=== PATIENT | female | born 1950 | race Two or more races ===

== ENCOUNTER 2019-10-10 10:06 | Inpatient (IN) | payer MEDICARE, OTHER ==
[~2019-10-10] VITALS: Ht 162.6 cm; Wt 80.7 kg
[2019-10-10] VITALS (13 sets, daily range): BP systolic 136–171; BP diastolic 61–105
[2019-10-10] MEDS ORDERED: METFORMIN HCL500 M1 ORAL (10:12)
[2019-10-10] MEDS ORDERED: LISINOPRIL5 MG ORAL (10:12)
[2019-10-10] MEDS ORDERED: ATORVASTATIN CA20 MG ORAL (10:12)
[2019-10-10] MEDS ORDERED: HYDROCHLOROTH12.5 M2 ORAL (10:12)
[2019-10-10] MEDS ORDERED: Solu-MEDROL 125mg Inj IVP ONE (10:15)
[2019-10-10 10:33] LABS: BASOPHILS % (AUTO) 0.8 % (0.0-2.0); EOSINOPHILS % (AUTO) 0.8 % (0.0-3.0); HEMATOCRIT 32.2 % (37.0-47.0); LYMPHOCYTES % (AUTO) 19.4 % (20.0-45.0); MEAN CORPUSCULAR VOLUME 87 FL (80-99); MONOCYTES % (AUTO) 4.5 % (1.0-10.0); NEUTROPHILS % (AUTO) 74.5 % (45.0-75.0); PLATELET COUNT 322 K/UL (150-450); RED BLOOD COUNT 3.69 M/UL (4.20-5.40); RED CELL DISTRIBUTION WIDTH 13.8 % (11.6-14.8); WHITE BLOOD COUNT 13.5 K/UL (4.8-10.8)
[2019-10-10 10:44] LABS: INR 1.1 (0.9-1.1)
[2019-10-10 10:45] LABS: ANION GAP 16 mmol/L (5-15); BLOOD UREA NITROGEN 35 mg/dL (7-18); CALCIUM 8.9 MG/DL (8.5-10.1); CARBON DIOXIDE 19 MMOL/L (21-32); CHLORIDE 102 MMOL/L (98-107); CREATININE 1.9 MG/DL (0.55-1.30); SODIUM 137 MMOL/L (136-145)
[2019-10-10] MEDS: Ipratropium 0.02% Inh Soln 2.5ml UD HHN SCH ×2 (10:53→10:54)
[2019-10-10] MEDS: Albuterol ud Inhalation HHN SCH ×2 (10:53→10:54)
[2019-10-10 10:56] LABS: ALANINE AMINOTRANSFERASE 90 U/L (12-78); ALBUMIN 3.3 G/DL (3.4-5.0); ALBUMIN/GLOBULIN RATIO 0.7 (1.0-2.7); ALKALINE PHOSPHATASE 248 U/L (46-116); ASPARTATE AMINO TRANSFERASE 41 U/L (15-37); BILIRUBIN,TOTAL 0.7 MG/DL (0.2-1.0)
[2019-10-10] MEDS ORDERED: Piperacillin/Tazobactam 3.375 GM in NS 110 ML IVPB ONE (12:00)
[2019-10-10] MEDS ORDERED: Miralax 17gm pkt ORAL PRN (12:30)
[2019-10-10] MEDS ORDERED: Enalaprilat 2.5mg/2ml Inj IV PRN (12:30)
[2019-10-10] MEDS ORDERED: Albuterol/Ipratropium 3ml neb HHN PRN (12:30)
[2019-10-10] MEDS ORDERED: dilTIAZem HCl 25mg/5ml Inj IV PRN (12:30)
[2019-10-10] MEDS ORDERED: Nitroglycerin Subl 0.4mg tab SL PRN (12:30)
--- NOTE | 2019-10-10 12:55 | Emergency Room Report ---
History of Present Illness General Chief Complaint: Chest Pain Source: Patient, EMS Present Illness HPI Patient presents emergency department today complaining of 1 week of worsening shortness of breath that became worse over the last couple of days. Patient also complained of chest discomfort and some coughing. Because of this patient was brought here for further evaluation by paramedics. Patient symptoms are very severe. Patient states that she has not had this before. No other modifying factors. No other associated signs and symptoms. No other complaints were noted. Allergies: Coded Allergies: No Known Allergies (Unverified , 10/10/19) Patient History Past Medical History: DM, HTN Past Surgical History: none Pertinent Family History: none Social History: Denies: smoking, alcohol use, drug use Reviewed Nursing Documentation: PMH: Agreed; PSxH: Agreed Nursing Documentation-PMH Hx Hypertension: Yes Hx Diabetes: Yes Review of Systems All Other Systems: negative except mentioned in HPI Physical Exam Vital Signs Date Time Temp Pulse Resp B/P (MAP) Pulse Ox O2 Delivery O2 Flow Rate FiO2 10/10/19 10:00 99.0 89 18 162/99 (120) 94 10/10/19 10:27 Bi-pap 10/10/19 10:43 100 100 Sp02 EP Interpretation: reviewed, abnormal - low General Appearance: alert, severe distress Head: normocephalic, atraumatic Eyes: bilateral eye PERRL ENT: normal ENT inspection, normal voice Neck: normal inspection, supple, no bony tend Respiratory: respiratory distress, crackles - at bases, wheezing, expiration Cardiovascular #1: no edema, tachycardia Gastrointestinal: normal inspection, normal bowel sounds, non tender, soft, no guarding, no hernia Genitourinary: no CVA tenderness Musculoskeletal: normal inspection, back normal, normal range of motion Neurologic: alert, responsive, no focal defects Psychiatric: normal inspection, anxious Skin: no rash Procedures Critical Care Time Critical Care Time Patient had a critical medical condition which untreated could potentially result in life or limb threatening injury. Total critical care time excluding procedures was approximately 45 minutes. Medical Decision Making Diagnostic Impression: Primary Impression: Respiratory failure Additional Impression: CHF (congestive heart failure) ER Course Patient presents emergency department today complaining of shortness of breath. Differential diagnoses include acute pneumonia, CHF, acute coronary syndrome, pneumothorax, asthma, COPD flare, just to name a few. Given the severity of the patient's presentation I felt this is a highly complex patient. This patient required extensive workup. Patient presentation showed immediate respiratory distress required my immediate attention. Patient was started on albuterol Atrovent nebulizer treatment given her respiratory distress as well as placed on BiPAP. Patient appeared improved. Patient's chest x-ray does show evidence of pulmonary congestion with elevated BNP. Patient however appears comfortable on BiPAP. Patient's BUN/creatinine is already elevated. Therefore continue to monitor the patient. Case was discussed with admitting physician. Patient will be admitted to the ICU for further management. Patient is EKG shows evidence of left bundle branch block. Patient had elevated lactic acid level. However given the lack of fever it was unlikely that patient has sepsis although this is in the differential. Blood cultures were obtained and patient was started on IV antibiotics. Unfortunately because patient was already fluid overloaded with respiratory distress we cannot give patient fluid boluses despite an elevated lactic acid level. A focused sepsis exam was performed. This was performed at 1 PM. However I am uncertain the patient actually has sepsis. Patient will be admitted to the intensive care unit once a bed is available. Labs Test 10/10/19 10:13 10/10/19 10:15 Arterial Blood pH 7.329 (7.350-7.450) Arterial Blood Partial Pressure CO2 36.5 mmHg (35.0-45.0) Arterial Blood Partial Pressure O2 254.9 mmHg (75.0-100.0) Arterial Blood HCO3 18.8 mmol/L (22.0-26.0) Arterial Blood Oxygen Saturation 99.4 % (95-100) Arterial Blood Base Excess -6.5 (-2-2) Geoffrey Test Positive White Blood Count 13.5 K/UL (4.8-10.8) Red Blood Count 3.69 M/UL (4.20-5.40) Hemoglobin 10.0 G/DL (12.0-16.0) Hematocrit 32.2 % (37.0-47.0) Mean Corpuscular Volume 87 FL (80-99) Mean Corpuscular Hemoglobin 27.2 PG (27.0-31.0) Mean Corpuscular Hemoglobin Concent 31.1 G/DL (32.0-36.0) Red Cell Distribution Width 13.8 % (11.6-14.8) Platelet Count 322 K/UL (150-450) Mean Platelet Volume 7.2 FL (6.5-10.1) Neutrophils (%) (Auto) 74.5 % (45.0-75.0) Lymphocytes (%) (Auto) 19.4 % (20.0-45.0) Monocytes (%) (Auto) 4.5 % (1.0-10.0) Eosinophils (%) (Auto) 0.8 % (0.0-3.0) Basophils (%) (Auto) 0.8 % (0.0-2.0) Prothrombin Time 11.8 SEC (9.30-11.50) Prothromb Time International Ratio 1.1 (0.9-1.1) Activated Partial Thromboplast Time 26 SEC (23-33) Sodium Level 137 MMOL/L (136-145) Potassium Level 4.0 MMOL/L (3.5-5.1) Chloride Level 102 MMOL/L (98-107) Carbon Dioxide Level 19 MMOL/L (21-32) Anion Gap 16 mmol/L (5-15) Blood Urea Nitrogen 35 mg/dL (7-18) Creatinine 1.9 MG/DL (0.55-1.30) Estimat Glomerular Filtration Rate 26.3 mL/min (>60) Glucose Level 436 MG/DL (74-106) Lactic Acid Level 5.40 mmol/L (0.4-2.0) Calcium Level 8.9 MG/DL (8.5-10.1) Total Bilirubin 0.7 MG/DL (0.2-1.0) Aspartate Amino Transf (AST/SGOT) 41 U/L (15-37) Alanine Aminotransferase (ALT/SGPT) 90 U/L (12-78) Alkaline Phosphatase 248 U/L (46-116) Troponin I 0.008 ng/mL (0.000-0.056) Pro-B-Type Natriuretic Peptide 85401 pg/mL (0-125) Total Protein 8.1 G/DL (6.4-8.2) Albumin 3.3 G/DL (3.4-5.0) Globulin 4.8 g/dL Albumin/Globulin Ratio 0.7 (1.0-2.7) Lipase 236 U/L (73-393) EKG Diagnostic Results Rate: tachycardiac Rhythm: NSR ST Segments: other - lbbb Rhythm Strip Diag. Results EP Interpretation: yes Rate: 110s Rhythm: NSR, no PVC's, no ectopy Chest X-Ray Diagnostic Results Chest X-Ray Diagnostic Results : Chest X-Ray Ordered: Yes # of Views/Limited/Complete: 1 View Indication: Shortness of Breath EP Interpretation: Yes Interpretation: no consolidation, other - Pulmonary congestion, cardiomegaly , costophrenic angle blunting. Impression: Other - Acute CHF Electronically Signed by: Electronically signed by Yony Olivas MD Last Vital Signs Date Time Temp Pulse Resp B/P (MAP) Pulse Ox O2 Delivery O2 Flow Rate FiO2 10/10/19 12:20 97.8 85 17 137/81 100 Bi-pap 10/10/19 11:13 100 Status: improved Disposition: ADMITTED INPATIENT Condition: Critical Referrals: ROBERTA MCKENZIE,REFERRING (PCP) Yony Olivas MD Oct 10, 2019 12:55
[2019-10-10 14:07] LABS: APPEARANCE,URINE CLEAR; BILIRUBIN, URINE NEGATIVE (NEGATIVE); COLOR,URINE PALE YELLOW; GLUCOSE, URINE (UA) 4+ (NEGATIVE); KETONES,URINE NEGATIVE (NEGATIVE); LEUKOCYTE ESTERASE ,URINE NEGATIVE (NEGATIVE); NITRITE,URINE NEGATIVE (NEGATIVE); PH,URINE 5 (4.5-8.0); PROTEIN,URINE 4+ (NEGATIVE); UROBILINOGEN,URINE NORMAL MG/DL (0.0-1.0)
--- NOTE | 2019-10-10 16:25 | Consultation ---
Consult Note Consult Note asked to eval for high Cr Patient seen in ICU room E. On BIPAP discussed with RN Chief Complaint: Chest Pain Patient presents emergency department today complaining of 1 week of worsening shortness of breath that became worse over the last couple of days. Patient also complained of chest discomfort and some coughing. Because of this patient was brought here for further evaluation by paramedics. Patient symptoms are very severe. Patient states that she has not had this before. No other modifying factors. No other associated signs and symptoms. No other complaints were noted. No Known Allergies (Unverified , 10/10/19) Past Medical History: DM, HTN Past Surgical History: none Pertinent Family History: none Social History: Denies: smoking, alcohol use, drug use Reviewed Nursing Documentation: PMH: Agreed; PSxH: Agreed Hx Hypertension: Yes Hx Diabetes: Yes examined data reviewed . Assessment/Plan Renal failure- Likely acute on Chronic DM / Nephropathy / Proteinuria Anemia HTN LBBB Optimize cardiac and Pulm status 2 D echo monitor I&O Antibiotics Avoid nephrotoxics Jay Severino MD Oct 10, 2019 16:25
[2019-10-10] MEDS ORDERED: NovoLOG Insulin Flexpen SUBQ SCH (16:30)
[2019-10-10] MEDS: Docusate 100mg cap ORAL SCH (18:00)
[2019-10-10 19:12] LABS: CREATINE KINASE 114 U/L (26-308)
--- NOTE | 2019-10-10 20:54 | Cardiology Progress Note ---
Assessment/Plan Assessment/Plan [id number] renal isnur ? cm lbbb chest pain isordil hydralaien combo with diuretic echo an dekg Objective Last 24 Hour Vital Signs Date Time Temp Pulse Resp B/P (MAP) Pulse Ox O2 Delivery O2 Flow Rate FiO2 10/10/19 20:00 85 10/10/19 20:00 3.0 10/10/19 20:00 Nasal Cannula 3.0 10/10/19 20:00 98.9 84 20 155/90 (111) 97 10/10/19 19:00 77 25 154/76 (102) 99 10/10/19 18:15 100 Nasal Cannula 2.0 28 10/10/19 18:00 94 29 170/94 (119) 99 10/10/19 17:00 87 25 152/94 (113) 98 10/10/19 16:00 Nasal Cannula 3.0 10/10/19 16:00 98.6 87 25 171/73 (105) 98 10/10/19 16:00 84 10/10/19 16:00 3.0 10/10/19 15:55 Bi-pap 10/10/19 15:10 98.3 87 15 148/83 100 Bi-pap 35 10/10/19 14:51 82 18 100 Facial 35 10/10/19 14:31 97.8 79 17 152/82 98 Bi-pap 35 10/10/19 13:25 97.8 81 18 137/61 95 Bi-pap 10/10/19 13:15 79 16 100 Facial 35 10/10/19 12:20 97.8 85 17 137/81 100 Bi-pap 10/10/19 11:25 89 21 100 10/10/19 11:13 98.4 86 20 138/80 100 Bi-pap 100 10/10/19 10:43 115 24 100 Facial 100 115 24 100 Bi-Pap 100 10/10/19 10:27 98.9 105 34 150/105 99 Bi-pap 10/10/19 10:27 105 34 Bi-pap 10/10/19 10:00 99.0 89 18 162/99 (120) 94 Laboratory Tests Test 10/10/19 10:13 10/10/19 10:15 10/10/19 13:25 10/10/19 13:50 Arterial Blood pH 7.329 (7.350-7.450) Arterial Blood Partial Pressure CO2 36.5 mmHg (35.0-45.0) Arterial Blood Partial Pressure O2 254.9 mmHg (75.0-100.0) H Arterial Blood HCO3 18.8 mmol/L (22.0-26.0) L Arterial Blood Oxygen Saturation 99.4 % (95-100) Arterial Blood Base Excess -6.5 (-2-2) L Geoffrey Test Positive White Blood Count 13.5 K/UL (4.8-10.8) H Red Blood Count 3.69 M/UL (4.20-5.40) L Hemoglobin 10.0 G/DL (12.0-16.0) L Hematocrit 32.2 % (37.0-47.0) L Mean Corpuscular Volume 87 FL (80-99) Mean Corpuscular Hemoglobin 27.2 PG (27.0-31.0) Mean Corpuscular Hemoglobin Concent 31.1 G/DL (32.0-36.0) L Red Cell Distribution Width 13.8 % (11.6-14.8) Platelet Count 322 K/UL (150-450) Mean Platelet Volume 7.2 FL (6.5-10.1) Neutrophils (%) (Auto) 74.5 % (45.0-75.0) Lymphocytes (%) (Auto) 19.4 % (20.0-45.0) L Monocytes (%) (Auto) 4.5 % (1.0-10.0) Eosinophils (%) (Auto) 0.8 % (0.0-3.0) Basophils (%) (Auto) 0.8 % (0.0-2.0) Prothrombin Time 11.8 SEC (9.30-11.50) H Prothromb Time International Ratio 1.1 (0.9-1.1) Activated Partial Thromboplast Time 26 SEC (23-33) Sodium Level 137 MMOL/L (136-145) Potassium Level 4.0 MMOL/L (3.5-5.1) Chloride Level 102 MMOL/L (98-107) Carbon Dioxide Level 19 MMOL/L (21-32) L Anion Gap 16 mmol/L (5-15) H Blood Urea Nitrogen 35 mg/dL (7-18) H Creatinine 1.9 MG/DL (0.55-1.30) H Estimat Glomerular Filtration Rate 26.3 mL/min (>60) Glucose Level 436 MG/DL (74-106) H Lactic Acid Level 5.40 mmol/L (0.4-2.0) H 2.90 mmol/L (0.66-2.22) H Uric Acid 7.7 MG/DL (2.6-7.2) H Calcium Level 8.9 MG/DL (8.5-10.1) Total Bilirubin 0.7 MG/DL (0.2-1.0) Aspartate Amino Transf (AST/SGOT) 41 U/L (15-37) H Alanine Aminotransferase (ALT/SGPT) 90 U/L (12-78) H Alkaline Phosphatase 248 U/L (46-116) H Total Creatine Kinase 114 U/L (26-308) Troponin I 0.008 ng/mL (0.000-0.056) Pro-B-Type Natriuretic Peptide 24909 pg/mL (0-125) H Total Protein 8.1 G/DL (6.4-8.2) Albumin 3.3 G/DL (3.4-5.0) L Globulin 4.8 g/dL Albumin/Globulin Ratio 0.7 (1.0-2.7) L Lipase 236 U/L (73-393) Urine Color Pale yellow Urine Appearance Clear Urine pH 5 (4.5-8.0) Urine Specific [place] 1.020 (1.005-1.035) Urine Protein 4+ (NEGATIVE) H Urine Glucose (UA) 4+ (NEGATIVE) H Urine Ketones Negative (NEGATIVE) Urine Blood 2+ (NEGATIVE) H Urine Nitrite Negative (NEGATIVE) Urine Bilirubin Negative (NEGATIVE) Urine Urobilinogen Normal MG/DL (0.0-1.0) Urine Leukocyte Esterase Negative (NEGATIVE) Urine RBC 2-4 /HPF (0 - 2) H Urine WBC 0-2 /HPF (0 - 2) Urine Squamous Epithelial Cells Few /LPF (NONE/OCC) Urine Bacteria Few /HPF (NONE) Urine Eosinophils None seen (NONE SEEN) Urine Osmolality 476 mOsm/kg (429-449) H Urine Random Sodium 19 mmol/L (20-110) L Microbiology Date/Time Source Procedure Growth Status 10/10/19 10:15 Nasal Nares - Final Complete 10/10/19 10:15 Nasal Nares - Final Complete Sherwin Zelaya MD Oct 10, 2019 20:54
[2019-10-10] MEDS ORDERED: Levemir Flexpen SUBQ SCH (21:00)
--- NOTE | 2019-10-10 21:01 | History and Physical Report ---
DATE OF ADMISSION: 10/10/2019 CONSULTANTS: 1. Tiana Cool M.D. 2. Sherwin Zelaya M.D. CHIEF COMPLAINT: Respiratory failure and congestive heart failure exacerbation. BRIEF HISTORY: This is a 69-year-old female, who presents to [facility] with the above-mentioned diagnosis. Currently, BiPAP in place, lethargic, sleepy, and nonverbal. REVIEW OF SYSTEMS: Unavailable. PAST MEDICAL HISTORY: Congestive heart failure. PAST SURGICAL HISTORY: Unknown. MEDICATIONS: Include aspirin, pantoprazole, heparin, insulin, nitroglycerin, morphine, Zofran, temazepam, enalapril, dextrose, and Zosyn. ALLERGIES: Denies. SOCIAL HISTORY: Unable to obtain secondary to the patient's condition. PHYSICAL EXAMINATION: GENERAL: Calm, BiPAP in place, lethargic, sleepy, slight short of breath. VITAL SIGNS: Temperature is 97 degrees, pulse 89, respirations 17, and blood pressure 152/82. CARDIOVASCULAR: No murmurs. LUNGS: Poor air exchange. ABDOMEN: Bowel sounds distant. EXTREMITIES: Shows no cyanosis or edema. NEUROLOGIC: The patient is flaccid in bed, not really following directions. LABORATORY AND DIAGNOSTIC DATA: Labs at this time show white count 13, H and H is 10 and 32, and platelets is 322,000. BMP shows BUN and creatinine of 35 and 1.9. Otherwise, now glucose 436, is diabetic. BNP is 11,960. Albumin 3.3. Troponin 0.008. INR is 1.1. PTT 26. Urinalysis shows 2+ blood, otherwise normal, 4+ protein, ____ glucose. ASSESSMENT: 1. Respiratory failure. 2. Renal insufficiency. 3. Congestive heart failure. 4. Anemia. 5. Diabetes. 6. Malnutrition. PLAN: 1. BiPAP. 2. Pulmonary treatment. 3. Antibiotics as ordered. 4. Dietary followup. 5. Blood sugar and blood pressure control. 6. Endocrine and Nephrology evaluation. 7. We will continue to follow the patient. Dyllan King D.O. DR: LEV JOB#: [id number] CC:
[2019-10-10] MEDS: NovoLOG Insulin Flexpen SUBQ SCH ×2 (21:09→21:10)
[2019-10-10] MEDS: Heparin 5000 units/ml inj SUBQ SCH (21:11)
[2019-10-10] MEDS: HydrALAZINE 10mg Tab ORAL SCH (21:11)
--- NOTE | 2019-10-10 23:15 | Consultation ---
DATE OF CONSULTATION: 10/10/2019 CARDIOLOGY CONSULTATION CONSULTING PHYSICIAN: Sherwin Zelaya M.D. REFERRING PHYSICIAN: 1. Tiana Cool M.D. 2. Dyllan King D.O. REASON FOR REFERRAL: Shortness of breath. HISTORY OF PRESENT ILLNESS: This is a middle-aged female with history of diabetes and hypertension who apparently has a problem with shortness of breath, was seen in clinic, was transferred to [facility] where she was there for few days. Extensive testing apparently was done. She does not remember which one and the patient was discharged home. At home, she took some medications, but not the one that she was prescribed on at [facility]. She got short of breath. She presented to the hospital here. She does have some pain in the chest at times, not clear. It does not appear to be pain on exertion. She seems to indicate she had more shortness of breath. No more fatigue on exertion than any shortness of breath or chest pain. Otherwise, she is ambulatory she does not have any chest pains, when she is walking around gets shortness of breath. She uses 2 pillows because of orthopnea. She has PND episodes. She does not have any dizziness on standing. No heart pounding or palpitation. PAST MEDICAL HISTORY: Diabetes, high blood pressure. No history of heart attack. No cancer. No stroke. No hepatitis or tuberculosis. No asthma or emphysema. No ulcers. No kidney problems, liver problems, thyroid problems, anemia, or arthritis. ALLERGIES: No allergies to medications. SOCIAL HISTORY: She does not smoke or drink alcoholic beverages. PHYSICAL EXAMINATION: GENERAL: Shows to be an elderly female, in no respiratory distress. NECK: Supple. There is crackles noted in the right more so than the left. CARDIAC: Regular rhythm. A faint systolic holosystolic regurgitant murmur is noted. ABDOMEN: Soft, nontender. Positive bowel sounds. EXTREMITIES: There is trace edema. NEUROLOGICAL: She is awake, alert, responsive, in no apparent respiratory distress. LABORATORY AND DIAGNOSTIC DATA: White count 13.5, hemoglobin 10, and platelet count of 322. ABG is 7.32, pCO2 36, pO2 251, bicarbonate of 18. Sodium 137, potassium 4.0, chloride 102, bicarb 19, BUN 35, creatinine 1.9 glucose of 436. Lactic acid of 5.4 and subsequently [place] [address]. Alkaline phosphatase of 248, AST of 41, ALT of 90, and albumin of 4.8, CK of 114, INR 1.1 and PTT of 26. Chest x-ray, unfortunately not available for review. Reported per the emergency physician is congestive heart failure. ASSESSMENT AND PLAN: 1. Probable congestive heart failure symptoms. 2. Left bundle-branch conduction defect on EKG questionable chronicity. 3. Diabetes mellitus. 4. Hypertension. This patient was seen in cardiac consultation. The patient is concerning for congestive heart failure, left bundle-branch conduction defect, maybe suggestive of cardiomyopathy. She is on some medications at home including benazepril and some diuretics and insulin. Her blood pressures is extensively elevated and her creatinine is up. Possibly benazepril was discontinued because of her renal insufficiency. She was started on some Isordil and nitroglycerin paste and hydralazine combination with diuretics. Echocardiogram will be ordered. Serial enzymes, EKGs, and she may require further testing including a stress test if not performed. Sherwin Zelaya M.D. DR: Emery JOB#: [id number] CC:
[2019-10-11] VITALS (24 sets, daily range): BP systolic 108–171; BP diastolic 54–106
[2019-10-11] MEDS: Morphine Sulfate 2mg/ml Inj(IV/IM USE ONLY) IVP PRN ×2 (00:35→21:11)
[2019-10-11 04:08] LABS: HEMATOCRIT 26.3 % (37.0-47.0); HEMOGLOBIN 8.5 G/DL (12.0-16.0); MEAN CORPUSCULAR VOLUME 84 FL (80-99); PLATELET COUNT 244 K/UL (150-450); RED BLOOD COUNT 3.12 M/UL (4.20-5.40); RED CELL DISTRIBUTION WIDTH 13.4 % (11.6-14.8); WHITE BLOOD COUNT 16.2 K/UL (4.8-10.8)
[2019-10-11 04:22] LABS: INR 1.1 (0.9-1.1)
[2019-10-11 04:46] LABS: ALANINE AMINOTRANSFERASE 71 U/L (12-78); ALBUMIN 2.8 G/DL (3.4-5.0); ALBUMIN/GLOBULIN RATIO 0.7 (1.0-2.7); ALKALINE PHOSPHATASE 187 U/L (46-116); ANION GAP 10 mmol/L (5-15); ASPARTATE AMINO TRANSFERASE 37 U/L (15-37); BILIRUBIN,TOTAL 0.4 MG/DL (0.2-1.0); BLOOD UREA NITROGEN 40 mg/dL (7-18); CALCIUM 8.8 MG/DL (8.5-10.1); CARBON DIOXIDE 24 MMOL/L (21-32); CHLORIDE 108 MMOL/L (98-107); CHOLESTEROL 142 MG/DL (< 200); CREATININE 1.9 MG/DL (0.55-1.30); FERRITIN 239 NG/ML (8-388); HDL CHOLESTEROL 35 MG/DL (40-60); POTASSIUM 3.8 MMOL/L (3.5-5.1); SODIUM 142 MMOL/L (136-145); TRIGLYCERIDES 57 MG/DL (30-150)
[2019-10-11 04:47] LABS: GAMMA GLUTAMYL TRANSPEPTIDASE 154 U/L (5-85); PHOSPHORUS 3.7 MG/DL (2.5-4.9)
[2019-10-11] MEDS: HydrALAZINE 10mg Tab ORAL SCH ×3 (05:27→21:12)
[2019-10-11] MEDS: Heparin 5000 units/ml inj SUBQ SCH (05:28)
[2019-10-11] MEDS: NovoLOG Insulin Flexpen SUBQ SCH ×7 (05:28→21:13)
[2019-10-11 06:12] LABS: % IRON SATURATION 9 % (15-50); IRON 25 ug/dL (50-175); TOTAL IRON BINDING CAPACITY 268 ug/dL (250-450)
[2019-10-11] MEDS ORDERED: Heparin 25,000u/D5W 500ml 500 ML IV SCH ×3 (06:15→21:00)
[2019-10-11] MEDS ORDERED: Heparin 5000 units/ml inj IV SCH ×3 (06:15→21:00)
[2019-10-11] MEDS: Docusate 100mg cap ORAL SCH ×3 (09:12→17:50)
[2019-10-11] MEDS: Aspirin Baby 81mg ORAL SCH (09:12)
--- NOTE | 2019-10-11 10:43 | Consultation ---
History of Present Illness General Date patient seen: Oct 10, 2019 Chief Complaint: Chest Pain Present Illness HPI 69 year old female with hx of HTN and diabetes presented to emergency department today complaining of 1 week of worsening shortness of breath that became worse over the last couple of days and chest pain. Her CXR showed cardiomegaly and pulmonary edema. She was put on BIPAP and admitted to ICU for further management. Allergies: Coded Allergies: No Known Allergies (Unverified , 10/10/19) Medication History Scheduled Atorvastatin Calcium* (Atorvastatin Calcium*), Unknown Dose ORAL BEDTIME, ( Reported) Miscellaneous Medications Hydrochlorothiazide* (Hydrochlorothiazide*), Unknown Dose ORAL, (Reported) Lisinopril (Lisinopril*), Unknown Dose ORAL, (Reported) Metformin Hcl* (Metformin Hcl*), Unknown Dose ORAL, (Reported) Patient History Healthcare decision maker Resuscitation status Advanced Directive on File Past Medical/Surgical History Past Medical/Surgical History: (1) History of hypertension (2) Diabetes mellitus Review of Systems All Other Systems: negative except mentioned in HPI Physical Exam General Appearance: WD/WN, no apparent distress Lines, tubes and drains: peripheral HEENT: normocephalic, atraumatic Neck: non-tender, normal alignment Respiratory/Chest: chest wall non-tender, crackles/rales Breasts: no masses Cardiovascular/Chest: normal peripheral pulses Abdomen: normal bowel sounds, non tender Genitourinary/Rectal: normal genital exam Extremities: normal range of motion Last 24 Hour Vital Signs Date Time Temp Pulse Resp B/P (MAP) Pulse Ox O2 Delivery O2 Flow Rate FiO2 10/11/19 10:00 76 21 130/59 (82) 97 10/11/19 09:12 127/55 10/11/19 09:00 76 23 130/59 (82) 97 10/11/19 08:36 97 Nasal Cannula 2.0 28 10/11/19 08:00 3.0 10/11/19 08:00 Nasal Cannula 3.0 10/11/19 08:00 97.7 76 16 127/55 (79) 96 10/11/19 07:28 79 10/11/19 07:00 76 15 147/77 (100) 100 10/11/19 06:00 75 20 125/68 (87) 98 10/11/19 05:27 161/67 10/11/19 05:00 65 16 161/67 (98) 99 10/11/19 04:00 Nasal Cannula 3.0 10/11/19 04:00 98.6 76 23 153/84 (107) 98 10/11/19 04:00 3.0 10/11/19 04:00 77 10/11/19 03:00 81 24 165/89 (114) 98 10/11/19 02:00 58 15 108/54 (72) 96 10/11/19 01:00 62 17 143/63 (89) 95 10/11/19 00:45 77 20 98 Facial 30 10/11/19 00:00 30 10/11/19 00:00 98.1 80 26 154/106 (122) 94 10/11/19 00:00 Nasal Cannula 3.0 10/11/19 00:00 72 10/10/19 23:03 100 Nasal Cannula 2.0 28 10/10/19 23:00 84 23 155/82 (106) 96 10/10/19 22:00 81 20 136/82 (100) 94 10/10/19 21:48 140/84 10/10/19 21:11 140/84 10/10/19 21:00 80 22 140/89 (106) 96 10/10/19 20:00 85 10/10/19 20:00 3.0 10/10/19 20:00 Nasal Cannula 3.0 10/10/19 20:00 98.9 84 20 155/90 (111) 97 10/10/19 19:00 77 25 154/76 (102) 99 10/10/19 18:15 100 Nasal Cannula 2.0 28 10/10/19 18:00 94 29 170/94 (119) 99 10/10/19 17:00 87 25 152/94 (113) 98 10/10/19 16:00 Nasal Cannula 3.0 10/10/19 16:00 98.6 87 25 171/73 (105) 98 10/10/19 16:00 84 10/10/19 16:00 3.0 10/10/19 15:55 Bi-pap 10/10/19 15:10 98.3 87 15 148/83 100 Bi-pap 35 10/10/19 14:51 82 18 100 Facial 35 10/10/19 14:31 97.8 79 17 152/82 98 Bi-pap 35 10/10/19 13:25 97.8 81 18 137/61 95 Bi-pap 10/10/19 13:15 79 16 100 Facial 35 10/10/19 12:20 97.8 85 17 137/81 100 Bi-pap 10/10/19 11:25 89 21 100 10/10/19 11:13 98.4 86 20 138/80 100 Bi-pap 100 10/10/19 10:43 115 24 100 Facial 100 115 24 100 Bi-Pap 100 Intake and Output 10/10/19 10/11/19 18:59 06:59 Intake Total 120 ml 200 ml Output Total 900 ml Balance 120 ml -700 ml Intake Oral 200 ml Other 120 ml Output Urine Total 900 ml # Voids 2 3 Laboratory Tests Test 10/10/19 13:25 10/10/19 13:50 10/10/19 22:20 10/11/19 04:00 Lactic Acid Level 2.90 mmol/L (0.66-2.22) H 2.00 mmol/L (0.4-2.0) 1.20 mmol/L (0.4-2.0) Urine Color Pale yellow Urine Appearance Clear Urine pH 5 (4.5-8.0) Urine Specific [place] 1.020 (1.005-1.035) Urine Protein 4+ (NEGATIVE) H Urine Glucose (UA) 4+ (NEGATIVE) H Urine Ketones Negative (NEGATIVE) Urine Blood 2+ (NEGATIVE) H Urine Nitrite Negative (NEGATIVE) Urine Bilirubin Negative (NEGATIVE) Urine Urobilinogen Normal MG/DL (0.0-1.0) Urine Leukocyte Esterase Negative (NEGATIVE) Urine RBC 2-4 /HPF (0 - 2) H Urine WBC 0-2 /HPF (0 - 2) Urine Squamous Epithelial Cells Few /LPF (NONE/OCC) Urine Bacteria Few /HPF (NONE) Urine Eosinophils None seen (NONE SEEN) Urine Osmolality 476 mOsm/kg (429-449) H Urine Random Creatinine Pending Urine Random Microalbumin Pending Urine Random Sodium 19 mmol/L (20-110) L Urine Microalbumin/Creatinine Ratio Pending White Blood Count 16.2 K/UL (4.8-10.8) H Red Blood Count 3.12 M/UL (4.20-5.40) L Hemoglobin 8.5 G/DL (12.0-16.0) L Hematocrit 26.3 % (37.0-47.0) L Mean Corpuscular Volume 84 FL (80-99) Mean Corpuscular Hemoglobin 27.2 PG (27.0-31.0) Mean Corpuscular Hemoglobin Concent 32.3 G/DL (32.0-36.0) Red Cell Distribution Width 13.4 % (11.6-14.8) Platelet Count 244 K/UL (150-450) Mean Platelet Volume 6.9 FL (6.5-10.1) Neutrophils (%) (Auto) % (45.0-75.0) Lymphocytes (%) (Auto) % (20.0-45.0) Monocytes (%) (Auto) % (1.0-10.0) Eosinophils (%) (Auto) % (0.0-3.0) Basophils (%) (Auto) % (0.0-2.0) Differential Total Cells Counted 100 Neutrophils % (Manual) 88 % (45-75) H Lymphocytes % (Manual) 9 % (20-45) L Monocytes % (Manual) 3 % (1-10) Eosinophils % (Manual) 0 % (0-3) Basophils % (Manual) 0 % (0-2) Band Neutrophils 0 % (0-8) Platelet Estimate Adequate Platelet Morphology Normal Hypochromasia 1+ Prothrombin Time 12.0 SEC (9.30-11.50) H Prothromb Time International Ratio 1.1 (0.9-1.1) Activated Partial Thromboplast Time 26 SEC (23-33) Sodium Level 142 MMOL/L (136-145) Potassium Level 3.8 MMOL/L (3.5-5.1) Chloride Level 108 MMOL/L (98-107) H Carbon Dioxide Level 24 MMOL/L (21-32) Anion Gap 10 mmol/L (5-15) Blood Urea Nitrogen 40 mg/dL (7-18) H Creatinine 1.9 MG/DL (0.55-1.30) H Estimat Glomerular Filtration Rate 26.3 mL/min (>60) Glucose Level 173 MG/DL (74-106) #H Hemoglobin A1c 11.1 % (4.3-6.0) H Uric Acid 8.5 MG/DL (2.6-7.2) H Calcium Level 8.8 MG/DL (8.5-10.1) Phosphorus Level 3.7 MG/DL (2.5-4.9) Magnesium Level 2.8 MG/DL (1.8-2.4) H Iron Level 25 ug/dL (50-175) L Total Iron Binding Capacity 268 ug/dL (250-450) Percent Iron Saturation 9 % (15-50) L Unsaturated Iron Binding 243 ug/dL (112-346) Ferritin 239 NG/ML (8-388) Total Bilirubin 0.4 MG/DL (0.2-1.0) Gamma Glutamyl Transpeptidase 154 U/L (5-85) H Aspartate Amino Transf (AST/SGOT) 37 U/L (15-37) Alanine Aminotransferase (ALT/SGPT) 71 U/L (12-78) Alkaline Phosphatase 187 U/L (46-116) H Troponin I 6.090 ng/mL (0.000-0.056) C-Reactive Protein, Quantitative 3.8 mg/dL (0.00-0.90) H Pro-B-Type Natriuretic Peptide 86193 pg/mL (0-125) H Total Protein 7.1 G/DL (6.4-8.2) Albumin 2.8 G/DL (3.4-5.0) L Globulin 4.3 g/dL Albumin/Globulin Ratio 0.7 (1.0-2.7) L Triglycerides Level 57 MG/DL (30-150) Cholesterol Level 142 MG/DL (< 200) LDL Cholesterol 87 mg/dL (<100) HDL Cholesterol 35 MG/DL (40-60) L Cholesterol/HDL Ratio 4.1 (3.3-4.4) Vitamin B12 Level 920 PG/ML (193-986) Folate 10.6 NG/ML (8.6-58.9) Thyroid Stimulating Hormone (TSH) 3.523 uiU/mL (0.358-3.740) Height (Feet): 5 Height (Inches): 4.00 Weight (Pounds): 178 Medications Current Medications Medications (Trade) Dose Ordered Sig/[place] Route PRN Reason Start Time Stop Time Status Last Admin Dose Admin Acetaminophen (Tylenol) 650 mg Q4H PRN ORAL FEVER 10/10/19 12:30 11/09/19 12:29 Albuterol/ Ipratropium (Albuterol/ Ipratropium) 3 ml Q4H PRN HHN Shortness of Breath 10/10/19 12:30 10/15/19 12:29 Allopurinol (Allopurinol) 300 mg DAILY ORAL 10/11/19 09:00 11/10/19 08:59 10/11/19 09:11 Aspirin (ASA) 162 mg DAILY ORAL 10/11/19 09:00 11/10/19 08:59 10/11/19 09:12 Atorvastatin Calcium (Lipitor) 80 mg BEDTIME ORAL 10/11/19 21:00 11/10/19 20:59 Dextrose (Dextrose 50%) 25 ml Q30M PRN IV Hypoglycemia 10/10/19 19:00 11/09/19 18:59 Dextrose (Dextrose 50%) 50 ml Q30M PRN IV Hypoglycemia 10/10/19 19:00 11/09/19 18:59 Diltiazem HCl (Cardizem) 10 mg Q1H PRN IV heart rate more than 120, 10/10/19 12:30 11/09/19 12:29 Docusate Sodium (Colace) 100 mg THREE TIMES A DAY ORAL 10/10/19 18:00 11/09/19 17:59 10/11/19 09:12 Enalaprilat (Vasotec) 2.5 mg Q6H PRN IV sbp more than 160 10/10/19 12:30 11/09/19 12:29 Furosemide (Lasix) 20 mg EVERY 12 HOURS IV 10/10/19 21:00 11/09/19 20:59 10/11/19 09:11 Heparin Sodium/ Dextrose 500 ml @ 19.391 mls/ hr ADJUST PER PROTOCOL IV 10/11/19 06:15 11/10/19 06:14 10/11/19 06:48 Hydralazine HCl (Apresoline) 10 mg Q8HR ORAL 10/10/19 22:00 11/09/19 21:59 10/11/19 05:27 Insulin Aspart (NovoLOG) BEFORE MEALS AND HS SUBQ 10/10/19 21:00 11/09/19 20:59 10/11/19 05:28 Insulin Aspart (NovoLOG) 10 units BEFORE MEALS SUBQ 10/10/19 20:00 11/09/19 19:59 10/11/19 05:29 Insulin Detemir (Levemir) 30 units BEDTIME SUBQ 10/10/19 21:00 11/09/19 20:59 10/10/19 21:09 Isosorbide Dinitrate (Isordil) 30 mg TID ORAL 10/10/19 20:59 11/09/19 20:58 10/11/19 09:12 Morphine Sulfate (Morphine Sulfate) 2 mg Q4H PRN IVP severe Pain (Pain Scale 7-10) 10/10/19 12:30 10/17/19 12:29 10/11/19 00:35 Nateglinide (Starlix) 120 mg TIAC ORAL 10/10/19 16:30 11/09/19 16:29 10/11/19 05:27 Nitroglycerin (Ntg) 0.4 mg Q5M PRN SL Prn Chest Pain 10/10/19 12:30 11/09/19 12:29 Ondansetron HCl (Zofran) 4 mg Q6H PRN IVP Nausea & Vomiting 10/10/19 12:30 11/09/19 12:29 Pantoprazole (Protonix) 40 mg BID ORAL 10/10/19 18:00 11/10/19 08:59 10/11/19 09:11 Polyethylene Glycol (Miralax) 17 gm DAILYPRN PRN ORAL Constipation 10/10/19 12:30 11/09/19 12:29 Temazepam (Restoril) 15 mg HSPRN PRN ORAL Insomnia 10/10/19 12:30 10/17/19 12:29 10/10/19 21:11 Assessment/Plan Problem List: (1) Acute respiratory failure ICD Codes: J96.00 - Acute respiratory failure, unspecified whether with hypoxia or hypercapnia SNOMED: 83927141 (2) ACS (acute coronary syndrome) ICD Codes: I24.9 - Acute ischemic heart disease, unspecified SNOMED: 851029222 (3) CHF (congestive heart failure) ICD Codes: I50.9 - Heart failure, unspecified SNOMED: 40296646 (4) Diabetes mellitus ICD Codes: E11.9 - Type 2 diabetes mellitus without complications SNOMED: 04040956 (5) History of hypertension ICD Codes: Z86.79 - Personal history of other diseases of the circulatory system SNOMED: 253317047 Assessment/Plan: Echocardiogram titrate bipap and fio2 to sat of 92% cardiology evaluation optimize cardiac meds sliding scale diabetic diet dvt prophylaxis. Tiana Cool MD Oct 11, 2019 10:43
--- NOTE | 2019-10-11 10:47 | Pulmonolgy Critical Care Note ---
Critical Care - Asmt/Plan Problems: (1) Acute respiratory failure (2) CHF (congestive heart failure) (3) ACS (acute coronary syndrome) (4) Moderate pulmonary arterial systolic hypertension (5) Diabetic nephropathy (6) Diabetes mellitus (7) History of hypertension Respiratory: monitor respiratory rate, adjust FIO2, CXR Cardiac: continue pressors, continue to monitor HR/BP, other - echo reviewed: EF of 65 Gastrointestinal: continue feedings/current rate Endocrine: monitor blood sugar, continue sliding scale insulin Neurologic: PRN Ativan, PRN Morphine, keep patient comfortable Prophylaxis: Protonix Disposition: keep in ICU Notes Reviewed: food safety director, cardio, renal Discussed with: nurses, consultants, disease case managercost manager - Objective Last 24 Hour Vital Signs Date Time Temp Pulse Resp B/P (MAP) Pulse Ox O2 Delivery O2 Flow Rate FiO2 10/11/19 10:00 76 21 130/59 (82) 97 10/11/19 09:12 127/55 10/11/19 09:00 76 23 130/59 (82) 97 10/11/19 08:36 97 Nasal Cannula 2.0 28 10/11/19 08:00 3.0 10/11/19 08:00 Nasal Cannula 3.0 10/11/19 08:00 97.7 76 16 127/55 (79) 96 10/11/19 07:28 79 10/11/19 07:00 76 15 147/77 (100) 100 10/11/19 06:00 75 20 125/68 (87) 98 10/11/19 05:27 161/67 10/11/19 05:00 65 16 161/67 (98) 99 10/11/19 04:00 Nasal Cannula 3.0 10/11/19 04:00 98.6 76 23 153/84 (107) 98 10/11/19 04:00 3.0 10/11/19 04:00 77 10/11/19 03:00 81 24 165/89 (114) 98 10/11/19 02:00 58 15 108/54 (72) 96 10/11/19 01:00 62 17 143/63 (89) 95 10/11/19 00:45 77 20 98 Facial 30 10/11/19 00:00 30 10/11/19 00:00 98.1 80 26 154/106 (122) 94 10/11/19 00:00 Nasal Cannula 3.0 10/11/19 00:00 72 10/10/19 23:03 100 Nasal Cannula 2.0 28 10/10/19 23:00 84 23 155/82 (106) 96 10/10/19 22:00 81 20 136/82 (100) 94 10/10/19 21:48 140/84 10/10/19 21:11 140/84 10/10/19 21:00 80 22 140/89 (106) 96 10/10/19 20:00 85 10/10/19 20:00 3.0 10/10/19 20:00 Nasal Cannula 3.0 10/10/19 20:00 98.9 84 20 155/90 (111) 97 10/10/19 19:00 77 25 154/76 (102) 99 10/10/19 18:15 100 Nasal Cannula 2.0 28 10/10/19 18:00 94 29 170/94 (119) 99 10/10/19 17:00 87 25 152/94 (113) 98 10/10/19 16:00 Nasal Cannula 3.0 10/10/19 16:00 98.6 87 25 171/73 (105) 98 10/10/19 16:00 84 10/10/19 16:00 3.0 10/10/19 15:55 Bi-pap 10/10/19 15:10 98.3 87 15 148/83 100 Bi-pap 35 10/10/19 14:51 82 18 100 Facial 35 10/10/19 14:31 97.8 79 17 152/82 98 Bi-pap 35 10/10/19 13:25 97.8 81 18 137/61 95 Bi-pap 10/10/19 13:15 79 16 100 Facial 35 10/10/19 12:20 97.8 85 17 137/81 100 Bi-pap 10/10/19 11:25 89 21 100 10/10/19 11:13 98.4 86 20 138/80 100 Bi-pap 100 Status: awake Condition: critical HEENT: atraumatic, normocephalic Lungs: clear Heart: HR/BP stable, regular Abdomen: soft, feeding tube Extremities: edema Decubiti: location Micro: Microbiology Date/Time Source Procedure Growth Status 10/10/19 10:15 Nasal Nares - Final Complete 10/10/19 10:15 Nasal Nares - Final Complete Accucheck: 132 Critical Care - Subjective Interval Events: off bipap, on Nasal canula FI02: 28 Vent Support Mode: BiLevel Sputum Amount: None I&O: Intake and Output 10/10/19 10/11/19 18:59 06:59 Intake Total 120 ml 200 ml Output Total 900 ml Balance 120 ml -700 ml Intake Oral 200 ml Other 120 ml Output Urine Total 900 ml # Voids 2 3 CXR: pulmonary edema, cardiomegaly Labs: Laboratory Tests Test 10/10/19 13:25 10/10/19 13:50 10/10/19 22:20 10/11/19 04:00 Lactic Acid Level 2.90 mmol/L (0.66-2.22) H 2.00 mmol/L (0.4-2.0) 1.20 mmol/L (0.4-2.0) Urine Color Pale yellow Urine Appearance Clear Urine pH 5 (4.5-8.0) Urine Specific [place] 1.020 (1.005-1.035) Urine Protein 4+ (NEGATIVE) H Urine Glucose (UA) 4+ (NEGATIVE) H Urine Ketones Negative (NEGATIVE) Urine Blood 2+ (NEGATIVE) H Urine Nitrite Negative (NEGATIVE) Urine Bilirubin Negative (NEGATIVE) Urine Urobilinogen Normal MG/DL (0.0-1.0) Urine Leukocyte Esterase Negative (NEGATIVE) Urine RBC 2-4 /HPF (0 - 2) H Urine WBC 0-2 /HPF (0 - 2) Urine Squamous Epithelial Cells Few /LPF (NONE/OCC) Urine Bacteria Few /HPF (NONE) Urine Eosinophils None seen (NONE SEEN) Urine Osmolality 476 mOsm/kg (429-449) H Urine Random Creatinine Pending Urine Random Microalbumin Pending Urine Random Sodium 19 mmol/L (20-110) L Urine Microalbumin/Creatinine Ratio Pending White Blood Count 16.2 K/UL (4.8-10.8) H Red Blood Count 3.12 M/UL (4.20-5.40) L Hemoglobin 8.5 G/DL (12.0-16.0) L Hematocrit 26.3 % (37.0-47.0) L Mean Corpuscular Volume 84 FL (80-99) Mean Corpuscular Hemoglobin 27.2 PG (27.0-31.0) Mean Corpuscular Hemoglobin Concent 32.3 G/DL (32.0-36.0) Red Cell Distribution Width 13.4 % (11.6-14.8) Platelet Count 244 K/UL (150-450) Mean Platelet Volume 6.9 FL (6.5-10.1) Neutrophils (%) (Auto) % (45.0-75.0) Lymphocytes (%) (Auto) % (20.0-45.0) Monocytes (%) (Auto) % (1.0-10.0) Eosinophils (%) (Auto) % (0.0-3.0) Basophils (%) (Auto) % (0.0-2.0) Differential Total Cells Counted 100 Neutrophils % (Manual) 88 % (45-75) H Lymphocytes % (Manual) 9 % (20-45) L Monocytes % (Manual) 3 % (1-10) Eosinophils % (Manual) 0 % (0-3) Basophils % (Manual) 0 % (0-2) Band Neutrophils 0 % (0-8) Platelet Estimate Adequate Platelet Morphology Normal Hypochromasia 1+ Prothrombin Time 12.0 SEC (9.30-11.50) H Prothromb Time International Ratio 1.1 (0.9-1.1) Activated Partial Thromboplast Time 26 SEC (23-33) Sodium Level 142 MMOL/L (136-145) Potassium Level 3.8 MMOL/L (3.5-5.1) Chloride Level 108 MMOL/L (98-107) H Carbon Dioxide Level 24 MMOL/L (21-32) Anion Gap 10 mmol/L (5-15) Blood Urea Nitrogen 40 mg/dL (7-18) H Creatinine 1.9 MG/DL (0.55-1.30) H Estimat Glomerular Filtration Rate 26.3 mL/min (>60) Glucose Level 173 MG/DL (74-106) #H Hemoglobin A1c 11.1 % (4.3-6.0) H Uric Acid 8.5 MG/DL (2.6-7.2) H Calcium Level 8.8 MG/DL (8.5-10.1) Phosphorus Level 3.7 MG/DL (2.5-4.9) Magnesium Level 2.8 MG/DL (1.8-2.4) H Iron Level 25 ug/dL (50-175) L Total Iron Binding Capacity 268 ug/dL (250-450) Percent Iron Saturation 9 % (15-50) L Unsaturated Iron Binding 243 ug/dL (112-346) Ferritin 239 NG/ML (8-388) Total Bilirubin 0.4 MG/DL (0.2-1.0) Gamma Glutamyl Transpeptidase 154 U/L (5-85) H Aspartate Amino Transf (AST/SGOT) 37 U/L (15-37) Alanine Aminotransferase (ALT/SGPT) 71 U/L (12-78) Alkaline Phosphatase 187 U/L (46-116) H Troponin I 6.090 ng/mL (0.000-0.056) C-Reactive Protein, Quantitative 3.8 mg/dL (0.00-0.90) H Pro-B-Type Natriuretic Peptide 99098 pg/mL (0-125) H Total Protein 7.1 G/DL (6.4-8.2) Albumin 2.8 G/DL (3.4-5.0) L Globulin 4.3 g/dL Albumin/Globulin Ratio 0.7 (1.0-2.7) L Triglycerides Level 57 MG/DL (30-150) Cholesterol Level 142 MG/DL (< 200) LDL Cholesterol 87 mg/dL (<100) HDL Cholesterol 35 MG/DL (40-60) L Cholesterol/HDL Ratio 4.1 (3.3-4.4) Vitamin B12 Level 920 PG/ML (193-986) Folate 10.6 NG/ML (8.6-58.9) Thyroid Stimulating Hormone (TSH) 3.523 uiU/mL (0.358-3.740) Tiana Cool MD Oct 11, 2019 10:47
--- NOTE | 2019-10-11 12:51 | Nephrology Progress Note ---
Assessment/Plan Problem List: (1) Renal failure (ARF), acute on chronic (2) Diabetic nephropathy Assessment: A1c 11 ! (3) History of hypertension (4) ACS (acute coronary syndrome) Assessment: troponin elevated (5) CHF (congestive heart failure) (6) Left bundle branch block (LBBB) Assessment Renal failure- Likely acute on Chronic DM / Nephropathy / Proteinuria Anemia HTN LBBB Plan Optimize cardiac and Pulm status 2 D echo monitor I&O Antibiotics Avoid nephrotoxics Due transfer to higher level care for cath Subjective ROS Limited/Unobtainable: No Constitutional: Reports: malaise, weakness Objective Objective Last 24 Hour Vital Signs Date Time Temp Pulse Resp B/P (MAP) Pulse Ox O2 Delivery O2 Flow Rate FiO2 10/11/19 12:00 3.0 10/11/19 12:00 98.1 76 25 154/91 (112) 99 10/11/19 12:00 Nasal Cannula 3.0 10/11/19 11:22 79 10/11/19 11:00 77 21 144/78 (100) 97 10/11/19 10:00 76 21 130/59 (82) 97 10/11/19 09:12 127/55 10/11/19 09:00 76 23 130/59 (82) 97 10/11/19 08:36 97 Nasal Cannula 2.0 28 10/11/19 08:00 3.0 10/11/19 08:00 Nasal Cannula 3.0 10/11/19 08:00 97.7 76 16 127/55 (79) 96 10/11/19 07:28 79 10/11/19 07:00 76 15 147/77 (100) 100 10/11/19 06:00 75 20 125/68 (87) 98 10/11/19 05:27 161/67 10/11/19 05:00 65 16 161/67 (98) 99 10/11/19 04:00 Nasal Cannula 3.0 10/11/19 04:00 98.6 76 23 153/84 (107) 98 10/11/19 04:00 3.0 10/11/19 04:00 77 10/11/19 03:00 81 24 165/89 (114) 98 10/11/19 02:00 58 15 108/54 (72) 96 10/11/19 01:00 62 17 143/63 (89) 95 10/11/19 00:45 77 20 98 Facial 30 10/11/19 00:00 30 10/11/19 00:00 98.1 80 26 154/106 (122) 94 10/11/19 00:00 Nasal Cannula 3.0 10/11/19 00:00 72 10/10/19 23:03 100 Nasal Cannula 2.0 28 10/10/19 23:00 84 23 155/82 (106) 96 10/10/19 22:00 81 20 136/82 (100) 94 10/10/19 21:48 140/84 10/10/19 21:11 140/84 10/10/19 21:00 80 22 140/89 (106) 96 10/10/19 20:00 85 10/10/19 20:00 3.0 10/10/19 20:00 Nasal Cannula 3.0 10/10/19 20:00 98.9 84 20 155/90 (111) 97 10/10/19 19:00 77 25 154/76 (102) 99 10/10/19 18:15 100 Nasal Cannula 2.0 28 10/10/19 18:00 94 29 170/94 (119) 99 10/10/19 17:00 87 25 152/94 (113) 98 10/10/19 16:00 Nasal Cannula 3.0 10/10/19 16:00 98.6 87 25 171/73 (105) 98 10/10/19 16:00 84 10/10/19 16:00 3.0 10/10/19 15:55 Bi-pap 10/10/19 15:10 98.3 87 15 148/83 100 Bi-pap 35 10/10/19 14:51 82 18 100 Facial 35 10/10/19 14:31 97.8 79 17 152/82 98 Bi-pap 35 10/10/19 13:25 97.8 81 18 137/61 95 Bi-pap 10/10/19 13:15 79 16 100 Facial 35 Intake and Output 10/10/19 10/11/19 19:00 07:00 Intake Total 120 ml 203.8782 ml Output Total 900 ml Balance 120 ml -696.1218 ml Intake Oral 200 ml IV Total 3.8782 ml Other 120 ml Output Urine Total 900 ml # Voids 2 3 Current Medications Medications (Trade) Dose Ordered Sig/[place] Route PRN Reason Start Time Stop Time Status Last Admin Dose Admin Acetaminophen (Tylenol) 650 mg Q4H PRN ORAL FEVER 10/10/19 12:30 11/09/19 12:29 Albuterol/ Ipratropium (Albuterol/ Ipratropium) 3 ml Q4H PRN HHN Shortness of Breath 10/10/19 12:30 10/15/19 12:29 Allopurinol (Allopurinol) 300 mg DAILY ORAL 10/11/19 09:00 11/10/19 08:59 10/11/19 09:11 Aspirin (ASA) 162 mg DAILY ORAL 10/11/19 09:00 11/10/19 08:59 10/11/19 09:12 Atorvastatin Calcium (Lipitor) 80 mg BEDTIME ORAL 10/11/19 21:00 11/10/19 20:59 Dextrose (Dextrose 50%) 25 ml Q30M PRN IV Hypoglycemia 10/10/19 19:00 11/09/19 18:59 Dextrose (Dextrose 50%) 50 ml Q30M PRN IV Hypoglycemia 10/10/19 19:00 11/09/19 18:59 Diltiazem HCl (Cardizem) 10 mg Q1H PRN IV heart rate more than 120, 10/10/19 12:30 11/09/19 12:29 Docusate Sodium (Colace) 100 mg THREE TIMES A DAY ORAL 10/10/19 18:00 11/09/19 17:59 10/11/19 09:12 Enalaprilat (Vasotec) 2.5 mg Q6H PRN IV sbp more than 160 10/10/19 12:30 11/09/19 12:29 Furosemide (Lasix) 20 mg EVERY 12 HOURS IV 10/10/19 21:00 11/09/19 20:59 10/11/19 09:11 Heparin Sodium/ Dextrose 500 ml @ 19.391 mls/ hr ADJUST PER PROTOCOL IV 10/11/19 06:15 11/10/19 06:14 10/11/19 06:48 Hydralazine HCl (Apresoline) 10 mg Q8HR ORAL 10/10/19 22:00 11/09/19 21:59 10/11/19 05:27 Insulin Aspart (NovoLOG) BEFORE MEALS AND HS SUBQ 10/10/19 21:00 1/17/20 20:59 10/11/19 11:46 Insulin Aspart (NovoLOG) 10 units BEFORE MEALS SUBQ 10/10/19 20:00 11/09/19 19:59 10/11/19 11:46 Insulin Detemir (Levemir) 30 units BEDTIME SUBQ 10/10/19 21:00 11/09/19 20:59 10/10/19 21:09 Isosorbide Dinitrate (Isordil) 30 mg TID ORAL 10/10/19 20:59 11/09/19 20:58 10/11/19 09:12 Morphine Sulfate (Morphine Sulfate) 2 mg Q4H PRN IVP severe Pain (Pain Scale 7-10) 10/10/19 12:30 10/17/19 12:29 10/11/19 00:35 Nateglinide (Starlix) 120 mg TIAC ORAL 10/10/19 16:30 11/09/19 16:29 10/11/19 11:45 Nitroglycerin (Ntg) 0.4 mg Q5M PRN SL Prn Chest Pain 10/10/19 12:30 11/09/19 12:29 Ondansetron HCl (Zofran) 4 mg Q6H PRN IVP Nausea & Vomiting 10/10/19 12:30 11/09/19 12:29 Pantoprazole (Protonix) 40 mg BID ORAL 10/10/19 18:00 11/10/19 08:59 10/11/19 09:11 Polyethylene Glycol (Miralax) 17 gm DAILYPRN PRN ORAL Constipation 10/10/19 12:30 11/09/19 12:29 Temazepam (Restoril) 15 mg HSPRN PRN ORAL Insomnia 10/10/19 12:30 10/17/19 12:29 10/10/19 21:11 Laboratory Tests 10/10/19 13:25: Lactic Acid Level 2.90H 10/10/19 13:50: Urine Color Pale yellow, Urine Appearance Clear, Urine pH 5, Urine Specific [place] 1.020, Urine Protein 4+H, Urine Glucose (UA) 4+H, Urine Ketones Negative , Urine Blood 2+H, Urine Nitrite Negative, Urine Bilirubin Negative, Urine Urobilinogen Normal, Urine Leukocyte Esterase Negative, Urine RBC 2-4H, Urine WBC 0-2, Urine Squamous Epithelial Cells Few, Urine Bacteria Few, Urine Eosinophils None seen, Urine Osmolality 476H, Urine Random Creatinine [Pending] , Urine Random Microalbumin [Pending], Urine Random Sodium 19L, Urine Microalbumin/Creatinine Ratio [Pending] 10/10/19 22:20: Lactic Acid Level 2.00 10/11/19 04:00: Lactic Acid Level 1.20, White Blood Count 16.2H, Red Blood Count 3.12L, Hemoglobin 8.5L, Hematocrit 26.3L, Mean Corpuscular Volume 84, Mean Corpuscular Hemoglobin 27.2, Mean Corpuscular Hemoglobin Concent 32.3, Red Cell Distribution Width 13.4, Platelet Count 244, Mean Platelet Volume 6.9, Neutrophils (%) (Auto) , Lymphocytes (%) (Auto) , Monocytes (%) (Auto) , Eosinophils (%) (Auto) , Basophils (%) (Auto) , Differential Total Cells Counted 100, Neutrophils % (Manual) 88H, Lymphocytes % (Manual) 9L, Monocytes % (Manual) 3, Eosinophils % (Manual) 0, Basophils % (Manual) 0, Band Neutrophils 0 , Platelet Estimate Adequate, Platelet Morphology Normal, Hypochromasia 1+, Prothrombin Time 12.0H, Prothromb Time International Ratio 1.1, Activated Partial Thromboplast Time 26, Sodium Level 142, Potassium Level 3.8, Chloride Level 108H, Carbon Dioxide Level 24, Anion Gap 10, Blood Urea Nitrogen 40H, Creatinine 1.9H, Estimat Glomerular Filtration Rate 26.3, Glucose Level 173#H, Hemoglobin A1c 11.1H, Uric Acid 8.5H, Calcium Level 8.8, Phosphorus Level 3.7, Magnesium Level 2.8H, Iron Level 25L, Total Iron Binding Capacity 268, Percent Iron Saturation 9L, Unsaturated Iron Binding 243, Ferritin 239, Total Bilirubin 0.4, Gamma Glutamyl Transpeptidase 154H, Aspartate Amino Transf (AST/SGOT) 37, Alanine Aminotransferase (ALT/SGPT) 71, Alkaline Phosphatase 187H, Troponin I 6.090H, C-Reactive Protein, Quantitative 3.8H, Pro-B-Type Natriuretic Peptide 23339E, Total Protein 7.1, Albumin 2.8L, Globulin 4.3, Albumin/Globulin Ratio 0.7L, Triglycerides Level 57, Cholesterol Level 142, LDL Cholesterol 87, HDL Cholesterol 35L, Cholesterol/HDL Ratio 4.1, Vitamin B12 Level 920, Folate 10.6, Thyroid Stimulating Hormone (TSH) 3.523 Height (Feet): 5 Height (Inches): 4.00 Weight (Pounds): 178 General Appearance: no apparent distress Cardiovascular: normal rate Respiratory/Chest: decreased breath sounds Abdomen: distended Jay Severino MD Oct 11, 2019 12:51
--- NOTE | 2019-10-11 15:08 | General Progress Note ---
Assessment/Plan Problem List: (1) CHF (congestive heart failure) ICD Codes: I50.9 - Heart failure, unspecified SNOMED: 38028946 (2) Respiratory failure ICD Codes: J96.90 - Respiratory failure, unspecified, unspecified whether with hypoxia or hypercapnia SNOMED: 167183906 (3) Acute respiratory failure ICD Codes: J96.00 - Acute respiratory failure, unspecified whether with hypoxia or hypercapnia SNOMED: 83090850 (4) Diabetes mellitus ICD Codes: E11.9 - Type 2 diabetes mellitus without complications SNOMED: 24241304 (5) ACS (acute coronary syndrome) ICD Codes: I24.9 - Acute ischemic heart disease, unspecified SNOMED: 126965892 (6) History of hypertension ICD Codes: Z86.79 - Personal history of other diseases of the circulatory system SNOMED: 901551621 (7) Diabetic nephropathy ICD Codes: E11.21 - Type 2 diabetes mellitus with diabetic nephropathy SNOMED: 945699902 (8) Moderate pulmonary arterial systolic hypertension ICD Codes: I27.21 - Secondary pulmonary arterial hypertension SNOMED: 86486884 (9) Renal failure (ARF), acute on chronic ICD Codes: N17.9 - Acute kidney failure, unspecified; N18.9 - Chronic kidney disease, unspecified SNOMED: 608120793 (10) Left bundle branch block (LBBB) ICD Codes: I44.7 - Left bundle-branch block, unspecified SNOMED: 96257034 Status: unchanged Assessment/Plan: o2 pum tx bp bs control pt diet cbc bmp am Subjective Constitutional: Reports: weakness Allergies: Coded Allergies: No Known Allergies (Unverified , 10/10/19) All Systems: reviewed and negative except above Subjective o2nc calm in bed Objective Last 24 Hour Vital Signs Date Time Temp Pulse Resp B/P (MAP) Pulse Ox O2 Delivery O2 Flow Rate FiO2 10/11/19 14:00 83 20 116/84 (95) 98 10/11/19 13:18 154/88 10/11/19 13:18 154/88 10/11/19 13:00 85 21 154/88 (110) 99 10/11/19 12:00 3.0 10/11/19 12:00 98.1 76 25 154/91 (112) 99 10/11/19 12:00 Nasal Cannula 3.0 10/11/19 11:22 79 10/11/19 11:00 77 21 144/78 (100) 97 10/11/19 10:00 76 21 130/59 (82) 97 10/11/19 09:12 127/55 10/11/19 09:00 76 23 130/59 (82) 97 10/11/19 08:36 97 Nasal Cannula 2.0 28 10/11/19 08:00 3.0 10/11/19 08:00 Nasal Cannula 3.0 10/11/19 08:00 97.7 76 16 127/55 (79) 96 10/11/19 07:28 79 10/11/19 07:00 76 15 147/77 (100) 100 10/11/19 06:00 75 20 125/68 (87) 98 10/11/19 05:27 161/67 10/11/19 05:00 65 16 161/67 (98) 99 10/11/19 04:00 Nasal Cannula 3.0 10/11/19 04:00 98.6 76 23 153/84 (107) 98 10/11/19 04:00 3.0 10/11/19 04:00 77 10/11/19 03:00 81 24 165/89 (114) 98 10/11/19 02:00 58 15 108/54 (72) 96 10/11/19 01:00 62 17 143/63 (89) 95 10/11/19 00:45 77 20 98 Facial 30 10/11/19 00:00 30 10/11/19 00:00 98.1 80 26 154/106 (122) 94 10/11/19 00:00 Nasal Cannula 3.0 10/11/19 00:00 72 10/10/19 23:03 100 Nasal Cannula 2.0 28 10/10/19 23:00 84 23 155/82 (106) 96 10/10/19 22:00 81 20 136/82 (100) 94 10/10/19 21:48 140/84 10/10/19 21:11 140/84 10/10/19 21:00 80 22 140/89 (106) 96 10/10/19 20:00 85 10/10/19 20:00 3.0 10/10/19 20:00 Nasal Cannula 3.0 10/10/19 20:00 98.9 84 20 155/90 (111) 97 10/10/19 19:00 77 25 154/76 (102) 99 10/10/19 18:15 100 Nasal Cannula 2.0 28 10/10/19 18:00 94 29 170/94 (119) 99 10/10/19 17:00 87 25 152/94 (113) 98 10/10/19 16:00 Nasal Cannula 3.0 10/10/19 16:00 98.6 87 25 171/73 (105) 98 10/10/19 16:00 84 10/10/19 16:00 3.0 10/10/19 15:55 Bi-pap 10/10/19 15:10 98.3 87 15 148/83 100 Bi-pap 35 Intake and Output 10/10/19 10/11/19 19:00 07:00 Intake Total 120 ml 203.8782 ml Output Total 900 ml Balance 120 ml -696.1218 ml Intake Oral 200 ml IV Total 3.8782 ml Other 120 ml Output Urine Total 900 ml # Voids 2 3 Laboratory Tests 10/10/19 22:20: Lactic Acid Level 2.00 10/11/19 04:00: Lactic Acid Level 1.20, White Blood Count 16.2H, Red Blood Count 3.12L, Hemoglobin 8.5L, Hematocrit 26.3L, Mean Corpuscular Volume 84, Mean Corpuscular Hemoglobin 27.2, Mean Corpuscular Hemoglobin Concent 32.3, Red Cell Distribution Width 13.4, Platelet Count 244, Mean Platelet Volume 6.9, Neutrophils (%) (Auto) , Lymphocytes (%) (Auto) , Monocytes (%) (Auto) , Eosinophils (%) (Auto) , Basophils (%) (Auto) , Differential Total Cells Counted 100, Neutrophils % (Manual) 88H, Lymphocytes % (Manual) 9L, Monocytes % (Manual) 3, Eosinophils % (Manual) 0, Basophils % (Manual) 0, Band Neutrophils 0 , Platelet Estimate Adequate, Platelet Morphology Normal, Hypochromasia 1+, Prothrombin Time 12.0H, Prothromb Time International Ratio 1.1, Activated Partial Thromboplast Time 26, Sodium Level 142, Potassium Level 3.8, Chloride Level 108H, Carbon Dioxide Level 24, Anion Gap 10, Blood Urea Nitrogen 40H, Creatinine 1.9H, Estimat Glomerular Filtration Rate 26.3, Glucose Level 173#H, Hemoglobin A1c 11.1H, Uric Acid 8.5H, Calcium Level 8.8, Phosphorus Level 3.7, Magnesium Level 2.8H, Iron Level 25L, Total Iron Binding Capacity 268, Percent Iron Saturation 9L, Unsaturated Iron Binding 243, Ferritin 239, Total Bilirubin 0.4, Gamma Glutamyl Transpeptidase 154H, Aspartate Amino Transf (AST/SGOT) 37, Alanine Aminotransferase (ALT/SGPT) 71, Alkaline Phosphatase 187H, Troponin I 6.090H, C-Reactive Protein, Quantitative 3.8H, Pro-B-Type Natriuretic Peptide 74872B, Total Protein 7.1, Albumin 2.8L, Globulin 4.3, Albumin/Globulin Ratio 0.7L, Triglycerides Level 57, Cholesterol Level 142, LDL Cholesterol 87, HDL Cholesterol 35L, Cholesterol/HDL Ratio 4.1, Vitamin B12 Level 920, Folate 10.6, Thyroid Stimulating Hormone (TSH) 3.523 10/11/19 12:50: Activated Partial Thromboplast Time 63H, Troponin I 5.266H Height (Feet): 5 Height (Inches): 4.00 Weight (Pounds): 178 General Appearance: lethargic EENT: normal ENT inspection Neck: normal alignment Cardiovascular: normal peripheral pulses, normal rate, regular rhythm Respiratory/Chest: chest wall non-tender, lungs clear, normal breath sounds Abdomen: normal bowel sounds, non tender, soft Extremities: normal inspection Edema: no edema noted Arm (L), no edema noted Arm (R), no edema noted Leg (L), no edema noted Leg (R), no edema noted Pedal (L), no edema noted Pedal (R), no edema noted Generalized Neurologic: motor weakness Skin: normal pigmentation, warm/dry Dyllan King DO Oct 11, 2019 15:08
--- NOTE | 2019-10-11 18:51 | Diagnostic Imaging Report ---
Indication: Acute renal failure, abnormal renal function tests Technique: Grayscale and duplex images of the kidneys, retroperitoneum, and bladder were obtained. Comparison: none Findings: Right kidney measures 10 cm in length. Left kidney measures 10 cm in length. Both kidneys demonstrate normal echogenicity. No hydronephrosis. There is a cyst in the upper pole of the right kidney. Normal inferior vena cava. Bladder is normal somewhat distended, acuity volume 3 27 mL. Bilateral ureteral jets are demonstrated. There are bilateral pleural effusions noted. Impression: Negative for hydronephrosis Mildly distended bladder Bilateral pleural effusions Incidental finding right upper pole renal cyst.
[2019-10-11] MEDS ORDERED: Atorvastatin 80mg tab ORAL SCH (21:00)
[2019-10-11] MEDS ORDERED: Levemir Flexpen SUBQ SCH (21:00)
[2019-10-11] MEDS: Heparin 25,000u/D5W 500ml 500 ML IV SCH (21:10)
[2019-10-12] VITALS (16 sets, daily range): BP systolic 115–179; BP diastolic 60–95
--- NOTE | 2019-10-12 00:45 | Consultation ---
DATE OF CONSULTATION: 10/11/2019 ENDOCRINOLOGY CONSULTATION CONSULTING PHYSICIAN: Jake Alexander M.D. REFERRING PHYSICIAN: Dyllan King D.O. REASON FOR CONSULTATION: Diabetes management. HISTORY OF PRESENT ILLNESS: The patient is a 69-year-old female with history of diabetes, who presented to the hospital with 1 week history of worsening of the shortness of breath, chest discomfort, and coughing. The patient was admitted to the ICU for observation and treatment and was diagnosed with a diagnosis of severe CHF. I was called to manage diabetes. PAST MEDICAL HISTORY: 1. Diabetes. 2. Hypertension. REVIEW OF SYSTEMS: As per HPI. FAMILY HISTORY: Noncontributory. SOCIAL HISTORY: No smoking, alcohol, or drug use. MEDICATIONS: Reviewed and reconciled. PHYSICAL EXAMINATION: GENERAL: She is awake and alert. VITAL SIGNS: Blood pressure is 171/85, pulse 69, temperature 98, respiratory rate of 21. HEENT: Pupils are reactive to light. Sclerae anicteric. NECK: No JVD. HEART: Regular. LUNGS: Wheezing. ABDOMEN: Positive bowel sounds. EXTREMITIES: Positive for edema. LABORATORY DATA: WBC 16, hemoglobin 8.5, hematocrit 26.3, platelets of 344. Hemoglobin A1c 11.1. Troponin . BNP 29,000. Sodium 140, potassium 3.8, chloride 108, bicarbonate 24, BUN 35, creatine 1.9, glucose 173. Lactic acid 5.4 and 3.9. Uric acid 4.7. DIAGNOSES: 1. Diabetes, out of control. 2. Lactic acidosis. 3. VENANCIO. 4. Elevated troponin. PLAN: The patient is to be treated with insulin. I started her on Levemir and NovoLog regimen. The dosage of which would be adjusted to control. I will follow closely during hospital stay. She should not be on metformin due to lactic acidosis. Starlix 120 mg before each meal is appropriate. Thank you, Dr. King, for the courtesy of this consultation. Jake Alexander M.D. DR: BHAVIN/VANE JOB#: [id number] CC: LEILA
[2019-10-12] MEDS: Morphine Sulfate 2mg/ml Inj(IV/IM USE ONLY) IVP PRN (04:13)
[2019-10-12 04:35] LABS: HEMATOCRIT 29.6 % (37.0-47.0); HEMOGLOBIN 9.6 G/DL (12.0-16.0); MEAN CORPUSCULAR VOLUME 84 FL (80-99); PLATELET COUNT 351 K/UL (150-450); RED BLOOD COUNT 3.52 M/UL (4.20-5.40)
[2019-10-12] MEDS: Heparin 25,000u/D5W 500ml 500 ML IV SCH (04:40)
[2019-10-12 04:54] LABS: ALANINE AMINOTRANSFERASE 63 U/L (12-78); ALBUMIN/GLOBULIN RATIO 0.7 (1.0-2.7); ALKALINE PHOSPHATASE 188 U/L (46-116); ANION GAP 10 mmol/L (5-15); ASPARTATE AMINO TRANSFERASE 36 U/L (15-37); BILIRUBIN,TOTAL 0.3 MG/DL (0.2-1.0); BLOOD UREA NITROGEN 42 mg/dL (7-18); CALCIUM 8.7 MG/DL (8.5-10.1); CARBON DIOXIDE 26 MMOL/L (21-32); CHLORIDE 105 MMOL/L (98-107); CREATININE 2.1 MG/DL (0.55-1.30); POTASSIUM 3.6 MMOL/L (3.5-5.1); SODIUM 141 MMOL/L (136-145)
[2019-10-12 05:06] LABS: WHITE BLOOD COUNT 25.5 K/UL (4.8-10.8)
[2019-10-12] MEDS ORDERED: Heparin 25,000u/D5W 500ml 500 ML IV SCH ×3 (05:30→13:07)
[2019-10-12] MEDS: HydrALAZINE 10mg Tab ORAL SCH (05:51)
[2019-10-12] MEDS: NovoLOG Insulin Flexpen SUBQ SCH ×3 (06:26→11:15)
--- NOTE | 2019-10-12 06:58 | Cardiology Progress Note ---
Assessment/Plan Assessment/Plan 1. Probable congestive heart failure symptoms. 2. Intermittent LBBB 3. Diabetes mellitus. 4. Hypertension 5. NSTEMI 6. Renal insuf trop down trending echo prelime normal systolic fucntion ekg now normla conudction on ecotrin and heparin add norvasc since lv function is not normal awaits trasfer for cardica cath chagne lasix to qd ok to flor bb statin Subjective Cardiovascular: Denies: chest pain, lightheadedness, palpitations Respiratory: Denies: shortness of breath Gastrointestinal/Abdominal: Denies: abdominal pain, nausea Genitourinary: Denies: burning Objective Last 24 Hour Vital Signs Date Time Temp Pulse Resp B/P (MAP) Pulse Ox O2 Delivery O2 Flow Rate FiO2 10/12/19 06:00 79 17 163/77 (105) 98 10/12/19 05:51 154/60 10/12/19 05:00 70 17 154/60 (91) 98 10/12/19 04:43 98.2 10/12/19 04:00 70 10/12/19 04:00 98.1 70 21 170/71 (104) 97 10/12/19 04:00 3.0 10/12/19 03:00 75 21 169/93 (118) 99 10/12/19 02:00 70 21 168/95 (119) 99 10/12/19 01:00 76 21 143/77 (99) 99 10/12/19 00:35 192/104 10/12/19 00:00 98.2 81 21 179/84 (115) 99 10/12/19 00:00 81 10/12/19 00:00 Nasal Cannula 3.0 10/11/19 23:00 84 20 169/83 (111) 97 10/11/19 22:00 77 20 156/73 (100) 97 10/11/19 21:12 171/85 10/11/19 21:00 82 23 165/84 (111) 99 10/11/19 20:00 Nasal Cannula 3.0 10/11/19 20:00 98 Nasal Cannula 2.0 28 10/11/19 20:00 98.5 80 23 161/79 (106) 99 10/11/19 20:00 85 10/11/19 20:00 3.0 10/11/19 19:00 88 22 171/85 (113) 98 10/11/19 18:00 85 24 127/79 (95) 99 10/11/19 17:50 143/77 10/11/19 17:00 79 10/11/19 17:00 73 23 143/77 (99) 96 10/11/19 16:00 Nasal Cannula 3.0 10/11/19 16:00 98.0 78 21 118/72 (87) 98 10/11/19 16:00 3.0 10/11/19 16:00 69 10/11/19 15:00 80 21 120/63 (82) 98 10/11/19 14:00 83 20 116/84 (95) 98 10/11/19 13:18 154/88 10/11/19 13:18 154/88 10/11/19 13:00 85 21 154/88 (110) 99 10/11/19 12:00 3.0 10/11/19 12:00 98.1 76 25 154/91 (112) 99 10/11/19 12:00 Nasal Cannula 3.0 10/11/19 11:22 79 10/11/19 11:00 77 21 144/78 (100) 97 10/11/19 10:00 76 21 130/59 (82) 97 10/11/19 09:12 127/55 10/11/19 09:00 76 23 130/59 (82) 97 10/11/19 08:36 97 Nasal Cannula 2.0 28 10/11/19 08:00 3.0 10/11/19 08:00 Nasal Cannula 3.0 10/11/19 08:00 97.7 76 16 127/55 (79) 96 10/11/19 07:28 79 10/11/19 07:00 76 15 147/77 (100) 100 General Appearance: alert Neck: no JVD Cardiovascular: normal rate Respiratory/Chest: lungs clear Abdomen: normal bowel sounds, non tender, soft Extremities: no swelling Intake and Output 10/11/19 10/12/19 19:00 07:00 Intake Total 529.65879 ml 1002.181 ml Output Total 750 ml 1550 ml Balance -220.05460 ml -547.819 ml Intake Oral 280 ml 700 ml IV Total 249.99954 ml 302.181 ml Output Urine Total 750 ml 1550 ml Laboratory Tests Test 10/11/19 12:50 10/11/19 20:06 10/12/19 03:20 Activated Partial Thromboplast Time 63 SEC (23-33) H 47 SEC (23-33) H 129 SEC (23-33) H Troponin I 5.266 ng/mL (0.000-0.056) 3.388 ng/mL (0.000-0.056) 3.931 ng/mL (0.000-0.056) White Blood Count 25.5 K/UL (4.8-10.8) #*H Red Blood Count 3.52 M/UL (4.20-5.40) L Hemoglobin 9.6 G/DL (12.0-16.0) L Hematocrit 29.6 % (37.0-47.0) L Mean Corpuscular Volume 84 FL (80-99) Mean Corpuscular Hemoglobin 27.4 PG (27.0-31.0) Mean Corpuscular Hemoglobin Concent 32.5 G/DL (32.0-36.0) Red Cell Distribution Width 14.0 % (11.6-14.8) Platelet Count 351 K/UL (150-450) Mean Platelet Volume 6.4 FL (6.5-10.1) L Neutrophils (%) (Auto) % (45.0-75.0) Lymphocytes (%) (Auto) % (20.0-45.0) Monocytes (%) (Auto) % (1.0-10.0) Eosinophils (%) (Auto) % (0.0-3.0) Basophils (%) (Auto) % (0.0-2.0) Neutrophils % (Manual) Pending Lymphocytes % (Manual) Pending Platelet Estimate Pending Platelet Morphology Pending Sodium Level 141 MMOL/L (136-145) Potassium Level 3.6 MMOL/L (3.5-5.1) Chloride Level 105 MMOL/L (98-107) Carbon Dioxide Level 26 MMOL/L (21-32) Anion Gap 10 mmol/L (5-15) Blood Urea Nitrogen 42 mg/dL (7-18) H Creatinine 2.1 MG/DL (0.55-1.30) H Estimat Glomerular Filtration Rate 23.4 mL/min (>60) Glucose Level 104 MG/DL (74-106) Calcium Level 8.7 MG/DL (8.5-10.1) Total Bilirubin 0.3 MG/DL (0.2-1.0) Aspartate Amino Transf (AST/SGOT) 36 U/L (15-37) Alanine Aminotransferase (ALT/SGPT) 63 U/L (12-78) Alkaline Phosphatase 188 U/L (46-116) H Pro-B-Type Natriuretic Peptide 42282 pg/mL (0-125) H Total Protein 7.4 G/DL (6.4-8.2) Albumin 3.0 G/DL (3.4-5.0) L Globulin 4.4 g/dL Albumin/Globulin Ratio 0.7 (1.0-2.7) L Microbiology Date/Time Source Procedure Growth Status 10/10/19 10:30 Blood Blood Culture - Preliminary NO GROWTH AFTER 24 HOURS Resulted 10/10/19 10:00 Blood Blood Culture - Preliminary NO GROWTH AFTER 24 HOURS Resulted 10/10/19 10:15 Nasal Nares - Final Complete 10/10/19 10:15 Nasal Nares - Final Complete 10/10/19 11:49 Rectum - Final NO CARBAPENEM-RESISTANT ENTEROBACTERI... Complete 10/10/19 11:49 Rectum VRE Culture - Final NO VANCOMYCIN RESISTANT ENTEROCOCCUS ... Complete Sherwin Zelaya MD Oct 12, 2019 06:58
--- NOTE | 2019-10-12 07:10 | General Progress Note ---
Assessment/Plan Problem List: (1) Diabetic nephropathy ICD Codes: E11.21 - Type 2 diabetes mellitus with diabetic nephropathy SNOMED: 271929750 (2) CHF (congestive heart failure) ICD Codes: I50.9 - Heart failure, unspecified SNOMED: 91899834 (3) Respiratory failure ICD Codes: J96.90 - Respiratory failure, unspecified, unspecified whether with hypoxia or hypercapnia SNOMED: 314476039 (4) Diabetes mellitus ICD Codes: E11.9 - Type 2 diabetes mellitus without complications SNOMED: 13198175 Status: unchanged Assessment/Plan: DC mealtime Novolog reduced Levemir to 20 units qhs continue Starlix 120 mg ac tid continue NISS ac / hs Subjective Allergies: Coded Allergies: No Known Allergies (Unverified , 10/10/19) All Systems: reviewed and negative except above Subjective events noted glucose values improved Item Value Date Time Bedside Blood Glucose 126 mg/dl H 10/11/19 2114 Bedside Blood Glucose 96 mg/dl 10/11/19 1737 Bedside Blood Glucose 123 mg/dl H 10/11/19 1146 Bedside Blood Glucose 132 mg/dl H 10/11/19 0626 Bedside Blood Glucose 91 mg/dl 10/12/19 0630 Objective Last 24 Hour Vital Signs Date Time Temp Pulse Resp B/P (MAP) Pulse Ox O2 Delivery O2 Flow Rate FiO2 10/12/19 06:00 79 17 163/77 (105) 98 10/12/19 05:51 154/60 10/12/19 05:00 70 17 154/60 (91) 98 10/12/19 04:43 98.2 10/12/19 04:00 70 10/12/19 04:00 98.1 70 21 170/71 (104) 97 10/12/19 04:00 3.0 10/12/19 03:00 75 21 169/93 (118) 99 10/12/19 02:00 70 21 168/95 (119) 99 10/12/19 01:00 76 21 143/77 (99) 99 10/12/19 00:35 192/104 10/12/19 00:00 98.2 81 21 179/84 (115) 99 10/12/19 00:00 81 10/12/19 00:00 Nasal Cannula 3.0 10/11/19 23:00 84 20 169/83 (111) 97 10/11/19 22:00 77 20 156/73 (100) 97 10/11/19 21:12 171/85 10/11/19 21:00 82 23 165/84 (111) 99 10/11/19 20:00 Nasal Cannula 3.0 10/11/19 20:00 98 Nasal Cannula 2.0 28 10/11/19 20:00 98.5 80 23 161/79 (106) 99 10/11/19 20:00 85 10/11/19 20:00 3.0 10/11/19 19:00 88 22 171/85 (113) 98 10/11/19 18:00 85 24 127/79 (95) 99 10/11/19 17:50 143/77 10/11/19 17:00 79 10/11/19 17:00 73 23 143/77 (99) 96 10/11/19 16:00 Nasal Cannula 3.0 10/11/19 16:00 98.0 78 21 118/72 (87) 98 10/11/19 16:00 3.0 10/11/19 16:00 69 10/11/19 15:00 80 21 120/63 (82) 98 10/11/19 14:00 83 20 116/84 (95) 98 10/11/19 13:18 154/88 10/11/19 13:18 154/88 10/11/19 13:00 85 21 154/88 (110) 99 10/11/19 12:00 3.0 10/11/19 12:00 98.1 76 25 154/91 (112) 99 10/11/19 12:00 Nasal Cannula 3.0 10/11/19 11:22 79 10/11/19 11:00 77 21 144/78 (100) 97 10/11/19 10:00 76 21 130/59 (82) 97 10/11/19 09:12 127/55 10/11/19 09:00 76 23 130/59 (82) 97 10/11/19 08:36 97 Nasal Cannula 2.0 28 10/11/19 08:00 3.0 10/11/19 08:00 Nasal Cannula 3.0 10/11/19 08:00 97.7 76 16 127/55 (79) 96 10/11/19 07:28 79 Intake and Output 10/11/19 10/12/19 19:00 07:00 Intake Total 529.12797 ml 1002.181 ml Output Total 750 ml 1550 ml Balance -220.40077 ml -547.819 ml Intake Oral 280 ml 700 ml IV Total 249.49051 ml 302.181 ml Output Urine Total 750 ml 1550 ml Laboratory Tests 10/11/19 12:50: Activated Partial Thromboplast Time 63H, Troponin I 5.266H 10/11/19 20:06: Activated Partial Thromboplast Time 47H, Troponin I 3.388H 10/12/19 03:20: Activated Partial Thromboplast Time 129H, Troponin I 3.931H, White Blood Count 25.5#*H, Red Blood Count 3.52L, Hemoglobin 9.6L, Hematocrit 29.6L, Mean Corpuscular Volume 84, Mean Corpuscular Hemoglobin 27.4, Mean Corpuscular Hemoglobin Concent 32.5, Red Cell Distribution Width 14.0, Platelet Count 351, Mean Platelet Volume 6.4L, Neutrophils (%) (Auto) , Lymphocytes (%) (Auto) , Monocytes (%) (Auto) , Eosinophils (%) (Auto) , Basophils (%) (Auto) , Neutrophils % (Manual) [Pending], Lymphocytes % (Manual) [Pending], Platelet Estimate [Pending], Platelet Morphology [Pending], Sodium Level 141, Potassium Level 3.6, Chloride Level 105, Carbon Dioxide Level 26, Anion Gap 10, Blood Urea Nitrogen 42H, Creatinine 2.1H, Estimat Glomerular Filtration Rate 23.4, Glucose Level 104, Calcium Level 8.7, Total Bilirubin 0.3, Aspartate Amino Transf (AST/SGOT) 36, Alanine Aminotransferase (ALT/SGPT) 63, Alkaline Phosphatase 188H, Pro-B-Type Natriuretic Peptide 61272C, Total Protein 7.4, Albumin 3.0L, Globulin 4.4, Albumin/Globulin Ratio 0.7L Height (Feet): 5 Height (Inches): 4.00 Weight (Pounds): 178 General Appearance: no apparent distress Neck: normal alignment Cardiovascular: normal rate Respiratory/Chest: normal breath sounds Abdomen: normal bowel sounds Pelvis: normal external exam Objective Current Medications Medications (Trade) Dose Ordered Sig/Braeden Route PRN Reason Start Time Stop Time Status Last Admin Dose Admin Acetaminophen (Tylenol) 650 mg Q4H PRN ORAL Mild Pain/Temp > 100.5 10/11/19 16:30 11/09/19 12:29 10/11/19 23:49 Albuterol/ Ipratropium (Albuterol/ Ipratropium) 3 ml Q4H PRN HHN Shortness of Breath 10/10/19 12:30 10/15/19 12:29 Allopurinol (Allopurinol) 300 mg DAILY ORAL 10/11/19 09:00 11/10/19 08:59 10/11/19 09:11 Amlodipine Besylate (Norvasc) 5 mg DAILY ORAL 10/12/19 09:00 11/11/19 08:59 Aspirin (ASA) 162 mg DAILY ORAL 10/11/19 09:00 11/10/19 08:59 10/11/19 09:12 Atorvastatin Calcium (Lipitor) 80 mg BEDTIME ORAL 10/11/19 21:00 11/10/19 20:59 10/11/19 21:08 Dextrose (Dextrose 50%) 25 ml Q30M PRN IV Hypoglycemia 10/10/19 19:00 11/09/19 18:59 Dextrose (Dextrose 50%) 50 ml Q30M PRN IV Hypoglycemia 10/10/19 19:00 11/09/19 18:59 Diltiazem HCl (Cardizem) 10 mg Q1H PRN IV heart rate more than 120, 10/10/19 12:30 11/09/19 12:29 Docusate Sodium (Colace) 100 mg THREE TIMES A DAY ORAL 10/10/19 18:00 11/09/19 17:59 10/11/19 17:50 Enalaprilat (Vasotec) 2.5 mg Q6H PRN IV sbp more than 160 10/10/19 12:30 11/09/19 12:29 10/12/19 00:35 Furosemide (Lasix) 20 mg EVERY 12 HOURS IV 10/10/19 21:00 11/09/19 20:59 10/11/19 21:15 Heparin Sodium/ Dextrose 500 ml @ 24.239 mls/ hr ADJUST PER PROTOCOL IV 10/12/19 06:00 11/11/19 05:59 10/12/19 05:52 Hydralazine HCl (Apresoline) 10 mg Q8HR ORAL 10/10/19 22:00 11/09/19 21:59 10/12/19 05:51 Insulin Aspart (NovoLOG) BEFORE MEALS AND HS SUBQ 10/10/19 21:00 11/09/19 20:59 10/11/19 21:13 Insulin Aspart (NovoLOG) 6 units BEFORE MEALS SUBQ 10/11/19 16:30 11/09/19 19:59 Insulin Detemir (Levemir) 24 units BEDTIME SUBQ 10/11/19 21:00 11/09/19 20:59 10/11/19 21:14 Isosorbide Dinitrate (Isordil) 30 mg TID ORAL 10/10/19 20:59 11/09/19 20:58 10/11/19 17:50 Metoprolol Tartrate (Lopressor) 25 mg Q12HR ORAL 10/12/19 09:00 11/11/19 08:59 Morphine Sulfate (Morphine Sulfate) 2 mg Q4H PRN IVP severe Pain (Pain Scale 7-10) 10/10/19 12:30 10/17/19 12:29 10/12/19 04:13 Nateglinide (Starlix) 120 mg TIAC ORAL 10/10/19 16:30 11/09/19 16:29 10/12/19 05:50 Nitroglycerin (Ntg) 0.4 mg Q5M PRN SL Prn Chest Pain 10/10/19 12:30 11/09/19 12:29 Ondansetron HCl (Zofran) 4 mg Q6H PRN IVP Nausea & Vomiting 10/10/19 12:30 11/09/19 12:29 Pantoprazole (Protonix) 40 mg BID ORAL 10/10/19 18:00 11/10/19 08:59 10/11/19 17:50 Polyethylene Glycol (Miralax) 17 gm DAILYPRN PRN ORAL Constipation 10/10/19 12:30 11/09/19 12:29 Temazepam (Restoril) 15 mg HSPRN PRN ORAL Insomnia 10/10/19 12:30 10/17/19 12:29 10/11/19 21:11 Jake Alexander MD Oct 12, 2019 07:10
--- NOTE | 2019-10-12 08:12 | Pulmonology Progress Note ---
Assessment/Plan Assessment/Plan ASSESSMENT ACS/NSTEMI Acute hypoxemic respiratory failure requiring BiPAP Possible sepsis (leukocytosis, lactic acidosis) versus SIRS Diabetes mellitus [id number] Acute on chronic renal failure CHF diastolic dysfunction Moderate pulmonary hypertension Moderate mitral regurgitation Diabetic nephropathy Anemia Hypertension PLAN OF CARE ICU On BiPAP Titrate O2 to keep sat above 92 HHN PRN Heparin gtt Aspirin, statin cardio follows Echo with EF 55%, moderate MR, RVSP of 49 c/w moderate pulmonary HTN Diuresis, monitor volumes and cardiorenal parameters Hydralazine/Isordil combo Need transfer for cardiac cath BP management with hydralazine Renal US no hydro monitor renal parameters , electrolytes , correct as needed Hgb A1c 11.1 BS management with long-acting Levemir, short acting pre-meal Novolog and sliding scale of insulin optimize further as needed based on BS levels GI prophylaxis Bowel regimen case discussed and evaluated by supervising physician Subjective Allergies: Coded Allergies: No Known Allergies (Unverified , 10/10/19) Objective Last 24 Hour Vital Signs Date Time Temp Pulse Resp B/P (MAP) Pulse Ox O2 Delivery O2 Flow Rate FiO2 10/12/19 06:00 79 17 163/77 (105) 98 10/12/19 05:51 154/60 10/12/19 05:00 70 17 154/60 (91) 98 10/12/19 04:43 98.2 10/12/19 04:00 Nasal Cannula 3.0 10/12/19 04:00 70 10/12/19 04:00 98.1 70 21 170/71 (104) 97 10/12/19 04:00 3.0 10/12/19 03:00 75 21 169/93 (118) 99 10/12/19 02:00 70 21 168/95 (119) 99 10/12/19 01:00 76 21 143/77 (99) 99 10/12/19 00:35 192/104 10/12/19 00:00 98.2 81 21 179/84 (115) 99 10/12/19 00:00 81 10/12/19 00:00 Nasal Cannula 3.0 10/11/19 23:00 84 20 169/83 (111) 97 10/11/19 22:00 77 20 156/73 (100) 97 10/11/19 21:12 171/85 10/11/19 21:00 82 23 165/84 (111) 99 10/11/19 20:00 Nasal Cannula 3.0 10/11/19 20:00 98 Nasal Cannula 2.0 28 10/11/19 20:00 98.5 80 23 161/79 (106) 99 10/11/19 20:00 85 10/11/19 20:00 3.0 10/11/19 19:00 88 22 171/85 (113) 98 10/11/19 18:00 85 24 127/79 (95) 99 10/11/19 17:50 143/77 10/11/19 17:00 79 10/11/19 17:00 73 23 143/77 (99) 96 10/11/19 16:00 Nasal Cannula 3.0 10/11/19 16:00 98.0 78 21 118/72 (87) 98 10/11/19 16:00 3.0 10/11/19 16:00 69 10/11/19 15:00 80 21 120/63 (82) 98 10/11/19 14:00 83 20 116/84 (95) 98 10/11/19 13:18 154/88 10/11/19 13:18 154/88 10/11/19 13:00 85 21 154/88 (110) 99 10/11/19 12:00 3.0 10/11/19 12:00 98.1 76 25 154/91 (112) 99 10/11/19 12:00 Nasal Cannula 3.0 10/11/19 11:22 79 10/11/19 11:00 77 21 144/78 (100) 97 10/11/19 10:00 76 21 130/59 (82) 97 10/11/19 09:12 127/55 10/11/19 09:00 76 23 130/59 (82) 97 10/11/19 08:36 97 Nasal Cannula 2.0 28 Intake and Output 10/11/19 10/12/19 19:00 07:00 Intake Total 529.29437 ml 1202.181 ml Output Total 750 ml 2100 ml Balance -220.20351 ml -897.819 ml Intake Oral 280 ml 900 ml IV Total 249.63384 ml 302.181 ml Output Urine Total 750 ml 2100 ml Microbiology Date/Time Source Procedure Growth Status 10/10/19 10:30 Blood Blood Culture - Preliminary NO GROWTH AFTER 24 HOURS Resulted 10/10/19 10:00 Blood Blood Culture - Preliminary NO GROWTH AFTER 24 HOURS Resulted 10/10/19 10:15 Nasal Nares - Final Complete 10/10/19 10:15 Nasal Nares - Final Complete 10/10/19 11:49 Rectum - Final NO CARBAPENEM-RESISTANT ENTEROBACTERI... Complete 10/10/19 11:49 Rectum VRE Culture - Final NO VANCOMYCIN RESISTANT ENTEROCOCCUS ... Complete Laboratory Tests 10/11/19 12:50: Activated Partial Thromboplast Time 63H, Troponin I 5.266H 10/11/19 20:06: Activated Partial Thromboplast Time 47H, Troponin I 3.388H 10/12/19 03:20: Activated Partial Thromboplast Time 129H, Troponin I 3.931H, White Blood Count 25.5#*H, Red Blood Count 3.52L, Hemoglobin 9.6L, Hematocrit 29.6L, Mean Corpuscular Volume 84, Mean Corpuscular Hemoglobin 27.4, Mean Corpuscular Hemoglobin Concent 32.5, Red Cell Distribution Width 14.0, Platelet Count 351, Mean Platelet Volume 6.4L, Neutrophils (%) (Auto) , Lymphocytes (%) (Auto) , Monocytes (%) (Auto) , Eosinophils (%) (Auto) , Basophils (%) (Auto) , Neutrophils % (Manual) [Pending], Lymphocytes % (Manual) [Pending], Platelet Estimate [Pending], Platelet Morphology [Pending], Sodium Level 141, Potassium Level 3.6, Chloride Level 105, Carbon Dioxide Level 26, Anion Gap 10, Blood Urea Nitrogen 42H, Creatinine 2.1H, Estimat Glomerular Filtration Rate 23.4, Glucose Level 104, Calcium Level 8.7, Total Bilirubin 0.3, Aspartate Amino Transf (AST/SGOT) 36, Alanine Aminotransferase (ALT/SGPT) 63, Alkaline Phosphatase 188H, Pro-B-Type Natriuretic Peptide 56518F, Total Protein 7.4, Albumin 3.0L, Globulin 4.4, Albumin/Globulin Ratio 0.7L Current Medications Medications (Trade) Dose Ordered Sig/Braeden Route PRN Reason Start Time Stop Time Status Last Admin Dose Admin Acetaminophen (Tylenol) 650 mg Q4H PRN ORAL Mild Pain/Temp > 100.5 10/11/19 16:30 11/09/19 12:29 10/11/19 23:49 Albuterol/ Ipratropium (Albuterol/ Ipratropium) 3 ml Q4H PRN HHN Shortness of Breath 10/10/19 12:30 10/15/19 12:29 Allopurinol (Allopurinol) 300 mg DAILY ORAL 10/11/19 09:00 11/10/19 08:59 10/11/19 09:11 Amlodipine Besylate (Norvasc) 5 mg DAILY ORAL 10/12/19 09:00 11/11/19 08:59 Aspirin (ASA) 162 mg DAILY ORAL 10/11/19 09:00 11/10/19 08:59 10/11/19 09:12 Atorvastatin Calcium (Lipitor) 80 mg BEDTIME ORAL 10/11/19 21:00 11/10/19 20:59 10/11/19 21:08 Dextrose (Dextrose 50%) 25 ml Q30M PRN IV Hypoglycemia 10/10/19 19:00 11/09/19 18:59 Dextrose (Dextrose 50%) 50 ml Q30M PRN IV Hypoglycemia 10/10/19 19:00 11/09/19 18:59 Diltiazem HCl (Cardizem) 10 mg Q1H PRN IV heart rate more than 120, 10/10/19 12:30 11/09/19 12:29 Docusate Sodium (Colace) 100 mg THREE TIMES A DAY ORAL 10/10/19 18:00 11/09/19 17:59 10/11/19 17:50 Enalaprilat (Vasotec) 2.5 mg Q6H PRN IV sbp more than 160 10/10/19 12:30 11/09/19 12:29 10/12/19 00:35 Furosemide (Lasix) 20 mg EVERY 12 HOURS IV 10/10/19 21:00 11/09/19 20:59 10/11/19 21:15 Heparin Sodium/ Dextrose 500 ml @ 24.239 mls/ hr ADJUST PER PROTOCOL IV 10/12/19 06:00 11/11/19 05:59 10/12/19 05:52 Hydralazine HCl (Apresoline) 10 mg Q8HR ORAL 10/10/19 22:00 11/09/19 21:59 10/12/19 05:51 Insulin Aspart (NovoLOG) BEFORE MEALS AND HS SUBQ 10/10/19 21:00 11/09/19 20:59 10/11/19 21:13 Insulin Detemir (Levemir) 20 units BEDTIME SUBQ 10/12/19 21:00 11/09/19 20:59 Isosorbide Dinitrate (Isordil) 30 mg TID ORAL 10/10/19 20:59 11/09/19 20:58 10/11/19 17:50 Metoprolol Tartrate (Lopressor) 25 mg Q12HR ORAL 10/12/19 09:00 11/11/19 08:59 Morphine Sulfate (Morphine Sulfate) 2 mg Q4H PRN IVP severe Pain (Pain Scale 7-10) 10/10/19 12:30 10/17/19 12:29 10/12/19 04:13 Nateglinide (Starlix) 120 mg TIAC ORAL 10/10/19 16:30 11/09/19 16:29 10/12/19 05:50 Nitroglycerin (Ntg) 0.4 mg Q5M PRN SL Prn Chest Pain 10/10/19 12:30 11/09/19 12:29 Ondansetron HCl (Zofran) 4 mg Q6H PRN IVP Nausea & Vomiting 10/10/19 12:30 11/09/19 12:29 Pantoprazole (Protonix) 40 mg BID ORAL 10/10/19 18:00 11/10/19 08:59 10/11/19 17:50 Polyethylene Glycol (Miralax) 17 gm DAILYPRN PRN ORAL Constipation 10/10/19 12:30 11/09/19 12:29 Temazepam (Restoril) 15 mg HSPRN PRN ORAL Insomnia 10/10/19 12:30 10/17/19 12:29 10/11/19 21:11 Jenna García NP Oct 12, 2019 08:12
--- NOTE | 2019-10-12 08:14 | Pulmonolgy Critical Care Note ---
Critical Care - Asmt/Plan Assessment/Plan: ASSESSMENT ACS/NSTEMI Acute hypoxemic respiratory failure requiring BiPAP Possible sepsis (leukocytosis, lactic acidosis) versus SIRS Diabetes mellitus [id number] Acute on chronic renal failure CHF Moderate pulmonary hypertension Moderate mitral regurgitation Diabetic nephropathy Anemia Hypertension PLAN OF CARE ICU on BiPAP titrate O2 to keep sat above 92 HHN PRN heparin gtt aspirin, statin troponin downtrending cardio follows Echo with EF 55%, moderate MR, RVSP of 49 c/w moderate pulmonary HTN diuresis, monitor volumes and cardiorenal parameters Hydralazine/Isordil combo need transfer for cardiac cath BP management with hydralazine and Norvasc leuk trending up, no fevers UA negative, CXR stable ? source CT A/P no diarrhea start empiric Vanco and Zosyn, ID consult renal US no hydro monitor renal parameters , electrolytes , correct as needed Hgb A1c 11.1 BS management with long-acting Levemir, short acting pre-meal Novolog and sliding scale of insulin optimize further as needed based on BS levels GI prophylaxis bowel regimen transfer to [facility] if bed available case discussed and evaluated by supervising physician Critical Care - Objective Last 24 Hour Vital Signs Date Time Temp Pulse Resp B/P (MAP) Pulse Ox O2 Delivery O2 Flow Rate FiO2 10/12/19 06:00 79 17 163/77 (105) 98 10/12/19 05:51 154/60 10/12/19 05:00 70 17 154/60 (91) 98 10/12/19 04:43 98.2 10/12/19 04:00 Nasal Cannula 3.0 10/12/19 04:00 70 10/12/19 04:00 98.1 70 21 170/71 (104) 97 10/12/19 04:00 3.0 10/12/19 03:00 75 21 169/93 (118) 99 10/12/19 02:00 70 21 168/95 (119) 99 10/12/19 01:00 76 21 143/77 (99) 99 10/12/19 00:35 192/104 10/12/19 00:00 98.2 81 21 179/84 (115) 99 10/12/19 00:00 81 10/12/19 00:00 Nasal Cannula 3.0 10/11/19 23:00 84 20 169/83 (111) 97 10/11/19 22:00 77 20 156/73 (100) 97 10/11/19 21:12 171/85 10/11/19 21:00 82 23 165/84 (111) 99 10/11/19 20:00 Nasal Cannula 3.0 10/11/19 20:00 98 Nasal Cannula 2.0 28 10/11/19 20:00 98.5 80 23 161/79 (106) 99 10/11/19 20:00 85 10/11/19 20:00 3.0 10/11/19 19:00 88 22 171/85 (113) 98 10/11/19 18:00 85 24 127/79 (95) 99 10/11/19 17:50 143/77 10/11/19 17:00 79 10/11/19 17:00 73 23 143/77 (99) 96 10/11/19 16:00 Nasal Cannula 3.0 10/11/19 16:00 98.0 78 21 118/72 (87) 98 10/11/19 16:00 3.0 10/11/19 16:00 69 10/11/19 15:00 80 21 120/63 (82) 98 10/11/19 14:00 83 20 116/84 (95) 98 10/11/19 13:18 154/88 10/11/19 13:18 154/88 10/11/19 13:00 85 21 154/88 (110) 99 10/11/19 12:00 3.0 10/11/19 12:00 98.1 76 25 154/91 (112) 99 10/11/19 12:00 Nasal Cannula 3.0 10/11/19 11:22 79 10/11/19 11:00 77 21 144/78 (100) 97 10/11/19 10:00 76 21 130/59 (82) 97 10/11/19 09:12 127/55 10/11/19 09:00 76 23 130/59 (82) 97 10/11/19 08:36 97 Nasal Cannula 2.0 28 Status: awake HEENT: atraumatic, normocephalic Neck: full ROM Lungs: clear Heart: HR/BP stable Abdomen: soft, non-tender, active bowel sounds Extremities: no C/C/E Micro: Microbiology Date/Time Source Procedure Growth Status 10/10/19 10:30 Blood Blood Culture - Preliminary NO GROWTH AFTER 24 HOURS Resulted 10/10/19 10:00 Blood Blood Culture - Preliminary NO GROWTH AFTER 24 HOURS Resulted 10/10/19 10:15 Nasal Nares - Final Complete 10/10/19 10:15 Nasal Nares - Final Complete 10/10/19 11:49 Rectum - Final NO CARBAPENEM-RESISTANT ENTEROBACTERI... Complete 10/10/19 11:49 Rectum VRE Culture - Final NO VANCOMYCIN RESISTANT ENTEROCOCCUS ... Complete Accucheck: 91 Critical Care - Subjective Interval Events: leukocytosis trending up, afebrile, creat worse off BiPAP trop trending down denies CP, SOB Condition: critical EKG Rhythm: Sinus Rhythm FI02: 28 Vent Support Mode: BiLevel Sputum Amount: None I&O: Intake and Output 10/11/19 10/12/19 19:00 07:00 Intake Total 529.54411 ml 1202.181 ml Output Total 750 ml 2100 ml Balance -220.18704 ml -897.819 ml Intake Oral 280 ml 900 ml IV Total 249.30281 ml 302.181 ml Output Urine Total 750 ml 2100 ml CXR: Cardiomegaly Bilateral interstitial and airspace edema Suspect bilateral pleural effusions and bilateral basilar consolidation Jenna García NP Oct 12, 2019 08:14
--- NOTE | 2019-10-12 08:25 | Diagnostic Imaging Report ---
Indication: Cough Technique: One view of the chest Comparison: none Findings: Patient is rotated to the right. There is bilateral interstitial and airspace edema. The heart is enlarged. There is probably bilateral pleural effusions, right greater than left. There may be some consolidation at the right lung base and retrocardiac region. Impression: Cardiomegaly Bilateral interstitial and airspace edema Suspect bilateral pleural effusions and bilateral basilar consolidation
[2019-10-12] MEDS: Docusate 100mg cap ORAL SCH ×2 (09:07→12:42)
[2019-10-12] MEDS: Aspirin Baby 81mg ORAL SCH (09:08)
--- NOTE | 2019-10-12 10:35 | Diagnostic Imaging Report ---
Indication: Dyspnea Technique: One view of the chest Comparison: 10/10/2019 Findings: Cardiomegaly, bilateral pleural effusions, bilateral interstitial and airspace edema persist, largely unchanged Impression: Unchanged, over 2 days, findings as above.
--- NOTE | 2019-10-12 10:37 | Nephrology Progress Note ---
Assessment/Plan Problem List: (1) Renal failure (ARF), acute on chronic Assessment: rising Cr (2) Diabetic nephropathy Assessment: A1c 11 ! (3) History of hypertension (4) ACS (acute coronary syndrome) Assessment: troponin elevated (5) CHF (congestive heart failure) (6) Left bundle branch block (LBBB) Assessment Renal failure- Likely acute on Chronic DM / Nephropathy / Proteinuria Anemia HTN LBBB Plan Optimize cardiac and Pulm status 2 D echo 55% Ej Fx monitor I&O Antibiotics Avoid nephrotoxics Due transfer to higher level care for cath Subjective ROS Limited/Unobtainable: No Constitutional: Reports: malaise Objective Objective Last 24 Hour Vital Signs Date Time Temp Pulse Resp B/P (MAP) Pulse Ox O2 Delivery O2 Flow Rate FiO2 10/12/19 09:07 77 150/75 10/12/19 09:07 77 150/75 10/12/19 09:07 150/75 10/12/19 09:00 74 20 150/75 (100) 99 10/12/19 08:28 98 Nasal Cannula 2.0 28 10/12/19 08:00 3.0 10/12/19 08:00 Nasal Cannula 3.0 10/12/19 08:00 98.0 73 20 144/74 (97) 98 10/12/19 07:00 74 17 143/76 (98) 98 10/12/19 06:00 79 17 163/77 (105) 98 10/12/19 05:51 154/60 10/12/19 05:00 70 17 154/60 (91) 98 10/12/19 04:43 98.2 10/12/19 04:00 Nasal Cannula 3.0 10/12/19 04:00 70 10/12/19 04:00 98.1 70 21 170/71 (104) 97 10/12/19 04:00 3.0 10/12/19 03:00 75 21 169/93 (118) 99 10/12/19 02:00 70 21 168/95 (119) 99 10/12/19 01:00 76 21 143/77 (99) 99 10/12/19 00:35 192/104 10/12/19 00:00 98.2 81 21 179/84 (115) 99 10/12/19 00:00 81 10/12/19 00:00 Nasal Cannula 3.0 10/11/19 23:00 84 20 169/83 (111) 97 10/11/19 22:00 77 20 156/73 (100) 97 10/11/19 21:12 171/85 10/11/19 21:00 82 23 165/84 (111) 99 10/11/19 20:00 Nasal Cannula 3.0 10/11/19 20:00 98 Nasal Cannula 2.0 28 10/11/19 20:00 98.5 80 23 161/79 (106) 99 10/11/19 20:00 85 10/11/19 20:00 3.0 10/11/19 19:00 88 22 171/85 (113) 98 10/11/19 18:00 85 24 127/79 (95) 99 10/11/19 17:50 143/77 10/11/19 17:00 79 10/11/19 17:00 73 23 143/77 (99) 96 10/11/19 16:00 Nasal Cannula 3.0 10/11/19 16:00 98.0 78 21 118/72 (87) 98 10/11/19 16:00 3.0 10/11/19 16:00 69 10/11/19 15:00 80 21 120/63 (82) 98 10/11/19 14:00 83 20 116/84 (95) 98 10/11/19 13:18 154/88 10/11/19 13:18 154/88 10/11/19 13:00 85 21 154/88 (110) 99 10/11/19 12:00 3.0 10/11/19 12:00 98.1 76 25 154/91 (112) 99 10/11/19 12:00 Nasal Cannula 3.0 10/11/19 11:22 79 10/11/19 11:00 77 21 144/78 (100) 97 Intake and Output 10/11/19 10/12/19 19:00 07:00 Intake Total 529.27278 ml 1202.181 ml Output Total 750 ml 2100 ml Balance -220.25181 ml -897.819 ml Intake Oral 280 ml 900 ml IV Total 249.63656 ml 302.181 ml Output Urine Total 750 ml 2100 ml Laboratory Tests 10/11/19 12:50: Activated Partial Thromboplast Time 63H, Troponin I 5.266H 10/11/19 20:06: Activated Partial Thromboplast Time 47H, Troponin I 3.388H 10/12/19 03:20: Activated Partial Thromboplast Time 129H, Troponin I 3.931H, White Blood Count 25.5#*H, Red Blood Count 3.52L, Hemoglobin 9.6L, Hematocrit 29.6L, Mean Corpuscular Volume 84, Mean Corpuscular Hemoglobin 27.4, Mean Corpuscular Hemoglobin Concent 32.5, Red Cell Distribution Width 14.0, Platelet Count 351, Mean Platelet Volume 6.4L, Neutrophils (%) (Auto) , Lymphocytes (%) (Auto) , Monocytes (%) (Auto) , Eosinophils (%) (Auto) , Basophils (%) (Auto) , Neutrophils % (Manual) [Pending], Lymphocytes % (Manual) [Pending], Platelet Estimate [Pending], Platelet Morphology [Pending], Sodium Level 141, Potassium Level 3.6, Chloride Level 105, Carbon Dioxide Level 26, Anion Gap 10, Blood Urea Nitrogen 42H, Creatinine 2.1H, Estimat Glomerular Filtration Rate 23.4, Glucose Level 104, Calcium Level 8.7, Total Bilirubin 0.3, Aspartate Amino Transf (AST/SGOT) 36, Alanine Aminotransferase (ALT/SGPT) 63, Alkaline Phosphatase 188H, Pro-B-Type Natriuretic Peptide 72283D, Total Protein 7.4, Albumin 3.0L, Globulin 4.4, Albumin/Globulin Ratio 0.7L Height (Feet): 5 Height (Inches): 4.00 Weight (Pounds): 178 General Appearance: no apparent distress Cardiovascular: normal rate Respiratory/Chest: decreased breath sounds Abdomen: soft Jay Severino MD Oct 12, 2019 10:37
[2019-10-12] MEDS ORDERED: Vancomycin 1.25gm/NS Premix q24h IVPB SCH (13:00)
--- NOTE | 2019-10-12 13:19 | Consultation ---
History of Present Illness General Chief Complaint: Chest Pain Reason for Consultation: Leukocytosis Present Illness HPI Ms. Aguayo is a 69 yo female with PMHx of DM, HTN, CHF who presented to the ED on 10/10/19 with SOB. The patient reports that she was recently admitted to [facility]. She reports being there for a few days but does not know what was found. After being D/C'd she developed SOB over a few days and so came to the ED. In the ED she was lethargic and had to be placed on BiPAP. In the ED she was found to have NSTEMI. Over the three days of her hospitalization her WBC have continued to increase. UA, and Blood Cx negative. She is now on 2L NC and reports no pain or discomfort ID was consulted for Leukocytosis PMHx/PSHx CHF HTN DM SocHx No E/T/D FamHx Not Contributory Allergies: Coded Allergies: No Known Allergies (Unverified , 10/10/19) Medication History Scheduled Atorvastatin Calcium* (Atorvastatin Calcium*), Unknown Dose ORAL BEDTIME, ( Reported) Miscellaneous Medications Hydrochlorothiazide* (Hydrochlorothiazide*), Unknown Dose ORAL, (Reported) Lisinopril (Lisinopril*), Unknown Dose ORAL, (Reported) Metformin Hcl* (Metformin Hcl*), Unknown Dose ORAL, (Reported) Patient History Healthcare decision maker Resuscitation status Advanced Directive on File Review of Systems ROS Narrative 12 point ROS negative except as noted in the HPI Physical Exam Last 24 Hour Vital Signs Date Time Temp Pulse Resp B/P (MAP) Pulse Ox O2 Delivery O2 Flow Rate FiO2 10/12/19 12:42 138/65 10/12/19 12:00 73 10/12/19 09:07 77 150/75 10/12/19 09:07 77 150/75 10/12/19 09:07 150/75 10/12/19 09:00 74 20 150/75 (100) 99 10/12/19 08:28 98 Nasal Cannula 2.0 28 10/12/19 08:00 74 10/12/19 08:00 3.0 10/12/19 08:00 Nasal Cannula 3.0 10/12/19 08:00 98.0 73 20 144/74 (97) 98 10/12/19 07:00 74 17 143/76 (98) 98 10/12/19 06:00 79 17 163/77 (105) 98 10/12/19 05:51 154/60 10/12/19 05:00 70 17 154/60 (91) 98 10/12/19 04:43 98.2 10/12/19 04:00 Nasal Cannula 3.0 10/12/19 04:00 70 10/12/19 04:00 98.1 70 21 170/71 (104) 97 10/12/19 04:00 3.0 10/12/19 03:00 75 21 169/93 (118) 99 10/12/19 02:00 70 21 168/95 (119) 99 10/12/19 01:00 76 21 143/77 (99) 99 10/12/19 00:35 192/104 10/12/19 00:00 98.2 81 21 179/84 (115) 99 10/12/19 00:00 81 10/12/19 00:00 Nasal Cannula 3.0 10/11/19 23:00 84 20 169/83 (111) 97 10/11/19 22:00 77 20 156/73 (100) 97 10/11/19 21:12 171/85 10/11/19 21:00 82 23 165/84 (111) 99 10/11/19 20:00 Nasal Cannula 3.0 10/11/19 20:00 98 Nasal Cannula 2.0 28 10/11/19 20:00 98.5 80 23 161/79 (106) 99 10/11/19 20:00 85 10/11/19 20:00 3.0 10/11/19 19:00 88 22 171/85 (113) 98 10/11/19 18:00 85 24 127/79 (95) 99 10/11/19 17:50 143/77 10/11/19 17:00 79 10/11/19 17:00 73 23 143/77 (99) 96 10/11/19 16:00 Nasal Cannula 3.0 10/11/19 16:00 98.0 78 21 118/72 (87) 98 10/11/19 16:00 3.0 10/11/19 16:00 69 10/11/19 15:00 80 21 120/63 (82) 98 10/11/19 14:00 83 20 116/84 (95) 98 10/11/19 13:18 154/88 10/11/19 13:18 154/88 Intake and Output 10/11/19 10/12/19 19:00 07:00 Intake Total 529.87594 ml 1226.420 ml Output Total 750 ml 2100 ml Balance -220.82770 ml -873.580 ml Intake Oral 280 ml 900 ml IV Total 249.20141 ml 326.420 ml Output Urine Total 750 ml 2100 ml Laboratory Tests Test 10/11/19 20:06 10/12/19 03:20 10/12/19 11:50 Activated Partial Thromboplast Time 47 SEC (23-33) H 129 SEC (23-33) H 102 SEC (23-33) H Troponin I 3.388 ng/mL (0.000-0.056) 3.931 ng/mL (0.000-0.056) White Blood Count 25.5 K/UL (4.8-10.8) #*H Red Blood Count 3.52 M/UL (4.20-5.40) L Hemoglobin 9.6 G/DL (12.0-16.0) L Hematocrit 29.6 % (37.0-47.0) L Mean Corpuscular Volume 84 FL (80-99) Mean Corpuscular Hemoglobin 27.4 PG (27.0-31.0) Mean Corpuscular Hemoglobin Concent 32.5 G/DL (32.0-36.0) Red Cell Distribution Width 14.0 % (11.6-14.8) Platelet Count 351 K/UL (150-450) Mean Platelet Volume 6.4 FL (6.5-10.1) L Neutrophils (%) (Auto) % (45.0-75.0) Lymphocytes (%) (Auto) % (20.0-45.0) Monocytes (%) (Auto) % (1.0-10.0) Eosinophils (%) (Auto) % (0.0-3.0) Basophils (%) (Auto) % (0.0-2.0) Differential Total Cells Counted 100 Neutrophils % (Manual) 71 % (45-75) Lymphocytes % (Manual) 24 % (20-45) Monocytes % (Manual) 5 % (1-10) Eosinophils % (Manual) 0 % (0-3) Basophils % (Manual) 0 % (0-2) Band Neutrophils 0 % (0-8) Platelet Estimate Adequate Platelet Morphology Normal Anisocytosis 1+ Sodium Level 141 MMOL/L (136-145) Potassium Level 3.6 MMOL/L (3.5-5.1) Chloride Level 105 MMOL/L (98-107) Carbon Dioxide Level 26 MMOL/L (21-32) Anion Gap 10 mmol/L (5-15) Blood Urea Nitrogen 42 mg/dL (7-18) H Creatinine 2.1 MG/DL (0.55-1.30) H Estimat Glomerular Filtration Rate 23.4 mL/min (>60) Glucose Level 104 MG/DL (74-106) Calcium Level 8.7 MG/DL (8.5-10.1) Total Bilirubin 0.3 MG/DL (0.2-1.0) Aspartate Amino Transf (AST/SGOT) 36 U/L (15-37) Alanine Aminotransferase (ALT/SGPT) 63 U/L (12-78) Alkaline Phosphatase 188 U/L (46-116) H Pro-B-Type Natriuretic Peptide 21211 pg/mL (0-125) H Total Protein 7.4 G/DL (6.4-8.2) Albumin 3.0 G/DL (3.4-5.0) L Globulin 4.4 g/dL Albumin/Globulin Ratio 0.7 (1.0-2.7) L Height (Feet): 5 Height (Inches): 4.00 Weight (Pounds): 178 Medications Current Medications Medications (Trade) Dose Ordered Sig/[place] Route PRN Reason Start Time Stop Time Status Last Admin Dose Admin Acetaminophen (Tylenol) 650 mg Q4H PRN ORAL Mild Pain/Temp > 100.5 10/11/19 16:30 11/09/19 12:29 10/11/19 23:49 Albuterol/ Ipratropium (Albuterol/ Ipratropium) 3 ml Q4H PRN HHN Shortness of Breath 10/10/19 12:30 10/15/19 12:29 Allopurinol (Allopurinol) 300 mg DAILY ORAL 10/11/19 09:00 11/10/19 08:59 10/12/19 09:06 Amlodipine Besylate (Norvasc) 5 mg BID ORAL 10/12/19 18:00 11/11/19 08:59 Amlodipine Besylate (Norvasc) 5 mg DAILY ORAL 10/12/19 09:00 10/12/19 18:00 10/12/19 09:07 Aspirin (ASA) 162 mg DAILY ORAL 10/11/19 09:00 11/10/19 08:59 10/12/19 09:08 Atorvastatin Calcium (Lipitor) 80 mg BEDTIME ORAL 10/11/19 21:00 11/10/19 20:59 10/11/19 21:08 Barium Sulfate (Readi-Cat 2) 450 ml NOW PRN ORAL Radiology Procedure 10/12/19 12:00 10/14/19 11:49 Clonidine HCl (Catapres Tab) 0.1 mg Q4H PRN ORAL bp over 160 syst 10/12/19 10:45 11/11/19 10:44 Dextrose (Dextrose 50%) 25 ml Q30M PRN IV Hypoglycemia 10/10/19 19:00 11/09/19 18:59 Dextrose (Dextrose 50%) 50 ml Q30M PRN IV Hypoglycemia 10/10/19 19:00 11/09/19 18:59 Diltiazem HCl (Cardizem) 10 mg Q1H PRN IV heart rate more than 120, 10/10/19 12:30 11/09/19 12:29 Docusate Sodium (Colace) 100 mg THREE TIMES A DAY ORAL 10/10/19 18:00 11/09/19 17:59 10/12/19 12:42 Furosemide (Lasix) 20 mg EVERY 12 HOURS IV 10/10/19 21:00 11/09/19 20:59 10/12/19 09:06 Heparin Sodium/ Dextrose 500 ml @ 24.239 mls/ hr ADJUST PER PROTOCOL IV 10/12/19 06:00 11/11/19 05:59 10/12/19 05:52 Hydralazine HCl (Apresoline) 25 mg Q8HR ORAL 10/12/19 14:00 11/09/19 21:59 Insulin Aspart (NovoLOG) BEFORE MEALS AND HS SUBQ 10/10/19 21:00 11/09/19 20:59 10/12/19 11:15 Insulin Detemir (Levemir) 20 units BEDTIME SUBQ 10/12/19 21:00 11/09/19 20:59 Isosorbide Dinitrate (Isordil) 30 mg TID ORAL 10/10/19 20:59 11/09/19 20:58 10/12/19 12:42 Metoprolol Tartrate (Lopressor) 25 mg Q12HR ORAL 10/12/19 09:00 11/11/19 08:59 10/12/19 09:07 Morphine Sulfate (Morphine Sulfate) 2 mg Q4H PRN IVP severe Pain (Pain Scale 7-10) 10/10/19 12:30 10/17/19 12:29 10/12/19 04:13 Nateglinide (Starlix) 120 mg TIAC ORAL 10/10/19 16:30 11/09/19 16:29 10/12/19 11:14 Nitroglycerin (Ntg) 0.4 mg Q5M PRN SL Prn Chest Pain 10/10/19 12:30 11/09/19 12:29 Ondansetron HCl (Zofran) 4 mg Q6H PRN IVP Nausea & Vomiting 10/10/19 12:30 11/09/19 12:29 Pantoprazole (Protonix) 40 mg BID ORAL 10/10/19 18:00 11/10/19 08:59 10/12/19 09:07 Piperacillin Sod/ Tazobactam Sod 3.375 gm/Sodium Chloride 110 ml @ 27.5 mls/hr Q8H IVPB 10/12/19 20:00 10/19/19 19:59 Polyethylene Glycol (Miralax) 17 gm DAILYPRN PRN ORAL Constipation 10/10/19 12:30 11/09/19 12:29 Temazepam (Restoril) 15 mg HSPRN PRN ORAL Insomnia 10/10/19 12:30 10/17/19 12:29 10/11/19 21:11 Vancomycin HCl (Vanco rx to dose) 1 ea DAILY PRN MISC Per rx protocol 10/12/19 11:45 11/11/19 11:44 Vancomycin/Sodium Chloride 275 ml @ 183.333 mls/hr ONCE IVPB 10/12/19 13:00 10/12/19 15:00 Objective Narrative Gen: NAD on 2L NC HEENT: NCAT, MMM, EOMI, PERRL, No Oral lesion, no scleral icterus NECK: full range of motion, supple, no meningismus, No LAD, No JVD LUNGS: CTAB, No W/C, No Accessory muscle use CARDS: RRR, S1, S2, No M/R/G, ABD: Soft, NT, ND, No R/G, + BS, No HSM, No Masses : Deferred Ext: C/C/E, Pulses 2+ B/L (DP, Rad): NEURO: A/O x 4, Strength and Sensation Grossly intact PSYCH: Normal mood and affect SKIN: Warm/dry, No rashes Assessment/Plan Assessment/Plan: 69 yo female with PMHx of DM, HTN, CHF who presented to the ED on 10/10/19 with SOB. Leukocytosis [place] vs infection Blood Cx 10/10/19 - NGTD UA neg 10/10/19 CXR 10/12/19 - Cardiomegaly, bilateral pleural effusions, bilateral interstitial and airspace edema persist, largely unchanged VENANCIO CHF HTN DM PLAN: - Continue Vancocmyin #1 and Zosyn #1 - Repeat UA - Monitor CBC and Temps Thank you for this consult. [facility] will continue to follow the patient with you during this hospitalization. Dean Hand MD Oct 12, 2019 13:19
[2019-10-12] MEDS ORDERED: HydrALAZINE 25mg tab ORAL SCH (14:00)
--- NOTE | 2019-10-12 14:32 | General Progress Note ---
Assessment/Plan Problem List: (1) CHF (congestive heart failure) ICD Codes: I50.9 - Heart failure, unspecified SNOMED: 47664434 (2) Respiratory failure ICD Codes: J96.90 - Respiratory failure, unspecified, unspecified whether with hypoxia or hypercapnia SNOMED: 146635932 (3) Acute respiratory failure ICD Codes: J96.00 - Acute respiratory failure, unspecified whether with hypoxia or hypercapnia SNOMED: 62377521 (4) Diabetes mellitus ICD Codes: E11.9 - Type 2 diabetes mellitus without complications SNOMED: 10591275 (5) ACS (acute coronary syndrome) ICD Codes: I24.9 - Acute ischemic heart disease, unspecified SNOMED: 200507555 (6) History of hypertension ICD Codes: Z86.79 - Personal history of other diseases of the circulatory system SNOMED: 075150150 (7) Diabetic nephropathy ICD Codes: E11.21 - Type 2 diabetes mellitus with diabetic nephropathy SNOMED: 004151588 (8) Moderate pulmonary arterial systolic hypertension ICD Codes: I27.21 - Secondary pulmonary arterial hypertension SNOMED: 39806899 (9) Renal failure (ARF), acute on chronic ICD Codes: N17.9 - Acute kidney failure, unspecified; N18.9 - Chronic kidney disease, unspecified SNOMED: 561901074 (10) Left bundle branch block (LBBB) ICD Codes: I44.7 - Left bundle-branch block, unspecified SNOMED: 54589407 Status: unchanged Assessment/Plan: o2 pum tx bp bs control pt diet cbc bmp am transfer for cath Subjective Constitutional: Reports: weakness Allergies: Coded Allergies: No Known Allergies (Unverified , 10/10/19) All Systems: reviewed and negative except above Subjective o2nc calm in bed in icu Objective Last 24 Hour Vital Signs Date Time Temp Pulse Resp B/P (MAP) Pulse Ox O2 Delivery O2 Flow Rate FiO2 10/12/19 14:15 131/69 10/12/19 13:00 68 19 131/69 (89) 98 10/12/19 12:42 138/65 10/12/19 12:00 Nasal Cannula 3.0 10/12/19 12:00 73 10/12/19 12:00 98.1 68 20 143/70 (94) 98 10/12/19 12:00 3.0 10/12/19 11:00 69 18 129/66 (87) 98 10/12/19 10:00 75 17 115/91 (99) 98 10/12/19 09:07 77 150/75 10/12/19 09:07 77 150/75 10/12/19 09:07 150/75 10/12/19 09:00 74 20 150/75 (100) 99 10/12/19 08:28 98 Nasal Cannula 2.0 28 10/12/19 08:00 74 10/12/19 08:00 3.0 10/12/19 08:00 Nasal Cannula 3.0 10/12/19 08:00 98.0 73 20 144/74 (97) 98 10/12/19 07:00 74 17 143/76 (98) 98 10/12/19 06:00 79 17 163/77 (105) 98 10/12/19 05:51 154/60 10/12/19 05:00 70 17 154/60 (91) 98 10/12/19 04:43 98.2 10/12/19 04:00 Nasal Cannula 3.0 10/12/19 04:00 70 10/12/19 04:00 98.1 70 21 170/71 (104) 97 10/12/19 04:00 3.0 10/12/19 03:00 75 21 169/93 (118) 99 10/12/19 02:00 70 21 168/95 (119) 99 10/12/19 01:00 76 21 143/77 (99) 99 10/12/19 00:35 192/104 10/12/19 00:00 98.2 81 21 179/84 (115) 99 10/12/19 00:00 81 10/12/19 00:00 Nasal Cannula 3.0 10/11/19 23:00 84 20 169/83 (111) 97 10/11/19 22:00 77 20 156/73 (100) 97 10/11/19 21:12 171/85 10/11/19 21:00 82 23 165/84 (111) 99 10/11/19 20:00 Nasal Cannula 3.0 10/11/19 20:00 98 Nasal Cannula 2.0 28 10/11/19 20:00 98.5 80 23 161/79 (106) 99 10/11/19 20:00 85 10/11/19 20:00 3.0 10/11/19 19:00 88 22 171/85 (113) 98 10/11/19 18:00 85 24 127/79 (95) 99 10/11/19 17:50 143/77 10/11/19 17:00 79 10/11/19 17:00 73 23 143/77 (99) 96 10/11/19 16:00 Nasal Cannula 3.0 10/11/19 16:00 98.0 78 21 118/72 (87) 98 10/11/19 16:00 3.0 10/11/19 16:00 69 10/11/19 15:00 80 21 120/63 (82) 98 Intake and Output 10/11/19 10/12/19 19:00 07:00 Intake Total 529.61443 ml 1226.420 ml Output Total 750 ml 2100 ml Balance -220.51375 ml -873.580 ml Intake Oral 280 ml 900 ml IV Total 249.45866 ml 326.420 ml Output Urine Total 750 ml 2100 ml Laboratory Tests 10/11/19 20:06: Activated Partial Thromboplast Time 47H, Troponin I 3.388H 10/12/19 03:20: Activated Partial Thromboplast Time 129H, Troponin I 3.931H, White Blood Count 25.5#*H, Red Blood Count 3.52L, Hemoglobin 9.6L, Hematocrit 29.6L, Mean Corpuscular Volume 84, Mean Corpuscular Hemoglobin 27.4, Mean Corpuscular Hemoglobin Concent 32.5, Red Cell Distribution Width 14.0, Platelet Count 351, Mean Platelet Volume 6.4L, Neutrophils (%) (Auto) , Lymphocytes (%) (Auto) , Monocytes (%) (Auto) , Eosinophils (%) (Auto) , Basophils (%) (Auto) , Differential Total Cells Counted 100, Neutrophils % (Manual) 71, Lymphocytes % ( Manual) 24, Monocytes % (Manual) 5, Eosinophils % (Manual) 0, Basophils % ( Manual) 0, Band Neutrophils 0, Platelet Estimate Adequate, Platelet Morphology Normal, Anisocytosis 1+, Sodium Level 141, Potassium Level 3.6, Chloride Level 105, Carbon Dioxide Level 26, Anion Gap 10, Blood Urea Nitrogen 42H, Creatinine 2.1H, Estimat Glomerular Filtration Rate 23.4, Glucose Level 104, Calcium Level 8.7, Total Bilirubin 0.3, Aspartate Amino Transf (AST/SGOT) 36, Alanine Aminotransferase (ALT/SGPT) 63, Alkaline Phosphatase 188H, Pro-B-Type Natriuretic Peptide 18216Q, Total Protein 7.4, Albumin 3.0L, Globulin 4.4, Albumin/Globulin Ratio 0.7L 10/12/19 11:50: Activated Partial Thromboplast Time 102H Height (Feet): 5 Height (Inches): 4.00 Weight (Pounds): 178 General Appearance: lethargic EENT: normal ENT inspection Neck: normal alignment Cardiovascular: normal peripheral pulses, normal rate, regular rhythm Respiratory/Chest: chest wall non-tender, lungs clear, normal breath sounds Abdomen: normal bowel sounds, non tender, soft Extremities: normal inspection Edema: no edema noted Arm (L), no edema noted Arm (R), no edema noted Leg (L), no edema noted Leg (R), no edema noted Pedal (L), no edema noted Pedal (R), no edema noted Generalized Neurologic: motor weakness Skin: normal pigmentation, warm/dry Dyllan King DO Oct 12, 2019 14:32
[2019-10-12] MEDS ORDERED: Tubing IV Secondary IV ONE (15:24)
[2019-10-12] MEDS ORDERED: NS 275ml ONE (15:24)
--- NOTE | 2019-10-12 16:01 | Diagnostic Imaging Report ---
Indication: Abdominal pain Technique: Supine view of the abdomen Comparison: none Findings: A moderate amount of gas is seen within the stomach. Moderate stool is seen within the colon. No gaseous distention of large or small bowel demonstrated. No masses or unusual calcifications. The included lower chest demonstrates a right-sided pleural effusion and cardiomegaly Impression: No definite acute abdominal process Right pleural effusion incidentally noted
[2019-10-12] MEDS ORDERED: Piperacillin/Tazobactam 3.375 GM in NS 110 ML IVPB SCH (20:00)
[2019-10-12] MEDS ORDERED: Levemir Flexpen SUBQ SCH (21:00)
--- NOTE | 2019-10-13 11:18 | Discharge Summary ---
Discharge Summary Discharge Summary _ DATE OF ADMISSION: 10/10/2019 DATE OF DISCHARGE: 10/12/2019 DISCHARGED BY: Dr. Dyllan King CONSULTANTS: Dr. Jay aHnd [facility] COURSE: Patient is an 69-year-old female, who presented to emergency department complaining of one-week worsening shortness of breath. Patient complained of chest discomfort and cough. Patient was brought in by paramedics. She has history of diabetes and hypertension. Upon evaluation at ED, the patient showed respiratory distress. She was given albuterol and Atrovent nebulizer treatment. She was placed on BiPAP. Chest x- ray showed evidence of pulmonary congestion. Blood work showed elevated WBC to 13.5. Hemoglobin 10, hematocrit 32. Electrolytes were normal. Creatinine elevated to 1.9, BUN 35. Glucose was 436. Lactic acid 5.4. Troponin was negative. proBNP 80780. Influenza screening was negative. He was started empirically on IV antibiotics. She was admitted for evaluation of respiratory failure and CHF. She was admitted to ICU. Cardiac enzymes were monitored. Patient complained of chest pain, did not appear to be on exertion. Symptoms are more shortness of breath. No fatigue on exertion she gets short of breath when walking. She uses 2 pillows because of orthopnea. She had PND episodes. She does not have any dizziness on standing. No heart pounding or palpitations. The patient has congestive heart failure, left bundle branch conduction defect, possible suggestive of cardiomyopathy. She is taking home medications including benazepril, diuretic and insulin. She was started on Isordil and nitroglycerin paste and hydralazine in combination with diuretics. Blood glucose was monitored. Patient was treated with Levemir and NovoLog insulin. She was given Starlix 120 mg before each meal. Kidney function was monitored. Renal ultrasound showed normal echogenicity on both kidneys. No hydronephrosis. Troponin spiked to 6.09. She was started on heparin drip. She was continued on aspirin and statin. Echocardiogram showed EF of 55%, moderate MR, RVSP of 49 consistent with moderate pulmonary hypertension. Norvasc and beta-humza was added to her regimen. Leukocytosis was trending. Urinalysis was negative. Chest x-ray was stable. Patient with no diarrhea. She was started empirically on IV vancomycin and Zosyn. Blood culture did not isolate any growth. She was eventually taken off BiPAP support and was saturating well on nasal cannula. Patient was transferred to [facility] for cardiac catheterization. FINAL DIAGNOSES: Acute coronary syndrome/non-ST elevated TX Acute hypoxemic respiratory failure requiring BiPAP, resolved Possible sepsis versus SIRS Diabetes mellitus [id number] Acute on chronic renal failure CHF Moderate pulmonary hypertension Moderate mitral regurgitation Diabetic nephropathy Anemia Hypertension DISPOSITION: Patient was transferred to [facility]. I have been assigned to complete a discharge summary on this account, I was not involved with the patient's management.--OLIVER Escobar Jacqueline Robles NP Oct 13, 2019 11:18
== END 2019-10-12 15:25 | disposition short-term general hospital (02) | DRG 280 ==
LOC: EDBD 10:06 → EMR 10:50 → ICU 11:14 → EDBEDREQ 12:42 → ICU 16:07
DX: I13.0 Hypertensive heart and chronic kidney disease with heart failure and stage 1 through stage 4 chronic kidney disease, or unspecified chronic kidney disease (principal); I21.4 Non-ST elevation (NSTEMI) myocardial infarction; A41.9 Sepsis, unspecified organism; J96.01 Acute respiratory failure with hypoxia; E46 Unspecified protein-calorie malnutrition; N17.9 Acute kidney failure, unspecified; I50.9 Heart failure, unspecified; Z79.4 Long term (current) use of insulin; Z79.899 Other long term (current) drug therapy; Z79.82 Long term (current) use of aspirin; I27.20 Pulmonary hypertension, unspecified; E11.22 Type 2 diabetes mellitus with diabetic chronic kidney disease; N18.9 Chronic kidney disease, unspecified; I44.7 Left bundle-branch block, unspecified; D64.9 Anemia, unspecified; E11.65 Type 2 diabetes mellitus with hyperglycemia; I34.0 Nonrheumatic mitral (valve) insufficiency
CPT/HCPCS: 36415; 36600; 71045; 74018; 76770; 80053; 80061; 81001; 82043; 82550; 82607; 82728; 82746; 82803; 82962; 82977; 83036; 83540; 83550; 83605; 83690; 83735; 83880; 83935; 84100; 84300; 84443; 84484; 84550; 85007; 85025; 85610; 85730; 86140; 86710; 87040; 87081; 89050; 93005; 93306; 94660; 96365; 96375; 99291; J1815; S5561

== ENCOUNTER 2019-11-10 23:39 | Inpatient (IN) | payer MEDICARE, OTHER ==
[~2019-11-10] VITALS: Ht 162.6 cm; Wt 87.8 kg
[~2019-11-10 23:39] MED LIST: ATORVASTATIN CA20 MG ORAL; HYDROCHLOROTH12.5 M2 ORAL; LISINOPRIL5 MG ORAL; METFORMIN HCL500 M1 ORAL
[2019-11-11] VITALS (7 sets, daily range): BP systolic 105–143; BP diastolic 50–83
[2019-11-11] MEDS ORDERED: Ketorolac 30mg Inj IV ONE (01:00)
[2019-11-11] MEDS ORDERED: Insulin Human Regular 100units/ml 3ml IV ONE (01:00)
[2019-11-11 01:09] LABS: ALANINE AMINOTRANSFERASE 119 U/L (12-78); ALBUMIN 2.9 G/DL (3.4-5.0); ALBUMIN/GLOBULIN RATIO 0.7 (1.0-2.7); ALKALINE PHOSPHATASE 239 U/L (46-116); ANION GAP 16 mmol/L (5-15); ASPARTATE AMINO TRANSFERASE 96 U/L (15-37); BILIRUBIN,TOTAL 0.2 MG/DL (0.2-1.0); BLOOD UREA NITROGEN 66 mg/dL (7-18); CALCIUM 8.1 MG/DL (8.5-10.1); CARBON DIOXIDE 20 MMOL/L (21-32); CHLORIDE 95 MMOL/L (98-107); CREATININE 3.3 MG/DL (0.55-1.30); POTASSIUM 4.6 MMOL/L (3.5-5.1); SODIUM 131 MMOL/L (136-145)
--- NOTE | 2019-11-11 01:09 | NUR ---
To CT abdomen.
--- NOTE | 2019-11-11 01:12 | Emergency Room Report ---
History of Present Illness General Chief Complaint: General Complaint Source: Patient, Medical Record, EMS Present Illness HPI This is a 69-year-old female with history of diabetes high blood pressure. She also has a history of surgery. She presents with chief complaint of high sugar. Similar symptom in the past. No nausea no vomiting. She also has abdominal pain that has been ongoing since September. Denies any other complaint. Nothing made it better. Nothing made it worse. Does complain of right flank pain. Denies any urinary complaint. Allergies: Coded Allergies: No Known Allergies (Unverified , 10/10/19) Patient History Past Medical History: see triage record, old chart reviewed, DM, HTN Past Surgical History: other Pertinent Family History: none Social History: Denies: smoking Immunizations: other Reviewed Nursing Documentation: PMH: Agreed; PSxH: Agreed Nursing Documentation-PMH Past Medical History: No History, Except For Hx Hypertension: Yes Hx Diabetes: Yes Review of Systems Eye: Denies: eye pain, blurred vision ENT: Denies: ear pain, nose congestion, throat swelling Respiratory: Denies: cough, shortness of breath Cardiovascular: Denies: chest pain, palpitations Gastrointestinal: Reports: abdominal pain; Denies: diarrhea, nausea, vomiting Musculoskeletal: Denies: back pain, joint pain Skin: Denies: rash Neurological: Denies: headache, numbness Endocrine: Denies: increased thirst, increased urine Hematologic/Lymphatic: Denies: easy bruising All Other Systems: negative except mentioned in HPI Physical Exam Vital Signs Date Time Temp Pulse Resp B/P (MAP) Pulse Ox O2 Delivery O2 Flow Rate FiO2 11/10/19 23:40 98.4 48 14 127/71 (89) 98 Room Air Normal Sp02 EP Interpretation: reviewed, normal General Appearance: well appearing, no apparent distress, alert Head: normocephalic, atraumatic Eyes: bilateral eye PERRL, bilateral eye EOMI ENT: hearing grossly normal, normal pharynx Neck: full range of motion, supple, no meningismus Respiratory: chest non-tender, lungs clear, normal breath sounds Cardiovascular #1: regular rate, rhythm, no murmur Gastrointestinal: normal bowel sounds, no mass, no organomegaly, no bruit, non- distended, tenderness - Diffuse Musculoskeletal: back normal, normal range of motion, gait/station normal Psychiatric: mood/affect normal Medical Decision Making Diagnostic Impression: Primary Impression: Hyperglycemia due to type 2 diabetes mellitus Qualified Codes: E11.65 - Type 2 diabetes mellitus with hyperglycemia; Z79.4 - terminal clerk (current) use of insulin Additional Impressions: UTI (urinary tract infection) Qualified Codes: N30.00 - Acute cystitis without hematuria Community acquired pneumonia Qualified Codes: J18.9 - Pneumonia, unspecified organism VENANCIO (acute kidney injury) Anemia Qualified Codes: D64.9 - Anemia, unspecified Proteinuria Qualified Codes: R80.9 - Proteinuria, unspecified Abdominal pain Qualified Codes: R10.84 - Generalized abdominal pain Cirrhosis of liver Qualified Codes: K74.60 - Unspecified cirrhosis of liver; R18.8 - Other ascites ER Course Patient presents with hyperglycemia. Probably worsened because of infection. She does have a UTI. She has no cough or congestion or hypoxia. Her CT scan of the abdomen did show a left lower lobe infiltrate. I covered with antibiotics. Her abdominal pain seemed to be chronic. No evidence of an acute abdomen or obstruction. Have cirrhotic liver and mild ascites. No evidence of DKA. No evidence of any sepsis. Patient is otherwise stable for admission versus transfer. Patient approved for admission here. She is been persistently bradycardic in the 40s. This is probably secondary to her beta-blockade. Will admit to telemetry. I contacted Dr. King for admission he admitted her 30 days ago. EKG Diagnostic Results Rate: normal, bradycardiac Rhythm: NSR ST Segments: no acute changes Rhythm Strip Diag. Results EP Interpretation: yes Rate: 46 Rhythm: NSR, no PVC's, no ectopy CT/MRI/US Diagnostic Results CT/MRI/US Diagnostic Results : Imaging Test Ordered: CT abdomen pelvis Impression Read by radiologist. Left lower lobe infiltrate. Cirrhotic liver. Diverticulosis. Last Vital Signs Date Time Temp Pulse Resp B/P (MAP) Pulse Ox O2 Delivery O2 Flow Rate FiO2 11/11/19 00:35 50 16 11/10/19 23:40 98.4 127/71 (89) 98 Room Air Status: improved Condition: Serious Vinicio Jade MD Nov 11, 2019 01:12
[2019-11-11 01:19] LABS: HEMATOCRIT 25.9 % (37.0-47.0); HEMOGLOBIN 8.7 G/DL (12.0-16.0); LYMPHOCYTES % (AUTO) 15.4 % (20.0-45.0); MEAN CORPUSCULAR VOLUME 84 FL (80-99); MONOCYTES % (AUTO) 4.5 % (1.0-10.0); NEUTROPHILS % (AUTO) 77.1 % (45.0-75.0); PLATELET COUNT 233 K/UL (150-450); RED CELL DISTRIBUTION WIDTH 14.7 % (11.6-14.8)
--- NOTE | 2019-11-11 01:25 | NUR ---
ED Nurse Note: Recieved pt returning from imaging, pt is awake, alert and oriented x 4, mostly pashto speaking, pt here for elevated blood sugar level, taken and MD informed immediately of high result, pt c/o having abd pain, lower at 8/10, will resume care as ordered, place on monitoring and resume as ordered.
--- NOTE | 2019-11-11 01:41 | Diagnostic Imaging Report ---
EXAM: CT Abdomen and Pelvis Without Intravenous Contrast CLINICAL HISTORY: ABD PAIN TECHNIQUE: Axial computed tomography images of the abdomen and pelvis without intravenous contrast. CTDI is 26.2 mGy and DLP is 1458.5 mGy-cm. One or more of the following dose reduction techniques were used: automated exposure control, adjustment of the mA and/or kV according to patient size, use of iterative reconstruction technique. COMPARISON: No relevant prior studies available. FINDINGS: Lung bases: Ground glass opacities within the left lower lobe which may be inflammatory or infectious process. Pleural space: Small right and trace left-sided pleural effusion. Heart: Calcifications of the coronary arteries and mitral valve annulus. ABDOMEN: Liver: Cirrhotic liver. Gallbladder and bile ducts: Unremarkable. Pancreas: Unremarkable. Spleen: Unremarkable. Adrenals: Thickening of the left adrenal gland. Kidneys and ureters: Cysts within the right kidney. Nonobstructing calculi within the right kidney. Stomach and bowel: Noninflamed colonic diverticulosis. PELVIS: Appendix: No findings to suggest acute appendicitis. Bladder: Unremarkable. Reproductive: Unremarkable as visualized. ABDOMEN and PELVIS: Intraperitoneal space: Small amount of free fluid within the abdomen and pelvis. Bones/joints: No acute fracture. No dislocation. Soft tissues: Unremarkable. Vasculature: Vascular calcifications. No abdominal aortic aneurysm. Lymph nodes: Unremarkable. IMPRESSION: 1. Small right and trace left-sided pleural effusion. 2. Ground glass opacities within the left lower lobe which may be inflammatory or infectious process. 3. Cirrhotic liver. Mild ascites. 4. Noninflamed colonic diverticulosis. 5. Non-obstructing calculus within the right kidney.
[2019-11-11] MEDS ORDERED: cefTRIAXone 1 GM in NS 55 ML IVPB ONE (01:45)
[2019-11-11] MEDS ORDERED: NITRO0.4 SL (02:21)
[2019-11-11] MEDS ORDERED: LINZESS145 MCG PO (02:21)
[2019-11-11] MEDS ORDERED: ALLOPURINOL300 M1 ORAL (02:21)
[2019-11-11] MEDS ORDERED: DITROPAN XL10 MG ORAL (02:21)
[2019-11-11] MEDS ORDERED: METOPROLOL SUC100 MG ORAL (02:21)
[2019-11-11] MEDS ORDERED: HYDROCHLOROTH12.5 MG ORAL (02:21)
[2019-11-11] MEDS ORDERED: BENAZEPRIL HCL40 MG ORAL (02:21)
[2019-11-11] MEDS ORDERED: ISOSORBIDE DINI30 MG ORAL (02:21)
[2019-11-11 02:31] LABS: APPEARANCE,URINE SLIGHTLY CLOUDY; BILIRUBIN, URINE NEGATIVE (NEGATIVE); COLOR,URINE AMBER; GLUCOSE, URINE (UA) 3+ (NEGATIVE); KETONES,URINE NEGATIVE (NEGATIVE); LEUKOCYTE ESTERASE ,URINE 3+ (NEGATIVE); NITRITE,URINE NEGATIVE (NEGATIVE); PH,URINE 5 (4.5-8.0); PROTEIN,URINE 4+ (NEGATIVE); UROBILINOGEN,URINE NORMAL MG/DL (0.0-1.0)
[2019-11-11] MEDS ORDERED: NOVOLOG100 UNIT/5 (02:33)
[2019-11-11] MEDS ORDERED: FUROSEMIDE20 M1 ORAL (02:33)
[2019-11-11] MEDS ORDERED: MAPAP500 M2 PO (02:33)
[2019-11-11] MEDS ORDERED: GABAPENTIN300 MG ORAL (02:33)
[2019-11-11] MEDS ORDERED: BETAMETHASONE D15 GM TP (02:33)
[2019-11-11] MEDS ORDERED: PANTOPRAZOLE SO40 MG ORAL (02:33)
[2019-11-11] MEDS ORDERED: ZITHROMAX250 MG ORAL (02:33)
[2019-11-11] MEDS ORDERED: FUROSEMIDE40 MG ORAL (02:33)
[2019-11-11] MEDS ORDERED: HYDRALAZINE HCL10 MG ORAL (02:33)
[2019-11-11] MEDS ORDERED: AMLODIPINE BESYL5 MG ORAL (02:33)
[2019-11-11] MEDS ORDERED: LIPITOR80 MG ORAL (02:33)
[2019-11-11] MEDS ORDERED: VENTOLIN HFA18 GM INH (02:33)
--- NOTE | 2019-11-11 03:30 | NUR ---
ED Nurse Note: Pt continues to rest quietly in bed, IV antibiotics completted, no s/s of adverse reation noted, pt suddennly awakened and c/o being really hot and sweating, pt remains onc ardiac monitoring, heart rate low at 48, MD is aware, pt denies chest pain, no sob or labored brreathing, accu-check repeated, MD immediately informed of results, pt to be admitted to hospital, will continue to monitor and prepared for admit.
[2019-11-11] MEDS ORDERED: Bacitracin Oint UD TOPIC ONE (04:00)
[2019-11-11] MEDS ORDERED: Atropine Inj 1mg/10ml Syr IVP ONE (05:30)
--- NOTE | 2019-11-11 05:35 | NUR ---
ED Nurse Note: Pt heart rate continuesto drop, now at about 41, MD aware, pt is also having anxiety and restlessness that she did not have before, on cardiac monitoirng, er-tech cesar assisted with translation and states pt is not confused and nothing wrong, pt appears to be different, MD aware and new orders given, will carry out and continue to closely monitor for any changes or distress.
[2019-11-11] MEDS ORDERED: Aspirin Baby 81mg ORAL ONE (05:45)
[2019-11-11] MEDS ORDERED: Enoxaparin 80mg Inj SUBQ ONE (05:45)
--- NOTE | 2019-11-11 06:02 | Diagnostic Imaging Report ---
EXAM: XR Chest, 1 View CLINICAL HISTORY: SOB TECHNIQUE: Frontal view of the chest. COMPARISON: No relevant prior studies available. FINDINGS: Enlarged cardiac silhouette with central vascular congestion, similar to prior. Low lung volumes. Bilateral pleural effusions and bibasilar atelectasis/infiltrates. IMPRESSION: Enlarged cardiac silhouette with central vascular congestion. Bilateral pleural effusions and bibasilar atelectasis/infiltrates.
--- NOTE | 2019-11-11 06:32 | Diagnostic Imaging Report ---
EXAM: CT Head Without Intravenous Contrast CLINICAL HISTORY: AMS TECHNIQUE: Axial computed tomography images of the head/brain without intravenous contrast. CTDI is 63 mGy and DLP is 1457 mGy-cm. One or more of the following dose reduction techniques were used: automated exposure control, adjustment of the mA and/or kV according to patient size, use of iterative reconstruction technique. COMPARISON: No relevant prior studies available. FINDINGS: Brain: No acute intracranial hemorrhage. No CT evidence of acute infarct. No mass effect or midline shift. Generalized involutional changes and chronic microangiopathic white matter disease. Ventricles: Unremarkable. No ventriculomegaly. Bones/joints: Unremarkable. No acute fracture. Soft tissues: Unremarkable. Sinuses: Unremarkable as visualized. Mastoid air cells: Unremarkable as visualized. No mastoid effusion. IMPRESSION: No acute findings.
--- NOTE | 2019-11-11 06:45 | NUR ---
ED Nurse Note: Pt medicated as ordered, heart rate increased, remains low, pt is less agitated and calm, blood sugasr level taken, repeat chemistries drawn and sent to lab, IV site intact and patent, pt denies pain, chest pain or abdominal pain she had earlier, will continue to closely monitor while waiting for admisison bed.
--- NOTE | 2019-11-11 07:47 | NUR ---
ED Nurse Note:called SDU with report, pt. taken to the floor, condition stable
--- NOTE | 2019-11-11 08:00 | NUR ---
NURSE NOTES: Received telephone report from Lanette DELCID at ED.
--- NOTE | 2019-11-11 08:20 | NUR ---
NURSE NOTES: Pt. in bed, awake, alert, confused and forgetful. No sign of distress. Denies pain at present. IV at left AC #18g. in placed patent/intact SL. Bed in low position, locked, bed alarm on. Call light within reach. Will cont. to monitor.
--- NOTE | 2019-11-11 14:57 | General Progress Note ---
Progress Note Progress Note [id number] full note dictated Savana Quarles MD Nov 11, 2019 14:57
--- NOTE | 2019-11-11 15:56 | Cardiology Progress Note ---
Assessment/Plan Assessment/Plan The patient is seen and examined, full consult note is dictated. Objective Last 24 Hour Vital Signs Date Time Temp Pulse Resp B/P (MAP) Pulse Ox O2 Delivery O2 Flow Rate FiO2 11/11/19 11:43 45 11/11/19 09:22 Room Air 11/11/19 08:00 96.3 46 20 143/66 (91) 100 11/11/19 07:45 98.5 43 24 108/83 98 Room Air 11/11/19 07:24 43 24 108/83 98 Room Air 11/11/19 05:00 98.5 41 18 125/68 98 Room Air 11/11/19 03:30 98.5 48 18 113/67 98 Room Air 11/11/19 01:35 98.5 53 18 105/50 99 Room Air 11/11/19 01:30 98.5 11/11/19 00:35 50 16 11/10/19 23:40 98.4 48 14 127/71 (89) 98 Room Air Laboratory Tests Test 11/11/19 00:05 11/11/19 01:50 11/11/19 05:23 11/11/19 06:00 White Blood Count 15.0 K/UL (4.8-10.8) H Red Blood Count 3.10 M/UL (4.20-5.40) L Hemoglobin 8.7 G/DL (12.0-16.0) L Hematocrit 25.9 % (37.0-47.0) L Mean Corpuscular Volume 84 FL (80-99) Mean Corpuscular Hemoglobin 27.9 PG (27.0-31.0) Mean Corpuscular Hemoglobin Concent 33.4 G/DL (32.0-36.0) Red Cell Distribution Width 14.7 % (11.6-14.8) Platelet Count 233 K/UL (150-450) Mean Platelet Volume 7.7 FL (6.5-10.1) Neutrophils (%) (Auto) 77.1 % (45.0-75.0) H Lymphocytes (%) (Auto) 15.4 % (20.0-45.0) L Monocytes (%) (Auto) 4.5 % (1.0-10.0) Eosinophils (%) (Auto) 2.0 % (0.0-3.0) Basophils (%) (Auto) 1.0 % (0.0-2.0) Sodium Level 131 MMOL/L (136-145) L Pending Potassium Level 4.6 MMOL/L (3.5-5.1) Pending Chloride Level 95 MMOL/L (98-107) L Pending Carbon Dioxide Level 20 MMOL/L (21-32) L Pending Anion Gap 16 mmol/L (5-15) H Blood Urea Nitrogen 66 mg/dL (7-18) H Pending Creatinine 3.3 MG/DL (0.55-1.30) H Pending Estimat Glomerular Filtration Rate 13.9 mL/min (>60) Pending Glucose Level 510 MG/DL (74-106) *H Pending Calcium Level 8.1 MG/DL (8.5-10.1) L Pending Total Bilirubin 0.2 MG/DL (0.2-1.0) Aspartate Amino Transf (AST/SGOT) 96 U/L (15-37) H Alanine Aminotransferase (ALT/SGPT) 119 U/L (12-78) H Alkaline Phosphatase 239 U/L (46-116) H Troponin I 0.463 ng/mL (0.000-0.056) 0.428 ng/mL (0.000-0.056) Total Protein 7.2 G/DL (6.4-8.2) Albumin 2.9 G/DL (3.4-5.0) L Pending Globulin 4.3 g/dL Albumin/Globulin Ratio 0.7 (1.0-2.7) L Lipase 351 U/L (73-393) Urine Color Hannah Urine Appearance Slightly cloudy Urine pH 5 (4.5-8.0) Urine Specific [place] 1.025 (1.005-1.035) Urine Protein 4+ (NEGATIVE) H Urine Glucose (UA) 3+ (NEGATIVE) H Urine Ketones Negative (NEGATIVE) Urine Blood 2+ (NEGATIVE) H Urine Nitrite Negative (NEGATIVE) Urine Bilirubin Negative (NEGATIVE) Urine Ictotest Negative (NEGATIVE) Urine Urobilinogen Normal MG/DL (0.0-1.0) Urine Leukocyte Esterase 3+ (NEGATIVE) H Urine RBC 5-10 /HPF (0 - 2) H Urine WBC 20-30 /HPF (0 - 2) H Urine Squamous Epithelial Cells Moderate /LPF (NONE/OCC) H Urine Bacteria Moderate /HPF (NONE) H Urine Mucus Few /LPF (NONE/OCC) H Phosphorus Level Pending Sina Alfonso MD Nov 11, 2019 15:56
--- NOTE | 2019-11-11 16:05 | NUR ---
NURSE NOTES: Pt. hand over care to Min RN. Pt. remain stable.
--- NOTE | 2019-11-11 16:12 | NUR ---
NURSE NOTES: Received report from Shweta DELCID. Pt in bed awake and orientedx2 but forgetful. Denied SOB. Icelandic speaking only. No c/o pain. No acute distress noted. IV site in LAC 18G SL patent and asymptomatic. Skin evaluation done and noted dry scab and scratch on left knee and multiple bruises from previous fall. Will continue to plan of care.
--- NOTE | 2019-11-11 16:15 | Consultation ---
DATE OF CONSULTATION: 11/11/2019 NEPHROLOGY CONSULTATION REFERRING PHYSICIAN: Dyllan King D.O. REASON FOR CONSULTATION: Acute on chronic renal failure. HISTORY OF PRESENT ILLNESS: The patient is a 69-year-old female with past medical history significant for diabetes, hypertension, dyslipidemia, history of chronic kidney disease, baseline creatinine is unknown, and history of knee surgery, who was basically presented to emergency room complaining of high blood sugars she had. She was recently admitted in the hospital with pleural effusion and status post thoracentesis. She also had a history of fall on her knee last night prior to hospital visit. ALLERGIES: No known drug allergies. PAST MEDICAL HISTORY: Including diabetes, hypertension, diabetic neuropathy, diabetic retinopathy, history of dyslipidemia, and history of chronic kidney disease. MEDICATIONS: List was reviewed. SOCIAL HISTORY: She lives at home with a grandson. There is no history of tobacco, alcohol, or drug use. REVIEW OF SYSTEMS: GENERAL: She complained of generalized weakness. No fever. No chills. No night sweats. HEAD AND NECK: Denies any dysphagia, odynophagia, blurry vision, headache, or neck stiffness. PULMONARY: Shortness of breath. No cough. No sputum. CARDIOVASCULAR: She complained of orthopnea, PND, and leg swelling. GASTROINTESTINAL: Denies any nausea, vomiting, diarrhea, hematemesis, or hematochezia. GENITOURINARY: Denies any dysuria, frequency, or hematuria. MUSCULOSKELETAL: Denies any weakness or numbness. PHYSICAL EXAMINATION: VITAL SIGNS: The patient had temperature of 98 degrees, blood pressure 143/66, and pulse rate of 45. HEAD AND NECK: No JVP. No LAD. No thyromegaly. Extraocular movement intact. Pupils are reactive to light and accommodation. LUNGS: Decreased breathing sounds on both sides. CARDIAC: Regular rate and rhythm. S1 and S2. No murmur. No rub. ABDOMEN: Soft, nontender, and nondistended. EXTREMITIES: 2+ edema. No clubbing. No cyanosis. LABORATORY AND DIAGNOSTIC DATA: The patient had WBC count of 15, hemoglobin of 8.7, hematocrit of 25, and platelet count of 233,000. Chemistry revealed sodium 131, potassium 4.6, 95 chloride, 20 bicarb, BUN 66, creatinine of 3.3, glucose of 510, and calcium of 8.1. AST of 96 and ALT of 119. Troponin is mildly elevated. Albumin of 2.9. UA revealed specific gravity of 1.020, pH of 5, protein 4+, glucose 3+, blood 2+, rbc 5 to 10, wbc of 20 to 30. ASSESSMENT: For this patient: 1. Acute renal failure. The etiology of acute renal failure is ATN due to unstable hemodynamics. 2. Chronic kidney disease with 4+ proteinuria, diabetic nephropathy versus hypertensive nephrosclerosis versus other cause of nephrotic syndrome. 3. Anion gap acidosis most likely due to renal failure. 4. Hypocalcemia. 5. Elevated liver enzymes. 6. Elevated troponin, questionable non-ST elevation myocardial infarction. 7. Hematuria and proteinuria. PLAN: 1. Plan for the patient to obtain UA. Check the random urine protein creatinine ratio to calculate the proteinuria. Check the urine sodium and creatinine to calculate fractional excretion of sodium. 2. Ultrasound of the kidney to evaluate the kidney size. Monitor renal function and electrolytes closely. I would avoid any NSAID or nephrotoxic. Blood pressure control. The patient is noted to be bradycardic. I would avoid any NSAID or nephrotoxic. I would replace electrolytes as needed. Check the calcium, phosphorous, and PTH for evaluation of renal osteodystrophy. Again, I would like to thank, Dr. Dyllan King for allowing me to participate in the care of this patient. Savana Quarles M.D. DR: Shaye JOB#: [id number] CC:
[2019-11-11] MEDS: NovoLOG Insulin Flexpen SUBQ SCH ×3 (17:07→20:26)
[2019-11-11 17:43] LABS: ALBUMIN 3.1 G/DL (3.4-5.0); ANION GAP 19 mmol/L (5-15); BLOOD UREA NITROGEN 78 mg/dL (7-18); CARBON DIOXIDE 17 MMOL/L (21-32); CHLORIDE 103 MMOL/L (98-107); CREATININE 4.2 MG/DL (0.55-1.30); PHOSPHORUS 6.4 MG/DL (2.5-4.9); POTASSIUM 5.3 MMOL/L (3.5-5.1); SODIUM 139 MMOL/L (136-145)
--- NOTE | 2019-11-11 18:22 | NUR ---
NURSE NOTES: Dr. Quarles paged for abnormal labs with BUN/Cr/NA/K. Awaiting for reply.
--- NOTE | 2019-11-11 18:45 | Consultation ---
DATE OF CONSULTATION: 11/11/2019 CARDIOLOGY CONSULTATION CONSULTING PHYSICIAN: Sina Alfonso M.D. REFERRING PHYSICIAN: Tj Suazo M.D. covering for Dyllan King D.O. REASON FOR CONSULTATION: Management of bradycardia. HISTORY OF PRESENT ILLNESS: The patient is a very unfortunate 69-year-old lady who presents to the hospital with increased thirst, polyuria, and extremely elevated blood sugar. She was admitted to this hospital in September 2019 had some cardiovascular workup including 2D echocardiography which showed normal LV systolic and diastolic function with LVEF approximately 55%, [id number] mitral and aortic regurgitation, moderate pulmonary hypertension with right ventricular systolic pressure measured at 49 mmHg. On that admission, the patient had severely elevated brain natriuretic peptide as well as renal failure. Her baseline creatinine level is 1.9. In this admission, the patient also had abdominal pain. She claims that it has been going on since September. She did not have any chest pain or shortness of breath. Initial blood pressure at time of arrival to this facility was 127/71 mmHg and heart rate of 48. Her troponin I level was slightly elevated at 0.46 and repeat of which was 0.02. Cardiology consultation was made at request of Dr. Suazo for evaluation and management of bradycardia as well as elevation of troponin I level. In the previous admission, there was review of records from the Cardiology consultation and at that time reveals the need for left heart catheterization as the patient's troponin was elevated. Apparently this procedure was not done. PAST MEDICAL HISTORY: 1. Hypertension. 2. Diabetes mellitus. 3. History of non-ST elevation myocardial infarction on previous admission. 4. History of chronic kidney disease with baseline creatinine 1.9. 5. Obesity. PAST SURGICAL HISTORY: None. SOCIAL HISTORY: Denies any tobacco, alcohol, or illicit drug use. FAMILY HISTORY: No premature coronary artery disease in the first-degree relatives. REVIEW OF SYSTEMS: A 12-system review done essentially negative except what was mentioned in the history. MEDICATIONS: List of medications reviewed and reconciled. Apparently the patient 's blood pressure medication includes metoprolol, lisinopril, amlodipine, hydralazine, furosemide, hydrochlorothiazide. PHYSICAL EXAMINATION: VITAL SIGNS: Blood pressure was 127/71 mmHg, heart rate of 48 which increased to 53 when the patient stood up, respiration 14, O2 saturation 98% on room air, and temperature 98.4 degrees Fahrenheit. GENERAL: The patient is a very unfortunate 69-year-old female, morbidly obese, in no apparent respiratory distress. Alert and oriented x4. HEENT: Atraumatic and normocephalic. Anicteric. Pupils are equal, round, reactive to light and accommodation. Extraocular muscles intact NECK: JVP less than 5 cm. No carotid bruit. Carotid upstroke is 2+ bilaterally. There is severely dry mucosal membranes. CVS: Normal S1 and S2. Regular rate and rhythm. Bradycardic. A 2/6 mid systolic murmur at left sternal border. PMI is at fourth intercostal space in the midclavicular line. LUNGS: Clear to auscultation bilaterally. ABDOMEN: Soft, nontender, nondistended. Obese. No hepatosplenomegaly. Positive bowel sounds. EXTREMITIES: No evidence of edema, clubbing, or cyanosis. LABORATORY AND DIAGNOSTIC DATA: Sodium 133, potassium 4.6, chloride 95, bicarbonate 20, BUN 66, creatinine 3.3, blood sugar 510. Calcium is 8.1. Troponin I x2 is 0.04. WBC count 15.0, hemoglobin 8.7, hematocrit 25, Electrocardiogram, sinus bradycardia, rate of 48, no acute ischemic changes. ASSESSMENT AND PLAN: The patient is a very unfortunate 69-year-old female, seen in Cardiology consultation. 1. Sinus bradycardia. This could be due to metoprolol use, the patient was apparently taking 100 mg p.o. daily. One dose of atropine did not improve the heart rate significantly. Currently resting heart rate to 53 when the patient is standing up. Of note, the patient is also severely hypovolemic. 2. History of non-ST elevation myocardial infarction in the previous admission, in this admission also troponin I level was elevated so the demand ischemia in the setting of CAD or could be secondary to troponin leak in view of renal failure. We will make an attempt to transfer the patient to facility that has cardiac catheterization such as [facility]. 3. History of hypertension. I have placed a hold on metoprolol, furosemide, hydrochlorothiazide in view of severe hypovolemia and dehydration. I would like to continue with the amlodipine at this time. 4. Acute renal failure. Baseline creatinine 1.9. Current creatinine is up to 3.3. I would like to start the patient on normal saline at 75 mL per hour which will have the patient hyponatremia as well. 5. Diabetes mellitus. The patient was started on aspirin and atorvastatin 40 mg daily. She requires to have tight sugar control. 6. Morbid obesity. I would like to thank, Dr. Suazo, for the courtesy of this consultation. Sina Alfonso M.D. DR: Laurie JOB#: [id number] CC:
--- NOTE | 2019-11-11 18:55 | NUR ---
NURSE NOTES: Dr. Cool paged for abnormal labs with BUN/Cr/K. Awaiting for reply
--- NOTE | 2019-11-11 19:17 | NUR ---
HAND-OFF: Report given to Conchita DELCID. Pt remains stable.
--- NOTE | 2019-11-11 19:34 | NUR ---
NURSE NOTES: Paged Dr. Quarles again for abnormal blood test results with BUN/Cr/K. Awaiting for reply. Per Dr. Cool he is not on the case.
--- NOTE | 2019-11-11 19:59 | NUR ---
NURSE NOTES: RECEIVED PATIENT RESTING IN BED, NO COMPLAINTS OF PAIN AT THIS TIME. FALL PRECAUTIONS IN PLACE: CALL LIGHT AND BEDSIDE TABLE WITHIN REACH, BED IN LOW POSITION AND BED ALARM ON. WILL CONTINUE WITH PLAN OF CARE.
[2019-11-11] MEDS: Levemir Flexpen SUBQ SCH (20:26)
--- NOTE | 2019-11-11 21:00 | NUR ---
NURSE NOTES: DR. ANDERSON CALLED BACK, NO NEW ORDERS.
--- NOTE | 2019-11-11 21:45 | Consultation ---
DATE OF CONSULTATION: 11/11/2019 ENDOCRINOLOGY CONSULTATION REFERRING PHYSICIAN: Tj Suazo M.D. REASON FOR CONSULTATION: Diabetes management. HISTORY OF PRESENT ILLNESS: The patient is a 69-year-old female with history of diabetes and high blood pressure, who has chronic kidney disease, presented with elevated glucose. No nausea or vomiting. Abdominal pain since September with constipation. Glucose was 500 on presentation and there was no evidence of DKA on presentation. The patient is taking metformin and insulin as an outpatient. PAST MEDICAL HISTORY: 1. Diabetes. 2. Hypertension. PAST SURGICAL HISTORY: None listed. FAMILY HISTORY: Noncontributory. SOCIAL HISTORY: No smoking, alcohol, or drug use. REVIEW OF SYSTEMS: As per history of present illness. MEDICATIONS: Reviewed and reconciled. PHYSICAL EXAMINATION: GENERAL: The patient is awake. VITAL SIGNS: Blood pressure is 143/66, temperature of 96.3 degrees, respiratory rate of 12, and heart rate of 46. HEENT: Pupils are equal and reactive to light. Sclerae are anicteric. NECK: No JVD. HEART: Regular. LUNGS: Clear. ABDOMEN: Positive bowel sounds. Soft. EXTREMITIES: Positive for edema. LABORATORY VALUES: Sodium 131, potassium 4.6, chloride 95, bicarb 20, BUN 66, creatinine 3.3, glucose of 510. DIAGNOSES: 1. Renal failure. 2. Diabetes, out of control. PLAN: 1. DC metformin. 2. Insulin regimen, Levemir and NovoLog ordered. Further adjustment according to blood glucose values. Thank you, Dr. Suazo, for the courtesy of this consultation. Jake Alexander M.D. DR: Neo JOB#: [id number] CC: LEILA
[2019-11-12] VITALS: BP 118/71
[2019-11-12] MEDS ORDERED: cefTRIAXone 1 GM in D5W 55 ML IVPB SCH (02:00)
[2019-11-12 04:00] VITALS: BP 139/85
[2019-11-12] MEDS: NovoLOG Insulin Flexpen SUBQ SCH ×7 (06:11→20:40)
--- NOTE | 2019-11-12 07:11 | General Progress Note ---
Assessment/Plan Problem List: (1) VENANCIO (acute kidney injury) ICD Codes: N17.9 - Acute kidney failure, unspecified SNOMED: 52068777, 2106238 (2) Cirrhosis of liver ICD Codes: K74.60 - Unspecified cirrhosis of liver SNOMED: 73440829 Qualifiers: Qualified Codes: K74.60 - Unspecified cirrhosis of liver; R18.8 - Other ascites (3) Diabetes mellitus ICD Codes: E11.9 - Type 2 diabetes mellitus without complications SNOMED: 94224445 (4) Hyperglycemia due to type 2 diabetes mellitus ICD Codes: E11.65 - Type 2 diabetes mellitus with hyperglycemia SNOMED: 118183968694431, 80026841 Qualifiers: Qualified Codes: E11.65 - Type 2 diabetes mellitus with hyperglycemia; Z79.4 - jail (current) use of insulin Assessment/Plan: continue Levemir 20 units daily continue Novolog 6 units ac tid Subjective ROS Limited/Unobtainable: Yes Allergies: Coded Allergies: No Known Allergies (Unverified , 10/10/19) Subjective glucose values improving Item Value Date Time Bedside Blood Glucose 183 mg/dl H 11/12/19 0611 Bedside Blood Glucose 274 mg/dl H 11/11/19 2100 Bedside Blood Glucose 343 mg/dl H 11/11/19 1707 Bedside Blood Glucose 340 mg/dl H 11/11/19 0723 Bedside Blood Glucose Critically High Result 11/11/19 0330 Bedside Blood Glucose 321 mg/dl H 11/11/19 0200 Objective Last 24 Hour Vital Signs Date Time Temp Pulse Resp B/P (MAP) Pulse Ox O2 Delivery O2 Flow Rate FiO2 11/12/19 04:00 46 11/12/19 04:00 97.2 52 20 139/85 (103) 99 11/12/19 00:00 97.5 51 18 118/71 (87) 98 11/12/19 00:00 53 11/11/19 21:00 Room Air 11/11/19 20:00 48 11/11/19 20:00 96.3 50 20 139/75 (96) 98 11/11/19 16:00 47 11/11/19 16:00 97.2 49 18 134/72 (92) 97 11/11/19 11:43 45 11/11/19 09:22 Room Air 11/11/19 08:00 96.3 46 20 143/66 (91) 100 11/11/19 07:45 98.5 43 24 108/83 98 Room Air 11/11/19 07:24 43 24 108/83 98 Room Air Intake and Output 11/11/19 11/12/19 19:00 07:00 Intake Total 150 ml 815 ml Balance 150 ml 815 ml Intake IV Total 150 ml 815 ml # Voids 2 Laboratory Tests 11/11/19 16:20: Sodium Level 139, Potassium Level 5.3H, Chloride Level 103, Carbon Dioxide Level 17L, Anion Gap 19H, Blood Urea Nitrogen 78H, Creatinine 4.2H, Estimat Glomerular Filtration Rate 10.5, Glucose Level 346#H, Calcium Level 8.0L, Phosphorus Level 6.4H, Albumin 3.1L Height (Feet): 5 Height (Inches): 4.00 Weight (Pounds): 188 General Appearance: no apparent distress Neck: normal alignment Cardiovascular: normal rate Respiratory/Chest: lungs clear Abdomen: normal bowel sounds Pelvis: normal external exam Objective Current Medications Medications (Trade) Dose Ordered Sig/[place] Route PRN Reason Start Time Stop Time Status Last Admin Dose Admin Acetaminophen (Tylenol) 650 mg Q4H PRN ORAL Mild Pain/Temp > 100.5 11/11/19 10:15 12/11/19 10:14 Ceftriaxone Sodium 1 gm/ Dextrose 55 ml @ 110 mls/hr Q24H IVPB 11/12/19 02:00 11/19/19 01:59 11/12/19 01:21 Dextrose (Dextrose 50%) 25 ml Q30M PRN IV Hypoglycemia 11/11/19 15:00 12/11/19 14:59 Dextrose (Dextrose 50%) 50 ml Q30M PRN IV Hypoglycemia 11/11/19 15:00 12/11/19 14:59 Insulin Aspart (NovoLOG) BEFORE MEALS AND HS SUBQ 11/11/19 16:30 12/11/19 16:29 11/12/19 06:11 Insulin Aspart (NovoLOG) 6 units NOVOTIAC SUBQ 11/11/19 16:50 12/11/19 16:49 11/11/19 17:07 Insulin Detemir (Levemir) 20 units BEDTIME SUBQ 11/11/19 21:00 12/11/19 20:59 11/11/19 20:26 Sodium Chloride 1,000 ml @ 75 mls/hr [id number] IV 11/11/19 16:45 12/11/19 16:44 11/12/19 04:58 Jake Alexander MD Nov 12, 2019 07:11
--- NOTE | 2019-11-12 07:16 | NUR ---
HAND-OFF: Report given to Landry FRYE. PATIENT RESTING IN BED, NO SIGNS OF DISTRESS NOTED.
[2019-11-12 08:00] VITALS: BP 151/78
--- NOTE | 2019-11-12 08:02 | Nephrology Progress Note ---
Assessment/Plan Assessment/Plan: A/P 1) VENANCIO on CKD 3B- BL Cr 1.9 - ATN multifactorial - component prerenal while being on VIRY-I - Increase IVFs, avoid nephrotoxins - CT ABD no obstruction renals 2) Mild Hyperkalemia- one dose lasix for kaleuresis 3) Hyperglycemia- per endocrinology Subjective Date patient seen: Nov 12, 2019 Time patient seen: 07:59 ROS Limited/Unobtainable: No Allergies: Coded Allergies: No Known Allergies (Unverified , 10/10/19) Subjective Patient up in bed eating bkfst Objective Last 24 Hour Vital Signs Date Time Temp Pulse Resp B/P (MAP) Pulse Ox O2 Delivery O2 Flow Rate FiO2 11/12/19 04:00 46 11/12/19 04:00 97.2 52 20 139/85 (103) 99 11/12/19 00:00 97.5 51 18 118/71 (87) 98 11/12/19 00:00 53 11/11/19 21:00 Room Air 11/11/19 20:00 48 11/11/19 20:00 96.3 50 20 139/75 (96) 98 11/11/19 16:00 47 11/11/19 16:00 97.2 49 18 134/72 (92) 97 11/11/19 11:43 45 11/11/19 09:22 Room Air 11/11/19 08:00 96.3 46 20 143/66 (91) 100 Intake and Output 11/11/19 11/12/19 19:00 07:00 Intake Total 150 ml 890 ml Balance 150 ml 890 ml Intake IV Total 150 ml 890 ml # Voids 2 Laboratory Tests 11/11/19 16:20: Sodium Level 139, Potassium Level 5.3H, Chloride Level 103, Carbon Dioxide Level 17L, Anion Gap 19H, Blood Urea Nitrogen 78H, Creatinine 4.2H, Estimat Glomerular Filtration Rate 10.5, Glucose Level 346#H, Calcium Level 8.0L, Phosphorus Level 6.4H, Albumin 3.1L Height (Feet): 5 Height (Inches): 4.00 Weight (Pounds): 188 General Appearance: no apparent distress, alert EENT: normal ENT inspection Neck: normal alignment, supple Cardiovascular: normal rate, regular rhythm Respiratory/Chest: lungs clear, normal breath sounds Abdomen: non tender, soft Edema: no edema noted Arm (L), no edema noted Arm (R), no edema noted Leg (L), no edema noted Leg (R), no edema noted Pedal (L), no edema noted Pedal (R), no edema noted Generalized Black Alcantara MD Nov 12, 2019 08:02
--- NOTE | 2019-11-12 09:19 | General Progress Note ---
Assessment/Plan Problem List: (1) Renal failure (ARF), acute on chronic ICD Codes: N17.9 - Acute kidney failure, unspecified; N18.9 - Chronic kidney disease, unspecified SNOMED: 775479556 (2) Diabetic nephropathy ICD Codes: E11.21 - Type 2 diabetes mellitus with diabetic nephropathy SNOMED: 132126799 (3) Anemia ICD Codes: D64.9 - Anemia, unspecified SNOMED: 632795145 Qualifiers: Qualified Codes: D64.9 - Anemia, unspecified (4) Community acquired pneumonia ICD Codes: J18.9 - Pneumonia, unspecified organism SNOMED: 397449088 Qualifiers: Qualified Codes: J18.9 - Pneumonia, unspecified organism (5) UTI (urinary tract infection) ICD Codes: N39.0 - Urinary tract infection, site not specified SNOMED: 25142214, 44744576 Qualifiers: Qualified Codes: N30.00 - Acute cystitis without hematuria (6) Diabetes mellitus ICD Codes: E11.9 - Type 2 diabetes mellitus without complications SNOMED: 68484894 (7) VENANCIO (acute kidney injury) ICD Codes: N17.9 - Acute kidney failure, unspecified SNOMED: 72649407, 2004061 (8) Hyperglycemia due to type 2 diabetes mellitus ICD Codes: E11.65 - Type 2 diabetes mellitus with hyperglycemia SNOMED: 605708228951604, 98523727 Qualifiers: Qualified Codes: E11.65 - Type 2 diabetes mellitus with hyperglycemia; Z79.4 - termination clerk (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) use of insulin Status: stable, progressing Assessment/Plan: pt diet abx cbc bmp am Subjective Constitutional: Reports: weakness Allergies: Coded Allergies: No Known Allergies (Unverified , 10/10/19) All Systems: reviewed and negative except above Subjective sleepy calm in bed Objective Last 24 Hour Vital Signs Date Time Temp Pulse Resp B/P (MAP) Pulse Ox O2 Delivery O2 Flow Rate FiO2 11/12/19 08:00 97.3 57 18 151/78 (102) 96 11/12/19 04:00 46 11/12/19 04:00 97.2 52 20 139/85 (103) 99 11/12/19 00:00 97.5 51 18 118/71 (87) 98 11/12/19 00:00 53 11/11/19 21:00 Room Air 11/11/19 20:00 48 11/11/19 20:00 96.3 50 20 139/75 (96) 98 11/11/19 16:00 47 11/11/19 16:00 97.2 49 18 134/72 (92) 97 11/11/19 11:43 45 11/11/19 09:22 Room Air Intake and Output 11/11/19 11/12/19 19:00 07:00 Intake Total 150 ml 1030 ml Balance 150 ml 1030 ml Intake Oral 140 ml IV Total 150 ml 890 ml # Voids 2 Laboratory Tests 11/11/19 16:20: Sodium Level 139, Potassium Level 5.3H, Chloride Level 103, Carbon Dioxide Level 17L, Anion Gap 19H, Blood Urea Nitrogen 78H, Creatinine 4.2H, Estimat Glomerular Filtration Rate 10.5, Glucose Level 346#H, Calcium Level 8.0L, Phosphorus Level 6.4H, Albumin 3.1L 11/12/19 06:10: Urine Eosinophils [Pending], Urine Random Creatinine [Pending], Urine Random Microalbumin [Pending], Urine Random Total Protein 317H, Urine Random Sodium 15L , Urine Creatinine 209.1H, Urine Microalbumin/Creatinine Ratio [Pending] Height (Feet): 5 Height (Inches): 4.00 Weight (Pounds): 188 General Appearance: lethargic EENT: normal ENT inspection Neck: normal alignment Cardiovascular: normal peripheral pulses, normal rate, regular rhythm Respiratory/Chest: chest wall non-tender, lungs clear, normal breath sounds Abdomen: normal bowel sounds, non tender, soft Extremities: normal inspection Edema: no edema noted Arm (L), no edema noted Arm (R), no edema noted Leg (L), no edema noted Leg (R), no edema noted Pedal (L), no edema noted Pedal (R), no edema noted Generalized Neurologic: motor weakness Skin: normal pigmentation, warm/dry Dyllan King DO Nov 12, 2019 09:19
--- NOTE | 2019-11-12 09:52 | NUR ---
*-* INSURANCE *-* ALL AVAILABLE CLINICALS HAVE BEEN FAXED TO: ROBERTA LESTER # [phone] FAX#[phone] ELIZA/CLINICALS
--- NOTE | 2019-11-12 11:17 | Consultation ---
History of Present Illness General Date patient seen: Nov 12, 2019 Chief Complaint: General Complaint Present Illness HPI 69 y/o F with hx of Dm2, HTN, HLD, CKD (bl cr 1.9), NSTEMI, obesity, knee surgery, pleural effusion s/p thoracentesis presented to ED on 11/10 with abdominal pain, constipation, and recent fall. Upon admission glucose was 500 Denied nausea, vomiting Allergies: Coded Allergies: No Known Allergies (Unverified , 10/10/19) Medication History Scheduled Albuterol Sulfate (Ventolin Hfa), 2 PUFFS INH EVERY 6 HOURS, (Reported) Allopurinol* (Allopurinol*), 300 MG ORAL DAILY, (Reported) Amlodipine Besylate* (Amlodipine Besylate*), 5 MG ORAL DAILY, (Reported) Atorvastatin (Lipitor), 80 MG ORAL DAILY, (Reported) Atorvastatin Calcium* (Atorvastatin Calcium*), Unknown Dose ORAL BEDTIME, ( Reported) Azithromycin* (Zithromax*), 250 MG ORAL DAILY, (Reported) Benazepril Hcl* (Benazepril Hcl*), 40 MG ORAL DAILY, (Reported) Furosemide* (Lasix*), 20 MG ORAL DAILY, (Reported) Furosemide* (Lasix*), 40 MG ORAL DAILY, (Reported) Gabapentin* (Gabapentin*), 300 MG ORAL DAILY, (Reported) Hydralazine Hcl* (Hydralazine Hcl*), 10 MG ORAL EVERY 8 HOURS, (Reported) Hydrochlorothiazide* (Hydrochlorothiazide*), 12.5 MG ORAL DAILY, (Reported) Isosorbide Dinitrate* (Isordil*), 30 MG ORAL TWICE A DAY, (Reported) Metoprolol Succinate* (Metoprolol Succinate*), 100 MG ORAL DAILY, (Reported) Oxybutynin Chloride (Ditropan Xl), 10 MG ORAL DAILY, (Reported) Pantoprazole* (Pantoprazole*), 40 MG ORAL EVERY 12 HOURS, (Reported) Scheduled PRN Nitroglycerin 0.4MG table* (Nitroglycerin*), 0.4 MG SL .Q5MIN X 3 DOSES PRN for CHEST PAIN, (Reported) Miscellaneous Medications Acetaminophen (Mapap), 500 MG PO, (Reported) Betamet Diprop/Prop Gly (Betamethasone Dp Aug 0.05% Crm), 15 GM TP, (Reported) Hydrochlorothiazide* (Hydrochlorothiazide*), Unknown Dose ORAL, (Reported) Insulin Aspart (Novolog), 60, (Reported) Linaclotide (Linzess), 145 MCG PO, (Reported) Lisinopril (Lisinopril*), Unknown Dose ORAL, (Reported) Metformin Hcl* (Metformin Hcl*), Unknown Dose ORAL, (Reported) Patient History Healthcare decision maker Resuscitation status Advanced Directive on File Patient History Narrative Pmhx: as above Shx: No smoking, alcohol, or drug use. She lives at home with a grandson. Fhx: non contributory Review of Systems All Other Systems: negative except mentioned in HPI Physical Exam Physical Exam Narrative HEAD AND NECK: No JVP. No LAD. No thyromegaly. Extraocular movement intact. Pupils are reactive to light and accommodation. LUNGS: Decreased breathing sounds on both sides. CARDIAC: Regular rate and rhythm. S1 and S2. No murmur. No rub. ABDOMEN: Soft, nontender, and nondistended. EXTREMITIES: 2+ edema. No clubbing. No cyanosis. Last 24 Hour Vital Signs Date Time Temp Pulse Resp B/P (MAP) Pulse Ox O2 Delivery O2 Flow Rate FiO2 11/12/19 09:00 Room Air 11/12/19 08:00 97.3 57 18 151/78 (102) 96 11/12/19 08:00 61 11/12/19 04:00 46 11/12/19 04:00 97.2 52 20 139/85 (103) 99 11/12/19 00:00 97.5 51 18 118/71 (87) 98 11/12/19 00:00 53 11/11/19 21:00 Room Air 11/11/19 20:00 48 11/11/19 20:00 96.3 50 20 139/75 (96) 98 11/11/19 16:00 47 11/11/19 16:00 97.2 49 18 134/72 (92) 97 11/11/19 11:43 45 Intake and Output 11/11/19 11/12/19 19:00 07:00 Intake Total 150 ml 1030 ml Balance 150 ml 1030 ml Intake Oral 140 ml IV Total 150 ml 890 ml # Voids 2 Laboratory Tests Test 11/11/19 16:20 11/12/19 06:10 Sodium Level 139 MMOL/L (136-145) Potassium Level 5.3 MMOL/L (3.5-5.1) H Chloride Level 103 MMOL/L (98-107) Carbon Dioxide Level 17 MMOL/L (21-32) L Anion Gap 19 mmol/L (5-15) H Blood Urea Nitrogen 78 mg/dL (7-18) H Creatinine 4.2 MG/DL (0.55-1.30) H Estimat Glomerular Filtration Rate 10.5 mL/min (>60) Glucose Level 346 MG/DL (74-106) #H Calcium Level 8.0 MG/DL (8.5-10.1) L Phosphorus Level 6.4 MG/DL (2.5-4.9) H Albumin 3.1 G/DL (3.4-5.0) L Urine Eosinophils None seen (NONE SEEN) Urine Random Creatinine Pending Urine Random Microalbumin Pending Urine Random Total Protein 317 MG/DL (< 11.9) H Urine Random Sodium 15 mmol/L (20-110) L Urine Creatinine 209.1 MG/DL (30.0-125.0) H Urine Microalbumin/Creatinine Ratio Pending Height (Feet): 5 Height (Inches): 4.00 Weight (Pounds): 188 Medications Current Medications Medications (Trade) Dose Ordered Sig/Bra[place] Route PRN Reason Start Time Stop Time Status Last Admin Dose Admin Acetaminophen (Tylenol) 650 mg Q4H PRN ORAL Mild Pain/Temp > 100.5 11/11/19 10:15 12/11/19 10:14 11/12/19 09:37 Ceftriaxone Sodium 1 gm/ Dextrose 55 ml @ 110 mls/hr Q24H IVPB 11/12/19 02:00 11/19/19 01:59 11/12/19 01:21 Dextrose (Dextrose 50%) 25 ml Q30M PRN IV Hypoglycemia 11/11/19 15:00 12/11/19 14:59 Dextrose (Dextrose 50%) 50 ml Q30M PRN IV Hypoglycemia 11/11/19 15:00 12/11/19 14:59 Insulin Aspart (NovoLOG) BEFORE MEALS AND HS SUBQ 11/11/19 16:30 12/11/19 16:29 11/12/19 06:11 Insulin Aspart (NovoLOG) 6 units NOVOTIAC SUBQ 11/11/19 16:50 12/11/19 16:49 11/11/19 17:07 Insulin Detemir (Levemir) 20 units BEDTIME SUBQ 11/11/19 21:00 12/11/19 20:59 11/11/19 20:26 Sodium Chloride 1,000 ml @ 100 mls/hr Q10H IV 11/12/19 08:15 12/11/19 08:14 11/12/19 09:29 Assessment/Plan Assessment/Plan: Abx: Ceftriaxone 11/11- Assessment: Probable sepsis vs SIRS Probable PNA -11/11 CXR: Enlarged cardiac silhouette with central vascular congestion.Bilateral pleural effusions and bibasilar atelectasis/infiltrates. PYuria/bacteriuria -u/a wbc 20-30, nit neg, leuk +3; ucx 20-30k Mixed urogenital contaminants Mild hypothermia Leukocytosis Bradycardia Abdominal pain -CT abd/p: Small right and trace left-sided pleural effusion.Ground glass opacities within the left lower lobe which may be inflammatory or infectious process.Cirrhotic liver. Mild ascites. Noninflamed colonic diverticulosis. Non -obstructing calculus within the right kidney. Acute encephalopathy -CT head: no acute findings Hyperglycemia VENANCIO on CKD (bl cr 1.9) Dm2 HTN HLD NSTEMI obesity s/p knee surgery hx of pleural effusion s/p thoracentesis Plan: -Continue empiric Ceftriaxone #2 for now -f/u cx -Monitor CBC/CMP, temperatures -Influenza sc, sp cx -aspiration precautions -Nephro, endo f/u Thank you for this consultation. Will continue to follow along with you. Discussed with Marielena Eason M.D. Nov 12, 2019 11:17
--- NOTE | 2019-11-12 11:49 | NUR ---
NURSE NOTES: Patient stable aox4. No complaints and no s/sx of distress. RR even and unlabored on RA. Abdominal dressing dry and intact. Bowel sounds present and passing gas. Abdomen soft. Side rails upx2, call light within reach, bed low and locked. Will continue to monitor. Addendum: 11/12/19 at 1153 by ALFIE SANDY RN Patient does not have abdominal dressing.
[2019-11-12 12:00] VITALS: BP 155/80
--- NOTE | 2019-11-12 13:50 | NUR ---
PT EVALUATION NOTE Patient seen for initial evaluation. Patient presents with generalized weakness and impaired balance which affects patient's ability to perform mobility tasks safely. Patient requires min assist for bed mobility and CGA for transfers with FWW. Patient able to ambulate 75 ft with CGA and FWW, slightly unsteady however no loss of balance. Patient denied dizziness during ambulation. Patient will benefit from skilled inpatient PT intervention to address strength, balance and safety for improved level of functional mobility. Recommend discharge home with home PT once medically cleared by MD. Patient has FWW at home for ambulation. Addendum: 11/12/19 at 1445 by SKYLAR MCKEON PT Amended: Links added.
--- NOTE | 2019-11-12 14:15 | History and Physical Report ---
DATE OF ADMISSION: 11/11/[address] Dyllan King. This is Dr. Dyllan King's patient. HISTORY OF PRESENT ILLNESS: The patient comes in, admitted for pneumonia, hyperglycemia, acute renal failure. The patient is complaining of shortness of breath and cough on top of chronic renal failure hyperglycemia, and acute renal failure. The patient denies nausea, vomiting, or diarrhea. Does have shortness of breath and cough. PAST MEDICAL HISTORY: Chronic renal insufficiency, history of anemia, history of NIDDM, history of hypertension, history of gout, history of hyperlipidemia, history of IBS, history of urinary incontinence, and GERD. PAST SURGICAL HISTORY: Denies. ALLERGIES: No known allergies. FAMILY HISTORY: Noncontributory. SOCIAL HISTORY: Denies history of drug abuse. Denies history of alcohol abuse. Denies history of smoking. REVIEW OF SYSTEMS: HEENT: headaches. RESPIRATORY: ____ shortness of breath cough. CARDIOVASCULAR: Denies chest pain. GASTROINTESTINAL: Denies nausea, vomiting, or diarrhea. Does have some abdominal pain. EXTREMITIES: Denies pain in the lower extremities. CENTRAL NERVOUS SYSTEM: Denies change in speech pattern. Feels very weak. PHYSICAL EXAMINATION: VITAL SIGNS: Temperature 98.5, pulse is 43, blood pressure is 108/83. HEENT: PERRLA. NECK: Supple. No lymphadenopathy. CHEST: Clear to auscultation. CARDIOVASCULAR: Bradycardic. No murmur. GASTROINTESTINAL: Soft, nontender, nondistended. No organomegaly. EXTREMITIES: 1+ edema. NEUROLOGIC: Reflexes are equal on both sides. Moves all four extremities. She has generalized weakness. LABORATORY DATA: , hemoglobin 8.7, platelets of 233. Sodium 131, potassium 4.6, BUN of 66, creatinine 3.3, and glucose of 510. Troponin 0.463. ASSESSMENT AND PLAN: Elevated troponin, hyperglycemia, nonketotic. The patient is also being admitted for basically acute renal failure on top of chronic renal failure as well as for UTI and elevated troponin. I have asked Dr. Quarles, Dr. Alfonso, and to see the patient for the above-mentioned diagnoses and treatment. Antibiotics per . Tj Suazo M.D. DR: YUKI JOB#: [id number] CC:
--- NOTE | 2019-11-12 14:34 | Diagnostic Imaging Report ---
Indication:Elevated Bun and Creatinine. Technique: Grayscale and duplex Doppler imaging of the kidneys performed. Comparison: None Findings: The size, contour, and echogenicity of both kidneys are within normal limits. There is no hydronephrosis.. The right kidney measures 9.9 cm. in length. The left kidney measures 10.1 cm. in length. There are multiple cysts present within the right kidney largest of which is about 2.4 cm. The IVC is patent. Urinary bladder is unremarkable. IMPRESSION: Negative ultrasound the kidneys. Multiple right renal cysts.
--- NOTE | 2019-11-12 15:30 | Consultation ---
DATE OF CONSULTATION: 11/12/2019 PULMONARY CONSULTATION CONSULTING PHYSICIAN: Mario Alberto Heller M.D. HISTORY OF PRESENT ILLNESS: This is a 69-year-old female with a history of hypertension, hyperlipidemia, and diabetes mellitus. She presented with hyperglycemia. She also reported epigastric pain. Overnight, the patient was seen, admitted to the hospital, and was seen by Cardiology and Nephrology. She has a baseline creatinine unknown and a creatinine noted yesterday was 3.3. Nephrology was consulted. She was seen by Endocrinology for hyperglycemia. Cardiology evaluated her and noted that she has a history of [id number] aortic and mitral stenosis and moderate pulmonary hypertension with right ventricular systolic pressure being 49. She had a previous MO and CKD. She also has noted obesity. The patient underwent imaging studies, which showed a large cardiac silhouette suggestive of pulmonary edema. She also had bilateral pleural effusions. PAST MEDICAL HISTORY: Notable as discussed above for hypertension, diabetes mellitus, previous MO, CKD, obesity. SURGERIES: None reported. REVIEW OF SYSTEMS: Denies any headaches, hematemesis, melena, hematochezia, night sweats, or weight loss. CURRENT MEDICATIONS: Include antibiotic Rocephin, insulin sliding scale Levemir. PHYSICAL EXAMINATION: GENERAL: Reveals an obese female. HEENT: Unremarkable. LUNGS: Clear breath sounds bilaterally. CARDIAC: Normal heart sounds. ABDOMEN: Soft. EXTREMITIES: There is no edema. VITAL SIGNS: Blood pressure is 150/70, heart rate 58, respirations 18, she is afebrile. LABORATORY TESTING: Discussed above white count 15,000 hemoglobin 8.7. Chemistry showed creatinine of now 4.2, potassium 5.3. Troponin 0.46 0.42. Urinalysis shows moderate wbc's. IMPRESSION: 1. Pyuria, possible UTI. 2. Pulmonary edema. 3. Bilateral pleural effusions. 4. Hypertension. 5. Previous MO. 6. Troponin leak. 7. Acute on chronic CKD. 8. Diabetes mellitus. DISCUSSION: Admit to the hospital. Agree with empiric antibiotics. I doubt if the source is pulmonary. It maybe her urine. Continue current medications and care. We will follow as on air talent and corporate trust officer. Multiple specialty consultations appreciated. Diabetes control. Mario Alberto Heller M.D. DR: JENN JOB#: [id number] CC:
[2019-11-12 16:00] VITALS: BP 139/50
--- NOTE | 2019-11-12 16:15 | History and Physical Report ---
DATE OF ADMISSION: 11/11/2019 I am covering for Dr. Dyllan King. This is Dr. Dyllan King's patient. HISTORY OF PRESENT ILLNESS: The patient was admitted for pneumonia, hyperglycemia, acute renal injury. Basically, the patient presented with elevated blood pressure as well as elevated sugar. The patient denies nausea, vomiting, or diarrhea. Denies chills, shortness of breath. Denies cough. Denies orthopnea. Admitted for those reasons. She does have some cough as well. PAST MEDICAL HISTORY: Hypertension, NIDDM, history of hyperlipidemia, leg edema, urinary incontinence, GERD, left bundle-branch block. PAST SURGICAL HISTORY: None. ALLERGIES: No known allergies. MEDICATIONS: Lipitor, benazepril, furosemide, Lasix, insulin, metoprolol, metformin, and lisinopril. FAMILY HISTORY: Does have history of hypertension, diabetes. SOCIAL HISTORY: Denies history of smoking, alcohol, or illicit drugs. REVIEW OF SYSTEMS: HEENT: Denies headaches. RESPIRATORY: Denies shortness of breath. Does have cough. Denies wheezing. CARDIOVASCULAR: Denies chest pain. Denies nausea, vomiting, diarrhea. EXTREMITIES: Does have some mild pain. CENTRAL NERVOUS SYSTEM: Denies change in speech pattern. She has generalized weakness. PHYSICAL EXAMINATION: VITAL SIGNS: Temperature 97.5, pulse 51, blood pressure 118/72. HEENT: PERRLA. NECK: Supple. No lymphadenopathy. CHEST: Clear to auscultation. CARDIOVASCULAR: Bradycardic. GASTROINTESTINAL: Soft, nontender, no organomegaly. EXTREMITIES: She is able to extremities. She has generalized weakness. There is 1+ edema. Reflexes on both sides. LABORATORY DATA: WBC of 15, hemoglobin 8.7, and platelets of 233. Sodium 131, potassium 4.6, BUN of 66, creatinine 3.3, and glucose of 510. Troponin 0.463. ASSESSMENT/PLAN: Rule out myocardial infarction, elevated troponin, hyperglycemia, as well as hyponatremia, acute renal failure as well as leukocytosis, possible pneumonia on x-ray. I have consulted Dr. Alexander, Dr. Quarles, Dr. Alfonso, and Dr. Doug Larios to see for the treatment of the pneumonia and hyperglycemia as well as acute renal failure as well as elevated troponin. We will sign out to Dr. Dyllan King. Tj Suazo M.D. DR: Nuno JOB#: [id number] CC:
--- NOTE | 2019-11-12 16:40 | NUR ---
CASE MANAGEMENT:REVIEW 69 YR OLD FEMALE BIBA FROM HOME CC: BS 400 SI: PNA. HYPERGLYCEMIA. VENANCIO 98.5 48 14 127/71 98% ON RA WBC+15.0 H/H-8.7/25.9 BUN+66 CR+3.3 GLUCOSE+510 IS: IV ZOFRAN IV TORADOL 1L NS BOLUS IV INSULIN IV ROCEPHIN CT ABD/PELVIS : TO TELEMETRY 11/12/19 SI: AC/CHR RENAL FAILURE PNA. UTI. HYPERGLYCEMIA 97.3 57 18 151/78 96% ON RA IS: IV ROCEPHIN Q24 IVF@100/HR LEVEMIR SQ QHS NOVOLOG SQ TID AC : TELEMETRY STATUS
--- NOTE | 2019-11-12 19:20 | NUR ---
NURSE NOTES: Received report from BHAVIN Calles. Patient is awake, lying in semi santana's; resting comfortably. A/Ox4. Primarily Luxembourgish speaking. Denies pain at this time. No signs of acute distress noted. Checked IV site and flushed. No erythema, bleeding or infiltration noted. Bed at lowest position, brakes on, siderailsx3. Call light within reach. Will continue to monitor.
--- NOTE | 2019-11-12 19:44 | NUR ---
HAND-OFF: Report given to Kristine DELCID. Patient stable. Endorsed plan of care.
[2019-11-12 20:00] VITALS: BP 151/85
[2019-11-12] MEDS: cefTRIAXone 1 GM in NS 55 ML IVPB SCH (20:38)
[2019-11-12] MEDS: Levemir Flexpen SUBQ SCH (20:39)
--- NOTE | 2019-11-12 23:46 | Cardiology Progress Note ---
Assessment/Plan Assessment/Plan 1. Sinus bradycardia, resolved, HR is now >60. 2. NSTEMI, transfer to [facility] for cardiac cath 3. History of hypertension, continue amlodipine. 4. Acute kidney injury. 5. Diabetes mellitus, ASA 81mg daily in addition to atorvastatin 40 mg daily. She requires to have tight sugar control. 6. Morbid obesity. Subjective Subjective Sinus rhythm at rate of 62. Objective Last 24 Hour Vital Signs Date Time Temp Pulse Resp B/P (MAP) Pulse Ox O2 Delivery O2 Flow Rate FiO2 11/12/19 21:00 Room Air 11/12/19 20:00 98.1 62 20 151/85 (107) 95 11/12/19 20:00 51 11/12/19 17:39 58 11/12/19 16:00 98.6 61 19 139/50 (79) 100 11/12/19 12:00 97.9 57 19 155/80 (105) 90 11/12/19 12:00 48 11/12/19 09:00 Room Air 11/12/19 08:00 97.3 57 18 151/78 (102) 96 11/12/19 08:00 61 11/12/19 04:00 46 11/12/19 04:00 97.2 52 20 139/85 (103) 99 11/12/19 00:00 97.5 51 18 118/71 (87) 98 11/12/19 00:00 53 Intake and Output 11/11/19 11/12/19 19:00 07:00 Intake Total 150 ml 1105 ml Balance 150 ml 1105 ml Intake Oral 140 ml IV Total 150 ml 965 ml # Voids 2 Laboratory Tests Test 11/12/19 06:10 Urine Eosinophils None seen (NONE SEEN) Urine Random Creatinine Pending Urine Random Microalbumin Pending Urine Random Total Protein 317 MG/DL (< 11.9) H Urine Random Sodium 15 mmol/L (20-110) L Urine Creatinine 209.1 MG/DL (30.0-125.0) H Urine Microalbumin/Creatinine Ratio Pending Microbiology Date/Time Source Procedure Growth Status 11/12/19 13:05 Nasopharynx - Final Complete 11/12/19 13:05 Nasopharynx - Final Complete 11/11/19 01:50 Urine,Clean Catch Urine Culture - Preliminary Mixed Gram Positive Organism Resulted Objective HEENT: Atraumatic and normocephalic. Anicteric. Pupils are equal, round, reactive to light and accommodation. Extraocular muscles intact NECK: JVP less than 5 cm. No carotid bruit. Carotid upstroke is 2+ bilaterally. There is severely dry mucosal membranes. CVS: Normal S1 and S2. Regular rate and rhythm. Bradycardic. A 2/6 mid systolic murmur at left sternal border. PMI is at fourth intercostal space in the midclavicular line. LUNGS: Clear to auscultation bilaterally. ABDOMEN: Soft, nontender, nondistended. Obese. No hepatosplenomegaly. Positive bowel sounds. EXTREMITIES: No evidence of edema, clubbing, or cyanosis. Sina Alfonso MD Nov 12, 2019 23:46
[2019-11-13] VITALS: BP 118/82
--- NOTE | 2019-11-13 00:36 | NUR ---
NURSE NOTES: Resting throughout the night. No significant change of condition noted. Will continue to monitor.
[2019-11-13 04:00] VITALS: BP 139/75
[2019-11-13] MEDS: NovoLOG Insulin Flexpen SUBQ SCH ×7 (05:35→20:57)
[2019-11-13 06:53] LABS: BASOPHILS % (AUTO) 0.6 % (0.0-2.0); EOSINOPHILS % (AUTO) 2.5 % (0.0-3.0); HEMOGLOBIN 8.3 G/DL (12.0-16.0); LYMPHOCYTES % (AUTO) 14.4 % (20.0-45.0); MEAN CORPUSCULAR VOLUME 84 FL (80-99); MONOCYTES % (AUTO) 4.7 % (1.0-10.0); NEUTROPHILS % (AUTO) 77.8 % (45.0-75.0); PLATELET COUNT 198 K/UL (150-450); RED BLOOD COUNT 2.99 M/UL (4.20-5.40); RED CELL DISTRIBUTION WIDTH 14.6 % (11.6-14.8); WHITE BLOOD COUNT 15.7 K/UL (4.8-10.8)
--- NOTE | 2019-11-13 07:00 | NUR ---
HAND-OFF: Report given to BHAVIN Calles. Plan of care endorsed.
--- NOTE | 2019-11-13 07:05 | General Progress Note ---
Assessment/Plan Problem List: (1) VENANCIO (acute kidney injury) ICD Codes: N17.9 - Acute kidney failure, unspecified SNOMED: 19336728, 1188907 (2) Cirrhosis of liver ICD Codes: K74.60 - Unspecified cirrhosis of liver SNOMED: 86004723 Qualifiers: Qualified Codes: K74.60 - Unspecified cirrhosis of liver; R18.8 - Other ascites (3) Diabetes mellitus ICD Codes: E11.9 - Type 2 diabetes mellitus without complications SNOMED: 58409898 (4) Hyperglycemia due to type 2 diabetes mellitus ICD Codes: E11.65 - Type 2 diabetes mellitus with hyperglycemia SNOMED: 940219798473177, 93399321 Qualifiers: Qualified Codes: E11.65 - Type 2 diabetes mellitus with hyperglycemia; Z79.4 - MCC (current) use of insulin Status: stable, progressing Assessment/Plan: continue Levemir 20 units daily continue Novolog 6 units ac tid continue NISS ac / hs Subjective ROS Limited/Unobtainable: Yes Allergies: Coded Allergies: No Known Allergies (Unverified , 10/10/19) Subjective events noted glucose values are stable Item Value Date Time Bedside Blood Glucose 173 mg/dl H 11/13/19 0630 Bedside Blood Glucose 197 mg/dl H 11/12/19 2100 Bedside Blood Glucose 182 mg/dl H 11/12/19 1759 Bedside Blood Glucose 199 mg/dl H 11/12/19 1210 Bedside Blood Glucose 183 mg/dl H 11/12/19 0611 Objective Last 24 Hour Vital Signs Date Time Temp Pulse Resp B/P (MAP) Pulse Ox O2 Delivery O2 Flow Rate FiO2 11/13/19 04:00 97.8 78 18 139/75 (96) 98 11/13/19 04:00 65 11/13/19 00:00 96.9 63 18 118/82 (94) 95 11/13/19 00:00 63 11/12/19 21:00 Room Air 11/12/19 20:00 98.1 62 20 151/85 (107) 95 11/12/19 20:00 51 11/12/19 17:39 58 11/12/19 16:00 98.6 61 19 139/50 (79) 100 11/12/19 12:00 97.9 57 19 155/80 (105) 90 11/12/19 12:00 48 11/12/19 09:00 Room Air 11/12/19 08:00 97.3 57 18 151/78 (102) 96 11/12/19 08:00 61 Intake and Output 11/12/19 11/13/19 19:00 07:00 Intake Total 780 ml 1178.67 ml Output Total 800 ml 600 ml Balance -20 ml 578.67 ml Intake Oral 280 ml 120 ml IV Total 500 ml 1058.67 ml Output Urine Total 800 ml 600 ml # Voids 3 4 Laboratory Tests 11/13/19 05:48: White Blood Count [Pending], Red Blood Count [Pending], Hemoglobin [Pending], Hematocrit [Pending], Mean Corpuscular Volume [Pending], Mean Corpuscular Hemoglobin [Pending], Mean Corpuscular Hemoglobin Concent [Pending], Red Cell Distribution Width [Pending], Platelet Count [Pending], Mean Platelet Volume [ Pending], Neutrophils (%) (Auto) [Pending], Lymphocytes (%) (Auto) [Pending], Monocytes (%) (Auto) [Pending], Eosinophils (%) (Auto) [Pending], Basophils (%) (Auto) [Pending], Sodium Level [Pending], Potassium Level [Pending], Chloride Level [Pending], Carbon Dioxide Level [Pending], Blood Urea Nitrogen [Pending], Creatinine [Pending], Estimat Glomerular Filtration Rate [Pending], Glucose Level [Pending], Calcium Level [Pending] Height (Feet): 5 Height (Inches): 4.00 Weight (Pounds): 188 General Appearance: no apparent distress Neck: normal alignment Cardiovascular: normal rate Abdomen: normal bowel sounds Objective Current Medications Medications (Trade) Dose Ordered Sig/Braeden Route PRN Reason Start Time Stop Time Status Last Admin Dose Admin Acetaminophen (Tylenol) 650 mg Q4H PRN ORAL Mild Pain/Temp > 100.5 11/11/19 10:15 12/11/19 10:14 11/12/19 09:37 Amlodipine Besylate (Norvasc) 5 mg DAILY ORAL 11/13/19 09:00 12/13/19 08:59 Aspirin (Ecotrin) 81 mg DAILY ORAL 11/13/19 09:00 12/13/19 08:59 Atorvastatin Calcium (Lipitor) 40 mg BEDTIME ORAL 11/13/19 21:00 12/13/19 20:59 Ceftriaxone Sodium 1 gm/ Sodium Chloride 55 ml @ 110 mls/hr QHS IVPB 11/12/19 21:00 11/19/19 20:59 11/12/19 20:38 Dextrose (Dextrose 50%) 25 ml Q30M PRN IV Hypoglycemia 11/11/19 15:00 12/11/19 14:59 Dextrose (Dextrose 50%) 50 ml Q30M PRN IV Hypoglycemia 11/11/19 15:00 12/11/19 14:59 Insulin Aspart (NovoLOG) BEFORE MEALS AND HS SUBQ 11/11/19 16:30 12/11/19 16:29 11/13/19 05:35 Insulin Aspart (NovoLOG) 6 units NOVOTIAC SUBQ 11/11/19 16:50 12/11/19 16:49 11/13/19 05:35 Insulin Detemir (Levemir) 20 units BEDTIME SUBQ 11/11/19 21:00 12/11/19 20:59 11/12/19 20:39 Sodium Chloride 1,000 ml @ 100 mls/hr Q10H IV 11/12/19 08:15 12/11/19 08:14 11/13/19 04:11 Jake Alexander MD Nov 13, 2019 07:05
[2019-11-13 07:07] LABS: ANION GAP 17 mmol/L (5-15); BLOOD UREA NITROGEN 67 mg/dL (7-18); CALCIUM 8.5 MG/DL (8.5-10.1); CARBON DIOXIDE 19 MMOL/L (21-32); CHLORIDE 108 MMOL/L (98-107); CREATININE 3.2 MG/DL (0.55-1.30); POTASSIUM 3.6 MMOL/L (3.5-5.1); SODIUM 143 MMOL/L (136-145)
--- NOTE | 2019-11-13 07:54 | Nephrology Progress Note ---
Assessment/Plan Status: stable, progressing Assessment/Plan: A/P 1) VENANCIO on CKD 3B- BL Cr 1.9 - ATN multifactorial. Cr improving now down to 3.2 - component prerenal while being on VIRY-I - continue IVFs, avoid nephrotoxins 2) Mild Hyperkalemia- resolved 3) Hyperglycemia- per endocrinology Subjective Date patient seen: Nov 13, 2019 Time patient seen: 07:51 ROS Limited/Unobtainable: No Allergies: Coded Allergies: No Known Allergies (Unverified , 10/10/19) Subjective Patient c/o cough Objective Last 24 Hour Vital Signs Date Time Temp Pulse Resp B/P (MAP) Pulse Ox O2 Delivery O2 Flow Rate FiO2 11/13/19 04:00 97.8 78 18 139/75 (96) 98 11/13/19 04:00 65 11/13/19 00:00 96.9 63 18 118/82 (94) 95 11/13/19 00:00 63 11/12/19 21:00 Room Air 11/12/19 20:00 98.1 62 20 151/85 (107) 95 11/12/19 20:00 51 11/12/19 17:39 58 11/12/19 16:00 98.6 61 19 139/50 (79) 100 11/12/19 12:00 97.9 57 19 155/80 (105) 90 11/12/19 12:00 48 11/12/19 09:00 Room Air 11/12/19 08:00 97.3 57 18 151/78 (102) 96 11/12/19 08:00 61 Intake and Output 11/12/19 11/13/19 19:00 07:00 Intake Total 780 ml 1178.67 ml Output Total 800 ml 600 ml Balance -20 ml 578.67 ml Intake Oral 280 ml 120 ml IV Total 500 ml 1058.67 ml Output Urine Total 800 ml 600 ml # Voids 3 4 Laboratory Tests 11/13/19 05:48: White Blood Count 15.7H, Red Blood Count 2.99L, Hemoglobin 8.3L, Hematocrit 25.0L, Mean Corpuscular Volume 84, Mean Corpuscular Hemoglobin 27.9, Mean Corpuscular Hemoglobin Concent 33.4, Red Cell Distribution Width 14.6, Platelet Count 198, Mean Platelet Volume 7.8, Neutrophils (%) (Auto) 77.8H, Lymphocytes ( %) (Auto) 14.4L, Monocytes (%) (Auto) 4.7, Eosinophils (%) (Auto) 2.5, Basophils (%) (Auto) 0.6, Sodium Level 143, Potassium Level 3.6, Chloride Level 108H, Carbon Dioxide Level 19L, Anion Gap 17H, Blood Urea Nitrogen 67H, Creatinine 3.2H, Estimat Glomerular Filtration Rate 14.4, Glucose Level 192H, Calcium Level 8.5 Height (Feet): 5 Height (Inches): 4.00 Weight (Pounds): 188 General Appearance: no apparent distress, alert EENT: normal ENT inspection Neck: normal alignment, supple Cardiovascular: normal rate, regular rhythm Respiratory/Chest: rhonchi - bilaterally Abdomen: non tender, soft Edema: no edema noted Arm (L), no edema noted Arm (R), no edema noted Leg (L), no edema noted Leg (R), no edema noted Pedal (L), no edema noted Pedal (R), no edema noted Generalized Black Alcantara MD Nov 13, 2019 07:54
[2019-11-13 08:00] VITALS: BP 151/86
--- NOTE | 2019-11-13 08:01 | NUR ---
NURSE NOTES: Patient received from Kristine DELCID. Patient stable AOx4 with no complaints and no s/sx of distress. RR even and unlabored on RA. Lung sounds clear, bowel sounds present. Abdomen soft and non-tender. BL hand strength and BL leg strength 4/5. IV fluids infusing. Eating her breakfast now. Side rails up x2, Call light within reach, bed low and locked. Will continue to monitor.
[2019-11-13] MEDS: Aspirin EC 81mg tab ORAL SCH (09:18)
--- NOTE | 2019-11-13 10:08 | Infectious Diseases Prog Note ---
Assessment/Plan Assessment/Plan Abx: Ceftriaxone 11/11- Assessment: Probable sepsis vs SIRS Probable PNA -11/11 CXR: Enlarged cardiac silhouette with central vascular congestion.Bilateral pleural effusions and bibasilar atelectasis/infiltrates. -influenza sc neg PYuria/bacteriuria -u/a wbc 20-30, nit neg, leuk +3; ucx 20-30k Mixed urogenital contaminants Mild hypothermia Leukocytosis; persistent Bradycardia; SP Abdominal pain -CT abd/p: Small right and trace left-sided pleural effusion.Ground glass opacities within the left lower lobe which may be inflammatory or infectious process.Cirrhotic liver. Mild ascites. Noninflamed colonic diverticulosis. Non -obstructing calculus within the right kidney. Acute encephalopathy -CT head: no acute findings Hyperglycemia VENANCIO on CKD (bl cr 1.9); improving -Renal US: Negative ultrasound the kidneys. Multiple right renal cysts. Dm2 HTN HLD NSTEMI obesity s/p knee surgery hx of pleural effusion s/p thoracentesis Plan: -Continue empiric Ceftriaxone #3 for now -f/u cx -Monitor CBC/CMP, temperatures -f/u sp cx -aspiration precautions -Nephro, endo, cards f/u -Bcx x2 Thank you for this consultation. Will continue to follow along with you. Discussed with RN Subjective Allergies: Coded Allergies: No Known Allergies (Unverified , 10/10/19) Subjective afebrile wbc persistent Objective Vital Signs Last 24 Hour Vital Signs Date Time Temp Pulse Resp B/P (MAP) Pulse Ox O2 Delivery O2 Flow Rate FiO2 11/13/19 09:20 70 151/86 11/13/19 09:00 Room Air 11/13/19 08:00 97.7 70 20 151/86 (107) 93 11/13/19 08:00 68 11/13/19 04:00 97.8 78 18 139/75 (96) 98 11/13/19 04:00 65 11/13/19 00:00 96.9 63 18 118/82 (94) 95 11/13/19 00:00 63 11/12/19 21:00 Room Air 11/12/19 20:00 98.1 62 20 151/85 (107) 95 11/12/19 20:00 51 11/12/19 17:39 58 11/12/19 16:00 98.6 61 19 139/50 (79) 100 11/12/19 12:00 97.9 57 19 155/80 (105) 90 11/12/19 12:00 48 Height (Feet): 5 Height (Inches): 4.00 Weight (Pounds): 188 Objective HEAD AND NECK: No JVP. No LAD. No thyromegaly. Extraocular movement intact. Pupils are reactive to light and accommodation. LUNGS: Decreased breathing sounds on both sides. CARDIAC: Regular rate and rhythm. S1 and S2. No murmur. No rub. ABDOMEN: Soft, nontender, and nondistended. EXTREMITIES: 2+ edema. No clubbing. No cyanosis. Microbiology Date/Time Source Procedure Growth Status 11/12/19 13:05 Nasopharynx - Final Complete 11/12/19 13:05 Nasopharynx - Final Complete 11/11/19 01:50 Urine,Clean Catch Urine Culture - Final Mixed Gram Positive Organism Complete Laboratory Tests Test 11/13/19 05:48 White Blood Count 15.7 K/UL (4.8-10.8) H Red Blood Count 2.99 M/UL (4.20-5.40) L Hemoglobin 8.3 G/DL (12.0-16.0) L Hematocrit 25.0 % (37.0-47.0) L Mean Corpuscular Volume 84 FL (80-99) Mean Corpuscular Hemoglobin 27.9 PG (27.0-31.0) Mean Corpuscular Hemoglobin Concent 33.4 G/DL (32.0-36.0) Red Cell Distribution Width 14.6 % (11.6-14.8) Platelet Count 198 K/UL (150-450) Mean Platelet Volume 7.8 FL (6.5-10.1) Neutrophils (%) (Auto) 77.8 % (45.0-75.0) H Lymphocytes (%) (Auto) 14.4 % (20.0-45.0) L Monocytes (%) (Auto) 4.7 % (1.0-10.0) Eosinophils (%) (Auto) 2.5 % (0.0-3.0) Basophils (%) (Auto) 0.6 % (0.0-2.0) Sodium Level 143 MMOL/L (136-145) Potassium Level 3.6 MMOL/L (3.5-5.1) Chloride Level 108 MMOL/L (98-107) H Carbon Dioxide Level 19 MMOL/L (21-32) L Anion Gap 17 mmol/L (5-15) H Blood Urea Nitrogen 67 mg/dL (7-18) H Creatinine 3.2 MG/DL (0.55-1.30) H Estimat Glomerular Filtration Rate 14.4 mL/min (>60) Glucose Level 192 MG/DL (74-106) H Calcium Level 8.5 MG/DL (8.5-10.1) Current Medications Medications (Trade) Dose Ordered Sig/Braeden Route PRN Reason Start Time Stop Time Status Last Admin Dose Admin Acetaminophen (Tylenol) 650 mg Q4H PRN ORAL Mild Pain/Temp > 100.5 11/11/19 10:15 12/11/19 10:14 11/12/19 09:37 Amlodipine Besylate (Norvasc) 5 mg DAILY ORAL 11/13/19 09:00 12/13/19 08:59 11/13/19 09:20 Aspirin (Ecotrin) 81 mg DAILY ORAL 11/13/19 09:00 12/13/19 08:59 11/13/19 09:18 Atorvastatin Calcium (Lipitor) 40 mg BEDTIME ORAL 11/13/19 21:00 12/13/19 20:59 Ceftriaxone Sodium 1 gm/ Sodium Chloride 55 ml @ 110 mls/hr QHS IVPB 11/12/19 21:00 11/19/19 20:59 11/12/19 20:38 Dextrose (Dextrose 50%) 25 ml Q30M PRN IV Hypoglycemia 11/11/19 15:00 12/11/19 14:59 Dextrose (Dextrose 50%) 50 ml Q30M PRN IV Hypoglycemia 11/11/19 15:00 12/11/19 14:59 Insulin Aspart (NovoLOG) BEFORE MEALS AND HS SUBQ 11/11/19 16:30 12/11/19 16:29 11/13/19 05:35 Insulin Aspart (NovoLOG) 6 units NOVOTIAC SUBQ 11/11/19 16:50 12/11/19 16:49 11/13/19 05:35 Insulin Detemir (Levemir) 20 units BEDTIME SUBQ 11/11/19 21:00 12/11/19 20:59 11/12/19 20:39 Sodium Chloride 1,000 ml @ 100 mls/hr Q10H IV 11/12/19 08:15 12/11/19 08:14 11/13/19 04:11 Marielena Etienne M.D. Nov 13, 2019 10:08
--- NOTE | 2019-11-13 10:21 | NUR ---
RD ASSESSMENT & RECOMMENDATIONS SEE CARE ACTIVITY FOR COMPLETE ASSESSMENT DAILY ESTIMATED NEEDS: Needs based on DM, 62kg abw 25-30 kcals/kg 9742-3899 total kcals 1-1.5 g protein/kg 62-93 g total protein 25-30 mL/kg 3426-5481 total fluid mLs NUTRITION DIAGNOSIS: 1) Decreased sodium needs r/t renal dysfunction as evidenced by pt w/ VENANCIO, elev BUN (67), elev Creat (3.2), w/ elev phos and K on adm. 2) Altered nutrition related lab values r/t diabetes as evidenced by Uglu on adm 3+, BG 510 now trending down. 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
[2019-11-13 11:26] VITALS: BP 108/76
--- NOTE | 2019-11-13 12:10 | Pulmonology Progress Note ---
Assessment/Plan Assessment/Plan IMPRESSION: 1. Pyuria, possible UTI. 2. Pulmonary edema. 3. Bilateral pleural effusions. 4. Hypertension. 5. Previous [place]. 6. Troponin leak. 7. Acute on chronic CKD. 8. Diabetes mellitus. DISCUSSION: Continue antibiotics. I doubt if the source is pulmonary. Continue current medications and care. I will follow as branch service representative. Mario Alberto Heller M.D. Subjective Interval Events: None new Constitutional: Reports: no symptoms HEENT: Repors: no symptoms Respiratory: Reports: no symptoms Cardiovascular: Reports: no symptoms Gastrointestinal/Abdominal: Reports: no symptoms Allergies: Coded Allergies: No Known Allergies (Unverified , 10/10/19) Objective Last 24 Hour Vital Signs Date Time Temp Pulse Resp B/P (MAP) Pulse Ox O2 Delivery O2 Flow Rate FiO2 11/13/19 11:26 97.7 63 20 108/76 (87) 95 11/13/19 09:20 70 151/86 11/13/19 09:00 Room Air 11/13/19 08:00 97.7 70 20 151/86 (107) 93 11/13/19 08:00 68 11/13/19 04:00 97.8 78 18 139/75 (96) 98 11/13/19 04:00 65 11/13/19 00:00 96.9 63 18 118/82 (94) 95 11/13/19 00:00 63 11/12/19 21:00 Room Air 11/12/19 20:00 98.1 62 20 151/85 (107) 95 11/12/19 20:00 51 11/12/19 17:39 58 11/12/19 16:00 98.6 61 19 139/50 (79) 100 Intake and Output 11/12/19 11/13/19 18:59 06:59 Intake Total 970 ml 1178.67 ml Output Total 800 ml 600 ml Balance 170 ml 578.67 ml Intake Oral 420 ml 120 ml IV Total 550 ml 1058.67 ml Output Urine Total 800 ml 600 ml # Voids 3 4 General Appearance: no acute distress HEENT: normocephalic Respiratory/Chest: chest wall non-tender, lungs clear Cardiovascular: normal peripheral pulses Abdomen: normal bowel sounds Microbiology Date/Time Source Procedure Growth Status 11/12/19 13:05 Nasopharynx - Final Complete 11/12/19 13:05 Nasopharynx - Final Complete 11/11/19 01:50 Urine,Clean Catch Urine Culture - Final Mixed Gram Positive Organism Complete Laboratory Tests 11/13/19 05:48: White Blood Count 15.7H, Red Blood Count 2.99L, Hemoglobin 8.3L, Hematocrit 25.0L, Mean Corpuscular Volume 84, Mean Corpuscular Hemoglobin 27.9, Mean Corpuscular Hemoglobin Concent 33.4, Red Cell Distribution Width 14.6, Platelet Count 198, Mean Platelet Volume 7.8, Neutrophils (%) (Auto) 77.8H, Lymphocytes ( %) (Auto) 14.4L, Monocytes (%) (Auto) 4.7, Eosinophils (%) (Auto) 2.5, Basophils (%) (Auto) 0.6, Sodium Level 143, Potassium Level 3.6, Chloride Level 108H, Carbon Dioxide Level 19L, Anion Gap 17H, Blood Urea Nitrogen 67H, Creatinine 3.2H, Estimat Glomerular Filtration Rate 14.4, Glucose Level 192H, Calcium Level 8.5 Current Medications Medications (Trade) Dose Ordered Sig/Braeden Route PRN Reason Start Time Stop Time Status Last Admin Dose Admin Acetaminophen (Tylenol) 650 mg Q4H PRN ORAL Mild Pain/Temp > 100.5 11/11/19 10:15 12/11/19 10:14 11/12/19 09:37 Amlodipine Besylate (Norvasc) 5 mg DAILY ORAL 11/13/19 09:00 12/13/19 08:59 11/13/19 09:20 Aspirin (Ecotrin) 81 mg DAILY ORAL 11/13/19 09:00 12/13/19 08:59 11/13/19 09:18 Atorvastatin Calcium (Lipitor) 40 mg BEDTIME ORAL 11/13/19 21:00 12/13/19 20:59 Ceftriaxone Sodium 1 gm/ Sodium Chloride 55 ml @ 110 mls/hr QHS IVPB 11/12/19 21:00 11/19/19 20:59 11/12/19 20:38 Dextrose (Dextrose 50%) 25 ml Q30M PRN IV Hypoglycemia 11/11/19 15:00 12/11/19 14:59 Dextrose (Dextrose 50%) 50 ml Q30M PRN IV Hypoglycemia 11/11/19 15:00 12/11/19 14:59 Insulin Aspart (NovoLOG) BEFORE MEALS AND HS SUBQ 11/11/19 16:30 12/11/19 16:29 11/13/19 05:35 Insulin Aspart (NovoLOG) 6 units NOVOTIAC SUBQ 11/11/19 16:50 12/11/19 16:49 11/13/19 05:35 Insulin Detemir (Levemir) 20 units BEDTIME SUBQ 11/11/19 21:00 12/11/19 20:59 11/12/19 20:39 Sodium Chloride 1,000 ml @ 100 mls/hr Q10H IV 11/12/19 08:15 12/11/19 08:14 11/13/19 04:11 Mario Alberto Heller MD Nov 13, 2019 12:10
[2019-11-13] MEDS ORDERED: Fleet's Enema 133ml RECTAL PRN (13:00)
--- NOTE | 2019-11-13 13:23 | General Progress Note ---
Assessment/Plan Problem List: (1) Renal failure (ARF), acute on chronic ICD Codes: N17.9 - Acute kidney failure, unspecified; N18.9 - Chronic kidney disease, unspecified SNOMED: 312402244 (2) Diabetic nephropathy ICD Codes: E11.21 - Type 2 diabetes mellitus with diabetic nephropathy SNOMED: 371991813 (3) Anemia ICD Codes: D64.9 - Anemia, unspecified SNOMED: 053486875 Qualifiers: Qualified Codes: D64.9 - Anemia, unspecified (4) Community acquired pneumonia ICD Codes: J18.9 - Pneumonia, unspecified organism SNOMED: 648808819 Qualifiers: Qualified Codes: J18.9 - Pneumonia, unspecified organism (5) UTI (urinary tract infection) ICD Codes: N39.0 - Urinary tract infection, site not specified SNOMED: 81359138, 46048226 Qualifiers: Qualified Codes: N30.00 - Acute cystitis without hematuria (6) Diabetes mellitus ICD Codes: E11.9 - Type 2 diabetes mellitus without complications SNOMED: 89087189 (7) VENANCIO (acute kidney injury) ICD Codes: N17.9 - Acute kidney failure, unspecified SNOMED: 08674965, 0065479 (8) Hyperglycemia due to type 2 diabetes mellitus ICD Codes: E11.65 - Type 2 diabetes mellitus with hyperglycemia SNOMED: 369031438410173, 41429186 Qualifiers: Qualified Codes: E11.65 - Type 2 diabetes mellitus with hyperglycemia; 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9 63 18 118/82 (94) 95 11/13/19 00:00 63 11/12/19 21:00 Room Air 11/12/19 20:00 98.1 62 20 151/85 (107) 95 11/12/19 20:00 51 11/12/19 17:39 58 11/12/19 16:00 98.6 61 19 139/50 (79) 100 Intake and Output 11/12/19 11/13/19 19:00 07:00 Intake Total 780 ml 1178.67 ml Output Total 800 ml 600 ml Balance -20 ml 578.67 ml Intake Oral 280 ml 120 ml IV Total 500 ml 1058.67 ml Output Urine Total 800 ml 600 ml # Voids 3 4 Laboratory Tests 11/13/19 05:48: White Blood Count 15.7H, Red Blood Count 2.99L, Hemoglobin 8.3L, Hematocrit 25.0L, Mean Corpuscular Volume 84, Mean Corpuscular Hemoglobin 27.9, Mean Corpuscular Hemoglobin Concent 33.4, Red Cell Distribution Width 14.6, Platelet Count 198, Mean Platelet Volume 7.8, Neutrophils (%) (Auto) 77.8H, Lymphocytes ( %) (Auto) 14.4L, Monocytes (%) (Auto) 4.7, Eosinophils (%) (Auto) 2.5, Basophils (%) (Auto) 0.6, Sodium Level 143, Potassium Level 3.6, Chloride Level 108H, Carbon Dioxide Level 19L, Anion Gap 17H, Blood Urea Nitrogen 67H, Creatinine 3.2H, Estimat Glomerular Filtration Rate 14.4, Glucose Level 192H, Calcium Level 8.5 Height (Feet): 5 Height (Inches): 4.00 Weight (Pounds): 188 General Appearance: lethargic EENT: normal ENT inspection Neck: normal alignment Cardiovascular: normal peripheral pulses, normal rate, regular rhythm Respiratory/Chest: chest wall non-tender, lungs clear, normal breath sounds Abdomen: normal bowel sounds, non tender, soft Extremities: normal inspection Edema: no edema noted Arm (L), no edema noted Arm (R), no edema noted Leg (L), no edema noted Leg (R), no edema noted Pedal (L), no edema noted Pedal (R), no edema noted Generalized Neurologic: responsive, sensory deficit Skin: normal pigmentation, warm/dry Dyllan King DO Nov 13, 2019 13:23
[2019-11-13 16:00] VITALS: BP 144/67
--- NOTE | 2019-11-13 16:05 | NUR ---
*-* INSURANCE *-* ALL AVAILABLE CLINICALS HAVE BEEN FAXED TO: ROBERTA LESTER # [phone] FAX#[phone] ELIZA/CLINICALS
--- NOTE | 2019-11-13 17:00 | NUR ---
CASE MANAGEMENT:REVIEW 11/13/19 SI: PULMONARY EDEMA BILATERAL PLEURAL EFF. AC/CHR RENAL FAILURE 98.1 66 20 144/67 93% ON RA WBC+15.7 H/H-8.3/25.0 BUN+67 CR+3.2 IS: IV ROCEPHIN Q24 IVF@100/HR NORVASC PO QD ASA PO QD : TELEMETRY STATUS DCP: FROM HOME
[2019-11-13] MEDS: Docusate 100mg cap ORAL SCH (17:31)
--- NOTE | 2019-11-13 19:25 | NUR ---
NURSE NOTES: Received report from BHAVIN Calles. Patient is awake, lying in semi santana's; resting comfortably. A/Ox4. Primarily Vietnamese speaking. Denies pain at this time. No signs of acute distress noted. Checked IV site and flushed with ongoing IV fluid as precribed. No erythema, bleeding or infiltration noted. Bed at lowest position, brakes on, siderails x3. Call light within reach. Will continue to monitor.
--- NOTE | 2019-11-13 19:56 | NUR ---
HAND-OFF: Report given to Kristine DELCID. Patient stable. Endorsed plan of care.
[2019-11-13 20:00] VITALS: BP 134/76
[2019-11-13] MEDS: cefTRIAXone 1 GM in NS 55 ML IVPB SCH (20:55)
[2019-11-13] MEDS: Levemir Flexpen SUBQ SCH (20:57)
[2019-11-13] MEDS ORDERED: Atorvastatin 20mg tab ORAL SCH (21:00)
--- NOTE | 2019-11-13 23:22 | Cardiology Progress Note ---
Assessment/Plan Assessment/Plan 1. Sinus bradycardia, resolved, HR is now >60, avoid bblockers. 2. NSTEMI, to will make an attempt transfer to [facility] for cardiac cath 3. History of hypertension, continue amlodipine. 4. Acute kidney injury. 5. Diabetes mellitus, ASA 81mg daily in addition to atorvastatin 40 mg daily. She requires to have tight sugar control. 6. Morbid obesity. Subjective Subjective Sinus rhythm at rate of 69. Objective Last 24 Hour Vital Signs Date Time Temp Pulse Resp B/P (MAP) Pulse Ox O2 Delivery O2 Flow Rate FiO2 11/13/19 21:00 Room Air 11/13/19 20:00 97.7 69 19 134/76 (95) 97 11/13/19 20:00 69 11/13/19 16:00 98.1 66 20 144/67 (92) 93 11/13/19 16:00 69 11/13/19 12:00 65 11/13/19 11:26 97.7 63 20 108/76 (87) 95 11/13/19 09:20 70 151/86 11/13/19 09:00 Room Air 11/13/19 08:00 97.7 70 20 151/86 (107) 93 11/13/19 08:00 68 11/13/19 04:00 97.8 78 18 139/75 (96) 98 11/13/19 04:00 65 11/13/19 00:00 96.9 63 18 118/82 (94) 95 11/13/19 00:00 63 Intake and Output 11/12/19 11/13/19 19:00 07:00 Intake Total 780 ml 1178.67 ml Output Total 800 ml 600 ml Balance -20 ml 578.67 ml Intake Oral 280 ml 120 ml IV Total 500 ml 1058.67 ml Output Urine Total 800 ml 600 ml # Voids 3 4 Laboratory Tests Test 11/13/19 05:48 White Blood Count 15.7 K/UL (4.8-10.8) H Red Blood Count 2.99 M/UL (4.20-5.40) L Hemoglobin 8.3 G/DL (12.0-16.0) L Hematocrit 25.0 % (37.0-47.0) L Mean Corpuscular Volume 84 FL (80-99) Mean Corpuscular Hemoglobin 27.9 PG (27.0-31.0) Mean Corpuscular Hemoglobin Concent 33.4 G/DL (32.0-36.0) Red Cell Distribution Width 14.6 % (11.6-14.8) Platelet Count 198 K/UL (150-450) Mean Platelet Volume 7.8 FL (6.5-10.1) Neutrophils (%) (Auto) 77.8 % (45.0-75.0) H Lymphocytes (%) (Auto) 14.4 % (20.0-45.0) L Monocytes (%) (Auto) 4.7 % (1.0-10.0) Eosinophils (%) (Auto) 2.5 % (0.0-3.0) Basophils (%) (Auto) 0.6 % (0.0-2.0) Sodium Level 143 MMOL/L (136-145) Potassium Level 3.6 MMOL/L (3.5-5.1) Chloride Level 108 MMOL/L (98-107) H Carbon Dioxide Level 19 MMOL/L (21-32) L Anion Gap 17 mmol/L (5-15) H Blood Urea Nitrogen 67 mg/dL (7-18) H Creatinine 3.2 MG/DL (0.55-1.30) H Estimat Glomerular Filtration Rate 14.4 mL/min (>60) Glucose Level 192 MG/DL (74-106) H Calcium Level 8.5 MG/DL (8.5-10.1) Microbiology Date/Time Source Procedure Growth Status 11/12/19 13:05 Nasopharynx - Final Complete 11/12/19 13:05 Nasopharynx - Final Complete 11/11/19 01:50 Urine,Clean Catch Urine Culture - Final Mixed Gram Positive Organism Complete Objective HEENT: Atraumatic and normocephalic. Anicteric. Pupils are equal, round, reactive to light and accommodation. Extraocular muscles intact NECK: JVP less than 5 cm. No carotid bruit. Carotid upstroke is 2+ bilaterally. There is severely dry mucosal membranes. CVS: Normal S1 and S2. Regular rate and rhythm. A 2/6 mid systolic murmur at left sternal border. PMI is at fourth intercostal space in the midclavicular line. LUNGS: Clear to auscultation bilaterally. ABDOMEN: Soft, nontender, nondistended. Obese. No hepatosplenomegaly. Positive bowel sounds. EXTREMITIES: No evidence of edema, clubbing, or cyanosis. Sina Alfonso MD Nov 13, 2019 23:22
[2019-11-14] VITALS: BP 117/75
--- NOTE | 2019-11-14 00:30 | NUR ---
NURSE NOTES: Resting throughout the night. No significant change of condition noted. Will continue to monitor.
[2019-11-14 04:00] VITALS: BP 154/55
[2019-11-14] MEDS ORDERED: Zolpidem 5mg tab ORAL PRN (05:15)
[2019-11-14] MEDS: NovoLOG Insulin Flexpen SUBQ SCH ×4 (06:12→12:28)
--- NOTE | 2019-11-14 07:20 | NUR ---
HAND-OFF: Report given to BHAVIN Calles. Plan of care endorsed.
[2019-11-14 07:41] LABS: ANION GAP 17 mmol/L (5-15); BLOOD UREA NITROGEN 45 mg/dL (7-18); CALCIUM 8.1 MG/DL (8.5-10.1); CARBON DIOXIDE 17 MMOL/L (21-32); CHLORIDE 110 MMOL/L (98-107); CREATININE 2.1 MG/DL (0.55-1.30); POTASSIUM 3.6 MMOL/L (3.5-5.1); SODIUM 144 MMOL/L (136-145)
--- NOTE | 2019-11-14 07:53 | Nephrology Progress Note ---
Assessment/Plan Status: stable, progressing Assessment/Plan: A/P 1) VENANCIO on CKD 3B- BL Cr 1.9 - ATN multifactorial. Resolving, cr down to 2.1. IVFs stopped - OK for DC from renal point 2) Mild Hyperkalemia- resolved 3) Hyperglycemia- per endocrinology Subjective Date patient seen: Nov 14, 2019 Time patient seen: 07:52 ROS Limited/Unobtainable: No Allergies: Coded Allergies: No Known Allergies (Unverified , 10/10/19) Subjective Patient in no distress Objective Last 24 Hour Vital Signs Date Time Temp Pulse Resp B/P (MAP) Pulse Ox O2 Delivery O2 Flow Rate FiO2 11/14/19 04:00 73 11/14/19 04:00 97.5 70 19 154/55 (88) 95 11/14/19 00:00 75 11/14/19 00:00 98.2 70 19 117/75 (89) 96 11/13/19 21:00 Room Air 11/13/19 20:00 97.7 69 19 134/76 (95) 97 11/13/19 20:00 69 11/13/19 16:00 98.1 66 20 144/67 (92) 93 11/13/19 16:00 69 11/13/19 12:00 65 11/13/19 11:26 97.7 63 20 108/76 (87) 95 11/13/19 09:20 70 151/86 11/13/19 09:00 Room Air 11/13/19 08:00 97.7 70 20 151/86 (107) 93 11/13/19 08:00 68 Intake and Output 11/13/19 11/14/19 19:00 07:00 Intake Total 1960 ml 50 ml Balance 1960 ml 50 ml Intake Oral 960 ml IV Total 1000 ml Other 50 ml # Voids 4 # Bowel Movements 6 Laboratory Tests 11/14/19 06:09: White Blood Count [Pending], Red Blood Count [Pending], Hemoglobin [Pending], Hematocrit [Pending], Mean Corpuscular Volume [Pending], Mean Corpuscular Hemoglobin [Pending], Mean Corpuscular Hemoglobin Concent [Pending], Red Cell Distribution Width [Pending], Platelet Count [Pending], Mean Platelet Volume [ Pending], Neutrophils (%) (Auto) [Pending], Lymphocytes (%) (Auto) [Pending], Monocytes (%) (Auto) [Pending], Eosinophils (%) (Auto) [Pending], Basophils (%) (Auto) [Pending], Sodium Level 144, Potassium Level 3.6, Chloride Level 110H, Carbon Dioxide Level 17L, Anion Gap 17H, Blood Urea Nitrogen 45H, Creatinine 2.1H, Estimat Glomerular Filtration Rate 23.4, Glucose Level 148H, Calcium Level 8.1L Height (Feet): 5 Height (Inches): 4.00 Weight (Pounds): 193 General Appearance: no apparent distress EENT: normal ENT inspection Neck: normal alignment, supple Cardiovascular: normal rate, regular rhythm Respiratory/Chest: lungs clear Abdomen: non tender, soft Edema: no edema noted Arm (L), no edema noted Arm (R), no edema noted Leg (L), no edema noted Leg (R), no edema noted Pedal (L), no edema noted Pedal (R), no edema noted Generalized Black Alcantara MD Nov 14, 2019 07:53
[2019-11-14 08:00] VITALS: BP 130/74
--- NOTE | 2019-11-14 08:14 | NUR ---
NURSE NOTES: Patient received from Kristine DELCID. Patient stable AOx4 with no complaints and no s/sx of distress. RR even and unlabored on RA. Lung sounds clear, bowel sounds present. Abdomen soft and non-tender. BL hand strength and BL leg strength 4/5. IV fluids completed. Eating her breakfast now. Advanced to [facility] with no modifications. Patient voided at this time as well. Side rails up x2, Call light within reach, bed low and locked. Will continue to monitor.
[2019-11-14] MEDS: Docusate 100mg cap ORAL SCH (08:25)
[2019-11-14] MEDS: Aspirin EC 81mg tab ORAL SCH (08:25)
--- NOTE | 2019-11-14 08:49 | NUR ---
DISCHARGE/TRANSFER SALES REPRESENTATIVE [facility] [employer] NOTED IN DR LOPEZ'S NOTES , NEED TO TRANSFER FOR CARDIAC CATH. NO TRANSFER ORDER NOTED BY DR LOPEZ OR DR BIRD THIS SALES REPRESENTATIVE [facility] CALLED [facility] AND LEFT [facility] FOR [facility]IKA REGARDING POSSIBILITY FOR TRANSFER FOR HIGHER LEVEL OF CARE Addendum: 11/14/19 at 1029 by JOSELUIS RAMOS LVN LVN CALLED DR LOPEZ'S OFFICE FOR TRANSFER ORDER. PER HIS CREATIVE PERFUMER HE IS NOT IN THIS OFFICE TODAY. REQUESTED PHONE NUMBER TO HIS OTHER OFFICE BUT CREATIVE PERFUMER WOULD NOT PROVIDE. INSTEAD SHE SAID SHE WILL GIVE HIM A MESSAGE TO CALL THIS SALES REPRESENTATIVE [facility] BACK
--- NOTE | 2019-11-14 09:25 | General Progress Note ---
Assessment/Plan Problem List: (1) Renal failure (ARF), acute on chronic ICD Codes: N17.9 - Acute kidney failure, unspecified; N18.9 - Chronic kidney disease, unspecified SNOMED: 913672571 (2) Diabetic nephropathy ICD Codes: E11.21 - Type 2 diabetes mellitus with diabetic nephropathy SNOMED: 685802203 (3) Anemia ICD Codes: D64.9 - Anemia, unspecified SNOMED: 308785063 Qualifiers: Qualified Codes: D64.9 - Anemia, unspecified (4) Community acquired pneumonia ICD Codes: J18.9 - Pneumonia, unspecified organism SNOMED: 744928545 Qualifiers: Qualified Codes: J18.9 - Pneumonia, unspecified organism (5) UTI (urinary tract infection) ICD Codes: N39.0 - Urinary tract infection, site not specified SNOMED: 06999445, 88813179 Qualifiers: Qualified Codes: N30.00 - Acute cystitis without hematuria (6) Diabetes mellitus ICD Codes: E11.9 - Type 2 diabetes mellitus without complications SNOMED: 95368549 (7) VENANCIO (acute kidney injury) ICD Codes: N17.9 - Acute kidney failure, unspecified SNOMED: 30142500, 0380873 (8) Hyperglycemia due to type 2 diabetes mellitus ICD Codes: E11.65 - Type 2 diabetes mellitus with hyperglycemia SNOMED: 454559743373817, 40665059 Qualifiers: Qualified Codes: E11.65 - Type 2 diabetes mellitus with hyperglycemia; 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 Status: stable, progressing Assessment/Plan: pt diet abx cbc bmp am Subjective Constitutional: Reports: weakness Allergies: Coded Allergies: No Known Allergies (Unverified , 10/10/19) All Systems: reviewed and negative except above Subjective sleepy calm in bed Objective Last 24 Hour Vital Signs Date Time Temp Pulse Resp B/P (MAP) Pulse Ox O2 Delivery O2 Flow Rate FiO2 11/14/19 08:34 75 130/74 11/14/19 08:00 98.1 75 18 130/74 (92) 93 11/14/19 04:00 73 11/14/19 04:00 97.5 70 19 154/55 (88) 95 11/14/19 00:00 75 11/14/19 00:00 98.2 70 19 117/75 (89) 96 11/13/19 21:00 Room Air 11/13/19 20:00 97.7 69 19 134/76 (95) 97 11/13/19 20:00 69 11/13/19 16:00 98.1 66 20 144/67 (92) 93 11/13/19 16:00 69 11/13/19 12:00 65 11/13/19 11:26 97.7 63 20 108/76 (87) 95 Intake and Output 11/13/19 11/14/19 19:00 07:00 Intake Total 1960 ml 50 ml Balance 1960 ml 50 ml Intake Oral 960 ml IV Total 1000 ml Other 50 ml # Voids 4 # Bowel Movements 6 Laboratory Tests 11/14/19 06:09: White Blood Count [Pending], Red Blood Count [Pending], Hemoglobin [Pending], Hematocrit [Pending], Mean Corpuscular Volume [Pending], Mean Corpuscular Hemoglobin [Pending], Mean Corpuscular Hemoglobin Concent [Pending], Red Cell Distribution Width [Pending], Platelet Count [Pending], Mean Platelet Volume [ Pending], Neutrophils (%) (Auto) [Pending], Lymphocytes (%) (Auto) [Pending], Monocytes (%) (Auto) [Pending], Eosinophils (%) (Auto) [Pending], Basophils (%) (Auto) [Pending], Sodium Level 144, Potassium Level 3.6, Chloride Level 110H, Carbon Dioxide Level 17L, Anion Gap 17H, Blood Urea Nitrogen 45H, Creatinine 2.1H, Estimat Glomerular Filtration Rate 23.4, Glucose Level 148H, Calcium Level 8.1L Height (Feet): 5 Height (Inches): 4.00 Weight (Pounds): 193 General Appearance: lethargic EENT: normal ENT inspection Neck: normal alignment Cardiovascular: normal peripheral pulses, normal rate, regular rhythm Respiratory/Chest: chest wall non-tender, lungs clear, normal breath sounds Abdomen: normal bowel sounds, non tender, soft Extremities: normal inspection Edema: no edema noted Arm (L), no edema noted Arm (R), no edema noted Leg (L), no edema noted Leg (R), no edema noted Pedal (L), no edema noted Pedal (R), no edema noted Generalized Neurologic: motor weakness Skin: normal pigmentation, warm/dry Dyllan King DO Nov 14, 2019 09:25
--- NOTE | 2019-11-14 10:44 | Infectious Diseases Prog Note ---
Assessment/Plan Assessment/Plan Abx: Ceftriaxone 11/11- Assessment: Probable sepsis vs SIRS Probable PNA -11/11 CXR: Enlarged cardiac silhouette with central vascular congestion.Bilateral pleural effusions and bibasilar atelectasis/infiltrates. -influenza sc neg PYuria/bacteriuria -u/a wbc 20-30, nit neg, leuk +3; ucx 20-30k Mixed urogenital contaminants Mild hypothermia, SP Leukocytosis; persistent Bradycardia; SP Abdominal pain -CT abd/p: Small right and trace left-sided pleural effusion.Ground glass opacities within the left lower lobe which may be inflammatory or infectious process.Cirrhotic liver. Mild ascites. Noninflamed colonic diverticulosis. Non -obstructing calculus within the right kidney. Acute encephalopathy -CT head: no acute findings Hyperglycemia; improving VENANCIO on CKD (bl cr 1.9); improving -Renal US: Negative ultrasound the kidneys. Multiple right renal cysts. Dm2 HTN HLD NSTEMI obesity s/p knee surgery hx of pleural effusion s/p thoracentesis Plan: -Continue empiric Ceftriaxone #4 for now -f/u cx -Monitor CBC/CMP, temperatures -f/u sp cx -aspiration precautions -Nephro, endo, cards f/u -f/u Bcx x2 Thank you for this consultation. Will continue to follow along with you. Discussed with RN Subjective Allergies: Coded Allergies: No Known Allergies (Unverified , 10/10/19) Subjective afebrile wbc persistent;cbc pending today Objective Vital Signs Last 24 Hour Vital Signs Date Time Temp Pulse Resp B/P (MAP) Pulse Ox O2 Delivery O2 Flow Rate FiO2 11/14/19 09:00 Room Air 11/14/19 08:34 75 130/74 11/14/19 08:00 84 11/14/19 08:00 98.1 75 18 130/74 (92) 93 11/14/19 04:00 73 11/14/19 04:00 97.5 70 19 154/55 (88) 95 11/14/19 00:00 75 11/14/19 00:00 98.2 70 19 117/75 (89) 96 11/13/19 21:00 Room Air 11/13/19 20:00 97.7 69 19 134/76 (95) 97 11/13/19 20:00 69 11/13/19 16:00 98.1 66 20 144/67 (92) 93 11/13/19 16:00 69 11/13/19 12:00 65 11/13/19 11:26 97.7 63 20 108/76 (87) 95 Height (Feet): 5 Height (Inches): 4.00 Weight (Pounds): 193 Objective HEAD AND NECK: No JVP. No LAD. No thyromegaly. Extraocular movement intact. Pupils are reactive to light and accommodation. LUNGS: Decreased breathing sounds on both sides. CARDIAC: Regular rate and rhythm. S1 and S2. No murmur. No rub. ABDOMEN: Soft, nontender, and nondistended. EXTREMITIES: 2+ edema. No clubbing. No cyanosis. Microbiology Date/Time Source Procedure Growth Status 11/12/19 13:05 Nasopharynx - Final Complete 11/12/19 13:05 Nasopharynx - Final Complete Laboratory Tests Test 11/14/19 06:09 White Blood Count Pending Red Blood Count Pending Hemoglobin Pending Hematocrit Pending Mean Corpuscular Volume Pending Mean Corpuscular Hemoglobin Pending Mean Corpuscular Hemoglobin Concent Pending Red Cell Distribution Width Pending Platelet Count Pending Mean Platelet Volume Pending Neutrophils (%) (Auto) Pending Lymphocytes (%) (Auto) Pending Monocytes (%) (Auto) Pending Eosinophils (%) (Auto) Pending Basophils (%) (Auto) Pending Sodium Level 144 MMOL/L (136-145) Potassium Level 3.6 MMOL/L (3.5-5.1) Chloride Level 110 MMOL/L (98-107) H Carbon Dioxide Level 17 MMOL/L (21-32) L Anion Gap 17 mmol/L (5-15) H Blood Urea Nitrogen 45 mg/dL (7-18) H Creatinine 2.1 MG/DL (0.55-1.30) H Estimat Glomerular Filtration Rate 23.4 mL/min (>60) Glucose Level 148 MG/DL (74-106) H Calcium Level 8.1 MG/DL (8.5-10.1) L Current Medications Medications (Trade) Dose Ordered Sig/Braeden Route PRN Reason Start Time Stop Time Status Last Admin Dose Admin Acetaminophen (Tylenol) 650 mg Q4H PRN ORAL Mild Pain/Temp > 100.5 11/11/19 10:15 12/11/19 10:14 11/12/19 09:37 Amlodipine Besylate (Norvasc) 5 mg DAILY ORAL 11/13/19 09:00 12/13/19 08:59 11/14/19 08:34 Aspirin (Ecotrin) 81 mg DAILY ORAL 11/13/19 09:00 12/13/19 08:59 11/14/19 08:25 Atorvastatin Calcium (Lipitor) 40 mg BEDTIME ORAL 11/13/19 21:00 12/13/19 20:59 11/13/19 20:56 Bisacodyl (Dulcolax) 10 mg Q12HR RECTAL 11/13/19 21:00 12/13/19 20:59 11/13/19 20:56 Ceftriaxone Sodium 1 gm/ Sodium Chloride 55 ml @ 110 mls/hr QHS IVPB 11/12/19 21:00 11/19/19 20:59 11/13/19 20:55 Dextrose (Dextrose 50%) 25 ml Q30M PRN IV Hypoglycemia 11/11/19 15:00 12/11/19 14:59 Dextrose (Dextrose 50%) 50 ml Q30M PRN IV Hypoglycemia 11/11/19 15:00 12/11/19 14:59 Docusate Sodium (Colace) 100 mg TWICE A DAY ORAL 11/13/19 18:00 12/13/19 17:59 11/14/19 08:25 Insulin Aspart (NovoLOG) BEFORE MEALS AND HS SUBQ 11/11/19 16:30 12/11/19 16:29 11/13/19 20:57 Insulin Aspart (NovoLOG) 6 units NOVOTIAC SUBQ 11/11/19 16:50 12/11/19 16:49 11/14/19 06:14 Insulin Detemir (Levemir) 20 units BEDTIME SUBQ 11/11/19 21:00 12/11/19 20:59 11/13/19 20:57 Sodium Phosphate (Fleet's Sodium Phosl Enema) 133 ml BIDPRN PRN RECTAL constipation 11/13/19 13:00 12/13/19 12:59 11/13/19 15:35 Zolpidem Tartrate (Ambien) 5 mg HSPRN PRN ORAL Insomnia 11/14/19 05:15 1/29/20 05:14 Marielena Etienne M.D. Nov 14, 2019 10:44
--- NOTE | 2019-11-14 11:42 | NUR ---
DISCHARGE/TRANSFER RECEIVED TRANSFER ORDER FROM DR BIRD AND ENTERED FAXED CLINICALS TO [facility] CC EPITAXIAL REACTOR OPERATOR T: [phone] F: [phone] SPOKE WITH IPA POWER DIGGER OPERATOR, CHIKA AND RECEIVED AUTHORIZATION FOR BOTH [facility] TRANSFER AND TRANSPORTATION...AUTH #[id number] WAITING FOR RESPONSE FROM [facility] CC
[2019-11-14 12:00] VITALS: BP 148/83
--- NOTE | 2019-11-14 13:00 | NUR ---
NURSE NOTES: Spoke with Dean from [facility] regarding transferring pt to [facility]. Call forwarded to Ludy case checker.
--- NOTE | 2019-11-14 14:24 | NUR ---
CASE MANAGEMENT:REVIEW 11/14/19 SI: NSTEMI. PULMONARY EDEMA BILATERAL PLEURAL EFF. AC/CHR RENAL FAILURE 97.7 81 18 148/83 93% ON RA BUN+45 CR+2.1 PLT-148 IS: IV ROCEPHIN Q24 IVF@100/HR NORVASC PO QD ASA PO QD : TELEMETRY STATUS DCP: FROM HOME
--- NOTE | 2019-11-14 14:29 | NUR ---
TRANSFER UPDATE RECEIVED AUTH NUMBER AND HARD COPY AUTHORIZATION TO TRANSFER TO [facility] FOR HEART CATH RECEIVED CALL FROM GREGORY WITH [facility] ~ WAITING FOR MD TO MD CONVERSATION AND ASSIGNED ROOM NUMBER [facility] LINSEED OIL TEMPERER T: [phone] CHIKA ADULT DAY CARE WORKER WITH [employer] T: [phone] GREGORY WITH [facility] T; [phone] SPOKE WITH [facility] MASTER SCHEDULER, CHIKA AND RECEIVED AUTHORIZATION FOR BOTH [facility] TRANSFER AND TRANSPORTATION...AUTH #[id number] WAITING FOR RESPONSE FROM [facility]
--- NOTE | 2019-11-14 14:33 | NUR ---
NURSE NOTES: Spoke with Dean regarding latest troponin level and transfer for today. Awaiting bed.
--- NOTE | 2019-11-14 14:52 | NUR ---
DISCHARGE ANDREWS OLMOS TRANSFERRING TO [facility] CC (FOR CARDIAC CATH) ROOM 214-1 T: [phone] FOR NURSE TO NURSE REPORT [facility] HAS BEEN ARRANGED FOR [facility] TRANSPORT AT 1600 AMBULANCE AUTH [id number]
--- NOTE | 2019-11-14 15:16 | NUR ---
*-* INSURANCE *-* ALL AVAILABLE CLINICALS HAVE BEEN FAXED TO: ROBERTA LESTER # [phone] FAX#[phone] ELIZA/CLINICALS
[2019-11-14 16:00] VITALS: BP 152/75
--- NOTE | 2019-11-14 16:20 | NUR ---
NURSE NOTES: Patient stable picked up by ambulance. Report given to Stacey at [facility]. All belongings with patient.
[2019-11-14] MEDS ORDERED: Tubing IV Secondary IV ONE (16:22)
--- NOTE | 2019-11-14 17:08 | NUR ---
NURSE NOTES: Spoke with Dean regarding latest troponin level and transfer for today. Awaiting bed. Addendum: 11/14/19 at 1709 by ALFIE SANDY RN INCORRECT DOCUMENTATION.
[2019-11-15 08:25] LABS: HEMATOCRIT 28.1 % (37.0-47.0); HEMOGLOBIN 8.4 G/DL (12.0-16.0); WHITE BLOOD COUNT 12.6 K/UL (4.8-10.8)
[2019-11-15 08:26] LABS: LYMPHOCYTES % (AUTO) 17.6 % (20.0-45.0); MEAN CORPUSCULAR VOLUME 91 FL (80-99); MONOCYTES % (AUTO) 7.2 % (1.0-10.0); NEUTROPHILS % (AUTO) 71.1 % (45.0-75.0); PLATELET COUNT 247 K/UL (150-450); RED CELL DISTRIBUTION WIDTH 16.5 % (11.6-14.8)
[2019-11-15 08:27] LABS: EOSINOPHILS % (AUTO) 2.9 % (0.0-3.0)
--- NOTE | 2019-11-15 09:04 | Discharge Summary ---
Discharge Summary Discharge Summary _ DATE OF ADMISSION: 11/11/2019 DATE OF DISCHARGE: 11/14/2019 DISCHARGED BY: Dr. King REASON FOR ADMISSION: 69 years old female with past medical history of diabetes mellitus, hypertension , presented with complaint of high blood sugar. She denied nausea and vomiting. She also reported ongoing abdominal pain. No urinary complaints, but she had complained of the right flank pain. Upon evaluation vital signs revealed bradycardia with heart rate 48 , otherwise vital signs were stable. EKG revealed sinus bradycardia , no acute ischemic changes , no block . BUN 56, creatinine 3.3. Glucose 510. Anion gap 16, potassium 4.6. Sodium 131. Troponin 0.463. Albumin 2.9 . AST 96 , ALT 119. WBC 15, hemoglobin 8.7 , hematocrit 25.9. Urinalysis revealed evidence of urinary tract infection , +4 protein, +3 glucose. Chest x-ray revealed enlarged cardiac silhouette with central vascular congestion, bilateral pleural effusion and bibasilar atelectasis/infiltrate. CT of the abdomen and pelvis revealed ground glass opacity within the left lower lobe , may be inflammatory or infectious. Cirrhotic liver. Mild ascites. Noninflamed colonic diverticulosis. Nonobstructive calculus within the right kidney. Small right and trace left-sided pleural effusion. While in emergency room patient became disoriented without any focal deficit for about 30 minutes. hear rate was in 40s . ECG showed no evidence of ST elevation . Patient subsequently undergone CT of the head , which revealed no acute intracranial pathology. Patient admitted to telemetry floor for further management. CONSULTANTS: beveler Dr. Alfonso pulmonary Dr. Heller ID specialist Dr. Etienne expanding machine operator Dr. Alexander rehabilitation program coordinator Dr.De Escobar [facility] COURSE: Patient admitted to telemetry floor. Jig And Fixture Repairer followed. Second troponin elevated -0.428. EKG reveals sinus bradycardia no acute ischemic changes. Beta-blockers were avoided. Sinus bradycardia resolved. Per beveler , patient had NSTEMI. Patient was placed on a waiting list for transfer to higher level of care for cardiac catheterization. Blood pressure was managed with calcium channel humza and remained stable. Antiplatelet therapy with aspirin and statin continued. Renal ultrasound was negative. Renal parameters and electrolytes were closely monitored. Electrolytes corrected as needed , and nephrotoxins were avoided. Prior to transfer , BUN from 66 down to 45 and creatinine from 3.3 down to 2.1. Hyponatremia work-up and urine studies were done. Sodium 144 upon transfer. Per rehabilitation program coordinator, acute tubular necrosis was multifactorial , and was resolving . Creatinine trended down to 2.1 . IV fluids stopped. Aspiration precaution maintained. Supplemental oxygen provided and titrated to keep oximetry above 92%. Pulmonary toilet with bronchodilator provided as needed. Volumes were closely monitored. Venous duplex bilateral lower extremity revealed no evidence of acute DVT. Patient had pyuria and bacteriuria. Urine culture revealed 20-30 K of mixed urogenital contaminants. Patient probably had sepsis versus SIRS. Leukocytosis was persistent , but trending down. Blood sugar was managed as per expanding machine operator recommendations with long- acting Levemir, short acting pre-meal insulin and sliding scale of insulin as needed. Diabetic diet provided. Patient was counseled on compliance with medication and diet. Diabetic teaching provided. Transfer was arranged . Patient was transferred via [facility] ambulance to [facility] for cardiac catheterization FINAL DIAGNOSES: NSTEMI Probably sepsis versus SIRS Probable pneumonia Pyuria, possible UTI Leukocytosis -persistent Acute encephalopathy Hypertension Acute kidney injury on chronic kidney disease 3B Sinus bradycardia -resolved Hyperglycemia due to type II diabetes mellitus Liver cirrhosis Morbid obesity DISCHARGE MEDICATIONS: See Medication Reconciliation list. DISCHARGE INSTRUCTIONS: Patient was discharged to [facility] for cardiac catheterization. . I have been assigned to dictate discharge summary for this account. I was not involved in the patient's management. Jenna García NP Nov 15, 2019 09:04
--- NOTE | 2019-11-16 15:52 | NUR ---
*-* INSURANCE *-* ALL AVAILABLE CLINICALS HAVE BEEN FAXED TO: ROBERTA LESTER # [phone] FAX#[phone] ELIZA/CLINICALS
--- NOTE | 2019-11-19 12:05 | Coder Physician Query ---
Clarification is required for compliance, coding accuracy, and to reflect severity of illness for this patient. Dear Dr. BIRD Date: 11/19/2019 FINAL DIAGNOSES: NSTEMI Probably sepsis versus SIRS PrUrine culture revealed 20-30 K of mixed urogenital contaminants. Patient probably had sepsis versus SIRS. Leukocytosis was persistent , but trending down. A posssible diagnois of_Sepsis__was made in the medical record in Discharge summary. Upon review, it is difficult to determine whether this diagnosis has been ruled in, ruled out,or is still being worked up. Please indicate below the status of the Sepsis diagnosis. [] Treated and resolve [] Presumed and treated [] Currently under treatment [] Still being worked-up [] Ruled out Present on Admission: [] Yes [] No [] Clinically Undetermined Dyllan Bird D.O. Date Please also document in your Progress Notes and/or Discharge Summary and indicate if the condition was present on admission. [place]
== END 2019-11-14 16:23 | disposition short-term general hospital (02) | DRG 871 ==
LOC: EDBD 23:39 → EMR 23:57 → 2W 11-11 03:15 → EDBEDREQSVC 11-11 05:05 → EDBEDREQTM 11-11 05:05 → EDBEDREQ 11-11 05:05 → 2W 11-11 08:00 → 2E 11-11 15:57
DX: A41.9 Sepsis, unspecified organism (principal); I21.4 Non-ST elevation (NSTEMI) myocardial infarction; N17.0 Acute kidney failure with tubular necrosis; J18.9 Pneumonia, unspecified organism; N39.0 Urinary tract infection, site not specified; G93.40 Encephalopathy, unspecified; E11.65 Type 2 diabetes mellitus with hyperglycemia; E83.51 Hypocalcemia; I12.9 Hypertensive chronic kidney disease with stage 1 through stage 4 chronic kidney disease, or unspecified chronic kidney disease; N18.9 Chronic kidney disease, unspecified; R00.1 Bradycardia, unspecified; K74.60 Unspecified cirrhosis of liver; E87.5 Hyperkalemia; I44.7 Left bundle-branch block, unspecified; K21.9 Gastro-esophageal reflux disease without esophagitis; E78.5 Hyperlipidemia, unspecified; Z79.4 Long term (current) use of insulin; K57.90 Diverticulosis of intestine, part unspecified, without perforation or abscess without bleeding; E66.01 Morbid (severe) obesity due to excess calories; Z91.81 History of falling; E11.40 Type 2 diabetes mellitus with diabetic neuropathy, unspecified; E11.319 Type 2 diabetes mellitus with unspecified diabetic retinopathy without macular edema; I34.0 Nonrheumatic mitral (valve) insufficiency; I35.1 Nonrheumatic aortic (valve) insufficiency; I27.20 Pulmonary hypertension, unspecified
CPT/HCPCS: 36415; 70450; 71045; 74176; 76770; 80048; 80053; 80069; 81003; 82043; 82044; 82570; 82962; 83690; 84300; 84484; 85025; 86710; 87040; 87086; 89050; 93005; 93970; 96361; 96374; 97803; 99285; J1815; J2405; J7030; S5561

== ENCOUNTER 2020-01-11 11:27 | Inpatient (IN) | payer MEDICARE, OTHER ==
[~2020-01-11] VITALS: Ht 154.9 cm; Wt 88.5 kg
--- NOTE | 2020-01-11 11:22 | NUR ---
ED Nurse Note: PT brought in by RA 26 from home for hypoglycemia. blood sugar was 26 at home. D10 250cc given en route. Blood sugar upon arrival is 73. pt is currently alert, verbally responsive. Strong juice given. tolerated well.
[2020-01-11 11:27] VITALS: BP 151/58
[~2020-01-11 11:27] MED LIST changes: +ALLOPURINOL300 M1 ORAL; +AMLODIPINE BESYL5 MG ORAL; +BENAZEPRIL HCL40 MG ORAL; +BETAMETHASONE D15 GM TP; +DITROPAN XL10 MG ORAL; +FUROSEMIDE20 M1 ORAL; +FUROSEMIDE40 MG ORAL; +GABAPENTIN300 MG ORAL; +HYDRALAZINE HCL10 MG ORAL; +HYDROCHLOROTH12.5 MG ORAL; +ISOSORBIDE DINI30 MG ORAL; +LINZESS145 MCG PO; +LIPITOR80 MG ORAL; +MAPAP500 M2 PO; +METOPROLOL SUC100 MG ORAL; +NITRO0.4 SL; +NOVOLOG100 UNIT/5; +PANTOPRAZOLE SO40 MG ORAL; +VENTOLIN HFA18 GM INH; +ZITHROMAX250 MG ORAL
--- NOTE | 2020-01-11 11:40 | NUR ---
ED Nurse Note: Blood sample collected and sent to lab
--- NOTE | 2020-01-11 11:48 | NUR ---
ED Nurse Note: Report given to carrol carlson RN. endorsed plan of care.
[2020-01-11 11:53] LABS: HEMATOCRIT 24.9 % (37.0-47.0); HEMOGLOBIN 7.7 G/DL (12.0-16.0); MEAN CORPUSCULAR VOLUME 89 FL (80-99); PLATELET COUNT 221 K/UL (150-450); RED BLOOD COUNT 2.81 M/UL (4.20-5.40); RED CELL DISTRIBUTION WIDTH 18.2 % (11.6-14.8); WHITE BLOOD COUNT 6.6 K/UL (4.8-10.8)
--- NOTE | 2020-01-11 11:57 | NUR ---
ED Nurse Note: urine sent to lab
[2020-01-11 12:22] LABS: ANION GAP 10 mmol/L (5-15); BLOOD UREA NITROGEN 85 mg/dL (7-18); CALCIUM 8.9 MG/DL (8.5-10.1); CARBON DIOXIDE 20 MMOL/L (21-32); CHLORIDE 105 MMOL/L (98-107); CREATININE 2.7 MG/DL (0.55-1.30); POTASSIUM 5.7 MMOL/L (3.5-5.1); SODIUM 135 MMOL/L (136-145)
[2020-01-11 12:26] LABS: ALANINE AMINOTRANSFERASE 58 U/L (12-78); ALBUMIN 3.1 G/DL (3.4-5.0); ALBUMIN/GLOBULIN RATIO 0.7 (1.0-2.7); ALKALINE PHOSPHATASE 381 U/L (46-116); ASPARTATE AMINO TRANSFERASE 43 U/L (15-37); BILIRUBIN,TOTAL 0.4 MG/DL (0.2-1.0)
--- NOTE | 2020-01-11 12:50 | Emergency Room Report ---
History of Present Illness General Chief Complaint: Abnormal Labs Source: Patient, Medical Record Present Illness HPI 69-year-old female presents the ED for hypoglycemia. Brought in from home by EMS. Accu-Chek in the 20s. Given D10. Blood sugar did improve. Patient is more awake alert oriented. History of diabetes. Denies any pain. Denies any fevers or chills. Denies cough. No other aggravating relieving factors. Denies any other associated symptoms COVID-19 risk:Contact w/high r: No COVID-19 risk:Travel to affect: No Has patient experienced fountain: No Allergies: Coded Allergies: No Known Allergies (Unverified , 10/10/19) Patient History Past Medical History: DM, HTN, CHF Pertinent Family History: none Social History: Denies: smoking, alcohol use, drug use Now: No Immunizations: UTD Reviewed Nursing Documentation: PMH: Agreed; PSxH: Agreed Nursing Documentation-PMH Hx Cardiac Problems: Yes - ESHF Hx Hypertension: Yes Hx Diabetes: Yes Review of Systems All Other Systems: negative except mentioned in HPI Physical Exam Vital Signs Date Time Temp Pulse Resp B/P (MAP) Pulse Ox O2 Delivery O2 Flow Rate FiO2 01/11/20 11:13 98.2 79 20 131/63 (85) 94 Room Air Sp02 EP Interpretation: reviewed, normal General Appearance: no apparent distress, alert, GCS 15, non-toxic Head: normocephalic, atraumatic Eyes: bilateral eye normal inspection, bilateral eye PERRL ENT: hearing grossly normal, normal pharynx, no angioedema, normal voice Neck: full range of motion, supple/symm/no masses Respiratory: chest non-tender, lungs clear, normal breath sounds, speaking full sentences Cardiovascular #1: regular rate, rhythm, no edema Cardiovascular #2: 2+ carotid (R), 2+ carotid (L), 2+ radial (R), 2+ radial (L) , 2+ dorsalis pedis (R), 2+ dorsalis pedis (L) Gastrointestinal: normal bowel sounds, non tender, soft, non-distended, no guarding, no rebound Rectal: deferred Genitourinary: normal inspection, no CVA tenderness Musculoskeletal: back normal, normal range of motion, gait/station normal, non- tender Neurologic: alert, motor strength/tone normal, oriented x3, sensory intact, responsive, speech normal Psychiatric: judgement/insight normal, memory normal, mood/affect normal, no suicidal/homicidal ideation Reflexes: 3+ bicep (R), 3+ bicep (L), 3+ tricep (R), 3+ tricep (L), 3+ knee (R) , 3+ knee (L) Skin: other - see nursing skin notes Lymphatic: no adenopathy Medical Decision Making Diagnostic Impression: Primary Impression: Renal failure (ARF), acute on chronic Qualified Codes: N17.9 - Acute kidney failure, unspecified; N18.9 - Chronic kidney disease, unspecified Additional Impressions: Hypoglycemia Anemia Qualified Codes: D64.9 - Anemia, unspecified Pleural effusion ER Course Hospital Course 69-year-old female presenting to ED with generalized weakness, low FS in field Differential diagnoses include: dehyration, sepsis, hypoglycemia Clinical course Patient placed on stretcher. On mover helper. After initial history and physical I ordered labs, D50 Labs-glucose 78, BUN/Cr elevated, no leukocytosis, hb 7.7, UA negative EKG - bradycardia not defined rhythm CXR - large pleural effusion She required additional D50 in ED. Given antibiotics. Patient is on hospice care but according to family is full code. Case discussed with Dr. King and he agreed to accept the patient to his service for further care and support i. I feel this is a highly complex case requiring extensive working including EKG/Rhythm strip, Xray/CT/US, Blood/urine lab work, repeat exams while in ED, and administration of strong opiates/narcotics for pain control, admission to hospital or close patient follow up. diagnosis - acute on chronic renal failure, hypoglycemai, anemia, pleural effusion admitted to telemetry in serious condition Labs Test 01/11/20 11:35 01/11/20 11:54 White Blood Count 6.6 K/UL (4.8-10.8) Red Blood Count 2.81 M/UL (4.20-5.40) Hemoglobin 7.7 G/DL (12.0-16.0) Hematocrit 24.9 % (37.0-47.0) Mean Corpuscular Volume 89 FL (80-99) Mean Corpuscular Hemoglobin 27.3 PG (27.0-31.0) Mean Corpuscular Hemoglobin Concent 30.8 G/DL (32.0-36.0) Red Cell Distribution Width 18.2 % (11.6-14.8) Platelet Count 221 K/UL (150-450) Mean Platelet Volume 6.3 FL (6.5-10.1) Neutrophils (%) (Auto) % (45.0-75.0) Lymphocytes (%) (Auto) % (20.0-45.0) Monocytes (%) (Auto) % (1.0-10.0) Eosinophils (%) (Auto) % (0.0-3.0) Basophils (%) (Auto) % (0.0-2.0) Differential Total Cells Counted 100 Neutrophils % (Manual) 90 % (45-75) Lymphocytes % (Manual) 5 % (20-45) Monocytes % (Manual) 4 % (1-10) Eosinophils % (Manual) 1 % (0-3) Basophils % (Manual) 0 % (0-2) Band Neutrophils 0 % (0-8) Platelet Estimate Adequate Platelet Morphology Normal Hypochromasia 1+ Anisocytosis 1+ Sodium Level 135 MMOL/L (136-145) Potassium Level 5.7 MMOL/L (3.5-5.1) Chloride Level 105 MMOL/L (98-107) Carbon Dioxide Level 20 MMOL/L (21-32) Anion Gap 10 mmol/L (5-15) Blood Urea Nitrogen 85 mg/dL (7-18) Creatinine 2.7 MG/DL (0.55-1.30) Estimat Glomerular Filtration Rate 17.5 mL/min (>60) Glucose Level 78 MG/DL (74-106) Calcium Level 8.9 MG/DL (8.5-10.1) Total Bilirubin 0.4 MG/DL (0.2-1.0) Aspartate Amino Transf (AST/SGOT) 43 U/L (15-37) Alanine Aminotransferase (ALT/SGPT) 58 U/L (12-78) Alkaline Phosphatase 381 U/L (46-116) Total Protein 7.5 G/DL (6.4-8.2) Albumin 3.1 G/DL (3.4-5.0) Globulin 4.4 g/dL Albumin/Globulin Ratio 0.7 (1.0-2.7) Lipase 200 U/L (73-393) Urine Color Yellow Urine Appearance Clear Urine pH 5 (4.5-8.0) Urine Specific [place] 1.015 (1.005-1.035) Urine Protein 3+ (NEGATIVE) Urine Glucose (UA) Negative (NEGATIVE) Urine Ketones Negative (NEGATIVE) Urine Blood Negative (NEGATIVE) Urine Nitrite Negative (NEGATIVE) Urine Bilirubin Negative (NEGATIVE) Urine Urobilinogen Normal MG/DL (0.0-1.0) Urine Leukocyte Esterase Negative (NEGATIVE) Urine RBC 0 /HPF (0 - 2) Urine WBC 0 /HPF (0 - 2) Urine Squamous Epithelial Cells Occasional /LPF Urine Bacteria Few /HPF (NONE) EKG Diagnostic Results Rate: bradycardiac Rhythm: other - nonspecific block ST Segments: no acute changes ASA given to the pt in ED: No Rhythm Strip Diag. Results EP Interpretation: yes Rhythm: no PVC's, no ectopy Chest X-Ray Diagnostic Results Chest X-Ray Diagnostic Results : Chest X-Ray Ordered: Yes # of Views/Limited/Complete: 1 View Indication: Shortness of Breath EP Interpretation: Yes Interpretation: no pneumothorax, other - pleural effusion Impression: Other - pleural effusion Electronically Signed by: Electronically signed by Colby Bennett MD Last Vital Signs Date Time Temp Pulse Resp B/P (MAP) Pulse Ox O2 Delivery O2 Flow Rate FiO2 01/11/20 11:27 98.2 51 20 151/58 97 Room Air Status: improved Disposition: ADMITTED INPATIENT Condition: Serious Referrals: [facility],REFERRING (PCP) Colby Bennett MD Jan 11, 2020 12:50
[2020-01-11 13:02] LABS: APPEARANCE,URINE CLEAR; BILIRUBIN, URINE NEGATIVE (NEGATIVE); COLOR,URINE YELLOW; GLUCOSE, URINE (UA) NEGATIVE (NEGATIVE); KETONES,URINE NEGATIVE (NEGATIVE); LEUKOCYTE ESTERASE ,URINE NEGATIVE (NEGATIVE); NITRITE,URINE NEGATIVE (NEGATIVE); PH,URINE 5 (4.5-8.0); PROTEIN,URINE 3+ (NEGATIVE); UROBILINOGEN,URINE NORMAL MG/DL (0.0-1.0)
[2020-01-11] MEDS ORDERED: ULTRAM50 MG ORAL (13:34)
[2020-01-11] MEDS ORDERED: DOCUSATE SODIU100 M2 ORAL (13:34)
[2020-01-11] MEDS ORDERED: SYNTHROID75 MCG ORAL (13:34)
[2020-01-11 13:35] VITALS: BP 149/57
--- NOTE | 2020-01-11 14:44 | Diagnostic Imaging Report ---
Indication: Shortness of breath Technique: One view of the chest Comparison: 11/11/2019 Findings: Interim development of opacity at the right lung base, likely pleural fluid. There may also be some infiltrate. There is mild interstitial congestion, slightly greater than on the prior study. The heart is enlarged. Impression: Right basilar pleural fluid and possible consolidation Mild interstitial congestion Cardiomegaly
[2020-01-11 16:31] VITALS: BP 144/76
--- NOTE | 2020-01-11 16:45 | NUR ---
ED Nurse Note: BS checked - 56. Pt is asymptomatic. 2 apple juices and half sandwich given. Will recheck BS in 15 minutes. Addendum: 01/11/20 at 1650 by STEFANIE PARIS sebastian
--- NOTE | 2020-01-11 16:55 | NUR ---
ED Nurse Note: BS rechecked is 52. ED MD aware and ordering IV medication.
--- NOTE | 2020-01-11 16:56 | NUR ---
ED Nurse Note: Report given to BHAVIN Lauren on 2E.
[2020-01-11] MEDS ORDERED: D5 1/2NS 1,000 ML IV SCH (17:00)
--- NOTE | 2020-01-11 17:25 | NUR ---
ED Nurse Note: Pt transferred safely to 2E
--- NOTE | 2020-01-11 17:25 | Consultation ---
Consult Note Consult Note Asked to evaluate at the request of Dr. Dyllan King for renal failure and hyperkalemia Patient seen in emergency room Data reviewed 69-year-old female presents the ED for hypoglycemia. Brought in from home by EMS. Accu-Chek in the 20s. Given D10. Blood sugar did improve. Patient is more awake alert oriented. History of diabetes. Denies any pain. Denies any fevers or chills. Denies cough. No other aggravating relieving factors. Denies any other associated symptoms COVID-19 risk:Contact w/high r: No COVID-19 risk:Travel to affect: No Has patient experienced fountain: No No Known Allergies (Unverified , 10/10/19) Past Medical History: DM, HTN, CHF Social History: Denies: smoking, alcohol use, drug use Now: No Immunizations: UTD Reviewed Nursing Documentation: PMH: Agreed; PSxH: Agreed Hx Cardiac Problems: Yes - ESHF Hx Hypertension: Yes Hx Diabetes: Yes Assessment/Plan Renal failure (ARF), acute on chronic 3+ proteinuria and hypoalbuminemia will rule out nephrotic syndrome Hypoglycemia Anemia Pleural effusion Morbid obesity 2D echocardiogram Kidney ultrasound Anemia work-up 1 dose Kayexalate Urine studies Keep blood pressure and blood sugar in check Monitor renal parameters Jay Severino MD Jan 11, 2020 17:25
[2020-01-11] MEDS ORDERED: Sodium Polystyrene Sulfonate 15gm Powder ORAL SCH (17:30)
[2020-01-11 17:58] LABS: INR 1.2 (0.9-1.1)
[2020-01-11] MEDS ORDERED: Albuterol/Ipratropium 3ml neb HHN PRN (18:00)
[2020-01-11] MEDS: Docusate 100mg cap ORAL SCH (18:11)
[2020-01-11] MEDS: D5NS 1,000 ML IV SCH (18:14)
[2020-01-11 18:22] VITALS: BP 140/94
--- NOTE | 2020-01-11 19:38 | NUR ---
NURSE NOTES: Pt received from BHAVIN Lauren. Pt is alert x2, oriented to self and hospital, able to make needs known has confusion at times, admitted due to low blood sugar and R pleural effusion, most recent BG was in the 70's. She is incontinent x2 and it was reported that she is a hospice pt. Pt states she cannot find her phone and glasses and believes she had them however they are not recorded and were not present at admission. Will call family to check regarding her belongings and got a hospital telephone for her to call her family from her room. Will continue to monitor pt.
[2020-01-11 20:00] VITALS: BP 108/50
[2020-01-11] MEDS ORDERED: Miralax 17gm pkt ORAL PRN (21:00)
[2020-01-11] MEDS: NovoLOG Insulin Flexpen SUBQ SCH (21:00)
[2020-01-11] MEDS ORDERED: Zolpidem 5mg tab ORAL PRN (21:00)
--- NOTE | 2020-01-11 22:00 | NUR ---
NURSE NOTES: Pt alert and oriented to name, place, time and purpose however is very forgetful and perseverates
[2020-01-11] MEDS: Atorvastatin 80mg tab ORAL SCH (22:08)
[2020-01-11] MEDS: Heparin 5000 units/ml inj SUBQ SCH (22:09)
[2020-01-12 00:13] VITALS: BP 110/51
[2020-01-12 04:00] VITALS: BP 145/56
[2020-01-12] MEDS: NovoLOG Insulin Flexpen SUBQ SCH ×4 (05:59→21:00)
[2020-01-12] MEDS: D5NS 1,000 ML IV SCH ×2 (06:48→20:10)
--- NOTE | 2020-01-12 07:39 | NUR ---
NURSE NOTES: pt in bed resting, AOx4, on monitor tech no complaints of chest pain or respiratory issues. Pt report having no pain. Bed is locked and in lowest position, rails up X2 for safety, bed alarm on. Will continue to monitor pt.
--- NOTE | 2020-01-12 07:40 | NUR ---
HAND-OFF: Report given to BHAVIN Perez.
[2020-01-12 08:10] LABS: CREATINE KINASE 103 U/L (26-308)
[2020-01-12 08:13] VITALS: BP 132/64
[2020-01-12 08:28] LABS: HEMATOCRIT 23.4 % (37.0-47.0); HEMOGLOBIN 7.3 G/DL (12.0-16.0); MEAN CORPUSCULAR VOLUME 87 FL (80-99); PLATELET COUNT 214 K/UL (150-450); RED BLOOD COUNT 2.67 M/UL (4.20-5.40); RED CELL DISTRIBUTION WIDTH 17.5 % (11.6-14.8); WHITE BLOOD COUNT 4.9 K/UL (4.8-10.8)
[2020-01-12 08:40] LABS: ALANINE AMINOTRANSFERASE 46 U/L (12-78); ALBUMIN 2.7 G/DL (3.4-5.0); ALBUMIN/GLOBULIN RATIO 0.7 (1.0-2.7); ALKALINE PHOSPHATASE 327 U/L (46-116); ANION GAP 14 mmol/L (5-15); ASPARTATE AMINO TRANSFERASE 31 U/L (15-37); BILIRUBIN,TOTAL 0.4 MG/DL (0.2-1.0); BLOOD UREA NITROGEN 90 mg/dL (7-18); CALCIUM 8.5 MG/DL (8.5-10.1); CARBON DIOXIDE 19 MMOL/L (21-32); CHLORIDE 110 MMOL/L (98-107); CHOLESTEROL 103 MG/DL (< 200); CREATININE 2.7 MG/DL (0.55-1.30); FERRITIN 296 NG/ML (8-388); GAMMA GLUTAMYL TRANSPEPTIDASE 158 U/L (5-85); HDL CHOLESTEROL 33 MG/DL (40-60); PHOSPHORUS 5.2 MG/DL (2.5-4.9); POTASSIUM 5.9 MMOL/L (3.5-5.1); SODIUM 143 MMOL/L (136-145); TRIGLYCERIDES 70 MG/DL (30-150)
[2020-01-12] MEDS: Docusate 100mg cap ORAL SCH ×3 (09:00→17:58)
[2020-01-12 09:01] LABS: % IRON SATURATION 9 % (15-50); IRON 22 ug/dL (50-175); TOTAL IRON BINDING CAPACITY 240 ug/dL (250-450)
--- NOTE | 2020-01-12 09:36 | Diagnostic Imaging Report ---
EXAM: US Retroperitoneal Complete, Renal CLINICAL HISTORY: RENAL-A TECHNIQUE: Real-time complete ultrasound of the retroperitoneum with image documentation. COMPARISON: Renal ultrasound 11/12/19, CT abdomen and pelvis 11/11/19 FINDINGS: Inferior vena cava: IVC patent. Right kidney: Multiple right renal anechoic cysts, largest 2 cm. Right kidney measures 9.26 x 4.06 x 6.01 cm. No stones. Left kidney: Left kidney measures 10.17 x 5.92 x 5.12 cm. No stones. No hydronephrosis. Bladder: Urinary bladder unremarkable. IMPRESSION: Multiple right renal anechoic cysts, largest 2 cm. No hydronephrosis.
[2020-01-12] MEDS: Heparin 5000 units/ml inj SUBQ SCH ×2 (09:54→21:00)
[2020-01-12] MEDS ORDERED: Sodium Polystyrene Sulfonate 15gm Powder ORAL SCH (10:15)
--- NOTE | 2020-01-12 10:19 | Nephrology Progress Note ---
Assessment/Plan Problem List: (1) Renal failure (ARF), acute on chronic (2) Diabetes mellitus (3) Hypoglycemia (4) Hyperkalemia (5) Diabetic nephropathy Assessment Renal failure (ARF), acute on chronic Hyperkalemia Hypoglycemia Anemia Pleural effusion Morbid obesity Plan Chan catheter Monitor 4-hour urine collection for total protein 2D echocardiogram ejection fraction is reported to 50% Kidney ultrasound pending Anemia work-up leading to low iron intravenous iron ordered As needed Kayexalate for high potassium Urine studies Keep blood pressure and blood sugar in check Monitor renal parameters Subjective ROS Limited/Unobtainable: No Constitutional: Reports: malaise, weakness Objective Objective Last 24 Hour Vital Signs Date Time Temp Pulse Resp B/P (MAP) Pulse Ox O2 Delivery O2 Flow Rate FiO2 01/12/20 09:51 70 132/64 01/12/20 08:13 96.6 70 19 132/64 (86) 96 01/12/20 04:00 Room Air 01/12/20 04:00 97.5 70 20 145/56 (85) 96 01/12/20 04:00 70 01/12/20 00:13 97.3 96 20 110/51 (70) 94 01/12/20 00:00 66 01/11/20 23:29 Room Air 01/11/20 20:00 50 01/11/20 20:00 97.0 52 16 108/50 (69) 97 01/11/20 19:30 Room Air 01/11/20 18:22 96.2 49 18 140/94 (109) 97 01/11/20 17:25 98.2 46 20 139/78 97 Room Air 01/11/20 16:31 97.9 44 20 144/76 99 Room Air 01/11/20 13:35 98.0 45 20 149/57 97 Room Air 01/11/20 11:27 98.2 51 20 151/58 97 Room Air 01/11/20 11:13 98.2 79 20 131/63 (85) 94 Room Air Intake and Output 01/11/20 01/12/20 19:00 07:00 Intake Total 150 ml Output Total 300 ml Balance -150 ml Intake IV Total 150 ml Output Urine Total 300 ml # Voids 4 # Bowel Movements 10 Laboratory Tests 01/11/20 11:35: White Blood Count 6.6, Red Blood Count 2.81L, Hemoglobin 7.7L, Hematocrit 24.9L , Mean Corpuscular Volume 89, Mean Corpuscular Hemoglobin 27.3, Mean Corpuscular Hemoglobin Concent 30.8L, Red Cell Distribution Width 18.2H, Platelet Count 221, Mean Platelet Volume 6.3L, Neutrophils (%) (Auto) , Lymphocytes (%) (Auto) , Monocytes (%) (Auto) , Eosinophils (%) (Auto) , Basophils (%) (Auto) , Differential Total Cells Counted 100, Neutrophils % ( Manual) 90H, Lymphocytes % (Manual) 5L, Monocytes % (Manual) 4, Eosinophils % ( Manual) 1, Basophils % (Manual) 0, Band Neutrophils 0, Platelet Estimate Adequate, Platelet Morphology Normal, Hypochromasia 1+, Anisocytosis 1+, Sodium Level 135L, Potassium Level 5.7H, Chloride Level 105, Carbon Dioxide Level 20L, Anion Gap 10, Blood Urea Nitrogen 85H, Creatinine 2.7H, Estimat Glomerular Filtration Rate 17.5, Glucose Level 78, Calcium Level 8.9, Total Bilirubin 0.4, Aspartate Amino Transf (AST/SGOT) 43H, Alanine Aminotransferase (ALT/SGPT) 58, Alkaline Phosphatase 381H, Total Protein 7.5, Albumin 3.1L, Globulin 4.4, Albumin/Globulin Ratio 0.7L, Lipase 200 01/11/20 11:54: Urine Color Yellow, Urine Appearance Clear, Urine pH 5, Urine Specific [place] 1.015, Urine Protein 3+H, Urine Glucose (UA) Negative, Urine Ketones Negative, Urine Blood Negative, Urine Nitrite Negative, Urine Bilirubin Negative, Urine Urobilinogen Normal, Urine Leukocyte Esterase Negative, Urine RBC 0, Urine WBC 0 , Urine Squamous Epithelial Cells Occasional, Urine Bacteria Few, Urine Random Sodium < 20L 01/11/20 15:15: Prothrombin Time 12.4H, Prothromb Time International Ratio 1.2H, Activated Partial Thromboplast Time 35H, Lactic Acid Level 2.10H 01/11/20 16:00: Lactic Acid Level 1.90 01/12/20 06:47: White Blood Count 4.9, Red Blood Count 2.67L, Hemoglobin 7.3L, Hematocrit 23.4L , Mean Corpuscular Volume 87, Mean Corpuscular Hemoglobin 27.4, Mean Corpuscular Hemoglobin Concent 31.4L, Red Cell Distribution Width 17.5H, Platelet Count 214, Mean Platelet Volume 6.4L, Neutrophils (%) (Auto) , Lymphocytes (%) (Auto) , Monocytes (%) (Auto) , Eosinophils (%) (Auto) , Basophils (%) (Auto) , Neutrophils % (Manual) [Pending], Lymphocytes % (Manual) [Pending], Platelet Estimate [Pending], Platelet Morphology [Pending], Sodium Level 143, Potassium Level 5.9H, Chloride Level 110H, Carbon Dioxide Level 19L, Anion Gap 14, Blood Urea Nitrogen 90H, Creatinine 2.7H, Estimat Glomerular Filtration Rate 17.5, Glucose Level 96, Hemoglobin A1c 7.6H, Lactic Acid Level 1.90, Uric Acid 9.8H, Calcium Level 8.5, Phosphorus Level 5.2H, Magnesium Level 2.8H, Iron Level 22L, Total Iron Binding Capacity 240L, Percent Iron Saturation 9L, Unsaturated Iron Binding 218, Ferritin 296, Total Bilirubin 0.4, Gamma Glutamyl Transpeptidase 158H, Aspartate Amino Transf (AST/SGOT) 31, Alanine Aminotransferase (ALT/SGPT) 46, Alkaline Phosphatase 327H, Total Creatine Kinase 103, Troponin I 0.047, C-Reactive Protein, Quantitative 5.4H, Pro-B-Type Natriuretic Peptide 5756H, Total Protein 6.7, Albumin 2.7L, Globulin 4.0, Albumin/Globulin Ratio 0.7L, Triglycerides Level 70, Cholesterol Level 103, LDL Cholesterol 55, HDL Cholesterol 33L, Cholesterol/HDL Ratio 3.1L, Vitamin B12 Level 1500H, Folate 12.1, Thyroid Stimulating Hormone (TSH) 7.261H Height (Feet): 5 Height (Inches): 2.00 Weight (Pounds): 204 General Appearance: no apparent distress, mild distress Cardiovascular: normal rate Respiratory/Chest: decreased breath sounds Abdomen: other - This Jay Severino MD Jan 12, 2020 10:19
--- NOTE | 2020-01-12 10:30 | History and Physical Report ---
DATE OF ADMISSION: 01/11/2020 DATE AND TIME SEEN: 01/12/2020, 8 a.m. CONSULTANTS: 1. Jay Severino M.D. 2. Tiana Cool M.D. 3. Aki Morris M.D. 4. Sina Paulson M.D. CHIEF COMPLAINT: Hypoglycemia, pleural effusion, chest pain. BRIEF HISTORY: This is a 69-year-old female, who lives at home, apparently was hypoglycemic. Family got worse. The patient was previously on hospice. The patient was brought into [facility], admitted to medical floor for further treatment. Currently, confused in bed, slightly weak. No complaint. REVIEW OF SYSTEMS: Slight chest pain. No shortness of breath. No nausea, vomiting, or diarrhea. PAST MEDICAL HISTORY: Includes renal failure, diabetes, hypertension. PAST SURGICAL HISTORY: Heart surgery. ALLERGIES: Denies. MEDICATION: Include amlodipine, levothyroxine, pantoprazole, polyethylene glycol, zolpidem, insulin, docusate sodium, Tylenol, Zofran. SOCIAL HISTORY: No smoking. No alcohol. No intravenous drug abuse. FAMILY HISTORY: Noncontributory. PHYSICAL EXAMINATION: GENERAL: Slightly confused in bed, oriented x1, slightly anxious. VITAL SIGNS: Temperature is 97 degrees, pulse 70, respirations 19, and blood pressure 132/64. CARDIOVASCULAR: No murmur. LUNGS: Distant and clear. ABDOMEN: Bowel sounds positive. Nontender. Nondistended. EXTREMITIES: No cyanosis, clubbing, or edema. NEUROLOGIC: The patient moves all extremities, slightly weak. LABORATORY AND DIAGNOSTIC DATA: Labs at this time show hemoglobin and hematocrit 7.7/24, otherwise CBC is normal. BMP show potassium 5.9, chloride 110, CO2 19, BUN and creatinine 90/2.7. BNP is 5756. Albumin is 2.7. TSH 7.2. INR is 1.2. Urinalysis is negative. ASSESSMENT: 1. Hypoglycemia. 2. Pleural effusion. 3. Chest pain. 4. Renal failure. 5. Anemia. 6. Diabetes. 7. Hypertension. 8. Malnutrition. PLAN: 1. PT/OT. 2. Dietary follow up. 3. Blood pressure, blood sugar control. 4. IV fluids. 5. We will add Cardiology, Psychiatry, Hematology, GI, Endocrinology to follow. 6. We will continue to follow this patient. Dyllan King D.O. DR: MAKSIM JOB#: [id number] CC:
--- NOTE | 2020-01-12 11:55 | Consultation ---
History of Present Illness General Date patient seen: Jan 12, 2020 Time patient seen: 08:30 Chief Complaint: hypoglycemia Referring physician: Dr King Reason for Consultation: in hospital management Present Illness HPI 69-year-old female with PMH of DM, HTN, CHF, morbidly obese, presented to ED from home by paramedics for evaluation due to hypoglycemia. Accu-Chek was 26. Patient received 250 cc of D10, and blood sugar improved. Upon arrival to ED BS 73. Patient was more awake . oriented and verbally responsive. She denied fevers or chills. She denied cough. Laboratory workup revealed potassium 5.7. BUN 85, creatinine 2.7. Lactic acid 2.1, repeated 1.9. Albumin 3.1. No leukocytosis ,hemoglobin 7.7 ,hematocrit 24.9 Urinalysis revealed +3 protein , no evidence of urinary tract infection . Random sodium less than 20. Chest x-ray demonstrated right basilar pleural fluid , possible consolidation. Mild interstitial congestion. Cardiomegaly. Patient subsequently admitted for further management to telemetry floor. This am patient afebrile, no leukocytosis, pulse ox stable on RA. BS stable. Allergies: Coded Allergies: No Known Allergies (Unverified , 10/10/19) Medication History Scheduled Albuterol Sulfate (Ventolin Hfa), 2 PUFFS INH EVERY 6 HOURS, (Reported) Amlodipine Besylate* (Amlodipine Besylate*), 5 MG ORAL DAILY, (Reported) Atorvastatin (Lipitor), 80 MG ORAL DAILY, (Reported) Atorvastatin Calcium* (Atorvastatin Calcium*), Unknown Dose ORAL BEDTIME, ( Reported) Benazepril Hcl* (Benazepril Hcl*), 40 MG ORAL DAILY, (Reported) Docusate Sodium (Docusate Sodium), 100 MG ORAL DAILY, (Reported) Gabapentin* (Gabapentin*), 300 MG ORAL DAILY, (Reported) Levothyroxine Sodium* (Synthroid*), 75 MCG ORAL DAILY, (Reported) Pantoprazole* (Pantoprazole*), 40 MG ORAL EVERY 12 HOURS, (Reported) Tramadol Hcl (Ultram*), 50 MG ORAL Q4H, (Reported) Miscellaneous Medications Acetaminophen (Mapap), 500 MG PO, (Reported) Betamet Diprop/Prop Gly (Betamethasone Dp Aug 0.05% Crm), 15 GM TP, (Reported) Insulin Aspart (Novolog), 60, (Reported) Metformin Hcl* (Metformin Hcl*), Unknown Dose ORAL, (Reported) Discontinued Medications Allopurinol* (Allopurinol*), 300 MG ORAL DAILY, (Reported) Discontinued Reason: MD discontinued med Azithromycin* (Zithromax*), 250 MG ORAL DAILY, (Reported) Discontinued Reason: MD discontinued med Furosemide* (Lasix*), 20 MG ORAL DAILY, (Reported) Discontinued Reason: Medication dose changed Furosemide* (Lasix*), 40 MG ORAL DAILY, (Reported) Discontinued Reason: MD discontinued med Hydralazine Hcl* (Hydralazine Hcl*), 10 MG ORAL EVERY 8 HOURS, (Reported) Discontinued Reason: MD discontinued med Hydrochlorothiazide* (Hydrochlorothiazide*), Unknown Dose ORAL, (Reported) Discontinued Reason: MD discontinued med Hydrochlorothiazide* (Hydrochlorothiazide*), 12.5 MG ORAL DAILY, (Reported) Discontinued Reason: MD discontinued med Isosorbide Dinitrate* (Isordil*), 30 MG ORAL TWICE A DAY, (Reported) Discontinued Reason: MD discontinued med Linaclotide (Linzess), 145 MCG PO, (Reported) Discontinued Reason: MD discontinued med Lisinopril (Lisinopril*), Unknown Dose ORAL, (Reported) Discontinued Reason: MD discontinued med Metoprolol Succinate* (Metoprolol Succinate*), 100 MG ORAL DAILY, (Reported) Discontinued Reason: MD discontinued med Nitroglycerin 0.4MG table* (Nitroglycerin*), 0.4 MG SL .Q5MIN X 3 DOSES PRN for CHEST PAIN, (Reported) Discontinued Reason: MD discontinued med Oxybutynin Chloride (Ditropan Xl), 10 MG ORAL DAILY, (Reported) Discontinued Reason: MD discontinued med Patient History Healthcare decision maker Resuscitation status Full Code Advanced Directive on File Past Medical/Surgical History Past Medical/Surgical History: (1) Diabetes mellitus (2) Diabetic nephropathy (3) Moderate pulmonary arterial systolic hypertension (4) Left bundle branch block (LBBB) (5) History of hypertension (6) Renal failure (ARF), acute on chronic Review of Systems Constitutional: Reports: no symptoms Eye: Reports: no symptoms ENT: Reports: no symptoms Respiratory: Reports: no symptoms Cardiovascular: Reports: no symptoms, other - hx of HTN and CHF Gastrointestinal: Reports: constipation Genitourinary: Reports: no symptoms Musculoskeletal: Reports: muscle pain Skin: Reports: no symptoms Psychiatric: Reports: no symptoms Neurological: Reports: no symptoms Endocrine: Reports: see HPI Hematologic/Lymphatic: Reports: anemia, other - DM Physical Exam General Appearance: no apparent distress, morbidly obese - Czech speaking female Lines, tubes and drains: peripheral HEENT: normocephalic, atraumatic, anicteric, mucous membranes moist, PERRL Neck: non-tender, supple Respiratory/Chest: no respiratory distress, no accessory muscle use, decreased breath sounds Cardiovascular/Chest: normal rate, regular rhythm Abdomen: normal bowel sounds, non tender, soft - obese Neurologic: alert, oriented x 3, responsive Musculoskeletal: normal muscle bulk Last 24 Hour Vital Signs Date Time Temp Pulse Resp B/P (MAP) Pulse Ox O2 Delivery O2 Flow Rate FiO2 01/12/20 10:47 Room Air 01/12/20 09:51 70 132/64 01/12/20 09:00 Room Air 01/12/20 08:13 96.6 70 19 132/64 (86) 96 01/12/20 08:00 76 01/12/20 04:00 Room Air 01/12/20 04:00 97.5 70 20 145/56 (85) 96 01/12/20 04:00 70 01/12/20 00:13 97.3 96 20 110/51 (70) 94 01/12/20 00:00 66 01/11/20 23:29 Room Air 01/11/20 20:00 50 01/11/20 20:00 97.0 52 16 108/50 (69) 97 01/11/20 19:30 Room Air 01/11/20 18:22 96.2 49 18 140/94 (109) 97 01/11/20 17:25 98.2 46 20 139/78 97 Room Air 01/11/20 16:31 97.9 44 20 144/76 99 Room Air 01/11/20 13:35 98.0 45 20 149/57 97 Room Air Intake and Output 01/11/20 01/12/20 19:00 07:00 Intake Total 150 ml Output Total 300 ml Balance -150 ml Intake IV Total 150 ml Output Urine Total 300 ml # Voids 4 # Bowel Movements 10 Laboratory Tests Test 01/11/20 11:54 01/11/20 15:15 01/11/20 16:00 01/12/20 06:47 Urine Color Yellow Urine Appearance Clear Urine pH 5 (4.5-8.0) Urine Specific [place] 1.015 (1.005-1.035) Urine Protein 3+ (NEGATIVE) H Urine Glucose (UA) Negative (NEGATIVE) Urine Ketones Negative (NEGATIVE) Urine Blood Negative (NEGATIVE) Urine Nitrite Negative (NEGATIVE) Urine Bilirubin Negative (NEGATIVE) Urine Urobilinogen Normal MG/DL (0.0-1.0) Urine Leukocyte Esterase Negative (NEGATIVE) Urine RBC 0 /HPF (0 - 2) Urine WBC 0 /HPF (0 - 2) Urine Squamous Epithelial Cells Occasional /LPF Urine Bacteria Few /HPF (NONE) Urine Random Sodium < 20 mmol/L (20-110) L Prothrombin Time 12.4 SEC (9.30-11.50) H Prothromb Time International Ratio 1.2 (0.9-1.1) H Activated Partial Thromboplast Time 35 SEC (23-33) H Lactic Acid Level 2.10 mmol/L (0.4-2.0) H 1.90 mmol/L (0.66-2.22) 1.90 mmol/L (0.4-2.0) White Blood Count 4.9 K/UL (4.8-10.8) Red Blood Count 2.67 M/UL (4.20-5.40) L Hemoglobin 7.3 G/DL (12.0-16.0) L Hematocrit 23.4 % (37.0-47.0) L Mean Corpuscular Volume 87 FL (80-99) Mean Corpuscular Hemoglobin 27.4 PG (27.0-31.0) Mean Corpuscular Hemoglobin Concent 31.4 G/DL (32.0-36.0) L Red Cell Distribution Width 17.5 % (11.6-14.8) H Platelet Count 214 K/UL (150-450) Mean Platelet Volume 6.4 FL (6.5-10.1) L Neutrophils (%) (Auto) % (45.0-75.0) Lymphocytes (%) (Auto) % (20.0-45.0) Monocytes (%) (Auto) % (1.0-10.0) Eosinophils (%) (Auto) % (0.0-3.0) Basophils (%) (Auto) % (0.0-2.0) Neutrophils % (Manual) Pending Lymphocytes % (Manual) Pending Platelet Estimate Pending Platelet Morphology Pending Sodium Level 143 MMOL/L (136-145) Potassium Level 5.9 MMOL/L (3.5-5.1) H Chloride Level 110 MMOL/L (98-107) H Carbon Dioxide Level 19 MMOL/L (21-32) L Anion Gap 14 mmol/L (5-15) Blood Urea Nitrogen 90 mg/dL (7-18) H Creatinine 2.7 MG/DL (0.55-1.30) H Estimat Glomerular Filtration Rate 17.5 mL/min (>60) Glucose Level 96 MG/DL (74-106) Hemoglobin A1c 7.6 % (4.3-6.0) H Uric Acid 9.8 MG/DL (2.6-7.2) H Calcium Level 8.5 MG/DL (8.5-10.1) Phosphorus Level 5.2 MG/DL (2.5-4.9) H Magnesium Level 2.8 MG/DL (1.8-2.4) H Iron Level 22 ug/dL (50-175) L Total Iron Binding Capacity 240 ug/dL (250-450) L Percent Iron Saturation 9 % (15-50) L Unsaturated Iron Binding 218 ug/dL (112-346) Ferritin 296 NG/ML (8-388) Total Bilirubin 0.4 MG/DL (0.2-1.0) Gamma Glutamyl Transpeptidase 158 U/L (5-85) H Aspartate Amino Transf (AST/SGOT) 31 U/L (15-37) Alanine Aminotransferase (ALT/SGPT) 46 U/L (12-78) Alkaline Phosphatase 327 U/L (46-116) H Total Creatine Kinase 103 U/L (26-308) Troponin I 0.047 ng/mL (0.000-0.056) C-Reactive Protein, Quantitative 5.4 mg/dL (0.00-0.90) H Pro-B-Type Natriuretic Peptide 5756 pg/mL (0-125) H Total Protein 6.7 G/DL (6.4-8.2) Albumin 2.7 G/DL (3.4-5.0) L Globulin 4.0 g/dL Albumin/Globulin Ratio 0.7 (1.0-2.7) L Triglycerides Level 70 MG/DL (30-150) Cholesterol Level 103 MG/DL (< 200) LDL Cholesterol 55 mg/dL (<100) HDL Cholesterol 33 MG/DL (40-60) L Cholesterol/HDL Ratio 3.1 (3.3-4.4) L Vitamin B12 Level 1500 PG/ML (193-986) H Folate 12.1 NG/ML (8.6-58.9) Thyroid Stimulating Hormone (TSH) 7.261 uiU/mL (0.358-3.740) Height (Feet): 5 Height (Inches): 2.00 Weight (Pounds): 204 Medications Current Medications Medications (Trade) Dose Ordered Sig/[place] Route PRN Reason Start Time Stop Time Status Last Admin Dose Admin Acetaminophen (Tylenol) 650 mg Q4H PRN ORAL fever 01/11/20 18:00 02/10/20 17:59 Albuterol/ Ipratropium (Albuterol/ Ipratropium) 3 ml Q6H PRN HHN dyspnea 01/11/20 18:00 01/16/20 17:59 Allopurinol (allopurinoL) 300 mg DAILY ORAL 01/12/20 10:15 02/11/20 10:14 01/12/20 11:45 Amlodipine Besylate (Norvasc) 5 mg DAILY ORAL 01/12/20 09:00 02/11/20 08:59 01/12/20 09:51 Atorvastatin Calcium (Lipitor) 80 mg QHS ORAL 01/11/20 21:00 04/10/20 20:59 01/11/20 22:08 Clonidine HCl (Catapres Tab) 0.1 mg Q4H PRN ORAL For High Blood Pressure 01/11/20 18:00 04/10/20 17:59 Dextrose (Dextrose 50%) 25 ml Q30M PRN IV Hypoglycemia 01/11/20 18:00 04/10/20 17:59 Dextrose (Dextrose 50%) 50 ml Q30M PRN IV Hypoglycemia 01/11/20 18:00 04/10/20 17:59 Dextrose/Sodium Chloride 1,000 ml @ 75 mls/hr [id number] IV 01/11/20 17:30 02/10/20 17:29 01/12/20 06:48 Docusate Sodium (Colace) 100 mg TID ORAL 01/11/20 18:00 02/10/20 17:59 01/11/20 18:11 Epoetin Shlomo (Epoetin Shlomo-EPBX(NON ESRD)) 10,000 unit TUE-TUE-TUE SUBQ 01/14/20 21:00 04/13/20 20:59 Heparin Sodium (Porcine) (Heparin 5000 units/ml) 5,000 units EVERY 12 HOURS SUBQ 01/11/20 21:00 02/25/20 20:59 01/12/20 09:54 Insulin Aspart (NovoLOG) BEFORE MEALS AND HS SUBQ 01/11/20 21:00 04/10/20 20:59 Iron Sucrose 100 mg/Sodium Chloride 60 ml @ 240 mls/hr BEDTIME IV 01/13/20 21:00 01/17/20 21:14 Iron Sucrose 200 mg/Sodium Chloride 120 ml @ 240 mls/hr ONCE IV 01/12/20 12:00 01/12/20 14:00 Levothyroxine Sodium (Synthroid) 75 mcg ACBREAKFAST ORAL 01/12/20 06:30 02/11/20 06:29 01/12/20 06:47 Ondansetron HCl (Zofran) 4 mg Q6H PRN IVP Nausea & Vomiting 01/11/20 18:00 02/10/20 17:59 Pantoprazole (Protonix) 40 mg EVERY 12 HOURS ORAL 01/11/20 21:00 02/10/20 20:59 01/12/20 09:51 Polyethylene Glycol (Miralax) 17 gm HSPRN PRN ORAL Constipation 01/11/20 21:00 02/10/20 20:59 Sodium Polystyrene Sulfonate (Kayexalate) 45 gm ONCE ORAL 01/12/20 10:15 01/12/20 12:30 01/12/20 11:45 Zolpidem Tartrate (Ambien) 5 mg HSPRN PRN ORAL Insomnia 01/11/20 21:00 01/18/20 20:59 Assessment/Plan Assessment/Plan: ASSESSMENT Hypoglycemia Acute on chronic renal failure Anemia Pleural effusion Hyperkalemia Morbid obesity CHF Hypertension Diabetes mellitus PLAN OF CARE tele O2 HHN PRN fup with CXR in am ECHO Venous Duplex BLE if negative, will dc Heparin given anemia and start SCD DVT prophylaxis IVF with dextrose monitor BS, Hgb A1c -7.[address] anemia work-up c/w anemia of chronic disease, IV iron as ordered by nephro monitor H&H with goal to keep hemoglobin above 7 monitor renal parameters, lytes, correct electrolytes as needed, avoid nephrotoxic's renal US with multiple right renal anechoic cysts, largest 2 cm. No hydronephrosis. urine studies as per nephro Kayexalate for hyperkalemia GI prophylaxis supportive care case discussed and evaluated by supervising physician Jenna García NP Jan 12, 2020 11:55
[2020-01-12 12:00] VITALS: BP 127/60
[2020-01-12] MEDS ORDERED: Iron Sucrose 200 MG in NS 110 ML IV SCH (12:00)
[2020-01-12 16:00] VITALS: BP 129/84
--- NOTE | 2020-01-12 16:40 | Diagnostic Imaging Report ---
EXAM: US Duplex Bilateral Lower Extremities Veins CLINICAL HISTORY: SOB TECHNIQUE: Real-time duplex ultrasound scan of the bilateral lower extremity veins integrating B-mode two-dimensional vascular structure, Doppler spectral analysis, color flow Doppler imaging and compression. COMPARISON: Venous ultrasound 11/12/19 FINDINGS: Right deep veins: Unremarkable. No DVT in the right common femoral, femoral, proximal deep femoral or popliteal veins. The veins demonstrate normal color flow, are normally compressible, with normal phasic flow and/or augmentation response. Right superficial veins: Unremarkable. No thrombus in the visualized right great saphenous vein. Left deep veins: Unremarkable. No DVT in the left common femoral, femoral, proximal deep femoral or popliteal veins. The veins demonstrate normal color flow, are normally compressible, with normal phasic flow and/or augmentation response. Left superficial veins: Unremarkable. No thrombus in the visualized left great saphenous vein. Soft tissues: No acute findings. No popliteal cyst. IMPRESSION: Normal bilateral lower extremity duplex venous ultrasound.
--- NOTE | 2020-01-12 17:00 | Diagnostic Imaging Report ---
EXAM: US Abdomen Complete CLINICAL HISTORY: ABD PAIN TECHNIQUE: Real-time ultrasound of the abdomen with image documentation. COMPARISON: CT abdomen and pelvis 11/11/19 FINDINGS: Liver: Liver measures 14.9 cm. Slightly dense liver may be fatty. No intrahepatic bile duct dilation. Gallbladder: Gallbladder wall normal, 1.6 mm. No gallstones. Common bile duct: CBD normal, 4.2 mm. No stones. No dilation. Pancreas: Unremarkable as visualized. Kidneys: 2.3 cm right renal cyst. Another smaller right renal cyst. Right kidney measures 8.4 x 4.5 x 5.9 cm. Left kidney measures 9.0 x 5.6 x 5.7 cm. No stones. No hydronephrosis. Spleen: Spleen measures 9.9 cm. Aorta: Unremarkable. No aneurysm. Inferior vena cava: Unremarkable. Free fluid: Ascites. Pleural space: Right pleural effusion. IMPRESSION: 1. Slightly dense liver may be fatty. 2. Right pleural effusion. 3. Ascites. 4. No cholelithiasis or acute cholecystitis. 5. Small right renal cysts, largest 2 cm.
--- NOTE | 2020-01-12 17:30 | Consultation ---
DATE OF CONSULTATION: 01/12/2020 GASTROENTEROLOGY CONSULTATION CONSULTING PHYSICIAN: Francois Gunn M.D. CHIEF COMPLAINT: Anemia. HISTORY OF PRESENT ILLNESS: Most of the history per chart. Last admission in October was reviewed. I left a message for the family, pending call back for getting more history. This is a 69-year-old female admitted to the hospital mainly for hypoglycemia and was found to be profoundly anemic, so GI consult was requested for further evaluation. PAST MEDICAL HISTORY: Significant for: 1. Hypertension. 2. Diabetes. 3. History of chs-UM-yqcgoadkt myocardial infarction. 4. Chronic kidney disease. 5. Obesity. 6. Anemia of iron deficiency from last admission. 7. Cirrhosis based on CT from last admission. 8. Ascites based on the CT from last admission. 9. Kidney stones. 10. Hypothyroidism. ALLERGIES: No known drug allergies. MEDICATIONS: Please see medication reconciliation list. PAST SURGICAL HISTORY: None. SOCIAL HISTORY: The patient denies any tobacco, alcohol, or IV drug abuse. FAMILY HISTORY: Noncontributory. REVIEW OF SYSTEMS: Limited given the patient's current mental status. PHYSICAL EXAMINATION: VITAL SIGNS: Temperature is 96.6, pulse is 70, respirations 19, and blood pressure 132/64. HEENT: Normocephalic and atraumatic. Sclerae anicteric. NECK: Supple. No evidence of obvious lymphadenopathy. CARDIOVASCULAR: Regular rate and rhythm. Plus S1, S2. LUNGS: Decreased breath sounds bilaterally based on supine exam. ABDOMEN: Soft, nontender. No rebound. No guarding. No peritoneal sign. EXTREMITIES: No cyanosis. No clubbing. No edema. LABORATORY DATA: White count is 4.9, hemoglobin 7.3, hematocrit 23, platelet count is 214,000. Chem-7, sodium is 143, potassium 5.9, BUN is 90, creatinine is 2.7. Albumin is low at 2.7. ASSESSMENT AND PLAN: 1. Iron-deficiency anemia. 2. Possible cirrhosis. 3. Hypoalbuminemia. 4. Obesity. 5. Chronic renal disease/acute renal failure. 6. Hypertension. 7. Diabetes. 8. Hypothyroidism. PLAN: I left a message for the family to see if the patient ever had endoscopy and colonoscopy. Reviewing the chart showed on last admission in October, the patient's hemoglobin at the time of discharge was 8.3 and now is down to 7.3. Plan to send stool for OB. Transfuse to keep hemoglobin above 7. Follow on iron panel. Start the patient on IV iron given the patient was iron deficient on last admission. We will plan to do endoscopy and colonoscopy when the patient is more stable renal-platt and also when is cleared by Cardiology. In terms of cirrhosis, this is based on the CT scan results from the last admission. The patient has also evidence of ascites and hypoalbuminemia, which is close with cirrhosis. Our plan will be to order an abdominal ultrasound, hepatitis panel, and consider paracentesis if needed. We will follow on daily basis and make further recommendation as we go along. I want to thank, Dr. Dyllan King, for this kind referral. Francois Gunn M.D. DR: BRUNO JOB#: [id number] CC: Dyllan King D.O.
--- NOTE | 2020-01-12 18:30 | Consultation ---
Consult Note Consult Note Cardiology for Dr. Zelaya Full consult dictated. [id number] Lesvia Dumont MD Jan 12, 2020 18:30
[2020-01-12 20:00] VITALS: BP 132/72
--- NOTE | 2020-01-12 20:15 | NUR ---
NURSE NOTES: Pt received from BHAVIN Perez. Pt is alert x3-4, oriented to self and hospital, able to make needs known but has confusion at times and perseverates about wanting family to come. MD notified that hemoglobin went from 7.7 to 7.3 today. Received an order by Dr Cool to transfuse 1 unit PRBCs. Will administer and monitor closely. Will continue to monitor pt.
--- NOTE | 2020-01-12 20:15 | Consultation ---
DATE OF CONSULTATION: 01/12/2020 CARDIOLOGY CONSULTATION CONSULTING PHYSICIAN: Lesvia Dumont M.D. REASON FOR CONSULTATION: Bradycardia and history of coronary artery disease. HISTORY OF PRESENT ILLNESS: History is obtained through a computer security coordinator as the patient speaks Lithuanian. The patient is a 69-year-old woman with diabetes, hypertension, coronary artery disease, recent coronary artery bypass graft surgery, and congestive heart failure. She was brought to the emergency room by EMS after having suffered a syncopal episode at home. Her Accu-Chek glucose was in the 20s. She was given intravenous fluids and D5 with improvement in her mental status and blood sugar. She was admitted for further treatment. Her heart rates have been noted to be in the 50s and Cardiology evaluation was requested. She has an IVCD and left bundle-branch block pattern, which is uncertain if new or old. Her records from her recent coronary artery bypass graft surgery done earlier this month at [facility], are not yet available. MEDICATIONS: On admission per chart, insulin, albuterol, amlodipine, atorvastatin, benazepril, betamethasone eyedrops, Colace, gabapentin, levothyroxine, metformin, Protonix, and tramadol. ALLERGIES: No known drug allergies. PAST MEDICAL HISTORY: As noted above. SOCIAL HISTORY: The patient is a nonsmoker. She has no history of alcohol abuse. PHYSICAL EXAMINATION: VITAL SIGNS: Blood pressure is 132/64, pulse 70 and regular, respiration 19, afebrile, and oxygen saturation 96% on room air. GENERAL: Alert, obese female, in no acute distress. HEENT: Normocephalic and atraumatic. Pupils are equal, round, and reactive to light. Sclerae anicteric. Oral mucosa are moist. NECK: Supple. There is no jugular venous distention. No thyromegaly or carotid bruits. LUNGS: Occasional rhonchi. Decreased breath sounds at bases, right greater than left. HEART: Regular S1 and S2 with a 2/6 systolic ejection murmur along the left sternal border. CHEST: Healing sternotomy site. ABDOMEN: Obese, soft, nontender. No palpable mass. EXTREMITIES: 2+ pitting edema of the feet to ankles bilaterally. LABORATORY AND DIAGNOSTIC DATA: Hemoglobin 7.3, hematocrit 23, and white blood count 4900. Potassium 5.9, sodium 143, chloride 110, bicarbonate 19, BUN 90, creatinine 2.7, glucose 96. Troponin 0.047. ProBNP 5756. Chest x-ray shows cardiomegaly, elevated right hemidiaphragm, likely right pleural effusion and interstitial edema. Venous duplex of the legs showed no DVT. EKG on admission showed wide-complex rhythm regular at 51 beats per minute without clear visible P-waves, possible accelerated idioventricular rhythm. Current telemetry shows normal sinus rhythm. Echo done today, preliminary report shows normal left ventricular systolic function and wall motion, EF 50%, mild mitral and moderate tricuspid regurgitation, and mild pulmonary hypertension with PA pressure in the 40s. ASSESSMENT AND RECOMMENDATIONS: The patient is a 69-year-old woman with diabetes, hypertension, coronary artery disease, and recent coronary artery bypass graft surgery, who was admitted following a syncopal episode, which occurred in the setting of very low glucose. Per the history, the patient's family had been giving her insulin and not checking glucoses. She was noted to be bradycardic on admission, but this has now resolved. She appears to be in ahdv-ry-edfhidgo congestive heart failure. She also has significant elevation of BUN and creatinine, uncertain if this is acute versus chronic kidney disease. She is anemic, which may be due to renal failure and is also hyperkalemic. I would favor giving Kayexalate for hyperkalemia and would favor diuresis as she appears with significant volume overload, pulmonary congestion, and peripheral edema. We will attempt to obtain records of her recent hospitalization for cardiac surgery at [facility]. Further recommendations to follow based on results of above testing and clinical course. Lesvia Dumont M.D. DR: Eddie JOB#: [id number] CC:
--- NOTE | 2020-01-12 20:45 | NUR ---
NURSE NOTES: Pt received from BHAVIN Perez. Pt is alert x2-3, oriented to self and hospital, able to make needs known but has confusion at times and perseverates about wanting family to come. MD notified that hemoglobin went from 7.7 to 7.3 today. Received an order by Dr Cool to transfuse 1 unit PRBCs. Will administer and monitor closely. Will continue to monitor pt.
[2020-01-12] MEDS ORDERED: D5NS 1000ml IV ONE (20:51)
[2020-01-12] MEDS ORDERED: Iron Sucrose 100 MG in NS 55 ML IV SCH (21:00)
--- NOTE | 2020-01-12 21:07 | NUR ---
HAND-OFF: Report given to Shannan/BHAVIN, pt in stable condition.
[2020-01-12] MEDS: Atorvastatin 80mg tab ORAL SCH (22:58)
[2020-01-13] VITALS: BP 144/62
[2020-01-13 04:00] VITALS: BP 143/75
[2020-01-13] MEDS: NovoLOG Insulin Flexpen SUBQ SCH ×4 (06:30→21:04)
--- NOTE | 2020-01-13 06:45 | NUR ---
NURSE NOTES: Blood (1 unit PRBCs- 250 ml) transfused, no adverse reaction, vital signs stable post transfusion.
--- NOTE | 2020-01-13 07:13 | NUR ---
HAND-OFF: Report given to BHAVIN Perez.
--- NOTE | 2020-01-13 07:14 | NUR ---
HAND-OFF: Report given to BHAVIN Perez. endorsed that results of bottles of blood cultures- both gram positive cocci in clusters
[2020-01-13 07:16] LABS: BASOPHILS % (AUTO) 1.4 % (0.0-2.0); EOSINOPHILS % (AUTO) 0.2 % (0.0-3.0); HEMATOCRIT 25.3 % (37.0-47.0); LYMPHOCYTES % (AUTO) 22.2 % (20.0-45.0); MEAN CORPUSCULAR VOLUME 85 FL (80-99); MONOCYTES % (AUTO) 9.9 % (1.0-10.0); NEUTROPHILS % (AUTO) 66.3 % (45.0-75.0); PLATELET COUNT 240 K/UL (150-450); RED CELL DISTRIBUTION WIDTH 18.4 % (11.6-14.8); WHITE BLOOD COUNT 5.9 K/UL (4.8-10.8)
[2020-01-13 07:59] LABS: AMMONIA 51 umol/L (11-32)
[2020-01-13 08:00] VITALS: BP 145/90
--- NOTE | 2020-01-13 08:01 | General Progress Note ---
Assessment/Plan Assessment/Plan: 1. Iron-deficiency anemia. 2. Possible cirrhosis. 3. Hypoalbuminemia. 4. Obesity. 5. Chronic renal disease/acute renal failure. 6. Hypertension. 7. Diabetes. 8. Hypothyroidism. s/p one unit PRBC fu stool ob GI procedures pending if stool ob positive and if cleared by cardiology ABS us reviewed most likely has NAFLD fu hepatitis panel Subjective ROS Limited/Unobtainable: Yes Allergies: Coded Allergies: No Known Allergies (Unverified , 10/10/19) Objective Last 24 Hour Vital Signs Date Time Temp Pulse Resp B/P (MAP) Pulse Ox O2 Delivery O2 Flow Rate FiO2 01/13/20 06:58 Room Air 01/13/20 04:22 Room Air 01/13/20 04:00 74 01/13/20 04:00 97.5 74 28 143/75 (97) 100 01/13/20 03:52 74 20 100 Room Air 21 01/13/20 03:42 71 22 100 Nasal Cannula 3.0 32 01/13/20 00:00 75 01/13/20 00:00 97.0 76 28 144/62 (89) 97 01/13/20 00:00 Room Air 01/12/20 21:00 Room Air 01/12/20 20:06 71 18 96 Room Air 21 01/12/20 20:00 71 01/12/20 20:00 98.1 72 24 132/72 (92) 94 01/12/20 16:00 69 01/12/20 16:00 98.1 80 18 129/84 (99) 96 01/12/20 12:00 71 01/12/20 12:00 Room Air 01/12/20 12:00 97.3 68 19 127/60 (82) 95 01/12/20 10:47 Room Air 01/12/20 09:51 70 132/64 01/12/20 09:00 Room Air 01/12/20 08:13 96.6 70 19 132/64 (86) 96 01/12/20 08:00 76 Intake and Output 01/12/20 01/13/20 19:00 07:00 Intake Total 140 ml Output Total 1700 ml Balance -1560 ml Intake Oral 140 ml Output Urine Total 1700 ml # Voids 3 # Bowel Movements 12 3 Laboratory Tests 01/13/20 01:00: Stool Occult Blood [Pending] 01/13/20 04:10: Stool Occult Blood [Pending] 01/13/20 06:25: White Blood Count 5.9, Red Blood Count 3.00L, Hemoglobin 8.0L, Hematocrit 25.3L , Mean Corpuscular Volume 85, Mean Corpuscular Hemoglobin 26.8L, Mean Corpuscular Hemoglobin Concent 31.6L, Red Cell Distribution Width 18.4H, Platelet Count 240, Mean Platelet Volume 6.4L, Neutrophils (%) (Auto) 66.3, Lymphocytes (%) (Auto) 22.2, Monocytes (%) (Auto) 9.9, Eosinophils (%) (Auto) 0.2, Basophils (%) (Auto) 1.4, Sodium Level [Pending], Potassium Level [Pending] , Chloride Level [Pending], Carbon Dioxide Level [Pending], Blood Urea Nitrogen [Pending], Creatinine [Pending], Estimat Glomerular Filtration Rate [Pending], Glucose Level [Pending], Calcium Level [Pending], Phosphorus Level [Pending], Magnesium Level [Pending], Total Bilirubin [Pending], Aspartate Amino Transf ( AST/SGOT) [Pending], Alanine Aminotransferase (ALT/SGPT) [Pending], Alkaline Phosphatase [Pending], Ammonia [Pending], C-Reactive Protein, Quantitative [ Pending], Pro-B-Type Natriuretic Peptide [Pending], Total Protein [Pending], Albumin [Pending], Globulin [Pending], Hepatitis A IgM Antibody [Pending], Hepatitis B Surface Antigen [Pending], Hepatitis B Core IgM Antibody [Pending], Hepatitis C Antibody [Pending] Height (Feet): 5 Height (Inches): 2.00 Weight (Pounds): 204 General Appearance: alert EENT: normal ENT inspection Neck: supple Cardiovascular: normal rate Respiratory/Chest: decreased breath sounds Abdomen: normal bowel sounds, non tender, soft Extremities: non-tender Francois Gunn MD Jan 13, 2020 08:01
[2020-01-13 08:03] LABS: ALANINE AMINOTRANSFERASE 37 U/L (12-78); ALBUMIN 2.9 G/DL (3.4-5.0); ALBUMIN/GLOBULIN RATIO 0.8 (1.0-2.7); ALKALINE PHOSPHATASE 282 U/L (46-116); ANION GAP 17 mmol/L (5-15); ASPARTATE AMINO TRANSFERASE 32 U/L (15-37); BILIRUBIN,TOTAL 0.6 MG/DL (0.2-1.0); BLOOD UREA NITROGEN 85 mg/dL (7-18); CALCIUM 8.7 MG/DL (8.5-10.1); CARBON DIOXIDE 19 MMOL/L (21-32); CHLORIDE 109 MMOL/L (98-107); CREATININE 2.5 MG/DL (0.55-1.30); POTASSIUM 3.9 MMOL/L (3.5-5.1); SODIUM 144 MMOL/L (136-145)
--- NOTE | 2020-01-13 08:12 | NUR ---
NURSE NOTES: pt in room resting, food is at bedside. AOx2 but confused. Continue monitoring tech pt not complaining of chest pain, she does have SOB. Bed in lowest position, and locked, call light within reach, rails up x2 for safety. Will continue to monitor pt.
[2020-01-13 08:28] LABS: PHOSPHORUS 5.2 MG/DL (2.5-4.9)
--- NOTE | 2020-01-13 08:43 | Diagnostic Imaging Report ---
EXAM: XR Chest, 1 View CLINICAL HISTORY: SOB TECHNIQUE: Frontal view of the chest. COMPARISON: 01/11/20 FINDINGS: Lungs: Asymmetric right basilar infiltrate indeterminate between atelectasis and pneumonia. Unchanged perihilar and lower lobe pulmonary edema. Pleural space: Worsening moderate right pleural effusion. No pneumothorax. Heart: Mild cardiomegaly Mediastinum: Unremarkable. Bones/joints: Unremarkable. IMPRESSION: There is unchanged mild pulmonary edema with worsening moderate right pleural effusion. There is an asymmetric right basilar infiltrate indeterminate between atelectasis and pneumonia.
[2020-01-13] MEDS: Heparin 5000 units/ml inj SUBQ SCH (09:00)
--- NOTE | 2020-01-13 09:16 | General Progress Note ---
Assessment/Plan Problem List: (1) Renal failure (ARF), acute on chronic ICD Codes: N17.9 - Acute kidney failure, unspecified; N18.9 - Chronic kidney disease, unspecified SNOMED: 694962066 Qualifiers: Qualified Codes: N17.9 - Acute kidney failure, unspecified; N18.9 - Chronic kidney disease, unspecified (2) History of hypertension ICD Codes: Z86.79 - Personal history of other diseases of the circulatory system SNOMED: 843442646 (3) Diabetes mellitus ICD Codes: E11.9 - Type 2 diabetes mellitus without complications SNOMED: 11780972 (4) Pleural effusion ICD Codes: J90 - Pleural effusion, not elsewhere classified SNOMED: 95603178 (5) Anemia ICD Codes: D64.9 - Anemia, unspecified SNOMED: 252338986 Qualifiers: Qualified Codes: D64.9 - Anemia, unspecified (6) Hypoglycemia ICD Codes: E16.2 - Hypoglycemia, unspecified SNOMED: 876646308 Status: unchanged Assessment/Plan: pt deit eval bp bs control cbc bmp am Subjective Constitutional: Reports: weakness Allergies: Coded Allergies: No Known Allergies (Unverified , 10/10/19) All Systems: reviewed and negative except above Subjective o2nc calm in bed Objective Last 24 Hour Vital Signs Date Time Temp Pulse Resp B/P (MAP) Pulse Ox O2 Delivery O2 Flow Rate FiO2 01/13/20 08:00 98.1 73 18 145/90 (108) 97 01/13/20 07:20 72 20 95 Room Air 21 01/13/20 06:58 Room Air 01/13/20 04:22 Room Air 01/13/20 04:00 74 01/13/20 04:00 97.5 74 28 143/75 (97) 100 01/13/20 03:52 74 20 100 Room Air 21 01/13/20 03:42 71 22 100 Nasal Cannula 3.0 32 01/13/20 00:00 75 01/13/20 00:00 97.0 76 28 144/62 (89) 97 01/13/20 00:00 Room Air 01/12/20 21:00 Room Air 01/12/20 20:06 71 18 96 Room Air 21 01/12/20 20:00 71 01/12/20 20:00 98.1 72 24 132/72 (92) 94 01/12/20 16:00 69 01/12/20 16:00 98.1 80 18 129/84 (99) 96 01/12/20 12:00 71 01/12/20 12:00 Room Air 01/12/20 12:00 97.3 68 19 127/60 (82) 95 01/12/20 10:47 Room Air 01/12/20 09:51 70 132/64 Intake and Output 01/12/20 01/13/20 19:00 07:00 Intake Total 140 ml Output Total 1700 ml Balance -1560 ml Intake Oral 140 ml Output Urine Total 1700 ml # Voids 3 # Bowel Movements 12 3 Laboratory Tests 01/13/20 01:00: Stool Occult Blood [Pending] 01/13/20 04:10: Stool Occult Blood [Pending] 01/13/20 06:25: White Blood Count 5.9, Red Blood Count 3.00L, Hemoglobin 8.0L, Hematocrit 25.3L , Mean Corpuscular Volume 85, Mean Corpuscular Hemoglobin 26.8L, Mean Corpuscular Hemoglobin Concent 31.6L, Red Cell Distribution Width 18.4H, Platelet Count 240, Mean Platelet Volume 6.4L, Neutrophils (%) (Auto) 66.3, Lymphocytes (%) (Auto) 22.2, Monocytes (%) (Auto) 9.9, Eosinophils (%) (Auto) 0.2, Basophils (%) (Auto) 1.4, Sodium Level 144, Potassium Level 3.9, Chloride Level 109H, Carbon Dioxide Level 19L, Anion Gap 17H, Blood Urea Nitrogen 85H, Creatinine 2.5H, Estimat Glomerular Filtration Rate 19.1, Glucose Level 153H, Calcium Level 8.7, Phosphorus Level 5.2H, Magnesium Level 2.6H, Total Bilirubin 0.6, Aspartate Amino Transf (AST/SGOT) 32, Alanine Aminotransferase (ALT/SGPT) 37, Alkaline Phosphatase 282H, Ammonia 51H, C-Reactive Protein, Quantitative 6.3H, Pro-B-Type Natriuretic Peptide 8614H, Total Protein 6.5, Albumin 2.9L, Globulin 3.6, Albumin/Globulin Ratio 0.8L, Hepatitis A IgM Antibody [Pending], Hepatitis B Surface Antigen [Pending], Hepatitis B Core IgM Antibody [Pending], Hepatitis C Antibody [Pending] Height (Feet): 5 Height (Inches): 2.00 Weight (Pounds): 204 General Appearance: lethargic EENT: normal ENT inspection Neck: normal alignment Cardiovascular: normal peripheral pulses, normal rate, regular rhythm Respiratory/Chest: chest wall non-tender, lungs clear, normal breath sounds Abdomen: normal bowel sounds, non tender, soft Extremities: normal inspection Edema: no edema noted Arm (L), no edema noted Arm (R), no edema noted Leg (L), no edema noted Leg (R), no edema noted Pedal (L), no edema noted Pedal (R), no edema noted Generalized Neurologic: motor weakness Skin: normal pigmentation, warm/dry Dyllan King DO Jan 13, 2020 09:16
[2020-01-13] MEDS: D5NS 1,000 ML IV SCH (09:30)
[2020-01-13] MEDS: Docusate 100mg cap ORAL SCH ×3 (09:34→18:07)
[2020-01-13] MEDS ORDERED: Vancomycin 1.5gm/NS Premix q24h IVPB SCH (11:00)
--- NOTE | 2020-01-13 11:05 | Pulmonology Progress Note ---
Assessment/Plan Assessment/Plan ASSESSMENT Hypoglycemia Syncopal episode due to hypoglycemia Bacteremia with GPC Possible PNA CHF Fluid overload R Pleural effusion Acute on chronic renal failure Anemia, s/p 1 u PRBC Hyperkalemia -resolved Morbid obesity Hypertension Diabetes mellitus Ascites PLAN OF CARE tele O2 HHN PRN fup CXR this am with asymmetrical R basilar infiltrate, atelectasis vs PNA, moderate R pleural effusion start on cefepime and vanco per Rx fup with SCX BCX + GPC ECHO with EF 50% and RVSP of 43- mild pulm HTN Venous Duplex BLE negative, dc Heparin( given anemia) and start SCD dc IVF given fluid overload cardio follows s/p 1 dose of Lasix 01/11 pro BNP trending up, clinically with sx if fluid overload, will give additional dose of Lasix; fup with CXR and pro BNP in am further recs as per cardio BS better monitor BS, Hgb A1c -7.[address] anemia work-up c/w anemia of chronic disease, IV iron as ordered by nephro monitor H&H with goal to keep hemoglobin above 7 s/p 1 u PRBC 01/11 Hgb up to 8 monitor renal parameters, lytes, correct electrolytes as needed, avoid nephrotoxic's renal US with multiple right renal anechoic cysts, largest 2 cm. No hydronephrosis. urine studies as per nephro Kayexalate for hyperkalemia GI prophylaxis supportive care case discussed and evaluated by supervising physician Subjective Allergies: Coded Allergies: No Known Allergies (Unverified , 10/10/19) Subjective afebrile, no leukocytosis, appeared in mild resp distress low grade fever at night 100.8 as per nurse, currently afebrile, no leukocytosis BCX + GPC, CXR with possible PNA Objective Last 24 Hour Vital Signs Date Time Temp Pulse Resp B/P (MAP) Pulse Ox O2 Delivery O2 Flow Rate FiO2 01/13/20 09:34 73 145/90 01/13/20 08:00 98.1 73 18 145/90 (108) 97 01/13/20 07:20 72 20 95 Room Air 21 01/13/20 06:58 Room Air 01/13/20 04:22 Room Air 01/13/20 04:00 74 01/13/20 04:00 97.5 74 28 143/75 (97) 100 01/13/20 03:52 74 20 100 Room Air 21 01/13/20 03:42 71 22 100 Nasal Cannula 3.0 32 01/13/20 00:00 75 01/13/20 00:00 97.0 76 28 144/62 (89) 97 01/13/20 00:00 Room Air 01/12/20 21:00 Room Air 01/12/20 20:06 71 18 96 Room Air 21 01/12/20 20:00 71 01/12/20 20:00 98.1 72 24 132/72 (92) 94 01/12/20 16:00 69 01/12/20 16:00 98.1 80 18 129/84 (99) 96 01/12/20 12:00 71 01/12/20 12:00 Room Air 01/12/20 12:00 97.3 68 19 127/60 (82) 95 Intake and Output 01/12/20 01/13/20 19:00 07:00 Intake Total 140 ml Output Total 1700 ml Balance -1560 ml Intake Oral 140 ml Output Urine Total 1700 ml # Voids 3 # Bowel Movements 12 3 Objective General Appearance: in mild distress, morbidly obese , Indonesian speaking female Lines, tubes and drains: peripheral HEENT: normocephalic, atraumatic, anicteric, mucous membranes moist, PERRL Neck: non-tender, supple Respiratory/Chest: no respiratory distress, no accessory muscle use, coarse breath sounds Cardiovascular/Chest: normal rate, regular rhythm Abdomen: normal bowel sounds, non tender, soft , obese Neurologic: alert, oriented x 3, responsive Musculoskeletal: normal muscle bulk Microbiology Date/Time Source Procedure Growth Status 01/11/20 15:15 Blood Blood Culture - Preliminary Resulted 01/11/20 15:00 Blood Blood Culture - Preliminary Gram Positive Cocci Resulted Laboratory Tests 01/13/20 01:00: Stool Occult Blood [Pending] 01/13/20 04:10: Stool Occult Blood [Pending] 01/13/20 06:25: White Blood Count 5.9, Red Blood Count 3.00L, Hemoglobin 8.0L, Hematocrit 25.3L , Mean Corpuscular Volume 85, Mean Corpuscular Hemoglobin 26.8L, Mean Corpuscular Hemoglobin Concent 31.6L, Red Cell Distribution Width 18.4H, Platelet Count 240, Mean Platelet Volume 6.4L, Neutrophils (%) (Auto) 66.3, Lymphocytes (%) (Auto) 22.2, Monocytes (%) (Auto) 9.9, Eosinophils (%) (Auto) 0.2, Basophils (%) (Auto) 1.4, Sodium Level 144, Potassium Level 3.9, Chloride Level 109H, Carbon Dioxide Level 19L, Anion Gap 17H, Blood Urea Nitrogen 85H, Creatinine 2.5H, Estimat Glomerular Filtration Rate 19.1, Glucose Level 153H, Calcium Level 8.7, Phosphorus Level 5.2H, Magnesium Level 2.6H, Total Bilirubin 0.6, Aspartate Amino Transf (AST/SGOT) 32, Alanine Aminotransferase (ALT/SGPT) 37, Alkaline Phosphatase 282H, Ammonia 51H, C-Reactive Protein, Quantitative 6.3H, Pro-B-Type Natriuretic Peptide 8614H, Total Protein 6.5, Albumin 2.9L, Globulin 3.6, Albumin/Globulin Ratio 0.8L, Hepatitis A IgM Antibody [Pending], Hepatitis B Surface Antigen [Pending], Hepatitis B Core IgM Antibody [Pending], Hepatitis C Antibody [Pending] Current Medications Medications (Trade) Dose Ordered Sig/[place] Route PRN Reason Start Time Stop Time Status Last Admin Dose Admin Acetaminophen (Tylenol) 650 mg Q4H PRN ORAL fever 01/11/20 18:00 02/10/20 17:59 Albuterol/ Ipratropium (Albuterol/ Ipratropium) 3 ml Q6H PRN HHN dyspnea 01/11/20 18:00 01/16/20 17:59 01/13/20 03:42 Allopurinol (allopurinoL) 300 mg DAILY ORAL 01/12/20 10:15 02/11/20 10:14 01/13/20 09:34 Amlodipine Besylate (Norvasc) 5 mg DAILY ORAL 01/12/20 09:00 02/11/20 08:59 01/13/20 09:34 Atorvastatin Calcium (Lipitor) 80 mg QHS ORAL 01/11/20 21:00 04/10/20 20:59 01/12/20 22:58 Clonidine HCl (Catapres Tab) 0.1 mg Q4H PRN ORAL For High Blood Pressure 01/11/20 18:00 04/10/20 17:59 Dextrose (Dextrose 50%) 25 ml Q30M PRN IV Hypoglycemia 01/11/20 18:00 04/10/20 17:59 Dextrose (Dextrose 50%) 50 ml Q30M PRN IV Hypoglycemia 01/11/20 18:00 04/10/20 17:59 Dextrose/Sodium Chloride 1,000 ml @ 75 mls/hr [id number] IV 01/11/20 17:30 02/10/20 17:29 01/12/20 20:10 Docusate Sodium (Colace) 100 mg TID ORAL 01/11/20 18:00 02/10/20 17:59 01/13/20 09:34 Epoetin Shlomo (Epoetin Shlomo-EPBX(NON ESRD)) 10,000 unit TUE-TUE-TUE SUBQ 01/14/20 21:00 04/13/20 20:59 Heparin Sodium (Porcine) (Heparin 5000 units/ml) 5,000 units EVERY 12 HOURS SUBQ 01/11/20 21:00 02/25/20 20:59 01/12/20 09:54 Insulin Aspart (NovoLOG) BEFORE MEALS AND HS SUBQ 01/11/20 21:00 04/10/20 20:59 Iron Sucrose 100 mg/Sodium Chloride 60 ml @ 240 mls/hr BEDTIME IV 01/13/20 21:00 01/17/20 21:14 Levothyroxine Sodium (Synthroid) 75 mcg ACBREAKFAST ORAL 01/12/20 06:30 02/11/20 06:29 01/13/20 06:30 Ondansetron HCl (Zofran) 4 mg Q6H PRN IVP Nausea & Vomiting 01/11/20 18:00 02/10/20 17:59 Pantoprazole (Protonix) 40 mg EVERY 12 HOURS ORAL 01/11/20 21:00 02/10/20 20:59 01/13/20 09:34 Polyethylene Glycol (Miralax) 17 gm HSPRN PRN ORAL Constipation 01/11/20 21:00 02/10/20 20:59 Vancomycin HCl (Vanco rx to dose) 1 ea DAILY PRN MISC Per rx protocol 01/13/20 09:15 02/12/20 09:14 Vancomycin/Sodium Chloride 275 ml @ 137.5 mls/ hr ONCE IVPB 01/13/20 11:00 01/13/20 13:00 Zolpidem Tartrate (Ambien) 5 mg HSPRN PRN ORAL Insomnia 01/11/20 21:00 01/18/20 20:59 Jenna García NP Jan 13, 2020 11:05
--- NOTE | 2020-01-13 11:09 | Nephrology Progress Note ---
Assessment/Plan Problem List: (1) Renal failure (ARF), acute on chronic (2) Diabetes mellitus (3) Hypoglycemia (4) Hyperkalemia (5) Diabetic nephropathy Assessment Renal failure (ARF), acute on chronic Hyperkalemia Hypoglycemia Anemia Pleural effusion Morbid obesity Plan Chan catheter Stop IV fluid and start diuretics Add hydralazine for afterload reduction Monitor 24-hour urine collection for total protein 2D echocardiogram ejection fraction is reported to 50% Kidney ultrasound noted Anemia work-up leading to low iron intravenous iron ordered As needed Kayexalate for high potassium Urine studies Keep blood pressure and blood sugar in check Monitor renal parameters Objective Objective Last 24 Hour Vital Signs Date Time Temp Pulse Resp B/P (MAP) Pulse Ox O2 Delivery O2 Flow Rate FiO2 01/13/20 09:34 73 145/90 01/13/20 08:00 98.1 73 18 145/90 (108) 97 01/13/20 07:20 72 20 95 Room Air 21 01/13/20 06:58 Room Air 01/13/20 04:22 Room Air 01/13/20 04:00 74 01/13/20 04:00 97.5 74 28 143/75 (97) 100 01/13/20 03:52 74 20 100 Room Air 21 01/13/20 03:42 71 22 100 Nasal Cannula 3.0 32 01/13/20 00:00 75 01/13/20 00:00 97.0 76 28 144/62 (89) 97 01/13/20 00:00 Room Air 01/12/20 21:00 Room Air 01/12/20 20:06 71 18 96 Room Air 21 01/12/20 20:00 71 01/12/20 20:00 98.1 72 24 132/72 (92) 94 01/12/20 16:00 69 01/12/20 16:00 98.1 80 18 129/84 (99) 96 01/12/20 12:00 71 01/12/20 12:00 Room Air 01/12/20 12:00 97.3 68 19 127/60 (82) 95 Intake and Output 01/12/20 01/13/20 19:00 07:00 Intake Total 140 ml Output Total 1700 ml Balance -1560 ml Intake Oral 140 ml Output Urine Total 1700 ml # Voids 3 # Bowel Movements 12 3 Laboratory Tests 01/13/20 01:00: Stool Occult Blood [Pending] 01/13/20 04:10: Stool Occult Blood [Pending] 01/13/20 06:25: White Blood Count 5.9, Red Blood Count 3.00L, Hemoglobin 8.0L, Hematocrit 25.3L , Mean Corpuscular Volume 85, Mean Corpuscular Hemoglobin 26.8L, Mean Corpuscular Hemoglobin Concent 31.6L, Red Cell Distribution Width 18.4H, Platelet Count 240, Mean Platelet Volume 6.4L, Neutrophils (%) (Auto) 66.3, Lymphocytes (%) (Auto) 22.2, Monocytes (%) (Auto) 9.9, Eosinophils (%) (Auto) 0.2, Basophils (%) (Auto) 1.4, Sodium Level 144, Potassium Level 3.9, Chloride Level 109H, Carbon Dioxide Level 19L, Anion Gap 17H, Blood Urea Nitrogen 85H, Creatinine 2.5H, Estimat Glomerular Filtration Rate 19.1, Glucose Level 153H, Calcium Level 8.7, Phosphorus Level 5.2H, Magnesium Level 2.6H, Total Bilirubin 0.6, Aspartate Amino Transf (AST/SGOT) 32, Alanine Aminotransferase (ALT/SGPT) 37, Alkaline Phosphatase 282H, Ammonia 51H, C-Reactive Protein, Quantitative 6.3H, Pro-B-Type Natriuretic Peptide 8614H, Total Protein 6.5, Albumin 2.9L, Globulin 3.6, Albumin/Globulin Ratio 0.8L, Hepatitis A IgM Antibody [Pending], Hepatitis B Surface Antigen [Pending], Hepatitis B Core IgM Antibody [Pending], Hepatitis C Antibody [Pending] Height (Feet): 5 Height (Inches): 2.00 Weight (Pounds): 204 Jay Severino MD Jan 13, 2020 11:09
--- NOTE | 2020-01-13 11:29 | CDS Physician Query ---
Clarification is required for compliance, coding accuracy, and to reflect severity of illness for this patient Dear Dr. King Date: 01/13/20 CDS Name: Kylah Gonzalez "CHF" documented in the medical records On admission: BNP levels: 8614, 5756 Echo: EF: 50% Rx: IV Furosemide CXR on admission: Pleural effusion, Heart is enlarged Please Clarify the acuity and type of CHF: Acuity [ ] Acute [ ] Chronic [ ] Acute on Chronic Type [ ] Systolic [ ] Diastolic [ ] Systolic & Diastolic (Combined) Present on Admission: [ ] Yes [ ] No [ ] Clinically Undetermined Physician signature Date Please also document in your Progress Notes and/or Discharge Summary and indicate if the condition was present on admission. LEILA
[2020-01-13] MEDS: HydrALAZINE 25mg tab ORAL SCH ×3 (11:38→23:26)
--- NOTE | 2020-01-13 11:39 | CDS Physician Query ---
Clarification is required for compliance, coding accuracy, and to reflect severity of illness for this patient Dear Dr. King Date: 01/13/20 A possible diagnosis of Pneumonia was made in the medical record on 01/13/20 in pulmonary progress note. Upon review, it is difficult to determine whether this diagnosis has been ruled in, ruled out,or is still being worked up. Please indicate below the status of the aforementioned diagnosis. CXR on admission: Right basilar pleural fluid and possible consolidation Repeat chest Xray (01/12): Right basilar infiltrate indeterminate between atelectasis and pneumonia. Rx: Vancomycin, Cefepime [ ] Treated and resolve [ ] Presumed and treated [ ] Currently under treatment [ ] Still being worked-up [ ] Ruled out Present on Admission: [ ] Yes [ ] No [ ] Clinically Undetermined Physician signature Date Please also document in your Progress Notes and/or Discharge Summary and indicate if the condition was present on admission MTDD
[2020-01-13 11:40] VITALS: BP 134/76
[2020-01-13] MEDS: Cefepime HCl 1 GM in D5W 55 ML IVPB SCH (13:08)
--- NOTE | 2020-01-13 14:06 | NUR ---
P.T Note: P.T evaluation completed and tx initiated. Pt received in semi-santana position, appeared restless. Pt is Hong [place]er speaking , [place]er speaking RN Ana present during P.T evaluation for translation. Pt is periodically confused however Oriented to self , time , place and situation. Pt had no c/o chest pain, nor dizziness but c/o feeling generally weak and fatigued. Pt currently requires verbal cues and extended time to complete supine to/from sitting and sitting to/from standing using the FWW. Pt was able to ambulate and tolerate distance of 25 ft with FWW and MIN A X 1. Overall poor activity tolerance. Skilled P.T service is warranted to improve her strength and endurance to increase her ADL/mobility independence and safety. Recommend Home P.T to follow up at [place]. Pt is cleared for OOB activities with nursing with FWW.
[2020-01-13 16:30] VITALS: BP 133/59
--- NOTE | 2020-01-13 17:06 | Cardiology Progress Note ---
Assessment/Plan Problem List: (1) Bacteremia (2) CAD (coronary artery disease) (3) Renal failure (ARF), acute on chronic (4) Hyperkalemia (5) History of hypertension (6) Left bundle branch block (LBBB) Status: stable, not improved Status Narrative Mrs Elias is lethargic today. She has had reasonable response to diuretics, with i/os - 1560 yesterday. ECHO shows normal LV function ( preliminary). ? diastolic dysfunction. She has 1 + blood culture for gm + cocci - ? contaminant vs bacteremia. Repeat cultures are pending. Assessment/Plan Will check ABG - r/o co2 retention or hypoxia. Continue diuresis for diastolic HF. Workup , rx for possible gm + bacteremia per ID. Renal function sl improved w/ diuresis. Management per Nephrology. Subjective ROS Limited/Unobtainable: Yes Subjective Cardiology for Dr. Zelaya Pt lethargic. Remains orthopneic. Events noted Objective Last 24 Hour Vital Signs Date Time Temp Pulse Resp B/P (MAP) Pulse Ox O2 Delivery O2 Flow Rate FiO2 01/13/20 12:00 74 01/13/20 11:40 98.3 74 18 134/76 (95) 96 01/13/20 11:38 145/90 01/13/20 09:34 73 145/90 01/13/20 09:00 Room Air 01/13/20 08:00 98.1 73 18 145/90 (108) 97 01/13/20 08:00 72 01/13/20 07:20 72 20 95 Room Air 21 01/13/20 06:58 Room Air 01/13/20 04:22 Room Air 01/13/20 04:00 74 01/13/20 04:00 97.5 74 28 143/75 (97) 100 01/13/20 03:52 74 20 100 Room Air 21 01/13/20 03:42 71 22 100 Nasal Cannula 3.0 32 01/13/20 00:00 75 01/13/20 00:00 97.0 76 28 144/62 (89) 97 01/13/20 00:00 Room Air 01/12/20 21:00 Room Air 01/12/20 20:06 71 18 96 Room Air 21 01/12/20 20:00 71 01/12/20 20:00 98.1 72 24 132/72 (92) 94 General Appearance: WD/WN, lethargic, obese EENT: PERRL/EOMI Neck: supple, no JVD Cardiovascular: normal rate, regular rhythm, no gallop/murmur Respiratory/Chest: other - poor cooperation w/ deep inspiratory effort. dec BS at bases Abdomen: normal bowel sounds, non tender, soft Extremities: moderate edema - 2+ pitting edema of distal LEs bilat Intake and Output 01/12/20 01/13/20 19:00 07:00 Intake Total 140 ml Output Total 1700 ml Balance -1560 ml Intake Oral 140 ml Output Urine Total 1700 ml # Voids 3 # Bowel Movements 12 3 Laboratory Tests Test 01/13/20 01:00 01/13/20 04:10 01/13/20 06:25 Stool Occult Blood Positive (NEGATIVE) Positive (NEGATIVE) White Blood Count 5.9 K/UL (4.8-10.8) Red Blood Count 3.00 M/UL (4.20-5.40) L Hemoglobin 8.0 G/DL (12.0-16.0) L Hematocrit 25.3 % (37.0-47.0) L Mean Corpuscular Volume 85 FL (80-99) Mean Corpuscular Hemoglobin 26.8 PG (27.0-31.0) L Mean Corpuscular Hemoglobin Concent 31.6 G/DL (32.0-36.0) L Red Cell Distribution Width 18.4 % (11.6-14.8) H Platelet Count 240 K/UL (150-450) Mean Platelet Volume 6.4 FL (6.5-10.1) L Neutrophils (%) (Auto) 66.3 % (45.0-75.0) Lymphocytes (%) (Auto) 22.2 % (20.0-45.0) Monocytes (%) (Auto) 9.9 % (1.0-10.0) Eosinophils (%) (Auto) 0.2 % (0.0-3.0) Basophils (%) (Auto) 1.4 % (0.0-2.0) Sodium Level 144 MMOL/L (136-145) Potassium Level 3.9 MMOL/L (3.5-5.1) Chloride Level 109 MMOL/L (98-107) H Carbon Dioxide Level 19 MMOL/L (21-32) L Anion Gap 17 mmol/L (5-15) H Blood Urea Nitrogen 85 mg/dL (7-18) H Creatinine 2.5 MG/DL (0.55-1.30) H Estimat Glomerular Filtration Rate 19.1 mL/min (>60) Glucose Level 153 MG/DL (74-106) H Calcium Level 8.7 MG/DL (8.5-10.1) Phosphorus Level 5.2 MG/DL (2.5-4.9) H Magnesium Level 2.6 MG/DL (1.8-2.4) H Total Bilirubin 0.6 MG/DL (0.2-1.0) Aspartate Amino Transf (AST/SGOT) 32 U/L (15-37) Alanine Aminotransferase (ALT/SGPT) 37 U/L (12-78) Alkaline Phosphatase 282 U/L (46-116) H Ammonia 51 umol/L (11-32) H C-Reactive Protein, Quantitative 6.3 mg/dL (0.00-0.90) H Pro-B-Type Natriuretic Peptide 8614 pg/mL (0-125) H Total Protein 6.5 G/DL (6.4-8.2) Albumin 2.9 G/DL (3.4-5.0) L Globulin 3.6 g/dL Albumin/Globulin Ratio 0.8 (1.0-2.7) L Hepatitis A IgM Antibody Pending Hepatitis B Surface Antigen Pending Hepatitis B Core IgM Antibody Pending Hepatitis C Antibody Pending Microbiology Date/Time Source Procedure Growth Status 01/11/20 15:15 Blood Blood Culture - Preliminary Resulted 01/11/20 15:00 Blood Blood Culture - Preliminary Gram Positive Cocci Resulted Lesvia Dumont MD Jan 13, 2020 17:06
--- NOTE | 2020-01-13 18:30 | NUR ---
NURSE NOTES: notified doctor alexandria 24hr urine test is finished and pt would like to get obinna DEL CID because it hurts. 1850 notified Monika García and doctor Carlos about pt latest labs and positive OB stool results.
--- NOTE | 2020-01-13 19:15 | NUR ---
NURSE NOTES: Received report from BHAVIN Perez. Patient is asleep, arousable to name, lying in semi santana's; resting comfortably. A/Ox2. Denies pain at this time. No signs of acute distress noted. Checked IV site and flushed. No erythema, bleeding or infiltration noted. On yeboah catheter draining well to gravity. Bed at lowest position, brakes on, bed alarm on, siderails x2. Call light within reach. Will continue to monitor.
[2020-01-13 20:00] VITALS: BP 97/56
--- NOTE | 2020-01-13 20:00 | NUR ---
HAND-OFF: Report given to Kristine/Farzaan, pt in stable condition.
[2020-01-13] MEDS: Iron Sucrose 100 MG in NS 55 ML IV SCH (20:37)
[2020-01-13] MEDS: Atorvastatin 80mg tab ORAL SCH (20:37)
--- NOTE | 2020-01-13 20:51 | Consultation ---
History of Present Illness General Chief Complaint: Abnormal Labs Referring physician: Dr King Reason for Consultation: in hospital management Present Illness Allergies: Coded Allergies: No Known Allergies (Unverified , 10/10/19) Medication History Scheduled Albuterol Sulfate (Ventolin Hfa), 2 PUFFS INH EVERY 6 HOURS, (Reported) Amlodipine Besylate* (Amlodipine Besylate*), 5 MG ORAL DAILY, (Reported) Atorvastatin (Lipitor), 80 MG ORAL DAILY, (Reported) Atorvastatin Calcium* (Atorvastatin Calcium*), Unknown Dose ORAL BEDTIME, ( Reported) Benazepril Hcl* (Benazepril Hcl*), 40 MG ORAL DAILY, (Reported) Docusate Sodium (Docusate Sodium), 100 MG ORAL DAILY, (Reported) Gabapentin* (Gabapentin*), 300 MG ORAL DAILY, (Reported) Levothyroxine Sodium* (Synthroid*), 75 MCG ORAL DAILY, (Reported) Pantoprazole* (Pantoprazole*), 40 MG ORAL EVERY 12 HOURS, (Reported) Tramadol Hcl (Ultram*), 50 MG ORAL Q4H, (Reported) Miscellaneous Medications Acetaminophen (Mapap), 500 MG PO, (Reported) Betamet Diprop/Prop Gly (Betamethasone Dp Aug 0.05% Crm), 15 GM TP, (Reported) Insulin Aspart (Novolog), 60, (Reported) Metformin Hcl* (Metformin Hcl*), Unknown Dose ORAL, (Reported) Discontinued Medications Allopurinol* (Allopurinol*), 300 MG ORAL DAILY, (Reported) Discontinued Reason: MD discontinued med Azithromycin* (Zithromax*), 250 MG ORAL DAILY, (Reported) Discontinued Reason: MD discontinued med Furosemide* (Lasix*), 20 MG ORAL DAILY, (Reported) Discontinued Reason: Medication dose changed Furosemide* (Lasix*), 40 MG ORAL DAILY, (Reported) Discontinued Reason: MD discontinued med Hydralazine Hcl* (Hydralazine Hcl*), 10 MG ORAL EVERY 8 HOURS, (Reported) Discontinued Reason: MD discontinued med Hydrochlorothiazide* (Hydrochlorothiazide*), Unknown Dose ORAL, (Reported) Discontinued Reason: MD discontinued med Hydrochlorothiazide* (Hydrochlorothiazide*), 12.5 MG ORAL DAILY, (Reported) Discontinued Reason: MD discontinued med Isosorbide Dinitrate* (Isordil*), 30 MG ORAL TWICE A DAY, (Reported) Discontinued Reason: MD discontinued med Linaclotide (Linzess), 145 MCG PO, (Reported) Discontinued Reason: MD discontinued med Lisinopril (Lisinopril*), Unknown Dose ORAL, (Reported) Discontinued Reason: MD discontinued med Metoprolol Succinate* (Metoprolol Succinate*), 100 MG ORAL DAILY, (Reported) Discontinued Reason: MD discontinued med Nitroglycerin 0.4MG table* (Nitroglycerin*), 0.4 MG SL .Q5MIN X 3 DOSES PRN for CHEST PAIN, (Reported) Discontinued Reason: MD discontinued med Oxybutynin Chloride (Ditropan Xl), 10 MG ORAL DAILY, (Reported) Discontinued Reason: MD discontinued med Patient History Healthcare decision maker Resuscitation status Full Code Advanced Directive on File Physical Exam Last 24 Hour Vital Signs Date Time Temp Pulse Resp B/P (MAP) Pulse Ox O2 Delivery O2 Flow Rate FiO2 01/13/20 20:06 74 20 96 Room Air 21 01/13/20 18:07 133/59 01/13/20 16:30 98.2 72 18 133/59 (83) 96 01/13/20 12:00 74 01/13/20 11:40 98.3 74 18 134/76 (95) 96 01/13/20 11:38 145/90 01/13/20 09:34 73 145/90 01/13/20 09:00 Room Air 01/13/20 08:00 98.1 73 18 145/90 (108) 97 01/13/20 08:00 72 01/13/20 07:20 72 20 95 Room Air 21 01/13/20 06:58 Room Air 01/13/20 04:22 Room Air 01/13/20 04:00 74 01/13/20 04:00 97.5 74 28 143/75 (97) 100 01/13/20 03:52 74 20 100 Room Air 21 01/13/20 03:42 71 22 100 Nasal Cannula 3.0 32 01/13/20 00:00 75 01/13/20 00:00 97.0 76 28 144/62 (89) 97 01/13/20 00:00 Room Air 01/12/20 21:00 Room Air Intake and Output 01/12/20 01/13/20 19:00 07:00 Intake Total 140 ml Output Total 1700 ml Balance -1560 ml Intake Oral 140 ml Output Urine Total 1700 ml # Voids 3 # Bowel Movements 12 3 Laboratory Tests Test 01/13/20 01:00 01/13/20 04:10 01/13/20 06:25 01/13/20 17:23 Stool Occult Blood Positive (NEGATIVE) Positive (NEGATIVE) White Blood Count 5.9 K/UL (4.8-10.8) Red Blood Count 3.00 M/UL (4.20-5.40) L Hemoglobin 8.0 G/DL (12.0-16.0) L Hematocrit 25.3 % (37.0-47.0) L Mean Corpuscular Volume 85 FL (80-99) Mean Corpuscular Hemoglobin 26.8 PG (27.0-31.0) L Mean Corpuscular Hemoglobin Concent 31.6 G/DL (32.0-36.0) L Red Cell Distribution Width 18.4 % (11.6-14.8) H Platelet Count 240 K/UL (150-450) Mean Platelet Volume 6.4 FL (6.5-10.1) L Neutrophils (%) (Auto) 66.3 % (45.0-75.0) Lymphocytes (%) (Auto) 22.2 % (20.0-45.0) Monocytes (%) (Auto) 9.9 % (1.0-10.0) Eosinophils (%) (Auto) 0.2 % (0.0-3.0) Basophils (%) (Auto) 1.4 % (0.0-2.0) Sodium Level 144 MMOL/L (136-145) Potassium Level 3.9 MMOL/L (3.5-5.1) Chloride Level 109 MMOL/L (98-107) H Carbon Dioxide Level 19 MMOL/L (21-32) L Anion Gap 17 mmol/L (5-15) H Blood Urea Nitrogen 85 mg/dL (7-18) H Creatinine 2.5 MG/DL (0.55-1.30) H Estimat Glomerular Filtration Rate 19.1 mL/min (>60) Glucose Level 153 MG/DL (74-106) H Calcium Level 8.7 MG/DL (8.5-10.1) Phosphorus Level 5.2 MG/DL (2.5-4.9) H Magnesium Level 2.6 MG/DL (1.8-2.4) H Total Bilirubin 0.6 MG/DL (0.2-1.0) Aspartate Amino Transf (AST/SGOT) 32 U/L (15-37) Alanine Aminotransferase (ALT/SGPT) 37 U/L (12-78) Alkaline Phosphatase 282 U/L (46-116) H Ammonia 51 umol/L (11-32) H C-Reactive Protein, Quantitative 6.3 mg/dL (0.00-0.90) H Pro-B-Type Natriuretic Peptide 8614 pg/mL (0-125) H Total Protein 6.5 G/DL (6.4-8.2) Albumin 2.9 G/DL (3.4-5.0) L Globulin 3.6 g/dL Albumin/Globulin Ratio 0.8 (1.0-2.7) L Hepatitis A IgM Antibody Pending Hepatitis B Surface Antigen Pending Hepatitis B Core IgM Antibody Pending Hepatitis C Antibody Pending Arterial Blood pH 7.439 (7.350-7.450) Arterial Blood Partial Pressure CO2 28.6 mmHg (35.0-45.0) L Arterial Blood Partial Pressure O2 94.9 mmHg (75.0-100.0) Arterial Blood HCO3 18.9 mmol/L (22.0-26.0) L Arterial Blood Oxygen Saturation 96.6 % (95-100) Arterial Blood Base Excess -4.5 (-2-2) L Geoffrey Test Positive Height (Feet): 5 Height (Inches): 2.00 Weight (Pounds): 204 Medications Current Medications Medications (Trade) Dose Ordered Sig/Braeden Route PRN Reason Start Time Stop Time Status Last Admin Dose Admin Acetaminophen (Tylenol) 650 mg Q4H PRN ORAL fever 01/11/20 18:00 02/10/20 17:59 Albuterol/ Ipratropium (Albuterol/ Ipratropium) 3 ml Q6H PRN HHN dyspnea 01/11/20 18:00 01/16/20 17:59 01/13/20 03:42 Allopurinol (allopurinoL) 300 mg DAILY ORAL 01/12/20 10:15 02/11/20 10:14 01/13/20 09:34 Amlodipine Besylate (Norvasc) 5 mg DAILY ORAL 01/12/20 09:00 02/11/20 08:59 01/13/20 09:34 Atorvastatin Calcium (Lipitor) 80 mg QHS ORAL 01/11/20 21:00 04/10/20 20:59 01/13/20 20:37 Cefepime HCl 1 gm/ Dextrose 55 ml @ 110 mls/hr Q24H IVPB 01/13/20 13:00 01/20/20 12:59 01/13/20 13:08 Clonidine HCl (Catapres Tab) 0.1 mg Q4H PRN ORAL For High Blood Pressure 01/11/20 18:00 04/10/20 17:59 Dextrose (Dextrose 50%) 25 ml Q30M PRN IV Hypoglycemia 01/11/20 18:00 04/10/20 17:59 Dextrose (Dextrose 50%) 50 ml Q30M PRN IV Hypoglycemia 01/11/20 18:00 04/10/20 17:59 Docusate Sodium (Colace) 100 mg TID ORAL 01/11/20 18:00 02/10/20 17:59 01/13/20 18:07 Epoetin Shlomo (Epoetin Shlomo-EPBX(NON ESRD)) 10,000 unit TUE-TUE-TUE SUBQ 01/14/20 21:00 04/13/20 20:59 Furosemide (Lasix) 40 mg ONCE IV 01/14/20 08:00 01/14/20 10:00 Hydralazine HCl (Apresoline) 25 mg Q6HR ORAL 01/13/20 12:00 04/12/20 11:59 01/13/20 18:07 Insulin Aspart (NovoLOG) BEFORE MEALS AND HS SUBQ 01/11/20 21:00 04/10/20 20:59 01/13/20 18:09 Iron Sucrose 100 mg/Sodium Chloride 60 ml @ 240 mls/hr BEDTIME IV 01/13/20 21:00 01/17/20 21:14 01/13/20 20:37 Levothyroxine Sodium (Synthroid) 75 mcg ACBREAKFAST ORAL 01/12/20 06:30 02/11/20 06:29 01/13/20 06:30 Ondansetron HCl (Zofran) 4 mg Q6H PRN IVP Nausea & Vomiting 3/20/20 18:00 02/10/20 17:59 Pantoprazole (Protonix) 40 mg EVERY 12 HOURS ORAL 01/11/20 21:00 02/10/20 20:59 01/13/20 20:37 Polyethylene Glycol (Miralax) 17 gm HSPRN PRN ORAL Constipation 01/11/20 21:00 02/10/20 20:59 Vancomycin HCl (Vanco rx to dose) 1 ea DAILY PRN MISC Per rx protocol 01/13/20 09:15 02/12/20 09:14 Zolpidem Tartrate (Ambien) 5 mg HSPRN PRN ORAL Insomnia 01/11/20 21:00 01/18/20 20:59 Assessment/Plan Assessment/Plan: Hematology Consultation YOMI MD: Shasta King RFC: Coagulopathy and anemia DOS: 01/13/2020 HPI 69-year-old female presents the ED for hypoglycemia. Brought in from home by EMS. Accu-Chek in the 20s. Given D10. Blood sugar did improve. Patient is more awake alert oriented. History of diabetes. Denies any pain. Denies any fevers or chills. Denies cough. No other aggravating relieving factors. Denies any other associated symptoms, now on med tele, with elev michela grider, seen by other services, I've reviewed their recs, heme consulted for ongoing anemia, has been started on epo an iv iron as well. COVID-19 risk:Contact w/high r: No COVID-19 risk:Travel to affect: No Has patient experienced fountain: No Allergies: Coded Allergies: No Known Allergies (Unverified , 10/10/19) Patient History Past Medical History: DM, HTN, CHF Pertinent Family History: none Social History: Denies: smoking, alcohol use, drug use Now: No Immunizations: UTD Reviewed Nursing Documentation: PMH: Agreed; PSxH: Agreed Nursing Documentation-PMH Hx Cardiac Problems: Yes - ESHF Hx Hypertension: Yes Hx Diabetes: Yes ROS (review of systems): Constitutional: ++ weakness is noted, ++fatigue Skin: No rashes, lumps, itchiness, dryness HEENT: No LOAIZA, ear ache, visual changes, double vision, nosebleeds Breasts: No lumps, pain, discharge Pulmonary: No cough, sputum, shortness of breath, coughing up blood Cardiovascular: No chest pain, tightness, palpitations, syncope, PND GI: No nausea, vomiting, diarrhea, melena, hematochezia, change in appetite, : No dysuria, frequency, urgency, urinary incontinence, foamy urine Musculoskeletal: No joint swelling or muscle pain, trauma, back pain Neurologic: No dizziness, fainting, seizures, changes in smell or taste Psychiatric: No nervousness, stress, or depression, anxiety, hallucinations Endocrine: No weight change, heat or cold intolerance, tremor, insomnia Physical Exam: Vitals: reviewed General: NAD HEENT: nc, at Neck: supple Chest: clear breath sounds bilaterally Cardiovascular: RRR, no s3, s4 Abdomen: soft, nontender, nd Extremities: no cce, normal range of motion Neuro: alert and oriented Gu: ++yeboah Labs: reviewed as per above Imaging: noted Assessment and Recs: # Anemia of chronic disease due to underlying chronic medical issues, multifactorial v Gi bleed --> Anemia workup has been ordered, rule out gi bleed --> No evidence of hemolysis is noted, peripheral smear has been reviewed. --> Hgb goal >7. Transfuse prn. --> EPOGEN AND IV IRON STARTED --> Medications have been reviewed --> low threshold for gi evaluation in case has occult + --> bone marrow biopsy is not indicated given the other more likely causes # Coagulation defect, multifactorial usually related to poor PO intake versus medications, versus hepatitis v cirrhosis --> administer Vitamin K if patient is bleeding or FFP if the INR is >10 --> hold off on ffp unless active procedure/bleeding, first begin with vit K 10 --> mixing study as needed # Renal failure (ARF), acute on chronic --> ivf as per renal --> kyxelate as needed --> renal us --> as per Dr. Severino # Hypoglycemia -> endo eval prn # Pleural effusion --> diuresis as needed --> monitor ivf # Hyperkalemia # Morbid obesity The timing of this note does not necessarily reflect the time of the patient was seen. Greatly appreciate consultation. Derick Landers MD Jan 13, 2020 20:50
[2020-01-13] MEDS: OLANZapine 2.5mg tab ORAL SCH (23:56)
[2020-01-14] VITALS: BP 108/36
--- NOTE | 2020-01-14 00:30 | Consultation ---
DATE OF CONSULTATION: 01/13/2020 HISTORY OF PRESENT ILLNESS: This is a 69-year-old female with a history of multiple medical conditions Colombian-speaking, admitted to the hospital for medical stabilization. The patient is confused, disoriented to date, poor insight into the situation. She has waxing and waning consciousness and episodes of agitation and poor memory. PAST PSYCHIATRIC HISTORY: Dementia. PAST MEDICAL HISTORY: 1. Anemia. 2. Cirrhosis. 3. Obesity. 4. Hypertension. 5. Diabetes. 6. Hypothyroidism. ALLERGIES: No known drug allergies. SUBSTANCE ABUSE HISTORY: No known history of illicit drug use or alcohol. MENTAL STATUS EXAMINATION: The patient is alert, oriented times self and place. Mood is anxious. Affect is flat. Thought process, there is a paucity of thought content. Thought content, no suicidal or homicidal ideation. Cognition is impaired. Insight and judgment are impaired. ASSESSMENT: Gillette I Acute metabolic encephalopathy, rule out dementia. Gillette II Deferred. Gillette III As above. Gillette IV Low. Gillette V 20 PLAN: 1. Continue to treat the underlying cause of encephalopathy. 2. Zyprexa p.r.n. 3. Continue to follow and readjust the medications. Aki Morris M.D. DR: Alisia JOB#: [id number] CC: LEILA
--- NOTE | 2020-01-14 01:52 | NUR ---
NURSE NOTES: Resting throughout the night. No significant change of condition noted. Will continue to monitor.
[2020-01-14 04:00] VITALS: BP 153/78
[2020-01-14] MEDS: NovoLOG Insulin Flexpen SUBQ SCH ×4 (05:49→22:02)
[2020-01-14] MEDS: HydrALAZINE 25mg tab ORAL SCH ×2 (05:58→11:43)
--- NOTE | 2020-01-14 06:48 | Hematology/Onc Progress Note ---
Assessment/Plan Assessment/Plan Assessment and Recs: # Anemia of chronic disease due to underlying chronic medical issues, multifactorial v Gi bleed --> Anemia workup has been ordered, rule out gi bleed --> No evidence of hemolysis is noted, peripheral smear has been reviewed. --> Hgb goal >7. Transfuse prn. --> EPOGEN AND IV IRON STARTED --> Medications have been reviewed --> low threshold for gi evaluation in case has occult + --> bone marrow biopsy is not indicated given the other more likely causes --> hgb 7.7-->8 # Coagulation defect, multifactorial usually related to poor PO intake versus medications, versus hepatitis v cirrhosis --> administer Vitamin K if patient is bleeding or FFP if the INR is >10 --> hold off on ffp unless active procedure/bleeding, first begin with vit K 10 --> mixing study as needed # Renal failure (ARF), acute on chronic --> ivf as per renal --> kyxelate as needed --> renal us --> as per Dr. Severino # Hypoglycemia -> endo eval prn # Pleural effusion --> diuresis as needed --> monitor ivf # Hyperkalemia # Morbid obesity The timing of this note does not necessarily reflect the time of the patient was seen. Greatly appreciate consultation. Subjective Constitutional: Denies: no symptoms, chills, fever, malaise, weakness, other HEENT: Denies: no symptoms, eye pain, blurred vision, tearing, double vision, ear pain, ear discharge, nose pain, nose congestion, throat pain, throat swelling, mouth pain, mouth swelling, other Cardiovascular: Denies: no symptoms, chest pain, edema, irregular heart rate, lightheadedness, palpitations, syncope, other Respiratory: Denies: no symptoms, cough, shortness of breath, SOB with excertion, SOB at rest, sputum, wheezing, other Gastrointestinal/Abdominal: Denies: no symptoms, abdomen distended, abdominal pain, black stools, tarry stools, blood in stool, constipated, diarrhea, difficulty swallowing, nausea, poor appetite, poor fluid intake, rectal bleeding , vomiting, other Genitourinary: Denies: no symptoms, burning, discharge, frequency, flank pain, hematuria, incontinence, pain, urgency, other Endocrine: Denies: no symptoms, excessive sweating, flushing, intolerance to cold, intolerance to heat, increased hunger, increased thirst, increased urine, unexplained weight gain, unexplained weight loss, other Hematologic/Lymphatic: Denies: no symptoms, anemia, easy bleeding, easy bruising, adenopathy, other Allergies: Coded Allergies: No Known Allergies (Unverified , 10/10/19) Subjective 01/13 no events, no f/c, no bleeding, no labs, no hemolysis Objective Objective Current Medications Medications (Trade) Dose Ordered Sig/Braeden Route PRN Reason Start Time Stop Time Status Last Admin Dose Admin Acetaminophen (Tylenol) 650 mg Q4H PRN ORAL fever 01/11/20 18:00 02/10/20 17:59 Albuterol/ Ipratropium (Albuterol/ Ipratropium) 3 ml Q6H PRN HHN dyspnea 01/11/20 18:00 01/16/20 17:59 01/13/20 03:42 Allopurinol (allopurinoL) 300 mg DAILY ORAL 01/12/20 10:15 02/11/20 10:14 01/13/20 09:34 Amlodipine Besylate (Norvasc) 5 mg DAILY ORAL 01/12/20 09:00 02/11/20 08:59 01/13/20 09:34 Atorvastatin Calcium (Lipitor) 80 mg QHS ORAL 01/11/20 21:00 04/10/20 20:59 01/13/20 20:37 Cefepime HCl 1 gm/ Dextrose 55 ml @ 110 mls/hr Q24H IVPB 01/13/20 13:00 01/20/20 12:59 01/13/20 13:08 Clonidine HCl (Catapres Tab) 0.1 mg Q4H PRN ORAL For High Blood Pressure 01/11/20 18:00 04/10/20 17:59 Dextrose (Dextrose 50%) 25 ml Q30M PRN IV Hypoglycemia 01/11/20 18:00 04/10/20 17:59 Dextrose (Dextrose 50%) 50 ml Q30M PRN IV Hypoglycemia 01/11/20 18:00 04/10/20 17:59 Docusate Sodium (Colace) 100 mg TID ORAL 01/11/20 18:00 02/10/20 17:59 01/13/20 18:07 Epoetin Shlomo (Epoetin Shlomo-EPBX(NON ESRD)) 10,000 unit MON-WED-TUE SUBQ 01/14/20 21:00 04/13/20 20:59 Furosemide (Lasix) 40 mg ONCE IV 01/14/20 08:00 01/14/20 10:00 Hydralazine HCl (Apresoline) 25 mg Q6HR ORAL 01/13/20 12:00 04/12/20 11:59 01/14/20 05:58 Insulin Aspart (NovoLOG) BEFORE MEALS AND HS SUBQ 01/11/20 21:00 04/10/20 20:59 01/13/20 21:04 Iron Sucrose 100 mg/Sodium Chloride 60 ml @ 240 mls/hr BEDTIME IV 01/13/20 21:00 01/17/20 21:14 01/13/20 20:37 Levothyroxine Sodium (Synthroid) 75 mcg ACBREAKFAST ORAL 01/12/20 06:30 02/11/20 06:29 01/14/20 05:58 Olanzapine (ZyPREXA) 2.5 mg BEDTIME ORAL 01/13/20 23:15 02/27/20 23:14 01/13/20 23:56 Ondansetron HCl (Zofran) 4 mg Q6H PRN IVP Nausea & Vomiting 01/11/20 18:00 02/10/20 17:59 Pantoprazole (Protonix) 40 mg EVERY 12 HOURS ORAL 01/11/20 21:00 02/10/20 20:59 01/13/20 20:37 Polyethylene Glycol (Miralax) 17 gm HSPRN PRN ORAL Constipation 01/11/20 21:00 02/10/20 20:59 01/13/20 21:02 Vancomycin HCl (Vanco rx to dose) 1 ea DAILY PRN MISC Per rx protocol 01/13/20 09:15 02/12/20 09:14 Zolpidem Tartrate (Ambien) 5 mg HSPRN PRN ORAL Insomnia 01/11/20 21:00 01/18/20 20:59 Last 24 Hour Vital Signs Date Time Temp Pulse Resp B/P (MAP) Pulse Ox O2 Delivery O2 Flow Rate FiO2 01/14/20 05:58 153/78 01/14/20 04:00 96.9 76 22 153/78 (103) 98 01/14/20 04:00 84 01/14/20 00:00 97.7 72 24 108/36 (60) 98 01/14/20 00:00 69 01/13/20 23:26 108/36 01/13/20 22:49 Nasal Cannula 2.0 01/13/20 21:00 Nasal Cannula 2.0 01/13/20 21:00 Room Air 01/13/20 20:06 74 20 96 Room Air 21 01/13/20 20:00 99.5 73 22 97/56 (70) 99 01/13/20 18:07 133/59 01/13/20 16:30 98.2 72 18 133/59 (83) 96 01/13/20 12:00 74 01/13/20 11:40 98.3 74 18 134/76 (95) 96 01/13/20 11:38 145/90 01/13/20 09:34 73 145/90 01/13/20 09:00 Room Air 01/13/20 08:00 98.1 73 18 145/90 (108) 97 01/13/20 08:00 72 01/13/20 07:20 72 20 95 Room Air 21 01/13/20 06:58 Room Air 01/13/20 04:22 Room Air 01/13/20 04:00 74 01/13/20 04:00 97.5 74 28 143/75 (97) 100 01/13/20 03:52 74 20 100 Room Air 21 01/13/20 03:42 71 22 100 Nasal Cannula 3.0 32 01/13/20 00:00 75 01/13/20 00:00 97.0 76 28 144/62 (89) 97 01/13/20 00:00 Room Air 01/12/20 21:00 Room Air 01/12/20 20:06 71 18 96 Room Air 21 01/12/20 20:00 71 01/12/20 20:00 98.1 72 24 132/72 (92) 94 01/12/20 16:00 69 01/12/20 16:00 98.1 80 18 129/84 (99) 96 01/12/20 12:00 71 01/12/20 12:00 Room Air 01/12/20 12:00 97.3 68 19 127/60 (82) 95 01/12/20 10:47 Room Air 01/12/20 09:51 70 132/64 01/12/20 09:00 Room Air 01/12/20 08:13 96.6 70 19 132/64 (86) 96 01/12/20 08:00 76 Intake and Output 01/13/20 01/14/20 19:00 07:00 Intake Total 240 ml 120 ml Output Total 1500 ml Balance 240 ml -1380 ml Intake Oral 240 ml 120 ml Output Urine Total 1500 ml # Bowel Movements 3 5 Labs Test 01/11/20 11:35 01/11/20 11:54 01/11/20 15:15 01/11/20 16:00 White Blood Count 6.6 K/UL (4.8-10.8) Red Blood Count 2.81 M/UL (4.20-5.40) Hemoglobin 7.7 G/DL (12.0-16.0) Hematocrit 24.9 % (37.0-47.0) Mean Corpuscular Volume 89 FL (80-99) Mean Corpuscular Hemoglobin 27.3 PG (27.0-31.0) Mean Corpuscular Hemoglobin Concent 30.8 G/DL (32.0-36.0) Red Cell Distribution Width 18.2 % (11.6-14.8) Platelet Count 221 K/UL (150-450) Mean Platelet Volume 6.3 FL (6.5-10.1) Neutrophils (%) (Auto) % (45.0-75.0) Lymphocytes (%) (Auto) % (20.0-45.0) Monocytes (%) (Auto) % (1.0-10.0) Eosinophils (%) (Auto) % (0.0-3.0) Basophils (%) (Auto) % (0.0-2.0) Differential Total Cells Counted 100 Neutrophils % (Manual) 90 % (45-75) Lymphocytes % (Manual) 5 % (20-45) Monocytes % (Manual) 4 % (1-10) Eosinophils % (Manual) 1 % (0-3) Basophils % (Manual) 0 % (0-2) Band Neutrophils 0 % (0-8) Platelet Estimate Adequate Platelet Morphology Normal Hypochromasia 1+ Anisocytosis 1+ Sodium Level 135 MMOL/L (136-145) Potassium Level 5.7 MMOL/L (3.5-5.1) Chloride Level 105 MMOL/L (98-107) Carbon Dioxide Level 20 MMOL/L (21-32) Anion Gap 10 mmol/L (5-15) Blood Urea Nitrogen 85 mg/dL (7-18) Creatinine 2.7 MG/DL (0.55-1.30) Estimat Glomerular Filtration Rate 17.5 mL/min (>60) Glucose Level 78 MG/DL (74-106) Calcium Level 8.9 MG/DL (8.5-10.1) Total Bilirubin 0.4 MG/DL (0.2-1.0) Aspartate Amino Transf (AST/SGOT) 43 U/L (15-37) Alanine Aminotransferase (ALT/SGPT) 58 U/L (12-78) Alkaline Phosphatase 381 U/L (46-116) Total Protein 7.5 G/DL (6.4-8.2) Albumin 3.1 G/DL (3.4-5.0) Globulin 4.4 g/dL Albumin/Globulin Ratio 0.7 (1.0-2.7) Lipase 200 U/L (73-393) Urine Color Yellow Urine Appearance Clear Urine pH 5 (4.5-8.0) Urine Specific [place] 1.015 (1.005-1.035) Urine Protein 3+ (NEGATIVE) Urine Glucose (UA) Negative (NEGATIVE) Urine Ketones Negative (NEGATIVE) Urine Blood Negative (NEGATIVE) Urine Nitrite Negative (NEGATIVE) Urine Bilirubin Negative (NEGATIVE) Urine Urobilinogen Normal MG/DL (0.0-1.0) Urine Leukocyte Esterase Negative (NEGATIVE) Urine RBC 0 /HPF (0 - 2) Urine WBC 0 /HPF (0 - 2) Urine Squamous Epithelial Cells Occasional /LPF Urine Bacteria Few /HPF (NONE) Urine Random Sodium < 20 mmol/L (20-110) Prothrombin Time 12.4 SEC (9.30-11.50) Prothromb Time International Ratio 1.2 (0.9-1.1) Activated Partial Thromboplast Time 35 SEC (23-33) Lactic Acid Level 2.10 mmol/L (0.4-2.0) 1.90 mmol/L (0.66-2.22) Test 01/12/20 06:47 01/12/20 13:45 01/13/20 01:00 01/13/20 04:10 White Blood Count 4.9 K/UL (4.8-10.8) Red Blood Count 2.67 M/UL (4.20-5.40) Hemoglobin 7.3 G/DL (12.0-16.0) Hematocrit 23.4 % (37.0-47.0) Mean Corpuscular Volume 87 FL (80-99) Mean Corpuscular Hemoglobin 27.4 PG (27.0-31.0) Mean Corpuscular Hemoglobin Concent 31.4 G/DL (32.0-36.0) Red Cell Distribution Width 17.5 % (11.6-14.8) Platelet Count 214 K/UL (150-450) Mean Platelet Volume 6.4 FL (6.5-10.1) Neutrophils (%) (Auto) % (45.0-75.0) Lymphocytes (%) (Auto) % (20.0-45.0) Monocytes (%) (Auto) % (1.0-10.0) Eosinophils (%) (Auto) % (0.0-3.0) Basophils (%) (Auto) % (0.0-2.0) Differential Total Cells Counted 100 Neutrophils % (Manual) 71 % (45-75) Lymphocytes % (Manual) 17 % (20-45) Monocytes % (Manual) 9 % (1-10) Eosinophils % (Manual) 3 % (0-3) Basophils % (Manual) 0 % (0-2) Band Neutrophils 0 % (0-8) Platelet Estimate Adequate Platelet Morphology Normal Hypochromasia 1+ Anisocytosis 1+ Sodium Level 143 MMOL/L (136-145) Potassium Level 5.9 MMOL/L (3.5-5.1) Chloride Level 110 MMOL/L (98-107) Carbon Dioxide Level 19 MMOL/L (21-32) Anion Gap 14 mmol/L (5-15) Blood Urea Nitrogen 90 mg/dL (7-18) Creatinine 2.7 MG/DL (0.55-1.30) Estimat Glomerular Filtration Rate 17.5 mL/min (>60) Glucose Level 96 MG/DL (74-106) Hemoglobin A1c 7.6 % (4.3-6.0) Lactic Acid Level 1.90 mmol/L (0.4-2.0) Uric Acid 9.8 MG/DL (2.6-7.2) Calcium Level 8.5 MG/DL (8.5-10.1) Phosphorus Level 5.2 MG/DL (2.5-4.9) Magnesium Level 2.8 MG/DL (1.8-2.4) Iron Level 22 ug/dL (50-175) Total Iron Binding Capacity 240 ug/dL (250-450) Percent Iron Saturation 9 % (15-50) Unsaturated Iron Binding 218 ug/dL (112-346) Ferritin 296 NG/ML (8-388) Total Bilirubin 0.4 MG/DL (0.2-1.0) Gamma Glutamyl Transpeptidase 158 U/L (5-85) Aspartate Amino Transf (AST/SGOT) 31 U/L (15-37) Alanine Aminotransferase (ALT/SGPT) 46 U/L (12-78) Alkaline Phosphatase 327 U/L (46-116) Total Creatine Kinase 103 U/L (26-308) Troponin I 0.047 ng/mL (0.000-0.056) C-Reactive Protein, Quantitative 5.4 mg/dL (0.00-0.90) Pro-B-Type Natriuretic Peptide 5756 pg/mL (0-125) Total Protein 6.7 G/DL (6.4-8.2) Albumin 2.7 G/DL (3.4-5.0) Globulin 4.0 g/dL Albumin/Globulin Ratio 0.7 (1.0-2.7) Triglycerides Level 70 MG/DL (30-150) Cholesterol Level 103 MG/DL (< 200) LDL Cholesterol 55 mg/dL (<100) HDL Cholesterol 33 MG/DL (40-60) Cholesterol/HDL Ratio 3.1 (3.3-4.4) Vitamin B12 Level 1500 PG/ML (193-986) Folate 12.1 NG/ML (8.6-58.9) Thyroid Stimulating Hormone (TSH) 7.261 uiU/mL (0.358-3.740) Urine Collection Time 24 HRS Urine Total Volume 3000 ML Urine Total Protein mg/dL 35 mg/dL Urine Total Protein 24 Hour 1050.0 mg/24hr (< 150) Stool Occult Blood Positive (NEGATIVE) Positive (NEGATIVE) Test 01/13/20 06:25 01/13/20 17:23 White Blood Count 5.9 K/UL (4.8-10.8) Red Blood Count 3.00 M/UL (4.20-5.40) Hemoglobin 8.0 G/DL (12.0-16.0) Hematocrit 25.3 % (37.0-47.0) Mean Corpuscular Volume 85 FL (80-99) Mean Corpuscular Hemoglobin 26.8 PG (27.0-31.0) Mean Corpuscular Hemoglobin Concent 31.6 G/DL (32.0-36.0) Red Cell Distribution Width 18.4 % (11.6-14.8) Platelet Count 240 K/UL (150-450) Mean Platelet Volume 6.4 FL (6.5-10.1) Neutrophils (%) (Auto) 66.3 % (45.0-75.0) Lymphocytes (%) (Auto) 22.2 % (20.0-45.0) Monocytes (%) (Auto) 9.9 % (1.0-10.0) Eosinophils (%) (Auto) 0.2 % (0.0-3.0) Basophils (%) (Auto) 1.4 % (0.0-2.0) Sodium Level 144 MMOL/L (136-145) Potassium Level 3.9 MMOL/L (3.5-5.1) Chloride Level 109 MMOL/L (98-107) Carbon Dioxide Level 19 MMOL/L (21-32) Anion Gap 17 mmol/L (5-15) Blood Urea Nitrogen 85 mg/dL (7-18) Creatinine 2.5 MG/DL (0.55-1.30) Estimat Glomerular Filtration Rate 19.1 mL/min (>60) Glucose Level 153 MG/DL (74-106) Calcium Level 8.7 MG/DL (8.5-10.1) Phosphorus Level 5.2 MG/DL (2.5-4.9) Magnesium Level 2.6 MG/DL (1.8-2.4) Total Bilirubin 0.6 MG/DL (0.2-1.0) Aspartate Amino Transf (AST/SGOT) 32 U/L (15-37) Alanine Aminotransferase (ALT/SGPT) 37 U/L (12-78) Alkaline Phosphatase 282 U/L (46-116) Ammonia 51 umol/L (11-32) C-Reactive Protein, Quantitative 6.3 mg/dL (0.00-0.90) Pro-B-Type Natriuretic Peptide 8614 pg/mL (0-125) Total Protein 6.5 G/DL (6.4-8.2) Albumin 2.9 G/DL (3.4-5.0) Globulin 3.6 g/dL Albumin/Globulin Ratio 0.8 (1.0-2.7) Arterial Blood pH 7.439 (7.350-7.450) Arterial Blood Partial Pressure CO2 28.6 mmHg (35.0-45.0) Arterial Blood Partial Pressure O2 94.9 mmHg (75.0-100.0) Arterial Blood HCO3 18.9 mmol/L (22.0-26.0) Arterial Blood Oxygen Saturation 96.6 % (95-100) Arterial Blood Base Excess -4.5 (-2-2) Geoffrey Test Positive Height (Feet): 5 Height (Inches): 2.00 Weight (Pounds): 204 Objective Physical Exam: Vitals: reviewed General: NAD HEENT: nc, at Neck: supple Chest: clear breath sounds bilaterally Cardiovascular: RRR, no s3, s4 Abdomen: soft, nontender, nd Extremities: no cce, normal range of motion Neuro: alert and oriented Gu: ++Derick Hwang MD Jan 14, 2020 06:48
--- NOTE | 2020-01-14 06:51 | General Progress Note ---
Assessment/Plan Problem List: (1) Hypothyroidism ICD Codes: E03.9 - Hypothyroidism, unspecified SNOMED: 37236505 (2) Diabetes mellitus ICD Codes: E11.9 - Type 2 diabetes mellitus without complications SNOMED: 75842201 (3) Diabetic nephropathy ICD Codes: E11.21 - Type 2 diabetes mellitus with diabetic nephropathy SNOMED: 737838374 (4) Hypoglycemia ICD Codes: E16.2 - Hypoglycemia, unspecified SNOMED: 431767265 Status: stable, not improved Assessment/Plan: no recurrence of hypoglycemia after dextrose was stopped - continue glucose monitoring without insulin coverage - continue to hold Metformin - hypoglycemia protocol in order TSH is elevated on Levothyroxine 75 mcg daily - increase dosage to 88 mcg daily - repeat TSH, free T4 in 4 weeks Subjective ROS Limited/Unobtainable: Yes Allergies: Coded Allergies: No Known Allergies (Unverified , 10/10/19) Subjective events noted presented with hypoglycemia and AMS glucose was as low as 20 only Metformin listed as home diabetic medication evaluated by Dr Bueno yesterday Item Value Date Time Bedside Blood Glucose 94 mg/dl 01/14/20 0549 Bedside Blood Glucose 152 mg/dl H 01/13/20 2104 Bedside Blood Glucose 167 mg/dl H 01/13/20 1809 Bedside Blood Glucose 184 mg/dl H 01/13/20 1228 Bedside Blood Glucose 138 mg/dl H 01/13/20 0653 Objective Last 24 Hour Vital Signs Date Time Temp Pulse Resp B/P (MAP) Pulse Ox O2 Delivery O2 Flow Rate FiO2 01/14/20 05:58 153/78 01/14/20 04:00 96.9 76 22 153/78 (103) 98 01/14/20 04:00 84 01/14/20 00:00 97.7 72 24 108/36 (60) 98 01/14/20 00:00 69 01/13/20 23:26 108/36 01/13/20 22:49 Nasal Cannula 2.0 01/13/20 21:00 Nasal Cannula 2.0 01/13/20 21:00 Room Air 01/13/20 20:06 74 20 96 Room Air 21 01/13/20 20:00 99.5 73 22 97/56 (70) 99 01/13/20 18:07 133/59 01/13/20 16:30 98.2 72 18 133/59 (83) 96 01/13/20 12:00 74 01/13/20 11:40 98.3 74 18 134/76 (95) 96 01/13/20 11:38 145/90 01/13/20 09:34 73 145/90 01/13/20 09:00 Room Air 01/13/20 08:00 98.1 73 18 145/90 (108) 97 01/13/20 08:00 72 01/13/20 07:20 72 20 95 Room Air 21 01/13/20 06:58 Room Air Intake and Output 01/13/20 01/14/20 19:00 07:00 Intake Total 240 ml 120 ml Output Total 1500 ml Balance 240 ml -1380 ml Intake Oral 240 ml 120 ml Output Urine Total 1500 ml # Bowel Movements 3 5 Laboratory Tests 01/13/20 17:23: Arterial Blood pH 7.439, Arterial Blood Partial Pressure CO2 28.6L, Arterial Blood Partial Pressure O2 94.9, Arterial Blood HCO3 18.9L, Arterial Blood Oxygen Saturation 96.6, Arterial Blood Base Excess -4.5L, Geoffrey Test Positive Height (Feet): 5 Height (Inches): 2.00 Weight (Pounds): 204 General Appearance: no apparent distress Neck: normal alignment Cardiovascular: regular rhythm Respiratory/Chest: lungs clear Abdomen: normal bowel sounds Pelvis: normal external exam Objective Current Medications Medications (Trade) Dose Ordered Sig/[place] Route PRN Reason Start Time Stop Time Status Last Admin Dose Admin Acetaminophen (Tylenol) 650 mg Q4H PRN ORAL fever 01/11/20 18:00 02/10/20 17:59 Albuterol/ Ipratropium (Albuterol/ Ipratropium) 3 ml Q6H PRN HHN dyspnea 01/11/20 18:00 01/16/20 17:59 01/13/20 03:42 Allopurinol (allopurinoL) 300 mg DAILY ORAL 01/12/20 10:15 02/11/20 10:14 01/13/20 09:34 Amlodipine Besylate (Norvasc) 5 mg DAILY ORAL 01/12/20 09:00 02/11/20 08:59 01/13/20 09:34 Atorvastatin Calcium (Lipitor) 80 mg QHS ORAL 01/11/20 21:00 04/10/20 20:59 01/13/20 20:37 Cefepime HCl 1 gm/ Dextrose 55 ml @ 110 mls/hr Q24H IVPB 01/13/20 13:00 01/20/20 12:59 01/13/20 13:08 Clonidine HCl (Catapres Tab) 0.1 mg Q4H PRN ORAL For High Blood Pressure 01/11/20 18:00 04/10/20 17:59 Dextrose (Dextrose 50%) 25 ml Q30M PRN IV Hypoglycemia 01/11/20 18:00 04/10/20 17:59 Dextrose (Dextrose 50%) 50 ml Q30M PRN IV Hypoglycemia 01/11/20 18:00 04/10/20 17:59 Docusate Sodium (Colace) 100 mg TID ORAL 01/11/20 18:00 02/10/20 17:59 01/13/20 18:07 Epoetin Shlomo (Epoetin Shlomo-EPBX(NON ESRD)) 10,000 unit TUE- SUBQ 01/14/20 21:00 04/13/20 20:59 Furosemide (Lasix) 40 mg ONCE IV 01/14/20 08:00 01/14/20 10:00 Hydralazine HCl (Apresoline) 25 mg Q6HR ORAL 01/13/20 12:00 04/12/20 11:59 01/14/20 05:58 Insulin Aspart (NovoLOG) BEFORE MEALS AND HS SUBQ 01/11/20 21:00 04/10/20 20:59 01/13/20 21:04 Iron Sucrose 100 mg/Sodium Chloride 60 ml @ 240 mls/hr BEDTIME IV 01/13/20 21:00 01/17/20 21:14 01/13/20 20:37 Levothyroxine Sodium (Synthroid) 75 mcg ACBREAKFAST ORAL 01/12/20 06:30 02/11/20 06:29 01/14/20 05:58 Olanzapine (ZyPREXA) 2.5 mg BEDTIME ORAL 01/13/20 23:15 02/27/20 23:14 01/13/20 23:56 Ondansetron HCl (Zofran) 4 mg Q6H PRN IVP Nausea & Vomiting 01/11/20 18:00 02/10/20 17:59 Pantoprazole (Protonix) 40 mg EVERY 12 HOURS ORAL 01/11/20 21:00 02/10/20 20:59 01/13/20 20:37 Polyethylene Glycol (Miralax) 17 gm HSPRN PRN ORAL Constipation 01/11/20 21:00 02/10/20 20:59 01/13/20 21:02 Vancomycin HCl (Vanco rx to dose) 1 ea DAILY PRN MISC Per rx protocol 01/13/20 09:15 02/12/20 09:14 Zolpidem Tartrate (Ambien) 5 mg HSPRN PRN ORAL Insomnia 01/11/20 21:00 01/18/20 20:59 Jake Aleaxnder MD Jan 14, 2020 06:51
--- NOTE | 2020-01-14 07:14 | NUR ---
HAND-OFF: Report given to BHAVIN Perez. Plan of care endorsed.
--- NOTE | 2020-01-14 07:31 | NUR ---
NURSE NOTES: pt. in bed just had a BM now. awake and alert X2. pvc monitor on, pt reports no chest pain, but she has labor breathing on 2L O2. Bed is locked and in lowest position, call light within reach, side rail up x 2, alarm on of safety. Will continue to monitor pt.
[2020-01-14 07:42] LABS: BASOPHILS % (AUTO) 0.8 % (0.0-2.0); EOSINOPHILS % (AUTO) 1.6 % (0.0-3.0); HEMATOCRIT 28.1 % (37.0-47.0); HEMOGLOBIN 8.8 G/DL (12.0-16.0); LYMPHOCYTES % (AUTO) 18.7 % (20.0-45.0); MEAN CORPUSCULAR VOLUME 85 FL (80-99); MONOCYTES % (AUTO) 8.8 % (1.0-10.0); NEUTROPHILS % (AUTO) 70.1 % (45.0-75.0); PLATELET COUNT 280 K/UL (150-450); RED BLOOD COUNT 3.31 M/UL (4.20-5.40); RED CELL DISTRIBUTION WIDTH 19.2 % (11.6-14.8); WHITE BLOOD COUNT 6.7 K/UL (4.8-10.8)
[2020-01-14 08:00] VITALS: BP 160/74
[2020-01-14 08:23] LABS: ALANINE AMINOTRANSFERASE 41 U/L (12-78); ALBUMIN/GLOBULIN RATIO 0.7 (1.0-2.7); ALKALINE PHOSPHATASE 284 U/L (46-116); ANION GAP 18 mmol/L (5-15); ASPARTATE AMINO TRANSFERASE 30 U/L (15-37); BILIRUBIN,TOTAL 0.7 MG/DL (0.2-1.0); BLOOD UREA NITROGEN 66 mg/dL (7-18); CALCIUM 8.9 MG/DL (8.5-10.1); CARBON DIOXIDE 19 MMOL/L (21-32); CHLORIDE 111 MMOL/L (98-107); CREATININE 2.3 MG/DL (0.55-1.30); POTASSIUM 3.1 MMOL/L (3.5-5.1); SODIUM 148 MMOL/L (136-145)
[2020-01-14 08:27] LABS: PHOSPHORUS 4.9 MG/DL (2.5-4.9)
--- NOTE | 2020-01-14 09:14 | NUR ---
NURSE NOTES: Les Perez RN, troponin level.
[2020-01-14] MEDS: Docusate 100mg cap ORAL SCH ×3 (09:20→18:39)
--- NOTE | 2020-01-14 09:23 | General Progress Note ---
Assessment/Plan Problem List: (1) Renal failure (ARF), acute on chronic ICD Codes: N17.9 - Acute kidney failure, unspecified; N18.9 - Chronic kidney disease, unspecified SNOMED: 927358096 Qualifiers: Qualified Codes: N17.9 - Acute kidney failure, unspecified; N18.9 - Chronic kidney disease, unspecified (2) History of hypertension ICD Codes: Z86.79 - Personal history of other diseases of the circulatory system SNOMED: 031144106 (3) Diabetes mellitus ICD Codes: E11.9 - Type 2 diabetes mellitus without complications SNOMED: 73984704 (4) Pleural effusion ICD Codes: J90 - Pleural effusion, not elsewhere classified SNOMED: 85673132 (5) Anemia ICD Codes: D64.9 - Anemia, unspecified SNOMED: 505757382 Qualifiers: Qualified Codes: D64.9 - Anemia, unspecified (6) Hypoglycemia ICD Codes: E16.2 - Hypoglycemia, unspecified SNOMED: 775547152 Status: stable, progressing Assessment/Plan: pt deit eval bp bs control cbc bmp am Subjective Constitutional: Reports: weakness Allergies: Coded Allergies: No Known Allergies (Unverified , 10/10/19) All Systems: reviewed and negative except above Subjective calm in bed Objective Last 24 Hour Vital Signs Date Time Temp Pulse Resp B/P (MAP) Pulse Ox O2 Delivery O2 Flow Rate FiO2 01/14/20 08:00 98.1 60 19 160/74 (102) 100 01/14/20 07:00 60 18 100 Room Air 21 01/14/20 05:58 153/78 01/14/20 04:00 96.9 76 22 153/78 (103) 98 01/14/20 04:00 84 01/14/20 00:00 97.7 72 24 108/36 (60) 98 01/14/20 00:00 69 01/13/20 23:26 108/36 01/13/20 22:49 Nasal Cannula 2.0 01/13/20 21:00 Nasal Cannula 2.0 01/13/20 21:00 Room Air 01/13/20 20:06 74 20 96 Room Air 21 01/13/20 20:00 99.5 73 22 97/56 (70) 99 01/13/20 18:07 133/59 01/13/20 16:30 98.2 72 18 133/59 (83) 96 01/13/20 12:00 74 01/13/20 11:40 98.3 74 18 134/76 (95) 96 01/13/20 11:38 145/90 01/13/20 09:34 73 145/90 Intake and Output 01/13/20 01/14/20 19:00 07:00 Intake Total 240 ml 120 ml Output Total 1500 ml Balance 240 ml -1380 ml Intake Oral 240 ml 120 ml Output Urine Total 1500 ml # Bowel Movements 3 5 Laboratory Tests 01/13/20 17:23: Arterial Blood pH 7.439, Arterial Blood Partial Pressure CO2 28.6L, Arterial Blood Partial Pressure O2 94.9, Arterial Blood HCO3 18.9L, Arterial Blood Oxygen Saturation 96.6, Arterial Blood Base Excess -4.5L, Geoffrey Test Positive 01/14/20 05:55: White Blood Count 6.7, Red Blood Count 3.31L, Hemoglobin 8.8L, Hematocrit 28.1L , Mean Corpuscular Volume 85, Mean Corpuscular Hemoglobin 26.7L, Mean Corpuscular Hemoglobin Concent 31.5L, Red Cell Distribution Width 19.2H, Platelet Count 280, Mean Platelet Volume 6.4L, Neutrophils (%) (Auto) 70.1, Lymphocytes (%) (Auto) 18.7L, Monocytes (%) (Auto) 8.8, Eosinophils (%) (Auto) 1.6, Basophils (%) (Auto) 0.8, PTT Mixing Study [Pending], APTT Patient/Control Mix [Pending], Mix PTT Incubation Time [Pending], Mix PTT Normal/Saline 1:1 Immediate [Pending], Thrombin Time Normal Plasma [Pending], Sodium Level 148H, Potassium Level 3.1L, Chloride Level 111H, Carbon Dioxide Level 19L, Anion Gap 18H, Blood Urea Nitrogen 66H, Creatinine 2.3H, Estimat Glomerular Filtration Rate 21.1, Glucose Level 93, Uric Acid 9.8H, Calcium Level 8.9, Phosphorus Level 4.9, Magnesium Level 2.5H, Total Bilirubin 0.7, Aspartate Amino Transf ( AST/SGOT) 30, Alanine Aminotransferase (ALT/SGPT) 41, Alkaline Phosphatase 284H , Troponin I 0.080H, C-Reactive Protein, Quantitative 5.9H, Pro-B-Type Natriuretic Peptide [Pending], Total Protein 7.1, Albumin 3.0L, Globulin 4.1, Albumin/Globulin Ratio 0.7L, Random Vancomycin Level 15.1 Height (Feet): 5 Height (Inches): 2.00 Weight (Pounds): 204 General Appearance: lethargic EENT: normal ENT inspection Neck: normal alignment Cardiovascular: normal peripheral pulses, normal rate, regular rhythm Respiratory/Chest: chest wall non-tender, lungs clear, normal breath sounds Abdomen: normal bowel sounds, non tender, soft Extremities: normal inspection Edema: no edema noted Arm (L), no edema noted Arm (R), no edema noted Leg (L), no edema noted Leg (R), no edema noted Pedal (L), no edema noted Pedal (R), no edema noted Generalized Neurologic: motor weakness Skin: normal pigmentation, warm/dry Dyllan King DO Jan 14, 2020 09:23
--- NOTE | 2020-01-14 09:52 | NUR ---
RADIOLOGY DEPT., CHEST X-RAY DONE.-P.DYE
--- NOTE | 2020-01-14 09:56 | NUR ---
*-* NO INSURANCE INFORMATION ON THE BAR UNABLE TO SEND CLINICALS OR REVIEWS *-*
[2020-01-14] MEDS ORDERED: Vancomycin 1 GM in NS 275 ML IVPB SCH (10:00)
--- NOTE | 2020-01-14 10:48 | NUR ---
RD ASSESSMENT & RECOMMENDATIONS SEE CARE ACTIVITY FOR COMPLETE ASSESSMENT DAILY ESTIMATED NEEDS: Needs based on DM, 62kg abw 25-30 kcals/kg 9530-0088 total kcals 1-1.5 g protein/kg 62-93 g total protein 25-30 mL/kg 0780-1689 total fluid mLs NUTRITION DIAGNOSIS: 1) Decreased sodium needs r/t renal dysfunction as evidenced by pt w/ VENANCIO, elev BUN (66), elev Creat (2.3), w/ elev phos and K on adm. CURRENT DIET:CCHO MED, cardiac, renal PO DIET RECOMMENDATIONS: CCHO LOW/ LOW NA diet ADDITIONAL RECOMMENDATIONS: 1) Continue to monitor RENAL LABS and need for dietary restriction K and phos elev on adm, now wnl 2) add snacks in b/w meals 3) Encourage HS snack and monitor for hypoglycemia 4) Rec stool softeners w/ constipation 5) Glucerna qdaily w/ current variable po intake 6) Obtain an accurate wt
[2020-01-14 12:00] VITALS: BP 139/68
--- NOTE | 2020-01-14 12:04 | General Progress Note ---
Assessment/Plan Status: stable, progressing Assessment/Plan: 1. Iron-deficiency anemia. 2. Possible cirrhosis. 3. Hypoalbuminemia. 4. Obesity. 5. Chronic renal disease/acute renal failure. 6. Hypertension. 7. Diabetes. 8. Hypothyroidism. s/p one unit PRBC fu stool ob positive x2 d/w the family, plan EGD and colonoscopy for tomorrow ABS us reviewed most likely has NAFLD fu hepatitis panel Subjective ROS Limited/Unobtainable: Yes Allergies: Coded Allergies: No Known Allergies (Unverified , 10/10/19) Objective Last 24 Hour Vital Signs Date Time Temp Pulse Resp B/P (MAP) Pulse Ox O2 Delivery O2 Flow Rate FiO2 01/14/20 11:43 139/68 01/14/20 09:21 60 160/74 01/14/20 08:00 98.1 60 19 160/74 (102) 100 01/14/20 07:00 60 18 100 Room Air 21 01/14/20 05:58 153/78 01/14/20 04:00 96.9 76 22 153/78 (103) 98 01/14/20 04:00 84 01/14/20 00:00 97.7 72 24 108/36 (60) 98 01/14/20 00:00 69 01/13/20 23:26 108/36 01/13/20 22:49 Nasal Cannula 2.0 01/13/20 21:00 Nasal Cannula 2.0 01/13/20 21:00 Room Air 01/13/20 20:06 74 20 96 Room Air 21 01/13/20 20:00 99.5 73 22 97/56 (70) 99 01/13/20 18:07 133/59 01/13/20 16:30 98.2 72 18 133/59 (83) 96 Intake and Output 01/13/20 01/14/20 19:00 07:00 Intake Total 240 ml 120 ml Output Total 1500 ml Balance 240 ml -1380 ml Intake Oral 240 ml 120 ml Output Urine Total 1500 ml # Bowel Movements 3 5 Laboratory Tests 01/13/20 17:23: Arterial Blood pH 7.439, Arterial Blood Partial Pressure CO2 28.6L, Arterial Blood Partial Pressure O2 94.9, Arterial Blood HCO3 18.9L, Arterial Blood Oxygen Saturation 96.6, Arterial Blood Base Excess -4.5L, Geoffrey Test Positive 01/14/20 05:55: White Blood Count 6.7, Red Blood Count 3.31L, Hemoglobin 8.8L, Hematocrit 28.1L , Mean Corpuscular Volume 85, Mean Corpuscular Hemoglobin 26.7L, Mean Corpuscular Hemoglobin Concent 31.5L, Red Cell Distribution Width 19.2H, Platelet Count 280, Mean Platelet Volume 6.4L, Neutrophils (%) (Auto) 70.1, Lymphocytes (%) (Auto) 18.7L, Monocytes (%) (Auto) 8.8, Eosinophils (%) (Auto) 1.6, Basophils (%) (Auto) 0.8, PTT Mixing Study [Pending], APTT Patient/Control Mix [Pending], Mix PTT Incubation Time [Pending], Mix PTT Normal/Saline 1:1 Immediate [Pending], Thrombin Time Normal Plasma [Pending], Sodium Level 148H, Potassium Level 3.1L, Chloride Level 111H, Carbon Dioxide Level 19L, Anion Gap 18H, Blood Urea Nitrogen 66H, Creatinine 2.3H, Estimat Glomerular Filtration Rate 21.1, Glucose Level 93, Uric Acid 9.8H, Calcium Level 8.9, Phosphorus Level 4.9, Magnesium Level 2.5H, Total Bilirubin 0.7, Aspartate Amino Transf ( AST/SGOT) 30, Alanine Aminotransferase (ALT/SGPT) 41, Alkaline Phosphatase 284H , Troponin I 0.080H, C-Reactive Protein, Quantitative 5.9H, Pro-B-Type Natriuretic Peptide 36247A, Total Protein 7.1, Albumin 3.0L, Globulin 4.1, Albumin/Globulin Ratio 0.7L, Random Vancomycin Level 15.1 Height (Feet): 5 Height (Inches): 2.00 Weight (Pounds): 204 General Appearance: alert EENT: normal ENT inspection Neck: supple Cardiovascular: normal rate Respiratory/Chest: decreased breath sounds Abdomen: normal bowel sounds, non tender, soft Extremities: non-tender Francois Gunn MD Jan 14, 2020 12:04
--- NOTE | 2020-01-14 12:07 | Pulmonology Progress Note ---
Assessment/Plan Problems: (1) Pleural effusion (2) Renal failure (ARF), acute on chronic (3) Hypoglycemia (4) Anemia (5) Moderate pulmonary arterial systolic hypertension (6) Cardiac left ventricular ejection fraction greater than 40 percent (7) Grade I diastolic dysfunction (8) History of hypertension (9) Diabetic nephropathy Assessment/Plan cxr reviewed, pt needs thoracentesis watch bun/creatinine all reviewed check cultures OB positive, will need GI w/u Subjective ROS Limited/Unobtainable: No Interval Events: doing better Allergies: Coded Allergies: No Known Allergies (Unverified , 10/10/19) Objective Last 24 Hour Vital Signs Date Time Temp Pulse Resp B/P (MAP) Pulse Ox O2 Delivery O2 Flow Rate FiO2 01/14/20 11:43 139/68 01/14/20 09:21 60 160/74 01/14/20 08:00 98.1 60 19 160/74 (102) 100 01/14/20 07:00 60 18 100 Room Air 21 01/14/20 05:58 153/78 01/14/20 04:00 96.9 76 22 153/78 (103) 98 01/14/20 04:00 84 01/14/20 00:00 97.7 72 24 108/36 (60) 98 01/14/20 00:00 69 01/13/20 23:26 108/36 01/13/20 22:49 Nasal Cannula 2.0 01/13/20 21:00 Nasal Cannula 2.0 01/13/20 21:00 Room Air 01/13/20 20:06 74 20 96 Room Air 21 01/13/20 20:00 99.5 73 22 97/56 (70) 99 01/13/20 18:07 133/59 01/13/20 16:30 98.2 72 18 133/59 (83) 96 Intake and Output 01/13/20 01/14/20 19:00 07:00 Intake Total 240 ml 120 ml Output Total 1500 ml Balance 240 ml -1380 ml Intake Oral 240 ml 120 ml Output Urine Total 1500 ml # Bowel Movements 3 5 General Appearance: WD/WN HEENT: normocephalic, atraumatic Respiratory/Chest: chest wall non-tender, lungs clear Breasts: no masses Cardiovascular: normal peripheral pulses Abdomen: normal bowel sounds, soft, non tender Genitourinary: normal external genitalia Extremities: no cyanosis Skin: no rash 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 Microbiology Date/Time Source Procedure Growth Status 01/11/20 15:15 Blood Blood Culture - Final Staphylococcus Haemolyticus Complete 01/11/20 15:00 Blood Blood Culture - Final Staphylococcus Haemolyticus Complete Laboratory Tests 01/13/20 17:23: Arterial Blood pH 7.439, Arterial Blood Partial Pressure CO2 28.6L, Arterial Blood Partial Pressure O2 94.9, Arterial Blood HCO3 18.9L, Arterial Blood Oxygen Saturation 96.6, Arterial Blood Base Excess -4.5L, Geoffrey Test Positive 01/14/20 05:55: White Blood Count 6.7, Red Blood Count 3.31L, Hemoglobin 8.8L, Hematocrit 28.1L , Mean Corpuscular Volume 85, Mean Corpuscular Hemoglobin 26.7L, Mean Corpuscular Hemoglobin Concent 31.5L, Red Cell Distribution Width 19.2H, Platelet Count 280, Mean Platelet Volume 6.4L, Neutrophils (%) (Auto) 70.1, Lymphocytes (%) (Auto) 18.7L, Monocytes (%) (Auto) 8.8, Eosinophils (%) (Auto) 1.6, Basophils (%) (Auto) 0.8, PTT Mixing Study [Pending], APTT Patient/Control Mix [Pending], Mix PTT Incubation Time [Pending], Mix PTT Normal/Saline 1:1 Immediate [Pending], Thrombin Time Normal Plasma [Pending], Sodium Level 148H, Potassium Level 3.1L, Chloride Level 111H, Carbon Dioxide Level 19L, Anion Gap 18H, Blood Urea Nitrogen 66H, Creatinine 2.3H, Estimat Glomerular Filtration Rate 21.1, Glucose Level 93, Uric Acid 9.8H, Calcium Level 8.9, Phosphorus Level 4.9, Magnesium Level 2.5H, Total Bilirubin 0.7, Aspartate Amino Transf ( AST/SGOT) 30, Alanine Aminotransferase (ALT/SGPT) 41, Alkaline Phosphatase 284H , Troponin I 0.080H, C-Reactive Protein, Quantitative 5.9H, Pro-B-Type Natriuretic Peptide [id number], Total Protein 7.1, Albumin 3.0L, Globulin 4.1, Albumin/Globulin Ratio 0.7L, Random Vancomycin Level 15.1 Current Medications Medications (Trade) Dose Ordered Sig/Braeden Route PRN Reason Start Time Stop Time Status Last Admin Dose Admin Acetaminophen (Tylenol) 650 mg Q4H PRN ORAL fever 01/11/20 18:00 02/10/20 17:59 Albuterol/ Ipratropium (Albuterol/ Ipratropium) 3 ml Q6H PRN HHN dyspnea 01/11/20 18:00 01/16/20 17:59 01/13/20 03:42 Allopurinol (allopurinoL) 300 mg DAILY ORAL 01/12/20 10:15 02/11/20 10:14 01/14/20 09:20 Amlodipine Besylate (Norvasc) 5 mg DAILY ORAL 01/12/20 09:00 02/11/20 08:59 01/14/20 09:21 Atorvastatin Calcium (Lipitor) 80 mg QHS ORAL 01/11/20 21:00 04/10/20 20:59 01/13/20 20:37 Cefepime HCl 1 gm/ Dextrose 55 ml @ 110 mls/hr Q24H IVPB 01/13/20 13:00 01/20/20 12:59 01/13/20 13:08 Clonidine HCl (Catapres Tab) 0.1 mg Q4H PRN ORAL For High Blood Pressure 01/11/20 18:00 04/10/20 17:59 Dextrose (Dextrose 50%) 25 ml Q30M PRN IV Hypoglycemia 01/11/20 18:00 04/10/20 17:59 Dextrose (Dextrose 50%) 50 ml Q30M PRN IV Hypoglycemia 01/11/20 18:00 04/10/20 17:59 Docusate Sodium (Colace) 100 mg TID ORAL 01/11/20 18:00 02/10/20 17:59 01/14/20 09:20 Epoetin Shlomo (Epoetin Shlomo-EPBX(NON ESRD)) 10,000 unit TUE-TUE-TUE SUBQ 01/14/20 21:00 04/13/20 20:59 Hydralazine HCl (Apresoline) 25 mg Q6HR ORAL 01/13/20 12:00 04/12/20 11:59 01/14/20 11:43 Insulin Aspart (NovoLOG) BEFORE MEALS AND HS SUBQ 01/11/20 21:00 04/10/20 20:59 01/13/20 21:04 Iron Sucrose 100 mg/Sodium Chloride 60 ml @ 240 mls/hr BEDTIME IV 01/13/20 21:00 01/17/20 21:14 01/13/20 20:37 Levothyroxine Sodium (Synthroid) 88 mcg ACBREAKFAST ORAL 01/15/20 06:30 02/11/20 06:29 Olanzapine (ZyPREXA) 2.5 mg BEDTIME ORAL 01/13/20 23:15 02/27/20 23:14 01/13/20 23:56 Ondansetron HCl (Zofran) 4 mg Q6H PRN IVP Nausea & Vomiting 01/11/20 18:00 02/10/20 17:59 Pantoprazole (Protonix) 40 mg EVERY 12 HOURS ORAL 01/11/20 21:00 02/10/20 20:59 01/14/20 09:20 Polyethylene Glycol (Miralax) 17 gm HSPRN PRN ORAL Constipation 01/11/20 21:00 02/10/20 20:59 01/13/20 21:02 Potassium Chloride (K-Dur) 40 meq TWICE A DAY ORAL 01/14/20 11:00 04/13/20 10:59 01/14/20 11:42 Vancomycin HCl (Vanco rx to dose) 1 ea DAILY PRN MISC Per rx protocol 01/13/20 09:15 02/12/20 09:14 Vancomycin HCl 1 gm/Sodium Chloride 275 ml @ 183.708 mls/hr ONCE IVPB 01/14/20 10:00 01/14/20 12:00 01/14/20 10:52 Zolpidem Tartrate (Ambien) 5 mg HSPRN PRN ORAL Insomnia 01/11/20 21:00 01/18/20 20:59 Tiana Cool MD Jan 14, 2020 12:07
--- NOTE | 2020-01-14 12:19 | NUR ---
CASE MANAGEMENT:REVIEW 69YR OLD FEMALE BIBA FROM HOME CC: HYPOGLYCEMIA SI:AC/CHR RENAL FAILURE. HYPOGLYCEMIA. PLEURAL EFFUSION. ANEMIA 98.2 45 20 131/63 94% ON RA H/H-7.7/24.9 K+5.7 BUN+85 CR+2.7 IS: IV LEVAQUIN X1 IVF@100/HR KAYEXALATE PO IV ALBUMIN : TO TELEMETRY 01/13/20 SI: 99.5 73 22 97/56 96% ON 2L/NC H/H-7.3/23.4 BUN+85 CR+2.5 IS: TRANSFUSE 1 UNIT PRBC'S IVF@75/HR IV VENOFER QHS IV CEFEPIME Q24 HYDRALAZINE PO Q6HRS NORVASC PO QD SS INSULIN AC+HS : TELEMETRY STATUS DCP: PATIENT IS FROM HOME PLAN: HEP PANEL DRAWN
--- NOTE | 2020-01-14 12:25 | Nephrology Progress Note ---
Assessment/Plan Problem List: (1) Renal failure (ARF), acute on chronic (2) Diabetes mellitus (3) Hypoglycemia (4) Hyperkalemia (5) Diabetic nephropathy Assessment Renal failure (ARF), acute on chronic Hyperkalemia Hypoglycemia Anemia Pleural effusion Morbid obesity Plan Chan catheter Stop IV fluid and start diuretics Add hydralazine for afterload reduction Monitor 24-hour urine collection for total protein 2D echocardiogram ejection fraction is reported to 50% Kidney ultrasound noted Anemia work-up leading to low iron intravenous iron ordered As needed Kayexalate for high potassium Urine studies Keep blood pressure and blood sugar in check Monitor renal parameters Subjective ROS Limited/Unobtainable: No Constitutional: Reports: malaise, weakness Objective Objective Last 24 Hour Vital Signs Date Time Temp Pulse Resp B/P (MAP) Pulse Ox O2 Delivery O2 Flow Rate FiO2 01/14/20 11:43 139/68 01/14/20 09:21 60 160/74 01/14/20 08:00 98.1 60 19 160/74 (102) 100 01/14/20 07:00 60 18 100 Room Air 21 01/14/20 05:58 153/78 01/14/20 04:00 96.9 76 22 153/78 (103) 98 01/14/20 04:00 84 01/14/20 00:00 97.7 72 24 108/36 (60) 98 01/14/20 00:00 69 01/13/20 23:26 108/36 01/13/20 22:49 Nasal Cannula 2.0 01/13/20 21:00 Nasal Cannula 2.0 01/13/20 21:00 Room Air 01/13/20 20:06 74 20 96 Room Air 21 01/13/20 20:00 99.5 73 22 97/56 (70) 99 01/13/20 18:07 133/59 01/13/20 16:30 98.2 72 18 133/59 (83) 96 Intake and Output 01/13/20 01/14/20 19:00 07:00 Intake Total 240 ml 120 ml Output Total 1500 ml Balance 240 ml -1380 ml Intake Oral 240 ml 120 ml Output Urine Total 1500 ml # Bowel Movements 3 5 Laboratory Tests 01/13/20 17:23: Arterial Blood pH 7.439, Arterial Blood Partial Pressure CO2 28.6L, Arterial Blood Partial Pressure O2 94.9, Arterial Blood HCO3 18.9L, Arterial Blood Oxygen Saturation 96.6, Arterial Blood Base Excess -4.5L, Geoffrey Test Positive 01/14/20 05:55: White Blood Count 6.7, Red Blood Count 3.31L, Hemoglobin 8.8L, Hematocrit 28.1L , Mean Corpuscular Volume 85, Mean Corpuscular Hemoglobin 26.7L, Mean Corpuscular Hemoglobin Concent 31.5L, Red Cell Distribution Width 19.2H, Platelet Count 280, Mean Platelet Volume 6.4L, Neutrophils (%) (Auto) 70.1, Lymphocytes (%) (Auto) 18.7L, Monocytes (%) (Auto) 8.8, Eosinophils (%) (Auto) 1.6, Basophils (%) (Auto) 0.8, PTT Mixing Study [Pending], APTT Patient/Control Mix [Pending], Mix PTT Incubation Time [Pending], Mix PTT Normal/Saline 1:1 Immediate [Pending], Thrombin Time Normal Plasma [Pending], Sodium Level 148H, Potassium Level 3.1L, Chloride Level 111H, Carbon Dioxide Level 19L, Anion Gap 18H, Blood Urea Nitrogen 66H, Creatinine 2.3H, Estimat Glomerular Filtration Rate 21.1, Glucose Level 93, Uric Acid 9.8H, Calcium Level 8.9, Phosphorus Level 4.9, Magnesium Level 2.5H, Total Bilirubin 0.7, Aspartate Amino Transf ( AST/SGOT) 30, Alanine Aminotransferase (ALT/SGPT) 41, Alkaline Phosphatase 284H , Troponin I 0.080H, C-Reactive Protein, Quantitative 5.9H, Pro-B-Type Natriuretic Peptide [id number], Total Protein 7.1, Albumin 3.0L, Globulin 4.1, Albumin/Globulin Ratio 0.7L, Random Vancomycin Level 15.1 Height (Feet): 5 Height (Inches): 2.00 Weight (Pounds): 204 General Appearance: no apparent distress Cardiovascular: normal rate Respiratory/Chest: decreased breath sounds Abdomen: distended Genitourinary/Rectal: other - Has a Chan catheter Jay Severino MD Jan 14, 2020 12:25
--- NOTE | 2020-01-14 12:45 | Consultation ---
History of Present Illness General Date patient seen: Jan 14, 2020 Time patient seen: 12:36 Chief Complaint: Abnormal Labs Referring physician: Dr King Reason for Consultation: in hospital management Present Illness HPI This is a 69-year-old female,who was admitted for hypoglycemic, was found to have positive blood cx, for CoNS and ID Cons was requested for eval of the patient REVIEW OF SYSTEMS: No shortness of breath. No nausea,no vomiting, or diarrhea., no cough PAST MEDICAL HISTORY: CKD , diabetes, hypertension. PAST SURGICAL HISTORY: Heart surgery. ALLERGIES: Denies. MEDICATION: IV Vanco SOCIAL HISTORY: No smoking. No alcohol. No intravenous drug abuse. FAMILY HISTORY: Noncontributory Allergies: Coded Allergies: No Known Allergies (Unverified , 10/10/19) Medication History Scheduled Albuterol Sulfate (Ventolin Hfa), 2 PUFFS INH EVERY 6 HOURS, (Reported) Amlodipine Besylate* (Amlodipine Besylate*), 5 MG ORAL DAILY, (Reported) Atorvastatin (Lipitor), 80 MG ORAL DAILY, (Reported) Atorvastatin Calcium* (Atorvastatin Calcium*), Unknown Dose ORAL BEDTIME, ( Reported) Benazepril Hcl* (Benazepril Hcl*), 40 MG ORAL DAILY, (Reported) Docusate Sodium (Docusate Sodium), 100 MG ORAL DAILY, (Reported) Gabapentin* (Gabapentin*), 300 MG ORAL DAILY, (Reported) Levothyroxine Sodium* (Synthroid*), 75 MCG ORAL DAILY, (Reported) Pantoprazole* (Pantoprazole*), 40 MG ORAL EVERY 12 HOURS, (Reported) Tramadol Hcl (Ultram*), 50 MG ORAL Q4H, (Reported) Miscellaneous Medications Acetaminophen (Mapap), 500 MG PO, (Reported) Betamet Diprop/Prop Gly (Betamethasone Dp Aug 0.05% Crm), 15 GM TP, (Reported) Insulin Aspart (Novolog), 60, (Reported) Metformin Hcl* (Metformin Hcl*), Unknown Dose ORAL, (Reported) Discontinued Medications Allopurinol* (Allopurinol*), 300 MG ORAL DAILY, (Reported) Discontinued Reason: MD discontinued med Azithromycin* (Zithromax*), 250 MG ORAL DAILY, (Reported) Discontinued Reason: MD discontinued med Furosemide* (Lasix*), 20 MG ORAL DAILY, (Reported) Discontinued Reason: Medication dose changed Furosemide* (Lasix*), 40 MG ORAL DAILY, (Reported) Discontinued Reason: MD discontinued med Hydralazine Hcl* (Hydralazine Hcl*), 10 MG ORAL EVERY 8 HOURS, (Reported) Discontinued Reason: MD discontinued med Hydrochlorothiazide* (Hydrochlorothiazide*), Unknown Dose ORAL, (Reported) Discontinued Reason: MD discontinued med Hydrochlorothiazide* (Hydrochlorothiazide*), 12.5 MG ORAL DAILY, (Reported) Discontinued Reason: MD discontinued med Isosorbide Dinitrate* (Isordil*), 30 MG ORAL TWICE A DAY, (Reported) Discontinued Reason: MD discontinued med Linaclotide (Linzess), 145 MCG PO, (Reported) Discontinued Reason: MD discontinued med Lisinopril (Lisinopril*), Unknown Dose ORAL, (Reported) Discontinued Reason: MD discontinued med Metoprolol Succinate* (Metoprolol Succinate*), 100 MG ORAL DAILY, (Reported) Discontinued Reason: MD discontinued med Nitroglycerin 0.4MG table* (Nitroglycerin*), 0.4 MG SL .Q5MIN X 3 DOSES PRN for CHEST PAIN, (Reported) Discontinued Reason: MD discontinued med Oxybutynin Chloride (Ditropan Xl), 10 MG ORAL DAILY, (Reported) Discontinued Reason: MD discontinued med Patient History Healthcare decision maker Resuscitation status Full Code Advanced Directive on File Physical Exam Lines, tubes and drains: central line HEENT: atraumatic Neck: supple Respiratory/Chest: no respiratory distress Cardiovascular/Chest: normal rate Extremities: normal range of motion Skin Exam: normal pigmentation Neurologic: alert, oriented x 3 Last 24 Hour Vital Signs Date Time Temp Pulse Resp B/P (MAP) Pulse Ox O2 Delivery O2 Flow Rate FiO2 01/14/20 11:43 139/68 01/14/20 09:21 60 160/74 01/14/20 08:00 98.1 60 19 160/74 (102) 100 01/14/20 07:00 60 18 100 Room Air 21 01/14/20 05:58 153/78 01/14/20 04:00 96.9 76 22 153/78 (103) 98 01/14/20 04:00 84 01/14/20 00:00 97.7 72 24 108/36 (60) 98 01/14/20 00:00 69 01/13/20 23:26 108/36 01/13/20 22:49 Nasal Cannula 2.0 01/13/20 21:00 Nasal Cannula 2.0 01/13/20 21:00 Room Air 01/13/20 20:06 74 20 96 Room Air 21 01/13/20 20:00 99.5 73 22 97/56 (70) 99 01/13/20 18:07 133/59 01/13/20 16:30 98.2 72 18 133/59 (83) 96 Intake and Output 01/13/20 01/14/20 19:00 07:00 Intake Total 240 ml 120 ml Output Total 1500 ml Balance 240 ml -1380 ml Intake Oral 240 ml 120 ml Output Urine Total 1500 ml # Bowel Movements 3 5 Laboratory Tests Test 01/13/20 17:23 01/14/20 05:55 Arterial Blood pH 7.439 (7.350-7.450) Arterial Blood Partial Pressure CO2 28.6 mmHg (35.0-45.0) L Arterial Blood Partial Pressure O2 94.9 mmHg (75.0-100.0) Arterial Blood HCO3 18.9 mmol/L (22.0-26.0) L Arterial Blood Oxygen Saturation 96.6 % (95-100) Arterial Blood Base Excess -4.5 (-2-2) L Geoffrey Test Positive White Blood Count 6.7 K/UL (4.8-10.8) Red Blood Count 3.31 M/UL (4.20-5.40) L Hemoglobin 8.8 G/DL (12.0-16.0) L Hematocrit 28.1 % (37.0-47.0) L Mean Corpuscular Volume 85 FL (80-99) Mean Corpuscular Hemoglobin 26.7 PG (27.0-31.0) L Mean Corpuscular Hemoglobin Concent 31.5 G/DL (32.0-36.0) L Red Cell Distribution Width 19.2 % (11.6-14.8) H Platelet Count 280 K/UL (150-450) Mean Platelet Volume 6.4 FL (6.5-10.1) L Neutrophils (%) (Auto) 70.1 % (45.0-75.0) Lymphocytes (%) (Auto) 18.7 % (20.0-45.0) L Monocytes (%) (Auto) 8.8 % (1.0-10.0) Eosinophils (%) (Auto) 1.6 % (0.0-3.0) Basophils (%) (Auto) 0.8 % (0.0-2.0) PTT Mixing Study Pending APTT Patient/Control Mix Pending Mix PTT Incubation Time Pending Mix PTT Normal/Saline 1:1 Immediate Pending Thrombin Time Normal Plasma Pending Sodium Level 148 MMOL/L (136-145) H Potassium Level 3.1 MMOL/L (3.5-5.1) L Chloride Level 111 MMOL/L (98-107) H Carbon Dioxide Level 19 MMOL/L (21-32) L Anion Gap 18 mmol/L (5-15) H Blood Urea Nitrogen 66 mg/dL (7-18) H Creatinine 2.3 MG/DL (0.55-1.30) H Estimat Glomerular Filtration Rate 21.1 mL/min (>60) Glucose Level 93 MG/DL (74-106) Uric Acid 9.8 MG/DL (2.6-7.2) H Calcium Level 8.9 MG/DL (8.5-10.1) Phosphorus Level 4.9 MG/DL (2.5-4.9) Magnesium Level 2.5 MG/DL (1.8-2.4) H Total Bilirubin 0.7 MG/DL (0.2-1.0) Aspartate Amino Transf (AST/SGOT) 30 U/L (15-37) Alanine Aminotransferase (ALT/SGPT) 41 U/L (12-78) Alkaline Phosphatase 284 U/L (46-116) H Troponin I 0.080 ng/mL (0.000-0.056) C-Reactive Protein, Quantitative 5.9 mg/dL (0.00-0.90) H Pro-B-Type Natriuretic Peptide 01236 pg/mL (0-125) H Total Protein 7.1 G/DL (6.4-8.2) Albumin 3.0 G/DL (3.4-5.0) L Globulin 4.1 g/dL Albumin/Globulin Ratio 0.7 (1.0-2.7) L Random Vancomycin Level 15.1 ug/mL Height (Feet): 5 Height (Inches): 2.00 Weight (Pounds): 204 Medications Current Medications Medications (Trade) Dose Ordered Sig/Braeden Route PRN Reason Start Time Stop Time Status Last Admin Dose Admin Acetaminophen (Tylenol) 650 mg Q4H PRN ORAL fever 01/11/20 18:00 02/10/20 17:59 Albuterol/ Ipratropium (Albuterol/ Ipratropium) 3 ml Q6H PRN HHN dyspnea 01/11/20 18:00 01/16/20 17:59 01/13/20 03:42 Allopurinol (allopurinoL) 300 mg DAILY ORAL 01/12/20 10:15 02/11/20 10:14 01/14/20 09:20 Amlodipine Besylate (Norvasc) 5 mg BID ORAL 01/14/20 18:00 02/11/20 08:59 Aspirin (ASA) 81 mg DAILY ORAL 01/14/20 12:30 02/28/20 12:29 Atorvastatin Calcium (Lipitor) 80 mg QHS ORAL 01/11/20 21:00 04/10/20 20:59 01/13/20 20:37 Cefepime HCl 1 gm/ Dextrose 55 ml @ 110 mls/hr Q24H IVPB 01/13/20 13:00 01/20/20 12:59 01/13/20 13:08 Clonidine HCl (Catapres Tab) 0.1 mg Q4H PRN ORAL For High Blood Pressure 01/11/20 18:00 04/10/20 17:59 Dextrose (Dextrose 50%) 25 ml Q30M PRN IV Hypoglycemia 01/11/20 18:00 04/10/20 17:59 Dextrose (Dextrose 50%) 50 ml Q30M PRN IV Hypoglycemia 01/11/20 18:00 04/10/20 17:59 Docusate Sodium (Colace) 100 mg TID ORAL 01/11/20 18:00 02/10/20 17:59 01/14/20 09:20 Epoetin Shlomo (Epoetin Shlomo-EPBX(NON ESRD)) 10,000 unit TUE-WED-TUE SUBQ 01/14/20 21:00 04/13/20 20:59 Hydralazine HCl (Apresoline) 50 mg Q8HR ORAL 01/14/20 14:00 04/12/20 11:59 Insulin Aspart (NovoLOG) BEFORE MEALS AND HS SUBQ 01/11/20 21:00 04/10/20 20:59 01/13/20 21:04 Iron Sucrose 100 mg/Sodium Chloride 60 ml @ 240 mls/hr BEDTIME IV 01/13/20 21:00 01/17/20 21:14 01/13/20 20:37 Isosorbide Dinitrate (Isordil) 10 mg Q8HR ORAL 01/14/20 14:00 02/13/20 13:59 Levothyroxine Sodium (Synthroid) 88 mcg ACBREAKFAST ORAL 01/15/20 06:30 02/11/20 06:29 Linaclotide (Linzess) 290 mcg BEFORE BREAKFAST ORAL 01/15/20 06:30 04/14/20 06:29 Metolazone (Zaroxolyn) 10 mg DAILY ORAL 01/14/20 12:26 02/13/20 12:25 Olanzapine (ZyPREXA) 2.5 mg BEDTIME ORAL 01/13/20 23:15 02/27/20 23:14 01/13/20 23:56 Ondansetron HCl (Zofran) 4 mg Q6H PRN IVP Nausea & Vomiting 01/11/20 18:00 02/10/20 17:59 Pantoprazole (Protonix) 40 mg EVERY 12 HOURS ORAL 01/11/20 21:00 02/10/20 20:59 01/14/20 09:20 Polyethylene Glycol (Miralax) 17 gm HSPRN PRN ORAL Constipation 01/11/20 21:00 02/10/20 20:59 01/13/20 21:02 Polyethylene Glycol/ Electrolytes (Nulytely) 4,000 ml ONCE ORAL 01/14/20 14:00 01/14/20 23:59 Potassium Chloride (K-Dur) 40 meq TWICE A DAY ORAL 01/14/20 11:00 04/13/20 10:59 01/14/20 11:42 Vancomycin HCl (Vanco rx to dose) 1 ea DAILY PRN MISC Per rx protocol 01/13/20 09:15 02/12/20 09:14 Zolpidem Tartrate (Ambien) 5 mg HSPRN PRN ORAL Insomnia 01/11/20 21:00 01/18/20 20:59 Assessment/Plan Assessment/Plan: ASSESSMENT: +ve blood cx: CoNS Afebrile nl WBC Pleural effusion Chest pain. Renal failure. Anemia. Diabetes. Hypertension. Malnutrition. PLAN: Cont pt on Zyvox and DC IV Vanco # 2 Monitor CBC, CMP Rpt blood cx x 2 Monitor CXR 2DAyush Barboza MD Jan 14, 2020 12:45
--- NOTE | 2020-01-14 12:49 | NUR ---
INSURANCE CLINICALS AND REVIEWS FAXED TO ARIN ALVAREZ T: [phone] F: [phone] [facility] [id number]
--- NOTE | 2020-01-14 13:15 | Geriatric Medicine Prog Note ---
DATE: 01/13/2020 NOTE: POOR AUDIO SUBJECTIVE: The patient feels comfortable today. OBJECTIVE: VITAL SIGNS: Blood pressure 132/59, pulse 72, respiratory rate 18, . . Ventura Bueno M.D. DR: GIA JOB#: [id number] CC:
--- NOTE | 2020-01-14 13:15 | Consultation ---
DATE OF CONSULTATION: 01/12/2020 ENDOCRINOLOGY CONSULTATION CONSULTING PHYSICIAN: Ventura Bueno M.D. REFERRING PHYSICIAN: Dyllan King D.O. REASON FOR CONSULTATION: I was asked to see this 69-year-old female by Dr. Dyllan King in endocrinology consultation for management . for several months 12 units q.h.s and 4 units t.i.d. The patient currently . The patient . She received . PHYSICAL EXAMINATION: GENERAL: The patient is in no acute distress. VITAL SIGNS: Blood pressure 132/72, pulse 72, respirations 14, and temperature . HEAD AND NECK: Unremarkable. LUNGS: Clear. HEART: Regular. ABDOMEN: Obese. Bowel sounds present. EXTREMITIES: No edema. NEUROLOGICAL: Cranial nerves II through XII are grossly intact. Toes are downgoing to plantar stimulation. LABORATORY DATA: Glucose 162, BUN , creatinine . ASSESSMENT: 1. in fair control. 2. Hypertension. 3. . 4. Diabetes mellitus. PLAN: Repeat BMP . Ventura Bueno M.D. DR: JACQUIE JOB#: [id number] CC:
--- NOTE | 2020-01-14 13:25 | NUR ---
CASE MANAGEMENT:REVIEW 01/14/20 SI: AC/CHR RENAL FAILURE PLEURAL EFFUSION. ANEMIA 97.7 72 24 108/36 98% ON 2L/NC IS: IV VANCOMYCIN X1 IV VENOFER QHS EPOETIN SQ MWF K-DUR PO BID ZYPREXA PO QHS NORVASC PO QD PROTONIX PO Q12 : TELEMETRY STATUS DCP: FROM HOME
[2020-01-14 13:31] LABS: INR 1.2 (0.9-1.1)
--- NOTE | 2020-01-14 13:35 | Diagnostic Imaging Report ---
Indication: Dyspnea Comparison: 01/13/2020 A single view chest radiograph was obtained. Findings: There is evidence of pulmonary edema with pulmonary vascular congestion and interstitial edema. There is a right pleural effusion again noted. The heart is enlarged. IMPRESSION: Worsening pulmonary edema currently moderate to severe
[2020-01-14] MEDS ORDERED: Nulytely 4L ORAL SCH (14:00)
[2020-01-14] MEDS: Aspirin Baby 81mg ORAL SCH (14:58)
[2020-01-14] MEDS: HydrALAZINE 50mg tab ORAL SCH ×2 (14:59→22:06)
[2020-01-14] MEDS: Cefepime HCl 1 GM in D5W 55 ML IVPB SCH (15:00)
[2020-01-14 16:00] VITALS: BP 139/68
--- NOTE | 2020-01-14 19:35 | NUR ---
NURSE NOTES: Received pt and report from BHAVIN Perez. Observed pt resting in bed and watching television. Pt is A/Ox4. manager of investigations is in placed; pt is SR w/BBB. IV site intact, asymptomatic, and patent. Pt is currently prepping for a colonoscopy with 4L of Nulytely. Bed is in the lowest position and locked. Call light and beside table is within reach. No signs/symptoms of acute distress noted at this time. Will continue plan of care.
--- NOTE | 2020-01-14 19:45 | NUR ---
HAND-OFF: Report given to report given to Velma/rn pt in stable condition.
[2020-01-14 20:00] VITALS: BP 133/70
[2020-01-14] MEDS: OLANZapine 2.5mg tab ORAL SCH (20:49)
[2020-01-14] MEDS: Epoetin Alfa-EPBX (NON ESRD)10,000 unit/ml vial SUBQ SCH (20:49)
[2020-01-14] MEDS: Atorvastatin 80mg tab ORAL SCH (20:49)
[2020-01-14] MEDS: Iron Sucrose 100 MG in NS 55 ML IV SCH (20:51)
--- NOTE | 2020-01-14 23:32 | Psych Consult Progress Note ---
Psychiatry Progress Note Psychiatry Progress Note Subjective agitation confused Medications Current Medications Medications (Trade) Dose Ordered Sig/Braeden Route PRN Reason Start Time Stop Time Status Last Admin Dose Admin Acetaminophen (Tylenol) 650 mg Q4H PRN ORAL fever 01/11/20 18:00 02/10/20 17:59 Albuterol/ Ipratropium (Albuterol/ Ipratropium) 3 ml Q6H PRN HHN dyspnea 01/11/20 18:00 01/16/20 17:59 01/13/20 03:42 Allopurinol (allopurinoL) 300 mg DAILY ORAL 01/12/20 10:15 02/11/20 10:14 01/14/20 09:20 Amlodipine Besylate (Norvasc) 5 mg BID ORAL 01/14/20 18:00 02/11/20 08:59 Aspirin (ASA) 81 mg DAILY ORAL 01/14/20 12:30 02/28/20 12:29 01/14/20 14:58 Atorvastatin Calcium (Lipitor) 80 mg QHS ORAL 01/11/20 21:00 04/10/20 20:59 01/14/20 20:49 Cefepime HCl 1 gm/ Dextrose 55 ml @ 110 mls/hr Q24H IVPB 01/13/20 13:00 01/20/20 12:59 01/14/20 15:00 Clonidine HCl (Catapres Tab) 0.1 mg Q4H PRN ORAL For High Blood Pressure 01/11/20 18:00 04/10/20 17:59 Dextrose (Dextrose 50%) 25 ml Q30M PRN IV Hypoglycemia 01/11/20 18:00 04/10/20 17:59 Dextrose (Dextrose 50%) 50 ml Q30M PRN IV Hypoglycemia 01/11/20 18:00 04/10/20 17:59 Docusate Sodium (Colace) 100 mg TID ORAL 01/11/20 18:00 02/10/20 17:59 01/14/20 18:39 Epoetin Shlomo (Epoetin Shlomo-EPBX(NON ESRD)) 10,000 unit TUE-WED-TUE SUBQ 01/14/20 21:00 04/13/20 20:59 01/14/20 20:49 Hydralazine HCl (Apresoline) 50 mg Q8HR ORAL 01/14/20 14:00 04/12/20 11:59 01/14/20 22:06 Insulin Aspart (NovoLOG) BEFORE MEALS AND HS SUBQ 01/11/20 21:00 04/10/20 20:59 01/14/20 22:02 Iron Sucrose 100 mg/Sodium Chloride 60 ml @ 240 mls/hr BEDTIME IV 01/13/20 21:00 01/17/20 21:14 01/14/20 20:51 Isosorbide Dinitrate (Isordil) 10 mg Q8HR ORAL 01/14/20 14:00 02/13/20 13:59 01/14/20 22:06 Levothyroxine Sodium (Synthroid) 88 mcg ACBREAKFAST ORAL 01/15/20 06:30 02/11/20 06:29 Linaclotide (Linzess) 290 mcg BEFORE BREAKFAST ORAL 01/15/20 06:30 04/14/20 06:29 Linezolid 300 ml @ 300 mls/hr Q12H IVPB 01/14/20 15:00 01/21/20 14:59 01/14/20 16:12 Metolazone (Zaroxolyn) 10 mg DAILY ORAL 01/14/20 12:26 02/13/20 12:25 01/14/20 14:58 Olanzapine (ZyPREXA) 2.5 mg BEDTIME ORAL 01/13/20 23:15 02/27/20 23:14 01/14/20 20:49 Ondansetron HCl (Zofran) 4 mg Q6H PRN IVP Nausea & Vomiting 01/11/20 18:00 02/10/20 17:59 Pantoprazole (Protonix) 40 mg EVERY 12 HOURS ORAL 01/11/20 21:00 02/10/20 20:59 01/14/20 20:49 Polyethylene Glycol (Miralax) 17 gm HSPRN PRN ORAL Constipation 01/11/20 21:00 02/10/20 20:59 01/13/20 21:02 Polyethylene Glycol/ Electrolytes (Nulytely) 4,000 ml ONCE ORAL 01/14/20 14:00 01/14/20 23:59 01/14/20 16:12 Potassium Chloride (K-Dur) 40 meq TWICE A DAY ORAL 01/14/20 11:00 04/13/20 10:59 01/14/20 18:40 Zolpidem Tartrate (Ambien) 5 mg HSPRN PRN ORAL Insomnia 01/11/20 21:00 01/18/20 20:59 Neurological/Psychiatric: Reports: weakness Allergies: Coded Allergies: No Known Allergies (Unverified , 10/10/19) Objective Data Height (Feet): 5 Height (Inches): 2.00 Weight (Pounds): 204 Mental Status Exam - Mood: agitated Speech: clear Mental Status Exam - Thought P: confusion, disorganized Mental Status Exam - Suicidal: not present Additional Comments: alert, oriented times self and place. Mood is anxious. Affect is flat. Thought process, there is a paucity of thought content. Thought content, no suicidal or homicidal ideation. Cognition is impaired. Insight and judgment are impaired. Assessment/Plan [place] I: ASSESSMENT: [place] I Acute metabolic encephalopathy, rule out dementia. Status: stable, progressing Assessment/Plan: PLAN: 1. Continue to treat the underlying cause of encephalopathy. 2. Zyprexa p.r.n. 3. Continue to follow and readjust the medications. Aki Morris MD Jan 14, 2020 23:32
[2020-01-15] VITALS (11 sets, daily range): BP systolic 113–149; BP diastolic 56–89
[2020-01-15] MEDS: HydrALAZINE 50mg tab ORAL SCH ×3 (06:12→21:09)
[2020-01-15] MEDS: NovoLOG Insulin Flexpen SUBQ SCH ×4 (06:12→21:14)
--- NOTE | 2020-01-15 06:27 | General Progress Note ---
Assessment/Plan Problem List: (1) Hypothyroidism ICD Codes: E03.9 - Hypothyroidism, unspecified SNOMED: 52660766 (2) Diabetes mellitus ICD Codes: E11.9 - Type 2 diabetes mellitus without complications SNOMED: 98098366 (3) Diabetic nephropathy ICD Codes: E11.21 - Type 2 diabetes mellitus with diabetic nephropathy SNOMED: 627821639 (4) Hypoglycemia ICD Codes: E16.2 - Hypoglycemia, unspecified SNOMED: 895407599 Status: stable, progressing Assessment/Plan: no recurrence of hypoglycemia after dextrose was stopped - continue glucose monitoring without insulin coverage - continue to hold Metformin - hypoglycemia protocol in order TSH elevated on Levothyroxine 75 mcg daily - dosage increased to 88 mcg daily - repeat TSH, free T4 in 4 weeks Subjective Allergies: Coded Allergies: No Known Allergies (Unverified , 10/10/19) All Systems: reviewed and negative except above Subjective events noted glucose values are stable without hypoglycemia Item Value Date Time Bedside Blood Glucose 132 mg/dl H 01/15/20 0612 Bedside Blood Glucose 206 mg/dl H 01/14/20 2202 Bedside Blood Glucose 218 mg/dl H 01/14/20 1848 Bedside Blood Glucose 126 mg/dl H 01/14/20 1159 Bedside Blood Glucose 94 mg/dl 01/14/20 0549 Objective Last 24 Hour Vital Signs Date Time Temp Pulse Resp B/P (MAP) Pulse Ox O2 Delivery O2 Flow Rate FiO2 01/15/20 06:12 145/62 01/15/20 06:11 143/62 01/15/20 04:00 97.0 77 20 137/69 (91) 99 01/15/20 04:00 81 01/15/20 03:30 89 16 99 Room Air 21 01/15/20 00:00 77 01/15/20 00:00 97.3 80 20 117/81 (93) 99 01/14/20 22:06 141/68 01/14/20 22:06 141/68 01/14/20 21:00 Room Air 01/14/20 20:00 73 01/14/20 20:00 98.1 75 20 133/70 (91) 96 01/14/20 18:00 83 101/75 01/14/20 16:00 97.5 79 18 139/68 (91) 96 01/14/20 16:00 75 01/14/20 14:59 139/68 3/23/20 14:59 139/68 01/14/20 12:00 80 01/14/20 12:00 97.5 79 18 139/68 (91) 96 01/14/20 11:43 139/68 01/14/20 09:21 60 160/74 01/14/20 09:00 Room Air 01/14/20 08:00 86 01/14/20 08:00 98.1 60 19 160/74 (102) 100 01/14/20 07:00 60 18 100 Room Air 21 Intake and Output 01/14/20 01/15/20 19:00 07:00 Intake Total 140 ml Output Total 1800 ml 0 ml Balance -1660 ml 0 ml Intake Oral 140 ml Output Urine Total 1800 ml 0 ml # Voids 3 # Bowel Movements 2 1 Laboratory Tests 01/14/20 11:30: Prothrombin Time 12.9H, Prothromb Time International Ratio 1.2H, Activated Partial Thromboplast Time 25 01/15/20 05:35: White Blood Count [Pending], Red Blood Count [Pending], Hemoglobin [Pending], Hematocrit [Pending], Mean Corpuscular Volume [Pending], Mean Corpuscular Hemoglobin [Pending], Mean Corpuscular Hemoglobin Concent [Pending], Red Cell Distribution Width [Pending], Platelet Count [Pending], Mean Platelet Volume [ Pending], Neutrophils (%) (Auto) [Pending], Lymphocytes (%) (Auto) [Pending], Monocytes (%) (Auto) [Pending], Eosinophils (%) (Auto) [Pending], Basophils (%) (Auto) [Pending], Sodium Level [Pending], Potassium Level [Pending], Chloride Level [Pending], Carbon Dioxide Level [Pending], Blood Urea Nitrogen [Pending], Creatinine [Pending], Estimat Glomerular Filtration Rate [Pending], Glucose Level [Pending], Uric Acid [Pending], Calcium Level [Pending], Phosphorus Level [Pending], Magnesium Level [Pending], Total Bilirubin [Pending], Aspartate Amino Transf (AST/SGOT) [Pending], Alanine Aminotransferase (ALT/SGPT) [Pending] , Alkaline Phosphatase [Pending], C-Reactive Protein, Quantitative [Pending], Pro-B-Type Natriuretic Peptide [Pending], Total Protein [Pending], Albumin [ Pending], Globulin [Pending] Height (Feet): 5 Height (Inches): 2.00 Weight (Pounds): 204 General Appearance: no apparent distress Neck: normal alignment Cardiovascular: regular rhythm Respiratory/Chest: lungs clear Abdomen: normal bowel sounds Pelvis: normal external exam Objective Current Medications Medications (Trade) Dose Ordered Sig/Braeden Route PRN Reason Start Time Stop Time Status Last Admin Dose Admin Acetaminophen (Tylenol) 650 mg Q4H PRN ORAL fever 01/11/20 18:00 02/10/20 17:59 Albuterol/ Ipratropium (Albuterol/ Ipratropium) 3 ml Q6H PRN HHN dyspnea 01/11/20 18:00 01/16/20 17:59 01/13/20 03:42 Allopurinol (allopurinoL) 300 mg DAILY ORAL 01/12/20 10:15 02/11/20 10:14 01/14/20 09:20 Amlodipine Besylate (Norvasc) 5 mg BID ORAL 01/14/20 18:00 02/11/20 08:59 Aspirin (ASA) 81 mg DAILY ORAL 01/14/20 12:30 02/28/20 12:29 01/14/20 14:58 Atorvastatin Calcium (Lipitor) 80 mg QHS ORAL 01/11/20 21:00 04/10/20 20:59 01/14/20 20:49 Cefepime HCl 1 gm/ Dextrose 55 ml @ 110 mls/hr Q24H IVPB 01/13/20 13:00 01/20/20 12:59 01/14/20 15:00 Clonidine HCl (Catapres Tab) 0.1 mg Q4H PRN ORAL For High Blood Pressure 01/11/20 18:00 04/10/20 17:59 Dextrose (Dextrose 50%) 25 ml Q30M PRN IV Hypoglycemia 01/11/20 18:00 04/10/20 17:59 Dextrose (Dextrose 50%) 50 ml Q30M PRN IV Hypoglycemia 01/11/20 18:00 04/10/20 17:59 Docusate Sodium (Colace) 100 mg TID ORAL 01/11/20 18:00 02/10/20 17:59 01/14/20 18:39 Epoetin Shlomo (Epoetin Shlomo-EPBX(NON ESRD)) 10,000 unit TUE-TUE-TUE SUBQ 01/14/20 21:00 04/13/20 20:59 01/14/20 20:49 Hydralazine HCl (Apresoline) 50 mg Q8HR ORAL 01/14/20 14:00 04/12/20 11:59 01/15/20 06:12 Insulin Aspart (NovoLOG) BEFORE MEALS AND HS SUBQ 01/11/20 21:00 04/10/20 20:59 01/14/20 22:02 Iron Sucrose 100 mg/Sodium Chloride 60 ml @ 240 mls/hr BEDTIME IV 01/13/20 21:00 01/17/20 21:14 01/14/20 20:51 Isosorbide Dinitrate (Isordil) 10 mg Q8HR ORAL 01/14/20 14:00 02/13/20 13:59 01/15/20 06:11 Levothyroxine Sodium (Synthroid) 88 mcg ACBREAKFAST ORAL 01/15/20 06:30 02/11/20 06:29 01/15/20 06:12 Linaclotide (Linzess) 290 mcg BEFORE BREAKFAST ORAL 01/15/20 06:30 04/14/20 06:29 Linezolid 300 ml @ 300 mls/hr Q12H IVPB 01/14/20 15:00 01/21/20 14:59 01/15/20 02:56 Metolazone (Zaroxolyn) 10 mg DAILY ORAL 01/14/20 12:26 02/13/20 12:25 01/14/20 14:58 Olanzapine (ZyPREXA) 2.5 mg BEDTIME ORAL 01/13/20 23:15 02/27/20 23:14 01/14/20 20:49 Ondansetron HCl (Zofran) 4 mg Q6H PRN IVP Nausea & Vomiting 01/11/20 18:00 02/10/20 17:59 Pantoprazole (Protonix) 40 mg EVERY 12 HOURS ORAL 01/11/20 21:00 02/10/20 20:59 01/14/20 20:49 Polyethylene Glycol (Miralax) 17 gm HSPRN PRN ORAL Constipation 01/11/20 21:00 02/10/20 20:59 01/13/20 21:02 Potassium Chloride (K-Dur) 40 meq TWICE A DAY ORAL 01/14/20 11:00 04/13/20 10:59 01/14/20 18:40 Zolpidem Tartrate (Ambien) 5 mg HSPRN PRN ORAL Insomnia 01/11/20 21:00 01/18/20 20:59 Jake Alexander MD Jan 15, 2020 06:27
[2020-01-15 06:28] LABS: BASOPHILS % (AUTO) 0.7 % (0.0-2.0); EOSINOPHILS % (AUTO) 2.5 % (0.0-3.0); HEMOGLOBIN 8.4 G/DL (12.0-16.0); LYMPHOCYTES % (AUTO) 16.3 % (20.0-45.0); MEAN CORPUSCULAR VOLUME 84 FL (80-99); MONOCYTES % (AUTO) 11.5 % (1.0-10.0); PLATELET COUNT 257 K/UL (150-450); RED BLOOD COUNT 3.08 M/UL (4.20-5.40); RED CELL DISTRIBUTION WIDTH 19.1 % (11.6-14.8); WHITE BLOOD COUNT 7.4 K/UL (4.8-10.8)
[2020-01-15 06:51] LABS: ALANINE AMINOTRANSFERASE 37 U/L (12-78); ALBUMIN 2.7 G/DL (3.4-5.0); ALBUMIN/GLOBULIN RATIO 0.7 (1.0-2.7); ALKALINE PHOSPHATASE 244 U/L (46-116); ANION GAP 14 mmol/L (5-15); ASPARTATE AMINO TRANSFERASE 31 U/L (15-37); BILIRUBIN,TOTAL 0.7 MG/DL (0.2-1.0); BLOOD UREA NITROGEN 54 mg/dL (7-18); CALCIUM 8.8 MG/DL (8.5-10.1); CARBON DIOXIDE 20 MMOL/L (21-32); CHLORIDE 114 MMOL/L (98-107); POTASSIUM 3.4 MMOL/L (3.5-5.1); SODIUM 148 MMOL/L (136-145)
[2020-01-15 07:08] LABS: PHOSPHORUS 3.8 MG/DL (2.5-4.9)
--- NOTE | 2020-01-15 07:10 | NUR ---
NURSE NOTES: Received report from BHAVIN Ramirez. Pt awake, A/O x4, Afghan speaking only. Denies any pain, no s/sx of acute distress. IV sites on R AC and L hand are patent and asymptomatic. Pt scheduled to have GI procedures today. Bed on lowest position, call light within reach. Will continue plan of care.
--- NOTE | 2020-01-15 07:15 | NUR ---
NURSE NOTES: Dr. Gunn made aware that pt's stool is not yet clear. Dr. Gunn ordered tap water enema STAT and Magnesium Citrate PO once. Will note and endorsed to BHAVIN Faye.
--- NOTE | 2020-01-15 07:57 | NUR ---
HAND-OFF: Report given to BHAVIN Faye. Plan of care endorsed.
[2020-01-15] MEDS: Docusate 100mg cap ORAL SCH ×3 (08:44→18:00)
[2020-01-15] MEDS: Aspirin Baby 81mg ORAL SCH (08:46)
[2020-01-15] MEDS ORDERED: Magnesium Citrate Liq Btl ORAL SCH (09:00)
--- NOTE | 2020-01-15 09:56 | NUR ---
CASE MANAGEMENT:REVIEW 01/15/20 SI: AC/CHR RENAL FAILURE PLEURAL EFFUSION. ANEMIA......S/P 1 UNIT PRBC'S 97.9 76 22 115/60 95% ON RA H/H-8.4/26.0 NA+148 BUN+54 CR+2.0 IS: IV LINEZOLID Q12 IV CEFEPIME Q24 IV VENOFER QHS EPOETIN SQ MWF NORVASC PO BID HYDRALAZINE PO Q8HRS ISORDIL PO Q8HRS ASA PO QD ZAROXOLYN PO QD ZYPREXA PO QHS : TELEMETRY STATUS DCP: FROM HOME PLAN: PLAN FOR EGD AND COLONOSCOPY TO DETERMINE BLOOD LOSS LOCATION
--- NOTE | 2020-01-15 10:52 | General Progress Note ---
Assessment/Plan Problem List: (1) Renal failure (ARF), acute on chronic ICD Codes: N17.9 - Acute kidney failure, unspecified; N18.9 - Chronic kidney disease, unspecified SNOMED: 425173769 Qualifiers: Qualified Codes: N17.9 - Acute kidney failure, unspecified; N18.9 - Chronic kidney disease, unspecified (2) History of hypertension ICD Codes: Z86.79 - Personal history of other diseases of the circulatory system SNOMED: 107551590 (3) Diabetes mellitus ICD Codes: E11.9 - Type 2 diabetes mellitus without complications SNOMED: 60778955 (4) Pleural effusion ICD Codes: J90 - Pleural effusion, not elsewhere classified SNOMED: 20368589 (5) Anemia ICD Codes: D64.9 - Anemia, unspecified SNOMED: 454842850 Qualifiers: Qualified Codes: D64.9 - Anemia, unspecified (6) Hypoglycemia ICD Codes: E16.2 - Hypoglycemia, unspecified SNOMED: 856875694 Status: stable, progressing Assessment/Plan: pt deit eval bp bs control cbc bmp am dc plan w hh Subjective Constitutional: Reports: weakness Allergies: Coded Allergies: No Known Allergies (Unverified , 10/10/19) All Systems: reviewed and negative except above Subjective o2nc calm in bed Objective Last 24 Hour Vital Signs Date Time Temp Pulse Resp B/P (MAP) Pulse Ox O2 Delivery O2 Flow Rate FiO2 01/15/20 08:45 76 115/60 01/15/20 08:00 97.9 76 22 115/60 (78) 95 01/15/20 06:44 84 16 96 Room Air 21 01/15/20 06:12 145/62 01/15/20 06:11 143/62 01/15/20 04:00 97.0 77 20 137/69 (91) 99 01/15/20 04:00 81 01/15/20 03:30 89 16 99 Room Air 21 01/15/20 00:00 77 01/15/20 00:00 97.3 80 20 117/81 (93) 99 01/14/20 22:06 141/68 01/14/20 22:06 141/68 01/14/20 21:00 Room Air 01/14/20 20:00 73 01/14/20 20:00 98.1 75 20 133/70 (91) 96 01/14/20 18:00 83 101/75 01/14/20 16:00 97.5 79 18 139/68 (91) 96 01/14/20 16:00 75 01/14/20 14:59 139/68 01/14/20 14:59 139/68 01/14/20 12:00 80 01/14/20 12:00 97.5 79 18 139/68 (91) 96 01/14/20 11:43 13968 Intake and Output 01/14/20 01/15/20 19:00 07:00 Intake Total 140 ml Output Total 1800 ml 0 ml Balance -1660 ml 0 ml Intake Oral 140 ml Output Urine Total 1800 ml 0 ml # Voids 3 # Bowel Movements 2 1 Laboratory Tests 01/14/20 11:30: Prothrombin Time 12.9H, Prothromb Time International Ratio 1.2H, Activated Partial Thromboplast Time 25 01/15/20 05:35: White Blood Count 7.4, Red Blood Count 3.08L, Hemoglobin 8.4L, Hematocrit 26.0L , Mean Corpuscular Volume 84, Mean Corpuscular Hemoglobin 27.3, Mean Corpuscular Hemoglobin Concent 32.3, Red Cell Distribution Width 19.1H, Platelet Count 257, Mean Platelet Volume 5.6L, Neutrophils (%) (Auto) 69.0, Lymphocytes (%) (Auto) 16.3L, Monocytes (%) (Auto) 11.5H, Eosinophils (%) (Auto ) 2.5, Basophils (%) (Auto) 0.7, Sodium Level 148H, Potassium Level 3.4L, Chloride Level 114H, Carbon Dioxide Level 20L, Anion Gap 14, Blood Urea Nitrogen 54H, Creatinine 2.0H, Estimat Glomerular Filtration Rate 24.8, Glucose Level 138H, Uric Acid 9.2H, Calcium Level 8.8, Phosphorus Level 3.8, Magnesium Level 2.3, Total Bilirubin 0.7, Aspartate Amino Transf (AST/SGOT) 31, Alanine Aminotransferase (ALT/SGPT) 37, Alkaline Phosphatase 244H, C-Reactive Protein, Quantitative 5.7H, Pro-B-Type Natriuretic Peptide 00558I, Total Protein 6.5, Albumin 2.7L, Globulin 3.8, Albumin/Globulin Ratio 0.7L Height (Feet): 5 Height (Inches): 2.00 Weight (Pounds): 204 General Appearance: lethargic EENT: normal ENT inspection Neck: normal alignment Cardiovascular: normal peripheral pulses, normal rate, regular rhythm Respiratory/Chest: chest wall non-tender, lungs clear, normal breath sounds Abdomen: normal bowel sounds, non tender, soft Extremities: normal inspection Edema: no edema noted Arm (L), no edema noted Arm (R), no edema noted Leg (L), no edema noted Leg (R), no edema noted Pedal (L), no edema noted Pedal (R), no edema noted Generalized Neurologic: motor weakness Skin: normal pigmentation, warm/dry Dyllan King DO Jan 15, 2020 10:52
--- NOTE | 2020-01-15 11:06 | Cardiology Progress Note ---
Assessment/Plan Assessment/Plan bacteremia heat failure ? diastolic CAD (coronary artery disease) recent cabg Renal failure (ARF), acute on chronic Hyperkalemia History of hypertension Left bundle branch block (LBBB) (chronicity unknown) getting bowel prep for colonoscopy diuretic to keep neg fluid status will reviwe echo await record cr improved repeat trop in am repeat ekg Subjective Cardiovascular: Denies: chest pain, lightheadedness, palpitations Respiratory: Denies: shortness of breath Gastrointestinal/Abdominal: Denies: abdominal pain Genitourinary: Denies: burning Objective Last 24 Hour Vital Signs Date Time Temp Pulse Resp B/P (MAP) Pulse Ox O2 Delivery O2 Flow Rate FiO2 01/15/20 08:45 76 115/60 01/15/20 08:00 97.9 76 22 115/60 (78) 95 01/15/20 06:44 84 16 96 Room Air 21 01/15/20 06:12 145/62 01/15/20 06:11 143/62 01/15/20 04:00 97.0 77 20 137/69 (91) 99 01/15/20 04:00 81 01/15/20 03:30 89 16 99 Room Air 21 01/15/20 00:00 77 01/15/20 00:00 97.3 80 20 117/81 (93) 99 01/14/20 22:06 141/68 01/14/20 22:06 141/68 01/14/20 21:00 Room Air 01/14/20 20:00 73 01/14/20 20:00 98.1 75 20 133/70 (91) 96 01/14/20 18:00 83 101/75 01/14/20 16:00 97.5 79 18 139/68 (91) 96 01/14/20 16:00 75 01/14/20 14:59 139/68 01/14/20 14:59 139/68 01/14/20 12:00 80 01/14/20 12:00 97.5 79 18 139/68 (91) 96 01/14/20 11:43 139/68 General Appearance: no apparent distress, alert, obese Neck: supple Cardiovascular: normal rate Respiratory/Chest: decreased breath sounds - right Abdomen: normal bowel sounds, non tender, soft Extremities: moderate edema Intake and Output 01/14/20 01/15/20 19:00 07:00 Intake Total 140 ml Output Total 1800 ml 0 ml Balance -1660 ml 0 ml Intake Oral 140 ml Output Urine Total 1800 ml 0 ml # Voids 3 # Bowel Movements 2 1 Laboratory Tests Test 01/14/20 11:30 01/15/20 05:35 Prothrombin Time 12.9 SEC (9.30-11.50) H Prothromb Time International Ratio 1.2 (0.9-1.1) H Activated Partial Thromboplast Time 25 SEC (23-33) White Blood Count 7.4 K/UL (4.8-10.8) Red Blood Count 3.08 M/UL (4.20-5.40) L Hemoglobin 8.4 G/DL (12.0-16.0) L Hematocrit 26.0 % (37.0-47.0) L Mean Corpuscular Volume 84 FL (80-99) Mean Corpuscular Hemoglobin 27.3 PG (27.0-31.0) Mean Corpuscular Hemoglobin Concent 32.3 G/DL (32.0-36.0) Red Cell Distribution Width 19.1 % (11.6-14.8) H Platelet Count 257 K/UL (150-450) Mean Platelet Volume 5.6 FL (6.5-10.1) L Neutrophils (%) (Auto) 69.0 % (45.0-75.0) Lymphocytes (%) (Auto) 16.3 % (20.0-45.0) L Monocytes (%) (Auto) 11.5 % (1.0-10.0) H Eosinophils (%) (Auto) 2.5 % (0.0-3.0) Basophils (%) (Auto) 0.7 % (0.0-2.0) Sodium Level 148 MMOL/L (136-145) H Potassium Level 3.4 MMOL/L (3.5-5.1) L Chloride Level 114 MMOL/L (98-107) H Carbon Dioxide Level 20 MMOL/L (21-32) L Anion Gap 14 mmol/L (5-15) Blood Urea Nitrogen 54 mg/dL (7-18) H Creatinine 2.0 MG/DL (0.55-1.30) H Estimat Glomerular Filtration Rate 24.8 mL/min (>60) Glucose Level 138 MG/DL (74-106) H Uric Acid 9.2 MG/DL (2.6-7.2) H Calcium Level 8.8 MG/DL (8.5-10.1) Phosphorus Level 3.8 MG/DL (2.5-4.9) Magnesium Level 2.3 MG/DL (1.8-2.4) Total Bilirubin 0.7 MG/DL (0.2-1.0) Aspartate Amino Transf (AST/SGOT) 31 U/L (15-37) Alanine Aminotransferase (ALT/SGPT) 37 U/L (12-78) Alkaline Phosphatase 244 U/L (46-116) H C-Reactive Protein, Quantitative 5.7 mg/dL (0.00-0.90) H Pro-B-Type Natriuretic Peptide 77235 pg/mL (0-125) H Total Protein 6.5 G/DL (6.4-8.2) Albumin 2.7 G/DL (3.4-5.0) L Globulin 3.8 g/dL Albumin/Globulin Ratio 0.7 (1.0-2.7) L Microbiology Date/Time Source Procedure Growth Status 01/13/20 09:50 Blood Blood Culture - Preliminary NO GROWTH AFTER 24 HOURS Resulted 01/13/20 09:40 Blood Blood Culture - Preliminary NO GROWTH AFTER 24 HOURS Resulted Sherwin Zelaya MD Jan 15, 2020 11:06
--- NOTE | 2020-01-15 11:26 | Infectious Diseases Prog Note ---
Assessment/Plan Assessment/Plan ASSESSMENT: +ve blood cx: CoNS 2DEcho: no Veg Afebrile nl WBC Pleural effusion Chest pain. Renal failure. Anemia. Diabetes. Hypertension. Malnutrition. PLAN: Cont pt on Zyvox # 2 - 01/13 Sp IV Vanco # 2 Monitor CBC, CMP Rpt blood cx x 2 Monitor CXR Subjective Allergies: Coded Allergies: No Known Allergies (Unverified , 10/10/19) Subjective afebrile comfortable Objective Vital Signs Last 24 Hour Vital Signs Date Time Temp Pulse Resp B/P (MAP) Pulse Ox O2 Delivery O2 Flow Rate FiO2 01/15/20 08:45 76 115/60 01/15/20 08:00 97.9 76 22 115/60 (78) 95 01/15/20 06:44 84 16 96 Room Air 21 01/15/20 06:12 145/62 01/15/20 06:11 143/62 01/15/20 04:00 97.0 77 20 137/69 (91) 99 01/15/20 04:00 81 01/15/20 03:30 89 16 99 Room Air 21 01/15/20 00:00 77 01/15/20 00:00 97.3 80 20 117/81 (93) 99 01/14/20 22:06 141/68 01/14/20 22:06 141/68 01/14/20 21:00 Room Air 01/14/20 20:00 73 01/14/20 20:00 98.1 75 20 133/70 (91) 96 01/14/20 18:00 83 101/75 01/14/20 16:00 97.5 79 18 139/68 (91) 96 01/14/20 16:00 75 01/14/20 14:59 139/68 01/14/20 14:59 139/68 01/14/20 12:00 80 01/14/20 12:00 97.5 79 18 139/68 (91) 96 01/14/20 11:43 139/68 Height (Feet): 5 Height (Inches): 2.00 Weight (Pounds): 204 Respiratory/Chest: normal breath sounds Cardiovascular: regular rhythm Abdomen: no organomegaly Microbiology Date/Time Source Procedure Growth Status 01/13/20 09:50 Blood Blood Culture - Preliminary NO GROWTH AFTER 24 HOURS Resulted 01/13/20 09:40 Blood Blood Culture - Preliminary NO GROWTH AFTER 24 HOURS Resulted Laboratory Tests Test 01/14/20 11:30 01/15/20 05:35 Prothrombin Time 12.9 SEC (9.30-11.50) H Prothromb Time International Ratio 1.2 (0.9-1.1) H Activated Partial Thromboplast Time 25 SEC (23-33) White Blood Count 7.4 K/UL (4.8-10.8) Red Blood Count 3.08 M/UL (4.20-5.40) L Hemoglobin 8.4 G/DL (12.0-16.0) L Hematocrit 26.0 % (37.0-47.0) L Mean Corpuscular Volume 84 FL (80-99) Mean Corpuscular Hemoglobin 27.3 PG (27.0-31.0) Mean Corpuscular Hemoglobin Concent 32.3 G/DL (32.0-36.0) Red Cell Distribution Width 19.1 % (11.6-14.8) H Platelet Count 257 K/UL (150-450) Mean Platelet Volume 5.6 FL (6.5-10.1) L Neutrophils (%) (Auto) 69.0 % (45.0-75.0) Lymphocytes (%) (Auto) 16.3 % (20.0-45.0) L Monocytes (%) (Auto) 11.5 % (1.0-10.0) H Eosinophils (%) (Auto) 2.5 % (0.0-3.0) Basophils (%) (Auto) 0.7 % (0.0-2.0) Sodium Level 148 MMOL/L (136-145) H Potassium Level 3.4 MMOL/L (3.5-5.1) L Chloride Level 114 MMOL/L (98-107) H Carbon Dioxide Level 20 MMOL/L (21-32) L Anion Gap 14 mmol/L (5-15) Blood Urea Nitrogen 54 mg/dL (7-18) H Creatinine 2.0 MG/DL (0.55-1.30) H Estimat Glomerular Filtration Rate 24.8 mL/min (>60) Glucose Level 138 MG/DL (74-106) H Uric Acid 9.2 MG/DL (2.6-7.2) H Calcium Level 8.8 MG/DL (8.5-10.1) Phosphorus Level 3.8 MG/DL (2.5-4.9) Magnesium Level 2.3 MG/DL (1.8-2.4) Total Bilirubin 0.7 MG/DL (0.2-1.0) Aspartate Amino Transf (AST/SGOT) 31 U/L (15-37) Alanine Aminotransferase (ALT/SGPT) 37 U/L (12-78) Alkaline Phosphatase 244 U/L (46-116) H C-Reactive Protein, Quantitative 5.7 mg/dL (0.00-0.90) H Pro-B-Type Natriuretic Peptide 93417 pg/mL (0-125) H Total Protein 6.5 G/DL (6.4-8.2) Albumin 2.7 G/DL (3.4-5.0) L Globulin 3.8 g/dL Albumin/Globulin Ratio 0.7 (1.0-2.7) L Current Medications Medications (Trade) Dose Ordered Sig/[place] Route PRN Reason Start Time Stop Time Status Last Admin Dose Admin Acetaminophen (Tylenol) 650 mg Q4H PRN ORAL fever 01/11/20 18:00 02/10/20 17:59 Albuterol/ Ipratropium (Albuterol/ Ipratropium) 3 ml Q6H PRN HHN dyspnea 01/11/20 18:00 01/16/20 17:59 01/13/20 03:42 Allopurinol (allopurinoL) 300 mg DAILY ORAL 01/12/20 10:15 02/11/20 10:14 01/15/20 08:44 Amlodipine Besylate (Norvasc) 5 mg BID ORAL 01/14/20 18:00 02/11/20 08:59 01/15/20 08:45 Aspirin (ASA) 81 mg DAILY ORAL 01/14/20 12:30 02/28/20 12:29 01/14/20 14:58 Atorvastatin Calcium (Lipitor) 80 mg QHS ORAL 01/11/20 21:00 04/10/20 20:59 01/14/20 20:49 Cefepime HCl 1 gm/ Dextrose 55 ml @ 110 mls/hr Q24H IVPB 01/13/20 13:00 01/20/20 12:59 01/14/20 15:00 Clonidine HCl (Catapres Tab) 0.1 mg Q4H PRN ORAL For High Blood Pressure 01/11/20 18:00 04/10/20 17:59 Dextrose (Dextrose 50%) 25 ml Q30M PRN IV Hypoglycemia 01/11/20 18:00 04/10/20 17:59 Dextrose (Dextrose 50%) 50 ml Q30M PRN IV Hypoglycemia 01/11/20 18:00 04/10/20 17:59 Docusate Sodium (Colace) 100 mg TID ORAL 01/11/20 18:00 02/10/20 17:59 01/15/20 08:44 Epoetin Shlomo (Epoetin Shlomo-EPBX(NON ESRD)) 10,000 unit TUE- SUBQ 01/14/20 21:00 04/13/20 20:59 01/14/20 20:49 Hydralazine HCl (Apresoline) 50 mg Q8HR ORAL 01/14/20 14:00 04/12/20 11:59 01/15/20 06:12 Insulin Aspart (NovoLOG) BEFORE MEALS AND HS SUBQ 01/11/20 21:00 04/10/20 20:59 01/14/20 22:02 Iron Sucrose 100 mg/Sodium Chloride 60 ml @ 240 mls/hr BEDTIME IV 01/13/20 21:00 01/17/20 21:14 01/14/20 20:51 Isosorbide Dinitrate (Isordil) 10 mg Q8HR ORAL 01/14/20 14:00 02/13/20 13:59 01/15/20 06:11 Levothyroxine Sodium (Synthroid) 88 mcg ACBREAKFAST ORAL 01/15/20 06:30 02/11/20 06:29 01/15/20 06:12 Linaclotide (Linzess) 290 mcg BEFORE BREAKFAST ORAL 01/15/20 06:30 04/14/20 06:29 01/15/20 06:46 Linezolid 300 ml @ 300 mls/hr Q12H IVPB 01/14/20 15:00 01/21/20 14:59 01/15/20 02:56 Metolazone (Zaroxolyn) 10 mg DAILY ORAL 01/14/20 12:26 02/13/20 12:25 01/15/20 08:44 Olanzapine (ZyPREXA) 2.5 mg BEDTIME ORAL 01/13/20 23:15 02/27/20 23:14 01/14/20 20:49 Ondansetron HCl (Zofran) 4 mg Q6H PRN IVP Nausea & Vomiting 01/11/20 18:00 02/10/20 17:59 Pantoprazole (Protonix) 40 mg EVERY 12 HOURS ORAL 01/11/20 21:00 02/10/20 20:59 01/15/20 08:44 Polyethylene Glycol (Miralax) 17 gm HSPRN PRN ORAL Constipation 01/11/20 21:00 02/10/20 20:59 01/13/20 21:02 Potassium Chloride (K-Dur) 40 meq TWICE A DAY ORAL 01/14/20 11:00 04/13/20 10:59 01/15/20 08:44 Zolpidem Tartrate (Ambien) 5 mg HSPRN PRN ORAL Insomnia 01/11/20 21:00 01/18/20 20:59 Ayush Rodriguez MD Jan 15, 2020 11:26
--- NOTE | 2020-01-15 11:45 | NUR ---
NURSE NOTES: Pt left the unit for EGD and colonoscopy.
[2020-01-15] MEDS ORDERED: Propofol 200mg/20ml IV ONE (12:00)
[2020-01-15] MEDS ORDERED: LR 1000ml ONE (12:00)
[2020-01-15] MEDS ORDERED: Lidocaine 1% MPF 10mg/ml 5ml ONE (12:00)
[2020-01-15] MEDS ORDERED: NS 500ML IVPB ONE (12:00)
--- NOTE | 2020-01-15 12:02 | Pre-Procedure Note/Attestation ---
Pre-Procedure Note/Attestation Complete Prior to Procedure Planned Procedure: not applicable Procedure Narrative: esophagogastroduodenoscopy and colonoscopy Indications for Procedure Pre-Operative Diagnosis: gib Attestation I attest that I discussed the nature of the procedure; its benefits; risks and complications; and alternatives (and the risks and benefits of such alternatives ), prior to the procedure, with the patient (or the patient's legal assisted sales representative). I attest that, if there was a reasonable possibility of needing a blood transfusion, the patient (or the patient's legal assisted sales representative) was given the [facility] standardized written summary, pursuant to the Hi Say Blood Safety Act ([place] Health and Safety Code # 1645, as amended). I attest that I re-evaluated the patient just prior to the surgery and that there has been no change in the patient's H&P, except as documented below: Francois Gunn MD Jan 15, 2020 12:02
--- NOTE | 2020-01-15 12:11 | Endoscopy Procedure Note ---
Endoscopy Procedure Note General Indication for Procedure: gib Procedures Performed: EGD, colonoscopy Operative Findings/Diagnosis: gastritis, hemorrhoids Specimen: yes Pt Tolerated Procedure Well: Yes Estimated Blood Loss: none Anesthesia Anesthesiologist: guanakito Anesthesia: MAC Inserted Devices Implant(s) used?: No GI Core Measures 50 yrs or older w/o bx or poly: Not Applicable 10yrs. F/U recommended: Not Applicable Francois Gunn MD Jan 15, 2020 12:11
[2020-01-15] MEDS ORDERED: LR 1000ml 1,000 ML IVLG SCH (12:21)
--- NOTE | 2020-01-15 12:29 | Anethesia Preoperative Eval ---
Anesthesia Pre-op PMH/ROS General Date of Evaluation: Jan 15, 2020 Time of Evaluation: 12:04 Anesthesiologist: Carrillo ASA Score: ASA 4 Mallampati Score Class I : Soft palate, uvula, fauces, pillars visible Class II: Soft palate, uvula, fauces visible Class III: Soft palate, base of uvula visible Class IV: Only hard plate visible Mallampati Classification: Class III Surgeon: Luis A Diagnosis: Hematemisis Surgical Procedure: EGD/Colonoscopy Anesthesia History: none Family History: no anesthesia problems Allergies: Coded Allergies: No Known Allergies (Unverified , 10/10/19) Medications: see eMAR Patient NPO?: Yes NPO Date: Jan 15, 2020 NPO Time: 0000 Past Medical History Cardiovascular: Reports: HTN, CAD, other - CHF End Stage Pulmonary: Reports: asthma, other - Plueral Effusion Gastrointestinal/Genitourinary: Reports: ESRD, other - Cirrhosis Endocrine: Reports: DM, hypothyroidism Hematology/Immune: Reports: anemia Musculoskeletal/Integumentary: Reports: edema PSxH Narrative: Cardiac SX Anesthesia Pre-op Phys. Exam Physician Exam Last Vital Signs Date Time Temp Pulse Resp B/P (MAP) Pulse Ox O2 Delivery O2 Flow Rate FiO2 01/15/20 09:00 Room Air 01/15/20 08:45 76 115/60 01/15/20 08:00 97.9 22 95 01/15/20 06:44 21 01/13/20 22:49 2.0 Constitutional: NAD Neurologic: CN 2-12 intact Cardiovascular: RRR Respiratory: CTA Gastrointestinal: S/NT/ND Airway Exam Mallampati Score: Class III MO: limited ROM: limited Teeth: missing, intact Anesthesia Pre-op A/P Labs Hematology Test 01/15/20 05:35 White Blood Count 7.4 K/UL (4.8-10.8) Red Blood Count 3.08 M/UL (4.20-5.40) L Hemoglobin 8.4 G/DL (12.0-16.0) L Hematocrit 26.0 % (37.0-47.0) L Mean Corpuscular Volume 84 FL (80-99) Mean Corpuscular Hemoglobin 27.3 PG (27.0-31.0) Mean Corpuscular Hemoglobin Concent 32.3 G/DL (32.0-36.0) Red Cell Distribution Width 19.1 % (11.6-14.8) H Platelet Count 257 K/UL (150-450) Mean Platelet Volume 5.6 FL (6.5-10.1) L Neutrophils (%) (Auto) 69.0 % (45.0-75.0) Lymphocytes (%) (Auto) 16.3 % (20.0-45.0) L Monocytes (%) (Auto) 11.5 % (1.0-10.0) H Eosinophils (%) (Auto) 2.5 % (0.0-3.0) Basophils (%) (Auto) 0.7 % (0.0-2.0) Chemistry Test 01/15/20 05:35 Sodium Level 148 MMOL/L (136-145) H Potassium Level 3.4 MMOL/L (3.5-5.1) L Chloride Level 114 MMOL/L (98-107) H Carbon Dioxide Level 20 MMOL/L (21-32) L Anion Gap 14 mmol/L (5-15) Blood Urea Nitrogen 54 mg/dL (7-18) H Creatinine 2.0 MG/DL (0.55-1.30) H Estimat Glomerular Filtration Rate 24.8 mL/min (>60) Glucose Level 138 MG/DL (74-106) H Uric Acid 9.2 MG/DL (2.6-7.2) H Calcium Level 8.8 MG/DL (8.5-10.1) Phosphorus Level 3.8 MG/DL (2.5-4.9) Magnesium Level 2.3 MG/DL (1.8-2.4) Total Bilirubin 0.7 MG/DL (0.2-1.0) Aspartate Amino Transf (AST/SGOT) 31 U/L (15-37) Alanine Aminotransferase (ALT/SGPT) 37 U/L (12-78) Alkaline Phosphatase 244 U/L (46-116) H C-Reactive Protein, Quantitative 5.7 mg/dL (0.00-0.90) H Pro-B-Type Natriuretic Peptide 34842 pg/mL (0-125) H Total Protein 6.5 G/DL (6.4-8.2) Albumin 2.7 G/DL (3.4-5.0) L Globulin 3.8 g/dL Albumin/Globulin Ratio 0.7 (1.0-2.7) L Risk Assessment & Plan Assessment: ASA 4 Plan: TIVA Status Change Before Surgery: Joshua Cardenas MD Jan 15, 2020 12:29
[2020-01-15] MEDS ORDERED: oxyCODONE HCL/Acetaminophen 5/325mg ORAL PRN (12:30)
[2020-01-15] MEDS ORDERED: DiphenhydrAMINE 50mg/ml Inj IVP PRN (12:30)
[2020-01-15] MEDS ORDERED: LORazepam Inj 2mg/ml 1ml IV PRN (12:30)
[2020-01-15] MEDS ORDERED: Atropine Sulfate 0.4mg/ml inj IVP PRN (12:30)
[2020-01-15] MEDS ORDERED: HYDROcodone/Acetamin 7.5/325 tab ORAL PRN (12:30)
[2020-01-15] MEDS ORDERED: Midazolam 2mg/2ml Inj IVP PRN (12:30)
[2020-01-15] MEDS ORDERED: HYDROcodone/Acetamin 5/325 tab ORAL PRN (12:30)
[2020-01-15] MEDS ORDERED: Hydromorphone 0.5mg/0.5ml inj IVP PRN (12:30)
--- NOTE | 2020-01-15 12:36 | Immediate Post-Op Evaluation ---
Immediate Post-Op Evalulation Immediate Post-Op Evalulation Procedure: EGD/Colonoscopy Date of Evaluation: Jan 15, 2020 Time of Evaluation: 13:12 IV Fluids: 200 LR Blood Products: 0 Estimated Blood Loss: 3 Urinary Output: 0 Blood Pressure Systolic: 128 Blood Pressure Diastolic: 78 Pulse Rate: 82 Respiratory Rate: 16 O2 Sat by Pulse Oximetry: 100 Temperature (Fahrenheit): 97.2 Pain Score (1-10): 2 Nausea: No Vomiting: No Complications 0 Patient Status: awake, reacts, patent, none Hydration Status: adequate Joshua Vizcaino MD Jan 15, 2020 12:36
--- NOTE | 2020-01-15 12:38 | 48 Hour Post Anesthesia Eval ---
Post Anesthesia Evaluation Procedure: EGD/Colonoscopy Date of Evaluation: Jan 15, 2020 Time of Evaluation: 15:23 Blood Pressure Systolic: 132 0: 78 Pulse Rate: 82 Respiratory Rate: 18 Temperature (Fahrenheit): 98 O2 Sat by Pulse Oximetry: 99 Airway: patent Nausea: No Vomiting: No Pain Intensity: 1 Cardiopulmonary Status: Stable Mental Status/LOC: patient returned to baseline Follow-up Care/Observations: 0 Post-Anesthesia Complications: 0 Follow-up care needed: N/A Joshua Vizcaino MD Jan 15, 2020 12:38
--- NOTE | 2020-01-15 12:39 | Pulmonology Progress Note ---
Assessment/Plan Problems: (1) Pleural effusion (2) Renal failure (ARF), acute on chronic (3) Hypoglycemia (4) Anemia (5) Moderate pulmonary arterial systolic hypertension (6) Cardiac left ventricular ejection fraction greater than 40 percent (7) Grade I diastolic dysfunction (8) History of hypertension (9) Diabetic nephropathy Assessment/Plan for EGD today cxr reviewed, pt needs thoracentesis watch bun/creatinine all reviewed check cultures prbc prn Subjective ROS Limited/Unobtainable: No Constitutional: Reports: no symptoms HEENT: Repors: no symptoms Respiratory: Reports: no symptoms Allergies: Coded Allergies: No Known Allergies (Unverified , 10/10/19) Objective Last 24 Hour Vital Signs Date Time Temp Pulse Resp B/P (MAP) Pulse Ox O2 Delivery O2 Flow Rate FiO2 01/15/20 12:00 98.0 79 20 113/56 (75) 98 01/15/20 09:00 Room Air 01/15/20 08:45 76 115/60 01/15/20 08:00 97.9 76 22 115/60 (78) 95 01/15/20 07:45 77 01/15/20 06:44 84 16 96 Room Air 21 01/15/20 06:12 145/62 01/15/20 06:11 143/62 01/15/20 04:00 97.0 77 20 137/69 (91) 99 01/15/20 04:00 81 01/15/20 03:30 89 16 99 Room Air 21 01/15/20 00:00 77 01/15/20 00:00 97.3 80 20 117/81 (93) 99 01/14/20 22:06 141/68 01/14/20 22:06 141/68 01/14/20 21:00 Room Air 01/14/20 20:00 73 01/14/20 20:00 98.1 75 20 133/70 (91) 96 01/14/20 18:00 83 101/75 01/14/20 16:00 97.5 79 18 139/68 (91) 96 01/14/20 16:00 75 01/14/20 14:59 139/68 01/14/20 14:59 139/68 Intake and Output 01/14/20 01/15/20 19:00 07:00 Intake Total 140 ml Output Total 1800 ml 0 ml Balance -1660 ml 0 ml Intake Oral 140 ml Output Urine Total 1800 ml 0 ml # Voids 3 # Bowel Movements 2 1 General Appearance: WD/WN HEENT: normocephalic, atraumatic Respiratory/Chest: chest wall non-tender, lungs clear Cardiovascular: normal peripheral pulses, normal rate Abdomen: normal bowel sounds, soft, non tender Extremities: no cyanosis 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 Microbiology Date/Time Source Procedure Growth Status 01/13/20 09:50 Blood Blood Culture - Preliminary NO GROWTH AFTER 24 HOURS Resulted 01/13/20 09:40 Blood Blood Culture - Preliminary NO GROWTH AFTER 24 HOURS Resulted Laboratory Tests 01/15/20 05:35: White Blood Count 7.4, Red Blood Count 3.08L, Hemoglobin 8.4L, Hematocrit 26.0L , Mean Corpuscular Volume 84, Mean Corpuscular Hemoglobin 27.3, Mean Corpuscular Hemoglobin Concent 32.3, Red Cell Distribution Width 19.1H, Platelet Count 257, Mean Platelet Volume 5.6L, Neutrophils (%) (Auto) 69.0, Lymphocytes (%) (Auto) 16.3L, Monocytes (%) (Auto) 11.5H, Eosinophils (%) (Auto ) 2.5, Basophils (%) (Auto) 0.7, Sodium Level 148H, Potassium Level 3.4L, Chloride Level 114H, Carbon Dioxide Level 20L, Anion Gap 14, Blood Urea Nitrogen 54H, Creatinine 2.0H, Estimat Glomerular Filtration Rate 24.8, Glucose Level 138H, Uric Acid 9.2H, Calcium Level 8.8, Phosphorus Level 3.8, Magnesium Level 2.3, Total Bilirubin 0.7, Aspartate Amino Transf (AST/SGOT) 31, Alanine Aminotransferase (ALT/SGPT) 37, Alkaline Phosphatase 244H, C-Reactive Protein, Quantitative 5.7H, Pro-B-Type Natriuretic Peptide 50006J, Total Protein 6.5, Albumin 2.7L, Globulin 3.8, Albumin/Globulin Ratio 0.7L Current Medications Medications (Trade) Dose Ordered Sig/[place] Route PRN Reason Start Time Stop Time Status Last Admin Dose Admin Acetaminophen (Tylenol) 650 mg Q4H PRN ORAL fever 01/11/20 18:00 02/10/20 17:59 Acetaminophen/ Hydrocodone Bitart ([place] 5/325) 1 tab Q1H PRN ORAL Mild Pain (Pain Scale 1-3) 01/15/20 12:30 UNV Acetaminophen/ Hydrocodone Bitart ([place] 7.5/325) 1 tab Q1H PRN ORAL Moderate Pain (Pain Scale 4-6) 01/15/20 12:30 UNV Al Hydroxide/Mg Hydroxide (Mylanta) 15 ml Q1H PRN ORAL gi upset 01/15/20 12:30 UNV Albuterol/ Ipratropium (Albuterol/ Ipratropium) 3 ml Q6H PRN HHN dyspnea 01/11/20 18:00 01/16/20 17:59 01/13/20 03:42 Allopurinol (allopurinoL) 300 mg DAILY ORAL 01/12/20 10:15 02/11/20 10:14 01/15/20 08:44 Amlodipine Besylate (Norvasc) 5 mg BID ORAL 01/14/20 18:00 02/11/20 08:59 01/15/20 08:45 Aspirin (ASA) 81 mg DAILY ORAL 01/14/20 12:30 02/28/20 12:29 01/14/20 14:58 Atorvastatin Calcium (Lipitor) 80 mg QHS ORAL 01/11/20 21:00 04/10/20 20:59 01/14/20 20:49 Atropine Sulfate (Atropine 0.4mg/ ml) 0.5 mg Q5M PRN IVP HR<40 01/15/20 12:30 01/15/20 20:30 Cefepime HCl 1 gm/ Dextrose 55 ml @ 110 mls/hr Q24H IVPB 01/13/20 13:00 01/20/20 12:59 01/14/20 15:00 Clonidine HCl (Catapres Tab) 0.1 mg Q4H PRN ORAL For High Blood Pressure 01/11/20 18:00 04/10/20 17:59 Dextrose (Dextrose 50%) 25 ml Q30M PRN IV Hypoglycemia 01/11/20 18:00 04/10/20 17:59 Dextrose (Dextrose 50%) 50 ml Q30M PRN IV Hypoglycemia 01/11/20 18:00 04/10/20 17:59 Diphenhydramine HCl (Benadryl) 25 mg Q15M PRN IVP Itching 01/15/20 12:30 01/15/20 20:30 Docusate Sodium (Colace) 100 mg TID ORAL 01/11/20 18:00 02/10/20 17:59 01/15/20 08:44 Epoetin Shlomo (Epoetin Shlomo-EPBX(NON ESRD)) 10,000 unit TUE-TUE-TUE SUBQ 01/14/20 21:00 04/13/20 20:59 01/14/20 20:49 Hydralazine HCl (Apresoline) 5 mg Q30M PRN IV SBP>160 / DBP>90 01/15/20 12:30 UNV Hydralazine HCl (Apresoline) 50 mg Q8HR ORAL 01/14/20 14:00 04/12/20 11:59 01/15/20 06:12 Hydromorphone HCl (Dilaudid) 0.5 mg Q15M PRN IVP Severe Pain (Pain Scale 7-10) 01/15/20 12:30 UNV Insulin Aspart (NovoLOG) BEFORE MEALS AND HS SUBQ 01/11/20 21:00 04/10/20 20:59 01/14/20 22:02 Iron Sucrose 100 mg/Sodium Chloride 60 ml @ 240 mls/hr BEDTIME IV 01/13/20 21:00 01/17/20 21:14 01/14/20 20:51 Isosorbide Dinitrate (Isordil) 10 mg Q8HR ORAL 01/14/20 14:00 02/13/20 13:59 01/15/20 06:11 Lactated Ringer's 1,000 ml @ 10 mls/hr Q24H IVLG 01/15/20 12:21 01/15/20 14:20 UNV Levothyroxine Sodium (Synthroid) 88 mcg ACBREAKFAST ORAL 01/15/20 06:30 02/11/20 06:29 01/15/20 06:12 Linaclotide (Linzess) 290 mcg BEFORE BREAKFAST ORAL 01/15/20 06:30 04/14/20 06:29 01/15/20 06:46 Linezolid 300 ml @ 300 mls/hr Q12H IVPB 01/14/20 15:00 01/21/20 14:59 01/15/20 02:56 Lorazepam (Ativan 2mg/ml 1ml) 1 mg Q15M PRN IV For Anxiety 01/15/20 12:30 UNV Metolazone (Zaroxolyn) 10 mg DAILY ORAL 01/14/20 12:26 02/13/20 12:25 01/15/20 08:44 Midazolam HCl (Versed 2mg/2ml vial) 1 mg Q15M PRN IVP For Anxiety 01/15/20 12:30 UNV Olanzapine (ZyPREXA) 2.5 mg BEDTIME ORAL 01/13/20 23:15 02/27/20 23:14 01/14/20 20:49 Ondansetron HCl (Zofran) 4 mg Q1H PRN IVP Nausea & Vomiting 01/15/20 12:30 UNV Ondansetron HCl (Zofran) 4 mg Q6H PRN IVP Nausea & Vomiting 01/11/20 18:00 02/10/20 17:59 Oxycodone/ Acetaminophen (Percocet 5-325) 1 tab Q1H PRN ORAL Severe Pain (Pain Scale 7-10) 01/15/20 12:30 UNV Pantoprazole (Protonix) 40 mg EVERY 12 HOURS ORAL 01/11/20 21:00 02/10/20 20:59 01/15/20 08:44 Polyethylene Glycol (Miralax) 17 gm HSPRN PRN ORAL Constipation 01/11/20 21:00 02/10/20 20:59 01/13/20 21:02 Potassium Chloride (K-Dur) 40 meq TWICE A DAY ORAL 01/14/20 11:00 04/13/20 10:59 01/15/20 08:44 Zolpidem Tartrate (Ambien) 5 mg HSPRN PRN ORAL Insomnia 01/11/20 21:00 01/18/20 20:59 Tiana Cool MD Jan 15, 2020 12:39
--- NOTE | 2020-01-15 13:30 | NUR ---
NURSE NOTES: Pt back to the unit, in stable condition. Pt able to eat lunch. Results of EGD and colonoscopy filed in the chart.
[2020-01-15] MEDS: Cefepime HCl 1 GM in D5W 55 ML IVPB SCH (13:50)
--- NOTE | 2020-01-15 13:50 | Nephrology Progress Note ---
Assessment/Plan Problem List: (1) Renal failure (ARF), acute on chronic (2) Diabetes mellitus (3) Hypoglycemia (4) Hyperkalemia (5) Diabetic nephropathy Assessment Renal failure (ARF), acute on chronic Hyperkalemia Hypoglycemia Anemia Pleural effusion Morbid obesity Plan Chan catheter Stop IV fluid and start diuretics Add hydralazine for afterload reduction Monitor 24-hour urine collection for total protein 2D echocardiogram ejection fraction is reported to 50% Kidney ultrasound noted Anemia work-up leading to low iron intravenous iron ordered As needed Kayexalate for high potassium Urine studies Keep blood pressure and blood sugar in check Monitor renal parameters Subjective ROS Limited/Unobtainable: No Constitutional: Reports: malaise Objective Objective Last 24 Hour Vital Signs Date Time Temp Pulse Resp B/P (MAP) Pulse Ox O2 Delivery O2 Flow Rate FiO2 01/15/20 13:30 97.5 81 23 140/82 97 Room Air 01/15/20 13:15 81 21 149/85 99 Room Air 01/15/20 13:05 81 18 124/89 100 Simple Mask 6 01/15/20 13:00 82 21 142/79 100 Simple Mask 6 01/15/20 12:59 82 18 99 01/15/20 12:58 82 16 100 01/15/20 12:55 97.2 82 24 120/78 100 Simple Mask 6 01/15/20 12:00 98.0 79 20 113/56 (75) 98 01/15/20 11:53 84 01/15/20 09:00 Room Air 01/15/20 08:45 76 115/60 01/15/20 08:00 97.9 76 22 115/60 (78) 95 01/15/20 07:45 77 01/15/20 06:44 84 16 96 Room Air 21 01/15/20 06:12 145/62 01/15/20 06:11 143/62 01/15/20 04:00 97.0 77 20 137/69 (91) 99 01/15/20 04:00 81 01/15/20 03:30 89 16 99 Room Air 21 01/15/20 00:00 77 01/15/20 00:00 97.3 80 20 117/81 (93) 99 01/14/20 22:06 141/68 01/14/20 22:06 141/68 01/14/20 21:00 Room Air 01/14/20 20:00 73 01/14/20 20:00 98.1 75 20 133/70 (91) 96 01/14/20 18:00 83 101/75 01/14/20 16:00 97.5 79 18 139/68 (91) 96 01/14/20 16:00 75 01/14/20 14:59 139/68 01/14/20 14:59 139/68 Intake and Output 01/14/20 01/15/20 19:00 07:00 Intake Total 140 ml Output Total 1800 ml 0 ml Balance -1660 ml 0 ml Intake Oral 140 ml Output Urine Total 1800 ml 0 ml # Voids 3 # Bowel Movements 2 1 Laboratory Tests 01/15/20 05:35: White Blood Count 7.4, Red Blood Count 3.08L, Hemoglobin 8.4L, Hematocrit 26.0L , Mean Corpuscular Volume 84, Mean Corpuscular Hemoglobin 27.3, Mean Corpuscular Hemoglobin Concent 32.3, Red Cell Distribution Width 19.1H, Platelet Count 257, Mean Platelet Volume 5.6L, Neutrophils (%) (Auto) 69.0, Lymphocytes (%) (Auto) 16.3L, Monocytes (%) (Auto) 11.5H, Eosinophils (%) (Auto ) 2.5, Basophils (%) (Auto) 0.7, Sodium Level 148H, Potassium Level 3.4L, Chloride Level 114H, Carbon Dioxide Level 20L, Anion Gap 14, Blood Urea Nitrogen 54H, Creatinine 2.0H, Estimat Glomerular Filtration Rate 24.8, Glucose Level 138H, Uric Acid 9.2H, Calcium Level 8.8, Phosphorus Level 3.8, Magnesium Level 2.3, Total Bilirubin 0.7, Aspartate Amino Transf (AST/SGOT) 31, Alanine Aminotransferase (ALT/SGPT) 37, Alkaline Phosphatase 244H, C-Reactive Protein, Quantitative 5.7H, Pro-B-Type Natriuretic Peptide 69861B, Total Protein 6.5, Albumin 2.7L, Globulin 3.8, Albumin/Globulin Ratio 0.7L Height (Feet): 5 Height (Inches): 1.00 Weight (Pounds): 202 General Appearance: no apparent distress Cardiovascular: normal rate - Rate 80 Respiratory/Chest: decreased breath sounds Abdomen: soft Objective No change Fouladian,Jay MD Jan 15, 2020 13:50
--- NOTE | 2020-01-15 18:00 | Procedure Note ---
SURGEON: Francois Gunn M.D. PROCEDURE: Upper endoscopy with biopsy and colonoscopy with polypectomy and biopsy. ANESTHESIA: Per Dr. Vizcaino. INSTRUMENT: Olympus adult flexible upper endoscope and colonoscope. INDICATIONS: Stool OB positive, GI bleeding, anemia. REASON FOR PROCEDURE: The procedure, risks, benefits, and possible consequences, including hemorrhage, aspiration, perforation and infection, and alternative treatments, were explained to the patient/legal guardian by Dr. Francois Gunn and the patient/legal guardian understood and accepted these risks. PROCEDURE IN DETAIL: After informed consent was obtained and the patient was adequately sedated, Olympus upper endoscope was advanced from mouth into the second portion of the duodenum and retroflexion was performed in the stomach. The patient had evidence of diffuse gastritis. Random biopsy from antrum was obtained to rule out H. pylori infection. The rest of upper endoscopic examination grossly within limits. At this time, the upper endoscope was retrieved and the patient was turned over for colonoscopy. First, rectal exam was performed, which was positive for internal hemorrhoids. Then, the scope was advanced from the rectum into the cecum documented by appendix orifice, ileocecal valve, and right upper quadrant palpation. Quality of prep overall was very good. The patient had diverticulosis, both in the right and left colon. The patient had total of 11 polyps removed from this colonoscopy examination, four from ascending, six from transverse, and one from sigmoid, but half of these polyps were removed with hot snare polypectomy technique. The largest one measured roughly about 7 mm. The patient also had evidence of solitary rectal ulcer above the dentate line in the rectum, status post biopsy. SUMMARY OF FINDINGS: 1. Gastritis, status post biopsy. 2. Total of 11 polyps removed, see above for details. 3. Internal hemorrhoids. 4. Diverticulosis. 5. Total of 11 polyps removed. RECOMMENDATIONS: Follow up pathology and treat accordingly. The patient will need a repeat colonoscopy in one year given these number of polyps. The patient needs to bowel regimen to prevent constipation, possibly that was the cause for rectal ulceration. I want to thank, Dr. Dyllan King, for this kind referral. Francois Gunn M.D. DR: SHANELLE JOB#: [id number] CC: Dyllan King D.O.
--- NOTE | 2020-01-15 19:05 | Hematology/Onc Progress Note ---
Assessment/Plan Assessment/Plan Assessment and Recs: # Anemia of chronic disease due to underlying chronic medical issues, multifactorial v Gi bleed --> Anemia workup has been ordered, rule out gi bleed --> No evidence of hemolysis is noted, peripheral smear has been reviewed. --> Hgb goal >7. Transfuse prn. --> EPOGEN AND IV IRON STARTED --> Medications have been reviewed --> low threshold for gi evaluation in case has occult + --> bone marrow biopsy is not indicated given the other more likely causes --> hgb 7.7-->8-->8.4 --> egd w/ colo 01/14 # Coagulation defect, multifactorial usually related to poor PO intake versus medications, versus hepatitis v cirrhosis --> administer Vitamin K if patient is bleeding or FFP if the INR is >10 --> hold off on ffp unless active procedure/bleeding, first begin with vit K 10 --> mixing study as needed # Renal failure (ARF), acute on chronic --> ivf as per renal --> kyxelate as needed --> renal us --> as per Dr. Severino # Hypoglycemia -> endo eval prn # Pleural effusion --> diuresis as needed --> monitor ivf # Hyperkalemia # Morbid obesity The timing of this note does not necessarily reflect the time of the patient was seen. Greatly appreciate consultation. Subjective Allergies: Coded Allergies: No Known Allergies (Unverified , 10/10/19) Subjective 01/13 no events, no f/c, no bleeding, no labs, no hemolysis 01/14 awake and alert, egd w/ colo for today, h/h stable, on iv iron Objective Objective Current Medications Medications (Trade) Dose Ordered Sig/[place] Route PRN Reason Start Time Stop Time Status Last Admin Dose Admin Acetaminophen (Tylenol) 650 mg Q4H PRN ORAL fever 01/11/20 18:00 02/10/20 17:59 Acetaminophen/ Hydrocodone Bitart ([place] 5/325) 1 tab Q1H PRN ORAL Mild Pain (Pain Scale 1-3) 01/15/20 12:30 01/15/20 20:30 Acetaminophen/ Hydrocodone Bitart ([place] 7.5/325) 1 tab Q1H PRN ORAL Moderate Pain (Pain Scale 4-6) 01/15/20 12:30 01/15/20 20:30 Al Hydroxide/Mg Hydroxide (Mylanta) 15 ml Q1H PRN ORAL gi upset 01/15/20 12:30 01/15/20 21:00 Albuterol/ Ipratropium (Albuterol/ Ipratropium) 3 ml Q6H PRN HHN dyspnea 01/11/20 18:00 01/16/20 17:59 01/13/20 03:42 Allopurinol (allopurinoL) 300 mg DAILY ORAL 01/12/20 10:15 02/11/20 10:14 01/15/20 08:44 Amlodipine Besylate (Norvasc) 5 mg BID ORAL 01/14/20 18:00 02/11/20 08:59 01/15/20 18:06 Aspirin (ASA) 81 mg DAILY ORAL 01/14/20 12:30 02/28/20 12:29 01/14/20 14:58 Atorvastatin Calcium (Lipitor) 80 mg QHS ORAL 01/11/20 21:00 04/10/20 20:59 01/14/20 20:49 Atropine Sulfate (Atropine 0.4mg/ ml) 0.5 mg Q5M PRN IVP HR<40 01/15/20 12:30 01/15/20 20:30 Cefepime HCl 1 gm/ Dextrose 55 ml @ 110 mls/hr Q24H IVPB 01/13/20 13:00 01/20/20 12:59 01/15/20 13:50 Clonidine HCl (Catapres Tab) 0.1 mg Q4H PRN ORAL For High Blood Pressure 01/11/20 18:00 04/10/20 17:59 Dextrose (Dextrose 50%) 25 ml Q30M PRN IV Hypoglycemia 01/11/20 18:00 04/10/20 17:59 Dextrose (Dextrose 50%) 50 ml Q30M PRN IV Hypoglycemia 01/11/20 18:00 04/10/20 17:59 Diphenhydramine HCl (Benadryl) 25 mg Q15M PRN IVP Itching 01/15/20 12:30 01/15/20 20:30 Docusate Sodium (Colace) 100 mg TID ORAL 01/11/20 18:00 02/10/20 17:59 01/15/20 08:44 Epoetin Shlomo (Epoetin Shlomo-EPBX(NON ESRD)) 10,000 unit TUE-TUE-TUE SUBQ 01/14/20 21:00 04/13/20 20:59 01/14/20 20:49 Hydralazine HCl (Apresoline) 5 mg Q30M PRN IV SBP>160 / DBP>90 01/15/20 12:30 01/15/20 20:30 Hydralazine HCl (Apresoline) 50 mg Q8HR ORAL 01/14/20 14:00 04/12/20 11:59 01/15/20 13:50 Hydromorphone HCl (Dilaudid) 0.5 mg Q15M PRN IVP Severe Pain (Pain Scale 7-10) 01/15/20 12:30 01/15/20 20:30 Insulin Aspart (NovoLOG) BEFORE MEALS AND HS SUBQ 01/11/20 21:00 04/10/20 20:59 01/15/20 16:33 Iron Sucrose 100 mg/Sodium Chloride 60 ml @ 240 mls/hr BEDTIME IV 01/13/20 21:00 01/17/20 21:14 01/14/20 20:51 Isosorbide Dinitrate (Isordil) 10 mg Q8HR ORAL 01/14/20 14:00 02/13/20 13:59 01/15/20 13:49 Levothyroxine Sodium (Synthroid) 88 mcg ACBREAKFAST ORAL 01/15/20 06:30 02/11/20 06:29 01/15/20 06:12 Linaclotide (Linzess) 290 mcg BEFORE BREAKFAST ORAL 01/15/20 06:30 04/14/20 06:29 01/15/20 06:46 Linezolid 300 ml @ 300 mls/hr Q12H IVPB 01/14/20 15:00 01/21/20 14:59 01/15/20 15:13 Lorazepam (Ativan 2mg/ml 1ml) 1 mg Q15M PRN IV For Anxiety 01/15/20 12:30 01/15/20 20:30 Metolazone (Zaroxolyn) 5 mg DAILY ORAL 01/16/20 09:00 02/13/20 12:25 Midazolam HCl (Versed 2mg/2ml vial) 1 mg Q15M PRN IVP For Anxiety 01/15/20 12:30 01/15/20 21:00 Olanzapine (ZyPREXA) 2.5 mg BEDTIME ORAL 01/13/20 23:15 02/27/20 23:14 01/14/20 20:49 Ondansetron HCl (Zofran) 4 mg Q1H PRN IVP Nausea & Vomiting 01/15/20 12:30 01/15/20 21:00 Ondansetron HCl (Zofran) 4 mg Q6H PRN IVP Nausea & Vomiting 01/11/20 18:00 02/10/20 17:59 Oxycodone/ Acetaminophen (Percocet 5-325) 1 tab Q1H PRN ORAL Severe Pain (Pain Scale 7-10) 01/15/20 12:30 01/15/20 21:00 Pantoprazole (Protonix) 40 mg EVERY 12 HOURS ORAL 01/11/20 21:00 02/10/20 20:59 01/15/20 08:44 Polyethylene Glycol (Miralax) 17 gm HSPRN PRN ORAL Constipation 01/11/20 21:00 02/10/20 20:59 01/13/20 21:02 Potassium Chloride (K-Dur) 40 meq TWICE A DAY ORAL 01/14/20 11:00 04/13/20 10:59 01/15/20 18:07 Zolpidem Tartrate (Ambien) 5 mg HSPRN PRN ORAL Insomnia 01/11/20 21:00 01/18/20 20:59 Last 24 Hour Vital Signs Date Time Temp Pulse Resp B/P (MAP) Pulse Ox O2 Delivery O2 Flow Rate FiO2 01/15/20 18:06 84 132/80 01/15/20 16:01 78 01/15/20 16:00 98.0 84 20 132/80 (97) 98 01/15/20 13:50 140/82 01/15/20 13:49 140/82 01/15/20 13:30 97.5 81 23 140/82 97 Room Air 01/15/20 13:15 81 21 149/85 99 Room Air 01/15/20 13:05 81 18 124/89 100 Simple Mask 6 01/15/20 13:00 82 21 142/79 100 Simple Mask 6 01/15/20 12:59 82 18 99 01/15/20 12:58 82 16 100 01/15/20 12:55 97.2 82 24 120/78 100 Simple Mask 6 01/15/20 12:00 98.0 79 20 113/56 (75) 98 01/15/20 11:53 84 01/15/20 09:00 Room Air 01/15/20 08:45 76 115/60 01/15/20 08:00 97.9 76 22 115/60 (78) 95 01/15/20 07:45 77 01/15/20 06:44 84 16 96 Room Air 21 01/15/20 06:12 145/62 01/15/20 06:11 143/62 01/15/20 04:00 97.0 77 20 137/69 (91) 99 01/15/20 04:00 81 01/15/20 03:30 89 16 99 Room Air 21 01/15/20 00:00 77 01/15/20 00:00 97.3 80 20 117/81 (93) 99 01/14/20 22:06 141/68 01/14/20 22:06 141/68 01/14/20 21:00 Room Air 01/14/20 20:00 73 01/14/20 20:00 98.1 75 20 133/70 (91) 96 01/14/20 18:00 83 101/75 01/14/20 16:00 97.5 79 18 139/68 (91) 96 01/14/20 16:00 75 01/14/20 14:59 139/68 01/14/20 14:59 139/68 01/14/20 12:00 80 01/14/20 12:00 97.5 79 18 139/68 (91) 96 01/14/20 11:43 139/68 01/14/20 09:21 60 160/74 01/14/20 09:00 Room Air 01/14/20 08:00 86 01/14/20 08:00 98.1 60 19 160/74 (102) 100 01/14/20 07:00 60 18 100 Room Air 21 01/14/20 05:58 153/78 01/14/20 04:00 96.9 76 22 153/78 (103) 98 01/14/20 04:00 84 01/14/20 00:00 97.7 72 24 108/36 (60) 98 01/14/20 00:00 69 01/13/20 23:26 108/36 01/13/20 22:49 Nasal Cannula 2.0 01/13/20 21:00 Nasal Cannula 2.0 01/13/20 21:00 Room Air 01/13/20 20:06 74 20 96 Room Air 21 01/13/20 20:00 99.5 73 22 97/56 (70) 99 Intake and Output 01/14/20 01/15/20 19:00 07:00 Intake Total 140 ml Output Total 1800 ml 0 ml Balance -1660 ml 0 ml Intake Oral 140 ml Output Urine Total 1800 ml 0 ml # Voids 3 # Bowel Movements 2 1 Labs Test 01/13/20 01:00 01/13/20 04:10 01/13/20 06:25 01/13/20 17:23 Stool Occult Blood Positive (NEGATIVE) Positive (NEGATIVE) White Blood Count 5.9 K/UL (4.8-10.8) Red Blood Count 3.00 M/UL (4.20-5.40) Hemoglobin 8.0 G/DL (12.0-16.0) Hematocrit 25.3 % (37.0-47.0) Mean Corpuscular Volume 85 FL (80-99) Mean Corpuscular Hemoglobin 26.8 PG (27.0-31.0) Mean Corpuscular Hemoglobin Concent 31.6 G/DL (32.0-36.0) Red Cell Distribution Width 18.4 % (11.6-14.8) Platelet Count 240 K/UL (150-450) Mean Platelet Volume 6.4 FL (6.5-10.1) Neutrophils (%) (Auto) 66.3 % (45.0-75.0) Lymphocytes (%) (Auto) 22.2 % (20.0-45.0) Monocytes (%) (Auto) 9.9 % (1.0-10.0) Eosinophils (%) (Auto) 0.2 % (0.0-3.0) Basophils (%) (Auto) 1.4 % (0.0-2.0) Sodium Level 144 MMOL/L (136-145) Potassium Level 3.9 MMOL/L (3.5-5.1) Chloride Level 109 MMOL/L (98-107) Carbon Dioxide Level 19 MMOL/L (21-32) Anion Gap 17 mmol/L (5-15) Blood Urea Nitrogen 85 mg/dL (7-18) Creatinine 2.5 MG/DL (0.55-1.30) Estimat Glomerular Filtration Rate 19.1 mL/min (>60) Glucose Level 153 MG/DL (74-106) Calcium Level 8.7 MG/DL (8.5-10.1) Phosphorus Level 5.2 MG/DL (2.5-4.9) Magnesium Level 2.6 MG/DL (1.8-2.4) Total Bilirubin 0.6 MG/DL (0.2-1.0) Aspartate Amino Transf (AST/SGOT) 32 U/L (15-37) Alanine Aminotransferase (ALT/SGPT) 37 U/L (12-78) Alkaline Phosphatase 282 U/L (46-116) Ammonia 51 umol/L (11-32) C-Reactive Protein, Quantitative 6.3 mg/dL (0.00-0.90) Pro-B-Type Natriuretic Peptide 8614 pg/mL (0-125) Total Protein 6.5 G/DL (6.4-8.2) Albumin 2.9 G/DL (3.4-5.0) Globulin 3.6 g/dL Albumin/Globulin Ratio 0.8 (1.0-2.7) Hepatitis A IgM Antibody Negative (Negative) Hepatitis B Surface Antigen Negative (Negative) Hepatitis B Core IgM Antibody Negative (Negative) Hepatitis C Antibody 0.2 s/co ratio (0.0-0.9) Arterial Blood pH 7.439 (7.350-7.450) Arterial Blood Partial Pressure CO2 28.6 mmHg (35.0-45.0) Arterial Blood Partial Pressure O2 94.9 mmHg (75.0-100.0) Arterial Blood HCO3 18.9 mmol/L (22.0-26.0) Arterial Blood Oxygen Saturation 96.6 % (95-100) Arterial Blood Base Excess -4.5 (-2-2) Geoffrey Test Positive Test 01/14/20 05:55 01/14/20 11:30 01/15/20 05:35 White Blood Count 6.7 K/UL (4.8-10.8) 7.4 K/UL (4.8-10.8) Red Blood Count 3.31 M/UL (4.20-5.40) 3.08 M/UL (4.20-5.40) Hemoglobin 8.8 G/DL (12.0-16.0) 8.4 G/DL (12.0-16.0) Hematocrit 28.1 % (37.0-47.0) 26.0 % (37.0-47.0) Mean Corpuscular Volume 85 FL (80-99) 84 FL (80-99) Mean Corpuscular Hemoglobin 26.7 PG (27.0-31.0) 27.3 PG (27.0-31.0) Mean Corpuscular Hemoglobin Concent 31.5 G/DL (32.0-36.0) 32.3 G/DL (32.0-36.0) Red Cell Distribution Width 19.2 % (11.6-14.8) 19.1 % (11.6-14.8) Platelet Count 280 K/UL (150-450) 257 K/UL (150-450) Mean Platelet Volume 6.4 FL (6.5-10.1) 5.6 FL (6.5-10.1) Neutrophils (%) (Auto) 70.1 % (45.0-75.0) 69.0 % (45.0-75.0) Lymphocytes (%) (Auto) 18.7 % (20.0-45.0) 16.3 % (20.0-45.0) Monocytes (%) (Auto) 8.8 % (1.0-10.0) 11.5 % (1.0-10.0) Eosinophils (%) (Auto) 1.6 % (0.0-3.0) 2.5 % (0.0-3.0) Basophils (%) (Auto) 0.8 % (0.0-2.0) 0.7 % (0.0-2.0) Sodium Level 148 MMOL/L (136-145) 148 MMOL/L (136-145) Potassium Level 3.1 MMOL/L (3.5-5.1) 3.4 MMOL/L (3.5-5.1) Chloride Level 111 MMOL/L (98-107) 114 MMOL/L (98-107) Carbon Dioxide Level 19 MMOL/L (21-32) 20 MMOL/L (21-32) Anion Gap 18 mmol/L (5-15) 14 mmol/L (5-15) Blood Urea Nitrogen 66 mg/dL (7-18) 54 mg/dL (7-18) Creatinine 2.3 MG/DL (0.55-1.30) 2.0 MG/DL (0.55-1.30) Estimat Glomerular Filtration Rate 21.1 mL/min (>60) 24.8 mL/min (>60) Glucose Level 93 MG/DL (74-106) 138 MG/DL (74-106) Uric Acid 9.8 MG/DL (2.6-7.2) 9.2 MG/DL (2.6-7.2) Calcium Level 8.9 MG/DL (8.5-10.1) 8.8 MG/DL (8.5-10.1) Phosphorus Level 4.9 MG/DL (2.5-4.9) 3.8 MG/DL (2.5-4.9) Magnesium Level 2.5 MG/DL (1.8-2.4) 2.3 MG/DL (1.8-2.4) Total Bilirubin 0.7 MG/DL (0.2-1.0) 0.7 MG/DL (0.2-1.0) Aspartate Amino Transf (AST/SGOT) 30 U/L (15-37) 31 U/L (15-37) Alanine Aminotransferase (ALT/SGPT) 41 U/L (12-78) 37 U/L (12-78) Alkaline Phosphatase 284 U/L (46-116) 244 U/L (46-116) Troponin I 0.080 ng/mL (0.000-0.056) C-Reactive Protein, Quantitative 5.9 mg/dL (0.00-0.90) 5.7 mg/dL (0.00-0.90) Pro-B-Type Natriuretic Peptide 94139 pg/mL (0-125) 33246 pg/mL (0-125) Total Protein 7.1 G/DL (6.4-8.2) 6.5 G/DL (6.4-8.2) Albumin 3.0 G/DL (3.4-5.0) 2.7 G/DL (3.4-5.0) Globulin 4.1 g/dL 3.8 g/dL Albumin/Globulin Ratio 0.7 (1.0-2.7) 0.7 (1.0-2.7) Random Vancomycin Level 15.1 ug/mL Prothrombin Time 12.9 SEC (9.30-11.50) Prothromb Time International Ratio 1.2 (0.9-1.1) Activated Partial Thromboplast Time 25 SEC (23-33) Height (Feet): 5 Height (Inches): 1.00 Weight (Pounds): 202 Objective Physical Exam: Vitals: reviewed General: NAD HEENT: nc, at Neck: supple Chest: clear breath sounds bilaterally Cardiovascular: RRR, no s3, s4 Abdomen: soft, nontender, nd Extremities: no cce, normal range of motion Neuro: alert and oriented Gu: ++Derick Hwang MD Jan 15, 2020 19:04
--- NOTE | 2020-01-15 19:44 | NUR ---
HAND-OFF: Report given to BHAVIN Ramirez. Pt in stable condition, endorsed plan of care.
--- NOTE | 2020-01-15 19:56 | NUR ---
NURSE NOTES: Received pt and report from BHAVIN Faye. Observed pt resting in bed and watching television. Pt is A/Ox4. library monitor is in placed; pt is SR w/BBB. IV site intact, asymptomatic, and patent. Bed is in the lowest position and locked. Call light and beside table is within reach. No signs/symptoms of acute distress noted at this time. Will continue plan of care.
[2020-01-15] MEDS: Iron Sucrose 100 MG in NS 55 ML IV SCH (21:05)
[2020-01-15] MEDS: OLANZapine 2.5mg tab ORAL SCH (21:09)
[2020-01-15] MEDS: Atorvastatin 80mg tab ORAL SCH (21:09)
--- NOTE | 2020-01-15 23:00 | Progress Note ---
DATE: 01/15/2020 SUBJECTIVE: The patient is in bed, resting. No behavior issues noted. More alert, able to answer the question. Episodes of anxiety, more redirectable. MENTAL STATUS EXAMINATION: Alert, oriented times self, place, situation. Mood is dysphoric. Affect is constricted, congruent with mood. Thought process is concrete. Thought content, no suicidal or homicidal ideation. Cognition is impaired. Insight and judgment is impaired. ASSESSMENT: 1. Acute encephalopathy, improved. 2. Cognitive impairment. PLAN: 1. Zyprexa p.r.n. 2. Follow and readjust the medications. Aki Morris M.D. DR: VASYL JOB#: [id number] CC:
[2020-01-16] VITALS: BP 128/66
[2020-01-16 04:00] VITALS: BP 142/66
[2020-01-16] MEDS: HydrALAZINE 50mg tab ORAL SCH ×3 (05:56→20:52)
[2020-01-16] MEDS: NovoLOG Insulin Flexpen SUBQ SCH ×4 (05:56→20:48)
[2020-01-16 07:10] LABS: BASOPHILS % (AUTO) 0.9 % (0.0-2.0); EOSINOPHILS % (AUTO) 3.3 % (0.0-3.0); HEMATOCRIT 26.5 % (37.0-47.0); HEMOGLOBIN 8.4 G/DL (12.0-16.0); LYMPHOCYTES % (AUTO) 20.7 % (20.0-45.0); MEAN CORPUSCULAR VOLUME 86 FL (80-99); MONOCYTES % (AUTO) 11.6 % (1.0-10.0); NEUTROPHILS % (AUTO) 63.5 % (45.0-75.0); PLATELET COUNT 237 K/UL (150-450); RED CELL DISTRIBUTION WIDTH 19.4 % (11.6-14.8); WHITE BLOOD COUNT 6.2 K/UL (4.8-10.8)
[2020-01-16 07:21] LABS: ANION GAP 15 mmol/L (5-15); BLOOD UREA NITROGEN 46 mg/dL (7-18); CALCIUM 8.7 MG/DL (8.5-10.1); CARBON DIOXIDE 18 MMOL/L (21-32); CHLORIDE 113 MMOL/L (98-107); CREATININE 1.8 MG/DL (0.55-1.30); POTASSIUM 3.8 MMOL/L (3.5-5.1); SODIUM 146 MMOL/L (136-145)
[2020-01-16 07:24] LABS: ALANINE AMINOTRANSFERASE 46 U/L (12-78); ALBUMIN 2.7 G/DL (3.4-5.0); ALKALINE PHOSPHATASE 267 U/L (46-116); ASPARTATE AMINO TRANSFERASE 40 U/L (15-37); BILIRUBIN,DIRECT 0.3 MG/DL (0.0-0.3); BILIRUBIN,TOTAL 0.6 MG/DL (0.2-1.0); PHOSPHORUS 3.3 MG/DL (2.5-4.9)
--- NOTE | 2020-01-16 07:26 | NUR ---
HAND-OFF: Report given to BHAVIN Garcia and BHAVIN Sigala. Plan of care endorsed.
--- NOTE | 2020-01-16 07:51 | NUR ---
NURSE NOTES: Received report from BHAVIN Ramirez. Patient is on bed, awake, alert and oriented x 3-4. Patient is on room air, no respiratory distress noted at this time. No chest pain nor other discomfort reported. Patient has IV site on right hand G-22 saline lock that is clean, patent and dry. Safety measures are in placed, bed is in lowest and locked position, call light and bed side table within reach. Side rails up x 2. Bed alarm is on. Will continue plan of care.
--- NOTE | 2020-01-16 07:58 | Hematology/Onc Progress Note ---
Assessment/Plan Assessment/Plan Assessment and Recs: # Anemia of chronic disease due to underlying chronic medical issues, multifactorial v Gi bleed --> Anemia workup has been ordered, rule out gi bleed --> No evidence of hemolysis is noted, peripheral smear has been reviewed. --> Hgb goal >7. Transfuse prn. --> EPOGEN AND IV IRON STARTED --> Medications have been reviewed --> occult on adm was ++ --> bone marrow biopsy is not indicated given the other more likely causes --> hgb 7.7-->8-->8.4 --> egd w/ colo 01/15/20 Gastritis, status post biopsy. Total of 11 polyps removed, see above for details. Internal hemorrhoids. # Coagulation defect, multifactorial usually related to poor PO intake versus medications, versus hepatitis v cirrhosis --> administer Vitamin K if patient is bleeding or FFP if the INR is >10 --> hold off on ffp unless active procedure/bleeding, first begin with vit K 10 --> mixing study as needed # Renal failure (ARF), acute on chronic --> ivf as per renal --> kyxelate as needed --> renal us --> as per Dr. Severino # Hypoglycemia -> endo eval prn # Pleural effusion --> diuresis as needed --> monitor ivf # Hyperkalemia # Morbid obesity The timing of this note does not necessarily reflect the time of the patient was seen. Greatly appreciate consultation. Subjective HEENT: Denies: no symptoms, eye pain, blurred vision, tearing, double vision, ear pain, ear discharge, nose pain, nose congestion, throat pain, throat swelling, mouth pain, mouth swelling, other Cardiovascular: Denies: no symptoms, chest pain, edema, irregular heart rate, lightheadedness, palpitations, syncope, other Respiratory: Denies: no symptoms, cough, shortness of breath, SOB with excertion, SOB at rest, sputum, wheezing, other Gastrointestinal/Abdominal: Denies: no symptoms, abdomen distended, abdominal pain, black stools, tarry stools, blood in stool, constipated, diarrhea, difficulty swallowing, nausea, poor appetite, poor fluid intake, rectal bleeding , vomiting, other Genitourinary: Denies: no symptoms, burning, discharge, frequency, flank pain, hematuria, incontinence, pain, urgency, other Neurologic/Psychiatric: Denies: no symptoms, anxiety, depressed, emotional problems, headache, numbness, paresthesia, pre-existing deficit, seizure, tingling, tremors, weakness, other Endocrine: Denies: no symptoms, excessive sweating, flushing, intolerance to cold, intolerance to heat, increased hunger, increased thirst, increased urine, unexplained weight gain, unexplained weight loss, other Hematologic/Lymphatic: Denies: no symptoms, anemia, easy bleeding, easy bruising, adenopathy, other Allergies: Coded Allergies: No Known Allergies (Unverified , 10/10/19) Subjective 01/13 no events, no f/c, no bleeding, no labs, no hemolysis 01/14 awake and alert, egd w/ colo for today, h/h stable, on iv iron 01/15 awake and alert, no bleeding, op report noted Objective Objective Current Medications Medications (Trade) Dose Ordered Sig/Braeden Route PRN Reason Start Time Stop Time Status Last Admin Dose Admin Acetaminophen (Tylenol) 650 mg Q4H PRN ORAL fever 01/11/20 18:00 02/10/20 17:59 Albuterol/ Ipratropium (Albuterol/ Ipratropium) 3 ml Q6H PRN HHN dyspnea 01/11/20 18:00 01/16/20 17:59 01/13/20 03:42 Allopurinol (allopurinoL) 300 mg DAILY ORAL 01/12/20 10:15 02/11/20 10:14 01/15/20 08:44 Amlodipine Besylate (Norvasc) 5 mg BID ORAL 01/14/20 18:00 02/11/20 08:59 01/15/20 18:06 Aspirin (ASA) 81 mg DAILY ORAL 01/14/20 12:30 02/28/20 12:29 01/14/20 14:58 Atorvastatin Calcium (Lipitor) 80 mg QHS ORAL 01/11/20 21:00 04/10/20 20:59 01/15/20 21:09 Cefepime HCl 1 gm/ Dextrose 55 ml @ 110 mls/hr Q24H IVPB 01/13/20 13:00 01/20/20 12:59 01/15/20 13:50 Clonidine HCl (Catapres Tab) 0.1 mg Q4H PRN ORAL For High Blood Pressure 01/11/20 18:00 04/10/20 17:59 Dextrose (Dextrose 50%) 25 ml Q30M PRN IV Hypoglycemia 01/11/20 18:00 04/10/20 17:59 Dextrose (Dextrose 50%) 50 ml Q30M PRN IV Hypoglycemia 01/11/20 18:00 04/10/20 17:59 Docusate Sodium (Colace) 100 mg TID ORAL 01/11/20 18:00 02/10/20 17:59 01/15/20 08:44 Epoetin Shlomo (Epoetin Shlomo-EPBX(NON ESRD)) 10,000 unit TUE-TUE-TUE SUBQ 01/14/20 21:00 04/13/20 20:59 01/14/20 20:49 Hydralazine HCl (Apresoline) 50 mg Q8HR ORAL 01/14/20 14:00 04/12/20 11:59 01/16/20 05:56 Insulin Aspart (NovoLOG) BEFORE MEALS AND HS SUBQ 01/11/20 21:00 04/10/20 20:59 01/15/20 21:14 Iron Sucrose 100 mg/Sodium Chloride 60 ml @ 240 mls/hr BEDTIME IV 01/13/20 21:00 01/17/20 21:14 01/15/20 21:05 Isosorbide Dinitrate (Isordil) 10 mg Q8HR ORAL 01/14/20 14:00 02/13/20 13:59 01/16/20 05:56 Levothyroxine Sodium (Synthroid) 88 mcg ACBREAKFAST ORAL 01/15/20 06:30 02/11/20 06:29 01/16/20 05:56 Linaclotide (Linzess) 290 mcg BEFORE BREAKFAST ORAL 01/15/20 06:30 04/14/20 06:29 01/16/20 05:56 Linezolid 300 ml @ 300 mls/hr Q12H IVPB 01/14/20 15:00 01/21/20 14:59 01/16/20 02:30 Metolazone (Zaroxolyn) 5 mg DAILY ORAL 01/16/20 09:00 02/13/20 12:25 Olanzapine (ZyPREXA) 2.5 mg BEDTIME ORAL 01/13/20 23:15 02/27/20 23:14 01/15/20 21:09 Ondansetron HCl (Zofran) 4 mg Q6H PRN IVP Nausea & Vomiting 01/11/20 18:00 02/10/20 17:59 Pantoprazole (Protonix) 40 mg EVERY 12 HOURS ORAL 01/11/20 21:00 02/10/20 20:59 01/15/20 21:09 Polyethylene Glycol (Miralax) 17 gm HSPRN PRN ORAL Constipation 01/11/20 21:00 02/10/20 20:59 01/13/20 21:02 Potassium Chloride (K-Dur) 40 meq TWICE A DAY ORAL 01/14/20 11:00 04/13/20 10:59 01/15/20 18:07 Zolpidem Tartrate (Ambien) 5 mg HSPRN PRN ORAL Insomnia 01/11/20 21:00 01/18/20 20:59 Last 24 Hour Vital Signs Date Time Temp Pulse Resp B/P (MAP) Pulse Ox O2 Delivery O2 Flow Rate FiO2 01/16/20 07:22 78 18 98 Room Air 21 01/16/20 05:56 142/66 01/16/20 05:56 142/66 01/16/20 04:00 97.3 78 18 142/66 (91) 98 01/16/20 04:00 77 01/16/20 00:00 97.1 80 20 128/66 (86) 98 01/16/20 00:00 73 01/15/20 21:09 128/62 01/15/20 21:09 128/62 01/15/20 21:00 Room Air 01/15/20 20:00 96.8 76 18 128/62 (84) 97 01/15/20 20:00 74 01/15/20 19:53 72 18 97 Room Air 21 01/15/20 18:06 84 132/80 01/15/20 16:01 78 01/15/20 16:00 98.0 84 20 132/80 (97) 98 01/15/20 13:50 140/82 01/15/20 13:49 140/82 01/15/20 13:30 97.5 81 23 140/82 97 Room Air 01/15/20 13:15 81 21 149/85 99 Room Air 01/15/20 13:05 81 18 124/89 100 Simple Mask 6 01/15/20 13:00 82 21 142/79 100 Simple Mask 6 01/15/20 12:59 82 18 99 01/15/20 12:58 82 16 100 01/15/20 12:55 97.2 82 24 120/78 100 Simple Mask 6 01/15/20 12:00 98.0 79 20 113/56 (75) 98 01/15/20 11:53 84 01/15/20 09:00 Room Air 01/15/20 08:45 76 115/60 01/15/20 08:00 97.9 76 22 115/60 (78) 95 01/15/20 07:45 77 01/15/20 06:44 84 16 96 Room Air 21 01/15/20 06:12 145/62 01/15/20 06:11 143/62 01/15/20 04:00 97.0 77 20 137/69 (91) 99 01/15/20 04:00 81 01/15/20 03:30 89 16 99 Room Air 21 01/15/20 00:00 77 01/15/20 00:00 97.3 80 20 117/81 (93) 99 01/14/20 22:06 141/68 01/14/20 22:06 141/68 01/14/20 21:00 Room Air 01/14/20 20:00 73 01/14/20 20:00 98.1 75 20 133/70 (91) 96 01/14/20 18:00 83 101/75 01/14/20 16:00 97.5 79 18 139/68 (91) 96 01/14/20 16:00 75 01/14/20 14:59 139/68 01/14/20 14:59 139/68 01/14/20 12:00 80 01/14/20 12:00 97.5 79 18 139/68 (91) 96 01/14/20 11:43 139/68 01/14/20 09:21 60 160/74 01/14/20 09:00 Room Air 01/14/20 08:00 86 01/14/20 08:00 98.1 60 19 160/74 (102) 100 Intake and Output 01/15/20 01/16/20 19:00 07:00 Intake Total 600 ml 230 ml Output Total 400 ml 400 ml Balance 200 ml -170 ml Intake Oral 480 ml 230 ml IV Total 120 ml Output Urine Total 400 ml 400 ml # Bowel Movements 2 2 Labs Test 01/13/20 17:23 01/14/20 05:55 01/14/20 11:30 01/15/20 05:35 Arterial Blood pH 7.439 (7.350-7.450) Arterial Blood Partial Pressure CO2 28.6 mmHg (35.0-45.0) Arterial Blood Partial Pressure O2 94.9 mmHg (75.0-100.0) Arterial Blood HCO3 18.9 mmol/L (22.0-26.0) Arterial Blood Oxygen Saturation 96.6 % (95-100) Arterial Blood Base Excess -4.5 (-2-2) Geoffrey Test Positive White Blood Count 6.7 K/UL (4.8-10.8) 7.4 K/UL (4.8-10.8) Red Blood Count 3.31 M/UL (4.20-5.40) 3.08 M/UL (4.20-5.40) Hemoglobin 8.8 G/DL (12.0-16.0) 8.4 G/DL (12.0-16.0) Hematocrit 28.1 % (37.0-47.0) 26.0 % (37.0-47.0) Mean Corpuscular Volume 85 FL (80-99) 84 FL (80-99) Mean Corpuscular Hemoglobin 26.7 PG (27.0-31.0) 27.3 PG (27.0-31.0) Mean Corpuscular Hemoglobin Concent 31.5 G/DL (32.0-36.0) 32.3 G/DL (32.0-36.0) Red Cell Distribution Width 19.2 % (11.6-14.8) 19.1 % (11.6-14.8) Platelet Count 280 K/UL (150-450) 257 K/UL (150-450) Mean Platelet Volume 6.4 FL (6.5-10.1) 5.6 FL (6.5-10.1) Neutrophils (%) (Auto) 70.1 % (45.0-75.0) 69.0 % (45.0-75.0) Lymphocytes (%) (Auto) 18.7 % (20.0-45.0) 16.3 % (20.0-45.0) Monocytes (%) (Auto) 8.8 % (1.0-10.0) 11.5 % (1.0-10.0) Eosinophils (%) (Auto) 1.6 % (0.0-3.0) 2.5 % (0.0-3.0) Basophils (%) (Auto) 0.8 % (0.0-2.0) 0.7 % (0.0-2.0) Sodium Level 148 MMOL/L (136-145) 148 MMOL/L (136-145) Potassium Level 3.1 MMOL/L (3.5-5.1) 3.4 MMOL/L (3.5-5.1) Chloride Level 111 MMOL/L (98-107) 114 MMOL/L (98-107) Carbon Dioxide Level 19 MMOL/L (21-32) 20 MMOL/L (21-32) Anion Gap 18 mmol/L (5-15) 14 mmol/L (5-15) Blood Urea Nitrogen 66 mg/dL (7-18) 54 mg/dL (7-18) Creatinine 2.3 MG/DL (0.55-1.30) 2.0 MG/DL (0.55-1.30) Estimat Glomerular Filtration Rate 21.1 mL/min (>60) 24.8 mL/min (>60) Glucose Level 93 MG/DL (74-106) 138 MG/DL (74-106) Uric Acid 9.8 MG/DL (2.6-7.2) 9.2 MG/DL (2.6-7.2) Calcium Level 8.9 MG/DL (8.5-10.1) 8.8 MG/DL (8.5-10.1) Phosphorus Level 4.9 MG/DL (2.5-4.9) 3.8 MG/DL (2.5-4.9) Magnesium Level 2.5 MG/DL (1.8-2.4) 2.3 MG/DL (1.8-2.4) Total Bilirubin 0.7 MG/DL (0.2-1.0) 0.7 MG/DL (0.2-1.0) Aspartate Amino Transf (AST/SGOT) 30 U/L (15-37) 31 U/L (15-37) Alanine Aminotransferase (ALT/SGPT) 41 U/L (12-78) 37 U/L (12-78) Alkaline Phosphatase 284 U/L (46-116) 244 U/L (46-116) Troponin I 0.080 ng/mL (0.000-0.056) C-Reactive Protein, Quantitative 5.9 mg/dL (0.00-0.90) 5.7 mg/dL (0.00-0.90) Pro-B-Type Natriuretic Peptide 01127 pg/mL (0-125) 58092 pg/mL (0-125) Total Protein 7.1 G/DL (6.4-8.2) 6.5 G/DL (6.4-8.2) Albumin 3.0 G/DL (3.4-5.0) 2.7 G/DL (3.4-5.0) Globulin 4.1 g/dL 3.8 g/dL Albumin/Globulin Ratio 0.7 (1.0-2.7) 0.7 (1.0-2.7) Random Vancomycin Level 15.1 ug/mL Prothrombin Time 12.9 SEC (9.30-11.50) Prothromb Time International Ratio 1.2 (0.9-1.1) Activated Partial Thromboplast Time 25 SEC (23-33) Test 01/16/20 05:37 White Blood Count 6.2 K/UL (4.8-10.8) Red Blood Count 3.10 M/UL (4.20-5.40) Hemoglobin 8.4 G/DL (12.0-16.0) Hematocrit 26.5 % (37.0-47.0) Mean Corpuscular Volume 86 FL (80-99) Mean Corpuscular Hemoglobin 27.0 PG (27.0-31.0) Mean Corpuscular Hemoglobin Concent 31.6 G/DL (32.0-36.0) Red Cell Distribution Width 19.4 % (11.6-14.8) Platelet Count 237 K/UL (150-450) Mean Platelet Volume 5.6 FL (6.5-10.1) Neutrophils (%) (Auto) 63.5 % (45.0-75.0) Lymphocytes (%) (Auto) 20.7 % (20.0-45.0) Monocytes (%) (Auto) 11.6 % (1.0-10.0) Eosinophils (%) (Auto) 3.3 % (0.0-3.0) Basophils (%) (Auto) 0.9 % (0.0-2.0) Sodium Level 146 MMOL/L (136-145) Potassium Level 3.8 MMOL/L (3.5-5.1) Chloride Level 113 MMOL/L (98-107) Carbon Dioxide Level 18 MMOL/L (21-32) Anion Gap 15 mmol/L (5-15) Blood Urea Nitrogen 46 mg/dL (7-18) Creatinine 1.8 MG/DL (0.55-1.30) Estimat Glomerular Filtration Rate 28.0 mL/min (>60) Glucose Level 154 MG/DL (74-106) Uric Acid 8.9 MG/DL (2.6-7.2) Calcium Level 8.7 MG/DL (8.5-10.1) Phosphorus Level 3.3 MG/DL (2.5-4.9) Magnesium Level 2.5 MG/DL (1.8-2.4) Total Bilirubin 0.6 MG/DL (0.2-1.0) Direct Bilirubin 0.3 MG/DL (0.0-0.3) Aspartate Amino Transf (AST/SGOT) 40 U/L (15-37) Alanine Aminotransferase (ALT/SGPT) 46 U/L (12-78) Alkaline Phosphatase 267 U/L (46-116) Total Protein 6.0 G/DL (6.4-8.2) Albumin 2.7 G/DL (3.4-5.0) Height (Feet): 5 Height (Inches): 1.00 Weight (Pounds): 195 Objective Physical Exam: Vitals: reviewed General: NAD HEENT: nc, at Neck: supple Chest: clear breath sounds bilaterally Cardiovascular: RRR, no s3, s4 Abdomen: soft, nontender, nd Extremities: no cce, normal range of motion Neuro: alert and oriented Gu: ++Derick Hwang MD Jan 16, 2020 07:58
[2020-01-16 08:00] VITALS: BP 143/71
--- NOTE | 2020-01-16 08:14 | NUR ---
RADIOLOGY: PCXR COMPLETED 08HRS. NF
--- NOTE | 2020-01-16 08:26 | General Progress Note ---
Assessment/Plan Problem List: (1) Hypothyroidism ICD Codes: E03.9 - Hypothyroidism, unspecified SNOMED: 34336775 (2) Diabetes mellitus ICD Codes: E11.9 - Type 2 diabetes mellitus without complications SNOMED: 90067628 (3) Diabetic nephropathy ICD Codes: E11.21 - Type 2 diabetes mellitus with diabetic nephropathy SNOMED: 506501069 (4) Hypoglycemia ICD Codes: E16.2 - Hypoglycemia, unspecified SNOMED: 613207107 Status: stable, progressing Assessment/Plan: no recurrence of hypoglycemia after dextrose was stopped - continue glucose monitoring without insulin coverage - continue to hold Metformin - hypoglycemia protocol in order TSH elevated on Levothyroxine 75 mcg daily - dosage increased to 88 mcg daily - repeat TSH, free T4 in 4 weeks Subjective Allergies: Coded Allergies: No Known Allergies (Unverified , 10/10/19) All Systems: reviewed and negative except above Subjective events noted glucose values are stable without hypoglycemia Item Value Date Time Bedside Blood Glucose 136 mg/dl H 01/16/20 0630 Bedside Blood Glucose 176 mg/dl H 01/15/20 2114 Bedside Blood Glucose 257 mg/dl H 01/15/20 1633 Bedside Blood Glucose 132 mg/dl H 01/15/20 0630 Objective Last 24 Hour Vital Signs Date Time Temp Pulse Resp B/P (MAP) Pulse Ox O2 Delivery O2 Flow Rate FiO2 01/16/20 07:22 78 18 98 Room Air 21 01/16/20 05:56 142/66 01/16/20 05:56 142/66 01/16/20 04:00 97.3 78 18 142/66 (91) 98 01/16/20 04:00 77 01/16/20 00:00 97.1 80 20 128/66 (86) 98 01/16/20 00:00 73 01/15/20 21:09 128/62 01/15/20 21:09 128/62 01/15/20 21:00 Room Air 01/15/20 20:00 96.8 76 18 128/62 (84) 97 01/15/20 20:00 74 01/15/20 19:53 72 18 97 Room Air 21 01/15/20 18:06 84 132/80 01/15/20 16:01 78 01/15/20 16:00 98.0 84 20 132/80 (97) 98 01/15/20 13:50 140/82 3/24/20 13:49 140/82 01/15/20 13:30 97.5 81 23 140/82 97 Room Air 01/15/20 13:15 81 21 149/85 99 Room Air 01/15/20 13:05 81 18 124/89 100 Simple Mask 6 01/15/20 13:00 82 21 142/79 100 Simple Mask 6 01/15/20 12:59 82 18 99 01/15/20 12:58 82 16 100 01/15/20 12:55 97.2 82 24 120/78 100 Simple Mask 6 01/15/20 12:00 98.0 79 20 113/56 (75) 98 01/15/20 11:53 84 01/15/20 09:00 Room Air 01/15/20 08:45 76 115/60 Intake and Output 01/15/20 01/16/20 19:00 07:00 Intake Total 600 ml 230 ml Output Total 400 ml 400 ml Balance 200 ml -170 ml Intake Oral 480 ml 230 ml IV Total 120 ml Output Urine Total 400 ml 400 ml # Bowel Movements 2 2 Laboratory Tests 01/16/20 05:37: White Blood Count 6.2, Red Blood Count 3.10L, Hemoglobin 8.4L, Hematocrit 26.5L , Mean Corpuscular Volume 86, Mean Corpuscular Hemoglobin 27.0, Mean Corpuscular Hemoglobin Concent 31.6L, Red Cell Distribution Width 19.4H, Platelet Count 237, Mean Platelet Volume 5.6L, Neutrophils (%) (Auto) 63.5, Lymphocytes (%) (Auto) 20.7, Monocytes (%) (Auto) 11.6H, Eosinophils (%) (Auto) 3.3H, Basophils (%) (Auto) 0.9, Sodium Level 146H, Potassium Level 3.8, Chloride Level 113H, Carbon Dioxide Level 18L, Anion Gap 15, Blood Urea Nitrogen 46H, Creatinine 1.8H, Estimat Glomerular Filtration Rate 28.0, Glucose Level 154H, Uric Acid 8.9H, Calcium Level 8.7, Phosphorus Level 3.3, Magnesium Level 2.5H, Total Bilirubin 0.6, Direct Bilirubin 0.3, Aspartate Amino Transf ( AST/SGOT) 40H, Alanine Aminotransferase (ALT/SGPT) 46, Alkaline Phosphatase 267H , Total Protein 6.0L, Albumin 2.7L Height (Feet): 5 Height (Inches): 1.00 Weight (Pounds): 195 General Appearance: no apparent distress Neck: normal alignment Cardiovascular: normal rate Respiratory/Chest: lungs clear Abdomen: normal bowel sounds Objective Current Medications Medications (Trade) Dose Ordered Sig/Braeden Route PRN Reason Start Time Stop Time Status Last Admin Dose Admin Acetaminophen (Tylenol) 650 mg Q4H PRN ORAL fever 01/11/20 18:00 02/10/20 17:59 Albuterol/ Ipratropium (Albuterol/ Ipratropium) 3 ml Q6H PRN HHN dyspnea 01/11/20 18:00 01/16/20 17:59 01/13/20 03:42 Allopurinol (allopurinoL) 300 mg DAILY ORAL 01/12/20 10:15 02/11/20 10:14 01/15/20 08:44 Amlodipine Besylate (Norvasc) 5 mg BID ORAL 01/14/20 18:00 02/11/20 08:59 01/15/20 18:06 Aspirin (ASA) 81 mg DAILY ORAL 01/14/20 12:30 02/28/20 12:29 01/14/20 14:58 Atorvastatin Calcium (Lipitor) 80 mg QHS ORAL 01/11/20 21:00 04/10/20 20:59 01/15/20 21:09 Cefepime HCl 1 gm/ Dextrose 55 ml @ 110 mls/hr Q24H IVPB 01/13/20 13:00 01/20/20 12:59 01/15/20 13:50 Clonidine HCl (Catapres Tab) 0.1 mg Q4H PRN ORAL For High Blood Pressure 01/11/20 18:00 04/10/20 17:59 Dextrose (Dextrose 50%) 25 ml Q30M PRN IV Hypoglycemia 01/11/20 18:00 04/10/20 17:59 Dextrose (Dextrose 50%) 50 ml Q30M PRN IV Hypoglycemia 01/11/20 18:00 04/10/20 17:59 Docusate Sodium (Colace) 100 mg TID ORAL 01/11/20 18:00 02/10/20 17:59 01/15/20 08:44 Epoetin Shlomo (Epoetin Shlomo-EPBX(NON ESRD)) 10,000 unit TUE-TUE-TUE SUBQ 01/14/20 21:00 04/13/20 20:59 01/14/20 20:49 Hydralazine HCl (Apresoline) 50 mg Q8HR ORAL 01/14/20 14:00 04/12/20 11:59 01/16/20 05:56 Insulin Aspart (NovoLOG) BEFORE MEALS AND HS SUBQ 01/11/20 21:00 04/10/20 20:59 01/15/20 21:14 Iron Sucrose 100 mg/Sodium Chloride 60 ml @ 240 mls/hr BEDTIME IV 01/13/20 21:00 01/17/20 21:14 01/15/20 21:05 Isosorbide Dinitrate (Isordil) 10 mg Q8HR ORAL 01/14/20 14:00 02/13/20 13:59 01/16/20 05:56 Levothyroxine Sodium (Synthroid) 88 mcg ACBREAKFAST ORAL 01/15/20 06:30 02/11/20 06:29 01/16/20 05:56 Linaclotide (Linzess) 290 mcg BEFORE BREAKFAST ORAL 01/15/20 06:30 04/14/20 06:29 01/16/20 05:56 Linezolid 300 ml @ 300 mls/hr Q12H IVPB 01/14/20 15:00 01/21/20 14:59 01/16/20 02:30 Metolazone (Zaroxolyn) 5 mg DAILY ORAL 01/16/20 09:00 02/13/20 12:25 Olanzapine (ZyPREXA) 2.5 mg BEDTIME ORAL 01/13/20 23:15 02/27/20 23:14 01/15/20 21:09 Ondansetron HCl (Zofran) 4 mg Q6H PRN IVP Nausea & Vomiting 01/11/20 18:00 02/10/20 17:59 Pantoprazole (Protonix) 40 mg EVERY 12 HOURS ORAL 01/11/20 21:00 02/10/20 20:59 01/15/20 21:09 Polyethylene Glycol (Miralax) 17 gm HSPRN PRN ORAL Constipation 01/11/20 21:00 02/10/20 20:59 01/13/20 21:02 Potassium Chloride (K-Dur) 40 meq TWICE A DAY ORAL 01/14/20 11:00 04/13/20 10:59 01/15/20 18:07 Zolpidem Tartrate (Ambien) 5 mg HSPRN PRN ORAL Insomnia 01/11/20 21:00 01/18/20 20:59 Jake Alexander MD Jan 16, 2020 08:26
[2020-01-16] MEDS: Aspirin Baby 81mg ORAL SCH ×2 (08:34→08:44)
[2020-01-16] MEDS: Docusate 100mg cap ORAL SCH ×3 (08:34→17:44)
--- NOTE | 2020-01-16 08:51 | General Progress Note ---
Assessment/Plan Status: stable, progressing Assessment/Plan: 1. Iron-deficiency anemia. 2. Possible cirrhosis. 3. Hypoalbuminemia. 4. Obesity. 5. Chronic renal disease/acute renal failure. 6. Hypertension. 7. Diabetes. 8. Hypothyroidism. s/p one unit PRBC in this admission fu stool ob positive x2 s/p EGD and colonoscopy: SUMMARY OF FINDINGS: 1. Gastritis, status post biopsy. 2. Total of 11 polyps removed, see above for details. 3. Internal hemorrhoids. 4. Diverticulosis. 5. Total of 11 polyps removed. ABS us reviewed most likely has NAFLD fu hepatitis panel>>> neg ok for dc GI stand point Subjective ROS Limited/Unobtainable: Yes Allergies: Coded Allergies: No Known Allergies (Unverified , 10/10/19) Objective Last 24 Hour Vital Signs Date Time Temp Pulse Resp B/P (MAP) Pulse Ox O2 Delivery O2 Flow Rate FiO2 01/16/20 08:34 87 143/71 01/16/20 08:00 96.8 87 20 143/71 (95) 96 01/16/20 07:22 78 18 98 Room Air 21 01/16/20 05:56 142/66 01/16/20 05:56 142/66 01/16/20 04:00 97.3 78 18 142/66 (91) 98 01/16/20 04:00 77 01/16/20 00:00 97.1 80 20 128/66 (86) 98 01/16/20 00:00 73 01/15/20 21:09 128/62 01/15/20 21:09 128/62 01/15/20 21:00 Room Air 01/15/20 20:00 96.8 76 18 128/62 (84) 97 01/15/20 20:00 74 01/15/20 19:53 72 18 97 Room Air 21 01/15/20 18:06 84 132/80 01/15/20 16:01 78 01/15/20 16:00 98.0 84 20 132/80 (97) 98 01/15/20 13:50 140/82 01/15/20 13:49 140/82 01/15/20 13:30 97.5 81 23 140/82 97 Room Air 01/15/20 13:15 81 21 149/85 99 Room Air 01/15/20 13:05 81 18 124/89 100 Simple Mask 6 01/15/20 13:00 82 21 142/79 100 Simple Mask 6 01/15/20 12:59 82 18 99 01/15/20 12:58 82 16 100 01/15/20 12:55 97.2 82 24 120/78 100 Simple Mask 6 01/15/20 12:00 98.0 79 20 113/56 (75) 98 01/15/20 11:53 84 01/15/20 09:00 Room Air Intake and Output 01/15/20 01/16/20 19:00 07:00 Intake Total 600 ml 230 ml Output Total 400 ml 400 ml Balance 200 ml -170 ml Intake Oral 480 ml 230 ml IV Total 120 ml Output Urine Total 400 ml 400 ml # Bowel Movements 2 2 Laboratory Tests 01/16/20 05:37: White Blood Count 6.2, Red Blood Count 3.10L, Hemoglobin 8.4L, Hematocrit 26.5L , Mean Corpuscular Volume 86, Mean Corpuscular Hemoglobin 27.0, Mean Corpuscular Hemoglobin Concent 31.6L, Red Cell Distribution Width 19.4H, Platelet Count 237, Mean Platelet Volume 5.6L, Neutrophils (%) (Auto) 63.5, Lymphocytes (%) (Auto) 20.7, Monocytes (%) (Auto) 11.6H, Eosinophils (%) (Auto) 3.3H, Basophils (%) (Auto) 0.9, Sodium Level 146H, Potassium Level 3.8, Chloride Level 113H, Carbon Dioxide Level 18L, Anion Gap 15, Blood Urea Nitrogen 46H, Creatinine 1.8H, Estimat Glomerular Filtration Rate 28.0, Glucose Level 154H, Uric Acid 8.9H, Calcium Level 8.7, Phosphorus Level 3.3, Magnesium Level 2.5H, Total Bilirubin 0.6, Direct Bilirubin 0.3, Aspartate Amino Transf ( AST/SGOT) 40H, Alanine Aminotransferase (ALT/SGPT) 46, Alkaline Phosphatase 267H , Total Protein 6.0L, Albumin 2.7L Height (Feet): 5 Height (Inches): 1.00 Weight (Pounds): 195 General Appearance: alert EENT: normal ENT inspection Neck: supple Cardiovascular: normal rate Respiratory/Chest: decreased breath sounds Abdomen: normal bowel sounds, non tender, soft Extremities: non-tender Vosoghi,Francois MD Jan 16, 2020 08:51
--- NOTE | 2020-01-16 09:23 | General Progress Note ---
Assessment/Plan Problem List: (1) Renal failure (ARF), acute on chronic ICD Codes: N17.9 - Acute kidney failure, unspecified; N18.9 - Chronic kidney disease, unspecified SNOMED: 025741218 Qualifiers: Qualified Codes: N17.9 - Acute kidney failure, unspecified; N18.9 - Chronic kidney disease, unspecified (2) History of hypertension ICD Codes: Z86.79 - Personal history of other diseases of the circulatory system SNOMED: 399942857 (3) Diabetes mellitus ICD Codes: E11.9 - Type 2 diabetes mellitus without complications SNOMED: 81945689 (4) Pleural effusion ICD Codes: J90 - Pleural effusion, not elsewhere classified SNOMED: 42045407 (5) Anemia ICD Codes: D64.9 - Anemia, unspecified SNOMED: 021809141 Qualifiers: Qualified Codes: D64.9 - Anemia, unspecified (6) Hypoglycemia ICD Codes: E16.2 - Hypoglycemia, unspecified SNOMED: 402368455 Status: stable, progressing Assessment/Plan: pt deit eval bp bs control cbc bmp am dc plan w hh Subjective Constitutional: Reports: weakness Allergies: Coded Allergies: No Known Allergies (Unverified , 10/10/19) All Systems: reviewed and negative except above Subjective o2nc calm in bed Objective Last 24 Hour Vital Signs Date Time Temp Pulse Resp B/P (MAP) Pulse Ox O2 Delivery O2 Flow Rate FiO2 01/16/20 08:34 87 143/71 01/16/20 08:00 96.8 87 20 143/71 (95) 96 01/16/20 07:22 78 18 98 Room Air 21 01/16/20 05:56 142/66 01/16/20 05:56 142/66 01/16/20 04:00 97.3 78 18 142/66 (91) 98 01/16/20 04:00 77 01/16/20 00:00 97.1 80 20 128/66 (86) 98 01/16/20 00:00 73 01/15/20 21:09 128/62 01/15/20 21:09 128/62 01/15/20 21:00 Room Air 01/15/20 20:00 96.8 76 18 128/62 (84) 97 01/15/20 20:00 74 01/15/20 19:53 72 18 97 Room Air 21 01/15/20 18:06 84 132/80 01/15/20 16:01 78 01/15/20 16:00 98.0 84 20 132/80 (97) 98 01/15/20 13:50 140/82 01/15/20 13:49 140/82 01/15/20 13:30 97.5 81 23 140/82 97 Room Air 01/15/20 13:15 81 21 149/85 99 Room Air 01/15/20 13:05 81 18 124/89 100 Simple Mask 6 01/15/20 13:00 82 21 142/79 100 Simple Mask 6 01/15/20 12:59 82 18 99 01/15/20 12:58 82 16 100 01/15/20 12:55 97.2 82 24 120/78 100 Simple Mask 6 01/15/20 12:00 98.0 79 20 113/56 (75) 98 01/15/20 11:53 84 Intake and Output 01/15/20 01/16/20 19:00 07:00 Intake Total 600 ml 230 ml Output Total 400 ml 400 ml Balance 200 ml -170 ml Intake Oral 480 ml 230 ml IV Total 120 ml Output Urine Total 400 ml 400 ml # Bowel Movements 2 2 Laboratory Tests 01/16/20 05:37: White Blood Count 6.2, Red Blood Count 3.10L, Hemoglobin 8.4L, Hematocrit 26.5L , Mean Corpuscular Volume 86, Mean Corpuscular Hemoglobin 27.0, Mean Corpuscular Hemoglobin Concent 31.6L, Red Cell Distribution Width 19.4H, Platelet Count 237, Mean Platelet Volume 5.6L, Neutrophils (%) (Auto) 63.5, Lymphocytes (%) (Auto) 20.7, Monocytes (%) (Auto) 11.6H, Eosinophils (%) (Auto) 3.3H, Basophils (%) (Auto) 0.9, Sodium Level 146H, Potassium Level 3.8, Chloride Level 113H, Carbon Dioxide Level 18L, Anion Gap 15, Blood Urea Nitrogen 46H, Creatinine 1.8H, Estimat Glomerular Filtration Rate 28.0, Glucose Level 154H, Uric Acid 8.9H, Calcium Level 8.7, Phosphorus Level 3.3, Magnesium Level 2.5H, Total Bilirubin 0.6, Direct Bilirubin 0.3, Aspartate Amino Transf ( AST/SGOT) 40H, Alanine Aminotransferase (ALT/SGPT) 46, Alkaline Phosphatase 267H , Total Protein 6.0L, Albumin 2.7L Height (Feet): 5 Height (Inches): 1.00 Weight (Pounds): 195 General Appearance: lethargic EENT: normal ENT inspection Neck: normal alignment Cardiovascular: normal peripheral pulses, normal rate, regular rhythm Respiratory/Chest: chest wall non-tender, lungs clear, normal breath sounds Extremities: normal inspection Edema: no edema noted Arm (L), no edema noted Arm (R), no edema noted Leg (L), no edema noted Leg (R), no edema noted Pedal (L), no edema noted Pedal (R), no edema noted Generalized Neurologic: motor weakness Skin: normal pigmentation, warm/dry Dyllan King DO Jan 16, 2020 09:23
--- NOTE | 2020-01-16 09:50 | NUR ---
CASE MANAGEMENT:REVIEW 01/16/20 SI: AC/CHR RENAL FAILURE. BACTEREMIA PLEURAL EFFUSION. ANEMIA......S/P 1 UNIT PRBC'S S/P EGD/COLONOSCOPY(11 POLYPS REMOVED,GASTRITIS,BIOPSY) IS: IV LINEZOLID Q12 IV CEFEPIME Q24 IV VENOFER QHS EPOETIN SQ MWF NORVASC PO BID HYDRALAZINE PO Q8HRS ISORDIL PO Q8HRS ASA PO QD ZAROXOLYN PO QD ZYPREXA PO QHS : TELEMETRY STATUS DCP: FROM HOME PLAN: AWAIT PULMONARY CLEARANCE FOR DISCHARGE
--- NOTE | 2020-01-16 10:01 | NUR ---
DISCHARGE PLANNING NURSING TO OBTAIN PULMONARY CLEARANCE FOR DISCHARGE [employer] UNIT ASSEMBLER WILL REFER PATIENT TO HOME HEALTH FOR NURSE VISIT
--- NOTE | 2020-01-16 10:30 | NUR ---
*-*DISCHARGE PLANNING*-* CLINICALS FAXED TO: [facility] P:[phone] F:[phone] DOE FOR ACCEPTANCE
--- NOTE | 2020-01-16 11:30 | Diagnostic Imaging Report ---
Indication: Dyspnea Comparison: 01/14/2020 A single view chest radiograph was obtained. Findings: Pulmonary edema is improved since the last occasion though there is still evidence of some prominent pulmonary vessels throughout both lung akins. Heart remains enlarged but also improved in size. There is a persistent right pleural effusion. IMPRESSION: Mild pulmonary vessel congestion, significantly improved over the last 2 days. Persistent moderate right pleural effusion
--- NOTE | 2020-01-16 11:46 | NUR ---
NURSE NOTES: Received an order from Dr. King, for discharge once cleared with Dr. Cool. Spoke to Dr. Cool and he said that will observed for 4 hours after her thoracentesis. Spoke to Ludy from case management assistant.
[2020-01-16 12:00] VITALS: BP 135/66
--- NOTE | 2020-01-16 12:03 | Pulmonology Progress Note ---
Assessment/Plan Problems: (1) Pleural effusion (2) Renal failure (ARF), acute on chronic (3) Hypoglycemia (4) Anemia (5) Moderate pulmonary arterial systolic hypertension (6) Cardiac left ventricular ejection fraction greater than 40 percent (7) Grade I diastolic dysfunction (8) History of hypertension (9) Diabetic nephropathy Assessment/Plan EGD yesterday cxr reviewed, pt needs thoracentesis, scheduled for today watch bun/creatinine all reviewed check cultures, last blood cultures are negative prbc prn Subjective ROS Limited/Unobtainable: No Constitutional: Reports: no symptoms HEENT: Repors: no symptoms Allergies: Coded Allergies: No Known Allergies (Unverified , 10/10/19) Objective Last 24 Hour Vital Signs Date Time Temp Pulse Resp B/P (MAP) Pulse Ox O2 Delivery O2 Flow Rate FiO2 01/16/20 09:00 Room Air 01/16/20 08:34 87 143/71 01/16/20 08:00 96.8 87 20 143/71 (95) 96 01/16/20 08:00 84 01/16/20 07:22 78 18 98 Room Air 21 01/16/20 05:56 142/66 01/16/20 05:56 142/66 01/16/20 04:00 97.3 78 18 142/66 (91) 98 01/16/20 04:00 77 01/16/20 00:00 97.1 80 20 128/66 (86) 98 01/16/20 00:00 73 01/15/20 21:09 128/62 01/15/20 21:09 128/62 01/15/20 21:00 Room Air 01/15/20 20:00 96.8 76 18 128/62 (84) 97 01/15/20 20:00 74 01/15/20 19:53 72 18 97 Room Air 21 01/15/20 18:06 84 132/80 01/15/20 16:01 78 01/15/20 16:00 98.0 84 20 132/80 (97) 98 01/15/20 13:50 140/82 01/15/20 13:49 140/82 01/15/20 13:30 97.5 81 23 140/82 97 Room Air 01/15/20 13:15 81 21 149/85 99 Room Air 01/15/20 13:05 81 18 124/89 100 Simple Mask 6 01/15/20 13:00 82 21 142/79 100 Simple Mask 6 01/15/20 12:59 82 18 99 01/15/20 12:58 82 16 100 01/15/20 12:55 97.2 82 24 120/78 100 Simple Mask 6 Intake and Output 01/15/20 01/16/20 19:00 07:00 Intake Total 600 ml 230 ml Output Total 400 ml 400 ml Balance 200 ml -170 ml Intake Oral 480 ml 230 ml IV Total 120 ml Output Urine Total 400 ml 400 ml # Bowel Movements 2 2 General Appearance: WD/WN HEENT: normocephalic, atraumatic Respiratory/Chest: chest wall non-tender, normal breath sounds Breasts: no masses Cardiovascular: normal rate Abdomen: normal bowel sounds, soft, non tender Genitourinary: normal external genitalia Extremities: no clubbing Neurologic/Psychiatric: certified cytotechnologist II-XII grossly normal Laboratory Tests 01/16/20 05:37: White Blood Count 6.2, Red Blood Count 3.10L, Hemoglobin 8.4L, Hematocrit 26.5L , Mean Corpuscular Volume 86, Mean Corpuscular Hemoglobin 27.0, Mean Corpuscular Hemoglobin Concent 31.6L, Red Cell Distribution Width 19.4H, Platelet Count 237, Mean Platelet Volume 5.6L, Neutrophils (%) (Auto) 63.5, Lymphocytes (%) (Auto) 20.7, Monocytes (%) (Auto) 11.6H, Eosinophils (%) (Auto) 3.3H, Basophils (%) (Auto) 0.9, Sodium Level 146H, Potassium Level 3.8, Chloride Level 113H, Carbon Dioxide Level 18L, Anion Gap 15, Blood Urea Nitrogen 46H, Creatinine 1.8H, Estimat Glomerular Filtration Rate 28.0, Glucose Level 154H, Uric Acid 8.9H, Calcium Level 8.7, Phosphorus Level 3.3, Magnesium Level 2.5H, Total Bilirubin 0.6, Direct Bilirubin 0.3, Aspartate Amino Transf ( AST/SGOT) 40H, Alanine Aminotransferase (ALT/SGPT) 46, Alkaline Phosphatase 267H , Total Protein 6.0L, Albumin 2.7L Current Medications Medications (Trade) Dose Ordered Sig/Braeden Route PRN Reason Start Time Stop Time Status Last Admin Dose Admin Acetaminophen (Tylenol) 650 mg Q4H PRN ORAL fever 01/11/20 18:00 02/10/20 17:59 Albuterol/ Ipratropium (Albuterol/ Ipratropium) 3 ml Q6H PRN HHN dyspnea 01/11/20 18:00 01/16/20 17:59 01/13/20 03:42 Allopurinol (allopurinoL) 300 mg DAILY ORAL 01/12/20 10:15 02/11/20 10:14 01/16/20 08:34 Amlodipine Besylate (Norvasc) 5 mg BID ORAL 01/14/20 18:00 02/11/20 08:59 01/16/20 08:34 Aspirin (ASA) 81 mg DAILY ORAL 01/14/20 12:30 02/28/20 12:29 01/14/20 14:58 Atorvastatin Calcium (Lipitor) 80 mg QHS ORAL 01/11/20 21:00 04/10/20 20:59 01/15/20 21:09 Cefepime HCl 1 gm/ Dextrose 55 ml @ 110 mls/hr Q24H IVPB 01/13/20 13:00 01/20/20 12:59 01/15/20 13:50 Clonidine HCl (Catapres Tab) 0.1 mg Q4H PRN ORAL For High Blood Pressure 01/11/20 18:00 04/10/20 17:59 Dextrose (Dextrose 50%) 25 ml Q30M PRN IV Hypoglycemia 01/11/20 18:00 04/10/20 17:59 Dextrose (Dextrose 50%) 50 ml Q30M PRN IV Hypoglycemia 01/11/20 18:00 04/10/20 17:59 Docusate Sodium (Colace) 100 mg TID ORAL 01/11/20 18:00 02/10/20 17:59 01/16/20 08:34 Epoetin Shlomo (Epoetin Shlomo-EPBX(NON ESRD)) 10,000 unit TUE-TUE-TUE SUBQ 01/14/20 21:00 04/13/20 20:59 01/14/20 20:49 Hydralazine HCl (Apresoline) 50 mg Q8HR ORAL 01/14/20 14:00 04/12/20 11:59 01/16/20 05:56 Insulin Aspart (NovoLOG) BEFORE MEALS AND HS SUBQ 01/11/20 21:00 04/10/20 20:59 01/15/20 21:14 Iron Sucrose 100 mg/Sodium Chloride 60 ml @ 240 mls/hr BEDTIME IV 01/13/20 21:00 01/17/20 21:14 01/15/20 21:05 Isosorbide Dinitrate (Isordil) 10 mg Q8HR ORAL 01/14/20 14:00 02/13/20 13:59 01/16/20 05:56 Levothyroxine Sodium (Synthroid) 88 mcg ACBREAKFAST ORAL 01/15/20 06:30 02/11/20 06:29 01/16/20 05:56 Linaclotide (Linzess) 290 mcg BEFORE BREAKFAST ORAL 01/15/20 06:30 04/14/20 06:29 01/16/20 05:56 Linezolid 300 ml @ 300 mls/hr Q12H IVPB 01/14/20 15:00 01/21/20 14:59 01/16/20 02:30 Metolazone (Zaroxolyn) 5 mg DAILY ORAL 01/16/20 09:00 02/13/20 12:25 01/16/20 08:34 Olanzapine (ZyPREXA) 2.5 mg BEDTIME ORAL 01/13/20 23:15 02/27/20 23:14 01/15/20 21:09 Ondansetron HCl (Zofran) 4 mg Q6H PRN IVP Nausea & Vomiting 01/11/20 18:00 02/10/20 17:59 Pantoprazole (Protonix) 40 mg EVERY 12 HOURS ORAL 01/11/20 21:00 02/10/20 20:59 01/16/20 08:34 Polyethylene Glycol (Miralax) 17 gm HSPRN PRN ORAL Constipation 01/11/20 21:00 02/10/20 20:59 01/13/20 21:02 Potassium Chloride (K-Dur) 40 meq TWICE A DAY ORAL 01/14/20 11:00 04/13/20 10:59 01/16/20 08:34 Zolpidem Tartrate (Ambien) 5 mg HSPRN PRN ORAL Insomnia 01/11/20 21:00 01/18/20 20:59 Tiana Cool MD Jan 16, 2020 12:03
[2020-01-16] MEDS: Cefepime HCl 1 GM in D5W 55 ML IVPB SCH (13:29)
--- NOTE | 2020-01-16 13:30 | NUR ---
NURSE NOTES: Status post thoracentesis via ultrasound guided. Yielded 1.2 Liters, specimen sent to laboratory. Chest x-ray was done, result is no pneumothorax.
--- NOTE | 2020-01-16 13:42 | Nephrology Progress Note ---
Assessment/Plan Problem List: (1) Renal failure (ARF), acute on chronic (2) Diabetes mellitus (3) Hypoglycemia (4) Hyperkalemia (5) Diabetic nephropathy Assessment Renal failure (ARF), acute on chronic Hyperkalemia Hypoglycemia Anemia Pleural effusion Morbid obesity Plan DC Chan catheter Stop IV fluid and start diuretics Add hydralazine for afterload reduction Monitor 24-hour urine collection for total protein 2D echocardiogram ejection fraction is reported to 50% Kidney ultrasound noted Anemia work-up leading to low iron intravenous iron ordered As needed Kayexalate for high potassium Urine studies Keep blood pressure and blood sugar in check Monitor renal parameters Subjective ROS Limited/Unobtainable: No Constitutional: Reports: malaise Objective Objective Last 24 Hour Vital Signs Date Time Temp Pulse Resp B/P (MAP) Pulse Ox O2 Delivery O2 Flow Rate FiO2 01/16/20 12:00 98.1 83 20 135/66 (89) 98 01/16/20 09:00 Room Air 01/16/20 08:34 87 143/71 01/16/20 08:00 96.8 87 20 143/71 (95) 96 01/16/20 08:00 84 01/16/20 07:22 78 18 98 Room Air 21 01/16/20 05:56 142/66 01/16/20 05:56 142/66 01/16/20 04:00 97.3 78 18 142/66 (91) 98 01/16/20 04:00 77 01/16/20 00:00 97.1 80 20 128/66 (86) 98 01/16/20 00:00 73 01/15/20 21:09 128/62 01/15/20 21:09 128/62 01/15/20 21:00 Room Air 01/15/20 20:00 96.8 76 18 128/62 (84) 97 01/15/20 20:00 74 01/15/20 19:53 72 18 97 Room Air 21 01/15/20 18:06 84 132/80 01/15/20 16:01 78 01/15/20 16:00 98.0 84 20 132/80 (97) 98 01/15/20 13:50 140/82 01/15/20 13:49 140/82 Intake and Output 01/15/20 01/16/20 19:00 07:00 Intake Total 600 ml 230 ml Output Total 400 ml 400 ml Balance 200 ml -170 ml Intake Oral 480 ml 230 ml IV Total 120 ml Output Urine Total 400 ml 400 ml # Bowel Movements 2 2 Current Medications Medications (Trade) Dose Ordered Sig/Braeden Route PRN Reason Start Time Stop Time Status Last Admin Dose Admin Acetaminophen (Tylenol) 650 mg Q4H PRN ORAL fever 01/11/20 18:00 02/10/20 17:59 Albuterol/ Ipratropium (Albuterol/ Ipratropium) 3 ml Q6H PRN HHN dyspnea 01/11/20 18:00 01/16/20 17:59 01/13/20 03:42 Allopurinol (allopurinoL) 300 mg DAILY ORAL 01/12/20 10:15 02/11/20 10:14 01/16/20 08:34 Amlodipine Besylate (Norvasc) 5 mg BID ORAL 01/14/20 18:00 02/11/20 08:59 01/16/20 08:34 Aspirin (ASA) 81 mg DAILY ORAL 01/14/20 12:30 02/28/20 12:29 01/14/20 14:58 Atorvastatin Calcium (Lipitor) 80 mg QHS ORAL 01/11/20 21:00 04/10/20 20:59 01/15/20 21:09 Cefepime HCl 1 gm/ Dextrose 55 ml @ 110 mls/hr Q24H IVPB 01/13/20 13:00 01/20/20 12:59 01/15/20 13:50 Clonidine HCl (Catapres Tab) 0.1 mg Q4H PRN ORAL For High Blood Pressure 01/11/20 18:00 04/10/20 17:59 Dextrose (Dextrose 50%) 25 ml Q30M PRN IV Hypoglycemia 01/11/20 18:00 04/10/20 17:59 Dextrose (Dextrose 50%) 50 ml Q30M PRN IV Hypoglycemia 01/11/20 18:00 04/10/20 17:59 Docusate Sodium (Colace) 100 mg TID ORAL 01/11/20 18:00 02/10/20 17:59 01/16/20 08:34 Epoetin Shlomo (Epoetin Shlomo-EPBX(NON ESRD)) 10,000 unit TUE-TUE-TUE SUBQ 01/14/20 21:00 04/13/20 20:59 01/14/20 20:49 Hydralazine HCl (Apresoline) 50 mg Q8HR ORAL 01/14/20 14:00 04/12/20 11:59 01/16/20 05:56 Insulin Aspart (NovoLOG) BEFORE MEALS AND HS SUBQ 01/11/20 21:00 04/10/20 20:59 01/15/20 21:14 Iron Sucrose 100 mg/Sodium Chloride 60 ml @ 240 mls/hr BEDTIME IV 01/13/20 21:00 01/17/20 21:14 01/15/20 21:05 Isosorbide Dinitrate (Isordil) 10 mg Q8HR ORAL 01/14/20 14:00 02/13/20 13:59 01/16/20 05:56 Levothyroxine Sodium (Synthroid) 88 mcg ACBREAKFAST ORAL 01/15/20 06:30 02/11/20 06:29 01/16/20 05:56 Linaclotide (Linzess) 290 mcg BEFORE BREAKFAST ORAL 01/15/20 06:30 04/14/20 06:29 01/16/20 05:56 Linezolid 300 ml @ 300 mls/hr Q12H IVPB 01/14/20 15:00 01/21/20 14:59 01/16/20 02:30 Metolazone (Zaroxolyn) 5 mg DAILY ORAL 01/16/20 09:00 02/13/20 12:25 01/16/20 08:34 Olanzapine (ZyPREXA) 2.5 mg BEDTIME ORAL 01/13/20 23:15 02/27/20 23:14 01/15/20 21:09 Ondansetron HCl (Zofran) 4 mg Q6H PRN IVP Nausea & Vomiting 01/11/20 18:00 02/10/20 17:59 Pantoprazole (Protonix) 40 mg EVERY 12 HOURS ORAL 01/11/20 21:00 02/10/20 20:59 01/16/20 08:34 Polyethylene Glycol (Miralax) 17 gm HSPRN PRN ORAL Constipation 01/11/20 21:00 02/10/20 20:59 01/13/20 21:02 Potassium Chloride (K-Dur) 40 meq TWICE A DAY ORAL 01/14/20 11:00 04/13/20 10:59 01/16/20 08:34 Zolpidem Tartrate (Ambien) 5 mg HSPRN PRN ORAL Insomnia 01/11/20 21:00 01/18/20 20:59 Laboratory Tests 01/16/20 05:37: White Blood Count 6.2, Red Blood Count 3.10L, Hemoglobin 8.4L, Hematocrit 26.5L , Mean Corpuscular Volume 86, Mean Corpuscular Hemoglobin 27.0, Mean Corpuscular Hemoglobin Concent 31.6L, Red Cell Distribution Width 19.4H, Platelet Count 237, Mean Platelet Volume 5.6L, Neutrophils (%) (Auto) 63.5, Lymphocytes (%) (Auto) 20.7, Monocytes (%) (Auto) 11.6H, Eosinophils (%) (Auto) 3.3H, Basophils (%) (Auto) 0.9, Sodium Level 146H, Potassium Level 3.8, Chloride Level 113H, Carbon Dioxide Level 18L, Anion Gap 15, Blood Urea Nitrogen 46H, Creatinine 1.8H, Estimat Glomerular Filtration Rate 28.0, Glucose Level 154H, Uric Acid 8.9H, Calcium Level 8.7, Phosphorus Level 3.3, Magnesium Level 2.5H, Total Bilirubin 0.6, Direct Bilirubin 0.3, Aspartate Amino Transf ( AST/SGOT) 40H, Alanine Aminotransferase (ALT/SGPT) 46, Alkaline Phosphatase 267H , Total Protein 6.0L, Albumin 2.7L Height (Feet): 5 Height (Inches): 1.00 Weight (Pounds): 195 General Appearance: no apparent distress Objective No change Jay Severino MD Jan 16, 2020 13:42
--- NOTE | 2020-01-16 13:56 | Diagnostic Imaging Report ---
Indication: Status post thoracentesis Comparison: None A single view chest radiograph was obtained. Findings: There is no pneumothorax. The right pleural effusion appears less. There is suggestion of right basal atelectasis with a ill-defined parenchymal density present. There is a probable small residual effusion. Cardiomegaly is noted. IMPRESSION: No pneumothorax
--- NOTE | 2020-01-16 14:03 | Diagnostic Imaging Report ---
Indications: Pleural effusion Technique: Ultrasound used to localize optimal puncture site. Sterile prepping and draping of the right lower chest performed. Local anesthesia with 1% lidocaine. Dermatotomy made. Puncture of the pleural space using thoracentesis needle. Stylet removed. Catheter placed to vacuum bottle suction. Fluid was aspirated. Patient tolerated procedure well, without immediate complication. Findings: Followup sonography demonstrates complete resolution of pleural fluid. Followup chest x-ray is pending. Impression: Successful ultrasound-guided right thoracentesis, yielding 1.2 liters of fluid
--- NOTE | 2020-01-16 15:07 | NUR ---
INSURANCE CLINICALS AND REVIEWS FAXED TO STEFANIE ALVAREZ T: [phone] F: [phone] [facility]# 2020 0320 [id number]
--- NOTE | 2020-01-16 15:16 | NUR ---
NURSE NOTES: Received order from Dr. Severino. Explained to patient, removed the catheter. Tolerated well, tubing is intact.
[2020-01-16 16:00] VITALS: BP 130/73
--- NOTE | 2020-01-16 16:30 | NUR ---
NURSE NOTES: Spoke to Dr. Cool, he ordered discharge after 2nd chest x-ray @ 1900. Discharge papers was made. Spoke to responsible libertarian "pattie" he's going to pick-up the patient tonight.
--- NOTE | 2020-01-16 18:17 | Cardiology Progress Note ---
Assessment/Plan Assessment/Plan bacteremia heat failure ? diastolic CAD (coronary artery disease) recent cabg Renal failure (ARF), acute on chronic Hyperkalemia History of hypertension Left bundle branch block (LBBB) (chronicity unknown) some record form outside hospital noted and reviewed getting bowel prep for colonoscopy diuretic to keep neg fluid status echo ef 45-50% midl diastolic dysfunction cr improved repeat trop in am repeat ekg s/p thoracentesis iv lasix on pos zaroxolyn Subjective Cardiovascular: Denies: chest pain, lightheadedness, palpitations Respiratory: Denies: shortness of breath Gastrointestinal/Abdominal: Denies: abdominal pain Objective Last 24 Hour Vital Signs Date Time Temp Pulse Resp B/P (MAP) Pulse Ox O2 Delivery O2 Flow Rate FiO2 01/16/20 17:43 79 130/73 01/16/20 16:00 79 01/16/20 16:00 96.7 81 19 130/73 (92) 97 01/16/20 13:28 135/66 01/16/20 13:28 135/66 01/16/20 12:00 98.1 83 20 135/66 (89) 98 01/16/20 12:00 79 01/16/20 09:00 Room Air 01/16/20 08:34 87 143/71 01/16/20 08:00 96.8 87 20 143/71 (95) 96 01/16/20 08:00 84 01/16/20 07:22 78 18 98 Room Air 21 01/16/20 05:56 142/66 01/16/20 05:56 142/66 01/16/20 04:00 97.3 78 18 142/66 (91) 98 01/16/20 04:00 77 01/16/20 00:00 97.1 80 20 128/66 (86) 98 01/16/20 00:00 73 01/15/20 21:09 128/62 01/15/20 21:09 128/62 01/15/20 21:00 Room Air 01/15/20 20:00 96.8 76 18 128/62 (84) 97 01/15/20 20:00 74 01/15/20 19:53 72 18 97 Room Air 21 General Appearance: no apparent distress, alert Neck: normal alignment Cardiovascular: normal rate Respiratory/Chest: lungs clear Abdomen: normal bowel sounds, non tender, soft Extremities: moderate edema Intake and Output 01/15/20 01/16/20 19:00 07:00 Intake Total 600 ml 230 ml Output Total 400 ml 400 ml Balance 200 ml -170 ml Intake Oral 480 ml 230 ml IV Total 120 ml Output Urine Total 400 ml 400 ml # Bowel Movements 2 2 Laboratory Tests Test 01/16/20 05:37 01/16/20 13:41 White Blood Count 6.2 K/UL (4.8-10.8) Red Blood Count 3.10 M/UL (4.20-5.40) L Hemoglobin 8.4 G/DL (12.0-16.0) L Hematocrit 26.5 % (37.0-47.0) L Mean Corpuscular Volume 86 FL (80-99) Mean Corpuscular Hemoglobin 27.0 PG (27.0-31.0) Mean Corpuscular Hemoglobin Concent 31.6 G/DL (32.0-36.0) L Red Cell Distribution Width 19.4 % (11.6-14.8) H Platelet Count 237 K/UL (150-450) Mean Platelet Volume 5.6 FL (6.5-10.1) L Neutrophils (%) (Auto) 63.5 % (45.0-75.0) Lymphocytes (%) (Auto) 20.7 % (20.0-45.0) Monocytes (%) (Auto) 11.6 % (1.0-10.0) H Eosinophils (%) (Auto) 3.3 % (0.0-3.0) H Basophils (%) (Auto) 0.9 % (0.0-2.0) Sodium Level 146 MMOL/L (136-145) H Potassium Level 3.8 MMOL/L (3.5-5.1) Chloride Level 113 MMOL/L (98-107) H Carbon Dioxide Level 18 MMOL/L (21-32) L Anion Gap 15 mmol/L (5-15) Blood Urea Nitrogen 46 mg/dL (7-18) H Creatinine 1.8 MG/DL (0.55-1.30) H Estimat Glomerular Filtration Rate 28.0 mL/min (>60) Glucose Level 154 MG/DL (74-106) H Uric Acid 8.9 MG/DL (2.6-7.2) H Calcium Level 8.7 MG/DL (8.5-10.1) Phosphorus Level 3.3 MG/DL (2.5-4.9) Magnesium Level 2.5 MG/DL (1.8-2.4) H Total Bilirubin 0.6 MG/DL (0.2-1.0) Direct Bilirubin 0.3 MG/DL (0.0-0.3) Aspartate Amino Transf (AST/SGOT) 40 U/L (15-37) H Alanine Aminotransferase (ALT/SGPT) 46 U/L (12-78) Alkaline Phosphatase 267 U/L (46-116) H Total Protein 6.0 G/DL (6.4-8.2) L Albumin 2.7 G/DL (3.4-5.0) L Body Fluid Source Thoracentesis Body Fluid Volume 24 mL Body Fluid Appearance Clear (Clear) Body Fluid RBC 8 /CUMM Body Fluid Total Nucleated Cells 33 /CUMM Body Fluid Polynuclear WBCs (%) 14 % Body Fluid Mononuclear WBCs (%) 84 % Body Fluid Mesothelial Cells (%) 4 % Body Fluid Albumin Pending Sherwin Zelaya MD Jan 16, 2020 18:17
--- NOTE | 2020-01-16 19:08 | NUR ---
NURSE NOTES: Received report from BHAVIN Barriga. Patient is awake, alert, and talkative. Patient in semi-santana's position. Bed in lowest position. Call light placed within reach. Will continue to monitor.
--- NOTE | 2020-01-16 19:39 | NUR ---
HAND-OFF: Report given to Kulwant RN. Patient is for discharge tonight, awaiting chest xray result, RN's made aware to notify once x-ray result is in. Discharge papers printed and handed off to Kulwant. Patient is still no urine output at this time, RN's aware to follow it up.
[2020-01-16 20:00] VITALS: BP 139/73
--- NOTE | 2020-01-16 20:27 | Diagnostic Imaging Report ---
Indication: Status post right thoracentesis Comparison: 01/16/2020 A single view chest radiograph was obtained. Findings: Abnormal parenchymal density demonstrated within the right lung base with air bronchograms indicating air space disease, previously obscured by the moderate pleural effusion. No pneumothorax seen following thoracentesis. Less pleural fluid noted on the right. Heart is enlarged. Sternotomy again noted. IMPRESSION: No pneumothorax. Moderate airspace disease now identified within the right lung base.
[2020-01-16] MEDS: Iron Sucrose 100 MG in NS 55 ML IV SCH (20:43)
[2020-01-16] MEDS: OLANZapine 2.5mg tab ORAL SCH (20:51)
[2020-01-16] MEDS: Atorvastatin 80mg tab ORAL SCH (20:52)
--- NOTE | 2020-01-16 21:00 | Progress Note ---
DATE: 01/16/2020 SUBJECTIVE: The patient is calm and cooperative. No behavior issues noted. Manageable. Is interacting. Has episodes of anxiety. MENTAL STATUS EXAMINATION: The patient is alert and oriented times self and place. Mood is neutral. Affect is flat. Thought process is concrete. Thought content, no suicidal or homicidal ideation. ASSESSMENT: Stable. PLAN: 1. Continue current medications. 2. Provide the patient with reality orientation and supportive therapy. Aki Morris M.D. DR: MERA JOB#: [id number] CC:
[2020-01-16] MEDS: Epoetin Alfa-EPBX (NON ESRD)10,000 unit/ml vial SUBQ SCH (21:01)
--- NOTE | 2020-01-16 22:49 | NUR ---
NURSE NOTES: Reported patient's most recent CXR result to Dr. Cool. Awaiting call back.
[2020-01-17] VITALS: BP 123/79
--- NOTE | 2020-01-17 01:55 | NUR ---
NURSE NOTES: Patient is asleep in bed. No signs of acute distress or shortness of breath. 2L of oxygen per nasal cannula. Bed rails raised. Call light placed within reach. Able to make needs known. Will continue to monitor. Addendum: 01/17/20 at 0157 by Tati Magaña RN NURSE NOTES: Patient not on 2L of oxygen per nasal cannula. Patient on room air.
[2020-01-17 04:00] VITALS: BP 129/63
[2020-01-17] MEDS: HydrALAZINE 50mg tab ORAL SCH (05:18)
[2020-01-17] MEDS: NovoLOG Insulin Flexpen SUBQ SCH ×2 (05:25→11:30)
[2020-01-17 06:46] LABS: BASOPHILS % (AUTO) 0.7 % (0.0-2.0); EOSINOPHILS % (AUTO) 2.4 % (0.0-3.0); HEMATOCRIT 27.8 % (37.0-47.0); HEMOGLOBIN 8.7 G/DL (12.0-16.0); LYMPHOCYTES % (AUTO) 17.5 % (20.0-45.0); MEAN CORPUSCULAR VOLUME 86 FL (80-99); MONOCYTES % (AUTO) 9.5 % (1.0-10.0); NEUTROPHILS % (AUTO) 69.9 % (45.0-75.0); PLATELET COUNT 228 K/UL (150-450); RED BLOOD COUNT 3.24 M/UL (4.20-5.40); RED CELL DISTRIBUTION WIDTH 19.6 % (11.6-14.8); WHITE BLOOD COUNT 8.4 K/UL (4.8-10.8)
--- NOTE | 2020-01-17 06:54 | General Progress Note ---
Assessment/Plan Problem List: (1) Hypothyroidism ICD Codes: E03.9 - Hypothyroidism, unspecified SNOMED: 14811349 (2) Diabetes mellitus ICD Codes: E11.9 - Type 2 diabetes mellitus without complications SNOMED: 89287406 (3) Diabetic nephropathy ICD Codes: E11.21 - Type 2 diabetes mellitus with diabetic nephropathy SNOMED: 403047404 (4) Hypoglycemia ICD Codes: E16.2 - Hypoglycemia, unspecified SNOMED: 063793921 Status: stable, progressing Assessment/Plan: no recurrence of hypoglycemia after dextrose was stopped - continue glucose monitoring without insulin coverage - continue to hold Metformin - hypoglycemia protocol in order TSH elevated on Levothyroxine 75 mcg daily - dosage increased to 88 mcg daily - repeat TSH, free T4 in 4 weeks Subjective Allergies: Coded Allergies: No Known Allergies (Unverified , 10/10/19) All Systems: reviewed and negative except above Subjective events noted glucose values are stable without hypoglycemia Item Value Date Time Bedside Blood Glucose 155 mg/dl H 01/17/20 0600 Bedside Blood Glucose 146 mg/dl H 01/16/20 2053 Bedside Blood Glucose 185 mg/dl H 01/16/20 1746 Bedside Blood Glucose 179 mg/dl H 01/16/20 1339 Bedside Blood Glucose 136 mg/dl H 01/16/20 0630 Objective Last 24 Hour Vital Signs Date Time Temp Pulse Resp B/P (MAP) Pulse Ox O2 Delivery O2 Flow Rate FiO2 01/17/20 05:18 129/63 01/17/20 05:18 129/63 01/17/20 04:00 98.0 72 18 129/63 (85) 98 01/17/20 03:59 72 01/17/20 00:00 96.8 60 18 123/79 (94) 97 01/17/20 00:00 72 01/16/20 21:00 Room Air 01/16/20 20:52 139/73 01/16/20 20:52 139/73 01/16/20 20:00 97.7 70 18 139/73 (95) 98 01/16/20 17:43 79 130/73 01/16/20 16:00 79 01/16/20 16:00 96.7 81 19 130/73 (92) 97 01/16/20 13:28 135/66 01/16/20 13:28 135/66 01/16/20 12:00 98.1 83 20 135/66 (89) 98 01/16/20 12:00 79 01/16/20 09:00 Room Air 01/16/20 08:34 87 143/71 01/16/20 08:00 96.8 87 20 143/71 (95) 96 01/16/20 08:00 84 01/16/20 07:22 78 18 98 Room Air 21 Intake and Output 01/16/20 01/17/20 19:00 07:00 Intake Total 140 ml Output Total 900 ml Balance -760 ml Intake Oral 140 ml Output Urine Total 900 ml # Voids 5 # Bowel Movements 1 2 Laboratory Tests 01/16/20 13:41: Body Fluid Source Thoracentesis, Body Fluid Volume 24, Body Fluid Appearance Clear, Body Fluid RBC 8, Body Fluid Total Nucleated Cells 33, Body Fluid Polynuclear WBCs (%) 14, Body Fluid Mononuclear WBCs (%) 84, Body Fluid Mesothelial Cells (%) 4, Body Fluid Albumin [Pending] 01/17/20 05:49: White Blood Count [Pending], Red Blood Count [Pending], Hemoglobin [Pending], Hematocrit [Pending], Mean Corpuscular Volume [Pending], Mean Corpuscular Hemoglobin [Pending], Mean Corpuscular Hemoglobin Concent [Pending], Red Cell Distribution Width [Pending], Platelet Count [Pending], Mean Platelet Volume [ Pending], Neutrophils (%) (Auto) [Pending], Lymphocytes (%) (Auto) [Pending], Monocytes (%) (Auto) [Pending], Eosinophils (%) (Auto) [Pending], Basophils (%) (Auto) [Pending], Sodium Level [Pending], Potassium Level [Pending], Chloride Level [Pending], Carbon Dioxide Level [Pending], Blood Urea Nitrogen [Pending], Creatinine [Pending], Estimat Glomerular Filtration Rate [Pending], Glucose Level [Pending], Calcium Level [Pending] Height (Feet): 5 Height (Inches): 1.00 Weight (Pounds): 195 General Appearance: no apparent distress Neck: normal alignment Cardiovascular: normal rate Respiratory/Chest: lungs clear Abdomen: normal bowel sounds Objective Current Medications Medications (Trade) Dose Ordered Sig/Braeden Route PRN Reason Start Time Stop Time Status Last Admin Dose Admin Acetaminophen (Tylenol) 650 mg Q4H PRN ORAL fever 01/11/20 18:00 02/10/20 17:59 01/17/20 03:38 Allopurinol (allopurinoL) 300 mg DAILY ORAL 01/12/20 10:15 02/11/20 10:14 01/16/20 08:34 Amlodipine Besylate (Norvasc) 5 mg BID ORAL 01/14/20 18:00 02/11/20 08:59 01/16/20 17:43 Aspirin (ASA) 81 mg DAILY ORAL 01/14/20 12:30 02/28/20 12:29 01/14/20 14:58 Atorvastatin Calcium (Lipitor) 80 mg QHS ORAL 01/11/20 21:00 04/10/20 20:59 01/15/20 21:09 Cefepime HCl 1 gm/ Dextrose 55 ml @ 110 mls/hr Q24H IVPB 01/13/20 13:00 01/20/20 12:59 01/16/20 13:29 Clonidine HCl (Catapres Tab) 0.1 mg Q4H PRN ORAL For High Blood Pressure 01/11/20 18:00 04/10/20 17:59 Dextrose (Dextrose 50%) 25 ml Q30M PRN IV Hypoglycemia 01/11/20 18:00 04/10/20 17:59 Dextrose (Dextrose 50%) 50 ml Q30M PRN IV Hypoglycemia 01/11/20 18:00 04/10/20 17:59 Docusate Sodium (Colace) 100 mg TID ORAL 01/11/20 18:00 02/10/20 17:59 01/16/20 13:29 Epoetin Shlomo (Epoetin Shlomo-EPBX(NON ESRD)) 10,000 unit TUE-TUE-TUE SUBQ 01/14/20 21:00 04/13/20 20:59 01/16/20 21:01 Furosemide (Lasix) 20 mg ONCE IV 01/17/20 06:45 01/17/20 07:30 01/17/20 06:03 Hydralazine HCl (Apresoline) 50 mg Q8HR ORAL 01/14/20 14:00 04/12/20 11:59 01/17/20 05:18 Insulin Aspart (NovoLOG) BEFORE MEALS AND HS SUBQ 01/11/20 21:00 04/10/20 20:59 01/17/20 05:25 Iron Sucrose 100 mg/Sodium Chloride 60 ml @ 240 mls/hr BEDTIME IV 01/13/20 21:00 01/17/20 21:14 01/16/20 20:43 Isosorbide Dinitrate (Isordil) 10 mg Q8HR ORAL 01/14/20 14:00 02/13/20 13:59 01/17/20 05:18 Levothyroxine Sodium (Synthroid) 88 mcg ACBREAKFAST ORAL 01/15/20 06:30 02/11/20 06:29 01/17/20 05:18 Linaclotide (Linzess) 290 mcg BEFORE BREAKFAST ORAL 01/15/20 06:30 04/14/20 06:29 01/17/20 05:19 Linezolid 300 ml @ 300 mls/hr Q12H IVPB 01/14/20 15:00 01/21/20 14:59 01/17/20 03:06 Metolazone (Zaroxolyn) 5 mg DAILY ORAL 01/16/20 09:00 02/13/20 12:25 01/16/20 08:34 Olanzapine (ZyPREXA) 2.5 mg BEDTIME ORAL 01/13/20 23:15 02/27/20 23:14 01/15/20 21:09 Ondansetron HCl (Zofran) 4 mg Q6H PRN IVP Nausea & Vomiting 01/11/20 18:00 02/10/20 17:59 Pantoprazole (Protonix) 40 mg EVERY 12 HOURS ORAL 01/11/20 21:00 02/10/20 20:59 01/16/20 08:34 Polyethylene Glycol (Miralax) 17 gm HSPRN PRN ORAL Constipation 01/11/20 21:00 02/10/20 20:59 01/13/20 21:02 Potassium Chloride (K-Dur) 40 meq TWICE A DAY ORAL 01/14/20 11:00 04/13/20 10:59 01/16/20 17:43 Zolpidem Tartrate (Ambien) 5 mg HSPRN PRN ORAL Insomnia 01/11/20 21:00 01/18/20 20:59 Jake Alexander MD Jan 17, 2020 06:54
[2020-01-17 07:00] LABS: ANION GAP 15 mmol/L (5-15); BLOOD UREA NITROGEN 38 mg/dL (7-18); CALCIUM 8.8 MG/DL (8.5-10.1); CARBON DIOXIDE 17 MMOL/L (21-32); CHLORIDE 113 MMOL/L (98-107); CREATININE 1.9 MG/DL (0.55-1.30); POTASSIUM 4.7 MMOL/L (3.5-5.1); SODIUM 145 MMOL/L (136-145)
--- NOTE | 2020-01-17 07:02 | NUR ---
NURSE NOTES: Received report from Kulwant Baltazar Patient is on bed, awake and oriented x 3-4. Patient is room air, no respiratory distress noted. Patient is on consistent carb-instructed. IV site on right hand G-22 saline lock, that is patent, dry and intact. Able to communicate her needs. Patient is for discharge today. Safety measures in placed. Call light and bedside table within reach. Side rails up x 2. Bed in lowest and locked position. Bed alarm is on. Will continue plan of care.
--- NOTE | 2020-01-17 07:04 | NUR ---
HAND-OFF: Report given to BHAVIN Barriga. Plan of care endorsed.
--- NOTE | 2020-01-17 08:04 | NUR ---
NURSE NOTES: Relayed x-ray result to Dr. Cool. Will proceed to discharge the patient today. Called next of kin and spoke to pattie, and he's coming to pick-up the patient around 12 noon. Will facilitate discharge today.
[2020-01-17] MEDS: Aspirin Baby 81mg ORAL SCH (08:38)
[2020-01-17] MEDS: Docusate 100mg cap ORAL SCH ×2 (08:38→12:22)
[2020-01-17 08:39] VITALS: BP 129/63
--- NOTE | 2020-01-17 08:55 | General Progress Note ---
Assessment/Plan Status: stable, progressing Assessment/Plan: 1. Iron-deficiency anemia. 2. Possible cirrhosis. 3. Hypoalbuminemia. 4. Obesity. 5. Chronic renal disease/acute renal failure. 6. Hypertension. 7. Diabetes. 8. Hypothyroidism. s/p one unit PRBC in this admission fu stool ob positive x2 s/p EGD and colonoscopy: SUMMARY OF FINDINGS: 1. Gastritis, status post biopsy. 2. Total of 11 polyps removed, see above for details. 3. Internal hemorrhoids. 4. Diverticulosis. 5. Total of 11 polyps removed. ABS us reviewed most likely has NAFLD fu hepatitis panel>>> neg s/p thoracentesis Subjective Allergies: Coded Allergies: No Known Allergies (Unverified , 10/10/19) Objective Last 24 Hour Vital Signs Date Time Temp Pulse Resp B/P (MAP) Pulse Ox O2 Delivery O2 Flow Rate FiO2 01/17/20 08:39 72 129/63 01/17/20 05:18 129/63 01/17/20 05:18 129/63 01/17/20 04:00 98.0 72 18 129/63 (85) 98 01/17/20 03:59 72 01/17/20 00:00 96.8 60 18 123/79 (94) 97 01/17/20 00:00 72 01/16/20 21:00 Room Air 01/16/20 20:52 139/73 01/16/20 20:52 139/73 01/16/20 20:00 97.7 70 18 139/73 (95) 98 01/16/20 17:43 79 130/73 01/16/20 16:00 79 01/16/20 16:00 96.7 81 19 130/73 (92) 97 01/16/20 13:28 135/66 01/16/20 13:28 135/66 01/16/20 12:00 98.1 83 20 135/66 (89) 98 01/16/20 12:00 79 01/16/20 09:00 Room Air Intake and Output 01/16/20 01/17/20 19:00 07:00 Intake Total 140 ml Output Total 900 ml Balance -760 ml Intake Oral 140 ml Output Urine Total 900 ml # Voids 5 # Bowel Movements 1 2 Laboratory Tests 01/16/20 13:41: Body Fluid Source Thoracentesis, Body Fluid Volume 24, Body Fluid Appearance Clear, Body Fluid RBC 8, Body Fluid Total Nucleated Cells 33, Body Fluid Polynuclear WBCs (%) 14, Body Fluid Mononuclear WBCs (%) 84, Body Fluid Mesothelial Cells (%) 4, Body Fluid Albumin 0.9 01/17/20 05:49: White Blood Count 8.4, Red Blood Count 3.24L, Hemoglobin 8.7L, Hematocrit 27.8L , Mean Corpuscular Volume 86, Mean Corpuscular Hemoglobin 27.0, Mean Corpuscular Hemoglobin Concent 31.5L, Red Cell Distribution Width 19.6H, Platelet Count 228, Mean Platelet Volume 5.7L, Neutrophils (%) (Auto) 69.9, Lymphocytes (%) (Auto) 17.5L, Monocytes (%) (Auto) 9.5, Eosinophils (%) (Auto) 2.4, Basophils (%) (Auto) 0.7, Sodium Level 145, Potassium Level 4.7, Chloride Level 113H, Carbon Dioxide Level 17L, Anion Gap 15, Blood Urea Nitrogen 38H, Creatinine 1.9H, Estimat Glomerular Filtration Rate 26.3, Glucose Level 147H, Calcium Level 8.8 Height (Feet): 5 Height (Inches): 1.00 Weight (Pounds): 195 General Appearance: alert EENT: normal ENT inspection Neck: supple Cardiovascular: normal rate Respiratory/Chest: decreased breath sounds Abdomen: normal bowel sounds, non tender, soft Extremities: non-tender Francois Gunn MD Jan 17, 2020 08:55
--- NOTE | 2020-01-17 09:50 | NUR ---
CASE MANAGEMENT:REVIEW 01/17/20 SI: AC/CHR RENAL FAILURE. BACTEREMIA PLEURAL EFFUSION....S/O THORACENTESIS~ 1.2L REMOVED ANEMIA......S/P 1 UNIT PRBC'S S/P EGD/COLONOSCOPY(11 POLYPS REMOVED,GASTRITIS,BIOPSY) IS: IV LASIX X1 IV CEFEPIME Q24 IV LINEZOLID Q12 IV VENOFER QHS EPOETIN SQ MWF NORVASC PO BID HYDRALAZINE PO Q8HRS ISORDIL PO Q8HRS ASA PO QD ZAROXOLYN PO QD ZYPREXA PO QHS : TELEMETRY STATUS DCP: FROM HOME PLAN: DISCHARGE WAS HELD YESTERDAY D/T THORACENTESIS S/P THORACENTESIS YESTERDAY @ 1357 POST THORACENTESIS CXR YESTERDAY @ 2026
--- NOTE | 2020-01-17 10:23 | NUR ---
*-*-INSURANCE-*-* CLINICALS FAXED TO [facility] PH: [phone] FAX: [phone] [facility] PH: [phone] FAX: [phone] Addendum: 01/17/20 at 1145 by JOSELUIS RAMOS LVN LVN RECEIVED CALL FROM AIRN ALVAREZ WHO STATED THIS STAY HAS BEEN AUTHORIZED THRU TODAY 01/17/20
--- NOTE | 2020-01-17 10:49 | Infectious Diseases Prog Note ---
Assessment/Plan Assessment/Plan ASSESSMENT: +ve blood cx: CoNS ( m/l contaminant ) Rpt blood cCx :NGT 2DEcho: no Veg Afebrile nl WBC Pleural effusion Chest pain. Renal failure. Anemia. Diabetes. Hypertension. Malnutrition. PLAN: DC Cefepime and Zyvox # 4 - 01/13 Sp IV Vanco # 2 Monitor CBC, CMP Rpt blood cx x 2 Monitor CXR Subjective Allergies: Coded Allergies: No Known Allergies (Unverified , 10/10/19) Subjective afebrile Rpt blood cx is negative Objective Vital Signs Last 24 Hour Vital Signs Date Time Temp Pulse Resp B/P (MAP) Pulse Ox O2 Delivery O2 Flow Rate FiO2 01/17/20 09:00 Room Air 01/17/20 08:39 72 129/63 01/17/20 08:00 83 01/17/20 05:18 129/63 01/17/20 05:18 129/63 01/17/20 04:00 98.0 72 18 129/63 (85) 98 01/17/20 03:59 72 01/17/20 00:00 96.8 60 18 123/79 (94) 97 01/17/20 00:00 72 01/16/20 21:00 Room Air 01/16/20 20:52 139/73 01/16/20 20:52 139/73 01/16/20 20:00 97.7 70 18 139/73 (95) 98 01/16/20 17:43 79 130/73 01/16/20 16:00 79 01/16/20 16:00 96.7 81 19 130/73 (92) 97 01/16/20 13:28 135/66 01/16/20 13:28 135/66 01/16/20 12:00 98.1 83 20 135/66 (89) 98 01/16/20 12:00 79 Height (Feet): 5 Height (Inches): 1.00 Weight (Pounds): 195 HEENT: anicteric Respiratory/Chest: no respiratory distress Cardiovascular: regular rhythm Abdomen: no organomegaly, non distended Microbiology Date/Time Source Procedure Growth Status 01/16/20 13:41 Pleural Fluid Gram Stain - Final Resulted 01/16/20 13:41 Pleural Fluid Body Fluid Culture - Preliminary NO GROWTH AFTER 24 HOURS Resulted Laboratory Tests Test 01/16/20 13:41 01/17/20 05:49 Body Fluid Source Thoracentesis Body Fluid Volume 24 mL Body Fluid Appearance Clear (Clear) Body Fluid RBC 8 /CUMM Body Fluid Total Nucleated Cells 33 /CUMM Body Fluid Polynuclear WBCs (%) 14 % Body Fluid Mononuclear WBCs (%) 84 % Body Fluid Mesothelial Cells (%) 4 % Body Fluid Albumin 0.9 g/dL (Not Estab.) White Blood Count 8.4 K/UL (4.8-10.8) Red Blood Count 3.24 M/UL (4.20-5.40) L Hemoglobin 8.7 G/DL (12.0-16.0) L Hematocrit 27.8 % (37.0-47.0) L Mean Corpuscular Volume 86 FL (80-99) Mean Corpuscular Hemoglobin 27.0 PG (27.0-31.0) Mean Corpuscular Hemoglobin Concent 31.5 G/DL (32.0-36.0) L Red Cell Distribution Width 19.6 % (11.6-14.8) H Platelet Count 228 K/UL (150-450) Mean Platelet Volume 5.7 FL (6.5-10.1) L Neutrophils (%) (Auto) 69.9 % (45.0-75.0) Lymphocytes (%) (Auto) 17.5 % (20.0-45.0) L Monocytes (%) (Auto) 9.5 % (1.0-10.0) Eosinophils (%) (Auto) 2.4 % (0.0-3.0) Basophils (%) (Auto) 0.7 % (0.0-2.0) Sodium Level 145 MMOL/L (136-145) Potassium Level 4.7 MMOL/L (3.5-5.1) Chloride Level 113 MMOL/L (98-107) H Carbon Dioxide Level 17 MMOL/L (21-32) L Anion Gap 15 mmol/L (5-15) Blood Urea Nitrogen 38 mg/dL (7-18) H Creatinine 1.9 MG/DL (0.55-1.30) H Estimat Glomerular Filtration Rate 26.3 mL/min (>60) Glucose Level 147 MG/DL (74-106) H Calcium Level 8.8 MG/DL (8.5-10.1) Current Medications Medications (Trade) Dose Ordered Sig/Braeden Route PRN Reason Start Time Stop Time Status Last Admin Dose Admin Acetaminophen (Tylenol) 650 mg Q4H PRN ORAL fever 01/11/20 18:00 02/10/20 17:59 01/17/20 03:38 Allopurinol (allopurinoL) 300 mg DAILY ORAL 01/12/20 10:15 02/11/20 10:14 01/17/20 08:38 Amlodipine Besylate (Norvasc) 5 mg BID ORAL 01/14/20 18:00 02/11/20 08:59 01/17/20 08:39 Aspirin (ASA) 81 mg DAILY ORAL 01/14/20 12:30 02/28/20 12:29 01/17/20 08:38 Atorvastatin Calcium (Lipitor) 80 mg QHS ORAL 01/11/20 21:00 04/10/20 20:59 01/15/20 21:09 Cefepime HCl 1 gm/ Dextrose 55 ml @ 110 mls/hr Q24H IVPB 01/13/20 13:00 01/20/20 12:59 01/16/20 13:29 Clonidine HCl (Catapres Tab) 0.1 mg Q4H PRN ORAL For High Blood Pressure 01/11/20 18:00 04/10/20 17:59 Dextrose (Dextrose 50%) 25 ml Q30M PRN IV Hypoglycemia 01/11/20 18:00 04/10/20 17:59 Dextrose (Dextrose 50%) 50 ml Q30M PRN IV Hypoglycemia 01/11/20 18:00 04/10/20 17:59 Docusate Sodium (Colace) 100 mg TID ORAL 01/11/20 18:00 02/10/20 17:59 01/17/20 08:38 Epoetin Shlomo (Epoetin Shlomo-EPBX(NON ESRD)) 10,000 unit TUE-WED-TUE SUBQ 01/14/20 21:00 04/13/20 20:59 01/16/20 21:01 Hydralazine HCl (Apresoline) 50 mg Q8HR ORAL 01/14/20 14:00 04/12/20 11:59 01/17/20 05:18 Insulin Aspart (NovoLOG) BEFORE MEALS AND HS SUBQ 01/11/20 21:00 04/10/20 20:59 01/17/20 05:25 Iron Sucrose 100 mg/Sodium Chloride 60 ml @ 240 mls/hr BEDTIME IV 01/13/20 21:00 01/17/20 21:14 01/16/20 20:43 Isosorbide Dinitrate (Isordil) 10 mg Q8HR ORAL 01/14/20 14:00 02/13/20 13:59 01/17/20 05:18 Levothyroxine Sodium (Synthroid) 88 mcg ACBREAKFAST ORAL 01/15/20 06:30 02/11/20 06:29 01/17/20 05:18 Linaclotide (Linzess) 290 mcg BEFORE BREAKFAST ORAL 01/15/20 06:30 04/14/20 06:29 01/17/20 05:19 Linezolid 300 ml @ 300 mls/hr Q12H IVPB 01/14/20 15:00 01/21/20 14:59 01/17/20 03:06 Metolazone (Zaroxolyn) 5 mg DAILY ORAL 01/16/20 09:00 02/13/20 12:25 01/17/20 08:38 Olanzapine (ZyPREXA) 2.5 mg BEDTIME ORAL 01/13/20 23:15 02/27/20 23:14 01/15/20 21:09 Ondansetron HCl (Zofran) 4 mg Q6H PRN IVP Nausea & Vomiting 01/11/20 18:00 02/10/20 17:59 Pantoprazole (Protonix) 40 mg EVERY 12 HOURS ORAL 01/11/20 21:00 02/10/20 20:59 01/17/20 08:38 Polyethylene Glycol (Miralax) 17 gm HSPRN PRN ORAL Constipation 01/11/20 21:00 02/10/20 20:59 01/13/20 21:02 Potassium Chloride (K-Dur) 40 meq TWICE A DAY ORAL 01/14/20 11:00 04/13/20 10:59 01/17/20 08:38 Zolpidem Tartrate (Ambien) 5 mg HSPRN PRN ORAL Insomnia 01/11/20 21:00 01/18/20 20:59 Ayush Rodriguez MD Jan 17, 2020 10:49
--- NOTE | 2020-01-17 11:00 | General Progress Note ---
Assessment/Plan Problem List: (1) Renal failure (ARF), acute on chronic ICD Codes: N17.9 - Acute kidney failure, unspecified; N18.9 - Chronic kidney disease, unspecified SNOMED: 556790213 Qualifiers: Qualified Codes: N17.9 - Acute kidney failure, unspecified; N18.9 - Chronic kidney disease, unspecified (2) History of hypertension ICD Codes: Z86.79 - Personal history of other diseases of the circulatory system SNOMED: 073428931 (3) Diabetes mellitus ICD Codes: E11.9 - Type 2 diabetes mellitus without complications SNOMED: 11376038 (4) Pleural effusion ICD Codes: J90 - Pleural effusion, not elsewhere classified SNOMED: 94181188 (5) Anemia ICD Codes: D64.9 - Anemia, unspecified SNOMED: 937304274 Qualifiers: Qualified Codes: D64.9 - Anemia, unspecified (6) Hypoglycemia ICD Codes: E16.2 - Hypoglycemia, unspecified SNOMED: 471263167 Status: stable, progressing Assessment/Plan: pt deit eval bp bs control cbc bmp am dc plan w hh Subjective Constitutional: Reports: weakness Allergies: Coded Allergies: No Known Allergies (Unverified , 10/10/19) All Systems: reviewed and negative except above Subjective o2nc sleepy in bed Objective Last 24 Hour Vital Signs Date Time Temp Pulse Resp B/P (MAP) Pulse Ox O2 Delivery O2 Flow Rate FiO2 01/17/20 09:00 Room Air 01/17/20 08:39 72 129/63 01/17/20 08:00 83 01/17/20 05:18 129/63 01/17/20 05:18 129/63 01/17/20 04:00 98.0 72 18 129/63 (85) 98 01/17/20 03:59 72 01/17/20 00:00 96.8 60 18 123/79 (94) 97 01/17/20 00:00 72 01/16/20 21:00 Room Air 01/16/20 20:52 139/73 01/16/20 20:52 139/73 01/16/20 20:00 97.7 70 18 139/73 (95) 98 01/16/20 17:43 79 130/73 01/16/20 16:00 79 01/16/20 16:00 96.7 81 19 130/73 (92) 97 01/16/20 13:28 135/66 01/16/20 13:28 135/66 01/16/20 12:00 98.1 83 20 135/66 (89) 98 01/16/20 12:00 79 Intake and Output 01/16/20 01/17/20 19:00 07:00 Intake Total 140 ml Output Total 900 ml Balance -760 ml Intake Oral 140 ml Output Urine Total 900 ml # Voids 5 # Bowel Movements 1 2 Laboratory Tests 01/16/20 13:41: Body Fluid Source Thoracentesis, Body Fluid Volume 24, Body Fluid Appearance Clear, Body Fluid RBC 8, Body Fluid Total Nucleated Cells 33, Body Fluid Polynuclear WBCs (%) 14, Body Fluid Mononuclear WBCs (%) 84, Body Fluid Mesothelial Cells (%) 4, Body Fluid Albumin 0.9 01/17/20 05:49: White Blood Count 8.4, Red Blood Count 3.24L, Hemoglobin 8.7L, Hematocrit 27.8L , Mean Corpuscular Volume 86, Mean Corpuscular Hemoglobin 27.0, Mean Corpuscular Hemoglobin Concent 31.5L, Red Cell Distribution Width 19.6H, Platelet Count 228, Mean Platelet Volume 5.7L, Neutrophils (%) (Auto) 69.9, Lymphocytes (%) (Auto) 17.5L, Monocytes (%) (Auto) 9.5, Eosinophils (%) (Auto) 2.4, Basophils (%) (Auto) 0.7, Sodium Level 145, Potassium Level 4.7, Chloride Level 113H, Carbon Dioxide Level 17L, Anion Gap 15, Blood Urea Nitrogen 38H, Creatinine 1.9H, Estimat Glomerular Filtration Rate 26.3, Glucose Level 147H, Calcium Level 8.8 Height (Feet): 5 Height (Inches): 1.00 Weight (Pounds): 195 General Appearance: lethargic EENT: normal ENT inspection Neck: normal alignment Cardiovascular: normal peripheral pulses, normal rate, regular rhythm Respiratory/Chest: chest wall non-tender, lungs clear, normal breath sounds Abdomen: normal bowel sounds, non tender, soft Extremities: normal inspection Edema: no edema noted Arm (L), no edema noted Arm (R), no edema noted Leg (L), no edema noted Leg (R), no edema noted Pedal (L), no edema noted Pedal (R), no edema noted Generalized Neurologic: motor weakness Skin: normal pigmentation, warm/dry Dyllan King DO Jan 17, 2020 11:00
--- NOTE | 2020-01-17 11:50 | Hematology/Onc Progress Note ---
Assessment/Plan Assessment/Plan Assessment and Recs: # Anemia of chronic disease due to underlying chronic medical issues, multifactorial v Gi bleed --> Anemia workup has been ordered, rule out gi bleed --> No evidence of hemolysis is noted, peripheral smear has been reviewed. --> Hgb goal >7. Transfuse prn. --> EPOGEN AND IV IRON STARTED, CONTINUE --> Medications have been reviewed --> occult on adm was ++ --> bone marrow biopsy is not indicated given the other more likely causes --> hgb 7.7-->8-->8.4 --> egd w/ colo 01/15/20 Gastritis, status post biopsy. Total of 11 polyps removed, see above for details. Internal hemorrhoids. # Coagulation defect, multifactorial usually related to poor PO intake versus medications, versus hepatitis v cirrhosis --> administer Vitamin K if patient is bleeding or FFP if the INR is >10 --> hold off on ffp unless active procedure/bleeding, first begin with vit K 10 --> mixing study as needed # Renal failure (ARF), acute on chronic --> ivf as per renal --> kyxelate as needed --> renal us --> as per Dr. Severino --> improved # Hypoglycemia -> endo eval prn # Pleural effusion --> diuresis as needed --> monitor ivf # Hyperkalemia # Morbid obesity The timing of this note does not necessarily reflect the time of the patient was seen. Greatly appreciate consultation. Subjective Constitutional: Denies: no symptoms, chills, fever, malaise, weakness, other HEENT: Denies: no symptoms, eye pain, blurred vision, tearing, double vision, ear pain, ear discharge, nose pain, nose congestion, throat pain, throat swelling, mouth pain, mouth swelling, other Cardiovascular: Denies: no symptoms, chest pain, edema, irregular heart rate, lightheadedness, palpitations, syncope, other Respiratory: Denies: no symptoms, cough, shortness of breath, SOB with excertion, SOB at rest, sputum, wheezing, other Genitourinary: Denies: no symptoms, burning, discharge, frequency, flank pain, hematuria, incontinence, pain, urgency, other Neurologic/Psychiatric: Denies: no symptoms, anxiety, depressed, emotional problems, headache, numbness, paresthesia, pre-existing deficit, seizure, tingling, tremors, weakness, other Endocrine: Denies: no symptoms, excessive sweating, flushing, intolerance to cold, intolerance to heat, increased hunger, increased thirst, increased urine, unexplained weight gain, unexplained weight loss, other Allergies: Coded Allergies: No Known Allergies (Unverified , 10/10/19) Subjective 01/13 no events, no f/c, no bleeding, no labs, no hemolysis 01/14 awake and alert, egd w/ colo for today, h/h stable, on iv iron 01/15 awake and alert, no bleeding, op report noted 01/16 no bleeding, labs reviewed, off abx, is on epogen and iv iron Objective Objective Current Medications Medications (Trade) Dose Ordered Sig/Braeden Route PRN Reason Start Time Stop Time Status Last Admin Dose Admin Acetaminophen (Tylenol) 650 mg Q4H PRN ORAL fever 01/11/20 18:00 02/10/20 17:59 01/17/20 03:38 Allopurinol (allopurinoL) 300 mg DAILY ORAL 01/12/20 10:15 02/11/20 10:14 01/17/20 08:38 Amlodipine Besylate (Norvasc) 5 mg BID ORAL 01/14/20 18:00 02/11/20 08:59 01/17/20 08:39 Aspirin (ASA) 81 mg DAILY ORAL 01/14/20 12:30 02/28/20 12:29 01/17/20 08:38 Atorvastatin Calcium (Lipitor) 80 mg QHS ORAL 01/11/20 21:00 04/10/20 20:59 01/15/20 21:09 Clonidine HCl (Catapres Tab) 0.1 mg Q4H PRN ORAL For High Blood Pressure 01/11/20 18:00 04/10/20 17:59 Dextrose (Dextrose 50%) 25 ml Q30M PRN IV Hypoglycemia 01/11/20 18:00 04/10/20 17:59 Dextrose (Dextrose 50%) 50 ml Q30M PRN IV Hypoglycemia 01/11/20 18:00 04/10/20 17:59 Docusate Sodium (Colace) 100 mg TID ORAL 01/11/20 18:00 02/10/20 17:59 01/17/20 08:38 Epoetin Shlomo (Epoetin Shlomo-EPBX(NON ESRD)) 10,000 unit TUE-TUE-TUE SUBQ 01/14/20 21:00 04/13/20 20:59 01/16/20 21:01 Hydralazine HCl (Apresoline) 50 mg Q8HR ORAL 01/14/20 14:00 04/12/20 11:59 01/17/20 05:18 Insulin Aspart (NovoLOG) BEFORE MEALS AND HS SUBQ 01/11/20 21:00 04/10/20 20:59 01/17/20 05:25 Iron Sucrose 100 mg/Sodium Chloride 60 ml @ 240 mls/hr BEDTIME IV 01/13/20 21:00 01/17/20 21:14 01/16/20 20:43 Isosorbide Dinitrate (Isordil) 10 mg Q8HR ORAL 01/14/20 14:00 02/13/20 13:59 01/17/20 05:18 Levothyroxine Sodium (Synthroid) 88 mcg ACBREAKFAST ORAL 01/15/20 06:30 02/11/20 06:29 01/17/20 05:18 Linaclotide (Linzess) 290 mcg BEFORE BREAKFAST ORAL 01/15/20 06:30 04/14/20 06:29 01/17/20 05:19 Metolazone (Zaroxolyn) 5 mg DAILY ORAL 01/16/20 09:00 02/13/20 12:25 01/17/20 08:38 Olanzapine (ZyPREXA) 2.5 mg BEDTIME ORAL 01/13/20 23:15 02/27/20 23:14 01/15/20 21:09 Ondansetron HCl (Zofran) 4 mg Q6H PRN IVP Nausea & Vomiting 01/11/20 18:00 02/10/20 17:59 Pantoprazole (Protonix) 40 mg EVERY 12 HOURS ORAL 01/11/20 21:00 02/10/20 20:59 01/17/20 08:38 Polyethylene Glycol (Miralax) 17 gm HSPRN PRN ORAL Constipation 01/11/20 21:00 02/10/20 20:59 01/13/20 21:02 Potassium Chloride (K-Dur) 40 meq TWICE A DAY ORAL 01/14/20 11:00 04/13/20 10:59 01/17/20 08:38 Zolpidem Tartrate (Ambien) 5 mg HSPRN PRN ORAL Insomnia 01/11/20 21:00 01/18/20 20:59 Last 24 Hour Vital Signs Date Time Temp Pulse Resp B/P (MAP) Pulse Ox O2 Delivery O2 Flow Rate FiO2 01/17/20 09:00 Room Air 01/17/20 08:39 72 129/63 01/17/20 08:00 83 01/17/20 05:18 129/63 01/17/20 05:18 129/63 01/17/20 04:00 98.0 72 18 129/63 (85) 98 01/17/20 03:59 72 01/17/20 00:00 96.8 60 18 123/79 (94) 97 01/17/20 00:00 72 01/16/20 21:00 Room Air 01/16/20 20:52 139/73 01/16/20 20:52 139/73 01/16/20 20:00 97.7 70 18 139/73 (95) 98 01/16/20 17:43 79 130/73 01/16/20 16:00 79 01/16/20 16:00 96.7 81 19 130/73 (92) 97 01/16/20 13:28 135/66 01/16/20 13:28 135/66 01/16/20 12:00 98.1 83 20 135/66 (89) 98 01/16/20 12:00 79 01/16/20 09:00 Room Air 01/16/20 08:34 87 143/71 01/16/20 08:00 96.8 87 20 143/71 (95) 96 01/16/20 08:00 84 01/16/20 07:22 78 18 98 Room Air 21 01/16/20 05:56 142/66 01/16/20 05:56 142/66 01/16/20 04:00 97.3 78 18 142/66 (91) 98 01/16/20 04:00 77 01/16/20 00:00 97.1 80 20 128/66 (86) 98 01/16/20 00:00 73 01/15/20 21:09 128/62 01/15/20 21:09 128/62 01/15/20 21:00 Room Air 01/15/20 20:00 96.8 76 18 128/62 (84) 97 01/15/20 20:00 74 01/15/20 19:53 72 18 97 Room Air 21 01/15/20 18:06 84 132/80 01/15/20 16:01 78 01/15/20 16:00 98.0 84 20 132/80 (97) 98 01/15/20 13:50 140/82 01/15/20 13:49 140/82 01/15/20 13:30 97.5 81 23 140/82 97 Room Air 01/15/20 13:15 81 21 149/85 99 Room Air 01/15/20 13:05 81 18 124/89 100 Simple Mask 6 01/15/20 13:00 82 21 142/79 100 Simple Mask 6 01/15/20 12:59 82 18 99 01/15/20 12:58 82 16 100 01/15/20 12:55 97.2 82 24 120/78 100 Simple Mask 6 01/15/20 12:00 98.0 79 20 113/56 (75) 98 01/15/20 11:53 84 Intake and Output 01/16/20 01/17/20 19:02 07:02 Intake Total 140 ml Output Total 900 ml Balance -760 ml Intake Oral 140 ml Output Urine Total 900 ml # Voids 3 2 # Bowel Movements 1 2 Labs Test 01/14/20 13:41 01/15/20 05:35 01/16/20 05:37 01/16/20 13:41 Body Fluid Glucose 184 mg/dL (.) Body Fluid Total Protein 1.9 g/dL (.) White Blood Count 7.4 K/UL (4.8-10.8) 6.2 K/UL (4.8-10.8) Red Blood Count 3.08 M/UL (4.20-5.40) 3.10 M/UL (4.20-5.40) Hemoglobin 8.4 G/DL (12.0-16.0) 8.4 G/DL (12.0-16.0) Hematocrit 26.0 % (37.0-47.0) 26.5 % (37.0-47.0) Mean Corpuscular Volume 84 FL (80-99) 86 FL (80-99) Mean Corpuscular Hemoglobin 27.3 PG (27.0-31.0) 27.0 PG (27.0-31.0) Mean Corpuscular Hemoglobin Concent 32.3 G/DL (32.0-36.0) 31.6 G/DL (32.0-36.0) Red Cell Distribution Width 19.1 % (11.6-14.8) 19.4 % (11.6-14.8) Platelet Count 257 K/UL (150-450) 237 K/UL (150-450) Mean Platelet Volume 5.6 FL (6.5-10.1) 5.6 FL (6.5-10.1) Neutrophils (%) (Auto) 69.0 % (45.0-75.0) 63.5 % (45.0-75.0) Lymphocytes (%) (Auto) 16.3 % (20.0-45.0) 20.7 % (20.0-45.0) Monocytes (%) (Auto) 11.5 % (1.0-10.0) 11.6 % (1.0-10.0) Eosinophils (%) (Auto) 2.5 % (0.0-3.0) 3.3 % (0.0-3.0) Basophils (%) (Auto) 0.7 % (0.0-2.0) 0.9 % (0.0-2.0) Sodium Level 148 MMOL/L (136-145) 146 MMOL/L (136-145) Potassium Level 3.4 MMOL/L (3.5-5.1) 3.8 MMOL/L (3.5-5.1) Chloride Level 114 MMOL/L (98-107) 113 MMOL/L (98-107) Carbon Dioxide Level 20 MMOL/L (21-32) 18 MMOL/L (21-32) Anion Gap 14 mmol/L (5-15) 15 mmol/L (5-15) Blood Urea Nitrogen 54 mg/dL (7-18) 46 mg/dL (7-18) Creatinine 2.0 MG/DL (0.55-1.30) 1.8 MG/DL (0.55-1.30) Estimat Glomerular Filtration Rate 24.8 mL/min (>60) 28.0 mL/min (>60) Glucose Level 138 MG/DL (74-106) 154 MG/DL (74-106) Uric Acid 9.2 MG/DL (2.6-7.2) 8.9 MG/DL (2.6-7.2) Calcium Level 8.8 MG/DL (8.5-10.1) 8.7 MG/DL (8.5-10.1) Phosphorus Level 3.8 MG/DL (2.5-4.9) 3.3 MG/DL (2.5-4.9) Magnesium Level 2.3 MG/DL (1.8-2.4) 2.5 MG/DL (1.8-2.4) Total Bilirubin 0.7 MG/DL (0.2-1.0) 0.6 MG/DL (0.2-1.0) Aspartate Amino Transf (AST/SGOT) 31 U/L (15-37) 40 U/L (15-37) Alanine Aminotransferase (ALT/SGPT) 37 U/L (12-78) 46 U/L (12-78) Alkaline Phosphatase 244 U/L (46-116) 267 U/L (46-116) C-Reactive Protein, Quantitative 5.7 mg/dL (0.00-0.90) Pro-B-Type Natriuretic Peptide 72804 pg/mL (0-125) Total Protein 6.5 G/DL (6.4-8.2) 6.0 G/DL (6.4-8.2) Albumin 2.7 G/DL (3.4-5.0) 2.7 G/DL (3.4-5.0) Globulin 3.8 g/dL Albumin/Globulin Ratio 0.7 (1.0-2.7) Direct Bilirubin 0.3 MG/DL (0.0-0.3) Body Fluid Source Thoracentesis Body Fluid Volume 24 mL Body Fluid Appearance Clear (Clear) Body Fluid RBC 8 /CUMM Body Fluid Total Nucleated Cells 33 /CUMM Body Fluid Polynuclear WBCs (%) 14 % Body Fluid Mononuclear WBCs (%) 84 % Body Fluid Mesothelial Cells (%) 4 % Body Fluid Albumin 0.9 g/dL (Not Estab.) Test 01/17/20 05:49 White Blood Count 8.4 K/UL (4.8-10.8) Red Blood Count 3.24 M/UL (4.20-5.40) Hemoglobin 8.7 G/DL (12.0-16.0) Hematocrit 27.8 % (37.0-47.0) Mean Corpuscular Volume 86 FL (80-99) Mean Corpuscular Hemoglobin 27.0 PG (27.0-31.0) Mean Corpuscular Hemoglobin Concent 31.5 G/DL (32.0-36.0) Red Cell Distribution Width 19.6 % (11.6-14.8) Platelet Count 228 K/UL (150-450) Mean Platelet Volume 5.7 FL (6.5-10.1) Neutrophils (%) (Auto) 69.9 % (45.0-75.0) Lymphocytes (%) (Auto) 17.5 % (20.0-45.0) Monocytes (%) (Auto) 9.5 % (1.0-10.0) Eosinophils (%) (Auto) 2.4 % (0.0-3.0) Basophils (%) (Auto) 0.7 % (0.0-2.0) Sodium Level 145 MMOL/L (136-145) Potassium Level 4.7 MMOL/L (3.5-5.1) Chloride Level 113 MMOL/L (98-107) Carbon Dioxide Level 17 MMOL/L (21-32) Anion Gap 15 mmol/L (5-15) Blood Urea Nitrogen 38 mg/dL (7-18) Creatinine 1.9 MG/DL (0.55-1.30) Estimat Glomerular Filtration Rate 26.3 mL/min (>60) Glucose Level 147 MG/DL (74-106) Calcium Level 8.8 MG/DL (8.5-10.1) Micro Microbiology Date/Time Source Procedure Growth Status 01/16/20 13:41 Pleural Fluid Gram Stain - Final Resulted 01/16/20 13:41 Pleural Fluid Body Fluid Culture - Preliminary NO GROWTH AFTER 24 HOURS Resulted Height (Feet): 5 Height (Inches): 1.00 Weight (Pounds): 195 Objective Physical Exam: Vitals: reviewed General: NAD HEENT: nc, at Neck: supple Chest: clear breath sounds bilaterally Cardiovascular: RRR, no s3, s4 Abdomen: soft, nontender, nd Extremities: no cce, normal range of motion Neuro: alert and oriented Gu: ++Derick Hwang MD Jan 17, 2020 11:50
[2020-01-17] MEDS ORDERED: APRESOLINE50 MG ORAL (12:23)
[2020-01-17] MEDS ORDERED: ALLOPURINOL100 M1 ORAL (12:23)
[2020-01-17] MEDS ORDERED: ZAROXOLYN2.5 MG ORAL (12:23)
--- NOTE | 2020-01-17 12:30 | NUR ---
Discharge: Patient is being discharged from medical care. Awake, alert and oriented x3. After care instructions, including referral to [place]. Patient and grandosn "jenaro" verbalized understanding of After care instructions; at this time patient does not request medications, equipment or placement. Patient's grandson brought her wheelchair. Patient out with all personal belongings via wheelchair.
--- NOTE | 2020-01-17 12:33 | Pulmonology Progress Note ---
Assessment/Plan Problems: (1) Pleural effusion (2) Renal failure (ARF), acute on chronic (3) Hypoglycemia (4) Anemia (5) Moderate pulmonary arterial systolic hypertension (6) Cardiac left ventricular ejection fraction greater than 40 percent (7) Grade I diastolic dysfunction (8) History of hypertension (9) Diabetic nephropathy Assessment/Plan EGD done thoracentesis done yesterday 1.2 liters removed all abx stopped on Zoroxyline watch bun/creatinine dc home with f/u cxr in two weeks to f/u on RLL air space disease,which is most likely caused by atelectasis secondary to chronic pleural effusion. Subjective ROS Limited/Unobtainable: No Interval Events: doing better Allergies: Coded Allergies: No Known Allergies (Unverified , 10/10/19) Objective Last 24 Hour Vital Signs Date Time Temp Pulse Resp B/P (MAP) Pulse Ox O2 Delivery O2 Flow Rate FiO2 01/17/20 09:00 Room Air 01/17/20 08:39 72 129/63 01/17/20 08:00 83 01/17/20 05:18 129/63 01/17/20 05:18 129/63 01/17/20 04:00 98.0 72 18 129/63 (85) 98 01/17/20 03:59 72 01/17/20 00:00 96.8 60 18 123/79 (94) 97 01/17/20 00:00 72 01/16/20 21:00 Room Air 01/16/20 20:52 139/73 01/16/20 20:52 139/73 01/16/20 20:00 97.7 70 18 139/73 (95) 98 01/16/20 17:43 79 130/73 01/16/20 16:00 79 01/16/20 16:00 96.7 81 19 130/73 (92) 97 01/16/20 13:28 135/66 01/16/20 13:28 135/66 Intake and Output 01/16/20 01/17/20 19:00 07:00 Intake Total 140 ml Output Total 900 ml Balance -760 ml Intake Oral 140 ml Output Urine Total 900 ml # Voids 5 # Bowel Movements 1 2 General Appearance: WD/WN HEENT: normocephalic, atraumatic Respiratory/Chest: chest wall non-tender, lungs clear Cardiovascular: normal peripheral pulses, normal rate Abdomen: normal bowel sounds, soft, non tender Extremities: no cyanosis Skin: no rash 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 Lymphatic: no neck adenopathy Microbiology Date/Time Source Procedure Growth Status 01/16/20 13:41 Pleural Fluid Gram Stain - Final Resulted 01/16/20 13:41 Pleural Fluid Body Fluid Culture - Preliminary NO GROWTH AFTER 24 HOURS Resulted Laboratory Tests 01/16/20 13:41: Body Fluid Source Thoracentesis, Body Fluid Volume 24, Body Fluid Appearance Clear, Body Fluid RBC 8, Body Fluid Total Nucleated Cells 33, Body Fluid Polynuclear WBCs (%) 14, Body Fluid Mononuclear WBCs (%) 84, Body Fluid Mesothelial Cells (%) 4, Body Fluid Albumin 0.9 01/17/20 05:49: White Blood Count 8.4, Red Blood Count 3.24L, Hemoglobin 8.7L, Hematocrit 27.8L , Mean Corpuscular Volume 86, Mean Corpuscular Hemoglobin 27.0, Mean Corpuscular Hemoglobin Concent 31.5L, Red Cell Distribution Width 19.6H, Platelet Count 228, Mean Platelet Volume 5.7L, Neutrophils (%) (Auto) 69.9, Lymphocytes (%) (Auto) 17.5L, Monocytes (%) (Auto) 9.5, Eosinophils (%) (Auto) 2.4, Basophils (%) (Auto) 0.7, Sodium Level 145, Potassium Level 4.7, Chloride Level 113H, Carbon Dioxide Level 17L, Anion Gap 15, Blood Urea Nitrogen 38H, Creatinine 1.9H, Estimat Glomerular Filtration Rate 26.3, Glucose Level 147H, Calcium Level 8.8 Current Medications Medications (Trade) Dose Ordered Sig/Braeden Route PRN Reason Start Time Stop Time Status Last Admin Dose Admin Acetaminophen (Tylenol) 650 mg Q4H PRN ORAL fever 01/11/20 18:00 02/10/20 17:59 01/17/20 03:38 Allopurinol (allopurinoL) 300 mg DAILY ORAL 01/12/20 10:15 02/11/20 10:14 01/17/20 08:38 Amlodipine Besylate (Norvasc) 5 mg BID ORAL 01/14/20 18:00 02/11/20 08:59 01/17/20 08:39 Aspirin (ASA) 81 mg DAILY ORAL 01/14/20 12:30 02/28/20 12:29 01/17/20 08:38 Atorvastatin Calcium (Lipitor) 80 mg QHS ORAL 01/11/20 21:00 04/10/20 20:59 01/15/20 21:09 Clonidine HCl (Catapres Tab) 0.1 mg Q4H PRN ORAL For High Blood Pressure 01/11/20 18:00 04/10/20 17:59 Dextrose (Dextrose 50%) 25 ml Q30M PRN IV Hypoglycemia 01/11/20 18:00 04/10/20 17:59 Dextrose (Dextrose 50%) 50 ml Q30M PRN IV Hypoglycemia 01/11/20 18:00 04/10/20 17:59 Docusate Sodium (Colace) 100 mg TID ORAL 01/11/20 18:00 02/10/20 17:59 01/17/20 08:38 Epoetin Shlomo (Epoetin Shlomo-EPBX(NON ESRD)) 10,000 unit TUE- SUBQ 01/14/20 21:00 04/13/20 20:59 01/16/20 21:01 Hydralazine HCl (Apresoline) 50 mg Q8HR ORAL 01/14/20 14:00 04/12/20 11:59 01/17/20 05:18 Insulin Aspart (NovoLOG) BEFORE MEALS AND HS SUBQ 01/11/20 21:00 04/10/20 20:59 01/17/20 05:25 Iron Sucrose 100 mg/Sodium Chloride 60 ml @ 240 mls/hr BEDTIME IV 01/13/20 21:00 01/17/20 21:14 01/16/20 20:43 Isosorbide Dinitrate (Isordil) 10 mg Q8HR ORAL 01/14/20 14:00 02/13/20 13:59 01/17/20 05:18 Levothyroxine Sodium (Synthroid) 88 mcg ACBREAKFAST ORAL 01/15/20 06:30 02/11/20 06:29 01/17/20 05:18 Linaclotide (Linzess) 290 mcg BEFORE BREAKFAST ORAL 01/15/20 06:30 04/14/20 06:29 01/17/20 05:19 Metolazone (Zaroxolyn) 5 mg DAILY ORAL 01/16/20 09:00 02/13/20 12:25 01/17/20 08:38 Olanzapine (ZyPREXA) 2.5 mg BEDTIME ORAL 01/13/20 23:15 02/27/20 23:14 01/15/20 21:09 Ondansetron HCl (Zofran) 4 mg Q6H PRN IVP Nausea & Vomiting 01/11/20 18:00 02/10/20 17:59 Pantoprazole (Protonix) 40 mg EVERY 12 HOURS ORAL 01/11/20 21:00 02/10/20 20:59 01/17/20 08:38 Polyethylene Glycol (Miralax) 17 gm HSPRN PRN ORAL Constipation 01/11/20 21:00 02/10/20 20:59 01/13/20 21:02 Potassium Chloride (K-Dur) 40 meq TWICE A DAY ORAL 01/14/20 11:00 04/13/20 10:59 01/17/20 08:38 Zolpidem Tartrate (Ambien) 5 mg HSPRN PRN ORAL Insomnia 01/11/20 21:00 01/18/20 20:59 Tiana Cool MD Jan 17, 2020 12:33
--- NOTE | 2020-01-17 13:38 | Nephrology Progress Note ---
Assessment/Plan Problem List: (1) Renal failure (ARF), acute on chronic (2) Diabetes mellitus (3) Hypoglycemia (4) Hyperkalemia (5) Diabetic nephropathy Assessment Renal failure (ARF), acute on chronic Hyperkalemia Hypoglycemia Anemia Pleural effusion Morbid obesity Plan late note entery Chan out No IV fluids Stable from renal standpoint of view for discharge Add hydralazine for afterload reduction Monitor 24-hour urine collection for total protein 2D echocardiogram ejection fraction is reported to 50% Kidney ultrasound noted Anemia work-up leading to low iron intravenous iron ordered As needed Kayexalate for high potassium Urine studies Keep blood pressure and blood sugar in check Monitor renal parameters Subjective ROS Limited/Unobtainable: No Interval Events/Complaints seen at 8,45 am- Objective Objective Last 24 Hour Vital Signs Date Time Temp Pulse Resp B/P (MAP) Pulse Ox O2 Delivery O2 Flow Rate FiO2 01/17/20 09:00 Room Air 01/17/20 08:39 72 129/63 01/17/20 08:00 83 01/17/20 05:18 129/63 01/17/20 05:18 129/63 01/17/20 04:00 98.0 72 18 129/63 (85) 98 01/17/20 03:59 72 01/17/20 00:00 96.8 60 18 123/79 (94) 97 01/17/20 00:00 72 01/16/20 21:00 Room Air 01/16/20 20:52 139/73 01/16/20 20:52 139/73 01/16/20 20:00 97.7 70 18 139/73 (95) 98 01/16/20 17:43 79 130/73 01/16/20 16:00 79 01/16/20 16:00 96.7 81 19 130/73 (92) 97 Intake and Output 01/16/20 01/17/20 19:00 07:00 Intake Total 140 ml Output Total 900 ml Balance -760 ml Intake Oral 140 ml Output Urine Total 900 ml # Voids 5 # Bowel Movements 1 2 Laboratory Tests 01/16/20 13:41: Body Fluid Source Thoracentesis, Body Fluid Volume 24, Body Fluid Appearance Clear, Body Fluid RBC 8, Body Fluid Total Nucleated Cells 33, Body Fluid Polynuclear WBCs (%) 14, Body Fluid Mononuclear WBCs (%) 84, Body Fluid Mesothelial Cells (%) 4, Body Fluid Albumin 0.9 01/17/20 05:49: White Blood Count 8.4, Red Blood Count 3.24L, Hemoglobin 8.7L, Hematocrit 27.8L , Mean Corpuscular Volume 86, Mean Corpuscular Hemoglobin 27.0, Mean Corpuscular Hemoglobin Concent 31.5L, Red Cell Distribution Width 19.6H, Platelet Count 228, Mean Platelet Volume 5.7L, Neutrophils (%) (Auto) 69.9, Lymphocytes (%) (Auto) 17.5L, Monocytes (%) (Auto) 9.5, Eosinophils (%) (Auto) 2.4, Basophils (%) (Auto) 0.7, Sodium Level 145, Potassium Level 4.7, Chloride Level 113H, Carbon Dioxide Level 17L, Anion Gap 15, Blood Urea Nitrogen 38H, Creatinine 1.9H, Estimat Glomerular Filtration Rate 26.3, Glucose Level 147H, Calcium Level 8.8 Height (Feet): 5 Height (Inches): 1.00 Weight (Pounds): 195 General Appearance: no apparent distress Objective No change Jay Severino MD Jan 17, 2020 13:38
--- NOTE | 2020-01-18 11:31 | Psych Consult Progress Note ---
Psychiatry Progress Note Psychiatry Progress Note Subjective the system was down last night therefore this is a late entry Neurological/Psychiatric: Reports: anxiety, depressed, emotional problems Allergies: Coded Allergies: No Known Allergies (Unverified , 10/10/19) Objective Data Height (Feet): 5 Height (Inches): 1.00 Weight (Pounds): 195 General Appearance: alert Appearance: no abnormalities noted Behavior Mannerisms: good eye contact Mental Status Exam - Affect: blunted Speech: clear Additional Comments: alert and oriented times self and place. Mood is neutral. Affect is flat. Thought process is concrete. Thought content, no suicidal or homicidal ideation. ASSESSMENT: Stable. PLAN: 1. Continue current medications. 2. Provide the patient with reality orientation and supportive therapy. Assessment/Plan Status: stable, progressing Assessment/Plan: PLAN: 1. Continue to treat the underlying cause of encephalopathy. 2. Zyprexa p.r.n. 3. Continue to follow and readjust the medications. Aki Morris MD Jan 18, 2020 11:31
--- NOTE | 2020-01-18 12:54 | Discharge Summary ---
Discharge Summary Discharge Summary _ DATE OF ADMISSION: 01/11/2020 DATE OF DISCHARGE: 01/17/2020 DISCHARGED BY: Dr. King REASON FOR ADMISSION: 69 years old female with past medical history of diabetes mellitus, HTN, CHF, obesity, presented to emergency department from home by paramedics for evaluation due to hypoglycemia. Accu-Chek in the field was 26. Patient received 250 cc of D10 and blood sugar improved. Upon arrival to emergency department blood sugar was 73. Patient was more awake, oriented , and verbally responsive. She denied fever and chills. She denied cough. Laboratory work-up revealed BUN 85, creatinine 2.7. Lactic acid 2.1 , repeated 1.9. Potassium 5.7. No leukocytosis, hemoglobin 7.7, hematocrit 24.9. Urinalysis revealed +3 protein , no evidence of urinary tract infection. Chest x-ray demonstrated right basilar pleural fluid, possible consolidation. Mild interstitial congestion. Cardiomegaly. Patient subsequently admitted for further management to telemetry floor. CONSULTANTS: maintenance specialist Dr. Zelaya pulmonary Dr. Cool ID specialist Dr. Rodriguez GI specialist Dr. Gunn communications planner Dr. Alexander parcel post clerk Dr. Severino string laster/oncologist Dr. Landers [facility] COURSE: Patient admitted to telemetry floor and started on IV fluids with dextrose. Follow-up chest x-ray revealed asymmetric right basilar infiltrate : atelectasis versus pneumonia, moderate right pleural effusion. Patient started on empiric antibiotics . Patient undergone ultrasound-guided thoracentesis right pleural effusion yielding 1.2 L of pleural fluid. Pleural fluid culture was negative. Cytology of pleural fluid revealed no evidence of malignant cells. Chest x-ray post-thoracentesis demonstrated no pneumothorax, improvement in right pleural effusion. Supplemental oxygen provided and titrated to keep pulse oximetry above 92%. Pulmonary toilet provided as needed. Venous duplex bilateral lower extremity revealed no evidence of acute DVT. Blood culture initially revealed Staph hemolyticus, and repeated blood cultures were negative. Echocardiogram revealed ejection fraction of 45 to 50% with evidence of mild diastolic dysfunction. Patient was on diuretic to keep balance negative. Volumes and cardiorenal parameters were closely monitored. Patient showed evidence of left bundle branch block with unknown chronicity. Antiplatelet therapy with aspirin and statin continued. Blood pressure was managed with calcium channel humza and hydralazine. Isosorbide continued. Clonidine was on board as needed for blood pressure spikes. Initial blood culture revealed Staph hemolyticus. Repeated blood cultures were negative. Echocardiogram revealed no evidence of vegetation. Patient remained afebrile , without leukocytosis. Per ID specialist initial blood culture were most likely contaminated. Antibiotics stopped. Renal parameters and electrolytes were closely monitored, electrolytes corrected as needed , and nephrotoxins were avoided. Urine studies were done. Creatinine from 2.7 down to 1.9 Renal ultrasound revealed multiply right renal cysts, but no hydronephrosis. Anemia work-up revealed low iron. Patient started on IV Venofer as well as Epogen. Hemoglobin and hematocrit were closely monitored with goal to keep hemoglobin above 7. Patient received 1 unit of packed red blood cells during this admission. Prior to discharge hemoglobin 8.7 , hematocrit 27.8. Stool for occult blood was positive x2. Patient undergone upper endoscopy with biopsy and colonoscopy with polypectomy and biopsy , which revealed gastritis , status post biopsy, removed a total of 11 polyps . Internal hemorrhoids and diverticulosis noted. Pathology report revealed moderate chronic gastritis with focal activity and tubular adenoma with no evidence of high-grade dysplasia or malignancy. Pathology of rectal ulcer revealed ulceration with associated inflammation , but was negative for malignancy. GI prophylaxis provided. Bowel regimen instituted. Abdominal ultrasound demonstrated slightly dense liver . Ascites. No cholelithiasis or acute cholecystitis. Hepatitis panel was negative. LFT remained stable, initially minimally elevated. Per GI specialist patient most likely had nonalcoholic fatty liver disease, and need to follow up with GI specialist as outpatient for management. Blood sugar was managed as per communications planner recommendation. Hypoglycemia protocol was in order. After IV fluid with dextrose was stopped , no further recurrence of hypoglycemia episodes. Blood sugar was closely monitored without insulin coverage. Metformin was on hold. TSH noted to be elevated on levothyroxine 75 mcg daily. Dosage of levothyroxine was increased to 88 mcg daily. Repeat TSH free T4 in 4 weeks. Patient clinically stabilized and was ready for discharge home with home health services. FINAL DIAGNOSES: Hypoglycemia Acute on chronic renal failure Anemia of chronic disease Positive stool for occult blood s/p EGD and colonoscopy with findings of gastritis, s/p removal of 11 polyps,s /p biopsy, diverticulosis and internal hemorrhoids Pleural effusion, s/p thoracentesis Hyperkalemia -resolved Obesity CHF with mild diastolic dysfunction Coronary artery disease with recent CABG Hypertension Diabetes mellitus with diabetic nephropathy Left bundle branch block Most likely nonalcoholic fatty liver disease / NAFLD Hypothyroidism with elevated TSH DISCHARGE MEDICATIONS: See Medication Reconciliation list. DISCHARGE INSTRUCTIONS: Patient was discharged home with home health services. Follow up with primary care provider in one week. Jenna García NP Jan 18, 2020 12:54
--- NOTE | 2020-01-21 13:59 | NUR ---
*-*-INSURANCE-*-* DISCHARGE SUMMARY HAS BEEN FAXED: PHYSICIAN [facility] PH: [phone] FAX: [phone] STEF[facility]IE PH: [phone] FAX: [phone]
--- NOTE | 2020-01-23 14:25 | NUR ---
*-*-INSURANCE-*-* DISCHARGE SUMMARY HAS BEEN FAXED: [facility] PHYSICIAN MAGAL[facility] PH: [phone] FAX: [phone]
== END 2020-01-17 13:20 | disposition home health service (06) | DRG 291 ==
LOC: EDBD 11:27 → EMR 12:20 → EDBEDREQ 12:32 → EDBEDREQSVC 13:56 → 2E 15:06 → EDBEDREQ 15:22 → 2E 17:53
PROC: 0W993ZZ Drainage of Right Pleural Cavity, Percutaneous Approach (ICD-10-PCS; principal; 2020-01-11)
PROC: 30233N1 Transfusion of Nonautologous Red Blood Cells into Peripheral Vein, Percutaneous Approach (ICD-10-PCS; principal; 2020-01-11)
DX: I13.0 Hypertensive heart and chronic kidney disease with heart failure and stage 1 through stage 4 chronic kidney disease, or unspecified chronic kidney disease (principal); I50.33 Acute on chronic diastolic (congestive) heart failure; J18.9 Pneumonia, unspecified organism; G93.41 Metabolic encephalopathy; N17.9 Acute kidney failure, unspecified; G93.40 Encephalopathy, unspecified; J90 Pleural effusion, not elsewhere classified; E11.649 Type 2 diabetes mellitus with hypoglycemia without coma; E11.21 Type 2 diabetes mellitus with diabetic nephropathy; E87.5 Hyperkalemia; I25.2 Old myocardial infarction; E03.9 Hypothyroidism, unspecified; K74.60 Unspecified cirrhosis of liver; D50.9 Iron deficiency anemia, unspecified; R00.1 Bradycardia, unspecified; I25.10 Atherosclerotic heart disease of native coronary artery without angina pectoris; E66.01 Morbid (severe) obesity due to excess calories; I44.7 Left bundle-branch block, unspecified; Z79.84 Long term (current) use of oral hypoglycemic drugs; I27.20 Pulmonary hypertension, unspecified; K57.90 Diverticulosis of intestine, part unspecified, without perforation or abscess without bleeding; K29.70 Gastritis, unspecified, without bleeding; K64.8 Other hemorrhoids; K76.0 Fatty (change of) liver, not elsewhere classified; D63.8 Anemia in other chronic diseases classified elsewhere
CPT/HCPCS: 36415; 36600; 71045; 76700; 76770; 76942; 80048; 80053; 80061; 80076; 80202; 81003; 81050; 82140; 82270; 82550; 82607; 82728; 82746; 82803; 82962; 82977; 83036; 83540; 83550; 83605; 83690; 83735; 83880; 84100; 84156; 84300; 84443; 84484; 84550; 85007; 85025; 85610; 85730; 86140; 86705; 86709; 86803; 86850; 86900; 86901; 86920; 87040; 87070; 87181; 87205; 87340; 89051; 93005; 93306; 93970; 94003; 94150; 94640; 94664; 96365; 96375; 97803; 99285; J1815; J7620; J8499

== ENCOUNTER 2020-08-30 17:49 | Inpatient (IN) | payer MEDICARE, OTHER ==
[~2020-08-30] VITALS: Ht 177.8 cm; Wt 98.9 kg
[~2020-08-30 17:49] MED LIST changes: +ALLOPURINOL100 M1 ORAL; +APRESOLINE50 MG ORAL; +DOCUSATE SODIU100 M2 ORAL; +SYNTHROID75 MCG ORAL; +ULTRAM50 MG ORAL; +ZAROXOLYN2.5 MG ORAL
[2020-08-30 17:52] VITALS: BP 140/102
[2020-08-30 18:22] LABS: HEMOGLOBIN 9.5 G/DL (12.0-16.0); MEAN CORPUSCULAR VOLUME 94 FL (80-99); PLATELET COUNT 139 K/UL (150-450); RED BLOOD COUNT 3.31 M/UL (4.20-5.40); RED CELL DISTRIBUTION WIDTH 17.9 % (11.6-14.8)
--- NOTE | 2020-08-30 18:22 | Emergency Room Report ---
History of Present Illness General Chief Complaint: Dyspnea/Respdistress Present Illness HPI Disclaimer: Please note that this report is being documented using [employer] technology. This can lead to erroneous entry secondary to incorrect interpretation by the dictating instrument. HPI: 70-year old female history of hypertension, diabetes, CHF, COVID-19 presents for shortness of breath. Patient states she has been feeling short of breath for the past couple of days. She denies any fever cough or chest pain. No nausea or vomiting. She states she had a positive coronavirus test approximately 9 days ago. She has a history of ascites as well as chronic lower extremity edema. She reports orthopnea and shortness of breath on exertion. On EMS arrival to her home she was approximately 87% on room air. Allergies: Coded Allergies: No Known Allergies (Unverified , 10/10/19) COVID-19 Screening Contact w/high risk pt: No Recent Travel to affected area: No Experienced COVID-19 symptoms?: Yes COVID-19 Testing performed MOISTURE METER READER: No COVID-19 Screening: Positive COVID-19 COVID-19 Testing Source: (08/25/20) Patient History Reviewed Nursing Documentation: PMH: Agreed; PSxH: Agreed Nursing Documentation-PMH Hx Cardiac Problems: Yes - ESHF Hx Hypertension: Yes - HTN and mod pulmonary arterial systolic HTN Hx Asthma: Yes Hx Diabetes: Yes Hx Cancer: No Hx Gastrointestinal Problems: Yes Hx Neurological Problems: No - ALOC when hypoglycemic Review of Systems All Other Systems: negative except mentioned in HPI Physical Exam Vital Signs Date Time Temp Pulse Resp B/P (MAP) Pulse Ox O2 Delivery O2 Flow Rate FiO2 08/30/20 17:42 106 20 140/102 (115) 100 Non-Rebreather 15.0 Sp02 EP Interpretation: reviewed, other - Normal O2 on oxygen General Appearance: obese, Chronically Ill Head: normocephalic, atraumatic Eyes: bilateral eye PERRL, bilateral eye EOMI ENT: hearing grossly normal, moist mucus membranes Neck: full range of motion, supple Respiratory: rales, other - Rales noted at bilateral lung bases. Patient was able to speak in full sentences. Cardiovascular #1: normal peripheral pulses, no murmur, tachycardia Gastrointestinal: non tender, soft, no guarding, other - Abdomen distended, edematous, nontender Musculoskeletal: other - Bilateral lower extremity edema with chronic wounds noted to the lower extremities. Hitting edema up to the mid thigh bilaterally Neurologic: alert, oriented x3, no focal defects Skin: normal color, warm/dry Medical Decision Making Diagnostic Impression: Primary Impression: CHF (congestive heart failure) Additional Impressions: Pleural effusion Pneumonia Anasarca ER Course MDM: Differential included but not limited to fluid overload, CHF, COVID-19, pneumonia, pleural effusion, electrolyte disturbance, renal failure to name a few Clinical course-IV cardiac monitoring pulse oximetry. Chest x-ray demonstrated evidence of right lower lobe infiltrate probable pleural effusion. Patient did appear overloaded on exam with edema of her abdominal wall and bilateral lower extremities. She also has a chronic wounds to the lower extremities. She was hypoxic on room air requiring 2 L nasal cannula. As she was hypoxic with evidence of possible pneumonia, leukocytosis on laboratory studies, will require admission the hospital. IV Lasix given for diuresis. Patient will be admitted to the telemetry floor. Patient accepted by Dr. King Labs - Laboratory Tests Test 08/30/20 18:10 White Blood Count 19.0 K/UL (4.8-10.8) H Red Blood Count 3.31 M/UL (4.20-5.40) L Hemoglobin 9.5 G/DL (12.0-16.0) L Hematocrit 31.0 % (37.0-47.0) L Mean Corpuscular Volume 94 FL (80-99) Mean Corpuscular Hemoglobin 28.7 PG (27.0-31.0) Mean Corpuscular Hemoglobin Concent 30.6 G/DL (32.0-36.0) L Red Cell Distribution Width 17.9 % (11.6-14.8) H Platelet Count 139 K/UL (150-450) L Mean Platelet Volume 6.9 FL (6.5-10.1) Neutrophils (%) (Auto) % (45.0-75.0) Lymphocytes (%) (Auto) % (20.0-45.0) Monocytes (%) (Auto) % (1.0-10.0) Eosinophils (%) (Auto) % (0.0-3.0) Basophils (%) (Auto) % (0.0-2.0) Sodium Level 141 MMOL/L (136-145) Potassium Level 5.4 MMOL/L (3.5-5.1) H Chloride Level 109 MMOL/L (98-107) H Carbon Dioxide Level 20 MMOL/L (21-32) L Anion Gap 12 mmol/L (5-15) Blood Urea Nitrogen 66 mg/dL (7-18) H Creatinine 3.2 MG/DL (0.55-1.30) H Estimated Glomerular Filtration Rate 14.4 mL/min (>60) Glucose Level 90 MG/DL (74-106) Calcium Level 7.9 MG/DL (8.5-10.1) L Total Bilirubin 1.2 MG/DL (0.2-1.0) H Direct Bilirubin 0.6 MG/DL (0.0-0.3) H Aspartate Amino Transferase (AST) 28 U/L (15-37) Alanine Aminotransferase (ALT) 14 U/L (12-78) Alkaline Phosphatase 181 U/L (46-116) H Troponin I 0.037 ng/mL (0.000-0.056) Pro-B-Type Natriuretic Peptide 29223 pg/mL (0-125) H Total Protein 7.4 G/DL (6.4-8.2) Albumin 2.7 G/DL (3.4-5.0) L Globulin 4.7 g/dL Albumin/Globulin Ratio 0.6 (1.0-2.7) L Microbiology Date/Time Source Procedure Growth Status 08/30/20 18:10 Nasopharynx SARS-CoV-2 RdRp Gene Assay - Final Complete EKG Diagnostic Results Rate: normal Rhythm: NSR, other - Left bundle branch block Other Impression Rate of 88, abnormal EKG Chest X-Ray Diagnostic Results Chest X-Ray Diagnostic Results : Chest X-Ray Ordered: Yes # of Views/Limited/Complete: 1 View Indication: Shortness of Breath EP Interpretation: Yes Impression: Other - PA Scribe Text Radiology read. There is again patchy ill-defined airspace opacities at the right greater than left base with some consolidated appearance again seen on the right. There is now patchy ill-defined opacity at the right upper lung. A small right pleural effusion is suggested. The patient is rotated to the right. Status post median sternotomy again noted. Last Vital Signs Date Time Temp Pulse Resp B/P (MAP) Pulse Ox O2 Delivery O2 Flow Rate FiO2 08/30/20 17:42 106 20 140/102 (115) 100 Non-Rebreather 15.0 Disposition: ADMITTED INPATIENT Condition: Serious Gage uJng M.D. Aug 30, 2020 18:22
[2020-08-30 18:32] LABS: CALCIUM 7.9 MG/DL (8.5-10.1); CREATININE 3.2 MG/DL (0.55-1.30); POTASSIUM 5.4 MMOL/L (3.5-5.1)
[2020-08-30 18:43] LABS: ALBUMIN 2.7 G/DL (3.4-5.0); ALBUMIN/GLOBULIN RATIO 0.6 (1.0-2.7); BILIRUBIN,TOTAL 1.2 MG/DL (0.2-1.0)
[2020-08-30 18:45] LABS: BILIRUBIN,DIRECT 0.6 MG/DL (0.0-0.3)
--- NOTE | 2020-08-30 18:46 | Diagnostic Imaging Report ---
History: SOB Exam: XR CXR 1 VIEW Comparison: 01/16/2020 FINDINGS/IMPRESSION: There is again patchy ill-defined airspace opacities at the right greater than left base with some consolidated appearance again seen on the right. There is now patchy ill-defined opacity at the right upper lung. A small right pleural effusion is suggested. The patient is rotated to the right. Status post median sternotomy again noted.
[2020-08-30 19:15] VITALS: BP 132/113
[2020-08-30] MEDS ORDERED: cefTRIAXone 1 GM in NS 55 ML IVPB ONE (19:30)
[2020-08-30] MEDS ORDERED: Azithromycin 500 MG in NS 275 ML IV ONE (19:30)
[2020-08-30 20:30] VITALS: BP 129/83
[2020-08-30 21:30] VITALS: BP 126/78
[2020-08-30 23:00] VITALS: BP 123/87
[2020-08-30] MEDS ORDERED: Albuterol/Ipratropium 3ml neb HHN PRN (23:45)
[2020-08-30] MEDS ORDERED: Promethazine/Codeine 5ml UD ORAL PRN (23:45)
[2020-08-30] MEDS ORDERED: Miralax 17gm pkt ORAL PRN (23:45)
[2020-08-31 00:03] LABS: CREATINE KINASE 128 U/L (26-308)
[2020-08-31 00:41] VITALS: BP 131/70
[2020-08-31] MEDS: HydrALAZINE 50mg tab ORAL SCH ×4 (01:31→22:00)
[2020-08-31 02:32] LABS: APPEARANCE,URINE SLIGHTLY CLOUDY; BILIRUBIN, URINE NEGATIVE (NEGATIVE); GLUCOSE, URINE (UA) NEGATIVE (NEGATIVE); KETONES,URINE NEGATIVE (NEGATIVE); LEUKOCYTE ESTERASE ,URINE 1+ (NEGATIVE); NITRITE,URINE NEGATIVE (NEGATIVE); PH,URINE 5 (4.5-8.0); PROTEIN,URINE 2+ (NEGATIVE); UROBILINOGEN,URINE NORMAL MG/DL (0.0-1.0)
[2020-08-31 02:33] LABS: COLOR,URINE PALE YELLOW
[2020-08-31 04:00] VITALS: BP 140/72
[2020-08-31] MEDS: NovoLOG Insulin Flexpen SUBQ SCH ×4 (06:30→20:38)
[2020-08-31 06:49] LABS: INR 1.3 (0.9-1.1)
[2020-08-31 06:50] LABS: HEMATOCRIT 32.6 % (37.0-47.0); HEMOGLOBIN 9.7 G/DL (12.0-16.0); MEAN CORPUSCULAR VOLUME 97 FL (80-99); PLATELET COUNT 134 K/UL (150-450); RED BLOOD COUNT 3.36 M/UL (4.20-5.40); WHITE BLOOD COUNT 19.5 K/UL (4.8-10.8)
[2020-08-31 07:13] LABS: ALBUMIN 2.7 G/DL (3.4-5.0); ANION GAP 10 mmol/L (5-15); BLOOD UREA NITROGEN 69 mg/dL (7-18); CALCIUM 8.5 MG/DL (8.5-10.1); CARBON DIOXIDE 23 MMOL/L (21-32); CHLORIDE 107 MMOL/L (98-107); CREATININE 3.3 MG/DL (0.55-1.30); PHOSPHORUS 4.9 MG/DL (2.5-4.9); POTASSIUM 5.8 MMOL/L (3.5-5.1); SODIUM 140 MMOL/L (136-145)
[2020-08-31 07:18] LABS: % IRON SATURATION 9 % (15-50); IRON 25 ug/dL (50-175); LACTATE DEHYDROGENASE 307 U/L (81-234); TOTAL IRON BINDING CAPACITY 286 ug/dL (250-450)
[2020-08-31 08:00] VITALS: BP 129/58
[2020-08-31] MEDS: Heparin 5000 units/ml inj SUBQ SCH ×2 (09:00→20:46)
--- NOTE | 2020-08-31 09:45 | History and Physical Report ---
DATE OF ADMISSION: 08/30/2020 TIME SEEN: 8 a.m. CONSULTANTS: 1. Tiana Cool MD. 2. Ayush Rodriguez MD 3. Sina Paulson MD. 4. Jay Severino MD. CHIEF COMPLAINT: Shortness of breath, CHF, pneumonia, hypertension, diabetes. BRIEF HISTORY: This is a 70-year-old female who lives at home presents with two days of increased shortness of breath, came to [facility], diagnosed with exacerbation of CHF and pneumonia, admitted to telemetry, currently O2 NC, calm, slight short of breath in bed, no complaint. REVIEW OF SYSTEMS: No chest pain. Slight short of breath. No nausea, vomiting, or diarrhea. PAST MEDICAL HISTORY: Hypertension, CHF, recent COVID, right pleural effusion, renal failure. PAST SURGICAL HISTORY: Thyroid. MEDICATIONS: Include azithromycin, ceftriaxone, heparin, dexamethasone, gabapentin, amlodipine, allopurinol, hydralazine, and Zofran. ALLERGIES: Denies. SOCIAL HISTORY: No smoking. No alcohol. No intravenous drug abuse. FAMILY HISTORY: Noncontributory. PHYSICAL EXAMINATION: GENERAL: Calm in bed, oriented x3, slight short of breath. VITAL SIGNS: Temperature 97, pulse 78, respiratory rate 16, blood pressure 140/72. CARDIOVASCULAR: No murmur. LUNGS: Poor exchange. ABDOMEN: Bowel sounds distant. EXTREMITIES: No cyanosis, clubbing, or edema. NEUROLOGIC: The patient moves all extremities, slightly weak. LABORATORY AND DIAGNOSTIC DATA: Labs at this time show white count 19, hemoglobin and hematocrit 9.7 and 32, platelets 134. Potassium 5.8, BUN and creatinine 69 and 3.3. Magnesium 2.6. Albumin 2.7. INR is 1.3. Urinalysis show 1+ leukocyte esterase. ASSESSMENT: 1. Shortness of breath. 2. CHF exacerbation. 3. UTI. 4. Pneumonia. 5. Anemia. 6. Malnutrition. 7. Hypertension. 8. Diabetes. 9. Recent COVID. 10. Right pleural effusion. 11. Renal failure. PLAN: 1. O2 and pulmonary treatment. 2. Antibiotics per Infectious diseases. 3. Blood pressure, blood sugar, and pain control. 4. Dietary followup. 5. Resume home medications. 6. Nephrology evaluation, Dr. Severino. Dyllan King D.O. DR: Tita JOB#: [id number] CC:
--- NOTE | 2020-08-31 11:14 | Consultation ---
Consult Note Consult Note I am asked to evaluate the patient at the request of Dr. King for renal failure Patient known to me from her previous admission Patient seen, examined, data reviewed, previous records reviewed Previous admission patient was left with serum creatinine of 1.9 HPI: 70-year old female history of hypertension, diabetes, CHF, COVID-19 presents for shortness of breath. Patient states she has been feeling short of breath for the past couple of days. She denies any fever cough or chest pain. No nausea or vomiting. She states she had a positive coronavirus test approximately 9 days ago. She has a history of ascites as well as chronic lower extremity edema. She reports orthopnea and shortness of breath on exertion. On EMS arrival to her home she was approximately 87% on room air. Allergies: No Known Allergies (Unverified , 10/10/19) COVID-19 Screening Contact w/high risk pt: No Recent Travel to affected area: No Experienced COVID-19 symptoms?: Yes COVID-19 Testing performed AMORTIZATION CLERK: No COVID-19 Screening: Positive COVID-19 COVID-19 Testing Source: (08/25/20) Hx Cardiac Problems: Yes - ESHF Hx Hypertension: Yes - HTN and mod pulmonary arterial systolic HTN Hx Asthma: Yes Hx Diabetes: Yes Hx Gastrointestinal Problems: Yes Hx Neurological Problems: No - ALOC when hypoglycemic Vital Signs in ER Date Time Temp Pulse Resp B/P (MAP) Pulse Ox O2 Delivery O2 Flow Rate FiO2 08/30/20 17:42 106 20 140/102 (115) 100 Non-Rebreather 15.0 PHYSICAL EXAMINATION: VITAL SIGNS: Show blood pressure of 130/63, pulse 75, respirations 18, and temperature 98. HEAD AND NECK: Showed no JVD. LUNGS: Coarse rhonchi, bibasilar rales. CARDIOVASCULAR: Shows regular S1 and S2 with no gallop. ABDOMEN: Soft. EXTREMITIES: Bilateral 2+ pitting edema. LABORATORY DATA: Labs show white count of 19.5, hemoglobin of 9.7, hematocrit 32.7, and platelet count 134. Sodium 140, potassium 5.8, BUN of 16, creatinine 3.3, and glucose of 81. Magnesium is 2.6. . Assessment/Plan (1) Renal failure (ARF), acute on chronic (2) Diabetes mellitus (3) Hypoglycemia (4) Hyperkalemia (5) Diabetic nephropathy (6) H/o Pleural effusion (7) Morbid obesity (8) Low Iron Anemia (9) HypoThyroidism Chan IV fluids Adjust BP meds Previous 2D echocardiogram ejection fraction is reported to 50% Previous Kidney ultrasound noted Anemia work-up As needed Kayexalate for high potassium Keep blood pressure and blood sugar in check Monitor renal parameters I spent an additional 36 minutes on review of medical records including prior hospital records,consult notes, progress notes, procedures ,imaging labs, hemodynamics, and other clinical documentation. Over 35 min Jay Severino MD Aug 31, 2020 11:14
[2020-08-31] MEDS ORDERED: D5 1/2NS 1,000 ML IV SCH (11:15)
[2020-08-31] MEDS ORDERED: Sodium Polystyrene Sulfonate 15gm Powder ORAL SCH (11:30)
[2020-08-31 12:00] VITALS: BP 131/63
--- NOTE | 2020-08-31 12:18 | Consultation ---
History of Present Illness General Date patient seen: Aug 31, 2020 Time patient seen: 10:00 Chief Complaint: Dyspnea/Respdistress Referring physician: dr King Present Illness HPI 70 years old female with past medical history of hypertension, congestive heart failure, diabetes mellitus, recent COVID-19 , diagnosed 9 days ago, presented to emergency room for evaluation due to shortness of breath. Patient reported being short of breath for the last few days. 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 Patient denied fever or chills. Patient denied chest pain. Upon evaluation pulse oximetry was 100% on NRM ; patient was mildly tachycardic with heart rate 106 , blood pressure was 140/102 , no fevers. Laboratory work-up revealed significant leukocytosis WBC 19, hemoglobin 9.5 , hematocrit 31, platelet count 139. Sodium 141, potassium 5.4 chloride 109. BUN 66, creatinine 3.2. Glucose 90. CRP 11.8 Troponin 0.037, pro BNP 05960. Stable LFT. Rapid COVID-19 was negative. EKG revealed sinus rhythm with bundle branch block Chest x-ray revealed patchy ill-defined opacity in the right upper lobe. In emergency department patient received Lasix, empiric antibiotic and admitted for further management. Allergies: Coded Allergies: No Known Allergies (Unverified , 10/10/19) Medication History Scheduled Albuterol Sulfate (Ventolin Hfa), 2 PUFFS INH EVERY 6 HOURS, (Reported) Allopurinol* (Allopurinol*), 300 MG ORAL DAILY Amlodipine Besylate* (Amlodipine Besylate*), 5 MG ORAL DAILY, (Reported) Atorvastatin (Lipitor), 80 MG ORAL DAILY, (Reported) Atorvastatin Calcium* (Atorvastatin Calcium*), Unknown Dose ORAL BEDTIME, (Reported) Docusate Sodium (Docusate Sodium), 100 MG ORAL DAILY, (Reported) Gabapentin* (Gabapentin*), 300 MG ORAL DAILY, (Reported) Hydralazine HCl (Hydralazine HCl), 50 MG ORAL Q8HR Levothyroxine Sodium* (Synthroid*), 75 MCG ORAL DAILY, (Reported) Metolazone (Metolazone), 5 MG ORAL DAILY Pantoprazole* (Pantoprazole*), 40 MG ORAL EVERY 12 HOURS, (Reported) Miscellaneous Medications Acetaminophen (Mapap), 500 MG PO, (Reported) Betamet Diprop/Prop Gly (Betamethasone Dp Aug 0.05% Crm), 15 GM TP, (Reported) Insulin Aspart (Novolog), 60, (Reported) Patient History History Provided By: Patient Healthcare decision maker Resuscitation status full code Advanced Directive on File Past Medical/Surgical History Past Medical/Surgical History: (1) Diabetes mellitus (2) Diabetic nephropathy (3) Renal failure (ARF), acute on chronic (4) CAD (coronary artery disease) (5) Hypothyroidism (6) History of hypertension (7) CHF (congestive heart failure) Review of Systems Constitutional: Reports: weakness Eye: Reports: no symptoms ENT: Reports: no symptoms Respiratory: Reports: see HPI Cardiovascular: Reports: see HPI Gastrointestinal: Reports: no symptoms Genitourinary: Reports: no symptoms Musculoskeletal: Reports: no symptoms Skin: Reports: no symptoms Psychiatric: Reports: no symptoms Neurological: Reports: no symptoms Endocrine: Reports: no symptoms Hematologic/Lymphatic: Reports: no symptoms Physical Exam General Appearance: no apparent distress, other - obese, awake and alert [facility] female Lines, tubes and drains: peripheral HEENT: normocephalic, atraumatic, anicteric, mucous membranes moist Neck: non-tender - short and thick, supple Respiratory/Chest: crackles/rales - bibasilar Cardiovascular/Chest: normal rate - tele with SR with RBBB Abdomen: normal bowel sounds, non tender - obese, soft Neurologic: no motor/sensory deficits, alert, oriented x 3, responsive, normal mood/affect Musculoskeletal: normal muscle bulk Last 24 Hour Vital Signs Date Time Temp Pulse Resp B/P (MAP) Pulse Ox O2 Delivery O2 Flow Rate FiO2 08/31/20 09:51 71 129/58 08/31/20 08:00 98.1 71 20 129/58 (81) 96 08/31/20 05:34 140/72 08/31/20 04:00 60 08/31/20 04:00 97.5 70 16 140/72 (94) 98 08/31/20 02:06 Nasal Cannula 2.0 08/31/20 01:31 131/70 08/31/20 00:41 97.9 74 16 131/70 (90) 100 08/31/20 00:41 77 08/31/20 00:25 98.8 85 17 123/87 98 Nasal Cannula 2.0 08/30/20 23:00 98.8 85 17 123/87 98 Nasal Cannula 2.0 08/30/20 21:30 98.8 102 20 126/78 100 Nasal Cannula 2.0 08/30/20 20:30 98.8 90 20 129/83 100 Nasal Cannula 2.0 08/30/20 19:30 97 Nasal Cannula 2.0 28 08/30/20 19:15 123 31 132/113 100 Non-Rebreather 15.0 08/30/20 17:52 113 22 Non-Rebreather 15.0 08/30/20 17:52 113 22 140/102 100 Non-Rebreather 15.0 08/30/20 17:42 106 20 140/102 (115) 100 Non-Rebreather 15.0 Intake and Output 08/30/20 08/31/20 19:00 07:00 Intake Total 0 ml Output Total 750 ml Balance 0 ml -750 ml Intake Oral 0 ml Output Urine Total 750 ml # Bowel Movements 2 Laboratory Tests Test 08/30/20 18:10 08/31/20 01:30 08/31/20 05:38 08/31/20 06:10 White Blood Count 19.0 K/UL (4.8-10.8) H 19.5 K/UL (4.8-10.8) H Red Blood Count 3.31 M/UL (4.20-5.40) L 3.36 M/UL (4.20-5.40) L Hemoglobin 9.5 G/DL (12.0-16.0) L 9.7 G/DL (12.0-16.0) L Hematocrit 31.0 % (37.0-47.0) L 32.6 % (37.0-47.0) L Mean Corpuscular Volume 94 FL (80-99) 97 FL (80-99) Mean Corpuscular Hemoglobin 28.7 PG (27.0-31.0) 28.8 PG (27.0-31.0) Mean Corpuscular Hemoglobin Concent 30.6 G/DL (32.0-36.0) L 29.6 G/DL (32.0-36.0) L Red Cell Distribution Width 17.9 % (11.6-14.8) H 17.0 % (11.6-14.8) H Platelet Count 139 K/UL (150-450) L 134 K/UL (150-450) L Mean Platelet Volume 6.9 FL (6.5-10.1) 9.2 FL (6.5-10.1) Neutrophils (%) (Auto) % (45.0-75.0) % (45.0-75.0) Lymphocytes (%) (Auto) % (20.0-45.0) % (20.0-45.0) Monocytes (%) (Auto) % (1.0-10.0) % (1.0-10.0) Eosinophils (%) (Auto) % (0.0-3.0) % (0.0-3.0) Basophils (%) (Auto) % (0.0-2.0) % (0.0-2.0) Sodium Level 141 MMOL/L (136-145) 140 MMOL/L (136-145) Potassium Level 5.4 MMOL/L (3.5-5.1) H 5.8 MMOL/L (3.5-5.1) H Chloride Level 109 MMOL/L (98-107) H 107 MMOL/L (98-107) Carbon Dioxide Level 20 MMOL/L (21-32) L 23 MMOL/L (21-32) Anion Gap 12 mmol/L (5-15) 10 mmol/L (5-15) Blood Urea Nitrogen 66 mg/dL (7-18) H 69 mg/dL (7-18) H Creatinine 3.2 MG/DL (0.55-1.30) H 3.3 MG/DL (0.55-1.30) H Estimat Glomerular Filtration Rate 14.4 mL/min (>60) 13.9 mL/min (>60) Glucose Level 90 MG/DL (74-106) 81 MG/DL (74-106) Uric Acid 9.7 MG/DL (2.6-7.2) H Calcium Level 7.9 MG/DL (8.5-10.1) L 8.5 MG/DL (8.5-10.1) Total Bilirubin 1.2 MG/DL (0.2-1.0) H Direct Bilirubin 0.6 MG/DL (0.0-0.3) H Aspartate Amino Transf (AST/SGOT) 28 U/L (15-37) Alanine Aminotransferase (ALT/SGPT) 14 U/L (12-78) Alkaline Phosphatase 181 U/L (46-116) H Total Creatine Kinase 128 U/L (26-308) Troponin I 0.037 ng/mL (0.000-0.056) Pro-B-Type Natriuretic Peptide 38247 pg/mL (0-125) H Total Protein 7.4 G/DL (6.4-8.2) Albumin 2.7 G/DL (3.4-5.0) L 2.7 G/DL (3.4-5.0) L Globulin 4.7 g/dL Albumin/Globulin Ratio 0.6 (1.0-2.7) L Urine Color Pale yellow Urine Appearance Slightly cloudy Urine pH 5 (4.5-8.0) Urine Specific Kemp 1.015 (1.005-1.035) Urine Protein 2+ (NEGATIVE) H Urine Glucose (UA) Negative (NEGATIVE) Urine Ketones Negative (NEGATIVE) Urine Blood 5+ (NEGATIVE) H Urine Nitrite Negative (NEGATIVE) Urine Bilirubin Negative (NEGATIVE) Urine Urobilinogen Normal MG/DL (0.0-1.0) Urine Leukocyte Esterase 1+ (NEGATIVE) H Urine RBC 30-40 /HPF (0 - 2) H Urine WBC 0-2 /HPF (0 - 2) Urine Squamous Epithelial Cells Occasional /LPF Urine Bacteria Occasional /HPF (NONE) Urine Eosinophils None seen (NONE SEEN) Urine Random Sodium 32 mmol/L (20-110) Urine Potassium Timed 68 mmol/L (12-62) H Stool Occult Blood Pending POC Whole Blood Glucose 70 MG/DL (74-106) L Differential Total Cells Counted 100 Neutrophils % (Manual) 85 % (45-75) H Lymphocytes % (Manual) 10 % (20-45) L Monocytes % (Manual) 5 % (1-10) Eosinophils % (Manual) 0 % (0-3) Basophils % (Manual) 0 % (0-2) Band Neutrophils 0 % (0-8) Platelet Estimate Decreased L Platelet Morphology Normal Hypochromasia 1+ Anisocytosis 1+ Erythrocyte Sedimentation Rate 60 MM/HR (0-30) H Reticulocyte Count 2.0 % (0.5-2.0) Prothrombin Time 14.4 SEC (9.30-11.50) H Prothromb Time International Ratio 1.3 (0.9-1.1) H Activated Partial Thromboplast Time 30 SEC (23-33) Phosphorus Level 4.9 MG/DL (2.5-4.9) Magnesium Level 2.6 MG/DL (1.8-2.4) H Iron Level 25 ug/dL (50-175) L Total Iron Binding Capacity 286 ug/dL (250-450) Percent Iron Saturation 9 % (15-50) L Unsaturated Iron Binding 261 ug/dL (112-346) Lactate Dehydrogenase 307 U/L (81-234) H C-Reactive Protein, Quantitative 11.8 mg/dL (0.00-0.90) H Carcinoembryonic Antigen Pending Vitamin B12 Level 907 PG/ML (193-986) Folate 6.1 NG/ML (8.6-58.9) L Test 08/31/20 11:47 POC Whole Blood Glucose 90 MG/DL (74-106) Microbiology Date/Time Source Procedure Growth Status 08/30/20 18:10 Nasopharynx SARS-CoV-2 RdRp Gene Assay - Final Complete Height (Feet): 5 Height (Inches): 10.00 Weight (Pounds): 218 Medications Current Medications Medications (Trade) Dose Ordered Sig/Braeden Route PRN Reason Start Time Stop Time Status Last Admin Dose Admin Acetaminophen (Tylenol) 650 mg Q4H PRN ORAL FEVER 08/30/20 23:45 09/29/20 23:44 Albuterol/ Ipratropium (Albuterol/ Ipratropium) 3 ml Q4H PRN HHN Shortness of Breath 08/30/20 23:45 09/04/20 23:44 Allopurinol (allopurinoL) 300 mg DAILY ORAL 08/31/20 09:00 09/30/20 08:59 08/31/20 09:51 Amlodipine Besylate (Norvasc) 5 mg DAILY ORAL 08/31/20 09:00 09/30/20 08:59 08/31/20 09:51 Azithromycin 250 mg/Dextrose 275 ml @ 275 mls/hr Q24HRS IV 08/31/20 20:00 09/05/20 19:59 Ceftriaxone Sodium 1 gm/ Dextrose 55 ml @ 110 mls/hr Q24H IVPB 08/31/20 19:00 09/07/20 18:59 Dexamethasone (Decadron) 4 mg DAILY ORAL 08/31/20 09:00 09/30/20 08:59 08/31/20 09:51 Dextrose (Dextrose 50%) 25 ml Q30M PRN IV Hypoglycemia 08/30/20 23:45 11/28/20 23:44 Dextrose (Dextrose 50%) 50 ml Q30M PRN IV Hypoglycemia 08/30/20 23:45 11/28/20 23:44 Dextrose/Sodium Chloride 1,000 ml @ 75 mls/hr [id number] IV 08/31/20 11:15 09/30/20 11:14 Gabapentin (Neurontin) 300 mg DAILY ORAL 08/31/20 09:00 09/30/20 08:59 08/31/20 09:51 Heparin Sodium (Porcine) (Heparin 5000 units/ml) 5,000 units EVERY 12 HOURS SUBQ 08/31/20 09:00 10/15/20 08:59 Hydralazine HCl (Apresoline) 50 mg Q8HR ORAL 08/31/20 00:00 11/29/20 00:00 08/31/20 05:34 Insulin Aspart (NovoLOG) BEFORE MEALS AND HS SUBQ 08/31/20 06:30 11/29/20 06:29 Levothyroxine Sodium (Synthroid) 75 mcg DAILY@0630 ORAL 08/31/20 06:30 09/30/20 06:29 08/31/20 05:34 Metoclopramide HCl (Reglan) 5 mg THREE TIMES A DAY ORAL 08/31/20 13:00 09/30/20 12:59 Ondansetron HCl (Zofran) 4 mg Q6H PRN IVP Nausea & Vomiting 08/30/20 23:45 09/29/20 23:44 Pantoprazole (Protonix) 40 mg EVERY 12 HOURS ORAL 08/31/20 21:00 09/30/20 20:59 Polyethylene Glycol (Miralax) 17 gm DAILYPRN PRN ORAL Constipation 08/30/20 23:45 09/29/20 23:44 Promethazine HCl/ Codeine (Phenergan with Codeine) 5 ml Q6H PRN ORAL cough 08/30/20 23:45 09/29/20 23:44 Sodium Polystyrene Sulfonate (Kayexalate) 45 gm ONCE ORAL 08/31/20 11:30 08/31/20 12:30 Assessment/Plan Assessment/Plan: ASSESSMENT Acute hypoxemic respiratory failure , requiring nonrebreather mask -improving Congestive heart failure with diastolic dysfunction Fluid overload leukocytosis Probably pneumonia Acute kidney injury Moderate MR Moderate pulm HTN Hypertension Diabetes mellitus Recent Covid infection Anemia Folate deficiency PLAN OF CARE tele O2 titrate to keep sat > 92%, currently down to O2 via NC pulm toilet fup with CXR empiric abx steroids repeat rapid COVID testing fup with inflam markers DVT prophylaxis venous Duplex BLE ECHO prel report with EF 50%, moderate MR and mod pulm HTN s/p Lasix x 1 in ED need diuresis but in VENANCIO renal US monitor volumes and spot diuresis as permitted GI prophylaxis BP and BS management monitor HH with goal to keep Hgb > 7, noted folic acid deficiency, started on folate supportive care case discussed and evaluated by supervising physician Jenna García NP Aug 31, 2020 12:18
--- NOTE | 2020-08-31 14:48 | Cardiology Report ---
APPROVED REPORT EXAM: Two-dimensional and M-mode echocardiogram with Doppler and color Doppler. INDICATION LV FUNCTION M-Mode DIMENSIONS IVSd1.5 (0.7-1.1cm)Left Atrium (MM)3.3 (1.6-4.0cm) LVDd4.2 (3.5-5.6cm)Aortic Root3.3 (2.0-3.7cm) PWd0.9 (0.7-1.1cm)Aortic Cusp Exc.1.6 (1.5-2.0cm) IVSs1.5 cm LVDs2.9 (2.5-4.0cm) PWs1.2 cm <Conclusion> Technically difficult study due to body habitus. Normal left ventricular chamber size, anteroseptal wall hypokinesia is evident, ischemic cardiomyopathy cannot be excluded. Left ventricular ejection fraction estimated to be grossly 50%. Mild left ventricular hypertrophy by 2-D. Mild bi- atrial enlargement. Mild right ventricular enlargement. Moderate aortic valve calcification with normal cusp excursion . Moderate thickened mitral valve leaflets with normal excursion. Moderate mitral annulus and aortic root calcification. Pulmonic valve not well visualized. Normal tricuspid valve structure. IVC dilated at 2.3 cm without physiologic collapse suggestive of increased RA pressure,RAP estimated 20 mmHg. A color flow and spectral Doppler study was performed and revealed: Mild to moderate aortic insufficiency. Peak aortic valve gradient of 12 mm Hg and a mean of 6 mmHg. Moderate mitral regurgitation. Peak mitral valve gradient of 11 mm Hg and a mean of 4 mmHg. Mitral inflow indicates normal left ventricular diastolic function Severe tricuspid regurgitation. Tricuspid systolic velocities suggests peak right ventricular systolic pressure of 49 mmHg,consistent with moderate pulmonary hypertension. Pulmonic regurgitation present.
[2020-08-31 16:00] VITALS: BP 153/89
--- NOTE | 2020-08-31 16:16 | Cardiac Electrophysiology PN ---
Subjective Subjective [id number] Objective Last 24 Hour Vital Signs Date Time Temp Pulse Resp B/P (MAP) Pulse Ox O2 Delivery O2 Flow Rate FiO2 08/31/20 13:29 131/63 08/31/20 12:00 75 08/31/20 12:00 98.0 75 20 131/63 (85) 100 08/31/20 09:51 71 129/58 08/31/20 08:00 98.1 71 20 129/58 (81) 96 08/31/20 08:00 74 08/31/20 05:34 140/72 08/31/20 04:00 60 08/31/20 04:00 97.5 70 16 140/72 (94) 98 08/31/20 02:06 Nasal Cannula 2.0 08/31/20 01:31 131/70 08/31/20 00:41 97.9 74 16 131/70 (90) 100 08/31/20 00:41 77 08/31/20 00:25 98.8 85 17 123/87 98 Nasal Cannula 2.0 08/30/20 23:00 98.8 85 17 123/87 98 Nasal Cannula 2.0 08/30/20 21:30 98.8 102 20 126/78 100 Nasal Cannula 2.0 08/30/20 20:30 98.8 90 20 129/83 100 Nasal Cannula 2.0 08/30/20 19:30 97 Nasal Cannula 2.0 28 08/30/20 19:15 123 31 132/113 100 Non-Rebreather 15.0 08/30/20 17:52 113 22 Non-Rebreather 15.0 08/30/20 17:52 113 22 140/102 100 Non-Rebreather 15.0 08/30/20 17:42 106 20 140/102 (115) 100 Non-Rebreather 15.0 Intake and Output 08/30/20 08/31/20 19:00 07:00 Intake Total 0 ml Output Total 750 ml Balance 0 ml -750 ml Intake Oral 0 ml Output Urine Total 750 ml # Bowel Movements 2 Laboratory Tests Test 08/30/20 18:10 08/31/20 01:30 08/31/20 05:38 08/31/20 06:10 White Blood Count 19.0 K/UL (4.8-10.8) H 19.5 K/UL (4.8-10.8) H Red Blood Count 3.31 M/UL (4.20-5.40) L 3.36 M/UL (4.20-5.40) L Hemoglobin 9.5 G/DL (12.0-16.0) L 9.7 G/DL (12.0-16.0) L Hematocrit 31.0 % (37.0-47.0) L 32.6 % (37.0-47.0) L Mean Corpuscular Volume 94 FL (80-99) 97 FL (80-99) Mean Corpuscular Hemoglobin 28.7 PG (27.0-31.0) 28.8 PG (27.0-31.0) Mean Corpuscular Hemoglobin Concent 30.6 G/DL (32.0-36.0) L 29.6 G/DL (32.0-36.0) L Red Cell Distribution Width 17.9 % (11.6-14.8) H 17.0 % (11.6-14.8) H Platelet Count 139 K/UL (150-450) L 134 K/UL (150-450) L Mean Platelet Volume 6.9 FL (6.5-10.1) 9.2 FL (6.5-10.1) Neutrophils (%) (Auto) % (45.0-75.0) % (45.0-75.0) Lymphocytes (%) (Auto) % (20.0-45.0) % (20.0-45.0) Monocytes (%) (Auto) % (1.0-10.0) % (1.0-10.0) Eosinophils (%) (Auto) % (0.0-3.0) % (0.0-3.0) Basophils (%) (Auto) % (0.0-2.0) % (0.0-2.0) Sodium Level 141 MMOL/L (136-145) 140 MMOL/L (136-145) Potassium Level 5.4 MMOL/L (3.5-5.1) H 5.8 MMOL/L (3.5-5.1) H Chloride Level 109 MMOL/L (98-107) H 107 MMOL/L (98-107) Carbon Dioxide Level 20 MMOL/L (21-32) L 23 MMOL/L (21-32) Anion Gap 12 mmol/L (5-15) 10 mmol/L (5-15) Blood Urea Nitrogen 66 mg/dL (7-18) H 69 mg/dL (7-18) H Creatinine 3.2 MG/DL (0.55-1.30) H 3.3 MG/DL (0.55-1.30) H Estimat Glomerular Filtration Rate 14.4 mL/min (>60) 13.9 mL/min (>60) Glucose Level 90 MG/DL (74-106) 81 MG/DL (74-106) Uric Acid 9.7 MG/DL (2.6-7.2) H Calcium Level 7.9 MG/DL (8.5-10.1) L 8.5 MG/DL (8.5-10.1) Total Bilirubin 1.2 MG/DL (0.2-1.0) H Direct Bilirubin 0.6 MG/DL (0.0-0.3) H Aspartate Amino Transf (AST/SGOT) 28 U/L (15-37) Alanine Aminotransferase (ALT/SGPT) 14 U/L (12-78) Alkaline Phosphatase 181 U/L (46-116) H Total Creatine Kinase 128 U/L (26-308) Troponin I 0.037 ng/mL (0.000-0.056) Pro-B-Type Natriuretic Peptide 60501 pg/mL (0-125) H Total Protein 7.4 G/DL (6.4-8.2) Albumin 2.7 G/DL (3.4-5.0) L 2.7 G/DL (3.4-5.0) L Globulin 4.7 g/dL Albumin/Globulin Ratio 0.6 (1.0-2.7) L Urine Color Pale yellow Urine Appearance Slightly cloudy Urine pH 5 (4.5-8.0) Urine Specific Gem 1.015 (1.005-1.035) Urine Protein 2+ (NEGATIVE) H Urine Glucose (UA) Negative (NEGATIVE) Urine Ketones Negative (NEGATIVE) Urine Blood 5+ (NEGATIVE) H Urine Nitrite Negative (NEGATIVE) Urine Bilirubin Negative (NEGATIVE) Urine Urobilinogen Normal MG/DL (0.0-1.0) Urine Leukocyte Esterase 1+ (NEGATIVE) H Urine RBC 30-40 /HPF (0 - 2) H Urine WBC 0-2 /HPF (0 - 2) Urine Squamous Epithelial Cells Occasional /LPF Urine Bacteria Occasional /HPF (NONE) Urine Eosinophils None seen (NONE SEEN) Urine Random Sodium 32 mmol/L (20-110) Urine Potassium Timed 68 mmol/L (12-62) H Stool Occult Blood Pending POC Whole Blood Glucose 70 MG/DL (74-106) L Differential Total Cells Counted 100 Neutrophils % (Manual) 85 % (45-75) H Lymphocytes % (Manual) 10 % (20-45) L Monocytes % (Manual) 5 % (1-10) Eosinophils % (Manual) 0 % (0-3) Basophils % (Manual) 0 % (0-2) Band Neutrophils 0 % (0-8) Platelet Estimate Decreased L Platelet Morphology Normal Hypochromasia 1+ Anisocytosis 1+ Erythrocyte Sedimentation Rate 60 MM/HR (0-30) H Reticulocyte Count 2.0 % (0.5-2.0) Prothrombin Time 14.4 SEC (9.30-11.50) H Prothromb Time International Ratio 1.3 (0.9-1.1) H Activated Partial Thromboplast Time 30 SEC (23-33) Phosphorus Level 4.9 MG/DL (2.5-4.9) Magnesium Level 2.6 MG/DL (1.8-2.4) H Iron Level 25 ug/dL (50-175) L Total Iron Binding Capacity 286 ug/dL (250-450) Percent Iron Saturation 9 % (15-50) L Unsaturated Iron Binding 261 ug/dL (112-346) Lactate Dehydrogenase 307 U/L (81-234) H C-Reactive Protein, Quantitative 11.8 mg/dL (0.00-0.90) H Carcinoembryonic Antigen Pending Vitamin B12 Level 907 PG/ML (193-986) Folate 6.1 NG/ML (8.6-58.9) L Test 08/31/20 11:47 POC Whole Blood Glucose 90 MG/DL (74-106) Microbiology Date/Time Source Procedure Growth Status 08/31/20 15:32 Nasopharynx SARS-CoV-2 RdRp Gene Assay - Final Complete 08/30/20 18:10 Nasopharynx SARS-CoV-2 RdRp Gene Assay - Final Complete Sina Paulson MD Aug 31, 2020 16:16
--- NOTE | 2020-08-31 16:40 | Diagnostic Imaging Report ---
EXAM: US Retroperitoneal Limited, Renal CLINICAL HISTORY: RENAL-A TECHNIQUE: Real-time limited ultrasound of the retroperitoneum with image documentation. COMPARISON: 01/12/2020. FINDINGS: Limitations: Limited evaluation due to bowel gas. Right kidney: The right kidney measures 7.9 x 4.3 x 4.1 cm. Mildly atrophic right kidney. 1.3 cm complex cyst mid pole region of the right kidney. No significant change from the previous study of 01/12/2020. No hydronephrosis. No stones. Left kidney: Left kidney measures 9.4 x 5.5 x 5.1 cm. Bladder: Chan catheter within the bladder. Free fluid: Incidental note is made of moderate quantity of abdominal ascites. Pleural space: Incidental note is made of small bilateral pleural effusions. IMPRESSION: 1. Ascites. 2. Bilateral pleural effusions. 3. Complex right renal cysts of uncertain etiology. This complex cyst is unchanged from the study of 01/12/2020. 4. Mildly atrophic right kidney. 5. Magnetic resonance imaging of the abdomen with gadolinium administration is advised for further evaluation of complex right renal cyst.
[2020-08-31] MEDS ORDERED: cefTRIAXone 1 GM in D5W 55 ML IVPB SCH (19:00)
[2020-08-31 20:00] VITALS: BP 102/75
[2020-08-31] MEDS ORDERED: Azithromycin 250 MG in D5W 275 ML IV SCH (20:00)
[2020-08-31] MEDS: Ceftaroline 200 MG in NS 55 ML IV SCH (20:40)
--- NOTE | 2020-08-31 21:00 | Consultation ---
DATE OF CONSULTATION: 08/31/2020 CARDIOLOGY CONSULTATION CONSULTING PHYSICIAN: Sina Paulson M.D. REFERRING PHYSICIAN: Dyllan King D.O. REASON FOR CONSULTATION: Evaluation of hypertension and congestive heart failure. HISTORY OF PRESENT ILLNESS: The patient is a 70-year-old lady with hypertension, diabetes, congestive heart failure, as well as recent COVID-19, was diagnosed 9 days ago, presented to the emergency room for increasing shortness of breath. The patient also had bilateral lower extremity edema as well as dressing for cellulitis and also has COPD. Her EKG showed underlying left bundle-branch block. An echo showed EF of 50%. Upon arrival of paramedics, she was saturating at 87% on room air and was placed on a non-rebreather. Her BNP was more than 19,000 and rapid COVID-19 was negative. REVIEW OF SYSTEMS: Negative other than what is mentioned in the history of present illness. PAST MEDICAL HISTORY: As mentioned above. FAMILY HISTORY: Noncontributory. SOCIAL HISTORY: She lives at home. Does not smoke or drink alcohol. PHYSICAL EXAMINATION: VITAL SIGNS: Show blood pressure of 130/63, pulse 75, respirations 18, and temperature 98. HEAD AND NECK: Showed no JVD. LUNGS: Coarse rhonchi, bibasilar rales. CARDIOVASCULAR: Shows regular S1 and S2 with no gallop. ABDOMEN: Soft. EXTREMITIES: Bilateral 2+ pitting edema. LABORATORY DATA: Labs show white count of 19.5, hemoglobin of 9.7, hematocrit 32.7, and platelet count 134. Sodium 140, potassium 5.8, BUN of 16, creatinine 3.3, and glucose of 81. Magnesium is 2.6. ASSESSMENT AND PLAN: 1. Volume overload, likely due to renal failure as creatinine is 3.3. The echocardiogram showed ejection fraction of 50%. I will discontinue amlodipine that will contribute to lower extremity edema. The patient may need IV Lasix in view of high BNP. We will discuss with Dr. Severino. 2. Left bundle-branch block. 3. Diastolic dysfunction. Ejection fraction of 50%. 4. Hyperkalemia. The patient got Kayexalate for the potassium. Further evaluation by Dr. Severino. 5. Diabetic nephropathy. 6. Renal failure. 7. Hypothyroidism. 8. Iron-deficiency anemia. Thank you very much for allowing me to participate in the care of this patient. Please do not hesitate to contact me for any questions regarding my evaluation.. Sina Paulson M.D. DR: GAUTAM JOB#: [id number] CC:
[2020-09-01] VITALS: BP 115/58
[2020-09-01] MEDS ORDERED: Morphine Sulfate 2mg/ml Inj(IV/IM USE ONLY) IVP PRN (03:00)
[2020-09-01] MEDS: Morphine Sulfate 2mg/ml Inj(IV/IM USE ONLY) IVP PRN (03:04)
[2020-09-01 04:00] VITALS: BP 118/55
[2020-09-01] MEDS: HydrALAZINE 50mg tab ORAL SCH ×3 (05:53→21:14)
[2020-09-01] MEDS: NovoLOG Insulin Flexpen SUBQ SCH ×4 (05:55→21:24)
[2020-09-01 07:28] LABS: HEMATOCRIT 28.5 % (37.0-47.0); HEMOGLOBIN 8.5 G/DL (12.0-16.0); MEAN CORPUSCULAR VOLUME 97 FL (80-99); PLATELET COUNT 125 K/UL (150-450); RED BLOOD COUNT 2.94 M/UL (4.20-5.40); WHITE BLOOD COUNT 17.6 K/UL (4.8-10.8)
[2020-09-01 08:00] VITALS: BP 109/62
[2020-09-01 08:14] LABS: ALANINE AMINOTRANSFERASE 14 U/L (12-78); ALBUMIN 2.3 G/DL (3.4-5.0); ALBUMIN/GLOBULIN RATIO 0.5 (1.0-2.7); ALKALINE PHOSPHATASE 161 U/L (46-116); ANION GAP 9 mmol/L (5-15); ASPARTATE AMINO TRANSFERASE 21 U/L (15-37); BILIRUBIN,TOTAL 0.7 MG/DL (0.2-1.0); BLOOD UREA NITROGEN 72 mg/dL (7-18); CALCIUM 7.7 MG/DL (8.5-10.1); CARBON DIOXIDE 22 MMOL/L (21-32); CHLORIDE 108 MMOL/L (98-107); CHOLESTEROL 110 MG/DL (< 200); CREATINE KINASE 65 U/L (26-308); CREATININE 3.5 MG/DL (0.55-1.30); FERRITIN 145 NG/ML (8-388); GAMMA GLUTAMYL TRANSPEPTIDASE 80 U/L (5-85); HDL CHOLESTEROL 34 MG/DL (40-60); LACTATE DEHYDROGENASE 226 U/L (81-234); PHOSPHORUS 5.2 MG/DL (2.5-4.9); POTASSIUM 5.4 MMOL/L (3.5-5.1); SODIUM 139 MMOL/L (136-145); TRIGLYCERIDES 60 MG/DL (30-150)
[2020-09-01 08:15] LABS: % IRON SATURATION 5 % (15-50); IRON 13 ug/dL (50-175); TOTAL IRON BINDING CAPACITY 276 ug/dL (250-450)
[2020-09-01] MEDS: Heparin 5000 units/ml inj SUBQ SCH ×2 (08:32→21:22)
[2020-09-01] MEDS ORDERED: Levothyroxine 25mcg tab ORAL SCH (09:15)
[2020-09-01] MEDS ORDERED: Sodium Polystyrene Sulfonate 15gm Powder ORAL SCH (09:15)
--- NOTE | 2020-09-01 09:47 | General Progress Note ---
Subjective Constitutional: Reports: weakness Respiratory: Reports: shortness of breath Allergies: Coded Allergies: No Known Allergies (Unverified , 10/10/19) All Systems: reviewed and negative except above Subjective o2nc calm Objective Last 24 Hour Vital Signs Date Time Temp Pulse Resp B/P (MAP) Pulse Ox O2 Delivery O2 Flow Rate FiO2 09/01/20 08:00 96.1 68 20 109/62 (78) 98 09/01/20 06:45 98 Nasal Cannula 2.0 28 09/01/20 05:53 125/51 09/01/20 04:00 96.8 73 20 118/55 (76) 99 09/01/20 04:00 72 09/01/20 00:00 97.9 68 20 115/58 (77) 98 09/01/20 00:00 68 08/31/20 22:00 102/75 08/31/20 21:00 Nasal Cannula 2.0 08/31/20 20:00 74 08/31/20 20:00 97.9 74 20 102/75 (84) 100 08/31/20 19:15 98 Nasal Cannula 2.0 28 08/31/20 16:00 98.1 76 20 153/89 (110) 100 08/31/20 16:00 72 08/31/20 13:29 131/63 08/31/20 12:00 75 08/31/20 12:00 98.0 75 20 131/63 (85) 100 08/31/20 09:51 71 129/58 Intake and Output 08/31/20 09/01/20 19:00 07:00 Intake Total 324 ml Output Total 300 ml 300 ml Balance 24 ml -300 ml Intake Oral 324 ml Output Urine Total 300 ml 300 ml # Voids 1 # Bowel Movements 1 1 Laboratory Tests 08/31/20 11:47: POC Whole Blood Glucose 90 08/31/20 16:33: POC Whole Blood Glucose 139H 08/31/20 20:35: POC Whole Blood Glucose [Pending] 09/01/20 05:50: POC Whole Blood Glucose 219H 09/01/20 06:10: White Blood Count 17.6H, Red Blood Count 2.94L, Hemoglobin 8.5L, Hematocrit 28.5L, Mean Corpuscular Volume 97, Mean Corpuscular Hemoglobin 28.7, Mean Corpuscular Hemoglobin Concent 29.6L, Red Cell Distribution Width 17.0H, Pl atelet Count 125L, Mean Platelet Volume 7.6, Neutrophils (%) (Auto) , Lymphocytes (%) (Auto) , Monocytes (%) (Auto) , Eosinophils (%) (Auto) , Basophils (%) (Auto) , Neutrophils % (Manual) [Pending], Lymphocytes % (Manual) [Pending], Platelet Estimate [Pending], Platelet Morphology [Pending], D-Dimer 3.13H, Sodium Level 139, Potassium Level 5.4H, Chloride Level 108H, Carbon Dioxide Level 22, Anion Gap 9, Blood Urea Nitrogen 72H, Creatinine 3.5H, Estimat Glomerular Filtration Rate 13.0, Glucose Level 219#H, Hemoglobin A1c 7.4H, Uric Acid 9.5H, Calcium Level 7.7L, Phosphorus Level 5.2H, Magnesium Level 2.4, Iron Level 13L, Total Iron Binding Capacity 276, Percent Iron Saturation 5L, Unsaturated Iron Binding 263, Ferritin 145, Total Bilirubin 0.7, Gamma Glutamyl Transpeptidase 80, Aspartate Amino Transf (AST/SGOT) 21, Alanine Aminotransferase (ALT/SGPT) 14, Alkaline Phosphatase 161H, Lactate Dehydrogenase 226, Total Creatine Kinase 65, C-Reactive Protein, Quantitative 17.6H, Pro-B-Type Natriuretic Peptide 72275C, Total Protein 6.9, Albumin 2.3L, Globulin 4.6, Albumin/Globulin Ratio 0.5L, Triglycerides Level 60, Cholesterol Level 110, LDL Cholesterol 58, HDL Cholesterol 34L, Cholesterol/HDL Ratio 3.2L, Vitamin B12 Level 751, Folate 5.9L, Thyroid Stimulating Hormone (TSH) 9.353H Height (Feet): 5 Height (Inches): 10.00 Weight (Pounds): 218 General Appearance: lethargic EENT: normal ENT inspection Neck: normal alignment Cardiovascular: normal peripheral pulses, normal rate, regular rhythm Respiratory/Chest: chest wall non-tender, lungs clear, normal breath sounds Abdomen: normal bowel sounds, non tender, soft Extremities: normal inspection Edema: no edema noted Arm (L), no edema noted Arm (R), no edema noted Leg (L), no edema noted Leg (R), no edema noted Pedal (L), no edema noted Pedal (R), no edema noted Generalized Neurologic: motor weakness Skin: normal pigmentation, warm/dry Assessment/Plan Problem List: (1) SOB (shortness of breath) ICD Codes: R06.02 - Shortness of breath SNOMED: 501684983 (2) UTI (urinary tract infection) ICD Codes: N39.0 - Urinary tract infection, site not specified SNOMED: 91496827 (3) Pneumonia ICD Codes: J18.9 - Pneumonia, unspecified organism SNOMED: 815007286 (4) Acute respiratory failure ICD Codes: J96.00 - Acute respiratory failure, unspecified whether with hypoxia or hypercapnia SNOMED: 06024620 (5) History of hypertension ICD Codes: Z86.79 - Personal history of other diseases of the circulatory system SNOMED: 127087060 (6) Diabetes mellitus ICD Codes: E11.9 - Type 2 diabetes mellitus without complications SNOMED: 86192363 (7) Renal failure (ARF), acute on chronic ICD Codes: N17.9 - Acute kidney failure, unspecified; N18.9 - Chronic kidney disease, unspecified SNOMED: 787885714 (8) CHF (congestive heart failure) ICD Codes: I50.9 - Heart failure, unspecified SNOMED: 83414621, 595596901 Status: unchanged Assessment/Plan: o2 pulm tx abx pt diet cbc bmp am Dyllan King DO Sep 01, 2020 09:47
[2020-09-01] MEDS: Ceftaroline 200 MG in NS 55 ML IV SCH ×2 (10:12→21:13)
[2020-09-01] MEDS ORDERED: Iron Sucrose 200 MG in NS 110 ML IVPB ONE (11:00)
--- NOTE | 2020-09-01 11:07 | Pulmonology Progress Note ---
Subjective Constitutional: Reports: no symptoms HEENT: Repors: no symptoms Respiratory: Reports: no symptoms Allergies: Coded Allergies: No Known Allergies (Unverified , 10/10/19) All Systems: reviewed and negative except above Objective Last 24 Hour Vital Signs Date Time Temp Pulse Resp B/P (MAP) Pulse Ox O2 Delivery O2 Flow Rate FiO2 09/01/20 08:00 96.1 68 20 109/62 (78) 98 09/01/20 06:45 98 Nasal Cannula 2.0 28 09/01/20 05:53 125/51 09/01/20 04:00 96.8 73 20 118/55 (76) 99 09/01/20 04:00 72 09/01/20 00:00 97.9 68 20 115/58 (77) 98 09/01/20 00:00 68 08/31/20 22:00 102/75 08/31/20 21:00 Nasal Cannula 2.0 08/31/20 20:00 74 08/31/20 20:00 97.9 74 20 102/75 (84) 100 08/31/20 19:15 98 Nasal Cannula 2.0 28 08/31/20 16:00 98.1 76 20 153/89 (110) 100 08/31/20 16:00 72 08/31/20 13:29 131/63 08/31/20 12:00 75 08/31/20 12:00 98.0 75 20 131/63 (85) 100 Intake and Output 08/31/20 09/01/20 19:00 07:00 Intake Total 324 ml Output Total 300 ml 300 ml Balance 24 ml -300 ml Intake Oral 324 ml Output Urine Total 300 ml 300 ml # Voids 1 # Bowel Movements 1 1 General Appearance: WD/WN HEENT: normocephalic, atraumatic Respiratory: chest wall non-tender, lungs clear Breasts: no masses Cardiovascular: normal peripheral pulses Abdomen: normal bowel sounds, soft, non tender Genitourinary: normal external genitalia Extremities: no clubbing Neurologic: avaya engineer II-XII grossly normal Microbiology Date/Time Source Procedure Growth Status 08/31/20 15:32 Nasopharynx SARS-CoV-2 RdRp Gene Assay - Final Complete 08/30/20 18:10 Nasopharynx SARS-CoV-2 RdRp Gene Assay - Final Complete Laboratory Tests 08/31/20 11:47: POC Whole Blood Glucose 90 08/31/20 16:33: POC Whole Blood Glucose 139H 08/31/20 20:35: POC Whole Blood Glucose [Pending] 09/01/20 05:50: POC Whole Blood Glucose 219H 09/01/20 06:10: White Blood Count 17.6H, Red Blood Count 2.94L, Hemoglobin 8.5L, Hematocrit 28.5L, Mean Corpuscular Volume 97, Mean Corpuscular Hemoglobin 28.7, Mean Corpuscular Hemoglobin Concent 29.6L, Red Cell Distribution Width 17.0H, Platelet Count 125L, Mean Platelet Volume 7.6, Neutrophils (%) (Auto) , Lymphocytes (%) (Auto) , Monocytes (%) (Auto) , Eosinophils (%) (Auto) , Basophils (%) (Auto) , Differential Total Cells Counted 100, Neutrophils % (Manual) 91H, Lymphocytes % (Manual) 1L, Monocytes % (Manual) 4, Eosinophils % (Manual) 1, Basophils % (Manual) 0, Band Neutrophils 3, Platelet Estimate Decr easedL, Platelet Morphology Normal, Hypochromasia 1+, Anisocytosis 1+, D-Dimer 3.13H, Sodium Level 139, Potassium Level 5.4H, Chloride Level 108H, Carbon Dioxide Level 22, Anion Gap 9, Blood Urea Nitrogen 72H, Creatinine 3.5H, Estimat Glomerular Filtration Rate 13.0, Glucose Level 219#H, Hemoglobin A1c 7.4H, Uric Acid 9.5H, Calcium Level 7.7L, Phosphorus Level 5.2H, Magnesium Level 2.4, Iron Level 13L, Total Iron Binding Capacity 276, Percent Iron Saturation 5L, Unsaturated Iron Binding 263, Ferritin 145, Total Bilirubin 0.7, Gamma Glutamyl Transpeptidase 80, Aspartate Amino Transf (AST/SGOT) 21, Alanine Aminotransferase (ALT/SGPT) 14, Alkaline Phosphatase 161H, Lactate Dehydrogenase 226, Total Creatine Kinase 65, C-Reactive Protein, Quantitative 17.6H, Pro-B-Type Natriuretic Peptide 05514E, Total Protein 6.9, Albumin 2.3L, Globulin 4.6, Albumin/Globulin Ratio 0.5L, Triglycerides Level 60, Cholesterol Level 110, LDL Cholesterol 58, HDL Cholesterol 34L, Cholesterol/HDL Ratio 3.2L, Fernanda min B12 Level 751, Folate 5.9L, Thyroid Stimulating Hormone (TSH) 9.353H Current Medications Medications (Trade) Dose Ordered Sig/Braeden Route PRN Reason Start Time Stop Time Status Last Admin Dose Admin Acetaminophen (Tylenol) 650 mg Q4H PRN ORAL FEVER 08/30/20 23:45 09/29/20 23:44 Albuterol/ Ipratropium (Albuterol/ Ipratropium) 3 ml Q4H PRN HHN Shortness of Breath 08/30/20 23:45 09/04/20 23:44 Allopurinol (allopurinoL) 300 mg DAILY ORAL 08/31/20 09:00 09/30/20 08:59 09/01/20 08:27 Ceftaroline Fosamil 200 mg/ Sodium Chloride 55 ml @ 55 mls/hr EVERY 12 HOURS IV 08/31/20 20:00 09/07/20 19:59 09/01/20 10:12 Dexamethasone (Decadron) 4 mg DAILY ORAL 08/31/20 09:00 09/09/20 08:59 09/01/20 08:27 Dextrose (Dextrose 50%) 25 ml Q30M PRN IV Hypoglycemia 08/30/20 23:45 11/28/20 23:44 Dextrose (Dextrose 50%) 50 ml Q30M PRN IV Hypoglycemia 08/30/20 23:45 11/28/20 23:44 Folic Acid (Folate) 3 mg DAILY ORAL 09/02/20 09:00 10/02/20 08:59 Furosemide (Lasix) 40 mg EVERY 12 HOURS IV 08/31/20 21:00 09/30/20 20:59 09/01/20 08:32 Gabapentin (Neurontin) 300 mg DAILY ORAL 08/31/20 09:00 09/30/20 08:59 09/01/20 08:27 Heparin Sodium (Porcine) (Heparin 5000 units/ml) 5,000 units EVERY 12 HOURS SUBQ 08/31/20 09:00 10/15/20 08:59 09/01/20 08:32 Hydralazine HCl (Apresoline) 50 mg Q8HR ORAL 08/31/20 00:00 11/29/20 00:00 09/01/20 05:53 Insulin Aspart (NovoLOG) BEFORE MEALS AND HS SUBQ 08/31/20 06:30 11/29/20 06:29 09/01/20 05:55 Iron Sucrose 200 mg/Sodium Chloride 120 ml @ 240 mls/hr ONCE ONCE IVPB 09/01/20 11:00 09/01/20 11:29 Levofloxacin 150 ml @ 100 mls/hr Q48H IVPB 08/31/20 18:00 09/07/20 17:59 08/31/20 18:11 Levothyroxine Sodium (Synthroid) 100 mcg DAILY@0630 ORAL 09/02/20 06:30 10/02/20 06:29 Metoclopramide HCl (Reglan) 5 mg THREE TIMES A DAY ORAL 08/31/20 13:00 09/30/20 12:59 09/01/20 08:27 Morphine Sulfate (Morphine Sulfate) 2 mg Q4H PRN IVP For Pain 09/01/20 02:50 09/08/20 02:59 09/01/20 03:04 Ondansetron HCl (Zofran) 4 mg Q6H PRN IVP Nausea & Vomiting 08/30/20 23:45 09/29/20 23:44 Pantoprazole (Protonix) 40 mg EVERY 12 HOURS ORAL 08/31/20 21:00 09/30/20 20:59 09/01/20 08:27 Polyethylene Glycol (Miralax) 17 gm DAILYPRN PRN ORAL Constipation 08/30/20 23:45 09/29/20 23:44 Promethazine HCl/ Codeine (Phenergan with Codeine) 5 ml Q6H PRN ORAL cough 08/30/20 23:45 09/29/20 23:44 Assessment/Plan Problems: (1) Acute on chronic diastolic (congestive) heart failure (2) Renal failure (ARF), acute on chronic (3) Diabetes mellitus (4) Left bundle branch block (LBBB) (5) Cardiac left ventricular ejection fraction greater than 40 percent (6) Grade I diastolic dysfunction (7) History of hypertension Assessment/Plan keep tele O2 titrate to keep sat > 92%, currently down to O2 via MS US of chest fup with CXR in a few days empiric abx fup with inflam markers DVT prophylaxis Tiana Cool MD Sep 01, 2020 11:07
[2020-09-01 12:00] VITALS: BP 126/76
--- NOTE | 2020-09-01 12:56 | Nephrology Progress Note ---
Assessment/Plan Problem List: (1) Renal failure (ARF), acute on chronic (2) Hyperkalemia (3) Hypothyroidism (4) Acute on chronic diastolic (congestive) heart failure (5) Diabetic nephropathy (6) Anemia Assessment 1) Renal failure (ARF), acute on chronic (2) Diabetes mellitus (3) Hypoglycemia (4) Hyperkalemia (5) Diabetic nephropathy (6) H/o Pleural effusion (7) Morbid obesity (8) Low Iron Anemia (9) HypoThyroidism Plan Chan Cath 24 H CrCl and total protein ordered Off IV fluids, on IV Lasix Adjust BP meds Previous 2D echocardiogram ejection fraction is reported to 50% Previous Kidney ultrasound noted. Current kidney ultrasound results below Anemia work-up As needed Kayexalate for high potassium Keep blood pressure and blood sugar in check Monitor renal parameters Requires HD treatment [facility] KIDNEY IMPRESSION: 1. Ascites. 2. Bilateral pleural effusions. 3. Complex right renal cysts of uncertain etiology. This complex cyst is unchanged from the study of 01/12/2020. 4. Mildly atrophic right kidney. 5. Magnetic resonance imaging of the abdomen with gadolinium administration is advised for further evaluation of complex right renal cyst. Subjective ROS Limited/Unobtainable: No Constitutional: Reports: malaise, weakness Objective Objective Last 24 Hour Vital Signs Date Time Temp Pulse Resp B/P (MAP) Pulse Ox O2 Delivery O2 Flow Rate FiO2 09/01/20 12:00 71 09/01/20 12:00 96.6 72 18 126/76 (93) 100 09/01/20 09:00 Nasal Cannula 2.0 09/01/20 08:00 96.1 68 20 109/62 (78) 98 09/01/20 08:00 67 09/01/20 06:45 98 Nasal Cannula 2.0 28 09/01/20 05:53 125/51 09/01/20 04:00 96.8 73 20 118/55 (76) 99 09/01/20 04:00 72 09/01/20 00:00 97.9 68 20 115/58 (77) 98 09/01/20 00:00 68 08/31/20 22:00 102/75 08/31/20 21:00 Nasal Cannula 2.0 08/31/20 20:00 74 08/31/20 20:00 97.9 74 20 102/75 (84) 100 08/31/20 19:15 98 Nasal Cannula 2.0 28 08/31/20 16:00 98.1 76 20 153/89 (110) 100 08/31/20 16:00 72 08/31/20 13:29 131/63 Intake and Output 08/31/20 09/01/20 19:00 07:00 Intake Total 324 ml Output Total 300 ml 300 ml Balance 24 ml -300 ml Intake Oral 324 ml Output Urine Total 300 ml 300 ml # Voids 1 # Bowel Movements 1 1 Current Medications Medications (Trade) Dose Ordered Sig/Braeden Route PRN Reason Start Time Stop Time Status Last Admin Dose Admin Acetaminophen (Tylenol) 650 mg Q4H PRN ORAL FEVER 08/30/20 23:45 09/29/20 23:44 Albuterol/ Ipratropium (Albuterol/ Ipratropium) 3 ml Q4H PRN HHN Shortness of Breath 08/30/20 23:45 09/04/20 23:44 Allopurinol (allopurinoL) 300 mg DAILY ORAL 08/31/20 09:00 09/30/20 08:59 09/01/20 08:27 Ceftaroline Fosamil 200 mg/ Sodium Chloride 55 ml @ 55 mls/hr EVERY 12 HOURS IV 08/31/20 20:00 09/07/20 19:59 09/01/20 10:12 Dexamethasone (Decadron) 4 mg DAILY ORAL 08/31/20 09:00 09/09/20 08:59 09/01/20 08:27 Dextrose (Dextrose 50%) 25 ml Q30M PRN IV Hypoglycemia 08/30/20 23:45 11/28/20 23:44 Dextrose (Dextrose 50%) 50 ml Q30M PRN IV Hypoglycemia 08/30/20 23:45 11/28/20 23:44 Folic Acid (Folate) 3 mg DAILY ORAL 09/02/20 09:00 10/02/20 08:59 Furosemide (Lasix) 40 mg EVERY 12 HOURS IV 08/31/20 21:00 09/30/20 20:59 09/01/20 08:32 Gabapentin (Neurontin) 300 mg DAILY ORAL 08/31/20 09:00 09/30/20 08:59 09/01/20 08:27 Heparin Sodium (Porcine) (Heparin 5000 units/ml) 5,000 units EVERY 12 HOURS SUBQ 08/31/20 09:00 10/15/20 08:59 09/01/20 08:32 Hydralazine HCl (Apresoline) 50 mg Q8HR ORAL 08/31/20 00:00 11/29/20 00:00 09/01/20 05:53 Insulin Aspart (NovoLOG) BEFORE MEALS AND HS SUBQ 08/31/20 06:30 11/29/20 06:29 09/01/20 11:53 Levofloxacin 150 ml @ 100 mls/hr Q48H IVPB 08/31/20 18:00 09/07/20 17:59 08/31/20 18:11 Levothyroxine Sodium (Synthroid) 100 mcg DAILY@0630 ORAL 09/02/20 06:30 10/02/20 06:29 Metoclopramide HCl (Reglan) 5 mg THREE TIMES A DAY ORAL 08/31/20 13:00 09/30/20 12:59 09/01/20 08:27 Morphine Sulfate (Morphine Sulfate) 2 mg Q4H PRN IVP For Pain 09/01/20 02:50 09/08/20 02:59 09/01/20 03:04 Ondansetron HCl (Zofran) 4 mg Q6H PRN IVP Nausea & Vomiting 08/30/20 23:45 09/29/20 23:44 Pantoprazole (Protonix) 40 mg EVERY 12 HOURS ORAL 08/31/20 21:00 09/30/20 20:59 09/01/20 08:27 Polyethylene Glycol (Miralax) 17 gm DAILYPRN PRN ORAL Constipation 08/30/20 23:45 09/29/20 23:44 Promethazine HCl/ Codeine (Phenergan with Codeine) 5 ml Q6H PRN ORAL cough 08/30/20 23:45 09/29/20 23:44 Laboratory Tests 08/31/20 16:33: POC Whole Blood Glucose 139H 08/31/20 20:35: POC Whole Blood Glucose [Pending] 09/01/20 05:50: POC Whole Blood Glucose 219H 09/01/20 06:10: White Blood Count 17.6H, Red Blood Count 2.94L, Hemoglobin 8.5L, Hematocrit 28.5L, Mean Corpuscular Volume 97, Mean Corpuscular Hemoglobin 28.7, Mean Corpuscular Hemoglobin Concent 29.6L, Red Cell Distribution Width 17.0H, Platelet Count 125L, Mean Platelet Volume 7.6, Neutrophils (%) (Auto) , Lymphocytes (%) (Auto) , Monocytes (%) (Auto) , Eosinophils (%) (Auto) , Basophils (%) (Auto) , Differential Total Cells Counted 100, Neutrophils % (Manual) 91H, Lymphocytes % (Manual) 1L, Monocytes % (Manual) 4, Eosinophils % (Manual) 1, Basophils % (Manual) 0, Band Neutrophils 3, Platelet Estimate DecreasedL, Platelet Morphology Normal, Hypochromasia 1+, Anisocytosis 1+, D- Dimer 3.13H, Sodium Level 139, Potassium Level 5.4H, Chloride Level 108H, Carbon Dioxide Level 22, Anion Gap 9, Blood Urea Nitrogen 72H, Creatinine 3.5H, Estimat Glomerular Filtration Rate 13.0, Glucose Level 219#H, Hemoglobin A1c 7.4H, Uric Acid 9.5H, Calcium Level 7.7L, Phosphorus Level 5.2H, Magnesium Level 2.4, Iron Level 13L, Total Iron Binding Capacity 276, Percent Iron Saturation 5L, Unsaturated Iron Binding 263, Ferritin 145, Total Bilirubin 0.7, Gamma Glutamyl Transpeptidase 80, Aspartate Amino Transf (AST/SGOT) 21, Alanine Aminotransferase (ALT/SGPT) 14, Alkaline Phosphatase 161H, Lactate Dehydrogenase 226, Total Creatine Kinase 65, C-Reactive Protein, Quantitative 17.6H, Pro-B-Type Natriuretic Peptide 72628C, Total Protein 6.9, Albumin 2.3L, Globulin 4.6, Albumin/Globulin Ratio 0.5L, Triglycerides Level 60, Cholesterol Level 110, LDL Cholesterol 58, HDL Cholesterol 34L, Cholesterol/HDL Ratio 3.2L, Vitamin B12 Level 751, Folate 5.9L, Thyroid Stimulating Hormone (TSH) 9.353H 09/01/20 11:50: POC Whole Blood Glucose 308H Height (Feet): 5 Height (Inches): 10.00 Weight (Pounds): 218 General Appearance: lethargic Cardiovascular: normal rate Respiratory/Chest: decreased breath sounds Abdomen: distended Jay Severino MD Sep 01, 2020 12:56
[2020-09-01 13:10] LABS: CREATININE 3.5 MG/DL (0.55-1.30)
--- NOTE | 2020-09-01 13:45 | Consultation ---
History of Present Illness General Date patient seen: Sep 01, 2020 Chief Complaint: Dyspnea/Respdistress Referring physician: dr King Present Illness HPI 70 y/o F with hx of HTN, dCHF, pHTN, ascites, chronic LE edema, DM2 c/w neuropathy, CKD, iron def anemia, recent COVID19 (dx'ed 08/25/20) presented to ED on 08/30/20 with worsening SOB, b/l LE edema. Upon arrival of EMS, was saturating 87% at RA Denied f/c, chest pain, n/v Allergies: Coded Allergies: No Known Allergies (Unverified , 10/10/19) Medication History Scheduled Albuterol Sulfate (Ventolin Hfa), 2 PUFFS INH EVERY 6 HOURS, (Reported) Allopurinol* (Allopurinol*), 300 MG ORAL DAILY Amlodipine Besylate* (Amlodipine Besylate*), 5 MG ORAL DAILY, (Reported) Atorvastatin (Lipitor), 80 MG ORAL DAILY, (Reported) Atorvastatin Calcium* (Atorvastatin Calcium*), Unknown Dose ORAL BEDTIME, (Reported) Docusate Sodium (Docusate Sodium), 100 MG ORAL DAILY, (Reported) Gabapentin* (Gabapentin*), 300 MG ORAL DAILY, (Reported) Hydralazine HCl (Hydralazine HCl), 50 MG ORAL Q8HR Levothyroxine Sodium* (Synthroid*), 75 MCG ORAL DAILY, (Reported) Metolazone (Metolazone), 5 MG ORAL DAILY Pantoprazole* (Pantoprazole*), 40 MG ORAL EVERY 12 HOURS, (Reported) Miscellaneous Medications Acetaminophen (Mapap), 500 MG PO, (Reported) Betamet Diprop/Prop Gly (Betamethasone Dp Aug 0.05% Crm), 15 GM TP, (Reported) Insulin Aspart (Novolog), 60, (Reported) Patient History Healthcare decision maker Resuscitation status Advanced Directive on File Patient History Narrative Pmhx: as above Shx: She lives at home. Does not smoke or drink alcohol. Fhx: non contributory Review of Systems All Other Systems: negative except mentioned in HPI Physical Exam Physical Exam Narrative GENERAL: Calm in bed, oriented x3, slight short of breath. CARDIOVASCULAR: No murmur. LUNGS: Poor exchange. ABDOMEN: Bowel sounds distant. EXTREMITIES: No cyanosis, clubbing, or edema. NEUROLOGIC: The patient moves all extremities, slightly weak. Last 24 Hour Vital Signs Date Time Temp Pulse Resp B/P (MAP) Pulse Ox O2 Delivery O2 Flow Rate FiO2 09/01/20 12:00 71 09/01/20 12:00 96.6 72 18 126/76 (93) 100 09/01/20 09:00 Nasal Cannula 2.0 09/01/20 08:00 96.1 68 20 109/62 (78) 98 09/01/20 08:00 67 09/01/20 06:45 98 Nasal Cannula 2.0 28 09/01/20 05:53 125/51 09/01/20 04:00 96.8 73 20 118/55 (76) 99 09/01/20 04:00 72 09/01/20 00:00 97.9 68 20 115/58 (77) 98 09/01/20 00:00 68 08/31/20 22:00 102/75 08/31/20 21:00 Nasal Cannula 2.0 08/31/20 20:00 74 08/31/20 20:00 97.9 74 20 102/75 (84) 100 08/31/20 19:15 98 Nasal Cannula 2.0 28 08/31/20 16:00 98.1 76 20 153/89 (110) 100 08/31/20 16:00 72 08/31/20 13:29 131/63 Intake and Output 08/31/20 09/01/20 19:00 07:00 Intake Total 324 ml Output Total 300 ml 300 ml Balance 24 ml -300 ml Intake Oral 324 ml Output Urine Total 300 ml 300 ml # Voids 1 # Bowel Movements 1 1 Laboratory Tests Test 08/31/20 16:33 08/31/20 20:35 09/01/20 05:50 09/01/20 06:10 POC Whole Blood Glucose 139 MG/DL (74-106) H Pending 219 MG/DL (74-106) H White Blood Count 17.6 K/UL (4.8-10.8) H Red Blood Count 2.94 M/UL (4.20-5.40) L Hemoglobin 8.5 G/DL (12.0-16.0) L Hematocrit 28.5 % (37.0-47.0) L Mean Corpuscular Volume 97 FL (80-99) Mean Corpuscular Hemoglobin 28.7 PG (27.0-31.0) Mean Corpuscular Hemoglobin Concent 29.6 G/DL (32.0-36.0) L Red Cell Distribution Width 17.0 % (11.6-14.8) H Platelet Count 125 K/UL (150-450) L Mean Platelet Volume 7.6 FL (6.5-10.1) Neutrophils (%) (Auto) % (45.0-75.0) Lymphocytes (%) (Auto) % (20.0-45.0) Monocytes (%) (Auto) % (1.0-10.0) Eosinophils (%) (Auto) % (0.0-3.0) Basophils (%) (Auto) % (0.0-2.0) Differential Total Cells Counted 100 Neutrophils % (Manual) 91 % (45-75) H Lymphocytes % (Manual) 1 % (20-45) L Monocytes % (Manual) 4 % (1-10) Eosinophils % (Manual) 1 % (0-3) Basophils % (Manual) 0 % (0-2) Band Neutrophils 3 % (0-8) Platelet Estimate Decreased L Platelet Morphology Normal Hypochromasia 1+ Anisocytosis 1+ D-Dimer 3.13 mg/L FEU (0.00-0.49) H Sodium Level 139 MMOL/L (136-145) Potassium Level 5.4 MMOL/L (3.5-5.1) H Chloride Level 108 MMOL/L (98-107) H Carbon Dioxide Level 22 MMOL/L (21-32) Anion Gap 9 mmol/L (5-15) Blood Urea Nitrogen 72 mg/dL (7-18) H Creatinine 3.5 MG/DL (0.55-1.30) H Estimat Glomerular Filtration Rate 13.0 mL/min (>60) Glucose Level 219 MG/DL (74-106) #H Hemoglobin A1c 7.4 % (4.3-6.0) H Uric Acid 9.5 MG/DL (2.6-7.2) H Calcium Level 7.7 MG/DL (8.5-10.1) L Phosphorus Level 5.2 MG/DL (2.5-4.9) H Magnesium Level 2.4 MG/DL (1.8-2.4) Iron Level 13 ug/dL (50-175) L Total Iron Binding Capacity 276 ug/dL (250-450) Percent Iron Saturation 5 % (15-50) L Unsaturated Iron Binding 263 ug/dL (112-346) Ferritin 145 NG/ML (8-388) Total Bilirubin 0.7 MG/DL (0.2-1.0) Gamma Glutamyl Transpeptidase 80 U/L (5-85) Aspartate Amino Transf (AST/SGOT) 21 U/L (15-37) Alanine Aminotransferase (ALT/SGPT) 14 U/L (12-78) Alkaline Phosphatase 161 U/L (46-116) H Lactate Dehydrogenase 226 U/L (81-234) Total Creatine Kinase 65 U/L (26-308) C-Reactive Protein, Quantitative 17.6 mg/dL (0.00-0.90) H Pro-B-Type Natriuretic Peptide 38904 pg/mL (0-125) H Total Protein 6.9 G/DL (6.4-8.2) Albumin 2.3 G/DL (3.4-5.0) L Globulin 4.6 g/dL Albumin/Globulin Ratio 0.5 (1.0-2.7) L Triglycerides Level 60 MG/DL (30-150) Cholesterol Level 110 MG/DL (< 200) LDL Cholesterol 58 mg/dL (<100) HDL Cholesterol 34 MG/DL (40-60) L Cholesterol/HDL Ratio 3.2 (3.3-4.4) L Vitamin B12 Level 751 PG/ML (193-986) Folate 5.9 NG/ML (8.6-58.9) L Thyroid Stimulating Hormone (TSH) 9.353 uiU/mL (0.358-3.740) Test 09/01/20 11:50 POC Whole Blood Glucose 308 MG/DL (74-106) H Microbiology Date/Time Source Procedure Growth Status 08/31/20 15:32 Nasopharynx SARS-CoV-2 RdRp Gene Assay - Final Complete Height (Feet): 5 Height (Inches): 10.00 Weight (Pounds): 218 Medications Current Medications Medications (Trade) Dose Ordered Sig/Bra[place] Route PRN Reason Start Time Stop Time Status Last Admin Dose Admin Acetaminophen (Tylenol) 650 mg Q4H PRN ORAL FEVER 08/30/20 23:45 09/29/20 23:44 Albuterol/ Ipratropium (Albuterol/ Ipratropium) 3 ml Q4H PRN HHN Shortness of Breath 08/30/20 23:45 09/04/20 23:44 Allopurinol (allopurinoL) 300 mg DAILY ORAL 08/31/20 09:00 09/30/20 08:59 09/01/20 08:27 Ceftaroline Fosamil 200 mg/ Sodium Chloride 55 ml @ 55 mls/hr EVERY 12 HOURS IV 08/31/20 20:00 09/07/20 19:59 09/01/20 10:12 Dexamethasone (Decadron) 4 mg DAILY ORAL 08/31/20 09:00 09/09/20 08:59 09/01/20 08:27 Dextrose (Dextrose 50%) 25 ml Q30M PRN IV Hypoglycemia 08/30/20 23:45 11/28/20 23:44 Dextrose (Dextrose 50%) 50 ml Q30M PRN IV Hypoglycemia 08/30/20 23:45 11/28/20 23:44 Folic Acid (Folate) 3 mg DAILY ORAL 09/02/20 09:00 10/02/20 08:59 Furosemide (Lasix) 40 mg EVERY 12 HOURS IV 08/31/20 21:00 09/30/20 20:59 09/01/20 08:32 Gabapentin (Neurontin) 300 mg DAILY ORAL 08/31/20 09:00 09/30/20 08:59 09/01/20 08:27 Heparin Sodium (Porcine) (Heparin 5000 units/ml) 5,000 units EVERY 12 HOURS SUBQ 08/31/20 09:00 10/15/20 08:59 09/01/20 08:32 Hydralazine HCl (Apresoline) 50 mg Q8HR ORAL 08/31/20 00:00 11/29/20 00:00 09/01/20 05:53 Insulin Aspart (NovoLOG) BEFORE MEALS AND HS SUBQ 08/31/20 06:30 11/29/20 06:29 09/01/20 11:53 Levofloxacin 150 ml @ 100 mls/hr Q48H IVPB 08/31/20 18:00 09/07/20 17:59 08/31/20 18:11 Levothyroxine Sodium (Synthroid) 100 mcg DAILY@0630 ORAL 09/02/20 06:30 10/02/20 06:29 Metoclopramide HCl (Reglan) 5 mg THREE TIMES A DAY ORAL 08/31/20 13:00 09/30/20 12:59 09/01/20 08:27 Morphine Sulfate (Morphine Sulfate) 2 mg Q4H PRN IVP For Pain 09/01/20 02:50 09/08/20 02:59 09/01/20 03:04 Ondansetron HCl (Zofran) 4 mg Q6H PRN IVP Nausea & Vomiting 08/30/20 23:45 09/29/20 23:44 Pantoprazole (Protonix) 40 mg EVERY 12 HOURS ORAL 08/31/20 21:00 09/30/20 20:59 09/01/20 08:27 Polyethylene Glycol (Miralax) 17 gm DAILYPRN PRN ORAL Constipation 08/30/20 23:45 09/29/20 23:44 Promethazine HCl/ Codeine (Phenergan with Codeine) 5 ml Q6H PRN ORAL cough 08/30/20 23:45 09/29/20 23:44 Assessment/Plan Assessment/Plan: Abx: Levaquin 08/31- Teflaro 08/31- Ceftriaxone Azithromycin Assessment: Severe Sepsis COVID19 Pneumonia- suspect bacterial superinfection- per report initial positive 08/25- here has 2 neg repeat test but given patient is still symptomatic and less than 10 days from diagnosis, needs to continue isolation Acute hypoxic resp failure- on 2l NC -08/30 CXR: There is again patchy ill-defined airspace opacities at the right greater than left base with some consolidated appearance again seen on the right. There is now patchy ill-defined opacity at the right upper lung. A small right pleural effusion is suggested. The patient is rotated to the right. Status post median sternotomy again noted. -08/30 & rapid covid PCR neg x2 Ro probable bacteremia -08/30 Bcx p Afebrile Leukocytosis, improving -08/31 u/a no pyuria R arm and R leg cellulitis VENANCIO on CKD -REnal US: Ascites. Bilateral pleural effusions. Complex right renal cysts of uncertain etiology. This complex cyst is unchanged from the study of 01/12/2020. Mildly atrophic right kidney.Magnetic resonance imaging of the abdomen with gadolinium administration is advised for further evaluation of complex right renal cyst. HTN dCHF pHTN ascites chronic LE edema DM2 c/w neuropathy iron def anemia Plan: -Continue empiric Teflaro and LEvaquin #2 (abx d #3) -f/u cx -Monitor CBC/CMP, temperatures -influenza screen -aspiration precautions -REnal f.u -resume COVID19 isolation -if urgent HD, then recommend placement of temporary catheter as still has significant leukocytosis and while awaiting Blood culture results Thank you for consulting [facility]. Will continue to follow along with you. Discussed with RN and Dr Treviño. Marielena Etienne M.D. Sep 01, 2020 13:44
--- NOTE | 2020-09-01 14:13 | Cardiac Electrophysiology PN ---
Assessment/Plan Assessment/Plan 1. Volume overload, likely due to renal failure as creatinine is 3.5. The echocardiogram showed ejection fraction of 50%. Off Amlodipine. On IV Lasix. Discussed with Dr. Severino. Likely needs HD 2. Left bundle-branch block. 3. Diastolic dysfunction. Ejection fraction of 50%. 4. Hyperkalemia. The patient got Kayexalate for the potassium. Further evaluation by Dr. Severino. 5. Diabetic nephropathy. 6. Renal failure.Likely needs HD. Consent for Ubaldo pending 7. Hypothyroidism. 8. Iron-deficiency anemia. Subjective Subjective Still in SOB despite iv Lasix. 24 hour urine pending. Awaiting consent for Ubaldo catheter placement Objective Last 24 Hour Vital Signs Date Time Temp Pulse Resp B/P (MAP) Pulse Ox O2 Delivery O2 Flow Rate FiO2 09/01/20 12:00 71 09/01/20 12:00 96.6 72 18 126/76 (93) 100 09/01/20 09:00 Nasal Cannula 2.0 09/01/20 08:00 96.1 68 20 109/62 (78) 98 09/01/20 08:00 67 09/01/20 06:45 98 Nasal Cannula 2.0 28 09/01/20 05:53 125/51 09/01/20 04:00 96.8 73 20 118/55 (76) 99 09/01/20 04:00 72 09/01/20 00:00 97.9 68 20 115/58 (77) 98 09/01/20 00:00 68 08/31/20 22:00 102/75 08/31/20 21:00 Nasal Cannula 2.0 08/31/20 20:00 74 08/31/20 20:00 97.9 74 20 102/75 (84) 100 08/31/20 19:15 98 Nasal Cannula 2.0 28 08/31/20 16:00 98.1 76 20 153/89 (110) 100 08/31/20 16:00 72 Intake and Output 08/31/20 09/01/20 19:00 07:00 Intake Total 324 ml Output Total 300 ml 300 ml Balance 24 ml -300 ml Intake Oral 324 ml Output Urine Total 300 ml 300 ml # Voids 1 # Bowel Movements 1 1 Laboratory Tests Test 08/31/20 16:33 08/31/20 20:35 09/01/20 05:50 09/01/20 06:10 POC Whole Blood Glucose 139 MG/DL (74-106) H Pending 219 MG/DL (74-106) H White Blood Count 17.6 K/UL (4.8-10.8) H Red Blood Count 2.94 M/UL (4.20-5.40) L Hemoglobin 8.5 G/DL (12.0-16.0) L Hematocrit 28.5 % (37.0-47.0) L Mean Corpuscular Volume 97 FL (80-99) Mean Corpuscular Hemoglobin 28.7 PG (27.0-31.0) Mean Corpuscular Hemoglobin Concent 29.6 G/DL (32.0-36.0) L Red Cell Distribution Width 17.0 % (11.6-14.8) H Platelet Count 125 K/UL (150-450) L Mean Platelet Volume 7.6 FL (6.5-10.1) Neutrophils (%) (Auto) % (45.0-75.0) Lymphocytes (%) (Auto) % (20.0-45.0) Monocytes (%) (Auto) % (1.0-10.0) Eosinophils (%) (Auto) % (0.0-3.0) Basophils (%) (Auto) % (0.0-2.0) Differential Total Cells Counted 100 Neutrophils % (Manual) 91 % (45-75) H Lymphocytes % (Manual) 1 % (20-45) L Monocytes % (Manual) 4 % (1-10) Eosinophils % (Manual) 1 % (0-3) Basophils % (Manual) 0 % (0-2) Band Neutrophils 3 % (0-8) Platelet Estimate Decreased L Platelet Morphology Normal Hypochromasia 1+ Anisocytosis 1+ D-Dimer 3.13 mg/L FEU (0.00-0.49) H Sodium Level 139 MMOL/L (136-145) Potassium Level 5.4 MMOL/L (3.5-5.1) H Chloride Level 108 MMOL/L (98-107) H Carbon Dioxide Level 22 MMOL/L (21-32) Anion Gap 9 mmol/L (5-15) Blood Urea Nitrogen 72 mg/dL (7-18) H Creatinine 3.5 MG/DL (0.55-1.30) H Estimat Glomerular Filtration Rate 13.0 mL/min (>60) Glucose Level 219 MG/DL (74-106) #H Hemoglobin A1c 7.4 % (4.3-6.0) H Uric Acid 9.5 MG/DL (2.6-7.2) H Calcium Level 7.7 MG/DL (8.5-10.1) L Phosphorus Level 5.2 MG/DL (2.5-4.9) H Magnesium Level 2.4 MG/DL (1.8-2.4) Iron Level 13 ug/dL (50-175) L Total Iron Binding Capacity 276 ug/dL (250-450) Percent Iron Saturation 5 % (15-50) L Unsaturated Iron Binding 263 ug/dL (112-346) Ferritin 145 NG/ML (8-388) Total Bilirubin 0.7 MG/DL (0.2-1.0) Gamma Glutamyl Transpeptidase 80 U/L (5-85) Aspartate Amino Transf (AST/SGOT) 21 U/L (15-37) Alanine Aminotransferase (ALT/SGPT) 14 U/L (12-78) Alkaline Phosphatase 161 U/L (46-116) H Lactate Dehydrogenase 226 U/L (81-234) Total Creatine Kinase 65 U/L (26-308) C-Reactive Protein, Quantitative 17.6 mg/dL (0.00-0.90) H Pro-B-Type Natriuretic Peptide 26707 pg/mL (0-125) H Total Protein 6.9 G/DL (6.4-8.2) Albumin 2.3 G/DL (3.4-5.0) L Globulin 4.6 g/dL Albumin/Globulin Ratio 0.5 (1.0-2.7) L Triglycerides Level 60 MG/DL (30-150) Cholesterol Level 110 MG/DL (< 200) LDL Cholesterol 58 mg/dL (<100) HDL Cholesterol 34 MG/DL (40-60) L Cholesterol/HDL Ratio 3.2 (3.3-4.4) L Vitamin B12 Level 751 PG/ML (193-986) Folate 5.9 NG/ML (8.6-58.9) L Thyroid Stimulating Hormone (TSH) 9.353 uiU/mL (0.358-3.740) Test 09/01/20 11:50 POC Whole Blood Glucose 308 MG/DL (74-106) H Microbiology Date/Time Source Procedure Growth Status 08/31/20 15:32 Nasopharynx SARS-CoV-2 RdRp Gene Assay - Final Complete 08/30/20 18:10 Nasopharynx SARS-CoV-2 RdRp Gene Assay - Final Complete Objective HEAD AND NECK: No JVD. LUNGS: Coarse rhonchi, bibasilar rales. CARDIOVASCULAR: Regular S1 and S2 with no gallop. ABDOMEN: Soft. EXTREMITIES: Bilateral 2+ pitting edema. Sina Paulson MD Sep 01, 2020 14:13
[2020-09-01 16:00] VITALS: BP_SYST 126; BP_SYST 170; BP_DIAS 76; BP_DIAS 89
--- NOTE | 2020-09-01 17:49 | Diagnostic Imaging Report ---
Indication: Pleural effusion, shortness of breath Technique: Grayscale images of the bilateral hemithoraces Comparison: none Findings: Pleural effusion is demonstrated on the right. No pleural fluid seen on the left. There is ascites noted in the left upper quadrant of the abdomen. Impression: Positive for right pleural effusion Incidental finding of ascites, also previously reported
[2020-09-01 20:00] VITALS: BP 133/56
[2020-09-02] VITALS: BP 123/76
[2020-09-02 04:00] VITALS: BP 131/88
[2020-09-02] MEDS: HydrALAZINE 50mg tab ORAL SCH (06:17)
[2020-09-02] MEDS: NovoLOG Insulin Flexpen SUBQ SCH ×4 (06:18→22:10)
[2020-09-02 07:41] LABS: HEMATOCRIT 29.6 % (37.0-47.0); HEMOGLOBIN 8.8 G/DL (12.0-16.0); MEAN CORPUSCULAR VOLUME 97 FL (80-99); PLATELET COUNT 146 K/UL (150-450); RED BLOOD COUNT 3.06 M/UL (4.20-5.40); WHITE BLOOD COUNT 16.7 K/UL (4.8-10.8)
[2020-09-02 07:50] LABS: PHOSPHORUS 5.7 MG/DL (2.5-4.9)
[2020-09-02 07:54] LABS: ALBUMIN 2.6 G/DL (3.4-5.0); ALBUMIN/GLOBULIN RATIO 0.5 (1.0-2.7); BILIRUBIN,TOTAL 0.7 MG/DL (0.2-1.0); CALCIUM 8.1 MG/DL (8.5-10.1); CREATININE 3.8 MG/DL (0.55-1.30); POTASSIUM 4.6 MMOL/L (3.5-5.1)
[2020-09-02 08:00] VITALS: BP 142/75
[2020-09-02] MEDS: Heparin 5000 units/ml inj SUBQ SCH ×2 (09:00→21:00)
[2020-09-02] MEDS: Ceftaroline 200 MG in NS 55 ML IV SCH ×2 (09:09→21:14)
--- NOTE | 2020-09-02 09:58 | Diagnostic Imaging Report ---
EXAM: US Duplex Bilateral Lower Extremities Veins CLINICAL HISTORY: SOB TECHNIQUE: Real-time duplex ultrasound scan of the bilateral lower extremity veins integrating B-mode two-dimensional vascular structure, Doppler spectral analysis, color flow Doppler imaging and compression. COMPARISON: Ultrasound 01/12/20 FINDINGS: Right deep veins: Unremarkable. No DVT in the right common femoral, femoral, proximal deep femoral or popliteal veins. The veins demonstrate normal color flow, are normally compressible, with normal phasic flow and/or augmentation response. Right superficial veins: Unremarkable. No thrombus in the visualized right great saphenous vein. Left deep veins: Unremarkable. No DVT in the left common femoral, femoral, proximal deep femoral or popliteal veins. The veins demonstrate normal color flow, are normally compressible, with normal phasic flow and/or augmentation response. Left superficial veins: Unremarkable. No thrombus in the visualized left great saphenous vein. Soft tissues: No acute findings. No popliteal cyst. IMPRESSION: Normal bilateral lower extremity duplex venous ultrasound.
--- NOTE | 2020-09-02 11:23 | Cardiac Electrophysiology PN ---
Assessment/Plan Assessment/Plan 1. Volume overload, likely due to renal failure as creatinine is 3.5. The echocardiogram showed ejection fraction of 50%. Off Amlodipine. On IV Lasix. Discussed with Dr. Severino. Ubaldo catheter pending for HD 2. Left bundle-branch block. 3. Diastolic dysfunction. Ejection fraction of 50%. 4. Hyperkalemia. Got Kayexalate by Dr. Severino. 5. Diabetic nephropathy. 6. Renal failure. BUN/Cr 81/3.8 Likely needs HD. Consent for Ubaldo pending 7. Hypothyroidism. 8. Iron-deficiency anemia. Subjective Subjective Still in SOB despite iv Lasix. 24 hour urine pending. Ubaldo catheter placement scheduled for tomorrow Objective Last 24 Hour Vital Signs Date Time Temp Pulse Resp B/P (MAP) Pulse Ox O2 Delivery O2 Flow Rate FiO2 09/02/20 09:00 Nasal Cannula 2.0 Nasal Cannula 2.0 09/02/20 08:00 96.9 75 20 142/75 (97) 98 09/02/20 08:00 75 09/02/20 06:17 141/67 09/02/20 04:00 97.3 71 19 131/88 (102) 98 09/02/20 04:00 72 09/02/20 00:00 96.2 72 20 123/76 (92) 98 09/02/20 00:00 72 09/01/20 21:14 133/56 09/01/20 21:00 Nasal Cannula 2.0 Nasal Cannula 2.0 09/01/20 20:08 75 18 99 Nasal Cannula 2.0 28 09/01/20 20:08 99 Nasal Cannula 2.0 28 09/01/20 20:00 96.4 77 20 133/56 (81) 100 09/01/20 20:00 77 09/01/20 16:00 97.0 72 20 170/89 (116) 100 09/01/20 16:00 73 09/01/20 14:40 126/76 09/01/20 12:00 71 09/01/20 12:00 96.6 72 18 126/76 (93) 100 Intake and Output 09/01/20 09/02/20 19:00 07:00 Intake Total 400 ml 300 ml Output Total 400 ml Balance 400 ml -100 ml Intake Oral 400 ml 300 ml Output Urine Total 400 ml # Bowel Movements 1 1 Laboratory Tests Test 09/01/20 11:50 09/01/20 16:06 09/01/20 20:13 09/02/20 05:48 POC Whole Blood Glucose 308 MG/DL (74-106) H 214 MG/DL (74-106) H 238 MG/DL (74-106) H 224 MG/DL (74-106) H Test 09/02/20 06:02 09/02/20 10:52 White Blood Count 16.7 K/UL (4.8-10.8) H Red Blood Count 3.06 M/UL (4.20-5.40) L Hemoglobin 8.8 G/DL (12.0-16.0) L Hematocrit 29.6 % (37.0-47.0) L Mean Corpuscular Volume 97 FL (80-99) Mean Corpuscular Hemoglobin 28.8 PG (27.0-31.0) Mean Corpuscular Hemoglobin Concent 29.7 G/DL (32.0-36.0) L Red Cell Distribution Width 17.0 % (11.6-14.8) H Platelet Count 146 K/UL (150-450) L Mean Platelet Volume 7.8 FL (6.5-10.1) Neutrophils (%) (Auto) % (45.0-75.0) Lymphocytes (%) (Auto) % (20.0-45.0) Monocytes (%) (Auto) % (1.0-10.0) Eosinophils (%) (Auto) % (0.0-3.0) Basophils (%) (Auto) % (0.0-2.0) Differential Total Cells Counted 100 Neutrophils % (Manual) 86 % (45-75) H Lymphocytes % (Manual) 4 % (20-45) L Monocytes % (Manual) 5 % (1-10) Eosinophils % (Manual) 0 % (0-3) Basophils % (Manual) 0 % (0-2) Band Neutrophils 5 % (0-8) Platelet Estimate Decreased L Platelet Morphology Normal Polychromasia 1+ Hypochromasia 2+ Anisocytosis 2+ Sodium Level 139 MMOL/L (136-145) Potassium Level 4.6 MMOL/L (3.5-5.1) Chloride Level 105 MMOL/L (98-107) Carbon Dioxide Level 21 MMOL/L (21-32) Anion Gap 13 mmol/L (5-15) Blood Urea Nitrogen 81 mg/dL (7-18) H Creatinine 3.8 MG/DL (0.55-1.30) H Estimat Glomerular Filtration Rate 11.8 mL/min (>60) Glucose Level 234 MG/DL (74-106) H Uric Acid 9.4 MG/DL (2.6-7.2) H Calcium Level 8.1 MG/DL (8.5-10.1) L Phosphorus Level 5.7 MG/DL (2.5-4.9) H Magnesium Level 2.7 MG/DL (1.8-2.4) H Total Bilirubin 0.7 MG/DL (0.2-1.0) Aspartate Amino Transf (AST/SGOT) 21 U/L (15-37) Alanine Aminotransferase (ALT/SGPT) 14 U/L (12-78) Alkaline Phosphatase 186 U/L (46-116) H C-Reactive Protein, Quantitative 14.4 mg/dL (0.00-0.90) H Pro-B-Type Natriuretic Peptide 23806 pg/mL (0-125) H Total Protein 7.6 G/DL (6.4-8.2) Albumin 2.6 G/DL (3.4-5.0) L Globulin 5.0 g/dL Albumin/Globulin Ratio 0.5 (1.0-2.7) L POC Whole Blood Glucose 242 MG/DL (74-106) H Microbiology Date/Time Source Procedure Growth Status 09/01/20 14:08 Nasopharynx - Final Complete 09/01/20 14:08 Nasopharynx - Final Complete 08/31/20 15:32 Nasopharynx SARS-CoV-2 RdRp Gene Assay - Final Complete 08/30/20 18:10 Nasopharynx SARS-CoV-2 RdRp Gene Assay - Final Complete Objective HEAD AND NECK: No JVD. LUNGS: Coarse rhonchi, bibasilar rales. CARDIOVASCULAR: Regular S1 and S2 with no gallop. ABDOMEN: Soft. EXTREMITIES: Bilateral 2+ pitting edema. Sina Paulson MD Sep 02, 2020 11:23
[2020-09-02 12:00] VITALS: BP 131/68
--- NOTE | 2020-09-02 12:18 | Infectious Diseases Prog Note ---
Assessment/Plan Assessment: Severe Sepsis Pneumonia Acute hypoxic resp failure- on 2l NC R pleural effusion -09/01 Chest US: Positive for right pleural effusion Incidental finding of ascites, also previously reporte -08/30 CXR: There is again patchy ill-defined airspace opacities at the right greater than left base with some consolidated appearance again seen on the right. There is now patchy ill-defined opacity at the right upper lung. A small right pleural effusion is suggested. The patient is rotated to the right. Status post median sternotomy again noted. -08/30 & rapid covid PCR neg x2 Ro probable bacteremia -08/30 Bcx p Afebrile Leukocytosis, improving -08/31 u/a no pyuria R arm and R leg cellulitis Recent hx of COVID19- pt clarified initial diagnosis was 2 months ago and not 08/25 as per documentation on EMR. VENANCIO on CKD -REnal US: Ascites. Bilateral pleural effusions. Complex right renal cysts of uncertain etiology. This complex cyst is unchanged from the study of 01/12/2020. Mildly atrophic right kidney.Magnetic resonance imaging of the abdomen with gadolinium administration is advised for further evaluation of complex right renal cyst. HTN dCHF pHTN ascites chronic LE edema DM2 c/w neuropathy iron def anemia Plan: -Continue empiric Teflaro and LEvaquin #3 (abx d #4) -08/31 SP Ceftriaxone #2, Azithromcyin #2 -f/u cx -Monitor CBC/CMP, temperatures -influenza screen -aspiration precautions -REnal f.u Thank you for consulting [facility]. Will continue to follow along with you. Discussed with RN and Dr Treviño. Subjective Allergies: Coded Allergies: No Known Allergies (Unverified , 10/10/19) afebrile wbc improving Cr increased Objective Last 24 Hour Vital Signs Date Time Temp Pulse Resp B/P (MAP) Pulse Ox O2 Delivery O2 Flow Rate FiO2 09/02/20 09:00 Nasal Cannula 2.0 Nasal Cannula 2.0 09/02/20 08:00 96.9 75 20 142/75 (97) 98 09/02/20 08:00 75 09/02/20 06:17 141/67 09/02/20 04:00 97.3 71 19 131/88 (102) 98 09/02/20 04:00 72 09/02/20 00:00 96.2 72 20 123/76 (92) 98 09/02/20 00:00 72 09/01/20 21:14 133/56 09/01/20 21:00 Nasal Cannula 2.0 Nasal Cannula 2.0 09/01/20 20:08 75 18 99 Nasal Cannula 2.0 28 09/01/20 20:08 99 Nasal Cannula 2.0 28 09/01/20 20:00 96.4 77 20 133/56 (81) 100 09/01/20 20:00 77 09/01/20 16:00 97.0 72 20 170/89 (116) 100 09/01/20 16:00 73 09/01/20 14:40 126/76 Height (Feet): 5 Height (Inches): 10.00 Weight (Pounds): 218 GENERAL: Calm in bed, oriented x3, slight short of breath. CARDIOVASCULAR: No murmur. LUNGS: Poor exchange. ABDOMEN: Bowel sounds distant. EXTREMITIES: No cyanosis, clubbing, or edema. NEUROLOGIC: The patient moves all extremities, slightly weak. Microbiology Date/Time Source Procedure Growth Status 09/01/20 14:08 Nasopharynx - Final Complete 09/01/20 14:08 Nasopharynx - Final Complete 08/31/20 15:32 Nasopharynx SARS-CoV-2 RdRp Gene Assay - Final Complete 08/30/20 18:10 Nasopharynx SARS-CoV-2 RdRp Gene Assay - Final Complete Laboratory Tests Test 09/01/20 16:06 09/01/20 20:13 09/02/20 05:48 09/02/20 06:02 POC Whole Blood Glucose 214 MG/DL (74-106) H 238 MG/DL (74-106) H 224 MG/DL (74-106) H White Blood Count 16.7 K/UL (4.8-10.8) H Red Blood Count 3.06 M/UL (4.20-5.40) L Hemoglobin 8.8 G/DL (12.0-16.0) L Hematocrit 29.6 % (37.0-47.0) L Mean Corpuscular Volume 97 FL (80-99) Mean Corpuscular Hemoglobin 28.8 PG (27.0-31.0) Mean Corpuscular Hemoglobin Concent 29.7 G/DL (32.0-36.0) L Red Cell Distribution Width 17.0 % (11.6-14.8) H Platelet Count 146 K/UL (150-450) L Mean Platelet Volume 7.8 FL (6.5-10.1) Neutrophils (%) (Auto) % (45.0-75.0) Lymphocytes (%) (Auto) % (20.0-45.0) Monocytes (%) (Auto) % (1.0-10.0) Eosinophils (%) (Auto) % (0.0-3.0) Basophils (%) (Auto) % (0.0-2.0) Differential Total Cells Counted 100 Neutrophils % (Manual) 86 % (45-75) H Lymphocytes % (Manual) 4 % (20-45) L Monocytes % (Manual) 5 % (1-10) Eosinophils % (Manual) 0 % (0-3) Basophils % (Manual) 0 % (0-2) Band Neutrophils 5 % (0-8) Platelet Estimate Decreased L Platelet Morphology Normal Polychromasia 1+ Hypochromasia 2+ Anisocytosis 2+ Sodium Level 139 MMOL/L (136-145) Potassium Level 4.6 MMOL/L (3.5-5.1) Chloride Level 105 MMOL/L (98-107) Carbon Dioxide Level 21 MMOL/L (21-32) Anion Gap 13 mmol/L (5-15) Blood Urea Nitrogen 81 mg/dL (7-18) H Creatinine 3.8 MG/DL (0.55-1.30) H Estimat Glomerular Filtration Rate 11.8 mL/min (>60) Glucose Level 234 MG/DL (74-106) H Uric Acid 9.4 MG/DL (2.6-7.2) H Calcium Level 8.1 MG/DL (8.5-10.1) L Phosphorus Level 5.7 MG/DL (2.5-4.9) H Magnesium Level 2.7 MG/DL (1.8-2.4) H Total Bilirubin 0.7 MG/DL (0.2-1.0) Aspartate Amino Transf (AST/SGOT) 21 U/L (15-37) Alanine Aminotransferase (ALT/SGPT) 14 U/L (12-78) Alkaline Phosphatase 186 U/L (46-116) H C-Reactive Protein, Quantitative 14.4 mg/dL (0.00-0.90) H Pro-B-Type Natriuretic Peptide 98267 pg/mL (0-125) H Total Protein 7.6 G/DL (6.4-8.2) Albumin 2.6 G/DL (3.4-5.0) L Globulin 5.0 g/dL Albumin/Globulin Ratio 0.5 (1.0-2.7) L Test 09/02/20 10:52 POC Whole Blood Glucose 242 MG/DL (74-106) H Current Medications Medications (Trade) Dose Ordered Sig/Braeden Route PRN Reason Start Time Stop Time Status Last Admin Dose Admin Acetaminophen (Tylenol) 650 mg Q4H PRN ORAL FEVER 08/30/20 23:45 09/29/20 23:44 Albuterol/ Ipratropium (Albuterol/ Ipratropium) 3 ml Q4H PRN HHN Shortness of Breath 08/30/20 23:45 09/04/20 23:44 Allopurinol (allopurinoL) 300 mg DAILY ORAL 08/31/20 09:00 09/30/20 08:59 09/02/20 09:08 Ceftaroline Fosamil 200 mg/ Sodium Chloride 55 ml @ 55 mls/hr EVERY 12 HOURS IV 08/31/20 20:00 09/07/20 19:59 09/02/20 09:09 Dexamethasone (Decadron) 4 mg DAILY ORAL 08/31/20 09:00 09/09/20 08:59 09/02/20 09:08 Dextrose (Dextrose 50%) 25 ml Q30M PRN IV Hypoglycemia 08/30/20 23:45 11/28/20 23:44 Dextrose (Dextrose 50%) 50 ml Q30M PRN IV Hypoglycemia 08/30/20 23:45 11/28/20 23:44 Folic Acid (Folate) 3 mg DAILY ORAL 09/02/20 09:00 10/02/20 08:59 09/02/20 09:08 Furosemide (Lasix) 80 mg EVERY 12 HOURS IV 09/01/20 21:00 09/30/20 20:59 09/02/20 09:09 Gabapentin (Neurontin) 300 mg DAILY ORAL 08/31/20 09:00 09/30/20 08:59 09/02/20 09:09 Heparin Sodium (Porcine) (Heparin 5000 units/ml) 5,000 units EVERY 12 HOURS SUBQ 08/31/20 09:00 10/15/20 08:59 09/01/20 21:22 Hydralazine HCl (Apresoline) 50 mg Q8HR ORAL 08/31/20 00:00 11/29/20 00:00 09/02/20 06:17 Insulin Aspart (NovoLOG) BEFORE MEALS AND HS SUBQ 08/31/20 06:30 11/29/20 06:29 09/02/20 11:55 Levofloxacin 150 ml @ 100 mls/hr Q48H IVPB 08/31/20 18:00 09/07/20 17:59 08/31/20 18:11 Levothyroxine Sodium (Synthroid) 100 mcg DAILY@0630 ORAL 09/02/20 06:30 10/02/20 06:29 09/02/20 06:17 Metoclopramide HCl (Reglan) 5 mg THREE TIMES A DAY ORAL 08/31/20 13:00 09/30/20 12:59 09/02/20 09:08 Morphine Sulfate (Morphine Sulfate) 2 mg Q4H PRN IVP For Pain 09/01/20 02:50 09/08/20 02:59 09/01/20 03:04 Ondansetron HCl (Zofran) 4 mg Q6H PRN IVP Nausea & Vomiting 08/30/20 23:45 09/29/20 23:44 Pantoprazole (Protonix) 40 mg EVERY 12 HOURS ORAL 08/31/20 21:00 09/30/20 20:59 09/02/20 09:08 Polyethylene Glycol (Miralax) 17 gm DAILYPRN PRN ORAL Constipation 08/30/20 23:45 09/29/20 23:44 Promethazine HCl/ Codeine (Phenergan with Codeine) 5 ml Q6H PRN ORAL cough 08/30/20 23:45 09/29/20 23:44 Marielena Etienne M.D. Sep 02, 2020 12:18
--- NOTE | 2020-09-02 12:29 | Pulmonology Progress Note ---
Subjective ROS Limited/Unobtainable: No Constitutional: Reports: no symptoms HEENT: Repors: no symptoms Respiratory: Reports: no symptoms Allergies: Coded Allergies: No Known Allergies (Unverified , 10/10/19) All Systems: reviewed and negative except above Objective Last 24 Hour Vital Signs Date Time Temp Pulse Resp B/P (MAP) Pulse Ox O2 Delivery O2 Flow Rate FiO2 09/02/20 09:00 Nasal Cannula 2.0 Nasal Cannula 2.0 09/02/20 08:00 96.9 75 20 142/75 (97) 98 09/02/20 08:00 75 09/02/20 06:17 141/67 09/02/20 04:00 97.3 71 19 131/88 (102) 98 09/02/20 04:00 72 09/02/20 00:00 96.2 72 20 123/76 (92) 98 09/02/20 00:00 72 09/01/20 21:14 133/56 09/01/20 21:00 Nasal Cannula 2.0 Nasal Cannula 2.0 09/01/20 20:08 75 18 99 Nasal Cannula 2.0 28 09/01/20 20:08 99 Nasal Cannula 2.0 28 09/01/20 20:00 96.4 77 20 133/56 (81) 100 09/01/20 20:00 77 09/01/20 16:00 97.0 72 20 170/89 (116) 100 09/01/20 16:00 73 09/01/20 14:40 126/76 Intake and Output 09/01/20 09/02/20 19:00 07:00 Intake Total 400 ml 300 ml Output Total 400 ml Balance 400 ml -100 ml Intake Oral 400 ml 300 ml Output Urine Total 400 ml # Bowel Movements 1 1 General Appearance: WD/WN HEENT: normocephalic, atraumatic Respiratory: chest wall non-tender, lungs clear Breasts: no masses Cardiovascular: normal peripheral pulses Abdomen: normal bowel sounds, soft, non tender Genitourinary: normal external genitalia Extremities: no clubbing 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 normal Microbiology Date/Time Source Procedure Growth Status 09/01/20 14:08 Nasopharynx - Final Complete 09/01/20 14:08 Nasopharynx - Final Complete 08/31/20 15:32 Nasopharynx SARS-CoV-2 RdRp Gene Assay - Final Complete 08/30/20 18:10 Nasopharynx SARS-CoV-2 RdRp Gene Assay - Final Complete Laboratory Tests 09/01/20 16:06: POC Whole Blood Glucose 214H 09/01/20 20:13: POC Whole Blood Glucose 238H 09/02/20 05:48: POC Whole Blood Glucose 224H 09/02/20 06:02: White Blood Count 16.7H, Red Blood Count 3.06L, Hemoglobin 8.8L, Hematocrit 29.6L, Mean Corpuscular Volume 97, Mean Corpuscular Hemoglobin 28.8, Mean Corpuscular Hemoglobin Concent 29.7L, Red Cell Distribution Width 17.0H, Platelet Count 146L, Mean Platelet Volume 7.8, Neutrophils (%) (Auto) , Lymphocytes (%) (Auto) , Monocytes (%) (Auto) , Eosinophils (%) (Auto) , Basophils (%) (Auto) , Differential Total Cells Counted 100, Neutrophils % (Manual) 86H, Lymphocytes % (Manual) 4L, Monocytes % (Manual) 5, Eosinophils % (Manual) 0, Basophils % (Manual) 0, Band Neutrophils 5, Platelet Estimate DecreasedL, Platelet Morphology Normal, Polychromasia 1+, Hypochromasia 2+, Anisocytosis 2+, Sodium Level 139, Potassium Level 4.6, Chloride Level 105, Carbon Dioxide Level 21, Anion Gap 13, Blood Urea Nitrogen 81H, Creatinine 3.8H, Estimat Glomerular Filtration Rate 11.8, Glucose Level 234H, Uric Acid 9.4H, Calcium Level 8.1L, Phosphorus Level 5.7H, Magnesium Level 2.7H, Total Bilirubin 0.7, Aspartate Amino Transf (AST/SGOT) 21, Alanine Aminotransferase (ALT/SGPT) 14, Alkaline Phosphatase 186H, C-Reactive Protein, Quantitative 14.4H, Pro-B-Type Natriuretic Peptide 19206D, Total Protein 7.6, Albumin 2.6L, Globulin 5.0, Albumin/Globulin Ratio 0.5L 09/02/20 10:52: POC Whole Blood Glucose 242H Current Medications Medications (Trade) Dose Ordered Sig/Braeden Route PRN Reason Start Time Stop Time Status Last Admin Dose Admin Acetaminophen (Tylenol) 650 mg Q4H PRN ORAL FEVER 08/30/20 23:45 09/29/20 23:44 Albuterol/ Ipratropium (Albuterol/ Ipratropium) 3 ml Q4H PRN HHN Shortness of Breath 08/30/20 23:45 09/04/20 23:44 Allopurinol (allopurinoL) 300 mg DAILY ORAL 08/31/20 09:00 09/30/20 08:59 09/02/20 09:08 Ceftaroline Fosamil 200 mg/ Sodium Chloride 55 ml @ 55 mls/hr EVERY 12 HOURS IV 08/31/20 20:00 09/07/20 19:59 09/02/20 09:09 Dexamethasone (Decadron) 4 mg DAILY ORAL 08/31/20 09:00 09/09/20 08:59 09/02/20 09:08 Dextrose (Dextrose 50%) 25 ml Q30M PRN IV Hypoglycemia 08/30/20 23:45 11/28/20 23:44 Dextrose (Dextrose 50%) 50 ml Q30M PRN IV Hypoglycemia 08/30/20 23:45 11/28/20 23:44 Folic Acid (Folate) 3 mg DAILY ORAL 09/02/20 09:00 10/02/20 08:59 09/02/20 09:08 Furosemide (Lasix) 80 mg EVERY 12 HOURS IV 09/01/20 21:00 09/30/20 20:59 09/02/20 09:09 Gabapentin (Neurontin) 300 mg DAILY ORAL 08/31/20 09:00 09/30/20 08:59 09/02/20 09:09 Heparin Sodium (Porcine) (Heparin 5000 units/ml) 5,000 units EVERY 12 HOURS SUBQ 08/31/20 09:00 10/15/20 08:59 09/01/20 21:22 Hydralazine HCl (Apresoline) 50 mg Q8HR ORAL 08/31/20 00:00 11/29/20 00:00 09/02/20 06:17 Insulin Aspart (NovoLOG) BEFORE MEALS AND HS SUBQ 08/31/20 06:30 11/29/20 06:29 09/02/20 11:55 Levofloxacin 150 ml @ 100 mls/hr Q48H IVPB 08/31/20 18:00 09/07/20 17:59 08/31/20 18:11 Levothyroxine Sodium (Synthroid) 100 mcg DAILY@0630 ORAL 09/02/20 06:30 10/02/20 06:29 09/02/20 06:17 Metoclopramide HCl (Reglan) 5 mg THREE TIMES A DAY ORAL 08/31/20 13:00 09/30/20 12:59 09/02/20 09:08 Morphine Sulfate (Morphine Sulfate) 2 mg Q4H PRN IVP For Pain 09/01/20 02:50 09/08/20 02:59 09/01/20 03:04 Ondansetron HCl (Zofran) 4 mg Q6H PRN IVP Nausea & Vomiting 08/30/20 23:45 09/29/20 23:44 Pantoprazole (Protonix) 40 mg EVERY 12 HOURS ORAL 08/31/20 21:00 09/30/20 20:59 09/02/20 09:08 Polyethylene Glycol (Miralax) 17 gm DAILYPRN PRN ORAL Constipation 08/30/20 23:45 09/29/20 23:44 Promethazine HCl/ Codeine (Phenergan with Codeine) 5 ml Q6H PRN ORAL cough 08/30/20 23:45 09/29/20 23:44 Assessment/Plan Problems: (1) Acute on chronic diastolic (congestive) heart failure (2) Renal failure (ARF), acute on chronic (3) Diabetes mellitus (4) Left bundle branch block (LBBB) (5) Cardiac left ventricular ejection fraction greater than 40 percent (6) Grade I diastolic dysfunction (7) History of hypertension Assessment/Plan keep tele O2 titrate to keep sat > 92%, currently down to O2 via NC US of chest showed effusion as expected, radiologist didn't make any comment about the size of the fluid. Thoracentesis, since pt has leukocytosis. empiric abx fup with inflam markers DVT prophylaxis Tiana Cool MD Sep 02, 2020 12:29
--- NOTE | 2020-09-02 13:15 | General Progress Note ---
Subjective Constitutional: Reports: weakness Respiratory: Reports: shortness of breath Allergies: Coded Allergies: No Known Allergies (Unverified , 10/10/19) All Systems: reviewed and negative except above Subjective o2nc calm Objective Last 24 Hour Vital Signs Date Time Temp Pulse Resp B/P (MAP) Pulse Ox O2 Delivery O2 Flow Rate FiO2 09/02/20 12:00 71 09/02/20 12:00 97.2 71 22 131/68 (89) 98 09/02/20 09:00 Nasal Cannula 2.0 Nasal Cannula 2.0 09/02/20 08:00 96.9 75 20 142/75 (97) 98 09/02/20 08:00 75 09/02/20 06:17 141/67 09/02/20 04:00 97.3 71 19 131/88 (102) 98 09/02/20 04:00 72 09/02/20 00:00 96.2 72 20 123/76 (92) 98 09/02/20 00:00 72 09/01/20 21:14 133/56 09/01/20 21:00 Nasal Cannula 2.0 Nasal Cannula 2.0 09/01/20 20:08 75 18 99 Nasal Cannula 2.0 28 09/01/20 20:08 99 Nasal Cannula 2.0 28 09/01/20 20:00 96.4 77 20 133/56 (81) 100 09/01/20 20:00 77 09/01/20 16:00 97.0 72 20 170/89 (116) 100 09/01/20 16:00 73 09/01/20 14:40 126/76 Intake and Output 09/01/20 09/02/20 19:00 07:00 Intake Total 400 ml 300 ml Output Total 400 ml Balance 400 ml -100 ml Intake Oral 400 ml 300 ml Output Urine Total 400 ml # Bowel Movements 1 1 Laboratory Tests 09/01/20 16:06: POC Whole Blood Glucose 214H 09/01/20 20:13: POC Whole Blood Glucose 238H 09/02/20 05:48: POC Whole Blood Glucose 224H 09/02/20 06:02: White Blood Count 16.7H, Red Blood Count 3.06L, Hemoglobin 8.8L, Hematocrit 29.6L, Mean Corpuscular Volume 97, Mean Corpuscular Hemoglobin 28.8, Mean Corpuscular Hemoglobin Concent 29.7L, Red Cell Distribution Width 17.0H, Platelet Count 146L, Mean Platelet Volume 7.8, Neutrophils (%) (Auto) , Lymphocytes (%) (Auto) , Monocytes (%) (Auto) , Eosinophils (%) (Auto) , Basophils (%) (Auto) , Differential Total Cells Counted 100, Neutrophils % (Manual) 86H, Lymphocytes % (Manual) 4L, Monocytes % (Manual) 5, Eosinophils % (Manual) 0, Basophils % (Manual) 0, Band Neutrophils 5, Platelet Estimate DecreasedL, Platelet Morphology Normal, Polychromasia 1+, Hypochromasia 2+, Anisocytosis 2+, Sodium Level 139, Potassium Level 4.6, Chloride Level 105, Carbon Dioxide Level 21, Anion Gap 13, Blood Urea Nitrogen 81H, Creatinine 3.8H, Estimat Glomerular Filtration Rate 11.8, Glucose Level 234H, Uric Acid 9.4H, Calcium Level 8.1L, Phosphorus Level 5.7H, Magnesium Level 2.7H, Total Bilirubin 0.7, Aspartate Amino Transf (AST/SGOT) 21, Alanine Aminotransferase (ALT/SGPT) 14, Alkaline Phosphatase 186H, C-Reactive Protein, Quantitative 14.4H, Pro-B-Type Natriuretic Peptide 09456D, Total Protein 7.6, Albumin 2.6L, Globulin 5.0, Albumin/Globulin Ratio 0.5L 09/02/20 10:52: POC Whole Blood Glucose 242H Height (Feet): 5 Height (Inches): 10.00 Weight (Pounds): 218 General Appearance: lethargic EENT: normal ENT inspection Neck: normal alignment Cardiovascular: normal peripheral pulses, normal rate, regular rhythm Respiratory/Chest: chest wall non-tender, lungs clear, normal breath sounds Abdomen: normal bowel sounds, non tender, soft Extremities: normal inspection Edema: 1+ Arm (L), 1+ Arm (R), 1+ Leg (L), 1+ Leg (R), 1+ Pedal (L), 1+ Pedal (R), 1+ Generalized Edema: trace edema Neurologic: motor weakness Skin: normal pigmentation, warm/dry Assessment/Plan Problem List: (1) UTI (urinary tract infection) ICD Codes: N39.0 - Urinary tract infection, site not specified SNOMED: 18958471 (2) Acute respiratory failure ICD Codes: J96.00 - Acute respiratory failure, unspecified whether with hypoxia or hypercapnia SNOMED: 80345010 (3) History of hypertension ICD Codes: Z86.79 - Personal history of other diseases of the circulatory system SNOMED: 604922924 (4) Diabetes mellitus ICD Codes: E11.9 - Type 2 diabetes mellitus without complications SNOMED: 13258274 (5) Renal failure (ARF), acute on chronic ICD Codes: N17.9 - Acute kidney failure, unspecified; N18.9 - Chronic kidney disease, unspecified SNOMED: 762686925 Status: unchanged Assessment/Plan: o2 pulm tx abx pt diet cbc bmp am aru Dyllan Gonzalez DO Sep 02, 2020 13:15
--- NOTE | 2020-09-02 13:33 | Nephrology Progress Note ---
Assessment/Plan Problem List: (1) Renal failure (ARF), acute on chronic (2) Hyperkalemia (3) Hypothyroidism (4) Acute on chronic diastolic (congestive) heart failure (5) Diabetic nephropathy (6) Anemia Assessment 1) Renal failure (ARF), acute on chronic (2) Diabetes mellitus (3) Hypoglycemia (4) Hyperkalemia (5) Diabetic nephropathy (6) H/o Pleural effusion (7) Morbid obesity (8) Low Iron Anemia (9) HypoThyroidism Plan September 02: Consent for dialysis catheter is taken. Catheter placement deferred due to leukocytosis. Surveillance blood culture ordered. Urine culture ordered. Blood pressure medication adjusted. 24-hour urine for creatinine clearance and total protein pending. Previously: Chan Cath 24 H CrCl and total protein ordered Off IV fluids, on IV Lasix Adjust BP meds Previous 2D echocardiogram ejection fraction is reported to 50% Previous Kidney ultrasound noted. Current kidney ultrasound results below Anemia work-up As needed Kayexalate for high potassium Keep blood pressure and blood sugar in check Monitor renal parameters Requires HD treatment [facility] KIDNEY IMPRESSION: 1. Ascites. 2. Bilateral pleural effusions. 3. Complex right renal cysts of uncertain etiology. This complex cyst is unchanged from the study of 01/12/2020. 4. Mildly atrophic right kidney. 5. Magnetic resonance imaging of the abdomen with gadolinium administration is advised for further evaluation of complex right renal cyst. Subjective ROS Limited/Unobtainable: No Constitutional: Reports: malaise, weakness Objective Objective Last 24 Hour Vital Signs Date Time Temp Pulse Resp B/P (MAP) Pulse Ox O2 Delivery O2 Flow Rate FiO2 09/02/20 12:00 71 09/02/20 12:00 97.2 71 22 131/68 (89) 98 09/02/20 09:00 Nasal Cannula 2.0 Nasal Cannula 2.0 09/02/20 08:00 96.9 75 20 142/75 (97) 98 09/02/20 08:00 75 09/02/20 06:17 141/67 09/02/20 04:00 97.3 71 19 131/88 (102) 98 09/02/20 04:00 72 09/02/20 00:00 96.2 72 20 123/76 (92) 98 09/02/20 00:00 72 09/01/20 21:14 133/56 09/01/20 21:00 Nasal Cannula 2.0 Nasal Cannula 2.0 09/01/20 20:08 75 18 99 Nasal Cannula 2.0 28 09/01/20 20:08 99 Nasal Cannula 2.0 28 09/01/20 20:00 96.4 77 20 133/56 (81) 100 09/01/20 20:00 77 09/01/20 16:00 97.0 72 20 170/89 (116) 100 09/01/20 16:00 73 09/01/20 14:40 126/76 Intake and Output 09/01/20 09/02/20 19:00 07:00 Intake Total 400 ml 300 ml Output Total 400 ml Balance 400 ml -100 ml Intake Oral 400 ml 300 ml Output Urine Total 400 ml # Bowel Movements 1 1 Current Medications Medications (Trade) Dose Ordered Sig/Braeden Route PRN Reason Start Time Stop Time Status Last Admin Dose Admin Acetaminophen (Tylenol) 650 mg Q4H PRN ORAL FEVER 08/30/20 23:45 09/29/20 23:44 Albuterol/ Ipratropium (Albuterol/ Ipratropium) 3 ml Q4H PRN HHN Shortness of Breath 08/30/20 23:45 09/04/20 23:44 Allopurinol (allopurinoL) 300 mg DAILY ORAL 08/31/20 09:00 09/30/20 08:59 09/02/20 09:08 Ceftaroline Fosamil 200 mg/ Sodium Chloride 55 ml @ 55 mls/hr EVERY 12 HOURS IV 08/31/20 20:00 09/07/20 19:59 09/02/20 09:09 Dexamethasone (Decadron) 4 mg DAILY ORAL 08/31/20 09:00 09/09/20 08:59 09/02/20 09:08 Dextrose (Dextrose 50%) 25 ml Q30M PRN IV Hypoglycemia 08/30/20 23:45 11/28/20 23:44 Dextrose (Dextrose 50%) 50 ml Q30M PRN IV Hypoglycemia 08/30/20 23:45 11/28/20 23:44 Folic Acid (Folate) 3 mg DAILY ORAL 09/02/20 09:00 10/02/20 08:59 09/02/20 09:08 Furosemide (Lasix) 80 mg EVERY 12 HOURS IV 09/01/20 21:00 09/30/20 20:59 09/02/20 09:09 Gabapentin (Neurontin) 300 mg DAILY ORAL 08/31/20 09:00 09/30/20 08:59 09/02/20 09:09 Heparin Sodium (Porcine) (Heparin 5000 units/ml) 5,000 units EVERY 12 HOURS SUBQ 08/31/20 09:00 10/15/20 08:59 09/01/20 21:22 Hydralazine HCl (Apresoline) 50 mg Q8HR ORAL 08/31/20 00:00 11/29/20 00:00 09/02/20 06:17 Insulin Aspart (NovoLOG) BEFORE MEALS AND HS SUBQ 08/31/20 06:30 11/29/20 06:29 09/02/20 11:55 Levofloxacin 150 ml @ 100 mls/hr Q48H IVPB 08/31/20 18:00 09/07/20 17:59 08/31/20 18:11 Levothyroxine Sodium (Synthroid) 100 mcg DAILY@0630 ORAL 09/02/20 06:30 10/02/20 06:29 09/02/20 06:17 Metoclopramide HCl (Reglan) 5 mg THREE TIMES A DAY ORAL 08/31/20 13:00 09/30/20 12:59 09/02/20 09:08 Morphine Sulfate (Morphine Sulfate) 2 mg Q4H PRN IVP For Pain 09/01/20 02:50 09/08/20 02:59 09/01/20 03:04 Ondansetron HCl (Zofran) 4 mg Q6H PRN IVP Nausea & Vomiting 08/30/20 23:45 09/29/20 23:44 Pantoprazole (Protonix) 40 mg EVERY 12 HOURS ORAL 08/31/20 21:00 09/30/20 20:59 09/02/20 09:08 Polyethylene Glycol (Miralax) 17 gm DAILYPRN PRN ORAL Constipation 08/30/20 23:45 09/29/20 23:44 Promethazine HCl/ Codeine (Phenergan with Codeine) 5 ml Q6H PRN ORAL cough 08/30/20 23:45 09/29/20 23:44 Laboratory Tests 09/01/20 16:06: POC Whole Blood Glucose 214H 09/01/20 20:13: POC Whole Blood Glucose 238H 09/02/20 05:48: POC Whole Blood Glucose 224H 09/02/20 06:02: White Blood Count 16.7H, Red Blood Count 3.06L, Hemoglobin 8.8L, Hematocrit 29.6L, Mean Corpuscular Volume 97, Mean Corpuscular Hemoglobin 28.8, Mean Corpuscular Hemoglobin Concent 29.7L, Red Cell Distribution Width 17.0H, Platelet Count 146L, Mean Platelet Volume 7.8, Neutrophils (%) (Auto) , Lymphocytes (%) (Auto) , Monocytes (%) (Auto) , Eosinophils (%) (Auto) , Basophils (%) (Auto) , Differential Total Cells Counted 100, Neutrophils % (Manual) 86H, Lymphocytes % (Manual) 4L, Monocytes % (Manual) 5, Eosinophils % (Manual) 0, Basophils % (Manual) 0, Band Neutrophils 5, Platelet Estimate DecreasedL, Platelet Morphology Normal, Polychromasia 1+, Hypochromasia 2+, Anisocytosis 2+, Sodium Level 139, Potassium Level 4.6, Chloride Level 105, Carbon Dioxide Level 21, Anion Gap 13, Blood Urea Nitrogen 81H, Creatinine 3.8H, Estimat Glomerular Filtration Rate 11.8, Glucose Level 234H, Uric Acid 9.4H, Calcium Level 8.1L, Phosphorus Level 5.7H, Magnesium Level 2.7H, Total Bilirubin 0.7, Aspartate Amino Transf (AST/SGOT) 21, Alanine Aminotransferase (ALT/SGPT) 14, Alkaline Phosphatase 186H, C-Reactive Protein, Quantitative 14.4H, Pro-B-Type Natriuretic Peptide 63016Q, Total Protein 7.6, Albumin 2.6L, Globulin 5.0, Albumin/Globulin Ratio 0.5L 09/02/20 10:52: POC Whole Blood Glucose 242H Height (Feet): 5 Height (Inches): 10.00 Weight (Pounds): 218 General Appearance: no apparent distress Cardiovascular: normal rate Respiratory/Chest: decreased breath sounds Abdomen: distended Jay Severino MD Sep 02, 2020 13:33
--- NOTE | 2020-09-02 13:41 | Diagnostic Imaging Report ---
Indication: Shortness of breath Technique: One view of the chest Comparison: 08/30/2020 Findings: Better inspiration currently. Large right pleural effusion persists, unchanged. Bilateral interstitial and airspace edema, cardiomegaly persists, probably unchanged allowing for differences in technique and inspiration Impression: Unchanged, over one day, findings as above.
[2020-09-02] MEDS: HydrALAZINE 25mg tab ORAL SCH ×2 (13:45→21:14)
--- NOTE | 2020-09-02 14:25 | Consultation ---
History of Present Illness General Date patient seen: Sep 02, 2020 Reason for Hospitalization: Dyspnea/Respdistress Present Illness HPI This is a 70-year old female with multiple medical comorbidities including history of hypertension, diabetes, CHF, COVID-19 who presented to [facility] for evaluation of respiratory issues/ shortness of breath. Patient states she has been feeling short of breath for the past couple of days prior to admission. She denies any fever cough or chest pain. No nausea or vomiting. She states she had a positive coronavirus test approximately 9 days ago. She has a history of ascites as well as chronic lower extremity edema. She reports orthopnea and shortness of breath on exertion. On EMS arrival to her home she was approximately 87% on room air.. on admission noted to have multiple wounds and open ulcers in bilateral lower extremities with potential infection and necrotic tissue. surgery called to evaluate and assist with care. patient seen, chart reviewed, patient examined. Allergies: Coded Allergies: No Known Allergies (Unverified , 10/10/19) COVID-19 Screening Contact w/high risk pt: No Recent Travel to affected area: No Experienced COVID-19 symptoms?: Yes Coronavirus symptoms experienc: Shortness of Breath Medication History Scheduled Albuterol Sulfate (Ventolin Hfa), 2 PUFFS INH EVERY 6 HOURS, (Reported) Allopurinol* (Allopurinol*), 300 MG ORAL DAILY Amlodipine Besylate* (Amlodipine Besylate*), 5 MG ORAL DAILY, (Reported) Atorvastatin (Lipitor), 80 MG ORAL DAILY, (Reported) Atorvastatin Calcium* (Atorvastatin Calcium*), Unknown Dose ORAL BEDTIME, (Reported) Docusate Sodium (Docusate Sodium), 100 MG ORAL DAILY, (Reported) Gabapentin* (Gabapentin*), 300 MG ORAL DAILY, (Reported) Hydralazine HCl (Hydralazine HCl), 50 MG ORAL Q8HR Levothyroxine Sodium* (Synthroid*), 75 MCG ORAL DAILY, (Reported) Metolazone (Metolazone), 5 MG ORAL DAILY Pantoprazole* (Pantoprazole*), 40 MG ORAL EVERY 12 HOURS, (Reported) Miscellaneous Medications Acetaminophen (Mapap), 500 MG PO, (Reported) Betamet Diprop/Prop Gly (Betamethasone Dp Aug 0.05% Crm), 15 GM TP, (Reported) Insulin Aspart (Novolog), 60, (Reported) Patient History History Provided By: Patient, Medical Record, PMD Healthcare decision maker Resuscitation status Advanced Directive on File Past Medical/Surgical History Past Medical/Surgical History: (1) Acute on chronic diastolic (congestive) heart failure (2) Anemia (3) Acute respiratory failure (4) ACS (acute coronary syndrome) (5) History of hypertension (6) Moderate pulmonary arterial systolic hypertension (7) Left bundle branch block (LBBB) (8) Diabetes mellitus (9) Diabetic nephropathy (10) Renal failure (ARF), acute on chronic (11) Hyperkalemia (12) Bacteremia (13) CAD (coronary artery disease) (14) Hypothyroidism (15) Cardiac left ventricular ejection fraction greater than 40 percent (16) Grade I diastolic dysfunction (17) UTI (urinary tract infection) Review of Systems Review of Symptoms General ROS: no weight loss or fever Psychological ROS: no depression or mood changes, no memory loss Ophthalmic ROS: no visual changes or eye irritation ENT ROS: no nasal congestion, hearing loss, dizziness Allergy and Immunology ROS: no allergic symptoms or urticaria Hematological and Lymphatic ROS: no swollen glands, unusual bleeding or bruising Endocrine ROS: no polyuria, polydipsia, weight changes, temperature intolerance Respiratory ROS: no cough, shortness of breath, or wheezing Cardiovascular ROS: no chest pain or dyspnea on exertion Gastrointestinal ROS: denies abdominal pain, bright red blood in stool. Musculoskeletal ROS: no myalgias or arthralgias Neurological ROS: no TIA or stroke symptoms Dermatological ROS: no new or changing skin lesions, rashes or pruritis Physical Exam Physical Exam General appearance: alert, cooperative, no distress, appears stated age Head: Normocephalic, without obvious abnormality, atraumatic Eyes: conjunctivae/corneas clear. PERRL, EOM's intact. Fundi benign Throat: Lips, mucosa, and tongue normal. Teeth and gums normal Neck: supple, symmetrical, trachea midline, no adenopathy, thyroid: not enlarged, symmetric, no tenderness/mass/nodules, no carotid bruit and no JVD Lungs: clear to auscultation bilaterally Heart: regular rate and rhythm, S1, S2 normal, no murmur, click, rub or gallop Abdomen: soft, non-tender. Bowel sounds normal. No masses, no organomegaly Extremities: extremities + cyanosis / edema Pulses: 2+ and symmetric Skin: Skin see below Neurologic: Grossly normal Last 24 Hour Vital Signs Date Time Temp Pulse Resp B/P (MAP) Pulse Ox O2 Delivery O2 Flow Rate FiO2 09/02/20 13:45 155/82 09/02/20 12:00 71 09/02/20 12:00 97.2 71 22 131/68 (89) 98 09/02/20 09:00 Nasal Cannula 2.0 Nasal Cannula 2.0 09/02/20 08:00 96.9 75 20 142/75 (97) 98 09/02/20 08:00 75 09/02/20 06:17 141/67 09/02/20 04:00 97.3 71 19 131/88 (102) 98 09/02/20 04:00 72 09/02/20 00:00 96.2 72 20 123/76 (92) 98 09/02/20 00:00 72 09/01/20 21:14 133/56 09/01/20 21:00 Nasal Cannula 2.0 Nasal Cannula 2.0 09/01/20 20:08 75 18 99 Nasal Cannula 2.0 28 09/01/20 20:08 99 Nasal Cannula 2.0 28 09/01/20 20:00 96.4 77 20 133/56 (81) 100 09/01/20 20:00 77 09/01/20 16:00 97.0 72 20 170/89 (116) 100 09/01/20 16:00 73 09/01/20 14:40 126/76 Intake and Output 09/01/20 09/02/20 19:00 07:00 Intake Total 400 ml 300 ml Output Total 400 ml Balance 400 ml -100 ml Intake Oral 400 ml 300 ml Output Urine Total 400 ml # Bowel Movements 1 1 Laboratory Tests Test 09/01/20 16:06 09/01/20 20:13 09/02/20 05:48 09/02/20 06:02 POC Whole Blood Glucose 214 MG/DL (74-106) H 238 MG/DL (74-106) H 224 MG/DL (74-106) H White Blood Count 16.7 K/UL (4.8-10.8) H Red Blood Count 3.06 M/UL (4.20-5.40) L Hemoglobin 8.8 G/DL (12.0-16.0) L Hematocrit 29.6 % (37.0-47.0) L Mean Corpuscular Volume 97 FL (80-99) Mean Corpuscular Hemoglobin 28.8 PG (27.0-31.0) Mean Corpuscular Hemoglobin Concent 29.7 G/DL (32.0-36.0) L Red Cell Distribution Width 17.0 % (11.6-14.8) H Platelet Count 146 K/UL (150-450) L Mean Platelet Volume 7.8 FL (6.5-10.1) Neutrophils (%) (Auto) % (45.0-75.0) Lymphocytes (%) (Auto) % (20.0-45.0) Monocytes (%) (Auto) % (1.0-10.0) Eosinophils (%) (Auto) % (0.0-3.0) Basophils (%) (Auto) % (0.0-2.0) Differential Total Cells Counted 100 Neutrophils % (Manual) 86 % (45-75) H Lymphocytes % (Manual) 4 % (20-45) L Monocytes % (Manual) 5 % (1-10) Eosinophils % (Manual) 0 % (0-3) Basophils % (Manual) 0 % (0-2) Band Neutrophils 5 % (0-8) Platelet Estimate Decreased L Platelet Morphology Normal Polychromasia 1+ Hypochromasia 2+ Anisocytosis 2+ Sodium Level 139 MMOL/L (136-145) Potassium Level 4.6 MMOL/L (3.5-5.1) Chloride Level 105 MMOL/L (98-107) Carbon Dioxide Level 21 MMOL/L (21-32) Anion Gap 13 mmol/L (5-15) Blood Urea Nitrogen 81 mg/dL (7-18) H Creatinine 3.8 MG/DL (0.55-1.30) H Estimat Glomerular Filtration Rate 11.8 mL/min (>60) Glucose Level 234 MG/DL (74-106) H Uric Acid 9.4 MG/DL (2.6-7.2) H Calcium Level 8.1 MG/DL (8.5-10.1) L Phosphorus Level 5.7 MG/DL (2.5-4.9) H Magnesium Level 2.7 MG/DL (1.8-2.4) H Total Bilirubin 0.7 MG/DL (0.2-1.0) Aspartate Amino Transf (AST/SGOT) 21 U/L (15-37) Alanine Aminotransferase (ALT/SGPT) 14 U/L (12-78) Alkaline Phosphatase 186 U/L (46-116) H C-Reactive Protein, Quantitative 14.4 mg/dL (0.00-0.90) H Pro-B-Type Natriuretic Peptide 66174 pg/mL (0-125) H Total Protein 7.6 G/DL (6.4-8.2) Albumin 2.6 G/DL (3.4-5.0) L Globulin 5.0 g/dL Albumin/Globulin Ratio 0.5 (1.0-2.7) L Test 09/02/20 10:52 POC Whole Blood Glucose 242 MG/DL (74-106) H Height (Feet): 5 Height (Inches): 10.00 Weight (Pounds): 218 Medications Current Medications Medications (Trade) Dose Ordered Sig/Braeden Route PRN Reason Start Time Stop Time Status Last Admin Dose Admin Acetaminophen (Tylenol) 650 mg Q4H PRN ORAL FEVER 08/30/20 23:45 09/29/20 23:44 Albuterol/ Ipratropium (Albuterol/ Ipratropium) 3 ml Q4H PRN HHN Shortness of Breath 08/30/20 23:45 09/04/20 23:44 Allopurinol (allopurinoL) 300 mg DAILY ORAL 08/31/20 09:00 09/30/20 08:59 09/02/20 09:08 Ceftaroline Fosamil 200 mg/ Sodium Chloride 55 ml @ 55 mls/hr EVERY 12 HOURS IV 08/31/20 20:00 09/07/20 19:59 09/02/20 09:09 Dexamethasone (Decadron) 4 mg DAILY ORAL 08/31/20 09:00 09/09/20 08:59 09/02/20 09:08 Dextrose (Dextrose 50%) 25 ml Q30M PRN IV Hypoglycemia 08/30/20 23:45 2 23:44 Dextrose (Dextrose 50%) 50 ml Q30M PRN IV Hypoglycemia 08/30/20 23:45 11/28/20 23:44 Folic Acid (Folate) 3 mg DAILY ORAL 09/02/20 09:00 10/02/20 08:59 09/02/20 09:08 Furosemide (Lasix) 80 mg EVERY 12 HOURS IV 09/02/20 21:00 09/30/20 20:59 Gabapentin (Neurontin) 300 mg DAILY ORAL 08/31/20 09:00 09/30/20 08:59 09/02/20 09:09 Heparin Sodium (Porcine) (Heparin 5000 units/ml) 5,000 units EVERY 12 HOURS SUBQ 08/31/20 09:00 10/15/20 08:59 09/01/20 21:22 Hydralazine HCl (Apresoline) 75 mg Q8HR ORAL 09/02/20 14:00 11/29/20 00:00 09/02/20 13:45 Insulin Aspart (NovoLOG) BEFORE MEALS AND HS SUBQ 08/31/20 06:30 11/29/20 06:29 09/02/20 11:55 Levofloxacin 150 ml @ 100 mls/hr Q48H IVPB 08/31/20 18:00 09/07/20 17:59 08/31/20 18:11 Levothyroxine Sodium (Synthroid) 100 mcg DAILY@0630 ORAL 09/02/20 06:30 10/02/20 06:29 09/02/20 06:17 Metoclopramide HCl (Reglan) 5 mg THREE TIMES A DAY ORAL 08/31/20 13:00 09/30/20 12:59 09/02/20 13:44 Morphine Sulfate (Morphine Sulfate) 2 mg Q4H PRN IVP For Pain 09/01/20 02:50 09/08/20 02:59 09/01/20 03:04 Ondansetron HCl (Zofran) 4 mg Q6H PRN IVP Nausea & Vomiting 08/30/20 23:45 09/29/20 23:44 Pantoprazole (Protonix) 40 mg EVERY 12 HOURS ORAL 08/31/20 21:00 09/30/20 20:59 09/02/20 09:08 Polyethylene Glycol (Miralax) 17 gm DAILYPRN PRN ORAL Constipation 08/30/20 23:45 09/29/20 23:44 Promethazine HCl/ Codeine (Phenergan with Codeine) 5 ml Q6H PRN ORAL cough 08/30/20 23:45 09/29/20 23:44 Assessment/Plan Problem List: (1) Acute on chronic diastolic (congestive) heart failure ICD Codes: I50.33 - Acute on chronic diastolic (congestive) heart failure SNOMED: 212164926, 070561402 (2) Anemia ICD Codes: D64.9 - Anemia, unspecified SNOMED: 739610719 (3) Acute respiratory failure Assessment & Plan: Large right pleural effusion persists, unchanged. Bilateral interstitial and airspace edema, cardiomegaly persists, probably unchanged allowing for differences in technique and inspiration ICD Codes: J96.00 - Acute respiratory failure, unspecified whether with hypoxia or hypercapnia SNOMED: 28792792 (4) ACS (acute coronary syndrome) ICD Codes: I24.9 - Acute ischemic heart disease, unspecified SNOMED: 542887172 (5) History of hypertension ICD Codes: Z86.79 - Personal history of other diseases of the circulatory system SNOMED: 626532235 (6) Moderate pulmonary arterial systolic hypertension ICD Codes: I27.21 - Secondary pulmonary arterial hypertension SNOMED: 44096355 (7) Left bundle branch block (LBBB) ICD Codes: I44.7 - Left bundle-branch block, unspecified SNOMED: 26910958 (8) Diabetes mellitus ICD Codes: E11.9 - Type 2 diabetes mellitus without complications SNOMED: 63007620 (9) Diabetic nephropathy ICD Codes: E11.21 - Type 2 diabetes mellitus with diabetic nephropathy SNOMED: 534695779 (10) Renal failure (ARF), acute on chronic ICD Codes: N17.9 - Acute kidney failure, unspecified; N18.9 - Chronic kidney disease, unspecified SNOMED: 376737173 (11) Hyperkalemia ICD Codes: E87.5 - Hyperkalemia SNOMED: 05199921 (12) Bacteremia ICD Codes: R78.81 - Bacteremia SNOMED: 7834835 (13) CAD (coronary artery disease) ICD Codes: I25.10 - Atherosclerotic heart disease of [place] coronary artery without angina pectoris SNOMED: 37408243 (14) Hypothyroidism ICD Codes: E03.9 - Hypothyroidism, unspecified SNOMED: 90333249 (15) Cardiac left ventricular ejection fraction greater than 40 percent ICD Codes: R94.30 - Abnormal result of cardiovascular function study, unspecified SNOMED: 267203976 (16) Grade I diastolic dysfunction ICD Codes: I51.9 - Heart disease, unspecified SNOMED: 6958892 (17) UTI (urinary tract infection) ICD Codes: N39.0 - Urinary tract infection, site not specified SNOMED: 27542258 (18) Ulcers of both lower legs ICD Codes: L97.919 - Non-pressure chronic ulcer of unspecified part of right lower leg with unspecified severity; L97.929 - Non-pressure chronic ulcer of unspecified part of left lower leg with unspecified severity SNOMED: 63164007, 009236489 (19) Open wounds involving multiple regions of lower extremity Assessment & Plan: Patient identified admission having bilateral lower extremity edema open wounds as well as necrotic ulcerations. Patient states she has had this for some time now and acutely worsening as well. Bilateral lower leg wounds do to blisters from edema. Right medial lower leg wound 2.1x4.2x0.2 dark brown scab . Right anterior lower leg wound 5.6x5.3x0.2 pink wound bed. Right distal anterior lower leg 4.0x6.0x0.2 pink wound bed . Large amount serous drainage right leg wounds , Xeroform ,gauze,abd pad and kerlix applied change every shift. Left lower leg wound 3.7x5.0x0.3 100% green slough large amount serous drainage noted with small blisters ifeoma wound, Thera Honey, gauze,abd pad and kerlix applied, change every shift. Local wound care plan initiate Nutritional optimization Turn every 2 hours Elevate extremities Thank you will follow recommendations Right deep veins: Unremarkable. No DVT in the right common femoral, femoral, proximal deep femoral or popliteal veins. The veins demonstrate normal color flow, are normally compressible, with normal phasic flow and/or augmentation response. Right superficial veins: Unremarkable. No thrombus in the visualized right great saphenous vein. Left deep veins: Unremarkable. No DVT in the left common femoral, femoral, proximal deep femoral or popliteal veins. The veins demonstrate normal color flow, are normally compressible, with normal phasic flow and/or augmentation response. Left superficial veins: Unremarkable. No thrombus in the visualized left great saphenous vein. Soft tissues: No acute findings. No popliteal cyst. IMPRESSION: Normal bilateral lower extremity duplex venous ultrasound. DAILY ESTIMATED NEEDS: Needs based on ARF, now HD 65.7kg abw 25-30 kcals/kg [id number] total kcals 1.25-1.8 g protein/kg 82-118 g total protein Fluid per MD, HD pending NUTRITION DIAGNOSIS: Increased pro needs r/t renal dysfunction as evidenced by pt w/ ARF, w/ now pending HD, K on adm (5.8), elev BUN (81), elev Creat (3.8), elev phos and mg. CURRENT DIET:Renal/ CCHO MED PO DIET RECOMMENDATIONS: Renal / CCHO LOW diet + high pro snacks in b/w meals ADDITIONAL RECOMMENDATIONS: 1) Maintain calibrated bed scale wts 2) High pro snacks in b/w meals 3) Rec WC eval-> add nephrovite 1 tab daily Vit C per nephro ICD Codes: S81.809A - Unspecified open wound, unspecified lower leg, initial encounter SNOMED: 610741368 Omar Tellez Sep 02, 2020 14:25
[2020-09-02 16:00] VITALS: BP 150/77
[2020-09-02 17:09] LABS: INR 1.2 (0.9-1.1)
[2020-09-02 18:22] LABS: CREATININE 3.8 MG/DL (0.55-1.30)
[2020-09-02 20:00] VITALS: BP 158/99
[2020-09-03] VITALS: BP 146/86
[2020-09-03 04:00] VITALS: BP 162/77
[2020-09-03] MEDS: HydrALAZINE 25mg tab ORAL SCH ×3 (05:57→21:27)
[2020-09-03] MEDS: NovoLOG Insulin Flexpen SUBQ SCH ×4 (06:05→22:07)
[2020-09-03 07:31] LABS: HEMATOCRIT 29.7 % (37.0-47.0); HEMOGLOBIN 8.9 G/DL (12.0-16.0); MEAN CORPUSCULAR VOLUME 97 FL (80-99); PLATELET COUNT 151 K/UL (150-450); RED BLOOD COUNT 3.08 M/UL (4.20-5.40); RED CELL DISTRIBUTION WIDTH 17.6 % (11.6-14.8)
[2020-09-03 07:45] LABS: CALCIUM 8.1 MG/DL (8.5-10.1); POTASSIUM 3.8 MMOL/L (3.5-5.1)
[2020-09-03 08:00] VITALS: BP 134/68
[2020-09-03 08:08] LABS: ALANINE AMINOTRANSFERASE 15 U/L (12-78); ALBUMIN 2.5 G/DL (3.4-5.0); ALKALINE PHOSPHATASE 163 U/L (46-116); ASPARTATE AMINO TRANSFERASE 18 U/L (15-37); BILIRUBIN,DIRECT 0.3 MG/DL (0.0-0.3); BILIRUBIN,TOTAL 0.6 MG/DL (0.2-1.0)
--- NOTE | 2020-09-03 08:46 | Nephrology Progress Note ---
Assessment/Plan Problem List: (1) Renal failure (ARF), acute on chronic (2) Hyperkalemia (3) Hypothyroidism (4) Acute on chronic diastolic (congestive) heart failure (5) Diabetic nephropathy (6) Pneumonia Assessment: Leukocytosis, abnormal chest x-ray (7) Anemia Assessment 1) Renal failure (ARF), acute on chronic (2) Diabetes mellitus (3) Hypoglycemia (4) Hyperkalemia (5) Diabetic nephropathy (6) H/o Pleural effusion (7) Morbid obesity (8) Low Iron Anemia (9) HypoThyroidism Plan September 03: The 24-hour urine results appears to be an error in view of total volume compared to intake and output records. Today's labs reviewed. Serum creatinine higher. Talk to the nursing charge of the floor and will order another 24-hour urine collection. Meanwhile continue per ID treatment for UTI and leukocytosis. Dexamethasone on the medication list was questioned. Patient may require dialysis if continues to have worsening renal parameters. September 02: Consent for dialysis catheter is taken. Catheter placement deferred due to leukocytosis. Surveillance blood culture ordered. Urine culture ordered. Blood pressure medication adjusted. 24-hour urine for creatinine clearance and total protein pending. Previously: Chan Cath 24 H CrCl and total protein ordered Off IV fluids, on IV Lasix Adjust BP meds Previous 2D echocardiogram ejection fraction is reported to 50% Previous Kidney ultrasound noted. Current kidney ultrasound results below Anemia work-up As needed Kayexalate for high potassium Keep blood pressure and blood sugar in check Monitor renal parameters Requires HD treatment [facility] KIDNEY IMPRESSION: 1. Ascites. 2. Bilateral pleural effusions. 3. Complex right renal cysts of uncertain etiology. This complex cyst is unchanged from the study of 01/12/2020. 4. Mildly atrophic right kidney. 5. Magnetic resonance imaging of the abdomen with gadolinium administration is advised for further evaluation of complex right renal cyst. Subjective ROS Limited/Unobtainable: No Constitutional: Reports: malaise, weakness Objective Objective Last 24 Hour Vital Signs Date Time Temp Pulse Resp B/P (MAP) Pulse Ox O2 Delivery O2 Flow Rate FiO2 09/03/20 05:57 162/67 09/03/20 04:00 96.9 72 22 162/77 (105) 100 09/03/20 04:00 73 09/03/20 00:00 73 09/03/20 00:00 97.1 73 20 146/86 (106) 99 09/02/20 21:14 158/99 09/02/20 21:00 Nasal Cannula 2.0 Nasal Cannula 2.0 09/02/20 20:00 73 09/02/20 20:00 96.8 72 22 158/99 (118) 100 09/02/20 19:04 98 Nasal Cannula 2.0 28 09/02/20 19:04 70 18 98 Nasal Cannula 2.0 28 09/02/20 16:00 67 09/02/20 16:00 96.8 67 20 150/77 (101) 98 09/02/20 13:45 155/82 09/02/20 12:00 71 09/02/20 12:00 97.2 71 22 131/68 (89) 98 09/02/20 09:00 Nasal Cannula 2.0 Nasal Cannula 2.0 Intake and Output 09/02/20 09/03/20 19:00 07:00 Intake Total 690 ml 100 ml Output Total 250 ml 500 ml Balance 440 ml -400 ml Intake Oral 690 ml 100 ml Output Urine Total 250 ml 500 ml # Bowel Movements 1 2 Current Medications Medications (Trade) Dose Ordered Sig/Braeden Route PRN Reason Start Time Stop Time Status Last Admin Dose Admin Acetaminophen (Tylenol) 650 mg Q4H PRN ORAL FEVER 08/30/20 23:45 09/29/20 23:44 Albuterol/ Ipratropium (Albuterol/ Ipratropium) 3 ml Q4H PRN HHN Shortness of Breath 08/30/20 23:45 09/04/20 23:44 Allopurinol (allopurinoL) 300 mg DAILY ORAL 08/31/20 09:00 09/30/20 08:59 09/02/20 09:08 Ceftaroline Fosamil 200 mg/ Sodium Chloride 55 ml @ 55 mls/hr EVERY 12 HOURS IV 08/31/20 20:00 09/07/20 19:59 09/02/20 21:14 Dexamethasone (Decadron) 4 mg DAILY ORAL 08/31/20 09:00 09/09/20 08:59 09/02/20 09:08 Dextrose (Dextrose 50%) 25 ml Q30M PRN IV Hypoglycemia 08/30/20 23:45 11/28/20 23:44 Dextrose (Dextrose 50%) 50 ml Q30M PRN IV Hypoglycemia 08/30/20 23:45 11/28/20 23:44 Folic Acid (Folate) 3 mg DAILY ORAL 09/02/20 09:00 10/02/20 08:59 09/02/20 09:08 Furosemide (Lasix) 80 mg EVERY 12 HOURS IV 09/02/20 21:00 09/30/20 20:59 09/02/20 21:13 Gabapentin (Neurontin) 300 mg DAILY ORAL 08/31/20 09:00 09/30/20 08:59 09/02/20 09:09 Heparin Sodium (Porcine) (Heparin 5000 units/ml) 5,000 units EVERY 12 HOURS SUBQ 08/31/20 09:00 10/15/20 08:59 09/01/20 21:22 Hydralazine HCl (Apresoline) 75 mg Q8HR ORAL 09/02/20 14:00 11/29/20 00:00 09/03/20 05:57 Insulin Aspart (NovoLOG) BEFORE MEALS AND HS SUBQ 08/31/20 06:30 11/29/20 06:29 09/03/20 06:05 Levofloxacin 150 ml @ 100 mls/hr Q48H IVPB 08/31/20 18:00 09/07/20 17:59 09/02/20 16:54 Levothyroxine Sodium (Synthroid) 100 mcg DAILY@0630 ORAL 09/02/20 06:30 10/02/20 06:29 09/03/20 05:57 Metoclopramide HCl (Reglan) 5 mg THREE TIMES A DAY ORAL 08/31/20 13:00 09/30/20 12:59 09/02/20 16:54 Morphine Sulfate (Morphine Sulfate) 2 mg Q4H PRN IVP For Pain 09/01/20 02:50 09/08/20 02:59 09/01/20 03:04 Ondansetron HCl (Zofran) 4 mg Q6H PRN IVP Nausea & Vomiting 08/30/20 23:45 09/29/20 23:44 Pantoprazole (Protonix) 40 mg EVERY 12 HOURS ORAL 08/31/20 21:00 09/30/20 20:59 09/02/20 21:13 Polyethylene Glycol (Miralax) 17 gm DAILYPRN PRN ORAL Constipation 08/30/20 23:45 09/29/20 23:44 Promethazine HCl/ Codeine (Phenergan with Codeine) 5 ml Q6H PRN ORAL cough 08/30/20 23:45 09/29/20 23:44 Laboratory Tests 09/02/20 10:52: POC Whole Blood Glucose 242H 09/02/20 15:59: POC Whole Blood Glucose 231H 09/02/20 16:30: Prothrombin Time 13.4H, Prothromb Time International Ratio 1.2H, Activated Partial Thromboplast Time 26 09/02/20 18:00: Creatinine 3.8H, Estimat Glomerular Filtration Rate 11.8 09/02/20 22:08: POC Whole Blood Glucose 258H 09/03/20 06:03: POC Whole Blood Glucose 163H 09/03/20 06:20: White Blood Count 14.0H, Red Blood Count 3.08L, Hemoglobin 8.9L, Hematocrit 29.7L, Mean Corpuscular Volume 97, Mean Corpuscular Hemoglobin 29.0, Mean Corpuscular Hemoglobin Concent 30.1L, Red Cell Distribution Width 17.6H, Platelet Count 151, Mean Platelet Volume 8.0, Neutrophils (%) (Auto) , Lymphocytes (%) (Auto) , Monocytes (%) (Auto) , Eosinophils (%) (Auto) , Basop hils (%) (Auto) , Neutrophils % (Manual) [Pending], Lymphocytes % (Manual) [Pending], Platelet Estimate [Pending], Platelet Morphology [Pending], Sodium Level 139, Potassium Level 3.8, Chloride Level 104, Carbon Dioxide Level 22, Anion Gap 13, Blood Urea Nitrogen 87H, Creatinine 4.0H, Estimat Glomerular Filtration Rate 11.1, Glucose Level 161H, Calcium Level 8.1L, Phosphorus Level 6.0H, Magnesium Level 2.5H, Total Bilirubin 0.6, Direct Bilirubin 0.3, Aspartate Amino Transf (AST/SGOT) 18, Alanine Aminotransferase (ALT/SGPT) 15, Alkaline Phosphatase 163H, Total Protein 6.9, Albumin 2.5L Height (Feet): 5 Height (Inches): 10.00 Weight (Pounds): 218 General Appearance: no apparent distress, lethargic Cardiovascular: normal rate Respiratory/Chest: decreased breath sounds Abdomen: distended Jay Severino MD Sep 03, 2020 08:46
[2020-09-03] MEDS: Heparin 5000 units/ml inj SUBQ SCH ×2 (09:00→21:30)
--- NOTE | 2020-09-03 09:15 | General Progress Note ---
Subjective Constitutional: Reports: weakness Respiratory: Reports: shortness of breath Allergies: Coded Allergies: No Known Allergies (Unverified , 10/10/19) All Systems: reviewed and negative except above Subjective o2nc calm Objective Last 24 Hour Vital Signs Date Time Temp Pulse Resp B/P (MAP) Pulse Ox O2 Delivery O2 Flow Rate FiO2 09/03/20 05:57 162/67 09/03/20 04:00 96.9 72 22 162/77 (105) 100 09/03/20 04:00 73 09/03/20 00:00 73 09/03/20 00:00 97.1 73 20 146/86 (106) 99 09/02/20 21:14 158/99 09/02/20 21:00 Nasal Cannula 2.0 Nasal Cannula 2.0 09/02/20 20:00 73 09/02/20 20:00 96.8 72 22 158/99 (118) 100 09/02/20 19:04 98 Nasal Cannula 2.0 28 09/02/20 19:04 70 18 98 Nasal Cannula 2.0 28 09/02/20 16:00 67 09/02/20 16:00 96.8 67 20 150/77 (101) 98 09/02/20 13:45 155/82 09/02/20 12:00 71 09/02/20 12:00 97.2 71 22 131/68 (89) 98 Intake and Output 09/02/20 09/03/20 19:00 07:00 Intake Total 690 ml 100 ml Output Total 250 ml 500 ml Balance 440 ml -400 ml Intake Oral 690 ml 100 ml Output Urine Total 250 ml 500 ml # Bowel Movements 1 2 Laboratory Tests 09/02/20 10:52: POC Whole Blood Glucose 242H 09/02/20 15:59: POC Whole Blood Glucose 231H 09/02/20 16:30: Prothrombin Time 13.4H, Prothromb Time International Ratio 1.2H, Activated Partial Thromboplast Time 26 09/02/20 18:00: Creatinine 3.8H, Estimat Glomerular Filtration Rate 11.8 09/02/20 22:08: POC Whole Blood Glucose 258H 09/03/20 06:03: POC Whole Blood Glucose 163H 09/03/20 06:20: White Blood Count 14.0H, Red Blood Count 3.08L, Hemoglobin 8.9L, Hematocrit 29.7L, Mean Corpuscular Volume 97, Mean Corpuscular Hemoglobin 29.0, Mean Corpuscular Hemoglobin Concent 30.1L, Red Cell Distribution Width 17.6H, Platelet Count 151, Mean Platelet Volume 8.0, Neutrophils (%) (Auto) , Lymphoc ytes (%) (Auto) , Monocytes (%) (Auto) , Eosinophils (%) (Auto) , Basophils (%) (Auto) , Neutrophils % (Manual) [Pending], Lymphocytes % (Manual) [Pending], Platelet Estimate [Pending], Platelet Morphology [Pending], Sodium Level 139, Potassium Level 3.8, Chloride Level 104, Carbon Dioxide Level 22, Anion Gap 13, Blood Urea Nitrogen 87H, Creatinine 4.0H, Estimat Glomerular Filtration Rate 11.1, Glucose Level 161H, Calcium Level 8.1L, Phosphorus Level 6.0H, Magnesium Level 2.5H, Total Bilirubin 0.6, Direct Bilirubin 0.3, Aspartate Amino Transf (AST/SGOT) 18, Alanine Aminotransferase (ALT/SGPT) 15, Alkaline Phosphatase 163H , Total Protein 6.9, Albumin 2.5L Height (Feet): 5 Height (Inches): 10.00 Weight (Pounds): 218 General Appearance: lethargic EENT: normal ENT inspection Neck: normal alignment Cardiovascular: normal peripheral pulses, normal rate, regular rhythm Respiratory/Chest: chest wall non-tender, lungs clear, normal breath sounds Abdomen: normal bowel sounds, non tender, soft Extremities: normal inspection Edema: 1+ Arm (L), 1+ Arm (R), 1+ Leg (L), 1+ Leg (R), 1+ Pedal (L), 1+ Pedal (R), 1+ Generalized Edema: trace edema Neurologic: motor weakness Skin: normal pigmentation, warm/dry Assessment/Plan Problem List: (1) UTI (urinary tract infection) ICD Codes: N39.0 - Urinary tract infection, site not specified SNOMED: 20274138 (2) Acute respiratory failure ICD Codes: J96.00 - Acute respiratory failure, unspecified whether with hypoxia or hypercapnia SNOMED: 00099369 (3) History of hypertension ICD Codes: Z86.79 - Personal history of other diseases of the circulatory system SNOMED: 689741160 (4) Diabetes mellitus ICD Codes: E11.9 - Type 2 diabetes mellitus without complications SNOMED: 67805670 (5) Renal failure (ARF), acute on chronic ICD Codes: N17.9 - Acute kidney failure, unspecified; N18.9 - Chronic kidney disease, unspecified SNOMED: 916331441 Status: unchanged Assessment/Plan: o2 pulm tx abx pt diet cbc bmp am aru Dyllan Gonzalez DO Sep 03, 2020 09:15
--- NOTE | 2020-09-03 09:21 | Infectious Diseases Prog Note ---
Assessment/Plan Assessment: Severe Sepsis Pneumonia Acute hypoxic resp failure- on 2l NC R pleural effusion -09/01 Chest US: Positive for right pleural effusion Incidental finding of ascites, also previously reporte -08/30 CXR: There is again patchy ill-defined airspace opacities at the right greater than left base with some consolidated appearance again seen on the right. There is now patchy ill-defined opacity at the right upper lung. A small right pleural effusion is suggested. The patient is rotated to the right. Status post median sternotomy again noted. -08/30 & rapid covid PCR neg x2 Ro probable bacteremia -08/30 Bcx NTD (-prelim per micro lab) Afebrile Leukocytosis, improving -08/31 u/a no pyuria R arm and R leg cellulitis Recent hx of COVID19- pt clarified initial diagnosis was 2 months ago and not 08/25 as per documentation on EMR. VENANCIO on CKD -REnal US: Ascites. Bilateral pleural effusions. Complex right renal cysts of uncertain etiology. This complex cyst is unchanged from the study of 01/12/2020. Mildly atrophic right kidney.Magnetic resonance imaging of the abdomen with gadolinium administration is advised for further evaluation of complex right renal cyst. HTN dCHF pHTN ascites chronic LE edema DM2 c/w neuropathy iron def anemia Plan: -Continue empiric Teflaro and LEvaquin #4 (abx d #5) -08/31 SP Ceftriaxone #2, Azithromcyin #2 -f/u cx -Monitor CBC/CMP, temperatures -aspiration precautions -REnal f.u Thank you for consulting [facility]. Will continue to follow along with you. Discussed with RN and Dr Treviño. Subjective Allergies: Coded Allergies: No Known Allergies (Unverified , 10/10/19) afebrile wbc improving Cr increased Objective Last 24 Hour Vital Signs Date Time Temp Pulse Resp B/P (MAP) Pulse Ox O2 Delivery O2 Flow Rate FiO2 09/03/20 05:57 162/67 09/03/20 04:00 96.9 72 22 162/77 (105) 100 09/03/20 04:00 73 09/03/20 00:00 73 09/03/20 00:00 97.1 73 20 146/86 (106) 99 09/02/20 21:14 158/99 09/02/20 21:00 Nasal Cannula 2.0 Nasal Cannula 2.0 09/02/20 20:00 73 09/02/20 20:00 96.8 72 22 158/99 (118) 100 09/02/20 19:04 98 Nasal Cannula 2.0 28 09/02/20 19:04 70 18 98 Nasal Cannula 2.0 28 09/02/20 16:00 67 09/02/20 16:00 96.8 67 20 150/77 (101) 98 09/02/20 13:45 155/82 09/02/20 12:00 71 09/02/20 12:00 97.2 71 22 131/68 (89) 98 Height (Feet): 5 Height (Inches): 10.00 Weight (Pounds): 218 GENERAL: Calm in bed, oriented x3, slight short of breath. CARDIOVASCULAR: No murmur. LUNGS: Poor exchange. ABDOMEN: Bowel sounds distant. EXTREMITIES: No cyanosis, clubbing, or edema. NEUROLOGIC: The patient moves all extremities, slightly weak. Microbiology Date/Time Source Procedure Growth Status 09/01/20 14:08 Nasopharynx - Final Complete 09/01/20 14:08 Nasopharynx - Final Complete 08/31/20 15:32 Nasopharynx SARS-CoV-2 RdRp Gene Assay - Final Complete Laboratory Tests Test 09/02/20 10:52 09/02/20 15:59 09/02/20 16:30 09/02/20 18:00 POC Whole Blood Glucose 242 MG/DL (74-106) H 231 MG/DL (74-106) H Prothrombin Time 13.4 SEC (9.30-11.50) H Prothromb Time International Ratio 1.2 (0.9-1.1) H Activated Partial Thromboplast Time 26 SEC (23-33) Creatinine 3.8 MG/DL (0.55-1.30) H Estimat Glomerular Filtration Rate 11.8 mL/min (>60) Test 09/02/20 22:08 09/03/20 06:03 09/03/20 06:20 POC Whole Blood Glucose 258 MG/DL (74-106) H 163 MG/DL (74-106) H White Blood Count 14.0 K/UL (4.8-10.8) H Red Blood Count 3.08 M/UL (4.20-5.40) L Hemoglobin 8.9 G/DL (12.0-16.0) L Hematocrit 29.7 % (37.0-47.0) L Mean Corpuscular Volume 97 FL (80-99) Mean Corpuscular Hemoglobin 29.0 PG (27.0-31.0) Mean Corpuscular Hemoglobin Concent 30.1 G/DL (32.0-36.0) L Red Cell Distribution Width 17.6 % (11.6-14.8) H Platelet Count 151 K/UL (150-450) Mean Platelet Volume 8.0 FL (6.5-10.1) Neutrophils (%) (Auto) % (45.0-75.0) Lymphocytes (%) (Auto) % (20.0-45.0) Monocytes (%) (Auto) % (1.0-10.0) Eosinophils (%) (Auto) % (0.0-3.0) Basophils (%) (Auto) % (0.0-2.0) Neutrophils % (Manual) Pending Lymphocytes % (Manual) Pending Platelet Estimate Pending Platelet Morphology Pending Sodium Level 139 MMOL/L (136-145) Potassium Level 3.8 MMOL/L (3.5-5.1) Chloride Level 104 MMOL/L (98-107) Carbon Dioxide Level 22 MMOL/L (21-32) Anion Gap 13 mmol/L (5-15) Blood Urea Nitrogen 87 mg/dL (7-18) H Creatinine 4.0 MG/DL (0.55-1.30) H Estimat Glomerular Filtration Rate 11.1 mL/min (>60) Glucose Level 161 MG/DL (74-106) H Calcium Level 8.1 MG/DL (8.5-10.1) L Phosphorus Level 6.0 MG/DL (2.5-4.9) H Magnesium Level 2.5 MG/DL (1.8-2.4) H Total Bilirubin 0.6 MG/DL (0.2-1.0) Direct Bilirubin 0.3 MG/DL (0.0-0.3) Aspartate Amino Transf (AST/SGOT) 18 U/L (15-37) Alanine Aminotransferase (ALT/SGPT) 15 U/L (12-78) Alkaline Phosphatase 163 U/L (46-116) H Total Protein 6.9 G/DL (6.4-8.2) Albumin 2.5 G/DL (3.4-5.0) L Current Medications Medications (Trade) Dose Ordered Sig/Braeden Route PRN Reason Start Time Stop Time Status Last Admin Dose Admin Acetaminophen (Tylenol) 650 mg Q4H PRN ORAL FEVER 08/30/20 23:45 09/29/20 23:44 Albuterol/ Ipratropium (Albuterol/ Ipratropium) 3 ml Q4H PRN HHN Shortness of Breath 08/30/20 23:45 09/04/20 23:44 Allopurinol (allopurinoL) 300 mg DAILY ORAL 08/31/20 09:00 09/30/20 08:59 09/02/20 09:08 Ceftaroline Fosamil 200 mg/ Sodium Chloride 55 ml @ 55 mls/hr EVERY 12 HOURS IV 08/31/20 20:00 09/07/20 19:59 09/02/20 21:14 Dextrose (Dextrose 50%) 25 ml Q30M PRN IV Hypoglycemia 08/30/20 23:45 11/28/20 23:44 Dextrose (Dextrose 50%) 50 ml Q30M PRN IV Hypoglycemia 08/30/20 23:45 11/28/20 23:44 Folic Acid (Folate) 3 mg DAILY ORAL 09/02/20 09:00 10/02/20 08:59 09/02/20 09:08 Furosemide (Lasix) 80 mg EVERY 12 HOURS IV 09/02/20 21:00 09/30/20 20:59 09/02/20 21:13 Gabapentin (Neurontin) 300 mg DAILY ORAL 08/31/20 09:00 09/30/20 08:59 09/02/20 09:09 Heparin Sodium (Porcine) (Heparin 5000 units/ml) 5,000 units EVERY 12 HOURS SUBQ 08/31/20 09:00 10/15/20 08:59 09/01/20 21:22 Hydralazine HCl (Apresoline) 75 mg Q8HR ORAL 09/02/20 14:00 11/29/20 00:00 09/03/20 05:57 Insulin Aspart (NovoLOG) BEFORE MEALS AND HS SUBQ 08/31/20 06:30 11/29/20 06:29 09/03/20 06:05 Levofloxacin 150 ml @ 100 mls/hr Q48H IVPB 08/31/20 18:00 09/07/20 17:59 09/02/20 16:54 Levothyroxine Sodium (Synthroid) 100 mcg DAILY@0630 ORAL 09/02/20 06:30 10/02/20 06:29 09/03/20 05:57 Metoclopramide HCl (Reglan) 5 mg THREE TIMES A DAY ORAL 08/31/20 13:00 09/30/20 12:59 09/02/20 16:54 Morphine Sulfate (Morphine Sulfate) 2 mg Q4H PRN IVP For Pain 09/01/20 02:50 09/08/20 02:59 09/01/20 03:04 Ondansetron HCl (Zofran) 4 mg Q6H PRN IVP Nausea & Vomiting 08/30/20 23:45 09/29/20 23:44 Pantoprazole (Protonix) 40 mg EVERY 12 HOURS ORAL 08/31/20 21:00 09/30/20 20:59 09/02/20 21:13 Polyethylene Glycol (Miralax) 17 gm DAILYPRN PRN ORAL Constipation 08/30/20 23:45 09/29/20 23:44 Promethazine HCl/ Codeine (Phenergan with Codeine) 5 ml Q6H PRN ORAL cough 08/30/20 23:45 09/29/20 23:44 Marielena Etienne M.D. Sep 03, 2020 09:21
[2020-09-03] MEDS: Ceftaroline 200 MG in NS 55 ML IV SCH (10:32)
--- NOTE | 2020-09-03 11:23 | Pulmonology Progress Note ---
Subjective ROS Limited/Unobtainable: No Constitutional: Reports: no symptoms HEENT: Repors: no symptoms Respiratory: Reports: no symptoms Allergies: Coded Allergies: No Known Allergies (Unverified , 10/10/19) All Systems: reviewed and negative except above Objective Last 24 Hour Vital Signs Date Time Temp Pulse Resp B/P (MAP) Pulse Ox O2 Delivery O2 Flow Rate FiO2 09/03/20 08:00 74 09/03/20 08:00 98.7 91 19 134/68 (90) 98 09/03/20 05:57 162/67 09/03/20 04:00 96.9 72 22 162/77 (105) 100 09/03/20 04:00 73 09/03/20 00:00 73 09/03/20 00:00 97.1 73 20 146/86 (106) 99 09/02/20 21:14 158/99 09/02/20 21:00 Nasal Cannula 2.0 Nasal Cannula 2.0 09/02/20 20:00 73 09/02/20 20:00 96.8 72 22 158/99 (118) 100 09/02/20 19:04 98 Nasal Cannula 2.0 28 09/02/20 19:04 70 18 98 Nasal Cannula 2.0 28 09/02/20 16:00 67 09/02/20 16:00 96.8 67 20 150/77 (101) 98 09/02/20 13:45 155/82 09/02/20 12:00 71 09/02/20 12:00 97.2 71 22 131/68 (89) 98 Intake and Output 09/02/20 09/03/20 19:00 07:00 Intake Total 690 ml 100 ml Output Total 250 ml 500 ml Balance 440 ml -400 ml Intake Oral 690 ml 100 ml Output Urine Total 250 ml 500 ml # Bowel Movements 1 2 General Appearance: WD/WN HEENT: normocephalic, atraumatic Respiratory: chest wall non-tender, lungs clear Breasts: no masses Cardiovascular: normal peripheral pulses Abdomen: normal bowel sounds, soft, non tender Genitourinary: normal external genitalia Extremities: no clubbing Neurologic: ultrasound spec II-XII grossly normal Microbiology Date/Time Source Procedure Growth Status 09/01/20 14:08 Nasopharynx - Final Complete 09/01/20 14:08 Nasopharynx - Final Complete 08/31/20 15:32 Nasopharynx SARS-CoV-2 RdRp Gene Assay - Final Complete Laboratory Tests 09/02/20 15:59: POC Whole Blood Glucose 231H 09/02/20 16:30: Prothrombin Time 13.4H, Prothromb Time International Ratio 1.2H, Activated Partial Thromboplast Time 26 09/02/20 18:00: Creatinine 3.8H, Estimat Glomerular Filtration Rate 11.8 09/02/20 22:08: POC Whole Blood Glucose 258H 09/03/20 06:03: POC Whole Blood Glucose 163H 09/03/20 06:20: White Blood Count 14.0H, Red Blood Count 3.08L, Hemoglobin 8.9L, Hematocrit 29.7L, Mean Corpuscular Volume 97, Mean Corpuscular Hemoglobin 29.0, Mean Corpuscular Hemoglobin Concent 30.1L, Red Cell Distribution Width 17.6H, Pl atelet Count 151, Mean Platelet Volume 8.0, Neutrophils (%) (Auto) , Lymphocytes (%) (Auto) , Monocytes (%) (Auto) , Eosinophils (%) (Auto) , Basophils (%) (Auto) , Neutrophils % (Manual) [Pending], Lymphocytes % (Manual) [Pending], Platelet Estimate [Pending], Platelet Morphology [Pending], Sodium Level 139, Potassium Level 3.8, Chloride Level 104, Carbon Dioxide Level 22, Anion Gap 13, Blood Urea Nitrogen 87H, Creatinine 4.0H, Estimat Glomerular Filtration Rate 11 .1, Glucose Level 161H, Calcium Level 8.1L, Phosphorus Level 6.0H, Magnesium Level 2.5H, Total Bilirubin 0.6, Direct Bilirubin 0.3, Aspartate Amino Transf (AST/SGOT) 18, Alanine Aminotransferase (ALT/SGPT) 15, Alkaline Phosphatase 163H , Total Protein 6.9, Albumin 2.5L Current Medications Medications (Trade) Dose Ordered Sig/Braeden Route PRN Reason Start Time Stop Time Status Last Admin Dose Admin Acetaminophen (Tylenol) 650 mg Q4H PRN ORAL FEVER 08/30/20 23:45 09/29/20 23:44 Albuterol/ Ipratropium (Albuterol/ Ipratropium) 3 ml Q4H PRN HHN Shortness of Breath 08/30/20 23:45 09/04/20 23:44 Allopurinol (allopurinoL) 300 mg DAILY ORAL 08/31/20 09:00 09/30/20 08:59 09/03/20 09:15 Ceftaroline Fosamil 200 mg/ Sodium Chloride 55 ml @ 55 mls/hr EVERY 12 HOURS IV 08/31/20 20:00 09/07/20 19:59 09/03/20 10:32 Dextrose (Dextrose 50%) 25 ml Q30M PRN IV Hypoglycemia 08/30/20 23:45 11/28/20 23:44 Dextrose (Dextrose 50%) 50 ml Q30M PRN IV Hypoglycemia 08/30/20 23:45 11/28/20 23:44 Folic Acid (Folate) 3 mg DAILY ORAL 09/02/20 09:00 10/02/20 08:59 09/03/20 09:19 Furosemide (Lasix) 80 mg EVERY 12 HOURS IV 09/02/20 21:00 09/30/20 20:59 09/03/20 09:20 Gabapentin (Neurontin) 300 mg DAILY ORAL 08/31/20 09:00 09/30/20 08:59 09/03/20 09:15 Heparin Sodium (Porcine) (Heparin 5000 units/ml) 5,000 units EVERY 12 HOURS SUBQ 08/31/20 09:00 10/15/20 08:59 09/01/20 21:22 Hydralazine HCl (Apresoline) 75 mg Q8HR ORAL 09/02/20 14:00 11/29/20 00:00 09/03/20 05:57 Insulin Aspart (NovoLOG) BEFORE MEALS AND HS SUBQ 08/31/20 06:30 11/29/20 06:29 09/03/20 06:05 Levofloxacin 150 ml @ 100 mls/hr Q48H IVPB 08/31/20 18:00 09/07/20 17:59 09/02/20 16:54 Levothyroxine Sodium (Synthroid) 100 mcg DAILY@0630 ORAL 09/02/20 06:30 10/02/20 06:29 09/03/20 05:57 Metoclopramide HCl (Reglan) 5 mg THREE TIMES A DAY ORAL 08/31/20 13:00 09/30/20 12:59 09/03/20 09:23 Morphine Sulfate (Morphine Sulfate) 2 mg Q4H PRN IVP For Pain 09/01/20 02:50 09/08/20 02:59 09/01/20 03:04 Ondansetron HCl (Zofran) 4 mg Q6H PRN IVP Nausea & Vomiting 08/30/20 23:45 09/29/20 23:44 Pantoprazole (Protonix) 40 mg EVERY 12 HOURS ORAL 08/31/20 21:00 09/30/20 20:59 09/03/20 09:19 Polyethylene Glycol (Miralax) 17 gm DAILYPRN PRN ORAL Constipation 08/30/20 23:45 09/29/20 23:44 Promethazine HCl/ Codeine (Phenergan with Codeine) 5 ml Q6H PRN ORAL cough 08/30/20 23:45 09/29/20 23:44 Assessment/Plan Problems: (1) Acute on chronic diastolic (congestive) heart failure (2) Renal failure (ARF), acute on chronic (3) Diabetes mellitus (4) Left bundle branch block (LBBB) (5) Cardiac left ventricular ejection fraction greater than 40 percent (6) Grade I diastolic dysfunction (7) History of hypertension Assessment/Plan all reviewed keep tele O2 titrate to keep sat > 92%, currently down to O2 via NC US of chest showed effusion as expected, thoracentesis today empiric abx fup with inflam markers DVT prophylaxis Tiana Cool MD Sep 03, 2020 11:23
[2020-09-03 12:00] VITALS: BP 130/86
--- NOTE | 2020-09-03 12:21 | Cardiac Electrophysiology PN ---
Assessment/Plan Assessment/Plan 1. Volume overload, likely due to renal failure as creatinine is 3.5. The echocardiogram showed ejection fraction of 50%. Off Amlodipine. On IV Lasix. Discussed with Dr. Severino. PermCath pending for HD 2. Left bundle-branch block. 3. Diastolic dysfunction. Ejection fraction of 50%. 4. Hyperkalemia. Got Kayexalate by Dr. Severino. 5. Diabetic nephropathy. 6. Renal failure. BUN/Cr 81/3.8 Needs HD. PermCath pending 7. Hypothyroidism. 8. Iron-deficiency anemia. Subjective Subjective Still in SOB and bilateral leg edema. 24 hour urine pending. PermCath and US guided thoracentesis scheduled for today Objective Last 24 Hour Vital Signs Date Time Temp Pulse Resp B/P (MAP) Pulse Ox O2 Delivery O2 Flow Rate FiO2 09/03/20 08:36 74 16 97 Nasal Cannula 2.0 28 09/03/20 08:25 97 Nasal Cannula 2.0 28 09/03/20 08:00 74 09/03/20 08:00 98.7 91 19 134/68 (90) 98 09/03/20 05:57 162/67 09/03/20 04:00 96.9 72 22 162/77 (105) 100 09/03/20 04:00 73 09/03/20 00:00 73 09/03/20 00:00 97.1 73 20 146/86 (106) 99 09/02/20 21:14 158/99 09/02/20 21:00 Nasal Cannula 2.0 Nasal Cannula 2.0 09/02/20 20:00 73 09/02/20 20:00 96.8 72 22 158/99 (118) 100 09/02/20 19:04 98 Nasal Cannula 2.0 28 09/02/20 19:04 70 18 98 Nasal Cannula 2.0 28 09/02/20 16:00 67 09/02/20 16:00 96.8 67 20 150/77 (101) 98 09/02/20 13:45 155/82 Intake and Output 09/02/20 09/03/20 19:00 07:00 Intake Total 690 ml 100 ml Output Total 250 ml 500 ml Balance 440 ml -400 ml Intake Oral 690 ml 100 ml Output Urine Total 250 ml 500 ml # Bowel Movements 1 2 Laboratory Tests Test 09/02/20 15:59 09/02/20 16:30 09/02/20 18:00 09/02/20 22:08 POC Whole Blood Glucose 231 MG/DL (74-106) H 258 MG/DL (74-106) H Prothrombin Time 13.4 SEC (9.30-11.50) H Prothromb Time International Ratio 1.2 (0.9-1.1) H Activated Partial Thromboplast Time 26 SEC (23-33) Creatinine 3.8 MG/DL (0.55-1.30) H Estimat Glomerular Filtration Rate 11.8 mL/min (>60) Test 09/03/20 06:03 09/03/20 06:20 09/03/20 11:25 POC Whole Blood Glucose 163 MG/DL (74-106) H 183 MG/DL (74-106) H White Blood Count 14.0 K/UL (4.8-10.8) H Red Blood Count 3.08 M/UL (4.20-5.40) L Hemoglobin 8.9 G/DL (12.0-16.0) L Hematocrit 29.7 % (37.0-47.0) L Mean Corpuscular Volume 97 FL (80-99) Mean Corpuscular Hemoglobin 29.0 PG (27.0-31.0) Mean Corpuscular Hemoglobin Concent 30.1 G/DL (32.0-36.0) L Red Cell Distribution Width 17.6 % (11.6-14.8) H Platelet Count 151 K/UL (150-450) Mean Platelet Volume 8.0 FL (6.5-10.1) Neutrophils (%) (Auto) % (45.0-75.0) Lymphocytes (%) (Auto) % (20.0-45.0) Monocytes (%) (Auto) % (1.0-10.0) Eosinophils (%) (Auto) % (0.0-3.0) Basophils (%) (Auto) % (0.0-2.0) Differential Total Cells Counted 100 Neutrophils % (Manual) 89 % (45-75) H Lymphocytes % (Manual) 6 % (20-45) L Monocytes % (Manual) 5 % (1-10) Eosinophils % (Manual) 0 % (0-3) Basophils % (Manual) 0 % (0-2) Band Neutrophils 0 % (0-8) Platelet Estimate Adequate Platelet Morphology Normal Hypochromasia 1+ Anisocytosis 1+ Macrocytosis 1+ Sodium Level 139 MMOL/L (136-145) Potassium Level 3.8 MMOL/L (3.5-5.1) Chloride Level 104 MMOL/L (98-107) Carbon Dioxide Level 22 MMOL/L (21-32) Anion Gap 13 mmol/L (5-15) Blood Urea Nitrogen 87 mg/dL (7-18) H Creatinine 4.0 MG/DL (0.55-1.30) H Estimat Glomerular Filtration Rate 11.1 mL/min (>60) Glucose Level 161 MG/DL (74-106) H Calcium Level 8.1 MG/DL (8.5-10.1) L Phosphorus Level 6.0 MG/DL (2.5-4.9) H Magnesium Level 2.5 MG/DL (1.8-2.4) H Total Bilirubin 0.6 MG/DL (0.2-1.0) Direct Bilirubin 0.3 MG/DL (0.0-0.3) Aspartate Amino Transf (AST/SGOT) 18 U/L (15-37) Alanine Aminotransferase (ALT/SGPT) 15 U/L (12-78) Alkaline Phosphatase 163 U/L (46-116) H Total Protein 6.9 G/DL (6.4-8.2) Albumin 2.5 G/DL (3.4-5.0) L Microbiology Date/Time Source Procedure Growth Status 09/01/20 14:08 Nasopharynx - Final Complete 09/01/20 14:08 Nasopharynx - Final Complete 08/31/20 15:32 Nasopharynx SARS-CoV-2 RdRp Gene Assay - Final Complete Objective HEAD AND NECK: No JVD. LUNGS: Coarse rhonchi, bibasilar rales. CARDIOVASCULAR: Regular S1 and S2 with no gallop. ABDOMEN: Soft. EXTREMITIES: Bilateral 2+ pitting edema and bandage on both legs Sina Paulson MD Sep 03, 2020 12:21
[2020-09-03] MEDS ORDERED: Albuterol/Ipratropium 3ml neb HHN PRN (13:00)
--- NOTE | 2020-09-03 15:01 | Diagnostic Imaging Report ---
Indication: Postthoracentesis Technique: One view of the chest Comparison: 09/02/2020 Findings: Interim marked decrease in right pleural fluid, status post thoracentesis. No pneumothorax demonstrated. Bilateral interstitial and airspace infiltrates versus edema persists, unchanged. The heart remains enlarged. Impression: Decreased right pleural effusion, status post thoracentesis. Persistent bilateral interstitial and airspace edema versus infiltrates
--- NOTE | 2020-09-03 15:08 | Surgery Progress Note ---
Surgery Progress Note Subjective Additional Comments afebrile, HD stable comfortable no n/v dressings going well labs stable Objective Last 24 Hour Vital Signs Date Time Temp Pulse Resp B/P (MAP) Pulse Ox O2 Delivery O2 Flow Rate FiO2 09/03/20 13:34 130/86 09/03/20 12:00 72 09/03/20 12:00 97.9 72 19 130/86 (101) 97 09/03/20 08:36 74 16 97 Nasal Cannula 2.0 28 09/03/20 08:25 97 Nasal Cannula 2.0 28 09/03/20 08:00 74 09/03/20 08:00 98.7 91 19 134/68 (90) 98 09/03/20 05:57 162/67 09/03/20 04:00 96.9 72 22 162/77 (105) 100 09/03/20 04:00 73 09/03/20 00:00 73 09/03/20 00:00 97.1 73 20 146/86 (106) 99 09/02/20 21:14 158/99 09/02/20 21:00 Nasal Cannula 2.0 Nasal Cannula 2.0 09/02/20 20:00 73 09/02/20 20:00 96.8 72 22 158/99 (118) 100 09/02/20 19:04 98 Nasal Cannula 2.0 28 09/02/20 19:04 70 18 98 Nasal Cannula 2.0 28 09/02/20 16:00 67 09/02/20 16:00 96.8 67 20 150/77 (101) 98 I&O l Intake and Output 09/02/20 09/03/20 19:00 07:00 Intake Total 690 ml 100 ml Output Total 250 ml 500 ml Balance 440 ml -400 ml Intake Oral 690 ml 100 ml Output Urine Total 250 ml 500 ml # Bowel Movements 1 2 Dressing: dry Wound: clean Cardiovascular: RSR Respiratory: decreased breath sounds Abdomen: soft, non-tender, present bowel sounds Extremities: no edema, no tenderness, no cyanosis Laboratory Tests Test 09/02/20 15:59 09/02/20 16:30 09/02/20 18:00 09/02/20 22:08 POC Whole Blood Glucose 231 MG/DL (74-106) H 258 MG/DL (74-106) H Prothrombin Time 13.4 SEC (9.30-11.50) H Prothromb Time International Ratio 1.2 (0.9-1.1) H Activated Partial Thromboplast Time 26 SEC (23-33) Creatinine 3.8 MG/DL (0.55-1.30) H Estimat Glomerular Filtration Rate 11.8 mL/min (>60) Test 09/03/20 06:03 09/03/20 06:20 09/03/20 11:25 POC Whole Blood Glucose 163 MG/DL (74-106) H 183 MG/DL (74-106) H White Blood Count 14.0 K/UL (4.8-10.8) H Red Blood Count 3.08 M/UL (4.20-5.40) L Hemoglobin 8.9 G/DL (12.0-16.0) L Hematocrit 29.7 % (37.0-47.0) L Mean Corpuscular Volume 97 FL (80-99) Mean Corpuscular Hemoglobin 29.0 PG (27.0-31.0) Mean Corpuscular Hemoglobin Concent 30.1 G/DL (32.0-36.0) L Red Cell Distribution Width 17.6 % (11.6-14.8) H Platelet Count 151 K/UL (150-450) Mean Platelet Volume 8.0 FL (6.5-10.1) Neutrophils (%) (Auto) % (45.0-75.0) Lymphocytes (%) (Auto) % (20.0-45.0) Monocytes (%) (Auto) % (1.0-10.0) Eosinophils (%) (Auto) % (0.0-3.0) Basophils (%) (Auto) % (0.0-2.0) Differential Total Cells Counted 100 Neutrophils % (Manual) 89 % (45-75) H Lymphocytes % (Manual) 6 % (20-45) L Monocytes % (Manual) 5 % (1-10) Eosinophils % (Manual) 0 % (0-3) Basophils % (Manual) 0 % (0-2) Band Neutrophils 0 % (0-8) Platelet Estimate Adequate Platelet Morphology Normal Hypochromasia 1+ Anisocytosis 1+ Macrocytosis 1+ Sodium Level 139 MMOL/L (136-145) Potassium Level 3.8 MMOL/L (3.5-5.1) Chloride Level 104 MMOL/L (98-107) Carbon Dioxide Level 22 MMOL/L (21-32) Anion Gap 13 mmol/L (5-15) Blood Urea Nitrogen 87 mg/dL (7-18) H Creatinine 4.0 MG/DL (0.55-1.30) H Estimat Glomerular Filtration Rate 11.1 mL/min (>60) Glucose Level 161 MG/DL (74-106) H Calcium Level 8.1 MG/DL (8.5-10.1) L Phosphorus Level 6.0 MG/DL (2.5-4.9) H Magnesium Level 2.5 MG/DL (1.8-2.4) H Total Bilirubin 0.6 MG/DL (0.2-1.0) Direct Bilirubin 0.3 MG/DL (0.0-0.3) Aspartate Amino Transf (AST/SGOT) 18 U/L (15-37) Alanine Aminotransferase (ALT/SGPT) 15 U/L (12-78) Alkaline Phosphatase 163 U/L (46-116) H Total Protein 6.9 G/DL (6.4-8.2) Albumin 2.5 G/DL (3.4-5.0) L Plan Problems: (1) Acute on chronic diastolic (congestive) heart failure (2) Anemia (3) Acute respiratory failure Assessment & Plan: Large right pleural effusion persists, unchanged. Bilateral interstitial and airspace edema, cardiomegaly persists, probably unchanged allowing for differences in technique and inspiration (4) ACS (acute coronary syndrome) (5) History of hypertension (6) Moderate pulmonary arterial systolic hypertension (7) Left bundle branch block (LBBB) (8) Diabetes mellitus (9) Diabetic nephropathy (10) Renal failure (ARF), acute on chronic (11) Hyperkalemia (12) Bacteremia (13) CAD (coronary artery disease) (14) Hypothyroidism (15) Cardiac left ventricular ejection fraction greater than 40 percent (16) Grade I diastolic dysfunction (17) UTI (urinary tract infection) (18) Ulcers of both lower legs (19) Open wounds involving multiple regions of lower extremity Assessment & Plan: Patient identified admission having bilateral lower extremity edema open wounds as well as necrotic ulcerations. Patient states she has had this for some time now and acutely worsening as well. Bilateral lower leg wounds do to blisters from edema. Right medial lower leg wound 2.1x4.2x0.2 dark brown scab . Right anterior lower leg wound 5.6x5.3x0.2 pink wound bed. Right distal anterior lower leg 4.0x6.0x0.2 pink wound bed . Large amount serous drainage right leg wounds , Xeroform ,gauze,abd pad and kerlix applied change every shift. Left lower leg wound 3.7x5.0x0.3 100% green slough large amount serous drainage noted with small blisters ifeoma wound, Thera Honey, gauze,abd pad and kerlix applied, change every shift. Local wound care plan initiate Nutritional optimization Turn every 2 hours Elevate extremities Thank you will follow recommendations Right deep veins: Unremarkable. No DVT in the right common femoral, femoral, proximal deep femoral or popliteal veins. The veins demonstrate normal color flow, are normally compressible, with normal phasic flow and/or augmentation response. Right superficial veins: Unremarkable. No thrombus in the visualized right great saphenous vein. Left deep veins: Unremarkable. No DVT in the left common femoral, femoral, proximal deep femoral or popliteal veins. The veins demonstrate normal color flow, are normally compressible, with normal phasic flow and/or augmentation response. Left superficial veins: Unremarkable. No thrombus in the visualized left great saphenous vein. Soft tissues: No acute findings. No popliteal cyst. IMPRESSION: Normal bilateral lower extremity duplex venous ultrasound. DAILY ESTIMATED NEEDS: Needs based on ARF, now HD 65.7kg abw 25-30 kcals/kg 8835-2606 total kcals 1.25-1.8 g protein/kg 82-118 g total protein Fluid per MD, HD pending NUTRITION DIAGNOSIS: Increased pro needs r/t renal dysfunction as evidenced by pt w/ ARF, w/ now pending HD, K on adm (5.8), elev BUN (81), elev Creat (3.8), elev phos and mg. CURRENT DIET:Renal/ CCHO MED PO DIET RECOMMENDATIONS: Renal / CCHO LOW diet + high pro snacks in b/w meals ADDITIONAL RECOMMENDATIONS: 1) Maintain calibrated bed scale wts 2) High pro snacks in b/w meals 3) Rec WC eval-> add nephrovite 1 tab daily Vit C per nephro Omar Tellez Sep 03, 2020 15:08
--- NOTE | 2020-09-03 15:13 | Brief Operative Note ---
Immediate Post Operative Note Operative Note Pre-op Diagnosis: SOB Procedure: Thoracentesis Surgeon: Katharina Ruelas Anesthesia: local Specimen: none Complications: none Fluids: NONE Implant(s) used?: No Bhasakr Ruelas MD Sep 03, 2020 15:13
--- NOTE | 2020-09-03 15:13 | Pre-Procedure Note/Attestation ---
Pre-Procedure Note/Attestation Complete Prior to Procedure Planned Procedure: right Procedure Narrative: Thoracentesis Indications for Procedure Pre-Operative Diagnosis: SOB Attestation I attest that I discussed the nature of the procedure; its benefits; risks and complications; and alternatives (and the risks and benefits of such alternatives), prior to the procedure, with the patient (or the patient's legal sales representative public utilities). I attest that, if there was a reasonable possibility of needing a blood transfusion, the patient (or the patient's legal sales representative public utilities) was given the [facility] standardized written summary, pursuant to the Hi [place] Blood Safety Act ([place] Health and Safety Code # 1645, as amended). I attest that I re-evaluated the patient just prior to the surgery and that there has been no change in the patient's H&P, except as documented below: Bhaskar Vizcaino MD Sep 03, 2020 15:13
[2020-09-03 16:00] VITALS: BP 132/81
[2020-09-03 20:00] VITALS: BP 115/70
--- NOTE | 2020-09-03 20:38 | Diagnostic Imaging Report ---
Indications: Pleural effusion Technique: Ultrasound used to localize optimal puncture site. Sterile prepping and draping right chest. Local anesthesia with 1% lidocaine. Under real-time ultrasound guidance, puncture pleural space using thoracentesis needle. Stylet removed. Catheter placed to vacuum bottle suction. Total 680 milliliters of fluid aspirated. Patient tolerated procedure well, without immediate complication. Findings: Followup sonography demonstrates complete resolution of pleural fluid. Impression: Successful ultrasound-guided thoracentesis, yielding 680 milliliters of clear yellow fluid
[2020-09-03] MEDS: NS IV SCH (21:29)
[2020-09-03] MEDS: CEFTAROLINE IV SCH (21:29)
[2020-09-03] MEDS ORDERED: Tubing IV Secondary IV ONE (21:50)
[2020-09-04] VITALS: BP 122/69
[2020-09-04 04:00] VITALS: BP 124/87
[2020-09-04] MEDS: HydrALAZINE 25mg tab ORAL SCH ×3 (06:02→22:00)
[2020-09-04] MEDS: NovoLOG Insulin Flexpen SUBQ SCH ×4 (06:11→21:17)
[2020-09-04 07:45] LABS: EOSINOPHILS % (AUTO) 1.1 % (0.0-3.0); HEMATOCRIT 28.8 % (37.0-47.0); LYMPHOCYTES % (AUTO) 7.4 % (20.0-45.0); MEAN CORPUSCULAR VOLUME 95 FL (80-99); MONOCYTES % (AUTO) 8.3 % (1.0-10.0); NEUTROPHILS % (AUTO) 82.2 % (45.0-75.0); PLATELET COUNT 169 K/UL (150-450); RED BLOOD COUNT 3.02 M/UL (4.20-5.40); RED CELL DISTRIBUTION WIDTH 17.1 % (11.6-14.8); WHITE BLOOD COUNT 10.5 K/UL (4.8-10.8)
[2020-09-04 08:00] VITALS: BP 151/64
[2020-09-04 08:04] LABS: ALBUMIN 2.5 G/DL (3.4-5.0); ALBUMIN/GLOBULIN RATIO 0.5 (1.0-2.7); BILIRUBIN,TOTAL 0.7 MG/DL (0.2-1.0); CALCIUM 7.7 MG/DL (8.5-10.1); CREATININE 4.1 MG/DL (0.55-1.30); PHOSPHORUS 5.6 MG/DL (2.5-4.9); POTASSIUM 3.6 MMOL/L (3.5-5.1)
[2020-09-04] MEDS: Heparin 5000 units/ml inj SUBQ SCH ×2 (09:00→21:16)
--- NOTE | 2020-09-04 09:01 | Nephrology Progress Note ---
Assessment/Plan Problem List: (1) Renal failure (ARF), acute on chronic (2) Hyperkalemia (3) Hypothyroidism (4) Acute on chronic diastolic (congestive) heart failure (5) Diabetic nephropathy (6) Pneumonia Assessment: Leukocytosis, abnormal chest x-ray (7) Anemia Assessment 1) Renal failure (ARF), acute on chronic (2) Diabetes mellitus (3) Hypoglycemia (4) Hyperkalemia (5) Diabetic nephropathy (6) H/o Pleural effusion (7) Morbid obesity (8) Low Iron Anemia (9) HypoThyroidism Plan September 04: New 24-hour urine test is in process. Discussed with RN. Patient was short of breath overnight. ABG ordered. 1 dose of Zaroxolyn ordered. Patient has fluid overload, and need ultrafiltration. Blood cultures negative. Leukocytosis resolved. Will order placement of permacath and dialysis and ultrafiltration. September 03: The 24-hour urine results appears to be an error in view of total volume compared to intake and output records. Today's labs reviewed. Serum creatinine higher. Talk to the nursing charge of the floor and will order another 24-hour urine collection. Meanwhile continue per ID treatment for UTI and leukocytosis. Dexamethasone on the medication list was questioned. Patient may require dialysis if continues to have worsening renal parameters. September 02: Consent for dialysis catheter is taken. Catheter placement deferred due to leukocytosis. Surveillance blood culture ordered. Urine culture ordered. Blood pressure medication adjusted. 24-hour urine for creatinine clearance and total protein pending. Previously: Chan Cath 24 H CrCl and total protein ordered Off IV fluids, on IV Lasix Adjust BP meds Previous 2D echocardiogram ejection fraction is reported to 50% Previous Kidney ultrasound noted. Current kidney ultrasound results below Anemia work-up As needed Kayexalate for high potassium Keep blood pressure and blood sugar in check Monitor renal parameters Requires HD treatment [facility] KIDNEY IMPRESSION: 1. Ascites. 2. Bilateral pleural effusions. 3. Complex right renal cysts of uncertain etiology. This complex cyst is unchanged from the study of 01/12/2020. 4. Mildly atrophic right kidney. 5. Magnetic resonance imaging of the abdomen with gadolinium administration is advised for further evaluation of complex right renal cyst. Subjective ROS Limited/Unobtainable: No Constitutional: Reports: malaise, weakness Objective Objective Last 24 Hour Vital Signs Date Time Temp Pulse Resp B/P (MAP) Pulse Ox O2 Delivery O2 Flow Rate FiO2 11/12/20 08:01 97 Nasal Cannula 2.0 28 09/04/20 08:01 81 16 97 Nasal Cannula 2.0 28 09/04/20 06:02 124/82 09/04/20 05:22 79 09/04/20 05:19 81 20 99 Nasal Cannula 2.0 28 77 20 96 09/04/20 04:00 96.9 76 24 124/87 (99) 98 09/04/20 00:00 74 09/04/20 00:00 96.8 78 20 122/69 (86) 97 09/03/20 21:27 115/70 09/03/20 21:00 Nasal Cannula 2.0 09/03/20 20:19 96 Nasal Cannula 2.0 28 09/03/20 20:19 77 16 96 Nasal Cannula 2.0 28 09/03/20 20:00 91 09/03/20 20:00 96.3 78 24 115/70 (85) 97 09/03/20 16:00 97.7 76 20 132/81 (98) 97 09/03/20 16:00 76 09/03/20 13:34 130/86 09/03/20 12:00 72 09/03/20 12:00 97.9 72 19 130/86 (101) 97 Intake and Output 09/03/20 09/04/20 19:00 07:00 Intake Total 300 ml 120 ml Output Total 200 ml Balance 100 ml 120 ml Intake Oral 300 ml 120 ml Output Urine Total 200 ml # Bowel Movements 2 1 Current Medications Medications (Trade) Dose Ordered Sig/[place] Route PRN Reason Start Time Stop Time Status Last Admin Dose Admin Acetaminophen (Tylenol) 650 mg Q4H PRN ORAL FEVER 08/30/20 23:45 09/29/20 23:44 Albuterol/ Ipratropium (Albuterol/ Ipratropium) 3 ml Q4H PRN HHN Shortness of Breath 09/03/20 13:00 09/08/20 12:59 09/04/20 05:15 Allopurinol (allopurinoL) 300 mg DAILY ORAL 08/31/20 09:00 09/30/20 08:59 09/04/20 08:48 Ceftaroline Fosamil 300 mg/ Sodium Chloride 55 ml @ 55 mls/hr Q12HR IV 09/03/20 21:00 09/10/20 20:59 09/03/20 21:29 Dextrose (Dextrose 50%) 25 ml Q30M PRN IV Hypoglycemia 08/30/20 23:45 11/28/20 23:44 Dextrose (Dextrose 50%) 50 ml Q30M PRN IV Hypoglycemia 08/30/20 23:45 11/28/20 23:44 Folic Acid (Folate) 3 mg DAILY ORAL 09/02/20 09:00 10/02/20 08:59 09/04/20 08:48 Furosemide (Lasix) 80 mg EVERY 12 HOURS IV 09/02/20 21:00 09/30/20 20:59 09/04/20 08:49 Gabapentin (Neurontin) 300 mg DAILY ORAL 08/31/20 09:00 09/30/20 08:59 09/04/20 08:48 Heparin Sodium (Porcine) (Heparin 5000 units/ml) 5,000 units EVERY 12 HOURS SUBQ 08/31/20 09:00 10/15/20 08:59 09/03/20 21:30 Hydralazine HCl (Apresoline) 75 mg Q8HR ORAL 09/02/20 14:00 11/29/20 00:00 09/04/20 06:02 Insulin Aspart (NovoLOG) BEFORE MEALS AND HS SUBQ 08/31/20 06:30 11/29/20 06:29 09/03/20 22:07 Levofloxacin 100 ml @ 100 mls/hr Q48H IVPB 09/04/20 18:00 09/11/20 17:59 Levothyroxine Sodium (Synthroid) 100 mcg DAILY@0630 ORAL 09/02/20 06:30 10/02/20 06:29 09/04/20 06:00 Metoclopramide HCl (Reglan) 5 mg THREE TIMES A DAY ORAL 08/31/20 13:00 09/30/20 12:59 09/04/20 08:49 Metolazone (Zaroxolyn) 10 mg ONCE ONCE ORAL 09/04/20 09:00 09/04/20 09:01 UNV Morphine Sulfate (Morphine Sulfate) 2 mg Q4H PRN IVP For Pain 09/01/20 02:50 09/08/20 02:59 09/01/20 03:04 Ondansetron HCl (Zofran) 4 mg Q6H PRN IVP Nausea & Vomiting 08/30/20 23:45 09/29/20 23:44 Pantoprazole (Protonix) 40 mg EVERY 12 HOURS ORAL 08/31/20 21:00 09/30/20 20:59 09/04/20 08:48 Polyethylene Glycol (Miralax) 17 gm DAILYPRN PRN ORAL Constipation 08/30/20 23:45 09/29/20 23:44 Promethazine HCl/ Codeine (Phenergan with Codeine) 5 ml Q6H PRN ORAL cough 08/30/20 23:45 09/29/20 23:44 Laboratory Tests 09/03/20 11:25: POC Whole Blood Glucose 183H 09/03/20 14:03: Body Fluid Source Thoracentesis, Body Fluid Volume 27, Body Fluid Appearance Yellow, clear, Body Fluid RBC 50, Body Fluid Total Nucleated Cells 25, Body Fluid Polynuclear WBCs (%) 21, Body Fluid Mononuclear WBCs (%) 73, Body Fluid Mesothelial Cells (%) 6, Body Fluid Glucose [Pending], Body Fluid Total Protein [Pending], Body Fluid Comment Na 09/03/20 17:14: POC Whole Blood Glucose 182H 09/03/20 22:05: POC Whole Blood Glucose [Pending] 09/04/20 06:09: POC Whole Blood Glucose 91 09/04/20 06:20: White Blood Count 10.5, Red Blood Count 3.02L, Hemoglobin 9.0L, Hematocrit 28.8L , Mean Corpuscular Volume 95, Mean Corpuscular Hemoglobin 29.8, Mean Corpuscular Hemoglobin Concent 31.2L, Red Cell Distribution Width 17.1H, Platelet Count 169, Mean Platelet Volume 8.2, Neutrophils (%) (Auto) 82.2H, Lymphocytes (%) (Auto) 7.4L, Monocytes (%) (Auto) 8.3, Eosinophils (%) (Auto) 1.1, Basophils (%) (Auto) 1.0, Sodium Level 139, Potassium Level 3.6, Chloride Level 104, Carbon Dioxide Level 24, Anion Gap 11, Blood Urea Nitrogen 93H, Creatinine 4.1H, Estimat Glomerular Filtration Rate 10.8, Glucose Level 95, Uric Acid 8.9H, Calcium Level 7.7L, Phosphorus Level 5.6H, Magnesium Level 2.3, Total Bilirubin 0.7, Aspartate Amino Transf (AST/SGOT) 21, Alanine Aminotransferase (ALT/SGPT) 13, Alkaline Phosphatase 162H, C-Reactive Protein, Quantitative 7.5H, Pro-B-Type Natriuretic Peptide [id number], Total Protein 7.2, Albumin 2.5L, Globulin 4.7, Albumin/Globulin Ratio 0.5L Height (Feet): 5 Height (Inches): 10.00 Weight (Pounds): 218 General Appearance: no apparent distress Respiratory/Chest: decreased breath sounds Abdomen: distended Jay Severino MD Sep 04, 2020 09:01
[2020-09-04 09:30] LABS: CREATININE 4.1 MG/DL (0.55-1.30)
[2020-09-04] MEDS: NS IV SCH ×2 (09:58→21:15)
[2020-09-04] MEDS: CEFTAROLINE IV SCH ×2 (09:58→21:15)
--- NOTE | 2020-09-04 10:22 | Cardiac Electrophysiology PN ---
Assessment/Plan Assessment/Plan 1. Volume overload, likely due to renal failure as creatinine is 3.5. The echocardiogram showed ejection fraction of 50%. Off Amlodipine. On IV Lasix. Discussed with Dr. Severino. HD pending for HD 2. Left bundle-branch block. 3. Diastolic dysfunction. Ejection fraction of 50%. 4. Hyperkalemia. Got Kayexalate by Dr. Severino. 5. Diabetic nephropathy. 6. Renal failure. BUN/Cr 81/3.8 Dr Severino ordered placement of permacath and dialysis and ultrafiltration. 7. Hypothyroidism. 8. Iron-deficiency anemia. 9. Right pleural effusion. S/P 800cc Right thoracentesis 09/03/20 DW transmitter engineer in charge Subjective Subjective SOB and bilateral leg edema. HD pending today Objective Last 24 Hour Vital Signs Date Time Temp Pulse Resp B/P (MAP) Pulse Ox O2 Delivery O2 Flow Rate FiO2 09/04/20 08:01 97 Nasal Cannula 2.0 28 09/04/20 08:01 81 16 97 Nasal Cannula 2.0 28 09/04/20 06:02 124/82 09/04/20 05:22 79 09/04/20 05:19 81 20 99 Nasal Cannula 2.0 28 77 20 96 09/04/20 04:00 96.9 76 24 124/87 (99) 98 09/04/20 00:00 74 09/04/20 00:00 96.8 78 20 122/69 (86) 97 09/03/20 21:27 115/70 09/03/20 21:00 Nasal Cannula 2.0 09/03/20 20:19 96 Nasal Cannula 2.0 28 09/03/20 20:19 77 16 96 Nasal Cannula 2.0 28 09/03/20 20:00 91 09/03/20 20:00 96.3 78 24 115/70 (85) 97 09/03/20 16:00 97.7 76 20 132/81 (98) 97 09/03/20 16:00 76 09/03/20 13:34 130/86 09/03/20 12:00 72 09/03/20 12:00 97.9 72 19 130/86 (101) 97 Intake and Output 09/03/20 09/04/20 19:00 07:00 Intake Total 300 ml 120 ml Output Total 200 ml Balance 100 ml 120 ml Intake Oral 300 ml 120 ml Output Urine Total 200 ml # Bowel Movements 2 1 Laboratory Tests Test 09/03/20 11:25 09/03/20 14:03 09/03/20 17:14 09/03/20 22:05 POC Whole Blood Glucose 183 MG/DL (74-106) H 182 MG/DL (74-106) H Pending Body Fluid Source Thoracentesis Body Fluid Volume 27 mL Body Fluid Appearance Yellow, clear (Clear) Body Fluid RBC 50 /CUMM Body Fluid Total Nucleated Cells 25 /CUMM Body Fluid Polynuclear WBCs (%) 21 % Body Fluid Mononuclear WBCs (%) 73 % Body Fluid Mesothelial Cells (%) 6 % Body Fluid Glucose Pending Body Fluid Total Protein Pending Body Fluid Comment Na Test 09/04/20 06:09 09/04/20 06:20 09/04/20 09:00 POC Whole Blood Glucose 91 MG/DL (74-106) White Blood Count 10.5 K/UL (4.8-10.8) Red Blood Count 3.02 M/UL (4.20-5.40) L Hemoglobin 9.0 G/DL (12.0-16.0) L Hematocrit 28.8 % (37.0-47.0) L Mean Corpuscular Volume 95 FL (80-99) Mean Corpuscular Hemoglobin 29.8 PG (27.0-31.0) Mean Corpuscular Hemoglobin Concent 31.2 G/DL (32.0-36.0) L Red Cell Distribution Width 17.1 % (11.6-14.8) H Platelet Count 169 K/UL (150-450) Mean Platelet Volume 8.2 FL (6.5-10.1) Neutrophils (%) (Auto) 82.2 % (45.0-75.0) H Lymphocytes (%) (Auto) 7.4 % (20.0-45.0) L Monocytes (%) (Auto) 8.3 % (1.0-10.0) Eosinophils (%) (Auto) 1.1 % (0.0-3.0) Basophils (%) (Auto) 1.0 % (0.0-2.0) Sodium Level 139 MMOL/L (136-145) Potassium Level 3.6 MMOL/L (3.5-5.1) Chloride Level 104 MMOL/L (98-107) Carbon Dioxide Level 24 MMOL/L (21-32) Anion Gap 11 mmol/L (5-15) Blood Urea Nitrogen 93 mg/dL (7-18) H Creatinine 4.1 MG/DL (0.55-1.30) H 4.1 MG/DL (0.55-1.30) H Estimat Glomerular Filtration Rate 10.8 mL/min (>60) 10.8 mL/min (>60) Glucose Level 95 MG/DL (74-106) Uric Acid 8.9 MG/DL (2.6-7.2) H Calcium Level 7.7 MG/DL (8.5-10.1) L Phosphorus Level 5.6 MG/DL (2.5-4.9) H Magnesium Level 2.3 MG/DL (1.8-2.4) Total Bilirubin 0.7 MG/DL (0.2-1.0) Aspartate Amino Transf (AST/SGOT) 21 U/L (15-37) Alanine Aminotransferase (ALT/SGPT) 13 U/L (12-78) Alkaline Phosphatase 162 U/L (46-116) H C-Reactive Protein, Quantitative 7.5 mg/dL (0.00-0.90) H Pro-B-Type Natriuretic Peptide 25205 pg/mL (0-125) H Total Protein 7.2 G/DL (6.4-8.2) Albumin 2.5 G/DL (3.4-5.0) L Globulin 4.7 g/dL Albumin/Globulin Ratio 0.5 (1.0-2.7) L Urine Collection Time 24 HRS Urine Total Volume 500 ML Urine Creatinine 51 MG/DL Urine Creatinine 24 Hour 255 mg/24hr (740-1570) L Patient Height Inches (Creat Clear) 70 INCHES Patient Weight Pounds (Creat Clear) 218 LBS Creatinine Clearance 3 mL/min (71-151) L Urine Total Protein mg/dL 60 mg/dL Urine Total Protein 24 Hour 300.0 mg/24hr (< 150) H Microbiology Date/Time Source Procedure Growth Status 09/03/20 14:03 Ascities Fluid Gram Stain - Final Resulted 09/03/20 14:03 Ascities Fluid Body Fluid Culture Pending Resulted 09/02/20 16:40 Blood Blood Culture - Preliminary NO GROWTH AFTER 24 HOURS Resulted 09/02/20 16:30 Blood Blood Culture - Preliminary NO GROWTH AFTER 24 HOURS Resulted 09/01/20 14:08 Nasopharynx - Final Complete 09/01/20 14:08 Nasopharynx - Final Complete Objective HEAD AND NECK: No JVD. LUNGS: Coarse rhonchi, bibasilar rales. CARDIOVASCULAR: Regular S1 and S2 with no gallop. ABDOMEN: Soft. EXTREMITIES: Bilateral 2+ pitting edema and bandage on both legs Sina Paulson MD Sep 04, 2020 10:22
--- NOTE | 2020-09-04 11:40 | Pulmonology Progress Note ---
Subjective ROS Limited/Unobtainable: No Constitutional: Reports: no symptoms HEENT: Repors: no symptoms Respiratory: Reports: no symptoms Allergies: Coded Allergies: No Known Allergies (Unverified , 10/10/19) All Systems: reviewed and negative except above Objective Last 24 Hour Vital Signs Date Time Temp Pulse Resp B/P (MAP) Pulse Ox O2 Delivery O2 Flow Rate FiO2 09/04/20 08:01 97 Nasal Cannula 2.0 28 09/04/20 08:01 81 16 97 Nasal Cannula 2.0 28 09/04/20 08:00 84 09/04/20 08:00 97.0 84 18 151/64 (93) 96 09/04/20 06:02 124/82 09/04/20 05:22 79 09/04/20 05:19 81 20 99 Nasal Cannula 2.0 28 77 20 96 09/04/20 04:00 96.9 76 24 124/87 (99) 98 09/04/20 00:00 74 09/04/20 00:00 96.8 78 20 122/69 (86) 97 09/03/20 21:27 115/70 09/03/20 21:00 Nasal Cannula 2.0 09/03/20 20:19 96 Nasal Cannula 2.0 28 09/03/20 20:19 77 16 96 Nasal Cannula 2.0 28 09/03/20 20:00 91 09/03/20 20:00 96.3 78 24 115/70 (85) 97 09/03/20 16:00 97.7 76 20 132/81 (98) 97 09/03/20 16:00 76 09/03/20 13:34 130/86 09/03/20 12:00 72 09/03/20 12:00 97.9 72 19 130/86 (101) 97 Intake and Output 09/03/20 09/04/20 18:59 06:59 Intake Total 300 ml 120 ml Output Total 200 ml Balance 100 ml 120 ml Intake Oral 300 ml 120 ml Output Urine Total 200 ml # Bowel Movements 2 1 General Appearance: WD/WN HEENT: normocephalic, atraumatic Respiratory: chest wall non-tender, lungs clear Breasts: no masses Cardiovascular: normal peripheral pulses Abdomen: normal bowel sounds, soft, non tender Genitourinary: normal external genitalia Extremities: no cyanosis, no clubbing, other - right knee swelling and warmth Neurologic: box loader II-XII grossly normal Microbiology Date/Time Source Procedure Growth Status 09/03/20 14:03 Ascities Fluid Gram Stain - Final Resulted 09/03/20 14:03 Ascities Fluid Body Fluid Culture Pending Resulted 09/02/20 16:40 Blood Blood Culture - Preliminary NO GROWTH AFTER 24 HOURS Resulted 09/02/20 16:30 Blood Blood Culture - Preliminary NO GROWTH AFTER 24 HOURS Resulted 09/01/20 14:08 Nasopharynx - Final Complete 09/01/20 14:08 Nasopharynx - Final Complete Laboratory Tests 09/03/20 14:03: Body Fluid Source Thoracentesis, Body Fluid Volume 27, Body Fluid Appearance Yellow, clear, Body Fluid RBC 50, Body Fluid Total Nucleated Cells 25, Body Fluid Polynuclear WBCs (%) 21, Body Fluid Mononuclear WBCs (%) 73, Body Fluid Mesothelial Cells (%) 6, Body Fluid Glucose [Pending], Body Fluid Total Protein [Pending], Body Fluid Comment Na 09/03/20 17:14: POC Whole Blood Glucose 182H 09/03/20 22:05: POC Whole Blood Glucose [Pending] 09/04/20 06:09: POC Whole Blood Glucose 91 09/04/20 06:20: White Blood Count 10.5, Red Blood Count 3.02L, Hemoglobin 9.0L, Hematocrit 28.8L , Mean Corpuscular Volume 95, Mean Corpuscular Hemoglobin 29.8, Mean Corpuscular Hemoglobin Concent 31.2L, Red Cell Distribution Width 17.1H, Platelet Count 169, Mean Platelet Volume 8.2, Neutrophils (%) (Auto) 82.2H, Lymphocytes (%) (Auto) 7.4L, Monocytes (%) (Auto) 8.3, Eosinophils (%) (Auto) 1.1, Basophils (%) (Auto) 1.0, Sodium Level 139, Potassium Level 3.6, Chloride Level 104, Carbon Dioxide Level 24, Anion Gap 11, Blood Urea Nitrogen 93H, Creatinine 4.1H, Estimat Glomerular Filtration Rate 10.8, Glucose Level 95, Uric Acid 8.9H, Calcium Level 7.7L, Phosphorus Level 5.6H, Magnesium Level 2.3, Total Bilirubin 0.7, Aspartate Amino Transf (AST/SGOT) 21, Alanine Aminotransferase (ALT/SGPT) 13, Alkaline Phosphatase 162H, C-Reactive Protein, Quantitative 7.5H, Pro-B-Type Natriuretic Peptide 69263P, Total Protein 7.2, Albumin 2.5L, Globulin 4.7, Albumin/Globulin Ratio 0.5L 09/04/20 09:00: Creatinine 4.1H, Estimat Glomerular Filtration Rate 10.8, Urine Collection Time 24, Urine Total Volume 500, Urine Creatinine 51, Urine Creatinine 24 Hour 255L, Patient Height Inches (Creat Clear) 70, Patient Weight Pounds (Creat Clear) 218, Creatinine Clearance 3L, Urine Total Protein mg/dL 60, Urine Total Protein 24 Hour 300.0H 09/04/20 10:30: Arterial Blood pH 7.359, Arterial Blood Partial Pressure CO2 39.0, Arterial Blood Partial Pressure O2 91.6, Arterial Blood HCO3 21.5L, Arterial Blood Oxygen Saturation 96.5, Arterial Blood Base Excess -3.6L, Geoffrey Test Positive Current Medications Medications (Trade) Dose Ordered Sig/Braeden Route PRN Reason Start Time Stop Time Status Last Admin Dose Admin Acetaminophen (Tylenol) 650 mg Q4H PRN ORAL FEVER 08/30/20 23:45 09/29/20 23:44 Albuterol/ Ipratropium (Albuterol/ Ipratropium) 3 ml Q4H PRN HHN Shortness of Breath 09/03/20 13:00 09/08/20 12:59 09/04/20 05:15 Allopurinol (allopurinoL) 300 mg DAILY ORAL 08/31/20 09:00 09/30/20 08:59 09/04/20 08:48 Ceftaroline Fosamil 300 mg/ Sodium Chloride 55 ml @ 55 mls/hr Q12HR IV 09/03/20 21:00 09/10/20 20:59 09/04/20 09:58 Dextrose (Dextrose 50%) 25 ml Q30M PRN IV Hypoglycemia 08/30/20 23:45 2 23:44 Dextrose (Dextrose 50%) 50 ml Q30M PRN IV Hypoglycemia 08/30/20 23:45 11/28/20 23:44 Folic Acid (Folate) 3 mg DAILY ORAL 09/02/20 09:00 10/02/20 08:59 09/04/20 08:48 Furosemide (Lasix) 80 mg EVERY 12 HOURS IV 09/02/20 21:00 09/30/20 20:59 09/04/20 08:49 Gabapentin (Neurontin) 300 mg DAILY ORAL 08/31/20 09:00 09/30/20 08:59 09/04/20 08:48 Heparin Sodium (Porcine) (Heparin 5000 units/ml) 5,000 units EVERY 12 HOURS SUBQ 08/31/20 09:00 10/15/20 08:59 09/03/20 21:30 Hydralazine HCl (Apresoline) 75 mg Q8HR ORAL 09/02/20 14:00 11/29/20 00:00 09/04/20 06:02 Insulin Aspart (NovoLOG) BEFORE MEALS AND HS SUBQ 08/31/20 06:30 11/29/20 06:29 09/03/20 22:07 Levofloxacin 100 ml @ 100 mls/hr Q48H IVPB 09/04/20 18:00 09/11/20 17:59 Levothyroxine Sodium (Synthroid) 100 mcg DAILY@0630 ORAL 09/02/20 06:30 10/02/20 06:29 09/04/20 06:00 Metoclopramide HCl (Reglan) 5 mg THREE TIMES A DAY ORAL 08/31/20 13:00 09/30/20 12:59 09/04/20 08:49 Metolazone (Zaroxolyn) 10 mg ONCE ORAL 09/04/20 10:30 09/04/20 11:30 09/04/20 10:44 Morphine Sulfate (Morphine Sulfate) 2 mg Q4H PRN IVP For Pain 09/01/20 02:50 09/08/20 02:59 09/01/20 03:04 Ondansetron HCl (Zofran) 4 mg Q6H PRN IVP Nausea & Vomiting 08/30/20 23:45 09/29/20 23:44 Pantoprazole (Protonix) 40 mg EVERY 12 HOURS ORAL 08/31/20 21:00 09/30/20 20:59 09/04/20 08:48 Polyethylene Glycol (Miralax) 17 gm DAILYPRN PRN ORAL Constipation 08/30/20 23:45 09/29/20 23:44 Promethazine HCl/ Codeine (Phenergan with Codeine) 5 ml Q6H PRN ORAL cough 08/30/20 23:45 09/29/20 23:44 Assessment/Plan Problems: (1) Acute on chronic diastolic (congestive) heart failure (2) Gout (3) Renal failure (ARF), acute on chronic (4) Diabetes mellitus (5) Left bundle branch block (LBBB) (6) Cardiac left ventricular ejection fraction greater than 40 percent (7) Grade I diastolic dysfunction (8) History of hypertension Assessment/Plan all reviewed pt c/o right knee pain, might need arthrocentesis. Dr. Royal called will start on Indometacin while waiting for rheuma consult O2 titrate to keep sat > 92%, currently down to O2 via NC thoracentesis done, 600 cc removed from right side. CXR today shows remarkable decrease in amount of right sided effusion empiric abx DVT prophylaxis Tiana Cool MD Sep 04, 2020 11:40
[2020-09-04] MEDS: Morphine Sulfate 2mg/ml Inj(IV/IM USE ONLY) IVP PRN (11:41)
--- NOTE | 2020-09-04 11:43 | Infectious Diseases Prog Note ---
Assessment/Plan Assessment: Severe Sepsis Pneumonia Acute hypoxic resp failure- on 2l NC R pleural effusion -09/03 SP Thoracentesis: Successful ultrasound-guided thoracentesis, yielding 680 milliliters of clear yellow fluid; cx NTD -09/01 Chest US: Positive for right pleural effusion Incidental finding of ascites, also previously reporte -08/30 CXR: There is again patchy ill-defined airspace opacities at the right greater than left base with some consolidated appearance again seen on the right. There is now patchy ill-defined opacity at the right upper lung. A small right pleural effusion is suggested. The patient is rotated to the right. Status post median sternotomy again noted. -08/30 & rapid covid PCR neg x2 -08/30 Bcx NTD Afebrile Leukocytosis, SP -09/02 Bcx NTD -08/31 u/a no pyuria R arm and R leg cellulitis; improving Recent hx of COVID19- pt clarified initial diagnosis was 2 months ago and not 08/25 as per documentation on EMR. VENANCIO on CKD -REnal US: Ascites. Bilateral pleural effusions. Complex right renal cysts of uncertain etiology. This complex cyst is unchanged from the study of 01/12/2020. Mildly atrophic right kidney.Magnetic resonance imaging of the abdomen with gadolinium administration is advised for further evaluation of complex right renal cyst. HTN dCHF pHTN ascites chronic LE edema DM2 c/w neuropathy iron def anemia Plan: -Continue empiric Teflaro and LEvaquin #5 (abx d #6) -08/31 SP Ceftriaxone #2, Azithromcyin #2 -f/u cx -Monitor CBC/CMP, temperatures -aspiration precautions -REnal f.u Thank you for consulting [facility]. Will continue to follow along with you. Discussed with RN and Dr Treviño. Subjective Allergies: Coded Allergies: No Known Allergies (Unverified , 10/10/19) afebrile leukocytosis resolved Bcx NTD sp thoracentesis yesterday Objective Last 24 Hour Vital Signs Date Time Temp Pulse Resp B/P (MAP) Pulse Ox O2 Delivery O2 Flow Rate FiO2 09/04/20 08:01 97 Nasal Cannula 2.0 28 09/04/20 08:01 81 16 97 Nasal Cannula 2.0 28 09/04/20 08:00 84 09/04/20 08:00 97.0 84 18 151/64 (93) 96 11/12/20 06:02 124/82 09/04/20 05:22 79 09/04/20 05:19 81 20 99 Nasal Cannula 2.0 28 77 20 96 09/04/20 04:00 96.9 76 24 124/87 (99) 98 09/04/20 00:00 74 09/04/20 00:00 96.8 78 20 122/69 (86) 97 09/03/20 21:27 115/70 09/03/20 21:00 Nasal Cannula 2.0 09/03/20 20:19 96 Nasal Cannula 2.0 28 09/03/20 20:19 77 16 96 Nasal Cannula 2.0 28 09/03/20 20:00 91 09/03/20 20:00 96.3 78 24 115/70 (85) 97 09/03/20 16:00 97.7 76 20 132/81 (98) 97 09/03/20 16:00 76 09/03/20 13:34 130/86 09/03/20 12:00 72 09/03/20 12:00 97.9 72 19 130/86 (101) 97 Height (Feet): 5 Height (Inches): 10.00 Weight (Pounds): 218 GENERAL: Calm in bed, oriented x3, slight short of breath. CARDIOVASCULAR: No murmur. LUNGS: Poor exchange. ABDOMEN: Bowel sounds distant. EXTREMITIES: No cyanosis, clubbing, or edema. NEUROLOGIC: The patient moves all extremities, slightly weak. Microbiology Date/Time Source Procedure Growth Status 09/03/20 14:03 Ascities Fluid Gram Stain - Final Resulted 09/03/20 14:03 Ascities Fluid Body Fluid Culture - Preliminary NO GROWTH Resulted 09/02/20 16:40 Blood Blood Culture - Preliminary NO GROWTH AFTER 24 HOURS Resulted 09/02/20 16:30 Blood Blood Culture - Preliminary NO GROWTH AFTER 24 HOURS Resulted 09/01/20 14:08 Nasopharynx - Final Complete 09/01/20 14:08 Nasopharynx - Final Complete Laboratory Tests Test 09/03/20 14:03 09/03/20 17:14 09/03/20 22:05 09/04/20 06:09 Body Fluid Source Thoracentesis Body Fluid Volume 27 mL Body Fluid Appearance Yellow, clear (Clear) Body Fluid RBC 50 /CUMM Body Fluid Total Nucleated Cells 25 /CUMM Body Fluid Polynuclear WBCs (%) 21 % Body Fluid Mononuclear WBCs (%) 73 % Body Fluid Mesothelial Cells (%) 6 % Body Fluid Glucose Pending Body Fluid Total Protein Pending Body Fluid Comment Na POC Whole Blood Glucose 182 MG/DL (74-106) H Pending 91 MG/DL (74-106) Test 09/04/20 06:20 09/04/20 09:00 09/04/20 10:30 White Blood Count 10.5 K/UL (4.8-10.8) Red Blood Count 3.02 M/UL (4.20-5.40) L Hemoglobin 9.0 G/DL (12.0-16.0) L Hematocrit 28.8 % (37.0-47.0) L Mean Corpuscular Volume 95 FL (80-99) Mean Corpuscular Hemoglobin 29.8 PG (27.0-31.0) Mean Corpuscular Hemoglobin Concent 31.2 G/DL (32.0-36.0) L Red Cell Distribution Width 17.1 % (11.6-14.8) H Platelet Count 169 K/UL (150-450) Mean Platelet Volume 8.2 FL (6.5-10.1) Neutrophils (%) (Auto) 82.2 % (45.0-75.0) H Lymphocytes (%) (Auto) 7.4 % (20.0-45.0) L Monocytes (%) (Auto) 8.3 % (1.0-10.0) Eosinophils (%) (Auto) 1.1 % (0.0-3.0) Basophils (%) (Auto) 1.0 % (0.0-2.0) Sodium Level 139 MMOL/L (136-145) Potassium Level 3.6 MMOL/L (3.5-5.1) Chloride Level 104 MMOL/L (98-107) Carbon Dioxide Level 24 MMOL/L (21-32) Anion Gap 11 mmol/L (5-15) Blood Urea Nitrogen 93 mg/dL (7-18) H Creatinine 4.1 MG/DL (0.55-1.30) H 4.1 MG/DL (0.55-1.30) H Estimat Glomerular Filtration Rate 10.8 mL/min (>60) 10.8 mL/min (>60) Glucose Level 95 MG/DL (74-106) Uric Acid 8.9 MG/DL (2.6-7.2) H Calcium Level 7.7 MG/DL (8.5-10.1) L Phosphorus Level 5.6 MG/DL (2.5-4.9) H Magnesium Level 2.3 MG/DL (1.8-2.4) Total Bilirubin 0.7 MG/DL (0.2-1.0) Aspartate Amino Transf (AST/SGOT) 21 U/L (15-37) Alanine Aminotransferase (ALT/SGPT) 13 U/L (12-78) Alkaline Phosphatase 162 U/L (46-116) H C-Reactive Protein, Quantitative 7.5 mg/dL (0.00-0.90) H Pro-B-Type Natriuretic Peptide 31816 pg/mL (0-125) H Total Protein 7.2 G/DL (6.4-8.2) Albumin 2.5 G/DL (3.4-5.0) L Globulin 4.7 g/dL Albumin/Globulin Ratio 0.5 (1.0-2.7) L Urine Collection Time 24 HRS Urine Total Volume 500 ML Urine Creatinine 51 MG/DL Urine Creatinine 24 Hour 255 mg/24hr (740-1570) L Patient Height Inches (Creat Clear) 70 INCHES Patient Weight Pounds (Creat Clear) 218 LBS Creatinine Clearance 3 mL/min (71-151) L Urine Total Protein mg/dL 60 mg/dL Urine Total Protein 24 Hour 300.0 mg/24hr (< 150) H Arterial Blood pH 7.359 (7.350-7.450) Arterial Blood Partial Pressure CO2 39.0 mmHg (35.0-45.0) Arterial Blood Partial Pressure O2 91.6 mmHg (75.0-100.0) Arterial Blood HCO3 21.5 mmol/L (22.0-26.0) L Arterial Blood Oxygen Saturation 96.5 % (95-100) Arterial Blood Base Excess -3.6 (-2-2) L Geoffrey Test Positive Current Medications Medications (Trade) Dose Ordered Sig/Braeden Route PRN Reason Start Time Stop Time Status Last Admin Dose Admin Acetaminophen (Tylenol) 650 mg Q4H PRN ORAL FEVER 08/30/20 23:45 09/29/20 23:44 Albuterol/ Ipratropium (Albuterol/ Ipratropium) 3 ml Q4H PRN HHN Shortness of Breath 09/03/20 13:00 09/08/20 12:59 09/04/20 05:15 Allopurinol (allopurinoL) 300 mg DAILY ORAL 08/31/20 09:00 09/30/20 08:59 09/04/20 08:48 Ceftaroline Fosamil 300 mg/ Sodium Chloride 55 ml @ 55 mls/hr Q12HR IV 09/03/20 21:00 09/10/20 20:59 09/04/20 09:58 Dextrose (Dextrose 50%) 25 ml Q30M PRN IV Hypoglycemia 08/30/20 23:45 11/28/20 23:44 Dextrose (Dextrose 50%) 50 ml Q30M PRN IV Hypoglycemia 08/30/20 23:45 11/28/20 23:44 Folic Acid (Folate) 3 mg DAILY ORAL 09/02/20 09:00 10/02/20 08:59 09/04/20 08:48 Furosemide (Lasix) 80 mg EVERY 12 HOURS IV 09/02/20 21:00 09/30/20 20:59 09/04/20 08:49 Gabapentin (Neurontin) 300 mg DAILY ORAL 08/31/20 09:00 09/30/20 08:59 09/04/20 08:48 Heparin Sodium (Porcine) (Heparin 5000 units/ml) 5,000 units EVERY 12 HOURS SUBQ 08/31/20 09:00 10/15/20 08:59 09/03/20 21:30 Hydralazine HCl (Apresoline) 75 mg Q8HR ORAL 09/02/20 14:00 11/29/20 00:00 09/04/20 06:02 Insulin Aspart (NovoLOG) BEFORE MEALS AND HS SUBQ 08/31/20 06:30 11/29/20 06:29 09/03/20 22:07 Levofloxacin 100 ml @ 100 mls/hr Q48H IVPB 09/04/20 18:00 09/11/20 17:59 Levothyroxine Sodium (Synthroid) 100 mcg DAILY@0630 ORAL 09/02/20 06:30 10/02/20 06:29 09/04/20 06:00 Metoclopramide HCl (Reglan) 5 mg THREE TIMES A DAY ORAL 08/31/20 13:00 09/30/20 12:59 09/04/20 08:49 Morphine Sulfate (Morphine Sulfate) 2 mg Q4H PRN IVP For Pain 09/01/20 02:50 09/08/20 02:59 09/01/20 03:04 Ondansetron HCl (Zofran) 4 mg Q6H PRN IVP Nausea & Vomiting 08/30/20 23:45 09/29/20 23:44 Pantoprazole (Protonix) 40 mg EVERY 12 HOURS ORAL 08/31/20 21:00 09/30/20 20:59 09/04/20 08:48 Polyethylene Glycol (Miralax) 17 gm DAILYPRN PRN ORAL Constipation 08/30/20 23:45 09/29/20 23:44 Promethazine HCl/ Codeine (Phenergan with Codeine) 5 ml Q6H PRN ORAL cough 08/30/20 23:45 09/29/20 23:44 Marielena Etienne M.D. Sep 04, 2020 11:42
[2020-09-04 12:00] VITALS: BP 149/71
--- NOTE | 2020-09-04 13:20 | General Progress Note ---
Subjective Constitutional: Reports: weakness Respiratory: Reports: shortness of breath Allergies: Coded Allergies: No Known Allergies (Unverified , 10/10/19) All Systems: reviewed and negative except above Subjective o2nc calm Objective Last 24 Hour Vital Signs Date Time Temp Pulse Resp B/P (MAP) Pulse Ox O2 Delivery O2 Flow Rate FiO2 09/04/20 08:01 97 Nasal Cannula 2.0 28 09/04/20 08:01 81 16 97 Nasal Cannula 2.0 28 09/04/20 08:00 84 09/04/20 08:00 97.0 84 18 151/64 (93) 96 09/04/20 06:02 124/82 09/04/20 05:22 79 09/04/20 05:19 81 20 99 Nasal Cannula 2.0 28 77 20 96 09/04/20 04:00 96.9 76 24 124/87 (99) 98 09/04/20 00:00 74 09/04/20 00:00 96.8 78 20 122/69 (86) 97 09/03/20 21:27 115/70 09/03/20 21:00 Nasal Cannula 2.0 09/03/20 20:19 96 Nasal Cannula 2.0 28 09/03/20 20:19 77 16 96 Nasal Cannula 2.0 28 09/03/20 20:00 91 09/03/20 20:00 96.3 78 24 115/70 (85) 97 09/03/20 16:00 97.7 76 20 132/81 (98) 97 09/03/20 16:00 76 09/03/20 13:34 130/86 Intake and Output 09/03/20 09/04/20 19:00 07:00 Intake Total 300 ml 120 ml Output Total 200 ml Balance 100 ml 120 ml Intake Oral 300 ml 120 ml Output Urine Total 200 ml # Bowel Movements 2 1 Laboratory Tests 09/03/20 14:03: Body Fluid Source Thoracentesis, Body Fluid Volume 27, Body Fluid Appearance Yellow, clear, Body Fluid RBC 50, Body Fluid Total Nucleated Cells 25, Body Fluid Polynuclear WBCs (%) 21, Body Fluid Mononuclear WBCs (%) 73, Body Fluid Mesothelial Cells (%) 6, Body Fluid Glucose [Pending], Body Fluid Total Protein [Pending], Body Fluid Comment Na 09/03/20 17:14: POC Whole Blood Glucose 182H 09/03/20 22:05: POC Whole Blood Glucose [Pending] 09/04/20 06:09: POC Whole Blood Glucose 91 09/04/20 06:20: White Blood Count 10.5, Red Blood Count 3.02L, Hemoglobin 9.0L, Hematocrit 28.8L , Mean Corpuscular Volume 95, Mean Corpuscular Hemoglobin 29.8, Mean Corpuscular Hemoglobin Concent 31.2L, Red Cell Distribution Width 17.1H, Platelet Count 169, Mean Platelet Volume 8.2, Neutrophils (%) (Auto) 82.2H, Lymphocytes (%) (Auto) 7.4L, Monocytes (%) (Auto) 8.3, Eosinophils (%) (Auto) 1.1, Basophils (%) (Auto) 1.0, Sodium Level 139, Potassium Level 3.6, Chloride Level 104, Carbon Dioxide Level 24, Anion Gap 11, Blood Urea Nitrogen 93H, Creatinine 4.1H, Estimat Glomerular Filtration Rate 10.8, Glucose Level 95, Uric Acid 8.9H, Calcium Level 7.7L, Phosphorus Level 5.6H, Magnesium Level 2.3, Total Bilirubin 0.7, Aspartate Amino Transf (AST/SGOT) 21, Alanine Aminotransferase (ALT/SGPT) 13, Alkaline Phosphatase 162H, C-Reactive Protein, Quantitative 7.5H, Pro-B-Type Natriuretic Peptide 94333R, Total Protein 7.2, Albumin 2.5L, Globulin 4.7, Albumin/Globulin Ratio 0.5L 09/04/20 09:00: Creatinine 4.1H, Estimat Glomerular Filtration Rate 10.8, Urine Collection Time 24, Urine Total Volume 500, Urine Creatinine 51, Urine Creatinine 24 Hour 255L, Patient Height Inches (Creat Clear) 70, Patient Weight Pounds (Creat Clear) 218, Creatinine Clearance 3L, Urine Total Protein mg/dL 60, Urine Total Protein 24 Hour 300.0H 09/04/20 10:30: Arterial Blood pH 7.359, Arterial Blood Partial Pressure CO2 39.0, Arterial Blood Partial Pressure O2 91.6, Arterial Blood HCO3 21.5L, Arterial Blood Oxygen Saturation 96.5, Arterial Blood Base Excess -3.6L, Geoffrey Test Positive Height (Feet): 5 Height (Inches): 10.00 Weight (Pounds): 218 General Appearance: lethargic EENT: normal ENT inspection Neck: normal alignment Cardiovascular: normal peripheral pulses, normal rate, regular rhythm Respiratory/Chest: chest wall non-tender, lungs clear, normal breath sounds Abdomen: normal bowel sounds, non tender, soft Extremities: normal inspection Edema: 1+ Arm (L), 1+ Arm (R), 1+ Leg (L), 1+ Leg (R), 1+ Pedal (L), 1+ Pedal (R), 1+ Generalized Edema: trace edema Neurologic: motor weakness Skin: normal pigmentation, warm/dry Assessment/Plan Problem List: (1) UTI (urinary tract infection) ICD Codes: N39.0 - Urinary tract infection, site not specified SNOMED: 78688583 (2) Acute respiratory failure ICD Codes: J96.00 - Acute respiratory failure, unspecified whether with hypoxia or hypercapnia SNOMED: 92952003 (3) History of hypertension ICD Codes: Z86.79 - Personal history of other diseases of the circulatory system SNOMED: 389269230 (4) Diabetes mellitus ICD Codes: E11.9 - Type 2 diabetes mellitus without complications SNOMED: 99580710 (5) Renal failure (ARF), acute on chronic ICD Codes: N17.9 - Acute kidney failure, unspecified; N18.9 - Chronic kidney disease, unspecified SNOMED: 754269604 Status: unchanged Assessment/Plan: o2 pulm tx abx pt diet cbc bmp am aru eval rheum eval Dyllan Wisdom DO Sep 04, 2020 13:20
[2020-09-04] MEDS: Indomethacin 25mg cap ORAL SCH ×2 (13:29→16:20)
--- NOTE | 2020-09-04 14:27 | Diagnostic Imaging Report ---
Indication: Dyspnea Technique: One view of the chest Comparison: 09/03/2020 Findings: Bilateral interstitial and airspace infiltrates versus edema, cardiomegaly persists. There may be a small right pleural effusion. Impression: Unchanged, over one day, findings as above.
[2020-09-04 16:00] VITALS: BP 144/81
--- NOTE | 2020-09-04 18:02 | Surgery Progress Note ---
Surgery Progress Note Subjective Symptoms: improved, tolerating diet, passing flatus Objective Last 24 Hour Vital Signs Date Time Temp Pulse Resp B/P (MAP) Pulse Ox O2 Delivery O2 Flow Rate FiO2 09/04/20 16:00 98.9 69 20 144/81 (102) 96 09/04/20 13:29 149/71 09/04/20 12:00 82 09/04/20 12:00 98.7 82 20 149/71 (97) 98 09/04/20 09:00 Nasal Cannula 2.0 Nasal Cannula 2.0 09/04/20 08:01 97 Nasal Cannula 2.0 28 09/04/20 08:01 81 16 97 Nasal Cannula 2.0 28 09/04/20 08:00 84 09/04/20 08:00 97.0 84 18 151/64 (93) 96 09/04/20 06:02 124/82 09/04/20 05:22 79 09/04/20 05:19 81 20 99 Nasal Cannula 2.0 28 77 20 96 09/04/20 04:00 96.9 76 24 124/87 (99) 98 09/04/20 00:00 74 09/04/20 00:00 96.8 78 20 122/69 (86) 97 09/03/20 21:27 115/70 09/03/20 21:00 Nasal Cannula 2.0 09/03/20 20:19 96 Nasal Cannula 2.0 28 09/03/20 20:19 77 16 96 Nasal Cannula 2.0 28 09/03/20 20:00 91 09/03/20 20:00 96.3 78 24 115/70 (85) 97 I&O Intake and Output 09/03/20 09/04/20 19:00 07:00 Intake Total 300 ml 120 ml Output Total 200 ml Balance 100 ml 120 ml Intake Oral 300 ml 120 ml Output Urine Total 200 ml # Bowel Movements 2 1 Dressing: saturated Cardiovascular: RSR Respiratory: decreased breath sounds Abdomen: non-tender, present bowel sounds Extremities: no edema, no tenderness, no cyanosis Laboratory Tests Test 09/03/20 22:05 09/04/20 06:09 09/04/20 06:20 09/04/20 09:00 POC Whole Blood Glucose Pending 91 MG/DL (74-106) White Blood Count 10.5 K/UL (4.8-10.8) Red Blood Count 3.02 M/UL (4.20-5.40) L Hemoglobin 9.0 G/DL (12.0-16.0) L Hematocrit 28.8 % (37.0-47.0) L Mean Corpuscular Volume 95 FL (80-99) Mean Corpuscular Hemoglobin 29.8 PG (27.0-31.0) Mean Corpuscular Hemoglobin Concent 31.2 G/DL (32.0-36.0) L Red Cell Distribution Width 17.1 % (11.6-14.8) H Platelet Count 169 K/UL (150-450) Mean Platelet Volume 8.2 FL (6.5-10.1) Neutrophils (%) (Auto) 82.2 % (45.0-75.0) H Lymphocytes (%) (Auto) 7.4 % (20.0-45.0) L Monocytes (%) (Auto) 8.3 % (1.0-10.0) Eosinophils (%) (Auto) 1.1 % (0.0-3.0) Basophils (%) (Auto) 1.0 % (0.0-2.0) Sodium Level 139 MMOL/L (136-145) Potassium Level 3.6 MMOL/L (3.5-5.1) Chloride Level 104 MMOL/L (98-107) Carbon Dioxide Level 24 MMOL/L (21-32) Anion Gap 11 mmol/L (5-15) Blood Urea Nitrogen 93 mg/dL (7-18) H Creatinine 4.1 MG/DL (0.55-1.30) H 4.1 MG/DL (0.55-1.30) H Estimat Glomerular Filtration Rate 10.8 mL/min (>60) 10.8 mL/min (>60) Glucose Level 95 MG/DL (74-106) Uric Acid 8.9 MG/DL (2.6-7.2) H Calcium Level 7.7 MG/DL (8.5-10.1) L Phosphorus Level 5.6 MG/DL (2.5-4.9) H Magnesium Level 2.3 MG/DL (1.8-2.4) Total Bilirubin 0.7 MG/DL (0.2-1.0) Aspartate Amino Transf (AST/SGOT) 21 U/L (15-37) Alanine Aminotransferase (ALT/SGPT) 13 U/L (12-78) Alkaline Phosphatase 162 U/L (46-116) H C-Reactive Protein, Quantitative 7.5 mg/dL (0.00-0.90) H Pro-B-Type Natriuretic Peptide 66089 pg/mL (0-125) H Total Protein 7.2 G/DL (6.4-8.2) Albumin 2.5 G/DL (3.4-5.0) L Globulin 4.7 g/dL Albumin/Globulin Ratio 0.5 (1.0-2.7) L Urine Collection Time 24 HRS Urine Total Volume 500 ML Urine Creatinine 51 MG/DL Urine Creatinine 24 Hour 255 mg/24hr (740-1570) L Patient Height Inches (Creat Clear) 70 INCHES Patient Weight Pounds (Creat Clear) 218 LBS Creatinine Clearance 3 mL/min (71-151) L Urine Total Protein mg/dL 60 mg/dL Urine Total Protein 24 Hour 300.0 mg/24hr (< 150) H Test 09/04/20 10:30 Arterial Blood pH 7.359 (7.350-7.450) Arterial Blood Partial Pressure CO2 39.0 mmHg (35.0-45.0) Arterial Blood Partial Pressure O2 91.6 mmHg (75.0-100.0) Arterial Blood HCO3 21.5 mmol/L (22.0-26.0) L Arterial Blood Oxygen Saturation 96.5 % (95-100) Arterial Blood Base Excess -3.6 (-2-2) L Geoffrey Test Positive Plan Problems: (1) Acute on chronic diastolic (congestive) heart failure (2) Anemia (3) Acute respiratory failure Assessment & Plan: Large right pleural effusion persists, unchanged. Bilateral interstitial and airspace edema, cardiomegaly persists, probably unchanged allowing for differences in technique and inspiration (4) ACS (acute coronary syndrome) (5) History of hypertension (6) Moderate pulmonary arterial systolic hypertension (7) Left bundle branch block (LBBB) (8) Diabetes mellitus (9) Diabetic nephropathy (10) Renal failure (ARF), acute on chronic (11) Hyperkalemia (12) Bacteremia (13) CAD (coronary artery disease) (14) Hypothyroidism (15) Cardiac left ventricular ejection fraction greater than 40 percent (16) Grade I diastolic dysfunction (17) UTI (urinary tract infection) (18) Ulcers of both lower legs (19) Open wounds involving multiple regions of lower extremity Assessment & Plan: Patient identified admission having bilateral lower extremity edema open wounds as well as necrotic ulcerations. Patient states she has had this for some time now and acutely worsening as well. Bilateral lower leg wounds do to blisters from edema. Right medial lower leg wound 2.1x4.2x0.2 dark brown scab . Right anterior lower leg wound 5.6x5.3x0.2 pink wound bed. Right distal anterior lower leg 4.0x6.0x0.2 pink wound bed . Large amount serous drainage right leg wounds , Xeroform ,gauze,abd pad and kerlix applied change every shift. Left lower leg wound 3.7x5.0x0.3 100% green slough large amount serous drainage noted with small blisters ifeoma wound, Thera Honey, gauze,abd pad and kerlix applied, change every shift. Local wound care plan initiate Nutritional optimization Turn every 2 hours Elevate extremities Thank you will follow recommendations Right deep veins: Unremarkable. No DVT in the right common femoral, femoral, proximal deep femoral or popliteal veins. The veins demonstrate normal color flow, are normally compressible, with normal phasic flow and/or augmentation response. Right superficial veins: Unremarkable. No thrombus in the visualized right great saphenous vein. Left deep veins: Unremarkable. No DVT in the left common femoral, femoral, proximal deep femoral or popliteal veins. The veins demonstrate normal color flow, are normally compressible, with normal phasic flow and/or augmentation response. Left superficial veins: Unremarkable. No thrombus in the visualized left great saphenous vein. Soft tissues: No acute findings. No popliteal cyst. IMPRESSION: Normal bilateral lower extremity duplex venous ultrasound. DAILY ESTIMATED NEEDS: Needs based on ARF, now HD 65.7kg abw 25-30 kcals/kg 1119-2413 total kcals 1.25-1.8 g protein/kg 82-118 g total protein Fluid per MD, HD pending NUTRITION DIAGNOSIS: Increased pro needs r/t renal dysfunction as evidenced by pt w/ ARF, w/ now pending HD, K on adm (5.8), elev BUN (81), elev Creat (3.8), elev phos and mg. CURRENT DIET:Renal/ CCHO MED PO DIET RECOMMENDATIONS: Renal / CCHO LOW diet + high pro snacks in b/w meals ADDITIONAL RECOMMENDATIONS: 1) Maintain calibrated bed scale wts 2) High pro snacks in b/w meals 3) Rec WC eval-> add nephrovite 1 tab daily Vit C per Omar Jolley Sep 04, 2020 18:02
[2020-09-04 20:00] VITALS: BP 117/82
[2020-09-05] VITALS (10 sets, daily range): BP systolic 106–155; BP diastolic 57–74
[2020-09-05] MEDS: Morphine Sulfate 2mg/ml Inj(IV/IM USE ONLY) IVP PRN (05:09)
[2020-09-05] MEDS: NovoLOG Insulin Flexpen SUBQ SCH ×4 (05:55→21:00)
[2020-09-05] MEDS: HydrALAZINE 25mg tab ORAL SCH ×3 (05:55→22:00)
[2020-09-05 06:47] LABS: BASOPHILS % (AUTO) 1.2 % (0.0-2.0); EOSINOPHILS % (AUTO) 1.8 % (0.0-3.0); HEMATOCRIT 28.1 % (37.0-47.0); HEMOGLOBIN 8.4 G/DL (12.0-16.0); LYMPHOCYTES % (AUTO) 7.1 % (20.0-45.0); MEAN CORPUSCULAR VOLUME 97 FL (80-99); MONOCYTES % (AUTO) 8.6 % (1.0-10.0); NEUTROPHILS % (AUTO) 81.3 % (45.0-75.0); PLATELET COUNT 133 K/UL (150-450); RED CELL DISTRIBUTION WIDTH 16.8 % (11.6-14.8); WHITE BLOOD COUNT 8.6 K/UL (4.8-10.8)
[2020-09-05 07:16] LABS: ALBUMIN 2.3 G/DL (3.4-5.0); ALBUMIN/GLOBULIN RATIO 0.5 (1.0-2.7); BILIRUBIN,TOTAL 0.7 MG/DL (0.2-1.0); CALCIUM 7.5 MG/DL (8.5-10.1); CREATININE 4.5 MG/DL (0.55-1.30); PHOSPHORUS 5.9 MG/DL (2.5-4.9); POTASSIUM 3.6 MMOL/L (3.5-5.1)
[2020-09-05] MEDS: Indomethacin 25mg cap ORAL SCH ×3 (08:33→17:15)
[2020-09-05] MEDS: Heparin 5000 units/ml inj SUBQ SCH (08:35)
--- NOTE | 2020-09-05 08:39 | General Progress Note ---
Subjective Constitutional: Reports: weakness Respiratory: Reports: shortness of breath Allergies: Coded Allergies: No Known Allergies (Unverified , 10/10/19) All Systems: reviewed and negative except above Subjective o2nc calm Objective Last 24 Hour Vital Signs Date Time Temp Pulse Resp B/P (MAP) Pulse Ox O2 Delivery O2 Flow Rate FiO2 09/05/20 05:55 110/63 09/05/20 05:39 96.3 09/05/20 04:00 75 09/05/20 04:00 96.5 73 22 110/63 (79) 96 09/05/20 00:00 96.3 77 20 124/69 (87) 97 09/05/20 00:00 77 09/04/20 22:00 117/82 09/04/20 21:00 Nasal Cannula 2.0 Nasal Cannula 2.0 09/04/20 20:00 96.1 76 22 117/82 (94) 99 09/04/20 20:00 74 09/04/20 19:40 77 16 97 Nasal Cannula 2.0 28 09/04/20 19:40 97 Nasal Cannula 2.0 28 09/04/20 16:00 80 09/04/20 16:00 98.9 69 20 144/81 (102) 96 09/04/20 13:29 149/71 09/04/20 12:00 82 09/04/20 12:00 98.7 82 20 149/71 (97) 98 09/04/20 09:00 Nasal Cannula 2.0 Nasal Cannula 2.0 Intake and Output 09/04/20 09/05/20 19:00 07:00 Intake Total 200 ml 200 ml Output Total 300 ml 500 ml Balance -100 ml -300 ml Intake Oral 200 ml 200 ml Output Urine Total 300 ml 500 ml # Bowel Movements 2 Laboratory Tests 09/04/20 09:00: Urine Collection Time 24, Urine Total Volume 500, Urine Creatinine 51, Urine Creatinine 24 Hour 255L, Patient Height Inches (Creat Clear) 70, Patient Weight Pounds (Creat Clear) 218, Creatinine Clearance 3L, Urine Total Protein mg/dL 60, Urine Total Protein 24 Hour 300.0H, Creatinine 4.1H, Estimat Glomerular Filtration Rate 10.8 09/04/20 10:30: Arterial Blood pH 7.359, Arterial Blood Partial Pressure CO2 39.0, Arterial Blood Partial Pressure O2 91.6, Arterial Blood HCO3 21.5L, Arterial Blood Oxygen Saturation 96.5, Arterial Blood Base Excess -3.6L, Geoffrey Test Positive 09/04/20 11:47: POC Whole Blood Glucose 139H 09/04/20 16:23: POC Whole Blood Glucose 130H 09/04/20 21:10: POC Whole Blood Glucose 165H 09/05/20 05:30: White Blood Count 8.6, Red Blood Count 2.90L, Hemoglobin 8.4L, Hematocrit 28.1L, Mean Corpuscular Volume 97, Mean Corpuscular Hemoglobin 29.0, Mean Corpuscular Hemoglobin Concent 29.9L, Red Cell Distribution Width 16.8H, Platelet Count 133L , Mean Platelet Volume 7.5, Neutrophils (%) (Auto) 81.3H, Lymphocytes (%) (Auto) 7.1L, Monocytes (%) (Auto) 8.6, Eosinophils (%) (Auto) 1.8, Basophils (%) (Auto) 1.2, Erythrocyte Sedimentation Rate 48H, Sodium Level 140, Potassium Level 3.6, Chloride Level 106, Carbon Dioxide Level 23, Anion Gap 12, Blood Urea Nitrogen 101H, Creatinine 4.5H, Estimat Glomerular Filtration Rate 9.7, Glucose Level 100, Calcium Level 7.5L, Phosphorus Level 5.9H, Magnesium Level 2.3, Total Bilirubin 0.7, Aspartate Amino Transf (AST/SGOT) 20, Alanine Aminotransferase (ALT/SGPT) 13, Alkaline Phosphatase 143H, C-Reactive Protein, Quantitative 9.1H, Total Protein 6.8, Albumin 2.3L, Globulin 4.5, Albumin/Globulin Ratio 0.5L 09/05/20 05:53: POC Whole Blood Glucose 109H Height (Feet): 5 Height (Inches): 10.00 Weight (Pounds): 218 General Appearance: lethargic EENT: normal ENT inspection Neck: normal alignment Cardiovascular: normal peripheral pulses, normal rate, regular rhythm Respiratory/Chest: chest wall non-tender, lungs clear, normal breath sounds Abdomen: normal bowel sounds, non tender, soft Extremities: normal inspection Edema: no edema noted Arm (L), no edema noted Arm (R), no edema noted Leg (L), no edema noted Leg (R), no edema noted Pedal (L), no edema noted Pedal (R), no edema noted Generalized Neurologic: motor weakness Skin: normal pigmentation, warm/dry Assessment/Plan Problem List: (1) UTI (urinary tract infection) ICD Codes: N39.0 - Urinary tract infection, site not specified SNOMED: 36579455 (2) Acute respiratory failure ICD Codes: J96.00 - Acute respiratory failure, unspecified whether with hypoxia or hypercapnia SNOMED: 03082698 (3) History of hypertension ICD Codes: Z86.79 - Personal history of other diseases of the circulatory system SNOMED: 493472684 (4) Diabetes mellitus ICD Codes: E11.9 - Type 2 diabetes mellitus without complications SNOMED: 00879769 (5) Renal failure (ARF), acute on chronic ICD Codes: N17.9 - Acute kidney failure, unspecified; N18.9 - Chronic kidney disease, unspecified SNOMED: 713647762 Status: unchanged Assessment/Plan: o2 pulm tx abx pt diet cbc bmp am aru eval rheum eval Dyllan Wisdom DO Sep 05, 2020 08:39
[2020-09-05] MEDS: NS IV SCH (08:50)
[2020-09-05] MEDS: CEFTAROLINE IV SCH (08:50)
--- NOTE | 2020-09-05 09:49 | Nephrology Progress Note ---
Assessment/Plan Problem List: (1) Renal failure (ARF), acute on chronic (2) Hyperkalemia (3) Hypothyroidism (4) Acute on chronic diastolic (congestive) heart failure (5) Diabetic nephropathy (6) Pneumonia Assessment: Leukocytosis, abnormal chest x-ray (7) Anemia Assessment 1) Renal failure (ARF), acute on chronic (2) Diabetes mellitus (3) Hypoglycemia (4) Hyperkalemia (5) Diabetic nephropathy (6) H/o Pleural effusion (7) Morbid obesity (8) Low Iron Anemia (9) HypoThyroidism Plan September 05: New 24-hour urine suggestive of creatinine clearance of 3. Patient due for insertion of dialysis catheter. Hemodialysis and ultrafiltration after insertion of catheter. September 04: New 24-hour urine test is in process. Discussed with RN. Patient was short of breath overnight. ABG ordered. 1 dose of Zaroxolyn ordered. Patient has fluid overload, and need ultrafiltration. Blood cultures negative. Leukocytosis resolved. Will order placement of permacath and dialysis and ultrafiltration. September 03: The 24-hour urine results appears to be an error in view of total volume compared to intake and output records. Today's labs reviewed. Serum creatinine higher. Talk to the nursing charge of the floor and will order another 24-hour urine collection. Meanwhile continue per ID treatment for UTI and leukocytosis. Dexamethasone on the medication list was questioned. Patient may require dialysis if continues to have worsening renal parameters. September 02: Consent for dialysis catheter is taken. Catheter placement deferred due to leukocytosis. Surveillance blood culture ordered. Urine culture ordered. Blood pressure medication adjusted. 24-hour urine for creatinine clearance and total protein pending. Previously: Chan Cath 24 H CrCl and total protein ordered Off IV fluids, on IV Lasix Adjust BP meds Previous 2D echocardiogram ejection fraction is reported to 50% Previous Kidney ultrasound noted. Current kidney ultrasound results below Anemia work-up As needed Kayexalate for high potassium Keep blood pressure and blood sugar in check Monitor renal parameters Requires HD treatment [facility] IMPRESSION: 1. Ascites. 2. Bilateral pleural effusions. 3. Complex right renal cysts of uncertain etiology. This complex cyst is unchanged from the study of 01/12/2020. 4. Mildly atrophic right kidney. 5. Magnetic resonance imaging of the abdomen with gadolinium administration is advised for further evaluation of complex right renal cyst. Subjective ROS Limited/Unobtainable: No Constitutional: Reports: malaise Objective Objective Last 24 Hour Vital Signs Date Time Temp Pulse Resp B/P (MAP) Pulse Ox O2 Delivery O2 Flow Rate FiO2 09/05/20 06:30 96 Nasal Cannula 2.0 28 09/05/20 06:30 78 18 97 Nasal Cannula 2.0 28 09/05/20 05:55 110/63 09/05/20 05:39 96.3 09/05/20 04:00 75 09/05/20 04:00 96.5 73 22 110/63 (79) 96 09/05/20 00:00 96.3 77 20 124/69 (87) 97 09/05/20 00:00 77 09/04/20 22:00 117/82 09/04/20 21:00 Nasal Cannula 2.0 Nasal Cannula 2.0 09/04/20 20:00 96.1 76 22 117/82 (94) 99 09/04/20 20:00 74 09/04/20 19:40 77 16 97 Nasal Cannula 2.0 28 09/04/20 19:40 97 Nasal Cannula 2.0 28 09/04/20 16:00 80 09/04/20 16:00 98.9 69 20 144/81 (102) 96 09/04/20 13:29 149/71 09/04/20 12:00 82 09/04/20 12:00 98.7 82 20 149/71 (97) 98 Intake and Output 09/04/20 09/05/20 19:00 07:00 Intake Total 200 ml 200 ml Output Total 300 ml 500 ml Balance -100 ml -300 ml Intake Oral 200 ml 200 ml Output Urine Total 300 ml 500 ml # Bowel Movements 2 Laboratory Tests 09/04/20 10:30: Arterial Blood pH 7.359, Arterial Blood Partial Pressure CO2 39.0, Arterial Blood Partial Pressure O2 91.6, Arterial Blood HCO3 21.5L, Arterial Blood Oxygen Saturation 96.5, Arterial Blood Base Excess -3.6L, Geoffrey Test Positive 09/04/20 11:47: POC Whole Blood Glucose 139H 09/04/20 16:23: POC Whole Blood Glucose 130H 09/04/20 21:10: POC Whole Blood Glucose 165H 09/05/20 05:30: White Blood Count 8.6, Red Blood Count 2.90L, Hemoglobin 8.4L, Hematocrit 28.1L, Mean Corpuscular Volume 97, Mean Corpuscular Hemoglobin 29.0, Mean Corpuscular Hemoglobin Concent 29.9L, Red Cell Distribution Width 16.8H, Platelet Count 133L , Mean Platelet Volume 7.5, Neutrophils (%) (Auto) 81.3H, Lymphocytes (%) (Auto) 7.1L, Monocytes (%) (Auto) 8.6, Eosinophils (%) (Auto) 1.8, Basophils (%) (Auto) 1.2, Erythrocyte Sedimentation Rate 48H, Sodium Level 140, Potassium Level 3.6, Chloride Level 106, Carbon Dioxide Level 23, Anion Gap 12, Blood Urea Nitrogen 101H, Creatinine 4.5H, Estimat Glomerular Filtration Rate 9.7, Glucose Level 100, Calcium Level 7.5L, Phosphorus Level 5.9H, Magnesium Level 2.3, Total Bilirubin 0.7, Aspartate Amino Transf (AST/SGOT) 20, Alanine Aminotransferase (ALT/SGPT) 13, Alkaline Phosphatase 143H, C-Reactive Protein, Quantitative 9.1H, Total Protein 6.8, Albumin 2.3L, Globulin 4.5, Albumin/Globulin Ratio 0.5L 09/05/20 05:53: POC Whole Blood Glucose 109H Height (Feet): 5 Height (Inches): 10.00 Weight (Pounds): 218 General Appearance: no apparent distress Cardiovascular: normal rate Respiratory/Chest: decreased breath sounds Abdomen: distended Jay Severino MD Sep 05, 2020 09:49
[2020-09-05] MEDS ORDERED: Heparin1,000 units/500ml Premix(Conc:2 units/ml) IV PRN (10:00)
--- NOTE | 2020-09-05 11:33 | Infectious Diseases Prog Note ---
Assessment/Plan Assessment: Severe Sepsis Pneumonia Acute hypoxic resp failure- on 2l NC R pleural effusion, transudate -09/03 SP Thoracentesis: Successful ultrasound-guided thoracentesis, yielding 680 milliliters of clear yellow fluid; cx NTD -fluid prot 1.4, glucose 198 -09/01 Chest US: Positive for right pleural effusion Incidental finding of ascites, also previously reporte -08/30 CXR: There is again patchy ill-defined airspace opacities at the right greater than left base with some consolidated appearance again seen on the right. There is now patchy ill-defined opacity at the right upper lung. A small right pleural effusion is suggested. The patient is rotated to the right. Status post median sternotomy again noted. -08/30 & rapid covid PCR neg x2 -08/30 Bcx NTD Afebrile Leukocytosis, SP -09/02 Bcx NTD -08/31 u/a no pyuria R arm and R leg cellulitis; improving Recent hx of COVID19- pt clarified initial diagnosis was 2 months ago and not 08/25 as per documentation on EMR. VENANCIO on CKD -REnal US: Ascites. Bilateral pleural effusions. Complex right renal cysts of uncertain etiology. This complex cyst is unchanged from the study of 01/12/2020. Mildly atrophic right kidney.Magnetic resonance imaging of the abdomen with gadolinium administration is advised for further evaluation of complex right renal cyst. HTN dCHF pHTN ascites chronic LE edema DM2 c/w neuropathy iron def anemia Plan: -Continue empiric Teflaro and LEvaquin #6 (abx d #05/02) -08/31 SP Ceftriaxone #2, Azithromcyin #2 -f/u cx -Monitor CBC/CMP, temperatures -aspiration precautions -REnal f.u Thank you for consulting [facility]. Will continue to follow along with you. Discussed with RN and Dr Treviño. Subjective Allergies: Coded Allergies: No Known Allergies (Unverified , 10/10/19) afebrile no leukocytosis at 2l NC Objective Last 24 Hour Vital Signs Date Time Temp Pulse Resp B/P (MAP) Pulse Ox O2 Delivery O2 Flow Rate FiO2 09/05/20 09:00 Nasal Cannula 2.0 Nasal Cannula 2.0 09/05/20 08:00 77 09/05/20 08:00 97.5 78 20 131/62 (85) 95 09/05/20 06:30 96 Nasal Cannula 2.0 28 09/05/20 06:30 78 18 97 Nasal Cannula 2.0 28 09/05/20 05:55 110/63 09/05/20 05:39 96.3 09/05/20 04:00 75 09/05/20 04:00 96.5 73 22 110/63 (79) 96 09/05/20 00:00 96.3 77 20 124/69 (87) 97 09/05/20 00:00 77 09/04/20 22:00 117/82 09/04/20 21:00 Nasal Cannula 2.0 Nasal Cannula 2.0 09/04/20 20:00 96.1 76 22 117/82 (94) 99 09/04/20 20:00 74 09/04/20 19:40 77 16 97 Nasal Cannula 2.0 28 09/04/20 19:40 97 Nasal Cannula 2.0 28 09/04/20 16:00 80 09/04/20 16:00 98.9 69 20 144/81 (102) 96 09/04/20 13:29 149/71 09/04/20 12:00 82 09/04/20 12:00 98.7 82 20 149/71 (97) 98 Height (Feet): 5 Height (Inches): 10.00 Weight (Pounds): 218 GENERAL: Calm in bed, oriented x3, slight short of breath. CARDIOVASCULAR: No murmur. LUNGS: Poor exchange. ABDOMEN: Bowel sounds distant. EXTREMITIES: No cyanosis, clubbing, or edema. NEUROLOGIC: The patient moves all extremities, slightly weak. Microbiology Date/Time Source Procedure Growth Status 09/03/20 14:03 Ascities Fluid Gram Stain - Final Resulted 09/03/20 14:03 Ascities Fluid Body Fluid Culture - Preliminary NO GROWTH Resulted 09/03/20 09:20 Blood Blood Culture - Preliminary NO GROWTH AFTER 24 HOURS Resulted 09/03/20 09:10 Blood Blood Culture - Preliminary NO GROWTH AFTER 24 HOURS Resulted 09/02/20 16:40 Blood Blood Culture - Preliminary NO GROWTH AFTER 48 HOURS Resulted 09/02/20 16:30 Blood Blood Culture - Preliminary NO GROWTH AFTER 48 HOURS Resulted Laboratory Tests Test 09/04/20 11:47 09/04/20 16:23 09/04/20 21:10 09/05/20 05:30 POC Whole Blood Glucose 139 MG/DL (74-106) H 130 MG/DL (74-106) H 165 MG/DL (74-106) H White Blood Count 8.6 K/UL (4.8-10.8) Red Blood Count 2.90 M/UL (4.20-5.40) L Hemoglobin 8.4 G/DL (12.0-16.0) L Hematocrit 28.1 % (37.0-47.0) L Mean Corpuscular Volume 97 FL (80-99) Mean Corpuscular Hemoglobin 29.0 PG (27.0-31.0) Mean Corpuscular Hemoglobin Concent 29.9 G/DL (32.0-36.0) L Red Cell Distribution Width 16.8 % (11.6-14.8) H Platelet Count 133 K/UL (150-450) L Mean Platelet Volume 7.5 FL (6.5-10.1) Neutrophils (%) (Auto) 81.3 % (45.0-75.0) H Lymphocytes (%) (Auto) 7.1 % (20.0-45.0) L Monocytes (%) (Auto) 8.6 % (1.0-10.0) Eosinophils (%) (Auto) 1.8 % (0.0-3.0) Basophils (%) (Auto) 1.2 % (0.0-2.0) Erythrocyte Sedimentation Rate 48 MM/HR (0-30) H Sodium Level 140 MMOL/L (136-145) Potassium Level 3.6 MMOL/L (3.5-5.1) Chloride Level 106 MMOL/L (98-107) Carbon Dioxide Level 23 MMOL/L (21-32) Anion Gap 12 mmol/L (5-15) Blood Urea Nitrogen 101 mg/dL (7-18) H Creatinine 4.5 MG/DL (0.55-1.30) H Estimat Glomerular Filtration Rate 9.7 mL/min (>60) Glucose Level 100 MG/DL (74-106) Calcium Level 7.5 MG/DL (8.5-10.1) L Phosphorus Level 5.9 MG/DL (2.5-4.9) H Magnesium Level 2.3 MG/DL (1.8-2.4) Total Bilirubin 0.7 MG/DL (0.2-1.0) Aspartate Amino Transf (AST/SGOT) 20 U/L (15-37) Alanine Aminotransferase (ALT/SGPT) 13 U/L (12-78) Alkaline Phosphatase 143 U/L (46-116) H C-Reactive Protein, Quantitative 9.1 mg/dL (0.00-0.90) H Total Protein 6.8 G/DL (6.4-8.2) Albumin 2.3 G/DL (3.4-5.0) L Globulin 4.5 g/dL Albumin/Globulin Ratio 0.5 (1.0-2.7) L Hepatitis B Surface Antigen Pending Hepatitis B Surface Antibody, Quant Pending Hepatitis C Antibody Pending Test 09/05/20 05:53 POC Whole Blood Glucose 109 MG/DL (74-106) H Current Medications Medications (Trade) Dose Ordered Sig/Braeden Route PRN Reason Start Time Stop Time Status Last Admin Dose Admin Acetaminophen (Tylenol) 650 mg Q4H PRN ORAL FEVER 08/30/20 23:45 09/29/20 23:44 Albuterol/ Ipratropium (Albuterol/ Ipratropium) 3 ml Q4H PRN HHN Shortness of Breath 09/03/20 13:00 09/08/20 12:59 09/04/20 05:15 Allopurinol (allopurinoL) 300 mg DAILY ORAL 08/31/20 09:00 09/30/20 08:59 09/05/20 08:33 Ceftaroline Fosamil 200 mg/ Sodium Chloride 55 ml @ 55 mls/hr Q12HR IV 09/05/20 21:00 09/10/20 20:59 Dextrose (Dextrose 50%) 25 ml Q30M PRN IV Hypoglycemia 08/30/20 23:45 11/28/20 23:44 Dextrose (Dextrose 50%) 50 ml Q30M PRN IV Hypoglycemia 08/30/20 23:45 11/28/20 23:44 Folic Acid (Folate) 3 mg DAILY ORAL 09/02/20 09:00 10/02/20 08:59 09/05/20 08:33 Furosemide (Lasix) 80 mg EVERY 12 HOURS IV 09/02/20 21:00 09/30/20 20:59 09/05/20 08:34 Gabapentin (Neurontin) 300 mg DAILY ORAL 08/31/20 09:00 09/30/20 08:59 09/05/20 08:33 Heparin Sodium (Porcine) (Heparin 5000 units/ml) 5,000 units EVERY 12 HOURS SUBQ 08/31/20 09:00 10/15/20 08:59 09/05/20 08:35 Heparin Sodium/ Sodium Chloride (Heparin 1000 units/500ml Premix) 1,000 unit ONCE PRN IV radiology procedure 09/05/20 10:00 09/07/20 09:59 Hydralazine HCl (Apresoline) 75 mg Q8HR ORAL 09/02/20 14:00 11/29/20 00:00 09/04/20 13:29 Indomethacin (Indocin) 25 mg THREE TIMES A DAY ORAL 09/04/20 13:00 10/04/20 12:59 09/05/20 08:33 Insulin Aspart (NovoLOG) BEFORE MEALS AND HS SUBQ 08/31/20 06:30 11/29/20 06:29 09/04/20 21:17 Levofloxacin 100 ml @ 100 mls/hr Q48H IVPB 09/04/20 18:00 09/11/20 17:59 09/04/20 16:20 Levothyroxine Sodium (Synthroid) 100 mcg DAILY@0630 ORAL 09/02/20 06:30 10/02/20 06:29 09/05/20 05:55 Lidocaine/ Epinephrine (Lidocaine 1%/ Epi 0.01mg 20ml) 20 ml ONCE PRN INJ radiology procedure 09/05/20 13:00 09/07/20 12:59 Metoclopramide HCl (Reglan) 5 mg THREE TIMES A DAY ORAL 08/31/20 13:00 09/30/20 12:59 09/05/20 08:32 Morphine Sulfate (Morphine Sulfate) 2 mg Q4H PRN IVP For Pain 09/01/20 02:50 09/08/20 02:59 09/05/20 05:09 Ondansetron HCl (Zofran) 4 mg Q6H PRN IVP Nausea & Vomiting 08/30/20 23:45 09/29/20 23:44 Pantoprazole (Protonix) 40 mg EVERY 12 HOURS ORAL 08/31/20 21:00 09/30/20 20:59 09/05/20 08:33 Polyethylene Glycol (Miralax) 17 gm DAILYPRN PRN ORAL Constipation 08/30/20 23:45 09/29/20 23:44 Promethazine HCl/ Codeine (Phenergan with Codeine) 5 ml Q6H PRN ORAL cough 08/30/20 23:45 09/29/20 23:44 Marielena Etienne M.D. Sep 05, 2020 11:33
--- NOTE | 2020-09-05 12:52 | Cardiac Electrophysiology PN ---
Assessment/Plan Assessment/Plan 1. Volume overload, likely due to renal failure as creatinine is 3.5. The echocardiogram showed ejection fraction of 50%. Off Amlodipine. On IV Lasix. Discussed with Dr. Severino. HD pending after PermCath placement today 2. Left bundle-branch block. 3. Diastolic dysfunction. Ejection fraction of 50%. 4. Hyperkalemia. Got Kayexalate by Dr. Severino. 5. Diabetic nephropathy. 6. Renal failure. BUN/Cr 81/3.8 Dr Severino ordered placement of permacath and dialysis and ultrafiltration. 7. Hypothyroidism. 8. Iron-deficiency anemia. 9. Right pleural effusion. 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 HD pending after PermCath placement today. In SR Objective Last 24 Hour Vital Signs Date Time Temp Pulse Resp B/P (MAP) Pulse Ox O2 Delivery O2 Flow Rate FiO2 09/05/20 09:00 Nasal Cannula 2.0 Nasal Cannula 2.0 09/05/20 08:00 77 09/05/20 08:00 97.5 78 20 131/62 (85) 95 09/05/20 06:30 96 Nasal Cannula 2.0 28 09/05/20 06:30 78 18 97 Nasal Cannula 2.0 28 09/05/20 05:55 110/63 09/05/20 05:39 96.3 09/05/20 04:00 75 09/05/20 04:00 96.5 73 22 110/63 (79) 96 09/05/20 00:00 96.3 77 20 124/69 (87) 97 09/05/20 00:00 77 09/04/20 22:00 117/82 09/04/20 21:00 Nasal Cannula 2.0 Nasal Cannula 2.0 09/04/20 20:00 96.1 76 22 117/82 (94) 99 09/04/20 20:00 74 09/04/20 19:40 77 16 97 Nasal Cannula 2.0 28 09/04/20 19:40 97 Nasal Cannula 2.0 28 09/04/20 16:00 80 09/04/20 16:00 98.9 69 20 144/81 (102) 96 09/04/20 13:29 149/71 Intake and Output 09/04/20 09/05/20 19:00 07:00 Intake Total 200 ml 200 ml Output Total 300 ml 500 ml Balance -100 ml -300 ml Intake Oral 200 ml 200 ml Output Urine Total 300 ml 500 ml # Bowel Movements 2 Laboratory Tests Test 09/04/20 16:23 09/04/20 21:10 09/05/20 05:30 09/05/20 05:53 POC Whole Blood Glucose 130 MG/DL (74-106) H 165 MG/DL (74-106) H 109 MG/DL (74-106) H White Blood Count 8.6 K/UL (4.8-10.8) Red Blood Count 2.90 M/UL (4.20-5.40) L Hemoglobin 8.4 G/DL (12.0-16.0) L Hematocrit 28.1 % (37.0-47.0) L Mean Corpuscular Volume 97 FL (80-99) Mean Corpuscular Hemoglobin 29.0 PG (27.0-31.0) Mean Corpuscular Hemoglobin Concent 29.9 G/DL (32.0-36.0) L Red Cell Distribution Width 16.8 % (11.6-14.8) H Platelet Count 133 K/UL (150-450) L Mean Platelet Volume 7.5 FL (6.5-10.1) Neutrophils (%) (Auto) 81.3 % (45.0-75.0) H Lymphocytes (%) (Auto) 7.1 % (20.0-45.0) L Monocytes (%) (Auto) 8.6 % (1.0-10.0) Eosinophils (%) (Auto) 1.8 % (0.0-3.0) Basophils (%) (Auto) 1.2 % (0.0-2.0) Erythrocyte Sedimentation Rate 48 MM/HR (0-30) H Sodium Level 140 MMOL/L (136-145) Potassium Level 3.6 MMOL/L (3.5-5.1) Chloride Level 106 MMOL/L (98-107) Carbon Dioxide Level 23 MMOL/L (21-32) Anion Gap 12 mmol/L (5-15) Blood Urea Nitrogen 101 mg/dL (7-18) H Creatinine 4.5 MG/DL (0.55-1.30) H Estimat Glomerular Filtration Rate 9.7 mL/min (>60) Glucose Level 100 MG/DL (74-106) Calcium Level 7.5 MG/DL (8.5-10.1) L Phosphorus Level 5.9 MG/DL (2.5-4.9) H Magnesium Level 2.3 MG/DL (1.8-2.4) Total Bilirubin 0.7 MG/DL (0.2-1.0) Aspartate Amino Transf (AST/SGOT) 20 U/L (15-37) Alanine Aminotransferase (ALT/SGPT) 13 U/L (12-78) Alkaline Phosphatase 143 U/L (46-116) H C-Reactive Protein, Quantitative 9.1 mg/dL (0.00-0.90) H Total Protein 6.8 G/DL (6.4-8.2) Albumin 2.3 G/DL (3.4-5.0) L Globulin 4.5 g/dL Albumin/Globulin Ratio 0.5 (1.0-2.7) L Hepatitis B Surface Antigen Pending Hepatitis B Surface Antibody, Quant Pending Hepatitis C Antibody Pending Test 09/05/20 11:36 POC Whole Blood Glucose 108 MG/DL (74-106) H Microbiology Date/Time Source Procedure Growth Status 09/03/20 14:03 Ascities Fluid Gram Stain - Final Resulted 09/03/20 14:03 Ascities Fluid Body Fluid Culture - Preliminary NO GROWTH Resulted 09/03/20 09:20 Blood Blood Culture - Preliminary NO GROWTH AFTER 24 HOURS Resulted 09/03/20 09:10 Blood Blood Culture - Preliminary NO GROWTH AFTER 24 HOURS Resulted 09/02/20 16:40 Blood Blood Culture - Preliminary NO GROWTH AFTER 48 HOURS Resulted 09/02/20 16:30 Blood Blood Culture - Preliminary NO GROWTH AFTER 48 HOURS Resulted Objective HEAD AND NECK: No JVD. LUNGS: Coarse rhonchi, bibasilar rales. CARDIOVASCULAR: Regular S1 and S2 with no gallop. ABDOMEN: Soft. EXTREMITIES: Bilateral 2+ pitting edema and bandage on both legs Sina Paulson MD Sep 05, 2020 12:52
[2020-09-05] MEDS ORDERED: Lidocaine 1%/ 10mg/ml/EPI 0.01mg/ml 20ml INJ PRN (13:00)
--- NOTE | 2020-09-05 13:44 | Pulmonology Progress Note ---
Subjective ROS Limited/Unobtainable: No Constitutional: Reports: no symptoms HEENT: Repors: no symptoms Respiratory: Reports: no symptoms Allergies: Coded Allergies: No Known Allergies (Unverified , 10/10/19) All Systems: reviewed and negative except above Objective Last 24 Hour Vital Signs Date Time Temp Pulse Resp B/P (MAP) Pulse Ox O2 Delivery O2 Flow Rate FiO2 09/05/20 12:00 97.5 78 20 106/57 (73) 94 09/05/20 12:00 78 09/05/20 09:00 Nasal Cannula 2.0 Nasal Cannula 2.0 09/05/20 08:00 77 09/05/20 08:00 97.5 78 20 131/62 (85) 95 09/05/20 06:30 96 Nasal Cannula 2.0 28 09/05/20 06:30 78 18 97 Nasal Cannula 2.0 28 09/05/20 05:55 110/63 09/05/20 05:39 96.3 09/05/20 04:00 75 09/05/20 04:00 96.5 73 22 110/63 (79) 96 09/05/20 00:00 96.3 77 20 124/69 (87) 97 09/05/20 00:00 77 09/04/20 22:00 117/82 09/04/20 21:00 Nasal Cannula 2.0 Nasal Cannula 2.0 09/04/20 20:00 96.1 76 22 117/82 (94) 99 09/04/20 20:00 74 09/04/20 19:40 77 16 97 Nasal Cannula 2.0 28 09/04/20 19:40 97 Nasal Cannula 2.0 28 09/04/20 16:00 80 09/04/20 16:00 98.9 69 20 144/81 (102) 96 Intake and Output 09/04/20 09/05/20 19:00 07:00 Intake Total 200 ml 200 ml Output Total 300 ml 500 ml Balance -100 ml -300 ml Intake Oral 200 ml 200 ml Output Urine Total 300 ml 500 ml # Bowel Movements 2 General Appearance: WD/WN HEENT: normocephalic, atraumatic Respiratory: chest wall non-tender, lungs clear Breasts: no masses Cardiovascular: normal peripheral pulses Abdomen: normal bowel sounds, soft, non tender Genitourinary: normal external genitalia Extremities: no cyanosis, no clubbing, other - right knee swelling and warmth 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 Microbiology Date/Time Source Procedure Growth Status 09/03/20 14:03 Ascities Fluid Gram Stain - Final Resulted 09/03/20 14:03 Ascities Fluid Body Fluid Culture - Preliminary NO GROWTH Resulted 09/03/20 09:20 Blood Blood Culture - Preliminary NO GROWTH AFTER 24 HOURS Resulted 09/03/20 09:10 Blood Blood Culture - Preliminary NO GROWTH AFTER 24 HOURS Resulted 09/02/20 16:40 Blood Blood Culture - Preliminary NO GROWTH AFTER 48 HOURS Resulted 09/02/20 16:30 Blood Blood Culture - Preliminary NO GROWTH AFTER 48 HOURS Resulted Laboratory Tests 09/04/20 16:23: POC Whole Blood Glucose 130H 09/04/20 21:10: POC Whole Blood Glucose 165H 09/05/20 05:30: White Blood Count 8.6, Red Blood Count 2.90L, Hemoglobin 8.4L, Hematocrit 28.1L, Mean Corpuscular Volume 97, Mean Corpuscular Hemoglobin 29.0, Mean Corpuscular Hemoglobin Concent 29.9L, Red Cell Distribution Width 16.8H, Platelet Count 133L , Mean Platelet Volume 7.5, Neutrophils (%) (Auto) 81.3H, Lymphocytes (%) (Auto) 7.1L, Monocytes (%) (Auto) 8.6, Eosinophils (%) (Auto) 1.8, Basophils (%) (Auto) 1.2, Erythrocyte Sedimentation Rate 48H, Sodium Level 140, Potassium Level 3.6, Chloride Level 106, Carbon Dioxide Level 23, Anion Gap 12, Blood Urea Nitrogen 101H, Creatinine 4.5H, Estimat Glomerular Filtration Rate 9.7, Glucose Level 100, Calcium Level 7.5L, Phosphorus Level 5.9H, Magnesium Level 2.3, Total Bilirubin 0.7, Aspartate Amino Transf (AST/SGOT) 20, Alanine Aminotransferase (ALT/SGPT) 13, Alkaline Phosphatase 143H, C-Reactive Protein, Quantitative 9.1H, Total Protein 6.8, Albumin 2.3L, Globulin 4.5, Albumin/Globulin Ratio 0.5L, Hepatitis B Surface Antigen [Pending], Hepatitis B Surface Antibody, Quant [ Pending], Hepatitis C Antibody [Pending] 09/05/20 05:53: POC Whole Blood Glucose 109H 09/05/20 11:36: POC Whole Blood Glucose 108H Current Medications Medications (Trade) Dose Ordered Sig/Braeden Route PRN Reason Start Time Stop Time Status Last Admin Dose Admin Acetaminophen (Tylenol) 650 mg Q4H PRN ORAL FEVER 08/30/20 23:45 09/29/20 23:44 Albuterol/ Ipratropium (Albuterol/ Ipratropium) 3 ml Q4H PRN HHN Shortness of Breath 09/03/20 13:00 09/08/20 12:59 09/04/20 05:15 Allopurinol (allopurinoL) 300 mg DAILY ORAL 08/31/20 09:00 09/30/20 08:59 09/05/20 08:33 Ceftaroline Fosamil 200 mg/ Sodium Chloride 55 ml @ 55 mls/hr Q12HR IV 09/05/20 21:00 09/10/20 20:59 Dextrose (Dextrose 50%) 25 ml Q30M PRN IV Hypoglycemia 08/30/20 23:45 2 23:44 Dextrose (Dextrose 50%) 50 ml Q30M PRN IV Hypoglycemia 08/30/20 23:45 11/28/20 23:44 Folic Acid (Folate) 3 mg DAILY ORAL 09/02/20 09:00 10/02/20 08:59 09/05/20 08:33 Furosemide (Lasix) 80 mg EVERY 12 HOURS IV 09/02/20 21:00 09/30/20 20:59 09/05/20 08:34 Gabapentin (Neurontin) 300 mg DAILY ORAL 08/31/20 09:00 09/30/20 08:59 09/05/20 08:33 Heparin Sodium (Porcine) (Heparin 5000 units/ml) 5,000 units EVERY 12 HOURS SUBQ 08/31/20 09:00 10/15/20 08:59 09/05/20 08:35 Heparin Sodium/ Sodium Chloride (Heparin 1000 units/500ml Premix) 1,000 unit ONCE PRN IV radiology procedure 09/05/20 10:00 09/07/20 09:59 Hydralazine HCl (Apresoline) 75 mg Q8HR ORAL 09/02/20 14:00 11/29/20 00:00 09/04/20 13:29 Indomethacin (Indocin) 25 mg THREE TIMES A DAY ORAL 09/04/20 13:00 10/04/20 12:59 09/05/20 08:33 Insulin Aspart (NovoLOG) BEFORE MEALS AND HS SUBQ 08/31/20 06:30 11/29/20 06:29 09/04/20 21:17 Levofloxacin 100 ml @ 100 mls/hr Q48H IVPB 09/04/20 18:00 09/11/20 17:59 09/04/20 16:20 Levothyroxine Sodium (Synthroid) 100 mcg DAILY@0630 ORAL 09/02/20 06:30 10/02/20 06:29 09/05/20 05:55 Lidocaine/ Epinephrine (Lidocaine 1%/ Epi 0.01mg 20ml) 20 ml ONCE PRN INJ radiology procedure 09/05/20 13:00 09/07/20 12:59 Metoclopramide HCl (Reglan) 5 mg THREE TIMES A DAY ORAL 08/31/20 13:00 09/30/20 12:59 09/05/20 08:32 Morphine Sulfate (Morphine Sulfate) 2 mg Q4H PRN IVP For Pain 09/01/20 02:50 09/08/20 02:59 09/05/20 05:09 Ondansetron HCl (Zofran) 4 mg Q6H PRN IVP Nausea & Vomiting 08/30/20 23:45 09/29/20 23:44 Pantoprazole (Protonix) 40 mg EVERY 12 HOURS ORAL 08/31/20 21:00 09/30/20 20:59 09/05/20 08:33 Polyethylene Glycol (Miralax) 17 gm DAILYPRN PRN ORAL Constipation 08/30/20 23:45 09/29/20 23:44 Promethazine HCl/ Codeine (Phenergan with Codeine) 5 ml Q6H PRN ORAL cough 08/30/20 23:45 09/29/20 23:44 Assessment/Plan Problems: (1) Acute on chronic diastolic (congestive) heart failure (2) Gout (3) Renal failure (ARF), acute on chronic (4) Diabetes mellitus (5) Left bundle branch block (LBBB) (6) Cardiac left ventricular ejection fraction greater than 40 percent (7) Grade I diastolic dysfunction (8) History of hypertension Assessment/Plan less pain in right knee, on Indomethacin pt c/o right knee pain, might need arthrocentesis. Dr. Royal called will start on Indometacin while waiting for rheuma consult O2 titrate to keep sat > 92%, currently down to O2 via NC thoracentesis done, 600 cc removed from right side. CXR today shows remarkable decrease in amount of right sided effusion empiric abx DVT prophylaxis Tiana Cool MD Sep 05, 2020 13:44
--- NOTE | 2020-09-05 14:06 | Surgery Progress Note ---
Surgery Progress Note Subjective Additional Comments no acute events thora path noted no malignant cells no n/v labs improved comfortable Objective Last 24 Hour Vital Signs Date Time Temp Pulse Resp B/P (MAP) Pulse Ox O2 Delivery O2 Flow Rate FiO2 09/05/20 12:00 97.5 78 20 106/57 (73) 94 09/05/20 12:00 78 09/05/20 09:00 Nasal Cannula 2.0 Nasal Cannula 2.0 09/05/20 08:00 77 09/05/20 08:00 97.5 78 20 131/62 (85) 95 09/05/20 06:30 96 Nasal Cannula 2.0 28 09/05/20 06:30 78 18 97 Nasal Cannula 2.0 28 09/05/20 05:55 110/63 09/05/20 05:39 96.3 09/05/20 04:00 75 09/05/20 04:00 96.5 73 22 110/63 (79) 96 09/05/20 00:00 96.3 77 20 124/69 (87) 97 09/05/20 00:00 77 09/04/20 22:00 117/82 09/04/20 21:00 Nasal Cannula 2.0 Nasal Cannula 2.0 09/04/20 20:00 96.1 76 22 117/82 (94) 99 09/04/20 20:00 74 09/04/20 19:40 77 16 97 Nasal Cannula 2.0 28 09/04/20 19:40 97 Nasal Cannula 2.0 28 09/04/20 16:00 80 09/04/20 16:00 98.9 69 20 144/81 (102) 96 I&O Intake and Output 09/04/20 09/05/20 19:00 07:00 Intake Total 200 ml 200 ml Output Total 300 ml 500 ml Balance -100 ml -300 ml Intake Oral 200 ml 200 ml Output Urine Total 300 ml 500 ml # Bowel Movements 2 Dressing: saturated Cardiovascular: RSR Respiratory: decreased breath sounds Abdomen: non-tender, present bowel sounds Extremities: no tenderness, no cyanosis Laboratory Tests Test 09/04/20 16:23 09/04/20 21:10 09/05/20 05:30 09/05/20 05:53 POC Whole Blood Glucose 130 MG/DL (74-106) H 165 MG/DL (74-106) H 109 MG/DL (74-106) H White Blood Count 8.6 K/UL (4.8-10.8) Red Blood Count 2.90 M/UL (4.20-5.40) L Hemoglobin 8.4 G/DL (12.0-16.0) L Hematocrit 28.1 % (37.0-47.0) L Mean Corpuscular Volume 97 FL (80-99) Mean Corpuscular Hemoglobin 29.0 PG (27.0-31.0) Mean Corpuscular Hemoglobin Concent 29.9 G/DL (32.0-36.0) L Red Cell Distribution Width 16.8 % (11.6-14.8) H Platelet Count 133 K/UL (150-450) L Mean Platelet Volume 7.5 FL (6.5-10.1) Neutrophils (%) (Auto) 81.3 % (45.0-75.0) H Lymphocytes (%) (Auto) 7.1 % (20.0-45.0) L Monocytes (%) (Auto) 8.6 % (1.0-10.0) Eosinophils (%) (Auto) 1.8 % (0.0-3.0) Basophils (%) (Auto) 1.2 % (0.0-2.0) Erythrocyte Sedimentation Rate 48 MM/HR (0-30) H Sodium Level 140 MMOL/L (136-145) Potassium Level 3.6 MMOL/L (3.5-5.1) Chloride Level 106 MMOL/L (98-107) Carbon Dioxide Level 23 MMOL/L (21-32) Anion Gap 12 mmol/L (5-15) Blood Urea Nitrogen 101 mg/dL (7-18) H Creatinine 4.5 MG/DL (0.55-1.30) H Estimat Glomerular Filtration Rate 9.7 mL/min (>60) Glucose Level 100 MG/DL (74-106) Calcium Level 7.5 MG/DL (8.5-10.1) L Phosphorus Level 5.9 MG/DL (2.5-4.9) H Magnesium Level 2.3 MG/DL (1.8-2.4) Total Bilirubin 0.7 MG/DL (0.2-1.0) Aspartate Amino Transf (AST/SGOT) 20 U/L (15-37) Alanine Aminotransferase (ALT/SGPT) 13 U/L (12-78) Alkaline Phosphatase 143 U/L (46-116) H C-Reactive Protein, Quantitative 8.7 mg/dL (0.00-0.90) H Total Protein 6.8 G/DL (6.4-8.2) Albumin 2.3 G/DL (3.4-5.0) L Globulin 4.5 g/dL Albumin/Globulin Ratio 0.5 (1.0-2.7) L Hepatitis B Surface Antigen Pending Hepatitis B Surface Antibody, Quant Pending Hepatitis C Antibody Pending Test 09/05/20 11:36 POC Whole Blood Glucose 108 MG/DL (74-106) H Plan Problems: (1) Acute on chronic diastolic (congestive) heart failure (2) Anemia (3) Acute respiratory failure Assessment & Plan: Large right pleural effusion persists, unchanged. Bilateral interstitial and airspace edema, cardiomegaly persists, probably unchanged allowing for differences in technique and inspiration (4) ACS (acute coronary syndrome) (5) History of hypertension (6) Moderate pulmonary arterial systolic hypertension (7) Left bundle branch block (LBBB) (8) Diabetes mellitus (9) Diabetic nephropathy (10) Renal failure (ARF), acute on chronic (11) Hyperkalemia (12) Bacteremia (13) CAD (coronary artery disease) (14) Hypothyroidism (15) Cardiac left ventricular ejection fraction greater than 40 percent (16) Grade I diastolic dysfunction (17) UTI (urinary tract infection) (18) Ulcers of both lower legs (19) Open wounds involving multiple regions of lower extremity Assessment & Plan: Patient identified admission having bilateral lower extremity edema open wounds as well as necrotic ulcerations. Patient states she has had this for some time now and acutely worsening as well. Bilateral lower leg wounds do to blisters from edema. Right medial lower leg wound 2.1x4.2x0.2 dark brown scab . Right anterior lower leg wound 5.6x5.3x0.2 pink wound bed. Right distal anterior lower leg 4.0x6.0x0.2 pink wound bed . Large amount serous drainage right leg wounds , Xeroform ,gauze,abd pad and kerlix applied change every shift. Left lower leg wound 3.7x5.0x0.3 100% green slough large amount serous drainage noted with small blisters ifeoma wound, Thera Honey, gauze,abd pad and kerlix applied, change every shift. Local wound care plan initiate Nutritional optimization Turn every 2 hours Elevate extremities Thank you will follow recommendations Right deep veins: Unremarkable. No DVT in the right common femoral, femoral, proximal deep femoral or popliteal veins. The veins demonstrate normal color flow, are normally compressible, with normal phasic flow and/or augmentation response. Right superficial veins: Unremarkable. No thrombus in the visualized right great saphenous vein. Left deep veins: Unremarkable. No DVT in the left common femoral, femoral, proximal deep femoral or popliteal veins. The veins demonstrate normal color flow, are normally compressible, with normal phasic flow and/or augmentation response. Left superficial veins: Unremarkable. No thrombus in the visualized left great saphenous vein. Soft tissues: No acute findings. No popliteal cyst. IMPRESSION: Normal bilateral lower extremity duplex venous ultrasound. DAILY ESTIMATED NEEDS: Needs based on ARF, now HD 65.7kg abw 25-30 kcals/kg 2773-8384 total kcals 1.25-1.8 g protein/kg 82-118 g total protein Fluid per MD, HD pending NUTRITION DIAGNOSIS: Increased pro needs r/t renal dysfunction as evidenced by pt w/ ARF, w/ now pending HD, K on adm (5.8), elev BUN (81), elev Creat (3.8), elev phos and mg. CURRENT DIET:Renal/ CCHO MED PO DIET RECOMMENDATIONS: Renal / CCHO LOW diet + high pro snacks in b/w meals ADDITIONAL RECOMMENDATIONS: 1) Maintain calibrated bed scale wts 2) High pro snacks in b/w meals 3) Rec WC eval-> add nephrovite 1 tab daily Vit C per Omar Jolley Sep 05, 2020 14:06
[2020-09-05] MEDS ORDERED: ceFAZolin sod 1 GM in D5W 55 ML IVPB ONE (14:45)
--- NOTE | 2020-09-05 15:49 | Pre-Procedure Note/Attestation ---
Pre-Procedure Note/Attestation Complete Prior to Procedure Planned Procedure: not applicable Procedure Narrative: permacath Indications for Procedure Pre-Operative Diagnosis: renal failure Attestation I attest that I discussed the nature of the procedure; its benefits; risks and complications; and alternatives (and the risks and benefits of such alternatives), prior to the procedure, with the patient (or the patient's legal b2b outside sales representative). I attest that, if there was a reasonable possibility of needing a blood t ransfusion, the patient (or the patient's legal b2b outside sales representative) was given the [facility] standardized written summary, pursuant to the Hi Say Blood Safety Act ([place] Health and Safety Code # 1645, as amended). I attest that I re-evaluated the patient just prior to the surgery and that there has been no change in the patient's H&P, except as documented below: Bhaskar Vizcaino MD Sep 05, 2020 15:49
--- NOTE | 2020-09-05 15:49 | Brief Operative Note ---
Immediate Post Operative Note Operative Note Pre-op Diagnosis: renal failure Procedure: R IJ permacath Post-op Diagnosis: same as pre-op Surgeon: Katharina VIZCAINO Anesthesia: local Specimen: none Complications: none Fluids: none Implant(s) used?: No Bhaskar Vizcaino MD Sep 05, 2020 15:49
[2020-09-05] MEDS ORDERED: Heparin Sod 1000 units/ml 10ml INJ SCH (16:15)
--- NOTE | 2020-09-05 17:51 | Diagnostic Imaging Report ---
Indications: Needs long-term dialysis access Technique: Patient given IV Ancef. Total sterile technique, including sterile probe cover and sterile gel, sterile gloves, hand hygiene, hat, mask,, sterile gown, large sterile drape, and preparation with 2% chlorhexidine utilized. Local anesthesia with 1% lidocaine. Ultrasound demonstrated patent compressible right internal jugular vein. Under real-time ultrasound guidance and with real-time visualization of the needle entering the vein lumen, puncture right internal jugular vein using 21-gauge micropuncture needle, passage 0.018 guidewire, exchange for 4 Kyrgyz micropuncture introducer. The guidewire was used to measure the appropriate catheter length, and was removed. The sheath was left in place. The subcutaneous tract was then anesthetized with 1% lidocaine. A chest dermatotomy was made . The tunneling device was used to pull a 14.5 Kyrgyz 23 cm BioFlo catheter through the subcutaneous tunnel to the neck dermatotomy. A guidewire was passed through the neck introducer into the inferior vena cava, and serial dilators were passed over it, followed by the introduction of a 14.5 [place] AirGuard peel-away sheath. The catheter was then introduced into the sheath, the peel-away sheath was removed. Digital radiograph documents satisfactory catheter tip position in the high right atrium, no kinking at the insertion site. Both catheter ports aspirated and flushed. Catheter was fixed to the skin. Patient tolerated procedure well without immediate complication. Total fluoroscopy time 81.8 minutes. Total dose area product [id number] Total number of images-one Comparison: None. Findings: Completion radiograph documents satisfactory position and course of the catheter, catheter tip at the high right atrium. Impression: Successful placement of right transjugular tunneled dialysis catheter, as described above
[2020-09-06] VITALS: BP 102/50
[2020-09-06] MEDS: Ceftaroline 200 MG in NS 55 ML IV SCH ×3 (00:12→19:30)
[2020-09-06] MEDS: Heparin 5000 units/ml inj SUBQ SCH ×3 (00:16→21:00)
[2020-09-06 04:00] VITALS: BP 113/62
[2020-09-06] MEDS: HydrALAZINE 25mg tab ORAL SCH (06:00)
[2020-09-06] MEDS: NovoLOG Insulin Flexpen SUBQ SCH ×4 (06:01→21:00)
[2020-09-06 06:33] LABS: HEMATOCRIT 26.8 % (37.0-47.0); MEAN CORPUSCULAR VOLUME 95 FL (80-99); PLATELET COUNT 96 K/UL (150-450); RED BLOOD COUNT 2.81 M/UL (4.20-5.40); RED CELL DISTRIBUTION WIDTH 16.9 % (11.6-14.8); WHITE BLOOD COUNT 7.6 K/UL (4.8-10.8)
[2020-09-06 07:10] LABS: ALBUMIN 2.8 G/DL (3.4-5.0); ALBUMIN/GLOBULIN RATIO 0.7 (1.0-2.7); BILIRUBIN,TOTAL 0.8 MG/DL (0.2-1.0); CALCIUM 8.2 MG/DL (8.5-10.1); CREATININE 3.8 MG/DL (0.55-1.30); POTASSIUM 3.6 MMOL/L (3.5-5.1)
[2020-09-06 08:00] VITALS: BP 101/59
--- NOTE | 2020-09-06 09:33 | Infectious Diseases Prog Note ---
Assessment/Plan Assessment: Severe Sepsis Pneumonia Acute hypoxic resp failure- on 2l NC R pleural effusion, transudate -09/03 SP Thoracentesis: Successful ultrasound-guided thoracentesis, yielding 680 milliliters of clear yellow fluid; cx NTD -fluid prot 1.4, glucose 198 -09/01 Chest US: Positive for right pleural effusion Incidental finding of ascites, also previously reporte -08/30 CXR: There is again patchy ill-defined airspace opacities at the right greater than left base with some consolidated appearance again seen on the right. There is now patchy ill-defined opacity at the right upper lung. A small right pleural effusion is suggested. The patient is rotated to the right. Status post median sternotomy again noted. -08/30 & rapid covid PCR neg x2 -08/30 Bcx NTD Afebrile Leukocytosis, SP -09/02 Bcx NTD -08/31 u/a no pyuria R arm and R leg cellulitis; improving Recent hx of COVID19- pt clarified initial diagnosis was 2 months ago and not 08/25 as per documentation on EMR. VENANCIO on CKD -REnal US: Ascites. Bilateral pleural effusions. Complex right renal cysts of uncertain etiology. This complex cyst is unchanged from the study of 01/12/2020. Mildly atrophic right kidney.Magnetic resonance imaging of the abdomen with gadolinium administration is advised for further evaluation of complex right renal cyst. HTN dCHF pHTN ascites chronic LE edema DM2 c/w neuropathy iron def anemia Plan: -Continue empiric Teflaro and LEvaquin #7 (abx d #06/02) -08/31 SP Ceftriaxone #2, Azithromcyin #2 -f/u cx -Monitor CBC/CMP, temperatures -aspiration precautions -REnal f.u Thank you for consulting [facility]. Will continue to follow along with you. Subjective Allergies: Coded Allergies: No Known Allergies (Unverified , 10/10/19) afebrile Objective Last 24 Hour Vital Signs Date Time Temp Pulse Resp B/P (MAP) Pulse Ox O2 Delivery O2 Flow Rate FiO2 09/06/20 08:15 97 Nasal Cannula 2.0 28 09/06/20 08:14 77 18 97 Nasal Cannula 2.0 28 09/06/20 06:00 110/58 09/06/20 04:00 67 09/06/20 04:00 98.0 69 20 113/62 (79) 97 09/06/20 00:00 98.5 78 20 102/50 (67) 95 09/06/20 00:00 77 09/05/20 22:00 102/60 09/05/20 21:00 Nasal Cannula 2.0 Nasal Cannula 2.0 09/05/20 20:42 95 Nasal Cannula 2.0 28 09/05/20 20:42 74 18 95 Nasal Cannula 2.0 28 09/05/20 20:00 72 09/05/20 20:00 97.4 76 20 109/65 (80) 96 09/05/20 16:00 75 09/05/20 16:00 97.5 74 20 120/74 (89) 95 09/05/20 14:55 155/70 09/05/20 14:05 77 17 155/70 (98) 99 09/05/20 14:00 75 13 144/66 (92) 100 09/05/20 13:55 97.7 75 14 143/68 (93) 100 09/05/20 13:37 100 16 2.0 09/05/20 12:00 97.5 78 20 106/57 (73) 94 09/05/20 12:00 78 Height (Feet): 5 Height (Inches): 10.00 Weight (Pounds): 218 HEENT: anicteric Respiratory/Chest: normal breath sounds Cardiovascular: normal rate Abdomen: soft, non tender Microbiology Date/Time Source Procedure Growth Status 09/03/20 14:03 Ascities Fluid Gram Stain - Final Resulted 09/03/20 14:03 Ascities Fluid Body Fluid Culture - Preliminary Resulted Laboratory Tests Test 09/05/20 11:36 09/05/20 15:59 09/05/20 22:07 09/06/20 05:50 POC Whole Blood Glucose 108 MG/DL (74-106) H 115 MG/DL (74-106) H 114 MG/DL (74-106) H White Blood Count 7.6 K/UL (4.8-10.8) Red Blood Count 2.81 M/UL (4.20-5.40) L Hemoglobin 8.0 G/DL (12.0-16.0) L Hematocrit 26.8 % (37.0-47.0) L Mean Corpuscular Volume 95 FL (80-99) Mean Corpuscular Hemoglobin 28.5 PG (27.0-31.0) Mean Corpuscular Hemoglobin Concent 29.9 G/DL (32.0-36.0) L Red Cell Distribution Width 16.9 % (11.6-14.8) H Platelet Count 96 K/UL (150-450) L Mean Platelet Volume 7.9 FL (6.5-10.1) Neutrophils (%) (Auto) % (45.0-75.0) Lymphocytes (%) (Auto) % (20.0-45.0) Monocytes (%) (Auto) % (1.0-10.0) Eosinophils (%) (Auto) % (0.0-3.0) Basophils (%) (Auto) % (0.0-2.0) Neutrophils % (Manual) Pending Lymphocytes % (Manual) Pending Platelet Estimate Pending Platelet Morphology Pending Sodium Level 136 MMOL/L (136-145) Potassium Level 3.6 MMOL/L (3.5-5.1) Chloride Level 100 MMOL/L (98-107) Carbon Dioxide Level 26 MMOL/L (21-32) Anion Gap 10 mmol/L (5-15) Blood Urea Nitrogen 73 mg/dL (7-18) H Creatinine 3.8 MG/DL (0.55-1.30) H Estimat Glomerular Filtration Rate 11.8 mL/min (>60) Glucose Level 99 MG/DL (74-106) Calcium Level 8.2 MG/DL (8.5-10.1) L Phosphorus Level 5.0 MG/DL (2.5-4.9) H Magnesium Level 2.4 MG/DL (1.8-2.4) Total Bilirubin 0.8 MG/DL (0.2-1.0) Aspartate Amino Transf (AST/SGOT) 17 U/L (15-37) Alanine Aminotransferase (ALT/SGPT) 13 U/L (12-78) Alkaline Phosphatase 132 U/L (46-116) H Pro-B-Type Natriuretic Peptide 72522 pg/mL (0-125) H Total Protein 7.0 G/DL (6.4-8.2) Albumin 2.8 G/DL (3.4-5.0) L Globulin 4.2 g/dL Albumin/Globulin Ratio 0.7 (1.0-2.7) L Test 09/06/20 05:58 POC Whole Blood Glucose 102 MG/DL (74-106) Current Medications Medications (Trade) Dose Ordered Sig/Braeden Route PRN Reason Start Time Stop Time Status Last Admin Dose Admin Acetaminophen (Tylenol) 650 mg Q4H PRN ORAL FEVER 08/30/20 23:45 09/29/20 23:44 Albuterol/ Ipratropium (Albuterol/ Ipratropium) 3 ml Q4H PRN HHN Shortness of Breath 09/03/20 13:00 09/08/20 12:59 09/04/20 05:15 Allopurinol (allopurinoL) 300 mg DAILY ORAL 08/31/20 09:00 09/30/20 08:59 09/05/20 08:33 Ceftaroline Fosamil 200 mg/ Sodium Chloride 55 ml @ 55 mls/hr Q12HR IV 09/05/20 21:00 09/10/20 20:59 09/06/20 00:12 Chlorhexidine Gluconate (Josiane-Hex 2%) 1 applic DAILY@2000 TOPIC 09/06/20 20:00 12/05/20 19:59 Dextrose (Dextrose 50%) 25 ml Q30M PRN IV Hypoglycemia 08/30/20 23:45 11/28/20 23:44 Dextrose (Dextrose 50%) 50 ml Q30M PRN IV Hypoglycemia 08/30/20 23:45 11/28/20 23:44 Folic Acid (Folate) 3 mg DAILY ORAL 09/02/20 09:00 10/02/20 08:59 09/05/20 08:33 Furosemide (Lasix) 80 mg EVERY 12 HOURS IV 09/02/20 21:00 09/30/20 20:59 09/06/20 00:12 Gabapentin (Neurontin) 300 mg DAILY ORAL 08/31/20 09:00 09/30/20 08:59 09/05/20 08:33 Heparin Sodium (Porcine) (Heparin 5000 units/ml) 5,000 units EVERY 12 HOURS SUBQ 08/31/20 09:00 10/15/20 08:59 09/06/20 00:16 Heparin Sodium/ Sodium Chloride (Heparin 1000 units/500ml Premix) 1,000 unit ONCE PRN IV radiology procedure 09/05/20 10:00 09/07/20 09:59 Hydralazine HCl (Apresoline) 75 mg Q8HR ORAL 09/02/20 14:00 11/29/20 00:00 09/05/20 14:55 Indomethacin (Indocin) 25 mg THREE TIMES A DAY ORAL 09/04/20 13:00 10/04/20 12:59 09/05/20 17:15 Insulin Aspart (NovoLOG) BEFORE MEALS AND HS SUBQ 08/31/20 06:30 11/29/20 06:29 09/04/20 21:17 Levofloxacin 100 ml @ 100 mls/hr Q48H IVPB 09/04/20 18:00 09/11/20 17:59 09/04/20 16:20 Levothyroxine Sodium (Synthroid) 100 mcg DAILY@0630 ORAL 09/02/20 06:30 10/02/20 06:29 09/06/20 06:01 Lidocaine/ Epinephrine (Lidocaine 1%/ Epi 0.01mg 20ml) 20 ml ONCE PRN INJ radiology procedure 09/05/20 13:00 09/07/20 12:59 Metoclopramide HCl (Reglan) 5 mg THREE TIMES A DAY ORAL 08/31/20 13:00 09/30/20 12:59 09/05/20 17:15 Morphine Sulfate (Morphine Sulfate) 2 mg Q4H PRN IVP For Pain 09/01/20 02:50 09/08/20 02:59 09/05/20 05:09 Ondansetron HCl (Zofran) 4 mg Q6H PRN IVP Nausea & Vomiting 08/30/20 23:45 09/29/20 23:44 Pantoprazole (Protonix) 40 mg EVERY 12 HOURS ORAL 08/31/20 21:00 09/30/20 20:59 09/06/20 00:14 Polyethylene Glycol (Miralax) 17 gm DAILYPRN PRN ORAL Constipation 08/30/20 23:45 09/29/20 23:44 Promethazine HCl/ Codeine (Phenergan with Codeine) 5 ml Q6H PRN ORAL cough 08/30/20 23:45 09/29/20 23:44 Ayush Rodriguez MD Sep 06, 2020 09:33
--- NOTE | 2020-09-06 09:34 | Pulmonology Progress Note ---
Subjective ROS Limited/Unobtainable: No Constitutional: Reports: no symptoms HEENT: Repors: no symptoms Respiratory: Reports: no symptoms Allergies: Coded Allergies: No Known Allergies (Unverified , 10/10/19) All Systems: reviewed and negative except above Objective Last 24 Hour Vital Signs Date Time Temp Pulse Resp B/P (MAP) Pulse Ox O2 Delivery O2 Flow Rate FiO2 09/06/20 08:15 97 Nasal Cannula 2.0 28 09/06/20 08:14 77 18 97 Nasal Cannula 2.0 28 09/06/20 06:00 110/58 09/06/20 04:00 67 09/06/20 04:00 98.0 69 20 113/62 (79) 97 09/06/20 00:00 98.5 78 20 102/50 (67) 95 09/06/20 00:00 77 09/05/20 22:00 102/60 09/05/20 21:00 Nasal Cannula 2.0 Nasal Cannula 2.0 09/05/20 20:42 95 Nasal Cannula 2.0 28 09/05/20 20:42 74 18 95 Nasal Cannula 2.0 28 09/05/20 20:00 72 09/05/20 20:00 97.4 76 20 109/65 (80) 96 09/05/20 16:00 75 09/05/20 16:00 97.5 74 20 120/74 (89) 95 09/05/20 14:55 155/70 09/05/20 14:05 77 17 155/70 (98) 99 09/05/20 14:00 75 13 144/66 (92) 100 09/05/20 13:55 97.7 75 14 143/68 (93) 100 09/05/20 13:37 100 16 2.0 09/05/20 12:00 97.5 78 20 106/57 (73) 94 09/05/20 12:00 78 Intake and Output 09/05/20 09/06/20 19:00 07:00 Intake Total 236 ml 200 ml Output Total 3200 ml Balance 236 ml -3000 ml Intake Oral 236 ml 200 ml Output Urine Total 200 ml Hemodialysis UF 3000 ml # Voids 1 General Appearance: WD/WN HEENT: normocephalic, atraumatic Respiratory: chest wall non-tender, lungs clear Breasts: no masses Cardiovascular: normal peripheral pulses Abdomen: normal bowel sounds, soft, non tender Genitourinary: normal external genitalia Extremities: no cyanosis, no clubbing, other - right knee swelling and warmth Neurologic: per diem physical therapist II-XII grossly normal Microbiology Date/Time Source Procedure Growth Status 09/03/20 14:03 Ascities Fluid Gram Stain - Final Resulted 09/03/20 14:03 Ascities Fluid Body Fluid Culture - Preliminary Resulted Laboratory Tests 09/05/20 11:36: POC Whole Blood Glucose 108H 09/05/20 15:59: POC Whole Blood Glucose 115H 09/05/20 22:07: POC Whole Blood Glucose 114H 09/06/20 05:50: White Blood Count 7.6, Red Blood Count 2.81L, Hemoglobin 8.0L, Hematocrit 26.8L, Mean Corpuscular Volume 95, Mean Corpuscular Hemoglobin 28.5, Mean Corpuscular Hemoglobin Concent 29.9L, Red Cell Distribution Width 16.9H, Platelet Count 96L, Mean Platelet Volume 7.9, Neutrophils (%) (Auto) , Lymphocytes (%) (Auto) , Monocytes (%) (Auto) , Eosinophils (%) (Auto) , Basophils (%) (Auto) , Neutrophils % (Manual) [Pending], Lymphocytes % (Manual) [Pending], Platelet Estimate [Pending], Platelet Morphology [Pending], Sodium Level 136, Potassium Level 3.6, Chloride Level 100, Carbon Dioxide Level 26, Anion Gap 10, Blood Urea Nitrogen 73H, Creatinine 3.8H, Estimat Glomerular Filtration Rate 11.8, Glucose Level 99, Calcium Level 8.2L, Phosphorus Level 5.0H, Magnesium Level 2.4, Total Bilirubin 0.8, Aspartate Amino Transf (AST/SGOT) 17, Alanine Aminotransferase (ALT/SGPT) 13, Alkaline Phosphatase 132H, Pro-B-Type Natriuretic Peptide 74295P, Total Protein 7.0, Albumin 2.8L, Globulin 4.2, Albumin/Globulin Ratio 0.7L 09/06/20 05:58: POC Whole Blood Glucose 102 Current Medications Medications (Trade) Dose Ordered Sig/Braeden Route PRN Reason Start Time Stop Time Status Last Admin Dose Admin Acetaminophen (Tylenol) 650 mg Q4H PRN ORAL FEVER 08/30/20 23:45 09/29/20 23:44 Albuterol/ Ipratropium (Albuterol/ Ipratropium) 3 ml Q4H PRN HHN Shortness of Breath 09/03/20 13:00 09/08/20 12:59 09/04/20 05:15 Allopurinol (allopurinoL) 300 mg DAILY ORAL 08/31/20 09:00 09/30/20 08:59 09/05/20 08:33 Ceftaroline Fosamil 200 mg/ Sodium Chloride 55 ml @ 55 mls/hr Q12HR IV 09/05/20 21:00 09/10/20 20:59 09/06/20 00:12 Chlorhexidine Gluconate (Josiane-Hex 2%) 1 applic DAILY@2000 TOPIC 09/06/20 20:00 12/05/20 19:59 Dextrose (Dextrose 50%) 25 ml Q30M PRN IV Hypoglycemia 08/30/20 23:45 11/28/20 23:44 Dextrose (Dextrose 50%) 50 ml Q30M PRN IV Hypoglycemia 08/30/20 23:45 11/28/20 23:44 Folic Acid (Folate) 3 mg DAILY ORAL 09/02/20 09:00 10/02/20 08:59 09/05/20 08:33 Furosemide (Lasix) 80 mg EVERY 12 HOURS IV 09/02/20 21:00 09/30/20 20:59 09/06/20 00:12 Gabapentin (Neurontin) 300 mg DAILY ORAL 08/31/20 09:00 09/30/20 08:59 09/05/20 08:33 Heparin Sodium (Porcine) (Heparin 5000 units/ml) 5,000 units EVERY 12 HOURS SUBQ 08/31/20 09:00 10/15/20 08:59 09/06/20 00:16 Heparin Sodium/ Sodium Chloride (Heparin 1000 units/500ml Premix) 1,000 unit ONCE PRN IV radiology procedure 09/05/20 10:00 09/07/20 09:59 Hydralazine HCl (Apresoline) 75 mg Q8HR ORAL 09/02/20 14:00 11/29/20 00:00 09/05/20 14:55 Indomethacin (Indocin) 25 mg THREE TIMES A DAY ORAL 09/04/20 13:00 10/04/20 12:59 09/05/20 17:15 Insulin Aspart (NovoLOG) BEFORE MEALS AND HS SUBQ 08/31/20 06:30 11/29/20 06:29 09/04/20 21:17 Levofloxacin 100 ml @ 100 mls/hr Q48H IVPB 09/04/20 18:00 09/11/20 17:59 09/04/20 16:20 Levothyroxine Sodium (Synthroid) 100 mcg DAILY@0630 ORAL 09/02/20 06:30 10/02/20 06:29 09/06/20 06:01 Lidocaine/ Epinephrine (Lidocaine 1%/ Epi 0.01mg 20ml) 20 ml ONCE PRN INJ radiology procedure 09/05/20 13:00 09/07/20 12:59 Metoclopramide HCl (Reglan) 5 mg THREE TIMES A DAY ORAL 08/31/20 13:00 09/30/20 12:59 09/05/20 17:15 Morphine Sulfate (Morphine Sulfate) 2 mg Q4H PRN IVP For Pain 09/01/20 02:50 09/08/20 02:59 09/05/20 05:09 Ondansetron HCl (Zofran) 4 mg Q6H PRN IVP Nausea & Vomiting 08/30/20 23:45 09/29/20 23:44 Pantoprazole (Protonix) 40 mg EVERY 12 HOURS ORAL 08/31/20 21:00 09/30/20 20:59 09/06/20 00:14 Polyethylene Glycol (Miralax) 17 gm DAILYPRN PRN ORAL Constipation 08/30/20 23:45 09/29/20 23:44 Promethazine HCl/ Codeine (Phenergan with Codeine) 5 ml Q6H PRN ORAL cough 08/30/20 23:45 09/29/20 23:44 Assessment/Plan Problems: (1) Acute on chronic diastolic (congestive) heart failure (2) Gout (3) Renal failure (ARF), acute on chronic (4) Diabetes mellitus (5) Left bundle branch block (LBBB) (6) Cardiac left ventricular ejection fraction greater than 40 percent (7) Grade I diastolic dysfunction (8) History of hypertension 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 Dr. Royal called O2 titrate to keep sat > 92%, currently down to O2 via NC thoracentesis done, 600 cc removed from right side. CXR today shows remarkable decrease in amount of right sided effusion empiric abx DVT prophylaxis Tiana Cool MD Sep 06, 2020 09:34
[2020-09-06] MEDS: Indomethacin 25mg cap ORAL SCH ×3 (10:14→17:27)
--- NOTE | 2020-09-06 11:40 | Nephrology Progress Note ---
Assessment/Plan Problem List: (1) Renal failure (ARF), acute on chronic (2) Hyperkalemia (3) Hypothyroidism (4) Acute on chronic diastolic (congestive) heart failure (5) Diabetic nephropathy (6) Pneumonia Assessment: Leukocytosis, abnormal chest x-ray (7) Anemia Assessment 1) Renal failure (ARF), acute on chronic (2) Diabetes mellitus (3) Hypoglycemia (4) Hyperkalemia (5) Diabetic nephropathy (6) H/o Pleural effusion (7) Morbid obesity (8) Low Iron Anemia (9) HypoThyroidism Plan July 07: Patient was dialyzed yesterday. Ultrafiltration was done. Patient remains edematous. Will do another dialysis and aim 3 L fluid removal as tolerates. Discontinue IV Lasix and oral hydralazine. Will adjust blood pressure medication as needed. Discussed with RN, antibiotics intravenously if possible should be changed to oral since there is no IV line available. 1 dose of Venofer 200 mg ordered to be given during dialysis. Subcutaneous Epogen ordered for anemia. September 05: New 24-hour urine suggestive of creatinine clearance of 3. Patient due for insertion of dialysis catheter. Hemodialysis and ultrafiltration after insertion of catheter. September 04: New 24-hour urine test is in process. Discussed with RN. Patient was short of breath overnight. ABG ordered. 1 dose of Zaroxolyn ordered. Patient has fluid overload, and need ultrafiltration. Blood cultures negative. Leukocytosis resolved. Will order placement of permacath and dialysis and ultrafiltration. September 03: The 24-hour urine results appears to be an error in view of total volume compared to intake and output records. Today's labs reviewed. Serum creatinine higher. Talk to the nursing charge of the floor and will order another 24-hour urine collection. Meanwhile continue per ID treatment for UTI and leukocytosis. Dexamethasone on the medication list was questioned. Patient may require dialysis if continues to have worsening renal parameters. September 02: Consent for dialysis catheter is taken. Catheter placement deferred due to leukocytosis. Surveillance blood culture ordered. Urine culture ordered. Blood pressure medication adjusted. 24-hour urine for creatinine clearance and total protein pending. Previously: Chan Cath 24 H CrCl and total protein ordered Off IV fluids, on IV Lasix Adjust BP meds Previous 2D echocardiogram ejection fraction is reported to 50% Previous Kidney ultrasound noted. Current kidney ultrasound results below Anemia work-up As needed Kayexalate for high potassium Keep blood pressure and blood sugar in check Monitor renal parameters Requires HD treatment [facility] KIDNEY IMPRESSION: 1. Ascites. 2. Bilateral pleural effusions. 3. Complex right renal cysts of uncertain etiology. This complex cyst is unchanged from the study of 01/12/2020. 4. Mildly atrophic right kidney. 5. Magnetic resonance imaging of the abdomen with gadolinium administration is advised for further evaluation of complex right renal cyst. Subjective ROS Limited/Unobtainable: No Constitutional: Reports: malaise, weakness Objective Objective Last 24 Hour Vital Signs Date Time Temp Pulse Resp B/P (MAP) Pulse Ox O2 Delivery O2 Flow Rate FiO2 09/06/20 08:15 97 Nasal Cannula 2.0 28 09/06/20 08:14 77 18 97 Nasal Cannula 2.0 28 09/06/20 06:00 110/58 09/06/20 04:00 67 09/06/20 04:00 98.0 69 20 113/62 (79) 97 09/06/20 00:00 98.5 78 20 102/50 (67) 95 09/06/20 00:00 77 09/05/20 22:00 102/60 09/05/20 21:00 Nasal Cannula 2.0 Nasal Cannula 2.0 09/05/20 20:42 95 Nasal Cannula 2.0 28 09/05/20 20:42 74 18 95 Nasal Cannula 2.0 28 09/05/20 20:00 72 09/05/20 20:00 97.4 76 20 109/65 (80) 96 09/05/20 16:00 75 09/05/20 16:00 97.5 74 20 120/74 (89) 95 09/05/20 14:55 155/70 09/05/20 14:05 77 17 155/70 (98) 99 09/05/20 14:00 75 13 144/66 (92) 100 09/05/20 13:55 97.7 75 14 143/68 (93) 100 09/05/20 13:37 100 16 2.0 09/05/20 12:00 97.5 78 20 106/57 (73) 94 09/05/20 12:00 78 Intake and Output 09/05/20 09/06/20 19:00 07:00 Intake Total 236 ml 200 ml Output Total 3200 ml Balance 236 ml -3000 ml Intake Oral 236 ml 200 ml Output Urine Total 200 ml Hemodialysis UF 3000 ml # Voids 1 Current Medications Medications (Trade) Dose Ordered Sig/[place] Route PRN Reason Start Time Stop Time Status Last Admin Dose Admin Acetaminophen (Tylenol) 650 mg Q4H PRN ORAL FEVER 08/30/20 23:45 09/29/20 23:44 Albuterol/ Ipratropium (Albuterol/ Ipratropium) 3 ml Q4H PRN HHN Shortness of Breath 09/03/20 13:00 09/08/20 12:59 09/04/20 05:15 Allopurinol (allopurinoL) 300 mg DAILY ORAL 08/31/20 09:00 09/30/20 08:59 09/06/20 10:14 Ceftaroline Fosamil 200 mg/ Sodium Chloride 55 ml @ 55 mls/hr Q12HR IV 09/05/20 21:00 09/10/20 20:59 09/06/20 10:15 Chlorhexidine Gluconate (Josiane-Hex 2%) 1 applic DAILY@2000 TOPIC 09/06/20 20:00 12/05/20 19:59 Dextrose (Dextrose 50%) 25 ml Q30M PRN IV Hypoglycemia 08/30/20 23:45 2 23:44 Dextrose (Dextrose 50%) 50 ml Q30M PRN IV Hypoglycemia 08/30/20 23:45 11/28/20 23:44 Folic Acid (Folate) 3 mg DAILY ORAL 09/02/20 09:00 10/02/20 08:59 09/06/20 10:14 Gabapentin (Neurontin) 300 mg DAILY ORAL 08/31/20 09:00 09/30/20 08:59 09/06/20 10:14 Heparin Sodium (Porcine) (Heparin 5000 units/ml) 5,000 units EVERY 12 HOURS SUBQ 08/31/20 09:00 10/15/20 08:59 09/06/20 00:16 Heparin Sodium/ Sodium Chloride (Heparin 1000 units/500ml Premix) 1,000 unit ONCE PRN IV radiology procedure 09/05/20 10:00 09/07/20 09:59 Indomethacin (Indocin) 25 mg THREE TIMES A DAY ORAL 09/04/20 13:00 10/04/20 12:59 09/06/20 10:14 Insulin Aspart (NovoLOG) BEFORE MEALS AND HS SUBQ 08/31/20 06:30 11/29/20 06:29 09/04/20 21:17 Levofloxacin 100 ml @ 100 mls/hr Q48H IVPB 09/04/20 18:00 09/11/20 17:59 09/04/20 16:20 Levothyroxine Sodium (Synthroid) 100 mcg DAILY@0630 ORAL 09/02/20 06:30 10/02/20 06:29 09/06/20 06:01 Lidocaine/ Epinephrine (Lidocaine 1%/ Epi 0.01mg 20ml) 20 ml ONCE PRN INJ radiology procedure 09/05/20 13:00 09/07/20 12:59 Metoclopramide HCl (Reglan) 5 mg THREE TIMES A DAY ORAL 08/31/20 13:00 09/30/20 12:59 09/06/20 10:14 Morphine Sulfate (Morphine Sulfate) 2 mg Q4H PRN IVP For Pain 09/01/20 02:50 09/08/20 02:59 09/05/20 05:09 Ondansetron HCl (Zofran) 4 mg Q6H PRN IVP Nausea & Vomiting 08/30/20 23:45 09/29/20 23:44 Pantoprazole (Protonix) 40 mg EVERY 12 HOURS ORAL 08/31/20 21:00 09/30/20 20:59 09/06/20 10:14 Polyethylene Glycol (Miralax) 17 gm DAILYPRN PRN ORAL Constipation 08/30/20 23:45 09/29/20 23:44 Promethazine HCl/ Codeine (Phenergan with Codeine) 5 ml Q6H PRN ORAL cough 08/30/20 23:45 09/29/20 23:44 Laboratory Tests 09/05/20 15:59: POC Whole Blood Glucose 115H 09/05/20 22:07: POC Whole Blood Glucose 114H 09/06/20 05:50: White Blood Count 7.6, Red Blood Count 2.81L, Hemoglobin 8.0L, Hematocrit 26.8L, Mean Corpuscular Volume 95, Mean Corpuscular Hemoglobin 28.5, Mean Corpuscular Hemoglobin Concent 29.9L, Red Cell Distribution Width 16.9H, Platelet Count 96L, Mean Platelet Volume 7.9, Neutrophils (%) (Auto) , Lymphocytes (%) (Auto) , Monocytes (%) (Auto) , Eosinophils (%) (Auto) , Basophils (%) (Auto) , Differential Total Cells Counted 100, Neutrophils % (Manual) 69, Lymphocytes % (Manual) 13L, Monocytes % (Manual) 13H, Eosinophils % (Manual) 2, Basophils % (Manual) 0, Band Neutrophils 3, Platelet Estimate DecreasedL, Platelet Morphology Normal, Hypochromasia 2+, Anisocytosis 1+, Sodium Level 136, Potassium Level 3.6, Chloride Level 100, Carbon Dioxide Level 26, Anion Gap 10, Blood Urea Nitrogen 73H, Creatinine 3.8H, Estimat Glomerular Filtration Rate 11.8, Glucose Level 99, Calcium Level 8.2L, Phosphorus Level 5.0H, Magnesium Level 2.4, Total Bilirubin 0.8, Aspartate Amino Transf (AST/SGOT) 17, Alanine Aminotransferase (ALT/SGPT) 13, Alkaline Phosphatase 132H, Pro-B-Type Natriuretic Peptide 87548B, Total Protein 7.0, Albumin 2.8L, Globulin 4.2, Albumin/Globulin Ratio 0.7L 09/06/20 05:58: POC Whole Blood Glucose 102 Height (Feet): 5 Height (Inches): 10.00 Weight (Pounds): 218 General Appearance: no apparent distress, lethargic Neck: limited range of motion Cardiovascular: normal rate Respiratory/Chest: decreased breath sounds Abdomen: soft Extremities: moderate edema Jay Severino MD Sep 06, 2020 11:40
[2020-09-06 12:00] VITALS: BP 100/49
--- NOTE | 2020-09-06 13:12 | Cardiac Electrophysiology PN ---
Assessment/Plan Assessment/Plan 1. Volume overload, likely due to renal failure as creatinine is 3.5. The echocardiogram showed ejection fraction of 50%. Off Amlodipine. Discussed with Dr. Severino. Started on HD after PermCath placement yesterday 2. Left bundle-branch block. 3. Diastolic dysfunction. Ejection fraction of 50%. 4. Hyperkalemia. Got Kayexalate by Dr. Severino. 5. Diabetic nephropathy. 6. Renal failure. BUN/Cr 81/3.8 S/P permacath and dialysis 7. Hypothyroidism. 8. Iron-deficiency anemia. 9. Right pleural effusion. S/P 800cc Right thoracentesis 09/03/20 DW RN Subjective Subjective Got Right chest PermCath and HD 3 liters out yesterday . In SR Objective Last 24 Hour Vital Signs Date Time Temp Pulse Resp B/P (MAP) Pulse Ox O2 Delivery O2 Flow Rate FiO2 09/06/20 12:00 96.9 70 20 100/49 (66) 97 09/06/20 09:00 Nasal Cannula 2.0 Nasal Cannula 2.0 09/06/20 08:15 97 Nasal Cannula 2.0 28 09/06/20 08:14 77 18 97 Nasal Cannula 2.0 28 09/06/20 08:00 67 09/06/20 08:00 96.4 68 18 101/59 (73) 98 09/06/20 06:00 110/58 09/06/20 04:00 67 09/06/20 04:00 98.0 69 20 113/62 (79) 97 09/06/20 00:00 98.5 78 20 102/50 (67) 95 09/06/20 00:00 77 09/05/20 22:00 102/60 09/05/20 21:00 Nasal Cannula 2.0 Nasal Cannula 2.0 09/05/20 20:42 95 Nasal Cannula 2.0 28 09/05/20 20:42 74 18 95 Nasal Cannula 2.0 28 09/05/20 20:00 72 09/05/20 20:00 97.4 76 20 109/65 (80) 96 09/05/20 16:00 75 09/05/20 16:00 97.5 74 20 120/74 (89) 95 09/05/20 14:55 155/70 09/05/20 14:05 77 17 155/70 (98) 99 09/05/20 14:00 75 13 144/66 (92) 100 09/05/20 13:55 97.7 75 14 143/68 (93) 100 09/05/20 13:37 100 16 2.0 Intake and Output 09/05/20 09/06/20 19:00 07:00 Intake Total 236 ml 200 ml Output Total 3200 ml Balance 236 ml -3000 ml Intake Oral 236 ml 200 ml Output Urine Total 200 ml Hemodialysis UF 3000 ml # Voids 1 Laboratory Tests Test 09/05/20 15:59 09/05/20 22:07 09/06/20 05:50 09/06/20 05:58 POC Whole Blood Glucose 115 MG/DL (74-106) H 114 MG/DL (74-106) H 102 MG/DL (74-106) White Blood Count 7.6 K/UL (4.8-10.8) Red Blood Count 2.81 M/UL (4.20-5.40) L Hemoglobin 8.0 G/DL (12.0-16.0) L Hematocrit 26.8 % (37.0-47.0) L Mean Corpuscular Volume 95 FL (80-99) Mean Corpuscular Hemoglobin 28.5 PG (27.0-31.0) Mean Corpuscular Hemoglobin Concent 29.9 G/DL (32.0-36.0) L Red Cell Distribution Width 16.9 % (11.6-14.8) H Platelet Count 96 K/UL (150-450) L Mean Platelet Volume 7.9 FL (6.5-10.1) Neutrophils (%) (Auto) % (45.0-75.0) Lymphocytes (%) (Auto) % (20.0-45.0) Monocytes (%) (Auto) % (1.0-10.0) Eosinophils (%) (Auto) % (0.0-3.0) Basophils (%) (Auto) % (0.0-2.0) Differential Total Cells Counted 100 Neutrophils % (Manual) 69 % (45-75) Lymphocytes % (Manual) 13 % (20-45) L Monocytes % (Manual) 13 % (1-10) H Eosinophils % (Manual) 2 % (0-3) Basophils % (Manual) 0 % (0-2) Band Neutrophils 3 % (0-8) Platelet Estimate Decreased L Platelet Morphology Normal Hypochromasia 2+ Anisocytosis 1+ Sodium Level 136 MMOL/L (136-145) Potassium Level 3.6 MMOL/L (3.5-5.1) Chloride Level 100 MMOL/L (98-107) Carbon Dioxide Level 26 MMOL/L (21-32) Anion Gap 10 mmol/L (5-15) Blood Urea Nitrogen 73 mg/dL (7-18) H Creatinine 3.8 MG/DL (0.55-1.30) H Estimat Glomerular Filtration Rate 11.8 mL/min (>60) Glucose Level 99 MG/DL (74-106) Calcium Level 8.2 MG/DL (8.5-10.1) L Phosphorus Level 5.0 MG/DL (2.5-4.9) H Magnesium Level 2.4 MG/DL (1.8-2.4) Total Bilirubin 0.8 MG/DL (0.2-1.0) Aspartate Amino Transf (AST/SGOT) 17 U/L (15-37) Alanine Aminotransferase (ALT/SGPT) 13 U/L (12-78) Alkaline Phosphatase 132 U/L (46-116) H Pro-B-Type Natriuretic Peptide 35092 pg/mL (0-125) H Total Protein 7.0 G/DL (6.4-8.2) Albumin 2.8 G/DL (3.4-5.0) L Globulin 4.2 g/dL Albumin/Globulin Ratio 0.7 (1.0-2.7) L Test 09/06/20 12:12 POC Whole Blood Glucose 90 MG/DL (74-106) Microbiology Date/Time Source Procedure Growth Status 09/03/20 14:03 Ascities Fluid Gram Stain - Final Resulted 09/03/20 14:03 Ascities Fluid Body Fluid Culture - Preliminary Resulted Objective HEAD AND NECK: No JVD. LUNGS: Coarse rhonchi, bibasilar rales.Right chest PermCath CARDIOVASCULAR: Regular S1 and S2 with no gallop. ABDOMEN: Soft. EXTREMITIES: Bilateral 2+ pitting edema and bandage on both legs Sina Paulson MD Sep 06, 2020 13:12
[2020-09-06] MEDS ORDERED: Iron Sucrose 200 MG in NS 110 ML IVPB ONE (14:00)
--- NOTE | 2020-09-06 14:38 | Surgery Progress Note ---
Surgery Progress Note Subjective Additional Comments right transjugular tunneled dialysis catheter in doing well since no complaints Objective Last 24 Hour Vital Signs Date Time Temp Pulse Resp B/P (MAP) Pulse Ox O2 Delivery O2 Flow Rate FiO2 09/06/20 12:00 96.9 70 20 100/49 (66) 97 09/06/20 09:00 Nasal Cannula 2.0 Nasal Cannula 2.0 09/06/20 08:15 97 Nasal Cannula 2.0 28 09/06/20 08:14 77 18 97 Nasal Cannula 2.0 28 09/06/20 08:00 67 09/06/20 08:00 96.4 68 18 101/59 (73) 98 09/06/20 06:00 110/58 09/06/20 04:00 67 09/06/20 04:00 98.0 69 20 113/62 (79) 97 09/06/20 00:00 98.5 78 20 102/50 (67) 95 09/06/20 00:00 77 09/05/20 22:00 102/60 09/05/20 21:00 Nasal Cannula 2.0 Nasal Cannula 2.0 09/05/20 20:42 95 Nasal Cannula 2.0 28 09/05/20 20:42 74 18 95 Nasal Cannula 2.0 28 09/05/20 20:00 72 09/05/20 20:00 97.4 76 20 109/65 (80) 96 09/05/20 16:00 75 09/05/20 16:00 97.5 74 20 120/74 (89) 95 09/05/20 14:55 155/70 I&O Intake and Output 09/05/20 09/06/20 19:00 07:00 Intake Total 236 ml 200 ml Output Total 3200 ml Balance 236 ml -3000 ml Intake Oral 236 ml 200 ml Output Urine Total 200 ml Hemodialysis UF 3000 ml # Voids 1 Dressing: saturated Cardiovascular: RSR Respiratory: decreased breath sounds Abdomen: non-tender, present bowel sounds Extremities: no edema, no tenderness, no cyanosis Laboratory Tests Test 09/05/20 15:59 09/05/20 22:07 09/06/20 05:50 09/06/20 05:58 POC Whole Blood Glucose 115 MG/DL (74-106) H 114 MG/DL (74-106) H 102 MG/DL (74-106) White Blood Count 7.6 K/UL (4.8-10.8) Red Blood Count 2.81 M/UL (4.20-5.40) L Hemoglobin 8.0 G/DL (12.0-16.0) L Hematocrit 26.8 % (37.0-47.0) L Mean Corpuscular Volume 95 FL (80-99) Mean Corpuscular Hemoglobin 28.5 PG (27.0-31.0) Mean Corpuscular Hemoglobin Concent 29.9 G/DL (32.0-36.0) L Red Cell Distribution Width 16.9 % (11.6-14.8) H Platelet Count 96 K/UL (150-450) L Mean Platelet Volume 7.9 FL (6.5-10.1) Neutrophils (%) (Auto) % (45.0-75.0) Lymphocytes (%) (Auto) % (20.0-45.0) Monocytes (%) (Auto) % (1.0-10.0) Eosinophils (%) (Auto) % (0.0-3.0) Basophils (%) (Auto) % (0.0-2.0) Differential Total Cells Counted 100 Neutrophils % (Manual) 69 % (45-75) Lymphocytes % (Manual) 13 % (20-45) L Monocytes % (Manual) 13 % (1-10) H Eosinophils % (Manual) 2 % (0-3) Basophils % (Manual) 0 % (0-2) Band Neutrophils 3 % (0-8) Platelet Estimate Decreased L Platelet Morphology Normal Hypochromasia 2+ Anisocytosis 1+ Sodium Level 136 MMOL/L (136-145) Potassium Level 3.6 MMOL/L (3.5-5.1) Chloride Level 100 MMOL/L (98-107) Carbon Dioxide Level 26 MMOL/L (21-32) Anion Gap 10 mmol/L (5-15) Blood Urea Nitrogen 73 mg/dL (7-18) H Creatinine 3.8 MG/DL (0.55-1.30) H Estimat Glomerular Filtration Rate 11.8 mL/min (>60) Glucose Level 99 MG/DL (74-106) Calcium Level 8.2 MG/DL (8.5-10.1) L Phosphorus Level 5.0 MG/DL (2.5-4.9) H Magnesium Level 2.4 MG/DL (1.8-2.4) Total Bilirubin 0.8 MG/DL (0.2-1.0) Aspartate Amino Transf (AST/SGOT) 17 U/L (15-37) Alanine Aminotransferase (ALT/SGPT) 13 U/L (12-78) Alkaline Phosphatase 132 U/L (46-116) H Pro-B-Type Natriuretic Peptide 97466 pg/mL (0-125) H Total Protein 7.0 G/DL (6.4-8.2) Albumin 2.8 G/DL (3.4-5.0) L Globulin 4.2 g/dL Albumin/Globulin Ratio 0.7 (1.0-2.7) L Test 09/06/20 12:12 POC Whole Blood Glucose 90 MG/DL (74-106) Plan Problems: (1) Acute on chronic diastolic (congestive) heart failure (2) Anemia (3) Acute respiratory failure Assessment & Plan: Large right pleural effusion persists, unchanged. Bilateral interstitial and airspace edema, cardiomegaly persists, probably unchanged allowing for differences in technique and inspiration (4) ACS (acute coronary syndrome) (5) History of hypertension (6) Moderate pulmonary arterial systolic hypertension (7) Left bundle branch block (LBBB) (8) Diabetes mellitus (9) Diabetic nephropathy (10) Renal failure (ARF), acute on chronic (11) Hyperkalemia (12) Bacteremia (13) CAD (coronary artery disease) (14) Hypothyroidism (15) Cardiac left ventricular ejection fraction greater than 40 percent (16) Grade I diastolic dysfunction (17) UTI (urinary tract infection) (18) Ulcers of both lower legs (19) Open wounds involving multiple regions of lower extremity Assessment & Plan: Patient identified admission having bilateral lower extremity edema open wounds as well as necrotic ulcerations. Patient states she has had this for some time now and acutely worsening as well. Bilateral lower leg wounds do to blisters from edema. Right medial lower leg wound 2.1x4.2x0.2 dark brown scab . Right anterior lower leg wound 5.6x5.3x0.2 pink wound bed. Right distal anterior lower leg 4.0x6.0x0.2 pink wound bed . Large amount serous drainage right leg wounds , Xeroform ,gauze,abd pad and kerlix applied change every shift. Left lower leg wound 3.7x5.0x0.3 100% green slough large amount serous drainage noted with small blisters ifeoma wound, Thera Honey, gauze,abd pad and kerlix applied, change every shift. Local wound care plan initiate Nutritional optimization Turn every 2 hours Elevate extremities Thank you will follow recommendations Right deep veins: Unremarkable. No DVT in the right common femoral, femoral, proximal deep femoral or popliteal veins. The veins demonstrate normal color flow, are normally compressible, with normal phasic flow and/or augmentation response. Right superficial veins: Unremarkable. No thrombus in the visualized right great saphenous vein. Left deep veins: Unremarkable. No DVT in the left common femoral, femoral, proximal deep femoral or popliteal veins. The veins demonstrate normal color flow, are normally compressible, with normal phasic flow and/or augmentation response. Left superficial veins: Unremarkable. No thrombus in the visualized left great saphenous vein. Soft tissues: No acute findings. No popliteal cyst. IMPRESSION: Normal bilateral lower extremity duplex venous ultrasound. DAILY ESTIMATED NEEDS: Needs based on ARF, now HD 65.7kg abw 25-30 kcals/kg [id number] total kcals 1.25-1.8 g protein/kg 82-118 g total protein Fluid per MD, HD pending NUTRITION DIAGNOSIS: Increased pro needs r/t renal dysfunction as evidenced by pt w/ ARF, w/ now pending HD, K on adm (5.8), elev BUN (81), elev Creat (3.8), elev phos and mg. CURRENT DIET:Renal/ CCHO MED PO DIET RECOMMENDATIONS: Renal / CCHO LOW diet + high pro snacks in b/w meals ADDITIONAL RECOMMENDATIONS: 1) Maintain calibrated bed scale wts 2) High pro snacks in b/w meals 3) Rec WC eval-> add nephrovite 1 tab daily Vit C per nephOmar Lugo Sep 06, 2020 14:38
[2020-09-06 16:00] VITALS: BP 100/51
[2020-09-06 20:00] VITALS: BP 105/53
--- NOTE | 2020-09-06 21:15 | General Progress Note ---
Subjective ROS Limited/Unobtainable: Yes Allergies: Coded Allergies: No Known Allergies (Unverified , 10/10/19) Objective Last 24 Hour Vital Signs Date Time Temp Pulse Resp B/P (MAP) Pulse Ox O2 Delivery O2 Flow Rate FiO2 09/06/20 20:22 69 18 96 Nasal Cannula 2.0 28 09/06/20 20:22 96 Nasal Cannula 2.0 28 09/06/20 16:00 97.5 62 18 100/51 (67) 96 09/06/20 16:00 63 09/06/20 12:00 96.9 70 20 100/49 (66) 97 09/06/20 12:00 69 09/06/20 09:00 Nasal Cannula 2.0 Nasal Cannula 2.0 09/06/20 08:15 97 Nasal Cannula 2.0 28 09/06/20 08:14 77 18 97 Nasal Cannula 2.0 28 09/06/20 08:00 67 09/06/20 08:00 96.4 68 18 101/59 (73) 98 09/06/20 06:00 110/58 09/06/20 04:00 67 09/06/20 04:00 98.0 69 20 113/62 (79) 97 09/06/20 00:00 98.5 78 20 102/50 (67) 95 09/06/20 00:00 77 09/05/20 22:00 102/60 Intake and Output 09/05/20 09/06/20 19:00 07:00 Intake Total 236 ml 200 ml Output Total 3200 ml Balance 236 ml -3000 ml Intake Oral 236 ml 200 ml Output Urine Total 200 ml Hemodialysis UF 3000 ml # Voids 1 Laboratory Tests 09/05/20 22:07: POC Whole Blood Glucose 114H 09/06/20 05:50: White Blood Count 7.6, Red Blood Count 2.81L, Hemoglobin 8.0L, Hematocrit 26.8L, Mean Corpuscular Volume 95, Mean Corpuscular Hemoglobin 28.5, Mean Corpuscular Hemoglobin Concent 29.9L, Red Cell Distribution Width 16.9H, Platelet Count 96L, Mean Platelet Volume 7.9, Neutrophils (%) (Auto) , Lymphocytes (%) (Auto) , Monocytes (%) (Auto) , Eosinophils (%) (Auto) , Basophils (%) (Auto) , Differential Total Cells Counted 100, Neutrophils % (Manual) 69, Lymphocytes % (Manual) 13L, Monocytes % (Manual) 13H, Eosinophils % (Manual) 2, Basophils % (Manual) 0, Band Neutrophils 3, Platelet Estimate DecreasedL, Platelet Morphology Normal, Hypochromasia 2+, Anisocytosis 1+, Sodium Level 136, Potassium Level 3.6, Chloride Level 100, Carbon Dioxide Level 26, Anion Gap 10, Blood Urea Nitrogen 73H, Creatinine 3.8H, Estimat Glomerular Filtration Rate 11.8, Glucose Level 99, Calcium Level 8.2L, Phosphorus Level 5.0H, Magnesium Level 2.4, Total Bilirubin 0.8, Aspartate Amino Transf (AST/SGOT) 17, Alanine Aminotransferase (ALT/SGPT) 13, Alkaline Phosphatase 132H, Pro-B-Type Natriuretic Peptide 10306F, Total Protein 7.0, Albumin 2.8L, Globulin 4.2, Albumin/Globulin Ratio 0.7L 09/06/20 05:58: POC Whole Blood Glucose 102 09/06/20 12:12: POC Whole Blood Glucose 90 09/06/20 16:38: POC Whole Blood Glucose 87 Height (Feet): 5 Height (Inches): 10.00 Weight (Pounds): 218 Assessment/Plan Problem List: (1) Anemia ICD Codes: D64.9 - Anemia, unspecified SNOMED: 128734612 (2) Ulcers of both lower legs ICD Codes: L97.919 - Non-pressure chronic ulcer of unspecified part of right lower leg with unspecified severity; L97.929 - Non-pressure chronic ulcer of unspecified part of left lower leg with unspecified severity SNOMED: 23797186, 328924850 (3) Open wounds involving multiple regions of lower extremity ICD Codes: S81.809A - Unspecified open wound, unspecified lower leg, initial encounter SNOMED: 633507252 (4) Pneumonia ICD Codes: J18.9 - Pneumonia, unspecified organism SNOMED: 572520314 (5) History of hypertension ICD Codes: Z86.79 - Personal history of other diseases of the circulatory syste m SNOMED: 901181855 (6) Diabetes mellitus ICD Codes: E11.9 - Type 2 diabetes mellitus without complications SNOMED: 33422303 (7) Renal failure (ARF), acute on chronic ICD Codes: N17.9 - Acute kidney failure, unspecified; N18.9 - Chronic kidney disease, unspecified SNOMED: 381491759 (8) Hyperkalemia ICD Codes: E87.5 - Hyperkalemia SNOMED: 75724977 (9) CAD (coronary artery disease) ICD Codes: I25.10 - Atherosclerotic heart disease of [place] coronary artery without angina pectoris SNOMED: 97660890 (10) Hypothyroidism ICD Codes: E03.9 - Hypothyroidism, unspecified SNOMED: 77254599 (11) Cardiac left ventricular ejection fraction greater than 40 percent ICD Codes: R94.30 - Abnormal result of cardiovascular function study, unspecified SNOMED: 021437035 (12) Grade I diastolic dysfunction ICD Codes: I51.9 - Heart disease, unspecified SNOMED: 5846698 Status: progressing, unchanged Assessment/Plan: afebrile nac cad lyte abnormality hypothyroidism check lytes reviewed chart and labs Tj Suazo MD Sep 06, 2020 21:15
[2020-09-06] MEDS: Dyna-Hex 2% Top Sol 2oz TOPIC SCH (21:47)
[2020-09-07] VITALS: BP 100/49
[2020-09-07 04:00] VITALS: BP 129/60
[2020-09-07] MEDS: NovoLOG Insulin Flexpen SUBQ SCH ×4 (06:18→21:00)
[2020-09-07 08:00] VITALS: BP 141/67
[2020-09-07] MEDS ORDERED: Morphine Sulfate 2mg/ml Inj(IV/IM USE ONLY) IVP PRN (08:30)
[2020-09-07 08:43] LABS: HEMATOCRIT 26.7 % (37.0-47.0); MEAN CORPUSCULAR VOLUME 96 FL (80-99); PLATELET COUNT 75 K/UL (150-450); RED BLOOD COUNT 2.78 M/UL (4.20-5.40); RED CELL DISTRIBUTION WIDTH 16.6 % (11.6-14.8); WHITE BLOOD COUNT 7.1 K/UL (4.8-10.8)
[2020-09-07] MEDS ORDERED: Albuterol/Ipratropium 3ml neb HHN PRN (09:00)
[2020-09-07] MEDS: Heparin 5000 units/ml inj SUBQ SCH ×2 (09:00→21:00)
[2020-09-07 09:08] LABS: ALBUMIN 2.7 G/DL (3.4-5.0); ALBUMIN/GLOBULIN RATIO 0.7 (1.0-2.7); BILIRUBIN,TOTAL 0.8 MG/DL (0.2-1.0); CREATININE 3.5 MG/DL (0.55-1.30); PHOSPHORUS 4.7 MG/DL (2.5-4.9); POTASSIUM 3.8 MMOL/L (3.5-5.1)
[2020-09-07] MEDS: Indomethacin 25mg cap ORAL SCH ×4 (09:30→18:00)
[2020-09-07] MEDS ORDERED: Lidocaine 1%/ 10mg/ml/EPI 0.01mg/ml 20ml INJ SCH (10:30)
[2020-09-07 12:00] VITALS: BP 140/71
--- NOTE | 2020-09-07 13:18 | Nephrology Progress Note ---
Assessment/Plan Problem List: (1) Renal failure (ARF), acute on chronic (2) Hyperkalemia (3) Hypothyroidism (4) Acute on chronic diastolic (congestive) heart failure (5) Diabetic nephropathy (6) Pneumonia Assessment: Leukocytosis, abnormal chest x-ray (7) Anemia Assessment 1) Renal failure (ARF), acute on chronic (2) Diabetes mellitus (3) Hypoglycemia (4) Hyperkalemia (5) Diabetic nephropathy (6) H/o Pleural effusion (7) Morbid obesity (8) Low Iron Anemia (9) HypoThyroidism Plan September 07: Patient was dialyzed 2 days in a row. Ultra filtrated 3 L a day. Patient continues to be edematous however much less. Will dialyze again tomorrow with ultrafiltration. Will monitor renal parameters. September 06: Patient was dialyzed yesterday. Ultrafiltration was done. Patient remains edematous. Will do another dialysis and aim 3 L fluid removal as tolerates. Discontinue IV Lasix and oral hydralazine. Will adjust blood pressure medication as needed. Discussed with RN, antibiotics intravenously if possible should be changed to oral since there is no IV line available. 1 dose of Venofer 200 mg ordered to be given during dialysis. Subcutaneous Epogen ordered for anemia. September 05: New 24-hour urine suggestive of creatinine clearance of 3. Patient due for insertion of dialysis catheter. Hemodialysis and ultrafiltration after insertion of catheter. September 04: New 24-hour urine test is in process. Discussed with RN. Patient was short of breath overnight. ABG ordered. 1 dose of Zaroxolyn ordered. Patient has fluid overload, and need ultrafiltration. Blood cultures negative. Leukocytosis resolved. Will order placement of permacath and dialysis and ultrafiltration. September 03: The 24-hour urine results appears to be an error in view of total volume compared to intake and output records. Today's labs reviewed. Serum creatinine higher. Talk to the nursing charge of the floor and will order another 24-hour urine collection. Meanwhile continue per ID treatment for UTI and leukocytosis. Dexamethasone on the medication list was questioned. Patient may require dialysis if continues to have worsening renal parameters. September 02: Consent for dialysis catheter is taken. Catheter placement deferred due to leukocytosis. Surveillance blood culture ordered. Urine culture ordered. Blood pressure medication adjusted. 24-hour urine for creatinine clearance and total protein pending. Previously: Chan Cath 24 H CrCl and total protein ordered Off IV fluids, on IV Lasix Adjust BP meds Previous 2D echocardiogram ejection fraction is reported to 50% Previous Kidney ultrasound noted. Current kidney ultrasound results below Anemia work-up As needed Kayexalate for high potassium Keep blood pressure and blood sugar in check Monitor renal parameters Requires HD treatment [facility] KIDNEY IMPRESSION: 1. Ascites. 2. Bilateral pleural effusions. 3. Complex right renal cysts of uncertain etiology. This complex cyst is unchanged from the study of 01/12/2020. 4. Mildly atrophic right kidney. 5. Magnetic resonance imaging of the abdomen with gadolinium administration is advised for further evaluation of complex right renal cyst. Subjective ROS Limited/Unobtainable: No Constitutional: Reports: malaise Objective Objective Last 24 Hour Vital Signs Date Time Temp Pulse Resp B/P (MAP) Pulse Ox O2 Delivery O2 Flow Rate FiO2 09/07/20 12:00 64 09/07/20 09:00 Nasal Cannula 2.0 09/07/20 08:00 63 09/07/20 08:00 98.7 61 19 141/67 (91) 97 09/07/20 04:00 62 09/07/20 04:00 96.1 62 16 129/60 (83) 98 09/07/20 00:00 65 09/07/20 00:00 97.9 67 17 100/49 (66) 95 09/06/20 21:00 Nasal Cannula 2.0 Nasal Cannula 2.0 09/06/20 20:22 69 18 96 Nasal Cannula 2.0 28 09/06/20 20:22 96 Nasal Cannula 2.0 28 09/06/20 20:00 69 09/06/20 20:00 97.0 68 18 105/53 (70) 94 09/06/20 16:00 97.5 62 18 100/51 (67) 96 09/06/20 16:00 63 Intake and Output 09/06/20 09/07/20 19:00 07:00 Intake Total 240 ml 200 ml Output Total 100 ml Balance 140 ml 200 ml Intake Oral 240 ml 200 ml Output Urine Total 100 ml # Bowel Movements 1 Laboratory Tests 09/06/20 16:38: POC Whole Blood Glucose 87 09/06/20 21:50: POC Whole Blood Glucose 91 09/07/20 06:15: POC Whole Blood Glucose 87 09/07/20 07:25: White Blood Count 7.1, Red Blood Count 2.78L, Hemoglobin 8.0L, Hematocrit 26.7L, Mean Corpuscular Volume 96, Mean Corpuscular Hemoglobin 28.7, Mean Corpuscular Hemoglobin Concent 29.9L, Red Cell Distribution Width 16.6H, Platelet Count 75L, Mean Platelet Volume 8.8, Neutrophils (%) (Auto) , Lymphocytes (%) (Auto) , Monocytes (%) (Auto) , Eosinophils (%) (Auto) , Basophils (%) (Auto) , Differential Total Cells Counted 100, Neutrophils % (Manual) 75, Lymphocytes % (Manual) 15L, Monocytes % (Manual) 9, Eosinophils % (Manual) 1, Basophils % (Manual) 0, Band Neutrophils 0, Platelet Estimate DecreasedL, Platelet Morphology Normal, Hypochromasia 1+, Anisocytosis 1+, Sodium Level 136, Potassium Level 3.8, Chloride Level 100, Carbon Dioxide Level 26, Anion Gap 11, Blood Urea Nitrogen 59H, Creatinine 3.5H, Estimat Glomerular Filtration Rate 13.0, Glucose Level 74, Uric Acid 5.2, Calcium Level 8.0L, Phosphorus Level 4.7, Magnesium Level 2.3, Total Bilirubin 0.8, Aspartate Amino Transf (AST/SGOT) 15, Alanine Aminotransferase (ALT/SGPT) 10L, Alkaline Phosphatase 114, C-Reactive Protein, Quantitative 10.7H, Pro-B-Type Natriuretic Peptide 09451I, Total Protein 6.6, Albumin 2.7L, Globulin 3.9, Albumin/Globulin Ratio 0.7L 09/07/20 12:05: POC Whole Blood Glucose 81 Height (Feet): 5 Height (Inches): 10.00 Weight (Pounds): 218 General Appearance: no apparent distress Cardiovascular: normal rate Respiratory/Chest: decreased breath sounds Abdomen: distended Extremities: moderate edema Jay Severino MD Sep 07, 2020 13:18
--- NOTE | 2020-09-07 13:33 | General Progress Note ---
Subjective ROS Limited/Unobtainable: Yes Allergies: Coded Allergies: No Known Allergies (Unverified , 10/10/19) Objective Last 24 Hour Vital Signs Date Time Temp Pulse Resp B/P (MAP) Pulse Ox O2 Delivery O2 Flow Rate FiO2 09/07/20 12:00 64 09/07/20 09:00 Nasal Cannula 2.0 09/07/20 08:00 63 09/07/20 08:00 98.7 61 19 141/67 (91) 97 09/07/20 04:00 62 09/07/20 04:00 96.1 62 16 129/60 (83) 98 09/07/20 00:00 65 09/07/20 00:00 97.9 67 17 100/49 (66) 95 09/06/20 21:00 Nasal Cannula 2.0 Nasal Cannula 2.0 09/06/20 20:22 69 18 96 Nasal Cannula 2.0 28 09/06/20 20:22 96 Nasal Cannula 2.0 28 09/06/20 20:00 69 09/06/20 20:00 97.0 68 18 105/53 (70) 94 09/06/20 16:00 97.5 62 18 100/51 (67) 96 09/06/20 16:00 63 Intake and Output 09/06/20 09/07/20 19:00 07:00 Intake Total 240 ml 200 ml Output Total 100 ml Balance 140 ml 200 ml Intake Oral 240 ml 200 ml Output Urine Total 100 ml # Bowel Movements 1 Laboratory Tests 09/06/20 16:38: POC Whole Blood Glucose 87 09/06/20 21:50: POC Whole Blood Glucose 91 09/07/20 06:15: POC Whole Blood Glucose 87 09/07/20 07:25: White Blood Count 7.1, Red Blood Count 2.78L, Hemoglobin 8.0L, Hematocrit 26.7L, Mean Corpuscular Volume 96, Mean Corpuscular Hemoglobin 28.7, Mean Corpuscular Hemoglobin Concent 29.9L, Red Cell Distribution Width 16.6H, Platelet Count 75L, Mean Platelet Volume 8.8, Neutrophils (%) (Auto) , Lymphocytes (%) (Auto) , Monocytes (%) (Auto) , Eosinophils (%) (Auto) , Basophils (%) (Auto) , Differential Total Cells Counted 100, Neutrophils % (Manual) 75, Lymphocytes % (Manual) 15L, Monocytes % (Manual) 9, Eosinophils % (Manual) 1, Basophils % (Manual) 0, Band Neutrophils 0, Platelet Estimate DecreasedL, Platelet Morphology Normal, Hypochromasia 1+, Anisocytosis 1+, Sodium Level 136, Potassium Level 3.8, Chloride Level 100, Carbon Dioxide Level 26, Anion Gap 11, Blood Urea Nitrogen 59H, Creatinine 3.5H, Estimat Glomerular Filtration Rate 13.0, Glucose Level 74, Uric Acid 5.2, Calcium Level 8.0L, Phosphorus Level 4.7, Magnesium Level 2.3, Total Bilirubin 0.8, Aspartate Amino Transf (AST/SGOT) 15, Alanine Aminotransferase (ALT/SGPT) 10L, Alkaline Phosphatase 114, C-Reactive Protein, Quantitative 10.7H, Pro-B-Type Natriuretic Peptide 43197A, Total Protein 6.6, Albumin 2.7L, Globulin 3.9, Albumin/Globulin Ratio 0.7L 09/07/20 12:05: POC Whole Blood Glucose 81 Height (Feet): 5 Height (Inches): 10.00 Weight (Pounds): 218 Assessment/Plan Problem List: (1) Anemia ICD Codes: D64.9 - Anemia, unspecified SNOMED: 976266806 (2) Ulcers of both lower legs ICD Codes: L97.919 - Non-pressure chronic ulcer of unspecified part of right lower leg with unspecified severity; L97.929 - Non-pressure chronic ulcer of unspecified part of left lower leg with unspecified severity SNOMED: 51394415, 364415974 (3) Open wounds involving multiple regions of lower extremity ICD Codes: S81.809A - Unspecified open wound, unspecified lower leg, initial encounter SNOMED: 992286118 (4) Pneumonia ICD Codes: J18.9 - Pneumonia, unspecified organism SNOMED: 827520255 (5) History of hypertension ICD Codes: Z86.79 - Personal history of other diseases of the circulatory system SNOMED: 764745247 (6) Diabetes mellitus ICD Codes: E11.9 - Type 2 diabetes mellitus without complications SNOMED: 94855071 (7) Renal failure (ARF), acute on chronic ICD Codes: N17.9 - Acute kidney failure, unspecified; N18.9 - Chronic kidney disease, unspecified SNOMED: 982911641 (8) Hyperkalemia ICD Codes: E87.5 - Hyperkalemia SNOMED: 55686992 (9) CAD (coronary artery disease) ICD Codes: I25.10 - Atherosclerotic heart disease of [place] coronary artery without angina pectoris SNOMED: 56338349 (10) Hypothyroidism ICD Codes: E03.9 - Hypothyroidism, unspecified SNOMED: 89926596 (11) Cardiac left ventricular ejection fraction greater than 40 percent ICD Codes: R94.30 - Abnormal result of cardiovascular function study, unspecified SNOMED: 588149905 (12) Grade I diastolic dysfunction ICD Codes: I51.9 - Heart disease, unspecified SNOMED: 1742099 Status: progressing, unchanged Assessment/Plan: anemia no fever no cp cad lyte abnormality hypothyroidism Tj Suazo MD Sep 07, 2020 13:33
[2020-09-07] MEDS: Ceftaroline 200 MG in NS 55 ML IV SCH (13:35)
--- NOTE | 2020-09-07 15:41 | Pulmonology Progress Note ---
Subjective ROS Limited/Unobtainable: Yes Constitutional: Reports: no symptoms HEENT: Repors: no symptoms Respiratory: Reports: no symptoms Allergies: Coded Allergies: No Known Allergies (Unverified , 10/10/19) All Systems: reviewed and negative except above Objective Last 24 Hour Vital Signs Date Time Temp Pulse Resp B/P (MAP) Pulse Ox O2 Delivery O2 Flow Rate FiO2 09/07/20 12:00 64 09/07/20 12:00 96.7 59 19 140/71 (94) 98 09/07/20 09:00 Nasal Cannula 2.0 09/07/20 08:00 63 09/07/20 08:00 98.7 61 19 141/67 (91) 97 09/07/20 04:00 62 09/07/20 04:00 96.1 62 16 129/60 (83) 98 09/07/20 00:00 65 09/07/20 00:00 97.9 67 17 100/49 (66) 95 09/06/20 21:00 Nasal Cannula 2.0 Nasal Cannula 2.0 09/06/20 20:22 69 18 96 Nasal Cannula 2.0 28 09/06/20 20:22 96 Nasal Cannula 2.0 28 09/06/20 20:00 69 09/06/20 20:00 97.0 68 18 105/53 (70) 94 09/06/20 16:00 97.5 62 18 100/51 (67) 96 09/06/20 16:00 63 Intake and Output 09/06/20 09/07/20 19:00 07:00 Intake Total 240 ml 200 ml Output Total 100 ml 3000 ml Balance 140 ml -2800 ml Intake Oral 240 ml 200 ml Output Urine Total 100 ml Hemodialysis UF 3000 ml # Bowel Movements 1 General Appearance: WD/WN HEENT: normocephalic, atraumatic Respiratory: chest wall non-tender, lungs clear Breasts: no masses Cardiovascular: normal peripheral pulses Abdomen: normal bowel sounds, soft, non tender Genitourinary: normal external genitalia Extremities: no cyanosis, no clubbing, other - right knee swelling and warmth Neurologic: metal hanger II-XII grossly normal Laboratory Tests 09/06/20 16:38: POC Whole Blood Glucose 87 09/06/20 21:50: POC Whole Blood Glucose 91 09/07/20 06:15: POC Whole Blood Glucose 87 09/07/20 07:25: White Blood Count 7.1, Red Blood Count 2.78L, Hemoglobin 8.0L, Hematocrit 26.7L, Mean Corpuscular Volume 96, Mean Corpuscular Hemoglobin 28.7, Mean Corpuscular Hemoglobin Concent 29.9L, Red Cell Distribution Width 16.6H, Platelet Count 75L, Mean Platelet Volume 8.8, Neutrophils (%) (Auto) , Lymphocytes (%) (Auto) , Monocytes (%) (Auto) , Eosinophils (%) (Auto) , Basophils (%) (Auto) , Differential Total Cells Counted 100, Neutrophils % (Manual) 75, Lymphocytes % (Manual) 15L, Monocytes % (Manual) 9, Eosinophils % (Manual) 1, Basophils % (Manual) 0, Band Neutrophils 0, Platelet Estimate DecreasedL, Platelet Morphology Normal, Hypochromasia 1+, Anisocytosis 1+, Sodium Level 136, Potassium Level 3.8, Chloride Level 100, Carbon Dioxide Level 26, Anion Gap 11, Blood Urea Nitrogen 59H, Creatinine 3.5H, Estimat Glomerular Filtration Rate 13.0, Glucose Level 74, Uric Acid 5.2, Calcium Level 8.0L, Phosphorus Level 4.7, Magnesium Level 2.3, Total Bilirubin 0.8, Aspartate Amino Transf (AST/SGOT) 15, Alanine Aminotransferase (ALT/SGPT) 10L, Alkaline Phosphatase 114, C-Reactive Protein, Quantitative 10.7H, Pro-B-Type Natriuretic Peptide 90492H, Total Protein 6.6, Albumin 2.7L, Globulin 3.9, Albumin/Globulin Ratio 0.7L 09/07/20 12:05: POC Whole Blood Glucose 81 Current Medications Medications (Trade) Dose Ordered Sig/[place] Route PRN Reason Start Time Stop Time Status Last Admin Dose Admin Acetaminophen (Tylenol) 650 mg Q4H PRN ORAL FEVER 08/30/20 23:45 09/29/20 23:44 Albuterol/ Ipratropium (Albuterol/ Ipratropium) 3 ml Q4H PRN HHN Shortness of Breath 09/07/20 09:00 09/12/20 08:59 Allopurinol (allopurinoL) 300 mg DAILY ORAL 08/31/20 09:00 09/30/20 08:59 09/07/20 09:30 Ceftaroline Fosamil 300 mg/ Sodium Chloride 55 ml @ 55 mls/hr Q12HR@0200,1400 IV 09/08/20 02:00 09/15/20 01:59 Chlorhexidine Gluconate (Josiane-Hex 2%) 1 applic DAILY@2000 TOPIC 09/06/20 20:00 12/05/20 19:59 09/06/20 21:47 Dextrose (Dextrose 50%) 25 ml Q30M PRN IV Hypoglycemia 08/30/20 23:45 11/28/20 23:44 Dextrose (Dextrose 50%) 50 ml Q30M PRN IV Hypoglycemia 08/30/20 23:45 11/28/20 23:44 Epoetin Shlomo (Epoetin Shlomo(ESRD on dialysis)) 10,000 unit TUE- SUBQ 09/08/20 21:00 12/07/20 20:59 Folic Acid (Folate) 3 mg DAILY ORAL 09/02/20 09:00 10/02/20 08:59 09/07/20 09:30 Gabapentin (Neurontin) 300 mg DAILY ORAL 08/31/20 09:00 09/30/20 08:59 09/07/20 09:30 Heparin Sodium (Porcine) (Heparin 5000 units/ml) 5,000 units EVERY 12 HOURS SUBQ 08/31/20 09:00 10/15/20 08:59 09/06/20 00:16 Indomethacin (Indocin) 25 mg THREE TIMES A DAY ORAL 09/04/20 13:00 10/04/20 12:59 09/07/20 09:30 Insulin Aspart (NovoLOG) BEFORE MEALS AND HS SUBQ 08/31/20 06:30 11/29/20 06:29 09/04/20 21:17 Levofloxacin 100 ml @ 100 mls/hr Q48H IVPB 09/04/20 18:00 09/11/20 17:59 09/06/20 17:26 Levothyroxine Sodium (Synthroid) 100 mcg DAILY@0630 ORAL 09/02/20 06:30 10/02/20 06:29 09/07/20 06:11 Lidocaine/ Epinephrine (Lidocaine 1%/ Epi 0.01mg 20ml) 30 ml ONCE INJ 09/07/20 10:30 09/07/20 23:59 Metoclopramide HCl (Reglan) 5 mg THREE TIMES A DAY ORAL 08/31/20 13:00 09/30/20 12:59 09/07/20 09:30 Morphine Sulfate (Morphine Sulfate) 2 mg Q4H PRN IVP For Pain 09/07/20 08:30 09/14/20 08:29 Ondansetron HCl (Zofran) 4 mg Q6H PRN IVP Nausea & Vomiting 08/30/20 23:45 09/29/20 23:44 Pantoprazole (Protonix) 40 mg EVERY 12 HOURS ORAL 08/31/20 21:00 09/30/20 20:59 09/07/20 09:29 Polyethylene Glycol (Miralax) 17 gm DAILYPRN PRN ORAL Constipation 08/30/20 23:45 09/29/20 23:44 Promethazine HCl/ Codeine (Phenergan with Codeine) 5 ml Q6H PRN ORAL cough 08/30/20 23:45 09/29/20 23:44 Assessment/Plan Problems: (1) Acute on chronic diastolic (congestive) heart failure (2) Gout (3) Renal failure (ARF), acute on chronic (4) Diabetes mellitus (5) Left bundle branch block (LBBB) (6) Cardiac left ventricular ejection fraction greater than 40 percent (7) Grade I diastolic dysfunction (8) History of hypertension Assessment/Plan O2 titrate to keep sat > 92%, currently down to O2 via NC thoracentesis done, 600 cc removed from right side. CXR today shows remarkable decrease in amount of right sided effusion empiric abx DVT prophylaxis Tiana Cool MD Sep 07, 2020 15:41
[2020-09-07 16:00] VITALS: BP 145/80
--- NOTE | 2020-09-07 16:57 | Cardiac Electrophysiology PN ---
Assessment/Plan Assessment/Plan 1. Volume overload due to renal failure as creatinine is 3.5. Echocardiogram showed ejection fraction of 50%. Off Amlodipine. Started on HD after PermCath placement 09/05. 2. Left bundle-branch block. 3. Diastolic dysfunction. Ejection fraction of 50%. 4. Hyperkalemia. Got Kayexalate by Dr. Severino. 5. Diabetic nephropathy. 6. Renal failure. BUN/Cr 81/3.8 S/P permacath and dialysis 7. Hypothyroidism. 8. Iron-deficiency anemia. 9. Right pleural effusion. S/P 800cc Right thoracentesis 09/03/20 DW RN Subjective Subjective S/P Right chest PermCath and HD on 09/05 an 09/06. Next HD 09/08 No CP in SR Objective Last 24 Hour Vital Signs Date Time Temp Pulse Resp B/P (MAP) Pulse Ox O2 Delivery O2 Flow Rate FiO2 09/07/20 12:00 64 09/07/20 12:00 96.7 59 19 140/71 (94) 98 09/07/20 09:00 Nasal Cannula 2.0 09/07/20 08:00 63 09/07/20 08:00 98.7 61 19 141/67 (91) 97 09/07/20 04:00 62 09/07/20 04:00 96.1 62 16 129/60 (83) 98 09/07/20 00:00 65 09/07/20 00:00 97.9 67 17 100/49 (66) 95 09/06/20 21:00 Nasal Cannula 2.0 Nasal Cannula 2.0 09/06/20 20:22 69 18 96 Nasal Cannula 2.0 28 09/06/20 20:22 96 Nasal Cannula 2.0 28 09/06/20 20:00 69 09/06/20 20:00 97.0 68 18 105/53 (70) 94 Intake and Output 09/06/20 09/07/20 19:00 07:00 Intake Total 240 ml 200 ml Output Total 100 ml 3000 ml Balance 140 ml -2800 ml Intake Oral 240 ml 200 ml Output Urine Total 100 ml Hemodialysis UF 3000 ml # Bowel Movements 1 Laboratory Tests Test 09/06/20 21:50 09/07/20 06:15 09/07/20 07:25 09/07/20 12:05 POC Whole Blood Glucose 91 MG/DL (74-106) 87 MG/DL (74-106) 81 MG/DL (74-106) White Blood Count 7.1 K/UL (4.8-10.8) Red Blood Count 2.78 M/UL (4.20-5.40) L Hemoglobin 8.0 G/DL (12.0-16.0) L Hematocrit 26.7 % (37.0-47.0) L Mean Corpuscular Volume 96 FL (80-99) Mean Corpuscular Hemoglobin 28.7 PG (27.0-31.0) Mean Corpuscular Hemoglobin Concent 29.9 G/DL (32.0-36.0) L Red Cell Distribution Width 16.6 % (11.6-14.8) H Platelet Count 75 K/UL (150-450) L Mean Platelet Volume 8.8 FL (6.5-10.1) Neutrophils (%) (Auto) % (45.0-75.0) Lymphocytes (%) (Auto) % (20.0-45.0) Monocytes (%) (Auto) % (1.0-10.0) Eosinophils (%) (Auto) % (0.0-3.0) Basophils (%) (Auto) % (0.0-2.0) Differential Total Cells Counted 100 Neutrophils % (Manual) 75 % (45-75) Lymphocytes % (Manual) 15 % (20-45) L Monocytes % (Manual) 9 % (1-10) Eosinophils % (Manual) 1 % (0-3) Basophils % (Manual) 0 % (0-2) Band Neutrophils 0 % (0-8) Platelet Estimate Decreased L Platelet Morphology Normal Hypochromasia 1+ Anisocytosis 1+ Sodium Level 136 MMOL/L (136-145) Potassium Level 3.8 MMOL/L (3.5-5.1) Chloride Level 100 MMOL/L (98-107) Carbon Dioxide Level 26 MMOL/L (21-32) Anion Gap 11 mmol/L (5-15) Blood Urea Nitrogen 59 mg/dL (7-18) H Creatinine 3.5 MG/DL (0.55-1.30) H Estimat Glomerular Filtration Rate 13.0 mL/min (>60) Glucose Level 74 MG/DL (74-106) Uric Acid 5.2 MG/DL (2.6-7.2) Calcium Level 8.0 MG/DL (8.5-10.1) L Phosphorus Level 4.7 MG/DL (2.5-4.9) Magnesium Level 2.3 MG/DL (1.8-2.4) Total Bilirubin 0.8 MG/DL (0.2-1.0) Aspartate Amino Transf (AST/SGOT) 15 U/L (15-37) Alanine Aminotransferase (ALT/SGPT) 10 U/L (12-78) L Alkaline Phosphatase 114 U/L (46-116) C-Reactive Protein, Quantitative 10.7 mg/dL (0.00-0.90) H Pro-B-Type Natriuretic Peptide 83082 pg/mL (0-125) H Total Protein 6.6 G/DL (6.4-8.2) Albumin 2.7 G/DL (3.4-5.0) L Globulin 3.9 g/dL Albumin/Globulin Ratio 0.7 (1.0-2.7) L Objective HEAD AND NECK: No JVD. LUNGS: Coarse rhonchi, bibasilar rales.Right chest PermCath CARDIOVASCULAR: Regular S1 and S2 with no gallop. ABDOMEN: Soft. EXTREMITIES: Bilateral 2+ pitting edema and bandage on both legs Sina Paulson MD Sep 07, 2020 16:57
--- NOTE | 2020-09-07 17:04 | Surgery Progress Note ---
Surgery Progress Note Subjective Additional Comments lost iv today was planning central line but fortunately able to obtain peripheral again Objective Last 24 Hour Vital Signs Date Time Temp Pulse Resp B/P (MAP) Pulse Ox O2 Delivery O2 Flow Rate FiO2 09/07/20 12:00 64 09/07/20 12:00 96.7 59 19 140/71 (94) 98 09/07/20 09:00 Nasal Cannula 2.0 09/07/20 08:00 63 09/07/20 08:00 98.7 61 19 141/67 (91) 97 09/07/20 04:00 62 09/07/20 04:00 96.1 62 16 129/60 (83) 98 09/07/20 00:00 65 09/07/20 00:00 97.9 67 17 100/49 (66) 95 09/06/20 21:00 Nasal Cannula 2.0 Nasal Cannula 2.0 09/06/20 20:22 69 18 96 Nasal Cannula 2.0 28 09/06/20 20:22 96 Nasal Cannula 2.0 28 09/06/20 20:00 69 09/06/20 20:00 97.0 68 18 105/53 (70) 94 I&O Intake and Output 09/06/20 09/07/20 19:00 07:00 Intake Total 240 ml 200 ml Output Total 100 ml 3000 ml Balance 140 ml -2800 ml Intake Oral 240 ml 200 ml Output Urine Total 100 ml Hemodialysis UF 3000 ml # Bowel Movements 1 Dressing: saturated Cardiovascular: RSR Respiratory: decreased breath sounds Abdomen: non-tender, present bowel sounds Extremities: no edema, no tenderness, no cyanosis Laboratory Tests Test 09/06/20 21:50 09/07/20 06:15 09/07/20 07:25 09/07/20 12:05 POC Whole Blood Glucose 91 MG/DL (74-106) 87 MG/DL (74-106) 81 MG/DL (74-106) White Blood Count 7.1 K/UL (4.8-10.8) Red Blood Count 2.78 M/UL (4.20-5.40) L Hemoglobin 8.0 G/DL (12.0-16.0) L Hematocrit 26.7 % (37.0-47.0) L Mean Corpuscular Volume 96 FL (80-99) Mean Corpuscular Hemoglobin 28.7 PG (27.0-31.0) Mean Corpuscular Hemoglobin Concent 29.9 G/DL (32.0-36.0) L Red Cell Distribution Width 16.6 % (11.6-14.8) H Platelet Count 75 K/UL (150-450) L Mean Platelet Volume 8.8 FL (6.5-10.1) Neutrophils (%) (Auto) % (45.0-75.0) Lymphocytes (%) (Auto) % (20.0-45.0) Monocytes (%) (Auto) % (1.0-10.0) Eosinophils (%) (Auto) % (0.0-3.0) Basophils (%) (Auto) % (0.0-2.0) Differential Total Cells Counted 100 Neutrophils % (Manual) 75 % (45-75) Lymphocytes % (Manual) 15 % (20-45) L Monocytes % (Manual) 9 % (1-10) Eosinophils % (Manual) 1 % (0-3) Basophils % (Manual) 0 % (0-2) Band Neutrophils 0 % (0-8) Platelet Estimate Decreased L Platelet Morphology Normal Hypochromasia 1+ Anisocytosis 1+ Sodium Level 136 MMOL/L (136-145) Potassium Level 3.8 MMOL/L (3.5-5.1) Chloride Level 100 MMOL/L (98-107) Carbon Dioxide Level 26 MMOL/L (21-32) Anion Gap 11 mmol/L (5-15) Blood Urea Nitrogen 59 mg/dL (7-18) H Creatinine 3.5 MG/DL (0.55-1.30) H Estimat Glomerular Filtration Rate 13.0 mL/min (>60) Glucose Level 74 MG/DL (74-106) Uric Acid 5.2 MG/DL (2.6-7.2) Calcium Level 8.0 MG/DL (8.5-10.1) L Phosphorus Level 4.7 MG/DL (2.5-4.9) Magnesium Level 2.3 MG/DL (1.8-2.4) Total Bilirubin 0.8 MG/DL (0.2-1.0) Aspartate Amino Transf (AST/SGOT) 15 U/L (15-37) Alanine Aminotransferase (ALT/SGPT) 10 U/L (12-78) L Alkaline Phosphatase 114 U/L (46-116) C-Reactive Protein, Quantitative 10.7 mg/dL (0.00-0.90) H Pro-B-Type Natriuretic Peptide 66841 pg/mL (0-125) H Total Protein 6.6 G/DL (6.4-8.2) Albumin 2.7 G/DL (3.4-5.0) L Globulin 3.9 g/dL Albumin/Globulin Ratio 0.7 (1.0-2.7) L Plan Problems: (1) Acute on chronic diastolic (congestive) heart failure (2) Anemia (3) Acute respiratory failure Assessment & Plan: Large right pleural effusion persists, unchanged. Bilateral interstitial and airspace edema, cardiomegaly persists, probably unchanged allowing for differences in technique and inspiration (4) ACS (acute coronary syndrome) (5) History of hypertension (6) Moderate pulmonary arterial systolic hypertension (7) Left bundle branch block (LBBB) (8) Diabetes mellitus (9) Diabetic nephropathy (10) Renal failure (ARF), acute on chronic (11) Hyperkalemia (12) Bacteremia (13) CAD (coronary artery disease) (14) Hypothyroidism (15) Cardiac left ventricular ejection fraction greater than 40 percent (16) Grade I diastolic dysfunction (17) UTI (urinary tract infection) (18) Ulcers of both lower legs (19) Open wounds involving multiple regions of lower extremity Assessment & Plan: Patient identified admission having bilateral lower extremity edema open wounds as well as necrotic ulcerations. Patient states she has had this for some time now and acutely worsening as well. Bilateral lower leg wounds do to blisters from edema. Right medial lower leg wound 2.1x4.2x0.2 dark brown scab . Right anterior lower leg wound 5.6x5.3x0.2 pink wound bed. Right distal anterior lower leg 4.0x6.0x0.2 pink wound bed . Large amount serous drainage right leg wounds , Xeroform ,gauze,abd pad and kerlix applied change every shift. Left lower leg wound 3.7x5.0x0.3 100% green slough large amount serous drainage noted with small blisters ifeoma wound, Thera Honey, gauze,abd pad and kerlix applied, change every shift. Local wound care plan initiate Nutritional optimization Turn every 2 hours Elevate extremities Thank you will follow recommendations Right deep veins: Unremarkable. No DVT in the right common femoral, femoral, proximal deep femoral or popliteal veins. The veins demonstrate normal color flow, are normally compressible, with normal phasic flow and/or augmentation response. Right superficial veins: Unremarkable. No thrombus in the visualized right great saphenous vein. Left deep veins: Unremarkable. No DVT in the left common femoral, femoral, proximal deep femoral or popliteal veins. The veins demonstrate normal color flow, are normally compressible, with normal phasic flow and/or augmentation response. Left superficial veins: Unremarkable. No thrombus in the visualized left great saphenous vein. Soft tissues: No acute findings. No popliteal cyst. IMPRESSION: Normal bilateral lower extremity duplex venous ultrasound. DAILY ESTIMATED NEEDS: Needs based on ARF, now HD 65.7kg abw 25-30 kcals/kg [id number] total kcals 1.25-1.8 g protein/kg 82-118 g total protein Fluid per MD, HD pending NUTRITION DIAGNOSIS: Increased pro needs r/t renal dysfunction as evidenced by pt w/ ARF, w/ now pending HD, K on adm (5.8), elev BUN (81), elev Creat (3.8), elev phos and mg. CURRENT DIET:Renal/ CCHO MED PO DIET RECOMMENDATIONS: Renal / CCHO LOW diet + high pro snacks in b/w meals ADDITIONAL RECOMMENDATIONS: 1) Maintain calibrated bed scale wts 2) High pro snacks in b/w meals 3) Rec WC eval-> add nephrovite 1 tab daily Vit C per Omar Jolley Sep 07, 2020 17:04
[2020-09-07 20:00] VITALS: BP 114/64
[2020-09-07] MEDS: Dyna-Hex 2% Top Sol 2oz TOPIC SCH (20:49)
[2020-09-08] VITALS (7 sets, daily range): BP systolic 95–113; BP diastolic 44–65
[2020-09-08] MEDS: CEFTAROLINE IV SCH ×2 (01:48→13:11)
[2020-09-08] MEDS: NS IV SCH ×2 (01:48→13:11)
[2020-09-08] MEDS: NovoLOG Insulin Flexpen SUBQ SCH ×4 (06:30→21:00)
--- NOTE | 2020-09-08 06:44 | Hematology/Onc Progress Note ---
Assessment/Plan Assessment/Plan Assessment and Recs: # Anemia of chronic disease due to underlying chronic medical issues, multifactorial v Gi bleed --> Anemia workup has been ordered, rule out gi bleed --> No evidence of hemolysis is noted, peripheral smear has been reviewed. --> Hgb goal >7. Transfuse prn. --> EPOGEN AND IV IRON STARTED, CONTINUE --> Medications have been reviewed --> hgb 7.7-->8-->8.4-->8 --> egd w/ colo 01/15/20 Gastritis, status post biopsy. Total of 11 polyps removed, Internal hemorrhoids. # Thromocytopenia likely related to infection v reactive process --> hep and hiv are neg --> imaging abd has been reviewed --> peripheral smear noted --> plt 75 # Coagulation defect, multifactorial usually related to poor PO intake versus medications, versus hepatitis v cirrhosis --> administer Vitamin K if patient is bleeding or FFP if the INR is >10 --> hold off on ffp unless active procedure/bleeding, first begin with vit K 10 --> mixing study as needed # Renal failure (ARF), acute on chronic --> ivf as per renal --> renal us reviewed --> improved --> HD as per renal # Hypoglycemia -> endo eval prn # Pleural effusion --> diuresis as needed --> monitor ivf --> HD # Hyperkalemia # Obesity # Dvt ppx heparin sq The timing of this note does not necessarily reflect the time of the patient was seen. Greatly appreciate consultation. Subjective Allergies: Coded Allergies: No Known Allergies (Unverified , 10/10/19) Subjective 09/08 labs reviewed, hd as per renal, fluid overload improved, labs noted, with dropping plt Objective Objective Current Medications Medications (Trade) Dose Ordered Sig/Braeden Route PRN Reason Start Time Stop Time Status Last Admin Dose Admin Acetaminophen (Tylenol) 650 mg Q4H PRN ORAL FEVER 08/30/20 23:45 09/29/20 23:44 Albuterol/ Ipratropium (Albuterol/ Ipratropium) 3 ml Q4H PRN HHN Shortness of Breath 09/07/20 09:00 09/12/20 08:59 Allopurinol (allopurinoL) 300 mg DAILY ORAL 08/31/20 09:00 09/30/20 08:59 09/07/20 09:30 Ceftaroline Fosamil 300 mg/ Sodium Chloride 55 ml @ 55 mls/hr Q12HR@0200,1400 IV 09/08/20 02:00 09/15/20 01:59 09/08/20 01:48 Chlorhexidine Gluconate (Josiane-Hex 2%) 1 applic DAILY@2000 TOPIC 09/06/20 20:00 12/05/20 19:59 09/07/20 20:49 Dextrose (Dextrose 50%) 25 ml Q30M PRN IV Hypoglycemia 08/30/20 23:45 11/28/20 23:44 Dextrose (Dextrose 50%) 50 ml Q30M PRN IV Hypoglycemia 08/30/20 23:45 11/28/20 23:44 Epoetin Shlomo (Epoetin Shlomo(ESRD on dialysis)) 10,000 unit TUE-TUE-TUE SUBQ 09/08/20 21:00 12/07/20 20:59 Folic Acid (Folate) 3 mg DAILY ORAL 09/02/20 09:00 10/02/20 08:59 09/07/20 09:30 Gabapentin (Neurontin) 300 mg DAILY ORAL 08/31/20 09:00 09/30/20 08:59 09/07/20 09:30 Heparin Sodium (Porcine) (Heparin 5000 units/ml) 5,000 units EVERY 12 HOURS SUBQ 08/31/20 09:00 10/15/20 08:59 09/06/20 00:16 Indomethacin (Indocin) 25 mg THREE TIMES A DAY ORAL 09/04/20 13:00 10/04/20 12:59 09/07/20 09:30 Insulin Aspart (NovoLOG) BEFORE MEALS AND HS SUBQ 08/31/20 06:30 11/29/20 06:29 09/04/20 21:17 Levofloxacin 100 ml @ 100 mls/hr Q48H IVPB 09/04/20 18:00 09/11/20 17:59 09/06/20 17:26 Levothyroxine Sodium (Synthroid) 100 mcg DAILY@0630 ORAL 09/02/20 06:30 10/02/20 06:29 09/08/20 06:03 Metoclopramide HCl (Reglan) 5 mg THREE TIMES A DAY ORAL 11/8/20 13:00 09/30/20 12:59 09/07/20 09:30 Morphine Sulfate (Morphine Sulfate) 2 mg Q4H PRN IVP For Pain 09/07/20 08:30 09/14/20 08:29 Ondansetron HCl (Zofran) 4 mg Q6H PRN IVP Nausea & Vomiting 08/30/20 23:45 09/29/20 23:44 Pantoprazole (Protonix) 40 mg EVERY 12 HOURS ORAL 08/31/20 21:00 09/30/20 20:59 09/07/20 20:49 Polyethylene Glycol (Miralax) 17 gm DAILYPRN PRN ORAL Constipation 08/30/20 23:45 09/29/20 23:44 Promethazine HCl/ Codeine (Phenergan with Codeine) 5 ml Q6H PRN ORAL cough 08/30/20 23:45 09/29/20 23:44 Last 24 Hour Vital Signs Date Time Temp Pulse Resp B/P (MAP) Pulse Ox O2 Delivery O2 Flow Rate FiO2 09/08/20 04:00 98.1 63 17 100/50 (67) 97 09/08/20 04:00 71 09/08/20 00:00 65 09/08/20 00:00 97.1 65 17 101/65 (77) 96 09/07/20 21:00 Nasal Cannula 2.0 Nasal Cannula 2.0 09/07/20 20:16 68 18 97 Nasal Cannula 2.0 28 09/07/20 20:16 97 Nasal Cannula 2.0 28 09/07/20 20:00 97.2 65 18 114/64 (81) 95 09/07/20 20:00 64 09/07/20 16:00 98.7 71 18 145/80 (101) 97 09/07/20 16:00 65 09/07/20 12:00 64 09/07/20 12:00 96.7 59 19 140/71 (94) 98 09/07/20 09:00 Nasal Cannula 2.0 09/07/20 08:00 63 09/07/20 08:00 98.7 61 19 141/67 (91) 97 09/07/20 07:07 72 18 97 Nasal Cannula 2.0 28 09/07/20 07:07 97 Nasal Cannula 2.0 28 09/07/20 04:00 62 09/07/20 04:00 96.1 62 16 129/60 (83) 98 09/07/20 00:00 65 09/07/20 00:00 97.9 67 17 100/49 (66) 95 09/06/20 21:00 Nasal Cannula 2.0 Nasal Cannula 2.0 09/06/20 20:22 69 18 96 Nasal Cannula 2.0 28 09/06/20 20:22 96 Nasal Cannula 2.0 28 09/06/20 20:00 69 09/06/20 20:00 97.0 68 18 105/53 (70) 94 09/06/20 16:00 97.5 62 18 100/51 (67) 96 09/06/20 16:00 63 09/06/20 12:00 96.9 70 20 100/49 (66) 97 09/06/20 12:00 69 09/06/20 09:00 Nasal Cannula 2.0 Nasal Cannula 2.0 09/06/20 08:15 97 Nasal Cannula 2.0 28 09/06/20 08:14 77 18 97 Nasal Cannula 2.0 28 09/06/20 08:00 67 09/06/20 08:00 96.4 68 18 101/59 (73) 98 Intake and Output 09/07/20 09/08/20 19:00 07:00 Intake Total 130 ml Output Total 100 ml 300 ml Balance -100 ml -170 ml Intake Oral 130 ml Output Urine Total 100 ml 300 ml # Voids 3 Labs Test 09/05/20 11:36 09/05/20 15:59 09/05/20 22:07 09/06/20 05:50 POC Whole Blood Glucose 108 MG/DL (74-106) 115 MG/DL (74-106) 114 MG/DL (74-106) White Blood Count 7.6 K/UL (4.8-10.8) Red Blood Count 2.81 M/UL (4.20-5.40) Hemoglobin 8.0 G/DL (12.0-16.0) Hematocrit 26.8 % (37.0-47.0) Mean Corpuscular Volume 95 FL (80-99) Mean Corpuscular Hemoglobin 28.5 PG (27.0-31.0) Mean Corpuscular Hemoglobin Concent 29.9 G/DL (32.0-36.0) Red Cell Distribution Width 16.9 % (11.6-14.8) Platelet Count 96 K/UL (150-450) Mean Platelet Volume 7.9 FL (6.5-10.1) Neutrophils (%) (Auto) % (45.0-75.0) Lymphocytes (%) (Auto) % (20.0-45.0) Monocytes (%) (Auto) % (1.0-10.0) Eosinophils (%) (Auto) % (0.0-3.0) Basophils (%) (Auto) % (0.0-2.0) Differential Total Cells Counted 100 Neutrophils % (Manual) 69 % (45-75) Lymphocytes % (Manual) 13 % (20-45) Monocytes % (Manual) 13 % (1-10) Eosinophils % (Manual) 2 % (0-3) Basophils % (Manual) 0 % (0-2) Band Neutrophils 3 % (0-8) Platelet Estimate Decreased Platelet Morphology Normal Hypochromasia 2+ Anisocytosis 1+ Sodium Level 136 MMOL/L (136-145) Potassium Level 3.6 MMOL/L (3.5-5.1) Chloride Level 100 MMOL/L (98-107) Carbon Dioxide Level 26 MMOL/L (21-32) Anion Gap 10 mmol/L (5-15) Blood Urea Nitrogen 73 mg/dL (7-18) Creatinine 3.8 MG/DL (0.55-1.30) Estimat Glomerular Filtration Rate 11.8 mL/min (>60) Glucose Level 99 MG/DL (74-106) Calcium Level 8.2 MG/DL (8.5-10.1) Phosphorus Level 5.0 MG/DL (2.5-4.9) Magnesium Level 2.4 MG/DL (1.8-2.4) Total Bilirubin 0.8 MG/DL (0.2-1.0) Aspartate Amino Transf (AST/SGOT) 17 U/L (15-37) Alanine Aminotransferase (ALT/SGPT) 13 U/L (12-78) Alkaline Phosphatase 132 U/L (46-116) Pro-B-Type Natriuretic Peptide 02129 pg/mL (0-125) Total Protein 7.0 G/DL (6.4-8.2) Albumin 2.8 G/DL (3.4-5.0) Globulin 4.2 g/dL Albumin/Globulin Ratio 0.7 (1.0-2.7) Test 09/06/20 05:58 09/06/20 12:12 09/06/20 16:38 09/06/20 21:50 POC Whole Blood Glucose 102 MG/DL (74-106) 90 MG/DL (74-106) 87 MG/DL (74-106) 91 MG/DL (74-106) Test 09/07/20 06:15 09/07/20 07:25 09/07/20 12:05 09/07/20 16:59 POC Whole Blood Glucose 87 MG/DL (74-106) 81 MG/DL (74-106) White Blood Count 7.1 K/UL (4.8-10.8) Red Blood Count 2.78 M/UL (4.20-5.40) Hemoglobin 8.0 G/DL (12.0-16.0) Hematocrit 26.7 % (37.0-47.0) Mean Corpuscular Volume 96 FL (80-99) Mean Corpuscular Hemoglobin 28.7 PG (27.0-31.0) Mean Corpuscular Hemoglobin Concent 29.9 G/DL (32.0-36.0) Red Cell Distribution Width 16.6 % (11.6-14.8) Platelet Count 75 K/UL (150-450) Mean Platelet Volume 8.8 FL (6.5-10.1) Neutrophils (%) (Auto) % (45.0-75.0) Lymphocytes (%) (Auto) % (20.0-45.0) Monocytes (%) (Auto) % (1.0-10.0) Eosinophils (%) (Auto) % (0.0-3.0) Basophils (%) (Auto) % (0.0-2.0) Differential Total Cells Counted 100 Neutrophils % (Manual) 75 % (45-75) Lymphocytes % (Manual) 15 % (20-45) Monocytes % (Manual) 9 % (1-10) Eosinophils % (Manual) 1 % (0-3) Basophils % (Manual) 0 % (0-2) Band Neutrophils 0 % (0-8) Platelet Estimate Decreased Platelet Morphology Normal Hypochromasia 1+ Anisocytosis 1+ Sodium Level 136 MMOL/L (136-145) Potassium Level 3.8 MMOL/L (3.5-5.1) Chloride Level 100 MMOL/L (98-107) Carbon Dioxide Level 26 MMOL/L (21-32) Anion Gap 11 mmol/L (5-15) Blood Urea Nitrogen 59 mg/dL (7-18) Creatinine 3.5 MG/DL (0.55-1.30) Estimat Glomerular Filtration Rate 13.0 mL/min (>60) Glucose Level 74 MG/DL (74-106) Uric Acid 5.2 MG/DL (2.6-7.2) Calcium Level 8.0 MG/DL (8.5-10.1) Phosphorus Level 4.7 MG/DL (2.5-4.9) Magnesium Level 2.3 MG/DL (1.8-2.4) Total Bilirubin 0.8 MG/DL (0.2-1.0) Aspartate Amino Transf (AST/SGOT) 15 U/L (15-37) Alanine Aminotransferase (ALT/SGPT) 10 U/L (12-78) Alkaline Phosphatase 114 U/L (46-116) C-Reactive Protein, Quantitative 10.7 mg/dL (0.00-0.90) Pro-B-Type Natriuretic Peptide 60742 pg/mL (0-125) Total Protein 6.6 G/DL (6.4-8.2) Albumin 2.7 G/DL (3.4-5.0) Globulin 3.9 g/dL Albumin/Globulin Ratio 0.7 (1.0-2.7) Test 09/07/20 17:22 09/07/20 20:35 09/07/20 21:34 09/08/20 05:46 POC Whole Blood Glucose 123 MG/DL (74-106) 79 MG/DL (74-106) 98 MG/DL (74-106) 75 MG/DL (74-106) Height (Feet): 5 Height (Inches): 10.00 Weight (Pounds): 218 General Appearance: lethargic Neck: normal alignment Cardiovascular: regular rhythm Respiratory/Chest: no respiratory distress Abdomen: abnormal bowel sounds Neurologic: no motor/sensory deficits Skin: normal pigmentation Objective ++Derick Hwang MD Sep 08, 2020 06:44
[2020-09-08 07:05] LABS: HEMATOCRIT 26.6 % (37.0-47.0); MEAN CORPUSCULAR VOLUME 97 FL (80-99); PLATELET COUNT 85 K/UL (150-450); RED BLOOD COUNT 2.75 M/UL (4.20-5.40); RED CELL DISTRIBUTION WIDTH 17.2 % (11.6-14.8); WHITE BLOOD COUNT 7.6 K/UL (4.8-10.8)
[2020-09-08 07:40] LABS: ALBUMIN 2.5 G/DL (3.4-5.0); ALBUMIN/GLOBULIN RATIO 0.6 (1.0-2.7); ALKALINE PHOSPHATASE 117 U/L (46-116); ANION GAP 10 mmol/L (5-15); ASPARTATE AMINO TRANSFERASE 23 U/L (15-37); BILIRUBIN,TOTAL 0.8 MG/DL (0.2-1.0); BLOOD UREA NITROGEN 68 mg/dL (7-18); CALCIUM 7.8 MG/DL (8.5-10.1); CARBON DIOXIDE 26 MMOL/L (21-32); CHLORIDE 100 MMOL/L (98-107); CREATININE 4.2 MG/DL (0.55-1.30); PHOSPHORUS 5.8 MG/DL (2.5-4.9); SODIUM 136 MMOL/L (136-145)
--- NOTE | 2020-09-08 07:42 | Infectious Diseases Prog Note ---
Assessment/Plan 70yo F with: Severe Sepsis Pneumonia Acute hypoxic resp failure- on 2L NC R pleural effusion, transudate -09/03 SP Thoracentesis: Successful ultrasound-guided thoracentesis, yielding 680 milliliters of clear yellow fluid; cx NTD -fluid prot 1.4, glucose 198 -09/01 Chest US: Positive for right pleural effusion Incidental finding of ascites, also previously reporte -08/30 CXR: There is again patchy ill-defined airspace opacities at the right greater than left base with some consolidated appearance again seen on the right. There is now patchy ill-defined opacity at the right upper lung. A small right pleural effusion is suggested. The patient is rotated to the right. Status post median sternotomy again noted. -08/30 & rapid covid PCR neg x2 -08/30 Bcx NTD Afebrile Leukocytosis, SP -09/02 Bcx NTD -08/31 u/a no pyuria R arm and R leg cellulitis; improving Recent hx of COVID19- pt clarified initial diagnosis was 2 months ago and not 08/25 as per documentation on EMR. VENANCIO on CKD -Renal US: Ascites. Bilateral pleural effusions. Complex right renal cysts of uncertain etiology. This complex cyst is unchanged from the study of 01/12/2020. Mildly atrophic right kidney.Magnetic resonance imaging of the abdomen with gadolinium administration is advised for further evaluation of complex right renal cyst. PMH: HTN dCHF pHTN Ascites Chronic LE edema DM2 c/w neuropathy Iron def anemia Plan: -Continue empiric ceftaroline and levofloxacin #9 (abx d #08/02) - today is last day of abx, will stop after doses today, from ID standpoint no indication for PICC -08/31 SP Ceftriaxone #2, Azithromcyin #2 -f/u cx -Monitor CBC/CMP, temperatures -aspiration precautions D/w RN Thank you for consulting [facility]. Will continue to follow along with you. Subjective Allergies: Coded Allergies: No Known Allergies (Unverified , 10/10/19) AF WBC 7.6 NAD on 2LNC Getting HD Wants to go home Objective Last 24 Hour Vital Signs Date Time Temp Pulse Resp B/P (MAP) Pulse Ox O2 Delivery O2 Flow Rate FiO2 09/08/20 04:00 98.1 63 17 100/50 (67) 97 09/08/20 04:00 71 09/08/20 00:00 65 09/08/20 00:00 97.1 65 17 101/65 (77) 96 09/07/20 21:00 Nasal Cannula 2.0 Nasal Cannula 2.0 09/07/20 20:16 68 18 97 Nasal Cannula 2.0 28 09/07/20 20:16 97 Nasal Cannula 2.0 28 09/07/20 20:00 97.2 65 18 114/64 (81) 95 09/07/20 20:00 64 09/07/20 16:00 98.7 71 18 145/80 (101) 97 09/07/20 16:00 65 09/07/20 12:00 64 09/07/20 12:00 96.7 59 19 140/71 (94) 98 09/07/20 09:00 Nasal Cannula 2.0 09/07/20 08:00 63 09/07/20 08:00 98.7 61 19 141/67 (91) 97 Height (Feet): 5 Height (Inches): 10.00 Weight (Pounds): 218 Gen: NAD in bed HEENT: NCAT, EOMI, PERRL CV: RRR Pulm: CTAB Abd: Soft, NTND Ext: No c/c/e Neuro: Awake, interactive in Persian Laboratory Tests Test 09/07/20 12:05 09/07/20 16:59 09/07/20 17:22 09/07/20 20:35 POC Whole Blood Glucose 81 MG/DL (74-106) Pending 123 MG/DL (74-106) H 79 MG/DL (74-106) Test 09/07/20 21:34 09/08/20 05:46 09/08/20 05:54 POC Whole Blood Glucose 98 MG/DL (74-106) 75 MG/DL (74-106) White Blood Count 7.6 K/UL (4.8-10.8) Red Blood Count 2.75 M/UL (4.20-5.40) L Hemoglobin 8.0 G/DL (12.0-16.0) L Hematocrit 26.6 % (37.0-47.0) L Mean Corpuscular Volume 97 FL (80-99) Mean Corpuscular Hemoglobin 29.0 PG (27.0-31.0) Mean Corpuscular Hemoglobin Concent 30.1 G/DL (32.0-36.0) L Red Cell Distribution Width 17.2 % (11.6-14.8) H Platelet Count 85 K/UL (150-450) L Mean Platelet Volume 8.8 FL (6.5-10.1) Neutrophils (%) (Auto) % (45.0-75.0) Lymphocytes (%) (Auto) % (20.0-45.0) Monocytes (%) (Auto) % (1.0-10.0) Eosinophils (%) (Auto) % (0.0-3.0) Basophils (%) (Auto) % (0.0-2.0) Neutrophils % (Manual) Pending Lymphocytes % (Manual) Pending Platelet Estimate Pending Platelet Morphology Pending Sodium Level Pending Potassium Level Pending Chloride Level Pending Carbon Dioxide Level Pending Blood Urea Nitrogen Pending Creatinine Pending Estimat Glomerular Filtration Rate Pending Glucose Level Pending Uric Acid Pending Calcium Level Pending Phosphorus Level Pending Magnesium Level Pending Total Bilirubin Pending Aspartate Amino Transf (AST/SGOT) Pending Alanine Aminotransferase (ALT/SGPT) Pending Alkaline Phosphatase Pending C-Reactive Protein, Quantitative Pending Pro-B-Type Natriuretic Peptide Pending Total Protein Pending Albumin Pending Globulin Pending Current Medications Medications (Trade) Dose Ordered Sig/Braeden Route PRN Reason Start Time Stop Time Status Last Admin Dose Admin Acetaminophen (Tylenol) 650 mg Q4H PRN ORAL FEVER 08/30/20 23:45 09/29/20 23:44 Albuterol/ Ipratropium (Albuterol/ Ipratropium) 3 ml Q4H PRN HHN Shortness of Breath 09/07/20 09:00 09/12/20 08:59 Allopurinol (allopurinoL) 300 mg DAILY ORAL 08/31/20 09:00 09/30/20 08:59 09/07/20 09:30 Ceftaroline Fosamil 300 mg/ Sodium Chloride 55 ml @ 55 mls/hr Q12HR@0200,1400 IV 09/08/20 02:00 09/15/20 01:59 09/08/20 01:48 Chlorhexidine Gluconate (Josiane-Hex 2%) 1 applic DAILY@2000 TOPIC 09/06/20 20:00 12/05/20 19:59 09/07/20 20:49 Dextrose (Dextrose 50%) 25 ml Q30M PRN IV Hypoglycemia 08/30/20 23:45 11/28/20 23:44 Dextrose (Dextrose 50%) 50 ml Q30M PRN IV Hypoglycemia 08/30/20 23:45 11/28/20 23:44 Epoetin Shlomo (Epoetin Shlomo(ESRD on dialysis)) 10,000 unit TUE- SUBQ 09/08/20 21:00 12/07/20 20:59 Folic Acid (Folate) 3 mg DAILY ORAL 09/02/20 09:00 10/02/20 08:59 09/07/20 09:30 Gabapentin (Neurontin) 300 mg DAILY ORAL 08/31/20 09:00 09/30/20 08:59 09/07/20 09:30 Heparin Sodium (Porcine) (Heparin 5000 units/ml) 5,000 units EVERY 12 HOURS SUBQ 08/31/20 09:00 10/15/20 08:59 09/06/20 00:16 Indomethacin (Indocin) 25 mg THREE TIMES A DAY ORAL 09/04/20 13:00 10/04/20 12:59 09/07/20 09:30 Insulin Aspart (NovoLOG) BEFORE MEALS AND HS SUBQ 08/31/20 06:30 11/29/20 06:29 09/04/20 21:17 Iron Sucrose 100 mg/Sodium Chloride 60 ml @ 240 mls/hr BEDTIME IVPB 09/08/20 21:00 09/12/20 21:14 Levofloxacin 100 ml @ 100 mls/hr Q48H IVPB 09/04/20 18:00 09/11/20 17:59 09/06/20 17:26 Levothyroxine Sodium (Synthroid) 100 mcg DAILY@0630 ORAL 09/02/20 06:30 10/02/20 06:29 09/08/20 06:03 Metoclopramide HCl (Reglan) 5 mg THREE TIMES A DAY ORAL 08/31/20 13:00 09/30/20 12:59 09/07/20 09:30 Morphine Sulfate (Morphine Sulfate) 2 mg Q4H PRN IVP For Pain 09/07/20 08:30 09/14/20 08:29 Ondansetron HCl (Zofran) 4 mg Q6H PRN IVP Nausea & Vomiting 08/30/20 23:45 09/29/20 23:44 Pantoprazole (Protonix) 40 mg EVERY 12 HOURS ORAL 08/31/20 21:00 09/30/20 20:59 09/07/20 20:49 Polyethylene Glycol (Miralax) 17 gm DAILYPRN PRN ORAL Constipation 08/30/20 23:45 09/29/20 23:44 Promethazine HCl/ Codeine (Phenergan with Codeine) 5 ml Q6H PRN ORAL cough 08/30/20 23:45 09/29/20 23:44 Nadia Calvin M.D. Sep 08, 2020 07:42
[2020-09-08 07:49] LABS: ALANINE AMINOTRANSFERASE < 6 U/L (12-78)
[2020-09-08] MEDS: Heparin 5000 units/ml inj SUBQ SCH ×2 (08:23→21:00)
[2020-09-08] MEDS: Indomethacin 25mg cap ORAL SCH ×3 (08:29→17:23)
--- NOTE | 2020-09-08 09:19 | Nephrology Progress Note ---
Assessment/Plan Problem List: (1) Renal failure (ARF), acute on chronic (2) Hyperkalemia (3) Hypothyroidism (4) Acute on chronic diastolic (congestive) heart failure (5) Diabetic nephropathy (6) Pneumonia Assessment: Leukocytosis, abnormal chest x-ray (7) Anemia Assessment 1) Renal failure (ARF), acute on chronic (2) Diabetes mellitus (3) Hypoglycemia (4) Hyperkalemia (5) Diabetic nephropathy (6) H/o Pleural effusion (7) Morbid obesity (8) Low Iron Anemia (9) HypoThyroidism Plan September 08: Patient due for dialysis and ultrafiltration today. Labs reviewed. PhosLo given. Continue as is. September 07: Patient was dialyzed 2 days in a row. Ultra filtrated 3 L a day. Patient continues to be edematous however much less. Will dialyze again tomorrow with ultrafiltration. Will monitor renal parameters. September 06: Patient was dialyzed yesterday. Ultrafiltration was done. Patient remains edematous. Will do another dialysis and aim 3 L fluid removal as tolerates. Discontinue IV Lasix and oral hydralazine. Will adjust blood pressure medication as needed. Discussed with RN, antibiotics intravenously if possible should be changed to oral since there is no IV line available. 1 dose of Venofer 200 mg ordered to be given during dialysis. Subcutaneous Epogen ordered for anemia. September 05: New 24-hour urine suggestive of creatinine clearance of 3. Patient due for insertion of dialysis catheter. Hemodialysis and ultrafiltration after insertion of catheter. September 04: New 24-hour urine test is in process. Discussed with RN. Patient was short of breath overnight. ABG ordered. 1 dose of Zaroxolyn ordered. Patient has fluid overload, and need ultrafiltration. Blood cultures negative. Leukocytosis resolved. Will order placement of permacath and dialysis and ultrafiltration. September 03: The 24-hour urine results appears to be an error in view of total volume compared to intake and output records. Today's labs reviewed. Serum creatinine higher. Talk to the nursing charge of the floor and will order another 24-hour urine collection. Meanwhile continue per ID treatment for UTI and leukocytosis. Dexamethasone on the medication list was questioned. Patient may require dialysis if continues to have worsening renal parameters. September 02: Consent for dialysis catheter is taken. Catheter placement deferred due to leukocytosis. Surveillance blood culture ordered. Urine culture ordered. Blood pressure medication adjusted. 24-hour urine for creatinine clearance and total protein pending. Previously: Chan Cath 24 H CrCl and total protein ordered Off IV fluids, on IV Lasix Adjust BP meds Previous 2D echocardiogram ejection fraction is reported to 50% Previous Kidney ultrasound noted. Current kidney ultrasound results below Anemia work-up As needed Kayexalate for high potassium Keep blood pressure and blood sugar in check Monitor renal parameters Requires HD treatment [facility] IMPRESSION: 1. Ascites. 2. Bilateral pleural effusions. 3. Complex right renal cysts of uncertain etiology. This complex cyst is unchanged from the study of 01/12/2020. 4. Mildly atrophic right kidney. 5. Magnetic resonance imaging of the abdomen with gadolinium administration is advised for further evaluation of complex right renal cyst. Subjective ROS Limited/Unobtainable: No Constitutional: Reports: malaise, weakness Objective Objective Last 24 Hour Vital Signs Date Time Temp Pulse Resp B/P (MAP) Pulse Ox O2 Delivery O2 Flow Rate FiO2 09/08/20 09:00 Nasal Cannula 2.0 Nasal Cannula 2.0 09/08/20 07:59 97.5 62 18 113/49 (70) 96 09/08/20 04:00 98.1 63 17 100/50 (67) 97 09/08/20 04:00 71 09/08/20 00:00 65 09/08/20 00:00 97.1 65 17 101/65 (77) 96 09/07/20 21:00 Nasal Cannula 2.0 Nasal Cannula 2.0 09/07/20 20:16 68 18 97 Nasal Cannula 2.0 28 09/07/20 20:16 97 Nasal Cannula 2.0 28 09/07/20 20:00 97.2 65 18 114/64 (81) 95 09/07/20 20:00 64 09/07/20 16:00 98.7 71 18 145/80 (101) 97 09/07/20 16:00 65 09/07/20 12:00 64 09/07/20 12:00 96.7 59 19 140/71 (94) 98 Intake and Output 09/07/20 09/08/20 19:00 07:00 Intake Total 130 ml Output Total 100 ml 300 ml Balance -100 ml -170 ml Intake Oral 130 ml Output Urine Total 100 ml 300 ml # Voids 3 Laboratory Tests 09/07/20 12:05: POC Whole Blood Glucose 81 09/07/20 16:59: POC Whole Blood Glucose [Pending] 09/07/20 17:22: POC Whole Blood Glucose 123H 09/07/20 20:35: POC Whole Blood Glucose 79 09/07/20 21:34: POC Whole Blood Glucose 98 09/08/20 05:46: POC Whole Blood Glucose 75 09/08/20 05:54: White Blood Count 7.6, Red Blood Count 2.75L, Hemoglobin 8.0L, Hematocrit 26.6L, Mean Corpuscular Volume 97, Mean Corpuscular Hemoglobin 29.0, Mean Corpuscular Hemoglobin Concent 30.1L, Red Cell Distribution Width 17.2H, Platelet Count 85L, Mean Platelet Volume 8.8, Neutrophils (%) (Auto) , Lymphocytes (%) (Auto) , Monocytes (%) (Auto) , Eosinophils (%) (Auto) , Basophils (%) (Auto) , Differential Total Cells Counted 100, Neutrophils % (Manual) 84H, Lymphocytes % (Manual) 7L, Monocytes % (Manual) 9, Eosinophils % (Manual) 0, Basophils % (Manual) 0, Band Neutrophils 0, Platelet Estimate DecreasedL, Platelet Morphology Normal, Hypochromasia 1+, Anisocytosis 1+, Sodium Level 136, Potassium Level 4.0, Chloride Level 100, Carbon Dioxide Level 26, Anion Gap 10, Blood Urea Nitrogen 68H, Creatinine 4.2H, Estimat Glomerular Filtration Rate 10.5, Glucose Level 73L, Uric Acid 5.4, Calcium Level 7.8L, Phosphorus Level 5.8H, Magnesium Level 2.3, Total Bilirubin 0.8, Aspartate Amino Transf (AST/SGOT) 23, Alanine Aminotransferase (ALT/SGPT) < 6L, Alkaline Phosphatase 117H, C-Reactive Protein, Quantitative 11.8H, Pro-B-Type Natriuretic Peptide 24684U, Total Protein 6.5, Albumin 2.5L, Globulin 4.0, Albumin/Globulin Ratio 0.6L Height (Feet): 5 Height (Inches): 10.00 Weight (Pounds): 218 General Appearance: no apparent distress Cardiovascular: normal rate Respiratory/Chest: decreased breath sounds Abdomen: distended Jay Severino MD Sep 08, 2020 09:19
--- NOTE | 2020-09-08 10:28 | General Progress Note ---
Subjective Constitutional: Reports: weakness Respiratory: Reports: shortness of breath Allergies: Coded Allergies: No Known Allergies (Unverified , 10/10/19) All Systems: reviewed and negative except above Subjective o2nc calm Objective Last 24 Hour Vital Signs Date Time Temp Pulse Resp B/P (MAP) Pulse Ox O2 Delivery O2 Flow Rate FiO2 09/08/20 09:00 Nasal Cannula 2.0 Nasal Cannula 2.0 09/08/20 08:00 60 09/08/20 07:59 97.5 62 18 113/49 (70) 96 09/08/20 04:00 98.1 63 17 100/50 (67) 97 09/08/20 04:00 71 09/08/20 00:00 65 09/08/20 00:00 97.1 65 17 101/65 (77) 96 09/07/20 21:00 Nasal Cannula 2.0 Nasal Cannula 2.0 09/07/20 20:16 68 18 97 Nasal Cannula 2.0 28 09/07/20 20:16 97 Nasal Cannula 2.0 28 09/07/20 20:00 97.2 65 18 114/64 (81) 95 09/07/20 20:00 64 09/07/20 16:00 98.7 71 18 145/80 (101) 97 09/07/20 16:00 65 09/07/20 12:00 64 09/07/20 12:00 96.7 59 19 140/71 (94) 98 Intake and Output 09/07/20 09/08/20 19:00 07:00 Intake Total 130 ml Output Total 100 ml 300 ml Balance -100 ml -170 ml Intake Oral 130 ml Output Urine Total 100 ml 300 ml # Voids 3 Laboratory Tests 09/07/20 12:05: POC Whole Blood Glucose 81 09/07/20 16:59: POC Whole Blood Glucose [Pending] 09/07/20 17:22: POC Whole Blood Glucose 123H 09/07/20 20:35: POC Whole Blood Glucose 79 09/07/20 21:34: POC Whole Blood Glucose 98 09/08/20 05:46: POC Whole Blood Glucose 75 09/08/20 05:54: White Blood Count 7.6, Red Blood Count 2.75L, Hemoglobin 8.0L, Hematocrit 26.6L, Mean Corpuscular Volume 97, Mean Corpuscular Hemoglobin 29.0, Mean Corpuscular Hemoglobin Concent 30.1L, Red Cell Distribution Width 17.2H, Platelet Count 85L, Mean Platelet Volume 8.8, Neutrophils (%) (Auto) , Lymphocytes (%) (Auto) , Monocytes (%) (Auto) , Eosinophils (%) (Auto) , Basophils (%) (Auto) , Differential Total Cells Counted 100, Neutrophils % (Manual) 84H, Lymphocytes % (Manual) 7L, Monocytes % (Manual) 9, Eosinophils % (Manual) 0, Basophils % (Manual) 0, Band Neutrophils 0, Platelet Estimate DecreasedL, Platelet Morphology Normal, Hypochromasia 1+, Anisocytosis 1+, Sodium Level 136, Potassium Level 4.0, Chloride Level 100, Carbon Dioxide Level 26, Anion Gap 10, Blood Urea Nitrogen 68H, Creatinine 4.2H, Estimat Glomerular Filtration Rate 10.5, Glucose Level 73L, Uric Acid 5.4, Calcium Level 7.8L, Phosphorus Level 5.8H, Magnesium Level 2.3, Total Bilirubin 0.8, Aspartate Amino Transf (AST/SGOT) 23, Alanine Aminotransferase (ALT/SGPT) < 6L, Alkaline Phosphatase 117H, C-Reactive Protein, Quantitative 11.8H, Pro-B-Type Natriuretic Peptide 71685Q, Total Protein 6.5, Albumin 2.5L, Globulin 4.0, Albumin/Globulin Ratio 0.6L Height (Feet): 5 Height (Inches): 10.00 Weight (Pounds): 218 General Appearance: lethargic EENT: normal ENT inspection Neck: normal alignment Cardiovascular: normal peripheral pulses, normal rate, regular rhythm Respiratory/Chest: chest wall non-tender, lungs clear, normal breath sounds Abdomen: normal bowel sounds, non tender, soft Extremities: normal inspection Edema: no edema noted Arm (L), no edema noted Arm (R), no edema noted Leg (L), no edema noted Leg (R), no edema noted Pedal (L), no edema noted Pedal (R), no edema noted Generalized Neurologic: motor weakness Skin: normal pigmentation, warm/dry Assessment/Plan Problem List: (1) UTI (urinary tract infection) ICD Codes: N39.0 - Urinary tract infection, site not specified SNOMED: 28714034 (2) Acute respiratory failure ICD Codes: J96.00 - Acute respiratory failure, unspecified whether with hypoxia or hypercapnia SNOMED: 61452258 (3) History of hypertension ICD Codes: Z86.79 - Personal history of other diseases of the circulatory system SNOMED: 402076318 (4) Diabetes mellitus ICD Codes: E11.9 - Type 2 diabetes mellitus without complications SNOMED: 52281164 (5) Renal failure (ARF), acute on chronic ICD Codes: N17.9 - Acute kidney failure, unspecified; N18.9 - Chronic kidney disease, unspecified SNOMED: 661766543 Status: stable, progressing Assessment/Plan: o2 pulm tx abx pt diet cbc bmp am aru eval dc if clear Dyllan King DO Sep 08, 2020 10:28
--- NOTE | 2020-09-08 11:05 | Cardiac Electrophysiology PN ---
Assessment/Plan Assessment/Plan 1. Volume overload due to renal failure as creatinine is 3.5. Echocardiogram showed ejection fraction of 50%. Off Amlodipine. Started on HD after PermCath placement 09/05. 2. Left bundle-branch block. 3. Diastolic dysfunction. Ejection fraction of 50%. 4. Hyperkalemia. Got Kayexalate by Dr. Severino. 5. Diabetic nephropathy. 6. Renal failure. BUN/Cr 81/3.8 S/P permacath and dialysis 7. Hypothyroidism. 8. Iron-deficiency anemia. 9. Right pleural effusion. S/P 800cc Right thoracentesis 09/03/20 10. Abd pain. US pending DW RN Subjective Subjective S/P Right chest PermCath and HD on 09/05 and 09/06. Next HD today is pending No CP in SR. Abd US pending Objective Last 24 Hour Vital Signs Date Time Temp Pulse Resp B/P (MAP) Pulse Ox O2 Delivery O2 Flow Rate FiO2 09/08/20 09:00 Nasal Cannula 2.0 Nasal Cannula 2.0 09/08/20 08:00 60 09/08/20 07:59 97.5 62 18 113/49 (70) 96 09/08/20 04:00 98.1 63 17 100/50 (67) 97 09/08/20 04:00 71 09/08/20 00:00 65 09/08/20 00:00 97.1 65 17 101/65 (77) 96 09/07/20 21:00 Nasal Cannula 2.0 Nasal Cannula 2.0 09/07/20 20:16 68 18 97 Nasal Cannula 2.0 28 09/07/20 20:16 97 Nasal Cannula 2.0 28 09/07/20 20:00 97.2 65 18 114/64 (81) 95 09/07/20 20:00 64 09/07/20 16:00 98.7 71 18 145/80 (101) 97 09/07/20 16:00 65 09/07/20 12:00 64 09/07/20 12:00 96.7 59 19 140/71 (94) 98 Intake and Output 09/07/20 09/08/20 19:00 07:00 Intake Total 130 ml Output Total 100 ml 300 ml Balance -100 ml -170 ml Intake Oral 130 ml Output Urine Total 100 ml 300 ml # Voids 3 Laboratory Tests Test 09/07/20 12:05 09/07/20 16:59 09/07/20 17:22 09/07/20 20:35 POC Whole Blood Glucose 81 MG/DL (74-106) Pending 123 MG/DL (74-106) H 79 MG/DL (74-106) Test 09/07/20 21:34 09/08/20 05:46 09/08/20 05:54 POC Whole Blood Glucose 98 MG/DL (74-106) 75 MG/DL (74-106) White Blood Count 7.6 K/UL (4.8-10.8) Red Blood Count 2.75 M/UL (4.20-5.40) L Hemoglobin 8.0 G/DL (12.0-16.0) L Hematocrit 26.6 % (37.0-47.0) L Mean Corpuscular Volume 97 FL (80-99) Mean Corpuscular Hemoglobin 29.0 PG (27.0-31.0) Mean Corpuscular Hemoglobin Concent 30.1 G/DL (32.0-36.0) L Red Cell Distribution Width 17.2 % (11.6-14.8) H Platelet Count 85 K/UL (150-450) L Mean Platelet Volume 8.8 FL (6.5-10.1) Neutrophils (%) (Auto) % (45.0-75.0) Lymphocytes (%) (Auto) % (20.0-45.0) Monocytes (%) (Auto) % (1.0-10.0) Eosinophils (%) (Auto) % (0.0-3.0) Basophils (%) (Auto) % (0.0-2.0) Differential Total Cells Counted 100 Neutrophils % (Manual) 84 % (45-75) H Lymphocytes % (Manual) 7 % (20-45) L Monocytes % (Manual) 9 % (1-10) Eosinophils % (Manual) 0 % (0-3) Basophils % (Manual) 0 % (0-2) Band Neutrophils 0 % (0-8) Platelet Estimate Decreased L Platelet Morphology Normal Hypochromasia 1+ Anisocytosis 1+ Sodium Level 136 MMOL/L (136-145) Potassium Level 4.0 MMOL/L (3.5-5.1) Chloride Level 100 MMOL/L (98-107) Carbon Dioxide Level 26 MMOL/L (21-32) Anion Gap 10 mmol/L (5-15) Blood Urea Nitrogen 68 mg/dL (7-18) H Creatinine 4.2 MG/DL (0.55-1.30) H Estimat Glomerular Filtration Rate 10.5 mL/min (>60) Glucose Level 73 MG/DL (74-106) L Uric Acid 5.4 MG/DL (2.6-7.2) Calcium Level 7.8 MG/DL (8.5-10.1) L Phosphorus Level 5.8 MG/DL (2.5-4.9) H Magnesium Level 2.3 MG/DL (1.8-2.4) Total Bilirubin 0.8 MG/DL (0.2-1.0) Aspartate Amino Transf (AST/SGOT) 23 U/L (15-37) Alanine Aminotransferase (ALT/SGPT) < 6 U/L (12-78) L Alkaline Phosphatase 117 U/L (46-116) H C-Reactive Protein, Quantitative 11.8 mg/dL (0.00-0.90) H Pro-B-Type Natriuretic Peptide 12737 pg/mL (0-125) H Total Protein 6.5 G/DL (6.4-8.2) Albumin 2.5 G/DL (3.4-5.0) L Globulin 4.0 g/dL Albumin/Globulin Ratio 0.6 (1.0-2.7) L Objective HEAD AND NECK: No JVD. LUNGS: Coarse rhonchi, bibasilar rales.Right chest PermCath CARDIOVASCULAR: Regular S1 and S2 with no gallop. ABDOMEN: Soft. EXTREMITIES: Bilateral 2+ pitting edema and bandage on both legs Sina Paulson MD Sep 08, 2020 11:05
--- NOTE | 2020-09-08 16:39 | Diagnostic Imaging Report ---
ABDOMINAL ULTRASOUND - COMPLETE INDICATION: Elevated liver enzymes. TECHNIQUE: Multiplanar ultrasound examination of the abdomen with greyscale and doppler imaging. COMPARISON: Abdominal ultrasound dated 01/12/2020 FINDINGS: Liver: The liver is cirrhotic. No masses are sonographically identified. There is large volume ascites. Gallbladder: Gallbladder wall measures at the upper limits of normal. No stones are visualized. There is no sonographic Hill sign. Common bile duct: Normal in size. Pancreas: The visualized portion of pancreas is normal in echogenicity. There are no masses. Kidneys: Right kidney is atrophic. There is a right upper pole renal cyst. Left kidney is normal in size and echogenicity. Hyperechoic foci in the left renal hilum likely represent vascular calcification. Spleen: The spleen is normal in size and echogenicity. Aorta: Incompletely imaged. Additional findings: There are bilateral pleural effusions. IMPRESSION: 1. Cirrhosis with large volume ascites. 2. Atrophic right kidney. 3. Bilateral pleural effusions.
--- NOTE | 2020-09-08 18:44 | Surgery Progress Note ---
Surgery Progress Note Subjective Additional Comments iv functional labs noted no n/v comfortable Objective Last 24 Hour Vital Signs Date Time Temp Pulse Resp B/P (MAP) Pulse Ox O2 Delivery O2 Flow Rate FiO2 09/08/20 16:00 64 09/08/20 16:00 97.9 64 18 95/44 (61) 96 09/08/20 12:00 97.1 64 18 106/64 (78) 96 09/08/20 12:00 67 09/08/20 09:00 Nasal Cannula 2.0 Nasal Cannula 2.0 09/08/20 08:00 60 09/08/20 07:59 97.5 62 18 113/49 (70) 96 09/08/20 04:00 98.1 63 17 100/50 (67) 97 09/08/20 04:00 71 09/08/20 00:00 65 09/08/20 00:00 97.1 65 17 101/65 (77) 96 09/07/20 21:00 Nasal Cannula 2.0 Nasal Cannula 2.0 09/07/20 20:16 68 18 97 Nasal Cannula 2.0 28 09/07/20 20:16 97 Nasal Cannula 2.0 28 09/07/20 20:00 97.2 65 18 114/64 (81) 95 09/07/20 20:00 64 I&O Intake and Output 09/07/20 09/08/20 19:00 07:00 Intake Total 130 ml Output Total 100 ml 300 ml Balance -100 ml -170 ml Intake Oral 130 ml Output Urine Total 100 ml 300 ml # Voids 3 Dressing: saturated Cardiovascular: RSR Respiratory: decreased breath sounds Abdomen: soft, non-tender, present bowel sounds Extremities: no tenderness, no cyanosis Laboratory Tests Test 09/07/20 20:35 09/07/20 21:34 09/08/20 05:46 09/08/20 05:54 POC Whole Blood Glucose 79 MG/DL (74-106) 98 MG/DL (74-106) 75 MG/DL (74-106) White Blood Count 7.6 K/UL (4.8-10.8) Red Blood Count 2.75 M/UL (4.20-5.40) L Hemoglobin 8.0 G/DL (12.0-16.0) L Hematocrit 26.6 % (37.0-47.0) L Mean Corpuscular Volume 97 FL (80-99) Mean Corpuscular Hemoglobin 29.0 PG (27.0-31.0) Mean Corpuscular Hemoglobin Concent 30.1 G/DL (32.0-36.0) L Red Cell Distribution Width 17.2 % (11.6-14.8) H Platelet Count 85 K/UL (150-450) L Mean Platelet Volume 8.8 FL (6.5-10.1) Neutrophils (%) (Auto) % (45.0-75.0) Lymphocytes (%) (Auto) % (20.0-45.0) Monocytes (%) (Auto) % (1.0-10.0) Eosinophils (%) (Auto) % (0.0-3.0) Basophils (%) (Auto) % (0.0-2.0) Differential Total Cells Counted 100 Neutrophils % (Manual) 84 % (45-75) H Lymphocytes % (Manual) 7 % (20-45) L Monocytes % (Manual) 9 % (1-10) Eosinophils % (Manual) 0 % (0-3) Basophils % (Manual) 0 % (0-2) Band Neutrophils 0 % (0-8) Platelet Estimate Decreased L Platelet Morphology Normal Hypochromasia 1+ Anisocytosis 1+ Sodium Level 136 MMOL/L (136-145) Potassium Level 4.0 MMOL/L (3.5-5.1) Chloride Level 100 MMOL/L (98-107) Carbon Dioxide Level 26 MMOL/L (21-32) Anion Gap 10 mmol/L (5-15) Blood Urea Nitrogen 68 mg/dL (7-18) H Creatinine 4.2 MG/DL (0.55-1.30) H Estimat Glomerular Filtration Rate 10.5 mL/min (>60) Glucose Level 73 MG/DL (74-106) L Uric Acid 5.4 MG/DL (2.6-7.2) Calcium Level 7.8 MG/DL (8.5-10.1) L Phosphorus Level 5.8 MG/DL (2.5-4.9) H Magnesium Level 2.3 MG/DL (1.8-2.4) Total Bilirubin 0.8 MG/DL (0.2-1.0) Aspartate Amino Transf (AST/SGOT) 23 U/L (15-37) Alanine Aminotransferase (ALT/SGPT) < 6 U/L (12-78) L Alkaline Phosphatase 117 U/L (46-116) H C-Reactive Protein, Quantitative 11.8 mg/dL (0.00-0.90) H Pro-B-Type Natriuretic Peptide 99663 pg/mL (0-125) H Total Protein 6.5 G/DL (6.4-8.2) Albumin 2.5 G/DL (3.4-5.0) L Globulin 4.0 g/dL Albumin/Globulin Ratio 0.6 (1.0-2.7) L Test 09/08/20 11:21 09/08/20 16:41 POC Whole Blood Glucose 94 MG/DL (74-106) 84 MG/DL (74-106) Plan Problems: (1) Acute on chronic diastolic (congestive) heart failure (2) Anemia (3) Acute respiratory failure Assessment & Plan: Large right pleural effusion persists, unchanged. Bilateral interstitial and airspace edema, cardiomegaly persists, probably unchanged allowing for differences in technique and inspiration (4) ACS (acute coronary syndrome) (5) History of hypertension (6) Moderate pulmonary arterial systolic hypertension (7) Left bundle branch block (LBBB) (8) Diabetes mellitus (9) Diabetic nephropathy (10) Renal failure (ARF), acute on chronic (11) Hyperkalemia (12) Bacteremia (13) CAD (coronary artery disease) (14) Hypothyroidism (15) Cardiac left ventricular ejection fraction greater than 40 percent (16) Grade I diastolic dysfunction (17) UTI (urinary tract infection) (18) Ulcers of both lower legs (19) Open wounds involving multiple regions of lower extremity Assessment & Plan: Patient identified admission having bilateral lower extremity edema open wounds as well as necrotic ulcerations. Patient states she has had this for some time now and acutely worsening as well. Bilateral lower leg wounds do to blisters from edema. Right medial lower leg wound 2.1x4.2x0.2 dark brown scab . Right anterior lower leg wound 5.6x5.3x0.2 pink wound bed. Right distal anterior lower leg 4.0x6.0x0.2 pink wound bed . Large amount serous drainage right leg wounds , Xeroform ,gauze,abd pad and kerlix applied change every shift. Left lower leg wound 3.7x5.0x0.3 100% green slough large amount serous drainage noted with small blisters ifeoma wound, Thera Honey, gauze,abd pad and kerlix applied, change every shift. Local wound care plan initiate Nutritional optimization Turn every 2 hours Elevate extremities Thank you will follow recommendations Right deep veins: Unremarkable. No DVT in the right common femoral, femoral, proximal deep femoral or popliteal veins. The veins demonstrate normal color flow, are normally compressible, with normal phasic flow and/or augmentation response. Right superficial veins: Unremarkable. No thrombus in the visualized right great saphenous vein. Left deep veins: Unremarkable. No DVT in the left common femoral, femoral, proximal deep femoral or popliteal veins. The veins demonstrate normal color flow, are normally compressible, with normal phasic flow and/or augmentation response. Left superficial veins: Unremarkable. No thrombus in the visualized left great saphenous vein. Soft tissues: No acute findings. No popliteal cyst. IMPRESSION: Normal bilateral lower extremity duplex venous ultrasound. DAILY ESTIMATED NEEDS: Needs based on ARF, now HD 65.7kg abw 25-30 kcals/kg [id number] total kcals 1.25-1.8 g protein/kg 82-118 g total protein Fluid per MD, HD pending NUTRITION DIAGNOSIS: Increased pro needs r/t renal dysfunction as evidenced by pt w/ ARF, w/ now pending HD, K on adm (5.8), elev BUN (81), elev Creat (3.8), elev phos and mg. CURRENT DIET:Renal/ CCHO MED PO DIET RECOMMENDATIONS: Renal / CCHO LOW diet + high pro snacks in b/w meals ADDITIONAL RECOMMENDATIONS: 1) Maintain calibrated bed scale wts 2) High pro snacks in b/w meals 3) Rec WC eval-> add nephrovite 1 tab daily Vit C per Omar Jolley Sep 08, 2020 18:44
--- NOTE | 2020-09-08 18:52 | Pulmonology Progress Note ---
Subjective ROS Limited/Unobtainable: No Constitutional: Reports: no symptoms HEENT: Repors: no symptoms Respiratory: Reports: no symptoms Allergies: Coded Allergies: No Known Allergies (Unverified , 10/10/19) All Systems: reviewed and negative except above Objective Last 24 Hour Vital Signs Date Time Temp Pulse Resp B/P (MAP) Pulse Ox O2 Delivery O2 Flow Rate FiO2 09/08/20 16:00 64 09/08/20 16:00 97.9 64 18 95/44 (61) 96 09/08/20 12:00 97.1 64 18 106/64 (78) 96 09/08/20 12:00 67 09/08/20 09:00 Nasal Cannula 2.0 Nasal Cannula 2.0 09/08/20 08:00 60 09/08/20 07:59 97.5 62 18 113/49 (70) 96 09/08/20 04:00 98.1 63 17 100/50 (67) 97 09/08/20 04:00 71 09/08/20 00:00 65 09/08/20 00:00 97.1 65 17 101/65 (77) 96 09/07/20 21:00 Nasal Cannula 2.0 Nasal Cannula 2.0 09/07/20 20:16 68 18 97 Nasal Cannula 2.0 28 09/07/20 20:16 97 Nasal Cannula 2.0 28 09/07/20 20:00 97.2 65 18 114/64 (81) 95 09/07/20 20:00 64 Intake and Output 09/07/20 09/08/20 19:00 07:00 Intake Total 130 ml Output Total 100 ml 300 ml Balance -100 ml -170 ml Intake Oral 130 ml Output Urine Total 100 ml 300 ml # Voids 3 General Appearance: WD/WN HEENT: normocephalic, atraumatic Respiratory: chest wall non-tender, lungs clear Breasts: no masses Cardiovascular: normal peripheral pulses Abdomen: normal bowel sounds, soft, non tender Genitourinary: normal external genitalia Extremities: no cyanosis, no clubbing, other - right knee swelling and warmth Neurologic: flume maker II-XII grossly normal Laboratory Tests 09/07/20 20:35: POC Whole Blood Glucose 79 09/07/20 21:34: POC Whole Blood Glucose 98 09/08/20 05:46: POC Whole Blood Glucose 75 09/08/20 05:54: White Blood Count 7.6, Red Blood Count 2.75L, Hemoglobin 8.0L, Hematocrit 26.6L, Mean Corpuscular Volume 97, Mean Corpuscular Hemoglobin 29.0, Mean Corpuscular Hemoglobin Concent 30.1L, Red Cell Distribution Width 17.2H, Platelet Count 85L, Mean Platelet Volume 8.8, Neutrophils (%) (Auto) , Lymphocytes (%) (Auto) , Monocytes (%) (Auto) , Eosinophils (%) (Auto) , Basophils (%) (Auto) , Differential Total Cells Counted 100, Neutrophils % (Manual) 84H, Lymphocytes % (Manual) 7L, Monocytes % (Manual) 9, Eosinophils % (Manual) 0, Basophils % (Manual) 0, Band Neutrophils 0, Platelet Estimate DecreasedL, Platelet Morphology Normal, Hypochromasia 1+, Anisocytosis 1+, Sodium Level 136, Potassium Level 4.0, Chloride Level 100, Carbon Dioxide Level 26, Anion Gap 10, Blood Urea Nitrogen 68H, Creatinine 4.2H, Estimat Glomerular Filtration Rate 10.5, Glucose Level 73L, Uric Acid 5.4, Calcium Level 7.8L, Phosphorus Level 5.8H, Magnesium Level 2.3, Total Bilirubin 0.8, Aspartate Amino Transf (AST/SG OT) 23, Alanine Aminotransferase (ALT/SGPT) < 6L, Alkaline Phosphatase 117H, C- Reactive Protein, Quantitative 11.8H, Pro-B-Type Natriuretic Peptide 60998H, Total Protein 6.5, Albumin 2.5L, Globulin 4.0, Albumin/Globulin Ratio 0.6L 09/08/20 11:21: POC Whole Blood Glucose 94 09/08/20 16:41: POC Whole Blood Glucose 84 Current Medications Medications (Trade) Dose Ordered Sig/Braeden Route PRN Reason Start Time Stop Time Status Last Admin Dose Admin Acetaminophen (Tylenol) 650 mg Q4H PRN ORAL FEVER 08/30/20 23:45 09/29/20 23:44 Albuterol/ Ipratropium (Albuterol/ Ipratropium) 3 ml Q4H PRN HHN Shortness of Breath 09/07/20 09:00 09/12/20 08:59 Allopurinol (Zyloprim) 100 mg DAILY ORAL 09/09/20 09:00 10/09/20 08:59 Calcium Acetate (Phoslo) 667 mg TIAC ORAL 09/08/20 11:30 12/07/20 11:29 09/08/20 17:23 Ceftaroline Fosamil 300 mg/ Sodium Chloride 55 ml @ 55 mls/hr Q12HR@0200,1400 IV 09/08/20 02:00 09/15/20 01:59 09/08/20 13:11 Chlorhexidine Gluconate (Josiane-Hex 2%) 1 applic DAILY@2000 TOPIC 09/06/20 20:00 12/05/20 19:59 09/07/20 20:49 Dextrose (Dextrose 50%) 25 ml Q30M PRN IV Hypoglycemia 08/30/20 23:45 11/28/20 23:44 Dextrose (Dextrose 50%) 50 ml Q30M PRN IV Hypoglycemia 08/30/20 23:45 11/28/20 23:44 Epoetin Shlomo (Epoetin Shlomo(ESRD on dialysis)) 10,000 unit TUE-TUE-TUE SUBQ 09/08/20 21:00 12/07/20 20:59 Folic Acid (Folate) 3 mg DAILY ORAL 09/02/20 09:00 10/02/20 08:59 09/08/20 08:29 Heparin Sodium (Porcine) (Heparin 5000 units/ml) 5,000 units EVERY 12 HOURS SUBQ 08/31/20 09:00 10/15/20 08:59 09/06/20 00:16 Indomethacin (Indocin) 25 mg THREE TIMES A DAY ORAL 09/04/20 13:00 10/04/20 12:59 09/08/20 17:23 Insulin Aspart (NovoLOG) BEFORE MEALS AND HS SUBQ 08/31/20 06:30 11/29/20 06:29 09/04/20 21:17 Iron Sucrose 100 mg/Sodium Chloride 60 ml @ 240 mls/hr BEDTIME IVPB 09/08/20 21:00 09/12/20 21:14 Levofloxacin 100 ml @ 100 mls/hr Q48H IVPB 09/04/20 18:00 09/11/20 17:59 09/08/20 17:24 Levothyroxine Sodium (Synthroid) 100 mcg DAILY@0630 ORAL 09/02/20 06:30 10/02/20 06:29 09/08/20 06:03 Metoclopramide HCl (Reglan) 5 mg THREE TIMES A DAY ORAL 08/31/20 13:00 09/30/20 12:59 09/08/20 17:23 Morphine Sulfate (Morphine Sulfate) 2 mg Q4H PRN IVP For Pain 09/07/20 08:30 09/14/20 08:29 Ondansetron HCl (Zofran) 4 mg Q6H PRN IVP Nausea & Vomiting 08/30/20 23:45 09/29/20 23:44 Pantoprazole (Protonix) 40 mg EVERY 12 HOURS ORAL 08/31/20 21:00 09/30/20 20:59 09/08/20 08:29 Polyethylene Glycol (Miralax) 17 gm DAILYPRN PRN ORAL Constipation 08/30/20 23:45 09/29/20 23:44 Promethazine HCl/ Codeine (Phenergan with Codeine) 5 ml Q6H PRN ORAL cough 08/30/20 23:45 09/29/20 23:44 Assessment/Plan Problems: (1) Acute on chronic diastolic (congestive) heart failure (2) Gout (3) Renal failure (ARF), acute on chronic (4) Diabetes mellitus (5) Left bundle branch block (LBBB) (6) Cardiac left ventricular ejection fraction greater than 40 percent (7) Grade I diastolic dysfunction (8) History of hypertension Assessment/Plan got dialyzed today again pt c/o right knee pain, might need arthrocentesis. Dr. Royal called O2 titrate to keep sat > 92%, currently down to O2 via NC thoracentesis done, 600 cc removed from right side. CXR today shows remarkable decrease in amount of right sided effusion empiric abx DVT prophylaxis Tiana Cool MD Sep 08, 2020 18:52
[2020-09-08] MEDS ORDERED: NS 275ml ONE (19:32)
[2020-09-08] MEDS ORDERED: Tubing IV Secondary IV ONE (19:32)
[2020-09-08] MEDS: Dyna-Hex 2% Top Sol 2oz TOPIC SCH (20:00)
[2020-09-08] MEDS: Epoetin Alfa-EPBX(ESRD on dialysis)10,000 unit/ml vial SUBQ SCH (21:00)
[2020-09-08] MEDS: Iron Sucrose 100 MG in NS 55 ML IVPB SCH (21:00)
[2020-09-09] VITALS: BP 103/62
[2020-09-09] MEDS: NS IV SCH (01:40)
[2020-09-09] MEDS: CEFTAROLINE IV SCH (01:40)
[2020-09-09 04:00] VITALS: BP 93/48
[2020-09-09] MEDS: NovoLOG Insulin Flexpen SUBQ SCH ×4 (06:30→20:51)
--- NOTE | 2020-09-09 06:37 | Hematology/Onc Progress Note ---
Assessment/Plan Assessment/Plan Assessment and Recs: # Anemia of chronic disease due to underlying chronic medical issues, multifactorial v Gi bleed --> Anemia workup has been ordered, rule out gi bleed --> No evidence of hemolysis is noted, peripheral smear has been reviewed. --> Hgb goal >7. Transfuse prn. --> EPOGEN AND IV IRON STARTED, CONTINUE --> Medications have been reviewed --> hgb 7.7-->8-->8.4-->8 --> egd w/ colo 01/15/20 Gastritis, status post biopsy. Total of 11 polyps removed, Internal hemorrhoids. # Thromocytopenia likely related to infection v reactive process --> hep and hiv are neg --> imaging abd has been reviewed --> peripheral smear noted --> plt 75 # Coagulation defect, multifactorial usually related to poor PO intake versus medications, versus hepatitis v cirrhosis --> administer Vitamin K if patient is bleeding or FFP if the INR is >10 --> hold off on ffp unless active procedure/bleeding, first begin with vit K 10 --> mixing study as needed # Renal failure (ARF), acute on chronic --> ivf as per renal --> renal us reviewed --> improved --> HD as per renal # Hypoglycemia -> endo eval prn # Pleural effusion --> diuresis as needed --> monitor ivf --> HD # Hyperkalemia # Obesity # Dvt ppx heparin sq The timing of this note does not necessarily reflect the time of the patient was seen. Greatly appreciate consultation. Subjective Constitutional: Denies: no symptoms, chills, fever, malaise, weakness, other HEENT: Denies: no symptoms, eye pain, blurred vision, tearing, double vision, ear pain, ear discharge, nose pain, nose congestion, throat pain, throat swelling, mouth pain, mouth swelling, other Cardiovascular: Denies: no symptoms, chest pain, edema, irregular heart rate, lightheadedness, palpitations, syncope, other Gastrointestinal/Abdominal: Denies: no symptoms, abdomen distended, abdominal pain, black stools, tarry stools, blood in stool, constipated, diarrhea, difficulty swallowing, nausea, poor appetite, poor fluid intake, rectal bleeding, vomiting, other Genitourinary: Denies: no symptoms, burning, discharge, frequency, flank pain, hematuria, incontinence, pain, urgency, other Neurologic/Psychiatric: Denies: no symptoms, anxiety, depressed, emotional problems, headache, numbness, paresthesia, pre-existing deficit, seizure, tingling, tremors, weakness, other Endocrine: Denies: no symptoms, excessive sweating, flushing, intolerance to cold, intolerance to heat, increased hunger, increased thirst, increased urine, unexplained weight gain, unexplained weight loss, other Hematologic/Lymphatic: Denies: no symptoms, anemia, easy bleeding, easy bruising, adenopathy, other Allergies: Coded Allergies: No Known Allergies (Unverified , 10/10/19) Subjective 09/08 labs reviewed, hd as per renal, fluid overload improved, labs noted, with dropping plt 09/09 pending plt count this am, on abx, broad spectrum, no other events Objective Objective Current Medications Medications (Trade) Dose Ordered Sig/Braeden Route PRN Reason Start Time Stop Time Status Last Admin Dose Admin Acetaminophen (Tylenol) 650 mg Q4H PRN ORAL FEVER 08/30/20 23:45 09/29/20 23:44 Albuterol/ Ipratropium (Albuterol/ Ipratropium) 3 ml Q4H PRN HHN Shortness of Breath 09/07/20 09:00 09/12/20 08:59 Allopurinol (Zyloprim) 100 mg DAILY ORAL 09/09/20 09:00 10/09/20 08:59 Calcium Acetate (Phoslo) 667 mg TIAC ORAL 09/08/20 11:30 12/07/20 11:29 09/08/20 17:23 Ceftaroline Fosamil 300 mg/ Sodium Chloride 55 ml @ 55 mls/hr Q12HR@0200,1400 IV 09/08/20 02:00 09/15/20 01:59 09/09/20 01:40 Chlorhexidine Gluconate (Josiane-Hex 2%) 1 applic DAILY@1999 TOPIC 09/06/20 20:00 12/05/20 19:59 09/08/20 20:00 Dextrose (Dextrose 50%) 25 ml Q30M PRN IV Hypoglycemia 08/30/20 23:45 11/28/20 23:44 Dextrose (Dextrose 50%) 50 ml Q30M PRN IV Hypoglycemia 08/30/20 23:45 11/28/20 23:44 Epoetin Shlomo (Epoetin Shlomo(ESRD on dialysis)) 10,000 unit TUE-TUE-TUE SUBQ 09/08/20 21:00 12/07/20 20:59 09/08/20 21:00 Folic Acid (Folate) 3 mg DAILY ORAL 09/02/20 09:00 10/02/20 08:59 09/08/20 08:29 Heparin Sodium (Porcine) (Heparin 5000 units/ml) 5,000 units EVERY 12 HOURS SUBQ 08/31/20 09:00 10/15/20 08:59 09/06/20 00:16 Indomethacin (Indocin) 25 mg THREE TIMES A DAY ORAL 09/04/20 13:00 10/04/20 12:59 09/08/20 17:23 Insulin Aspart (NovoLOG) BEFORE MEALS AND HS SUBQ 08/31/20 06:30 11/29/20 06:29 09/04/20 21:17 Iron Sucrose 100 mg/Sodium Chloride 60 ml @ 240 mls/hr BEDTIME IVPB 09/08/20 21:00 09/12/20 21:14 09/08/20 21:00 Levofloxacin 100 ml @ 100 mls/hr Q48H IVPB 09/04/20 18:00 09/11/20 17:59 09/08/20 17:24 Levothyroxine Sodium (Synthroid) 100 mcg DAILY@0630 ORAL 09/02/20 06:30 10/02/20 06:29 09/08/20 06:03 Metoclopramide HCl (Reglan) 5 mg THREE TIMES A DAY ORAL 08/31/20 13:00 09/30/20 12:59 09/08/20 17:23 Morphine Sulfate (Morphine Sulfate) 2 mg Q4H PRN IVP For Pain 09/07/20 08:30 09/14/20 08:29 Ondansetron HCl (Zofran) 4 mg Q6H PRN IVP Nausea & Vomiting 08/30/20 23:45 09/29/20 23:44 Pantoprazole (Protonix) 40 mg EVERY 12 HOURS ORAL 08/31/20 21:00 09/30/20 20:59 09/08/20 21:00 Polyethylene Glycol (Miralax) 17 gm DAILYPRN PRN ORAL Constipation 08/30/20 23:45 09/29/20 23:44 Promethazine HCl/ Codeine (Phenergan with Codeine) 5 ml Q6H PRN ORAL cough 08/30/20 23:45 09/29/20 23:44 Last 24 Hour Vital Signs Date Time Temp Pulse Resp B/P (MAP) Pulse Ox O2 Delivery O2 Flow Rate FiO2 09/09/20 04:00 97.9 61 20 93/48 (63) 98 09/09/20 04:00 64 09/09/20 03:38 32 09/09/20 00:00 96.6 61 16 103/62 (76) 96 09/09/20 00:00 60 09/08/20 22:36 97.0 63 13 99/49 (66) 96 09/08/20 21:00 Nasal Cannula 2.0 Nasal Cannula 2.0 09/08/20 20:04 96 Nasal Cannula 2.0 28 09/08/20 20:04 67 18 96 Nasal Cannula 2.0 28 09/08/20 20:00 61 09/08/20 20:00 97.0 63 18 99/49 (66) 96 09/08/20 16:00 64 09/08/20 16:00 97.9 64 18 95/44 (61) 96 09/08/20 12:00 97.1 64 18 106/64 (78) 96 09/08/20 12:00 67 09/08/20 09:00 Nasal Cannula 2.0 Nasal Cannula 2.0 09/08/20 08:00 60 09/08/20 07:59 97.5 62 18 113/49 (70) 96 09/08/20 04:00 98.1 63 17 100/50 (67) 97 09/08/20 04:00 71 09/08/20 00:00 65 09/08/20 00:00 97.1 65 17 101/65 (77) 96 09/07/20 21:00 Nasal Cannula 2.0 Nasal Cannula 2.0 09/07/20 20:16 68 18 97 Nasal Cannula 2.0 28 09/07/20 20:16 97 Nasal Cannula 2.0 28 09/07/20 20:00 97.2 65 18 114/64 (81) 95 09/07/20 20:00 64 09/07/20 16:00 98.7 71 18 145/80 (101) 97 09/07/20 16:00 65 09/07/20 12:00 64 09/07/20 12:00 96.7 59 19 140/71 (94) 98 09/07/20 09:00 Nasal Cannula 2.0 09/07/20 08:00 63 09/07/20 08:00 98.7 61 19 141/67 (91) 97 09/07/20 07:07 72 18 97 Nasal Cannula 2.0 28 09/07/20 07:07 97 Nasal Cannula 2.0 28 Intake and Output 09/08/20 09/09/20 19:00 07:00 Intake Total 150 ml 240 ml Output Total 3000 ml 23 ml Balance -2850 ml 217 ml Intake Oral 150 ml 240 ml Output Urine Total 23 ml Hemodialysis UF 3000 ml Labs Test 09/06/20 12:12 09/06/20 16:38 09/06/20 21:50 09/07/20 06:15 POC Whole Blood Glucose 90 MG/DL (74-106) 87 MG/DL (74-106) 91 MG/DL (74-106) 87 MG/DL (74-106) Test 09/07/20 07:25 09/07/20 12:05 09/07/20 16:59 09/07/20 17:22 White Blood Count 7.1 K/UL (4.8-10.8) Red Blood Count 2.78 M/UL (4.20-5.40) Hemoglobin 8.0 G/DL (12.0-16.0) Hematocrit 26.7 % (37.0-47.0) Mean Corpuscular Volume 96 FL (80-99) Mean Corpuscular Hemoglobin 28.7 PG (27.0-31.0) Mean Corpuscular Hemoglobin Concent 29.9 G/DL (32.0-36.0) Red Cell Distribution Width 16.6 % (11.6-14.8) Platelet Count 75 K/UL (150-450) Mean Platelet Volume 8.8 FL (6.5-10.1) Neutrophils (%) (Auto) % (45.0-75.0) Lymphocytes (%) (Auto) % (20.0-45.0) Monocytes (%) (Auto) % (1.0-10.0) Eosinophils (%) (Auto) % (0.0-3.0) Basophils (%) (Auto) % (0.0-2.0) Differential Total Cells Counted 100 Neutrophils % (Manual) 75 % (45-75) Lymphocytes % (Manual) 15 % (20-45) Monocytes % (Manual) 9 % (1-10) Eosinophils % (Manual) 1 % (0-3) Basophils % (Manual) 0 % (0-2) Band Neutrophils 0 % (0-8) Platelet Estimate Decreased Platelet Morphology Normal Hypochromasia 1+ Anisocytosis 1+ Sodium Level 136 MMOL/L (136-145) Potassium Level 3.8 MMOL/L (3.5-5.1) Chloride Level 100 MMOL/L (98-107) Carbon Dioxide Level 26 MMOL/L (21-32) Anion Gap 11 mmol/L (5-15) Blood Urea Nitrogen 59 mg/dL (7-18) Creatinine 3.5 MG/DL (0.55-1.30) Estimat Glomerular Filtration Rate 13.0 mL/min (>60) Glucose Level 74 MG/DL (74-106) Uric Acid 5.2 MG/DL (2.6-7.2) Calcium Level 8.0 MG/DL (8.5-10.1) Phosphorus Level 4.7 MG/DL (2.5-4.9) Magnesium Level 2.3 MG/DL (1.8-2.4) Total Bilirubin 0.8 MG/DL (0.2-1.0) Aspartate Amino Transf (AST/SGOT) 15 U/L (15-37) Alanine Aminotransferase (ALT/SGPT) 10 U/L (12-78) Alkaline Phosphatase 114 U/L (46-116) C-Reactive Protein, Quantitative 10.7 mg/dL (0.00-0.90) Pro-B-Type Natriuretic Peptide 06730 pg/mL (0-125) Total Protein 6.6 G/DL (6.4-8.2) Albumin 2.7 G/DL (3.4-5.0) Globulin 3.9 g/dL Albumin/Globulin Ratio 0.7 (1.0-2.7) POC Whole Blood Glucose 81 MG/DL (74-106) 123 MG/DL (74-106) Test 09/07/20 20:35 09/07/20 21:34 09/08/20 05:46 09/08/20 05:54 POC Whole Blood Glucose 79 MG/DL (74-106) 98 MG/DL (74-106) 75 MG/DL (74-106) White Blood Count 7.6 K/UL (4.8-10.8) Red Blood Count 2.75 M/UL (4.20-5.40) Hemoglobin 8.0 G/DL (12.0-16.0) Hematocrit 26.6 % (37.0-47.0) Mean Corpuscular Volume 97 FL (80-99) Mean Corpuscular Hemoglobin 29.0 PG (27.0-31.0) Mean Corpuscular Hemoglobin Concent 30.1 G/DL (32.0-36.0) Red Cell Distribution Width 17.2 % (11.6-14.8) Platelet Count 85 K/UL (150-450) Mean Platelet Volume 8.8 FL (6.5-10.1) Neutrophils (%) (Auto) % (45.0-75.0) Lymphocytes (%) (Auto) % (20.0-45.0) Monocytes (%) (Auto) % (1.0-10.0) Eosinophils (%) (Auto) % (0.0-3.0) Basophils (%) (Auto) % (0.0-2.0) Differential Total Cells Counted 100 Neutrophils % (Manual) 84 % (45-75) Lymphocytes % (Manual) 7 % (20-45) Monocytes % (Manual) 9 % (1-10) Eosinophils % (Manual) 0 % (0-3) Basophils % (Manual) 0 % (0-2) Band Neutrophils 0 % (0-8) Platelet Estimate Decreased Platelet Morphology Normal Hypochromasia 1+ Anisocytosis 1+ Sodium Level 136 MMOL/L (136-145) Potassium Level 4.0 MMOL/L (3.5-5.1) Chloride Level 100 MMOL/L (98-107) Carbon Dioxide Level 26 MMOL/L (21-32) Anion Gap 10 mmol/L (5-15) Blood Urea Nitrogen 68 mg/dL (7-18) Creatinine 4.2 MG/DL (0.55-1.30) Estimat Glomerular Filtration Rate 10.5 mL/min (>60) Glucose Level 73 MG/DL (74-106) Uric Acid 5.4 MG/DL (2.6-7.2) Calcium Level 7.8 MG/DL (8.5-10.1) Phosphorus Level 5.8 MG/DL (2.5-4.9) Magnesium Level 2.3 MG/DL (1.8-2.4) Total Bilirubin 0.8 MG/DL (0.2-1.0) Aspartate Amino Transf (AST/SGOT) 23 U/L (15-37) Alanine Aminotransferase (ALT/SGPT) < 6 U/L (12-78) Alkaline Phosphatase 117 U/L (46-116) C-Reactive Protein, Quantitative 11.8 mg/dL (0.00-0.90) Pro-B-Type Natriuretic Peptide 20914 pg/mL (0-125) Total Protein 6.5 G/DL (6.4-8.2) Albumin 2.5 G/DL (3.4-5.0) Globulin 4.0 g/dL Albumin/Globulin Ratio 0.6 (1.0-2.7) Test 09/08/20 11:21 09/08/20 16:41 09/08/20 21:57 09/09/20 06:11 POC Whole Blood Glucose 94 MG/DL (74-106) 84 MG/DL (74-106) Height (Feet): 5 Height (Inches): 10.00 Weight (Pounds): 218 Objective ++Derick Hwang MD Sep 09, 2020 06:37
--- NOTE | 2020-09-09 07:04 | Infectious Diseases Prog Note ---
Assessment/Plan 70yo F with: Severe Sepsis Pneumonia Acute hypoxic resp failure- on 2L NC R pleural effusion, transudate -09/03 SP Thoracentesis: Successful ultrasound-guided thoracentesis, yielding 680 milliliters of clear yellow fluid; cx NTD -fluid prot 1.4, glucose 198 -09/01 Chest US: Positive for right pleural effusion Incidental finding of ascites, also previously reporte -08/30 CXR: There is again patchy ill-defined airspace opacities at the right greater than left base with some consolidated appearance again seen on the right. There is now patchy ill-defined opacity at the right upper lung. A small right pleural effusion is suggested. The patient is rotated to the right. Status post median sternotomy again noted. -08/30 & rapid covid PCR neg x2 -08/30 Bcx NTD Afebrile Leukocytosis, SP -09/02 Bcx NTD -08/31 u/a no pyuria R arm and R leg cellulitis; improving Recent hx of COVID19- pt clarified initial diagnosis was 2 months ago and not 08/25 as per documentation on EMR. VENANCIO on CKD -Renal US: Ascites. Bilateral pleural effusions. Complex right renal cysts of uncertain etiology. This complex cyst is unchanged from the study of 01/12/2020. Mildly atrophic right kidney.Magnetic resonance imaging of the abdomen with gadolinium administration is advised for further evaluation of complex right renal cyst. PMH: HTN dCHF pHTN Ascites Chronic LE edema DM2 c/w neuropathy Iron def anemia Plan: Stop empiric ceftaroline and levofloxacin #9 (abx d #10/10) Monitor off abx -08/31 SP Ceftriaxone #2, Azithromcyin #2 -f/u cx -Monitor CBC/CMP, temperatures -aspiration precautions D/w RN Thank you for consulting [facility]. Will continue to follow along with you. Subjective Allergies: Coded Allergies: No Known Allergies (Unverified , 10/10/19) AF WBC stable at 8.9 NAD on 2LNC, but NC is above her nose Objective Last 24 Hour Vital Signs Date Time Temp Pulse Resp B/P (MAP) Pulse Ox O2 Delivery O2 Flow Rate FiO2 09/09/20 04:00 97.9 61 20 93/48 (63) 98 09/09/20 04:00 64 09/09/20 03:38 32 09/09/20 00:00 96.6 61 16 103/62 (76) 96 09/09/20 00:00 60 09/08/20 22:36 97.0 63 13 99/49 (66) 96 09/08/20 21:00 Nasal Cannula 2.0 Nasal Cannula 2.0 09/08/20 20:04 96 Nasal Cannula 2.0 28 09/08/20 20:04 67 18 96 Nasal Cannula 2.0 28 09/08/20 20:00 61 09/08/20 20:00 97.0 63 18 99/49 (66) 96 09/08/20 16:00 64 09/08/20 16:00 97.9 64 18 95/44 (61) 96 09/08/20 12:00 97.1 64 18 106/64 (78) 96 09/08/20 12:00 67 09/08/20 09:00 Nasal Cannula 2.0 Nasal Cannula 2.0 09/08/20 08:00 60 09/08/20 07:59 97.5 62 18 113/49 (70) 96 Height (Feet): 5 Height (Inches): 10.00 Weight (Pounds): 218 Gen: NAD in bed HEENT: NCAT, EOMI, PERRL CV: RRR Pulm: CTAB Abd: Soft, NTND Ext: No c/c/e Neuro: Awake, interactive in [place] Laboratory Tests Test 09/08/20 11:21 09/08/20 16:41 09/08/20 21:57 09/09/20 05:20 POC Whole Blood Glucose 94 MG/DL (74-106) 84 MG/DL (74-106) Pending White Blood Count Pending Red Blood Count Pending Hemoglobin Pending Hematocrit Pending Mean Corpuscular Volume Pending Mean Corpuscular Hemoglobin Pending Mean Corpuscular Hemoglobin Concent Pending Red Cell Distribution Width Pending Platelet Count Pending Mean Platelet Volume Pending Neutrophils (%) (Auto) Pending Lymphocytes (%) (Auto) Pending Monocytes (%) (Auto) Pending Eosinophils (%) (Auto) Pending Basophils (%) (Auto) Pending Sodium Level Pending Potassium Level Pending Chloride Level Pending Carbon Dioxide Level Pending Blood Urea Nitrogen Pending Creatinine Pending Estimat Glomerular Filtration Rate Pending Glucose Level Pending Calcium Level Pending Phosphorus Level Pending Magnesium Level Pending Total Bilirubin Pending Aspartate Amino Transf (AST/SGOT) Pending Alanine Aminotransferase (ALT/SGPT) Pending Alkaline Phosphatase Pending Total Protein Pending Albumin Pending Globulin Pending Test 09/09/20 06:11 POC Whole Blood Glucose Pending Current Medications Medications (Trade) Dose Ordered Sig/Braeden Route PRN Reason Start Time Stop Time Status Last Admin Dose Admin Acetaminophen (Tylenol) 650 mg Q4H PRN ORAL FEVER 08/30/20 23:45 09/29/20 23:44 Albuterol/ Ipratropium (Albuterol/ Ipratropium) 3 ml Q4H PRN HHN Shortness of Breath 09/07/20 09:00 09/12/20 08:59 Allopurinol (Zyloprim) 100 mg DAILY ORAL 09/09/20 09:00 10/09/20 08:59 Calcium Acetate (Phoslo) 667 mg TIAC ORAL 09/08/20 11:30 12/07/20 11:29 09/09/20 06:36 Ceftaroline Fosamil 300 mg/ Sodium Chloride 55 ml @ 55 mls/hr Q12HR@0200,1400 IV 09/08/20 02:00 09/15/20 01:59 09/09/20 01:40 Chlorhexidine Gluconate (Josiane-Hex 2%) 1 applic DAILY@2000 TOPIC 09/06/20 20:00 12/05/20 19:59 09/08/20 20:00 Dextrose (Dextrose 50%) 25 ml Q30M PRN IV Hypoglycemia 08/30/20 23:45 11/28/20 23:44 Dextrose (Dextrose 50%) 50 ml Q30M PRN IV Hypoglycemia 08/30/20 23:45 11/28/20 23:44 Epoetin Shlomo (Epoetin Shlomo(ESRD on dialysis)) 10,000 unit MON-WED-TUE SUBQ 09/08/20 21:00 12/07/20 20:59 09/08/20 21:00 Folic Acid (Folate) 3 mg DAILY ORAL 09/02/20 09:00 10/02/20 08:59 09/08/20 08:29 Heparin Sodium (Porcine) (Heparin 5000 units/ml) 5,000 units EVERY 12 HOURS SUBQ 08/31/20 09:00 10/15/20 08:59 09/06/20 00:16 Indomethacin (Indocin) 25 mg THREE TIMES A DAY ORAL 09/04/20 13:00 10/04/20 12:59 09/08/20 17:23 Insulin Aspart (NovoLOG) BEFORE MEALS AND HS SUBQ 08/31/20 06:30 11/29/20 06:29 09/04/20 21:17 Iron Sucrose 100 mg/Sodium Chloride 60 ml @ 240 mls/hr BEDTIME IVPB 09/08/20 21:00 09/12/20 21:14 09/08/20 21:00 Levofloxacin 100 ml @ 100 mls/hr Q48H IVPB 09/04/20 18:00 09/11/20 17:59 09/08/20 17:24 Levothyroxine Sodium (Synthroid) 100 mcg DAILY@0630 ORAL 09/02/20 06:30 10/02/20 06:29 09/09/20 06:37 Metoclopramide HCl (Reglan) 5 mg THREE TIMES A DAY ORAL 08/31/20 13:00 09/30/20 12:59 09/08/20 17:23 Morphine Sulfate (Morphine Sulfate) 2 mg Q4H PRN IVP For Pain 09/07/20 08:30 09/14/20 08:29 Ondansetron HCl (Zofran) 4 mg Q6H PRN IVP Nausea & Vomiting 08/30/20 23:45 09/29/20 23:44 Pantoprazole (Protonix) 40 mg EVERY 12 HOURS ORAL 08/31/20 21:00 09/30/20 20:59 09/08/20 21:00 Polyethylene Glycol (Miralax) 17 gm DAILYPRN PRN ORAL Constipation 08/30/20 23:45 09/29/20 23:44 Promethazine HCl/ Codeine (Phenergan with Codeine) 5 ml Q6H PRN ORAL cough 08/30/20 23:45 09/29/20 23:44 Nadia Calvin M.D. Sep 09, 2020 07:04
[2020-09-09 07:25] LABS: HEMATOCRIT 27.5 % (37.0-47.0); HEMOGLOBIN 8.2 G/DL (12.0-16.0); MEAN CORPUSCULAR VOLUME 97 FL (80-99); PLATELET COUNT 76 K/UL (150-450); RED BLOOD COUNT 2.84 M/UL (4.20-5.40); RED CELL DISTRIBUTION WIDTH 17.2 % (11.6-14.8); WHITE BLOOD COUNT 8.9 K/UL (4.8-10.8)
--- NOTE | 2020-09-09 07:29 | Cardiac Electrophysiology PN ---
Assessment/Plan Assessment/Plan 1. Volume overload due to renal failure as creatinine is 3.5. Echocardiogram showed ejection fraction of 50%. Off Amlodipine. On HD after PermCath placement 09/05. 2. Left bundle-branch block. 3. Diastolic dysfunction. Ejection fraction of 50%. 4. Hyperkalemia. Got Kayexalate by Dr. Severino. 5. Diabetic nephropathy. 6. Renal failure. BUN/Cr 81/3.8 S/P PermCath and dialysis 7. Hypothyroidism. 8. Iron-deficiency anemia. 9. Right pleural effusion. S/P 800cc Right thoracentesis 09/03/20 DW RN Subjective Subjective S/P Right chest PermCath and HD on 09/05, 09/06 and 09/08. No CP in SR. Objective Last 24 Hour Vital Signs Date Time Temp Pulse Resp B/P (MAP) Pulse Ox O2 Delivery O2 Flow Rate FiO2 09/09/20 04:00 97.9 61 20 93/48 (63) 98 09/09/20 04:00 64 09/09/20 03:38 32 09/09/20 00:00 96.6 61 16 103/62 (76) 96 09/09/20 00:00 60 09/08/20 22:36 97.0 63 13 99/49 (66) 96 09/08/20 21:00 Nasal Cannula 2.0 Nasal Cannula 2.0 09/08/20 20:04 96 Nasal Cannula 2.0 28 09/08/20 20:04 67 18 96 Nasal Cannula 2.0 28 09/08/20 20:00 61 09/08/20 20:00 97.0 63 18 99/49 (66) 96 09/08/20 16:00 64 09/08/20 16:00 97.9 64 18 95/44 (61) 96 09/08/20 12:00 97.1 64 18 106/64 (78) 96 09/08/20 12:00 67 09/08/20 09:00 Nasal Cannula 2.0 Nasal Cannula 2.0 09/08/20 08:00 60 09/08/20 07:59 97.5 62 18 113/49 (70) 96 Intake and Output 09/08/20 09/09/20 18:59 06:59 Intake Total 150 ml 240 ml Output Total 3000 ml 23 ml Balance -2850 ml 217 ml Intake Oral 150 ml 240 ml Output Urine Total 23 ml Hemodialysis UF 3000 ml Laboratory Tests Test 09/08/20 11:21 09/08/20 16:41 09/08/20 21:57 09/09/20 05:20 POC Whole Blood Glucose 94 MG/DL (74-106) 84 MG/DL (74-106) Pending White Blood Count Pending Red Blood Count Pending Hemoglobin Pending Hematocrit Pending Mean Corpuscular Volume Pending Mean Corpuscular Hemoglobin Pending Mean Corpuscular Hemoglobin Concent Pending Red Cell Distribution Width Pending Platelet Count Pending Mean Platelet Volume Pending Neutrophils (%) (Auto) Pending Lymphocytes (%) (Auto) Pending Monocytes (%) (Auto) Pending Eosinophils (%) (Auto) Pending Basophils (%) (Auto) Pending Sodium Level Pending Potassium Level Pending Chloride Level Pending Carbon Dioxide Level Pending Blood Urea Nitrogen Pending Creatinine Pending Estimat Glomerular Filtration Rate Pending Glucose Level Pending Calcium Level Pending Phosphorus Level Pending Magnesium Level Pending Total Bilirubin Pending Aspartate Amino Transf (AST/SGOT) Pending Alanine Aminotransferase (ALT/SGPT) Pending Alkaline Phosphatase Pending Total Protein Pending Albumin Pending Globulin Pending Test 09/09/20 06:11 POC Whole Blood Glucose Pending Objective HEAD AND NECK: No JVD. LUNGS: Coarse rhonchi, bibasilar rales.Right chest PermCath CARDIOVASCULAR: Regular S1 and S2 with no gallop. ABDOMEN: Soft. EXTREMITIES: Bilateral 2+ pitting edema and bandage on both legs Sina Paulson MD Sep 09, 2020 07:29
[2020-09-09 07:45] LABS: ALANINE AMINOTRANSFERASE < 6 U/L (12-78); ALBUMIN 2.4 G/DL (3.4-5.0); ALBUMIN/GLOBULIN RATIO 0.6 (1.0-2.7); ALKALINE PHOSPHATASE 123 U/L (46-116); ANION GAP 9 mmol/L (5-15); ASPARTATE AMINO TRANSFERASE 17 U/L (15-37); BILIRUBIN,TOTAL 0.8 MG/DL (0.2-1.0); BLOOD UREA NITROGEN 48 mg/dL (7-18); CALCIUM 8.2 MG/DL (8.5-10.1); CARBON DIOXIDE 28 MMOL/L (21-32); CHLORIDE 99 MMOL/L (98-107); CREATININE 3.6 MG/DL (0.55-1.30); PHOSPHORUS 4.7 MG/DL (2.5-4.9); SODIUM 136 MMOL/L (136-145)
[2020-09-09 08:00] VITALS: BP 110/74
[2020-09-09] MEDS: Heparin 5000 units/ml inj SUBQ SCH ×2 (09:00→20:46)
[2020-09-09] MEDS: Allopurinol 100mg Tab ORAL SCH (09:11)
[2020-09-09] MEDS: Indomethacin 25mg cap ORAL SCH ×3 (09:11→17:23)
[2020-09-09 12:00] VITALS: BP 102/53
--- NOTE | 2020-09-09 12:26 | Pulmonology Progress Note ---
Subjective ROS Limited/Unobtainable: No Constitutional: Reports: no symptoms HEENT: Repors: no symptoms Respiratory: Reports: no symptoms Allergies: Coded Allergies: No Known Allergies (Unverified , 10/10/19) All Systems: reviewed and negative except above Objective Last 24 Hour Vital Signs Date Time Temp Pulse Resp B/P (MAP) Pulse Ox O2 Delivery O2 Flow Rate FiO2 09/09/20 09:00 Nasal Cannula 2.0 Nasal Cannula 2.0 09/09/20 08:00 60 09/09/20 08:00 98.1 64 20 110/74 (86) 96 09/09/20 07:00 96 Nasal Cannula 2.0 28 09/09/20 07:00 64 18 96 Nasal Cannula 2.0 28 09/09/20 04:00 97.9 61 20 93/48 (63) 98 09/09/20 04:00 64 09/09/20 03:38 32 09/09/20 00:00 96.6 61 16 103/62 (76) 96 09/09/20 00:00 60 09/08/20 22:36 97.0 63 13 99/49 (66) 96 09/08/20 21:00 Nasal Cannula 2.0 Nasal Cannula 2.0 09/08/20 20:04 96 Nasal Cannula 2.0 28 09/08/20 20:04 67 18 96 Nasal Cannula 2.0 28 09/08/20 20:00 61 09/08/20 20:00 97.0 63 18 99/49 (66) 96 09/08/20 16:00 64 09/08/20 16:00 97.9 64 18 95/44 (61) 96 Intake and Output 09/08/20 09/09/20 19:00 07:00 Intake Total 150 ml 240 ml Output Total 3000 ml 23 ml Balance -2850 ml 217 ml Intake Oral 150 ml 240 ml Output Urine Total 23 ml Hemodialysis UF 3000 ml General Appearance: WD/WN HEENT: normocephalic, atraumatic Respiratory: chest wall non-tender, lungs clear Breasts: no masses Cardiovascular: normal peripheral pulses Abdomen: normal bowel sounds, soft, non tender Genitourinary: normal external genitalia Extremities: no cyanosis, no clubbing, other - right knee swelling and warmth 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 Laboratory Tests 09/08/20 16:41: POC Whole Blood Glucose 84 09/08/20 21:57: POC Whole Blood Glucose [Pending] 09/09/20 05:20: White Blood Count 8.9, Red Blood Count 2.84L, Hemoglobin 8.2L, Hematocrit 27.5L, Mean Corpuscular Volume 97, Mean Corpuscular Hemoglobin 28.9, Mean Corpuscular Hemoglobin Concent 29.8L, Red Cell Distribution Width 17.2H, Platelet Count 76L, Mean Platelet Volume 8.7, Neutrophils (%) (Auto) , Lymphocytes (%) (Auto) , Monocytes (%) (Auto) , Eosinophils (%) (Auto) , Basophils (%) (Auto) , Differential Total Cells Counted 100, Neutrophils % (Manual) 83H, Lymphocytes % (Manual) 7L, Monocytes % (Manual) 9, Eosinophils % (Manual) 1, Basophils % (Manual) 0, Band Neutrophils 0, Platelet Estimate DecreasedL, Platelet Morphology Normal, Hypochromasia 1+, Anisocytosis 1+, Macrocytosis 1+, Sodium Level 136, Potassium Level 4.0, Chloride Level 99, Carbon Dioxide Level 28, Anion Gap 9, Blood Urea Nitrogen 48H, Creatinine 3.6H, Estimat Glomerular Filtration Rate 12.5, Glucose Level 75, Calcium Level 8.2L, Phosphorus Level 4.7, Magnesium Level 2.2, Total Bilirubin 0.8, Aspartate Amino Transf (AST/SGOT) 17, Alanine Aminotransferase (ALT/SGPT) < 6L, Alkaline Phosphatase 123H, Total Protein 6.3L, Albumin 2.4L, Globulin 3.9, Albumin/Globulin Ratio 0.6L 09/09/20 06:11: POC Whole Blood Glucose [Pending] Current Medications Medications (Trade) Dose Ordered Sig/Braed[place] Route PRN Reason Start Time Stop Time Status Last Admin Dose Admin Acetaminophen (Tylenol) 650 mg Q4H PRN ORAL FEVER 08/30/20 23:45 09/29/20 23:44 Acetaminophen/ Hydrocodone Bitart ([place] 5/325) 1 tab Q6H PRN ORAL Severe Pain (Pain Scale 7-10) 09/09/20 12:15 09/16/20 12:14 Albuterol/ Ipratropium (Albuterol/ Ipratropium) 3 ml Q4H PRN HHN Shortness of Breath 09/07/20 09:00 09/12/20 08:59 Allopurinol (Zyloprim) 100 mg DAILY ORAL 09/09/20 09:00 10/09/20 08:59 09/09/20 09:11 Calcium Acetate (Phoslo) 667 mg TIAC ORAL 09/08/20 11:30 12/07/20 11:29 09/09/20 06:36 Chlorhexidine Gluconate (Josiane-Hex 2%) 1 applic DAILY@2000 TOPIC 09/06/20 20:00 12/05/20 19:59 09/08/20 20:00 Dextrose (Dextrose 50%) 25 ml Q30M PRN IV Hypoglycemia 08/30/20 23:45 11/28/20 23:44 Dextrose (Dextrose 50%) 50 ml Q30M PRN IV Hypoglycemia 08/30/20 23:45 11/28/20 23:44 Epoetin Shlomo (Epoetin Shlomo(ESRD on dialysis)) 10,000 unit TUE-TUE-TUE SUBQ 09/08/20 21:00 12/07/20 20:59 09/08/20 21:00 Folic Acid (Folate) 3 mg DAILY ORAL 09/02/20 09:00 10/02/20 08:59 09/09/20 09:10 Heparin Sodium (Porcine) (Heparin 5000 units/ml) 5,000 units EVERY 12 HOURS SUBQ 08/31/20 09:00 10/15/20 08:59 09/06/20 00:16 Indomethacin (Indocin) 25 mg THREE TIMES A DAY ORAL 09/04/20 13:00 10/04/20 12:59 09/09/20 09:11 Insulin Aspart (NovoLOG) BEFORE MEALS AND HS SUBQ 08/31/20 06:30 11/29/20 06:29 09/04/20 21:17 Iron Sucrose 100 mg/Sodium Chloride 60 ml @ 240 mls/hr BEDTIME IVPB 09/08/20 21:00 09/12/20 21:14 09/08/20 21:00 Levothyroxine Sodium (Synthroid) 100 mcg DAILY@0630 ORAL 09/02/20 06:30 10/02/20 06:29 09/09/20 06:37 Metoclopramide HCl (Reglan) 5 mg THREE TIMES A DAY ORAL 08/31/20 13:00 09/30/20 12:59 09/09/20 09:10 Ondansetron HCl (Zofran) 4 mg Q6H PRN IVP Nausea & Vomiting 08/30/20 23:45 09/29/20 23:44 Pantoprazole (Protonix) 40 mg EVERY 12 HOURS ORAL 08/31/20 21:00 09/30/20 20:59 09/09/20 09:10 Polyethylene Glycol (Miralax) 17 gm DAILYPRN PRN ORAL Constipation 08/30/20 23:45 09/29/20 23:44 Promethazine HCl/ Codeine (Phenergan with Codeine) 5 ml Q6H PRN ORAL cough 08/30/20 23:45 09/29/20 23:44 Assessment/Plan Problems: (1) Acute on chronic diastolic (congestive) heart failure (2) Gout (3) Renal failure (ARF), acute on chronic (4) Diabetes mellitus (5) Left bundle branch block (LBBB) (6) Cardiac left ventricular ejection fraction greater than 40 percent (7) Grade I diastolic dysfunction (8) History of hypertension Assessment/Plan HD on 09/08, 3 liters removed HD still c/o pain across upper torso and across shoulders. O2 titrate to keep sat > 92%, currently down to O2 via NC thoracentesis done, 600 cc removed from right side. DVT prophylaxis Tiana Cool MD Sep 09, 2020 12:26
--- NOTE | 2020-09-09 12:34 | Nephrology Progress Note ---
Assessment/Plan Problem List: (1) Renal failure (ARF), acute on chronic (2) Hyperkalemia (3) Hypothyroidism (4) Acute on chronic diastolic (congestive) heart failure (5) Diabetic nephropathy (6) Pneumonia Assessment: Leukocytosis, abnormal chest x-ray (7) Anemia Assessment 1) Renal failure (ARF), acute on chronic (2) Diabetes mellitus (3) Hypoglycemia (4) Hyperkalemia (5) Diabetic nephropathy (6) H/o Pleural effusion (7) Morbid obesity (8) Low Iron Anemia (9) HypoThyroidism Plan September 09: Patient was dialyzed yesterday. Due for dialysis and ultrafiltration tomorrow. Will start theophylline for although lumbar diet and also improvement of the heart rate. Recheck TSH in a.m. Continue as is. DC Chan catheter. September 08: Patient due for dialysis and ultrafiltration today. Labs reviewed. PhosLo given. Continue as is. September 07: Patient was dialyzed 2 days in a row. Ultra filtrated 3 L a day. Patient continues to be edematous however much less. Will dialyze again tavo rrow with ultrafiltration. Will monitor renal parameters. September 06: Patient was dialyzed yesterday. Ultrafiltration was done. Patient remains edematous. Will do another dialysis and aim 3 L fluid removal as tolerates. Discontinue IV Lasix and oral hydralazine. Will adjust blood pressure medication as needed. Discussed with RN, antibiotics intravenously if possible should be changed to oral since there is no IV line available. 1 dose of Venofer 200 mg ordered to be given during dialysis. Subcutaneous Epogen ordered for anemia. September 05: New 24-hour urine suggestive of creatinine clearance of 3. Patient due for insertion of dialysis catheter. Hemodialysis and ultrafiltration after insertion of catheter. September 04: New 24-hour urine test is in process. Discussed with RN. Patient was short of breath overnight. ABG ordered. 1 dose of Zaroxolyn ordered. Patient has fluid overload, and need ultrafiltration. Blood cultures negative. Leukocytosis resolved. Will order placement of permacath and dialysis and ultrafiltration. September 03: The 24-hour urine results appears to be an error in view of total volume compared to intake and output records. Today's labs reviewed. Serum creatinine higher. Talk to the nursing charge of the floor and will order another 24-hour urine collection. Meanwhile continue per ID treatment for UTI and leukocytosis. Dexamethasone on the medication list was questioned. Patient may require dialysis if continues to have worsening renal parameters. September 02: Consent for dialysis catheter is taken. Catheter placement deferred due to leukocytosis. Surveillance blood culture ordered. Urine culture ordered. Blood pressure medication adjusted. 24-hour urine for creatinine clearance and total protein pending. Previously: Chan Cath 24 H CrCl and total protein ordered Off IV fluids, on IV Lasix Adjust BP meds Previous 2D echocardiogram ejection fraction is reported to 50% Previous Kidney ultrasound noted. Current kidney ultrasound results below Anemia work-up As needed Kayexalate for high potassium Keep blood pressure and blood sugar in check Monitor renal parameters Requires HD treatment [facility] KIDNEY IMPRESSION: 1. Ascites. 2. Bilateral pleural effusions. 3. Complex right renal cysts of uncertain etiology. This complex cyst is unchanged from the study of 01/12/2020. 4. Mildly atrophic right kidney. 5. Magnetic resonance imaging of the abdomen with gadolinium administration is advised for further evaluation of complex right renal cyst. Subjective ROS Limited/Unobtainable: No Constitutional: Reports: malaise Objective Objective Last 24 Hour Vital Signs Date Time Temp Pulse Resp B/P (MAP) Pulse Ox O2 Delivery O2 Flow Rate FiO2 09/09/20 09:00 Nasal Cannula 2.0 Nasal Cannula 2.0 09/09/20 08:00 60 09/09/20 08:00 98.1 64 20 110/74 (86) 96 09/09/20 07:00 96 Nasal Cannula 2.0 28 09/09/20 07:00 64 18 96 Nasal Cannula 2.0 28 09/09/20 04:00 97.9 61 20 93/48 (63) 98 09/09/20 04:00 64 09/09/20 03:38 32 09/09/20 00:00 96.6 61 16 103/62 (76) 96 09/09/20 00:00 60 09/08/20 22:36 97.0 63 13 99/49 (66) 96 09/08/20 21:00 Nasal Cannula 2.0 Nasal Cannula 2.0 09/08/20 20:04 96 Nasal Cannula 2.0 28 09/08/20 20:04 67 18 96 Nasal Cannula 2.0 28 09/08/20 20:00 61 09/08/20 20:00 97.0 63 18 99/49 (66) 96 09/08/20 16:00 64 09/08/20 16:00 97.9 64 18 95/44 (61) 96 Intake and Output 09/08/20 09/09/20 19:00 07:00 Intake Total 150 ml 240 ml Output Total 3000 ml 23 ml Balance -2850 ml 217 ml Intake Oral 150 ml 240 ml Output Urine Total 23 ml Hemodialysis UF 3000 ml Current Medications Medications (Trade) Dose Ordered Sig/Bra[place] Route PRN Reason Start Time Stop Time Status Last Admin Dose Admin Acetaminophen (Tylenol) 650 mg Q4H PRN ORAL FEVER 08/30/20 23:45 09/29/20 23:44 Acetaminophen/ Hydrocodone Bitart ([place] 5/325) 1 tab Q6H PRN ORAL Severe Pain (Pain Scale 7-10) 09/09/20 12:15 09/16/20 12:14 Albuterol/ Ipratropium (Albuterol/ Ipratropium) 3 ml Q4H PRN HHN Shortness of Breath 09/07/20 09:00 09/12/20 08:59 Allopurinol (Zyloprim) 100 mg DAILY ORAL 09/09/20 09:00 10/09/20 08:59 09/09/20 09:11 Calcium Acetate (Phoslo) 667 mg TIAC ORAL 09/08/20 11:30 12/07/20 11:29 09/09/20 06:36 Chlorhexidine Gluconate (Josiane-Hex 2%) 1 applic DAILY@1999 TOPIC 09/06/20 20:00 12/05/20 19:59 09/08/20 20:00 Dextrose (Dextrose 50%) 25 ml Q30M PRN IV Hypoglycemia 08/30/20 23:45 11/28/20 23:44 Dextrose (Dextrose 50%) 50 ml Q30M PRN IV Hypoglycemia 08/30/20 23:45 11/28/20 23:44 Epoetin Shlomo (Epoetin Shlomo(ESRD on dialysis)) 10,000 unit TUE-TUE-TUE SUBQ 09/08/20 21:00 12/07/20 20:59 09/08/20 21:00 Folic Acid (Folate) 3 mg DAILY ORAL 09/02/20 09:00 10/02/20 08:59 09/09/20 09:10 Heparin Sodium (Porcine) (Heparin 5000 units/ml) 5,000 units EVERY 12 HOURS SUBQ 08/31/20 09:00 10/15/20 08:59 09/06/20 00:16 Indomethacin (Indocin) 25 mg THREE TIMES A DAY ORAL 09/04/20 13:00 10/04/20 12:59 09/09/20 09:11 Insulin Aspart (NovoLOG) BEFORE MEALS AND HS SUBQ 08/31/20 06:30 11/29/20 06:29 09/04/20 21:17 Iron Sucrose 100 mg/Sodium Chloride 60 ml @ 240 mls/hr BEDTIME IVPB 09/08/20 21:00 09/12/20 21:14 09/08/20 21:00 Levothyroxine Sodium (Synthroid) 100 mcg DAILY@0630 ORAL 09/02/20 06:30 10/02/20 06:29 09/09/20 06:37 Metoclopramide HCl (Reglan) 5 mg THREE TIMES A DAY ORAL 08/31/20 13:00 09/30/20 12:59 09/09/20 09:10 Ondansetron HCl (Zofran) 4 mg Q6H PRN IVP Nausea & Vomiting 08/30/20 23:45 09/29/20 23:44 Pantoprazole (Protonix) 40 mg EVERY 12 HOURS ORAL 08/31/20 21:00 09/30/20 20:59 09/09/20 09:10 Polyethylene Glycol (Miralax) 17 gm DAILYPRN PRN ORAL Constipation 08/30/20 23:45 09/29/20 23:44 Promethazine HCl/ Codeine (Phenergan with Codeine) 5 ml Q6H PRN ORAL cough 08/30/20 23:45 09/29/20 23:44 Theophylline (Theophylline) 80 mg Q8HR ORAL 09/09/20 14:00 12/08/20 13:59 Laboratory Tests 09/08/20 16:41: POC Whole Blood Glucose 84 09/08/20 21:57: POC Whole Blood Glucose [Pending] 09/09/20 05:20: White Blood Count 8.9, Red Blood Count 2.84L, Hemoglobin 8.2L, Hematocrit 27.5L, Mean Corpuscular Volume 97, Mean Corpuscular Hemoglobin 28.9, Mean Corpuscular Hemoglobin Concent 29.8L, Red Cell Distribution Width 17.2H, Platelet Count 76L, Mean Platelet Volume 8.7, Neutrophils (%) (Auto) , Lymphocytes (%) (Auto) , Monocytes (%) (Auto) , Eosinophils (%) (Auto) , Basophils (%) (Auto) , Differential Total Cells Counted 100, Neutrophils % (Manual) 83H, Lymphocytes % (Manual) 7L, Monocytes % (Manual) 9, Eosinophils % (Manual) 1, Basophils % (Manual) 0, Band Neutrophils 0, Platelet Estimate DecreasedL, Platelet Morphology Normal, Hypochromasia 1+, Anisocytosis 1+, Macrocytosis 1+, Sodium Level 136, Potassium Level 4.0, Chloride Level 99, Carbon Dioxide Level 28, Anion Gap 9, Blood Urea Nitrogen 48H, Creatinine 3.6H, Estimat Glomerular Filtration Rate 12.5, Glucose Level 75, Calcium Level 8.2L, Phosphorus Level 4.7, Magnesium Level 2.2, Total Bilirubin 0.8, Aspartate Amino Transf (AST/SGOT) 17, Alanine Aminotransferase (ALT/SGPT) < 6L, Alkaline Phosphatase 123H, Total Protein 6.3L, Albumin 2.4L, Globulin 3.9, Albumin/Globulin Ratio 0.6L 09/09/20 06:11: POC Whole Blood Glucose [Pending] Height (Feet): 5 Height (Inches): 10.00 Weight (Pounds): 218 General Appearance: no apparent distress, lethargic Cardiovascular: normal rate, bradycardia Respiratory/Chest: decreased breath sounds Abdomen: soft Jay Severino MD Sep 09, 2020 12:34
[2020-09-09] MEDS: HYDROcodone/Acetamin 5/325 tab ORAL PRN (13:04)
[2020-09-09] MEDS: Theophylline 80mg/15ml ORAL SCH ×2 (13:04→22:01)
--- NOTE | 2020-09-09 13:14 | General Progress Note ---
Subjective Constitutional: Reports: weakness Respiratory: Reports: shortness of breath Allergies: Coded Allergies: No Known Allergies (Unverified , 10/10/19) All Systems: reviewed and negative except above Subjective o2nc calm Objective Last 24 Hour Vital Signs Date Time Temp Pulse Resp B/P (MAP) Pulse Ox O2 Delivery O2 Flow Rate FiO2 09/09/20 09:00 Nasal Cannula 2.0 Nasal Cannula 2.0 09/09/20 08:00 60 09/09/20 08:00 98.1 64 20 110/74 (86) 96 09/09/20 07:00 96 Nasal Cannula 2.0 28 09/09/20 07:00 64 18 96 Nasal Cannula 2.0 28 09/09/20 04:00 97.9 61 20 93/48 (63) 98 09/09/20 04:00 64 09/09/20 03:38 32 09/09/20 00:00 96.6 61 16 103/62 (76) 96 09/09/20 00:00 60 09/08/20 22:36 97.0 63 13 99/49 (66) 96 09/08/20 21:00 Nasal Cannula 2.0 Nasal Cannula 2.0 09/08/20 20:04 96 Nasal Cannula 2.0 28 09/08/20 20:04 67 18 96 Nasal Cannula 2.0 28 09/08/20 20:00 61 09/08/20 20:00 97.0 63 18 99/49 (66) 96 09/08/20 16:00 64 09/08/20 16:00 97.9 64 18 95/44 (61) 96 Intake and Output 09/08/20 09/09/20 19:00 07:00 Intake Total 150 ml 240 ml Output Total 3000 ml 23 ml Balance -2850 ml 217 ml Intake Oral 150 ml 240 ml Output Urine Total 23 ml Hemodialysis UF 3000 ml Laboratory Tests 09/08/20 16:41: POC Whole Blood Glucose 84 09/08/20 21:57: POC Whole Blood Glucose [Pending] 09/09/20 05:20: White Blood Count 8.9, Red Blood Count 2.84L, Hemoglobin 8.2L, Hematocrit 27.5L, Mean Corpuscular Volume 97, Mean Corpuscular Hemoglobin 28.9, Mean Corpuscular Hemoglobin Concent 29.8L, Red Cell Distribution Width 17.2H, Platelet Count 76L, Mean Platelet Volume 8.7, Neutrophils (%) (Auto) , Lymphocytes (%) (Auto) , Monocytes (%) (Auto) , Eosinophils (%) (Auto) , Basophils (%) (Auto) , Differential Total Cells Counted 100, Neutrophils % (Manual) 83H, Lymphocytes % (Manual) 7L, Monocytes % (Manual) 9, Eosinophils % (Manual) 1, Basophils % (Manual) 0, Band Neutrophils 0, Platelet Estimate DecreasedL, Platelet Morphology Normal, Hypochromasia 1+, Anisocytosis 1+, Macrocytosis 1+, Sodium Level 136, Potassium Level 4.0, Chloride Level 99, Carbon Dioxide Level 28, Anion Gap 9, Blood Urea Nitrogen 48H, Creatinine 3.6H, Estimat Glomerular Filtration Rate 12.5, Glucose Level 75, Calcium Level 8.2L, Phosphorus Level 4.7, Magnesium Level 2.2, Total Bilirubin 0.8, Aspartate Amino Transf (AST/SGOT) 17, Alanine Aminotransferase (ALT/SGPT) < 6L, Alkaline Phosphatase 123H, Total Protein 6.3L, Albumin 2.4L, Globulin 3.9, Albumin/Globulin Ratio 0.6L 09/09/20 06:11: POC Whole Blood Glucose [Pending] 09/09/20 12:59: POC Whole Blood Glucose [Pending] Height (Feet): 5 Height (Inches): 10.00 Weight (Pounds): 218 General Appearance: lethargic EENT: normal ENT inspection Neck: normal alignment Cardiovascular: normal peripheral pulses, normal rate, regular rhythm Respiratory/Chest: chest wall non-tender, lungs clear, normal breath sounds Abdomen: normal bowel sounds, soft Extremities: normal inspection Edema: no edema noted Arm (L), no edema noted Arm (R), no edema noted Leg (L), no edema noted Leg (R), no edema noted Pedal (L), no edema noted Pedal (R), no edema noted Generalized Neurologic: motor weakness Skin: normal pigmentation, warm/dry Assessment/Plan Problem List: (1) UTI (urinary tract infection) ICD Codes: N39.0 - Urinary tract infection, site not specified SNOMED: 75769370 (2) Acute respiratory failure ICD Codes: J96.00 - Acute respiratory failure, unspecified whether with hypoxia or hypercapnia SNOMED: 11294362 (3) History of hypertension ICD Codes: Z86.79 - Personal history of other diseases of the circulatory system SNOMED: 268198410 (4) Diabetes mellitus ICD Codes: E11.9 - Type 2 diabetes mellitus without complications SNOMED: 54001912 (5) Renal failure (ARF), acute on chronic ICD Codes: N17.9 - Acute kidney failure, unspecified; N18.9 - Chronic kidney disease, unspecified SNOMED: 407219346 Status: stable, progressing Assessment/Plan: o2 pulm tx abx pt diet cbc bmp am aru eval dc if clear Dyllan King DO Sep 09, 2020 13:14
[2020-09-09 15:07] LABS: APPEARANCE,URINE VERY CLOUDY; BILIRUBIN, URINE 2+ (NEGATIVE); GLUCOSE, URINE (UA) NEGATIVE (NEGATIVE); KETONES,URINE 2+ (NEGATIVE); LEUKOCYTE ESTERASE ,URINE 3+ (NEGATIVE); NITRITE,URINE POSITIVE (NEGATIVE); PH,URINE 5 (4.5-8.0); PROTEIN,URINE 3+ (NEGATIVE); UROBILINOGEN,URINE 1 MG/DL (0.0-1.0)
--- NOTE | 2020-09-09 15:07 | Surgery Progress Note ---
Surgery Progress Note Subjective Additional Comments no acute events comfortable stable no n/v Objective Last 24 Hour Vital Signs Date Time Temp Pulse Resp B/P (MAP) Pulse Ox O2 Delivery O2 Flow Rate FiO2 09/09/20 12:00 96.8 62 19 102/53 (69) 100 09/09/20 12:00 62 09/09/20 09:00 Nasal Cannula 2.0 Nasal Cannula 2.0 09/09/20 08:00 60 09/09/20 08:00 98.1 64 20 110/74 (86) 96 09/09/20 07:00 96 Nasal Cannula 2.0 28 09/09/20 07:00 64 18 96 Nasal Cannula 2.0 28 09/09/20 04:00 97.9 61 20 93/48 (63) 98 09/09/20 04:00 64 09/09/20 03:38 32 09/09/20 00:00 96.6 61 16 103/62 (76) 96 09/09/20 00:00 60 09/08/20 22:36 97.0 63 13 99/49 (66) 96 09/08/20 21:00 Nasal Cannula 2.0 Nasal Cannula 2.0 09/08/20 20:04 96 Nasal Cannula 2.0 28 09/08/20 20:04 67 18 96 Nasal Cannula 2.0 28 09/08/20 20:00 61 09/08/20 20:00 97.0 63 18 99/49 (66) 96 09/08/20 16:00 64 09/08/20 16:00 97.9 64 18 95/44 (61) 96 I&O Intake and Output 09/08/20 09/09/20 19:00 07:00 Intake Total 150 ml 240 ml Output Total 3000 ml 23 ml Balance -2850 ml 217 ml Intake Oral 150 ml 240 ml Output Urine Total 23 ml Hemodialysis UF 3000 ml Dressing: saturated Cardiovascular: RSR Respiratory: decreased breath sounds Abdomen: non-tender, present bowel sounds Extremities: edema, no tenderness, no cyanosis Laboratory Tests Test 09/08/20 16:41 09/08/20 21:57 09/09/20 05:20 09/09/20 06:11 POC Whole Blood Glucose 84 MG/DL (74-106) Pending Pending White Blood Count 8.9 K/UL (4.8-10.8) Red Blood Count 2.84 M/UL (4.20-5.40) L Hemoglobin 8.2 G/DL (12.0-16.0) L Hematocrit 27.5 % (37.0-47.0) L Mean Corpuscular Volume 97 FL (80-99) Mean Corpuscular Hemoglobin 28.9 PG (27.0-31.0) Mean Corpuscular Hemoglobin Concent 29.8 G/DL (32.0-36.0) L Red Cell Distribution Width 17.2 % (11.6-14.8) H Platelet Count 76 K/UL (150-450) L Mean Platelet Volume 8.7 FL (6.5-10.1) Neutrophils (%) (Auto) % (45.0-75.0) Lymphocytes (%) (Auto) % (20.0-45.0) Monocytes (%) (Auto) % (1.0-10.0) Eosinophils (%) (Auto) % (0.0-3.0) Basophils (%) (Auto) % (0.0-2.0) Differential Total Cells Counted 100 Neutrophils % (Manual) 83 % (45-75) H Lymphocytes % (Manual) 7 % (20-45) L Monocytes % (Manual) 9 % (1-10) Eosinophils % (Manual) 1 % (0-3) Basophils % (Manual) 0 % (0-2) Band Neutrophils 0 % (0-8) Platelet Estimate Decreased L Platelet Morphology Normal Hypochromasia 1+ Anisocytosis 1+ Macrocytosis 1+ Sodium Level 136 MMOL/L (136-145) Potassium Level 4.0 MMOL/L (3.5-5.1) Chloride Level 99 MMOL/L (98-107) Carbon Dioxide Level 28 MMOL/L (21-32) Anion Gap 9 mmol/L (5-15) Blood Urea Nitrogen 48 mg/dL (7-18) H Creatinine 3.6 MG/DL (0.55-1.30) H Estimat Glomerular Filtration Rate 12.5 mL/min (>60) Glucose Level 75 MG/DL (74-106) Calcium Level 8.2 MG/DL (8.5-10.1) L Phosphorus Level 4.7 MG/DL (2.5-4.9) Magnesium Level 2.2 MG/DL (1.8-2.4) Total Bilirubin 0.8 MG/DL (0.2-1.0) Aspartate Amino Transf (AST/SGOT) 17 U/L (15-37) Alanine Aminotransferase (ALT/SGPT) < 6 U/L (12-78) L Alkaline Phosphatase 123 U/L (46-116) H Total Protein 6.3 G/DL (6.4-8.2) L Albumin 2.4 G/DL (3.4-5.0) L Globulin 3.9 g/dL Albumin/Globulin Ratio 0.6 (1.0-2.7) L Test 09/09/20 12:59 09/09/20 14:58 POC Whole Blood Glucose Pending Urine Color Pending Urine Appearance Pending Urine pH Pending Urine Specific [place] Pending Urine Protein Pending Urine Glucose (UA) Pending Urine Ketones Pending Urine Blood Pending Urine Nitrite Pending Urine Bilirubin Pending Urine Urobilinogen Pending Urine Leukocyte Esterase Pending Urine RBC Pending Urine WBC Pending Urine Squamous Epithelial Cells Pending Urine Bacteria Pending Plan Problems: (1) Acute on chronic diastolic (congestive) heart failure (2) Anemia (3) Acute respiratory failure Assessment & Plan: Large right pleural effusion persists, unchanged. Bilateral interstitial and airspace edema, cardiomegaly persists, probably unchanged allowing for differences in technique and inspiration (4) ACS (acute coronary syndrome) (5) History of hypertension (6) Moderate pulmonary arterial systolic hypertension (7) Left bundle branch block (LBBB) (8) Diabetes mellitus (9) Diabetic nephropathy (10) Renal failure (ARF), acute on chronic (11) Hyperkalemia (12) Bacteremia (13) CAD (coronary artery disease) (14) Hypothyroidism (15) Cardiac left ventricular ejection fraction greater than 40 percent (16) Grade I diastolic dysfunction (17) UTI (urinary tract infection) (18) Ulcers of both lower legs (19) Open wounds involving multiple regions of lower extremity Assessment & Plan: Patient identified admission having bilateral lower extremity edema open wounds as well as necrotic ulcerations. Patient states she has had this for some time now and acutely worsening as well. Bilateral lower leg wounds do to blisters from edema. Right medial lower leg wound 2.1x4.2x0.2 dark brown scab . Right anterior lower leg wound 5.6x5.3x0.2 pink wound bed. Right distal anterior lower leg 4.0x6.0x0.2 pink wound bed . Large amount serous drainage right leg wounds , Xeroform ,gauze,abd pad and kerlix applied change every shift. Left lower leg wound 3.7x5.0x0.3 100% green slough large amount serous drainage noted with small blisters ifeoma wound, Thera Honey, gauze,abd pad and kerlix applied, change every shift. Local wound care plan initiate Nutritional optimization Turn every 2 hours Elevate extremities Thank you will follow recommendations Right deep veins: Unremarkable. No DVT in the right common femoral, femoral, proximal deep femoral or popliteal veins. The veins demonstrate normal color flow, are normally compressible, with normal phasic flow and/or augmentation response. Right superficial veins: Unremarkable. No thrombus in the visualized right great saphenous vein. Left deep veins: Unremarkable. No DVT in the left common femoral, femoral, proximal deep femoral or popliteal veins. The veins demonstrate normal color flow, are normally compressible, with normal phasic flow and/or augmentation response. Left superficial veins: Unremarkable. No thrombus in the visualized left great saphenous vein. Soft tissues: No acute findings. No popliteal cyst. IMPRESSION: Normal bilateral lower extremity duplex venous ultrasound. DAILY ESTIMATED NEEDS: Needs based on ARF, now HD 65.7kg abw 25-30 kcals/kg 5099-3717 total kcals 1.25-1.8 g protein/kg 82-118 g total protein Fluid per MD, HD pending NUTRITION DIAGNOSIS: Increased pro needs r/t renal dysfunction as evidenced by pt w/ ARF, w/ now pending HD, K on adm (5.8), elev BUN (81), elev Creat (3.8), elev phos and mg. CURRENT DIET:Renal/ CCHO MED PO DIET RECOMMENDATIONS: Renal / CCHO LOW diet + high pro snacks in b/w meals ADDITIONAL RECOMMENDATIONS: 1) Maintain calibrated bed scale wts 2) High pro snacks in b/w meals 3) Rec WC eval-> add nephrovite 1 tab daily Vit C per Omar Jolley Sep 09, 2020 15:07
[2020-09-09 15:11] LABS: COLOR,URINE AMBER
[2020-09-09 16:00] VITALS: BP 98/46
--- NOTE | 2020-09-09 18:00 | General Progress Note ---
Subjective Allergies: Coded Allergies: No Known Allergies (Unverified , 10/10/19) All Systems: reviewed and negative except above Subjective events noted - interval notes reviewed no more hypoglycemia Item Value Date Time Bedside Blood Glucose 80 mg/dl 09/09/20 1130 Bedside Blood Glucose 85 mg/dl 09/09/20 0630 Bedside Blood Glucose 115 mg/dl 09/08/20 2100 Bedside Blood Glucose 84 mg/dl 09/08/20 1630 Bedside Blood Glucose 94 mg/dl 09/08/20 1130 Objective Last 24 Hour Vital Signs Date Time Temp Pulse Resp B/P (MAP) Pulse Ox O2 Delivery O2 Flow Rate FiO2 09/09/20 16:00 60 09/09/20 16:00 97.9 61 18 98/46 (63) 96 09/09/20 12:00 96.8 62 19 102/53 (69) 100 09/09/20 12:00 62 09/09/20 09:00 Nasal Cannula 2.0 Nasal Cannula 2.0 09/09/20 08:00 60 09/09/20 08:00 98.1 64 20 110/74 (86) 96 09/09/20 07:00 96 Nasal Cannula 2.0 28 09/09/20 07:00 64 18 96 Nasal Cannula 2.0 28 09/09/20 04:00 97.9 61 20 93/48 (63) 98 09/09/20 04:00 64 09/09/20 03:38 32 09/09/20 00:00 96.6 61 16 103/62 (76) 96 09/09/20 00:00 60 09/08/20 22:36 97.0 63 13 99/49 (66) 96 09/08/20 21:00 Nasal Cannula 2.0 Nasal Cannula 2.0 09/08/20 20:04 96 Nasal Cannula 2.0 28 09/08/20 20:04 67 18 96 Nasal Cannula 2.0 28 09/08/20 20:00 61 09/08/20 20:00 97.0 63 18 99/49 (66) 96 Intake and Output 09/08/20 09/09/20 19:00 07:00 Intake Total 150 ml 240 ml Output Total 3000 ml 23 ml Balance -2850 ml 217 ml Intake Oral 150 ml 240 ml Output Urine Total 23 ml Hemodialysis UF 3000 ml Laboratory Tests 09/08/20 21:57: POC Whole Blood Glucose [Pending] 09/09/20 05:20: White Blood Count 8.9, Red Blood Count 2.84L, Hemoglobin 8.2L, Hematocrit 27.5L, Mean Corpuscular Volume 97, Mean Corpuscular Hemoglobin 28.9, Mean Corpuscular Hemoglobin Concent 29.8L, Red Cell Distribution Width 17.2H, Platelet Count 76L, Mean Platelet Volume 8.7, Neutrophils (%) (Auto) , Lymphocytes (%) (Auto) , Monocytes (%) (Auto) , Eosinophils (%) (Auto) , Basophils (%) (Auto) , Differential Total Cells Counted 100, Neutrophils % (Manual) 83H, Lymphocytes % (Manual) 7L, Monocytes % (Manual) 9, Eosinophils % (Manual) 1, Basophils % (Manual) 0, Band Neutrophils 0, Platelet Estimate DecreasedL, Platelet Morphology Normal, Hypochromasia 1+, Anisocytosis 1+, Macrocytosis 1+, Sodium Level 136, Potassium Level 4.0, Chloride Level 99, Carbon Dioxide Level 28, Anion Gap 9, Blood Urea Nitrogen 48H, Creatinine 3.6H, Estimat Glomerular Filtration Rate 12.5, Glucose Level 75, Calcium Level 8.2L, Phosphorus Level 4.7, Magnesium Level 2.2, Total Bilirubin 0.8, Aspartate Amino Transf (AST/SGOT) 17, Alanine Aminotransferase (ALT/SGPT) < 6L, Alkaline Phosphatase 123H, Total Protein 6.3L, Albumin 2.4L, Globulin 3.9, Albumin/Globulin Ratio 0.6L 09/09/20 06:11: POC Whole Blood Glucose [Pending] 09/09/20 12:59: POC Whole Blood Glucose [Pending] 09/09/20 14:58: Urine Color [place], Urine Appearance Very cloudy, Urine pH 5, Urine Specific [place] 1.030, Urine Protein 3+H, Urine Glucose (UA) Negative, Urine Ketones 2+H , Urine Blood 5+H, Urine Nitrite PositiveH, Urine Bilirubin 2+H, Urine Ictotest Negative, Urine Urobilinogen 1H, Urine Leukocyte Esterase 3+H, Urine RBC TntcH, Urine WBC 15-20H, Urine Squamous Epithelial Cells ModerateH, Urine Bacteria ManyH 09/09/20 17:11: POC Whole Blood Glucose 79 Height (Feet): 5 Height (Inches): 10.00 Weight (Pounds): 218 General Appearance: no apparent distress Neck: normal alignment Cardiovascular: normal rate Respiratory/Chest: decreased breath sounds Abdomen: normal bowel sounds Objective Current Medications Medications (Trade) Dose Ordered Sig/[place] Route PRN Reason Start Time Stop Time Status Last Admin Dose Admin Acetaminophen (Tylenol) 650 mg Q4H PRN ORAL FEVER 08/30/20 23:45 09/29/20 23:44 Acetaminophen/ Hydrocodone Bitart ([place] 5/325) 1 tab Q6H PRN ORAL Severe Pain (Pain Scale 7-10) 09/09/20 12:15 09/16/20 12:14 09/09/20 13:04 Albuterol/ Ipratropium (Albuterol/ Ipratropium) 3 ml Q4H PRN HHN Shortness of Breath 09/07/20 09:00 09/12/20 08:59 Allopurinol (Zyloprim) 100 mg DAILY ORAL 09/09/20 09:00 10/09/20 08:59 09/09/20 09:11 Calcium Acetate (Phoslo) 667 mg TIAC ORAL 09/08/20 11:30 12/07/20 11:29 09/09/20 16:40 Chlorhexidine Gluconate (Josiane-Hex 2%) 1 applic DAILY@1999 TOPIC 09/06/20 20:00 12/05/20 19:59 09/08/20 20:00 Dextrose (Dextrose 50%) 25 ml Q30M PRN IV Hypoglycemia 08/30/20 23:45 11/28/20 23:44 Dextrose (Dextrose 50%) 50 ml Q30M PRN IV Hypoglycemia 08/30/20 23:45 11/28/20 23:44 Epoetin Shlomo (Epoetin Shlomo(ESRD on dialysis)) 10,000 unit TUE-WED-TUE SUBQ 09/08/20 21:00 12/07/20 20:59 09/08/20 21:00 Folic Acid (Folate) 3 mg DAILY ORAL 09/02/20 09:00 10/02/20 08:59 09/09/20 09:10 Heparin Sodium (Porcine) (Heparin 5000 units/ml) 5,000 units EVERY 12 HOURS SUBQ 08/31/20 09:00 10/15/20 08:59 09/06/20 00:16 Indomethacin (Indocin) 25 mg THREE TIMES A DAY ORAL 09/04/20 13:00 10/04/20 12:59 09/09/20 17:23 Insulin Aspart (NovoLOG) BEFORE MEALS AND HS SUBQ 08/31/20 06:30 11/29/20 06:29 09/04/20 21:17 Iron Sucrose 100 mg/Sodium Chloride 60 ml @ 240 mls/hr BEDTIME IVPB 09/08/20 21:00 09/12/20 21:14 09/08/20 21:00 Levothyroxine Sodium (Synthroid) 100 mcg DAILY@0630 ORAL 09/02/20 06:30 10/02/20 06:29 09/09/20 06:37 Metoclopramide HCl (Reglan) 5 mg THREE TIMES A DAY ORAL 08/31/20 13:00 09/30/20 12:59 09/09/20 17:23 Ondansetron HCl (Zofran) 4 mg Q6H PRN IVP Nausea & Vomiting 08/30/20 23:45 09/29/20 23:44 Pantoprazole (Protonix) 40 mg EVERY 12 HOURS ORAL 08/31/20 21:00 09/30/20 20:59 09/09/20 09:10 Polyethylene Glycol (Miralax) 17 gm DAILYPRN PRN ORAL Constipation 08/30/20 23:45 09/29/20 23:44 Promethazine HCl/ Codeine (Phenergan with Codeine) 5 ml Q6H PRN ORAL cough 08/30/20 23:45 09/29/20 23:44 Theophylline (Theophylline) 80 mg Q8HR ORAL 09/09/20 14:00 12/08/20 13:59 09/09/20 13:04 Assessment/Plan Problem List: (1) Renal failure (ARF), acute on chronic ICD Codes: N17.9 - Acute kidney failure, unspecified; N18.9 - Chronic kidney disease, unspecified SNOMED: 205587850 (2) CAD (coronary artery disease) ICD Codes: I25.10 - Atherosclerotic heart disease of [place] coronary artery without angina pectoris SNOMED: 99228441 (3) Diabetes mellitus ICD Codes: E11.9 - Type 2 diabetes mellitus without complications SNOMED: 59773489 (4) Left bundle branch block (LBBB) ICD Codes: I44.7 - Left bundle-branch block, unspecified SNOMED: 43684147 (5) Hypothyroidism ICD Codes: E03.9 - Hypothyroidism, unspecified SNOMED: 32425519 Status: stable, progressing Assessment/Plan: no need for basal insulin continue Novolog sliding scale ac / hs continue LT4 100 mcg daily repeat thyroid function next week Jake Alexander MD Sep 09, 2020 18:00
[2020-09-09 20:00] VITALS: BP 99/55
[2020-09-09] MEDS: Dyna-Hex 2% Top Sol 2oz TOPIC SCH (20:56)
[2020-09-09] MEDS: Iron Sucrose 100 MG in NS 55 ML IVPB SCH (20:57)
[2020-09-10] VITALS: BP 92/50
[2020-09-10 04:00] VITALS: BP 90/52
[2020-09-10] MEDS: NovoLOG Insulin Flexpen SUBQ SCH ×4 (05:42→21:00)
[2020-09-10] MEDS: Theophylline 80mg/15ml ORAL SCH ×3 (05:45→21:28)
--- NOTE | 2020-09-10 06:21 | General Progress Note ---
Subjective Allergies: Coded Allergies: No Known Allergies (Unverified , 10/10/19) All Systems: reviewed and negative except above Subjective events noted - interval notes reviewed glucose values are stable without hypoglycemia Item Value Date Time Bedside Blood Glucose 88 mg/dl 09/10/20 0542 Bedside Blood Glucose 93 mg/dl 09/09/20 2100 Bedside Blood Glucose 95 mg/dl 09/09/20 1630 Bedside Blood Glucose 80 mg/dl 09/09/20 1130 Bedside Blood Glucose 85 mg/dl 09/09/20 0630 Objective Last 24 Hour Vital Signs Date Time Temp Pulse Resp B/P (MAP) Pulse Ox O2 Delivery O2 Flow Rate FiO2 09/10/20 04:00 60 09/10/20 04:00 97.7 58 16 90/52 (65) 99 09/10/20 00:00 97.9 58 16 92/50 (64) 99 09/10/20 00:00 59 09/09/20 21:00 Nasal Cannula 2.0 Nasal Cannula 2.0 09/09/20 20:00 62 09/09/20 20:00 98.2 61 18 99/55 (70) 99 09/09/20 19:47 94 Nasal Cannula 3.0 32 09/09/20 19:47 61 18 94 Nasal Cannula 3.0 32 09/09/20 16:00 60 09/09/20 16:00 97.9 61 18 98/46 (63) 96 09/09/20 12:00 96.8 62 19 102/53 (69) 100 09/09/20 12:00 62 09/09/20 09:00 Nasal Cannula 2.0 Nasal Cannula 2.0 09/09/20 08:00 60 09/09/20 08:00 98.1 64 20 110/74 (86) 96 09/09/20 07:00 96 Nasal Cannula 2.0 28 09/09/20 07:00 64 18 96 Nasal Cannula 2.0 28 Intake and Output 09/09/20 09/10/20 19:00 07:00 Intake Total 150 ml 240 ml Output Total 35 ml Balance 115 ml 240 ml Intake Oral 150 ml IV Total 240 ml Output Urine Total 35 ml Laboratory Tests 09/09/20 12:59: POC Whole Blood Glucose [Pending] 09/09/20 14:58: Urine Color [place], Urine Appearance Very cloudy, Urine pH 5, Urine Specific [place] 1.030, Urine Protein 3+H, Urine Glucose (UA) Negative, Urine Ketones 2+H , Urine Blood 5+H, Urine Nitrite PositiveH, Urine Bilirubin 2+H, Urine Ictotest Negative, Urine Urobilinogen 1H, Urine Leukocyte Esterase 3+H, Urine RBC TntcH, Urine WBC 15-20H, Urine Squamous Epithelial Cells ModerateH, Urine Bacteria ManyH 09/09/20 17:11: POC Whole Blood Glucose 79 09/09/20 17:59: POC Whole Blood Glucose 95 09/09/20 20:51: POC Whole Blood Glucose [Pending] 09/10/20 05:42: POC Whole Blood Glucose [Pending] Height (Feet): 5 Height (Inches): 10.00 Weight (Pounds): 218 General Appearance: no apparent distress Neck: normal alignment Cardiovascular: normal rate Respiratory/Chest: lungs clear Abdomen: normal bowel sounds Pelvis: normal external exam Objective Current Medications Medications (Trade) Dose Ordered Sig/[place] Route PRN Reason Start Time Stop Time Status Last Admin Dose Admin Acetaminophen (Tylenol) 650 mg Q4H PRN ORAL FEVER 08/30/20 23:45 09/29/20 23:44 Acetaminophen/ Hydrocodone Bitart ([place] 5/325) 1 tab Q6H PRN ORAL Severe Pain (Pain Scale 7-10) 09/09/20 12:15 09/16/20 12:14 09/09/20 13:04 Albuterol/ Ipratropium (Albuterol/ Ipratropium) 3 ml Q4H PRN HHN Shortness of Breath 09/07/20 09:00 09/12/20 08:59 Allopurinol (Zyloprim) 100 mg DAILY ORAL 09/09/20 09:00 10/09/20 08:59 09/09/20 09:11 Calcium Acetate (Phoslo) 667 mg TIAC ORAL 09/08/20 11:30 12/07/20 11:29 09/10/20 05:46 Chlorhexidine Gluconate (Josiane-Hex 2%) 1 applic DAILY@1999 TOPIC 09/06/20 20:00 12/05/20 19:59 09/09/20 20:56 Dextrose (Dextrose 50%) 25 ml Q30M PRN IV Hypoglycemia 08/30/20 23:45 11/28/20 23:44 Dextrose (Dextrose 50%) 50 ml Q30M PRN IV Hypoglycemia 08/30/20 23:45 11/28/20 23:44 Epoetin Shlomo (Epoetin Shlomo(ESRD on dialysis)) 10,000 unit TUE-TUE-TUE SUBQ 09/08/20 21:00 12/07/20 20:59 09/08/20 21:00 Folic Acid (Folate) 3 mg DAILY ORAL 09/02/20 09:00 10/02/20 08:59 09/09/20 09:10 Heparin Sodium (Porcine) (Heparin 5000 units/ml) 5,000 units EVERY 12 HOURS SUBQ 08/31/20 09:00 10/15/20 08:59 09/06/20 00:16 Indomethacin (Indocin) 25 mg THREE TIMES A DAY ORAL 09/04/20 13:00 10/04/20 12:59 09/09/20 17:23 Insulin Aspart (NovoLOG) BEFORE MEALS AND HS SUBQ 08/31/20 06:30 11/29/20 06:29 09/04/20 21:17 Iron Sucrose 100 mg/Sodium Chloride 60 ml @ 240 mls/hr BEDTIME IVPB 09/08/20 21:00 09/12/20 21:14 09/09/20 20:57 Levothyroxine Sodium (Synthroid) 100 mcg DAILY@0630 ORAL 09/02/20 06:30 10/02/20 06:29 09/10/20 05:45 Metoclopramide HCl (Reglan) 5 mg THREE TIMES A DAY ORAL 08/31/20 13:00 09/30/20 12:59 09/09/20 17:23 Ondansetron HCl (Zofran) 4 mg Q6H PRN IVP Nausea & Vomiting 08/30/20 23:45 09/29/20 23:44 Pantoprazole (Protonix) 40 mg EVERY 12 HOURS ORAL 08/31/20 21:00 09/30/20 20:59 09/09/20 20:56 Polyethylene Glycol (Miralax) 17 gm DAILYPRN PRN ORAL Constipation 08/30/20 23:45 09/29/20 23:44 Promethazine HCl/ Codeine (Phenergan with Codeine) 5 ml Q6H PRN ORAL cough 08/30/20 23:45 09/29/20 23:44 Theophylline (Theophylline) 80 mg Q8HR ORAL 09/09/20 14:00 12/08/20 13:59 09/10/20 05:45 Assessment/Plan Problem List: (1) Renal failure (ARF), acute on chronic ICD Codes: N17.9 - Acute kidney failure, unspecified; N18.9 - Chronic kidney disease, unspecified SNOMED: 933041600 (2) CAD (coronary artery disease) ICD Codes: I25.10 - Atherosclerotic heart disease of [place] coronary artery without angina pectoris SNOMED: 58863027 (3) Diabetes mellitus ICD Codes: E11.9 - Type 2 diabetes mellitus without complications SNOMED: 64062604 (4) Left bundle branch block (LBBB) ICD Codes: I44.7 - Left bundle-branch block, unspecified SNOMED: 08808463 (5) Hypothyroidism ICD Codes: E03.9 - Hypothyroidism, unspecified SNOMED: 38289988 Status: stable, progressing Assessment/Plan: no need for basal insulin continue Novolog sliding scale ac / hs continue LT4 100 mcg daily repeat thyroid function next week Jake Alexander MD Sep 10, 2020 06:21
--- NOTE | 2020-09-10 06:28 | Hematology/Onc Progress Note ---
Assessment/Plan Assessment/Plan Assessment and Recs: # Anemia of chronic disease due to underlying chronic medical issues, multifactorial v Gi bleed --> Anemia workup has been ordered, rule out gi bleed --> No evidence of hemolysis is noted, peripheral smear has been reviewed. --> Hgb goal >7. Transfuse prn. --> EPOGEN AND IV IRON STARTED, CONTINUE --> Medications have been reviewed --> hgb 7.7-->8-->8.4-->8 --> egd w/ colo 01/15/20 Gastritis, status post biopsy. Total of 11 polyps removed, Internal hemorrhoids. # Thromocytopenia likely related to infection v reactive process --> hep and hiv are neg --> imaging abd has been reviewed --> peripheral smear noted --> plt 75 # Coagulation defect, multifactorial usually related to poor PO intake versus medications, versus hepatitis v cirrhosis --> administer Vitamin K if patient is bleeding or FFP if the INR is >10 --> hold off on ffp unless active procedure/bleeding, first begin with vit K 10 --> mixing study as needed # Renal failure (ARF), acute on chronic --> ivf as per renal --> renal us reviewed --> improved --> HD as per renal # Hypoglycemia -> endo eval prn # Pleural effusion --> diuresis as needed --> monitor ivf --> HD # Hyperkalemia # Obesity # Dvt ppx heparin sq The timing of this note does not necessarily reflect the time of the patient was seen. Greatly appreciate consultation. Subjective Constitutional: Denies: no symptoms, chills, fever, malaise, weakness, other HEENT: Denies: no symptoms, eye pain, blurred vision, tearing, double vision, ear pain, ear discharge, nose pain, nose congestion, throat pain, throat swelling, mouth pain, mouth swelling, other Cardiovascular: Denies: no symptoms, chest pain, edema, irregular heart rate, lightheadedness, palpitations, syncope, other Respiratory: Denies: no symptoms, cough, shortness of breath, SOB with excertion, SOB at rest, sputum, wheezing, other Genitourinary: Denies: no symptoms, burning, discharge, frequency, flank pain, hematuria, incontinence, pain, urgency, other Neurologic/Psychiatric: Denies: no symptoms, anxiety, depressed, emotional problems, headache, numbness, paresthesia, pre-existing deficit, seizure, tingling, tremors, weakness, other Endocrine: Denies: no symptoms, excessive sweating, flushing, intolerance to cold, intolerance to heat, increased hunger, increased thirst, increased urine, unexplained weight gain, unexplained weight loss, other Allergies: Coded Allergies: No Known Allergies (Unverified , 10/10/19) Subjective 09/08 labs reviewed, hd as per renal, fluid overload improved, labs noted, with dropping plt 09/09 pending plt count this am, on abx, broad spectrum, no other events 09/10 labs pending, is comfortable, is on 3l nc, no bleeding Objective Objective Current Medications Medications (Trade) Dose Ordered Sig/Bra[place]en Route PRN Reason Start Time Stop Time Status Last Admin Dose Admin Acetaminophen (Tylenol) 650 mg Q4H PRN ORAL FEVER 08/30/20 23:45 09/29/20 23:44 Acetaminophen/ Hydrocodone Bitart ([place] 5/325) 1 tab Q6H PRN ORAL Severe Pain (Pain Scale 7-10) 09/09/20 12:15 09/16/20 12:14 09/09/20 13:04 Albuterol/ Ipratropium (Albuterol/ Ipratropium) 3 ml Q4H PRN HHN Shortness of Breath 09/07/20 09:00 09/12/20 08:59 Allopurinol (Zyloprim) 100 mg DAILY ORAL 09/09/20 09:00 10/09/20 08:59 09/09/20 09:11 Calcium Acetate (Phoslo) 667 mg TIAC ORAL 09/08/20 11:30 12/07/20 11:29 09/10/20 05:46 Chlorhexidine Gluconate (Josiane-Hex 2%) 1 applic DAILY@1999 TOPIC 09/06/20 20:00 12/05/20 19:59 09/09/20 20:56 Dextrose (Dextrose 50%) 25 ml Q30M PRN IV Hypoglycemia 08/30/20 23:45 11/28/20 23:44 Dextrose (Dextrose 50%) 50 ml Q30M PRN IV Hypoglycemia 08/30/20 23:45 11/28/20 23:44 Epoetin Shlomo (Epoetin Shlomo(ESRD on dialysis)) 10,000 unit TUE-TUE-TUE SUBQ 09/08/20 21:00 12/07/20 20:59 09/08/20 21:00 Folic Acid (Folate) 3 mg DAILY ORAL 09/02/20 09:00 10/02/20 08:59 09/09/20 09:10 Heparin Sodium (Porcine) (Heparin 5000 units/ml) 5,000 units EVERY 12 HOURS SUBQ 08/31/20 09:00 10/15/20 08:59 09/06/20 00:16 Indomethacin (Indocin) 25 mg THREE TIMES A DAY ORAL 09/04/20 13:00 10/04/20 12:59 09/09/20 17:23 Insulin Aspart (NovoLOG) BEFORE MEALS AND HS SUBQ 08/31/20 06:30 11/29/20 06:29 09/04/20 21:17 Iron Sucrose 100 mg/Sodium Chloride 60 ml @ 240 mls/hr BEDTIME IVPB 09/08/20 21:00 09/12/20 21:14 09/09/20 20:57 Levothyroxine Sodium (Synthroid) 100 mcg DAILY@0630 ORAL 09/02/20 06:30 10/02/20 06:29 09/10/20 05:45 Metoclopramide HCl (Reglan) 5 mg THREE TIMES A DAY ORAL 08/31/20 13:00 09/30/20 12:59 09/09/20 17:23 Ondansetron HCl (Zofran) 4 mg Q6H PRN IVP Nausea & Vomiting 08/30/20 23:45 09/29/20 23:44 Pantoprazole (Protonix) 40 mg EVERY 12 HOURS ORAL 08/31/20 21:00 09/30/20 20:59 09/09/20 20:56 Polyethylene Glycol (Miralax) 17 gm DAILYPRN PRN ORAL Constipation 08/30/20 23:45 09/29/20 23:44 Promethazine HCl/ Codeine (Phenergan with Codeine) 5 ml Q6H PRN ORAL cough 08/30/20 23:45 09/29/20 23:44 Theophylline (Theophylline) 80 mg Q8HR ORAL 09/09/20 14:00 12/08/20 13:59 09/10/20 05:45 Last 24 Hour Vital Signs Date Time Temp Pulse Resp B/P (MAP) Pulse Ox O2 Delivery O2 Flow Rate FiO2 09/10/20 04:00 60 09/10/20 04:00 97.7 58 16 90/52 (65) 99 09/10/20 00:00 97.9 58 16 92/50 (64) 99 09/10/20 00:00 59 09/09/20 21:00 Nasal Cannula 2.0 Nasal Cannula 2.0 09/09/20 20:00 62 09/09/20 20:00 98.2 61 18 99/55 (70) 99 09/09/20 19:47 94 Nasal Cannula 3.0 32 09/09/20 19:47 61 18 94 Nasal Cannula 3.0 32 09/09/20 16:00 60 09/09/20 16:00 97.9 61 18 98/46 (63) 96 09/09/20 12:00 96.8 62 19 102/53 (69) 100 09/09/20 12:00 62 09/09/20 09:00 Nasal Cannula 2.0 Nasal Cannula 2.0 09/09/20 08:00 60 09/09/20 08:00 98.1 64 20 110/74 (86) 96 09/09/20 07:00 96 Nasal Cannula 2.0 28 09/09/20 07:00 64 18 96 Nasal Cannula 2.0 28 09/09/20 04:00 97.9 61 20 93/48 (63) 98 09/09/20 04:00 64 09/09/20 03:38 32 09/09/20 00:00 96.6 61 16 103/62 (76) 96 09/09/20 00:00 60 09/08/20 22:36 97.0 63 13 99/49 (66) 96 09/08/20 21:00 Nasal Cannula 2.0 Nasal Cannula 2.0 09/08/20 20:04 96 Nasal Cannula 2.0 28 09/08/20 20:04 67 18 96 Nasal Cannula 2.0 28 09/08/20 20:00 61 09/08/20 20:00 97.0 63 18 99/49 (66) 96 09/08/20 16:00 64 09/08/20 16:00 97.9 64 18 95/44 (61) 96 09/08/20 12:00 97.1 64 18 106/64 (78) 96 09/08/20 12:00 67 09/08/20 09:00 Nasal Cannula 2.0 Nasal Cannula 2.0 09/08/20 08:00 60 09/08/20 07:59 97.5 62 18 113/49 (70) 96 Intake and Output 09/09/20 09/10/20 19:00 07:00 Intake Total 150 ml 240 ml Output Total 35 ml Balance 115 ml 240 ml Intake Oral 150 ml IV Total 240 ml Output Urine Total 35 ml Labs Test 09/07/20 07:25 09/07/20 12:05 09/07/20 16:59 09/07/20 17:22 White Blood Count 7.1 K/UL (4.8-10.8) Red Blood Count 2.78 M/UL (4.20-5.40) Hemoglobin 8.0 G/DL (12.0-16.0) Hematocrit 26.7 % (37.0-47.0) Mean Corpuscular Volume 96 FL (80-99) Mean Corpuscular Hemoglobin 28.7 PG (27.0-31.0) Mean Corpuscular Hemoglobin Concent 29.9 G/DL (32.0-36.0) Red Cell Distribution Width 16.6 % (11.6-14.8) Platelet Count 75 K/UL (150-450) Mean Platelet Volume 8.8 FL (6.5-10.1) Neutrophils (%) (Auto) % (45.0-75.0) Lymphocytes (%) (Auto) % (20.0-45.0) Monocytes (%) (Auto) % (1.0-10.0) Eosinophils (%) (Auto) % (0.0-3.0) Basophils (%) (Auto) % (0.0-2.0) Differential Total Cells Counted 100 Neutrophils % (Manual) 75 % (45-75) Lymphocytes % (Manual) 15 % (20-45) Monocytes % (Manual) 9 % (1-10) Eosinophils % (Manual) 1 % (0-3) Basophils % (Manual) 0 % (0-2) Band Neutrophils 0 % (0-8) Platelet Estimate Decreased Platelet Morphology Normal Hypochromasia 1+ Anisocytosis 1+ Sodium Level 136 MMOL/L (136-145) Potassium Level 3.8 MMOL/L (3.5-5.1) Chloride Level 100 MMOL/L (98-107) Carbon Dioxide Level 26 MMOL/L (21-32) Anion Gap 11 mmol/L (5-15) Blood Urea Nitrogen 59 mg/dL (7-18) Creatinine 3.5 MG/DL (0.55-1.30) Estimat Glomerular Filtration Rate 13.0 mL/min (>60) Glucose Level 74 MG/DL (74-106) Uric Acid 5.2 MG/DL (2.6-7.2) Calcium Level 8.0 MG/DL (8.5-10.1) Phosphorus Level 4.7 MG/DL (2.5-4.9) Magnesium Level 2.3 MG/DL (1.8-2.4) Total Bilirubin 0.8 MG/DL (0.2-1.0) Aspartate Amino Transf (AST/SGOT) 15 U/L (15-37) Alanine Aminotransferase (ALT/SGPT) 10 U/L (12-78) Alkaline Phosphatase 114 U/L (46-116) C-Reactive Protein, Quantitative 10.7 mg/dL (0.00-0.90) Pro-B-Type Natriuretic Peptide 28352 pg/mL (0-125) Total Protein 6.6 G/DL (6.4-8.2) Albumin 2.7 G/DL (3.4-5.0) Globulin 3.9 g/dL Albumin/Globulin Ratio 0.7 (1.0-2.7) POC Whole Blood Glucose 81 MG/DL (74-106) 123 MG/DL (74-106) Test 09/07/20 20:35 09/07/20 21:34 09/08/20 05:46 09/08/20 05:54 POC Whole Blood Glucose 79 MG/DL (74-106) 98 MG/DL (74-106) 75 MG/DL (74-106) White Blood Count 7.6 K/UL (4.8-10.8) Red Blood Count 2.75 M/UL (4.20-5.40) Hemoglobin 8.0 G/DL (12.0-16.0) Hematocrit 26.6 % (37.0-47.0) Mean Corpuscular Volume 97 FL (80-99) Mean Corpuscular Hemoglobin 29.0 PG (27.0-31.0) Mean Corpuscular Hemoglobin Concent 30.1 G/DL (32.0-36.0) Red Cell Distribution Width 17.2 % (11.6-14.8) Platelet Count 85 K/UL (150-450) Mean Platelet Volume 8.8 FL (6.5-10.1) Neutrophils (%) (Auto) % (45.0-75.0) Lymphocytes (%) (Auto) % (20.0-45.0) Monocytes (%) (Auto) % (1.0-10.0) Eosinophils (%) (Auto) % (0.0-3.0) Basophils (%) (Auto) % (0.0-2.0) Differential Total Cells Counted 100 Neutrophils % (Manual) 84 % (45-75) Lymphocytes % (Manual) 7 % (20-45) Monocytes % (Manual) 9 % (1-10) Eosinophils % (Manual) 0 % (0-3) Basophils % (Manual) 0 % (0-2) Band Neutrophils 0 % (0-8) Platelet Estimate Decreased Platelet Morphology Normal Hypochromasia 1+ Anisocytosis 1+ Sodium Level 136 MMOL/L (136-145) Potassium Level 4.0 MMOL/L (3.5-5.1) Chloride Level 100 MMOL/L (98-107) Carbon Dioxide Level 26 MMOL/L (21-32) Anion Gap 10 mmol/L (5-15) Blood Urea Nitrogen 68 mg/dL (7-18) Creatinine 4.2 MG/DL (0.55-1.30) Estimat Glomerular Filtration Rate 10.5 mL/min (>60) Glucose Level 73 MG/DL (74-106) Uric Acid 5.4 MG/DL (2.6-7.2) Calcium Level 7.8 MG/DL (8.5-10.1) Phosphorus Level 5.8 MG/DL (2.5-4.9) Magnesium Level 2.3 MG/DL (1.8-2.4) Total Bilirubin 0.8 MG/DL (0.2-1.0) Aspartate Amino Transf (AST/SGOT) 23 U/L (15-37) Alanine Aminotransferase (ALT/SGPT) < 6 U/L (12-78) Alkaline Phosphatase 117 U/L (46-116) C-Reactive Protein, Quantitative 11.8 mg/dL (0.00-0.90) Pro-B-Type Natriuretic Peptide 24359 pg/mL (0-125) Total Protein 6.5 G/DL (6.4-8.2) Albumin 2.5 G/DL (3.4-5.0) Globulin 4.0 g/dL Albumin/Globulin Ratio 0.6 (1.0-2.7) Test 09/08/20 11:21 09/08/20 16:41 09/08/20 21:57 09/09/20 05:20 POC Whole Blood Glucose 94 MG/DL (74-106) 84 MG/DL (74-106) White Blood Count 8.9 K/UL (4.8-10.8) Red Blood Count 2.84 M/UL (4.20-5.40) Hemoglobin 8.2 G/DL (12.0-16.0) Hematocrit 27.5 % (37.0-47.0) Mean Corpuscular Volume 97 FL (80-99) Mean Corpuscular Hemoglobin 28.9 PG (27.0-31.0) Mean Corpuscular Hemoglobin Concent 29.8 G/DL (32.0-36.0) Red Cell Distribution Width 17.2 % (11.6-14.8) Platelet Count 76 K/UL (150-450) Mean Platelet Volume 8.7 FL (6.5-10.1) Neutrophils (%) (Auto) % (45.0-75.0) Lymphocytes (%) (Auto) % (20.0-45.0) Monocytes (%) (Auto) % (1.0-10.0) Eosinophils (%) (Auto) % (0.0-3.0) Basophils (%) (Auto) % (0.0-2.0) Differential Total Cells Counted 100 Neutrophils % (Manual) 83 % (45-75) Lymphocytes % (Manual) 7 % (20-45) Monocytes % (Manual) 9 % (1-10) Eosinophils % (Manual) 1 % (0-3) Basophils % (Manual) 0 % (0-2) Band Neutrophils 0 % (0-8) Platelet Estimate Decreased Platelet Morphology Normal Hypochromasia 1+ Anisocytosis 1+ Macrocytosis 1+ Sodium Level 136 MMOL/L (136-145) Potassium Level 4.0 MMOL/L (3.5-5.1) Chloride Level 99 MMOL/L (98-107) Carbon Dioxide Level 28 MMOL/L (21-32) Anion Gap 9 mmol/L (5-15) Blood Urea Nitrogen 48 mg/dL (7-18) Creatinine 3.6 MG/DL (0.55-1.30) Estimat Glomerular Filtration Rate 12.5 mL/min (>60) Glucose Level 75 MG/DL (74-106) Calcium Level 8.2 MG/DL (8.5-10.1) Phosphorus Level 4.7 MG/DL (2.5-4.9) Magnesium Level 2.2 MG/DL (1.8-2.4) Total Bilirubin 0.8 MG/DL (0.2-1.0) Aspartate Amino Transf (AST/SGOT) 17 U/L (15-37) Alanine Aminotransferase (ALT/SGPT) < 6 U/L (12-78) Alkaline Phosphatase 123 U/L (46-116) Total Protein 6.3 G/DL (6.4-8.2) Albumin 2.4 G/DL (3.4-5.0) Globulin 3.9 g/dL Albumin/Globulin Ratio 0.6 (1.0-2.7) Test 09/09/20 06:11 09/09/20 12:59 09/09/20 14:58 09/09/20 17:11 Urine Color Hannah Urine Appearance Very cloudy Urine pH 5 (4.5-8.0) Urine Specific [place] 1.030 (1.005-1.035) Urine Protein 3+ (NEGATIVE) Urine Glucose (UA) Negative (NEGATIVE) Urine Ketones 2+ (NEGATIVE) Urine Blood 5+ (NEGATIVE) Urine Nitrite Positive (NEGATIVE) Urine Bilirubin 2+ (NEGATIVE) Urine Ictotest Negative (NEGATIVE) Urine Urobilinogen 1 MG/DL (0.0-1.0) Urine Leukocyte Esterase 3+ (NEGATIVE) Urine RBC Tntc /HPF (0 - 2) Urine WBC 15-20 /HPF (0 - 2) Urine Squamous Epithelial Cells Moderate /LPF (NONE/OCC) Urine Bacteria Many /HPF (NONE) POC Whole Blood Glucose 79 MG/DL (74-106) Test 09/09/20 17:59 09/09/20 20:51 09/10/20 05:42 POC Whole Blood Glucose 95 MG/DL (74-106) Micro Microbiology Date/Time Source Procedure Growth Status 09/09/20 14:58 Urine,Clean Catch Urine Culture - Preliminary NO GROWTH Resulted Height (Feet): 5 Height (Inches): 10.00 Weight (Pounds): 218 Objective ++Derick Hwang MD Sep 10, 2020 06:28
--- NOTE | 2020-09-10 07:30 | Infectious Diseases Prog Note ---
Assessment/Plan 70yo F with: Severe Sepsis Pneumonia Acute hypoxic resp failure- on 2L NC R pleural effusion, transudate -09/03 SP Thoracentesis: Successful ultrasound-guided thoracentesis, yielding 680 milliliters of clear yellow fluid; cx NTD -fluid prot 1.4, glucose 198 -09/01 Chest US: Positive for right pleural effusion Incidental finding of ascites, also previously reporte -08/30 CXR: There is again patchy ill-defined airspace opacities at the right greater than left base with some consolidated appearance again seen on the right. There is now patchy ill-defined opacity at the right upper lung. A small right pleural effusion is suggested. The patient is rotated to the right. Status post median sternotomy again noted. -08/30 & 8 rapid covid PCR neg x2 -08/30 Bcx NTD R/o UTI 09/09 UA 15-20 WBC, UCx NTD Afebrile Leukocytosis, SP -09/02 Bcx NTD -08/31 u/a no pyuria R arm and R leg cellulitis; improving Recent hx of COVID19- pt clarified initial diagnosis was 2 months ago and not 08/25 as per documentation on EMR. VENANCIO on CKD -Renal US: Ascites. Bilateral pleural effusions. Complex right renal cysts of uncertain etiology. This complex cyst is unchanged from the study of 01/12/2020. Mildly atrophic right kidney.Magnetic resonance imaging of the abdomen with gadolinium administration is advised for further evaluation of complex right renal cyst. HIV screen neg PMH: HTN dCHF pHTN Ascites Chronic LE edema DM2 c/w neuropathy Iron def anemia Plan: Cont to monitor off abx 09/09 SP ceftaroline and levofloxacin #9 (abx d #10/) 08/31 SP Ceftriaxone #2, Azithromcyin #2 -f/u cx -Monitor CBC/CMP, temperatures -aspiration precautions D/w RN Thank you for consulting [facility]. Will continue to follow along with you. Subjective Allergies: Coded Allergies: No Known Allergies (Unverified , 10/10/19) AF NAD on 2LNC Off abx HIV neg WBC 10.1 Objective Last 24 Hour Vital Signs Date Time Temp Pulse Resp B/P (MAP) Pulse Ox O2 Delivery O2 Flow Rate FiO2 09/10/20 04:00 60 09/10/20 04:00 97.7 58 16 90/52 (65) 99 11/18/20 00:00 97.9 58 16 92/50 (64) 99 09/10/20 00:00 59 09/09/20 21:00 Nasal Cannula 2.0 Nasal Cannula 2.0 09/09/20 20:00 62 09/09/20 20:00 98.2 61 18 99/55 (70) 99 09/09/20 19:47 94 Nasal Cannula 3.0 32 09/09/20 19:47 61 18 94 Nasal Cannula 3.0 32 09/09/20 16:00 60 09/09/20 16:00 97.9 61 18 98/46 (63) 96 09/09/20 12:00 96.8 62 19 102/53 (69) 100 09/09/20 12:00 62 09/09/20 09:00 Nasal Cannula 2.0 Nasal Cannula 2.0 09/09/20 08:00 60 09/09/20 08:00 98.1 64 20 110/74 (86) 96 Height (Feet): 5 Height (Inches): 10.00 Weight (Pounds): 218 Gen: NAD in bed HEENT: NCAT, EOMI, PERRL CV: RRR Pulm: CTAB Abd: Soft, NTND Ext: No c/c/e Neuro: Sleeping calmy Microbiology Date/Time Source Procedure Growth Status 09/09/20 14:58 Urine,Clean Catch Urine Culture - Preliminary NO GROWTH Resulted Laboratory Tests Test 09/09/20 12:59 09/09/20 14:58 09/09/20 17:11 09/09/20 17:59 POC Whole Blood Glucose Pending 79 MG/DL (74-106) 95 MG/DL (74-106) Urine Color Hannah Urine Appearance Very cloudy Urine pH 5 (4.5-8.0) Urine Specific [place] 1.030 (1.005-1.035) Urine Protein 3+ (NEGATIVE) H Urine Glucose (UA) Negative (NEGATIVE) Urine Ketones 2+ (NEGATIVE) H Urine Blood 5+ (NEGATIVE) H Urine Nitrite Positive (NEGATIVE) H Urine Bilirubin 2+ (NEGATIVE) H Urine Ictotest Negative (NEGATIVE) Urine Urobilinogen 1 MG/DL (0.0-1.0) H Urine Leukocyte Esterase 3+ (NEGATIVE) H Urine RBC Tntc /HPF (0 - 2) H Urine WBC 15-20 /HPF (0 - 2) H Urine Squamous Epithelial Cells Moderate /LPF (NONE/OCC) H Urine Bacteria Many /HPF (NONE) H Test 09/09/20 20:51 09/10/20 05:42 POC Whole Blood Glucose Pending Pending Current Medications Medications (Trade) Dose Ordered Sig/[place] Route PRN Reason Start Time Stop Time Status Last Admin Dose Admin Acetaminophen (Tylenol) 650 mg Q4H PRN ORAL FEVER 08/30/20 23:45 09/29/20 23:44 Acetaminophen/ Hydrocodone Bitart ([place] 5/325) 1 tab Q6H PRN ORAL Severe Pain (Pain Scale 7-10) 09/09/20 12:15 09/16/20 12:14 09/09/20 13:04 Albuterol/ Ipratropium (Albuterol/ Ipratropium) 3 ml Q4H PRN HHN Shortness of Breath 09/07/20 09:00 09/12/20 08:59 Allopurinol (Zyloprim) 100 mg DAILY ORAL 09/09/20 09:00 10/09/20 08:59 09/09/20 09:11 Calcium Acetate (Phoslo) 667 mg TIAC ORAL 09/08/20 11:30 12/07/20 11:29 09/10/20 05:46 Chlorhexidine Gluconate (Josiane-Hex 2%) 1 applic DAILY@1999 TOPIC 09/06/20 20:00 12/05/20 19:59 09/09/20 20:56 Dextrose (Dextrose 50%) 25 ml Q30M PRN IV Hypoglycemia 08/30/20 23:45 11/28/20 23:44 Dextrose (Dextrose 50%) 50 ml Q30M PRN IV Hypoglycemia 08/30/20 23:45 11/28/20 23:44 Epoetin Shlomo (Epoetin Shlomo(ESRD on dialysis)) 10,000 unit TUE-TUE-TUE SUBQ 09/08/20 21:00 12/07/20 20:59 09/08/20 21:00 Folic Acid (Folate) 3 mg DAILY ORAL 09/02/20 09:00 10/02/20 08:59 09/09/20 09:10 Heparin Sodium (Porcine) (Heparin 5000 units/ml) 5,000 units EVERY 12 HOURS SUBQ 08/31/20 09:00 10/15/20 08:59 09/06/20 00:16 Indomethacin (Indocin) 25 mg THREE TIMES A DAY ORAL 09/04/20 13:00 10/04/20 12:59 09/09/20 17:23 Insulin Aspart (NovoLOG) BEFORE MEALS AND HS SUBQ 08/31/20 06:30 11/29/20 06:29 09/04/20 21:17 Iron Sucrose 100 mg/Sodium Chloride 60 ml @ 240 mls/hr BEDTIME IVPB 09/08/20 21:00 09/12/20 21:14 09/09/20 20:57 Levothyroxine Sodium (Synthroid) 100 mcg DAILY@0630 ORAL 09/02/20 06:30 10/02/20 06:29 09/10/20 05:45 Metoclopramide HCl (Reglan) 5 mg THREE TIMES A DAY ORAL 08/31/20 13:00 09/30/20 12:59 09/09/20 17:23 Ondansetron HCl (Zofran) 4 mg Q6H PRN IVP Nausea & Vomiting 08/30/20 23:45 09/29/20 23:44 Pantoprazole (Protonix) 40 mg EVERY 12 HOURS ORAL 08/31/20 21:00 09/30/20 20:59 09/09/20 20:56 Polyethylene Glycol (Miralax) 17 gm DAILYPRN PRN ORAL Constipation 08/30/20 23:45 09/29/20 23:44 Promethazine HCl/ Codeine (Phenergan with Codeine) 5 ml Q6H PRN ORAL cough 08/30/20 23:45 09/29/20 23:44 Theophylline (Theophylline) 80 mg Q8HR ORAL 09/09/20 14:00 12/08/20 13:59 09/10/20 05:45 Nadia Calvin M.D. Sep 10, 2020 07:30
[2020-09-10 07:47] LABS: HEMATOCRIT 27.6 % (37.0-47.0); HEMOGLOBIN 8.3 G/DL (12.0-16.0); MEAN CORPUSCULAR VOLUME 97 FL (80-99); PLATELET COUNT 78 K/UL (150-450); RED BLOOD COUNT 2.84 M/UL (4.20-5.40); RED CELL DISTRIBUTION WIDTH 17.6 % (11.6-14.8); WHITE BLOOD COUNT 10.1 K/UL (4.8-10.8)
[2020-09-10 08:00] VITALS: BP 92/47
[2020-09-10 08:17] LABS: ALBUMIN 2.4 G/DL (3.4-5.0); ALBUMIN/GLOBULIN RATIO 0.6 (1.0-2.7); BILIRUBIN,TOTAL 0.7 MG/DL (0.2-1.0); CREATININE 4.3 MG/DL (0.55-1.30); PHOSPHORUS 5.2 MG/DL (2.5-4.9); POTASSIUM 4.2 MMOL/L (3.5-5.1)
[2020-09-10] MEDS: Indomethacin 25mg cap ORAL SCH ×3 (08:49→18:14)
[2020-09-10] MEDS: Allopurinol 100mg Tab ORAL SCH (08:50)
[2020-09-10] MEDS: Heparin 5000 units/ml inj SUBQ SCH ×2 (08:50→21:00)
--- NOTE | 2020-09-10 10:40 | Cardiac Electrophysiology PN ---
Assessment/Plan Assessment/Plan 1. Volume overload due to renal failure as creatinine is 3.5. Echo showed ejection fraction of 50%. Off Amlodipine. On HD after PermCath placement 09/05. 2. Left bundle-branch block. 3. Diastolic dysfunction. EF 50%. 4. Hyperkalemia. Got Kayexalate by Dr. Severino. 5. Diabetic nephropathy. 6. Renal failure. BUN/Cr 81/3.8 S/P PermCath and dialysis 7. Hypothyroidism. 8. Iron-deficiency anemia. 9. Right pleural effusion. S/P 800cc Right thoracentesis 09/03/20 DW RN Subjective Subjective S/P Right chest PermCath and HD on 09/05, 09/06 and 09/08. No CP in SR in NAD Objective Last 24 Hour Vital Signs Date Time Temp Pulse Resp B/P (MAP) Pulse Ox O2 Delivery O2 Flow Rate FiO2 09/10/20 04:00 60 09/10/20 04:00 97.7 58 16 90/52 (65) 99 09/10/20 00:00 97.9 58 16 92/50 (64) 99 09/10/20 00:00 59 09/09/20 21:00 Nasal Cannula 2.0 Nasal Cannula 2.0 09/09/20 20:00 62 09/09/20 20:00 98.2 61 18 99/55 (70) 99 09/09/20 19:47 94 Nasal Cannula 3.0 32 09/09/20 19:47 61 18 94 Nasal Cannula 3.0 32 09/09/20 16:00 60 09/09/20 16:00 97.9 61 18 98/46 (63) 96 09/09/20 12:00 96.8 62 19 102/53 (69) 100 09/09/20 12:00 62 Intake and Output 09/09/20 09/10/20 18:59 06:59 Intake Total 150 ml 240 ml Output Total 35 ml Balance 115 ml 240 ml Intake Oral 150 ml IV Total 240 ml Output Urine Total 35 ml # Voids 1 Laboratory Tests Test 09/09/20 12:59 09/09/20 14:58 09/09/20 17:11 09/09/20 17:59 POC Whole Blood Glucose Pending 79 MG/DL (74-106) 95 MG/DL (74-106) Urine Color Hannah Urine Appearance Very cloudy Urine pH 5 (4.5-8.0) Urine Specific [place] 1.030 (1.005-1.035) Urine Protein 3+ (NEGATIVE) H Urine Glucose (UA) Negative (NEGATIVE) Urine Ketones 2+ (NEGATIVE) H Urine Blood 5+ (NEGATIVE) H Urine Nitrite Positive (NEGATIVE) H Urine Bilirubin 2+ (NEGATIVE) H Urine Ictotest Negative (NEGATIVE) Urine Urobilinogen 1 MG/DL (0.0-1.0) H Urine Leukocyte Esterase 3+ (NEGATIVE) H Urine RBC Tntc /HPF (0 - 2) H Urine WBC 15-20 /HPF (0 - 2) H Urine Squamous Epithelial Cells Moderate /LPF (NONE/OCC) H Urine Bacteria Many /HPF (NONE) H Test 09/09/20 20:51 09/10/20 05:42 09/10/20 06:39 POC Whole Blood Glucose Pending Pending White Blood Count 10.1 K/UL (4.8-10.8) Red Blood Count 2.84 M/UL (4.20-5.40) L Hemoglobin 8.3 G/DL (12.0-16.0) L Hematocrit 27.6 % (37.0-47.0) L Mean Corpuscular Volume 97 FL (80-99) Mean Corpuscular Hemoglobin 29.1 PG (27.0-31.0) Mean Corpuscular Hemoglobin Concent 29.9 G/DL (32.0-36.0) L Red Cell Distribution Width 17.6 % (11.6-14.8) H Platelet Count 78 K/UL (150-450) L Mean Platelet Volume 9.2 FL (6.5-10.1) Neutrophils (%) (Auto) % (45.0-75.0) Lymphocytes (%) (Auto) % (20.0-45.0) Monocytes (%) (Auto) % (1.0-10.0) Eosinophils (%) (Auto) % (0.0-3.0) Basophils (%) (Auto) % (0.0-2.0) Differential Total Cells Counted 100 Neutrophils % (Manual) 80 % (45-75) H Lymphocytes % (Manual) 10 % (20-45) L Monocytes % (Manual) 7 % (1-10) Eosinophils % (Manual) 2 % (0-3) Basophils % (Manual) 1 % (0-2) Band Neutrophils 0 % (0-8) Platelet Estimate Decreased L Platelet Morphology Normal Hypochromasia 1+ Anisocytosis 1+ Microcytosis Occasional Macrocytosis 1+ Sodium Level 137 MMOL/L (136-145) Potassium Level 4.2 MMOL/L (3.5-5.1) Chloride Level 101 MMOL/L (98-107) Carbon Dioxide Level 28 MMOL/L (21-32) Anion Gap 8 mmol/L (5-15) Blood Urea Nitrogen 54 mg/dL (7-18) H Creatinine 4.3 MG/DL (0.55-1.30) H Estimat Glomerular Filtration Rate 10.2 mL/min (>60) Glucose Level 79 MG/DL (74-106) Uric Acid 4.5 MG/DL (2.6-7.2) Calcium Level 8.0 MG/DL (8.5-10.1) L Phosphorus Level 5.2 MG/DL (2.5-4.9) H Magnesium Level 2.5 MG/DL (1.8-2.4) H Total Bilirubin 0.7 MG/DL (0.2-1.0) Aspartate Amino Transf (AST/SGOT) 20 U/L (15-37) Alanine Aminotransferase (ALT/SGPT) 6 U/L (12-78) L Alkaline Phosphatase 124 U/L (46-116) H C-Reactive Protein, Quantitative 11.7 mg/dL (0.00-0.90) H Pro-B-Type Natriuretic Peptide 25546 pg/mL (0-125) H Total Protein 6.4 G/DL (6.4-8.2) Albumin 2.4 G/DL (3.4-5.0) L Globulin 4.0 g/dL Albumin/Globulin Ratio 0.6 (1.0-2.7) L HIV (1&2) Antibody Rapid Negative (NEGATIVE) Microbiology Date/Time Source Procedure Growth Status 09/09/20 14:58 Urine,Clean Catch Urine Culture - Preliminary NO GROWTH Resulted Objective HEAD AND NECK: No JVD. LUNGS: Coarse rhonchi, bibasilar rales.Right chest PermCath CARDIOVASCULAR: Regular S1 and S2 with no gallop. ABDOMEN: Soft. EXTREMITIES: Bilateral 2+ pitting edema and bandage on both legs Sina Paulson MD Sep 10, 2020 10:40
--- NOTE | 2020-09-10 10:56 | General Progress Note ---
Subjective Constitutional: Reports: weakness Allergies: Coded Allergies: No Known Allergies (Unverified , 10/10/19) All Systems: reviewed and negative except above Subjective o2nc calm Objective Last 24 Hour Vital Signs Date Time Temp Pulse Resp B/P (MAP) Pulse Ox O2 Delivery O2 Flow Rate FiO2 09/10/20 04:00 60 09/10/20 04:00 97.7 58 16 90/52 (65) 99 09/10/20 00:00 97.9 58 16 92/50 (64) 99 09/10/20 00:00 59 09/09/20 21:00 Nasal Cannula 2.0 Nasal Cannula 2.0 09/09/20 20:00 62 09/09/20 20:00 98.2 61 18 99/55 (70) 99 09/09/20 19:47 94 Nasal Cannula 3.0 32 09/09/20 19:47 61 18 94 Nasal Cannula 3.0 32 09/09/20 16:00 60 09/09/20 16:00 97.9 61 18 98/46 (63) 96 09/09/20 12:00 96.8 62 19 102/53 (69) 100 09/09/20 12:00 62 Intake and Output 09/09/20 09/10/20 18:59 06:59 Intake Total 150 ml 240 ml Output Total 35 ml Balance 115 ml 240 ml Intake Oral 150 ml IV Total 240 ml Output Urine Total 35 ml # Voids 1 Laboratory Tests 09/09/20 12:59: POC Whole Blood Glucose [Pending] 09/09/20 14:58: Urine Color Hannah, Urine Appearance Very cloudy, Urine pH 5, Urine Specific [place] 1.030, Urine Protein 3+H, Urine Glucose (UA) Negative, Urine Ketones 2+H , Urine Blood 5+H, Urine Nitrite PositiveH, Urine Bilirubin 2+H, Urine Ictotest Negative, Urine Urobilinogen 1H, Urine Leukocyte Esterase 3+H, Urine RBC TntcH, Urine WBC 15-20H, Urine Squamous Epithelial Cells ModerateH, Urine Bacteria ManyH 09/09/20 17:11: POC Whole Blood Glucose 79 09/09/20 17:59: POC Whole Blood Glucose 95 09/09/20 20:51: POC Whole Blood Glucose [Pending] 09/10/20 05:42: POC Whole Blood Glucose [Pending] 09/10/20 06:39: White Blood Count 10.1, Red Blood Count 2.84L, Hemoglobin 8.3L, Hematocrit 27.6L , Mean Corpuscular Volume 97, Mean Corpuscular Hemoglobin 29.1, Mean Corpuscular Hemoglobin Concent 29.9L, Red Cell Distribution Width 17.6H, Platelet Count 78L , Mean Platelet Volume 9.2, Neutrophils (%) (Auto) , Lymphocytes (%) (Auto) , Monocytes (%) (Auto) , Eosinophils (%) (Auto) , Basophils (%) (Auto) , Differential Total Cells Counted 100, Neutrophils % (Manual) 80H, Lymphocytes % (Manual) 10L, Monocytes % (Manual) 7, Eosinophils % (Manual) 2, Basophils % (Manual) 1, Band Neutrophils 0, Platelet Estimate DecreasedL, Platelet Morphology Normal, Hypochromasia 1+, Anisocytosis 1+, Microcytosis Occasional, Macrocytosis 1+, Sodium Level 137, Potassium Level 4.2, Chloride Level 101, Carbon Dioxide Level 28, Anion Gap 8, Blood Urea Nitrogen 54H, Creatinine 4.3H, Estimat Glomerular Filtration Rate 10.2, Glucose Level 79, Uric Acid 4.5, Calcium Level 8.0L, Phosphorus Level 5.2H, Magnesium Level 2.5H, Total Bilirubin 0.7, Aspartate Amino Transf (AST/SGOT) 20, Alanine Aminotransferase (ALT/SGPT) 6L, Alkaline Phosphatase 124H, C-Reactive Protein, Quantitative 11.7H, Pro-B-Type Natriuretic Peptide 50270Y, Total Protein 6.4, Albumin 2.4L, Globulin 4.0, Albumin/Globulin Ratio 0.6L, HIV (1&2) Antibody Rapid Negative Height (Feet): 5 Height (Inches): 10.00 Weight (Pounds): 218 General Appearance: lethargic EENT: normal ENT inspection Neck: normal alignment Cardiovascular: normal peripheral pulses, normal rate, regular rhythm Respiratory/Chest: chest wall non-tender, lungs clear, normal breath sounds Abdomen: normal bowel sounds, non tender, soft Extremities: normal inspection Edema: no edema noted Arm (L), no edema noted Arm (R), no edema noted Leg (L), no edema noted Leg (R), no edema noted Pedal (L), no edema noted Pedal (R), no edema noted Generalized Neurologic: motor weakness Skin: normal pigmentation, warm/dry Assessment/Plan Problem List: (1) UTI (urinary tract infection) ICD Codes: N39.0 - Urinary tract infection, site not specified SNOMED: 55223907 (2) Acute respiratory failure ICD Codes: J96.00 - Acute respiratory failure, unspecified whether with hypoxia or hypercapnia SNOMED: 35728471 (3) History of hypertension ICD Codes: Z86.79 - Personal history of other diseases of the circulatory system SNOMED: 035764944 (4) Diabetes mellitus ICD Codes: E11.9 - Type 2 diabetes mellitus without complications SNOMED: 74854257 (5) Renal failure (ARF), acute on chronic ICD Codes: N17.9 - Acute kidney failure, unspecified; N18.9 - Chronic kidney disease, unspecified SNOMED: 488842065 Status: stable, progressing Assessment/Plan: o2 pulm tx abx pt diet cbc bmp am aru eval dc if clear Dyllan King DO Sep 10, 2020 10:55
[2020-09-10 12:00] VITALS: BP_SYST 93; BP_DIAS 47; BP_DIAS 48
--- NOTE | 2020-09-10 12:56 | Pulmonology Progress Note ---
Subjective ROS Limited/Unobtainable: No Interval Events: no new events Constitutional: Reports: no symptoms HEENT: Repors: no symptoms Respiratory: Reports: no symptoms Allergies: Coded Allergies: No Known Allergies (Unverified , 10/10/19) All Systems: reviewed and negative except above Objective Last 24 Hour Vital Signs Date Time Temp Pulse Resp B/P (MAP) Pulse Ox O2 Delivery O2 Flow Rate FiO2 09/10/20 09:00 Nasal Cannula 2.0 Nasal Cannula 2.0 09/10/20 08:00 97.7 59 20 92/47 (62) 96 09/10/20 08:00 60 09/10/20 04:00 60 09/10/20 04:00 97.7 58 16 90/52 (65) 99 09/10/20 00:00 97.9 58 16 92/50 (64) 99 09/10/20 00:00 59 09/09/20 21:00 Nasal Cannula 2.0 Nasal Cannula 2.0 09/09/20 20:00 62 09/09/20 20:00 98.2 61 18 99/55 (70) 99 09/09/20 19:47 94 Nasal Cannula 3.0 32 09/09/20 19:47 61 18 94 Nasal Cannula 3.0 32 09/09/20 16:00 60 09/09/20 16:00 97.9 61 18 98/46 (63) 96 Intake and Output 09/09/20 09/10/20 19:00 07:00 Intake Total 150 ml 240 ml Output Total 35 ml Balance 115 ml 240 ml Intake Oral 150 ml IV Total 240 ml Output Urine Total 35 ml # Voids 1 General Appearance: WD/WN HEENT: normocephalic, atraumatic Respiratory: chest wall non-tender, lungs clear Breasts: no masses Cardiovascular: normal peripheral pulses Abdomen: normal bowel sounds, soft, non tender Genitourinary: normal external genitalia Extremities: no cyanosis, no clubbing, other - right knee swelling and warmth Neurologic: data analysis intern II-XII grossly normal Lymphatic: no neck adenopathy Microbiology Date/Time Source Procedure Growth Status 09/09/20 14:58 Urine,Clean Catch Urine Culture - Preliminary NO GROWTH Resulted Laboratory Tests 09/09/20 12:59: POC Whole Blood Glucose [Pending] 09/09/20 14:58: Urine Color Hannah, Urine Appearance Very cloudy, Urine pH 5, Urine Specific [place] 1.030, Urine Protein 3+H, Urine Glucose (UA) Negative, Urine Ketones 2+H , Urine Blood 5+H, Urine Nitrite PositiveH, Urine Bilirubin 2+H, Urine Ictotest Negative, Urine Urobilinogen 1H, Urine Leukocyte Esterase 3+H, Urine RBC TntcH, Urine WBC 15-20H, Urine Squamous Epithelial Cells ModerateH, Urine Bacteria ManyH 09/09/20 17:11: POC Whole Blood Glucose 79 09/09/20 17:59: POC Whole Blood Glucose 95 09/09/20 20:51: POC Whole Blood Glucose [Pending] 09/10/20 05:42: POC Whole Blood Glucose [Pending] 09/10/20 06:39: White Blood Count 10.1, Red Blood Count 2.84L, Hemoglobin 8.3L, Hematocrit 27.6L , Mean Corpuscular Volume 97, Mean Corpuscular Hemoglobin 29.1, Mean Corpuscular Hemoglobin Concent 29.9L, Red Cell Distribution Width 17.6H, Platelet Count 78L , Mean Platelet Volume 9.2, Neutrophils (%) (Auto) , Lymphocytes (%) (Auto) , Monocytes (%) (Auto) , Eosinophils (%) (Auto) , Basophils (%) (Auto) , Differential Total Cells Counted 100, Neutrophils % (Manual) 80H, Lymphocytes % (Manual) 10L, Monocytes % (Manual) 7, Eosinophils % (Manual) 2, Basophils % (Manual) 1, Band Neutrophils 0, Platelet Estimate DecreasedL, Platelet Mo rphology Normal, Hypochromasia 1+, Anisocytosis 1+, Microcytosis Occasional, Macrocytosis 1+, Sodium Level 137, Potassium Level 4.2, Chloride Level 101, Carbon Dioxide Level 28, Anion Gap 8, Blood Urea Nitrogen 54H, Creatinine 4.3H, Estimat Glomerular Filtration Rate 10.2, Glucose Level 79, Uric Acid 4.5, Calcium Level 8.0L, Phosphorus Level 5.2H, Magnesium Level 2.5H, Total Bilirubin 0.7, Aspartate Amino Transf (AST/SGOT) 20, Alanine Aminotransferase (ALT/SGPT) 6L, Alkaline Phosphatase 124H, C-Reactive Protein, Quantitative 11.7H, Pro-B-Type Natriuretic Peptide 69939O, Total Protein 6.4, Albumin 2.4L, Globulin 4.0, Albumin/Globulin Ratio 0.6L, HIV (1&2) Antibody Rapid Negative 09/10/20 11:52: POC Whole Blood Glucose 117H Current Medications Medications (Trade) Dose Ordered Sig/[place] Route PRN Reason Start Time Stop Time Status Last Admin Dose Admin Acetaminophen (Tylenol) 650 mg Q4H PRN ORAL FEVER 08/30/20 23:45 09/29/20 23:44 Acetaminophen/ Hydrocodone Bitart ([place] 5/325) 1 tab Q6H PRN ORAL Severe Pain (Pain Scale 7-10) 09/09/20 12:15 09/16/20 12:14 09/09/20 13:04 Albuterol/ Ipratropium (Albuterol/ Ipratropium) 3 ml Q4H PRN HHN Shortness of Breath 09/07/20 09:00 09/12/20 08:59 Allopurinol (Zyloprim) 100 mg DAILY ORAL 09/09/20 09:00 10/09/20 08:59 09/10/20 08:50 Calcium Acetate (Phoslo) 667 mg TIAC ORAL 09/08/20 11:30 12/07/20 11:29 09/10/20 11:50 Chlorhexidine Gluconate (Josiane-Hex 2%) 1 applic DAILY@1999 TOPIC 09/06/20 20:00 12/05/20 19:59 09/09/20 20:56 Dextrose (Dextrose 50%) 25 ml Q30M PRN IV Hypoglycemia 08/30/20 23:45 11/28/20 23:44 Dextrose (Dextrose 50%) 50 ml Q30M PRN IV Hypoglycemia 08/30/20 23:45 11/28/20 23:44 Epoetin Shlomo (Epoetin Shlomo(ESRD on dialysis)) 10,000 unit TUE-TUE-TUE SUBQ 09/08/20 21:00 12/07/20 20:59 09/08/20 21:00 Folic Acid (Folate) 3 mg DAILY ORAL 09/02/20 09:00 10/02/20 08:59 09/10/20 08:49 Heparin Sodium (Porcine) (Heparin 5000 units/ml) 5,000 units EVERY 12 HOURS SUBQ 08/31/20 09:00 10/15/20 08:59 09/06/20 00:16 Indomethacin (Indocin) 25 mg THREE TIMES A DAY ORAL 09/04/20 13:00 10/04/20 12:59 09/10/20 08:49 Insulin Aspart (NovoLOG) BEFORE MEALS AND HS SUBQ 08/31/20 06:30 11/29/20 06:29 09/04/20 21:17 Iron Sucrose 100 mg/Sodium Chloride 60 ml @ 240 mls/hr BEDTIME IVPB 09/08/20 21:00 09/12/20 21:14 09/09/20 20:57 Levothyroxine Sodium (Synthroid) 100 mcg DAILY@0630 ORAL 09/02/20 06:30 10/02/20 06:29 09/10/20 05:45 Metoclopramide HCl (Reglan) 5 mg THREE TIMES A DAY ORAL 08/31/20 13:00 09/30/20 12:59 09/10/20 08:50 Ondansetron HCl (Zofran) 4 mg Q6H PRN IVP Nausea & Vomiting 08/30/20 23:45 09/29/20 23:44 Pantoprazole (Protonix) 40 mg EVERY 12 HOURS ORAL 08/31/20 21:00 09/30/20 20:59 09/10/20 08:49 Polyethylene Glycol (Miralax) 17 gm DAILYPRN PRN ORAL Constipation 08/30/20 23:45 09/29/20 23:44 Promethazine HCl/ Codeine (Phenergan with Codeine) 5 ml Q6H PRN ORAL cough 08/30/20 23:45 09/29/20 23:44 Theophylline (Theophylline) 80 mg Q8HR ORAL 09/09/20 14:00 12/08/20 13:59 09/10/20 05:45 Assessment/Plan Problems: (1) Acute on chronic diastolic (congestive) heart failure (2) Gout (3) Renal failure (ARF), acute on chronic (4) Diabetes mellitus (5) Left bundle branch block (LBBB) (6) Cardiac left ventricular ejection fraction greater than 40 percent (7) Grade I diastolic dysfunction (8) History of hypertension Assessment/Plan doing better awaiting for Health plan's approval of acute rehab . O2 titrate to keep sat > 92%, currently down to O2 via NC thoracentesis done, 600 cc removed from right side. DVT prophylaxis Tiana Cool MD Sep 10, 2020 12:56
--- NOTE | 2020-09-10 13:22 | Surgery Progress Note ---
Surgery Progress Note Subjective Additional Comments no acute events comfortable stable no n/v Objective Last 24 Hour Vital Signs Date Time Temp Pulse Resp B/P (MAP) Pulse Ox O2 Delivery O2 Flow Rate FiO2 09/10/20 09:00 Nasal Cannula 2.0 Nasal Cannula 2.0 09/10/20 08:00 97.7 59 20 92/47 (62) 96 09/10/20 08:00 60 09/10/20 04:00 60 09/10/20 04:00 97.7 58 16 90/52 (65) 99 09/10/20 00:00 97.9 58 16 92/50 (64) 99 09/10/20 00:00 59 09/09/20 21:00 Nasal Cannula 2.0 Nasal Cannula 2.0 09/09/20 20:00 62 09/09/20 20:00 98.2 61 18 99/55 (70) 99 09/09/20 19:47 94 Nasal Cannula 3.0 32 09/09/20 19:47 61 18 94 Nasal Cannula 3.0 32 09/09/20 16:00 60 09/09/20 16:00 97.9 61 18 98/46 (63) 96 I&O Intake and Output 09/09/20 09/10/20 19:00 07:00 Intake Total 150 ml 240 ml Output Total 35 ml Balance 115 ml 240 ml Intake Oral 150 ml IV Total 240 ml Output Urine Total 35 ml # Voids 1 Dressing: saturated Cardiovascular: RSR Respiratory: decreased breath sounds Abdomen: soft, non-tender, present bowel sounds Extremities: no tenderness, no cyanosis Laboratory Tests Test 09/09/20 14:58 09/09/20 17:11 09/09/20 17:59 09/09/20 20:51 Urine Color Hannah Urine Appearance Very cloudy Urine pH 5 (4.5-8.0) Urine Specific [place] 1.030 (1.005-1.035) Urine Protein 3+ (NEGATIVE) H Urine Glucose (UA) Negative (NEGATIVE) Urine Ketones 2+ (NEGATIVE) H Urine Blood 5+ (NEGATIVE) H Urine Nitrite Positive (NEGATIVE) H Urine Bilirubin 2+ (NEGATIVE) H Urine Ictotest Negative (NEGATIVE) Urine Urobilinogen 1 MG/DL (0.0-1.0) H Urine Leukocyte Esterase 3+ (NEGATIVE) H Urine RBC Tntc /HPF (0 - 2) H Urine WBC 15-20 /HPF (0 - 2) H Urine Squamous Epithelial Cells Moderate /LPF (NONE/OCC) H Urine Bacteria Many /HPF (NONE) H POC Whole Blood Glucose 79 MG/DL (74-106) 95 MG/DL (74-106) Pending Test 09/10/20 05:42 09/10/20 06:39 09/10/20 11:52 POC Whole Blood Glucose Pending 117 MG/DL (74-106) H White Blood Count 10.1 K/UL (4.8-10.8) Red Blood Count 2.84 M/UL (4.20-5.40) L Hemoglobin 8.3 G/DL (12.0-16.0) L Hematocrit 27.6 % (37.0-47.0) L Mean Corpuscular Volume 97 FL (80-99) Mean Corpuscular Hemoglobin 29.1 PG (27.0-31.0) Mean Corpuscular Hemoglobin Concent 29.9 G/DL (32.0-36.0) L Red Cell Distribution Width 17.6 % (11.6-14.8) H Platelet Count 78 K/UL (150-450) L Mean Platelet Volume 9.2 FL (6.5-10.1) Neutrophils (%) (Auto) % (45.0-75.0) Lymphocytes (%) (Auto) % (20.0-45.0) Monocytes (%) (Auto) % (1.0-10.0) Eosinophils (%) (Auto) % (0.0-3.0) Basophils (%) (Auto) % (0.0-2.0) Differential Total Cells Counted 100 Neutrophils % (Manual) 80 % (45-75) H Lymphocytes % (Manual) 10 % (20-45) L Monocytes % (Manual) 7 % (1-10) Eosinophils % (Manual) 2 % (0-3) Basophils % (Manual) 1 % (0-2) Band Neutrophils 0 % (0-8) Platelet Estimate Decreased L Platelet Morphology Normal Hypochromasia 1+ Anisocytosis 1+ Microcytosis Occasional Macrocytosis 1+ Sodium Level 137 MMOL/L (136-145) Potassium Level 4.2 MMOL/L (3.5-5.1) Chloride Level 101 MMOL/L (98-107) Carbon Dioxide Level 28 MMOL/L (21-32) Anion Gap 8 mmol/L (5-15) Blood Urea Nitrogen 54 mg/dL (7-18) H Creatinine 4.3 MG/DL (0.55-1.30) H Estimat Glomerular Filtration Rate 10.2 mL/min (>60) Glucose Level 79 MG/DL (74-106) Uric Acid 4.5 MG/DL (2.6-7.2) Calcium Level 8.0 MG/DL (8.5-10.1) L Phosphorus Level 5.2 MG/DL (2.5-4.9) H Magnesium Level 2.5 MG/DL (1.8-2.4) H Total Bilirubin 0.7 MG/DL (0.2-1.0) Aspartate Amino Transf (AST/SGOT) 20 U/L (15-37) Alanine Aminotransferase (ALT/SGPT) 6 U/L (12-78) L Alkaline Phosphatase 124 U/L (46-116) H C-Reactive Protein, Quantitative 11.7 mg/dL (0.00-0.90) H Pro-B-Type Natriuretic Peptide 13282 pg/mL (0-125) H Total Protein 6.4 G/DL (6.4-8.2) Albumin 2.4 G/DL (3.4-5.0) L Globulin 4.0 g/dL Albumin/Globulin Ratio 0.6 (1.0-2.7) L HIV (1&2) Antibody Rapid Negative (NEGATIVE) Plan Problems: (1) Acute on chronic diastolic (congestive) heart failure (2) Anemia (3) Acute respiratory failure Assessment & Plan: Large right pleural effusion persists, unchanged. Bilateral interstitial and airspace edema, cardiomegaly persists, probably unchanged allowing for differences in technique and inspiration (4) ACS (acute coronary syndrome) (5) History of hypertension (6) Moderate pulmonary arterial systolic hypertension (7) Left bundle branch block (LBBB) (8) Diabetes mellitus (9) Diabetic nephropathy (10) Renal failure (ARF), acute on chronic (11) Hyperkalemia (12) Bacteremia (13) CAD (coronary artery disease) (14) Hypothyroidism (15) Cardiac left ventricular ejection fraction greater than 40 percent (16) Grade I diastolic dysfunction (17) UTI (urinary tract infection) (18) Ulcers of both lower legs (19) Open wounds involving multiple regions of lower extremity Assessment & Plan: Patient identified admission having bilateral lower extremity edema open wounds as well as necrotic ulcerations. Patient states she has had this for some time now and acutely worsening as well. Bilateral lower leg wounds do to blisters from edema. Right medial lower leg wound 2.1x4.2x0.2 dark brown scab . Right anterior lower leg wound 5.6x5.3x0.2 pink wound bed. Right distal anterior lower leg 4.0x6.0x0.2 pink wound bed . Large amount serous drainage right leg wounds , Xeroform ,gauze,abd pad and kerlix applied change every shift. Left lower leg wound 3.7x5.0x0.3 100% green slough large amount serous drainage noted with small blisters ifeoma wound, Thera Honey, gauze,abd pad and kerlix applied, change every shift. Local wound care plan initiate Nutritional optimization Turn every 2 hours Elevate extremities Thank you will follow recommendations Right deep veins: Unremarkable. No DVT in the right common femoral, femoral, proximal deep femoral or popliteal veins. The veins demonstrate normal color flow, are normally compressible, with normal phasic flow and/or augmentation response. Right superficial veins: Unremarkable. No thrombus in the visualized right great saphenous vein. Left deep veins: Unremarkable. No DVT in the left common femoral, femoral, proximal deep femoral or popliteal veins. The veins demonstrate normal color flow, are normally compressible, with normal phasic flow and/or augmentation response. Left superficial veins: Unremarkable. No thrombus in the visualized left great saphenous vein. Soft tissues: No acute findings. No popliteal cyst. IMPRESSION: Normal bilateral lower extremity duplex venous ultrasound. DAILY ESTIMATED NEEDS: Needs based on ARF, now HD 65.7kg abw 25-30 kcals/kg [id number] total kcals 1.25-1.8 g protein/kg 82-118 g total protein Fluid per MD, HD pending NUTRITION DIAGNOSIS: Increased pro needs r/t renal dysfunction as evidenced by pt w/ ARF, w/ now pending HD, K on adm (5.8), elev BUN (81), elev Creat (3.8), elev phos and mg. CURRENT DIET:Renal/ CCHO MED PO DIET RECOMMENDATIONS: Renal / CCHO LOW diet + high pro snacks in b/w meals ADDITIONAL RECOMMENDATIONS: 1) Maintain calibrated bed scale wts 2) High pro snacks in b/w meals 3) Rec WC eval-> add nephrovite 1 tab daily Vit C per Omar Jolley Sep 10, 2020 13:21
--- NOTE | 2020-09-10 13:48 | Nephrology Progress Note ---
Assessment/Plan Problem List: (1) Renal failure (ARF), acute on chronic (2) Hyperkalemia (3) Hypothyroidism (4) Acute on chronic diastolic (congestive) heart failure (5) Diabetic nephropathy (6) Pneumonia Assessment: Leukocytosis, abnormal chest x-ray (7) Anemia Assessment 1) Renal failure (ARF), acute on chronic (2) Diabetes mellitus (3) Hypoglycemia (4) Hyperkalemia (5) Diabetic nephropathy (6) H/o Pleural effusion (7) Morbid obesity (8) Low Iron Anemia (9) HypoThyroidism Plan September 10: Patient due for dialysis and ultrafiltration today. Labs reviewed. And medication list reviewed. September 09: Patient was dialyzed yesterday. Due for dialysis and ultrafiltration tomorrow. Will start theophylline for although lumbar diet and also improvement of the heart rate. Recheck TSH in a.m. Continue as is. DC Chan catheter. September 08: Patient due for dialysis and ultrafiltration today. Labs reviewed. PhosLo given. Continue as is. September 07: Patient was dialyzed 2 days in a row. Ultra filtrated 3 L a day. Patient continues to be edematous however much less. Will dialyze again tomorrow with ultrafiltration. Will monitor renal parameters. September 06: Patient was dialyzed yesterday. Ultrafiltration was done. Patient remains edematous. Will do another dialysis and aim 3 L fluid removal as tolerates. Discontinue IV Lasix and oral hydralazine. Will adjust blood pressure medication as needed. Discussed with RN, antibiotics intravenously if possible should be changed to oral since there is no IV line available. 1 dose of Venofer 200 mg ordered to be given during dialysis. Subcutaneous Epogen orde red for anemia. September 05: New 24-hour urine suggestive of creatinine clearance of 3. Patient due for insertion of dialysis catheter. Hemodialysis and ultrafiltration after insertion of catheter. September 04: New 24-hour urine test is in process. Discussed with RN. Patient was short of breath overnight. ABG ordered. 1 dose of Zaroxolyn ordered. Patient has fluid overload, and need ultrafiltration. Blood cultures negative. Leukocytosis resolved. Will order placement of permacath and dialysis and ultrafiltration. September 03: The 24-hour urine results appears to be an error in view of total volume compared to intake and output records. Today's labs reviewed. Serum creatinine higher. Talk to the nursing charge of the floor and will order another 24-hour urine collection. Meanwhile continue per ID treatment for UTI and leukocytosis. Dexamethasone on the medication list was questioned. Patient may require dialysis if continues to have worsening renal parameters. September 02: Consent for dialysis catheter is taken. Catheter placement deferred due to leukocytosis. Surveillance blood culture ordered. Urine culture ordered. Blood pressure medication adjusted. 24-hour urine for creatinine clearance and total protein pending. Previously: Chan Cath 24 H CrCl and total protein ordered Off IV fluids, on IV Lasix Adjust BP meds Previous 2D echocardiogram ejection fraction is reported to 50% Previous Kidney ultrasound noted. Current kidney ultrasound results below Anemia work-up As needed Kayexalate for high potassium Keep blood pressure and blood sugar in check Monitor renal parameters Requires HD treatment [facility] KIDNEY IMPRESSION: 1. Ascites. 2. Bilateral pleural effusions. 3. Complex right renal cysts of uncertain etiology. This complex cyst is unchanged from the study of 01/12/2020. 4. Mildly atrophic right kidney. 5. Magnetic resonance imaging of the abdomen with gadolinium administration is advised for further evaluation of complex right renal cyst. Subjective ROS Limited/Unobtainable: No Constitutional: Reports: malaise Objective Objective Last 24 Hour Vital Signs Date Time Temp Pulse Resp B/P (MAP) Pulse Ox O2 Delivery O2 Flow Rate FiO2 09/10/20 12:00 60 09/10/20 12:00 97.7 65 20 93/48 (63) 96 09/10/20 09:00 Nasal Cannula 2.0 Nasal Cannula 2.0 09/10/20 08:00 97.7 59 20 92/47 (62) 96 09/10/20 08:00 60 09/10/20 04:00 60 09/10/20 04:00 97.7 58 16 90/52 (65) 99 09/10/20 00:00 97.9 58 16 92/50 (64) 99 09/10/20 00:00 59 09/09/20 21:00 Nasal Cannula 2.0 Nasal Cannula 2.0 09/09/20 20:00 62 09/09/20 20:00 98.2 61 18 99/55 (70) 99 09/09/20 19:47 94 Nasal Cannula 3.0 32 09/09/20 19:47 61 18 94 Nasal Cannula 3.0 32 09/09/20 16:00 60 09/09/20 16:00 97.9 61 18 98/46 (63) 96 Intake and Output 09/09/20 09/10/20 19:00 07:00 Intake Total 150 ml 240 ml Output Total 35 ml Balance 115 ml 240 ml Intake Oral 150 ml IV Total 240 ml Output Urine Total 35 ml # Voids 1 Current Medications Medications (Trade) Dose Ordered Sig/[place] Route PRN Reason Start Time Stop Time Status Last Admin Dose Admin Acetaminophen (Tylenol) 650 mg Q4H PRN ORAL FEVER 08/30/20 23:45 09/29/20 23:44 Acetaminophen/ Hydrocodone Bitart ([place] 5/325) 1 tab Q6H PRN ORAL Severe Pain (Pain Scale 7-10) 09/09/20 12:15 09/16/20 12:14 09/09/20 13:04 Albuterol/ Ipratropium (Albuterol/ Ipratropium) 3 ml Q4H PRN HHN Shortness of Breath 09/07/20 09:00 09/12/20 08:59 Allopurinol (Zyloprim) 100 mg DAILY ORAL 09/09/20 09:00 10/09/20 08:59 09/10/20 08:50 Calcium Acetate (Phoslo) 667 mg TIAC ORAL 09/08/20 11:30 12/07/20 11:29 09/10/20 11:50 Chlorhexidine Gluconate (Josiane-Hex 2%) 1 applic DAILY@1999 TOPIC 09/06/20 20:00 12/05/20 19:59 09/09/20 20:56 Dextrose (Dextrose 50%) 25 ml Q30M PRN IV Hypoglycemia 08/30/20 23:45 11/28/20 23:44 Dextrose (Dextrose 50%) 50 ml Q30M PRN IV Hypoglycemia 08/30/20 23:45 11/28/20 23:44 Epoetin Shlomo (Epoetin Shlomo(ESRD on dialysis)) 10,000 unit TUE-TUE-TUE SUBQ 09/08/20 21:00 12/07/20 20:59 09/08/20 21:00 Folic Acid (Folate) 3 mg DAILY ORAL 09/02/20 09:00 10/02/20 08:59 09/10/20 08:49 Heparin Sodium (Porcine) (Heparin 5000 units/ml) 5,000 units EVERY 12 HOURS SUBQ 08/31/20 09:00 10/15/20 08:59 09/06/20 00:16 Indomethacin (Indocin) 25 mg THREE TIMES A DAY ORAL 09/04/20 13:00 10/04/20 12:59 09/10/20 13:08 Insulin Aspart (NovoLOG) BEFORE MEALS AND HS SUBQ 08/31/20 06:30 11/29/20 06:29 09/04/20 21:17 Iron Sucrose 100 mg/Sodium Chloride 60 ml @ 240 mls/hr BEDTIME IVPB 09/08/20 21:00 09/12/20 21:14 09/09/20 20:57 Levothyroxine Sodium (Synthroid) 100 mcg DAILY@0630 ORAL 09/02/20 06:30 10/02/20 06:29 09/10/20 05:45 Metoclopramide HCl (Reglan) 5 mg THREE TIMES A DAY ORAL 08/31/20 13:00 09/30/20 12:59 09/10/20 13:08 Ondansetron HCl (Zofran) 4 mg Q6H PRN IVP Nausea & Vomiting 08/30/20 23:45 09/29/20 23:44 Pantoprazole (Protonix) 40 mg EVERY 12 HOURS ORAL 08/31/20 21:00 09/30/20 20:59 09/10/20 08:49 Polyethylene Glycol (Miralax) 17 gm DAILYPRN PRN ORAL Constipation 08/30/20 23:45 09/29/20 23:44 Promethazine HCl/ Codeine (Phenergan with Codeine) 5 ml Q6H PRN ORAL cough 08/30/20 23:45 09/29/20 23:44 Theophylline (Theophylline) 80 mg Q8HR ORAL 09/09/20 14:00 12/08/20 13:59 09/10/20 13:08 Laboratory Tests 09/09/20 14:58: Urine Color [place], Urine Appearance Very cloudy, Urine pH 5, Urine Specific [place] 1.030, Urine Protein 3+H, Urine Glucose (UA) Negative, Urine Ketones 2+H , Urine Blood 5+H, Urine Nitrite PositiveH, Urine Bilirubin 2+H, Urine Ictotest Negative, Urine Urobilinogen 1H, Urine Leukocyte Esterase 3+H, Urine RBC TntcH, Urine WBC 15-20H, Urine Squamous Epithelial Cells ModerateH, Urine Bacteria M anyH 09/09/20 17:11: POC Whole Blood Glucose 79 09/09/20 17:59: POC Whole Blood Glucose 95 09/09/20 20:51: POC Whole Blood Glucose [Pending] 09/10/20 05:42: POC Whole Blood Glucose [Pending] 09/10/20 06:39: White Blood Count 10.1, Red Blood Count 2.84L, Hemoglobin 8.3L, Hematocrit 27.6L , Mean Corpuscular Volume 97, Mean Corpuscular Hemoglobin 29.1, Mean Corpuscular Hemoglobin Concent 29.9L, Red Cell Distribution Width 17.6H, Platelet Count 78L, Mean Platelet Volume 9.2, Neutrophils (%) (Auto) , Lymphocytes (%) (Auto) , Monocytes (%) (Auto) , Eosinophils (%) (Auto) , Basophils (%) (Auto) , Differential Total Cells Counted 100, Neutrophils % (Manual) 80H, Lymphocytes % (Manual) 10L, Monocytes % (Manual) 7, Eosinophils % (Manual) 2, Basophils % (Manual) 1, Band Neutrophils 0, Platelet Estimate DecreasedL, Platelet Morphology Normal, Hypochromasia 1+, Anisocytosis 1+, Microcytosis Occasional, Macrocytosis 1+, Sodium Level 137, Potassium Level 4.2, Chloride Level 101, Carbon Dioxide Level 28, Anion Gap 8, Blood Urea Nitrogen 54H, Creatinine 4.3H, Estimat Glomerular Filtration Rate 10.2, Glucose Level 79, Uric Acid 4.5, Calcium Level 8.0L, Phosphorus Level 5.2H, Magnesium Level 2.5H, Total Bilirubin 0.7, Aspartate Amino Transf (AST/SGOT) 20, Alanine Aminotransferase (ALT/SGPT) 6L, Alkaline Phosphatase 124H, C-Reactive Protein, Quantitative 11.7H, Pro-B-Type Natriuretic Peptide 25300N, Total Protein 6.4, Albumin 2.4L, Globulin 4.0, Albumin/Globulin Ratio 0.6L, HIV (1&2) Antibody Rapid Negative 09/10/20 11:52: POC Whole Blood Glucose 117H Height (Feet): 5 Height (Inches): 10.00 Weight (Pounds): 218 General Appearance: no apparent distress, lethargic Cardiovascular: normal rate Respiratory/Chest: decreased breath sounds Abdomen: soft Jay Severino MD Sep 10, 2020 13:48
[2020-09-10 16:00] VITALS: BP 81/51
[2020-09-10 20:00] VITALS: BP 98/54
[2020-09-10] MEDS: Epoetin Alfa-EPBX(ESRD on dialysis)10,000 unit/ml vial SUBQ SCH (21:28)
[2020-09-10] MEDS: Iron Sucrose 100 MG in NS 55 ML IVPB SCH (21:28)
[2020-09-10] MEDS: Dyna-Hex 2% Top Sol 2oz TOPIC SCH (21:28)
[2020-09-11] VITALS: BP 100/60
[2020-09-11 04:00] VITALS: BP 147/78
[2020-09-11] MEDS: Theophylline 80mg/15ml ORAL SCH ×3 (06:20→21:02)
--- NOTE | 2020-09-11 06:20 | General Progress Note ---
Subjective Allergies: Coded Allergies: No Known Allergies (Unverified , 10/10/19) All Systems: reviewed and negative except above Subjective events noted - interval notes reviewed glucose values are stable without hypoglycemia Item Value Date Time Bedside Blood Glucose 106 mg/dl 09/10/20 2100 Bedside Blood Glucose 126 mg/dl H 09/10/20 1840 Bedside Blood Glucose 117 mg/dl 09/10/20 1130 Bedside Blood Glucose 88 mg/dl 09/10/20 0630 Objective Last 24 Hour Vital Signs Date Time Temp Pulse Resp B/P (MAP) Pulse Ox O2 Delivery O2 Flow Rate FiO2 09/11/20 04:00 62 09/11/20 04:00 97.7 59 20 147/78 (101) 96 09/11/20 00:00 97.0 61 18 100/60 (73) 94 09/11/20 00:00 64 09/10/20 21:00 Nasal Cannula 4.0 Nasal Cannula 4.0 09/10/20 20:00 63 09/10/20 20:00 97.2 60 20 98/54 (69) 95 09/10/20 16:00 97.5 61 20 81/51 (61) 98 09/10/20 16:00 63 09/10/20 12:00 97.7 65 20 93/47 (62) 96 09/10/20 12:00 60 09/10/20 12:00 97.7 65 20 93/48 (63) 96 09/10/20 09:00 Nasal Cannula 2.0 Nasal Cannula 2.0 09/10/20 08:00 97.7 59 20 92/47 (62) 96 09/10/20 08:00 60 09/10/20 07:18 95 Nasal Cannula 3.0 32 09/10/20 07:18 60 18 95 Nasal Cannula 3.0 32 Intake and Output 09/10/20 09/11/20 19:00 07:00 Intake Total 236 ml Balance 236 ml Intake Oral 236 ml # Bowel Movements 1 Laboratory Tests 09/10/20 06:39: White Blood Count 10.1, Red Blood Count 2.84L, Hemoglobin 8.3L, Hematocrit 27.6L , Mean Corpuscular Volume 97, Mean Corpuscular Hemoglobin 29.1, Mean Corpuscular Hemoglobin Concent 29.9L, Red Cell Distribution Width 17.6H, Platelet Count 78L, Mean Platelet Volume 9.2, Neutrophils (%) (Auto) , Lymphocytes (%) (Auto) , Monocytes (%) (Auto) , Eosinophils (%) (Auto) , Basophils (%) (Auto) , Differential Total Cells Counted 100, Neutrophils % (Manual) 80H, Lymphocytes % (Manual) 10L, Monocytes % (Manual) 7, Eosinophils % (Manual) 2, Basophils % (Manual) 1, Band Neutrophils 0, Platelet Estimate DecreasedL, Platelet Morphology Normal, Hypochromasia 1+, Anisocytosis 1+, Microcytosis Occasional, Macrocytosis 1+, Sodium Level 137, Potassium Level 4.2, Chloride Level 101, Carbon Dioxide Level 28, Anion Gap 8, Blood Urea Nitrogen 54H, Creatinine 4.3H, Estimat Glomerular Filtration Rate 10.2, Glucose Level 79, Uric Acid 4.5, Calcium Level 8.0L, Phosphorus Level 5.2H, Magnesium Level 2.5H, Total Bilirubin 0.7, Aspartate Amino Transf (AST/SGOT) 20, Alanine Aminotransferase (ALT/SGPT) 6L, Alkaline Phosphatase 124H, C-Reactive Protein, Quantitative 11.7H, Pro-B-Type Natriuretic Peptide 76271J, Total Protein 6.4, Albumin 2.4L, Globulin 4.0, Albumin/Globulin Ratio 0.6L, HIV (1&2) Antibody Rapid Negative 09/10/20 11:52: POC Whole Blood Glucose 117H 09/10/20 15:43: POC Whole Blood Glucose 124H 09/10/20 18:40: POC Whole Blood Glucose 126H Height (Feet): 5 Height (Inches): 10.00 Weight (Pounds): 218 General Appearance: no apparent distress Neck: normal alignment Cardiovascular: normal rate Respiratory/Chest: lungs clear Abdomen: normal bowel sounds Pelvis: normal external exam Objective Current Medications Medications (Trade) Dose Ordered Sig/[place] Route PRN Reason Start Time Stop Time Status Last Admin Dose Admin Acetaminophen (Tylenol) 650 mg Q4H PRN ORAL FEVER 08/30/20 23:45 09/29/20 23:44 Acetaminophen/ Hydrocodone Bitart ([place] 5/325) 1 tab Q6H PRN ORAL Severe Pain (Pain Scale 7-10) 09/09/20 12:15 09/16/20 12:14 09/09/20 13:04 Albuterol/ Ipratropium (Albuterol/ Ipratropium) 3 ml Q4H PRN HHN Shortness of Breath 09/07/20 09:00 09/12/20 08:59 Allopurinol (Zyloprim) 100 mg DAILY ORAL 09/09/20 09:00 10/09/20 08:59 09/10/20 08:50 Calcium Acetate (Phoslo) 667 mg TIAC ORAL 09/08/20 11:30 12/07/20 11:29 09/10/20 15:41 Chlorhexidine Gluconate (Josiane-Hex 2%) 1 applic DAILY@2000 TOPIC 09/06/20 20:00 12/05/20 19:59 09/10/20 21:28 Dexamethasone (Decadron) 6 mg DAILY ORAL 09/10/20 21:00 09/19/20 09:01 09/10/20 21:29 Dextrose (Dextrose 50%) 25 ml Q30M PRN IV Hypoglycemia 08/30/20 23:45 11/28/20 23:44 Dextrose (Dextrose 50%) 50 ml Q30M PRN IV Hypoglycemia 08/30/20 23:45 11/28/20 23:44 Epoetin Shlomo (Epoetin Shlomo(ESRD on dialysis)) 10,000 unit TUE-TUE-TUE SUBQ 09/08/20 21:00 12/07/20 20:59 09/10/20 21:28 Folic Acid (Folate) 3 mg DAILY ORAL 09/02/20 09:00 10/02/20 08:59 09/10/20 08:49 Heparin Sodium (Porcine) (Heparin 5000 units/ml) 5,000 units EVERY 12 HOURS SUBQ 08/31/20 09:00 10/15/20 08:59 09/06/20 00:16 Indomethacin (Indocin) 25 mg THREE TIMES A DAY ORAL 09/04/20 13:00 10/04/20 12:59 09/10/20 18:14 Insulin Aspart (NovoLOG) BEFORE MEALS AND HS SUBQ 08/31/20 06:30 11/29/20 06:29 09/04/20 21:17 Iron Sucrose 100 mg/Sodium Chloride 60 ml @ 240 mls/hr BEDTIME IVPB 09/08/20 21:00 09/12/20 21:14 09/10/20 21:28 Levothyroxine Sodium (Synthroid) 100 mcg DAILY@0630 ORAL 09/02/20 06:30 10/02/20 06:29 09/10/20 05:45 Metoclopramide HCl (Reglan) 5 mg THREE TIMES A DAY ORAL 08/31/20 13:00 09/30/20 12:59 09/10/20 18:14 Ondansetron HCl (Zofran) 4 mg Q6H PRN IVP Nausea & Vomiting 08/30/20 23:45 09/29/20 23:44 Pantoprazole (Protonix) 40 mg EVERY 12 HOURS ORAL 08/31/20 21:00 09/30/20 20:59 09/10/20 21:29 Polyethylene Glycol (Miralax) 17 gm DAILYPRN PRN ORAL Constipation 08/30/20 23:45 09/29/20 23:44 Promethazine HCl/ Codeine (Phenergan with Codeine) 5 ml Q6H PRN ORAL cough 08/30/20 23:45 09/29/20 23:44 Theophylline (Theophylline) 80 mg Q8HR ORAL 09/09/20 14:00 12/08/20 13:59 09/10/20 21:28 Assessment/Plan Problem List: (1) Renal failure (ARF), acute on chronic ICD Codes: N17.9 - Acute kidney failure, unspecified; N18.9 - Chronic kidney disease, unspecified SNOMED: 056302258 (2) CAD (coronary artery disease) ICD Codes: I25.10 - Atherosclerotic heart disease of [place] coronary artery without angina pectoris SNOMED: 64860314 (3) Diabetes mellitus ICD Codes: E11.9 - Type 2 diabetes mellitus without complications SNOMED: 61523163 (4) Left bundle branch block (LBBB) ICD Codes: I44.7 - Left bundle-branch block, unspecified SNOMED: 01086795 (5) Hypothyroidism ICD Codes: E03.9 - Hypothyroidism, unspecified SNOMED: 04953627 Status: stable, progressing Assessment/Plan: no need for basal insulin continue Novolog sliding scale ac / hs continue LT4 100 mcg daily repeat thyroid function next week Jake Alexander MD Sep 11, 2020 06:20
[2020-09-11] MEDS: NovoLOG Insulin Flexpen SUBQ SCH ×4 (06:30→21:00)
--- NOTE | 2020-09-11 06:30 | Hematology/Onc Progress Note ---
Assessment/Plan Assessment/Plan Assessment and Recs: # Anemia of chronic disease due to underlying chronic medical issues, multifactorial v Gi bleed --> Anemia workup has been ordered, rule out gi bleed --> No evidence of hemolysis is noted, peripheral smear has been reviewed. --> Hgb goal >7. Transfuse prn. --> EPOGEN AND IV IRON STARTED, CONTINUE --> Medications have been reviewed --> hgb 7.7-->8-->8.4-->8 --> egd w/ colo 01/15/20 Gastritis, status post biopsy. Total of 11 polyps removed, Internal hemorrhoids. # Thromocytopenia likely related to infection v reactive process --> hep and hiv are neg --> imaging abd has been reviewed --> peripheral smear noted --> plt 75 # Coagulation defect, multifactorial usually related to poor PO intake versus medications, versus hepatitis v cirrhosis --> administer Vitamin K if patient is bleeding or FFP if the INR is >10 --> hold off on ffp unless active procedure/bleeding, first begin with vit K 10 --> mixing study as needed # Renal failure (ARF), acute on chronic --> ivf as per renal --> renal us reviewed --> improved --> HD as per renal # Hypoglycemia -> endo eval prn # Pleural effusion --> diuresis as needed --> monitor ivf --> HD # Hyperkalemia # Obesity # Dvt ppx heparin sq The timing of this note does not necessarily reflect the time of the patient was seen. Greatly appreciate consultation. Subjective Constitutional: Denies: no symptoms, chills, fever, malaise, weakness, other HEENT: Denies: no symptoms, eye pain, blurred vision, tearing, double vision, ear pain, ear discharge, nose pain, nose congestion, throat pain, throat swelling, mouth pain, mouth swelling, other Cardiovascular: Denies: no symptoms, chest pain, edema, irregular heart rate, lightheadedness, palpitations, syncope, other Respiratory: Denies: no symptoms, cough, shortness of breath, SOB with excertion, SOB at rest, sputum, wheezing, other Neurologic/Psychiatric: Denies: no symptoms, anxiety, depressed, emotional problems, headache, numbness, paresthesia, pre-existing deficit, seizure, tingling, tremors, weakness, other Endocrine: Denies: no symptoms, excessive sweating, flushing, intolerance to cold, intolerance to heat, increased hunger, increased thirst, increased urine, unexplained weight gain, unexplained weight loss, other Hematologic/Lymphatic: Denies: no symptoms, anemia, easy bleeding, easy brui sing, adenopathy, other Allergies: Coded Allergies: No Known Allergies (Unverified , 10/10/19) Subjective 09/08 labs reviewed, hd as per renal, fluid overload improved, labs noted, with dropping plt 09/09 pending plt count this am, on abx, broad spectrum, no other events 09/10 labs pending, is comfortable, is on 3l nc, no bleeding 09/11 on 5L weaning, no night sweats, meds reviewed Objective Objective Current Medications Medications (Trade) Dose Ordered Sig/Bra[place] Route PRN Reason Start Time Stop Time Status Last Admin Dose Admin Acetaminophen (Tylenol) 650 mg Q4H PRN ORAL FEVER 08/30/20 23:45 09/29/20 23:44 Acetaminophen/ Hydrocodone Bitart ([place] 5/325) 1 tab Q6H PRN ORAL Severe Pain (Pain Scale 7-10) 09/09/20 12:15 09/16/20 12:14 09/09/20 13:04 Albuterol/ Ipratropium (Albuterol/ Ipratropium) 3 ml Q4H PRN HHN Shortness of Breath 09/07/20 09:00 09/12/20 08:59 Allopurinol (Zyloprim) 100 mg DAILY ORAL 09/09/20 09:00 10/09/20 08:59 09/10/20 08:50 Calcium Acetate (Phoslo) 667 mg TIAC ORAL 09/08/20 11:30 12/07/20 11:29 09/11/20 06:20 Chlorhexidine Gluconate (Josiane-Hex 2%) 1 applic DAILY@1999 TOPIC 09/06/20 20:00 12/05/20 19:59 09/10/20 21:28 Dexamethasone (Decadron) 6 mg DAILY ORAL 09/10/20 21:00 09/19/20 09:01 09/10/20 21:29 Dextrose (Dextrose 50%) 25 ml Q30M PRN IV Hypoglycemia 08/30/20 23:45 11/28/20 23:44 Dextrose (Dextrose 50%) 50 ml Q30M PRN IV Hypoglycemia 08/30/20 23:45 11/28/20 23:44 Epoetin Shlomo (Epoetin Shlomo(ESRD on dialysis)) 10,000 unit TUE-TUE-TUE SUBQ 09/08/20 21:00 12/07/20 20:59 09/10/20 21:28 Folic Acid (Folate) 3 mg DAILY ORAL 09/02/20 09:00 10/02/20 08:59 09/10/20 08:49 Heparin Sodium (Porcine) (Heparin 5000 units/ml) 5,000 units EVERY 12 HOURS SUBQ 08/31/20 09:00 10/15/20 08:59 09/06/20 00:16 Indomethacin (Indocin) 25 mg THREE TIMES A DAY ORAL 09/04/20 13:00 10/04/20 12:59 09/10/20 18:14 Insulin Aspart (NovoLOG) BEFORE MEALS AND HS SUBQ 08/31/20 06:30 11/29/20 06:29 09/04/20 21:17 Iron Sucrose 100 mg/Sodium Chloride 60 ml @ 240 mls/hr BEDTIME IVPB 09/08/20 21:00 09/12/20 21:14 09/10/20 21:28 Levothyroxine Sodium (Synthroid) 100 mcg DAILY@0630 ORAL 09/02/20 06:30 10/02/20 06:29 09/11/20 06:20 Metoclopramide HCl (Reglan) 5 mg THREE TIMES A DAY ORAL 08/31/20 13:00 09/30/20 12:59 09/10/20 18:14 Ondansetron HCl (Zofran) 4 mg Q6H PRN IVP Nausea & Vomiting 08/30/20 23:45 09/29/20 23:44 Pantoprazole (Protonix) 40 mg EVERY 12 HOURS ORAL 08/31/20 21:00 09/30/20 20:59 09/10/20 21:29 Polyethylene Glycol (Miralax) 17 gm DAILYPRN PRN ORAL Constipation 08/30/20 23:45 09/29/20 23:44 Promethazine HCl/ Codeine (Phenergan with Codeine) 5 ml Q6H PRN ORAL cough 08/30/20 23:45 09/29/20 23:44 Theophylline (Theophylline) 80 mg Q8HR ORAL 09/09/20 14:00 12/08/20 13:59 09/11/20 06:20 Last 24 Hour Vital Signs Date Time Temp Pulse Resp B/P (MAP) Pulse Ox O2 Delivery O2 Flow Rate FiO2 09/11/20 04:00 62 09/11/20 04:00 97.7 59 20 147/78 (101) 96 09/11/20 00:00 97.0 61 18 100/60 (73) 94 09/11/20 00:00 64 09/10/20 21:00 Nasal Cannula 4.0 Nasal Cannula 4.0 09/10/20 20:00 63 09/10/20 20:00 97.2 60 20 98/54 (69) 95 09/10/20 16:00 97.5 61 20 81/51 (61) 98 09/10/20 16:00 63 09/10/20 12:00 97.7 65 20 93/47 (62) 96 09/10/20 12:00 60 09/10/20 12:00 97.7 65 20 93/48 (63) 96 09/10/20 09:00 Nasal Cannula 2.0 Nasal Cannula 2.0 09/10/20 08:00 97.7 59 20 92/47 (62) 96 09/10/20 08:00 60 09/10/20 07:18 95 Nasal Cannula 3.0 32 09/10/20 07:18 60 18 95 Nasal Cannula 3.0 32 09/10/20 04:00 60 09/10/20 04:00 97.7 58 16 90/52 (65) 99 09/10/20 00:00 97.9 58 16 92/50 (64) 99 09/10/20 00:00 59 09/09/20 21:00 Nasal Cannula 2.0 Nasal Cannula 2.0 09/09/20 20:00 62 09/09/20 20:00 98.2 61 18 99/55 (70) 99 09/09/20 19:47 94 Nasal Cannula 3.0 32 09/09/20 19:47 61 18 94 Nasal Cannula 3.0 32 09/09/20 16:00 60 09/09/20 16:00 97.9 61 18 98/46 (63) 96 09/09/20 12:00 96.8 62 19 102/53 (69) 100 09/09/20 12:00 62 09/09/20 09:00 Nasal Cannula 2.0 Nasal Cannula 2.0 09/09/20 08:00 60 09/09/20 08:00 98.1 64 20 110/74 (86) 96 09/09/20 07:00 96 Nasal Cannula 2.0 28 09/09/20 07:00 64 18 96 Nasal Cannula 2.0 28 Intake and Output 09/10/20 09/11/20 19:00 07:00 Intake Total 236 ml Balance 236 ml Intake Oral 236 ml # Bowel Movements 1 Labs Test 09/08/20 11:21 09/08/20 16:41 09/08/20 21:57 09/09/20 05:20 POC Whole Blood Glucose 94 MG/DL (74-106) 84 MG/DL (74-106) White Blood Count 8.9 K/UL (4.8-10.8) Red Blood Count 2.84 M/UL (4.20-5.40) Hemoglobin 8.2 G/DL (12.0-16.0) Hematocrit 27.5 % (37.0-47.0) Mean Corpuscular Volume 97 FL (80-99) Mean Corpuscular Hemoglobin 28.9 PG (27.0-31.0) Mean Corpuscular Hemoglobin Concent 29.8 G/DL (32.0-36.0) Red Cell Distribution Width 17.2 % (11.6-14.8) Platelet Count 76 K/UL (150-450) Mean Platelet Volume 8.7 FL (6.5-10.1) Neutrophils (%) (Auto) % (45.0-75.0) Lymphocytes (%) (Auto) % (20.0-45.0) Monocytes (%) (Auto) % (1.0-10.0) Eosinophils (%) (Auto) % (0.0-3.0) Basophils (%) (Auto) % (0.0-2.0) Differential Total Cells Counted 100 Neutrophils % (Manual) 83 % (45-75) Lymphocytes % (Manual) 7 % (20-45) Monocytes % (Manual) 9 % (1-10) Eosinophils % (Manual) 1 % (0-3) Basophils % (Manual) 0 % (0-2) Band Neutrophils 0 % (0-8) Platelet Estimate Decreased Platelet Morphology Normal Hypochromasia 1+ Anisocytosis 1+ Macrocytosis 1+ Sodium Level 136 MMOL/L (136-145) Potassium Level 4.0 MMOL/L (3.5-5.1) Chloride Level 99 MMOL/L (98-107) Carbon Dioxide Level 28 MMOL/L (21-32) Anion Gap 9 mmol/L (5-15) Blood Urea Nitrogen 48 mg/dL (7-18) Creatinine 3.6 MG/DL (0.55-1.30) Estimat Glomerular Filtration Rate 12.5 mL/min (>60) Glucose Level 75 MG/DL (74-106) Calcium Level 8.2 MG/DL (8.5-10.1) Phosphorus Level 4.7 MG/DL (2.5-4.9) Magnesium Level 2.2 MG/DL (1.8-2.4) Total Bilirubin 0.8 MG/DL (0.2-1.0) Aspartate Amino Transf (AST/SGOT) 17 U/L (15-37) Alanine Aminotransferase (ALT/SGPT) < 6 U/L (12-78) Alkaline Phosphatase 123 U/L (46-116) Total Protein 6.3 G/DL (6.4-8.2) Albumin 2.4 G/DL (3.4-5.0) Globulin 3.9 g/dL Albumin/Globulin Ratio 0.6 (1.0-2.7) Test 09/09/20 06:11 09/09/20 12:59 09/09/20 14:58 09/09/20 17:11 Urine Color Hannah Urine Appearance Very cloudy Urine pH 5 (4.5-8.0) Urine Specific [place] 1.030 (1.005-1.035) Urine Protein 3+ (NEGATIVE) Urine Glucose (UA) Negative (NEGATIVE) Urine Ketones 2+ (NEGATIVE) Urine Blood 5+ (NEGATIVE) Urine Nitrite Positive (NEGATIVE) Urine Bilirubin 2+ (NEGATIVE) Urine Ictotest Negative (NEGATIVE) Urine Urobilinogen 1 MG/DL (0.0-1.0) Urine Leukocyte Esterase 3+ (NEGATIVE) Urine RBC Tntc /HPF (0 - 2) Urine WBC 15-20 /HPF (0 - 2) Urine Squamous Epithelial Cells Moderate /LPF (NONE/OCC) Urine Bacteria Many /HPF (NONE) POC Whole Blood Glucose 79 MG/DL (74-106) Test 09/09/20 17:59 09/09/20 20:51 09/10/20 05:42 09/10/20 06:39 POC Whole Blood Glucose 95 MG/DL (74-106) White Blood Count 10.1 K/UL (4.8-10.8) Red Blood Count 2.84 M/UL (4.20-5.40) Hemoglobin 8.3 G/DL (12.0-16.0) Hematocrit 27.6 % (37.0-47.0) Mean Corpuscular Volume 97 FL (80-99) Mean Corpuscular Hemoglobin 29.1 PG (27.0-31.0) Mean Corpuscular Hemoglobin Concent 29.9 G/DL (32.0-36.0) Red Cell Distribution Width 17.6 % (11.6-14.8) Platelet Count 78 K/UL (150-450) Mean Platelet Volume 9.2 FL (6.5-10.1) Neutrophils (%) (Auto) % (45.0-75.0) Lymphocytes (%) (Auto) % (20.0-45.0) Monocytes (%) (Auto) % (1.0-10.0) Eosinophils (%) (Auto) % (0.0-3.0) Basophils (%) (Auto) % (0.0-2.0) Differential Total Cells Counted 100 Neutrophils % (Manual) 80 % (45-75) Lymphocytes % (Manual) 10 % (20-45) Monocytes % (Manual) 7 % (1-10) Eosinophils % (Manual) 2 % (0-3) Basophils % (Manual) 1 % (0-2) Band Neutrophils 0 % (0-8) Platelet Estimate Decreased Platelet Morphology Normal Hypochromasia 1+ Anisocytosis 1+ Microcytosis Occasional Macrocytosis 1+ Sodium Level 137 MMOL/L (136-145) Potassium Level 4.2 MMOL/L (3.5-5.1) Chloride Level 101 MMOL/L (98-107) Carbon Dioxide Level 28 MMOL/L (21-32) Anion Gap 8 mmol/L (5-15) Blood Urea Nitrogen 54 mg/dL (7-18) Creatinine 4.3 MG/DL (0.55-1.30) Estimat Glomerular Filtration Rate 10.2 mL/min (>60) Glucose Level 79 MG/DL (74-106) Uric Acid 4.5 MG/DL (2.6-7.2) Calcium Level 8.0 MG/DL (8.5-10.1) Phosphorus Level 5.2 MG/DL (2.5-4.9) Magnesium Level 2.5 MG/DL (1.8-2.4) Total Bilirubin 0.7 MG/DL (0.2-1.0) Aspartate Amino Transf (AST/SGOT) 20 U/L (15-37) Alanine Aminotransferase (ALT/SGPT) 6 U/L (12-78) Alkaline Phosphatase 124 U/L (46-116) C-Reactive Protein, Quantitative 11.7 mg/dL (0.00-0.90) Pro-B-Type Natriuretic Peptide 84332 pg/mL (0-125) Total Protein 6.4 G/DL (6.4-8.2) Albumin 2.4 G/DL (3.4-5.0) Globulin 4.0 g/dL Albumin/Globulin Ratio 0.6 (1.0-2.7) HIV (1&2) Antibody Rapid Negative (NEGATIVE) Test 09/10/20 11:52 09/10/20 15:43 09/10/20 18:40 09/11/20 06:24 POC Whole Blood Glucose 117 MG/DL (74-106) 124 MG/DL (74-106) 126 MG/DL (74-106) 132 MG/DL (74-106) Micro Microbiology Date/Time Source Procedure Growth Status 09/10/20 15:20 Nasopharynx SARS-CoV-2 RdRp Gene Assay - Final Complete Height (Feet): 5 Height (Inches): 10.00 Weight (Pounds): 218 Objective ++Derick Hwang MD Sep 11, 2020 06:30
--- NOTE | 2020-09-11 07:17 | Infectious Diseases Prog Note ---
Assessment/Plan 70yo F with: COVID pna, ?from visiting family vs hospital acquired vs very early disease on admission, waiting confirmatory testing 08/30 Rapid COVID neg 09/10 Rapid COVID neg 09/10 Rapid COVID PCR positive 09/10 COVID PCR p Severe Sepsis Pneumonia Acute hypoxic resp failure- on 2L NC R pleural effusion, transudate -09/03 SP Thoracentesis: Successful ultrasound-guided thoracentesis, yielding 680 milliliters of clear yellow fluid; cx NTD -fluid prot 1.4, glucose 198 -09/01 Chest US: Positive for right pleural effusion Incidental finding of ascites, also previously reporte -08/30 CXR: There is again patchy ill-defined airspace opacities at the right greater than left base with some consolidated appearance again seen on the right. There is now patchy ill-defined opacity at the right upper lung. A small right pleural effusion is suggested. The patient is rotated to the right. Status post median sternotomy again noted. -08/30 & rapid covid PCR neg x2 -08/30 Bcx NTD R/o UTI 09/09 UA 15-20 WBC, UCx NTD Afebrile Leukocytosis, SP -09/02 Bcx NTD -08/31 u/a no pyuria R arm and R leg cellulitis; improving Recent hx of COVID19- pt clarified initial diagnosis was 2 months ago and not 08/25 as per documentation on EMR. VENANCIO on CKD -Renal US: Ascites. Bilateral pleural effusions. Complex right renal cysts of uncertain etiology. This complex cyst is unchanged from the study of 01/12/2020. Mildly atrophic right kidney.Magnetic resonance imaging of the abdomen with gadolinium administration is advised for further evaluation of complex right renal cyst. HIV screen neg PMH: HTN dCHF pHTN Ascites Chronic LE edema DM2 c/w neuropathy Iron def anemia Plan: Started on dexamethasone 6mg daily #2 given COVID+ Not candidate for remdesivir given ESRD on HD CXR F/u COVID PCR for confirmation 09/09 SP ceftaroline and levofloxacin #9 (abx d #08/02) 08/31 SP Ceftriaxone #2, Azithromcyin #2 -f/u cx -Monitor CBC/CMP, temperatures -aspiration precautions D/w RN Thank you for consulting [facility]. Will continue to follow along with you. Subjective Allergies: Coded Allergies: No Known Allergies (Unverified , 10/10/19) AF NAD on 4L NC Rapid COVID Ag test positive Started on dexamethasone WBc 12.4 on steroids Objective Last 24 Hour Vital Signs Date Time Temp Pulse Resp B/P (MAP) Pulse Ox O2 Delivery O2 Flow Rate FiO2 09/11/20 04:00 62 09/11/20 04:00 97.7 59 20 147/78 (101) 96 09/11/20 00:00 97.0 61 18 100/60 (73) 94 09/11/20 00:00 64 09/10/20 21:00 Nasal Cannula 4.0 Nasal Cannula 4.0 09/10/20 20:00 63 09/10/20 20:00 97.2 60 20 98/54 (69) 95 09/10/20 16:00 97.5 61 20 81/51 (61) 98 09/10/20 16:00 63 09/10/20 12:00 97.7 65 20 93/47 (62) 96 09/10/20 12:00 60 09/10/20 12:00 97.7 65 20 93/48 (63) 96 09/10/20 09:00 Nasal Cannula 2.0 Nasal Cannula 2.0 09/10/20 08:00 97.7 59 20 92/47 (62) 96 09/10/20 08:00 60 09/10/20 07:18 95 Nasal Cannula 3.0 32 09/10/20 07:18 60 18 95 Nasal Cannula 3.0 32 Height (Feet): 5 Height (Inches): 10.00 Weight (Pounds): 218 Gen: NAD in bed HEENT: NCAT, EOMI, PERRL Pulm: BL chest rise on NC Abd: Soft, NTND Ext: No c/c/e Neuro: Awake, interactive, pleasant Microbiology Date/Time Source Procedure Growth Status 09/10/20 15:20 Nasopharynx SARS-CoV-2 RdRp Gene Assay - Final Complete 09/09/20 14:58 Urine,Clean Catch Urine Culture - Preliminary NO GROWTH Resulted Laboratory Tests Test 09/10/20 11:52 09/10/20 15:43 09/10/20 18:40 09/11/20 05:55 POC Whole Blood Glucose 117 MG/DL (74-106) H 124 MG/DL (74-106) H 126 MG/DL (74-106) H White Blood Count Pending Red Blood Count Pending Hemoglobin Pending Hematocrit Pending Mean Corpuscular Volume Pending Mean Corpuscular Hemoglobin Pending Mean Corpuscular Hemoglobin Concent Pending Red Cell Distribution Width Pending Platelet Count Pending Mean Platelet Volume Pending Neutrophils (%) (Auto) Pending Lymphocytes (%) (Auto) Pending Monocytes (%) (Auto) Pending Eosinophils (%) (Auto) Pending Basophils (%) (Auto) Pending Sodium Level Pending Potassium Level Pending Chloride Level Pending Carbon Dioxide Level Pending Blood Urea Nitrogen Pending Creatinine Pending Estimat Glomerular Filtration Rate Pending Glucose Level Pending Calcium Level Pending Phosphorus Level Pending Magnesium Level Pending Total Bilirubin Pending Gamma Glutamyl Transpeptidase Pending Aspartate Amino Transf (AST/SGOT) Pending Alanine Aminotransferase (ALT/SGPT) Pending Alkaline Phosphatase Pending Lactate Dehydrogenase Pending C-Reactive Protein, Quantitative Pending Pro-B-Type Natriuretic Peptide Pending Total Protein Pending Albumin Pending Globulin Pending Test 09/11/20 06:24 POC Whole Blood Glucose 132 MG/DL (74-106) H Current Medications Medications (Trade) Dose Ordered Sig/[place] Route PRN Reason Start Time Stop Time Status Last Admin Dose Admin Acetaminophen (Tylenol) 650 mg Q4H PRN ORAL FEVER 08/30/20 23:45 09/29/20 23:44 Acetaminophen/ Hydrocodone Bitart ([place] 5/325) 1 tab Q6H PRN ORAL Severe Pain (Pain Scale 7-10) 09/09/20 12:15 09/16/20 12:14 09/09/20 13:04 Albuterol/ Ipratropium (Albuterol/ Ipratropium) 3 ml Q4H PRN HHN Shortness of Breath 09/07/20 09:00 09/12/20 08:59 Allopurinol (Zyloprim) 100 mg DAILY ORAL 09/09/20 09:00 10/09/20 08:59 09/10/20 08:50 Calcium Acetate (Phoslo) 667 mg TIAC ORAL 09/08/20 11:30 12/07/20 11:29 09/11/20 06:20 Chlorhexidine Gluconate (Josiane-Hex 2%) 1 applic DAILY@1999 TOPIC 09/06/20 20:00 12/05/20 19:59 09/10/20 21:28 Dexamethasone (Decadron) 6 mg DAILY ORAL 09/10/20 21:00 09/19/20 09:01 09/10/20 21:29 Dextrose (Dextrose 50%) 25 ml Q30M PRN IV Hypoglycemia 08/30/20 23:45 11/28/20 23:44 Dextrose (Dextrose 50%) 50 ml Q30M PRN IV Hypoglycemia 08/30/20 23:45 11/28/20 23:44 Epoetin Shlomo (Epoetin Shlomo(ESRD on dialysis)) 10,000 unit TUE-TUE-TUE SUBQ 09/08/20 21:00 12/07/20 20:59 09/10/20 21:28 Folic Acid (Folate) 3 mg DAILY ORAL 09/02/20 09:00 10/02/20 08:59 09/10/20 08:49 Heparin Sodium (Porcine) (Heparin 5000 units/ml) 5,000 units EVERY 12 HOURS SUBQ 08/31/20 09:00 10/15/20 08:59 09/06/20 00:16 Indomethacin (Indocin) 25 mg THREE TIMES A DAY ORAL 09/04/20 13:00 10/04/20 12:59 09/10/20 18:14 Insulin Aspart (NovoLOG) BEFORE MEALS AND HS SUBQ 08/31/20 06:30 11/29/20 06:29 09/04/20 21:17 Iron Sucrose 100 mg/Sodium Chloride 60 ml @ 240 mls/hr BEDTIME IVPB 09/08/20 21:00 09/12/20 21:14 09/10/20 21:28 Levothyroxine Sodium (Synthroid) 100 mcg DAILY@0630 ORAL 09/02/20 06:30 10/02/20 06:29 09/11/20 06:20 Metoclopramide HCl (Reglan) 5 mg THREE TIMES A DAY ORAL 08/31/20 13:00 09/30/20 12:59 09/10/20 18:14 Ondansetron HCl (Zofran) 4 mg Q6H PRN IVP Nausea & Vomiting 08/30/20 23:45 09/29/20 23:44 Pantoprazole (Protonix) 40 mg EVERY 12 HOURS ORAL 08/31/20 21:00 09/30/20 20:59 09/10/20 21:29 Polyethylene Glycol (Miralax) 17 gm DAILYPRN PRN ORAL Constipation 08/30/20 23:45 09/29/20 23:44 Promethazine HCl/ Codeine (Phenergan with Codeine) 5 ml Q6H PRN ORAL cough 08/30/20 23:45 09/29/20 23:44 Theophylline (Theophylline) 80 mg Q8HR ORAL 09/09/20 14:00 12/08/20 13:59 09/11/20 06:20 Nadia Calvin M.D. Sep 11, 2020 07:17
[2020-09-11 07:35] LABS: HEMATOCRIT 25.8 % (37.0-47.0); HEMOGLOBIN 8.3 G/DL (12.0-16.0); MEAN CORPUSCULAR VOLUME 91 FL (80-99); PLATELET COUNT 73 K/UL (150-450); RED BLOOD COUNT 2.83 M/UL (4.20-5.40); RED CELL DISTRIBUTION WIDTH 17.2 % (11.6-14.8); WHITE BLOOD COUNT 12.4 K/UL (4.8-10.8)
[2020-09-11 08:00] VITALS: BP 114/74
[2020-09-11 08:23] LABS: ALBUMIN 2.4 G/DL (3.4-5.0); ALBUMIN/GLOBULIN RATIO 0.6 (1.0-2.7); BILIRUBIN,TOTAL 0.8 MG/DL (0.2-1.0); CALCIUM 8.1 MG/DL (8.5-10.1); PHOSPHORUS 4.7 MG/DL (2.5-4.9); POTASSIUM 4.1 MMOL/L (3.5-5.1)
[2020-09-11] MEDS: Heparin 5000 units/ml inj SUBQ SCH ×2 (08:41→20:58)
[2020-09-11] MEDS: Indomethacin 25mg cap ORAL SCH ×3 (08:43→17:48)
[2020-09-11] MEDS: Allopurinol 100mg Tab ORAL SCH (08:44)
--- NOTE | 2020-09-11 10:32 | Nephrology Progress Note ---
Assessment/Plan Problem List: (1) Renal failure (ARF), acute on chronic (2) Hyperkalemia (3) Hypothyroidism (4) Acute on chronic diastolic (congestive) heart failure (5) Diabetic nephropathy (6) Pneumonia Assessment: Leukocytosis, abnormal chest x-ray (7) Anemia Assessment 1) Renal failure (ARF), acute on chronic (2) Diabetes mellitus (3) Hypoglycemia (4) Hyperkalemia (5) Diabetic nephropathy (6) H/o Pleural effusion (7) Morbid obesity (8) Low Iron Anemia (9) HypoThyroidism Plan September 11: Patient dialyzed yesterday. Labs reviewed. Patient is now COVID- 19 test positive. On isolation. Will dialyze again tomorrow. Continue per consultants. September 10: Patient due for dialysis and ultrafiltration today. Labs reviewed. And medication list reviewed. September 09: Patient was dialyzed yesterday. Due for dialysis and ultrafiltration tomorrow. Will start theophylline for although lumbar diet and also improvement of the heart rate. Recheck TSH in a.m. Continue as is. DC Chan catheter. September 08: Patient due for dialysis and ultrafiltration today. Labs reviewed. PhosLo given. Continue as is. September 07: Patient was dialyzed 2 days in a row. Ultra filtrated 3 L a day. Patient continues to be edematous however much less. Will dialyze again tomorrow with ultrafiltration. Will monitor renal parameters. September 06: Patient was dialyzed yesterday. Ultrafiltration was done. Patient remains edematous. Will do another dialysis and aim 3 L fluid removal as tolerates. Discontinue IV Lasix and oral hydralazine. Will adjust blood pressure medication as needed. Discussed with RN, antibiotics intravenously if possible should be changed to oral since there is no IV line available. 1 dose of Venofer 200 mg ordered to be given during dialysis. Subcutaneous Epogen ordered for anemia. September 05: New 24-hour urine suggestive of creatinine clearance of 3. Patient due for insertion of dialysis catheter. Hemodialysis and ultrafiltration after insertion of catheter. September 04: New 24-hour urine test is in process. Discussed with RN. Patient was short of breath overnight. ABG ordered. 1 dose of Zaroxolyn ordered. Patient has fluid overload, and need ultrafiltration. Blood cultures negative. Leukocytosis resolved. Will order placement of permacath and dialysis and ultrafiltration. September 03: The 24-hour urine results appears to be an error in view of total volume compared to intake and output records. Today's labs reviewed. Serum creatinine higher. Talk to the nursing charge of the floor and will order another 24-hour urine collection. Meanwhile continue per ID treatment for UTI and leukocytosis. Dexamethasone on the medication list was questioned. Patient may require dialysis if continues to have worsening renal parameters. September 02: Consent for dialysis catheter is taken. Catheter placement deferred due to leukocytosis. Surveillance blood culture ordered. Urine culture ordered. Blood pressure medication adjusted. 24-hour urine for creatinine clearance and total protein pending. Previously: Chan Cath 24 H CrCl and total protein ordered Off IV fluids, on IV Lasix Adjust BP meds Previous 2D echocardiogram ejection fraction is reported to 50% Previous Kidney ultrasound noted. Current kidney ultrasound results below Anemia work-up As needed Kayexalate for high potassium Keep blood pressure and blood sugar in check Monitor renal parameters Requires HD treatment [facility] KIDNEY IMPRESSION: 1. Ascites. 2. Bilateral pleural effusions. 3. Complex right renal cysts of uncertain etiology. This complex cyst is unchanged from the study of 01/12/2020. 4. Mildly atrophic right kidney. 5. Magnetic resonance imaging of the abdomen with gadolinium administration is advised for further evaluation of complex right renal cyst. Subjective ROS Limited/Unobtainable: No Constitutional: Reports: malaise Objective Objective Last 24 Hour Vital Signs Date Time Temp Pulse Resp B/P (MAP) Pulse Ox O2 Delivery O2 Flow Rate FiO2 09/11/20 08:00 97.1 72 20 114/74 (87) 94 09/11/20 04:00 62 09/11/20 04:00 97.7 59 20 147/78 (101) 96 09/11/20 00:00 97.0 61 18 100/60 (73) 94 09/11/20 00:00 64 09/10/20 21:00 Nasal Cannula 4.0 Nasal Cannula 4.0 09/10/20 20:00 63 09/10/20 20:00 97.2 60 20 98/54 (69) 95 09/10/20 16:00 97.5 61 20 81/51 (61) 98 09/10/20 16:00 63 09/10/20 12:00 97.7 65 20 93/47 (62) 96 09/10/20 12:00 60 11/18/20 12:00 97.7 65 20 93/48 (63) 96 Intake and Output 09/10/20 09/11/20 19:00 07:00 Intake Total 236 ml 480 ml Balance 236 ml 480 ml Intake Oral 236 ml 240 ml IV Total 240 ml # Voids 1 # Bowel Movements 1 Current Medications Medications (Trade) Dose Ordered Sig/[place] Route PRN Reason Start Time Stop Time Status Last Admin Dose Admin Acetaminophen (Tylenol) 650 mg Q4H PRN ORAL FEVER 08/30/20 23:45 09/29/20 23:44 Acetaminophen/ Hydrocodone Bitart ([place] 5/325) 1 tab Q6H PRN ORAL Severe Pain (Pain Scale 7-10) 09/09/20 12:15 09/16/20 12:14 09/09/20 13:04 Albuterol/ Ipratropium (Albuterol/ Ipratropium) 3 ml Q4H PRN HHN Shortness of Breath 09/07/20 09:00 09/12/20 08:59 Allopurinol (Zyloprim) 100 mg DAILY ORAL 09/09/20 09:00 10/09/20 08:59 09/11/20 08:44 Calcium Acetate (Phoslo) 667 mg TIAC ORAL 09/08/20 11:30 12/07/20 11:29 09/11/20 06:20 Chlorhexidine Gluconate (Josiane-Hex 2%) 1 applic DAILY@1999 TOPIC 09/06/20 20:00 12/05/20 19:59 09/10/20 21:28 Dexamethasone (Decadron) 6 mg DAILY ORAL 09/10/20 21:00 09/19/20 09:01 09/11/20 08:43 Dextrose (Dextrose 50%) 25 ml Q30M PRN IV Hypoglycemia 08/30/20 23:45 11/28/20 23:44 Dextrose (Dextrose 50%) 50 ml Q30M PRN IV Hypoglycemia 08/30/20 23:45 11/28/20 23:44 Epoetin Shlomo (Epoetin Shlomo(ESRD on dialysis)) 10,000 unit MON-WED-TUE SUBQ 09/08/20 21:00 12/07/20 20:59 09/10/20 21:28 Folic Acid (Folate) 3 mg DAILY ORAL 09/02/20 09:00 10/02/20 08:59 09/11/20 08:44 Heparin Sodium (Porcine) (Heparin 5000 units/ml) 5,000 units EVERY 12 HOURS SUBQ 08/31/20 09:00 10/15/20 08:59 09/06/20 00:16 Indomethacin (Indocin) 25 mg THREE TIMES A DAY ORAL 09/04/20 13:00 10/04/20 12:59 09/11/20 08:43 Insulin Aspart (NovoLOG) BEFORE MEALS AND HS SUBQ 08/31/20 06:30 11/29/20 06:29 09/04/20 21:17 Iron Sucrose 100 mg/Sodium Chloride 60 ml @ 240 mls/hr BEDTIME IVPB 09/08/20 21:00 09/12/20 21:14 09/10/20 21:28 Levothyroxine Sodium (Synthroid) 100 mcg DAILY@0630 ORAL 09/02/20 06:30 10/02/20 06:29 09/11/20 06:20 Metoclopramide HCl (Reglan) 5 mg THREE TIMES A DAY ORAL 08/31/20 13:00 09/30/20 12:59 09/11/20 08:43 Ondansetron HCl (Zofran) 4 mg Q6H PRN IVP Nausea & Vomiting 08/30/20 23:45 09/29/20 23:44 Pantoprazole (Protonix) 40 mg EVERY 12 HOURS ORAL 08/31/20 21:00 09/30/20 20:59 09/11/20 08:44 Polyethylene Glycol (Miralax) 17 gm DAILYPRN PRN ORAL Constipation 08/30/20 23:45 09/29/20 23:44 Promethazine HCl/ Codeine (Phenergan with Codeine) 5 ml Q6H PRN ORAL cough 08/30/20 23:45 09/29/20 23:44 Theophylline (Theophylline) 80 mg Q8HR ORAL 09/09/20 14:00 12/08/20 13:59 09/11/20 06:20 Laboratory Tests 09/10/20 11:52: POC Whole Blood Glucose 117H 09/10/20 15:43: POC Whole Blood Glucose 124H 09/10/20 18:40: POC Whole Blood Glucose 126H 09/11/20 05:55: White Blood Count 12.4H, Red Blood Count 2.83L, Hemoglobin 8.3L, Hematocrit 25.8L, Mean Corpuscular Volume 91, Mean Corpuscular Hemoglobin 29.4, Mean Corpuscular Hemoglobin Concent 32.2, Red Cell Distribution Width 17.2H, Platelet Count 73L, Mean Platelet Volume 10.5H, Neutrophils (%) (Auto) , Lymphocytes (%) (Auto) , Monocytes (%) (Auto) , Eosinophils (%) (Auto) , Basophils (%) (Auto) , Neutrophils % (Manual) [Pending], Lymphocytes % (Manual) [Pending], Platelet Estimate [Pending], Platelet Morphology [Pending], Sodium Level 137, Potassium Level 4.1, Chloride Level 101, Carbon Dioxide Level 26, Anion Gap 10, Blood Urea Nitrogen 47H, Creatinine 4.0H, Estimat Glomerular Filtration Rate 11.1, Glucose Level 130H, Calcium Level 8.1L, Phosphorus Level 4.7, Magnesium Level 2.4, Total Bilirubin 0.8, Gamma Glutamyl Transpeptidase 63, Aspartate Amino Transf (AST/SGOT) 19, Alanine Aminotransferase (ALT/SGPT) 9L, Alkaline Phosphatase 130H , Lactate Dehydrogenase 179, C-Reactive Protein, Quantitative 11.8H, Pro-B-Type Natriuretic Peptide 22016R, Total Protein 6.5, Albumin 2.4L, Globulin 4.1, Albumin/Globulin Ratio 0.6L 09/11/20 06:24: POC Whole Blood Glucose 132H Height (Feet): 5 Height (Inches): 10.00 Weight (Pounds): 218 General Appearance: no apparent distress Cardiovascular: normal rate Respiratory/Chest: decreased breath sounds Abdomen: soft Jay Severino MD Sep 11, 2020 10:32
--- NOTE | 2020-09-11 11:17 | Pulmonology Progress Note ---
Subjective ROS Limited/Unobtainable: No Interval Events: no new events Constitutional: Reports: no symptoms HEENT: Repors: no symptoms Respiratory: Reports: no symptoms Allergies: Coded Allergies: No Known Allergies (Unverified , 10/10/19) All Systems: reviewed and negative except above Objective Last 24 Hour Vital Signs Date Time Temp Pulse Resp B/P (MAP) Pulse Ox O2 Delivery O2 Flow Rate FiO2 09/11/20 09:00 Nasal Cannula 4.0 Nasal Cannula 4.0 09/11/20 08:00 97.1 72 20 114/74 (87) 94 09/11/20 04:00 62 09/11/20 04:00 97.7 59 20 147/78 (101) 96 09/11/20 00:00 97.0 61 18 100/60 (73) 94 09/11/20 00:00 64 09/10/20 21:00 Nasal Cannula 4.0 Nasal Cannula 4.0 09/10/20 20:00 63 09/10/20 20:00 97.2 60 20 98/54 (69) 95 09/10/20 16:00 97.5 61 20 81/51 (61) 98 09/10/20 16:00 63 09/10/20 12:00 97.7 65 20 93/47 (62) 96 09/10/20 12:00 60 09/10/20 12:00 97.7 65 20 93/48 (63) 96 Intake and Output 09/10/20 09/11/20 19:00 07:00 Intake Total 236 ml 480 ml Balance 236 ml 480 ml Intake Oral 236 ml 240 ml IV Total 240 ml # Voids 1 # Bowel Movements 1 General Appearance: WD/WN HEENT: normocephalic, atraumatic Respiratory: chest wall non-tender, lungs clear Breasts: no masses Cardiovascular: normal peripheral pulses Abdomen: normal bowel sounds, soft, non tender Genitourinary: normal external genitalia Extremities: no cyanosis, no clubbing, other - right knee swelling and warmth 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 normal Lymphatic: no neck adenopathy Microbiology Date/Time Source Procedure Growth Status 09/10/20 15:20 Nasopharynx SARS-CoV-2 RdRp Gene Assay - Final Complete 09/09/20 14:58 Urine,Clean Catch Urine Culture - Preliminary NO GROWTH Resulted Laboratory Tests 09/10/20 11:52: POC Whole Blood Glucose 117H 09/10/20 15:43: POC Whole Blood Glucose 124H 09/10/20 18:40: POC Whole Blood Glucose 126H 09/11/20 05:55: White Blood Count 12.4H, Red Blood Count 2.83L, Hemoglobin 8.3L, Hematocrit 25.8L, Mean Corpuscular Volume 91, Mean Corpuscular Hemoglobin 29.4, Mean Corpuscular Hemoglobin Concent 32.2, Red Cell Distribution Width 17.2H, Platelet Count 73L, Mean Platelet Volume 10.5H, Neutrophils (%) (Auto) , Lymphocytes (%) (Auto) , Monocytes (%) (Auto) , Eosinophils (%) (Auto) , Basophils (%) (Auto) , Differential Total Cells Counted 100, Neutrophils % (Manual) 94H, Lymphocytes % (Manual) 4L, Monocytes % (Manual) 2, Eosinophils % (Manual) 0, Basophils % (Manual) 0, Band Neutrophils 0, Platelet Estimate DecreasedL, Platelet Morphology Normal, Hypochromasia 1+, Anisocytosis 1+, Macrocytosis 1+, Sodium Level 137, Potassium Level 4.1, Chloride Level 101, Carbon Dioxide Level 26, Anion Gap 10, Blood Urea Nitrogen 47H, Creatinine 4.0H, Estimat Glomerular Filtration Rate 11.1, Glucose Level 130H, Calcium Level 8.1L, Phosphorus Level 4.7, Magnesium Level 2.4, Total Bilirubin 0.8, Gamma Glutamyl Transpeptidase 63, Aspartate Amino Transf (AST/SGOT) 19, Alanine Aminotransferase (ALT/SGPT) 9L, Alkaline Phosphatase 130H, Lactate Dehydrogenase 179, C-Reactive Protein, Quantitative 11.8H, Pro-B-Type Natriuretic Peptide 88892F, Total Protein 6.5, A lbumin 2.4L, Globulin 4.1, Albumin/Globulin Ratio 0.6L 09/11/20 06:24: POC Whole Blood Glucose 132H Current Medications Medications (Trade) Dose Ordered Sig/Braeden Route PRN Reason Start Time Stop Time Status Last Admin Dose Admin Acetaminophen (Tylenol) 650 mg Q4H PRN ORAL FEVER 08/30/20 23:45 09/29/20 23:44 Acetaminophen/ Hydrocodone Bitart ([place] 5/325) 1 tab Q6H PRN ORAL Severe Pain (Pain Scale 7-10) 09/09/20 12:15 09/16/20 12:14 09/09/20 13:04 Albuterol/ Ipratropium (Albuterol/ Ipratropium) 3 ml Q4H PRN HHN Shortness of Breath 09/07/20 09:00 09/12/20 08:59 Allopurinol (Zyloprim) 100 mg DAILY ORAL 09/09/20 09:00 10/09/20 08:59 09/11/20 08:44 Calcium Acetate (Phoslo) 667 mg TIAC ORAL 09/08/20 11:30 12/07/20 11:29 09/11/20 06:20 Chlorhexidine Gluconate (Josiane-Hex 2%) 1 applic DAILY@1999 TOPIC 09/06/20 20:00 12/05/20 19:59 09/10/20 21:28 Dexamethasone (Decadron) 6 mg DAILY ORAL 09/10/20 21:00 09/19/20 09:01 09/11/20 08:43 Dextrose (Dextrose 50%) 25 ml Q30M PRN IV Hypoglycemia 08/30/20 23:45 11/28/20 23:44 Dextrose (Dextrose 50%) 50 ml Q30M PRN IV Hypoglycemia 08/30/20 23:45 11/28/20 23:44 Epoetin Shlomo (Epoetin Shlomo(ESRD on dialysis)) 10,000 unit TUE-TUE-TUE SUBQ 09/08/20 21:00 12/07/20 20:59 09/10/20 21:28 Folic Acid (Folate) 3 mg DAILY ORAL 09/02/20 09:00 10/02/20 08:59 09/11/20 08:44 Heparin Sodium (Porcine) (Heparin 5000 units/ml) 5,000 units EVERY 12 HOURS SUBQ 08/31/20 09:00 10/15/20 08:59 09/06/20 00:16 Indomethacin (Indocin) 25 mg THREE TIMES A DAY ORAL 09/04/20 13:00 10/04/20 12:59 09/11/20 08:43 Insulin Aspart (NovoLOG) BEFORE MEALS AND HS SUBQ 08/31/20 06:30 11/29/20 06:29 09/04/20 21:17 Iron Sucrose 100 mg/Sodium Chloride 60 ml @ 240 mls/hr BEDTIME IVPB 09/08/20 21:00 09/12/20 21:14 09/10/20 21:28 Levothyroxine Sodium (Synthroid) 100 mcg DAILY@0630 ORAL 09/02/20 06:30 10/02/20 06:29 09/11/20 06:20 Metoclopramide HCl (Reglan) 5 mg THREE TIMES A DAY ORAL 08/31/20 13:00 09/30/20 12:59 09/11/20 08:43 Ondansetron HCl (Zofran) 4 mg Q6H PRN IVP Nausea & Vomiting 08/30/20 23:45 09/29/20 23:44 Pantoprazole (Protonix) 40 mg EVERY 12 HOURS ORAL 08/31/20 21:00 09/30/20 20:59 09/11/20 08:44 Polyethylene Glycol (Miralax) 17 gm DAILYPRN PRN ORAL Constipation 08/30/20 23:45 09/29/20 23:44 Promethazine HCl/ Codeine (Phenergan with Codeine) 5 ml Q6H PRN ORAL cough 08/30/20 23:45 09/29/20 23:44 Theophylline (Theophylline) 80 mg Q8HR ORAL 09/09/20 14:00 12/08/20 13:59 09/11/20 06:20 Assessment/Plan Problems: (1) Acute on chronic diastolic (congestive) heart failure (2) 2019 novel coronavirus disease (COVID-19) (3) Gout (4) Renal failure (ARF), acute on chronic (5) Diabetes mellitus (6) Left bundle branch block (LBBB) (7) Cardiac left ventricular ejection fraction greater than 40 percent (8) Grade I diastolic dysfunction (9) History of hypertension Assessment/Plan COVID positive probably nosocomial f/u ID recommendations f/u inflammatory markers. O2 titrate to keep sat > 92%, currently down to O2 via NC thoracentesis done, 600 cc removed from right side. DVT prophylaxis Tiana Cool MD Sep 11, 2020 11:17
[2020-09-11 12:00] VITALS: BP 103/65
--- NOTE | 2020-09-11 12:37 | Surgery Progress Note ---
Surgery Progress Note Subjective Additional Comments covid ++ no n/v labs noted exam stable Objective Last 24 Hour Vital Signs Date Time Temp Pulse Resp B/P (MAP) Pulse Ox O2 Delivery O2 Flow Rate FiO2 09/11/20 09:00 Nasal Cannula 4.0 Nasal Cannula 4.0 09/11/20 08:00 66 09/11/20 08:00 97.1 72 20 114/74 (87) 94 09/11/20 04:00 62 09/11/20 04:00 97.7 59 20 147/78 (101) 96 09/11/20 00:00 97.0 61 18 100/60 (73) 94 09/11/20 00:00 64 09/10/20 21:00 Nasal Cannula 4.0 Nasal Cannula 4.0 09/10/20 20:00 63 09/10/20 20:00 97.2 60 20 98/54 (69) 95 09/10/20 16:00 97.5 61 20 81/51 (61) 98 09/10/20 16:00 63 I&O Intake and Output 09/10/20 09/11/20 19:00 07:00 Intake Total 236 ml 480 ml Balance 236 ml 480 ml Intake Oral 236 ml 240 ml IV Total 240 ml # Voids 1 # Bowel Movements 1 Cardiovascular: RSR Respiratory: clear, decreased breath sounds Abdomen: soft, non-tender, present bowel sounds Extremities: no edema, no tenderness, no cyanosis Laboratory Tests Test 09/10/20 15:43 09/10/20 18:40 09/11/20 05:55 09/11/20 06:24 POC Whole Blood Glucose 124 MG/DL (74-106) H 126 MG/DL (74-106) H 132 MG/DL (74-106) H White Blood Count 12.4 K/UL (4.8-10.8) H Red Blood Count 2.83 M/UL (4.20-5.40) L Hemoglobin 8.3 G/DL (12.0-16.0) L Hematocrit 25.8 % (37.0-47.0) L Mean Corpuscular Volume 91 FL (80-99) Mean Corpuscular Hemoglobin 29.4 PG (27.0-31.0) Mean Corpuscular Hemoglobin Concent 32.2 G/DL (32.0-36.0) Red Cell Distribution Width 17.2 % (11.6-14.8) H Platelet Count 73 K/UL (150-450) L Mean Platelet Volume 10.5 FL (6.5-10.1) H Neutrophils (%) (Auto) % (45.0-75.0) Lymphocytes (%) (Auto) % (20.0-45.0) Monocytes (%) (Auto) % (1.0-10.0) Eosinophils (%) (Auto) % (0.0-3.0) Basophils (%) (Auto) % (0.0-2.0) Differential Total Cells Counted 100 Neutrophils % (Manual) 94 % (45-75) H Lymphocytes % (Manual) 4 % (20-45) L Monocytes % (Manual) 2 % (1-10) Eosinophils % (Manual) 0 % (0-3) Basophils % (Manual) 0 % (0-2) Band Neutrophils 0 % (0-8) Platelet Estimate Decreased L Platelet Morphology Normal Hypochromasia 1+ Anisocytosis 1+ Macrocytosis 1+ Sodium Level 137 MMOL/L (136-145) Potassium Level 4.1 MMOL/L (3.5-5.1) Chloride Level 101 MMOL/L (98-107) Carbon Dioxide Level 26 MMOL/L (21-32) Anion Gap 10 mmol/L (5-15) Blood Urea Nitrogen 47 mg/dL (7-18) H Creatinine 4.0 MG/DL (0.55-1.30) H Estimat Glomerular Filtration Rate 11.1 mL/min (>60) Glucose Level 130 MG/DL (74-106) H Calcium Level 8.1 MG/DL (8.5-10.1) L Phosphorus Level 4.7 MG/DL (2.5-4.9) Magnesium Level 2.4 MG/DL (1.8-2.4) Total Bilirubin 0.8 MG/DL (0.2-1.0) Gamma Glutamyl Transpeptidase 63 U/L (5-85) Aspartate Amino Transf (AST/SGOT) 19 U/L (15-37) Alanine Aminotransferase (ALT/SGPT) 9 U/L (12-78) L Alkaline Phosphatase 130 U/L (46-116) H Lactate Dehydrogenase 179 U/L (81-234) C-Reactive Protein, Quantitative 11.8 mg/dL (0.00-0.90) H Pro-B-Type Natriuretic Peptide 76386 pg/mL (0-125) H Total Protein 6.5 G/DL (6.4-8.2) Albumin 2.4 G/DL (3.4-5.0) L Globulin 4.1 g/dL Albumin/Globulin Ratio 0.6 (1.0-2.7) L Test 09/11/20 11:37 POC Whole Blood Glucose 161 MG/DL (74-106) H Plan Problems: (1) Acute on chronic diastolic (congestive) heart failure (2) Anemia (3) Acute respiratory failure Assessment & Plan: Large right pleural effusion persists, unchanged. Bilateral interstitial and airspace edema, cardiomegaly persists, probably unchanged allowing for differences in technique and inspiration (4) ACS (acute coronary syndrome) (5) History of hypertension (6) Moderate pulmonary arterial systolic hypertension (7) Left bundle branch block (LBBB) (8) Diabetes mellitus (9) Diabetic nephropathy (10) Renal failure (ARF), acute on chronic (11) Hyperkalemia (12) Bacteremia (13) CAD (coronary artery disease) (14) Hypothyroidism (15) Cardiac left ventricular ejection fraction greater than 40 percent (16) Grade I diastolic dysfunction (17) UTI (urinary tract infection) (18) Ulcers of both lower legs (19) Open wounds involving multiple regions of lower extremity Assessment & Plan: Patient identified admission having bilateral lower extremity edema open wounds as well as necrotic ulcerations. Patient states she has had this for some time now and acutely worsening as well. Bilateral lower leg wounds do to blisters from edema. Right medial lower leg wound 2.1x4.2x0.2 dark brown scab . Right anterior lower leg wound 5.6x5.3x0.2 pink wound bed. Right distal anterior lower leg 4.0x6.0x0.2 pink wound bed . Large amount serous drainage right leg wounds , Xeroform ,gauze,abd pad and kerlix applied change every shift. Left lower leg wound 3.7x5.0x0.3 100% green slough large amount serous drainage noted with small blisters ifeoma wound, Thera Honey, gauze,abd pad and kerlix applied, change every shift. Local wound care plan initiate Nutritional optimization Turn every 2 hours Elevate extremities Thank you will follow recommendations Right deep veins: Unremarkable. No DVT in the right common femoral, femoral, proximal deep femoral or popliteal veins. The veins demonstrate normal color flow, are normally compressible, with normal phasic flow and/or augmentation response. Right superficial veins: Unremarkable. No thrombus in the visualized right great saphenous vein. Left deep veins: Unremarkable. No DVT in the left common femoral, femoral, proximal deep femoral or popliteal veins. The veins demonstrate normal color flow, are normally compressible, with normal phasic flow and/or augmentation response. Left superficial veins: Unremarkable. No thrombus in the visualized left great saphenous vein. Soft tissues: No acute findings. No popliteal cyst. IMPRESSION: Normal bilateral lower extremity duplex venous ultrasound. DAILY ESTIMATED NEEDS: Needs based on ARF, now HD 65.7kg abw 25-30 kcals/kg [id number] total kcals 1.25-1.8 g protein/kg 82-118 g total protein Fluid per MD, HD pending NUTRITION DIAGNOSIS: Increased pro needs r/t renal dysfunction as evidenced by pt w/ ARF, w/ now pending HD, K on adm (5.8), elev BUN (81), elev Creat (3.8), elev phos and mg. CURRENT DIET:Renal/ CCHO MED PO DIET RECOMMENDATIONS: Renal / CCHO LOW diet + high pro snacks in b/w meals ADDITIONAL RECOMMENDATIONS: 1) Maintain calibrated bed scale wts 2) High pro snacks in b/w meals 3) Rec WC eval-> add nephrovite 1 tab daily Vit C per nephro (20) Pneumonia (21) Gout (22) 2019 novel coronavirus disease (COVID-19) Assessment & Plan: +++ during hospitalization on tx isolation Omar Tellez Sep 11, 2020 12:37
--- NOTE | 2020-09-11 12:52 | General Progress Note ---
Subjective Constitutional: Reports: weakness Allergies: Coded Allergies: No Known Allergies (Unverified , 10/10/19) All Systems: reviewed and negative except above Subjective o2nc calm Objective Last 24 Hour Vital Signs Date Time Temp Pulse Resp B/P (MAP) Pulse Ox O2 Delivery O2 Flow Rate FiO2 09/11/20 12:00 97.8 65 20 103/65 (78) 94 09/11/20 09:00 Nasal Cannula 4.0 Nasal Cannula 4.0 09/11/20 08:00 66 09/11/20 08:00 97.1 72 20 114/74 (87) 94 09/11/20 04:00 62 09/11/20 04:00 97.7 59 20 147/78 (101) 96 09/11/20 00:00 97.0 61 18 100/60 (73) 94 09/11/20 00:00 64 09/10/20 21:00 Nasal Cannula 4.0 Nasal Cannula 4.0 09/10/20 20:00 63 09/10/20 20:00 97.2 60 20 98/54 (69) 95 09/10/20 16:00 97.5 61 20 81/51 (61) 98 09/10/20 16:00 63 Intake and Output 09/10/20 09/11/20 19:00 07:00 Intake Total 236 ml 480 ml Balance 236 ml 480 ml Intake Oral 236 ml 240 ml IV Total 240 ml # Voids 1 # Bowel Movements 1 Laboratory Tests 09/10/20 15:43: POC Whole Blood Glucose 124H 09/10/20 18:40: POC Whole Blood Glucose 126H 09/11/20 05:55: White Blood Count 12.4H, Red Blood Count 2.83L, Hemoglobin 8.3L, Hematocrit 25.8L, Mean Corpuscular Volume 91, Mean Corpuscular Hemoglobin 29.4, Mean Corpuscular Hemoglobin Concent 32.2, Red Cell Distribution Width 17.2H, Platelet Count 73L, Mean Platelet Volume 10.5H, Neutrophils (%) (Auto) , Lymphocytes (%) (Auto) , Monocytes (%) (Auto) , Eosinophils (%) (Auto) , Basophils (%) (Auto) , Differential Total Cells Counted 100, Neutrophils % (Manual) 94H, Lymphocytes % (Manual) 4L, Monocytes % (Manual) 2, Eosinophils % (Manual) 0, Basophils % (Manual) 0, Band Neutrophils 0, Platelet Estimate DecreasedL, Platelet Morphology Normal, Hypochromasia 1+, Anisocytosis 1+, Macrocytosis 1+, Sodium Level 137, Potassium Level 4.1, Chloride Level 101, Carbon Dioxide Level 26, Anion Gap 10, Blood Urea Nitrogen 47H, Creatinine 4.0H, Estimat Glomerular Filtration Rate 11.1, Glucose Level 130H, Calcium Level 8.1L, Phosphorus Level 4.7, Magnesium Level 2.4, Total Bilirubin 0.8, Gamma Glutamyl Transpeptidase 63, Aspartate Amino Transf (AST/SGOT) 19, Alanine Aminotransferase (ALT/SGPT) 9L, Alkaline Phosphatase 130H, Lactate Dehydrogenase 179, C-Reactive Protein, Quantitative 11.8H, Pro-B-Type Natriuretic Peptide 52640E, Total Protein 6.5, Albumin 2.4L, Globulin 4.1, Albumin/Globulin Ratio 0.6L 09/11/20 06:24: POC Whole Blood Glucose 132H 09/11/20 11:37: POC Whole Blood Glucose 161H Height (Feet): 5 Height (Inches): 10.00 Weight (Pounds): 218 General Appearance: lethargic EENT: normal ENT inspection Neck: normal alignment Cardiovascular: normal peripheral pulses, normal rate, regular rhythm Respiratory/Chest: chest wall non-tender, lungs clear, normal breath sounds Abdomen: normal bowel sounds, non tender, soft Extremities: normal inspection Edema: 1+ Arm (L), 1+ Arm (R), 1+ Leg (L), 1+ Leg (R), 1+ Pedal (L), 1+ Pedal (R), 1+ Generalized Edema: trace edema Neurologic: motor weakness Skin: normal pigmentation, warm/dry Assessment/Plan Problem List: (1) UTI (urinary tract infection) ICD Codes: N39.0 - Urinary tract infection, site not specified SNOMED: 08184699 (2) Acute respiratory failure ICD Codes: J96.00 - Acute respiratory failure, unspecified whether with hypoxia or hypercapnia SNOMED: 30893077 (3) History of hypertension ICD Codes: Z86.79 - Personal history of other diseases of the circulatory system SNOMED: 010176880 (4) Diabetes mellitus ICD Codes: E11.9 - Type 2 diabetes mellitus without complications SNOMED: 97837529 (5) Renal failure (ARF), acute on chronic ICD Codes: N17.9 - Acute kidney failure, unspecified; N18.9 - Chronic kidney disease, unspecified SNOMED: 537604249 (6) COVID-19 ICD Codes: U07.1 - COVID-19 SNOMED: 426464508 Status: unchanged Assessment/Plan: o2 pulm tx abx pt diet cbc bmp am aru Dyllan Gonzalez DO Sep 11, 2020 12:52
[2020-09-11 16:00] VITALS: BP 110/70
--- NOTE | 2020-09-11 16:25 | Cardiac Electrophysiology PN ---
Assessment/Plan Assessment/Plan 1. Volume overload due to renal failure as creatinine is 3.5. Echo showed ejection fraction of 50%. Off Amlodipine. On HD after PermCath placement 09/05. 2. Left bundle-branch block. 3. Diastolic dysfunction. EF 50%. 4. Hyperkalemia. Got Kayexalate by Dr. Severino. 5. Diabetic nephropathy. 6. Renal failure. BUN/Cr 81/3.8 S/P PermCath and dialysis 7. Hypothyroidism. 8. Iron-deficiency anemia. 9. Right pleural effusion. S/P 800cc Right thoracentesis 09/03/20 DW RN Subjective Subjective S/P Right chest PermCath and HD on 09/05, 09/06 and 09/08. No CP in SR in NAD. still in isolation Objective Last 24 Hour Vital Signs Date Time Temp Pulse Resp B/P (MAP) Pulse Ox O2 Delivery O2 Flow Rate FiO2 09/11/20 12:00 65 09/11/20 12:00 97.8 65 20 103/65 (78) 94 09/11/20 09:00 Nasal Cannula 4.0 Nasal Cannula 4.0 09/11/20 08:00 66 09/11/20 08:00 97.1 72 20 114/74 (87) 94 09/11/20 04:00 62 09/11/20 04:00 97.7 59 20 147/78 (101) 96 09/11/20 00:00 97.0 61 18 100/60 (73) 94 09/11/20 00:00 64 09/10/20 21:00 Nasal Cannula 4.0 Nasal Cannula 4.0 09/10/20 20:00 63 09/10/20 20:00 97.2 60 20 98/54 (69) 95 Intake and Output 09/10/20 09/11/20 18:59 06:59 Intake Total 236 ml 480 ml Balance 236 ml 480 ml Intake Oral 236 ml 240 ml IV Total 240 ml # Voids 1 # Bowel Movements 1 Laboratory Tests Test 09/10/20 18:40 09/11/20 05:55 09/11/20 06:24 09/11/20 11:37 POC Whole Blood Glucose 126 MG/DL (74-106) H 132 MG/DL (74-106) H 161 MG/DL (74-106) H White Blood Count 12.4 K/UL (4.8-10.8) H Red Blood Count 2.83 M/UL (4.20-5.40) L Hemoglobin 8.3 G/DL (12.0-16.0) L Hematocrit 25.8 % (37.0-47.0) L Mean Corpuscular Volume 91 FL (80-99) Mean Corpuscular Hemoglobin 29.4 PG (27.0-31.0) Mean Corpuscular Hemoglobin Concent 32.2 G/DL (32.0-36.0) Red Cell Distribution Width 17.2 % (11.6-14.8) H Platelet Count 73 K/UL (150-450) L Mean Platelet Volume 10.5 FL (6.5-10.1) H Neutrophils (%) (Auto) % (45.0-75.0) Lymphocytes (%) (Auto) % (20.0-45.0) Monocytes (%) (Auto) % (1.0-10.0) Eosinophils (%) (Auto) % (0.0-3.0) Basophils (%) (Auto) % (0.0-2.0) Differential Total Cells Counted 100 Neutrophils % (Manual) 94 % (45-75) H Lymphocytes % (Manual) 4 % (20-45) L Monocytes % (Manual) 2 % (1-10) Eosinophils % (Manual) 0 % (0-3) Basophils % (Manual) 0 % (0-2) Band Neutrophils 0 % (0-8) Platelet Estimate Decreased L Platelet Morphology Normal Hypochromasia 1+ Anisocytosis 1+ Macrocytosis 1+ Sodium Level 137 MMOL/L (136-145) Potassium Level 4.1 MMOL/L (3.5-5.1) Chloride Level 101 MMOL/L (98-107) Carbon Dioxide Level 26 MMOL/L (21-32) Anion Gap 10 mmol/L (5-15) Blood Urea Nitrogen 47 mg/dL (7-18) H Creatinine 4.0 MG/DL (0.55-1.30) H Estimat Glomerular Filtration Rate 11.1 mL/min (>60) Glucose Level 130 MG/DL (74-106) H Calcium Level 8.1 MG/DL (8.5-10.1) L Phosphorus Level 4.7 MG/DL (2.5-4.9) Magnesium Level 2.4 MG/DL (1.8-2.4) Total Bilirubin 0.8 MG/DL (0.2-1.0) Gamma Glutamyl Transpeptidase 63 U/L (5-85) Aspartate Amino Transf (AST/SGOT) 19 U/L (15-37) Alanine Aminotransferase (ALT/SGPT) 9 U/L (12-78) L Alkaline Phosphatase 130 U/L (46-116) H Lactate Dehydrogenase 179 U/L (81-234) C-Reactive Protein, Quantitative 11.8 mg/dL (0.00-0.90) H Pro-B-Type Natriuretic Peptide 22623 pg/mL (0-125) H Total Protein 6.5 G/DL (6.4-8.2) Albumin 2.4 G/DL (3.4-5.0) L Globulin 4.1 g/dL Albumin/Globulin Ratio 0.6 (1.0-2.7) L Microbiology Date/Time Source Procedure Growth Status 09/10/20 15:20 Nasopharynx SARS-CoV-2 RdRp Gene Assay - Final Complete 09/09/20 14:58 Urine,Clean Catch Urine Culture - Preliminary Gram Positive Cocci Resulted Objective HEAD AND NECK: No JVD. LUNGS: Coarse rhonchi, bibasilar rales.Right chest PermCath CARDIOVASCULAR: Regular S1 and S2 with no gallop. ABDOMEN: Soft. EXTREMITIES: Bilateral 2+ pitting edema and bandage on both legs Sina Paulson MD Sep 11, 2020 16:24
[2020-09-11 20:00] VITALS: BP 109/50
[2020-09-11] MEDS: Dyna-Hex 2% Top Sol 2oz TOPIC SCH (20:57)
[2020-09-11] MEDS: Iron Sucrose 100 MG in NS 55 ML IVPB SCH (20:58)
[2020-09-12] VITALS: BP 100/60
[2020-09-12 04:00] VITALS: BP 97/55
[2020-09-12] MEDS: NovoLOG Insulin Flexpen SUBQ SCH ×4 (06:30→21:00)
--- NOTE | 2020-09-12 06:37 | General Progress Note ---
Subjective Allergies: Coded Allergies: No Known Allergies (Unverified , 10/10/19) All Systems: reviewed and negative except above Subjective events noted - interval notes reviewed one elevated glucose value yesterday otherwise stable glucose Item Value Date Time Bedside Blood Glucose 164 mg/dl H 09/11/20 2100 Bedside Blood Glucose 273 mg/dl H 09/11/20 1630 Bedside Blood Glucose 161 mg/dl H 09/11/20 1142 Bedside Blood Glucose 101 mg/dl 09/11/20 0630 Bedside Blood Glucose 106 mg/dl 09/10/20 2100 Objective Last 24 Hour Vital Signs Date Time Temp Pulse Resp B/P (MAP) Pulse Ox O2 Delivery O2 Flow Rate FiO2 09/12/20 00:00 62 09/12/20 00:00 97.2 51 20 100/60 (73) 99 09/11/20 21:00 Nasal Cannula 2.0 09/11/20 20:00 97.5 63 20 109/50 (69) 95 09/11/20 20:00 65 09/11/20 19:12 95 Nasal Cannula 4.0 36 09/11/20 19:11 62 18 95 Nasal Cannula 4.0 36 09/11/20 16:00 97.8 71 20 110/70 (83) 95 09/11/20 16:00 63 09/11/20 12:00 65 09/11/20 12:00 97.8 65 20 103/65 (78) 94 09/11/20 09:00 Nasal Cannula 4.0 Nasal Cannula 4.0 09/11/20 08:00 66 09/11/20 08:00 97.1 72 20 114/74 (87) 94 Intake and Output 09/11/20 09/12/20 19:00 07:00 Intake Total 590 ml 60 ml Balance 590 ml 60 ml Intake Oral 590 ml IV Total 60 ml # Voids 2 Laboratory Tests 09/11/20 11:37: POC Whole Blood Glucose 161H 09/11/20 17:27: POC Whole Blood Glucose [Pending] 09/11/20 19:39: POC Whole Blood Glucose 164H Height (Feet): 5 Height (Inches): 10.00 Weight (Pounds): 218 General Appearance: no apparent distress Neck: normal alignment Respiratory/Chest: decreased breath sounds Abdomen: normal bowel sounds Pelvis: normal external exam Objective Current Medications Medications (Trade) Dose Ordered Sig/Bra[place] Route PRN Reason Start Time Stop Time Status Last Admin Dose Admin Acetaminophen (Tylenol) 650 mg Q4H PRN ORAL FEVER 08/30/20 23:45 09/29/20 23:44 Acetaminophen/ Hydrocodone Bitart ([place] 5/325) 1 tab Q6H PRN ORAL Severe Pain (Pain Scale 7-10) 09/09/20 12:15 09/16/20 12:14 09/09/20 13:04 Albuterol/ Ipratropium (Albuterol/ Ipratropium) 3 ml Q4H PRN HHN Shortness of Breath 09/07/20 09:00 09/12/20 08:59 Allopurinol (Zyloprim) 100 mg DAILY ORAL 09/09/20 09:00 10/09/20 08:59 09/11/20 08:44 Calcium Acetate (Phoslo) 667 mg TIAC ORAL 09/08/20 11:30 12/07/20 11:29 09/11/20 17:15 Chlorhexidine Gluconate (Josiane-Hex 2%) 1 applic DAILY@1999 TOPIC 09/06/20 20:00 12/05/20 19:59 09/11/20 20:57 Dexamethasone (Decadron) 6 mg DAILY ORAL 09/10/20 21:00 09/19/20 09:01 09/11/20 08:43 Dextrose (Dextrose 50%) 25 ml Q30M PRN IV Hypoglycemia 08/30/20 23:45 11/28/20 23:44 Dextrose (Dextrose 50%) 50 ml Q30M PRN IV Hypoglycemia 08/30/20 23:45 11/28/20 23:44 Epoetin Shlomo (Epoetin Shlomo(ESRD on dialysis)) 10,000 unit TUE-TUE-TUE SUBQ 09/08/20 21:00 12/07/20 20:59 09/10/20 21:28 Folic Acid (Folate) 3 mg DAILY ORAL 09/02/20 09:00 10/02/20 08:59 09/11/20 08:44 Heparin Sodium (Porcine) (Heparin 5000 units/ml) 5,000 units EVERY 12 HOURS SUBQ 08/31/20 09:00 10/15/20 08:59 09/06/20 00:16 Indomethacin (Indocin) 25 mg THREE TIMES A DAY ORAL 09/04/20 13:00 10/04/20 12:59 09/11/20 17:48 Insulin Aspart (NovoLOG) BEFORE MEALS AND HS SUBQ 08/31/20 06:30 11/29/20 06:29 09/11/20 21:00 Iron Sucrose 100 mg/Sodium Chloride 60 ml @ 240 mls/hr BEDTIME IVPB 09/08/20 21:00 09/12/20 21:14 09/11/20 20:58 Levothyroxine Sodium (Synthroid) 100 mcg DAILY@0630 ORAL 09/02/20 06:30 10/02/20 06:29 09/11/20 06:20 Metoclopramide HCl (Reglan) 5 mg THREE TIMES A DAY ORAL 08/31/20 13:00 09/30/20 12:59 09/11/20 17:48 Ondansetron HCl (Zofran) 4 mg Q6H PRN IVP Nausea & Vomiting 08/30/20 23:45 09/29/20 23:44 Pantoprazole (Protonix) 40 mg EVERY 12 HOURS ORAL 08/31/20 21:00 09/30/20 20:59 09/11/20 20:58 Polyethylene Glycol (Miralax) 17 gm DAILYPRN PRN ORAL Constipation 08/30/20 23:45 09/29/20 23:44 Promethazine HCl/ Codeine (Phenergan with Codeine) 5 ml Q6H PRN ORAL cough 08/30/20 23:45 09/29/20 23:44 Theophylline (Theophylline) 80 mg Q8HR ORAL 09/09/20 14:00 12/08/20 13:59 09/11/20 21:02 Assessment/Plan Problem List: (1) Renal failure (ARF), acute on chronic ICD Codes: N17.9 - Acute kidney failure, unspecified; N18.9 - Chronic kidney disease, unspecified SNOMED: 838623324 (2) CAD (coronary artery disease) ICD Codes: I25.10 - Atherosclerotic heart disease of [place] coronary artery without angina pectoris SNOMED: 98154307 (3) Diabetes mellitus ICD Codes: E11.9 - Type 2 diabetes mellitus without complications SNOMED: 86914891 (4) Left bundle branch block (LBBB) ICD Codes: I44.7 - Left bundle-branch block, unspecified SNOMED: 76522625 (5) Hypothyroidism ICD Codes: E03.9 - Hypothyroidism, unspecified SNOMED: 44445930 Status: unchanged Assessment/Plan: no need for basal insulin continue Novolog sliding scale ac / hs continue LT4 100 mcg daily repeat thyroid function next week Jake Alexander MD Sep 12, 2020 06:37
[2020-09-12] MEDS: Theophylline 80mg/15ml ORAL SCH ×3 (07:13→21:49)
[2020-09-12 07:23] LABS: HEMATOCRIT 28.3 % (37.0-47.0); HEMOGLOBIN 8.5 G/DL (12.0-16.0); MEAN CORPUSCULAR VOLUME 97 FL (80-99); PLATELET COUNT 108 K/UL (150-450); RED BLOOD COUNT 2.91 M/UL (4.20-5.40); RED CELL DISTRIBUTION WIDTH 18.3 % (11.6-14.8); WHITE BLOOD COUNT 14.2 K/UL (4.8-10.8)
--- NOTE | 2020-09-12 07:24 | Infectious Diseases Prog Note ---
Assessment/Plan 70yo F with: COVID pna, ?from visiting family vs hospital acquired vs very early disease on admission, waiting confirmatory testing 08/30 Rapid COVID neg 09/10 Rapid COVID neg 09/10 Rapid COVID PCR positive 09/10 COVID PCR p 09/11 CXR read p Severe Sepsis Pneumonia Acute hypoxic resp failure- on 2L NC R pleural effusion, transudate -09/03 SP Thoracentesis: Successful ultrasound-guided thoracentesis, yielding 680 milliliters of clear yellow fluid; cx NTD -fluid prot 1.4, glucose 198 -09/01 Chest US: Positive for right pleural effusion Incidental finding of ascites, also previously reporte -08/30 CXR: There is again patchy ill-defined airspace opacities at the right greater than left base with some consolidated appearance again seen on the right. There is now patchy ill-defined opacity at the right upper lung. A small right pleural effusion is suggested. The patient is rotated to the right. Status post median sternotomy again noted. -08/30 & rapid covid PCR neg x2 -08/30 Bcx NTD R/o UTI 09/09 UA 15-20 WBC, UCx NTD, UCx +80-90k VRE (S-linezolid), m/l colonizer Afebrile Leukocytosis, SP -09/02 Bcx NTD -08/31 u/a no pyuria R arm and R leg cellulitis; improving Recent hx of COVID19- pt clarified initial diagnosis was 2 months ago and not 08/25 as per documentation on EMR. VENANCIO on CKD -Renal US: Ascites. Bilateral pleural effusions. Complex right renal cysts of uncertain etiology. This complex cyst is unchanged from the study of 01/12/2020. Mildly atrophic right kidney.Magnetic resonance imaging of the abdomen with gadolinium administration is advised for further evaluation of complex right renal cyst. 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 Will continue to follow along with you. Subjective Allergies: Coded Allergies: No Known Allergies (Unverified , 10/10/19) AF NAD on 2L NC WBC 14 on steroids Objective Last 24 Hour Vital Signs Date Time Temp Pulse Resp B/P (MAP) Pulse Ox O2 Delivery O2 Flow Rate FiO2 09/12/20 04:00 97.6 63 20 97/55 (69) 96 09/12/20 04:00 65 09/12/20 00:00 62 09/12/20 00:00 97.2 51 20 100/60 (73) 99 09/11/20 21:00 Nasal Cannula 2.0 09/11/20 20:00 97.5 63 20 109/50 (69) 95 09/11/20 20:00 65 09/11/20 19:12 95 Nasal Cannula 4.0 36 09/11/20 19:11 62 18 95 Nasal Cannula 4.0 36 09/11/20 16:00 97.8 71 20 110/70 (83) 95 09/11/20 16:00 63 09/11/20 12:00 65 09/11/20 12:00 97.8 65 20 103/65 (78) 94 09/11/20 09:00 Nasal Cannula 4.0 Nasal Cannula 4.0 09/11/20 08:00 66 09/11/20 08:00 97.1 72 20 114/74 (87) 94 Height (Feet): 5 Height (Inches): 10.00 Weight (Pounds): 218 Gen: NAD in bed HEENT: NCAT, EOMI, PERRL Pulm: BL chest rise on NC Abd: Soft, NTND Ext: No c/c/e Neuro: Awake, interactive, pleasant Microbiology Date/Time Source Procedure Growth Status 09/10/20 15:20 Nasopharynx SARS-CoV-2 RdRp Gene Assay - Final Complete 09/09/20 14:58 Urine,Clean Catch Urine Culture - Final Enterococcus Faecium - Vre Complete Laboratory Tests Test 09/11/20 11:37 09/11/20 17:27 09/11/20 19:39 09/12/20 06:10 POC Whole Blood Glucose 161 MG/DL (74-106) H Pending 164 MG/DL (74-106) H White Blood Count Pending Red Blood Count Pending Hemoglobin Pending Hematocrit Pending Mean Corpuscular Volume Pending Mean Corpuscular Hemoglobin Pending Mean Corpuscular Hemoglobin Concent Pending Red Cell Distribution Width Pending Platelet Count Pending Mean Platelet Volume Pending Neutrophils (%) (Auto) Pending Lymphocytes (%) (Auto) Pending Monocytes (%) (Auto) Pending Eosinophils (%) (Auto) Pending Basophils (%) (Auto) Pending Sodium Level Pending Potassium Level Pending Chloride Level Pending Carbon Dioxide Level Pending Blood Urea Nitrogen Pending Creatinine Pending Estimat Glomerular Filtration Rate Pending Glucose Level Pending Calcium Level Pending Test 09/12/20 06:42 POC Whole Blood Glucose Pending Current Medications Medications (Trade) Dose Ordered Sig/Braeden Route PRN Reason Start Time Stop Time Status Last Admin Dose Admin Acetaminophen (Tylenol) 650 mg Q4H PRN ORAL FEVER 08/30/20 23:45 09/29/20 23:44 Acetaminophen/ Hydrocodone Bitart ([place] 5/325) 1 tab Q6H PRN ORAL Severe Pain (Pain Scale 7-10) 09/09/20 12:15 09/16/20 12:14 09/09/20 13:04 Albuterol/ Ipratropium (Albuterol/ Ipratropium) 3 ml Q4H PRN HHN Shortness of Breath 09/07/20 09:00 09/12/20 08:59 Allopurinol (Zyloprim) 100 mg DAILY ORAL 09/09/20 09:00 10/09/20 08:59 09/11/20 08:44 Calcium Acetate (Phoslo) 667 mg TIAC ORAL 09/08/20 11:30 12/07/20 11:29 09/12/20 07:14 Chlorhexidine Gluconate (Josiane-Hex 2%) 1 applic DAILY@1999 TOPIC 09/06/20 20:00 12/05/20 19:59 09/11/20 20:57 Dexamethasone (Decadron) 6 mg DAILY ORAL 09/10/20 21:00 09/19/20 09:01 09/11/20 08:43 Dextrose (Dextrose 50%) 25 ml Q30M PRN IV Hypoglycemia 08/30/20 23:45 11/28/20 23:44 Dextrose (Dextrose 50%) 50 ml Q30M PRN IV Hypoglycemia 08/30/20 23:45 11/28/20 23:44 Epoetin Shlomo (Epoetin Shlomo(ESRD on dialysis)) 10,000 unit TUE-TUE-TUE SUBQ 09/08/20 21:00 12/07/20 20:59 09/10/20 21:28 Folic Acid (Folate) 3 mg DAILY ORAL 09/02/20 09:00 10/02/20 08:59 09/11/20 08:44 Heparin Sodium (Porcine) (Heparin 5000 units/ml) 5,000 units EVERY 12 HOURS SUBQ 08/31/20 09:00 10/15/20 08:59 09/06/20 00:16 Indomethacin (Indocin) 25 mg THREE TIMES A DAY ORAL 09/04/20 13:00 10/04/20 12:59 09/11/20 17:48 Insulin Aspart (NovoLOG) BEFORE MEALS AND HS SUBQ 08/31/20 06:30 11/29/20 06:29 09/12/20 06:30 Iron Sucrose 100 mg/Sodium Chloride 60 ml @ 240 mls/hr BEDTIME IVPB 09/08/20 21:00 09/12/20 21:14 09/11/20 20:58 Levothyroxine Sodium (Synthroid) 100 mcg DAILY@0630 ORAL 09/02/20 06:30 10/02/20 06:29 09/12/20 07:14 Metoclopramide HCl (Reglan) 5 mg THREE TIMES A DAY ORAL 08/31/20 13:00 09/30/20 12:59 09/11/20 17:48 Ondansetron HCl (Zofran) 4 mg Q6H PRN IVP Nausea & Vomiting 08/30/20 23:45 09/29/20 23:44 Pantoprazole (Protonix) 40 mg EVERY 12 HOURS ORAL 08/31/20 21:00 09/30/20 20:59 09/11/20 20:58 Polyethylene Glycol (Miralax) 17 gm DAILYPRN PRN ORAL Constipation 08/30/20 23:45 09/29/20 23:44 Promethazine HCl/ Codeine (Phenergan with Codeine) 5 ml Q6H PRN ORAL cough 08/30/20 23:45 09/29/20 23:44 Theophylline (Theophylline) 80 mg Q8HR ORAL 09/09/20 14:00 12/08/20 13:59 09/12/20 07:13 Nadia Calvin M.D. Sep 12, 2020 07:24
[2020-09-12 08:00] VITALS: BP 159/84
[2020-09-12 08:01] LABS: CALCIUM 8.1 MG/DL (8.5-10.1); CREATININE 4.8 MG/DL (0.55-1.30); POTASSIUM 4.1 MMOL/L (3.5-5.1)
--- NOTE | 2020-09-12 08:55 | General Progress Note ---
Subjective Constitutional: Reports: weakness Allergies: Coded Allergies: No Known Allergies (Unverified , 10/10/19) All Systems: reviewed and negative except above Subjective o2nc calm Objective Last 24 Hour Vital Signs Date Time Temp Pulse Resp B/P (MAP) Pulse Ox O2 Delivery O2 Flow Rate FiO2 09/12/20 04:00 97.6 63 20 97/55 (69) 96 09/12/20 04:00 65 09/12/20 00:00 62 09/12/20 00:00 97.2 51 20 100/60 (73) 99 09/11/20 21:00 Nasal Cannula 2.0 09/11/20 20:00 97.5 63 20 109/50 (69) 95 09/11/20 20:00 65 09/11/20 19:12 95 Nasal Cannula 4.0 36 09/11/20 19:11 62 18 95 Nasal Cannula 4.0 36 09/11/20 16:00 97.8 71 20 110/70 (83) 95 09/11/20 16:00 63 09/11/20 12:00 65 09/11/20 12:00 97.8 65 20 103/65 (78) 94 09/11/20 09:00 Nasal Cannula 4.0 Nasal Cannula 4.0 Intake and Output 09/11/20 09/12/20 19:00 07:00 Intake Total 590 ml 60 ml Balance 590 ml 60 ml Intake Oral 590 ml IV Total 60 ml # Voids 2 Laboratory Tests 09/11/20 11:37: POC Whole Blood Glucose 161H 09/11/20 17:27: POC Whole Blood Glucose [Pending] 09/11/20 19:39: POC Whole Blood Glucose 164H 09/12/20 06:10: White Blood Count 14.2H, Red Blood Count 2.91L, Hemoglobin 8.5L, Hematocrit 28.3L, Mean Corpuscular Volume 97, Mean Corpuscular Hemoglobin 29.3, Mean Corpuscular Hemoglobin Concent 30.1L, Red Cell Distribution Width 18.3H, Platelet Count 108L, Mean Platelet Volume 7.7, Neutrophils (%) (Auto) , Lymphocytes (%) (Auto) , Monocytes (%) (Auto) , Eosinophils (%) (Auto) , Basophils (%) (Auto) , Neutrophils % (Manual) [Pending], Lymphocytes % (Manual) [Pending], Platelet Estimate [Pending], Platelet Morphology [Pending], Sodium Level 136, Potassium Level 4.1, Chloride Level 100, Carbon Dioxide Level 26, Anion Gap 11, Blood Urea Nitrogen 55H, Creatinine 4.8H, Estimat Glomerular Filtration Rate 9.0, Glucose Level 153H, Calcium Level 8.1L 09/12/20 06:42: POC Whole Blood Glucose [Pending] Height (Feet): 5 Height (Inches): 10.00 Weight (Pounds): 218 General Appearance: lethargic EENT: normal ENT inspection Neck: normal alignment Cardiovascular: normal peripheral pulses, normal rate, regular rhythm Respiratory/Chest: chest wall non-tender, lungs clear, normal breath sounds Abdomen: normal bowel sounds, non tender, soft Extremities: normal inspection Edema: no edema noted Arm (L), no edema noted Arm (R), no edema noted Leg (L), no edema noted Leg (R), no edema noted Pedal (L), no edema noted Pedal (R), no edema noted Generalized Neurologic: motor weakness Skin: normal pigmentation, warm/dry Assessment/Plan Problem List: (1) UTI (urinary tract infection) ICD Codes: N39.0 - Urinary tract infection, site not specified SNOMED: 76646689 (2) Acute respiratory failure ICD Codes: J96.00 - Acute respiratory failure, unspecified whether with hypoxia or hypercapnia SNOMED: 57307182 (3) History of hypertension ICD Codes: Z86.79 - Personal history of other diseases of the circulatory system SNOMED: 042350892 (4) Diabetes mellitus ICD Codes: E11.9 - Type 2 diabetes mellitus without complications SNOMED: 58647719 (5) Renal failure (ARF), acute on chronic ICD Codes: N17.9 - Acute kidney failure, unspecified; N18.9 - Chronic kidney disease, unspecified SNOMED: 578034642 (6) COVID-19 ICD Codes: U07.1 - COVID-19 SNOMED: 990796404 Status: unchanged Assessment/Plan: o2 pulm tx abx pt diet cbc bmp am aru Dyllan Gonzalez DO Sep 12, 2020 08:55
[2020-09-12] MEDS: Heparin 5000 units/ml inj SUBQ SCH ×2 (09:00→21:00)
--- NOTE | 2020-09-12 09:14 | Hematology/Onc Progress Note ---
Assessment/Plan Assessment/Plan Assessment and Recs: # Anemia of chronic disease due to underlying chronic medical issues, multifactorial v Gi bleed --> Anemia workup has been ordered, rule out gi bleed --> No evidence of hemolysis is noted, peripheral smear has been reviewed. --> Hgb goal >7. Transfuse prn. --> EPOGEN AND IV IRON STARTED, CONTINUE --> Medications have been reviewed --> hgb 7.7-->8-->8.4-->8->8 --> egd w/ colo 01/15/20 Gastritis, status post biopsy. Total of 11 polyps removed, Internal hemorrhoids. # Thromocytopenia likely related to infection v reactive process, DOES HAVE CIRRHOSIS --> hep and hiv are neg --> imaging abd has been reviewed. noted liver disease, cirrhosis --> peripheral smear noted --> plt 75-->108 # Coagulation defect, multifactorial usually related to poor PO intake versus medications, versus hepatitis v cirrhosis --> administer Vitamin K if patient is bleeding or FFP if the INR is >10 --> hold off on ffp unless active procedure/bleeding, first begin with vit K 10 --> mixing study as needed # Renal failure (ARF), acute on chronic --> ivf as per renal --> renal us reviewed --> improved --> HD as per renal # Hypoglycemia -> endo eval prn # Pleural effusion --> diuresis as needed --> monitor ivf --> HD # Hyperkalemia # Obesity # Dvt ppx heparin sq The timing of this note does not necessarily reflect the time of the patient was seen. Greatly appreciate consultation. Subjective Constitutional: Denies: no symptoms, chills, fever, malaise, weakness, other Cardiovascular: Denies: no symptoms, chest pain, edema, irregular heart rate, lightheadedness, palpitations, syncope, other Respiratory: Denies: no symptoms, cough, shortness of breath, SOB with excertion, SOB at rest, sputum, wheezing, other Gastrointestinal/Abdominal: Denies: no symptoms, abdomen distended, abdominal pain, black stools, tarry stools, blood in stool, constipated, diarrhea, difficulty swallowing, nausea, poor appetite, poor fluid intake, rectal bleeding, vomiting, other Genitourinary: Denies: no symptoms, burning, discharge, frequency, flank pain, hematuria, incontinence, pain, urgency, other Neurologic/Psychiatric: Denies: no symptoms, anxiety, depressed, emotional problems, headache, numbness, paresthesia, pre-existing deficit, seizure, tingling, tremors, weakness, other Endocrine: Denies: no symptoms, excessive sweating, flushing, intolerance to cold, intolerance to heat, increased hunger, increased thirst, increased urine, unexplained weight gain, unexplained weight loss, other Hematologic/Lymphatic: Denies: no symptoms, anemia, easy bleeding, easy bruising, adenopathy, other Allergies: Coded Allergies: No Known Allergies (Unverified , 10/10/19) Subjective 09/08 labs reviewed, hd as per renal, fluid overload improved, labs noted, with dropping plt 09/09 pending plt count this am, on abx, broad spectrum, no other events 09/10 labs pending, is comfortable, is on 3l nc, no bleeding 09/11 on 5L weaning, no night sweats, meds reviewed 09/12 labs noted, no bleeding, plts improved, meds reviewed Objective Objective Current Medications Medications (Trade) Dose Ordered Sig/Bra[place] Route PRN Reason Start Time Stop Time Status Last Admin Dose Admin Acetaminophen (Tylenol) 650 mg Q4H PRN ORAL FEVER 08/30/20 23:45 09/29/20 23:44 Acetaminophen/ Hydrocodone Bitart ([place] 5/325) 1 tab Q6H PRN ORAL Severe Pain (Pain Scale 7-10) 09/09/20 12:15 09/16/20 12:14 09/09/20 13:04 Albumin Human 100 ml @ 100 mls/hr ONCE ONCE IV 09/12/20 08:45 09/12/20 09:44 Allopurinol (Zyloprim) 100 mg DAILY ORAL 09/09/20 09:00 10/09/20 08:59 09/11/20 08:44 Calcium Acetate (Phoslo) 667 mg TIAC ORAL 09/08/20 11:30 12/07/20 11:29 09/12/20 07:14 Chlorhexidine Gluconate (Josiane-Hex 2%) 1 applic DAILY@2000 TOPIC 09/06/20 20:00 12/05/20 19:59 09/11/20 20:57 Dexamethasone (Decadron) 6 mg DAILY ORAL 09/10/20 21:00 09/19/20 09:01 09/11/20 08:43 Dextrose (Dextrose 50%) 25 ml Q30M PRN IV Hypoglycemia 08/30/20 23:45 11/28/20 23:44 Dextrose (Dextrose 50%) 50 ml Q30M PRN IV Hypoglycemia 08/30/20 23:45 11/28/20 23:44 Epoetin Shlomo (Epoetin Shlomo(ESRD on dialysis)) 10,000 unit TUE- SUBQ 09/08/20 21:00 12/07/20 20:59 09/10/20 21:28 Folic Acid (Folate) 3 mg DAILY ORAL 09/02/20 09:00 10/02/20 08:59 09/11/20 08:44 Heparin Sodium (Porcine) (Heparin 5000 units/ml) 5,000 units EVERY 12 HOURS SUBQ 08/31/20 09:00 10/15/20 08:59 09/06/20 00:16 Indomethacin (Indocin) 25 mg THREE TIMES A DAY ORAL 09/04/20 13:00 10/04/20 12:59 09/11/20 17:48 Insulin Aspart (NovoLOG) BEFORE MEALS AND HS SUBQ 08/31/20 06:30 11/29/20 06:29 09/12/20 06:30 Iron Sucrose 100 mg/Sodium Chloride 60 ml @ 240 mls/hr BEDTIME IVPB 09/08/20 21:00 09/12/20 21:14 09/11/20 20:58 Levothyroxine Sodium (Synthroid) 100 mcg DAILY@0630 ORAL 09/02/20 06:30 10/02/20 06:29 09/12/20 07:14 Metoclopramide HCl (Reglan) 5 mg THREE TIMES A DAY ORAL 08/31/20 13:00 09/30/20 12:59 09/11/20 17:48 Ondansetron HCl (Zofran) 4 mg Q6H PRN IVP Nausea & Vomiting 08/30/20 23:45 09/29/20 23:44 Pantoprazole (Protonix) 40 mg EVERY 12 HOURS ORAL 08/31/20 21:00 09/30/20 20:59 09/11/20 20:58 Polyethylene Glycol (Miralax) 17 gm DAILYPRN PRN ORAL Constipation 08/30/20 23:45 09/29/20 23:44 Promethazine HCl/ Codeine (Phenergan with Codeine) 5 ml Q6H PRN ORAL cough 08/30/20 23:45 09/29/20 23:44 Theophylline (Theophylline) 80 mg Q8HR ORAL 09/09/20 14:00 12/08/20 13:59 09/12/20 07:13 Last 24 Hour Vital Signs Date Time Temp Pulse Resp B/P (MAP) Pulse Ox O2 Delivery O2 Flow Rate FiO2 09/12/20 04:00 97.6 63 20 97/55 (69) 96 09/12/20 04:00 65 09/12/20 00:00 62 09/12/20 00:00 97.2 51 20 100/60 (73) 99 09/11/20 21:00 Nasal Cannula 2.0 09/11/20 20:00 97.5 63 20 109/50 (69) 95 09/11/20 20:00 65 09/11/20 19:12 95 Nasal Cannula 4.0 36 09/11/20 19:11 62 18 95 Nasal Cannula 4.0 36 09/11/20 16:00 97.8 71 20 110/70 (83) 95 09/11/20 16:00 63 09/11/20 12:00 65 09/11/20 12:00 97.8 65 20 103/65 (78) 94 09/11/20 09:00 Nasal Cannula 4.0 Nasal Cannula 4.0 09/11/20 08:00 66 09/11/20 08:00 97.1 72 20 114/74 (87) 94 09/11/20 06:33 96 Nasal Cannula 4.0 36 09/11/20 06:32 65 18 96 Nasal Cannula 4.0 36 09/11/20 04:00 62 09/11/20 04:00 97.7 59 20 147/78 (101) 96 09/11/20 00:00 97.0 61 18 100/60 (73) 94 09/11/20 00:00 64 09/10/20 21:00 Nasal Cannula 4.0 Nasal Cannula 4.0 09/10/20 20:00 63 09/10/20 20:00 97.2 60 20 98/54 (69) 95 09/10/20 16:00 97.5 61 20 81/51 (61) 98 09/10/20 16:00 63 09/10/20 12:00 97.7 65 20 93/47 (62) 96 09/10/20 12:00 60 09/10/20 12:00 97.7 65 20 93/48 (63) 96 Intake and Output 09/11/20 09/12/20 19:00 07:00 Intake Total 590 ml 60 ml Balance 590 ml 60 ml Intake Oral 590 ml IV Total 60 ml # Voids 2 Labs Test 09/09/20 12:59 09/09/20 14:58 09/09/20 17:11 09/09/20 17:59 Urine Color [place] Urine Appearance Very cloudy Urine pH 5 (4.5-8.0) Urine Specific [place] 1.030 (1.005-1.035) Urine Protein 3+ (NEGATIVE) Urine Glucose (UA) Negative (NEGATIVE) Urine Ketones 2+ (NEGATIVE) Urine Blood 5+ (NEGATIVE) Urine Nitrite Positive (NEGATIVE) Urine Bilirubin 2+ (NEGATIVE) Urine Ictotest Negative (NEGATIVE) Urine Urobilinogen 1 MG/DL (0.0-1.0) Urine Leukocyte Esterase 3+ (NEGATIVE) Urine RBC Tntc /HPF (0 - 2) Urine WBC 15-20 /HPF (0 - 2) Urine Squamous Epithelial Cells Moderate /LPF (NONE/OCC) Urine Bacteria Many /HPF (NONE) POC Whole Blood Glucose 79 MG/DL (74-106) 95 MG/DL (74-106) Test 09/09/20 20:51 09/10/20 05:42 09/10/20 06:39 09/10/20 11:52 White Blood Count 10.1 K/UL (4.8-10.8) Red Blood Count 2.84 M/UL (4.20-5.40) Hemoglobin 8.3 G/DL (12.0-16.0) Hematocrit 27.6 % (37.0-47.0) Mean Corpuscular Volume 97 FL (80-99) Mean Corpuscular Hemoglobin 29.1 PG (27.0-31.0) Mean Corpuscular Hemoglobin Concent 29.9 G/DL (32.0-36.0) Red Cell Distribution Width 17.6 % (11.6-14.8) Platelet Count 78 K/UL (150-450) Mean Platelet Volume 9.2 FL (6.5-10.1) Neutrophils (%) (Auto) % (45.0-75.0) Lymphocytes (%) (Auto) % (20.0-45.0) Monocytes (%) (Auto) % (1.0-10.0) Eosinophils (%) (Auto) % (0.0-3.0) Basophils (%) (Auto) % (0.0-2.0) Differential Total Cells Counted 100 Neutrophils % (Manual) 80 % (45-75) Lymphocytes % (Manual) 10 % (20-45) Monocytes % (Manual) 7 % (1-10) Eosinophils % (Manual) 2 % (0-3) Basophils % (Manual) 1 % (0-2) Band Neutrophils 0 % (0-8) Platelet Estimate Decreased Platelet Morphology Normal Hypochromasia 1+ Anisocytosis 1+ Microcytosis Occasional Macrocytosis 1+ Sodium Level 137 MMOL/L (136-145) Potassium Level 4.2 MMOL/L (3.5-5.1) Chloride Level 101 MMOL/L (98-107) Carbon Dioxide Level 28 MMOL/L (21-32) Anion Gap 8 mmol/L (5-15) Blood Urea Nitrogen 54 mg/dL (7-18) Creatinine 4.3 MG/DL (0.55-1.30) Estimat Glomerular Filtration Rate 10.2 mL/min (>60) Glucose Level 79 MG/DL (74-106) Uric Acid 4.5 MG/DL (2.6-7.2) Calcium Level 8.0 MG/DL (8.5-10.1) Phosphorus Level 5.2 MG/DL (2.5-4.9) Magnesium Level 2.5 MG/DL (1.8-2.4) Total Bilirubin 0.7 MG/DL (0.2-1.0) Aspartate Amino Transf (AST/SGOT) 20 U/L (15-37) Alanine Aminotransferase (ALT/SGPT) 6 U/L (12-78) Alkaline Phosphatase 124 U/L (46-116) C-Reactive Protein, Quantitative 11.7 mg/dL (0.00-0.90) Pro-B-Type Natriuretic Peptide 01569 pg/mL (0-125) Total Protein 6.4 G/DL (6.4-8.2) Albumin 2.4 G/DL (3.4-5.0) Globulin 4.0 g/dL Albumin/Globulin Ratio 0.6 (1.0-2.7) HIV (1&2) Antibody Rapid Negative (NEGATIVE) POC Whole Blood Glucose 117 MG/DL (74-106) Test 09/10/20 15:43 09/10/20 18:40 09/11/20 05:55 09/11/20 06:24 POC Whole Blood Glucose 124 MG/DL (74-106) 126 MG/DL (74-106) 132 MG/DL (74-106) White Blood Count 12.4 K/UL (4.8-10.8) Red Blood Count 2.83 M/UL (4.20-5.40) Hemoglobin 8.3 G/DL (12.0-16.0) Hematocrit 25.8 % (37.0-47.0) Mean Corpuscular Volume 91 FL (80-99) Mean Corpuscular Hemoglobin 29.4 PG (27.0-31.0) Mean Corpuscular Hemoglobin Concent 32.2 G/DL (32.0-36.0) Red Cell Distribution Width 17.2 % (11.6-14.8) Platelet Count 73 K/UL (150-450) Mean Platelet Volume 10.5 FL (6.5-10.1) Neutrophils (%) (Auto) % (45.0-75.0) Lymphocytes (%) (Auto) % (20.0-45.0) Monocytes (%) (Auto) % (1.0-10.0) Eosinophils (%) (Auto) % (0.0-3.0) Basophils (%) (Auto) % (0.0-2.0) Differential Total Cells Counted 100 Neutrophils % (Manual) 94 % (45-75) Lymphocytes % (Manual) 4 % (20-45) Monocytes % (Manual) 2 % (1-10) Eosinophils % (Manual) 0 % (0-3) Basophils % (Manual) 0 % (0-2) Band Neutrophils 0 % (0-8) Platelet Estimate Decreased Platelet Morphology Normal Hypochromasia 1+ Anisocytosis 1+ Macrocytosis 1+ Sodium Level 137 MMOL/L (136-145) Potassium Level 4.1 MMOL/L (3.5-5.1) Chloride Level 101 MMOL/L (98-107) Carbon Dioxide Level 26 MMOL/L (21-32) Anion Gap 10 mmol/L (5-15) Blood Urea Nitrogen 47 mg/dL (7-18) Creatinine 4.0 MG/DL (0.55-1.30) Estimat Glomerular Filtration Rate 11.1 mL/min (>60) Glucose Level 130 MG/DL (74-106) Calcium Level 8.1 MG/DL (8.5-10.1) Phosphorus Level 4.7 MG/DL (2.5-4.9) Magnesium Level 2.4 MG/DL (1.8-2.4) Total Bilirubin 0.8 MG/DL (0.2-1.0) Gamma Glutamyl Transpeptidase 63 U/L (5-85) Aspartate Amino Transf (AST/SGOT) 19 U/L (15-37) Alanine Aminotransferase (ALT/SGPT) 9 U/L (12-78) Alkaline Phosphatase 130 U/L (46-116) Lactate Dehydrogenase 179 U/L (81-234) C-Reactive Protein, Quantitative 11.8 mg/dL (0.00-0.90) Pro-B-Type Natriuretic Peptide 72069 pg/mL (0-125) Total Protein 6.5 G/DL (6.4-8.2) Albumin 2.4 G/DL (3.4-5.0) Globulin 4.1 g/dL Albumin/Globulin Ratio 0.6 (1.0-2.7) Test 09/11/20 11:37 09/11/20 17:27 09/11/20 19:39 09/12/20 06:10 POC Whole Blood Glucose 161 MG/DL (74-106) 164 MG/DL (74-106) White Blood Count 14.2 K/UL (4.8-10.8) Red Blood Count 2.91 M/UL (4.20-5.40) Hemoglobin 8.5 G/DL (12.0-16.0) Hematocrit 28.3 % (37.0-47.0) Mean Corpuscular Volume 97 FL (80-99) Mean Corpuscular Hemoglobin 29.3 PG (27.0-31.0) Mean Corpuscular Hemoglobin Concent 30.1 G/DL (32.0-36.0) Red Cell Distribution Width 18.3 % (11.6-14.8) Platelet Count 108 K/UL (150-450) Mean Platelet Volume 7.7 FL (6.5-10.1) Neutrophils (%) (Auto) % (45.0-75.0) Lymphocytes (%) (Auto) % (20.0-45.0) Monocytes (%) (Auto) % (1.0-10.0) Eosinophils (%) (Auto) % (0.0-3.0) Basophils (%) (Auto) % (0.0-2.0) Sodium Level 136 MMOL/L (136-145) Potassium Level 4.1 MMOL/L (3.5-5.1) Chloride Level 100 MMOL/L (98-107) Carbon Dioxide Level 26 MMOL/L (21-32) Anion Gap 11 mmol/L (5-15) Blood Urea Nitrogen 55 mg/dL (7-18) Creatinine 4.8 MG/DL (0.55-1.30) Estimat Glomerular Filtration Rate 9.0 mL/min (>60) Glucose Level 153 MG/DL (74-106) Calcium Level 8.1 MG/DL (8.5-10.1) Test 09/12/20 06:42 Height (Feet): 5 Height (Inches): 10.00 Weight (Pounds): 218 Objective ++Derick Hwang MD Sep 12, 2020 09:13
[2020-09-12] MEDS: Allopurinol 100mg Tab ORAL SCH (09:27)
[2020-09-12] MEDS: Indomethacin 25mg cap ORAL SCH ×3 (09:27→18:15)
--- NOTE | 2020-09-12 11:05 | Pulmonology Progress Note ---
Subjective ROS Limited/Unobtainable: No Interval Events: no new events Constitutional: Reports: no symptoms HEENT: Repors: no symptoms Respiratory: Reports: no symptoms Allergies: Coded Allergies: No Known Allergies (Unverified , 10/10/19) All Systems: reviewed and negative except above Objective Last 24 Hour Vital Signs Date Time Temp Pulse Resp B/P (MAP) Pulse Ox O2 Delivery O2 Flow Rate FiO2 09/12/20 08:00 58 09/12/20 04:00 97.6 63 20 97/55 (69) 96 09/12/20 04:00 65 09/12/20 00:00 62 09/12/20 00:00 97.2 51 20 100/60 (73) 99 09/11/20 21:00 Nasal Cannula 2.0 09/11/20 20:00 97.5 63 20 109/50 (69) 95 09/11/20 20:00 65 09/11/20 19:12 95 Nasal Cannula 4.0 36 09/11/20 19:11 62 18 95 Nasal Cannula 4.0 36 09/11/20 16:00 97.8 71 20 110/70 (83) 95 09/11/20 16:00 63 09/11/20 12:00 65 09/11/20 12:00 97.8 65 20 103/65 (78) 94 Intake and Output 09/11/20 09/12/20 19:00 07:00 Intake Total 590 ml 60 ml Balance 590 ml 60 ml Intake Oral 590 ml IV Total 60 ml # Voids 2 General Appearance: WD/WN HEENT: normocephalic, atraumatic Respiratory: chest wall non-tender, lungs clear Breasts: no masses Cardiovascular: normal peripheral pulses Abdomen: normal bowel sounds, soft, non tender Genitourinary: normal external genitalia Extremities: no cyanosis, no clubbing, other - right knee swelling and warmth 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 Lymphatic: no neck adenopathy Microbiology Date/Time Source Procedure Growth Status 09/10/20 15:20 Nasopharynx SARS-CoV-2 RdRp Gene Assay - Final Complete 09/09/20 14:58 Urine,Clean Catch Urine Culture - Final Enterococcus Faecium - Vre Complete Laboratory Tests 09/11/20 11:37: POC Whole Blood Glucose 161H 09/11/20 17:27: POC Whole Blood Glucose [Pending] 09/11/20 19:39: POC Whole Blood Glucose 164H 09/12/20 06:10: White Blood Count 14.2H, Red Blood Count 2.91L, Hemoglobin 8.5L, Hematocrit 28.3L, Mean Corpuscular Volume 97, Mean Corpuscular Hemoglobin 29.3, Mean Corpuscular Hemoglobin Concent 30.1L, Red Cell Distribution Width 18.3H, Platelet Count 108L, Mean Platelet Volume 7.7, Neutrophils (%) (Auto) , Lymphocytes (%) (Auto) , Monocytes (%) (Auto) , Eosinophils (%) (Auto) , Basophils (%) (Auto) , Differential Total Cells Counted 100, Neutrophils % (Manual) 90H, Lymphocytes % (Manual) 6L, Monocytes % (Manual) 4, Eosinophils % (Manual) 0, Basophils % (Manual) 0, Band Neutrophils 0, Platelet Estimate DecreasedL, Platelet Morphology Normal, Anisocytosis 1+, Spherocytes 2+, Sodium Level 136, Potassium Level 4.1, Chloride Level 100, Carbon Dioxide Level 26, Anion Gap 11, Blood Urea Nitrogen 55H, Creatinine 4.8H, Estimat Glomerular Filtration Rate 9.0, Glucose Level 153H, Calcium Level 8.1L 09/12/20 06:42: POC Whole Blood Glucose [Pending] Current Medications Medications (Trade) Dose Ordered Sig/[place] Route PRN Reason Start Time Stop Time Status Last Admin Dose Admin Acetaminophen (Tylenol) 650 mg Q4H PRN ORAL FEVER 08/30/20 23:45 09/29/20 23:44 Acetaminophen/ Hydrocodone Bitart ([place] 5/325) 1 tab Q6H PRN ORAL Severe Pain (Pain Scale 7-10) 09/09/20 12:15 09/16/20 12:14 09/09/20 13:04 Allopurinol (Zyloprim) 100 mg DAILY ORAL 09/09/20 09:00 10/09/20 08:59 09/12/20 09:27 Calcium Acetate (Phoslo) 667 mg TIAC ORAL 09/08/20 11:30 12/07/20 11:29 09/12/20 07:14 Chlorhexidine Gluconate (Josiane-Hex 2%) 1 applic DAILY@1999 TOPIC 09/06/20 20:00 12/05/20 19:59 09/11/20 20:57 Dexamethasone (Decadron) 6 mg DAILY ORAL 09/10/20 21:00 09/19/20 09:01 09/12/20 09:27 Dextrose (Dextrose 50%) 25 ml Q30M PRN IV Hypoglycemia 08/30/20 23:45 2 23:44 Dextrose (Dextrose 50%) 50 ml Q30M PRN IV Hypoglycemia 08/30/20 23:45 11/28/20 23:44 Epoetin Shlomo (Epoetin Shlomo(ESRD on dialysis)) 10,000 unit TUE-TUE-TUE SUBQ 09/08/20 21:00 12/07/20 20:59 09/10/20 21:28 Folic Acid (Folate) 3 mg DAILY ORAL 09/02/20 09:00 10/02/20 08:59 09/11/20 08:44 Heparin Sodium (Porcine) (Heparin 5000 units/ml) 5,000 units EVERY 12 HOURS SUBQ 08/31/20 09:00 10/15/20 08:59 09/06/20 00:16 Indomethacin (Indocin) 25 mg THREE TIMES A DAY ORAL 09/04/20 13:00 10/04/20 12:59 09/12/20 09:27 Insulin Aspart (NovoLOG) BEFORE MEALS AND HS SUBQ 08/31/20 06:30 11/29/20 06:29 09/12/20 06:30 Iron Sucrose 100 mg/Sodium Chloride 60 ml @ 240 mls/hr BEDTIME IVPB 09/08/20 21:00 09/12/20 21:14 09/11/20 20:58 Levothyroxine Sodium (Synthroid) 100 mcg DAILY@0630 ORAL 09/02/20 06:30 10/02/20 06:29 09/12/20 07:14 Metoclopramide HCl (Reglan) 5 mg THREE TIMES A DAY ORAL 08/31/20 13:00 09/30/20 12:59 09/12/20 09:27 Ondansetron HCl (Zofran) 4 mg Q6H PRN IVP Nausea & Vomiting 08/30/20 23:45 09/29/20 23:44 Pantoprazole (Protonix) 40 mg EVERY 12 HOURS ORAL 08/31/20 21:00 09/30/20 20:59 09/12/20 09:27 Polyethylene Glycol (Miralax) 17 gm DAILYPRN PRN ORAL Constipation 08/30/20 23:45 09/29/20 23:44 Promethazine HCl/ Codeine (Phenergan with Codeine) 5 ml Q6H PRN ORAL cough 08/30/20 23:45 09/29/20 23:44 Theophylline (Theophylline) 80 mg Q8HR ORAL 09/09/20 14:00 12/08/20 13:59 09/12/20 07:13 Assessment/Plan Problems: (1) 2019 novel coronavirus disease (COVID-19) (2) Acute on chronic diastolic (congestive) heart failure (3) Gout (4) Renal failure (ARF), acute on chronic (5) Diabetes mellitus (6) Left bundle branch block (LBBB) (7) Cardiac left ventricular ejection fraction greater than 40 percent (8) Grade I diastolic dysfunction (9) History of hypertension Assessment/Plan COVID positive probably nosocomial f/u ID recommendations f/u inflammatory markers. O2 titrate to keep sat > 92%, currently down to O2 via NC thoracentesis done, 600 cc removed from right side. DVT prophylaxis Tiana Cool MD Sep 12, 2020 11:05
--- NOTE | 2020-09-12 11:49 | Cardiac Electrophysiology PN ---
Assessment/Plan Assessment/Plan 1. Volume overload due to renal failure as creatinine is 3.5. Echo showed EF of 50%. Off Amlodipine. On HD after PermCath placement 09/05. 2. Left bundle-branch block. 3. Diastolic dysfunction. EF 50%. 4. Hyperkalemia. Got Kayexalate and on HD by Dr. Severino. 5. Diabetic nephropathy. 6. Renal failure. BUN/Cr 81/3.8 S/P PermCath and dialysis 7. Hypothyroidism. 8. Iron-deficiency anemia. 9. Right pleural effusion. S/P 800cc Right thoracentesis 09/03/20 DW RN Subjective Subjective S/P Right chest PermCath and HD on 09/05, 09/06 and 09/08. No CP in SR in NAD. In isolation Objective Last 24 Hour Vital Signs Date Time Temp Pulse Resp B/P (MAP) Pulse Ox O2 Delivery O2 Flow Rate FiO2 09/12/20 08:00 97.0 58 20 159/84 (109) 100 09/12/20 08:00 58 09/12/20 04:00 97.6 63 20 97/55 (69) 96 09/12/20 04:00 65 09/12/20 00:00 62 09/12/20 00:00 97.2 51 20 100/60 (73) 99 09/11/20 21:00 Nasal Cannula 2.0 09/11/20 20:00 97.5 63 20 109/50 (69) 95 09/11/20 20:00 65 09/11/20 19:12 95 Nasal Cannula 4.0 36 09/11/20 19:11 62 18 95 Nasal Cannula 4.0 36 09/11/20 16:00 97.8 71 20 110/70 (83) 95 09/11/20 16:00 63 09/11/20 12:00 65 09/11/20 12:00 97.8 65 20 103/65 (78) 94 Intake and Output 09/11/20 09/12/20 19:00 07:00 Intake Total 590 ml 60 ml Balance 590 ml 60 ml Intake Oral 590 ml IV Total 60 ml # Voids 2 Laboratory Tests Test 09/11/20 17:27 09/11/20 19:39 09/12/20 06:10 09/12/20 06:42 POC Whole Blood Glucose Pending 164 MG/DL (74-106) H Pending White Blood Count 14.2 K/UL (4.8-10.8) H Red Blood Count 2.91 M/UL (4.20-5.40) L Hemoglobin 8.5 G/DL (12.0-16.0) L Hematocrit 28.3 % (37.0-47.0) L Mean Corpuscular Volume 97 FL (80-99) Mean Corpuscular Hemoglobin 29.3 PG (27.0-31.0) Mean Corpuscular Hemoglobin Concent 30.1 G/DL (32.0-36.0) L Red Cell Distribution Width 18.3 % (11.6-14.8) H Platelet Count 108 K/UL (150-450) L Mean Platelet Volume 7.7 FL (6.5-10.1) Neutrophils (%) (Auto) % (45.0-75.0) Lymphocytes (%) (Auto) % (20.0-45.0) Monocytes (%) (Auto) % (1.0-10.0) Eosinophils (%) (Auto) % (0.0-3.0) Basophils (%) (Auto) % (0.0-2.0) Differential Total Cells Counted 100 Neutrophils % (Manual) 90 % (45-75) H Lymphocytes % (Manual) 6 % (20-45) L Monocytes % (Manual) 4 % (1-10) Eosinophils % (Manual) 0 % (0-3) Basophils % (Manual) 0 % (0-2) Band Neutrophils 0 % (0-8) Platelet Estimate Decreased L Platelet Morphology Normal Anisocytosis 1+ Spherocytes 2+ Sodium Level 136 MMOL/L (136-145) Potassium Level 4.1 MMOL/L (3.5-5.1) Chloride Level 100 MMOL/L (98-107) Carbon Dioxide Level 26 MMOL/L (21-32) Anion Gap 11 mmol/L (5-15) Blood Urea Nitrogen 55 mg/dL (7-18) H Creatinine 4.8 MG/DL (0.55-1.30) H Estimat Glomerular Filtration Rate 9.0 mL/min (>60) Glucose Level 153 MG/DL (74-106) H Calcium Level 8.1 MG/DL (8.5-10.1) L Test 09/12/20 11:23 POC Whole Blood Glucose 132 MG/DL (74-106) H Microbiology Date/Time Source Procedure Growth Status 09/10/20 15:20 Nasopharynx SARS-CoV-2 RdRp Gene Assay - Final Complete 09/09/20 14:58 Urine,Clean Catch Urine Culture - Final Enterococcus Faecium - Vre Complete Objective HEAD AND NECK: No JVD. LUNGS: Coarse rhonchi, bibasilar rales.Right chest PermCath CARDIOVASCULAR: Regular S1 and S2 with no gallop. ABDOMEN: Soft. EXTREMITIES: Bilateral 2+ pitting edema and bandage on both legs Sina Paulson MD Sep 12, 2020 11:49
[2020-09-12 12:00] VITALS: BP 159/86
--- NOTE | 2020-09-12 13:19 | Nephrology Progress Note ---
Assessment/Plan Problem List: (1) Renal failure (ARF), acute on chronic (2) Hyperkalemia (3) Hypothyroidism (4) Acute on chronic diastolic (congestive) heart failure (5) Diabetic nephropathy (6) Pneumonia Assessment: Leukocytosis, abnormal chest x-ray (7) Anemia Assessment 1) Renal failure (ARF), acute on chronic (2) Diabetes mellitus (3) Hypoglycemia (4) Hyperkalemia (5) Diabetic nephropathy (6) H/o Pleural effusion (7) Morbid obesity (8) Low Iron Anemia (9) HypoThyroidism Plan September 12: Patient due for dialysis and ultrafiltration today. Labs reviewed. Medication list reviewed. Continue per consultants. September 11: Patient dialyzed yesterday. Labs reviewed. Patient is now COVID- 19 test positive. On isolation. Will dialyze again tomorrow. Continue per consultants. September 10: Patient due for dialysis and ultrafiltration today. Labs reviewed. And medication list reviewed. September 09: Patient was dialyzed yesterday. Due for dialysis and ultrafiltration tomorrow. Will start theophylline for although lumbar diet and also improvement of the heart rate. Recheck TSH in a.m. Continue as is. DC Chan catheter. September 08: Patient due for dialysis and ultrafiltration today. Labs reviewed. PhosLo given. Continue as is. September 07: Patient was dialyzed 2 days in a row. Ultra filtrated 3 L a day. Patient continues to be edematous however much less. Will dialyze again tomorrow with ultrafiltration. Will monitor renal parameters. September 06: Patient was dialyzed yesterday. Ultrafiltration was done. Patient remains edematous. Will do another dialysis and aim 3 L fluid removal as tolerates. Discontinue IV Lasix and oral hydralazine. Will adjust blood pressure medication as needed. Discussed with RN, antibiotics intravenously if possible should be changed to oral since there is no IV line available. 1 dose of Venofer 200 mg ordered to be given during dialysis. Subcutaneous Epogen ordered for anemia. September 05: New 24-hour urine suggestive of creatinine clearance of 3. Patient due for insertion of dialysis catheter. Hemodialysis and ultrafiltration after insertion of catheter. September 04: New 24-hour urine test is in process. Discussed with RN. Patient was short of breath overnight. ABG ordered. 1 dose of Zaroxolyn ordered. Patient has fluid overload, and need ultrafiltration. Blood cultures negative. Leukocytosis resolved. Will order placement of permacath and dialysis and ultrafiltration. September 03: The 24-hour urine results appears to be an error in view of total volume compared to intake and output records. Today's labs reviewed. Serum creatinine higher. Talk to the nursing charge of the floor and will order another 24-hour urine collection. Meanwhile continue per ID treatment for UTI and leukocytosis. Dexamethasone on the medication list was questioned. Patient may require dialysis if continues to have worsening renal parameters. September 02: Consent for dialysis catheter is taken. Catheter placement deferred due to leukocytosis. Surveillance blood culture ordered. Urine culture ordered. Blood pressure medication adjusted. 24-hour urine for creatinine clearance and total protein pending. Previously: Chan Cath 24 H CrCl and total protein ordered Off IV fluids, on IV Lasix Adjust BP meds Previous 2D echocardiogram ejection fraction is reported to 50% Previous Kidney ultrasound noted. Current kidney ultrasound results below Anemia work-up As needed Kayexalate for high potassium Keep blood pressure and blood sugar in check Monitor renal parameters Requires HD treatment [facility] IMPRESSION: 1. Ascites. 2. Bilateral pleural effusions. 3. Complex right renal cysts of uncertain etiology. This complex cyst is unchanged from the study of 01/12/2020. 4. Mildly atrophic right kidney. 5. Magnetic resonance imaging of the abdomen with gadolinium administration is advised for further evaluation of complex right renal cyst. Subjective ROS Limited/Unobtainable: No Constitutional: Reports: malaise Objective Objective Last 24 Hour Vital Signs Date Time Temp Pulse Resp B/P (MAP) Pulse Ox O2 Delivery O2 Flow Rate FiO2 09/12/20 08:00 97.0 58 20 159/84 (109) 100 09/12/20 08:00 58 09/12/20 04:00 97.6 63 20 97/55 (69) 96 09/12/20 04:00 65 09/12/20 00:00 62 09/12/20 00:00 97.2 51 20 100/60 (73) 99 09/11/20 21:00 Nasal Cannula 2.0 09/11/20 20:00 97.5 63 20 109/50 (69) 95 09/11/20 20:00 65 09/11/20 19:12 95 Nasal Cannula 4.0 36 09/11/20 19:11 62 18 95 Nasal Cannula 4.0 36 09/11/20 16:00 97.8 71 20 110/70 (83) 95 09/11/20 16:00 63 Intake and Output 09/11/20 09/12/20 19:00 07:00 Intake Total 590 ml 60 ml Balance 590 ml 60 ml Intake Oral 590 ml IV Total 60 ml # Voids 2 Current Medications Medications (Trade) Dose Ordered Sig/Braeden Route PRN Reason Start Time Stop Time Status Last Admin Dose Admin Acetaminophen (Tylenol) 650 mg Q4H PRN ORAL FEVER 08/30/20 23:45 09/29/20 23:44 Acetaminophen/ Hydrocodone Bitart ([place]inner 5/325) 1 tab Q6H PRN ORAL Severe Pain (Pain Scale 7-10) 09/09/20 12:15 09/16/20 12:14 09/12/20 16:41 Allopurinol (Zyloprim) 100 mg DAILY ORAL 09/09/20 09:00 10/09/20 08:59 09/12/20 09:27 Calcium Acetate (Phoslo) 667 mg TIAC ORAL 09/08/20 11:30 12/07/20 11:29 09/12/20 16:35 Chlorhexidine Gluconate (Josiane-Hex 2%) 1 applic DAILY@1999 TOPIC 09/06/20 20:00 12/05/20 19:59 09/11/20 20:57 Dexamethasone (Decadron) 6 mg DAILY ORAL 09/10/20 21:00 09/19/20 09:01 09/12/20 09:27 Dextrose (Dextrose 50%) 25 ml Q30M PRN IV Hypoglycemia 08/30/20 23:45 11/28/20 23:44 Dextrose (Dextrose 50%) 50 ml Q30M PRN IV Hypoglycemia 08/30/20 23:45 11/28/20 23:44 Epoetin Shlomo (Epoetin Shlomo(ESRD on dialysis)) 10,000 unit TUE-WED-TUE SUBQ 09/08/20 21:00 12/07/20 20:59 09/10/20 21:28 Folic Acid (Folate) 3 mg DAILY ORAL 09/02/20 09:00 10/02/20 08:59 09/12/20 11:14 Heparin Sodium (Porcine) (Heparin 5000 units/ml) 5,000 units EVERY 12 HOURS SUBQ 08/31/20 09:00 10/15/20 08:59 09/06/20 00:16 Indomethacin (Indocin) 25 mg THREE TIMES A DAY ORAL 09/04/20 13:00 10/04/20 12:59 09/12/20 13:32 Insulin Aspart (NovoLOG) BEFORE MEALS AND HS SUBQ 08/31/20 06:30 11/29/20 06:29 09/12/20 16:46 Iron Sucrose 100 mg/Sodium Chloride 60 ml @ 240 mls/hr BEDTIME IVPB 09/08/20 21:00 09/12/20 21:14 09/11/20 20:58 Levothyroxine Sodium (Synthroid) 100 mcg DAILY@0630 ORAL 09/02/20 06:30 10/02/20 06:29 09/12/20 07:14 Metoclopramide HCl (Reglan) 5 mg THREE TIMES A DAY ORAL 08/31/20 13:00 09/30/20 12:59 09/12/20 13:32 Ondansetron HCl (Zofran) 4 mg Q6H PRN IVP Nausea & Vomiting 08/30/20 23:45 09/29/20 23:44 Pantoprazole (Protonix) 40 mg EVERY 12 HOURS ORAL 08/31/20 21:00 09/30/20 20:59 09/12/20 09:27 Polyethylene Glycol (Miralax) 17 gm DAILYPRN PRN ORAL Constipation 08/30/20 23:45 09/29/20 23:44 Promethazine HCl/ Codeine (Phenergan with Codeine) 5 ml Q6H PRN ORAL cough 08/30/20 23:45 09/29/20 23:44 Theophylline (Theophylline) 80 mg Q8HR ORAL 09/09/20 14:00 12/08/20 13:59 09/12/20 13:32 Laboratory Tests 09/11/20 17:27: POC Whole Blood Glucose [Pending] 09/11/20 19:39: POC Whole Blood Glucose 164H 09/12/20 06:10: White Blood Count 14.2H, Red Blood Count 2.91L, Hemoglobin 8.5L, Hematocrit 28.3L, Mean Corpuscular Volume 97, Mean Corpuscular Hemoglobin 29.3, Mean Corpuscular Hemoglobin Concent 30.1L, Red Cell Distribution Width 18.3H, Platelet Count 108L, Mean Platelet Volume 7.7, Neutrophils (%) (Auto) , Lymphocytes (%) (Auto) , Monocytes (%) (Auto) , Eosinophils (%) (Auto) , Basophils (%) (Auto) , Differential Total Cells Counted 100, Neutrophils % (Manual) 90H, Lymphocytes % (Manual) 6L, Monocytes % (Manual) 4, Eosinophils % (Manual) 0, Basophils % (Manual) 0, Band Neutrophils 0, Platelet Estimate DecreasedL, Platelet Morphology Normal, Anisocytosis 1+, Spherocytes 2+, Sodium Level 136, Potassium Level 4.1, Chloride Level 100, Carbon Dioxide Level 26, Anion Gap 11, Blood Urea Nitrogen 55H, Creatinine 4.8H, Estimat Glomerular Filtration Rate 9.0, Glucose Level 153H, Calcium Level 8.1L 09/12/20 06:42: POC Whole Blood Glucose [Pending] 09/12/20 11:23: POC Whole Blood Glucose 132H Height (Feet): 5 Height (Inches): 10.00 Weight (Pounds): 218 General Appearance: no apparent distress Cardiovascular: normal rate Respiratory/Chest: decreased breath sounds Abdomen: soft Jay Severino MD Sep 12, 2020 13:19
[2020-09-12 16:00] VITALS: BP 150/67
--- NOTE | 2020-09-12 16:17 | Surgery Progress Note ---
Surgery Progress Note Subjective Additional Comments no n/v labs noted mirco reviewed Objective Last 24 Hour Vital Signs Date Time Temp Pulse Resp B/P (MAP) Pulse Ox O2 Delivery O2 Flow Rate FiO2 09/12/20 12:00 60 09/12/20 08:00 97.0 58 20 159/84 (109) 100 09/12/20 08:00 58 09/12/20 04:00 97.6 63 20 97/55 (69) 96 09/12/20 04:00 65 09/12/20 00:00 62 09/12/20 00:00 97.2 51 20 100/60 (73) 99 09/11/20 21:00 Nasal Cannula 2.0 09/11/20 20:00 97.5 63 20 109/50 (69) 95 09/11/20 20:00 65 09/11/20 19:12 95 Nasal Cannula 4.0 36 09/11/20 19:11 62 18 95 Nasal Cannula 4.0 36 I&O Intake and Output 09/11/20 09/12/20 19:00 07:00 Intake Total 590 ml 60 ml Balance 590 ml 60 ml Intake Oral 590 ml IV Total 60 ml # Voids 2 Dressing: saturated Cardiovascular: RSR Respiratory: decreased breath sounds Abdomen: non-tender, present bowel sounds Extremities: no edema, no tenderness, no cyanosis Laboratory Tests Test 09/11/20 17:27 09/11/20 19:39 09/12/20 06:10 09/12/20 06:42 POC Whole Blood Glucose Pending 164 MG/DL (74-106) H Pending White Blood Count 14.2 K/UL (4.8-10.8) H Red Blood Count 2.91 M/UL (4.20-5.40) L Hemoglobin 8.5 G/DL (12.0-16.0) L Hematocrit 28.3 % (37.0-47.0) L Mean Corpuscular Volume 97 FL (80-99) Mean Corpuscular Hemoglobin 29.3 PG (27.0-31.0) Mean Corpuscular Hemoglobin Concent 30.1 G/DL (32.0-36.0) L Red Cell Distribution Width 18.3 % (11.6-14.8) H Platelet Count 108 K/UL (150-450) L Mean Platelet Volume 7.7 FL (6.5-10.1) Neutrophils (%) (Auto) % (45.0-75.0) Lymphocytes (%) (Auto) % (20.0-45.0) Monocytes (%) (Auto) % (1.0-10.0) Eosinophils (%) (Auto) % (0.0-3.0) Basophils (%) (Auto) % (0.0-2.0) Differential Total Cells Counted 100 Neutrophils % (Manual) 90 % (45-75) H Lymphocytes % (Manual) 6 % (20-45) L Monocytes % (Manual) 4 % (1-10) Eosinophils % (Manual) 0 % (0-3) Basophils % (Manual) 0 % (0-2) Band Neutrophils 0 % (0-8) Platelet Estimate Decreased L Platelet Morphology Normal Anisocytosis 1+ Spherocytes 2+ Sodium Level 136 MMOL/L (136-145) Potassium Level 4.1 MMOL/L (3.5-5.1) Chloride Level 100 MMOL/L (98-107) Carbon Dioxide Level 26 MMOL/L (21-32) Anion Gap 11 mmol/L (5-15) Blood Urea Nitrogen 55 mg/dL (7-18) H Creatinine 4.8 MG/DL (0.55-1.30) H Estimat Glomerular Filtration Rate 9.0 mL/min (>60) Glucose Level 153 MG/DL (74-106) H Calcium Level 8.1 MG/DL (8.5-10.1) L Test 09/12/20 11:23 POC Whole Blood Glucose 132 MG/DL (74-106) H Plan Problems: (1) Acute on chronic diastolic (congestive) heart failure (2) Anemia (3) Acute respiratory failure Assessment & Plan: Large right pleural effusion persists, unchanged. Bilateral interstitial and airspace edema, cardiomegaly persists, probably unchanged allowing for differences in technique and inspiration (4) ACS (acute coronary syndrome) (5) History of hypertension (6) Moderate pulmonary arterial systolic hypertension (7) Left bundle branch block (LBBB) (8) Diabetes mellitus (9) Diabetic nephropathy (10) Renal failure (ARF), acute on chronic (11) Hyperkalemia (12) Bacteremia (13) CAD (coronary artery disease) (14) Hypothyroidism (15) Cardiac left ventricular ejection fraction greater than 40 percent (16) Grade I diastolic dysfunction (17) UTI (urinary tract infection) (18) Ulcers of both lower legs (19) Open wounds involving multiple regions of lower extremity Assessment & Plan: Patient identified admission having bilateral lower extremity edema open wounds as well as necrotic ulcerations. Patient states she has had this for some time now and acutely worsening as well. Bilateral lower leg wounds do to blisters from edema. Right medial lower leg wound 2.1x4.2x0.2 dark brown scab . Right anterior lower leg wound 5.6x5.3x0.2 pink wound bed. Right distal anterior lower leg 4.0x6.0x0.2 pink wound bed . Large amount serous drainage right leg wounds , Xeroform ,gauze,abd pad and kerlix applied change every shift. Left lower leg wound 3.7x5.0x0.3 100% green slough large amount serous drainage noted with small blisters ifeoma wound, Thera Honey, gauze,abd pad and kerlix applied, change every shift. Local wound care plan initiate Nutritional optimization Turn every 2 hours Elevate extremities Thank you will follow recommendations Right deep veins: Unremarkable. No DVT in the right common femoral, femoral, proximal deep femoral or popliteal veins. The veins demonstrate normal color flow, are normally compressible, with normal phasic flow and/or augmentation response. Right superficial veins: Unremarkable. No thrombus in the visualized right great saphenous vein. Left deep veins: Unremarkable. No DVT in the left common femoral, femoral, proximal deep femoral or popliteal veins. The veins demonstrate normal color flow, are normally compressible, with normal phasic flow and/or augmentation response. Left superficial veins: Unremarkable. No thrombus in the visualized left great saphenous vein. Soft tissues: No acute findings. No popliteal cyst. IMPRESSION: Normal bilateral lower extremity duplex venous ultrasound. DAILY ESTIMATED NEEDS: Needs based on ARF, now HD 65.7kg abw 25-30 kcals/kg [id number] total kcals 1.25-1.8 g protein/kg 82-118 g total protein Fluid per MD, HD pending NUTRITION DIAGNOSIS: Increased pro needs r/t renal dysfunction as evidenced by pt w/ ARF, w/ now pending HD, K on adm (5.8), elev BUN (81), elev Creat (3.8), elev phos and mg. CURRENT DIET:Renal/ CCHO MED PO DIET RECOMMENDATIONS: Renal / CCHO LOW diet + high pro snacks in b/w meals ADDITIONAL RECOMMENDATIONS: 1) Maintain calibrated bed scale wts 2) High pro snacks in b/w meals 3) Rec WC eval-> add nephrovite 1 tab daily Vit C per nephro (20) Pneumonia (21) Gout (22) 2019 novel coronavirus disease (COVID-19) Assessment & Plan: +++ during hospitalization on tx isolation Omar Tellez Sep 12, 2020 16:17
[2020-09-12] MEDS: HYDROcodone/Acetamin 5/325 tab ORAL PRN (16:41)
--- NOTE | 2020-09-12 17:09 | Cardiology Report ---
APPROVED REPORT EKG Measurement Heart [id number] <Conclusion> Normal sinus rhythm Low voltage QRS Cannot rule out Anteroseptal infarct, age undetermined ST & T wave abnormality, consider lateral ischemia Prolonged QT Abnormal ECG
--- NOTE | 2020-09-12 19:20 | Diagnostic Imaging Report ---
EXAM: XR Chest, 1 View CLINICAL HISTORY: SOB TECHNIQUE: Frontal view of the chest. COMPARISON: 09/04/20 FINDINGS: Lungs: Persistent bilateral patchy airspace opacities could represent multifocal pneumonia, pulmonary edema, or inflammation. Low lung volumes with bronchovascular crowding. Pleural space: Right apical and lateral pleural thickening, similar to prior could represent pleural fluid or pleural thickening. No pneumothorax. Heart: Unchanged cardiomegaly with sternotomy and mediastinal operative findings. Mediastinum: Unremarkable. Bones/joints: See above. Tubes, lines and devices: New right IJ approach tunneled central venous dual-lumen catheter with tip in the superior cavoatrial region. IMPRESSION: 1. New right IJ approach tunneled central venous dual-lumen catheter with tip in the superior cavoatrial region. 2. Persistent bilateral patchy airspace opacities could represent multifocal pneumonia, pulmonary edema, or inflammation. 3. Unchanged cardiomegaly with sternotomy and mediastinal operative findings. 4. Right apical and lateral pleural thickening, similar to prior could represent pleural fluid or pleural thickening. 5. Low lung volumes with bronchovascular crowding.
[2020-09-12 20:00] VITALS: BP 94/54
--- NOTE | 2020-09-12 20:06 | Diagnostic Imaging Report ---
EXAM: XR Right Knee, 3 Views CLINICAL HISTORY: PAIN TECHNIQUE: Three views of the right knee. COMPARISON: No relevant prior studies available. FINDINGS: Bones/joints: Possible tiny knee joint effusion. Superior and inferior patellar pole tiny enthesophytes. Osteopenia. No acute fracture. No dislocation. Soft tissues: Soft tissue edema. IMPRESSION: 1. No acute abnormality definitively identified to account for patient presentation. 2. Possible tiny knee joint effusion. 3. Superior and inferior patellar pole tiny enthesophytes. 4. Osteopenia. 5. Soft tissue edema.
[2020-09-12] MEDS: Dyna-Hex 2% Top Sol 2oz TOPIC SCH (21:49)
[2020-09-12] MEDS: Epoetin Alfa-EPBX(ESRD on dialysis)10,000 unit/ml vial SUBQ SCH (21:49)
[2020-09-12] MEDS: Iron Sucrose 100 MG in NS 55 ML IVPB SCH (21:49)
[2020-09-13] VITALS: BP 96/51
[2020-09-13 04:00] VITALS: BP 98/56
[2020-09-13] MEDS: NovoLOG Insulin Flexpen SUBQ SCH ×4 (05:46→21:51)
[2020-09-13] MEDS: Theophylline 80mg/15ml ORAL SCH ×2 (06:21→17:12)
[2020-09-13 06:46] LABS: HEMATOCRIT 28.8 % (37.0-47.0); HEMOGLOBIN 8.5 G/DL (12.0-16.0); MEAN CORPUSCULAR VOLUME 100 FL (80-99); PLATELET COUNT 88 K/UL (150-450); RED BLOOD COUNT 2.89 M/UL (4.20-5.40); RED CELL DISTRIBUTION WIDTH 20.1 % (11.6-14.8); WHITE BLOOD COUNT 14.3 K/UL (4.8-10.8)
[2020-09-13 07:12] LABS: PHOSPHORUS 4.9 MG/DL (2.5-4.9)
[2020-09-13 07:18] LABS: ALBUMIN 2.9 G/DL (3.4-5.0); ALBUMIN/GLOBULIN RATIO 0.7 (1.0-2.7); BILIRUBIN,TOTAL 0.6 MG/DL (0.2-1.0); CALCIUM 8.3 MG/DL (8.5-10.1); CREATININE 4.4 MG/DL (0.55-1.30)
--- NOTE | 2020-09-13 07:59 | Infectious Diseases Prog Note ---
Assessment/Plan 70yo F with: COVID pna, ?from visiting family vs hospital acquired vs very early disease on admission, waiting confirmatory testing 08/30 Rapid COVID neg 09/10 Rapid COVID neg 09/10 Rapid COVID PCR positive 09/10 COVID PCR p 09/11 CXR: 1. New right IJ approach tunneled central venous dual-lumen c atheter with tip in the superior cavoatrial region. 2. Persistent bilateral patchy airspace opacities could represent multifocal pneumonia, pulmonary edema, or inflammation. 3. Unchanged cardiomegaly with sternotomy and mediastinal o perative findings. 4. Right apical and lateral pleural thickening, similar to prior could represent pleural fluid or pleural thickening. 5. Low lung volumes with bronchovascular crowding. Severe Sepsis Pneumonia Acute hypoxic resp failure- on 2L NC R pleural effusion, transudate -09/03 SP Thoracentesis: Successful ultrasound-guided thoracentesis, yielding 680 milliliters of clear yellow fluid; cx NTD -fluid prot 1.4, glucose 198 -09/01 Chest US: Positive for right pleural effusion Incidental finding of ascites, also previously reporte -08/30 CXR: There is again patchy ill-defined airspace opacities at the right greater than left base with some consolidated appearance again seen on the right. There is now patchy ill-defined opacity at the right upper lung. A small right pleural effusion is suggested. The patient is rotated to the right. Status post median sternotomy again noted. -08/30 & 8 rapid covid PCR neg x2 -08/30 Bcx NTD R/o UTI 09/09 UA 15-20 WBC, UCx NTD, UCx +80-90k VRE (S-linezolid), m/l colonizer Afebrile Leukocytosis, SP -09/02 Bcx NTD -08/31 u/a no pyuria R arm and R leg cellulitis; improving Recent hx of COVID19- pt clarified initial diagnosis was 2 months ago and not 08/25 as per documentation on EMR. VENANCIO on CKD -Renal US: Ascites. Bilateral pleural effusions. Complex right renal cysts of uncertain etiology. This complex cyst is unchanged from the study of 01/12/2020. Mildly atrophic right kidney.Magnetic resonance imaging of the abdomen with gadolinium administration is advised for further evaluation of complex right renal cyst. 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 Will continue to follow along with you. Subjective Allergies: Coded Allergies: No Known Allergies (Unverified , 10/10/19) AF NAD on 2L NC WBC stable at 14 on steroids Objective Last 24 Hour Vital Signs Date Time Temp Pulse Resp B/P (MAP) Pulse Ox O2 Delivery O2 Flow Rate FiO2 09/13/20 04:00 64 09/13/20 04:00 97.7 114 20 98/56 (70) 98 09/13/20 00:00 97.5 102 18 96/51 (66) 97 09/13/20 00:00 18 09/12/20 21:00 Nasal Cannula 2.0 09/12/20 20:00 62 09/12/20 20:00 98.1 61 17 94/54 (67) 97 09/12/20 19:20 61 20 97 Nasal Cannula 2.0 28 09/12/20 19:20 97 Nasal Cannula 4.0 36 09/12/20 17:11 97.7 09/12/20 16:00 97.7 60 20 150/67 (94) 100 09/12/20 16:00 66 09/12/20 12:00 60 09/12/20 12:00 98.4 60 20 159/86 (110) 100 09/12/20 09:00 Nasal Cannula 2.0 09/12/20 08:00 97.0 58 20 159/84 (109) 100 09/12/20 08:00 58 Height (Feet): 5 Height (Inches): 10.00 Weight (Pounds): 218 Gen: NAD in bed HEENT: NCAT, EOMI, PERRL Pulm: BL chest rise on NC Abd: Soft, NTND Ext: No c/c/e Neuro: Awake, interactive, pleasant Microbiology Date/Time Source Procedure Growth Status 09/10/20 15:20 Nasopharynx SARS-CoV-2 RdRp Gene Assay - Final Complete Laboratory Tests Test 09/12/20 11:23 09/12/20 22:03 09/13/20 06:10 POC Whole Blood Glucose 132 MG/DL (74-106) H Pending White Blood Count 14.3 K/UL (4.8-10.8) H Red Blood Count 2.89 M/UL (4.20-5.40) L Hemoglobin 8.5 G/DL (12.0-16.0) L Hematocrit 28.8 % (37.0-47.0) L Mean Corpuscular Volume 100 FL (80-99) H Mean Corpuscular Hemoglobin 29.5 PG (27.0-31.0) Mean Corpuscular Hemoglobin Concent 29.6 G/DL (32.0-36.0) L Red Cell Distribution Width 20.1 % (11.6-14.8) H Platelet Count 88 K/UL (150-450) L Mean Platelet Volume 8.6 FL (6.5-10.1) Neutrophils (%) (Auto) % (45.0-75.0) Lymphocytes (%) (Auto) % (20.0-45.0) Monocytes (%) (Auto) % (1.0-10.0) Eosinophils (%) (Auto) % (0.0-3.0) Basophils (%) (Auto) % (0.0-2.0) Neutrophils % (Manual) Pending Lymphocytes % (Manual) Pending Platelet Estimate Pending Platelet Morphology Pending Erythrocyte Sedimentation Rate Pending Sodium Level 135 MMOL/L (136-145) L Potassium Level 4.0 MMOL/L (3.5-5.1) Chloride Level 99 MMOL/L (98-107) Carbon Dioxide Level 28 MMOL/L (21-32) Anion Gap 9 mmol/L (5-15) Blood Urea Nitrogen 50 mg/dL (7-18) H Creatinine 4.4 MG/DL (0.55-1.30) H Estimat Glomerular Filtration Rate 9.9 mL/min (>60) Glucose Level 191 MG/DL (74-106) H Uric Acid 3.6 MG/DL (2.6-7.2) Calcium Level 8.3 MG/DL (8.5-10.1) L Phosphorus Level 4.9 MG/DL (2.5-4.9) Magnesium Level 2.6 MG/DL (1.8-2.4) H Total Bilirubin 0.6 MG/DL (0.2-1.0) Aspartate Amino Transf (AST/SGOT) 17 U/L (15-37) Alanine Aminotransferase (ALT/SGPT) 10 U/L (12-78) L Alkaline Phosphatase 128 U/L (46-116) H C-Reactive Protein, Quantitative 6.1 mg/dL (0.00-0.90) H Pro-B-Type Natriuretic Peptide 47638 pg/mL (0-125) H Total Protein 6.9 G/DL (6.4-8.2) Albumin 2.9 G/DL (3.4-5.0) L Globulin 4.0 g/dL Albumin/Globulin Ratio 0.7 (1.0-2.7) L Current Medications Medications (Trade) Dose Ordered Sig/Braeden Route PRN Reason Start Time Stop Time Status Last Admin Dose Admin Acetaminophen (Tylenol) 650 mg Q4H PRN ORAL FEVER 08/30/20 23:45 09/29/20 23:44 Acetaminophen/ Hydrocodone Bitart ([place] 5/325) 1 tab Q6H PRN ORAL Severe Pain (Pain Scale 7-10) 09/09/20 12:15 09/16/20 12:14 09/12/20 16:41 Allopurinol (Zyloprim) 100 mg DAILY ORAL 09/09/20 09:00 10/09/20 08:59 09/12/20 09:27 Calcium Acetate (Phoslo) 667 mg TIAC ORAL 09/08/20 11:30 12/07/20 11:29 09/13/20 06:21 Chlorhexidine Gluconate (Josiane-Hex 2%) 1 applic DAILY@1999 TOPIC 09/06/20 20:00 12/05/20 19:59 09/12/20 21:49 Dexamethasone (Decadron) 6 mg DAILY ORAL 09/10/20 21:00 09/19/20 09:01 09/12/20 09:27 Dextrose (Dextrose 50%) 25 ml Q30M PRN IV Hypoglycemia 08/30/20 23:45 11/28/20 23:44 Dextrose (Dextrose 50%) 50 ml Q30M PRN IV Hypoglycemia 08/30/20 23:45 11/28/20 23:44 Epoetin Shlomo (Epoetin Shlomo(ESRD on dialysis)) 10,000 unit TUE-TUE-TUE SUBQ 09/08/20 21:00 12/07/20 20:59 09/12/20 21:49 Folic Acid (Folate) 3 mg DAILY ORAL 09/02/20 09:00 10/02/20 08:59 09/12/20 11:14 Heparin Sodium (Porcine) (Heparin 5000 units/ml) 5,000 units EVERY 12 HOURS SUBQ 08/31/20 09:00 10/15/20 08:59 09/06/20 00:16 Indomethacin (Indocin) 25 mg THREE TIMES A DAY ORAL 09/04/20 13:00 10/04/20 12:59 09/12/20 18:15 Insulin Aspart (NovoLOG) BEFORE MEALS AND HS SUBQ 08/31/20 06:30 11/29/20 06:29 09/12/20 21:00 Levothyroxine Sodium (Synthroid) 100 mcg DAILY@0630 ORAL 09/02/20 06:30 10/02/20 06:29 09/13/20 06:21 Metoclopramide HCl (Reglan) 5 mg THREE TIMES A DAY ORAL 08/31/20 13:00 09/30/20 12:59 09/12/20 18:15 Ondansetron HCl (Zofran) 4 mg Q6H PRN IVP Nausea & Vomiting 08/30/20 23:45 09/29/20 23:44 Pantoprazole (Protonix) 40 mg EVERY 12 HOURS ORAL 08/31/20 21:00 09/30/20 20:59 09/12/20 21:50 Polyethylene Glycol (Miralax) 17 gm DAILYPRN PRN ORAL Constipation 08/30/20 23:45 09/29/20 23:44 Promethazine HCl/ Codeine (Phenergan with Codeine) 5 ml Q6H PRN ORAL cough 08/30/20 23:45 09/29/20 23:44 Theophylline (Theophylline) 80 mg Q8HR ORAL 09/09/20 14:00 12/08/20 13:59 09/13/20 06:21 Nadia Calvin M.D. Sep 13, 2020 07:59
[2020-09-13 08:00] VITALS: BP 106/56
[2020-09-13] MEDS: Heparin 5000 units/ml inj SUBQ SCH ×2 (09:00→21:00)
--- NOTE | 2020-09-13 09:56 | General Progress Note ---
Subjective Constitutional: Reports: weakness Allergies: Coded Allergies: No Known Allergies (Unverified , 10/10/19) All Systems: reviewed and negative except above Subjective o2nc calm Objective Last 24 Hour Vital Signs Date Time Temp Pulse Resp B/P (MAP) Pulse Ox O2 Delivery O2 Flow Rate FiO2 09/13/20 04:00 64 09/13/20 04:00 97.7 114 20 98/56 (70) 98 09/13/20 00:00 97.5 102 18 96/51 (66) 97 09/13/20 00:00 18 09/12/20 21:00 Nasal Cannula 2.0 09/12/20 20:00 62 09/12/20 20:00 98.1 61 17 94/54 (67) 97 09/12/20 19:20 61 20 97 Nasal Cannula 2.0 28 09/12/20 19:20 97 Nasal Cannula 4.0 36 09/12/20 17:11 97.7 09/12/20 16:00 97.7 60 20 150/67 (94) 100 09/12/20 16:00 66 09/12/20 12:00 60 09/12/20 12:00 98.4 60 20 159/86 (110) 100 Intake and Output 09/12/20 09/13/20 19:00 07:00 Intake Total 200 ml 480 ml Balance 200 ml 480 ml Intake Oral 200 ml 480 ml # Voids 1 Laboratory Tests 09/12/20 11:23: POC Whole Blood Glucose 132H 09/12/20 22:03: POC Whole Blood Glucose [Pending] 09/13/20 06:10: White Blood Count 14.3H, Red Blood Count 2.89L, Hemoglobin 8.5L, Hematocrit 28.8L, Mean Corpuscular Volume 100H, Mean Corpuscular Hemoglobin 29.5, Mean Corpuscular Hemoglobin Concent 29.6L, Red Cell Distribution Width 20.1H, Platelet Count 88L, Mean Platelet Volume 8.6, Neutrophils (%) (Auto) , Lymphoc ytes (%) (Auto) , Monocytes (%) (Auto) , Eosinophils (%) (Auto) , Basophils (%) (Auto) , Neutrophils % (Manual) [Pending], Lymphocytes % (Manual) [Pending], Platelet Estimate [Pending], Platelet Morphology [Pending], Erythrocyte Sedimentation Rate 37H, Sodium Level 135L, Potassium Level 4.0, Chloride Level 99, Carbon Dioxide Level 28, Anion Gap 9, Blood Urea Nitrogen 50H, Creatinine 4.4H, Estimat Glomerular Filtration Rate 9.9, Glucose Level 191H, Uric Acid 3.6, Calcium Level 8.3L, Phosphorus Level 4.9, Magnesium Level 2.6H, Total Bilirubin 0.6, Aspartate Amino Transf (AST/SGOT) 17, Alanine Aminotransferase (ALT/SGPT) 10L, Alkaline Phosphatase 128H, C-Reactive Protein, Quantitative 6.1H, Pro-B-Type Natriuretic Peptide 25163R, Total Protein 6.9, Albumin 2.9L, Globulin 4.0, Albumin/Globulin Ratio 0.7L Height (Feet): 5 Height (Inches): 10.00 Weight (Pounds): 218 General Appearance: lethargic EENT: normal ENT inspection Neck: normal alignment Cardiovascular: normal peripheral pulses, normal rate, regular rhythm Respiratory/Chest: chest wall non-tender, lungs clear, normal breath sounds Abdomen: normal bowel sounds, non tender, soft Extremities: normal inspection Edema: no edema noted Arm (L), no edema noted Arm (R), no edema noted Leg (L), no edema noted Leg (R), no edema noted Pedal (L), no edema noted Pedal (R), no edema noted Generalized Neurologic: motor weakness Skin: normal pigmentation, warm/dry Assessment/Plan Problem List: (1) UTI (urinary tract infection) ICD Codes: N39.0 - Urinary tract infection, site not specified SNOMED: 88303278 (2) Acute respiratory failure ICD Codes: J96.00 - Acute respiratory failure, unspecified whether with hypoxia or hypercapnia SNOMED: 00264642 (3) History of hypertension ICD Codes: Z86.79 - Personal history of other diseases of the circulatory system SNOMED: 375614971 (4) Diabetes mellitus ICD Codes: E11.9 - Type 2 diabetes mellitus without complications SNOMED: 50305011 (5) Renal failure (ARF), acute on chronic ICD Codes: N17.9 - Acute kidney failure, unspecified; N18.9 - Chronic kidney disease, unspecified SNOMED: 234552452 (6) COVID-19 ICD Codes: U07.1 - COVID-19 SNOMED: 729985238 Status: unchanged Assessment/Plan: o2 pulm tx abx pt diet cbc bmp am dc plan snf Dyllan King DO Sep 13, 2020 09:56
[2020-09-13] MEDS: Indomethacin 25mg cap ORAL SCH (10:00)
[2020-09-13] MEDS: Allopurinol 100mg Tab ORAL SCH (10:00)
--- NOTE | 2020-09-13 10:02 | Nephrology Progress Note ---
Assessment/Plan Problem List: (1) Renal failure (ARF), acute on chronic (2) Hyperkalemia (3) Hypothyroidism (4) Acute on chronic diastolic (congestive) heart failure (5) Diabetic nephropathy (6) Pneumonia Assessment: Leukocytosis, abnormal chest x-ray (7) Anemia Assessment 1) Renal failure (ARF), acute on chronic (2) Diabetes mellitus (3) Hypoglycemia (4) Hyperkalemia (5) Diabetic nephropathy (6) H/o Pleural effusion (7) Morbid obesity (8) Low Iron Anemia (9) HypoThyroidism Plan September 13: Patient was dialyzed yesterday. Medication reviewed. Labs reviewed. White blood cells rising. Currently on dexamethasone IV for COVID-19 will dialyze again tomorrow September 12: Patient due for dialysis and ultrafiltration today. Labs reviewed. Medication list reviewed. Continue per consultants. September 11: Patient dialyzed yesterday. Labs reviewed. Patient is now COVID- 19 test positive. On isolation. Will dialyze again tomorrow. Continue per consultants. September 10: Patient due for dialysis and ultrafiltration today. Labs reviewed. And medication list reviewed. September 09: Patient was dialyzed yesterday. Due for dialysis and ultrafiltration tomorrow. Will start theophylline for although lumbar diet and also improvement of the heart rate. Recheck TSH in a.m. Continue as is. DC Chan catheter. September 08: Patient due for dialysis and ultrafiltration today. Labs reviewed. PhosLo given. Continue as is. September 07: Patient was dialyzed 2 days in a row. Ultra filtrated 3 L a day. Patient continues to be edematous however much less. Will dialyze again tomorrow with ultrafiltration. Will monitor renal parameters. September 06: Patient was dialyzed yesterday. Ultrafiltration was done. Patient remains edematous. Will do another dialysis and aim 3 L fluid removal as tolerates. Discontinue IV Lasix and oral hydralazine. Will adjust blood pressure medication as needed. Discussed with RN, antibiotics intravenously if possible should be changed to oral since there is no IV line available. 1 dose of Venofer 200 mg ordered to be given during dialysis. Subcutaneous Epogen ordered for anemia. September 05: New 24-hour urine suggestive of creatinine clearance of 3. Patient due for insertion of dialysis catheter. Hemodialysis and ultrafiltration after insertion of catheter. September 04: New 24-hour urine test is in process. Discussed with RN. Patient was short of breath overnight. ABG ordered. 1 dose of Zaroxolyn ordered. Patient has fluid overload, and need ultrafiltration. Blood cultures negative. Leukocytosis resolved. Will order placement of permacath and dialysis and ultrafiltration. September 03: The 24-hour urine results appears to be an error in view of total volume compared to intake and output records. Today's labs reviewed. Serum creatinine higher. Talk to the nursing charge of the floor and will order another 24-hour urine collection. Meanwhile continue per ID treatment for UTI and leukocytosis. Dexamethasone on the medication list was questioned. Patient may require dialysis if continues to have worsening renal parameters. September 02: Consent for dialysis catheter is taken. Catheter placement deferred due to leukocytosis. Surveillance blood culture ordered. Urine culture ordered. Blood pressure medication adjusted. 24-hour urine for creatinine clearance and total protein pending. Previously: Chan Cath 24 H CrCl and total protein ordered Off IV fluids, on IV Lasix Adjust BP meds Previous 2D echocardiogram ejection fraction is reported to 50% Previous Kidney ultrasound noted. Current kidney ultrasound results below Anemia work-up As needed Kayexalate for high potassium Keep blood pressure and blood sugar in check Monitor renal parameters Requires HD treatment SUDHIR KIDNEY IMPRESSION: 1. Ascites. 2. Bilateral pleural effusions. 3. Complex right renal cysts of uncertain etiology. This complex cyst is unchanged from the study of 01/12/2020. 4. Mildly atrophic right kidney. 5. Magnetic resonance imaging of the abdomen with gadolinium administration is advised for further evaluation of complex right renal cyst. Subjective ROS Limited/Unobtainable: No Constitutional: Reports: malaise Objective Objective Last 24 Hour Vital Signs Date Time Temp Pulse Resp B/P (MAP) Pulse Ox O2 Delivery O2 Flow Rate FiO2 09/13/20 04:00 64 09/13/20 04:00 97.7 114 20 98/56 (70) 98 09/13/20 00:00 97.5 102 18 96/51 (66) 97 09/13/20 00:00 18 09/12/20 21:00 Nasal Cannula 2.0 09/12/20 20:00 62 09/12/20 20:00 98.1 61 17 94/54 (67) 97 09/12/20 19:20 61 20 97 Nasal Cannula 2.0 28 09/12/20 19:20 97 Nasal Cannula 4.0 36 09/12/20 17:11 97.7 09/12/20 16:00 97.7 60 20 150/67 (94) 100 09/12/20 16:00 66 09/12/20 12:00 60 09/12/20 12:00 98.4 60 20 159/86 (110) 100 Intake and Output 09/12/20 09/13/20 19:00 07:00 Intake Total 200 ml 480 ml Balance 200 ml 480 ml Intake Oral 200 ml 480 ml # Voids 1 Current Medications Medications (Trade) Dose Ordered Sig/Bra[place]en Route PRN Reason Start Time Stop Time Status Last Admin Dose Admin Acetaminophen (Tylenol) 650 mg Q4H PRN ORAL FEVER 08/30/20 23:45 09/29/20 23:44 Acetaminophen/ Hydrocodone Bitart ([place] 5/325) 1 tab Q6H PRN ORAL Severe Pain (Pain Scale 7-10) 09/09/20 12:15 09/16/20 12:14 09/12/20 16:41 Allopurinol (Zyloprim) 100 mg DAILY ORAL 09/09/20 09:00 10/09/20 08:59 09/12/20 09:27 Calcium Acetate (Phoslo) 667 mg TIAC ORAL 09/08/20 11:30 12/07/20 11:29 09/13/20 06:21 Chlorhexidine Gluconate (Josiane-Hex 2%) 1 applic DAILY@1999 TOPIC 09/06/20 20:00 12/05/20 19:59 09/12/20 21:49 Dexamethasone (Decadron) 6 mg DAILY ORAL 09/10/20 21:00 09/19/20 09:01 09/12/20 09:27 Dextrose (Dextrose 50%) 25 ml Q30M PRN IV Hypoglycemia 08/30/20 23:45 11/28/20 23:44 Dextrose (Dextrose 50%) 50 ml Q30M PRN IV Hypoglycemia 08/30/20 23:45 11/28/20 23:44 Epoetin Shlomo (Epoetin Shlomo(ESRD on dialysis)) 10,000 unit MON-WED-TUE SUBQ 09/08/20 21:00 12/07/20 20:59 09/12/20 21:49 Folic Acid (Folate) 3 mg DAILY ORAL 09/02/20 09:00 10/02/20 08:59 09/12/20 11:14 Heparin Sodium (Porcine) (Heparin 5000 units/ml) 5,000 units EVERY 12 HOURS SUBQ 08/31/20 09:00 10/15/20 08:59 09/06/20 00:16 Indomethacin (Indocin) 25 mg THREE TIMES A DAY ORAL 09/04/20 13:00 10/04/20 12:59 09/12/20 18:15 Insulin Aspart (NovoLOG) BEFORE MEALS AND HS SUBQ 08/31/20 06:30 11/29/20 06:29 09/12/20 21:00 Levothyroxine Sodium (Synthroid) 100 mcg DAILY@0630 ORAL 09/02/20 06:30 10/02/20 06:29 09/13/20 06:21 Metoclopramide HCl (Reglan) 5 mg THREE TIMES A DAY ORAL 08/31/20 13:00 09/30/20 12:59 09/12/20 18:15 Ondansetron HCl (Zofran) 4 mg Q6H PRN IVP Nausea & Vomiting 08/30/20 23:45 09/29/20 23:44 Pantoprazole (Protonix) 40 mg EVERY 12 HOURS ORAL 08/31/20 21:00 09/30/20 20:59 09/12/20 21:50 Polyethylene Glycol (Miralax) 17 gm DAILYPRN PRN ORAL Constipation 08/30/20 23:45 09/29/20 23:44 Promethazine HCl/ Codeine (Phenergan with Codeine) 5 ml Q6H PRN ORAL cough 08/30/20 23:45 09/29/20 23:44 Theophylline (Theophylline) 80 mg Q8HR ORAL 09/09/20 14:00 12/08/20 13:59 09/13/20 06:21 Laboratory Tests 09/12/20 11:23: POC Whole Blood Glucose 132H 09/12/20 22:03: POC Whole Blood Glucose [Pending] 09/13/20 06:10: White Blood Count 14.3H, Red Blood Count 2.89L, Hemoglobin 8.5L, Hematocrit 28.8L, Mean Corpuscular Volume 100H, Mean Corpuscular Hemoglobin 29.5, Mean Corpuscular Hemoglobin Concent 29.6L, Red Cell Distribution Width 20.1H, Pl atelet Count 88L, Mean Platelet Volume 8.6, Neutrophils (%) (Auto) , Lymphocytes (%) (Auto) , Monocytes (%) (Auto) , Eosinophils (%) (Auto) , Basophils (%) (Auto) , Neutrophils % (Manual) [Pending], Lymphocytes % (Manual) [Pending], Platelet Estimate [Pending], Platelet Morphology [Pending], Erythrocyte Sedimentation Rate 37H, Sodium Level 135L, Potassium Level 4.0, Chloride Level 99, Carbon Dioxide Level 28, Anion Gap 9, Blood Urea Nitrogen 50H, Creatinine 4.4H, Estimat Glomerular Filtration Rate 9.9, Glucose Level 191H, Uric Acid 3.6, Calcium Level 8.3L, Phosphorus Level 4.9, Magnesium Level 2.6H, Total Bilirubin 0.6, Aspartate Amino Transf (AST/SGOT) 17, Alanine Aminotransferase (ALT/SGPT) 10L, Alkaline Phosphatase 128H, C-Reactive Protein, Quantitative 6.1H, Pro-B-Type Natriuretic Peptide 56363S, Total Protein 6.9, Albumin 2.9L, Globulin 4.0, Albumin/Globulin Ratio 0.7L Height (Feet): 5 Height (Inches): 10.00 Weight (Pounds): 218 General Appearance: no apparent distress Cardiovascular: other - Variable rate Respiratory/Chest: decreased breath sounds Abdomen: soft Jay Severino MD Sep 13, 2020 10:02
[2020-09-13 12:00] VITALS: BP 102/56
--- NOTE | 2020-09-13 12:02 | Pulmonology Progress Note ---
Subjective ROS Limited/Unobtainable: No Interval Events: no new events Allergies: Coded Allergies: No Known Allergies (Unverified , 10/10/19) Subjective + leukocytosis, no fevers now on HD on isolation 09/10 rapid COVID positive, started on steroids no signs of resp distress pulse ox stable on O2 via NC awaiting COVID 19 by PCR result denies CP, SOB, palpitations Objective Last 24 Hour Vital Signs Date Time Temp Pulse Resp B/P (MAP) Pulse Ox O2 Delivery O2 Flow Rate FiO2 09/13/20 04:00 64 09/13/20 04:00 97.7 114 20 98/56 (70) 98 09/13/20 00:00 97.5 102 18 96/51 (66) 97 09/13/20 00:00 18 09/12/20 21:00 Nasal Cannula 2.0 09/12/20 20:00 62 09/12/20 20:00 98.1 61 17 94/54 (67) 97 09/12/20 19:20 61 20 97 Nasal Cannula 2.0 28 09/12/20 19:20 97 Nasal Cannula 4.0 36 09/12/20 17:11 97.7 09/12/20 16:00 97.7 60 20 150/67 (94) 100 09/12/20 16:00 66 09/12/20 12:00 60 09/12/20 12:00 98.4 60 20 159/86 (110) 100 Intake and Output 09/12/20 09/13/20 19:00 07:00 Intake Total 200 ml 480 ml Balance 200 ml 480 ml Intake Oral 200 ml 480 ml # Voids 1 Objective General Appearance: no apparent distress, obese, awake and alert [place] speaking female Lines, tubes and drains: R chest HD catheter HEENT: normocephalic, atraumatic, anicteric, mucous membranes moist Neck: non-tender , short and thick, supple Respiratory/Chest: crackles/rales - bibasilar Cardiovascular/Chest: normal rate - tele with SR with RBBB Abdomen: normal bowel sounds, non tender , obese, soft Neurologic: no motor/sensory deficits, alert, oriented x 3, responsive, normal mood/affect Musculoskeletal: normal muscle bulk Microbiology Date/Time Source Procedure Growth Status 09/10/20 15:20 Nasopharynx SARS-CoV-2 RdRp Gene Assay - Final Complete Laboratory Tests 09/12/20 22:03: POC Whole Blood Glucose [Pending] 09/13/20 06:10: White Blood Count 14.3H, Red Blood Count 2.89L, Hemoglobin 8.5L, Hematocrit 28.8L, Mean Corpuscular Volume 100H, Mean Corpuscular Hemoglobin 29.5, Mean Corpuscular Hemoglobin Concent 29.6L, Red Cell Distribution Width 20.1H, Platelet Count 88L, Mean Platelet Volume 8.6, Neutrophils (%) (Auto) , Lymphocytes (%) (Auto) , Monocytes (%) (Auto) , Eosinophils (%) (Auto) , Basophils (%) (Auto) , Differential Total Cells Counted 100, Neutrophils % (Manual) 93H, Lymphocytes % (Manual) 6L, Monocytes % (Manual) 1, Eosinophils % (Manual) 0, Basophils % (Manual) 0, Band Neutrophils 0, Platelet Estimate DecreasedL, Platelet Morphology Normal, Hypochromasia 1+, Anisocytosis 3+, Macr ocytosis 1+, Erythrocyte Sedimentation Rate 37H, Sodium Level 135L, Potassium Level 4.0, Chloride Level 99, Carbon Dioxide Level 28, Anion Gap 9, Blood Urea Nitrogen 50H, Creatinine 4.4H, Estimat Glomerular Filtration Rate 9.9, Glucose Level 191H, Uric Acid 3.6, Calcium Level 8.3L, Phosphorus Level 4.9, Magnesium Level 2.6H, Total Bilirubin 0.6, Aspartate Amino Transf (AST/SGOT) 17, Alanine Aminotransferase (ALT/SGPT) 10L, Alkaline Phosphatase 128H, C-Reactive Protein, Quantitative 6.1H, Pro-B-Type Natriuretic Peptide 84083H, Total Protein 6.9, Albumin 2.9L, Globulin 4.0, Albumin/Globulin Ratio 0.7L Current Medications Medications (Trade) Dose Ordered Sig/Bra[place] Route PRN Reason Start Time Stop Time Status Last Admin Dose Admin Acetaminophen (Tylenol) 650 mg Q4H PRN ORAL FEVER 08/30/20 23:45 09/29/20 23:44 Acetaminophen/ Hydrocodone Bitart ([place] 5/325) 1 tab Q6H PRN ORAL Severe Pain (Pain Scale 7-10) 09/09/20 12:15 09/16/20 12:14 09/12/20 16:41 Calcium Acetate (Phoslo) 667 mg TIAC ORAL 09/08/20 11:30 12/07/20 11:29 09/13/20 06:21 Chlorhexidine Gluconate (Josiane-Hex 2%) 1 applic DAILY@1999 TOPIC 09/06/20 20:00 12/05/20 19:59 09/12/20 21:49 Dexamethasone (Decadron) 6 mg DAILY ORAL 09/10/20 21:00 09/19/20 09:01 09/13/20 10:00 Dextrose (Dextrose 50%) 25 ml Q30M PRN IV Hypoglycemia 08/30/20 23:45 11/28/20 23:44 Dextrose (Dextrose 50%) 50 ml Q30M PRN IV Hypoglycemia 08/30/20 23:45 11/28/20 23:44 Epoetin Shlomo (Epoetin Shlomo(ESRD on dialysis)) 10,000 unit TUE-TUE-TUE SUBQ 09/08/20 21:00 12/07/20 20:59 09/12/20 21:49 Folic Acid (Folate) 3 mg DAILY ORAL 09/02/20 09:00 10/02/20 08:59 09/13/20 10:00 Heparin Sodium (Porcine) (Heparin 5000 units/ml) 5,000 units EVERY 12 HOURS SUBQ 08/31/20 09:00 10/15/20 08:59 09/06/20 00:16 Insulin Aspart (NovoLOG) BEFORE MEALS AND HS SUBQ 08/31/20 06:30 11/29/20 06:29 09/12/20 21:00 Levothyroxine Sodium (Synthroid) 100 mcg DAILY@0630 ORAL 09/02/20 06:30 10/02/20 06:29 09/13/20 06:21 Metoclopramide HCl (Reglan) 5 mg THREE TIMES A DAY ORAL 08/31/20 13:00 09/30/20 12:59 09/13/20 10:00 Ondansetron HCl (Zofran) 4 mg Q6H PRN IVP Nausea & Vomiting 08/30/20 23:45 09/29/20 23:44 Pantoprazole (Protonix) 40 mg EVERY 12 HOURS ORAL 08/31/20 21:00 09/30/20 20:59 09/13/20 10:01 Polyethylene Glycol (Miralax) 17 gm DAILYPRN PRN ORAL Constipation 08/30/20 23:45 09/29/20 23:44 Promethazine HCl/ Codeine (Phenergan with Codeine) 5 ml Q6H PRN ORAL cough 08/30/20 23:45 09/29/20 23:44 Theophylline (Theophylline) 80 mg BID ORAL 09/13/20 18:00 12/08/20 13:59 Assessment/Plan Assessment/Plan ASSESSMENT Acute hypoxemic respiratory failure , requiring nonrebreather mask -resolved Congestive heart failure with diastolic dysfunction Mild cardiomyopathy, possible ischemic ( EF 50%, anteroseptal wall hypokinesis) Fluid overload 2 to acute renal failure Acute kidney injury -> requiring initiation of HD R pleural effusion, transudative ; s/p tap 09/03 -> 680 ml Severe sepsis COVID PNA Moderate MR and severe TR Moderate pulm HTN Hypertension Diabetes mellitus Anemia Folate deficiency PLAN OF CARE tele O2 titrate to keep sat > 92%, currently down to O2 via NC pulm toilet s/p tap 09/03 R pleural effusion -> 680 ml, fluid analysis noted, fluid cx NGT first two COVID NGT, rapid COVID 09/10 + , COVID 19 by PCR pending isolation on steroids fup with inflam markers not a candidate for remdesivvir, given ESRD CXR 09/12 with findings of possible multifocal PNA -> consider abx as per ID recs a/c dosed as DVT prophylaxis venous Duplex BLE NGT ECHO with EF 50%, anteroseptal wall hypokinesis, can't exclude ischemic CM moderate MR and mod pulm HTN renal US ascites, mildly atrophic R kidney creatinine worsened, HD catheter placed 09/05 and pt started on HD with close monitoring of volumes, renal parameters and lytes GI prophylaxis BP and BS management monitor HH with goal to keep Hgb > 7, s/p IV Venofer on EPO noted folic acid deficiency, started on folate X ray R knee - no acute findings, pain management supportive care case discussed and evaluated by supervising physician Jenna García NP Sep 13, 2020 12:02
--- NOTE | 2020-09-13 12:47 | Diagnostic Imaging Report ---
EXAM: XR Abdomen, 2 Views CLINICAL HISTORY: ABD DIST TECHNIQUE: Frontal view of the abdomen/pelvis with upright view of the abdomen. COMPARISON: None FINDINGS: Hardware: Distal portion of a right dual-lumen central venous catheter is seen terminating near the junction of the SVC and right atrium. Abdomen: Nonobstructive but nonspecific bowel gas pattern. Large amount of stool in the rectum is concerning for fecal impaction. No free air. Bones: Normal. Soft tissues: Normal. Lower chest: Right pleural effusion. Lower lung opacities. Median sternotomy changes. Mild enlargement of the cardiac silhouette. IMPRESSION: Nonobstructive but nonspecific bowel gas pattern. Large amount of stool in the rectum is concerning for fecal impaction.
--- NOTE | 2020-09-13 12:54 | Surgery Progress Note ---
Surgery Progress Note Subjective Additional Comments leukocytosis comfortable no n/v/f/c Objective Last 24 Hour Vital Signs Date Time Temp Pulse Resp B/P (MAP) Pulse Ox O2 Delivery O2 Flow Rate FiO2 09/13/20 08:00 73 09/13/20 08:00 97.5 70 20 106/56 (73) 95 09/13/20 04:00 64 09/13/20 04:00 97.7 114 20 98/56 (70) 98 09/13/20 00:00 97.5 102 18 96/51 (66) 97 09/13/20 00:00 18 09/12/20 21:00 Nasal Cannula 2.0 09/12/20 20:00 62 09/12/20 20:00 98.1 61 17 94/54 (67) 97 09/12/20 19:20 61 20 97 Nasal Cannula 2.0 28 09/12/20 19:20 97 Nasal Cannula 4.0 36 09/12/20 17:11 97.7 09/12/20 16:00 97.7 60 20 150/67 (94) 100 09/12/20 16:00 66 I&O Intake and Output 09/12/20 09/13/20 19:00 07:00 Intake Total 200 ml 480 ml Balance 200 ml 480 ml Intake Oral 200 ml 480 ml # Voids 1 Cardiovascular: RSR Respiratory: decreased breath sounds Abdomen: soft, non-tender, present bowel sounds Extremities: edema, no tenderness, no cyanosis Laboratory Tests Test 09/12/20 22:03 09/13/20 06:10 09/13/20 12:17 POC Whole Blood Glucose Pending 177 MG/DL (74-106) H White Blood Count 14.3 K/UL (4.8-10.8) H Red Blood Count 2.89 M/UL (4.20-5.40) L Hemoglobin 8.5 G/DL (12.0-16.0) L Hematocrit 28.8 % (37.0-47.0) L Mean Corpuscular Volume 100 FL (80-99) H Mean Corpuscular Hemoglobin 29.5 PG (27.0-31.0) Mean Corpuscular Hemoglobin Concent 29.6 G/DL (32.0-36.0) L Red Cell Distribution Width 20.1 % (11.6-14.8) H Platelet Count 88 K/UL (150-450) L Mean Platelet Volume 8.6 FL (6.5-10.1) Neutrophils (%) (Auto) % (45.0-75.0) Lymphocytes (%) (Auto) % (20.0-45.0) Monocytes (%) (Auto) % (1.0-10.0) Eosinophils (%) (Auto) % (0.0-3.0) Basophils (%) (Auto) % (0.0-2.0) Differential Total Cells Counted 100 Neutrophils % (Manual) 93 % (45-75) H Lymphocytes % (Manual) 6 % (20-45) L Monocytes % (Manual) 1 % (1-10) Eosinophils % (Manual) 0 % (0-3) Basophils % (Manual) 0 % (0-2) Band Neutrophils 0 % (0-8) Platelet Estimate Decreased L Platelet Morphology Normal Hypochromasia 1+ Anisocytosis 3+ Macrocytosis 1+ Erythrocyte Sedimentation Rate 37 MM/HR (0-30) H Sodium Level 135 MMOL/L (136-145) L Potassium Level 4.0 MMOL/L (3.5-5.1) Chloride Level 99 MMOL/L (98-107) Carbon Dioxide Level 28 MMOL/L (21-32) Anion Gap 9 mmol/L (5-15) Blood Urea Nitrogen 50 mg/dL (7-18) H Creatinine 4.4 MG/DL (0.55-1.30) H Estimat Glomerular Filtration Rate 9.9 mL/min (>60) Glucose Level 191 MG/DL (74-106) H Uric Acid 3.6 MG/DL (2.6-7.2) Calcium Level 8.3 MG/DL (8.5-10.1) L Phosphorus Level 4.9 MG/DL (2.5-4.9) Magnesium Level 2.6 MG/DL (1.8-2.4) H Total Bilirubin 0.6 MG/DL (0.2-1.0) Aspartate Amino Transf (AST/SGOT) 17 U/L (15-37) Alanine Aminotransferase (ALT/SGPT) 10 U/L (12-78) L Alkaline Phosphatase 128 U/L (46-116) H C-Reactive Protein, Quantitative 6.1 mg/dL (0.00-0.90) H Pro-B-Type Natriuretic Peptide 82934 pg/mL (0-125) H Total Protein 6.9 G/DL (6.4-8.2) Albumin 2.9 G/DL (3.4-5.0) L Globulin 4.0 g/dL Albumin/Globulin Ratio 0.7 (1.0-2.7) L Plan Problems: (1) Acute on chronic diastolic (congestive) heart failure (2) Anemia (3) Acute respiratory failure Assessment & Plan: Large right pleural effusion persists, unchanged. Bilateral interstitial and airspace edema, cardiomegaly persists, probably unchanged allowing for differences in technique and inspiration (4) ACS (acute coronary syndrome) (5) History of hypertension (6) Moderate pulmonary arterial systolic hypertension (7) Left bundle branch block (LBBB) (8) Diabetes mellitus (9) Diabetic nephropathy (10) Renal failure (ARF), acute on chronic (11) Hyperkalemia (12) Bacteremia (13) CAD (coronary artery disease) (14) Hypothyroidism (15) Cardiac left ventricular ejection fraction greater than 40 percent (16) Grade I diastolic dysfunction (17) UTI (urinary tract infection) (18) Ulcers of both lower legs (19) Open wounds involving multiple regions of lower extremity Assessment & Plan: Patient identified admission having bilateral lower extremity edema open wounds as well as necrotic ulcerations. Patient states she has had this for some time now and acutely worsening as well. Bilateral lower leg wounds do to blisters from edema. Right medial lower leg wound 2.1x4.2x0.2 dark brown scab . Right anterior lower leg wound 5.6x5.3x0.2 pink wound bed. Right distal anterior lower leg 4.0x6.0x0.2 pink wound bed . Large amount serous drainage right leg wounds , Xeroform ,gauze,abd pad and kerlix applied change every shift. Left lower leg wound 3.7x5.0x0.3 100% green slough large amount serous drainage noted with small blisters ifeoma wound, Thera Honey, gauze,abd pad and kerlix applied, change every shift. Local wound care plan initiate Nutritional optimization Turn every 2 hours Elevate extremities Thank you will follow recommendations Right deep veins: Unremarkable. No DVT in the right common femoral, femoral, proximal deep femoral or popliteal veins. The veins demonstrate normal color flow, are normally compressible, with normal phasic flow and/or augmentation response. Right superficial veins: Unremarkable. No thrombus in the visualized right great saphenous vein. Left deep veins: Unremarkable. No DVT in the left common femoral, femoral, proximal deep femoral or popliteal veins. The veins demonstrate normal color flow, are normally compressible, with normal phasic flow and/or augmentation response. Left superficial veins: Unremarkable. No thrombus in the visualized left great saphenous vein. Soft tissues: No acute findings. No popliteal cyst. IMPRESSION: Normal bilateral lower extremity duplex venous ultrasound. DAILY ESTIMATED NEEDS: Needs based on ARF, now HD 65.7kg abw 25-30 kcals/kg 1157-8072 total kcals 1.25-1.8 g protein/kg 82-118 g total protein Fluid per MD, HD pending NUTRITION DIAGNOSIS: Increased pro needs r/t renal dysfunction as evidenced by pt w/ ARF, w/ now pending HD, K on adm (5.8), elev BUN (81), elev Creat (3.8), elev phos and mg. CURRENT DIET:Renal/ CCHO MED PO DIET RECOMMENDATIONS: Renal / CCHO LOW diet + high pro snacks in b/w meals ADDITIONAL RECOMMENDATIONS: 1) Maintain calibrated bed scale wts 2) High pro snacks in b/w meals 3) Rec WC eval-> add nephrovite 1 tab daily Vit C per nephro (20) Pneumonia (21) Gout (22) 2019 novel coronavirus disease (COVID-19) Assessment & Plan: +++ during hospitalization on tx isolation Omar Tellez Sep 13, 2020 12:54
[2020-09-13] MEDS ORDERED: Fleet's Mineral Oil Enema RECTAL SCH (14:44)
[2020-09-13 16:00] VITALS: BP 120/54
[2020-09-13 20:00] VITALS: BP 128/63
[2020-09-13] MEDS: Dyna-Hex 2% Top Sol 2oz TOPIC SCH (20:55)
--- NOTE | 2020-09-13 21:01 | Cardiac Electrophysiology PN ---
Assessment/Plan Assessment/Plan 1. Volume overload due to renal failure as creatinine is 3.5. Echo showed EF of 50%. Off Amlodipine. On HD after PermCath placement 09/05. 2. Left bundle-branch block. 3. Diastolic dysfunction. EF 50%. 4. Hyperkalemia. Got Kayexalate and on HD by Dr. Severino. 5. Diabetic nephropathy. 6. Renal failure. BUN/Cr 81/3.8 S/P PermCath and dialysis 7. Hypothyroidism. 8. Iron-deficiency anemia. 9. Right pleural effusion. S/P 800cc Right thoracentesis 09/03/20 DW RN Subjective Subjective S/P Right chest PermCath and HD No CP in SR in NAD. In isolation as Covid was positive on 09/10 Objective Last 24 Hour Vital Signs Date Time Temp Pulse Resp B/P (MAP) Pulse Ox O2 Delivery O2 Flow Rate FiO2 09/13/20 16:00 97.5 70 20 120/54 (76) 95 09/13/20 16:00 70 09/13/20 12:00 69 09/13/20 12:00 97.3 71 20 102/56 (71) 94 09/13/20 09:00 Nasal Cannula 2.0 09/13/20 08:00 73 09/13/20 08:00 97.5 70 20 106/56 (73) 95 09/13/20 04:00 64 09/13/20 04:00 97.7 114 20 98/56 (70) 98 09/13/20 00:00 97.5 102 18 96/51 (66) 97 09/13/20 00:00 18 Intake and Output 09/12/20 09/13/20 19:00 07:00 Intake Total 200 ml 480 ml Balance 200 ml 480 ml Intake Oral 200 ml 480 ml # Voids 1 Laboratory Tests Test 09/12/20 22:03 09/13/20 06:10 09/13/20 12:17 09/13/20 17:15 POC Whole Blood Glucose Pending 177 MG/DL (74-106) H 223 MG/DL (74-106) H White Blood Count 14.3 K/UL (4.8-10.8) H Red Blood Count 2.89 M/UL (4.20-5.40) L Hemoglobin 8.5 G/DL (12.0-16.0) L Hematocrit 28.8 % (37.0-47.0) L Mean Corpuscular Volume 100 FL (80-99) H Mean Corpuscular Hemoglobin 29.5 PG (27.0-31.0) Mean Corpuscular Hemoglobin Concent 29.6 G/DL (32.0-36.0) L Red Cell Distribution Width 20.1 % (11.6-14.8) H Platelet Count 88 K/UL (150-450) L Mean Platelet Volume 8.6 FL (6.5-10.1) Neutrophils (%) (Auto) % (45.0-75.0) Lymphocytes (%) (Auto) % (20.0-45.0) Monocytes (%) (Auto) % (1.0-10.0) Eosinophils (%) (Auto) % (0.0-3.0) Basophils (%) (Auto) % (0.0-2.0) Differential Total Cells Counted 100 Neutrophils % (Manual) 93 % (45-75) H Lymphocytes % (Manual) 6 % (20-45) L Monocytes % (Manual) 1 % (1-10) Eosinophils % (Manual) 0 % (0-3) Basophils % (Manual) 0 % (0-2) Band Neutrophils 0 % (0-8) Platelet Estimate Decreased L Platelet Morphology Normal Hypochromasia 1+ Anisocytosis 3+ Macrocytosis 1+ Erythrocyte Sedimentation Rate 37 MM/HR (0-30) H Sodium Level 135 MMOL/L (136-145) L Potassium Level 4.0 MMOL/L (3.5-5.1) Chloride Level 99 MMOL/L (98-107) Carbon Dioxide Level 28 MMOL/L (21-32) Anion Gap 9 mmol/L (5-15) Blood Urea Nitrogen 50 mg/dL (7-18) H Creatinine 4.4 MG/DL (0.55-1.30) H Estimat Glomerular Filtration Rate 9.9 mL/min (>60) Glucose Level 191 MG/DL (74-106) H Uric Acid 3.6 MG/DL (2.6-7.2) Calcium Level 8.3 MG/DL (8.5-10.1) L Phosphorus Level 4.9 MG/DL (2.5-4.9) Magnesium Level 2.6 MG/DL (1.8-2.4) H Total Bilirubin 0.6 MG/DL (0.2-1.0) Aspartate Amino Transf (AST/SGOT) 17 U/L (15-37) Alanine Aminotransferase (ALT/SGPT) 10 U/L (12-78) L Alkaline Phosphatase 128 U/L (46-116) H C-Reactive Protein, Quantitative 6.1 mg/dL (0.00-0.90) H Pro-B-Type Natriuretic Peptide 39467 pg/mL (0-125) H Total Protein 6.9 G/DL (6.4-8.2) Albumin 2.9 G/DL (3.4-5.0) L Globulin 4.0 g/dL Albumin/Globulin Ratio 0.7 (1.0-2.7) L Objective HEAD AND NECK: No JVD. LUNGS: Coarse rhonchi, bibasilar rales.Right chest PermCath CARDIOVASCULAR: Regular S1 and S2 with no gallop. ABDOMEN: Soft. EXTREMITIES: Bilateral 2+ pitting edema and bandage on both legs Sina Paulson MD Sep 13, 2020 21:01
[2020-09-14] VITALS (7 sets, daily range): BP systolic 103–123; BP diastolic 53–68
[2020-09-14] MEDS: NovoLOG Insulin Flexpen SUBQ SCH ×4 (06:35→21:26)
[2020-09-14 07:01] LABS: HEMATOCRIT 29.3 % (37.0-47.0); HEMOGLOBIN 8.7 G/DL (12.0-16.0); MEAN CORPUSCULAR VOLUME 99 FL (80-99); PLATELET COUNT 120 K/UL (150-450); RED BLOOD COUNT 2.95 M/UL (4.20-5.40); RED CELL DISTRIBUTION WIDTH 20.1 % (11.6-14.8); WHITE BLOOD COUNT 15.2 K/UL (4.8-10.8)
[2020-09-14 07:07] LABS: CALCIUM 8.4 MG/DL (8.5-10.1); POTASSIUM 4.3 MMOL/L (3.5-5.1)
[2020-09-14] MEDS: Theophylline 80mg/15ml ORAL SCH ×2 (08:53→17:20)
[2020-09-14] MEDS: Heparin 5000 units/ml inj SUBQ SCH ×2 (08:54→21:25)
--- NOTE | 2020-09-14 10:02 | Hematology/Onc Progress Note ---
Assessment/Plan Assessment/Plan Assessment and Recs: # Anemia of chronic disease due to underlying chronic medical issues, multifactorial v Gi bleed --> Anemia workup has been ordered, rule out gi bleed --> No evidence of hemolysis is noted, peripheral smear has been reviewed. --> Hgb goal >7. Transfuse prn. --> EPOGEN AND IV IRON STARTED, CONTINUE --> Medications have been reviewed --> hgb 7.7-->8-->8.4-->8->8->8.7 --> egd w/ colo 01/15/20 Gastritis, status post biopsy. Total of 11 polyps removed, Internal hemorrhoids. # Thromocytopenia likely related to infection v reactive process, DOES HAVE CIRRHOSIS --> hep and hiv are neg --> imaging abd has been reviewed. noted liver disease, cirrhosis --> peripheral smear noted --> plt 75-->108-->120 # Coagulation defect, multifactorial usually related to poor PO intake versus medications, versus hepatitis v cirrhosis --> administer Vitamin K if patient is bleeding or FFP if the INR is >10 --> hold off on ffp unless active procedure/bleeding, first begin with vit K 10 --> mixing study as needed # Renal failure (ARF), acute on chronic --> ivf as per renal --> renal us reviewed --> improved --> HD as per renal # Hypoglycemia -> endo eval prn # Pleural effusion --> diuresis as needed --> monitor ivf --> HD # Hyperkalemia # Obesity # Dvt ppx heparin sq The timing of this note does not necessarily reflect the time of the patient was seen. Greatly appreciate consultation. Subjective HEENT: Denies: no symptoms, eye pain, blurred vision, tearing, double vision, ear pain, ear discharge, nose pain, nose congestion, throat pain, throat swelling, mouth pain, mouth swelling, other Cardiovascular: Denies: no symptoms, chest pain, edema, irregular heart rate, lightheadedness, palpitations, syncope, other Respiratory: Denies: no symptoms, cough, shortness of breath, SOB with excertion, SOB at rest, sputum, wheezing, other Gastrointestinal/Abdominal: Denies: no symptoms, abdomen distended, abdominal pain, black stools, tarry stools, blood in stool, constipated, diarrhea, difficulty swallowing, nausea, poor appetite, poor fluid intake, rectal bleeding, vomiting, other Genitourinary: Denies: no symptoms, burning, discharge, frequency, flank pain, hematuria, incontinence, pain, urgency, other Neurologic/Psychiatric: Denies: no symptoms, anxiety, depressed, emotional problems, headache, numbness, paresthesia, pre-existing deficit, seizure, tingling, tremors, weakness, other Endocrine: Denies: no symptoms, excessive sweating, flushing, intolerance to cold, intolerance to heat, increased hunger, increased thirst, increased urine, unexplained weight gain, unexplained weight loss, other Hematologic/Lymphatic: Denies: no symptoms, anemia, easy bleeding, easy bruising, adenopathy, other Allergies: Coded Allergies: No Known Allergies (Unverified , 10/10/19) Subjective 09/08 labs reviewed, hd as per renal, fluid overload improved, labs noted, with dropping plt 09/09 pending plt count this am, on abx, broad spectrum, no other events 09/10 labs pending, is comfortable, is on 3l nc, no bleeding 09/11 on 5L weaning, no night sweats, meds reviewed 09/12 labs noted, no bleeding, plts improved, meds reviewed 09/14 labs reviewed, meds noted, on hd as per renal permacath in place Objective Objective Current Medications Medications (Trade) Dose Ordered Sig/[place] Route PRN Reason Start Time Stop Time Status Last Admin Dose Admin Acetaminophen (Tylenol) 650 mg Q4H PRN ORAL FEVER 08/30/20 23:45 09/29/20 23:44 Acetaminophen/ Hydrocodone Bitart ([place] 5/325) 1 tab Q6H PRN ORAL Severe Pain (Pain Scale 7-10) 09/09/20 12:15 09/16/20 12:14 09/12/20 16:41 Calcium Acetate (Phoslo) 667 mg TIAC ORAL 09/08/20 11:30 12/07/20 11:29 09/14/20 06:10 Chlorhexidine Gluconate (Josiane-Hex 2%) 1 applic DAILY@1999 TOPIC 09/06/20 20:00 12/05/20 19:59 09/13/20 20:55 Dexamethasone (Decadron) 6 mg DAILY ORAL 09/10/20 21:00 09/19/20 09:01 09/14/20 08:54 Dextrose (Dextrose 50%) 25 ml Q30M PRN IV Hypoglycemia 08/30/20 23:45 11/28/20 23:44 Dextrose (Dextrose 50%) 50 ml Q30M PRN IV Hypoglycemia 08/30/20 23:45 11/28/20 23:44 Epoetin Shlomo (Epoetin Shlomo(ESRD on dialysis)) 10,000 unit TUE-TUE-TUE SUBQ 09/08/20 21:00 12/07/20 20:59 09/12/20 21:49 Folic Acid (Folate) 3 mg DAILY ORAL 09/02/20 09:00 10/02/20 08:59 09/14/20 08:54 Heparin Sodium (Porcine) (Heparin 5000 units/ml) 5,000 units EVERY 12 HOURS SUBQ 08/31/20 09:00 10/15/20 08:59 09/06/20 00:16 Insulin Aspart (NovoLOG) BEFORE MEALS AND HS SUBQ 08/31/20 06:30 11/29/20 06:29 09/14/20 06:35 Levothyroxine Sodium (Synthroid) 100 mcg DAILY@0630 ORAL 09/02/20 06:30 10/02/20 06:29 09/14/20 06:10 Metoclopramide HCl (Reglan) 5 mg THREE TIMES A DAY ORAL 08/31/20 13:00 09/30/20 12:59 09/14/20 08:53 Ondansetron HCl (Zofran) 4 mg Q6H PRN IVP Nausea & Vomiting 08/30/20 23:45 09/29/20 23:44 Pantoprazole (Protonix) 40 mg EVERY 12 HOURS ORAL 08/31/20 21:00 09/30/20 20:59 09/14/20 08:54 Pioglitazone HCl (Actos) 15 mg ACBREAKFAST ORAL 09/14/20 06:30 10/14/20 06:29 09/14/20 06:10 Polyethylene Glycol (Miralax) 17 gm DAILYPRN PRN ORAL Constipation 08/30/20 23:45 09/29/20 23:44 Promethazine HCl/ Codeine (Phenergan with Codeine) 5 ml Q6H PRN ORAL cough 08/30/20 23:45 09/29/20 23:44 Theophylline (Theophylline) 80 mg BID ORAL 09/13/20 18:00 12/08/20 13:59 09/14/20 08:53 Last 24 Hour Vital Signs Date Time Temp Pulse Resp B/P (MAP) Pulse Ox O2 Delivery O2 Flow Rate FiO2 09/14/20 08:12 Nasal Cannula 2.0 09/14/20 04:00 97.2 66 20 108/66 (80) 96 09/14/20 04:00 66 09/14/20 00:00 97.4 68 19 103/61 (75) 94 09/14/20 00:00 69 09/13/20 22:15 97 Nasal Cannula 4.0 36 09/13/20 22:15 65 18 97 Nasal Cannula 2.0 28 09/13/20 21:00 Nasal Cannula 2.0 09/13/20 20:00 97.9 69 19 128/63 (84) 95 09/13/20 20:00 69 09/13/20 16:00 97.5 70 20 120/54 (76) 95 09/13/20 16:00 70 09/13/20 12:00 69 09/13/20 12:00 97.3 71 20 102/56 (71) 94 09/13/20 09:00 Nasal Cannula 2.0 09/13/20 08:00 73 09/13/20 08:00 97.5 70 20 106/56 (73) 95 09/13/20 04:00 64 09/13/20 04:00 97.7 114 20 98/56 (70) 98 09/13/20 00:00 97.5 102 18 96/51 (66) 97 09/13/20 00:00 18 09/12/20 21:00 Nasal Cannula 2.0 09/12/20 20:00 62 09/12/20 20:00 98.1 61 17 94/54 (67) 97 09/12/20 19:20 61 20 97 Nasal Cannula 2.0 28 09/12/20 19:20 97 Nasal Cannula 4.0 36 09/12/20 17:11 97.7 09/12/20 16:00 97.7 60 20 150/67 (94) 100 09/12/20 16:00 66 09/12/20 12:00 60 09/12/20 12:00 98.4 60 20 159/86 (110) 100 Intake and Output 09/13/20 09/14/20 19:00 07:00 Intake Total 420 ml 260 ml Balance 420 ml 260 ml Intake Oral 420 ml 260 ml # Voids 1 # Bowel Movements 2 Labs Test 09/11/20 11:37 09/11/20 17:27 09/11/20 19:39 09/12/20 06:10 POC Whole Blood Glucose 161 MG/DL (74-106) 164 MG/DL (74-106) White Blood Count 14.2 K/UL (4.8-10.8) Red Blood Count 2.91 M/UL (4.20-5.40) Hemoglobin 8.5 G/DL (12.0-16.0) Hematocrit 28.3 % (37.0-47.0) Mean Corpuscular Volume 97 FL (80-99) Mean Corpuscular Hemoglobin 29.3 PG (27.0-31.0) Mean Corpuscular Hemoglobin Concent 30.1 G/DL (32.0-36.0) Red Cell Distribution Width 18.3 % (11.6-14.8) Platelet Count 108 K/UL (150-450) Mean Platelet Volume 7.7 FL (6.5-10.1) Neutrophils (%) (Auto) % (45.0-75.0) Lymphocytes (%) (Auto) % (20.0-45.0) Monocytes (%) (Auto) % (1.0-10.0) Eosinophils (%) (Auto) % (0.0-3.0) Basophils (%) (Auto) % (0.0-2.0) Differential Total Cells Counted 100 Neutrophils % (Manual) 90 % (45-75) Lymphocytes % (Manual) 6 % (20-45) Monocytes % (Manual) 4 % (1-10) Eosinophils % (Manual) 0 % (0-3) Basophils % (Manual) 0 % (0-2) Band Neutrophils 0 % (0-8) Platelet Estimate Decreased Platelet Morphology Normal Anisocytosis 1+ Spherocytes 2+ Sodium Level 136 MMOL/L (136-145) Potassium Level 4.1 MMOL/L (3.5-5.1) Chloride Level 100 MMOL/L (98-107) Carbon Dioxide Level 26 MMOL/L (21-32) Anion Gap 11 mmol/L (5-15) Blood Urea Nitrogen 55 mg/dL (7-18) Creatinine 4.8 MG/DL (0.55-1.30) Estimat Glomerular Filtration Rate 9.0 mL/min (>60) Glucose Level 153 MG/DL (74-106) Calcium Level 8.1 MG/DL (8.5-10.1) Test 09/12/20 06:42 09/12/20 11:23 09/12/20 22:03 09/13/20 06:10 POC Whole Blood Glucose 132 MG/DL (74-106) White Blood Count 14.3 K/UL (4.8-10.8) Red Blood Count 2.89 M/UL (4.20-5.40) Hemoglobin 8.5 G/DL (12.0-16.0) Hematocrit 28.8 % (37.0-47.0) Mean Corpuscular Volume 100 FL (80-99) Mean Corpuscular Hemoglobin 29.5 PG (27.0-31.0) Mean Corpuscular Hemoglobin Concent 29.6 G/DL (32.0-36.0) Red Cell Distribution Width 20.1 % (11.6-14.8) Platelet Count 88 K/UL (150-450) Mean Platelet Volume 8.6 FL (6.5-10.1) Neutrophils (%) (Auto) % (45.0-75.0) Lymphocytes (%) (Auto) % (20.0-45.0) Monocytes (%) (Auto) % (1.0-10.0) Eosinophils (%) (Auto) % (0.0-3.0) Basophils (%) (Auto) % (0.0-2.0) Differential Total Cells Counted 100 Neutrophils % (Manual) 93 % (45-75) Lymphocytes % (Manual) 6 % (20-45) Monocytes % (Manual) 1 % (1-10) Eosinophils % (Manual) 0 % (0-3) Basophils % (Manual) 0 % (0-2) Band Neutrophils 0 % (0-8) Platelet Estimate Decreased Platelet Morphology Normal Hypochromasia 1+ Anisocytosis 3+ Macrocytosis 1+ Erythrocyte Sedimentation Rate 37 MM/HR (0-30) Sodium Level 135 MMOL/L (136-145) Potassium Level 4.0 MMOL/L (3.5-5.1) Chloride Level 99 MMOL/L (98-107) Carbon Dioxide Level 28 MMOL/L (21-32) Anion Gap 9 mmol/L (5-15) Blood Urea Nitrogen 50 mg/dL (7-18) Creatinine 4.4 MG/DL (0.55-1.30) Estimat Glomerular Filtration Rate 9.9 mL/min (>60) Glucose Level 191 MG/DL (74-106) Uric Acid 3.6 MG/DL (2.6-7.2) Calcium Level 8.3 MG/DL (8.5-10.1) Phosphorus Level 4.9 MG/DL (2.5-4.9) Magnesium Level 2.6 MG/DL (1.8-2.4) Total Bilirubin 0.6 MG/DL (0.2-1.0) Aspartate Amino Transf (AST/SGOT) 17 U/L (15-37) Alanine Aminotransferase (ALT/SGPT) 10 U/L (12-78) Alkaline Phosphatase 128 U/L (46-116) C-Reactive Protein, Quantitative 6.1 mg/dL (0.00-0.90) Pro-B-Type Natriuretic Peptide 97169 pg/mL (0-125) Total Protein 6.9 G/DL (6.4-8.2) Albumin 2.9 G/DL (3.4-5.0) Globulin 4.0 g/dL Albumin/Globulin Ratio 0.7 (1.0-2.7) Test 09/13/20 12:17 09/13/20 17:15 09/13/20 21:11 09/14/20 04:15 POC Whole Blood Glucose 177 MG/DL (74-106) 223 MG/DL (74-106) 227 MG/DL (74-106) White Blood Count 15.2 K/UL (4.8-10.8) Red Blood Count 2.95 M/UL (4.20-5.40) Hemoglobin 8.7 G/DL (12.0-16.0) Hematocrit 29.3 % (37.0-47.0) Mean Corpuscular Volume 99 FL (80-99) Mean Corpuscular Hemoglobin 29.6 PG (27.0-31.0) Mean Corpuscular Hemoglobin Concent 29.8 G/DL (32.0-36.0) Red Cell Distribution Width 20.1 % (11.6-14.8) Platelet Count 120 K/UL (150-450) Mean Platelet Volume 8.0 FL (6.5-10.1) Neutrophils (%) (Auto) % (45.0-75.0) Lymphocytes (%) (Auto) % (20.0-45.0) Monocytes (%) (Auto) % (1.0-10.0) Eosinophils (%) (Auto) % (0.0-3.0) Basophils (%) (Auto) % (0.0-2.0) Differential Total Cells Counted 100 Neutrophils % (Manual) 90 % (45-75) Lymphocytes % (Manual) 6 % (20-45) Monocytes % (Manual) 4 % (1-10) Eosinophils % (Manual) 0 % (0-3) Basophils % (Manual) 0 % (0-2) Band Neutrophils 0 % (0-8) Platelet Estimate Decreased Platelet Morphology Normal Polychromasia 1+ Hypochromasia 2+ Anisocytosis 3+ Macrocytosis 1+ Sodium Level 135 MMOL/L (136-145) Potassium Level 4.3 MMOL/L (3.5-5.1) Chloride Level 98 MMOL/L (98-107) Carbon Dioxide Level 25 MMOL/L (21-32) Anion Gap 12 mmol/L (5-15) Blood Urea Nitrogen 60 mg/dL (7-18) Creatinine 5.0 MG/DL (0.55-1.30) Estimat Glomerular Filtration Rate 8.6 mL/min (>60) Glucose Level 178 MG/DL (74-106) Calcium Level 8.4 MG/DL (8.5-10.1) Test 09/14/20 06:15 Height (Feet): 5 Height (Inches): 10.00 Weight (Pounds): 218 Objective ++Derick Hwang MD Sep 14, 2020 10:01
--- NOTE | 2020-09-14 10:06 | Pulmonology Progress Note ---
Subjective ROS Limited/Unobtainable: No Interval Events: no new events Allergies: Coded Allergies: No Known Allergies (Unverified , 10/10/19) Subjective + leukocytosis, no fevers now on HD on isolation 09/10 rapid COVID positive, started on steroids no signs of resp distress pulse ox stable on O2 via NC awaiting COVID 19 by PCR result denies CP, SOB, palpitations Objective Last 24 Hour Vital Signs Date Time Temp Pulse Resp B/P (MAP) Pulse Ox O2 Delivery O2 Flow Rate FiO2 09/14/20 08:12 Nasal Cannula 2.0 09/14/20 04:00 97.2 66 20 108/66 (80) 96 09/14/20 04:00 66 09/14/20 00:00 97.4 68 19 103/61 (75) 94 09/14/20 00:00 69 09/13/20 22:15 97 Nasal Cannula 4.0 36 09/13/20 22:15 65 18 97 Nasal Cannula 2.0 28 09/13/20 21:00 Nasal Cannula 2.0 09/13/20 20:00 97.9 69 19 128/63 (84) 95 09/13/20 20:00 69 09/13/20 16:00 97.5 70 20 120/54 (76) 95 09/13/20 16:00 70 09/13/20 12:00 69 09/13/20 12:00 97.3 71 20 102/56 (71) 94 Intake and Output 09/13/20 09/14/20 19:00 07:00 Intake Total 420 ml 260 ml Balance 420 ml 260 ml Intake Oral 420 ml 260 ml # Voids 1 # Bowel Movements 2 Objective General Appearance: no apparent distress, obese, awake and alert German speaking female Lines, tubes and drains: R chest HD catheter HEENT: normocephalic, atraumatic, anicteric, mucous membranes moist Neck: non-tender , short and thick, supple Respiratory/Chest: crackles/rales - bibasilar Cardiovascular/Chest: normal rate - tele with SR with RBBB Abdomen: normal bowel sounds, non tender , obese, soft Neurologic: no motor/sensory deficits, alert, oriented x 3, responsive, normal mood/affect Musculoskeletal: normal muscle bulk Laboratory Tests 09/13/20 12:17: POC Whole Blood Glucose 177H 09/13/20 17:15: POC Whole Blood Glucose 223H 09/13/20 21:11: POC Whole Blood Glucose 227H 09/14/20 04:15: White Blood Count 15.2H, Red Blood Count 2.95L, Hemoglobin 8.7L, Hematocrit 29.3L, Mean Corpuscular Volume 99, Mean Corpuscular Hemoglobin 29.6, Mean Corpuscular Hemoglobin Concent 29.8L, Red Cell Distribution Width 20.1H, Platelet Count 120L, Mean Platelet Volume 8.0, Neutrophils (%) (Auto) , Lymphocytes (%) (Auto) , Monocytes (%) (Auto) , Eosinophils (%) (Auto) , Basophils (%) (Auto) , Differential Total Cells Counted 100, Neutrophils % (Manual) 90H, Lymphocytes % (Manual) 6L, Monocytes % (Manual) 4, Eosinophils % (Manual) 0, Basophils % (Manual) 0, Band Neutrophils 0, Platelet Estimate DecreasedL, Platelet Morphology Normal, Polychromasia 1+, Hypochromasia 2+, Anisocytosis 3+, Macrocytosis 1+, Sodium Level 135L, Potassium Level 4.3, Chloride Level 98, Carbon Dioxide Level 25, Anion Gap 12, Blood Urea Nitrogen 60H, Creatinine 5.0H, Estimat Glomerular Filtration Rate 8.6, Glucose Level 178H , Calcium Level 8.4L 09/14/20 06:15: POC Whole Blood Glucose [Pending] Current Medications Medications (Trade) Dose Ordered Sig/[place] Route PRN Reason Start Time Stop Time Status Last Admin Dose Admin Acetaminophen (Tylenol) 650 mg Q4H PRN ORAL FEVER 08/30/20 23:45 09/29/20 23:44 Acetaminophen/ Hydrocodone Bitart ([place]chen[place] 5/325) 1 tab Q6H PRN ORAL Severe Pain (Pain Scale 7-10) 09/09/20 12:15 09/16/20 12:14 09/12/20 16:41 Calcium Acetate (Phoslo) 667 mg TIAC ORAL 09/08/20 11:30 12/07/20 11:29 09/14/20 06:10 Chlorhexidine Gluconate (Josiane-Hex 2%) 1 applic DAILY@2000 TOPIC 09/06/20 20:00 12/05/20 19:59 09/13/20 20:55 Dexamethasone (Decadron) 6 mg DAILY ORAL 09/10/20 21:00 09/19/20 09:01 09/14/20 08:54 Dextrose (Dextrose 50%) 25 ml Q30M PRN IV Hypoglycemia 08/30/20 23:45 11/28/20 23:44 Dextrose (Dextrose 50%) 50 ml Q30M PRN IV Hypoglycemia 08/30/20 23:45 11/28/20 23:44 Epoetin Shlomo (Epoetin Shlomo(ESRD on dialysis)) 10,000 unit TUE- SUBQ 09/08/20 21:00 12/07/20 20:59 09/12/20 21:49 Folic Acid (Folate) 3 mg DAILY ORAL 09/02/20 09:00 10/02/20 08:59 09/14/20 08:54 Heparin Sodium (Porcine) (Heparin 5000 units/ml) 5,000 units EVERY 12 HOURS SUBQ 08/31/20 09:00 10/15/20 08:59 09/06/20 00:16 Insulin Aspart (NovoLOG) BEFORE MEALS AND HS SUBQ 08/31/20 06:30 11/29/20 06:29 09/14/20 06:35 Levothyroxine Sodium (Synthroid) 100 mcg DAILY@0630 ORAL 09/02/20 06:30 10/02/20 06:29 09/14/20 06:10 Metoclopramide HCl (Reglan) 5 mg THREE TIMES A DAY ORAL 08/31/20 13:00 09/30/20 12:59 09/14/20 08:53 Ondansetron HCl (Zofran) 4 mg Q6H PRN IVP Nausea & Vomiting 08/30/20 23:45 09/29/20 23:44 Pantoprazole (Protonix) 40 mg EVERY 12 HOURS ORAL 08/31/20 21:00 09/30/20 20:59 09/14/20 08:54 Pioglitazone HCl (Actos) 15 mg ACBREAKFAST ORAL 09/14/20 06:30 10/14/20 06:29 09/14/20 06:10 Polyethylene Glycol (Miralax) 17 gm DAILYPRN PRN ORAL Constipation 08/30/20 23:45 09/29/20 23:44 Promethazine HCl/ Codeine (Phenergan with Codeine) 5 ml Q6H PRN ORAL cough 08/30/20 23:45 09/29/20 23:44 Theophylline (Theophylline) 80 mg BID ORAL 09/13/20 18:00 12/08/20 13:59 09/14/20 08:53 Assessment/Plan Assessment/Plan ASSESSMENT Acute hypoxemic respiratory failure , requiring nonrebreather mask -resolved Congestive heart failure with diastolic dysfunction Mild cardiomyopathy, possible ischemic ( EF 50%, anteroseptal wall hypokinesis) Fluid overload 2 to acute renal failure Acute kidney injury -> requiring initiation of HD R pleural effusion, transudative ; s/p tap 09/03 -> 680 ml Severe sepsis COVID PNA Moderate MR and severe TR Moderate pulm HTN Hypertension Diabetes mellitus Anemia Folate deficiency PLAN OF CARE tele O2 titrate to keep sat > 92%, currently down to O2 via NC pulm toilet s/p tap 09/03 R pleural effusion -> 680 ml, fluid analysis noted, fluid cx NGT first two COVID NGT, rapid COVID 09/10 + , COVID 19 by PCR pending isolation on steroids fup with inflam markers not a candidate for remdesivvir, given ESRD CXR 09/12 with findings of possible multifocal PNA -> consider abx as per ID recs a/c -> dosed as DVT prophylaxis venous Duplex BLE NGT ECHO with EF 50%, anteroseptal wall hypokinesis, can't exclude ischemic CM moderate MR and mod pulm HTN renal US ascites, mildly atrophic R kidney creatinine worsened, HD catheter placed 09/05 and pt started on HD with close monitoring of volumes, renal parameters and lytes GI prophylaxis BP and BS management monitor HH with goal to keep Hgb > 7, s/p IV Venofer on EPO noted folic acid deficiency, started on folate X ray R knee - no acute findings, pain management supportive care case discussed and evaluated by supervising physician Jenna García NP Sep 14, 2020 10:06
--- NOTE | 2020-09-14 11:26 | General Progress Note ---
Subjective ROS Limited/Unobtainable: Yes Allergies: Coded Allergies: No Known Allergies (Unverified , 10/10/19) Objective Last 24 Hour Vital Signs Date Time Temp Pulse Resp B/P (MAP) Pulse Ox O2 Delivery O2 Flow Rate FiO2 09/14/20 10:48 66 09/14/20 10:48 97.2 71 20 109/60 (76) 97 09/14/20 08:12 Nasal Cannula 2.0 09/14/20 08:00 97.2 64 20 109/60 (76) 97 09/14/20 04:00 97.2 66 20 108/66 (80) 96 09/14/20 04:00 66 09/14/20 00:00 97.4 68 19 103/61 (75) 94 09/14/20 00:00 69 09/13/20 22:15 97 Nasal Cannula 4.0 36 09/13/20 22:15 65 18 97 Nasal Cannula 2.0 28 09/13/20 21:00 Nasal Cannula 2.0 09/13/20 20:00 97.9 69 19 128/63 (84) 95 09/13/20 20:00 69 09/13/20 16:00 97.5 70 20 120/54 (76) 95 09/13/20 16:00 70 09/13/20 12:00 69 09/13/20 12:00 97.3 71 20 102/56 (71) 94 Intake and Output 09/13/20 09/14/20 19:00 07:00 Intake Total 420 ml 260 ml Balance 420 ml 260 ml Intake Oral 420 ml 260 ml # Voids 1 # Bowel Movements 2 Laboratory Tests 09/13/20 12:17: POC Whole Blood Glucose 177H 09/13/20 17:15: POC Whole Blood Glucose 223H 09/13/20 21:11: POC Whole Blood Glucose 227H 09/14/20 04:15: White Blood Count 15.2H, Red Blood Count 2.95L, Hemoglobin 8.7L, Hematocrit 29.3L, Mean Corpuscular Volume 99, Mean Corpuscular Hemoglobin 29.6, Mean Corpuscular Hemoglobin Concent 29.8L, Red Cell Distribution Width 20.1H, Platelet Count 120L, Mean Platelet Volume 8.0, Neutrophils (%) (Auto) , Lymphocytes (%) (Auto) , Monocytes (%) (Auto) , Eosinophils (%) (Auto) , Basophils (%) (Auto) , Differential Total Cells Counted 100, Neutrophils % (Manual) 90H, Lymphocytes % (Manual) 6L, Monocytes % (Manual) 4, Eosinophils % (Manual) 0, Basophils % (Manual) 0, Band Neutrophils 0, Platelet Estimate Decr easedL, Platelet Morphology Normal, Polychromasia 1+, Hypochromasia 2+, Anisocytosis 3+, Macrocytosis 1+, Sodium Level 135L, Potassium Level 4.3, Chloride Level 98, Carbon Dioxide Level 25, Anion Gap 12, Blood Urea Nitrogen 60H, Creatinine 5.0H, Estimat Glomerular Filtration Rate 8.6, Glucose Level 178H , Calcium Level 8.4L 09/14/20 06:15: POC Whole Blood Glucose [Pending] Height (Feet): 5 Height (Inches): 10.00 Weight (Pounds): 218 Assessment/Plan Problem List: (1) Anemia ICD Codes: D64.9 - Anemia, unspecified SNOMED: 548832211 (2) Ulcers of both lower legs ICD Codes: L97.919 - Non-pressure chronic ulcer of unspecified part of right lower leg with unspecified severity; L97.929 - Non-pressure chronic ulcer of unspecified part of left lower leg with unspecified severity SNOMED: 56838405, 054013982 (3) Open wounds involving multiple regions of lower extremity ICD Codes: S81.809A - Unspecified open wound, unspecified lower leg, initial encounter SNOMED: 120384515 (4) Pneumonia ICD Codes: J18.9 - Pneumonia, unspecified organism SNOMED: 596634872 (5) History of hypertension ICD Codes: Z86.79 - Personal history of other diseases of the circulatory system SNOMED: 101084798 (6) Diabetes mellitus ICD Codes: E11.9 - Type 2 diabetes mellitus without complications SNOMED: 86814607 (7) Renal failure (ARF), acute on chronic ICD Codes: N17.9 - Acute kidney failure, unspecified; N18.9 - Chronic kidney disease, unspecified SNOMED: 535567105 (8) Hyperkalemia ICD Codes: E87.5 - Hyperkalemia SNOMED: 85229182 (9) CAD (coronary artery disease) ICD Codes: I25.10 - Atherosclerotic heart disease of [place] coronary artery w ithout angina pectoris SNOMED: 65650396 (10) Hypothyroidism ICD Codes: E03.9 - Hypothyroidism, unspecified SNOMED: 57213951 (11) Cardiac left ventricular ejection fraction greater than 40 percent ICD Codes: R94.30 - Abnormal result of cardiovascular function study, unspecif ied SNOMED: 098014041 (12) Grade I diastolic dysfunction ICD Codes: I51.9 - Heart disease, unspecified SNOMED: 3998261 Status: unchanged Assessment/Plan: chf azotemia reviewed chart and labs afebrile cad lyte abnormality hypothyroidism htn niddm elevated lipid Tj Suazo MD Sep 14, 2020 11:26
--- NOTE | 2020-09-14 12:45 | Nephrology Progress Note ---
Assessment/Plan Problem List: (1) Renal failure (ARF), acute on chronic (2) Hyperkalemia (3) Hypothyroidism (4) Acute on chronic diastolic (congestive) heart failure (5) Diabetic nephropathy (6) Pneumonia Assessment: Leukocytosis, abnormal chest x-ray (7) Anemia Assessment 1) Renal failure (ARF), acute on chronic (2) Diabetes mellitus (3) Hypoglycemia (4) Hyperkalemia (5) Diabetic nephropathy (6) H/o Pleural effusion (7) Morbid obesity (8) Low Iron Anemia (9) HypoThyroidism Plan September 14: Patient was dialyzed September 12. Due for dialysis today. Labs reviewed. Continue per consultants. September 13: Patient was dialyzed yesterday. Medication reviewed. Labs reviewed. White blood cells rising. Currently on dexamethasone IV for COVID-19 will dialyze again tomorrow September 12: Patient due for dialysis and ultrafiltration today. Labs reviewed. Medication list reviewed. Continue per consultants. September 11: Patient dialyzed yesterday. Labs reviewed. Patient is now COVID- 19 test positive. On isolation. Will dialyze again tomorrow. Continue per consultants. September 10: Patient due for dialysis and ultrafiltration today. Labs reviewed. And medication list reviewed. September 09: Patient was dialyzed yesterday. Due for dialysis and ultrafiltration tomorrow. Will start theophylline for although lumbar diet and also improvement of the heart rate. Recheck TSH in a.m. Continue as is. DC Chan catheter. September 08: Patient due for dialysis and ultrafiltration today. Labs reviewed. PhosLo given. Continue as is. September 07: Patient was dialyzed 2 days in a row. Ultra filtrated 3 L a day. Patient continues to be edematous however much less. Will dialyze again tomorrow with ultrafiltration. Will monitor renal parameters. September 06: Patient was dialyzed yesterday. Ultrafiltration was done. Patient remains edematous. Will do another dialysis and aim 3 L fluid removal as tolerates. Discontinue IV Lasix and oral hydralazine. Will adjust blood pressure medication as needed. Discussed with RN, antibiotics intravenously if possible should be changed to oral since there is no IV line available. 1 dose of Venofer 200 mg ordered to be given during dialysis. Subcutaneous Epogen ordered for anemia. September 05: New 24-hour urine suggestive of creatinine clearance of 3. Patient due for insertion of dialysis catheter. Hemodialysis and ultrafiltration after insertion of catheter. September 04: New 24-hour urine test is in process. Discussed with RN. Patient was short of breath overnight. ABG ordered. 1 dose of Zaroxolyn ordered. Patient has fluid overload, and need ultrafiltration. Blood cultures negative. Leukocytosis resolved. Will order placement of permacath and dialysis and ultrafiltration. September 03: The 24-hour urine results appears to be an error in view of total volume compared to intake and output records. Today's labs reviewed. Serum creatinine higher. Talk to the nursing charge of the floor and will order another 24-hour urine collection. Meanwhile continue per ID treatment for UTI and leukocytosis. Dexamethasone on the medication list was questioned. Patient may require dialysis if continues to have worsening renal parameters. September 02: Consent for dialysis catheter is taken. Catheter placement deferred due to leukocytosis. Surveillance blood culture ordered. Urine culture ordered. Blood pressure medication adjusted. 24-hour urine for creatinine clearance and total protein pending. Previously: Chan Cath 24 H CrCl and total protein ordered Off IV fluids, on IV Lasix Adjust BP meds Previous 2D echocardiogram ejection fraction is reported to 50% Previous Kidney ultrasound noted. Current kidney ultrasound results below Anemia work-up As needed Kayexalate for high potassium Keep blood pressure and blood sugar in check Monitor renal parameters Requires HD treatment SUDHIR KIDNEY IMPRESSION: 1. Ascites. 2. Bilateral pleural effusions. 3. Complex right renal cysts of uncertain etiology. This complex cyst is unchanged from the study of 01/12/2020. 4. Mildly atrophic right kidney. 5. Magnetic resonance imaging of the abdomen with gadolinium administration is advised for further evaluation of complex right renal cyst. Subjective ROS Limited/Unobtainable: No Constitutional: Reports: malaise, weakness Objective Objective Last 24 Hour Vital Signs Date Time Temp Pulse Resp B/P (MAP) Pulse Ox O2 Delivery O2 Flow Rate FiO2 09/14/20 10:48 66 09/14/20 10:48 97.2 71 20 109/60 (76) 97 09/14/20 08:12 Nasal Cannula 2.0 09/14/20 08:00 97.2 64 20 109/60 (76) 97 09/14/20 07:00 64 18 97 Nasal Cannula 2.0 28 09/14/20 07:00 97 Nasal Cannula 2.0 28 09/14/20 04:00 97.2 66 20 108/66 (80) 96 09/14/20 04:00 66 09/14/20 00:00 97.4 68 19 103/61 (75) 94 09/14/20 00:00 69 09/13/20 22:15 97 Nasal Cannula 4.0 36 09/13/20 22:15 65 18 97 Nasal Cannula 2.0 28 09/13/20 21:00 Nasal Cannula 2.0 09/13/20 20:00 97.9 69 19 128/63 (84) 95 09/13/20 20:00 69 09/13/20 16:00 97.5 70 20 120/54 (76) 95 09/13/20 16:00 70 Intake and Output 09/13/20 09/14/20 19:00 07:00 Intake Total 420 ml 260 ml Balance 420 ml 260 ml Intake Oral 420 ml 260 ml # Voids 1 # Bowel Movements 2 Current Medications Medications (Trade) Dose Ordered Sig/[place] Route PRN Reason Start Time Stop Time Status Last Admin Dose Admin Acetaminophen (Tylenol) 650 mg Q4H PRN ORAL FEVER 08/30/20 23:45 09/29/20 23:44 Acetaminophen/ Hydrocodone Bitart ([place] 5/325) 1 tab Q6H PRN ORAL Severe Pain (Pain Scale 7-10) 09/09/20 12:15 09/16/20 12:14 09/12/20 16:41 Calcium Acetate (Phoslo) 667 mg TIAC ORAL 09/08/20 11:30 12/07/20 11:29 09/14/20 12:11 Chlorhexidine Gluconate (Josiane-Hex 2%) 1 applic DAILY@1999 TOPIC 09/06/20 20:00 12/05/20 19:59 09/13/20 20:55 Dexamethasone (Decadron) 6 mg DAILY ORAL 09/10/20 21:00 09/19/20 09:01 09/14/20 08:54 Dextrose (Dextrose 50%) 25 ml Q30M PRN IV Hypoglycemia 08/30/20 23:45 11/28/20 23:44 Dextrose (Dextrose 50%) 50 ml Q30M PRN IV Hypoglycemia 08/30/20 23:45 11/28/20 23:44 Epoetin Shlomo (Epoetin Shlomo(ESRD on dialysis)) 10,000 unit TUE- SUBQ 09/08/20 21:00 12/07/20 20:59 09/12/20 21:49 Folic Acid (Folate) 3 mg DAILY ORAL 09/02/20 09:00 10/02/20 08:59 09/14/20 08:54 Heparin Sodium (Porcine) (Heparin 5000 units/ml) 5,000 units EVERY 12 HOURS SUBQ 08/31/20 09:00 10/15/20 08:59 09/06/20 00:16 Insulin Aspart (NovoLOG) BEFORE MEALS AND HS SUBQ 08/31/20 06:30 11/29/20 06:29 09/14/20 11:30 Levothyroxine Sodium (Synthroid) 100 mcg DAILY@0630 ORAL 09/02/20 06:30 10/02/20 06:29 09/14/20 06:10 Metoclopramide HCl (Reglan) 5 mg THREE TIMES A DAY ORAL 08/31/20 13:00 09/30/20 12:59 09/14/20 12:11 Ondansetron HCl (Zofran) 4 mg Q6H PRN IVP Nausea & Vomiting 08/30/20 23:45 09/29/20 23:44 Pantoprazole (Protonix) 40 mg EVERY 12 HOURS ORAL 08/31/20 21:00 09/30/20 20:59 09/14/20 08:54 Pioglitazone HCl (Actos) 15 mg ACBREAKFAST ORAL 09/14/20 06:30 10/14/20 06:29 09/14/20 06:10 Polyethylene Glycol (Miralax) 17 gm DAILYPRN PRN ORAL Constipation 08/30/20 23:45 09/29/20 23:44 Promethazine HCl/ Codeine (Phenergan with Codeine) 5 ml Q6H PRN ORAL cough 08/30/20 23:45 09/29/20 23:44 Theophylline (Theophylline) 80 mg BID ORAL 09/13/20 18:00 12/08/20 13:59 09/14/20 08:53 Laboratory Tests 09/13/20 17:15: POC Whole Blood Glucose 223H 09/13/20 21:11: POC Whole Blood Glucose 227H 09/14/20 04:15: White Blood Count 15.2H, Red Blood Count 2.95L, Hemoglobin 8.7L, Hematocrit 29.3L, Mean Corpuscular Volume 99, Mean Corpuscular Hemoglobin 29.6, Mean Corpuscular Hemoglobin Concent 29.8L, Red Cell Distribution Width 20.1H, Platelet Count 120L, Mean Platelet Volume 8.0, Neutrophils (%) (Auto) , Lymphocytes (%) (Auto) , Monocytes (%) (Auto) , Eosinophils (%) (Auto) , Basophils (%) (Auto) , Differential Total Cells Counted 100, Neutrophils % (Manual) 90H, Lymphocytes % (Manual) 6L, Monocytes % (Manual) 4, Eosinophils % (Manual) 0, Basophils % (Manual) 0, Band Neutrophils 0, Platelet Estimate DecreasedL, Platelet Morphology Normal, Polychromasia 1+, Hypochromasia 2+, Anisocytosis 3+, Macrocytosis 1+, Sodium Level 135L, Potassium Level 4.3, Chloride Level 98, Carbon Dioxide Level 25, Anion Gap 12, Blood Urea Nitrogen 60H, Creatinine 5.0H, Estimat Glomerular Filtration Rate 8.6, Glucose Level 178H , Calcium Level 8.4L 09/14/20 06:15: POC Whole Blood Glucose [Pending] 09/14/20 12:02: POC Whole Blood Glucose 204H Height (Feet): 5 Height (Inches): 10.00 Weight (Pounds): 218 General Appearance: no apparent distress Respiratory/Chest: decreased breath sounds Abdomen: soft Jay Severino MD Sep 14, 2020 12:45
--- NOTE | 2020-09-14 17:30 | Surgery Progress Note ---
Surgery Progress Note Subjective Additional Comments leukocytosis no n/v labs noted exam stable no n/v Objective Last 24 Hour Vital Signs Date Time Temp Pulse Resp B/P (MAP) Pulse Ox O2 Delivery O2 Flow Rate FiO2 09/14/20 12:00 68 09/14/20 12:00 97.5 70 20 105/53 (70) 94 09/14/20 10:48 66 09/14/20 10:48 97.2 71 20 109/60 (76) 97 09/14/20 08:12 Nasal Cannula 2.0 09/14/20 08:00 97.2 64 20 109/60 (76) 97 09/14/20 07:00 64 18 97 Nasal Cannula 2.0 28 09/14/20 07:00 97 Nasal Cannula 2.0 28 09/14/20 04:00 97.2 66 20 108/66 (80) 96 09/14/20 04:00 66 09/14/20 00:00 97.4 68 19 103/61 (75) 94 09/14/20 00:00 69 09/13/20 22:15 97 Nasal Cannula 4.0 36 09/13/20 22:15 65 18 97 Nasal Cannula 2.0 28 09/13/20 21:00 Nasal Cannula 2.0 09/13/20 20:00 97.9 69 19 128/63 (84) 95 09/13/20 20:00 69 I&O Intake and Output 09/13/20 09/14/20 19:00 07:00 Intake Total 420 ml 260 ml Balance 420 ml 260 ml Intake Oral 420 ml 260 ml # Voids 1 # Bowel Movements 2 Dressing: saturated Cardiovascular: RSR Respiratory: decreased breath sounds Abdomen: non-tender, present bowel sounds, non-distended Extremities: no edema, no tenderness, no cyanosis Laboratory Tests Test 09/13/20 21:11 09/14/20 04:15 09/14/20 06:15 09/14/20 12:02 POC Whole Blood Glucose 227 MG/DL (74-106) H Pending 204 MG/DL (74-106) H White Blood Count 15.2 K/UL (4.8-10.8) H Red Blood Count 2.95 M/UL (4.20-5.40) L Hemoglobin 8.7 G/DL (12.0-16.0) L Hematocrit 29.3 % (37.0-47.0) L Mean Corpuscular Volume 99 FL (80-99) Mean Corpuscular Hemoglobin 29.6 PG (27.0-31.0) Mean Corpuscular Hemoglobin Concent 29.8 G/DL (32.0-36.0) L Red Cell Distribution Width 20.1 % (11.6-14.8) H Platelet Count 120 K/UL (150-450) L Mean Platelet Volume 8.0 FL (6.5-10.1) Neutrophils (%) (Auto) % (45.0-75.0) Lymphocytes (%) (Auto) % (20.0-45.0) Monocytes (%) (Auto) % (1.0-10.0) Eosinophils (%) (Auto) % (0.0-3.0) Basophils (%) (Auto) % (0.0-2.0) Differential Total Cells Counted 100 Neutrophils % (Manual) 90 % (45-75) H Lymphocytes % (Manual) 6 % (20-45) L Monocytes % (Manual) 4 % (1-10) Eosinophils % (Manual) 0 % (0-3) Basophils % (Manual) 0 % (0-2) Band Neutrophils 0 % (0-8) Platelet Estimate Decreased L Platelet Morphology Normal Polychromasia 1+ Hypochromasia 2+ Anisocytosis 3+ Macrocytosis 1+ Sodium Level 135 MMOL/L (136-145) L Potassium Level 4.3 MMOL/L (3.5-5.1) Chloride Level 98 MMOL/L (98-107) Carbon Dioxide Level 25 MMOL/L (21-32) Anion Gap 12 mmol/L (5-15) Blood Urea Nitrogen 60 mg/dL (7-18) H Creatinine 5.0 MG/DL (0.55-1.30) H Estimat Glomerular Filtration Rate 8.6 mL/min (>60) Glucose Level 178 MG/DL (74-106) H Calcium Level 8.4 MG/DL (8.5-10.1) L Test 09/14/20 16:51 POC Whole Blood Glucose 188 MG/DL (74-106) H Plan Problems: (1) Acute on chronic diastolic (congestive) heart failure (2) Anemia (3) Acute respiratory failure Assessment & Plan: Large right pleural effusion persists, unchanged. Bilateral interstitial and airspace edema, cardiomegaly persists, probably unchanged allowing for differences in technique and inspiration (4) ACS (acute coronary syndrome) (5) History of hypertension (6) Moderate pulmonary arterial systolic hypertension (7) Left bundle branch block (LBBB) (8) Diabetes mellitus (9) Diabetic nephropathy (10) Renal failure (ARF), acute on chronic (11) Hyperkalemia (12) Bacteremia (13) CAD (coronary artery disease) (14) Hypothyroidism (15) Cardiac left ventricular ejection fraction greater than 40 percent (16) Grade I diastolic dysfunction (17) UTI (urinary tract infection) (18) Ulcers of both lower legs (19) Open wounds involving multiple regions of lower extremity Assessment & Plan: Patient identified admission having bilateral lower extremity edema open wounds as well as necrotic ulcerations. Patient states she has had this for some time now and acutely worsening as well. Bilateral lower leg wounds do to blisters from edema. Right medial lower leg wound 2.1x4.2x0.2 dark brown scab . Right anterior lower leg wound 5.6x5.3x0.2 pink wound bed. Right distal anterior lower leg 4.0x6.0x0.2 pink wound bed . Large amount serous drainage right leg wounds , Xeroform ,gauze,abd pad and kerlix applied change every shift. Left lower leg wound 3.7x5.0x0.3 100% green slough large amount serous drainage noted with small blisters ifeoma wound, Thera Honey, gauze,abd pad and kerlix applied, change every shift. Local wound care plan initiate Nutritional optimization Turn every 2 hours Elevate extremities Thank you will follow recommendations Right deep veins: Unremarkable. No DVT in the right common femoral, femoral, proximal deep femoral or popliteal veins. The veins demonstrate normal color flow, are normally compressible, with normal phasic flow and/or augmentation response. Right superficial veins: Unremarkable. No thrombus in the visualized right great saphenous vein. Left deep veins: Unremarkable. No DVT in the left common femoral, femoral, proximal deep femoral or popliteal veins. The veins demonstrate normal color flow, are normally compressible, with normal phasic flow and/or augmentation response. Left superficial veins: Unremarkable. No thrombus in the visualized left great saphenous vein. Soft tissues: No acute findings. No popliteal cyst. IMPRESSION: Normal bilateral lower extremity duplex venous ultrasound. DAILY ESTIMATED NEEDS: Needs based on ARF, now HD 65.7kg abw 25-30 kcals/kg 1096-4087 total kcals 1.25-1.8 g protein/kg 82-118 g total protein Fluid per MD, HD pending NUTRITION DIAGNOSIS: Increased pro needs r/t renal dysfunction as evidenced by pt w/ ARF, w/ now pending HD, K on adm (5.8), elev BUN (81), elev Creat (3.8), elev phos and mg. CURRENT DIET:Renal/ CCHO MED PO DIET RECOMMENDATIONS: Renal / CCHO LOW diet + high pro snacks in b/w meals ADDITIONAL RECOMMENDATIONS: 1) Maintain calibrated bed scale wts 2) High pro snacks in b/w meals 3) Rec WC eval-> add nephrovite 1 tab daily Vit C per nephro (20) Pneumonia (21) Gout (22) 2019 novel coronavirus disease (COVID-19) Assessment & Plan: +++ during hospitalization on tx isolation Omar Tellez Sep 14, 2020 17:30
[2020-09-14] MEDS: Dyna-Hex 2% Top Sol 2oz TOPIC SCH (21:24)
[2020-09-14] MEDS: HYDROcodone/Acetamin 5/325 tab ORAL PRN (23:54)
[2020-09-15] VITALS: BP 116/70
[2020-09-15 04:00] VITALS: BP 114/62
[2020-09-15] MEDS: NovoLOG Insulin Flexpen SUBQ SCH ×4 (06:21→20:38)
[2020-09-15 06:26] LABS: HEMATOCRIT 29.5 % (37.0-47.0); HEMOGLOBIN 8.8 G/DL (12.0-16.0); MEAN CORPUSCULAR VOLUME 101 FL (80-99); PLATELET COUNT 111 K/UL (150-450); RED BLOOD COUNT 2.93 M/UL (4.20-5.40); RED CELL DISTRIBUTION WIDTH 22.1 % (11.6-14.8); WHITE BLOOD COUNT 15.4 K/UL (4.8-10.8)
--- NOTE | 2020-09-15 06:28 | General Progress Note ---
Subjective Allergies: Coded Allergies: No Known Allergies (Unverified , 10/10/19) All Systems: reviewed and negative except above Subjective events noted - interval notes reviewed Item Value Date Time Bedside Blood Glucose 247 mg/dl H 09/15/20 0621 Bedside Blood Glucose 211 mg/dl H 09/14/20 2126 Bedside Blood Glucose 187 mg/dl H 09/14/20 1703 Bedside Blood Glucose 204 mg/dl H 09/14/20 1130 Bedside Blood Glucose 254 mg/dl H 09/14/20 0635 Objective Last 24 Hour Vital Signs Date Time Temp Pulse Resp B/P (MAP) Pulse Ox O2 Delivery O2 Flow Rate FiO2 09/15/20 04:00 97.0 68 21 114/62 (79) 97 09/15/20 03:45 68 09/15/20 00:26 76 09/15/20 00:24 98.1 09/15/20 00:00 96.8 71 21 116/70 (85) 99 09/14/20 21:00 Nasal Cannula 2.0 09/14/20 20:00 98.1 70 20 123/68 (86) 95 09/14/20 19:55 68 09/14/20 16:00 72 09/14/20 16:00 97.5 76 20 106/66 (79) 95 09/14/20 12:00 68 09/14/20 12:00 97.5 70 20 105/53 (70) 94 09/14/20 10:48 66 09/14/20 10:48 97.2 71 20 109/60 (76) 97 09/14/20 08:12 Nasal Cannula 2.0 09/14/20 08:00 97.2 64 20 109/60 (76) 97 09/14/20 07:00 64 18 97 Nasal Cannula 2.0 28 09/14/20 07:00 97 Nasal Cannula 2.0 28 Intake and Output 09/14/20 09/15/20 19:00 07:00 # Bowel Movements 1 1 Laboratory Tests 09/14/20 12:02: POC Whole Blood Glucose 204H 09/14/20 16:51: POC Whole Blood Glucose 188H 09/14/20 21:24: POC Whole Blood Glucose 211H 09/15/20 03:00: White Blood Count [Pending], Red Blood Count [Pending], Hemoglobin [Pending], Hematocrit [Pending], Mean Corpuscular Volume [Pending], Mean Corpuscular Hemoglobin [Pending], Mean Corpuscular Hemoglobin Concent [Pending], Red Cell Distribution Width [Pending], Platelet Count [Pending], Mean Platelet Volume [Pending], Neutrophils (%) (Auto) [Pending], Lymphocytes (%) (Auto) [Pending], Monocytes (%) (Auto) [Pending], Eosinophils (%) (Auto) [Pending], Basophils (%) (Auto) [Pending], Sodium Level [Pending], Potassium Level [Pending], Chloride Level [Pending], Carbon Dioxide Level [Pending], Blood Urea Nitrogen [Pending], Creatinine [Pending], Estimat Glomerular Filtration Rate [Pending], Glucose Level [Pending], Calcium Level [Pending] 09/15/20 05:42: POC Whole Blood Glucose 247H Height (Feet): 5 Height (Inches): 10.00 Weight (Pounds): 218 General Appearance: no apparent distress Neck: normal alignment Cardiovascular: normal rate Respiratory/Chest: decreased breath sounds Abdomen: normal bowel sounds Objective Current Medications Medications (Trade) Dose Ordered Sig/Braed[place] Route PRN Reason Start Time Stop Time Status Last Admin Dose Admin Acetaminophen (Tylenol) 650 mg Q4H PRN ORAL FEVER 08/30/20 23:45 09/29/20 23:44 Acetaminophen/ Hydrocodone Bitart (Burt 5/325) 1 tab Q6H PRN ORAL Severe Pain (Pain Scale 7-10) 09/09/20 12:15 09/16/20 12:14 09/14/20 23:54 Calcium Acetate (Phoslo) 667 mg TIAC ORAL 09/08/20 11:30 12/07/20 11:29 09/15/20 06:21 Chlorhexidine Gluconate (Josiane-Hex 2%) 1 applic DAILY@1999 TOPIC 09/06/20 20:00 12/05/20 19:59 09/14/20 21:24 Dexamethasone (Decadron) 6 mg DAILY ORAL 09/10/20 21:00 09/19/20 09:01 09/14/20 08:54 Dextrose (Dextrose 50%) 25 ml Q30M PRN IV Hypoglycemia 08/30/20 23:45 11/28/20 23:44 Dextrose (Dextrose 50%) 50 ml Q30M PRN IV Hypoglycemia 08/30/20 23:45 11/28/20 23:44 Epoetin Shlomo (Epoetin Shlomo(ESRD on dialysis)) 10,000 unit TUE-TUE-TUE SUBQ 09/08/20 21:00 12/07/20 20:59 09/12/20 21:49 Folic Acid (Folate) 3 mg DAILY ORAL 09/02/20 09:00 10/02/20 08:59 09/14/20 08:54 Heparin Sodium (Porcine) (Heparin 5000 units/ml) 5,000 units EVERY 12 HOURS SUBQ 08/31/20 09:00 10/15/20 08:59 09/14/20 21:25 Insulin Aspart (NovoLOG) BEFORE MEALS AND HS SUBQ 08/31/20 06:30 11/29/20 06:29 09/15/20 06:21 Levothyroxine Sodium (Synthroid) 100 mcg DAILY@0630 ORAL 09/02/20 06:30 10/02/20 06:29 09/15/20 06:21 Metoclopramide HCl (Reglan) 5 mg THREE TIMES A DAY ORAL 08/31/20 13:00 09/30/20 12:59 09/14/20 17:20 Ondansetron HCl (Zofran) 4 mg Q6H PRN IVP Nausea & Vomiting 08/30/20 23:45 09/29/20 23:44 Pantoprazole (Protonix) 40 mg EVERY 12 HOURS ORAL 08/31/20 21:00 09/30/20 20:59 09/14/20 21:24 Pioglitazone HCl (Actos) 15 mg ACBREAKFAST ORAL 09/14/20 06:30 10/14/20 06:29 09/15/20 06:21 Polyethylene Glycol (Miralax) 17 gm DAILYPRN PRN ORAL Constipation 08/30/20 23:45 09/29/20 23:44 Promethazine HCl/ Codeine (Phenergan with Codeine) 5 ml Q6H PRN ORAL cough 08/30/20 23:45 09/29/20 23:44 Theophylline (Theophylline) 80 mg BID ORAL 09/13/20 18:00 12/08/20 13:59 11/22/20 17:20 Assessment/Plan Problem List: (1) Renal failure (ARF), acute on chronic ICD Codes: N17.9 - Acute kidney failure, unspecified; N18.9 - Chronic kidney disease, unspecified SNOMED: 180388550 (2) CAD (coronary artery disease) ICD Codes: I25.10 - Atherosclerotic heart disease of [place] coronary artery wit hout angina pectoris SNOMED: 51256433 (3) Diabetes mellitus ICD Codes: E11.9 - Type 2 diabetes mellitus without complications SNOMED: 83049595 (4) Left bundle branch block (LBBB) ICD Codes: I44.7 - Left bundle-branch block, unspecified SNOMED: 50395507 (5) Hypothyroidism ICD Codes: E03.9 - Hypothyroidism, unspecified SNOMED: 84914090 Status: unchanged Assessment/Plan: no need for basal insulin continue Actos 15 mg daily continue Novolog sliding scale ac / hs continue LT4 100 mcg daily repeat thyroid function Jaek Alexander MD Sep 15, 2020 06:28
--- NOTE | 2020-09-15 06:34 | Hematology/Onc Progress Note ---
Assessment/Plan Assessment/Plan Assessment and Recs: # Anemia of chronic disease due to underlying chronic medical issues, multifactorial v Gi bleed --> Anemia workup has been ordered, rule out gi bleed --> No evidence of hemolysis is noted, peripheral smear has been reviewed. --> Hgb goal >7. Transfuse prn. --> EPOGEN AND IV IRON STARTED, CONTINUE --> Medications have been reviewed --> hgb 7.7-->8-->8.4-->8->8->8.7 --> egd w/ colo 01/15/20 Gastritis, status post biopsy. Total of 11 polyps removed, Internal hemorrhoids. # Thromocytopenia likely related to infection v reactive process, DOES HAVE CIRRHOSIS --> hep and hiv are neg --> imaging abd has been reviewed. noted liver disease, cirrhosis --> peripheral smear noted --> plt 75-->108-->120 # Coagulation defect, multifactorial usually related to poor PO intake versus medications, versus hepatitis v cirrhosis --> administer Vitamin K if patient is bleeding or FFP if the INR is >10 --> hold off on ffp unless active procedure/bleeding, first begin with vit K 10 --> mixing study as needed # Renal failure (ARF), acute on chronic --> ivf as per renal --> renal us reviewed --> improved --> HD as per renal # Hypoglycemia -> endo eval prn # Pleural effusion --> diuresis as needed --> monitor ivf --> HD # Hyperkalemia # Obesity # Dvt ppx heparin sq The timing of this note does not necessarily reflect the time of the patient was seen. Greatly appreciate consultation. Subjective Constitutional: Denies: no symptoms, chills, fever, malaise, weakness, other HEENT: Denies: no symptoms, eye pain, blurred vision, tearing, double vision, ear pain, ear discharge, nose pain, nose congestion, throat pain, throat swelling, mouth pain, mouth swelling, other Cardiovascular: Denies: no symptoms, chest pain, edema, irregular heart rate, lightheadedness, palpitations, syncope, other Respiratory: Denies: no symptoms, cough, shortness of breath, SOB with excertion, SOB at rest, sputum, wheezing, other Gastrointestinal/Abdominal: Denies: no symptoms, abdomen distended, abdominal pain, black stools, tarry stools, blood in stool, constipated, diarrhea, difficulty swallowing, nausea, poor appetite, poor fluid intake, rectal bleeding, vomiting, other Genitourinary: Denies: no symptoms, burning, discharge, frequency, flank pain, hematuria, incontinence, pain, urgency, other Allergies: Coded Allergies: No Known Allergies (Unverified , 10/10/19) Subjective 09/08 labs reviewed, hd as per renal, fluid overload improved, labs noted, with dropping plt 09/09 pending plt count this am, on abx, broad spectrum, no other events 09/10 labs pending, is comfortable, is on 3l nc, no bleeding 09/11 on 5L weaning, no night sweats, meds reviewed 09/12 labs noted, no bleeding, plts improved, meds reviewed 09/14 labs reviewed, meds noted, on hd as per renal permacath in place 1123 labs are pending, on iso for covid19, no bleeding Objective Objective Current Medications Medications (Trade) Dose Ordered Sig/Braeden Route PRN Reason Start Time Stop Time Status Last Admin Dose Admin Acetaminophen (Tylenol) 650 mg Q4H PRN ORAL FEVER 08/30/20 23:45 09/29/20 23:44 Acetaminophen/ Hydrocodone Bitart (Estero 5/325) 1 tab Q6H PRN ORAL Severe Pain (Pain Scale 7-10) 09/09/20 12:15 09/16/20 12:14 09/14/20 23:54 Calcium Acetate (Phoslo) 667 mg TIAC ORAL 09/08/20 11:30 12/07/20 11:29 09/15/20 06:21 Chlorhexidine Gluconate (Josiane-Hex 2%) 1 applic DAILY@1999 TOPIC 09/06/20 20:00 12/05/20 19:59 09/14/20 21:24 Dexamethasone (Decadron) 6 mg DAILY ORAL 09/10/20 21:00 09/19/20 09:01 09/14/20 08:54 Dextrose (Dextrose 50%) 25 ml Q30M PRN IV Hypoglycemia 08/30/20 23:45 11/28/20 23:44 Dextrose (Dextrose 50%) 50 ml Q30M PRN IV Hypoglycemia 08/30/20 23:45 11/28/20 23:44 Epoetin Shlomo (Epoetin Shlomo(ESRD on dialysis)) 10,000 unit TUE-TUE-TUE SUBQ 09/08/20 21:00 12/07/20 20:59 09/12/20 21:49 Folic Acid (Folate) 3 mg DAILY ORAL 09/02/20 09:00 10/02/20 08:59 09/14/20 08:54 Heparin Sodium (Porcine) (Heparin 5000 units/ml) 5,000 units EVERY 12 HOURS SUBQ 08/31/20 09:00 10/15/20 08:59 09/14/20 21:25 Insulin Aspart (NovoLOG) BEFORE MEALS AND HS SUBQ 08/31/20 06:30 11/29/20 06:29 09/15/20 06:21 Levothyroxine Sodium (Synthroid) 100 mcg DAILY@0630 ORAL 09/02/20 06:30 10/02/20 06:29 09/15/20 06:21 Metoclopramide HCl (Reglan) 5 mg THREE TIMES A DAY ORAL 08/31/20 13:00 09/30/20 12:59 09/14/20 17:20 Ondansetron HCl (Zofran) 4 mg Q6H PRN IVP Nausea & Vomiting 08/30/20 23:45 09/29/20 23:44 Pantoprazole (Protonix) 40 mg EVERY 12 HOURS ORAL 08/31/20 21:00 09/30/20 20:59 09/14/20 21:24 Pioglitazone HCl (Actos) 15 mg ACBREAKFAST ORAL 09/14/20 06:30 10/14/20 06:29 09/15/20 06:21 Polyethylene Glycol (Miralax) 17 gm DAILYPRN PRN ORAL Constipation 08/30/20 23:45 09/29/20 23:44 Promethazine HCl/ Codeine (Phenergan with Codeine) 5 ml Q6H PRN ORAL cough 08/30/20 23:45 09/29/20 23:44 Theophylline (Theophylline) 80 mg BID ORAL 09/13/20 18:00 12/08/20 13:59 09/14/20 17:20 Last 24 Hour Vital Signs Date Time Temp Pulse Resp B/P (MAP) Pulse Ox O2 Delivery O2 Flow Rate FiO2 09/15/20 04:00 97.0 68 21 114/62 (79) 97 09/15/20 03:45 68 09/15/20 00:26 76 09/15/20 00:24 98.1 09/15/20 00:00 96.8 71 21 116/70 (85) 99 09/14/20 21:00 Nasal Cannula 2.0 09/14/20 20:00 98.1 70 20 123/68 (86) 95 09/14/20 19:55 68 09/14/20 16:00 72 09/14/20 16:00 97.5 76 20 106/66 (79) 95 09/14/20 12:00 68 09/14/20 12:00 97.5 70 20 105/53 (70) 94 09/14/20 10:48 66 09/14/20 10:48 97.2 71 20 109/60 (76) 97 09/14/20 08:12 Nasal Cannula 2.0 09/14/20 08:00 97.2 64 20 109/60 (76) 97 09/14/20 07:00 64 18 97 Nasal Cannula 2.0 28 09/14/20 07:00 97 Nasal Cannula 2.0 28 09/14/20 04:00 97.2 66 20 108/66 (80) 96 09/14/20 04:00 66 09/14/20 00:00 97.4 68 19 103/61 (75) 94 09/14/20 00:00 69 09/13/20 22:15 97 Nasal Cannula 4.0 36 09/13/20 22:15 65 18 97 Nasal Cannula 2.0 28 09/13/20 21:00 Nasal Cannula 2.0 09/13/20 20:00 97.9 69 19 128/63 (84) 95 09/13/20 20:00 69 09/13/20 16:00 97.5 70 20 120/54 (76) 95 09/13/20 16:00 70 09/13/20 12:00 69 09/13/20 12:00 97.3 71 20 102/56 (71) 94 09/13/20 09:00 Nasal Cannula 2.0 09/13/20 08:00 73 09/13/20 08:00 97.5 70 20 106/56 (73) 95 Intake and Output 09/14/20 09/15/20 19:00 07:00 # Bowel Movements 1 1 Labs Test 09/12/20 06:42 09/12/20 11:23 09/12/20 22:03 09/13/20 06:10 POC Whole Blood Glucose 132 MG/DL (74-106) White Blood Count 14.3 K/UL (4.8-10.8) Red Blood Count 2.89 M/UL (4.20-5.40) Hemoglobin 8.5 G/DL (12.0-16.0) Hematocrit 28.8 % (37.0-47.0) Mean Corpuscular Volume 100 FL (80-99) Mean Corpuscular Hemoglobin 29.5 PG (27.0-31.0) Mean Corpuscular Hemoglobin Concent 29.6 G/DL (32.0-36.0) Red Cell Distribution Width 20.1 % (11.6-14.8) Platelet Count 88 K/UL (150-450) Mean Platelet Volume 8.6 FL (6.5-10.1) Neutrophils (%) (Auto) % (45.0-75.0) Lymphocytes (%) (Auto) % (20.0-45.0) Monocytes (%) (Auto) % (1.0-10.0) Eosinophils (%) (Auto) % (0.0-3.0) Basophils (%) (Auto) % (0.0-2.0) Differential Total Cells Counted 100 Neutrophils % (Manual) 93 % (45-75) Lymphocytes % (Manual) 6 % (20-45) Monocytes % (Manual) 1 % (1-10) Eosinophils % (Manual) 0 % (0-3) Basophils % (Manual) 0 % (0-2) Band Neutrophils 0 % (0-8) Platelet Estimate Decreased Platelet Morphology Normal Hypochromasia 1+ Anisocytosis 3+ Macrocytosis 1+ Erythrocyte Sedimentation Rate 37 MM/HR (0-30) Sodium Level 135 MMOL/L (136-145) Potassium Level 4.0 MMOL/L (3.5-5.1) Chloride Level 99 MMOL/L (98-107) Carbon Dioxide Level 28 MMOL/L (21-32) Anion Gap 9 mmol/L (5-15) Blood Urea Nitrogen 50 mg/dL (7-18) Creatinine 4.4 MG/DL (0.55-1.30) Estimat Glomerular Filtration Rate 9.9 mL/min (>60) Glucose Level 191 MG/DL (74-106) Uric Acid 3.6 MG/DL (2.6-7.2) Calcium Level 8.3 MG/DL (8.5-10.1) Phosphorus Level 4.9 MG/DL (2.5-4.9) Magnesium Level 2.6 MG/DL (1.8-2.4) Total Bilirubin 0.6 MG/DL (0.2-1.0) Aspartate Amino Transf (AST/SGOT) 17 U/L (15-37) Alanine Aminotransferase (ALT/SGPT) 10 U/L (12-78) Alkaline Phosphatase 128 U/L (46-116) C-Reactive Protein, Quantitative 6.1 mg/dL (0.00-0.90) Pro-B-Type Natriuretic Peptide 98929 pg/mL (0-125) Total Protein 6.9 G/DL (6.4-8.2) Albumin 2.9 G/DL (3.4-5.0) Globulin 4.0 g/dL Albumin/Globulin Ratio 0.7 (1.0-2.7) Test 09/13/20 12:17 09/13/20 17:15 09/13/20 21:11 09/14/20 04:15 POC Whole Blood Glucose 177 MG/DL (74-106) 223 MG/DL (74-106) 227 MG/DL (74-106) White Blood Count 15.2 K/UL (4.8-10.8) Red Blood Count 2.95 M/UL (4.20-5.40) Hemoglobin 8.7 G/DL (12.0-16.0) Hematocrit 29.3 % (37.0-47.0) Mean Corpuscular Volume 99 FL (80-99) Mean Corpuscular Hemoglobin 29.6 PG (27.0-31.0) Mean Corpuscular Hemoglobin Concent 29.8 G/DL (32.0-36.0) Red Cell Distribution Width 20.1 % (11.6-14.8) Platelet Count 120 K/UL (150-450) Mean Platelet Volume 8.0 FL (6.5-10.1) Neutrophils (%) (Auto) % (45.0-75.0) Lymphocytes (%) (Auto) % (20.0-45.0) Monocytes (%) (Auto) % (1.0-10.0) Eosinophils (%) (Auto) % (0.0-3.0) Basophils (%) (Auto) % (0.0-2.0) Differential Total Cells Counted 100 Neutrophils % (Manual) 90 % (45-75) Lymphocytes % (Manual) 6 % (20-45) Monocytes % (Manual) 4 % (1-10) Eosinophils % (Manual) 0 % (0-3) Basophils % (Manual) 0 % (0-2) Band Neutrophils 0 % (0-8) Platelet Estimate Decreased Platelet Morphology Normal Polychromasia 1+ Hypochromasia 2+ Anisocytosis 3+ Macrocytosis 1+ Sodium Level 135 MMOL/L (136-145) Potassium Level 4.3 MMOL/L (3.5-5.1) Chloride Level 98 MMOL/L (98-107) Carbon Dioxide Level 25 MMOL/L (21-32) Anion Gap 12 mmol/L (5-15) Blood Urea Nitrogen 60 mg/dL (7-18) Creatinine 5.0 MG/DL (0.55-1.30) Estimat Glomerular Filtration Rate 8.6 mL/min (>60) Glucose Level 178 MG/DL (74-106) Calcium Level 8.4 MG/DL (8.5-10.1) Test 09/14/20 06:15 09/14/20 12:02 09/14/20 16:51 09/14/20 21:24 POC Whole Blood Glucose 204 MG/DL (74-106) 188 MG/DL (74-106) 211 MG/DL (74-106) Test 09/15/20 03:00 09/15/20 05:42 POC Whole Blood Glucose 247 MG/DL (74-106) Height (Feet): 5 Height (Inches): 10.00 Weight (Pounds): 218 Objective ++Derick Hwang MD Sep 15, 2020 06:34
[2020-09-15 06:57] LABS: CALCIUM 8.3 MG/DL (8.5-10.1); CREATININE 4.5 MG/DL (0.55-1.30); POTASSIUM 4.3 MMOL/L (3.5-5.1)
--- NOTE | 2020-09-15 07:00 | Consultation ---
DATE OF CONSULTATION: 09/13/2020 ENDOCRINOLOGY CONSULTATION CONSULTING PHYSICIAN: Ventura Bueno M.D. REFERRING PHYSICIAN: Dyllan King D.O. REASON FOR CONSULTATION: I was asked to see this 70-year-old female with diabets Mellitus_ out of control .Original consult_ performed by Dr. Alexander PERTINENT HISTORY:She has_ COVID positive pneumonia and Type 2 diabete Mellitus.She was on Metformin 500 mg po BID. FH,PH and ROS unremarkable/ PHYSICAL EXAMINATION: GENERAL: The patient is in no acute distress. VITAL SIGNS: Blood pressure 106/56, pulse 70, respiratory rate 18, and temperature _98.0_. HEAD AND NECK: Unremarkable. No jugular venous distention. LUNGS: Clear. HEART: Distant. ABDOMEN: Obese. EXTREMITIES: Trace edema. NEUROLOGIC: Cranial nerves II through XII are grossly intact with toes downgoing to plantar stimulation. LABORATORY DATA: Hemoglobin 8.8, hematocrit 26.8,WBc 5.2, and platelets 176.000_. Sodium 156, potassium 4.1, , glucose _176 mg%. ASSESSMENT: 1.Diabetes Mellitus Type 2 in fair control 2.COVID positive pneumonia PLANS:Resume Metformin 500 mg po BID.Accucchecks QID ac and HS with modeerate sliding scale novolog.Hbha1c in am.. Ventura Bueno M.D. DR: Deloris JOB#: [id number] CC: LEILA
--- NOTE | 2020-09-15 07:22 | Infectious Diseases Prog Note ---
Assessment/Plan 70yo F with: COVID pna, ?from visiting family vs hospital acquired vs very early disease on admission, waiting confirmatory testing Confirmatory testing NEG x1 08/30 Rapid COVID neg 09/10 Rapid COVID neg 09/10 Rapid COVID positive 09/10 COVID PCR NEG 09/11 CXR: 1. New right IJ approach tunneled central venous dual-lumen catheter with tip in the superior cavoatrial region. 2. Persistent bilateral patchy airspace opacities could represent multifocal pneumonia, pulmonary edema, or inflammation. 3. Unchanged cardiomegaly with sternotomy and mediastinal operative findings. 4. Right apical and lateral pleural thickening, similar to prior could represent pleural fluid or pleural thickening. 5. Low lung volumes with bronchovascular crowding. Severe Sepsis Pneumonia Acute hypoxic resp failure- on 2L NC R pleural effusion, transudate -09/03 SP Thoracentesis: Successful ultrasound-guided thoracentesis, yielding 680 milliliters of clear yellow fluid; cx NTD -fluid prot 1.4, glucose 198 -09/01 Chest US: Positive for right pleural effusion Incidental finding of ascites, also previously reporte -08/30 CXR: There is again patchy ill-defined airspace opacities at the right greater than left base with some consolidated appearance again seen on the right. There is now patchy ill-defined opacity at the right upper lung. A small right pleural effusion is suggested. The patient is rotated to the right. Status post median sternotomy again noted. -08/30 & 8 rapid covid PCR neg x2 -08/30 Bcx NTD R/o UTI 09/09 UA 15-20 WBC, UCx NTD, UCx +80-90k VRE (S-linezolid), m/l colonizer Afebrile Leukocytosis, SP -09/02 Bcx NTD -08/31 u/a no pyuria R arm and R leg cellulitis; improving Recent hx of COVID19- pt clarified initial diagnosis was 2 months ago and not 08/25 as per documentation on EMR. VENANCIO on CKD -Renal US: Ascites. Bilateral pleural effusions. Complex right renal cysts of uncertain etiology. This complex cyst is unchanged from the study of 01/12/2020. Mildly atrophic right kidney.Magnetic resonance imaging of the abdomen with gadolinium administration is advised for further evaluation of c omplex right renal cyst. HIV screen neg PMH: HTN dCHF pHTN Ascites Chronic LE edema DM2 c/w neuropathy Iron def anemia Plan: Stop dexamethasone 6mg daily #5 given COVID PCR neg 09/09 SP ceftaroline and levofloxacin #9 (abx d #08/02) 08/31 SP Ceftriaxone #2, Azithromcyin #2 -f/u cx -Monitor CBC/CMP, temperatures -aspiration precautions D/w RN Thank you for consulting [facility]. Will continue to follow along with you. Subjective Allergies: Coded Allergies: No Known Allergies (Unverified , 10/10/19) AF NAD on RA WBC stable at 15 on steroids COVID PCR neg Asking when she can go home Objective Last 24 Hour Vital Signs Date Time Temp Pulse Resp B/P (MAP) Pulse Ox O2 Delivery O2 Flow Rate FiO2 09/15/20 04:00 97.0 68 21 114/62 (79) 97 09/15/20 03:45 68 09/15/20 00:26 76 09/15/20 00:24 98.1 09/15/20 00:00 96.8 71 21 116/70 (85) 99 09/14/20 21:00 Nasal Cannula 2.0 09/14/20 20:00 98.1 70 20 123/68 (86) 95 09/14/20 19:55 68 09/14/20 16:00 72 09/14/20 16:00 97.5 76 20 106/66 (79) 95 09/14/20 12:00 68 09/14/20 12:00 97.5 70 20 105/53 (70) 94 09/14/20 10:48 66 09/14/20 10:48 97.2 71 20 109/60 (76) 97 09/14/20 08:12 Nasal Cannula 2.0 09/14/20 08:00 97.2 64 20 109/60 (76) 97 Height (Feet): 5 Height (Inches): 10.00 Weight (Pounds): 218 Gen: NAD in bed HEENT: NCAT, EOMI, PERRL CV: RRR Pulm: CTAB on RA Abd: Soft, NTND Ext: No c/c/e Neuro: Awake, interactive, pleasant Laboratory Tests Test 09/14/20 12:02 09/14/20 16:51 09/14/20 21:24 09/15/20 03:00 POC Whole Blood Glucose 204 MG/DL (74-106) H 188 MG/DL (74-106) H 211 MG/DL (74-106) H White Blood Count 15.4 K/UL (4.8-10.8) H Red Blood Count 2.93 M/UL (4.20-5.40) L Hemoglobin 8.8 G/DL (12.0-16.0) L Hematocrit 29.5 % (37.0-47.0) L Mean Corpuscular Volume 101 FL (80-99) H Mean Corpuscular Hemoglobin 30.0 PG (27.0-31.0) Mean Corpuscular Hemoglobin Concent 29.8 G/DL (32.0-36.0) L Red Cell Distribution Width 22.1 % (11.6-14.8) H Platelet Count 111 K/UL (150-450) L Mean Platelet Volume 7.8 FL (6.5-10.1) Neutrophils (%) (Auto) % (45.0-75.0) Lymphocytes (%) (Auto) % (20.0-45.0) Monocytes (%) (Auto) % (1.0-10.0) Eosinophils (%) (Auto) % (0.0-3.0) Basophils (%) (Auto) % (0.0-2.0) Neutrophils % (Manual) Pending Lymphocytes % (Manual) Pending Platelet Estimate Pending Platelet Morphology Pending Sodium Level 133 MMOL/L (136-145) L Potassium Level 4.3 MMOL/L (3.5-5.1) Chloride Level 98 MMOL/L (98-107) Carbon Dioxide Level 24 MMOL/L (21-32) Anion Gap 11 mmol/L (5-15) Blood Urea Nitrogen 57 mg/dL (7-18) H Creatinine 4.5 MG/DL (0.55-1.30) H Estimat Glomerular Filtration Rate 9.7 mL/min (>60) Glucose Level 187 MG/DL (74-106) H Calcium Level 8.3 MG/DL (8.5-10.1) L Thyroid Stimulating Hormone (TSH) 7.518 uiU/mL (0.358-3.740) Free Thyroxine 0.67 NG/DL (0.76-1.46) L Test 09/15/20 05:42 POC Whole Blood Glucose 247 MG/DL (74-106) H Current Medications Medications (Trade) Dose Ordered Sig/Braeden Route PRN Reason Start Time Stop Time Status Last Admin Dose Admin Acetaminophen (Tylenol) 650 mg Q4H PRN ORAL FEVER 08/30/20 23:45 09/29/20 23:44 Acetaminophen/ Hydrocodone Bitart (Ventress 5/325) 1 tab Q6H PRN ORAL Severe Pain (Pain Scale 7-10) 09/09/20 12:15 09/16/20 12:14 09/14/20 23:54 Calcium Acetate (Phoslo) 667 mg TIAC ORAL 09/08/20 11:30 12/07/20 11:29 09/15/20 06:21 Chlorhexidine Gluconate (Josiane-Hex 2%) 1 applic DAILY@1999 TOPIC 09/06/20 20:00 12/05/20 19:59 09/14/20 21:24 Dexamethasone (Decadron) 6 mg DAILY ORAL 09/10/20 21:00 09/19/20 09:01 09/14/20 08:54 Dextrose (Dextrose 50%) 25 ml Q30M PRN IV Hypoglycemia 08/30/20 23:45 11/28/20 23:44 Dextrose (Dextrose 50%) 50 ml Q30M PRN IV Hypoglycemia 08/30/20 23:45 11/28/20 23:44 Epoetin Shlomo (Epoetin Shlomo(ESRD on dialysis)) 10,000 unit TUE-TUE-TUE SUBQ 09/08/20 21:00 12/07/20 20:59 09/12/20 21:49 Folic Acid (Folate) 3 mg DAILY ORAL 09/02/20 09:00 10/02/20 08:59 09/14/20 08:54 Heparin Sodium (Porcine) (Heparin 5000 units/ml) 5,000 units EVERY 12 HOURS SUBQ 08/31/20 09:00 10/15/20 08:59 09/14/20 21:25 Insulin Aspart (NovoLOG) BEFORE MEALS AND HS SUBQ 08/31/20 06:30 11/29/20 06:29 09/15/20 06:21 Levothyroxine Sodium (Synthroid) 100 mcg DAILY@0630 ORAL 09/02/20 06:30 10/02/20 06:29 09/15/20 06:21 Metoclopramide HCl (Reglan) 5 mg THREE TIMES A DAY ORAL 08/31/20 13:00 09/30/20 12:59 09/14/20 17:20 Ondansetron HCl (Zofran) 4 mg Q6H PRN IVP Nausea & Vomiting 08/30/20 23:45 09/29/20 23:44 Pantoprazole (Protonix) 40 mg EVERY 12 HOURS ORAL 08/31/20 21:00 09/30/20 20:59 09/14/20 21:24 Pioglitazone HCl (Actos) 15 mg ACBREAKFAST ORAL 09/14/20 06:30 10/14/20 06:29 09/15/20 06:21 Polyethylene Glycol (Miralax) 17 gm DAILYPRN PRN ORAL Constipation 08/30/20 23:45 09/29/20 23:44 Promethazine HCl/ Codeine (Phenergan with Codeine) 5 ml Q6H PRN ORAL cough 08/30/20 23:45 09/29/20 23:44 Theophylline (Theophylline) 80 mg BID ORAL 09/13/20 18:00 12/08/20 13:59 09/14/20 17:20 Nadia Calvin M.D. Sep 15, 2020 07:22
[2020-09-15 08:00] VITALS: BP 103/46
--- NOTE | 2020-09-15 08:48 | Cardiac Electrophysiology PN ---
Assessment/Plan Assessment/Plan 1. Volume overload due to renal failure as creatinine is 3.5. Echo showed EF of 50%. Off Amlodipine. On HD after PermCath placement 09/05. 2. Left bundle-branch block. 3. Diastolic dysfunction. EF 50%. 4. Hyperkalemia. Got Kayexalate and on HD by Dr. Severino. 5. Diabetic nephropathy. 6. Renal failure. BUN/Cr 81/3.8 S/P PermCath and dialysis 7. Hypothyroidism. 8. Iron-deficiency anemia. 9. Right pleural effusion. S/P 800cc Right thoracentesis 09/03/20 DW RN Subjective Subjective S/P Right chest PermCath and HD No CP in SR in NAD. In isolation as Covid was positive on 09/10 Had HD yesterday but still has anasarca Objective Last 24 Hour Vital Signs Date Time Temp Pulse Resp B/P (MAP) Pulse Ox O2 Delivery O2 Flow Rate FiO2 09/15/20 04:00 97.0 68 21 114/62 (79) 97 09/15/20 03:45 68 09/15/20 00:26 76 09/15/20 00:24 98.1 09/15/20 00:00 96.8 71 21 116/70 (85) 99 09/14/20 21:00 Nasal Cannula 2.0 09/14/20 20:00 98.1 70 20 123/68 (86) 95 09/14/20 19:55 68 09/14/20 16:00 72 09/14/20 16:00 97.5 76 20 106/66 (79) 95 09/14/20 12:00 68 09/14/20 12:00 97.5 70 20 105/53 (70) 94 09/14/20 10:48 66 09/14/20 10:48 97.2 71 20 109/60 (76) 97 Intake and Output 09/14/20 09/15/20 19:00 07:00 # Voids 3 # Bowel Movements 1 3 Laboratory Tests Test 09/14/20 12:02 09/14/20 16:51 09/14/20 21:24 09/15/20 03:00 POC Whole Blood Glucose 204 MG/DL (74-106) H 188 MG/DL (74-106) H 211 MG/DL (74-106) H White Blood Count 15.4 K/UL (4.8-10.8) H Red Blood Count 2.93 M/UL (4.20-5.40) L Hemoglobin 8.8 G/DL (12.0-16.0) L Hematocrit 29.5 % (37.0-47.0) L Mean Corpuscular Volume 101 FL (80-99) H Mean Corpuscular Hemoglobin 30.0 PG (27.0-31.0) Mean Corpuscular Hemoglobin Concent 29.8 G/DL (32.0-36.0) L Red Cell Distribution Width 22.1 % (11.6-14.8) H Platelet Count 111 K/UL (150-450) L Mean Platelet Volume 7.8 FL (6.5-10.1) Neutrophils (%) (Auto) % (45.0-75.0) Lymphocytes (%) (Auto) % (20.0-45.0) Monocytes (%) (Auto) % (1.0-10.0) Eosinophils (%) (Auto) % (0.0-3.0) Basophils (%) (Auto) % (0.0-2.0) Differential Total Cells Counted 100 Neutrophils % (Manual) 93 % (45-75) H Lymphocytes % (Manual) 3 % (20-45) L Monocytes % (Manual) 4 % (1-10) Eosinophils % (Manual) 0 % (0-3) Basophils % (Manual) 0 % (0-2) Band Neutrophils 0 % (0-8) Platelet Estimate Decreased L Platelet Morphology Normal Polychromasia 1+ Hypochromasia 2+ Anisocytosis 3+ Macrocytosis 1+ Sodium Level 133 MMOL/L (136-145) L Potassium Level 4.3 MMOL/L (3.5-5.1) Chloride Level 98 MMOL/L (98-107) Carbon Dioxide Level 24 MMOL/L (21-32) Anion Gap 11 mmol/L (5-15) Blood Urea Nitrogen 57 mg/dL (7-18) H Creatinine 4.5 MG/DL (0.55-1.30) H Estimat Glomerular Filtration Rate 9.7 mL/min (>60) Glucose Level 187 MG/DL (74-106) H Calcium Level 8.3 MG/DL (8.5-10.1) L Thyroid Stimulating Hormone (TSH) 7.518 uiU/mL (0.358-3.740) Free Thyroxine 0.67 NG/DL (0.76-1.46) L Hepatitis B Surface Antigen Pending Hepatitis B Core IgM Antibody Pending Hepatitis C Antibody Pending Test 09/15/20 05:42 POC Whole Blood Glucose 247 MG/DL (74-106) H Objective HEAD AND NECK: No JVD. LUNGS: Coarse rhonchi, bibasilar rales.Right chest PermCath CARDIOVASCULAR: Regular S1 and S2 with no gallop. ABDOMEN: Soft. EXTREMITIES: Bilateral 2+ pitting edema and bandage on both legs Sina Paulson MD Sep 15, 2020 08:48
[2020-09-15] MEDS: Theophylline 80mg/15ml ORAL SCH ×2 (09:41→18:15)
[2020-09-15] MEDS: Heparin 5000 units/ml inj SUBQ SCH ×2 (09:44→20:17)
--- NOTE | 2020-09-15 10:13 | Pulmonology Progress Note ---
Subjective ROS Limited/Unobtainable: No Interval Events: no new events Allergies: Coded Allergies: No Known Allergies (Unverified , 10/10/19) All Systems: reviewed and negative except above Objective Last 24 Hour Vital Signs Date Time Temp Pulse Resp B/P (MAP) Pulse Ox O2 Delivery O2 Flow Rate FiO2 09/15/20 04:00 97.0 68 21 114/62 (79) 97 09/15/20 03:45 68 09/15/20 00:26 76 09/15/20 00:24 98.1 09/15/20 00:00 96.8 71 21 116/70 (85) 99 09/14/20 21:00 Nasal Cannula 2.0 09/14/20 20:00 98.1 70 20 123/68 (86) 95 09/14/20 19:55 68 09/14/20 16:00 72 09/14/20 16:00 97.5 76 20 106/66 (79) 95 09/14/20 12:00 68 09/14/20 12:00 97.5 70 20 105/53 (70) 94 09/14/20 10:48 66 09/14/20 10:48 97.2 71 20 109/60 (76) 97 Intake and Output 09/14/20 09/15/20 19:00 07:00 # Voids 3 # Bowel Movements 1 3 General Appearance: WD/WN HEENT: normocephalic, atraumatic Respiratory: chest wall non-tender, lungs clear, normal breath sounds Cardiovascular: normal peripheral pulses, normal rate Abdomen: normal bowel sounds, soft, non tender, no scars Extremities: no cyanosis Skin: no rash Neurologic: investment counselor II-XII grossly normal Lymphatic: no neck adenopathy Laboratory Tests 09/14/20 12:02: POC Whole Blood Glucose 204H 09/14/20 16:51: POC Whole Blood Glucose 188H 09/14/20 21:24: POC Whole Blood Glucose 211H 09/15/20 03:00: White Blood Count 15.4H, Red Blood Count 2.93L, Hemoglobin 8.8L, Hematocrit 29.5L, Mean Corpuscular Volume 101H, Mean Corpuscular Hemoglobin 30.0, Mean Corpuscular Hemoglobin Concent 29.8L, Red Cell Distribution Width 22.1H, Platelet Count 111L, Mean Platelet Volume 7.8, Neutrophils (%) (Auto) , Lymphocytes (%) (Auto) , Monocytes (%) (Auto) , Eosinophils (%) (Auto) , Basophils (%) (Auto) , Differential Total Cells Counted 100, Neutrophils % (Manual) 93H, Lymphocytes % (Manual) 3L, Monocytes % (Manual) 4, Eosinophils % (Manual) 0, Basophils % (Manual) 0, Band Neutrophils 0, Platelet Estimate DecreasedL, Platelet Morphology Normal, Polychromasia 1+, Hypochromasia 2+, Anisocytosis 3+, Macrocytosis 1+, Sodium Level 133L, Potassium Level 4.3, Chlor cherry Level 98, Carbon Dioxide Level 24, Anion Gap 11, Blood Urea Nitrogen 57H, Creatinine 4.5H, Estimat Glomerular Filtration Rate 9.7, Glucose Level 187H, Calcium Level 8.3L, Thyroid Stimulating Hormone (TSH) 7.518H, Free Thyroxine 0.67L, Hepatitis B Surface Antigen [Pending], Hepatitis B Core IgM Antibody [Pending], Hepatitis C Antibody [Pending] 09/15/20 05:42: POC Whole Blood Glucose 247H Current Medications Medications (Trade) Dose Ordered Sig/Braeden Route PRN Reason Start Time Stop Time Status Last Admin Dose Admin Acetaminophen (Tylenol) 650 mg Q4H PRN ORAL FEVER 08/30/20 23:45 09/29/20 23:44 Acetaminophen/ Hydrocodone Bitart (Bernice 5/325) 1 tab Q6H PRN ORAL Severe Pain (Pain Scale 7-10) 09/09/20 12:15 09/16/20 12:14 09/14/20 23:54 Calcium Acetate (Phoslo) 667 mg TIAC ORAL 09/08/20 11:30 12/07/20 11:29 09/15/20 06:21 Chlorhexidine Gluconate (Josiane-Hex 2%) 1 applic DAILY@1999 TOPIC 09/06/20 20:00 12/05/20 19:59 09/14/20 21:24 Dextrose (Dextrose 50%) 25 ml Q30M PRN IV Hypoglycemia 08/30/20 23:45 11/28/20 23:44 Dextrose (Dextrose 50%) 50 ml Q30M PRN IV Hypoglycemia 08/30/20 23:45 11/28/20 23:44 Epoetin Shlomo (Epoetin Shlomo(ESRD on dialysis)) 10,000 unit TUE-TUE-TUE SUBQ 09/08/20 21:00 12/07/20 20:59 09/12/20 21:49 Folic Acid (Folate) 3 mg DAILY ORAL 09/02/20 09:00 10/02/20 08:59 09/15/20 09:41 Heparin Sodium (Porcine) (Heparin 5000 units/ml) 5,000 units EVERY 12 HOURS SUBQ 08/31/20 09:00 10/15/20 08:59 09/15/20 09:44 Insulin Aspart (NovoLOG) BEFORE MEALS AND HS SUBQ 08/31/20 06:30 11/29/20 06:29 09/15/20 06:21 Levothyroxine Sodium (Synthroid) 100 mcg DAILY@0630 ORAL 09/02/20 06:30 10/02/20 06:29 09/15/20 06:21 Metoclopramide HCl (Reglan) 5 mg THREE TIMES A DAY ORAL 08/31/20 13:00 09/30/20 12:59 09/15/20 09:41 Ondansetron HCl (Zofran) 4 mg Q6H PRN IVP Nausea & Vomiting 08/30/20 23:45 09/29/20 23:44 Pantoprazole (Protonix) 40 mg EVERY 12 HOURS ORAL 08/31/20 21:00 09/30/20 20:59 09/15/20 09:42 Pioglitazone HCl (Actos) 15 mg ACBREAKFAST ORAL 09/14/20 06:30 10/14/20 06:29 09/15/20 06:21 Polyethylene Glycol (Miralax) 17 gm DAILYPRN PRN ORAL Constipation 08/30/20 23:45 09/29/20 23:44 Promethazine HCl/ Codeine (Phenergan with Codeine) 5 ml Q6H PRN ORAL cough 08/30/20 23:45 09/29/20 23:44 Theophylline (Theophylline) 80 mg BID ORAL 09/13/20 18:00 12/08/20 13:59 09/15/20 09:41 Assessment/Plan Problems: (1) 2019 novel coronavirus disease (COVID-19) (2) Acute on chronic diastolic (congestive) heart failure (3) Gout (4) Renal failure (ARF), acute on chronic (5) Diabetes mellitus (6) Left bundle branch block (LBBB) (7) Cardiac left ventricular ejection fraction greater than 40 percent (8) Grade I diastolic dysfunction (9) History of hypertension Assessment/Plan doing better COVID positive sitting up in the chair f/u ID recommendations f/u inflammatory markers. O2 titrate to keep sat > 92%, currently down to O2 via NC thoracentesis done, 600 cc removed from right side. DVT prophylaxis\ dc planning Tiana Cool MD Sep 15, 2020 10:13
--- NOTE | 2020-09-15 10:34 | Nephrology Progress Note ---
Assessment/Plan Problem List: (1) Renal failure (ARF), acute on chronic (2) Hyperkalemia (3) Hypothyroidism (4) Acute on chronic diastolic (congestive) heart failure (5) Diabetic nephropathy (6) Pneumonia Assessment: Leukocytosis, abnormal chest x-ray (7) Anemia Assessment 1) Renal failure (ARF), acute on chronic (2) Diabetes mellitus (3) Hypoglycemia (4) Hyperkalemia (5) Diabetic nephropathy (6) H/o Pleural effusion (7) Morbid obesity (8) Low Iron Anemia (9) HypoThyroidism Plan September 15: Patient was dialyzed yesterday. Status quo. Labs reviewed. Next hemodialysis tomorrow. September 14: Patient was dialyzed September 12. Due for dialysis today. Labs reviewed. Continue per consultants. September 13: Patient was dialyzed yesterday. Medication reviewed. Labs reviewed. White blood cells rising. Currently on dexamethasone IV for COVID-19 will dialyze again tomorrow September 12: Patient due for dialysis and ultrafiltration today. Labs reviewed. Medication list reviewed. Continue per consultants. September 11: Patient dialyzed yesterday. Labs reviewed. Patient is now COVID- 19 test positive. On isolation. Will dialyze again tomorrow. Continue per consultants. September 10: Patient due for dialysis and ultrafiltration today. Labs reviewed. And medication list reviewed. September 09: Patient was dialyzed yesterday. Due for dialysis and ultrafiltration tomorrow. Will start theophylline for although lumbar diet and also improvement of the heart rate. Recheck TSH in a.m. Continue as is. DC Chan catheter. September 08: Patient due for dialysis and ultrafiltration today. Labs reviewed. PhosLo given. Continue as is. September 07: Patient was dialyzed 2 days in a row. Ultra filtrated 3 L a day. Patient continues to be edematous however much less. Will dialyze again tomorrow with ultrafiltration. Will monitor renal parameters. September 06: Patient was dialyzed yesterday. Ultrafiltration was done. Patient remains edematous. Will do another dialysis and aim 3 L fluid removal as tolerates. Discontinue IV Lasix and oral hydralazine. Will adjust blood pressure medication as needed. Discussed with RN, antibiotics intravenously if possible should be changed to oral since there is no IV line available. 1 dose of Venofer 200 mg ordered to be given during dialysis. Subcutaneous Epogen ordered for anemia. September 05: New 24-hour urine suggestive of creatinine clearance of 3. Patient due for insertion of dialysis catheter. Hemodialysis and ultrafiltration after insertion of catheter. September 04: New 24-hour urine test is in process. Discussed with RN. Patient was short of breath overnight. ABG ordered. 1 dose of Zaroxolyn ordered. Patient has fluid overload, and need ultrafiltration. Blood cultures negative. Leukocytosis resolved. Will order placement of permacath and dialysis and ultrafiltration. September 03: The 24-hour urine results appears to be an error in view of total volume compared to intake and output records. Today's labs reviewed. Serum creatinine higher. Talk to the nursing charge of the floor and will order another 24-hour urine collection. Meanwhile continue per ID treatment for UTI and leukocytosis. Dexamethasone on the medication list was questioned. Patient may require dialysis if continues to have worsening renal parameters. September 02: Consent for dialysis catheter is taken. Catheter placement deferred due to leukocytosis. Surveillance blood culture ordered. Urine culture ordered. Blood pressure medication adjusted. 24-hour urine for crea tinine clearance and total protein pending. Previously: Chan Cath 24 H CrCl and total protein ordered Off IV fluids, on IV Lasix Adjust BP meds Previous 2D echocardiogram ejection fraction is reported to 50% Previous Kidney ultrasound noted. Current kidney ultrasound results below Anemia work-up As needed Kayexalate for high potassium Keep blood pressure and blood sugar in check Monitor renal parameters Requires HD treatment [facility] KIDNEY IMPRESSION: 1. Ascites. 2. Bilateral pleural effusions. 3. Complex right renal cysts of uncertain etiology. This complex cyst is unchanged from the study of 01/12/2020. 4. Mildly atrophic right kidney. 5. Magnetic resonance imaging of the abdomen with gadolinium administration is advised for further evaluation of complex right renal cyst. Subjective ROS Limited/Unobtainable: No Constitutional: Reports: malaise Objective Objective Last 24 Hour Vital Signs Date Time Temp Pulse Resp B/P (MAP) Pulse Ox O2 Delivery O2 Flow Rate FiO2 09/15/20 04:00 97.0 68 21 114/62 (79) 97 09/15/20 03:45 68 09/15/20 00:26 76 09/15/20 00:24 98.1 09/15/20 00:00 96.8 71 21 116/70 (85) 99 09/14/20 21:00 Nasal Cannula 2.0 09/14/20 20:00 98.1 70 20 123/68 (86) 95 09/14/20 19:55 68 09/14/20 16:00 72 09/14/20 16:00 97.5 76 20 106/66 (79) 95 09/14/20 12:00 68 09/14/20 12:00 97.5 70 20 105/53 (70) 94 09/14/20 10:48 66 09/14/20 10:48 97.2 71 20 109/60 (76) 97 Intake and Output 09/14/20 09/15/20 19:00 07:00 # Voids 3 # Bowel Movements 1 3 Current Medications Medications (Trade) Dose Ordered Sig/[place] Route PRN Reason Start Time Stop Time Status Last Admin Dose Admin Acetaminophen (Tylenol) 650 mg Q4H PRN ORAL FEVER 08/30/20 23:45 09/29/20 23:44 Acetaminophen/ Hydrocodone Bitart ([place] 5/325) 1 tab Q6H PRN ORAL Severe Pain (Pain Scale 7-10) 09/09/20 12:15 09/16/20 12:14 09/14/20 23:54 Calcium Acetate (Phoslo) 667 mg TIAC ORAL 09/08/20 11:30 12/07/20 11:29 09/15/20 06:21 Chlorhexidine Gluconate (Josiane-Hex 2%) 1 applic DAILY@2000 TOPIC 09/06/20 20:00 12/05/20 19:59 09/14/20 21:24 Dextrose (Dextrose 50%) 25 ml Q30M PRN IV Hypoglycemia 08/30/20 23:45 11/28/20 23:44 Dextrose (Dextrose 50%) 50 ml Q30M PRN IV Hypoglycemia 08/30/20 23:45 11/28/20 23:44 Epoetin Shlomo (Epoetin Shlomo(ESRD on dialysis)) 10,000 unit TUE-TUE-TUE SUBQ 09/08/20 21:00 12/07/20 20:59 09/12/20 21:49 Folic Acid (Folate) 3 mg DAILY ORAL 09/02/20 09:00 10/02/20 08:59 09/15/20 09:41 Heparin Sodium (Porcine) (Heparin 5000 units/ml) 5,000 units EVERY 12 HOURS SUBQ 08/31/20 09:00 10/15/20 08:59 09/15/20 09:44 Insulin Aspart (NovoLOG) BEFORE MEALS AND HS SUBQ 08/31/20 06:30 11/29/20 06:29 09/15/20 06:21 Levothyroxine Sodium (Synthroid) 100 mcg DAILY@0630 ORAL 09/02/20 06:30 10/02/20 06:29 09/15/20 06:21 Metoclopramide HCl (Reglan) 5 mg THREE TIMES A DAY ORAL 08/31/20 13:00 09/30/20 12:59 09/15/20 09:41 Ondansetron HCl (Zofran) 4 mg Q6H PRN IVP Nausea & Vomiting 08/30/20 23:45 09/29/20 23:44 Pantoprazole (Protonix) 40 mg EVERY 12 HOURS ORAL 08/31/20 21:00 09/30/20 20:59 09/15/20 09:42 Pioglitazone HCl (Actos) 15 mg ACBREAKFAST ORAL 09/14/20 06:30 10/14/20 06:29 09/15/20 06:21 Polyethylene Glycol (Miralax) 17 gm DAILYPRN PRN ORAL Constipation 08/30/20 23:45 09/29/20 23:44 Promethazine HCl/ Codeine (Phenergan with Codeine) 5 ml Q6H PRN ORAL cough 08/30/20 23:45 09/29/20 23:44 Theophylline (Theophylline) 80 mg BID ORAL 09/13/20 18:00 12/08/20 13:59 09/15/20 09:41 Laboratory Tests 09/14/20 12:02: POC Whole Blood Glucose 204H 09/14/20 16:51: POC Whole Blood Glucose 188H 09/14/20 21:24: POC Whole Blood Glucose 211H 09/15/20 03:00: White Blood Count 15.4H, Red Blood Count 2.93L, Hemoglobin 8.8L, Hematocrit 29.5L, Mean Corpuscular Volume 101H, Mean Corpuscular Hemoglobin 30.0, Mean Corpuscular Hemoglobin Concent 29.8L, Red Cell Distribution Width 22.1H, Platelet Count 111L, Mean Platelet Volume 7.8, Neutrophils (%) (Auto) , Lymphocytes (%) (Auto) , Monocytes (%) (Auto) , Eosinophils (%) (Auto) , Basophils (%) (Auto) , Differential Total Cells Counted 100, Neutrophils % (Manual) 93H, Lymphocytes % (Manual) 3L, Monocytes % (Manual) 4, Eosinophils % (Manual) 0, Basophils % (Manual) 0, Band Neutrophils 0, Platelet Estimate DecreasedL, Platelet Morphology Normal, Polychromasia 1+, Hypochromasia 2+, Anisocytosis 3+, Macrocytosis 1+, Sodium Level 133L, Potassium Level 4.3, Chloride Level 98, Carbon Dioxide Level 24, Anion Gap 11, Blood Urea Nitrogen 57H, Creatinine 4.5H, Estimat Glomerular Filtration Rate 9.7, Glucose Level 187H , Calcium Level 8.3L, Thyroid Stimulating Hormone (TSH) 7.518H, Free Thyroxine 0.67L, Hepatitis B Surface Antigen [Pending], Hepatitis B Core IgM Antibody [Pending], Hepatitis C Antibody [Pending] 09/15/20 05:42: POC Whole Blood Glucose 247H Height (Feet): 5 Height (Inches): 10.00 Weight (Pounds): 218 General Appearance: no apparent distress Cardiovascular: normal rate Respiratory/Chest: decreased breath sounds Abdomen: soft Extremities: moderate edema Jay Severino MD Sep 15, 2020 10:34
[2020-09-15 12:00] VITALS: BP 104/55
[2020-09-15] MEDS ORDERED: Milk of Magnesia 30ml Ud ORAL SCH (12:45)
--- NOTE | 2020-09-15 13:37 | Surgery Progress Note ---
Surgery Progress Note Subjective Additional Comments doing well eating well no complaints no n/v/f/c constipated Objective Last 24 Hour Vital Signs Date Time Temp Pulse Resp B/P (MAP) Pulse Ox O2 Delivery O2 Flow Rate FiO2 09/15/20 04:00 97.0 68 21 114/62 (79) 97 09/15/20 03:45 68 09/15/20 00:26 76 09/15/20 00:24 98.1 09/15/20 00:00 96.8 71 21 116/70 (85) 99 09/14/20 21:00 Nasal Cannula 2.0 09/14/20 20:00 98.1 70 20 123/68 (86) 95 09/14/20 19:55 68 09/14/20 16:00 72 09/14/20 16:00 97.5 76 20 106/66 (79) 95 I&O Intake and Output 09/14/20 09/15/20 19:00 07:00 # Voids 3 # Bowel Movements 1 3 Cardiovascular: RSR Respiratory: clear, decreased breath sounds Abdomen: soft, distended, non-tender, decreased bowel sounds Extremities: no edema, no tenderness, no cyanosis Laboratory Tests Test 09/14/20 16:51 09/14/20 21:24 09/15/20 03:00 09/15/20 05:42 POC Whole Blood Glucose 188 MG/DL (74-106) H 211 MG/DL (74-106) H 247 MG/DL (74-106) H White Blood Count 15.4 K/UL (4.8-10.8) H Red Blood Count 2.93 M/UL (4.20-5.40) L Hemoglobin 8.8 G/DL (12.0-16.0) L Hematocrit 29.5 % (37.0-47.0) L Mean Corpuscular Volume 101 FL (80-99) H Mean Corpuscular Hemoglobin 30.0 PG (27.0-31.0) Mean Corpuscular Hemoglobin Concent 29.8 G/DL (32.0-36.0) L Red Cell Distribution Width 22.1 % (11.6-14.8) H Platelet Count 111 K/UL (150-450) L Mean Platelet Volume 7.8 FL (6.5-10.1) Neutrophils (%) (Auto) % (45.0-75.0) Lymphocytes (%) (Auto) % (20.0-45.0) Monocytes (%) (Auto) % (1.0-10.0) Eosinophils (%) (Auto) % (0.0-3.0) Basophils (%) (Auto) % (0.0-2.0) Differential Total Cells Counted 100 Neutrophils % (Manual) 93 % (45-75) H Lymphocytes % (Manual) 3 % (20-45) L Monocytes % (Manual) 4 % (1-10) Eosinophils % (Manual) 0 % (0-3) Basophils % (Manual) 0 % (0-2) Band Neutrophils 0 % (0-8) Platelet Estimate Decreased L Platelet Morphology Normal Polychromasia 1+ Hypochromasia 2+ Anisocytosis 3+ Macrocytosis 1+ Sodium Level 133 MMOL/L (136-145) L Potassium Level 4.3 MMOL/L (3.5-5.1) Chloride Level 98 MMOL/L (98-107) Carbon Dioxide Level 24 MMOL/L (21-32) Anion Gap 11 mmol/L (5-15) Blood Urea Nitrogen 57 mg/dL (7-18) H Creatinine 4.5 MG/DL (0.55-1.30) H Estimat Glomerular Filtration Rate 9.7 mL/min (>60) Glucose Level 187 MG/DL (74-106) H Calcium Level 8.3 MG/DL (8.5-10.1) L Thyroid Stimulating Hormone (TSH) 7.518 uiU/mL (0.358-3.740) Free Thyroxine 0.67 NG/DL (0.76-1.46) L Hepatitis B Surface Antigen Pending Hepatitis B Core IgM Antibody Pending Hepatitis C Antibody Pending Test 09/15/20 12:26 POC Whole Blood Glucose 220 MG/DL (74-106) H Plan Problems: (1) Acute on chronic diastolic (congestive) heart failure (2) Anemia (3) Acute respiratory failure Assessment & Plan: Large right pleural effusion persists, unchanged. Bilateral interstitial and airspace edema, cardiomegaly persists, probably unchanged allowing for differences in technique and inspiration (4) ACS (acute coronary syndrome) (5) History of hypertension (6) Moderate pulmonary arterial systolic hypertension (7) Left bundle branch block (LBBB) (8) Diabetes mellitus (9) Diabetic nephropathy (10) Renal failure (ARF), acute on chronic (11) Hyperkalemia (12) Bacteremia (13) CAD (coronary artery disease) (14) Hypothyroidism (15) Cardiac left ventricular ejection fraction greater than 40 percent (16) Grade I diastolic dysfunction (17) UTI (urinary tract infection) (18) Ulcers of both lower legs (19) Open wounds involving multiple regions of lower extremity Assessment & Plan: Patient identified admission having bilateral lower extremity edema open wounds as well as necrotic ulcerations. Patient states she has had this for some time now and acutely worsening as well. Bilateral lower leg wounds do to blisters from edema. Right medial lower leg wound 2.1x4.2x0.2 dark brown scab . Right anterior lower leg wound 5.6x5.3x0.2 pink wound bed. Right distal anterior lower leg 4.0x6.0x0.2 pink wound bed . Large amount serous drainage right leg wounds , Xeroform ,gauze,abd pad and kerlix applied change every shift. Left lower leg wound 3.7x5.0x0.3 100% green slough large amount serous drainage noted with small blisters ifeoma wound, Thera Honey, gauze,abd pad and kerlix applied, change every shift. Local wound care plan initiate Nutritional optimization Turn every 2 hours Elevate extremities Thank you will follow recommendations Right deep veins: Unremarkable. No DVT in the right common femoral, femoral, proximal deep femoral or popliteal veins. The veins demonstrate normal color flow, are normally compressible, with normal phasic flow and/or augmentation response. Right superficial veins: Unremarkable. No thrombus in the visualized right great saphenous vein. Left deep veins: Unremarkable. No DVT in the left common femoral, femoral, proximal deep femoral or popliteal veins. The veins demonstrate normal color flow, are normally compressible, with normal phasic flow and/or augmentation response. Left superficial veins: Unremarkable. No thrombus in the visualized left great saphenous vein. Soft tissues: No acute findings. No popliteal cyst. IMPRESSION: Normal bilateral lower extremity duplex venous ultrasound. DAILY ESTIMATED NEEDS: Needs based on ARF, now HD 65.7kg abw 25-30 kcals/kg 3177-1680 total kcals 1.25-1.8 g protein/kg 82-118 g total protein Fluid per MD, HD pending NUTRITION DIAGNOSIS: Increased pro needs r/t renal dysfunction as evidenced by pt w/ ARF, w/ now pending HD, K on adm (5.8), elev BUN (81), elev Creat (3.8), elev phos and mg. CURRENT DIET:Renal/ CCHO MED PO DIET RECOMMENDATIONS: Renal / CCHO LOW diet + high pro snacks in b/w meals ADDITIONAL RECOMMENDATIONS: 1) Maintain calibrated bed scale wts 2) High pro snacks in b/w meals 3) Rec WC eval-> add nephrovite 1 tab daily Vit C per nephro (20) Pneumonia (21) Gout (22) 2019 novel coronavirus disease (COVID-19) Assessment & Plan: +++ during hospitalization on tx isolation (23) COVID-19 Additional Comments given enema given milk of Omar Cole Sep 15, 2020 13:37
[2020-09-15] MEDS ORDERED: Fleet's Mineral Oil Enema RECTAL SCH (14:00)
[2020-09-15 16:00] VITALS: BP 99/58
--- NOTE | 2020-09-15 16:32 | General Progress Note ---
Subjective ROS Limited/Unobtainable: Yes Allergies: Coded Allergies: No Known Allergies (Unverified , 10/10/19) Objective Last 24 Hour Vital Signs Date Time Temp Pulse Resp B/P (MAP) Pulse Ox O2 Delivery O2 Flow Rate FiO2 09/15/20 12:00 69 09/15/20 12:00 97.6 71 20 104/55 (71) 95 09/15/20 08:00 97.5 74 20 103/46 (65) 95 09/15/20 04:00 97.0 68 21 114/62 (79) 97 09/15/20 03:45 68 09/15/20 00:26 76 09/15/20 00:24 98.1 09/15/20 00:00 96.8 71 21 116/70 (85) 99 09/14/20 21:00 Nasal Cannula 2.0 09/14/20 20:00 98.1 70 20 123/68 (86) 95 09/14/20 19:55 68 Intake and Output 09/14/20 09/15/20 19:00 07:00 # Voids 3 # Bowel Movements 1 3 Laboratory Tests 09/14/20 16:51: POC Whole Blood Glucose 188H 09/14/20 21:24: POC Whole Blood Glucose 211H 09/15/20 03:00: White Blood Count 15.4H, Red Blood Count 2.93L, Hemoglobin 8.8L, Hematocrit 29. 5L, Mean Corpuscular Volume 101H, Mean Corpuscular Hemoglobin 30.0, Mean Corpuscular Hemoglobin Concent 29.8L, Red Cell Distribution Width 22.1H, Platelet Count 111L, Mean Platelet Volume 7.8, Neutrophils (%) (Auto) , Lymphocytes (%) (Auto) , Monocytes (%) (Auto) , Eosinophils (%) (Auto) , Basophils (%) (Auto) , Differential Total Cells Counted 100, Neutrophils % (Manual) 93H, Lymphocytes % (Manual) 3L, Monocytes % (Manual) 4, Eosinophils % (Manual) 0, Basophils % (Manual) 0, Band Neutrophils 0, Platelet Estimate DecreasedL, Platelet Morphology Normal, Polychromasia 1+, Hypochromasia 2+, Anisocytosis 3+, Macrocytosis 1+, Sodium Level 133L, Potassium Level 4.3, Chloride Level 98, Carbon Dioxide Level 24, Anion Gap 11, Blood Urea Nitrogen 57H, Creatinine 4.5H, Estimat Glomerular Filtration Rate 9.7, Glucose Level 187H , Calcium Level 8.3L, Thyroid Stimulating Hormone (TSH) 7.518H, Free Thyroxine 0.67L, Hepatitis B Surface Antigen [Pending], Hepatitis B Core IgM Antibody [Pending], Hepatitis C Antibody [Pending] 09/15/20 05:42: POC Whole Blood Glucose 247H 09/15/20 12:26: POC Whole Blood Glucose 220H Height (Feet): 5 Height (Inches): 10.00 Weight (Pounds): 218 Assessment/Plan Problem List: (1) Anemia ICD Codes: D64.9 - Anemia, unspecified SNOMED: 593000807 (2) Ulcers of both lower legs ICD Codes: L97.919 - Non-pressure chronic ulcer of unspecified part of right lower leg with unspecified severity; L97.929 - Non-pressure chronic ulcer of unspecified part of left lower leg with unspecified severity SNOMED: 24990039, 672857283 (3) Open wounds involving multiple regions of lower extremity ICD Codes: S81.809A - Unspecified open wound, unspecified lower leg, initial encounter SNOMED: 937899062 (4) Pneumonia ICD Codes: J18.9 - Pneumonia, unspecified organism SNOMED: 414213724 (5) History of hypertension ICD Codes: Z86.79 - Personal history of other diseases of the circulatory system SNOMED: 172350928 (6) Diabetes mellitus ICD Codes: E11.9 - Type 2 diabetes mellitus without complications SNOMED: 07472386 (7) Renal failure (ARF), acute on chronic ICD Codes: N17.9 - Acute kidney failure, unspecified; N18.9 - Chronic kidney disease, unspecified SNOMED: 729171023 (8) Hyperkalemia ICD Codes: E87.5 - Hyperkalemia SNOMED: 27666595 (9) CAD (coronary artery disease) ICD Codes: I25.10 - Atherosclerotic heart disease of [place] coronary artery without angina pectoris SNOMED: 98130672 (10) Hypothyroidism ICD Codes: E03.9 - Hypothyroidism, unspecified SNOMED: 89704879 (11) Cardiac left ventricular ejection fraction greater than 40 percent ICD Codes: R94.30 - Abnormal result of cardiovascular function study, unspecified SNOMED: 560045573 (12) Grade I diastolic dysfunction ICD Codes: I51.9 - Heart disease, unspecified SNOMED: 4257582 Status: unchanged Assessment/Plan: chf no sob cad lyte abnormality hypothyroidis reviewed chart and labs afebrile Tj Suazo MD Sep 15, 2020 16:32
--- NOTE | 2020-09-15 17:59 | Diagnostic Imaging Report ---
Indication: Shortness of breath Technique: One view of the chest Comparison: 09/11/2020 Findings: Again demonstrated is a tunneled dialysis catheter. Again demonstrated is a right pleural effusion and bilateral interstitial and airspace edema, both slightly increased from the prior study. The heart remains enlarged. Impression: Slightly increased bilateral interstitial and airspace edema increased right pleural fluid, over 4 days
[2020-09-15] MEDS: HYDROcodone/Acetamin 5/325 tab ORAL PRN (18:15)
[2020-09-15 20:00] VITALS: BP 112/62
[2020-09-15] MEDS: Dyna-Hex 2% Top Sol 2oz TOPIC SCH (20:15)
[2020-09-15] MEDS: Epoetin Alfa-EPBX(ESRD on dialysis)10,000 unit/ml vial SUBQ SCH (20:34)
[2020-09-16] VITALS (7 sets, daily range): BP systolic 93–112; BP diastolic 38–70
[2020-09-16] MEDS: HYDROcodone/Acetamin 5/325 tab ORAL PRN (03:49)
--- NOTE | 2020-09-16 06:24 | General Progress Note ---
Subjective Allergies: Coded Allergies: No Known Allergies (Unverified , 10/10/19) All Systems: reviewed and negative except above Subjective events noted - interval notes reviewed no longer on dexamethasone TSH improved from 9 to 7 Item Value Date Time Bedside Blood Glucose 157 mg/dl H 09/15/20 2100 Bedside Blood Glucose 164 mg/dl H 09/15/20 1818 Bedside Blood Glucose 220 mg/dl H 09/15/20 1228 Bedside Blood Glucose 247 mg/dl H 09/15/20 0630 Objective Last 24 Hour Vital Signs Date Time Temp Pulse Resp B/P (MAP) Pulse Ox O2 Delivery O2 Flow Rate FiO2 09/16/20 04:19 97.9 09/16/20 00:00 70 09/16/20 00:00 97.9 73 20 112/61 (78) 94 09/15/20 21:00 Nasal Cannula 2.0 09/15/20 20:12 73 18 96 Nasal Cannula 2.0 28 09/15/20 20:12 96 Nasal Cannula 2.0 28 09/15/20 20:00 73 09/15/20 20:00 97.7 73 18 112/62 (79) 95 09/15/20 18:45 98.1 09/15/20 16:00 98.1 73 20 99/58 (72) 95 09/15/20 16:00 74 09/15/20 12:00 69 09/15/20 12:00 97.6 71 20 104/55 (71) 95 09/15/20 09:00 Nasal Cannula 2.0 09/15/20 08:00 97.5 74 20 103/46 (65) 95 Intake and Output 09/15/20 09/16/20 19:00 07:00 Intake Total 200 ml Balance 200 ml Intake Oral 200 ml # Bowel Movements 2 1 Laboratory Tests 09/15/20 12:26: POC Whole Blood Glucose 220H 09/15/20 18:04: POC Whole Blood Glucose 164H 09/15/20 20:27: POC Whole Blood Glucose 157H Height (Feet): 5 Height (Inches): 10.00 Weight (Pounds): 218 General Appearance: no apparent distress Neck: normal alignment Cardiovascular: normal rate Respiratory/Chest: decreased breath sounds Abdomen: normal bowel sounds Pelvis: normal external exam Objective Current Medications Medications (Trade) Dose Ordered Sig/[place] Route PRN Reason Start Time Stop Time Status Last Admin Dose Admin Acetaminophen (Tylenol) 650 mg Q4H PRN ORAL FEVER 08/30/20 23:45 09/29/20 23:44 Acetaminophen/ Hydrocodone Bitart ([place] 5/325) 1 tab Q6H PRN ORAL Severe Pain (Pain Scale 7-10) 09/09/20 12:15 09/16/20 12:14 09/16/20 03:49 Calcium Acetate (Phoslo) 667 mg TIAC ORAL 09/08/20 11:30 12/07/20 11:29 09/15/20 18:14 Chlorhexidine Gluconate (Josiane-Hex 2%) 1 applic DAILY@1999 TOPIC 09/06/20 20:00 12/05/20 19:59 09/15/20 20:15 Dextrose (Dextrose 50%) 25 ml Q30M PRN IV Hypoglycemia 08/30/20 23:45 11/28/20 23:44 Dextrose (Dextrose 50%) 50 ml Q30M PRN IV Hypoglycemia 08/30/20 23:45 11/28/20 23:44 Epoetin Shlomo (Epoetin Shlomo(ESRD on dialysis)) 10,000 unit TUE-TUE-TUE SUBQ 09/08/20 21:00 12/07/20 20:59 09/15/20 20:34 Folic Acid (Folate) 3 mg DAILY ORAL 09/02/20 09:00 10/02/20 08:59 09/15/20 09:41 Heparin Sodium (Porcine) (Heparin 5000 units/ml) 5,000 units EVERY 12 HOURS SUBQ 08/31/20 09:00 10/15/20 08:59 09/15/20 20:17 Insulin Aspart (NovoLOG) BEFORE MEALS AND HS SUBQ 08/31/20 06:30 11/29/20 06:29 09/15/20 20:38 Levothyroxine Sodium (Synthroid) 100 mcg DAILY@0630 ORAL 09/02/20 06:30 10/02/20 06:29 09/15/20 06:21 Metoclopramide HCl (Reglan) 5 mg THREE TIMES A DAY ORAL 08/31/20 13:00 09/30/20 12:59 09/15/20 18:15 Ondansetron HCl (Zofran) 4 mg Q6H PRN IVP Nausea & Vomiting 08/30/20 23:45 09/29/20 23:44 Pantoprazole (Protonix) 40 mg EVERY 12 HOURS ORAL 08/31/20 21:00 09/30/20 20:59 09/15/20 20:17 Pioglitazone HCl (Actos) 15 mg ACBREAKFAST ORAL 09/14/20 06:30 10/14/20 06:29 09/15/20 06:21 Polyethylene Glycol (Miralax) 17 gm DAILYPRN PRN ORAL Constipation 08/30/20 23:45 09/29/20 23:44 Promethazine HCl/ Codeine (Phenergan with Codeine) 5 ml Q6H PRN ORAL cough 08/30/20 23:45 09/29/20 23:44 Theophylline (Theophylline) 80 mg BID ORAL 09/13/20 18:00 12/08/20 13:59 09/15/20 18:15 Assessment/Plan Problem List: (1) Renal failure (ARF), acute on chronic ICD Codes: N17.9 - Acute kidney failure, unspecified; N18.9 - Chronic kidney disease, unspecified SNOMED: 300087608 (2) CAD (coronary artery disease) ICD Codes: I25.10 - Atherosclerotic heart disease of [place] coronary artery without angina pectoris SNOMED: 13410220 (3) Diabetes mellitus ICD Codes: E11.9 - Type 2 diabetes mellitus without complications SNOMED: 28687058 (4) Left bundle branch block (LBBB) ICD Codes: I44.7 - Left bundle-branch block, unspecified SNOMED: 05477413 (5) Hypothyroidism ICD Codes: E03.9 - Hypothyroidism, unspecified SNOMED: 87643793 Status: unchanged Assessment/Plan: DC Actos 15 mg daily continue Novolog sliding scale ac / hs continue LT4 100 mcg daily repeat thyroid function in 2-3 weeks Jake Alexander MD Sep 16, 2020 06:24
[2020-09-16] MEDS: NovoLOG Insulin Flexpen SUBQ SCH ×4 (06:30→21:19)
[2020-09-16 06:40] LABS: BASOPHILS % (AUTO) 0.6 % (0.0-2.0); EOSINOPHILS % (AUTO) 1.5 % (0.0-3.0); HEMATOCRIT 30.9 % (37.0-47.0); HEMOGLOBIN 9.3 G/DL (12.0-16.0); LYMPHOCYTES % (AUTO) 10.7 % (20.0-45.0); MEAN CORPUSCULAR VOLUME 101 FL (80-99); NEUTROPHILS % (AUTO) 80.1 % (45.0-75.0); PLATELET COUNT 132 K/UL (150-450); RED BLOOD COUNT 3.05 M/UL (4.20-5.40); RED CELL DISTRIBUTION WIDTH 23.3 % (11.6-14.8); WHITE BLOOD COUNT 15.8 K/UL (4.8-10.8)
--- NOTE | 2020-09-16 06:42 | Hematology/Onc Progress Note ---
Assessment/Plan Assessment/Plan Assessment and Recs: # Anemia of chronic disease due to underlying chronic medical issues, multifactorial v Gi bleed --> Anemia workup has been ordered, rule out gi bleed --> No evidence of hemolysis is noted, peripheral smear has been reviewed. --> Hgb goal >7. Transfuse prn. --> EPOGEN AND IV IRON STARTED, CONTINUE --> Medications have been reviewed --> hgb 7.7-->8-->8.4-->8->8->8.7->8.8 --> egd w/ colo 01/15/20 Gastritis, status post biopsy. Total of 11 polyps removed, Internal hemorrhoids. # Thromocytopenia likely related to infection v reactive process, DOES HAVE CIRRHOSIS --> hep and hiv are neg --> imaging abd has been reviewed. noted liver disease, cirrhosis --> peripheral smear noted --> plt 75-->108-->120-->111 # Coagulation defect, multifactorial usually related to poor PO intake versus medications, versus hepatitis v cirrhosis --> administer Vitamin K if patient is bleeding or FFP if the INR is >10 --> hold off on ffp unless active procedure/bleeding, first begin with vit K 10 --> mixing study as needed # Renal failure (ARF), acute on chronic --> ivf as per renal --> renal us reviewed --> improved --> HD as per renal # Hypoglycemia -> endo eval prn # Pleural effusion --> diuresis as needed --> monitor ivf --> HD # Hyperkalemia # Obesity # Dvt ppx heparin sq The timing of this note does not necessarily reflect the time of the patient was seen. Greatly appreciate consultation. Subjective Constitutional: Denies: no symptoms, chills, fever, malaise, weakness, other HEENT: Denies: no symptoms, eye pain, blurred vision, tearing, double vision, ear pain, ear discharge, nose pain, nose congestion, throat pain, throat swelling, mouth pain, mouth swelling, other Cardiovascular: Denies: no symptoms, chest pain, edema, irregular heart rate, lightheadedness, palpitations, syncope, other Genitourinary: Denies: no symptoms, burning, discharge, frequency, flank pain, hematuria, incontinence, pain, urgency, other Endocrine: Denies: no symptoms, excessive sweating, flushing, intolerance to cold, intolerance to heat, increased hunger, increased thirst, increased urine, unexplained weight gain, unexplained weight loss, other Hematologic/Lymphatic: Denies: no symptoms, anemia, easy bleeding, easy bruising, adenopathy, other Allergies: Coded Allergies: No Known Allergies (Unverified , 10/10/19) Subjective 09/08 labs reviewed, hd as per renal, fluid overload improved, labs noted, with dropping plt 09/09 pending plt count this am, on abx, broad spectrum, no other events 09/10 labs pending, is comfortable, is on 3l nc, no bleeding 09/11 on 5L weaning, no night sweats, meds reviewed 09/12 labs noted, no bleeding, plts improved, meds reviewed 09/14 labs reviewed, meds noted, on hd as per renal permacath in place 09/15 labs are pending, on iso for covid19, no bleeding 09/16 labs reviewed, hgb 8.8, plt 111, no night sweats, meds noted, talkative Objective Objective Current Medications Medications (Trade) Dose Ordered Sig/Braeden Route PRN Reason Start Time Stop Time Status Last Admin Dose Admin Acetaminophen (Tylenol) 650 mg Q4H PRN ORAL FEVER 08/30/20 23:45 09/29/20 23:44 Acetaminophen/ Hydrocodone Bitart ([place] 5/325) 1 tab Q6H PRN ORAL Severe Pain (Pain Scale 7-10) 09/09/20 12:15 09/16/20 12:14 09/16/20 03:49 Calcium Acetate (Phoslo) 667 mg TIAC ORAL 09/08/20 11:30 12/07/20 11:29 09/15/20 18:14 Chlorhexidine Gluconate (Josiane-Hex 2%) 1 applic DAILY@1999 TOPIC 09/06/20 20:00 12/05/20 19:59 09/15/20 20:15 Dextrose (Dextrose 50%) 25 ml Q30M PRN IV Hypoglycemia 08/30/20 23:45 11/28/20 23:44 Dextrose (Dextrose 50%) 50 ml Q30M PRN IV Hypoglycemia 08/30/20 23:45 11/28/20 23:44 Epoetin Shlomo (Epoetin Shlomo(ESRD on dialysis)) 10,000 unit TUE-TUE-TUE SUBQ 09/08/20 21:00 12/07/20 20:59 09/15/20 20:34 Folic Acid (Folate) 3 mg DAILY ORAL 09/02/20 09:00 10/02/20 08:59 09/15/20 09:41 Heparin Sodium (Porcine) (Heparin 5000 units/ml) 5,000 units EVERY 12 HOURS SUBQ 08/31/20 09:00 10/15/20 08:59 09/15/20 20:17 Insulin Aspart (NovoLOG) BEFORE MEALS AND HS SUBQ 08/31/20 06:30 11/29/20 06:29 09/15/20 20:38 Levothyroxine Sodium (Synthroid) 100 mcg DAILY@0630 ORAL 09/02/20 06:30 10/02/20 06:29 09/15/20 06:21 Metoclopramide HCl (Reglan) 5 mg THREE TIMES A DAY ORAL 08/31/20 13:00 09/30/20 12:59 09/15/20 18:15 Ondansetron HCl (Zofran) 4 mg Q6H PRN IVP Nausea & Vomiting 08/30/20 23:45 09/29/20 23:44 Pantoprazole (Protonix) 40 mg EVERY 12 HOURS ORAL 08/31/20 21:00 09/30/20 20:59 09/15/20 20:17 Polyethylene Glycol (Miralax) 17 gm DAILYPRN PRN ORAL Constipation 08/30/20 23:45 09/29/20 23:44 Promethazine HCl/ Codeine (Phenergan with Codeine) 5 ml Q6H PRN ORAL cough 08/30/20 23:45 09/29/20 23:44 Theophylline (Theophylline) 80 mg BID ORAL 09/13/20 18:00 12/08/20 13:59 09/15/20 18:15 Last 24 Hour Vital Signs Date Time Temp Pulse Resp B/P (MAP) Pulse Ox O2 Delivery O2 Flow Rate FiO2 09/16/20 04:19 97.9 09/16/20 00:00 70 09/16/20 00:00 97.9 73 20 112/61 (78) 94 09/15/20 21:00 Nasal Cannula 2.0 09/15/20 20:12 73 18 96 Nasal Cannula 2.0 28 09/15/20 20:12 96 Nasal Cannula 2.0 28 09/15/20 20:00 73 09/15/20 20:00 97.7 73 18 112/62 (79) 95 09/15/20 18:45 98.1 09/15/20 16:00 98.1 73 20 99/58 (72) 95 09/15/20 16:00 74 09/15/20 12:00 69 09/15/20 12:00 97.6 71 20 104/55 (71) 95 09/15/20 09:00 Nasal Cannula 2.0 09/15/20 08:00 97.5 74 20 103/46 (65) 95 09/15/20 04:00 97.0 68 21 114/62 (79) 97 09/15/20 03:45 68 09/15/20 00:26 76 09/15/20 00:24 98.1 09/15/20 00:00 96.8 71 21 116/70 (85) 99 09/14/20 21:00 Nasal Cannula 2.0 09/14/20 20:00 98.1 70 20 123/68 (86) 95 09/14/20 19:55 68 09/14/20 16:00 72 09/14/20 16:00 97.5 76 20 106/66 (79) 95 09/14/20 12:00 68 09/14/20 12:00 97.5 70 20 105/53 (70) 94 09/14/20 10:48 66 09/14/20 10:48 97.2 71 20 109/60 (76) 97 09/14/20 08:12 Nasal Cannula 2.0 09/14/20 08:00 97.2 64 20 109/60 (76) 97 09/14/20 07:00 64 18 97 Nasal Cannula 2.0 28 09/14/20 07:00 97 Nasal Cannula 2.0 28 Intake and Output 09/15/20 09/16/20 19:00 07:00 Intake Total 200 ml Balance 200 ml Intake Oral 200 ml # Bowel Movements 2 1 Labs Test 09/13/20 12:17 09/13/20 17:15 09/13/20 21:11 09/14/20 04:15 POC Whole Blood Glucose 177 MG/DL (74-106) 223 MG/DL (74-106) 227 MG/DL (74-106) White Blood Count 15.2 K/UL (4.8-10.8) Red Blood Count 2.95 M/UL (4.20-5.40) Hemoglobin 8.7 G/DL (12.0-16.0) Hematocrit 29.3 % (37.0-47.0) Mean Corpuscular Volume 99 FL (80-99) Mean Corpuscular Hemoglobin 29.6 PG (27.0-31.0) Mean Corpuscular Hemoglobin Concent 29.8 G/DL (32.0-36.0) Red Cell Distribution Width 20.1 % (11.6-14.8) Platelet Count 120 K/UL (150-450) Mean Platelet Volume 8.0 FL (6.5-10.1) Neutrophils (%) (Auto) % (45.0-75.0) Lymphocytes (%) (Auto) % (20.0-45.0) Monocytes (%) (Auto) % (1.0-10.0) Eosinophils (%) (Auto) % (0.0-3.0) Basophils (%) (Auto) % (0.0-2.0) Differential Total Cells Counted 100 Neutrophils % (Manual) 90 % (45-75) Lymphocytes % (Manual) 6 % (20-45) Monocytes % (Manual) 4 % (1-10) Eosinophils % (Manual) 0 % (0-3) Basophils % (Manual) 0 % (0-2) Band Neutrophils 0 % (0-8) Platelet Estimate Decreased Platelet Morphology Normal Polychromasia 1+ Hypochromasia 2+ Anisocytosis 3+ Macrocytosis 1+ Sodium Level 135 MMOL/L (136-145) Potassium Level 4.3 MMOL/L (3.5-5.1) Chloride Level 98 MMOL/L (98-107) Carbon Dioxide Level 25 MMOL/L (21-32) Anion Gap 12 mmol/L (5-15) Blood Urea Nitrogen 60 mg/dL (7-18) Creatinine 5.0 MG/DL (0.55-1.30) Estimat Glomerular Filtration Rate 8.6 mL/min (>60) Glucose Level 178 MG/DL (74-106) Calcium Level 8.4 MG/DL (8.5-10.1) Test 09/14/20 06:15 09/14/20 12:02 09/14/20 16:51 09/14/20 21:24 POC Whole Blood Glucose 204 MG/DL (74-106) 188 MG/DL (74-106) 211 MG/DL (74-106) Test 09/15/20 03:00 09/15/20 05:42 09/15/20 12:26 09/15/20 18:04 White Blood Count 15.4 K/UL (4.8-10.8) Red Blood Count 2.93 M/UL (4.20-5.40) Hemoglobin 8.8 G/DL (12.0-16.0) Hematocrit 29.5 % (37.0-47.0) Mean Corpuscular Volume 101 FL (80-99) Mean Corpuscular Hemoglobin 30.0 PG (27.0-31.0) Mean Corpuscular Hemoglobin Concent 29.8 G/DL (32.0-36.0) Red Cell Distribution Width 22.1 % (11.6-14.8) Platelet Count 111 K/UL (150-450) Mean Platelet Volume 7.8 FL (6.5-10.1) Neutrophils (%) (Auto) % (45.0-75.0) Lymphocytes (%) (Auto) % (20.0-45.0) Monocytes (%) (Auto) % (1.0-10.0) Eosinophils (%) (Auto) % (0.0-3.0) Basophils (%) (Auto) % (0.0-2.0) Differential Total Cells Counted 100 Neutrophils % (Manual) 93 % (45-75) Lymphocytes % (Manual) 3 % (20-45) Monocytes % (Manual) 4 % (1-10) Eosinophils % (Manual) 0 % (0-3) Basophils % (Manual) 0 % (0-2) Band Neutrophils 0 % (0-8) Platelet Estimate Decreased Platelet Morphology Normal Polychromasia 1+ Hypochromasia 2+ Anisocytosis 3+ Macrocytosis 1+ Sodium Level 133 MMOL/L (136-145) Potassium Level 4.3 MMOL/L (3.5-5.1) Chloride Level 98 MMOL/L (98-107) Carbon Dioxide Level 24 MMOL/L (21-32) Anion Gap 11 mmol/L (5-15) Blood Urea Nitrogen 57 mg/dL (7-18) Creatinine 4.5 MG/DL (0.55-1.30) Estimat Glomerular Filtration Rate 9.7 mL/min (>60) Glucose Level 187 MG/DL (74-106) Calcium Level 8.3 MG/DL (8.5-10.1) Thyroid Stimulating Hormone (TSH) 7.518 uiU/mL (0.358-3.740) Free Thyroxine 0.67 NG/DL (0.76-1.46) POC Whole Blood Glucose 247 MG/DL (74-106) 220 MG/DL (74-106) 164 MG/DL (74-106) Test 09/15/20 20:27 09/16/20 05:51 POC Whole Blood Glucose 157 MG/DL (74-106) Height (Feet): 5 Height (Inches): 10.00 Weight (Pounds): 218 Objective ++Derick Hwang MD Sep 16, 2020 06:41
[2020-09-16 07:06] LABS: ALBUMIN 2.9 G/DL (3.4-5.0); ALBUMIN/GLOBULIN RATIO 0.7 (1.0-2.7); BILIRUBIN,TOTAL 0.7 MG/DL (0.2-1.0); CALCIUM 8.5 MG/DL (8.5-10.1); CREATININE 5.2 MG/DL (0.55-1.30); PHOSPHORUS 4.1 MG/DL (2.5-4.9); POTASSIUM 4.3 MMOL/L (3.5-5.1)
--- NOTE | 2020-09-16 07:22 | Infectious Diseases Prog Note ---
Assessment/Plan 70yo F with: COVID pna, ?from visiting family vs hospital acquired vs very early disease on admission, waiting confirmatory testing Confirmatory testing NEG x1 False positive rapid Ag test? 08/30 Rapid COVID neg 09/10 Rapid COVID neg 09/10 Rapid COVID positive 09/10 COVID PCR NEG 09/11 CXR: 1. New right IJ approach tunneled central venous dual-lumen catheter with tip in the superior cavoatrial region. 2. Persistent bilateral patchy airspace opacities could represent multifocal pneumonia, pulmonary edema, or inflammation. 3. Unchanged cardiomegaly with sternotomy and mediastinal operative findings. 4. Right apical and lateral pleural thickening, similar to prior could represent pleural fluid or pleural thickening. 5. Low lung volumes with bronchovascular crowding. 09/15 CXR: Slightly increased bilateral interstitial and airspace edema increased right pleural fluid, over 4 days Severe Sepsis Pneumonia Acute hypoxic resp failure- on 2L NC R pleural effusion, transudate -09/03 SP Thoracentesis: Successful ultrasound-guided thoracentesis, yielding 680 milliliters of clear yellow fluid; cx NTD -fluid prot 1.4, glucose 198 -09/01 Chest US: Positive for right pleural effusion Incidental finding of ascites, also previously reporte -08/30 CXR: There is again patchy ill-defined airspace opacities at the right greater than left base with some consolidated appearance again seen on the right. There is now patchy ill-defined opacity at the right upper lung. A small right pleural effusion is suggested. The patient is rotated to the right. Status post median sternotomy again noted. -08/30 & 8 rapid covid PCR neg x2 -08/30 Bcx NTD R/o UTI 09/09 UA 15-20 WBC, UCx NTD, UCx +80-90k VRE (S-linezolid), m/l colonizer Afebrile Leukocytosis, SP -09/02 Bcx NTD -08/31 u/a no pyuria R arm and R leg cellulitis; improving Recent hx of COVID19- pt clarified initial diagnosis was 2 months ago and not 08/25 as per documentation on EMR. VENANCIO on CKD -Renal US: Ascites. Bilateral pleural effusions. Complex right renal cysts of uncertain etiology. This complex cyst is unchanged from the study of 2019. Mildly atrophic right kidney.Magnetic resonance imaging of the abdomen with gadolinium administration is advised for further evaluation of complex right renal cyst. HIV screen neg PMH: HTN dCHF pHTN Ascites Chronic LE edema DM2 c/w neuropathy Iron def anemia Plan: Cont to monitor off abx Trend WBC, 2/2 steroids 09/15 SP dexa #5 empiric given COVID Ag+, PCR neg 09/09 SP ceftaroline and levofloxacin #9 (abx d #08/02) 08/31 SP Ceftriaxone #2, Azithromcyin #2 -f/u cx -Monitor CBC/CMP, temperatures -aspiration precautions D/w RN Thank you for consulting [facility]. Will continue to follow along with you. Subjective Allergies: Coded Allergies: No Known Allergies (Unverified , 10/10/19) AF NAD on RA WBC stable at 15, just now off steroids CXR w/ increased fluid Doing well, reports her breathing while walking is improved from prior Objective Last 24 Hour Vital Signs Date Time Temp Pulse Resp B/P (MAP) Pulse Ox O2 Delivery O2 Flow Rate FiO2 09/16/20 04:19 97.9 09/16/20 00:00 70 09/16/20 00:00 97.9 73 20 112/61 (78) 94 09/15/20 21:00 Nasal Cannula 2.0 09/15/20 20:12 73 18 96 Nasal Cannula 2.0 28 09/15/20 20:12 96 Nasal Cannula 2.0 28 09/15/20 20:00 73 09/15/20 20:00 97.7 73 18 112/62 (79) 95 09/15/20 18:45 98.1 09/15/20 16:00 98.1 73 20 99/58 (72) 95 09/15/20 16:00 74 09/15/20 12:00 69 09/15/20 12:00 97.6 71 20 104/55 (71) 95 09/15/20 09:00 Nasal Cannula 2.0 09/15/20 08:00 97.5 74 20 103/46 (65) 95 Height (Feet): 5 Height (Inches): 10.00 Weight (Pounds): 218 Gen: NAD in bed HEENT: NCAT, EOMI, PERRL CV: RRR Pulm: CTAB on RA Abd: Soft, NTND Ext: No c/c/e Neuro: Awake, interactive, pleasant Laboratory Tests Test 09/15/20 12:26 09/15/20 18:04 09/15/20 20:27 09/16/20 05:51 POC Whole Blood Glucose 220 MG/DL (74-106) H 164 MG/DL (74-106) H 157 MG/DL (74-106) H White Blood Count 15.8 K/UL (4.8-10.8) H Red Blood Count 3.05 M/UL (4.20-5.40) L Hemoglobin 9.3 G/DL (12.0-16.0) L Hematocrit 30.9 % (37.0-47.0) L Mean Corpuscular Volume 101 FL (80-99) H Mean Corpuscular Hemoglobin 30.5 PG (27.0-31.0) Mean Corpuscular Hemoglobin Concent 30.1 G/DL (32.0-36.0) L Red Cell Distribution Width 23.3 % (11.6-14.8) H Platelet Count 132 K/UL (150-450) L Mean Platelet Volume 7.0 FL (6.5-10.1) Neutrophils (%) (Auto) 80.1 % (45.0-75.0) H Lymphocytes (%) (Auto) 10.7 % (20.0-45.0) L Monocytes (%) (Auto) 7.0 % (1.0-10.0) Eosinophils (%) (Auto) 1.5 % (0.0-3.0) Basophils (%) (Auto) 0.6 % (0.0-2.0) Sodium Level 133 MMOL/L (136-145) L Potassium Level 4.3 MMOL/L (3.5-5.1) Chloride Level 98 MMOL/L (98-107) Carbon Dioxide Level 27 MMOL/L (21-32) Anion Gap 8 mmol/L (5-15) Blood Urea Nitrogen 72 mg/dL (7-18) H Creatinine 5.2 MG/DL (0.55-1.30) H Estimat Glomerular Filtration Rate 8.2 mL/min (>60) Glucose Level 116 MG/DL (74-106) H Uric Acid 3.7 MG/DL (2.6-7.2) Calcium Level 8.5 MG/DL (8.5-10.1) Phosphorus Level 4.1 MG/DL (2.5-4.9) Magnesium Level 2.8 MG/DL (1.8-2.4) H Total Bilirubin 0.7 MG/DL (0.2-1.0) Aspartate Amino Transf (AST/SGOT) 34 U/L (15-37) Alanine Aminotransferase (ALT/SGPT) 22 U/L (12-78) Alkaline Phosphatase 208 U/L (46-116) H C-Reactive Protein, Quantitative 3.7 mg/dL (0.00-0.90) H Total Protein 6.8 G/DL (6.4-8.2) Albumin 2.9 G/DL (3.4-5.0) L Globulin 3.9 g/dL Albumin/Globulin Ratio 0.7 (1.0-2.7) L Test 09/16/20 07:05 POC Whole Blood Glucose 132 MG/DL (74-106) H Current Medications Medications (Trade) Dose Ordered Sig/[place] Route PRN Reason Start Time Stop Time Status Last Admin Dose Admin Acetaminophen (Tylenol) 650 mg Q4H PRN ORAL FEVER 08/30/20 23:45 09/29/20 23:44 Acetaminophen/ Hydrocodone Bitart ([place] 5/325) 1 tab Q6H PRN ORAL Severe Pain (Pain Scale 7-10) 09/09/20 12:15 09/16/20 12:14 09/16/20 03:49 Calcium Acetate (Phoslo) 667 mg TIAC ORAL 09/08/20 11:30 12/07/20 11:29 09/16/20 07:03 Chlorhexidine Gluconate (Josiane-Hex 2%) 1 applic DAILY@1999 TOPIC 09/06/20 20:00 12/05/20 19:59 09/15/20 20:15 Dextrose (Dextrose 50%) 25 ml Q30M PRN IV Hypoglycemia 08/30/20 23:45 11/28/20 23:44 Dextrose (Dextrose 50%) 50 ml Q30M PRN IV Hypoglycemia 08/30/20 23:45 11/28/20 23:44 Epoetin Shlomo (Epoetin Shlomo(ESRD on dialysis)) 10,000 unit TUE-TUE-TUE SUBQ 09/08/20 21:00 12/07/20 20:59 09/15/20 20:34 Folic Acid (Folate) 3 mg DAILY ORAL 09/02/20 09:00 10/02/20 08:59 09/15/20 09:41 Heparin Sodium (Porcine) (Heparin 5000 units/ml) 5,000 units EVERY 12 HOURS SUBQ 08/31/20 09:00 10/15/20 08:59 09/15/20 20:17 Insulin Aspart (NovoLOG) BEFORE MEALS AND HS SUBQ 08/31/20 06:30 11/29/20 06:29 09/15/20 20:38 Levothyroxine Sodium (Synthroid) 100 mcg DAILY@0630 ORAL 09/02/20 06:30 10/02/20 06:29 09/16/20 07:03 Metoclopramide HCl (Reglan) 5 mg THREE TIMES A DAY ORAL 08/31/20 13:00 09/30/20 12:59 09/15/20 18:15 Ondansetron HCl (Zofran) 4 mg Q6H PRN IVP Nausea & Vomiting 08/30/20 23:45 09/29/20 23:44 Pantoprazole (Protonix) 40 mg EVERY 12 HOURS ORAL 08/31/20 21:00 09/30/20 20:59 09/15/20 20:17 Polyethylene Glycol (Miralax) 17 gm DAILYPRN PRN ORAL Constipation 08/30/20 23:45 09/29/20 23:44 Promethazine HCl/ Codeine (Phenergan with Codeine) 5 ml Q6H PRN ORAL cough 08/30/20 23:45 09/29/20 23:44 Theophylline (Theophylline) 80 mg BID ORAL 09/13/20 18:00 12/08/20 13:59 09/15/20 18:15 Nadia Calvin M.D. Sep 16, 2020 07:22
[2020-09-16] MEDS: Theophylline 80mg/15ml ORAL SCH ×2 (09:18→18:02)
[2020-09-16] MEDS: Heparin 5000 units/ml inj SUBQ SCH ×2 (09:29→21:19)
--- NOTE | 2020-09-16 10:52 | Surgery Progress Note ---
Surgery Progress Note Subjective Additional Comments having bm tolerating diet comfortable no complaints no n/v/f/c. Objective Last 24 Hour Vital Signs Date Time Temp Pulse Resp B/P (MAP) Pulse Ox O2 Delivery O2 Flow Rate FiO2 09/16/20 07:59 72 09/16/20 04:19 97.9 09/16/20 04:00 97.5 72 20 105/55 (72) 95 09/16/20 00:00 70 09/16/20 00:00 97.9 73 20 112/61 (78) 94 09/15/20 21:00 Nasal Cannula 2.0 09/15/20 20:12 73 18 96 Nasal Cannula 2.0 28 09/15/20 20:12 96 Nasal Cannula 2.0 28 09/15/20 20:00 73 09/15/20 20:00 97.7 73 18 112/62 (79) 95 09/15/20 18:45 98.1 09/15/20 16:00 98.1 73 20 99/58 (72) 95 09/15/20 16:00 74 09/15/20 12:00 69 09/15/20 12:00 97.6 71 20 104/55 (71) 95 I&O Intake and Output 09/15/20 09/16/20 19:00 07:00 Intake Total 200 ml 400 ml Balance 200 ml 400 ml Intake Oral 200 ml 400 ml # Voids 2 # Bowel Movements 2 2 Cardiovascular: RSR Respiratory: decreased breath sounds Abdomen: soft, non-tender, present bowel sounds Extremities: no tenderness, no cyanosis Laboratory Tests Test 09/15/20 12:26 09/15/20 18:04 09/15/20 20:27 09/16/20 05:51 POC Whole Blood Glucose 220 MG/DL (74-106) H 164 MG/DL (74-106) H 157 MG/DL (74-106) H White Blood Count 15.8 K/UL (4.8-10.8) H Red Blood Count 3.05 M/UL (4.20-5.40) L Hemoglobin 9.3 G/DL (12.0-16.0) L Hematocrit 30.9 % (37.0-47.0) L Mean Corpuscular Volume 101 FL (80-99) H Mean Corpuscular Hemoglobin 30.5 PG (27.0-31.0) Mean Corpuscular Hemoglobin Concent 30.1 G/DL (32.0-36.0) L Red Cell Distribution Width 23.3 % (11.6-14.8) H Platelet Count 132 K/UL (150-450) L Mean Platelet Volume 7.0 FL (6.5-10.1) Neutrophils (%) (Auto) 80.1 % (45.0-75.0) H Lymphocytes (%) (Auto) 10.7 % (20.0-45.0) L Monocytes (%) (Auto) 7.0 % (1.0-10.0) Eosinophils (%) (Auto) 1.5 % (0.0-3.0) Basophils (%) (Auto) 0.6 % (0.0-2.0) Sodium Level 133 MMOL/L (136-145) L Potassium Level 4.3 MMOL/L (3.5-5.1) Chloride Level 98 MMOL/L (98-107) Carbon Dioxide Level 27 MMOL/L (21-32) Anion Gap 8 mmol/L (5-15) Blood Urea Nitrogen 72 mg/dL (7-18) H Creatinine 5.2 MG/DL (0.55-1.30) H Estimat Glomerular Filtration Rate 8.2 mL/min (>60) Glucose Level 116 MG/DL (74-106) H Uric Acid 3.7 MG/DL (2.6-7.2) Calcium Level 8.5 MG/DL (8.5-10.1) Phosphorus Level 4.1 MG/DL (2.5-4.9) Magnesium Level 2.8 MG/DL (1.8-2.4) H Total Bilirubin 0.7 MG/DL (0.2-1.0) Aspartate Amino Transf (AST/SGOT) 34 U/L (15-37) Alanine Aminotransferase (ALT/SGPT) 22 U/L (12-78) Alkaline Phosphatase 208 U/L (46-116) H C-Reactive Protein, Quantitative 3.7 mg/dL (0.00-0.90) H Total Protein 6.8 G/DL (6.4-8.2) Albumin 2.9 G/DL (3.4-5.0) L Globulin 3.9 g/dL Albumin/Globulin Ratio 0.7 (1.0-2.7) L Test 09/16/20 07:05 09/16/20 08:31 POC Whole Blood Glucose 132 MG/DL (74-106) H Arterial Blood pH 7.393 (7.350-7.450) Arterial Blood Partial Pressure CO2 39.5 mmHg (35.0-45.0) Arterial Blood Partial Pressure O2 79.9 mmHg (75.0-100.0) Arterial Blood HCO3 23.5 mmol/L (22.0-26.0) Arterial Blood Oxygen Saturation 95.9 % (95-100) Arterial Blood Base Excess -1.2 (-2-2) Geoffrey Test Positive Plan Problems: (1) Acute on chronic diastolic (congestive) heart failure (2) Anemia (3) Acute respiratory failure Assessment & Plan: Large right pleural effusion persists, unchanged. Bilateral interstitial and airspace edema, cardiomegaly persists, probably unchanged allowing for differences in technique and inspiration (4) ACS (acute coronary syndrome) (5) History of hypertension (6) Moderate pulmonary arterial systolic hypertension (7) Left bundle branch block (LBBB) (8) Diabetes mellitus (9) Diabetic nephropathy (10) Renal failure (ARF), acute on chronic (11) Hyperkalemia (12) Bacteremia (13) CAD (coronary artery disease) (14) Hypothyroidism (15) Cardiac left ventricular ejection fraction greater than 40 percent (16) Grade I diastolic dysfunction (17) UTI (urinary tract infection) (18) Ulcers of both lower legs (19) Open wounds involving multiple regions of lower extremity Assessment & Plan: Patient identified admission having bilateral lower extremity edema open wounds as well as necrotic ulcerations. Patient states she has had this for some time now and acutely worsening as well. Bilateral lower leg wounds do to blisters from edema. Right medial lower leg wound 2.1x4.2x0.2 dark brown scab . Right anterior lower leg wound 5.6x5.3x0.2 pink wound bed. Right distal anterior lower leg 4.0x6.0x0.2 pink wound bed . Large amount serous drainage right leg wounds , Xeroform ,gauze,abd pad and kerlix applied change every shift. Left lower leg wound 3.7x5.0x0.3 100% green slough large amount serous drainage noted with small blisters ifeoma wound, Thera Honey, gauze,abd pad and kerlix applied, change every shift. Local wound care plan initiate Nutritional optimization Turn every 2 hours Elevate extremities Thank you will follow recommendations Right deep veins: Unremarkable. No DVT in the right common femoral, femoral, proximal deep femoral or popliteal veins. The veins demonstrate normal color flow, are normally compressible, with normal phasic flow and/or augmentation response. Right superficial veins: Unremarkable. No thrombus in the visualized right great saphenous vein. Left deep veins: Unremarkable. No DVT in the left common femoral, femoral, proximal deep femoral or popliteal veins. The veins demonstrate normal color flow, are normally compressible, with normal phasic flow and/or augmentation response. Left superficial veins: Unremarkable. No thrombus in the visualized left great saphenous vein. Soft tissues: No acute findings. No popliteal cyst. IMPRESSION: Normal bilateral lower extremity duplex venous ultrasound. DAILY ESTIMATED NEEDS: Needs based on ARF, now HD 65.7kg abw 25-30 kcals/kg [id number] total kcals 1.25-1.8 g protein/kg 82-118 g total protein Fluid per MD, HD pending NUTRITION DIAGNOSIS: Increased pro needs r/t renal dysfunction as evidenced by pt w/ ARF, w/ now pending HD, K on adm (5.8), elev BUN (81), elev Creat (3.8), elev phos and mg. CURRENT DIET:Renal/ CCHO MED PO DIET RECOMMENDATIONS: Renal / CCHO LOW diet + high pro snacks in b/w meals ADDITIONAL RECOMMENDATIONS: 1) Maintain calibrated bed scale wts 2) High pro snacks in b/w meals 3) Rec WC eval-> add nephrovite 1 tab daily Vit C per nephro (20) Pneumonia (21) Gout (22) 2019 novel coronavirus disease (COVID-19) Assessment & Plan: +++ during hospitalization on tx isolation (23) COVID-19 Omar Tellez Sep 16, 2020 10:52
--- NOTE | 2020-09-16 11:29 | Nephrology Progress Note ---
Assessment/Plan Problem List: (1) Renal failure (ARF), acute on chronic (2) Hyperkalemia (3) Hypothyroidism (4) Acute on chronic diastolic (congestive) heart failure (5) Diabetic nephropathy (6) Pneumonia Assessment: Leukocytosis, abnormal chest x-ray (7) Anemia Assessment 1) Renal failure (ARF), acute on chronic (2) Diabetes mellitus (3) Hypoglycemia (4) Hyperkalemia (5) Diabetic nephropathy (6) H/o Pleural effusion (7) Morbid obesity (8) Low Iron Anemia (9) HypoThyroidism Plan September 16: Due for dialysis today. Labs reviewed. Continue per consultants. September 15: Patient was dialyzed yesterday. Status quo. Labs reviewed. Next hemodialysis tomorrow. September 14: Patient was dialyzed September 12. Due for dialysis today. Labs reviewed. Continue per consultants. September 13: Patient was dialyzed yesterday. Medication reviewed. Labs reviewed. White blood cells rising. Currently on dexamethasone IV for COVID-19 will dialyze again tomorrow September 12: Patient due for dialysis and ultrafiltration today. Labs reviewed. Medication list reviewed. Continue per consultants. September 11: Patient dialyzed yesterday. Labs reviewed. Patient is now COVID- 19 test positive. On isolation. Will dialyze again tomorrow. Continue per consultants. September 10: Patient due for dialysis and ultrafiltration today. Labs reviewed. And medication list reviewed. September 09: Patient was dialyzed yesterday. Due for dialysis and ultrafiltration tomorrow. Will start theophylline for although lumbar diet and also improvement of the heart rate. Recheck TSH in a.m. Continue as is. DC Chan catheter. September 08: Patient due for dialysis and ultrafiltration today. Labs reviewed. PhosLo given. Continue as is. September 07: Patient was dialyzed 2 days in a row. Ultra filtrated 3 L a day. Patient continues to be edematous however much less. Will dialyze again tavo rrow with ultrafiltration. Will monitor renal parameters. September 06: Patient was dialyzed yesterday. Ultrafiltration was done. Patient remains edematous. Will do another dialysis and aim 3 L fluid removal as tolerates. Discontinue IV Lasix and oral hydralazine. Will adjust blood pressure medication as needed. Discussed with RN, antibiotics intravenously if possible should be changed to oral since there is no IV line available. 1 dose of Venofer 200 mg ordered to be given during dialysis. Subcutaneous Epogen ordered for anemia. September 05: New 24-hour urine suggestive of creatinine clearance of 3. Patient due for insertion of dialysis catheter. Hemodialysis and ultrafiltration after insertion of catheter. September 04: New 24-hour urine test is in process. Discussed with RN. Patient was short of breath overnight. ABG ordered. 1 dose of Zaroxolyn ordered. Patient has fluid overload, and need ultrafiltration. Blood cultures negative. Leukocytosis resolved. Will order placement of permacath and dialysis and ultrafiltration. September 03: The 24-hour urine results appears to be an error in view of total volume compared to intake and output records. Today's labs reviewed. Serum creatinine higher. Talk to the nursing charge of the floor and will order another 24-hour urine collection. Meanwhile continue per ID treatment for UTI and leukocytosis. Dexamethasone on the medication list was questioned. Patient may require dialysis if continues to have worsening renal parameters. September 02: Consent for dialysis catheter is taken. Catheter placement deferred due to leukocytosis. Surveillance blood culture ordered. Urine culture ordered. Blood pressure medication adjusted. 24-hour urine for creatinine clearance and total protein pending. Previously: Chan Cath 24 H CrCl and total protein ordered Off IV fluids, on IV Lasix Adjust BP meds Previous 2D echocardiogram ejection fraction is reported to 50% Previous Kidney ultrasound noted. Current kidney ultrasound results below Anemia work-up As needed Kayexalate for high potassium Keep blood pressure and blood sugar in check Monitor renal parameters Requires HD treatment [facility] KIDNEY IMPRESSION: 1. Ascites. 2. Bilateral pleural effusions. 3. Complex right renal cysts of uncertain etiology. This complex cyst is unchanged from the study of 01/12/2020. 4. Mildly atrophic right kidney. 5. Magnetic resonance imaging of the abdomen with gadolinium administration is advised for further evaluation of complex right renal cyst. Subjective ROS Limited/Unobtainable: No Constitutional: Reports: malaise Objective Objective Last 24 Hour Vital Signs Date Time Temp Pulse Resp B/P (MAP) Pulse Ox O2 Delivery O2 Flow Rate FiO2 09/16/20 08:00 75 09/16/20 08:00 97.5 71 20 107/60 (76) 97 09/16/20 07:59 72 09/16/20 07:26 67 18 97 Nasal Cannula 2.0 28 09/16/20 07:26 97 Nasal Cannula 2.0 28 09/16/20 04:19 97.9 09/16/20 04:00 97.5 72 20 105/55 (72) 95 09/16/20 00:00 70 09/16/20 00:00 97.9 73 20 112/61 (78) 94 09/15/20 21:00 Nasal Cannula 2.0 09/15/20 20:12 73 18 96 Nasal Cannula 2.0 28 09/15/20 20:12 96 Nasal Cannula 2.0 28 09/15/20 20:00 73 09/15/20 20:00 97.7 73 18 112/62 (79) 95 09/15/20 18:45 98.1 09/15/20 16:00 98.1 73 20 99/58 (72) 95 09/15/20 16:00 74 09/15/20 12:00 69 09/15/20 12:00 97.6 71 20 104/55 (71) 95 Intake and Output 09/15/20 09/16/20 19:00 07:00 Intake Total 200 ml 400 ml Balance 200 ml 400 ml Intake Oral 200 ml 400 ml # Voids 2 # Bowel Movements 2 2 Current Medications Medications (Trade) Dose Ordered Sig/Bra[place]en Route PRN Reason Start Time Stop Time Status Last Admin Dose Admin Acetaminophen (Tylenol) 650 mg Q4H PRN ORAL FEVER 08/30/20 23:45 09/29/20 23:44 Acetaminophen/ Hydrocodone Bitart ([place] 5/325) 1 tab Q6H PRN ORAL Severe Pain (Pain Scale 7-10) 09/09/20 12:15 09/16/20 12:14 09/16/20 03:49 Calcium Acetate (Phoslo) 667 mg TIAC ORAL 09/08/20 11:30 12/07/20 11:29 09/16/20 07:03 Chlorhexidine Gluconate (Josiane-Hex 2%) 1 applic DAILY@1999 TOPIC 09/06/20 20:00 12/05/20 19:59 09/15/20 20:15 Dextrose (Dextrose 50%) 25 ml Q30M PRN IV Hypoglycemia 08/30/20 23:45 11/28/20 23:44 Dextrose (Dextrose 50%) 50 ml Q30M PRN IV Hypoglycemia 08/30/20 23:45 11/28/20 23:44 Epoetin Shlomo (Epoetin Shlomo(ESRD on dialysis)) 10,000 unit TUE-TUE-TUE SUBQ 09/08/20 21:00 12/07/20 20:59 09/15/20 20:34 Folic Acid (Folate) 3 mg DAILY ORAL 09/02/20 09:00 10/02/20 08:59 09/16/20 09:18 Heparin Sodium (Porcine) (Heparin 5000 units/ml) 5,000 units EVERY 12 HOURS SUBQ 08/31/20 09:00 10/15/20 08:59 09/16/20 09:29 Insulin Aspart (NovoLOG) BEFORE MEALS AND HS SUBQ 08/31/20 06:30 11/29/20 06:29 09/15/20 20:38 Levothyroxine Sodium (Synthroid) 100 mcg DAILY@0630 ORAL 09/02/20 06:30 10/02/20 06:29 09/16/20 07:03 Metoclopramide HCl (Reglan) 5 mg THREE TIMES A DAY ORAL 08/31/20 13:00 09/30/20 12:59 09/16/20 09:18 Ondansetron HCl (Zofran) 4 mg Q6H PRN IVP Nausea & Vomiting 08/30/20 23:45 09/29/20 23:44 Pantoprazole (Protonix) 40 mg EVERY 12 HOURS ORAL 08/31/20 21:00 09/30/20 20:59 09/16/20 09:18 Polyethylene Glycol (Miralax) 17 gm DAILYPRN PRN ORAL Constipation 08/30/20 23:45 09/29/20 23:44 Promethazine HCl/ Codeine (Phenergan with Codeine) 5 ml Q6H PRN ORAL cough 08/30/20 23:45 09/29/20 23:44 Theophylline (Theophylline) 80 mg BID ORAL 09/13/20 18:00 12/08/20 13:59 09/16/20 09:18 Laboratory Tests 09/15/20 12:26: POC Whole Blood Glucose 220H 09/15/20 18:04: POC Whole Blood Glucose 164H 09/15/20 20:27: POC Whole Blood Glucose 157H 09/16/20 05:51: White Blood Count 15.8H, Red Blood Count 3.05L, Hemoglobin 9.3L, Hematocrit 30.9L, Mean Corpuscular Volume 101H, Mean Corpuscular Hemoglobin 30.5, Mean Corpuscular Hemoglobin Concent 30.1L, Red Cell Distribution Width 23.3H, Platelet Count 132L, Mean Platelet Volume 7.0, Neutrophils (%) (Auto) 80.1H, Lymphocytes (%) (Auto) 10.7L, Monocytes (%) (Auto) 7.0, Eosinophils (%) (Auto) 1.5, Basophils (%) (Auto) 0.6, Sodium Level 133L, Potassium Level 4.3, Chloride Level 98, Carbon Dioxide Level 27, Anion Gap 8, Blood Urea Nitrogen 72H, Creatinine 5.2H, Estimat Glomerular Filtration Rate 8.2, Glucose Level 116H, Uric Acid 3.7, Calcium Level 8.5, Phosphorus Level 4.1, Magnesium Level 2.8H, Total Bilirubin 0.7, Aspartate Amino Transf (AST/SGOT) 34, Alanine Aminotransferase (ALT/SGPT) 22, Alkaline Phosphatase 208H, C-Reactive Protein, Quantitative 3.7H, Total Protein 6.8, Albumin 2.9L, Globulin 3.9, Albumin/Globulin Ratio 0.7L 09/16/20 07:05: POC Whole Blood Glucose 132H 09/16/20 08:31: Arterial Blood pH 7.393, Arterial Blood Partial Pressure CO2 39.5, Arterial Blood Partial Pressure O2 79.9, Arterial Blood HCO3 23.5, Arterial Blood Oxygen Saturation 95.9, Arterial Blood Base Excess -1.2, Geoffrey Test Positive Height (Feet): 5 Height (Inches): 10.00 Weight (Pounds): 218 General Appearance: no apparent distress, lethargic Cardiovascular: normal rate Respiratory/Chest: decreased breath sounds Abdomen: distended Jay Severino MD Sep 16, 2020 11:29
--- NOTE | 2020-09-16 12:13 | Pulmonology Progress Note ---
Subjective ROS Limited/Unobtainable: No Interval Events: no new events Allergies: Coded Allergies: No Known Allergies (Unverified , 10/10/19) All Systems: reviewed and negative except above Objective Last 24 Hour Vital Signs Date Time Temp Pulse Resp B/P (MAP) Pulse Ox O2 Delivery O2 Flow Rate FiO2 09/16/20 09:00 Nasal Cannula 2.0 09/16/20 08:00 75 09/16/20 08:00 97.5 71 20 107/60 (76) 97 09/16/20 07:59 72 09/16/20 07:26 67 18 97 Nasal Cannula 2.0 28 09/16/20 07:26 97 Nasal Cannula 2.0 28 09/16/20 04:19 97.9 09/16/20 04:00 97.5 72 20 105/55 (72) 95 09/16/20 00:00 70 09/16/20 00:00 97.9 73 20 112/61 (78) 94 09/15/20 21:00 Nasal Cannula 2.0 09/15/20 20:12 73 18 96 Nasal Cannula 2.0 28 09/15/20 20:12 96 Nasal Cannula 2.0 28 09/15/20 20:00 73 09/15/20 20:00 97.7 73 18 112/62 (79) 95 09/15/20 18:45 98.1 09/15/20 16:00 98.1 73 20 99/58 (72) 95 09/15/20 16:00 74 Intake and Output 09/15/20 09/16/20 19:00 07:00 Intake Total 200 ml 400 ml Balance 200 ml 400 ml Intake Oral 200 ml 400 ml # Voids 2 # Bowel Movements 2 2 General Appearance: WD/WN HEENT: normocephalic, atraumatic Respiratory: chest wall non-tender, lungs clear, normal breath sounds Cardiovascular: normal peripheral pulses, normal rate Abdomen: normal bowel sounds, soft, non tender, no scars Extremities: no cyanosis Skin: no rash 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 Lymphatic: no neck adenopathy Laboratory Tests 09/15/20 12:26: POC Whole Blood Glucose 220H 09/15/20 18:04: POC Whole Blood Glucose 164H 09/15/20 20:27: POC Whole Blood Glucose 157H 09/16/20 05:51: White Blood Count 15.8H, Red Blood Count 3.05L, Hemoglobin 9.3L, Hematocrit 30.9L, Mean Corpuscular Volume 101H, Mean Corpuscular Hemoglobin 30.5, Mean Corpuscular Hemoglobin Concent 30.1L, Red Cell Distribution Width 23.3H, Platelet Count 132L, Mean Platelet Volume 7.0, Neutrophils (%) (Auto) 80.1H, Lymphocytes (%) (Auto) 10.7L, Monocytes (%) (Auto) 7.0, Eosinophils (%) (Auto) 1.5, Basophils (%) (Auto) 0.6, Sodium Level 133L, Potassium Level 4.3, Chloride Level 98, Carbon Dioxide Level 27, Anion Gap 8, Blood Urea Nitrogen 72H, Creatinine 5.2H, Estimat Glomerular Filtration Rate 8.2, Glucose Level 116H, Uric Acid 3.7, Calcium Level 8.5, Phosphorus Level 4.1, Magnesium Level 2.8H, Total Bilirubin 0.7, Aspartate Amino Transf (AST/SGOT) 34, Alanine Aminotransferase (ALT/SGPT) 22, Alkaline Phosphatase 208H, C-Reactive Protein, Quantitative 3.7H, Total Protein 6.8, Albumin 2.9L, Globulin 3.9, Albumin/Globulin Ratio 0.7L 09/16/20 07:05: POC Whole Blood Glucose 132H 09/16/20 08:31: Arterial Blood pH 7.393, Arterial Blood Partial Pressure CO2 39.5, Arterial Blood Partial Pressure O2 79.9, Arterial Blood HCO3 23.5, Arterial Blood Oxygen Saturation 95.9, Arterial Blood Base Excess -1.2, Geoffrey Test Positive 09/16/20 11:53: POC Whole Blood Glucose 129H Current Medications Medications (Trade) Dose Ordered Sig/Bra[place] Route PRN Reason Start Time Stop Time Status Last Admin Dose Admin Acetaminophen (Tylenol) 650 mg Q4H PRN ORAL FEVER 08/30/20 23:45 09/29/20 23:44 Acetaminophen/ Hydrocodone Bitart ([place] 5/325) 1 tab Q6H PRN ORAL Severe Pain (Pain Scale 7-10) 09/09/20 12:15 09/16/20 12:14 09/16/20 03:49 Calcium Acetate (Phoslo) 667 mg TIAC ORAL 09/08/20 11:30 12/07/20 11:29 09/16/20 07:03 Chlorhexidine Gluconate (Josiane-Hex 2%) 1 applic DAILY@2000 TOPIC 09/06/20 20:00 12/05/20 19:59 09/15/20 20:15 Dextrose (Dextrose 50%) 25 ml Q30M PRN IV Hypoglycemia 08/30/20 23:45 11/28/20 23:44 Dextrose (Dextrose 50%) 50 ml Q30M PRN IV Hypoglycemia 08/30/20 23:45 11/28/20 23:44 Epoetin Shlomo (Epoetin Shlomo(ESRD on dialysis)) 10,000 unit TUE-TUE-TUE SUBQ 09/08/20 21:00 12/07/20 20:59 09/15/20 20:34 Folic Acid (Folate) 3 mg DAILY ORAL 09/02/20 09:00 10/02/20 08:59 09/16/20 09:18 Heparin Sodium (Porcine) (Heparin 5000 units/ml) 5,000 units EVERY 12 HOURS SUBQ 08/31/20 09:00 10/15/20 08:59 09/16/20 09:29 Insulin Aspart (NovoLOG) BEFORE MEALS AND HS SUBQ 08/31/20 06:30 11/29/20 06:29 09/15/20 20:38 Levothyroxine Sodium (Synthroid) 100 mcg DAILY@0630 ORAL 09/02/20 06:30 10/02/20 06:29 09/16/20 07:03 Metoclopramide HCl (Reglan) 5 mg THREE TIMES A DAY ORAL 08/31/20 13:00 09/30/20 12:59 09/16/20 09:18 Ondansetron HCl (Zofran) 4 mg Q6H PRN IVP Nausea & Vomiting 08/30/20 23:45 09/29/20 23:44 Pantoprazole (Protonix) 40 mg EVERY 12 HOURS ORAL 08/31/20 21:00 09/30/20 20:59 09/16/20 09:18 Polyethylene Glycol (Miralax) 17 gm DAILYPRN PRN ORAL Constipation 08/30/20 23:45 09/29/20 23:44 Promethazine HCl/ Codeine (Phenergan with Codeine) 5 ml Q6H PRN ORAL cough 08/30/20 23:45 09/29/20 23:44 Theophylline (Theophylline) 80 mg BID ORAL 09/13/20 18:00 12/08/20 13:59 09/16/20 09:18 Assessment/Plan Problems: (1) 2019 novel coronavirus disease (COVID-19) (2) Acute on chronic diastolic (congestive) heart failure (3) Gout (4) Renal failure (ARF), acute on chronic (5) Diabetes mellitus (6) Left bundle branch block (LBBB) (7) Cardiac left ventricular ejection fraction greater than 40 percent (8) Grade I diastolic dysfunction (9) History of hypertension Assessment/Plan US of chest for thoracentesis, because of persistent leukocytosis doing better COVID positive sitting up in the chair f/u ID recommendations f/u inflammatory markers. O2 titrate to keep sat > 92%, currently down to O2 via NC thoracentesis done, 600 cc removed from right side. DVT prophylaxis\ dc planning Tiana Cool MD Sep 16, 2020 12:13
--- NOTE | 2020-09-16 12:18 | Cardiac Electrophysiology PN ---
Assessment/Plan Assessment/Plan 1. Volume overload due to renal failure Echo showed EF of 50%. On HD after PermCath placement 09/05. 2. Left bundle-branch block. 3. Diastolic dysfunction. EF 50%. 4. Hyperkalemia. Got Kayexalate and on HD by Dr. Severino. 5. Diabetic nephropathy. 6. Renal failure. BUN/Cr 81/3.8 S/P PermCath and dialysis 7. Hypothyroidism. 8. Iron-deficiency anemia. 9. Right pleural effusion. S/P 800cc Right thoracentesis 09/03/20 10. Covid PCR negative 09/15/20 DW RN Subjective Subjective S/P Right chest PermCath and HD pending today No CP in SR in NAD. Was in isolation as Rapid Covid was positive on 09/10 Off isolation today as PCR is negative now Objective Last 24 Hour Vital Signs Date Time Temp Pulse Resp B/P (MAP) Pulse Ox O2 Delivery O2 Flow Rate FiO2 09/16/20 09:00 Nasal Cannula 2.0 09/16/20 08:00 75 09/16/20 08:00 97.5 71 20 107/60 (76) 97 09/16/20 07:59 72 09/16/20 07:26 67 18 97 Nasal Cannula 2.0 28 09/16/20 07:26 97 Nasal Cannula 2.0 28 09/16/20 04:19 97.9 09/16/20 04:00 97.5 72 20 105/55 (72) 95 09/16/20 00:00 70 09/16/20 00:00 97.9 73 20 112/61 (78) 94 09/15/20 21:00 Nasal Cannula 2.0 09/15/20 20:12 73 18 96 Nasal Cannula 2.0 28 09/15/20 20:12 96 Nasal Cannula 2.0 28 09/15/20 20:00 73 09/15/20 20:00 97.7 73 18 112/62 (79) 95 09/15/20 18:45 98.1 09/15/20 16:00 98.1 73 20 99/58 (72) 95 09/15/20 16:00 74 Intake and Output 09/15/20 09/16/20 19:00 07:00 Intake Total 200 ml 400 ml Balance 200 ml 400 ml Intake Oral 200 ml 400 ml # Voids 2 # Bowel Movements 2 2 Laboratory Tests Test 09/15/20 12:26 09/15/20 18:04 09/15/20 20:27 09/16/20 05:51 POC Whole Blood Glucose 220 MG/DL (74-106) H 164 MG/DL (74-106) H 157 MG/DL (74-106) H White Blood Count 15.8 K/UL (4.8-10.8) H Red Blood Count 3.05 M/UL (4.20-5.40) L Hemoglobin 9.3 G/DL (12.0-16.0) L Hematocrit 30.9 % (37.0-47.0) L Mean Corpuscular Volume 101 FL (80-99) H Mean Corpuscular Hemoglobin 30.5 PG (27.0-31.0) Mean Corpuscular Hemoglobin Concent 30.1 G/DL (32.0-36.0) L Red Cell Distribution Width 23.3 % (11.6-14.8) H Platelet Count 132 K/UL (150-450) L Mean Platelet Volume 7.0 FL (6.5-10.1) Neutrophils (%) (Auto) 80.1 % (45.0-75.0) H Lymphocytes (%) (Auto) 10.7 % (20.0-45.0) L Monocytes (%) (Auto) 7.0 % (1.0-10.0) Eosinophils (%) (Auto) 1.5 % (0.0-3.0) Basophils (%) (Auto) 0.6 % (0.0-2.0) Sodium Level 133 MMOL/L (136-145) L Potassium Level 4.3 MMOL/L (3.5-5.1) Chloride Level 98 MMOL/L (98-107) Carbon Dioxide Level 27 MMOL/L (21-32) Anion Gap 8 mmol/L (5-15) Blood Urea Nitrogen 72 mg/dL (7-18) H Creatinine 5.2 MG/DL (0.55-1.30) H Estimat Glomerular Filtration Rate 8.2 mL/min (>60) Glucose Level 116 MG/DL (74-106) H Uric Acid 3.7 MG/DL (2.6-7.2) Calcium Level 8.5 MG/DL (8.5-10.1) Phosphorus Level 4.1 MG/DL (2.5-4.9) Magnesium Level 2.8 MG/DL (1.8-2.4) H Total Bilirubin 0.7 MG/DL (0.2-1.0) Aspartate Amino Transf (AST/SGOT) 34 U/L (15-37) Alanine Aminotransferase (ALT/SGPT) 22 U/L (12-78) Alkaline Phosphatase 208 U/L (46-116) H C-Reactive Protein, Quantitative 3.7 mg/dL (0.00-0.90) H Total Protein 6.8 G/DL (6.4-8.2) Albumin 2.9 G/DL (3.4-5.0) L Globulin 3.9 g/dL Albumin/Globulin Ratio 0.7 (1.0-2.7) L Test 09/16/20 07:05 09/16/20 08:31 09/16/20 11:53 POC Whole Blood Glucose 132 MG/DL (74-106) H 129 MG/DL (74-106) H Arterial Blood pH 7.393 (7.350-7.450) Arterial Blood Partial Pressure CO2 39.5 mmHg (35.0-45.0) Arterial Blood Partial Pressure O2 79.9 mmHg (75.0-100.0) Arterial Blood HCO3 23.5 mmol/L (22.0-26.0) Arterial Blood Oxygen Saturation 95.9 % (95-100) Arterial Blood Base Excess -1.2 (-2-2) Geoffrey Test Positive Objective HEAD AND NECK: No JVD. LUNGS: Coarse rhonchi, bibasilar rales.Right chest PermCath CARDIOVASCULAR: Regular S1 and S2 with no gallop. ABDOMEN: Soft. EXTREMITIES: Bilateral 2+ pitting edema and bandage on both legs Sina Paulson MD Sep 16, 2020 12:18
[2020-09-16 13:30] LABS: INR 1.2 (0.9-1.1)
--- NOTE | 2020-09-16 19:56 | General Progress Note ---
Subjective ROS Limited/Unobtainable: Yes Allergies: Coded Allergies: No Known Allergies (Unverified , 10/10/19) Objective Last 24 Hour Vital Signs Date Time Temp Pulse Resp B/P (MAP) Pulse Ox O2 Delivery O2 Flow Rate FiO2 09/16/20 18:58 70 18 97 Nasal Cannula 2.0 28 09/16/20 18:58 97 Nasal Cannula 2.0 28 09/16/20 16:00 97.6 81 20 104/61 (75) 100 09/16/20 16:00 80 09/16/20 12:00 74 09/16/20 12:00 97.5 77 20 110/70 (83) 95 09/16/20 09:00 Nasal Cannula 2.0 09/16/20 08:00 75 09/16/20 08:00 97.5 71 20 107/60 (76) 97 09/16/20 07:59 72 09/16/20 07:26 67 18 97 Nasal Cannula 2.0 28 09/16/20 07:26 97 Nasal Cannula 2.0 28 09/16/20 04:19 97.9 09/16/20 04:00 97.5 72 20 105/55 (72) 95 09/16/20 00:00 70 09/16/20 00:00 97.9 73 20 112/61 (78) 94 09/15/20 21:00 Nasal Cannula 2.0 09/15/20 20:12 73 18 96 Nasal Cannula 2.0 28 09/15/20 20:12 96 Nasal Cannula 2.0 28 09/15/20 20:00 73 09/15/20 20:00 97.7 73 18 112/62 (79) 95 Intake and Output 09/15/20 09/16/20 19:00 07:00 Intake Total 200 ml 400 ml Balance 200 ml 400 ml Intake Oral 200 ml 400 ml # Voids 2 # Bowel Movements 2 2 Laboratory Tests 09/15/20 20:27: POC Whole Blood Glucose 157H 09/16/20 05:51: White Blood Count 15.8H, Red Blood Count 3.05L, Hemoglobin 9.3L, Hematocrit 30.9L, Mean Corpuscular Volume 101H, Mean Corpuscular Hemoglobin 30.5, Mean Corpuscular Hemoglobin Concent 30.1L, Red Cell Distribution Width 23.3H, Platelet Count 132L, Mean Platelet Volume 7.0, Neutrophils (%) (Auto) 80.1H, Lymphocytes (%) (Auto) 10.7L, Monocytes (%) (Auto) 7.0, Eosinophils (%) (Auto) 1.5, Basophils (%) (Auto) 0.6, Sodium Level 133L, Potassium Level 4.3, Chloride Level 98, Carbon Dioxide Level 27, Anion Gap 8, Blood Urea Nitrogen 72H, Creatinine 5.2H, Estimat Glomerular Filtration Rate 8.2, Glucose Level 116H, Uric Acid 3.7, Calcium Level 8.5, Phosphorus Level 4.1, Magnesium Level 2.8H, Total Bilirubin 0.7, Aspartate Amino Transf (AST/SGOT) 34, Alanine Aminotransferase (ALT/SGPT) 22, Alkaline Phosphatase 208H, C-Reactive Protein, Quantitative 3.7H, Total Protein 6.8, Albumin 2.9L, Globulin 3.9, Albumin/Globulin Ratio 0.7L 09/16/20 07:05: POC Whole Blood Glucose 132H 09/16/20 08:31: Arterial Blood pH 7.393, Arterial Blood Partial Pressure CO2 39.5, Arterial Blood Partial Pressure O2 79.9, Arterial Blood HCO3 23.5, Arterial Blood Oxygen Saturation 95.9, Arterial Blood Base Excess -1.2, Geoffrey Test Positive 09/16/20 11:53: POC Whole Blood Glucose 129H 09/16/20 13:10: Prothrombin Time 12.8H, Prothromb Time International Ratio 1.2H, Activated Partial Thromboplast Time 27 09/16/20 16:41: POC Whole Blood Glucose 155H Height (Feet): 5 Height (Inches): 10.00 Weight (Pounds): 218 Assessment/Plan Problem List: (1) Anemia ICD Codes: D64.9 - Anemia, unspecified SNOMED: 715126829 (2) Ulcers of both lower legs ICD Codes: L97.919 - Non-pressure chronic ulcer of unspecified part of right lower leg with unspecified severity; L97.929 - Non-pressure chronic ulcer of unspecified part of left lower leg with unspecified severity SNOMED: 32618341, 433521815 (3) Open wounds involving multiple regions of lower extremity ICD Codes: S81.809A - Unspecified open wound, unspecified lower leg, initial encounter SNOMED: 449301059 (4) Pneumonia ICD Codes: J18.9 - Pneumonia, unspecified organism SNOMED: 976886892 (5) History of hypertension ICD Codes: Z86.79 - Personal history of other diseases of the circulatory system SNOMED: 099301131 (6) Diabetes mellitus ICD Codes: E11.9 - Type 2 diabetes mellitus without complications SNOMED: 79739256 (7) Renal failure (ARF), acute on chronic ICD Codes: N17.9 - Acute kidney failure, unspecified; N18.9 - Chronic kidney disease, unspecified SNOMED: 198219837 (8) Hyperkalemia ICD Codes: E87.5 - Hyperkalemia SNOMED: 00542404 (9) CAD (coronary artery disease) ICD Codes: I25.10 - Atherosclerotic heart disease of [place] coronary artery without angina pectoris SNOMED: 74500458 (10) Hypothyroidism ICD Codes: E03.9 - Hypothyroidism, unspecified SNOMED: 82116556 (11) Cardiac left ventricular ejection fraction greater than 40 percent ICD Codes: R94.30 - Abnormal result of cardiovascular function study, unspecified SNOMED: 457746239 (12) Grade I diastolic dysfunction ICD Codes: I51.9 - Heart disease, unspecified SNOMED: 1065060 Status: progressing, unchanged Assessment/Plan: chf resp insuff afebrile no cp check labs and meds already cad Tj Suazo MD Sep 16, 2020 19:56
[2020-09-16] MEDS: Dyna-Hex 2% Top Sol 2oz TOPIC SCH (21:20)
[2020-09-17] VITALS: BP 100/57
[2020-09-17 04:00] VITALS: BP 98/52
[2020-09-17] MEDS: NovoLOG Insulin Flexpen SUBQ SCH ×4 (06:26→21:00)
--- NOTE | 2020-09-17 06:26 | Hematology/Onc Progress Note ---
Assessment/Plan Assessment/Plan Assessment and Recs: # Anemia of chronic disease due to underlying chronic medical issues, multifactorial v Gi bleed --> Anemia workup has been ordered, rule out gi bleed --> No evidence of hemolysis is noted, peripheral smear has been reviewed. --> Hgb goal >7. Transfuse prn. --> EPOGEN AND IV IRON STARTED, CONTINUE --> Medications have been reviewed --> hgb 7.7-->8-->8.4-->8->8->8.7->8.8-->9.3 --> egd w/ colo 01/15/20 Gastritis, status post biopsy. Total of 11 polyps removed, Internal hemorrhoids. # Thromocytopenia likely related to infection v reactive process, DOES HAVE CIRRHOSIS --> hep and hiv are neg --> imaging abd has been reviewed. noted liver disease, cirrhosis --> peripheral smear noted --> plt 75-->108-->120-->111-->132 # Coagulation defect, multifactorial usually related to poor PO intake versus medications, versus hepatitis v cirrhosis --> administer Vitamin K if patient is bleeding or FFP if the INR is >10 --> hold off on ffp unless active procedure/bleeding, first begin with vit K 10 --> mixing study as needed # Renal failure (ARF), acute on chronic --> ivf as per renal --> renal us reviewed --> improved --> HD as per renal # Hypoglycemia -> endo eval prn # Pleural effusion --> diuresis as needed --> monitor ivf --> HD # Hyperkalemia # Obesity # Dvt ppx heparin sq The timing of this note does not necessarily reflect the time of the patient was seen. Greatly appreciate consultation. Subjective Constitutional: Denies: no symptoms, chills, fever, malaise, weakness, other HEENT: Denies: no symptoms, eye pain, blurred vision, tearing, double vision, ear pain, ear discharge, nose pain, nose congestion, throat pain, throat swelling, mouth pain, mouth swelling, other Cardiovascular: Denies: no symptoms, chest pain, edema, irregular heart rate, lightheadedness, palpitations, syncope, other Genitourinary: Denies: no symptoms, burning, discharge, frequency, flank pain, hematuria, incontinence, pain, urgency, other Neurologic/Psychiatric: Denies: no symptoms, anxiety, depressed, emotional problems, headache, numbness, paresthesia, pre-existing deficit, seizure, tingling, tremors, weakness, other Endocrine: Denies: no symptoms, excessive sweating, flushing, intolerance to cold, intolerance to heat, increased hunger, increased thirst, increased urine, unexplained weight gain, unexplained weight loss, other Hematologic/Lymphatic: Denies: no symptoms, anemia, easy bleeding, easy bruising, adenopathy, other Allergies: Coded Allergies: No Known Allergies (Unverified , 10/10/19) Subjective 09/08 labs reviewed, hd as per renal, fluid overload improved, labs noted, with dropping plt 09/09 pending plt count this am, on abx, broad spectrum, no other events 09/10 labs pending, is comfortable, is on 3l nc, no bleeding 09/11 on 5L weaning, no night sweats, meds reviewed 09/12 labs noted, no bleeding, plts improved, meds reviewed 09/14 labs reviewed, meds noted, on hd as per renal permacath in place 09/15 labs are pending, on iso for covid19, no bleeding 09/16 labs reviewed, hgb 8.8, plt 111, no night sweats, meds noted, talkative 09/17 awake, alert, most recent plt better, no night sweats, meds noted Objective Objective Current Medications Medications (Trade) Dose Ordered Sig/Bra[place] Route PRN Reason Start Time Stop Time Status Last Admin Dose Admin Acetaminophen (Tylenol) 650 mg Q4H PRN ORAL FEVER 08/30/20 23:45 09/29/20 23:44 Calcium Acetate (Phoslo) 667 mg TIAC ORAL 09/08/20 11:30 12/07/20 11:29 09/16/20 16:47 Chlorhexidine Gluconate (Josiane-Hex 2%) 1 applic DAILY@1999 TOPIC 09/06/20 20:00 12/05/20 19:59 09/16/20 21:20 Dextrose (Dextrose 50%) 25 ml Q30M PRN IV Hypoglycemia 08/30/20 23:45 11/28/20 23:44 Dextrose (Dextrose 50%) 50 ml Q30M PRN IV Hypoglycemia 08/30/20 23:45 11/28/20 23:44 Epoetin Shlomo (Epoetin Shlomo(ESRD on dialysis)) 10,000 unit TUE-TUE-TUE SUBQ 09/08/20 21:00 12/07/20 20:59 09/15/20 20:34 Folic Acid (Folate) 3 mg DAILY ORAL 09/02/20 09:00 10/02/20 08:59 09/16/20 09:18 Heparin Sodium (Porcine) (Heparin 5000 units/ml) 5,000 units EVERY 12 HOURS SUBQ 08/31/20 09:00 10/15/20 08:59 09/16/20 21:19 Insulin Aspart (NovoLOG) BEFORE MEALS AND HS SUBQ 08/31/20 06:30 11/29/20 06:29 09/16/20 21:19 Levothyroxine Sodium (Synthroid) 100 mcg DAILY@0630 ORAL 09/02/20 06:30 10/02/20 06:29 09/16/20 07:03 Metoclopramide HCl (Reglan) 5 mg THREE TIMES A DAY ORAL 08/31/20 13:00 09/30/20 12:59 09/16/20 18:01 Ondansetron HCl (Zofran) 4 mg Q6H PRN IVP Nausea & Vomiting 08/30/20 23:45 09/29/20 23:44 Pantoprazole (Protonix) 40 mg EVERY 12 HOURS ORAL 08/31/20 21:00 09/30/20 20:59 09/16/20 21:20 Polyethylene Glycol (Miralax) 17 gm DAILYPRN PRN ORAL Constipation 08/30/20 23:45 09/29/20 23:44 Promethazine HCl/ Codeine (Phenergan with Codeine) 5 ml Q6H PRN ORAL cough 08/30/20 23:45 09/29/20 23:44 Theophylline (Theophylline) 80 mg BID ORAL 09/13/20 18:00 12/08/20 13:59 09/16/20 18:02 Last 24 Hour Vital Signs Date Time Temp Pulse Resp B/P (MAP) Pulse Ox O2 Delivery O2 Flow Rate FiO2 09/17/20 04:00 98.0 81 20 98/52 (67) 93 09/17/20 03:32 81 09/17/20 00:00 97.9 79 18 100/57 (71) 93 09/16/20 23:47 76 09/16/20 21:00 Nasal Cannula 2.0 09/16/20 20:19 82 09/16/20 20:15 99/51 (67) 09/16/20 20:00 96.8 80 18 93/38 (56) 94 09/16/20 18:58 70 18 97 Nasal Cannula 2.0 28 09/16/20 18:58 97 Nasal Cannula 2.0 28 09/16/20 16:00 97.6 81 20 104/61 (75) 100 09/16/20 16:00 80 09/16/20 12:00 74 09/16/20 12:00 97.5 77 20 110/70 (83) 95 09/16/20 09:00 Nasal Cannula 2.0 09/16/20 08:00 75 09/16/20 08:00 97.5 71 20 107/60 (76) 97 09/16/20 07:59 72 09/16/20 07:26 67 18 97 Nasal Cannula 2.0 28 09/16/20 07:26 97 Nasal Cannula 2.0 28 09/16/20 04:19 97.9 09/16/20 04:00 97.5 72 20 105/55 (72) 95 09/16/20 00:00 70 09/16/20 00:00 97.9 73 20 112/61 (78) 94 09/15/20 21:00 Nasal Cannula 2.0 09/15/20 20:12 73 18 96 Nasal Cannula 2.0 28 09/15/20 20:12 96 Nasal Cannula 2.0 28 09/15/20 20:00 73 09/15/20 20:00 97.7 73 18 112/62 (79) 95 09/15/20 18:45 98.1 09/15/20 16:00 98.1 73 20 99/58 (72) 95 09/15/20 16:00 74 09/15/20 12:00 69 09/15/20 12:00 97.6 71 20 104/55 (71) 95 09/15/20 09:00 Nasal Cannula 2.0 09/15/20 08:00 97.5 74 20 103/46 (65) 95 Intake and Output 09/16/20 09/17/20 19:00 07:00 Intake Total 400 ml 360 ml Balance 400 ml 360 ml Intake Oral 400 ml 360 ml # Voids 2 # Bowel Movements 1 3 Labs Test 09/14/20 12:02 09/14/20 16:51 09/14/20 21:24 09/15/20 03:00 POC Whole Blood Glucose 204 MG/DL (74-106) 188 MG/DL (74-106) 211 MG/DL (74-106) White Blood Count 15.4 K/UL (4.8-10.8) Red Blood Count 2.93 M/UL (4.20-5.40) Hemoglobin 8.8 G/DL (12.0-16.0) Hematocrit 29.5 % (37.0-47.0) Mean Corpuscular Volume 101 FL (80-99) Mean Corpuscular Hemoglobin 30.0 PG (27.0-31.0) Mean Corpuscular Hemoglobin Concent 29.8 G/DL (32.0-36.0) Red Cell Distribution Width 22.1 % (11.6-14.8) Platelet Count 111 K/UL (150-450) Mean Platelet Volume 7.8 FL (6.5-10.1) Neutrophils (%) (Auto) % (45.0-75.0) Lymphocytes (%) (Auto) % (20.0-45.0) Monocytes (%) (Auto) % (1.0-10.0) Eosinophils (%) (Auto) % (0.0-3.0) Basophils (%) (Auto) % (0.0-2.0) Differential Total Cells Counted 100 Neutrophils % (Manual) 93 % (45-75) Lymphocytes % (Manual) 3 % (20-45) Monocytes % (Manual) 4 % (1-10) Eosinophils % (Manual) 0 % (0-3) Basophils % (Manual) 0 % (0-2) Band Neutrophils 0 % (0-8) Platelet Estimate Decreased Platelet Morphology Normal Polychromasia 1+ Hypochromasia 2+ Anisocytosis 3+ Macrocytosis 1+ Sodium Level 133 MMOL/L (136-145) Potassium Level 4.3 MMOL/L (3.5-5.1) Chloride Level 98 MMOL/L (98-107) Carbon Dioxide Level 24 MMOL/L (21-32) Anion Gap 11 mmol/L (5-15) Blood Urea Nitrogen 57 mg/dL (7-18) Creatinine 4.5 MG/DL (0.55-1.30) Estimat Glomerular Filtration Rate 9.7 mL/min (>60) Glucose Level 187 MG/DL (74-106) Calcium Level 8.3 MG/DL (8.5-10.1) Thyroid Stimulating Hormone (TSH) 7.518 uiU/mL (0.358-3.740) Free Thyroxine 0.67 NG/DL (0.76-1.46) Test 09/15/20 05:42 09/15/20 12:26 09/15/20 18:04 09/15/20 20:27 POC Whole Blood Glucose 247 MG/DL (74-106) 220 MG/DL (74-106) 164 MG/DL (74-106) 157 MG/DL (74-106) Test 09/16/20 05:51 09/16/20 07:05 09/16/20 08:31 09/16/20 11:53 White Blood Count 15.8 K/UL (4.8-10.8) Red Blood Count 3.05 M/UL (4.20-5.40) Hemoglobin 9.3 G/DL (12.0-16.0) Hematocrit 30.9 % (37.0-47.0) Mean Corpuscular Volume 101 FL (80-99) Mean Corpuscular Hemoglobin 30.5 PG (27.0-31.0) Mean Corpuscular Hemoglobin Concent 30.1 G/DL (32.0-36.0) Red Cell Distribution Width 23.3 % (11.6-14.8) Platelet Count 132 K/UL (150-450) Mean Platelet Volume 7.0 FL (6.5-10.1) Neutrophils (%) (Auto) 80.1 % (45.0-75.0) Lymphocytes (%) (Auto) 10.7 % (20.0-45.0) Monocytes (%) (Auto) 7.0 % (1.0-10.0) Eosinophils (%) (Auto) 1.5 % (0.0-3.0) Basophils (%) (Auto) 0.6 % (0.0-2.0) Sodium Level 133 MMOL/L (136-145) Potassium Level 4.3 MMOL/L (3.5-5.1) Chloride Level 98 MMOL/L (98-107) Carbon Dioxide Level 27 MMOL/L (21-32) Anion Gap 8 mmol/L (5-15) Blood Urea Nitrogen 72 mg/dL (7-18) Creatinine 5.2 MG/DL (0.55-1.30) Estimat Glomerular Filtration Rate 8.2 mL/min (>60) Glucose Level 116 MG/DL (74-106) Uric Acid 3.7 MG/DL (2.6-7.2) Calcium Level 8.5 MG/DL (8.5-10.1) Phosphorus Level 4.1 MG/DL (2.5-4.9) Magnesium Level 2.8 MG/DL (1.8-2.4) Total Bilirubin 0.7 MG/DL (0.2-1.0) Aspartate Amino Transf (AST/SGOT) 34 U/L (15-37) Alanine Aminotransferase (ALT/SGPT) 22 U/L (12-78) Alkaline Phosphatase 208 U/L (46-116) C-Reactive Protein, Quantitative 3.7 mg/dL (0.00-0.90) Total Protein 6.8 G/DL (6.4-8.2) Albumin 2.9 G/DL (3.4-5.0) Globulin 3.9 g/dL Albumin/Globulin Ratio 0.7 (1.0-2.7) POC Whole Blood Glucose 132 MG/DL (74-106) 129 MG/DL (74-106) Arterial Blood pH 7.393 (7.350-7.450) Arterial Blood Partial Pressure CO2 39.5 mmHg (35.0-45.0) Arterial Blood Partial Pressure O2 79.9 mmHg (75.0-100.0) Arterial Blood HCO3 23.5 mmol/L (22.0-26.0) Arterial Blood Oxygen Saturation 95.9 % (95-100) Arterial Blood Base Excess -1.2 (-2-2) Geoffrey Test Positive Test 09/16/20 13:10 09/16/20 16:41 09/16/20 21:12 Prothrombin Time 12.8 SEC (9.30-11.50) Prothromb Time International Ratio 1.2 (0.9-1.1) Activated Partial Thromboplast Time 27 SEC (23-33) POC Whole Blood Glucose 155 MG/DL (74-106) Height (Feet): 5 Height (Inches): 10.00 Weight (Pounds): 218 Objective ++Derick Hwang MD Sep 17, 2020 06:26
--- NOTE | 2020-09-17 06:36 | General Progress Note ---
Subjective Allergies: Coded Allergies: No Known Allergies (Unverified , 10/10/19) All Systems: reviewed and negative except above Subjective events noted - interval notes reviewed glucose values are stable Item Value Date Time Bedside Blood Glucose 129 mg/dl H 09/17/20 0632 Bedside Blood Glucose 146 mg/dl H 09/16/20 2119 Bedside Blood Glucose 155 mg/dl H 09/16/20 1648 Bedside Blood Glucose 129 mg/dl H 09/16/20 1130 Bedside Blood Glucose 132 mg/dl H 09/16/20 0630 Objective Last 24 Hour Vital Signs Date Time Temp Pulse Resp B/P (MAP) Pulse Ox O2 Delivery O2 Flow Rate FiO2 09/17/20 04:00 98.0 81 20 98/52 (67) 93 09/17/20 03:32 81 09/17/20 00:00 97.9 79 18 100/57 (71) 93 09/16/20 23:47 76 09/16/20 21:00 Nasal Cannula 2.0 09/16/20 20:19 82 09/16/20 20:15 99/51 (67) 09/16/20 20:00 96.8 80 18 93/38 (56) 94 09/16/20 18:58 70 18 97 Nasal Cannula 2.0 28 09/16/20 18:58 97 Nasal Cannula 2.0 28 09/16/20 16:00 97.6 81 20 104/61 (75) 100 09/16/20 16:00 80 09/16/20 12:00 74 09/16/20 12:00 97.5 77 20 110/70 (83) 95 09/16/20 09:00 Nasal Cannula 2.0 09/16/20 08:00 75 09/16/20 08:00 97.5 71 20 107/60 (76) 97 09/16/20 07:59 72 09/16/20 07:26 67 18 97 Nasal Cannula 2.0 28 09/16/20 07:26 97 Nasal Cannula 2.0 28 Intake and Output 09/16/20 09/17/20 19:00 07:00 Intake Total 400 ml 360 ml Balance 400 ml 360 ml Intake Oral 400 ml 360 ml # Voids 2 # Bowel Movements 1 3 Laboratory Tests 09/16/20 07:05: POC Whole Blood Glucose 132H 09/16/20 08:31: Arterial Blood pH 7.393, Arterial Blood Partial Pressure CO2 39.5, Arterial Blood Partial Pressure O2 79.9, Arterial Blood HCO3 23.5, Arterial Blood Oxygen Saturation 95.9, Arterial Blood Base Excess -1.2, Geoffrey Test Positive 09/16/20 11:53: POC Whole Blood Glucose 129H 09/16/20 13:10: Prothrombin Time 12.8H, Prothromb Time International Ratio 1.2H, Activated Partial Thromboplast Time 27 09/16/20 16:41: POC Whole Blood Glucose 155H 09/16/20 21:12: POC Whole Blood Glucose [Pending] 09/17/20 06:26: POC Whole Blood Glucose [Pending] Height (Feet): 5 Height (Inches): 10.00 Weight (Pounds): 218 General Appearance: no apparent distress Neck: normal alignment Cardiovascular: normal rate Respiratory/Chest: lungs clear Abdomen: normal bowel sounds Objective Current Medications Medications (Trade) Dose Ordered Sig/Braed[place] Route PRN Reason Start Time Stop Time Status Last Admin Dose Admin Acetaminophen (Tylenol) 650 mg Q4H PRN ORAL FEVER 08/30/20 23:45 09/29/20 23:44 Calcium Acetate (Phoslo) 667 mg TIAC ORAL 09/08/20 11:30 12/07/20 11:29 09/17/20 06:29 Chlorhexidine Gluconate (Josiane-Hex 2%) 1 applic DAILY@1999 TOPIC 09/06/20 20:00 12/05/20 19:59 09/16/20 21:20 Dextrose (Dextrose 50%) 25 ml Q30M PRN IV Hypoglycemia 08/30/20 23:45 11/28/20 23:44 Dextrose (Dextrose 50%) 50 ml Q30M PRN IV Hypoglycemia 08/30/20 23:45 11/28/20 23:44 Epoetin Shlomo (Epoetin Shlomo(ESRD on dialysis)) 10,000 unit TUE-TUE-TUE SUBQ 09/08/20 21:00 12/07/20 20:59 09/15/20 20:34 Folic Acid (Folate) 3 mg DAILY ORAL 09/02/20 09:00 10/02/20 08:59 09/16/20 09:18 Heparin Sodium (Porcine) (Heparin 5000 units/ml) 5,000 units EVERY 12 HOURS SUBQ 08/31/20 09:00 10/15/20 08:59 09/16/20 21:19 Insulin Aspart (NovoLOG) BEFORE MEALS AND HS SUBQ 08/31/20 06:30 11/29/20 06:29 09/16/20 21:19 Levothyroxine Sodium (Synthroid) 100 mcg DAILY@0630 ORAL 09/02/20 06:30 10/02/20 06:29 09/17/20 06:29 Metoclopramide HCl (Reglan) 5 mg THREE TIMES A DAY ORAL 08/31/20 13:00 09/30/20 12:59 09/16/20 18:01 Ondansetron HCl (Zofran) 4 mg Q6H PRN IVP Nausea & Vomiting 08/30/20 23:45 09/29/20 23:44 Pantoprazole (Protonix) 40 mg EVERY 12 HOURS ORAL 08/31/20 21:00 09/30/20 20:59 09/16/20 21:20 Polyethylene Glycol (Miralax) 17 gm DAILYPRN PRN ORAL Constipation 08/30/20 23:45 09/29/20 23:44 Promethazine HCl/ Codeine (Phenergan with Codeine) 5 ml Q6H PRN ORAL cough 08/30/20 23:45 09/29/20 23:44 Theophylline (Theophylline) 80 mg BID ORAL 09/13/20 18:00 12/08/20 13:59 09/16/20 18:02 Assessment/Plan Problem List: (1) Renal failure (ARF), acute on chronic ICD Codes: N17.9 - Acute kidney failure, unspecified; N18.9 - Chronic kidney disease, unspecified SNOMED: 849481265 (2) CAD (coronary artery disease) ICD Codes: I25.10 - Atherosclerotic heart disease of [place] coronary artery without angina pectoris SNOMED: 21106746 (3) Diabetes mellitus ICD Codes: E11.9 - Type 2 diabetes mellitus without complications SNOMED: 28430608 (4) Left bundle branch block (LBBB) ICD Codes: I44.7 - Left bundle-branch block, unspecified SNOMED: 59326288 (5) Hypothyroidism ICD Codes: E03.9 - Hypothyroidism, unspecified SNOMED: 25619925 Status: progressing, unchanged Assessment/Plan: continue Novolog sliding scale ac / hs continue LT4 100 mcg daily repeat thyroid function in 2-3 weeks Jake Alexander MD Sep 17, 2020 06:36
--- NOTE | 2020-09-17 07:33 | Infectious Diseases Prog Note ---
Assessment/Plan 70yo F with: COVID pna, ?from visiting family vs hospital acquired vs very early disease on admission, waiting confirmatory testing Confirmatory testing NEG x1 False positive rapid Ag test? 08/30 Rapid COVID neg 09/10 Rapid COVID neg 09/10 Rapid COVID positive 09/10 COVID PCR NEG 09/11 CXR: 1. New right IJ approach tunneled central venous dual-lumen catheter with tip in the superior cavoatrial region. 2. Persistent bilateral patchy airspace opacities could represent multifocal pneumonia, pulmonary edema, or inflammation. 3. Unchanged cardiomegaly with sternotomy and mediastinal operative findings. 4. Right apical and lateral pleural thickening, similar to prior could represent pleural fluid or pleural thickening. 5. Low lung volumes with bronchovascular crowding. 09/15 CXR: Slightly increased bilateral interstitial and airspace edema increased right pleural fluid, over 4 days Severe Sepsis Pneumonia Acute hypoxic resp failure- on 2L NC R pleural effusion, transudate -09/03 SP Thoracentesis: Successful ultrasound-guided thoracentesis, yielding 680 milliliters of clear yellow fluid; cx NTD -fluid prot 1.4, glucose 198 -09/01 Chest US: Positive for right pleural effusion Incidental finding of ascites, also previously reporte -08/30 CXR: There is again patchy ill-defined airspace opacities at the right greater than left base with some consolidated appearance again seen on the right. There is now patchy ill-defined opacity at the right upper lung. A small right pleural effusion is suggested. The patient is rotated to the right. Status post median sternotomy again noted. -08/30 & 8 rapid covid PCR neg x2 -08/30 Bcx NTD R/o UTI 09/09 UA 15-20 WBC, UCx NTD, UCx +80-90k VRE (S-linezolid), m/l colonizer Afebrile Leukocytosis, SP -09/02 Bcx NTD -08/31 u/a no pyuria R arm and R leg cellulitis; improving Recent hx of COVID19- pt clarified initial diagnosis was 2 months ago and not 08/25 as per documentation on EMR. VENANCIO on CKD -Renal US: Ascites. Bilateral pleural effusions. Complex right renal cysts of uncertain etiology. This complex cyst is unchanged from the study of 2019. Mildly atrophic right kidney.Magnetic resonance imaging of the abdomen with gadolinium administration is advised for further evaluation of complex right renal cyst. HIV screen neg PMH: HTN dCHF pHTN Ascites Chronic LE edema DM2 c/w neuropathy Iron def anemia Plan: Cont to monitor off abx Trend WBC, 2/2 steroids 09/15 SP dexa #5 empiric given COVID Ag+, PCR neg 09/09 SP ceftaroline and levofloxacin #9 (abx d #08/02) 08/31 SP Ceftriaxone #2, Azithromcyin #2 -f/u cx -Monitor CBC/CMP, temperatures -aspiration precautions D/w RN Thank you for consulting [facility]. Will continue to follow along with you. Subjective Allergies: Coded Allergies: No Known Allergies (Unverified , 10/10/19) AF NAD on RA Labs pending Objective Last 24 Hour Vital Signs Date Time Temp Pulse Resp B/P (MAP) Pulse Ox O2 Delivery O2 Flow Rate FiO2 09/17/20 04:00 98.0 81 20 98/52 (67) 93 09/17/20 03:32 81 09/17/20 00:00 97.9 79 18 100/57 (71) 93 09/16/20 23:47 76 09/16/20 21:00 Nasal Cannula 2.0 09/16/20 20:19 82 09/16/20 20:15 99/51 (67) 09/16/20 20:00 96.8 80 18 93/38 (56) 94 09/16/20 18:58 70 18 97 Nasal Cannula 2.0 28 09/16/20 18:58 97 Nasal Cannula 2.0 28 09/16/20 16:00 97.6 81 20 104/61 (75) 100 09/16/20 16:00 80 09/16/20 12:00 74 09/16/20 12:00 97.5 77 20 110/70 (83) 95 09/16/20 09:00 Nasal Cannula 2.0 09/16/20 08:00 75 09/16/20 08:00 97.5 71 20 107/60 (76) 97 09/16/20 07:59 72 Height (Feet): 5 Height (Inches): 10.00 Weight (Pounds): 218 Gen: NAD in bed HEENT: NCAT, EOMI, PERRL CV: RRR Pulm: CTAB on RA Abd: Soft, NTND Ext: No c/c/e Neuro: Awake, interactive, pleasant Laboratory Tests Test 09/16/20 08:31 09/16/20 11:53 09/16/20 13:10 09/16/20 16:41 Arterial Blood pH 7.393 (7.350-7.450) Arterial Blood Partial Pressure CO2 39.5 mmHg (35.0-45.0) Arterial Blood Partial Pressure O2 79.9 mmHg (75.0-100.0) Arterial Blood HCO3 23.5 mmol/L (22.0-26.0) Arterial Blood Oxygen Saturation 95.9 % (95-100) Arterial Blood Base Excess -1.2 (-2-2) Geoffrey Test Positive POC Whole Blood Glucose 129 MG/DL (74-106) H 155 MG/DL (74-106) H Prothrombin Time 12.8 SEC (9.30-11.50) H Prothromb Time International Ratio 1.2 (0.9-1.1) H Activated Partial Thromboplast Time 27 SEC (23-33) Test 09/16/20 21:12 09/17/20 06:26 POC Whole Blood Glucose Pending Pending Current Medications Medications (Trade) Dose Ordered Sig/[place] Route PRN Reason Start Time Stop Time Status Last Admin Dose Admin Acetaminophen (Tylenol) 650 mg Q4H PRN ORAL FEVER 08/30/20 23:45 09/29/20 23:44 Calcium Acetate (Phoslo) 667 mg TIAC ORAL 09/08/20 11:30 12/07/20 11:29 09/17/20 06:29 Chlorhexidine Gluconate (Josiane-Hex 2%) 1 applic DAILY@1999 TOPIC 09/06/20 20:00 12/05/20 19:59 09/16/20 21:20 Dextrose (Dextrose 50%) 25 ml Q30M PRN IV Hypoglycemia 08/30/20 23:45 11/28/20 23:44 Dextrose (Dextrose 50%) 50 ml Q30M PRN IV Hypoglycemia 08/30/20 23:45 11/28/20 23:44 Epoetin Shlomo (Epoetin Shlomo(ESRD on dialysis)) 10,000 unit TUE-TUE-TUE SUBQ 09/08/20 21:00 12/07/20 20:59 09/15/20 20:34 Folic Acid (Folate) 3 mg DAILY ORAL 09/02/20 09:00 10/02/20 08:59 09/16/20 09:18 Heparin Sodium (Porcine) (Heparin 5000 units/ml) 5,000 units EVERY 12 HOURS SUBQ 08/31/20 09:00 10/15/20 08:59 09/16/20 21:19 Insulin Aspart (NovoLOG) BEFORE MEALS AND HS SUBQ 08/31/20 06:30 11/29/20 06:29 09/16/20 21:19 Levothyroxine Sodium (Synthroid) 100 mcg DAILY@0630 ORAL 09/02/20 06:30 10/02/20 06:29 09/17/20 06:29 Metoclopramide HCl (Reglan) 5 mg THREE TIMES A DAY ORAL 08/31/20 13:00 09/30/20 12:59 09/16/20 18:01 Ondansetron HCl (Zofran) 4 mg Q6H PRN IVP Nausea & Vomiting 08/30/20 23:45 09/29/20 23:44 Pantoprazole (Protonix) 40 mg EVERY 12 HOURS ORAL 08/31/20 21:00 09/30/20 20:59 09/16/20 21:20 Polyethylene Glycol (Miralax) 17 gm DAILYPRN PRN ORAL Constipation 08/30/20 23:45 09/29/20 23:44 Promethazine HCl/ Codeine (Phenergan with Codeine) 5 ml Q6H PRN ORAL cough 08/30/20 23:45 09/29/20 23:44 Theophylline (Theophylline) 80 mg BID ORAL 09/13/20 18:00 12/08/20 13:59 09/16/20 18:02 Nadia Calvin M.D. Sep 17, 2020 07:33
[2020-09-17 08:00] VITALS: BP 102/51
[2020-09-17] MEDS: Theophylline 80mg/15ml ORAL SCH ×2 (09:18→17:05)
[2020-09-17] MEDS: Heparin 5000 units/ml inj SUBQ SCH ×2 (09:21→21:19)
--- NOTE | 2020-09-17 11:41 | Pulmonology Progress Note ---
Subjective ROS Limited/Unobtainable: Yes Interval Events: no new events Allergies: Coded Allergies: No Known Allergies (Unverified , 10/10/19) All Systems: reviewed and negative except above Objective Last 24 Hour Vital Signs Date Time Temp Pulse Resp B/P (MAP) Pulse Ox O2 Delivery O2 Flow Rate FiO2 09/17/20 09:00 Nasal Cannula 2.0 09/17/20 08:00 97.5 75 18 102/51 (68) 96 09/17/20 08:00 81 09/17/20 04:00 98.0 81 20 98/52 (67) 93 09/17/20 03:32 81 09/17/20 00:00 97.9 79 18 100/57 (71) 93 09/16/20 23:47 76 09/16/20 21:00 Nasal Cannula 2.0 09/16/20 20:19 82 09/16/20 20:15 99/51 (67) 09/16/20 20:00 96.8 80 18 93/38 (56) 94 09/16/20 18:58 70 18 97 Nasal Cannula 2.0 28 09/16/20 18:58 97 Nasal Cannula 2.0 28 09/16/20 16:00 97.6 81 20 104/61 (75) 100 09/16/20 16:00 80 09/16/20 12:00 74 09/16/20 12:00 97.5 77 20 110/70 (83) 95 Intake and Output 09/16/20 09/17/20 19:00 07:00 Intake Total 400 ml 360 ml Balance 400 ml 360 ml Intake Oral 400 ml 360 ml # Voids 2 # Bowel Movements 1 3 General Appearance: WD/WN HEENT: normocephalic, atraumatic Respiratory: chest wall non-tender, lungs clear, normal breath sounds Cardiovascular: normal peripheral pulses, normal rate Abdomen: normal bowel sounds, soft, non tender, no scars Extremities: no cyanosis Skin: no rash 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 normal Lymphatic: no neck adenopathy Laboratory Tests 09/16/20 11:53: POC Whole Blood Glucose 129H 09/16/20 13:10: Prothrombin Time 12.8H, Prothromb Time International Ratio 1.2H, Activated Partial Thromboplast Time 27 09/16/20 16:41: POC Whole Blood Glucose 155H 09/16/20 21:12: POC Whole Blood Glucose [Pending] 09/17/20 06:26: POC Whole Blood Glucose [Pending] Current Medications Medications (Trade) Dose Ordered Sig/Braeden Route PRN Reason Start Time Stop Time Status Last Admin Dose Admin Acetaminophen (Tylenol) 650 mg Q4H PRN ORAL FEVER 08/30/20 23:45 09/29/20 23:44 Calcium Acetate (Phoslo) 667 mg TIAC ORAL 09/08/20 11:30 12/07/20 11:29 09/17/20 06:29 Chlorhexidine Gluconate (Josiane-Hex 2%) 1 applic DAILY@1999 TOPIC 09/06/20 20:00 12/05/20 19:59 09/16/20 21:20 Dextrose (Dextrose 50%) 25 ml Q30M PRN IV Hypoglycemia 08/30/20 23:45 11/28/20 23:44 Dextrose (Dextrose 50%) 50 ml Q30M PRN IV Hypoglycemia 08/30/20 23:45 11/28/20 23:44 Epoetin Shlomo (Epoetin Shlomo(ESRD on dialysis)) 10,000 unit TUE-TUE-TUE SUBQ 09/08/20 21:00 12/07/20 20:59 09/15/20 20:34 Folic Acid (Folate) 3 mg DAILY ORAL 09/02/20 09:00 10/02/20 08:59 09/17/20 09:19 Heparin Sodium (Porcine) (Heparin 5000 units/ml) 5,000 units EVERY 12 HOURS SUBQ 08/31/20 09:00 10/15/20 08:59 09/17/20 09:21 Insulin Aspart (NovoLOG) BEFORE MEALS AND HS SUBQ 08/31/20 06:30 11/29/20 06:29 09/16/20 21:19 Levothyroxine Sodium (Synthroid) 100 mcg DAILY@0630 ORAL 09/02/20 06:30 10/02/20 06:29 09/17/20 06:29 Metoclopramide HCl (Reglan) 5 mg THREE TIMES A DAY ORAL 08/31/20 13:00 09/30/20 12:59 09/17/20 09:18 Ondansetron HCl (Zofran) 4 mg Q6H PRN IVP Nausea & Vomiting 08/30/20 23:45 09/29/20 23:44 Pantoprazole (Protonix) 40 mg EVERY 12 HOURS ORAL 08/31/20 21:00 09/30/20 20:59 09/17/20 09:18 Polyethylene Glycol (Miralax) 17 gm DAILYPRN PRN ORAL Constipation 08/30/20 23:45 09/29/20 23:44 Promethazine HCl/ Codeine (Phenergan with Codeine) 5 ml Q6H PRN ORAL cough 08/30/20 23:45 09/29/20 23:44 Theophylline (Theophylline) 80 mg BID ORAL 09/13/20 18:00 12/08/20 13:59 09/17/20 09:18 Assessment/Plan Problems: (1) 2019 novel coronavirus disease (COVID-19) (2) Acute on chronic diastolic (congestive) heart failure (3) Gout (4) Renal failure (ARF), acute on chronic (5) Diabetes mellitus (6) Left bundle branch block (LBBB) (7) Cardiac left ventricular ejection fraction greater than 40 percent (8) Grade I diastolic dysfunction (9) History of hypertension Assessment/Plan US of chest for thoracentesis, because of persistent leukocytosis still pending doing better COVID positive, repeat again today sitting up in the chair f/u ID recommendations f/u inflammatory markers. O2 titrate to keep sat > 92%, currently down to O2 via NC DVT prophylaxis\ dc planning Tiana Cool MD Sep 17, 2020 11:41
[2020-09-17 12:00] VITALS: BP 117/69
--- NOTE | 2020-09-17 12:21 | Cardiac Electrophysiology PN ---
Assessment/Plan Assessment/Plan 1. Volume overload due to renal failure Echo showed EF of 50%. On HD after PermCath placement 09/05. Next HD tomorrow 2. Left bundle-branch block. 3. Diastolic dysfunction. EF 50%. 4. Hyperkalemia. Got Kayexalate and on HD by Dr. Severino. 5. Diabetic nephropathy. 6. Renal failure. BUN/Cr 81/3.8 S/P PermCath and dialysis 7. Hypothyroidism. 8. Iron-deficiency anemia. 9. Right pleural effusion. S/P 800cc Right thoracentesis 09/03/20 10. 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 Was in isolation as Rapid Covid was positive on 09/10 Off isolation today as PCR is negative x2 Objective Last 24 Hour Vital Signs Date Time Temp Pulse Resp B/P (MAP) Pulse Ox O2 Delivery O2 Flow Rate FiO2 09/17/20 12:00 97.1 80 18 117/69 (85) 98 09/17/20 09:00 Nasal Cannula 2.0 09/17/20 08:00 97.5 75 18 102/51 (68) 96 09/17/20 08:00 81 09/17/20 04:00 98.0 81 20 98/52 (67) 93 09/17/20 03:32 81 09/17/20 00:00 97.9 79 18 100/57 (71) 93 09/16/20 23:47 76 09/16/20 21:00 Nasal Cannula 2.0 09/16/20 20:19 82 09/16/20 20:15 99/51 (67) 09/16/20 20:00 96.8 80 18 93/38 (56) 94 09/16/20 18:58 70 18 97 Nasal Cannula 2.0 28 09/16/20 18:58 97 Nasal Cannula 2.0 28 09/16/20 16:00 97.6 81 20 104/61 (75) 100 09/16/20 16:00 80 Intake and Output 09/16/20 09/17/20 19:00 07:00 Intake Total 400 ml 360 ml Balance 400 ml 360 ml Intake Oral 400 ml 360 ml # Voids 2 # Bowel Movements 1 3 Laboratory Tests Test 09/16/20 13:10 09/16/20 16:41 09/16/20 21:12 09/17/20 06:26 Prothrombin Time 12.8 SEC (9.30-11.50) H Prothromb Time International Ratio 1.2 (0.9-1.1) H Activated Partial Thromboplast Time 27 SEC (23-33) POC Whole Blood Glucose 155 MG/DL (74-106) H Pending Pending Test 09/17/20 11:42 POC Whole Blood Glucose 151 MG/DL (74-106) H Objective HEAD AND NECK: No JVD. LUNGS: Coarse rhonchi, bibasilar rales.Right chest PermCath CARDIOVASCULAR: Regular S1 and S2 with no gallop. ABDOMEN: Soft. EXTREMITIES: Bilateral 2+ pitting edema and bandage on both legs Sina Paulson MD Sep 17, 2020 12:21
--- NOTE | 2020-09-17 13:06 | Nephrology Progress Note ---
Assessment/Plan Problem List: (1) Renal failure (ARF), acute on chronic (2) Hyperkalemia (3) Hypothyroidism (4) Acute on chronic diastolic (congestive) heart failure (5) Diabetic nephropathy (6) Pneumonia Assessment: Leukocytosis, abnormal chest x-ray (7) Anemia Assessment 1) Renal failure (ARF), acute on chronic (2) Diabetes mellitus (3) Hypoglycemia (4) Hyperkalemia (5) Diabetic nephropathy (6) H/o Pleural effusion (7) Morbid obesity (8) Low Iron Anemia (9) HypoThyroidism Plan September 17: Dialyzed yesterday. No labs drawn today. Due due for dialysis tomorrow. Continue per current management. September 16: Due for dialysis today. Labs reviewed. Continue per consultants. September 15: Patient was dialyzed yesterday. Status quo. Labs reviewed. Next hemodialysis tomorrow. September 14: Patient was dialyzed September 12. Due for dialysis today. Labs reviewed. Continue per consultants. September 13: Patient was dialyzed yesterday. Medication reviewed. Labs reviewed. White blood cells rising. Currently on dexamethasone IV for COVID-19 will dialyze again tomorrow September 12: Patient due for dialysis and ultrafiltration today. Labs reviewed. Medication list reviewed. Continue per consultants. September 11: Patient dialyzed yesterday. Labs reviewed. Patient is now COVID- 19 test positive. On isolation. Will dialyze again tomorrow. Continue per consultants. September 10: Patient due for dialysis and ultrafiltration today. Labs reviewed. And medication list reviewed. September 09: Patient was dialyzed yesterday. Due for dialysis and ultrafiltration tomorrow. Will start theophylline for although lumbar diet l actation and also improvement of the heart rate. Recheck TSH in a.m. Continue as is. DC Chan catheter. September 08: Patient due for dialysis and ultrafiltration today. Labs reviewed. PhosLo given. Continue as is. September 07: Patient was dialyzed 2 days in a row. Ultra filtrated 3 L a day. Patient continues to be edematous however much less. Will dialyze again tomorrow with ultrafiltration. Will monitor renal parameters. September 06: Patient was dialyzed yesterday. Ultrafiltration was done. Patient remains edematous. Will do another dialysis and aim 3 L fluid removal as tolerates. Discontinue IV Lasix and oral hydralazine. Will adjust blood pressure medication as needed. Discussed with RN, antibiotics intravenously if possible should be changed to oral since there is no IV line available. 1 dose of Venofer 200 mg ordered to be given during dialysis. Subcutaneous Epogen ordered for anemia. September 05: New 24-hour urine suggestive of creatinine clearance of 3. Patient due for insertion of dialysis catheter. Hemodialysis and ultrafiltration after insertion of catheter. September 04: New 24-hour urine test is in process. Discussed with RN. Patient was short of breath overnight. ABG ordered. 1 dose of Zaroxolyn ordered. Patient has fluid overload, and need ultrafiltration. Blood cultures negative. Leukocytosis resolved. Will order placement of permacath and dialysis and ultrafiltration. September 03: The 24-hour urine results appears to be an error in view of total volume compared to intake and output records. Today's labs reviewed. Serum creatinine higher. Talk to the nursing charge of the floor and will order another 24-hour urine collection. Meanwhile continue per ID treatment for UTI and leukocytosis. Dexamethasone on the medication list was questioned. Patient may require dialysis if continues to have worsening renal parameters. September 02: Consent for dialysis catheter is taken. Catheter placement deferred due to leukocytosis. Surveillance blood culture ordered. Urine cultu re ordered. Blood pressure medication adjusted. 24-hour urine for creatinine clearance and total protein pending. Previously: Chan Cath 24 H CrCl and total protein ordered Off IV fluids, on IV Lasix Adjust BP meds Previous 2D echocardiogram ejection fraction is reported to 50% Previous Kidney ultrasound noted. Current kidney ultrasound results below Anemia work-up As needed Kayexalate for high potassium Keep blood pressure and blood sugar in check Monitor renal parameters Requires HD treatment [facility] KIDNEY IMPRESSION: 1. Ascites. 2. Bilateral pleural effusions. 3. Complex right renal cysts of uncertain etiology. This complex cyst is unchanged from the study of 01/12/2020. 4. Mildly atrophic right kidney. 5. Magnetic resonance imaging of the abdomen with gadolinium administration is advised for further evaluation of complex right renal cyst. Subjective ROS Limited/Unobtainable: No Constitutional: Reports: malaise Objective Objective Last 24 Hour Vital Signs Date Time Temp Pulse Resp B/P (MAP) Pulse Ox O2 Delivery O2 Flow Rate FiO2 09/17/20 12:00 97.1 80 18 117/69 (85) 98 09/17/20 09:00 Nasal Cannula 2.0 09/17/20 08:00 97.5 75 18 102/51 (68) 96 09/17/20 08:00 81 09/17/20 04:00 98.0 81 20 98/52 (67) 93 09/17/20 03:32 81 09/17/20 00:00 97.9 79 18 100/57 (71) 93 09/16/20 23:47 76 09/16/20 21:00 Nasal Cannula 2.0 09/16/20 20:19 82 09/16/20 20:15 99/51 (67) 09/16/20 20:00 96.8 80 18 93/38 (56) 94 09/16/20 18:58 70 18 97 Nasal Cannula 2.0 28 09/16/20 18:58 97 Nasal Cannula 2.0 28 09/16/20 16:00 97.6 81 20 104/61 (75) 100 09/16/20 16:00 80 Intake and Output 09/16/20 09/17/20 19:00 07:00 Intake Total 400 ml 360 ml Balance 400 ml 360 ml Intake Oral 400 ml 360 ml # Voids 2 # Bowel Movements 1 3 Current Medications Medications (Trade) Dose Ordered Sig/Braeden Route PRN Reason Start Time Stop Time Status Last Admin Dose Admin Acetaminophen (Tylenol) 650 mg Q4H PRN ORAL FEVER 08/30/20 23:45 09/29/20 23:44 Calcium Acetate (Phoslo) 667 mg TIAC ORAL 09/08/20 11:30 12/07/20 11:29 09/17/20 12:27 Chlorhexidine Gluconate (Josiane-Hex 2%) 1 applic DAILY@1999 TOPIC 09/06/20 20:00 12/05/20 19:59 09/16/20 21:20 Dextrose (Dextrose 50%) 25 ml Q30M PRN IV Hypoglycemia 08/30/20 23:45 11/28/20 23:44 Dextrose (Dextrose 50%) 50 ml Q30M PRN IV Hypoglycemia 08/30/20 23:45 11/28/20 23:44 Epoetin Shlomo (Epoetin Shlomo(ESRD on dialysis)) 10,000 unit MON-WED-FRI SUBQ 09/08/20 21:00 12/07/20 20:59 09/15/20 20:34 Folic Acid (Folate) 3 mg DAILY ORAL 09/02/20 09:00 10/02/20 08:59 09/17/20 09:19 Heparin Sodium (Porcine) (Heparin 5000 units/ml) 5,000 units EVERY 12 HOURS SUBQ 08/31/20 09:00 10/15/20 08:59 09/17/20 09:21 Insulin Aspart (NovoLOG) BEFORE MEALS AND HS SUBQ 08/31/20 06:30 11/29/20 06:29 09/17/20 12:33 Levothyroxine Sodium (Synthroid) 100 mcg DAILY@0630 ORAL 09/02/20 06:30 10/02/20 06:29 09/17/20 06:29 Metoclopramide HCl (Reglan) 5 mg THREE TIMES A DAY ORAL 08/31/20 13:00 09/30/20 12:59 09/17/20 12:27 Ondansetron HCl (Zofran) 4 mg Q6H PRN IVP Nausea & Vomiting 08/30/20 23:45 09/29/20 23:44 Pantoprazole (Protonix) 40 mg EVERY 12 HOURS ORAL 08/31/20 21:00 09/30/20 20:59 09/17/20 09:18 Polyethylene Glycol (Miralax) 17 gm DAILYPRN PRN ORAL Constipation 08/30/20 23:45 09/29/20 23:44 Promethazine HCl/ Codeine (Phenergan with Codeine) 5 ml Q6H PRN ORAL cough 08/30/20 23:45 09/29/20 23:44 Theophylline (Theophylline) 80 mg BID ORAL 09/13/20 18:00 12/08/20 13:59 09/17/20 09:18 Laboratory Tests 09/16/20 13:10: Prothrombin Time 12.8H, Prothromb Time International Ratio 1.2H, Activated Partial Thromboplast Time 27 09/16/20 16:41: POC Whole Blood Glucose 155H 09/16/20 21:12: POC Whole Blood Glucose [Pending] 09/17/20 06:26: POC Whole Blood Glucose [Pending] 09/17/20 11:42: POC Whole Blood Glucose 151H Height (Feet): 5 Height (Inches): 10.00 Weight (Pounds): 218 General Appearance: no apparent distress, lethargic Cardiovascular: normal rate Respiratory/Chest: decreased breath sounds Abdomen: distended Jay Severino MD Sep 17, 2020 13:06
--- NOTE | 2020-09-17 15:22 | Pre-Procedure Note/Attestation ---
Pre-Procedure Note/Attestation Complete Prior to Procedure Planned Procedure: right Procedure Narrative: thoracentesis Indications for Procedure Pre-Operative Diagnosis: pleural effusion Attestation I attest that I discussed the nature of the procedure; its benefits; risks and complications; and alternatives (and the risks and benefits of such alternatives), prior to the procedure, with the patient (or the patient's legal indirect sales representative). I attest that, if there was a reasonable possibility of needing a blood tra nsfusion, the patient (or the patient's legal indirect sales representative) was given the [facility] standardized written summary, pursuant to the [place] Blood Safety Act ([place] Health and Safety Code # 1645, as amended). I attest that I re-evaluated the patient just prior to the surgery and that there has been no change in the patient's H&P, except as documented below: Bhaskar Vizcaino MD Sep 17, 2020 15:22
--- NOTE | 2020-09-17 15:23 | Brief Operative Note ---
Immediate Post Operative Note Operative Note Pre-op Diagnosis: pleural effusion Procedure: thoracentesis Surgeon: misti sosa Anesthesia: local Specimen: yes - 50 ml fluid sent to lab Complications: none Fluids: none Implant(s) used?: No Bhaskar Sosa MD Sep 17, 2020 15:23
--- NOTE | 2020-09-17 15:46 | Diagnostic Imaging Report ---
Indication: Postthoracentesis Technique: One view of the chest Comparison: 09/15/2020 Findings: Interim resolution of previously demonstrated right pleural effusion. No pneumothorax. Bilateral interstitial congestive changes persist. Cardiomegaly persists. Right jugular tunneled dialysis catheter remains. Impression: Resolved right pleural effusion, postthoracentesis. No radiographically evident complication.
[2020-09-17 16:00] VITALS: BP 116/59
--- NOTE | 2020-09-17 16:19 | Diagnostic Imaging Report ---
Indications: Pleural effusion, shortness of breath Technique: Ultrasound used to localize optimal puncture site. Sterile prepping and draping right chest. Local anesthesia with 1% lidocaine. Under real-time ultrasound guidance, puncture pleural space using thoracentesis needle. Stylet removed. Catheter placed to vacuum bottle suction. Total 450 milliliters of fluid aspirated. Patient tolerated procedure well, without immediate complication. Findings: Followup sonography demonstrates complete resolution of pleural fluid. Impression: Successful ultrasound-guided thoracentesis, yielding 450 milliliters of fluid
--- NOTE | 2020-09-17 17:44 | Surgery Progress Note ---
Surgery Progress Note Subjective Additional Comments leukocytosis exam stable no n/v d/c planning Objective Last 24 Hour Vital Signs Date Time Temp Pulse Resp B/P (MAP) Pulse Ox O2 Delivery O2 Flow Rate FiO2 09/17/20 16:00 96.8 75 18 116/59 (78) 98 09/17/20 12:00 97.1 80 18 117/69 (85) 98 09/17/20 12:00 78 09/17/20 09:00 Nasal Cannula 2.0 09/17/20 08:00 97.5 75 18 102/51 (68) 96 09/17/20 08:00 81 09/17/20 04:00 98.0 81 20 98/52 (67) 93 09/17/20 03:32 81 09/17/20 00:00 97.9 79 18 100/57 (71) 93 09/16/20 23:47 76 09/16/20 21:00 Nasal Cannula 2.0 09/16/20 20:19 82 09/16/20 20:15 99/51 (67) 09/16/20 20:00 96.8 80 18 93/38 (56) 94 09/16/20 18:58 70 18 97 Nasal Cannula 2.0 28 09/16/20 18:58 97 Nasal Cannula 2.0 28 I&O Intake and Output 09/16/20 09/17/20 19:00 07:00 Intake Total 400 ml 360 ml Balance 400 ml 360 ml Intake Oral 400 ml 360 ml # Voids 2 # Bowel Movements 1 3 Dressing: saturated Cardiovascular: RSR Respiratory: decreased breath sounds Abdomen: non-tender, present bowel sounds, non-distended Extremities: no tenderness, no cyanosis Laboratory Tests Test 09/16/20 21:12 09/17/20 06:26 09/17/20 11:42 09/17/20 14:10 POC Whole Blood Glucose Pending Pending 151 MG/DL (74-106) H Body Fluid Source Pending Body Fluid Volume Pending Body Fluid Appearance Pending Body Fluid RBC Pending Body Fluid Total Nucleated Cells Pending Body Fluid Polynuclear WBCs (%) Pending Body Fluid Mononuclear WBCs (%) Pending Body Fluid Mesothelial Cells (%) Pending Body Fluid Albumin Pending Body Fluid Comment Pending Test 09/17/20 16:01 POC Whole Blood Glucose Pending Plan Problems: (1) Acute on chronic diastolic (congestive) heart failure (2) Anemia (3) Acute respiratory failure Assessment & Plan: Large right pleural effusion persists, unchanged. Bilateral interstitial and airspace edema, cardiomegaly persists, probably unchanged allowing for differences in technique and inspiration (4) ACS (acute coronary syndrome) (5) History of hypertension (6) Moderate pulmonary arterial systolic hypertension (7) Left bundle branch block (LBBB) (8) Diabetes mellitus (9) Diabetic nephropathy (10) Renal failure (ARF), acute on chronic (11) Hyperkalemia (12) Bacteremia (13) CAD (coronary artery disease) (14) Hypothyroidism (15) Cardiac left ventricular ejection fraction greater than 40 percent (16) Grade I diastolic dysfunction (17) UTI (urinary tract infection) (18) Ulcers of both lower legs (19) Open wounds involving multiple regions of lower extremity Assessment & Plan: Patient identified admission having bilateral lower extremity edema open wounds as well as necrotic ulcerations. Patient states she has had this for some time now and acutely worsening as well. Bilateral lower leg wounds do to blisters from edema. Right medial lower leg wound 2.1x4.2x0.2 dark brown scab . Right anterior lower leg wound 5.6x5.3x0.2 pink wound bed. Right distal anterior lower leg 4.0x6.0x0.2 pink wound bed . Large amount serous drainage right leg wounds , Xeroform ,gauze,abd pad and kerlix applied change every shift. Left lower leg wound 3.7x5.0x0.3 100% green slough large amount serous drainage noted with small blisters ifeoma wound, Thera Honey, gauze,abd pad and kerlix applied, change every shift. Local wound care plan initiate Nutritional optimization Turn every 2 hours Elevate extremities Thank you will follow recommendations Right deep veins: Unremarkable. No DVT in the right common femoral, femoral, proximal deep femoral or popliteal veins. The veins demonstrate normal color flow, are normally compressible, with normal phasic flow and/or augmentation response. Right superficial veins: Unremarkable. No thrombus in the visualized right great saphenous vein. Left deep veins: Unremarkable. No DVT in the left common femoral, femoral, proximal deep femoral or popliteal veins. The veins demonstrate normal color flow, are normally compressible, with normal phasic flow and/or augmentation response. Left superficial veins: Unremarkable. No thrombus in the visualized left great saphenous vein. Soft tissues: No acute findings. No popliteal cyst. IMPRESSION: Normal bilateral lower extremity duplex venous ultrasound. DAILY ESTIMATED NEEDS: Needs based on ARF, now HD 65.7kg abw 25-30 kcals/kg 5415-1968 total kcals 1.25-1.8 g protein/kg 82-118 g total protein Fluid per MD, HD pending NUTRITION DIAGNOSIS: Increased pro needs r/t renal dysfunction as evidenced by pt w/ ARF, w/ now pending HD, K on adm (5.8), elev BUN (81), elev Creat (3.8), elev phos and mg. CURRENT DIET:Renal/ CCHO MED PO DIET RECOMMENDATIONS: Renal / CCHO LOW diet + high pro snacks in b/w meals ADDITIONAL RECOMMENDATIONS: 1) Maintain calibrated bed scale wts 2) High pro snacks in b/w meals 3) Rec WC eval-> add nephrovite 1 tab daily Vit C per nephro (20) Pneumonia (21) Gout (22) 2019 novel coronavirus disease (COVID-19) Assessment & Plan: +++ during hospitalization on tx isolation (23) COVID-19 Omar Tellez Sep 17, 2020 17:44
[2020-09-17 20:00] VITALS: BP 91/57
--- NOTE | 2020-09-17 21:09 | General Progress Note ---
Subjective ROS Limited/Unobtainable: Yes Allergies: Coded Allergies: No Known Allergies (Unverified , 10/10/19) Objective Last 24 Hour Vital Signs Date Time Temp Pulse Resp B/P (MAP) Pulse Ox O2 Delivery O2 Flow Rate FiO2 09/17/20 16:00 96.8 75 18 116/59 (78) 98 09/17/20 16:00 79 09/17/20 12:00 97.1 80 18 117/69 (85) 98 09/17/20 12:00 78 09/17/20 09:00 Nasal Cannula 2.0 09/17/20 08:00 97.5 75 18 102/51 (68) 96 09/17/20 08:00 81 09/17/20 04:00 98.0 81 20 98/52 (67) 93 09/17/20 03:32 81 09/17/20 00:00 97.9 79 18 100/57 (71) 93 09/16/20 23:47 76 Intake and Output 09/16/20 09/17/20 19:00 07:00 Intake Total 400 ml 360 ml Balance 400 ml 360 ml Intake Oral 400 ml 360 ml # Voids 2 # Bowel Movements 1 3 Laboratory Tests 09/16/20 21:12: POC Whole Blood Glucose [Pending] 09/17/20 06:26: POC Whole Blood Glucose [Pending] 09/17/20 11:42: POC Whole Blood Glucose 151H 09/17/20 14:10: Body Fluid Source Thoracentesis, Body Fluid Volume 27, Body Fluid Appearance Slightly cloudy, [place] [address], Body Fluid Total Nucleated Cells 15, Body Fluid Polynuclear WBCs (%) 56, Body Fluid Mononuclear WBCs (%) 42, Body Fluid Mesothelial Cells (%) 2, Body Fluid Albumin [Pending], Body Fluid Comment 09/17/20 16:01: POC Whole Blood Glucose [Pending] 09/17/20 20:22: POC Whole Blood Glucose 133H Height (Feet): 5 Height (Inches): 10.00 Weight (Pounds): 218 Assessment/Plan Problem List: (1) Anemia ICD Codes: D64.9 - Anemia, unspecified SNOMED: 656201699 (2) Ulcers of both lower legs ICD Codes: L97.919 - Non-pressure chronic ulcer of unspecified part of right lower leg with unspecified severity; L97.929 - Non-pressure chronic ulcer of unspecified part of left lower leg with unspecified severity SNOMED: 28600319, 231580288 (3) Open wounds involving multiple regions of lower extremity ICD Codes: S81.809A - Unspecified open wound, unspecified lower leg, initial encounter SNOMED: 373673681 (4) Pneumonia ICD Codes: J18.9 - Pneumonia, unspecified organism SNOMED: 679429187 (5) History of hypertension ICD Codes: Z86.79 - Personal history of other diseases of the circulatory system SNOMED: 948355444 (6) Diabetes mellitus ICD Codes: E11.9 - Type 2 diabetes mellitus without complications SNOMED: 20430470 (7) Renal failure (ARF), acute on chronic ICD Codes: N17.9 - Acute kidney failure, unspecified; N18.9 - Chronic kidney disease, unspecified SNOMED: 575525144 (8) Hyperkalemia ICD Codes: E87.5 - Hyperkalemia SNOMED: 68619367 (9) CAD (coronary artery disease) ICD Codes: I25.10 - Atherosclerotic heart disease of [place] coronary artery without angina pectoris SNOMED: 69152187 (10) Hypothyroidism ICD Codes: E03.9 - Hypothyroidism, unspecified SNOMED: 91492282 (11) Cardiac left ventricular ejection fraction greater than 40 percent ICD Codes: R94.30 - Abnormal result of cardiovascular function study, unspecified SNOMED: 168252015 (12) Grade I diastolic dysfunction ICD Codes: I51.9 - Heart disease, unspecified SNOMED: 6432553 Status: progressing, unchanged Assessment/Plan: pleural effusion thoracocentesis monitor for pneumothorax Tj Walker MD Sep 17, 2020 21:09
[2020-09-17] MEDS: Epoetin Alfa-EPBX(ESRD on dialysis)10,000 unit/ml vial SUBQ SCH (21:18)
[2020-09-17] MEDS: Dyna-Hex 2% Top Sol 2oz TOPIC SCH (21:18)
[2020-09-18] VITALS (7 sets, daily range): BP systolic 90–124; BP diastolic 48–78
[2020-09-18] MEDS: NovoLOG Insulin Flexpen SUBQ SCH ×4 (06:30→20:47)
--- NOTE | 2020-09-18 06:54 | Hematology/Onc Progress Note ---
Assessment/Plan Assessment/Plan Assessment and Recs: # Anemia of chronic disease due to underlying chronic medical issues, multifactorial v Gi bleed --> Anemia workup has been ordered, rule out gi bleed --> No evidence of hemolysis is noted, peripheral smear has been reviewed. --> Hgb goal >7. Transfuse prn. --> EPOGEN AND IV IRON STARTED, CONTINUE --> Medications have been reviewed --> hgb 7.7-->8-->8.4-->8->8->8.7->8.8-->9.3 --> egd w/ colo 01/15/20 Gastritis, status post biopsy. Total of 11 polyps removed, Internal hemorrhoids. # Thromocytopenia likely related to infection v reactive process, DOES HAVE CIRRHOSIS --> hep and hiv are neg --> imaging abd has been reviewed. noted liver disease, cirrhosis --> peripheral smear noted --> plt 75-->108-->120-->111-->132 # Coagulation defect, multifactorial usually related to poor PO intake versus medications, versus hepatitis v cirrhosis --> administer Vitamin K if patient is bleeding or FFP if the INR is >10 --> hold off on ffp unless active procedure/bleeding, first begin with vit K 10 --> mixing study as needed # Renal failure (ARF), acute on chronic --> ivf as per renal --> renal us reviewed --> improved --> HD as per renal # Hypoglycemia -> endo eval prn # Pleural effusion --> diuresis as needed --> monitor ivf --> HD # Hyperkalemia # Obesity # Dvt ppx heparin sq The timing of this note does not necessarily reflect the time of the patient was seen. Greatly appreciate consultation. Subjective HEENT: Denies: no symptoms, eye pain, blurred vision, tearing, double vision, ear pain, ear discharge, nose pain, nose congestion, throat pain, throat swelling, mouth pain, mouth swelling, other Cardiovascular: Denies: no symptoms, chest pain, edema, irregular heart rate, lightheadedness, palpitations, syncope, other Genitourinary: Denies: no symptoms, burning, discharge, frequency, flank pain, hematuria, incontinence, pain, urgency, other Neurologic/Psychiatric: Denies: no symptoms, anxiety, depressed, emotional problems, headache, numbness, paresthesia, pre-existing deficit, seizure, tingling, tremors, weakness, other Hematologic/Lymphatic: Denies: no symptoms, anemia, easy bleeding, easy bruising, adenopathy, other Allergies: Coded Allergies: No Known Allergies (Unverified , 10/10/19) Subjective 09/08 labs reviewed, hd as per renal, fluid overload improved, labs noted, with dropping plt 09/09 pending plt count this am, on abx, broad spectrum, no other events 09/10 labs pending, is comfortable, is on 3l nc, no bleeding 09/11 on 5L weaning, no night sweats, meds reviewed 09/12 labs noted, no bleeding, plts improved, meds reviewed 09/14 labs reviewed, meds noted, on hd as per renal permacath in place 09/15 labs are pending, on iso for covid19, no bleeding 09/16 labs reviewed, hgb 8.8, plt 111, no night sweats, meds noted, talkative 09/17 awake, alert, most recent plt better, no night sweats, meds noted 09/18 meds reviewed, no bleeding, meds noted, labs ordered for am Objective Objective Current Medications Medications (Trade) Dose Ordered Sig/[place] Route PRN Reason Start Time Stop Time Status Last Admin Dose Admin Acetaminophen (Tylenol) 650 mg Q4H PRN ORAL FEVER 08/30/20 23:45 09/29/20 23:44 Calcium Acetate (Phoslo) 667 mg TIAC ORAL 09/08/20 11:30 12/07/20 11:29 09/18/20 06:47 Chlorhexidine Gluconate (Josiane-Hex 2%) 1 applic DAILY@1999 TOPIC 09/06/20 20:00 12/05/20 19:59 09/17/20 21:18 Dextrose (Dextrose 50%) 25 ml Q30M PRN IV Hypoglycemia 08/30/20 23:45 11/28/20 23:44 Dextrose (Dextrose 50%) 50 ml Q30M PRN IV Hypoglycemia 08/30/20 23:45 11/28/20 23:44 Epoetin Shlomo (Epoetin Shlomo(ESRD on dialysis)) 10,000 unit TUE-WED-TUE SUBQ 09/08/20 21:00 12/07/20 20:59 09/17/20 21:18 Folic Acid (Folate) 3 mg DAILY ORAL 09/02/20 09:00 10/02/20 08:59 09/17/20 09:19 Heparin Sodium (Porcine) (Heparin 5000 units/ml) 5,000 units EVERY 12 HOURS SUBQ 08/31/20 09:00 10/15/20 08:59 09/17/20 21:19 Insulin Aspart (NovoLOG) BEFORE MEALS AND HS SUBQ 08/31/20 06:30 11/29/20 06:29 09/17/20 17:05 Levothyroxine Sodium (Synthroid) 100 mcg DAILY@0630 ORAL 09/02/20 06:30 10/02/20 06:29 09/18/20 06:47 Metoclopramide HCl (Reglan) 5 mg THREE TIMES A DAY ORAL 08/31/20 13:00 09/30/20 12:59 09/17/20 17:05 Ondansetron HCl (Zofran) 4 mg Q6H PRN IVP Nausea & Vomiting 08/30/20 23:45 09/29/20 23:44 Pantoprazole (Protonix) 40 mg EVERY 12 HOURS ORAL 08/31/20 21:00 09/30/20 20:59 09/17/20 21:18 Polyethylene Glycol (Miralax) 17 gm DAILYPRN PRN ORAL Constipation 08/30/20 23:45 09/29/20 23:44 Promethazine HCl/ Codeine (Phenergan with Codeine) 5 ml Q6H PRN ORAL cough 08/30/20 23:45 09/29/20 23:44 Theophylline (Theophylline) 80 mg BID ORAL 09/13/20 18:00 12/08/20 13:59 09/17/20 17:05 Last 24 Hour Vital Signs Date Time Temp Pulse Resp B/P (MAP) Pulse Ox O2 Delivery O2 Flow Rate FiO2 09/18/20 04:00 98.8 80 18 100/48 (65) 98 09/18/20 03:35 80 09/18/20 01:22 97 Nasal Cannula 2.0 28 09/18/20 00:00 98.9 78 20 90/48 (62) 98 09/17/20 23:32 80 09/17/20 21:00 Nasal Cannula 2.0 09/17/20 20:10 78 18 98 Nasal Cannula 2.0 28 09/17/20 20:00 84 09/17/20 20:00 98.1 80 18 91/57 (68) 98 09/17/20 16:00 96.8 75 18 116/59 (78) 98 09/17/20 16:00 79 09/17/20 12:00 97.1 80 18 117/69 (85) 98 09/17/20 12:00 78 09/17/20 09:00 Nasal Cannula 2.0 09/17/20 08:00 97.5 75 18 102/51 (68) 96 09/17/20 08:00 81 09/17/20 04:00 98.0 81 20 98/52 (67) 93 09/17/20 03:32 81 09/17/20 00:00 97.9 79 18 100/57 (71) 93 09/16/20 23:47 76 09/16/20 21:00 Nasal Cannula 2.0 09/16/20 20:19 82 09/16/20 20:15 99/51 (67) 09/16/20 20:00 96.8 80 18 93/38 (56) 94 09/16/20 18:58 70 18 97 Nasal Cannula 2.0 28 09/16/20 18:58 97 Nasal Cannula 2.0 28 09/16/20 16:00 97.6 81 20 104/61 (75) 100 09/16/20 16:00 80 09/16/20 12:00 74 09/16/20 12:00 97.5 77 20 110/70 (83) 95 09/16/20 09:00 Nasal Cannula 2.0 09/16/20 08:00 75 09/16/20 08:00 97.5 71 20 107/60 (76) 97 09/16/20 07:59 72 09/16/20 07:26 67 18 97 Nasal Cannula 2.0 28 09/16/20 07:26 97 Nasal Cannula 2.0 28 Intake and Output 09/17/20 09/18/20 19:00 07:00 Intake Total 850 ml 200 ml Balance 850 ml 200 ml Intake Oral 850 ml 200 ml # Bowel Movements 3 1 Labs Test 09/15/20 12:26 09/15/20 18:04 09/15/20 20:27 09/16/20 05:51 POC Whole Blood Glucose 220 MG/DL (74-106) 164 MG/DL (74-106) 157 MG/DL (74-106) White Blood Count 15.8 K/UL (4.8-10.8) Red Blood Count 3.05 M/UL (4.20-5.40) Hemoglobin 9.3 G/DL (12.0-16.0) Hematocrit 30.9 % (37.0-47.0) Mean Corpuscular Volume 101 FL (80-99) Mean Corpuscular Hemoglobin 30.5 PG (27.0-31.0) Mean Corpuscular Hemoglobin Concent 30.1 G/DL (32.0-36.0) Red Cell Distribution Width 23.3 % (11.6-14.8) Platelet Count 132 K/UL (150-450) Mean Platelet Volume 7.0 FL (6.5-10.1) Neutrophils (%) (Auto) 80.1 % (45.0-75.0) Lymphocytes (%) (Auto) 10.7 % (20.0-45.0) Monocytes (%) (Auto) 7.0 % (1.0-10.0) Eosinophils (%) (Auto) 1.5 % (0.0-3.0) Basophils (%) (Auto) 0.6 % (0.0-2.0) Sodium Level 133 MMOL/L (136-145) Potassium Level 4.3 MMOL/L (3.5-5.1) Chloride Level 98 MMOL/L (98-107) Carbon Dioxide Level 27 MMOL/L (21-32) Anion Gap 8 mmol/L (5-15) Blood Urea Nitrogen 72 mg/dL (7-18) Creatinine 5.2 MG/DL (0.55-1.30) Estimat Glomerular Filtration Rate 8.2 mL/min (>60) Glucose Level 116 MG/DL (74-106) Uric Acid 3.7 MG/DL (2.6-7.2) Calcium Level 8.5 MG/DL (8.5-10.1) Phosphorus Level 4.1 MG/DL (2.5-4.9) Magnesium Level 2.8 MG/DL (1.8-2.4) Total Bilirubin 0.7 MG/DL (0.2-1.0) Aspartate Amino Transf (AST/SGOT) 34 U/L (15-37) Alanine Aminotransferase (ALT/SGPT) 22 U/L (12-78) Alkaline Phosphatase 208 U/L (46-116) C-Reactive Protein, Quantitative 3.7 mg/dL (0.00-0.90) Total Protein 6.8 G/DL (6.4-8.2) Albumin 2.9 G/DL (3.4-5.0) Globulin 3.9 g/dL Albumin/Globulin Ratio 0.7 (1.0-2.7) Test 09/16/20 07:05 09/16/20 08:31 09/16/20 11:53 09/16/20 13:10 POC Whole Blood Glucose 132 MG/DL (74-106) 129 MG/DL (74-106) Arterial Blood pH 7.393 (7.350-7.450) Arterial Blood Partial Pressure CO2 39.5 mmHg (35.0-45.0) Arterial Blood Partial Pressure O2 79.9 mmHg (75.0-100.0) Arterial Blood HCO3 23.5 mmol/L (22.0-26.0) Arterial Blood Oxygen Saturation 95.9 % (95-100) Arterial Blood Base Excess -1.2 (-2-2) Geoffrey Test Positive Prothrombin Time 12.8 SEC (9.30-11.50) Prothromb Time International Ratio 1.2 (0.9-1.1) Activated Partial Thromboplast Time 27 SEC (23-33) Test 09/16/20 14:10 09/16/20 16:41 09/16/20 21:12 09/17/20 06:26 POC Whole Blood Glucose 155 MG/DL (74-106) Test 09/17/20 11:42 09/17/20 14:10 09/17/20 16:01 09/17/20 20:22 POC Whole Blood Glucose 151 MG/DL (74-106) 133 MG/DL (74-106) Body Fluid Source Thoracentesis Body Fluid Volume 27 mL Body Fluid Appearance Slightly cloudy (Clear) Body Fluid RBC 21348 /CUMM Body Fluid Total Nucleated Cells 15 /CUMM Body Fluid Polynuclear WBCs (%) 56 % Body Fluid Mononuclear WBCs (%) 42 % Body Fluid Mesothelial Cells (%) 2 % Body Fluid Comment Test 09/18/20 05:46 POC Whole Blood Glucose 106 MG/DL (74-106) Height (Feet): 5 Height (Inches): 10.00 Weight (Pounds): 218 Objective ++Derick Hwang MD Sep 18, 2020 06:54
[2020-09-18] MEDS: Theophylline 80mg/15ml ORAL SCH ×2 (08:37→17:09)
[2020-09-18] MEDS: Heparin 5000 units/ml inj SUBQ SCH ×2 (08:44→20:42)
[2020-09-18 08:53] LABS: BASOPHILS % (AUTO) 0.8 % (0.0-2.0); EOSINOPHILS % (AUTO) 1.1 % (0.0-3.0); HEMATOCRIT 28.1 % (37.0-47.0); HEMOGLOBIN 8.7 G/DL (12.0-16.0); LYMPHOCYTES % (AUTO) 10.5 % (20.0-45.0); MEAN CORPUSCULAR VOLUME 97 FL (80-99); MONOCYTES % (AUTO) 9.1 % (1.0-10.0); NEUTROPHILS % (AUTO) 78.5 % (45.0-75.0); PLATELET COUNT 116 K/UL (150-450); RED BLOOD COUNT 2.89 M/UL (4.20-5.40); RED CELL DISTRIBUTION WIDTH 22.9 % (11.6-14.8); WHITE BLOOD COUNT 12.9 K/UL (4.8-10.8)
[2020-09-18 09:30] LABS: ALANINE AMINOTRANSFERASE 20 U/L (12-78); ALBUMIN 2.8 G/DL (3.4-5.0); ALBUMIN/GLOBULIN RATIO 0.7 (1.0-2.7); ALKALINE PHOSPHATASE 203 U/L (46-116); ANION GAP 11 mmol/L (5-15); ASPARTATE AMINO TRANSFERASE 30 U/L (15-37); BILIRUBIN,DIRECT 0.4 MG/DL (0.0-0.3); BILIRUBIN,TOTAL 0.9 MG/DL (0.2-1.0); BLOOD UREA NITROGEN 82 mg/dL (7-18); CALCIUM 7.7 MG/DL (8.5-10.1); CARBON DIOXIDE 24 MMOL/L (21-32); CHLORIDE 99 MMOL/L (98-107); CREATININE 5.9 MG/DL (0.55-1.30); PHOSPHORUS 3.5 MG/DL (2.5-4.9); POTASSIUM 4.8 MMOL/L (3.5-5.1); SODIUM 134 MMOL/L (136-145)
[2020-09-18] MEDS ORDERED: Milk of Magnesia 30ml Ud ORAL SCH (10:00)
--- NOTE | 2020-09-18 10:22 | Cardiac Electrophysiology PN ---
Assessment/Plan Assessment/Plan 1. Volume overload due to renal failure Echo showed EF of 50%. On HD after PermCath placement 09/05. 2. Left bundle-branch block. 3. Diastolic dysfunction. EF 50%. 4. Hyperkalemia. Got Kayexalate and on HD by Dr. Severino. 5. Diabetic nephropathy. 6. Renal failure. BUN/Cr 81/3.8 S/P PermCath and dialysis 7. Hypothyroidism. 8. Iron-deficiency anemia. 9. Right pleural effusion. S/P 800cc Right thoracentesis 09/03/20 10. Covid PCR negative x2 now but back to R/O Covid room. DW RN Subjective Subjective S/P Right chest PermCath and HD No CP in SR in NAD. Was in isolation as Rapid Covid was positive on 09/10 Back in isolation today for R/O Covid Objective Last 24 Hour Vital Signs Date Time Temp Pulse Resp B/P (MAP) Pulse Ox O2 Delivery O2 Flow Rate FiO2 09/18/20 08:00 98.9 77 20 97/52 (67) 97 09/18/20 08:00 80 09/18/20 04:00 98.8 80 18 100/48 (65) 98 09/18/20 03:35 80 09/18/20 01:22 97 Nasal Cannula 2.0 28 09/18/20 00:00 98.9 78 20 90/48 (62) 98 09/17/20 23:32 80 09/17/20 21:00 Nasal Cannula 2.0 09/17/20 20:10 78 18 98 Nasal Cannula 2.0 28 09/17/20 20:00 84 09/17/20 20:00 98.1 80 18 91/57 (68) 98 09/17/20 16:00 96.8 75 18 116/59 (78) 98 09/17/20 16:00 79 09/17/20 12:00 97.1 80 18 117/69 (85) 98 09/17/20 12:00 78 Intake and Output 09/17/20 09/18/20 19:00 07:00 Intake Total 850 ml 200 ml Balance 850 ml 200 ml Intake Oral 850 ml 200 ml # Bowel Movements 3 1 Laboratory Tests Test 09/17/20 11:42 09/17/20 14:10 09/17/20 16:01 09/17/20 20:22 POC Whole Blood Glucose 151 MG/DL (74-106) H Pending 133 MG/DL (74-106) H Body Fluid Source Thoracentesis Body Fluid Volume 27 mL Body Fluid Appearance Slightly cloudy (Clear) Body Fluid RBC 76949 /CUMM Body Fluid Total Nucleated Cells 15 /CUMM Body Fluid Polynuclear WBCs (%) 56 % Body Fluid Mononuclear WBCs (%) 42 % Body Fluid Mesothelial Cells (%) 2 % Body Fluid Albumin Pending Body Fluid Comment Test 09/18/20 05:46 09/18/20 07:50 POC Whole Blood Glucose 106 MG/DL (74-106) White Blood Count 12.9 K/UL (4.8-10.8) H Red Blood Count 2.89 M/UL (4.20-5.40) L Hemoglobin 8.7 G/DL (12.0-16.0) L Hematocrit 28.1 % (37.0-47.0) L Mean Corpuscular Volume 97 FL (80-99) Mean Corpuscular Hemoglobin 30.1 PG (27.0-31.0) Mean Corpuscular Hemoglobin Concent 30.9 G/DL (32.0-36.0) L Red Cell Distribution Width 22.9 % (11.6-14.8) H Platelet Count 116 K/UL (150-450) L Mean Platelet Volume 7.7 FL (6.5-10.1) Neutrophils (%) (Auto) 78.5 % (45.0-75.0) H Lymphocytes (%) (Auto) 10.5 % (20.0-45.0) L Monocytes (%) (Auto) 9.1 % (1.0-10.0) Eosinophils (%) (Auto) 1.1 % (0.0-3.0) Basophils (%) (Auto) 0.8 % (0.0-2.0) Sodium Level 134 MMOL/L (136-145) L Potassium Level 4.8 MMOL/L (3.5-5.1) Chloride Level 99 MMOL/L (98-107) Carbon Dioxide Level 24 MMOL/L (21-32) Anion Gap 11 mmol/L (5-15) Blood Urea Nitrogen 82 mg/dL (7-18) H Creatinine 5.9 MG/DL (0.55-1.30) H Estimat Glomerular Filtration Rate 7.1 mL/min (>60) Glucose Level 100 MG/DL (74-106) Uric Acid 3.9 MG/DL (2.6-7.2) Calcium Level 7.7 MG/DL (8.5-10.1) L Phosphorus Level 3.5 MG/DL (2.5-4.9) Magnesium Level 2.7 MG/DL (1.8-2.4) H Total Bilirubin 0.9 MG/DL (0.2-1.0) Direct Bilirubin 0.4 MG/DL (0.0-0.3) H Aspartate Amino Transf (AST/SGOT) 30 U/L (15-37) Alanine Aminotransferase (ALT/SGPT) 20 U/L (12-78) Alkaline Phosphatase 203 U/L (46-116) H C-Reactive Protein, Quantitative 9.6 mg/dL (0.00-0.90) H Pro-B-Type Natriuretic Peptide 34208 pg/mL (0-125) H Total Protein 6.7 G/DL (6.4-8.2) Albumin 2.8 G/DL (3.4-5.0) L Globulin 3.9 g/dL Albumin/Globulin Ratio 0.7 (1.0-2.7) L Objective HEAD AND NECK: No JVD. LUNGS: Coarse rhonchi, bibasilar rales.Right chest PermCath CARDIOVASCULAR: Regular S1 and S2 with no gallop. ABDOMEN: Soft. EXTREMITIES: Bilateral 2+ pitting edema and bandage on both legs Sina Paulson MD Sep 18, 2020 10:22
[2020-09-18] MEDS: Acetaminophen 500mg (ES) tab ORAL PRN (10:36)
--- NOTE | 2020-09-18 11:06 | Nephrology Progress Note ---
Assessment/Plan Problem List: (1) Renal failure (ARF), acute on chronic (2) Hyperkalemia (3) Hypothyroidism (4) Acute on chronic diastolic (congestive) heart failure (5) Diabetic nephropathy (6) Pneumonia Assessment: Leukocytosis, abnormal chest x-ray (7) Anemia Assessment 1) Renal failure (ARF), acute on chronic (2) Diabetes mellitus (3) Hypoglycemia (4) Hyperkalemia (5) Diabetic nephropathy (6) H/o Pleural effusion (7) Morbid obesity (8) Low Iron Anemia (9) HypoThyroidism Plan September 18: Last dialysis September 16. Next dialysis September 19 tomorrow. Status quo. Labs reviewed. Continue same management. September 17: Dialyzed yesterday. No labs drawn today. Due due for dialysis tomorrow. Continue per current management. September 16: Due for dialysis today. Labs reviewed. Continue per consultants. September 15: Patient was dialyzed yesterday. Status quo. Labs reviewed. Next hemodialysis tomorrow. September 14: Patient was dialyzed September 12. Due for dialysis today. Labs reviewed. Continue per consultants. September 13: Patient was dialyzed yesterday. Medication reviewed. Labs reviewed. White blood cells rising. Currently on dexamethasone IV for COVID-19 will dialyze again tomorrow September 12: Patient due for dialysis and ultrafiltration today. Labs reviewed. Medication list reviewed. Continue per consultants. September 11: Patient dialyzed yesterday. Labs reviewed. Patient is now COVID- 19 test positive. On isolation. Will dialyze again tomorrow. Continue per consultants. September 10: Patient due for dialysis and ultrafiltration today. Labs reviewed. And medication list reviewed. September 09: Patient was dialyzed yesterday. Due for dialysis and ultrafiltration tomorrow. Will start theophylline for although lumbar diet and also improvement of the heart rate. Recheck TSH in a.m. Continue as is. DC Chan catheter. September 08: Patient due for dialysis and ultrafiltration today. Labs reviewed. PhosLo given. Continue as is. September 07: Patient was dialyzed 2 days in a row. Ultra filtrated 3 L a day. Patient continues to be edematous however much less. Will dialyze again tomorr ow with ultrafiltration. Will monitor renal parameters. September 06: Patient was dialyzed yesterday. Ultrafiltration was done. Patient remains edematous. Will do another dialysis and aim 3 L fluid removal as tolerates. Discontinue IV Lasix and oral hydralazine. Will adjust blood pressure medication as needed. Discussed with RN, antibiotics intravenously if possible should be changed to oral since there is no IV line available. 1 dose of Venofer 200 mg ordered to be given during dialysis. Subcutaneous Epogen ordered for anemia. September 05: New 24-hour urine suggestive of creatinine clearance of 3. Patient due for insertion of dialysis catheter. Hemodialysis and ultrafiltration after insertion of catheter. September 04: New 24-hour urine test is in process. Discussed with RN. Patient was short of breath overnight. ABG ordered. 1 dose of Zaroxolyn ordered. Patient has fluid overload, and need ultrafiltration. Blood cultures negative. Leukocytosis resolved. Will order placement of permacath and dialysis and ultrafiltration. September 03: The 24-hour urine results appears to be an error in view of total volume compared to intake and output records. Today's labs reviewed. Serum creatinine higher. Talk to the nursing charge of the floor and will order another 24-hour urine collection. Meanwhile continue per ID treatment for UTI and leukocytosis. Dexamethasone on the medication list was questioned. Patient may require dialysis if continues to have worsening renal parameters. September 02: Consent for dialysis catheter is taken. Catheter placement deferred due to leukocytosis. Surveillance blood culture ordered. Urine culture ordered. Blood pressure medication adjusted. 24-hour urine for creatinine clearance and total protein pending. Previously: Chan Cath 24 H CrCl and total protein ordered Off IV fluids, on IV Lasix Adjust BP meds Previous 2D echocardiogram ejection fraction is reported to 50% Previous Kidney ultrasound noted. Current kidney ultrasound results below Anemia work-up As needed Kayexalate for high potassium Keep blood pressure and blood sugar in check Monitor renal parameters Requires HD treatment [facility] IMPRESSION: 1. Ascites. 2. Bilateral pleural effusions. 3. Complex right renal cysts of uncertain etiology. This complex cyst is unchanged from the study of 01/12/2020. 4. Mildly atrophic right kidney. 5. Magnetic resonance imaging of the abdomen with gadolinium administration is advised for further evaluation of complex right renal cyst. Subjective ROS Limited/Unobtainable: No Constitutional: Reports: malaise Objective Objective Last 24 Hour Vital Signs Date Time Temp Pulse Resp B/P (MAP) Pulse Ox O2 Delivery O2 Flow Rate FiO2 09/18/20 08:00 98.9 77 20 97/52 (67) 97 1126/20 08:00 80 09/18/20 04:00 98.8 80 18 100/48 (65) 98 09/18/20 03:35 80 09/18/20 01:22 97 Nasal Cannula 2.0 28 09/18/20 00:00 98.9 78 20 90/48 (62) 98 09/17/20 23:32 80 09/17/20 21:00 Nasal Cannula 2.0 09/17/20 20:10 78 18 98 Nasal Cannula 2.0 28 09/17/20 20:00 84 09/17/20 20:00 98.1 80 18 91/57 (68) 98 09/17/20 16:00 96.8 75 18 116/59 (78) 98 09/17/20 16:00 79 09/17/20 12:00 97.1 80 18 117/69 (85) 98 09/17/20 12:00 78 Intake and Output 09/17/20 09/18/20 19:00 07:00 Intake Total 850 ml 200 ml Balance 850 ml 200 ml Intake Oral 850 ml 200 ml # Bowel Movements 3 1 Current Medications Medications (Trade) Dose Ordered Sig/Braeden Route PRN Reason Start Time Stop Time Status Last Admin Dose Admin Acetaminophen (Tylenol) 500 mg Q4H PRN ORAL Mild Pain (Pain Scale 1-3) 09/18/20 08:30 10/18/20 08:29 09/18/20 10:36 Acetaminophen (Tylenol) 650 mg Q4H PRN ORAL FEVER 08/30/20 23:45 09/29/20 23:44 Calcium Acetate (Phoslo) 667 mg TIAC ORAL 09/08/20 11:30 12/07/20 11:29 09/18/20 10:36 Chlorhexidine Gluconate (Josiane-Hex 2%) 1 applic DAILY@1999 TOPIC 09/06/20 20:00 12/05/20 19:59 09/17/20 21:18 Dextrose (Dextrose 50%) 25 ml Q30M PRN IV Hypoglycemia 08/30/20 23:45 11/28/20 23:44 Dextrose (Dextrose 50%) 50 ml Q30M PRN IV Hypoglycemia 08/30/20 23:45 11/28/20 23:44 Epoetin Shlomo (Epoetin Shlomo(ESRD on dialysis)) 10,000 unit MON-TUE-TUE SUBQ 09/08/20 21:00 12/07/20 20:59 09/17/20 21:18 Folic Acid (Folate) 3 mg DAILY ORAL 09/02/20 09:00 10/02/20 08:59 09/18/20 08:37 Heparin Sodium (Porcine) (Heparin 5000 units/ml) 5,000 units EVERY 12 HOURS SUBQ 08/31/20 09:00 10/15/20 08:59 09/18/20 08:44 Insulin Aspart (NovoLOG) BEFORE MEALS AND HS SUBQ 08/31/20 06:30 11/29/20 06:29 09/17/20 17:05 Levothyroxine Sodium (Synthroid) 100 mcg DAILY@0630 ORAL 09/02/20 06:30 10/02/20 06:29 09/18/20 06:47 Metoclopramide HCl (Reglan) 5 mg THREE TIMES A DAY ORAL 08/31/20 13:00 09/30/20 12:59 09/18/20 08:37 Ondansetron HCl (Zofran) 4 mg Q6H PRN IVP Nausea & Vomiting 08/30/20 23:45 09/29/20 23:44 Pantoprazole (Protonix) 40 mg EVERY 12 HOURS ORAL 08/31/20 21:00 09/30/20 20:59 09/18/20 08:37 Polyethylene Glycol (Miralax) 17 gm DAILYPRN PRN ORAL Constipation 08/30/20 23:45 09/29/20 23:44 Promethazine HCl/ Codeine (Phenergan with Codeine) 5 ml Q6H PRN ORAL cough 08/30/20 23:45 09/29/20 23:44 Theophylline (Theophylline) 80 mg BID ORAL 09/13/20 18:00 12/08/20 13:59 09/18/20 08:37 Laboratory Tests 09/17/20 11:42: POC Whole Blood Glucose 151H 09/17/20 14:10: Body Fluid Source Thoracentesis, Body Fluid Volume 27, Body Fluid Appearance Slightly cloudy, Body Fl[place] [address], Body Fluid Total Nucleated Cells 15, Body Fluid Polynuclear WBCs (%) 56, Body Fluid Mononuclear WBCs (%) 42, Body Fluid Mesothelial Cells (%) 2, Body Fluid Albumin [Pending], Body Fluid Comment 09/17/20 16:01: POC Whole Blood Glucose [Pending] 09/17/20 20:22: POC Whole Blood Glucose 133H 09/18/20 05:46: POC Whole Blood Glucose 106 09/18/20 07:50: White Blood Count 12.9H, Red Blood Count 2.89L, Hemoglobin 8.7L, Hematocrit 28.1L, Mean Corpuscular Volume 97, Mean Corpuscular Hemoglobin 30.1, Mean Corpuscular Hemoglobin Concent 30.9L, Red Cell Distribution Width 22.9H, Platelet Count 116L, Mean Platelet Volume 7.7, Neutrophils (%) (Auto) 78.5H, Lymphocytes (%) (Auto) 10.5L, Monocytes (%) (Auto) 9.1, Eosinophils (%) (Auto) 1.1, Basophils (%) (Auto) 0.8, Sodium Level 134L, Potassium Level 4.8, Chloride Level 99, Carbon Dioxide Level 24, Anion Gap 11, Blood Urea Nitrogen 82H, Creatinine 5.9H, Estimat Glomerular Filtration Rate 7.1, Glucose Level 100, Uric Acid 3.9, Calcium Level 7.7L, Phosphorus Level 3.5, Magnesium Level 2.7H, Total Bilirubin 0.9, Direct Bilirubin 0.4H, Aspartate Amino Transf (AST/SGOT) 30, Alanine Aminotransferase (ALT/SGPT) 20, Alkaline Phosphatase 203H, C-Reactive Protein, Quantitative 9.6H, Pro-B-Type Natriuretic Peptide 28633T, Total Protein 6.7, Albumin 2.8L, Globulin 3.9, Albumin/Globulin Ratio 0.7L Height (Feet): 5 Height (Inches): 10.00 Weight (Pounds): 218 General Appearance: no apparent distress Cardiovascular: normal rate Respiratory/Chest: decreased breath sounds Abdomen: soft Jay Severino MD Sep 18, 2020 11:06
--- NOTE | 2020-09-18 11:26 | Surgery Progress Note ---
Surgery Progress Note Subjective Symptoms: improved, pain absent, tolerating diet, passing flatus, BM Objective Last 24 Hour Vital Signs Date Time Temp Pulse Resp B/P (MAP) Pulse Ox O2 Delivery O2 Flow Rate FiO2 09/18/20 11:06 98.9 09/18/20 09:00 Nasal Cannula 2.0 09/18/20 08:00 98.9 77 20 97/52 (67) 97 09/18/20 08:00 80 09/18/20 04:00 98.8 80 18 100/48 (65) 98 09/18/20 03:35 80 09/18/20 01:22 97 Nasal Cannula 2.0 28 09/18/20 00:00 98.9 78 20 90/48 (62) 98 09/17/20 23:32 80 09/17/20 21:00 Nasal Cannula 2.0 09/17/20 20:10 78 18 98 Nasal Cannula 2.0 28 09/17/20 20:00 84 09/17/20 20:00 98.1 80 18 91/57 (68) 98 09/17/20 16:00 96.8 75 18 116/59 (78) 98 09/17/20 16:00 79 09/17/20 12:00 97.1 80 18 117/69 (85) 98 09/17/20 12:00 78 I&O Intake and Output 09/17/20 09/18/20 19:00 07:00 Intake Total 850 ml 200 ml Balance 850 ml 200 ml Intake Oral 850 ml 200 ml # Bowel Movements 3 1 Cardiovascular: RSR Respiratory: clear Abdomen: soft, non-tender, present bowel sounds Extremities: edema, no tenderness, no cyanosis Laboratory Tests Test 09/17/20 11:42 09/17/20 14:10 09/17/20 16:01 09/17/20 20:22 POC Whole Blood Glucose 151 MG/DL (74-106) H Pending 133 MG/DL (74-106) H Body Fluid Source Thoracentesis Body Fluid Volume 27 mL Body Fluid Appearance Slightly cloudy (Clear) Body Fluid RBC 59957 /CUMM Body Fluid Total Nucleated Cells 15 /CUMM Body Fluid Polynuclear WBCs (%) 56 % Body Fluid Mononuclear WBCs (%) 42 % Body Fluid Mesothelial Cells (%) 2 % Body Fluid Albumin Pending Body Fluid Comment Test 09/18/20 05:46 09/18/20 07:50 POC Whole Blood Glucose 106 MG/DL (74-106) White Blood Count 12.9 K/UL (4.8-10.8) H Red Blood Count 2.89 M/UL (4.20-5.40) L Hemoglobin 8.7 G/DL (12.0-16.0) L Hematocrit 28.1 % (37.0-47.0) L Mean Corpuscular Volume 97 FL (80-99) Mean Corpuscular Hemoglobin 30.1 PG (27.0-31.0) Mean Corpuscular Hemoglobin Concent 30.9 G/DL (32.0-36.0) L Red Cell Distribution Width 22.9 % (11.6-14.8) H Platelet Count 116 K/UL (150-450) L Mean Platelet Volume 7.7 FL (6.5-10.1) Neutrophils (%) (Auto) 78.5 % (45.0-75.0) H Lymphocytes (%) (Auto) 10.5 % (20.0-45.0) L Monocytes (%) (Auto) 9.1 % (1.0-10.0) Eosinophils (%) (Auto) 1.1 % (0.0-3.0) Basophils (%) (Auto) 0.8 % (0.0-2.0) Sodium Level 134 MMOL/L (136-145) L Potassium Level 4.8 MMOL/L (3.5-5.1) Chloride Level 99 MMOL/L (98-107) Carbon Dioxide Level 24 MMOL/L (21-32) Anion Gap 11 mmol/L (5-15) Blood Urea Nitrogen 82 mg/dL (7-18) H Creatinine 5.9 MG/DL (0.55-1.30) H Estimat Glomerular Filtration Rate 7.1 mL/min (>60) Glucose Level 100 MG/DL (74-106) Uric Acid 3.9 MG/DL (2.6-7.2) Calcium Level 7.7 MG/DL (8.5-10.1) L Phosphorus Level 3.5 MG/DL (2.5-4.9) Magnesium Level 2.7 MG/DL (1.8-2.4) H Total Bilirubin 0.9 MG/DL (0.2-1.0) Direct Bilirubin 0.4 MG/DL (0.0-0.3) H Aspartate Amino Transf (AST/SGOT) 30 U/L (15-37) Alanine Aminotransferase (ALT/SGPT) 20 U/L (12-78) Alkaline Phosphatase 203 U/L (46-116) H C-Reactive Protein, Quantitative 9.6 mg/dL (0.00-0.90) H Pro-B-Type Natriuretic Peptide 96844 pg/mL (0-125) H Total Protein 6.7 G/DL (6.4-8.2) Albumin 2.8 G/DL (3.4-5.0) L Globulin 3.9 g/dL Albumin/Globulin Ratio 0.7 (1.0-2.7) L Plan Problems: (1) Acute on chronic diastolic (congestive) heart failure (2) Anemia (3) Acute respiratory failure Assessment & Plan: Large right pleural effusion persists, unchanged. Bilateral interstitial and airspace edema, cardiomegaly persists, probably unchanged allowing for differences in technique and inspiration (4) ACS (acute coronary syndrome) (5) History of hypertension (6) Moderate pulmonary arterial systolic hypertension (7) Left bundle branch block (LBBB) (8) Diabetes mellitus (9) Diabetic nephropathy (10) Renal failure (ARF), acute on chronic (11) Hyperkalemia (12) Bacteremia (13) CAD (coronary artery disease) (14) Hypothyroidism (15) Cardiac left ventricular ejection fraction greater than 40 percent (16) Grade I diastolic dysfunction (17) UTI (urinary tract infection) (18) Ulcers of both lower legs (19) Open wounds involving multiple regions of lower extremity Assessment & Plan: Patient identified admission having bilateral lower extremity edema open wounds as well as necrotic ulcerations. Patient states she has had this for some time now and acutely worsening as well. Bilateral lower leg wounds do to blisters from edema. Right medial lower leg wound 2.1x4.2x0.2 dark brown scab . Right anterior lower leg wound 5.6x5.3x0.2 pink wound bed. Right distal anterior lower leg 4.0x6.0x0.2 pink wound bed . Large amount serous drainage right leg wounds , Xeroform ,gauze,abd pad and kerlix applied change every shift. Left lower leg wound 3.7x5.0x0.3 100% green slough large amount serous drainage noted with small blisters ifeoma wound, Thera Honey, gauze,abd pad and kerlix applied, change every shift. Local wound care plan initiate Nutritional optimization Turn every 2 hours Elevate extremities Thank you will follow recommendations Right deep veins: Unremarkable. No DVT in the right common femoral, femoral, proximal deep femoral or popliteal veins. The veins demonstrate normal color flow, are normally compressible, with normal phasic flow and/or augmentation response. Right superficial veins: Unremarkable. No thrombus in the visualized right great saphenous vein. Left deep veins: Unremarkable. No DVT in the left common femoral, femoral, proximal deep femoral or popliteal veins. The veins demonstrate normal color flow, are normally compressible, with normal phasic flow and/or augmentation response. Left superficial veins: Unremarkable. No thrombus in the visualized left great saphenous vein. Soft tissues: No acute findings. No popliteal cyst. IMPRESSION: Normal bilateral lower extremity duplex venous ultrasound. DAILY ESTIMATED NEEDS: Needs based on ARF, now HD 65.7kg abw 25-30 kcals/kg 3100-4418 total kcals 1.25-1.8 g protein/kg 82-118 g total protein Fluid per MD, HD pending NUTRITION DIAGNOSIS: Increased pro needs r/t renal dysfunction as evidenced by pt w/ ARF, w/ now pending HD, K on adm (5.8), elev BUN (81), elev Creat (3.8), elev phos and mg. CURRENT DIET:Renal/ CCHO MED PO DIET RECOMMENDATIONS: Renal / CCHO LOW diet + high pro snacks in b/w meals ADDITIONAL RECOMMENDATIONS: 1) Maintain calibrated bed scale wts 2) High pro snacks in b/w meals 3) Rec WC eval-> add nephrovite 1 tab daily Vit C per nephro (20) Pneumonia (21) Gout (22) 2019 novel coronavirus disease (COVID-19) Assessment & Plan: +++ during hospitalization on tx isolation (23) COVID-19 Omar Tellez Sep 18, 2020 11:26
--- NOTE | 2020-09-18 11:48 | Pulmonology Progress Note ---
Subjective ROS Limited/Unobtainable: No Interval Events: no new events Allergies: Coded Allergies: No Known Allergies (Unverified , 10/10/19) All Systems: reviewed and negative except above Objective Last 24 Hour Vital Signs Date Time Temp Pulse Resp B/P (MAP) Pulse Ox O2 Delivery O2 Flow Rate FiO2 09/18/20 11:06 98.9 09/18/20 09:00 Nasal Cannula 2.0 09/18/20 08:00 98.9 77 20 97/52 (67) 97 09/18/20 08:00 80 09/18/20 04:00 98.8 80 18 100/48 (65) 98 09/18/20 03:35 80 09/18/20 01:22 97 Nasal Cannula 2.0 28 09/18/20 00:00 98.9 78 20 90/48 (62) 98 09/17/20 23:32 80 09/17/20 21:00 Nasal Cannula 2.0 09/17/20 20:10 78 18 98 Nasal Cannula 2.0 28 09/17/20 20:00 84 09/17/20 20:00 98.1 80 18 91/57 (68) 98 09/17/20 16:00 96.8 75 18 116/59 (78) 98 09/17/20 16:00 79 09/17/20 12:00 97.1 80 18 117/69 (85) 98 09/17/20 12:00 78 Intake and Output 09/17/20 09/18/20 19:00 07:00 Intake Total 850 ml 200 ml Balance 850 ml 200 ml Intake Oral 850 ml 200 ml # Bowel Movements 3 1 General Appearance: WD/WN HEENT: normocephalic, atraumatic Respiratory: chest wall non-tender, lungs clear, normal breath sounds Cardiovascular: normal peripheral pulses, normal rate Abdomen: normal bowel sounds, soft, non tender, no scars Extremities: no cyanosis Skin: no rash 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 Lymphatic: no neck adenopathy Laboratory Tests 09/17/20 14:10: Body Fluid Source Thoracentesis, Body Fluid Volume 27, Body Fluid Appearance Slightly cloudy, Body Fluid [place] 87982, Body Fluid Total Nucleated Cells 15, Body Fluid Polynuclear WBCs (%) 56, Body Fluid Mononuclear WBCs (%) 42, Body Fluid Mesothelial Cells (%) 2, Body Fluid Albumin [Pending], Body Fluid Comment 09/17/20 16:01: POC Whole Blood Glucose [Pending] 09/17/20 20:22: POC Whole Blood Glucose 133H 09/18/20 05:46: POC Whole Blood Glucose 106 09/18/20 07:50: White Blood Count 12.9H, Red Blood Count 2.89L, Hemoglobin 8.7L, Hematocrit 28.1 L, Mean Corpuscular Volume 97, Mean Corpuscular Hemoglobin 30.1, Mean Corpuscular Hemoglobin Concent 30.9L, Red Cell Distribution Width 22.9H, Platelet Count 116L, Mean Platelet Volume 7.7, Neutrophils (%) (Auto) 78.5H, Lymphocytes (%) (Auto) 10.5L, Monocytes (%) (Auto) 9.1, Eosinophils (%) (Auto) 1.1, Basophils (%) (Auto) 0.8, Sodium Level 134L, Potassium Level 4.8, Chloride Level 99, Carbon Dioxide Level 24, Anion Gap 11, Blood Urea Nitrogen 82H, Creatinine 5.9H, Estimat Glomerular Filtration Rate 7.1, Glucose Level 100, Uric Acid 3.9, Calcium Level 7.7L, Phosphorus Level 3.5, Magnesium Level 2.7H, Total Bilirubin 0.9, Direct Bilirubin 0.4H, Aspartate Amino Transf (AST/SGOT) 30, Alanine Aminotransferase (ALT/SGPT) 20, Alkaline Phosphatase 203H, C-Reactive Protein, Quantitative 9.6H, Pro-B-Type Natriuretic Peptide 03988N, Total Protein 6.7, Albumin 2.8L, Globulin 3.9, Albumin/Globulin Ratio 0.7L Current Medications Medications (Trade) Dose Ordered Sig/Braeden Route PRN Reason Start Time Stop Time Status Last Admin Dose Admin Acetaminophen (Tylenol) 500 mg Q4H PRN ORAL Mild Pain (Pain Scale 1-3) 09/18/20 08:30 10/18/20 08:29 09/18/20 10:36 Acetaminophen (Tylenol) 650 mg Q4H PRN ORAL FEVER 08/30/20 23:45 09/29/20 23:44 Calcium Acetate (Phoslo) 667 mg TIAC ORAL 09/08/20 11:30 12/07/20 11:29 09/18/20 10:36 Chlorhexidine Gluconate (Josiane-Hex 2%) 1 applic DAILY@2000 TOPIC 09/06/20 20:00 12/05/20 19:59 09/17/20 21:18 Dextrose (Dextrose 50%) 25 ml Q30M PRN IV Hypoglycemia 08/30/20 23:45 11/28/20 23:44 Dextrose (Dextrose 50%) 50 ml Q30M PRN IV Hypoglycemia 08/30/20 23:45 11/28/20 23:44 Epoetin Shlomo (Epoetin Shlomo(ESRD on dialysis)) 10,000 unit TUE-TUE-TUE SUBQ 09/08/20 21:00 12/07/20 20:59 09/17/20 21:18 Folic Acid (Folate) 3 mg DAILY ORAL 09/02/20 09:00 10/02/20 08:59 09/18/20 08:37 Heparin Sodium (Porcine) (Heparin 5000 units/ml) 5,000 units EVERY 12 HOURS SUBQ 08/31/20 09:00 10/15/20 08:59 09/18/20 08:44 Insulin Aspart (NovoLOG) BEFORE MEALS AND HS SUBQ 08/31/20 06:30 11/29/20 06:29 09/17/20 17:05 Levothyroxine Sodium (Synthroid) 100 mcg DAILY@0630 ORAL 09/02/20 06:30 10/02/20 06:29 09/18/20 06:47 Metoclopramide HCl (Reglan) 5 mg THREE TIMES A DAY ORAL 08/31/20 13:00 09/30/20 12:59 09/18/20 08:37 Ondansetron HCl (Zofran) 4 mg Q6H PRN IVP Nausea & Vomiting 08/30/20 23:45 09/29/20 23:44 Pantoprazole (Protonix) 40 mg EVERY 12 HOURS ORAL 08/31/20 21:00 09/30/20 20:59 09/18/20 08:37 Polyethylene Glycol (Miralax) 17 gm DAILYPRN PRN ORAL Constipation 08/30/20 23:45 09/29/20 23:44 Promethazine HCl/ Codeine (Phenergan with Codeine) 5 ml Q6H PRN ORAL cough 08/30/20 23:45 09/29/20 23:44 Theophylline (Theophylline) 80 mg BID ORAL 09/13/20 18:00 12/08/20 13:59 09/18/20 08:37 Assessment/Plan Problems: (1) 2019 novel coronavirus disease (COVID-19) (2) Acute on chronic diastolic (congestive) heart failure (3) Gout (4) Renal failure (ARF), acute on chronic (5) Diabetes mellitus (6) Left bundle branch block (LBBB) (7) Cardiac left ventricular ejection fraction greater than 40 percent (8) Grade I diastolic dysfunction (9) History of hypertension Assessment/Plan US of chest for thoracentesis, because of persistent leukocytosis, 450 cc removed on09/17. doing better COVID positive, repeat again today sitting up in the chair f/u ID recommendations f/u inflammatory markers. O2 titrate to keep sat > 92%, currently down to O2 via NC DVT prophylaxis\ dc planning, awaiting COVID testing for dc planning Tiana Cool MD Sep 18, 2020 11:48
--- NOTE | 2020-09-18 12:39 | General Progress Note ---
Subjective Allergies: Coded Allergies: No Known Allergies (Unverified , 10/10/19) All Systems: reviewed and negative except above Subjective events noted - interval notes reviewed glucose values are stable Item Value Date Time Bedside Blood Glucose 116 mg/dl 09/18/20 1130 Bedside Blood Glucose 106 mg/dl 09/18/20 0630 Bedside Blood Glucose 133 mg/dl H 09/17/20 2100 Bedside Blood Glucose 151 mg/dl H 09/17/20 1705 Bedside Blood Glucose 151 mg/dl H 09/17/20 1233 Objective Last 24 Hour Vital Signs Date Time Temp Pulse Resp B/P (MAP) Pulse Ox O2 Delivery O2 Flow Rate FiO2 09/18/20 12:00 98.6 71 18 100/50 (67) 96 09/18/20 11:06 98.9 09/18/20 09:00 Nasal Cannula 2.0 09/18/20 08:26 96 Nasal Cannula 2.0 28 09/18/20 08:17 75 20 97 Nasal Cannula 2.0 28 09/18/20 08:00 98.9 77 20 97/52 (67) 97 09/18/20 08:00 80 09/18/20 04:00 98.8 80 18 100/48 (65) 98 09/18/20 03:35 80 09/18/20 01:22 97 Nasal Cannula 2.0 28 09/18/20 00:00 98.9 78 20 90/48 (62) 98 09/17/20 23:32 80 09/17/20 21:00 Nasal Cannula 2.0 09/17/20 20:10 78 18 98 Nasal Cannula 2.0 28 09/17/20 20:00 84 09/17/20 20:00 98.1 80 18 91/57 (68) 98 09/17/20 16:00 96.8 75 18 116/59 (78) 98 09/17/20 16:00 79 Intake and Output 09/17/20 09/18/20 19:00 07:00 Intake Total 850 ml 200 ml Balance 850 ml 200 ml Intake Oral 850 ml 200 ml # Bowel Movements 3 1 Laboratory Tests 09/17/20 14:10: Body Fluid Source Thoracentesis, Body Fluid Volume 27, Body Fluid Appearance Slightly cloudy, [place] [address], Body Fluid Total Nucleated Cells 15, Body Fluid Polynuclear WBCs (%) 56, Body Fluid Mononuclear WBCs (%) 42, Body Fluid Mesothelial Cells (%) 2, Body Fluid Albumin [Pending], Body Fluid Comment 09/17/20 16:01: POC Whole Blood Glucose [Pending] 09/17/20 20:22: POC Whole Blood Glucose 133H 09/18/20 05:46: POC Whole Blood Glucose 106 09/18/20 07:50: White Blood Count 12.9H, Red Blood Count 2.89L, Hemoglobin 8.7L, Hematocrit 28.1L, Mean Corpuscular Volume 97, Mean Corpuscular Hemoglobin 30.1, Mean Corpuscular Hemoglobin Concent 30.9L, Red Cell Distribution Width 22.9H, Luisa telet Count 116L, Mean Platelet Volume 7.7, Neutrophils (%) (Auto) 78.5H, Lymphocytes (%) (Auto) 10.5L, Monocytes (%) (Auto) 9.1, Eosinophils (%) (Auto) 1.1, Basophils (%) (Auto) 0.8, Sodium Level 134L, Potassium Level 4.8, Chloride Level 99, Carbon Dioxide Level 24, Anion Gap 11, Blood Urea Nitrogen 82H, Creatinine 5.9H, Estimat Glomerular Filtration Rate 7.1, Glucose Level 100, Uric Acid 3.9, Calcium Level 7.7L, Phosphorus Level 3.5, Magnesium Level 2.7H, Total Bilirubin 0.9, Direct Bilirubin 0.4H, Aspartate Amino Transf (AST/SGOT) 30, Alanine Aminotransferase (ALT/SGPT) 20, Alkaline Phosphatase 203H, C-Reactive Protein, Quantitative 9.6H, Pro-B-Type Natriuretic Peptide 03123K, Total Protein 6.7, Albumin 2.8L, Globulin 3.9, Albumin/Globulin Ratio 0.7L 09/18/20 11:51: POC Whole Blood Glucose 116H Height (Feet): 5 Height (Inches): 10.00 Weight (Pounds): 218 General Appearance: no apparent distress Neck: normal alignment Cardiovascular: normal rate Respiratory/Chest: lungs clear Abdomen: normal bowel sounds Pelvis: normal external exam Objective Current Medications Medications (Trade) Dose Ordered Sig/Braeden Route PRN Reason Start Time Stop Time Status Last Admin Dose Admin Acetaminophen (Tylenol) 500 mg Q4H PRN ORAL Mild Pain (Pain Scale 1-3) 09/18/20 08:30 10/18/20 08:29 09/18/20 10:36 Acetaminophen (Tylenol) 650 mg Q4H PRN ORAL FEVER 08/30/20 23:45 09/29/20 23:44 Calcium Acetate (Phoslo) 667 mg TIAC ORAL 09/08/20 11:30 12/07/20 11:29 09/18/20 10:36 Chlorhexidine Gluconate (Josiane-Hex 2%) 1 applic DAILY@2000 TOPIC 09/06/20 20:00 12/05/20 19:59 09/17/20 21:18 Dextrose (Dextrose 50%) 25 ml Q30M PRN IV Hypoglycemia 08/30/20 23:45 11/28/20 23:44 Dextrose (Dextrose 50%) 50 ml Q30M PRN IV Hypoglycemia 08/30/20 23:45 11/28/20 23:44 Epoetin Shlomo (Epoetin Shlomo(ESRD on dialysis)) 10,000 unit TUE-TUE-TUE SUBQ 09/08/20 21:00 12/07/20 20:59 09/17/20 21:18 Folic Acid (Folate) 3 mg DAILY ORAL 09/02/20 09:00 10/02/20 08:59 09/18/20 08:37 Heparin Sodium (Porcine) (Heparin 5000 units/ml) 5,000 units EVERY 12 HOURS SUBQ 08/31/20 09:00 10/15/20 08:59 09/18/20 08:44 Insulin Aspart (NovoLOG) BEFORE MEALS AND HS SUBQ 08/31/20 06:30 11/29/20 06:29 09/17/20 17:05 Levothyroxine Sodium (Synthroid) 100 mcg DAILY@0630 ORAL 09/02/20 06:30 10/02/20 06:29 09/18/20 06:47 Metoclopramide HCl (Reglan) 5 mg THREE TIMES A DAY ORAL 08/31/20 13:00 09/30/20 12:59 09/18/20 08:37 Ondansetron HCl (Zofran) 4 mg Q6H PRN IVP Nausea & Vomiting 08/30/20 23:45 09/29/20 23:44 Pantoprazole (Protonix) 40 mg EVERY 12 HOURS ORAL 08/31/20 21:00 09/30/20 20:59 09/18/20 08:37 Polyethylene Glycol (Miralax) 17 gm DAILYPRN PRN ORAL Constipation 08/30/20 23:45 09/29/20 23:44 Promethazine HCl/ Codeine (Phenergan with Codeine) 5 ml Q6H PRN ORAL cough 08/30/20 23:45 09/29/20 23:44 Theophylline (Theophylline) 80 mg BID ORAL 09/13/20 18:00 12/08/20 13:59 09/18/20 08:37 Assessment/Plan Problem List: (1) Renal failure (ARF), acute on chronic ICD Codes: N17.9 - Acute kidney failure, unspecified; N18.9 - Chronic kidney disease, unspecified SNOMED: 891506647 (2) CAD (coronary artery disease) ICD Codes: I25.10 - Atherosclerotic heart disease of [place] coronary artery without angina pectoris SNOMED: 58378579 (3) Diabetes mellitus ICD Codes: E11.9 - Type 2 diabetes mellitus without complications SNOMED: 05779960 (4) Left bundle branch block (LBBB) ICD Codes: I44.7 - Left bundle-branch block, unspecified SNOMED: 27689913 (5) Hypothyroidism ICD Codes: E03.9 - Hypothyroidism, unspecified SNOMED: 89950525 Status: progressing, unchanged Assessment/Plan: continue Novolog sliding scale ac / hs continue LT4 100 mcg daily repeat thyroid function in 2-3 weeks Jake Alexander MD Sep 18, 2020 12:39
[2020-09-18] MEDS: Dyna-Hex 2% Top Sol 2oz TOPIC SCH (20:40)
--- NOTE | 2020-09-18 21:40 | General Progress Note ---
Subjective ROS Limited/Unobtainable: Yes Allergies: Coded Allergies: No Known Allergies (Unverified , 10/10/19) Objective Last 24 Hour Vital Signs Date Time Temp Pulse Resp B/P (MAP) Pulse Ox O2 Delivery O2 Flow Rate FiO2 09/18/20 16:00 98.0 74 20 101/48 (65) 97 09/18/20 16:00 76 09/18/20 12:00 75 09/18/20 12:00 98.6 71 18 100/50 (67) 96 09/18/20 11:06 98.9 09/18/20 09:00 Nasal Cannula 2.0 09/18/20 08:26 96 Nasal Cannula 2.0 28 09/18/20 08:17 75 20 97 Nasal Cannula 2.0 28 09/18/20 08:00 98.9 77 20 97/52 (67) 97 09/18/20 08:00 80 09/18/20 04:00 98.8 80 18 100/48 (65) 98 09/18/20 03:35 80 09/18/20 01:22 97 Nasal Cannula 2.0 28 09/18/20 00:00 98.9 78 20 90/48 (62) 98 09/17/20 23:32 80 Intake and Output 09/17/20 09/18/20 19:00 07:00 Intake Total 850 ml 200 ml Balance 850 ml 200 ml Intake Oral 850 ml 200 ml # Bowel Movements 3 1 Laboratory Tests 09/18/20 05:46: POC Whole Blood Glucose 106 09/18/20 07:50: White Blood Count 12.9H, Red Blood Count 2.89L, Hemoglobin 8.7L, Hematocrit 28.1L, Mean Corpuscular Volume 97, Mean Corpuscular Hemoglobin 30.1, Mean Corpuscular Hemoglobin Concent 30.9L, Red Cell Distribution Width 22.9H, Platelet Count 116L, Mean Platelet Volume 7.7, Neutrophils (%) (Auto) 78.5H, Lymphocytes (%) (Auto) 10.5L, Monocytes (%) (Auto) 9.1, Eosinophils (%) (Auto) 1.1, Basophils (%) (Auto) 0.8, Sodium Level 134L, Potassium Level 4.8, Chloride Level 99, Carbon Dioxide Level 24, Anion Gap 11, Blood Urea Nitrogen 82H, Creatinine 5.9H, Estimat Glomerular Filtration Rate 7.1, Glucose Level 100, Uric Acid 3.9, Calcium Level 7.7L, Phosphorus Level 3.5, Magnesium Level 2.7H, Total Bilirubin 0.9, Direct Bilirubin 0.4H, Aspartate Amino Transf (AST/SGOT) 30, Alanine Aminotransferase (ALT/SGPT) 20, Alkaline Phosphatase 203H, C-Reactive Protein, Quantitative 9.6H, Pro-B-Type Natriuretic Peptide 57534W, Total Protein 6.7, Albumin 2.8L, Globulin 3.9, Albumin/Globulin Ratio 0.7L 09/18/20 11:51: POC Whole Blood Glucose 116H 09/18/20 17:12: POC Whole Blood Glucose 148H 09/18/20 20:23: POC Whole Blood Glucose 161H Height (Feet): 5 Height (Inches): 10.00 Weight (Pounds): 218 Assessment/Plan Problem List: (1) Anemia ICD Codes: D64.9 - Anemia, unspecified SNOMED: 909588972 (2) Ulcers of both lower legs ICD Codes: L97.919 - Non-pressure chronic ulcer of unspecified part of right lower leg with unspecified severity; L97.929 - Non-pressure chronic ulcer of unspecified part of left lower leg with unspecified severity SNOMED: 96138836, 813272217 (3) Open wounds involving multiple regions of lower extremity ICD Codes: S81.809A - Unspecified open wound, unspecified lower leg, initial encounter SNOMED: 364521150 (4) Pneumonia ICD Codes: J18.9 - Pneumonia, unspecified organism SNOMED: 083519584 (5) History of hypertension ICD Codes: Z86.79 - Personal history of other diseases of the circulatory system SNOMED: 206395151 (6) Diabetes mellitus ICD Codes: E11.9 - Type 2 diabetes mellitus without complications SNOMED: 67536764 (7) Renal failure (ARF), acute on chronic ICD Codes: N17.9 - Acute kidney failure, unspecified; N18.9 - Chronic kidney disease, unspecified SNOMED: 160514218 (8) Hyperkalemia ICD Codes: E87.5 - Hyperkalemia SNOMED: 51132237 (9) CAD (coronary artery disease) ICD Codes: I25.10 - Atherosclerotic heart disease of [place] coronary artery without angina pectoris SNOMED: 79521614 (10) Hypothyroidism ICD Codes: E03.9 - Hypothyroidism, unspecified SNOMED: 19878317 (11) Cardiac left ventricular ejection fraction greater than 40 percent ICD Codes: R94.30 - Abnormal result of cardiovascular function study, unspecified SNOMED: 195035618 (12) Grade I diastolic dysfunction ICD Codes: I51.9 - Heart disease, unspecified SNOMED: 0984395 Status: progressing, unchanged Assessment/Plan: pleural effusion s/p thoracocentesis afebrile vitals stable check Tj Muller MD Sep 18, 2020 21:40
[2020-09-19] VITALS: BP 103/63
[2020-09-19 04:00] VITALS: BP 136/69
[2020-09-19 05:29] LABS: BASOPHILS % (AUTO) 0.8 % (0.0-2.0); EOSINOPHILS % (AUTO) 1.4 % (0.0-3.0); HEMOGLOBIN 8.7 G/DL (12.0-16.0); LYMPHOCYTES % (AUTO) 8.3 % (20.0-45.0); MEAN CORPUSCULAR VOLUME 94 FL (80-99); MONOCYTES % (AUTO) 10.1 % (1.0-10.0); NEUTROPHILS % (AUTO) 79.3 % (45.0-75.0); PLATELET COUNT 123 K/UL (150-450); RED BLOOD COUNT 2.87 M/UL (4.20-5.40); RED CELL DISTRIBUTION WIDTH 23.2 % (11.6-14.8); WHITE BLOOD COUNT 12.7 K/UL (4.8-10.8)
[2020-09-19] MEDS: NovoLOG Insulin Flexpen SUBQ SCH ×4 (05:59→21:00)
--- NOTE | 2020-09-19 07:03 | Hematology/Onc Progress Note ---
Assessment/Plan Assessment/Plan Assessment and Recs: # Anemia of chronic disease due to underlying chronic medical issues, multifactorial v Gi bleed --> Anemia workup has been ordered, rule out gi bleed --> No evidence of hemolysis is noted, peripheral smear has been reviewed. --> Hgb goal >7. Transfuse prn. --> EPOGEN AND IV IRON STARTED, CONTINUE --> Medications have been reviewed --> hgb 7.7-->8-->8.4-->8->8->8.7->8.8-->9.3-->8.7 --> egd w/ colo 01/15/20 Gastritis, status post biopsy. Total of 11 polyps removed, Internal hemorrhoids. # Thromocytopenia likely related to infection v reactive process, DOES HAVE CIRRHOSIS --> hep and hiv are neg --> imaging abd has been reviewed. noted liver disease, cirrhosis --> peripheral smear noted --> plt 75-->108-->120-->111-->132 # Coagulation defect, multifactorial usually related to poor PO intake versus medications, versus hepatitis v cirrhosis --> administer Vitamin K if patient is bleeding or FFP if the INR is >10 --> hold off on ffp unless active procedure/bleeding, first begin with vit K 10 --> mixing study as needed # Renal failure (ARF), acute on chronic --> ivf as per renal --> renal us reviewed --> improved --> HD as per renal # Hypoglycemia -> endo eval prn # Pleural effusion --> diuresis as needed --> monitor ivf --> HD # Hyperkalemia # Obesity # Dvt ppx heparin sq The timing of this note does not necessarily reflect the time of the patient was seen. Greatly appreciate consultation. Subjective Constitutional: Denies: no symptoms, chills, fever, malaise, weakness, other HEENT: Denies: no symptoms, eye pain, blurred vision, tearing, double vision, ear pain, ear discharge, nose pain, nose congestion, throat pain, throat swelling, mouth pain, mouth swelling, other Respiratory: Denies: no symptoms, cough, shortness of breath, SOB with excertion, SOB at rest, sputum, wheezing, other Gastrointestinal/Abdominal: Denies: no symptoms, abdomen distended, abdominal pain, black stools, tarry stools, blood in stool, constipated, diarrhea, diffi culty swallowing, nausea, poor appetite, poor fluid intake, rectal bleeding, vomiting, other Genitourinary: Denies: no symptoms, burning, discharge, frequency, flank pain, hematuria, incontinence, pain, urgency, other Neurologic/Psychiatric: Denies: no symptoms, anxiety, depressed, emotional problems, headache, numbness, paresthesia, pre-existing deficit, seizure, tingling, tremors, weakness, other Endocrine: Denies: no symptoms, excessive sweating, flushing, intolerance to cold, intolerance to heat, increased hunger, increased thirst, increased urine, unexplained weight gain, unexplained weight loss, other Hematologic/Lymphatic: Denies: no symptoms, anemia, easy bleeding, easy bruising, adenopathy, other Allergies: Coded Allergies: No Known Allergies (Unverified , 10/10/19) Subjective 09/08 labs reviewed, hd as per renal, fluid overload improved, labs noted, with dropping plt 09/09 pending plt count this am, on abx, broad spectrum, no other events 09/10 labs pending, is comfortable, is on 3l nc, no bleeding 09/11 on 5L weaning, no night sweats, meds reviewed 09/12 labs noted, no bleeding, plts improved, meds reviewed 09/14 labs reviewed, meds noted, on hd as per renal permacath in place 09/15 labs are pending, on iso for covid19, no bleeding 09/16 labs reviewed, hgb 8.8, plt 111, no night sweats, meds noted, talkative 09/17 awake, alert, most recent plt better, no night sweats, meds noted 09/18 meds reviewed, no bleeding, meds noted, labs ordered for am 09/19 meds noted, labs reviewed, no major bleeding, dw rn Objective Objective Current Medications Medications (Trade) Dose Ordered Sig/Braeden Route PRN Reason Start Time Stop Time Status Last Admin Dose Admin Acetaminophen (Tylenol) 500 mg Q4H PRN ORAL Mild Pain (Pain Scale 1-3) 09/18/20 08:30 10/18/20 08:29 09/18/20 10:36 Acetaminophen (Tylenol) 650 mg Q4H PRN ORAL FEVER 08/30/20 23:45 09/29/20 23:44 Calcium Acetate (Phoslo) 667 mg TIAC ORAL 09/08/20 11:30 12/07/20 11:29 09/19/20 06:01 Chlorhexidine Gluconate (Josiane-Hex 2%) 1 applic DAILY@2000 TOPIC 09/06/20 20:00 12/05/20 19:59 09/18/20 20:40 Dextrose (Dextrose 50%) 25 ml Q30M PRN IV Hypoglycemia 08/30/20 23:45 11/28/20 23:44 Dextrose (Dextrose 50%) 50 ml Q30M PRN IV Hypoglycemia 08/30/20 23:45 11/28/20 23:44 Epoetin Shlomo (Epoetin Shlomo(ESRD on dialysis)) 10,000 unit TUE- SUBQ 09/08/20 21:00 12/07/20 20:59 09/17/20 21:18 Folic Acid (Folate) 3 mg DAILY ORAL 09/02/20 09:00 10/02/20 08:59 09/18/20 08:37 Heparin Sodium (Porcine) (Heparin 5000 units/ml) 5,000 units EVERY 12 HOURS SUBQ 08/31/20 09:00 10/15/20 08:59 09/18/20 20:42 Insulin Aspart (NovoLOG) BEFORE MEALS AND HS SUBQ 08/31/20 06:30 11/29/20 06:29 09/18/20 20:47 Levothyroxine Sodium (Synthroid) 100 mcg DAILY@0630 ORAL 09/02/20 06:30 10/02/20 06:29 09/19/20 06:01 Metoclopramide HCl (Reglan) 5 mg THREE TIMES A DAY ORAL 08/31/20 13:00 09/30/20 12:59 09/18/20 17:09 Ondansetron HCl (Zofran) 4 mg Q6H PRN IVP Nausea & Vomiting 08/30/20 23:45 09/29/20 23:44 Pantoprazole (Protonix) 40 mg EVERY 12 HOURS ORAL 08/31/20 21:00 09/30/20 20:59 09/18/20 20:40 Polyethylene Glycol (Miralax) 17 gm DAILYPRN PRN ORAL Constipation 08/30/20 23:45 09/29/20 23:44 Promethazine HCl/ Codeine (Phenergan with Codeine) 5 ml Q6H PRN ORAL cough 08/30/20 23:45 09/29/20 23:44 Theophylline (Theophylline) 80 mg BID ORAL 09/13/20 18:00 12/08/20 13:59 09/18/20 17:09 Last 24 Hour Vital Signs Date Time Temp Pulse Resp B/P (MAP) Pulse Ox O2 Delivery O2 Flow Rate FiO2 09/19/20 04:00 73 09/19/20 04:00 97.3 76 20 136/69 (91) 98 09/19/20 00:00 98.1 77 20 103/63 (76) 99 09/19/20 00:00 75 09/18/20 21:00 Nasal Cannula 2.0 09/18/20 20:00 79 09/18/20 20:00 97.3 81 22 124/78 (93) 95 09/18/20 16:00 98.0 74 20 101/48 (65) 97 09/18/20 16:00 76 09/18/20 12:00 75 09/18/20 12:00 98.6 71 18 100/50 (67) 96 09/18/20 11:06 98.9 09/18/20 09:00 Nasal Cannula 2.0 09/18/20 08:26 96 Nasal Cannula 2.0 28 09/18/20 08:17 75 20 97 Nasal Cannula 2.0 28 09/18/20 08:00 98.9 77 20 97/52 (67) 97 09/18/20 08:00 80 09/18/20 04:00 98.8 80 18 100/48 (65) 98 09/18/20 03:35 80 09/18/20 01:22 97 Nasal Cannula 2.0 28 09/18/20 00:00 98.9 78 20 90/48 (62) 98 09/17/20 23:32 80 09/17/20 21:00 Nasal Cannula 2.0 09/17/20 20:10 78 18 98 Nasal Cannula 2.0 28 09/17/20 20:00 84 09/17/20 20:00 98.1 80 18 91/57 (68) 98 09/17/20 16:00 96.8 75 18 116/59 (78) 98 09/17/20 16:00 79 09/17/20 12:00 97.1 80 18 117/69 (85) 98 09/17/20 12:00 78 09/17/20 09:00 Nasal Cannula 2.0 09/17/20 08:00 97.5 75 18 102/51 (68) 96 09/17/20 08:00 81 Intake and Output 09/18/20 09/19/20 19:00 07:00 Intake Total 360 ml Balance 360 ml Intake Oral 360 ml # Voids 1 # Bowel Movements 2 3 Labs Test 09/16/20 07:05 09/16/20 08:31 09/16/20 11:53 09/16/20 13:10 POC Whole Blood Glucose 132 MG/DL (74-106) 129 MG/DL (74-106) Arterial Blood pH 7.393 (7.350-7.450) Arterial Blood Partial Pressure CO2 39.5 mmHg (35.0-45.0) Arterial Blood Partial Pressure O2 79.9 mmHg (75.0-100.0) Arterial Blood HCO3 23.5 mmol/L (22.0-26.0) Arterial Blood Oxygen Saturation 95.9 % (95-100) Arterial Blood Base Excess -1.2 (-2-2) Geoffrey Test Positive Prothrombin Time 12.8 SEC (9.30-11.50) Prothromb Time International Ratio 1.2 (0.9-1.1) Activated Partial Thromboplast Time 27 SEC (23-33) Test 09/16/20 14:10 09/16/20 16:41 09/16/20 21:12 09/17/20 06:26 Body Fluid Glucose 130 mg/dL (.) Body Fluid Total Protein 1.9 g/dL (.) POC Whole Blood Glucose 155 MG/DL (74-106) Test 09/17/20 11:42 09/17/20 14:10 09/17/20 16:01 09/17/20 20:22 POC Whole Blood Glucose 151 MG/DL (74-106) 133 MG/DL (74-106) Body Fluid Source Thoracentesis Body Fluid Volume 27 mL Body Fluid Appearance Slightly cloudy (Clear) Body Fluid RBC 53573 /CUMM Body Fluid Total Nucleated Cells 15 /CUMM Body Fluid Polynuclear WBCs (%) 56 % Body Fluid Mononuclear WBCs (%) 42 % Body Fluid Mesothelial Cells (%) 2 % Body Fluid Comment Test 09/18/20 05:46 09/18/20 07:50 09/18/20 11:51 09/18/20 17:12 POC Whole Blood Glucose 106 MG/DL (74-106) 116 MG/DL (74-106) 148 MG/DL (74-106) White Blood Count 12.9 K/UL (4.8-10.8) Red Blood Count 2.89 M/UL (4.20-5.40) Hemoglobin 8.7 G/DL (12.0-16.0) Hematocrit 28.1 % (37.0-47.0) Mean Corpuscular Volume 97 FL (80-99) Mean Corpuscular Hemoglobin 30.1 PG (27.0-31.0) Mean Corpuscular Hemoglobin Concent 30.9 G/DL (32.0-36.0) Red Cell Distribution Width 22.9 % (11.6-14.8) Platelet Count 116 K/UL (150-450) Mean Platelet Volume 7.7 FL (6.5-10.1) Neutrophils (%) (Auto) 78.5 % (45.0-75.0) Lymphocytes (%) (Auto) 10.5 % (20.0-45.0) Monocytes (%) (Auto) 9.1 % (1.0-10.0) Eosinophils (%) (Auto) 1.1 % (0.0-3.0) Basophils (%) (Auto) 0.8 % (0.0-2.0) Sodium Level 134 MMOL/L (136-145) Potassium Level 4.8 MMOL/L (3.5-5.1) Chloride Level 99 MMOL/L (98-107) Carbon Dioxide Level 24 MMOL/L (21-32) Anion Gap 11 mmol/L (5-15) Blood Urea Nitrogen 82 mg/dL (7-18) Creatinine 5.9 MG/DL (0.55-1.30) Estimat Glomerular Filtration Rate 7.1 mL/min (>60) Glucose Level 100 MG/DL (74-106) Uric Acid 3.9 MG/DL (2.6-7.2) Calcium Level 7.7 MG/DL (8.5-10.1) Phosphorus Level 3.5 MG/DL (2.5-4.9) Magnesium Level 2.7 MG/DL (1.8-2.4) Total Bilirubin 0.9 MG/DL (0.2-1.0) Direct Bilirubin 0.4 MG/DL (0.0-0.3) Aspartate Amino Transf (AST/SGOT) 30 U/L (15-37) Alanine Aminotransferase (ALT/SGPT) 20 U/L (12-78) Alkaline Phosphatase 203 U/L (46-116) C-Reactive Protein, Quantitative 9.6 mg/dL (0.00-0.90) Pro-B-Type Natriuretic Peptide 78366 pg/mL (0-125) Total Protein 6.7 G/DL (6.4-8.2) Albumin 2.8 G/DL (3.4-5.0) Globulin 3.9 g/dL Albumin/Globulin Ratio 0.7 (1.0-2.7) Test 09/18/20 20:23 09/19/20 04:00 09/19/20 05:53 POC Whole Blood Glucose 161 MG/DL (74-106) 109 MG/DL (74-106) White Blood Count 12.7 K/UL (4.8-10.8) Red Blood Count 2.87 M/UL (4.20-5.40) Hemoglobin 8.7 G/DL (12.0-16.0) Hematocrit 27.0 % (37.0-47.0) Mean Corpuscular Volume 94 FL (80-99) Mean Corpuscular Hemoglobin 30.4 PG (27.0-31.0) Mean Corpuscular Hemoglobin Concent 32.3 G/DL (32.0-36.0) Red Cell Distribution Width 23.2 % (11.6-14.8) Platelet Count 123 K/UL (150-450) Mean Platelet Volume 7.6 FL (6.5-10.1) Neutrophils (%) (Auto) 79.3 % (45.0-75.0) Lymphocytes (%) (Auto) 8.3 % (20.0-45.0) Monocytes (%) (Auto) 10.1 % (1.0-10.0) Eosinophils (%) (Auto) 1.4 % (0.0-3.0) Basophils (%) (Auto) 0.8 % (0.0-2.0) Height (Feet): 5 Height (Inches): 10.00 Weight (Pounds): 218 Objective Cardiovascular: RSR Respiratory: clear Abdomen: soft, non-tender, present bowel sounds Extremities: edema, no tenderness, no cyanosis Gu: ++Derick Hwang MD Sep 19, 2020 07:03
[2020-09-19 08:00] VITALS: BP 120/87
[2020-09-19] MEDS: Theophylline 80mg/15ml ORAL SCH ×2 (08:49→17:47)
[2020-09-19] MEDS: Heparin 5000 units/ml inj SUBQ SCH ×2 (08:50→22:01)
--- NOTE | 2020-09-19 10:01 | Nephrology Progress Note ---
Assessment/Plan Problem List: (1) Renal failure (ARF), acute on chronic (2) Hyperkalemia (3) Hypothyroidism (4) Acute on chronic diastolic (congestive) heart failure (5) Diabetic nephropathy (6) Pneumonia Assessment: Leukocytosis, abnormal chest x-ray (7) Anemia Assessment 1) Renal failure (ARF), acute on chronic (2) Diabetes mellitus (3) Hypoglycemia (4) Hyperkalemia (5) Diabetic nephropathy (6) H/o Pleural effusion (7) Morbid obesity (8) Low Iron Anemia (9) HypoThyroidism Plan September 19: Patient due for dialysis today. No blood work drawn today. Medication list reviewed. Stable from renal standpoint of view. September 18: Last dialysis September 16. Next dialysis September 19 tomorrow. Status quo. Labs reviewed. Continue same management. September 17: Dialyzed yesterday. No labs drawn today. Due due for dialysis tomorrow. Continue per current management. September 16: Due for dialysis today. Labs reviewed. Continue per consultants. September 15: Patient was dialyzed yesterday. Status quo. Labs reviewed. Next hemodialysis tomorrow. September 14: Patient was dialyzed September 12. Due for dialysis today. Labs reviewed. Continue per consultants. September 13: Patient was dialyzed yesterday. Medication reviewed. Labs reviewed. White blood cells rising. Currently on dexamethasone IV for COVID-19 will dialyze again tomorrow September 12: Patient due for dialysis and ultrafiltration today. Labs reviewed. Medication list reviewed. Continue per consultants. September 11: Patient dialyzed yesterday. Labs reviewed. Patient is now COVID- 19 test positive. On isolation. Will dialyze again tomorrow. Continue per consultants. September 10: Patient due for dialysis and ultrafiltration today. Labs reviewed. And medication list reviewed. September 09: Patient was dialyzed yesterday. Due for dialysis and ultrafiltration tomorrow. Will start theophylline for although lumbar diet and also improvement of the heart rate. Recheck TSH in a.m. Continue as is. DC Chan catheter. September 08: Patient due for dialysis and ultrafiltration today. Labs reviewed. PhosLo given. Continue as is. September 07: Patient was dialyzed 2 days in a row. Ultra filtrated 3 L a day. Patient continues to be edematous however much less. Will dialyze again tomorrow with ultrafiltration. Will monitor renal parameters. September 06: Patient was dialyzed yesterday. Ultrafiltration was done. Patient remains edematous. Will do another dialysis and aim 3 L fluid removal as tolerates. Discontinue IV Lasix and oral hydralazine. Will adjust blood pressure medication as needed. Discussed with RN, antibiotics intravenously if possible should be changed to oral since there is no IV line available. 1 dose of Venofer 200 mg ordered to be given during dialysis. Subcutaneous Epogen ordered for anemia. September 05: New 24-hour urine suggestive of creatinine clearance of 3. Patient due for insertion of dialysis catheter. Hemodialysis and ultrafiltration after insertion of catheter. September 04: New 24-hour urine test is in process. Discussed with RN. Patient was short of breath overnight. ABG ordered. 1 dose of Zaroxolyn ordered. Pat ient has fluid overload, and need ultrafiltration. Blood cultures negative. Leukocytosis resolved. Will order placement of permacath and dialysis and ultrafiltration. September 03: The 24-hour urine results appears to be an error in view of total volume compared to intake and output records. Today's labs reviewed. Serum creatinine higher. Talk to the nursing charge of the floor and will order another 24-hour urine collection. Meanwhile continue per ID treatment for UTI and leukocytosis. Dexamethasone on the medication list was questioned. Patient may require dialysis if continues to have worsening renal parameters. September 02: Consent for dialysis catheter is taken. Catheter placement deferred due to leukocytosis. Surveillance blood culture ordered. Urine culture ordered. Blood pressure medication adjusted. 24-hour urine for creatinine clearance and total protein pending. Previously: Chan Cath 24 H CrCl and total protein ordered Off IV fluids, on IV Lasix Adjust BP meds Previous 2D echocardiogram ejection fraction is reported to 50% Previous Kidney ultrasound noted. Current kidney ultrasound results below Anemia work-up As needed Kayexalate for high potassium Keep blood pressure and blood sugar in check Monitor renal parameters Requires HD treatment SUDHIR KIDNEY IMPRESSION: 1. Ascites. 2. Bilateral pleural effusions. 3. Complex right renal cysts of uncertain etiology. This complex cyst is unchanged from the study of 01/12/2020. 4. Mildly atrophic right kidney. 5. Magnetic resonance imaging of the abdomen with gadolinium administration is advised for further evaluation of complex right renal cyst. Subjective ROS Limited/Unobtainable: No Constitutional: Reports: malaise, weakness Objective Objective Last 24 Hour Vital Signs Date Time Temp Pulse Resp B/P (MAP) Pulse Ox O2 Delivery O2 Flow Rate FiO2 09/19/20 08:00 97.0 81 20 120/87 (98) 96 09/19/20 04:00 73 09/19/20 04:00 97.3 76 20 136/69 (91) 98 09/19/20 00:00 98.1 77 20 103/63 (76) 99 09/19/20 00:00 75 09/18/20 21:00 Nasal Cannula 2.0 09/18/20 20:00 79 09/18/20 20:00 97.3 81 22 124/78 (93) 95 09/18/20 16:00 98.0 74 20 101/48 (65) 97 09/18/20 16:00 76 09/18/20 12:00 75 09/18/20 12:00 98.6 71 18 100/50 (67) 96 09/18/20 11:06 98.9 Intake and Output 09/18/20 09/19/20 19:00 07:00 Intake Total 360 ml Balance 360 ml Intake Oral 360 ml # Voids 1 # Bowel Movements 2 3 Current Medications Medications (Trade) Dose Ordered Sig/Braeden Route PRN Reason Start Time Stop Time Status Last Admin Dose Admin Acetaminophen (Tylenol) 500 mg Q4H PRN ORAL Mild Pain (Pain Scale 1-3) 09/18/20 08:30 10/18/20 08:29 09/18/20 10:36 Acetaminophen (Tylenol) 650 mg Q4H PRN ORAL FEVER 08/30/20 23:45 09/29/20 23:44 Calcium Acetate (Phoslo) 667 mg TIAC ORAL 09/08/20 11:30 12/07/20 11:29 09/19/20 06:01 Chlorhexidine Gluconate (Josiane-Hex 2%) 1 applic DAILY@1999 TOPIC 09/06/20 20:00 12/05/20 19:59 09/18/20 20:40 Dextrose (Dextrose 50%) 25 ml Q30M PRN IV Hypoglycemia 08/30/20 23:45 11/28/20 23:44 Dextrose (Dextrose 50%) 50 ml Q30M PRN IV Hypoglycemia 08/30/20 23:45 11/28/20 23:44 Epoetin Shlomo (Epoetin Shlomo(ESRD on dialysis)) 10,000 unit MON-TUE-TUE SUBQ 09/08/20 21:00 12/07/20 20:59 09/17/20 21:18 Folic Acid (Folate) 3 mg DAILY ORAL 09/02/20 09:00 10/02/20 08:59 09/19/20 08:49 Heparin Sodium (Porcine) (Heparin 5000 units/ml) 5,000 units EVERY 12 HOURS SUBQ 08/31/20 09:00 10/15/20 08:59 09/18/20 20:42 Insulin Aspart (NovoLOG) BEFORE MEALS AND HS SUBQ 08/31/20 06:30 11/29/20 06:29 09/18/20 20:47 Levothyroxine Sodium (Synthroid) 100 mcg DAILY@0630 ORAL 09/02/20 06:30 10/02/20 06:29 09/19/20 06:01 Metoclopramide HCl (Reglan) 5 mg THREE TIMES A DAY ORAL 08/31/20 13:00 09/30/20 12:59 09/19/20 08:49 Ondansetron HCl (Zofran) 4 mg Q6H PRN IVP Nausea & Vomiting 08/30/20 23:45 09/29/20 23:44 Pantoprazole (Protonix) 40 mg EVERY 12 HOURS ORAL 08/31/20 21:00 09/30/20 20:59 09/19/20 08:49 Polyethylene Glycol (Miralax) 17 gm DAILYPRN PRN ORAL Constipation 08/30/20 23:45 09/29/20 23:44 Promethazine HCl/ Codeine (Phenergan with Codeine) 5 ml Q6H PRN ORAL cough 08/30/20 23:45 09/29/20 23:44 Theophylline (Theophylline) 80 mg BID ORAL 09/13/20 18:00 12/08/20 13:59 09/19/20 08:49 Laboratory Tests 09/18/20 11:51: POC Whole Blood Glucose 116H 09/18/20 17:12: POC Whole Blood Glucose 148H 09/18/20 20:23: POC Whole Blood Glucose 161H 09/19/20 04:00: White Blood Count 12.7H, Red Blood Count 2.87L, Hemoglobin 8.7L, Hematocrit 27.0L, Mean Corpuscular Volume 94, Mean Corpuscular Hemoglobin 30.4, Mean Corpuscular Hemoglobin Concent 32.3, Red Cell Distribution Width 23.2H, Platelet Count 123L, Mean Platelet Volume 7.6, Neutrophils (%) (Auto) 79.3H, Lymphocytes (%) (Auto) 8.3L, Monocytes (%) (Auto) 10.1H, Eosinophils (%) (Auto) 1.4, Basophils (%) (Auto) 0.8 09/19/20 05:53: POC Whole Blood Glucose 109H Height (Feet): 5 Height (Inches): 10.00 Weight (Pounds): 218 General Appearance: no apparent distress EENT: scleral icterus Cardiovascular: normal rate Respiratory/Chest: decreased breath sounds Abdomen: distended Jay Severino MD Sep 19, 2020 10:01
--- NOTE | 2020-09-19 10:31 | General Progress Note ---
Subjective Allergies: Coded Allergies: No Known Allergies (Unverified , 10/10/19) All Systems: reviewed and negative except above Subjective events noted - interval notes reviewed glucose values are stable Item Value Date Time Bedside Blood Glucose 109 mg/dl 09/19/20 0630 Bedside Blood Glucose 161 mg/dl H 09/18/20 2100 Bedside Blood Glucose 149 mg/dl H 09/18/20 1713 Bedside Blood Glucose 116 mg/dl 09/18/20 1130 Bedside Blood Glucose 106 mg/dl 09/18/20 0630 Objective Last 24 Hour Vital Signs Date Time Temp Pulse Resp B/P (MAP) Pulse Ox O2 Delivery O2 Flow Rate FiO2 09/19/20 08:00 97.0 81 20 120/87 (98) 96 09/19/20 04:00 73 09/19/20 04:00 97.3 76 20 136/69 (91) 98 09/19/20 00:00 98.1 77 20 103/63 (76) 99 09/19/20 00:00 75 09/18/20 21:00 Nasal Cannula 2.0 09/18/20 20:00 79 09/18/20 20:00 97.3 81 22 124/78 (93) 95 09/18/20 16:00 98.0 74 20 101/48 (65) 97 09/18/20 16:00 76 09/18/20 12:00 75 09/18/20 12:00 98.6 71 18 100/50 (67) 96 09/18/20 11:06 98.9 Intake and Output 09/18/20 09/19/20 19:00 07:00 Intake Total 360 ml Balance 360 ml Intake Oral 360 ml # Voids 1 # Bowel Movements 2 3 Laboratory Tests 09/18/20 11:51: POC Whole Blood Glucose 116H 09/18/20 17:12: POC Whole Blood Glucose 148H 09/18/20 20:23: POC Whole Blood Glucose 161H 09/19/20 04:00: White Blood Count 12.7H, Red Blood Count 2.87L, Hemoglobin 8.7L, Hematocrit 27.0L, Mean Corpuscular Volume 94, Mean Corpuscular Hemoglobin 30.4, Mean Corpuscular Hemoglobin Concent 32.3, Red Cell Distribution Width 23.2H, Platelet Count 123L, Mean Platelet Volume 7.6, Neutrophils (%) (Auto) 79.3H, Lymphocytes (%) (Auto) 8.3L, Monocytes (%) (Auto) 10.1H, Eosinophils (%) (Auto) 1.4, Basophils (%) (Auto) 0.8 09/19/20 05:53: POC Whole Blood Glucose 109H Height (Feet): 5 Height (Inches): 10.00 Weight (Pounds): 218 General Appearance: no apparent distress Neck: normal alignment Cardiovascular: normal rate Respiratory/Chest: lungs clear Abdomen: normal bowel sounds Pelvis: normal external exam Objective Current Medications Medications (Trade) Dose Ordered Sig/Braeden Route PRN Reason Start Time Stop Time Status Last Admin Dose Admin Acetaminophen (Tylenol) 500 mg Q4H PRN ORAL Mild Pain (Pain Scale 1-3) 09/18/20 08:30 10/18/20 08:29 09/18/20 10:36 Acetaminophen (Tylenol) 650 mg Q4H PRN ORAL FEVER 08/30/20 23:45 09/29/20 23:44 Calcium Acetate (Phoslo) 667 mg TIAC ORAL 09/08/20 11:30 12/07/20 11:29 09/19/20 06:01 Chlorhexidine Gluconate (Josiane-Hex 2%) 1 applic DAILY@1999 TOPIC 09/06/20 20:00 12/05/20 19:59 09/18/20 20:40 Dextrose (Dextrose 50%) 25 ml Q30M PRN IV Hypoglycemia 08/30/20 23:45 11/28/20 23:44 Dextrose (Dextrose 50%) 50 ml Q30M PRN IV Hypoglycemia 08/30/20 23:45 11/28/20 23:44 Epoetin Shlomo (Epoetin Shlomo(ESRD on dialysis)) 10,000 unit TUE-WED-TUE SUBQ 09/08/20 21:00 12/07/20 20:59 09/17/20 21:18 Folic Acid (Folate) 3 mg DAILY ORAL 09/02/20 09:00 10/02/20 08:59 09/19/20 08:49 Heparin Sodium (Porcine) (Heparin 5000 units/ml) 5,000 units EVERY 12 HOURS SUBQ 08/31/20 09:00 10/15/20 08:59 09/18/20 20:42 Insulin Aspart (NovoLOG) BEFORE MEALS AND HS SUBQ 08/31/20 06:30 11/29/20 06:29 09/18/20 20:47 Levothyroxine Sodium (Synthroid) 100 mcg DAILY@0630 ORAL 09/02/20 06:30 10/02/20 06:29 09/19/20 06:01 Metoclopramide HCl (Reglan) 5 mg THREE TIMES A DAY ORAL 08/31/20 13:00 09/30/20 12:59 09/19/20 08:49 Ondansetron HCl (Zofran) 4 mg Q6H PRN IVP Nausea & Vomiting 08/30/20 23:45 09/29/20 23:44 Pantoprazole (Protonix) 40 mg EVERY 12 HOURS ORAL 08/31/20 21:00 09/30/20 20:59 09/19/20 08:49 Polyethylene Glycol (Miralax) 17 gm DAILYPRN PRN ORAL Constipation 08/30/20 23:45 09/29/20 23:44 Promethazine HCl/ Codeine (Phenergan with Codeine) 5 ml Q6H PRN ORAL cough 08/30/20 23:45 09/29/20 23:44 Theophylline (Theophylline) 80 mg BID ORAL 09/13/20 18:00 12/08/20 13:59 09/19/20 08:49 Assessment/Plan Problem List: (1) Renal failure (ARF), acute on chronic ICD Codes: N17.9 - Acute kidney failure, unspecified; N18.9 - Chronic kidney disease, unspecified SNOMED: 575883951 (2) CAD (coronary artery disease) ICD Codes: I25.10 - Atherosclerotic heart disease of [place] coronary artery without angina pectoris SNOMED: 31924741 (3) Diabetes mellitus ICD Codes: E11.9 - Type 2 diabetes mellitus without complications SNOMED: 01618527 (4) Left bundle branch block (LBBB) ICD Codes: I44.7 - Left bundle-branch block, unspecified SNOMED: 10428693 (5) Hypothyroidism ICD Codes: E03.9 - Hypothyroidism, unspecified SNOMED: 13846537 Status: progressing, unchanged Assessment/Plan: continue Novolog sliding scale ac / hs continue LT4 100 mcg daily repeat thyroid function in 2-3 weeks Jake Alexander MD Sep 19, 2020 10:31
--- NOTE | 2020-09-19 11:14 | Infectious Diseases Prog Note ---
Assessment/Plan 70yo F with: doubt recent COVID pna, -Confirmatory testing NEG x2 - False positive rapid Ag test? 08/30 Rapid COVID neg 09/10 Rapid COVID neg 09/10 Rapid COVID positive 09/10 COVID PCR NEG 09/11 CXR: 1. New right IJ approach tunneled central venous dual-lumen catheter with tip in the superior cavoatrial region. 2. Persistent bilateral patchy airspace opacities could represent multifocal pneumonia, pulmonary edema, or inflammation. 3. Unchanged cardiomegaly with sternotomy and mediastinal operative findings. 4. Right apical and lateral pleural thickening, similar to prior could represent pleural fluid or pleural thickening. 5. Low lung volumes with bronchovascular crowding. 09/15 CXR: Slightly increased bilateral interstitial and airspace edema increased right pleural fluid, over 4 days Severe Sepsis, sp Rx Pneumonia, Sp Acute hypoxic resp failure- on 2L NC R pleural effusion, transudate -09/03 SP Thoracentesis: Successful ultrasound-guided thoracentesis, yielding 680 milliliters of clear yellow fluid; cx NTD -fluid prot 1.4, glucose 198 -09/01 Chest US: Positive for right pleural effusion Incidental finding of ascites, also previously reporte -08/30 CXR: There is again patchy ill-defined airspace opacities at the right greater than left base with some consolidated appearance again seen on the right. There is now patchy ill-defined opacity at the right upper lung. A small right pleural effusion is suggested. The patient is rotated to the right. Status post median sternotomy again noted. -08/30 & 8 rapid covid PCR neg x2 -08/30 Bcx NTD R/o UTI 09/09 UA 15-20 WBC, UCx NTD, UCx +80-90k VRE (S-linezolid), m/l colonizer Afebrile Leukocytosis, SP -09/02 Bcx NTD -08/31 u/a no pyuria R arm and R leg cellulitis; improving Recent hx of COVID19- pt clarified initial diagnosis was 2 months ago and not 08/25 as per documentation on EMR. VENANCIO on CKD -Renal US: Ascites. Bilateral pleural effusions. Complex right renal cysts of uncertain etiology. This complex cyst is unchanged from the study of 01/12/2020. Mildly atrophic right kidney.Magnetic resonance imaging of the abdomen with gadolinium administration is advised for further evaluation of complex right renal cyst. HIV screen neg PMH: HTN dCHF pHTN Ascites Chronic LE edema DM2 c/w neuropathy Iron def anemia Plan: Cont to monitor off abx Trend WBC, 2/2 steroids 09/15 SP dexa #5 empiric given COVID Ag+, PCR neg 09/09 SP ceftaroline and levofloxacin #9 (abx d #08/02) 08/31 SP Ceftriaxone #2, Azithromcyin #2 -f/u cx -Monitor CBC/CMP, temperatures -aspiration precautions DC COVID iso D/w RN Thank you for consulting [facility]. Will continue to follow along with you. Subjective Allergies: Coded Allergies: No Known Allergies (Unverified , 10/10/19) afebrile Objective Last 24 Hour Vital Signs Date Time Temp Pulse Resp B/P (MAP) Pulse Ox O2 Delivery O2 Flow Rate FiO2 09/19/20 08:00 97.0 81 20 120/87 (98) 96 09/19/20 04:00 73 09/19/20 04:00 97.3 76 20 136/69 (91) 98 09/19/20 00:00 98.1 77 20 103/63 (76) 99 09/19/20 00:00 75 09/18/20 21:00 Nasal Cannula 2.0 09/18/20 20:00 79 09/18/20 20:00 97.3 81 22 124/78 (93) 95 09/18/20 16:00 98.0 74 20 101/48 (65) 97 09/18/20 16:00 76 09/18/20 12:00 75 09/18/20 12:00 98.6 71 18 100/50 (67) 96 Height (Feet): 5 Height (Inches): 10.00 Weight (Pounds): 218 HEENT: atraumatic Respiratory/Chest: normal breath sounds Cardiovascular: regularly irregular Abdomen: no organomegaly Microbiology Date/Time Source Procedure Growth Status 09/17/20 14:50 Nasopharynx Coronavirus COVID-19 PCR (QUIANA) - Final Complete 09/17/20 14:10 Ascities Fluid Gram Stain - Final Resulted 09/17/20 14:10 Ascities Fluid Body Fluid Culture - Preliminary NO GROWTH Resulted Laboratory Tests Test 09/18/20 11:51 09/18/20 17:12 09/18/20 20:23 09/19/20 04:00 POC Whole Blood Glucose 116 MG/DL (74-106) H 148 MG/DL (74-106) H 161 MG/DL (74-106) H White Blood Count 12.7 K/UL (4.8-10.8) H Red Blood Count 2.87 M/UL (4.20-5.40) L Hemoglobin 8.7 G/DL (12.0-16.0) L Hematocrit 27.0 % (37.0-47.0) L Mean Corpuscular Volume 94 FL (80-99) Mean Corpuscular Hemoglobin 30.4 PG (27.0-31.0) Mean Corpuscular Hemoglobin Concent 32.3 G/DL (32.0-36.0) Red Cell Distribution Width 23.2 % (11.6-14.8) H Platelet Count 123 K/UL (150-450) L Mean Platelet Volume 7.6 FL (6.5-10.1) Neutrophils (%) (Auto) 79.3 % (45.0-75.0) H Lymphocytes (%) (Auto) 8.3 % (20.0-45.0) L Monocytes (%) (Auto) 10.1 % (1.0-10.0) H Eosinophils (%) (Auto) 1.4 % (0.0-3.0) Basophils (%) (Auto) 0.8 % (0.0-2.0) Test 09/19/20 05:53 POC Whole Blood Glucose 109 MG/DL (74-106) H Current Medications Medications (Trade) Dose Ordered Sig/Braeden Route PRN Reason Start Time Stop Time Status Last Admin Dose Admin Acetaminophen (Tylenol) 500 mg Q4H PRN ORAL Mild Pain (Pain Scale 1-3) 09/18/20 08:30 10/18/20 08:29 09/18/20 10:36 Acetaminophen (Tylenol) 650 mg Q4H PRN ORAL FEVER 08/30/20 23:45 09/29/20 23:44 Calcium Acetate (Phoslo) 667 mg TIAC ORAL 09/08/20 11:30 12/07/20 11:29 09/19/20 06:01 Chlorhexidine Gluconate (Josiane-Hex 2%) 1 applic DAILY@1999 TOPIC 09/06/20 20:00 12/05/20 19:59 09/18/20 20:40 Dextrose (Dextrose 50%) 25 ml Q30M PRN IV Hypoglycemia 08/30/20 23:45 11/28/20 23:44 Dextrose (Dextrose 50%) 50 ml Q30M PRN IV Hypoglycemia 08/30/20 23:45 11/28/20 23:44 Epoetin Shlomo (Epoetin Shlomo(ESRD on dialysis)) 10,000 unit SUBQ 09/08/20 21:00 12/07/20 20:59 09/17/20 21:18 Folic Acid (Folate) 3 mg DAILY ORAL 09/02/20 09:00 10/02/20 08:59 09/19/20 08:49 Heparin Sodium (Porcine) (Heparin 5000 units/ml) 5,000 units EVERY 12 HOURS SUBQ 08/31/20 09:00 10/15/20 08:59 09/18/20 20:42 Insulin Aspart (NovoLOG) BEFORE MEALS AND HS SUBQ 08/31/20 06:30 11/29/20 06:29 09/18/20 20:47 Levothyroxine Sodium (Synthroid) 100 mcg DAILY@0630 ORAL 09/02/20 06:30 10/02/20 06:29 09/19/20 06:01 Metoclopramide HCl (Reglan) 5 mg THREE TIMES A DAY ORAL 08/31/20 13:00 09/30/20 12:59 09/19/20 08:49 Ondansetron HCl (Zofran) 4 mg Q6H PRN IVP Nausea & Vomiting 08/30/20 23:45 09/29/20 23:44 Pantoprazole (Protonix) 40 mg EVERY 12 HOURS ORAL 08/31/20 21:00 09/30/20 20:59 09/19/20 08:49 Polyethylene Glycol (Miralax) 17 gm DAILYPRN PRN ORAL Constipation 08/30/20 23:45 09/29/20 23:44 Promethazine HCl/ Codeine (Phenergan with Codeine) 5 ml Q6H PRN ORAL cough 08/30/20 23:45 09/29/20 23:44 Theophylline (Theophylline) 80 mg BID ORAL 09/13/20 18:00 12/08/20 13:59 09/19/20 08:49 Ayush Rodriguez MD Sep 19, 2020 11:14
--- NOTE | 2020-09-19 11:30 | Cardiac Electrophysiology PN ---
Assessment/Plan Assessment/Plan 1. Volume overload due to renal failure Echo showed EF of 50%. On HD after PermCath placement 09/05. 2. Left bundle-branch block. 3. Diastolic dysfunction. EF 50%. 4. Hyperkalemia. Got Kayexalate and on HD by Dr. Severino. 5. Diabetic nephropathy. 6. Renal failure. BUN/Cr 81/3.8 S/P PermCath and dialysis 7. Hypothyroidism. 8. Iron-deficiency anemia. 9. Right pleural effusion. S/P 800cc Right thoracentesis 09/03/20 10. Covid PCR negative x2 now but [facility] Subjective Subjective S/P Right chest PermCath and HD No CP in SR in NAD. Was in isolation as Rapid Covid was positive on 09/10 DC to [facility] pending Objective Last 24 Hour Vital Signs Date Time Temp Pulse Resp B/P (MAP) Pulse Ox O2 Delivery O2 Flow Rate FiO2 09/19/20 08:00 97.0 81 20 120/87 (98) 96 09/19/20 04:00 73 09/19/20 04:00 97.3 76 20 136/69 (91) 98 09/19/20 00:00 98.1 77 20 103/63 (76) 99 09/19/20 00:00 75 09/18/20 21:00 Nasal Cannula 2.0 09/18/20 20:00 79 09/18/20 20:00 97.3 81 22 124/78 (93) 95 09/18/20 16:00 98.0 74 20 101/48 (65) 97 09/18/20 16:00 76 09/18/20 12:00 75 09/18/20 12:00 98.6 71 18 100/50 (67) 96 Intake and Output 09/18/20 09/19/20 19:00 07:00 Intake Total 360 ml Balance 360 ml Intake Oral 360 ml # Voids 1 # Bowel Movements 2 3 Laboratory Tests Test 09/18/20 11:51 09/18/20 17:12 09/18/20 20:23 09/19/20 04:00 POC Whole Blood Glucose 116 MG/DL (74-106) H 148 MG/DL (74-106) H 161 MG/DL (74-106) H White Blood Count 12.7 K/UL (4.8-10.8) H Red Blood Count 2.87 M/UL (4.20-5.40) L Hemoglobin 8.7 G/DL (12.0-16.0) L Hematocrit 27.0 % (37.0-47.0) L Mean Corpuscular Volume 94 FL (80-99) Mean Corpuscular Hemoglobin 30.4 PG (27.0-31.0) Mean Corpuscular Hemoglobin Concent 32.3 G/DL (32.0-36.0) Red Cell Distribution Width 23.2 % (11.6-14.8) H Platelet Count 123 K/UL (150-450) L Mean Platelet Volume 7.6 FL (6.5-10.1) Neutrophils (%) (Auto) 79.3 % (45.0-75.0) H Lymphocytes (%) (Auto) 8.3 % (20.0-45.0) L Monocytes (%) (Auto) 10.1 % (1.0-10.0) H Eosinophils (%) (Auto) 1.4 % (0.0-3.0) Basophils (%) (Auto) 0.8 % (0.0-2.0) Test 09/19/20 05:53 POC Whole Blood Glucose 109 MG/DL (74-106) H Microbiology Date/Time Source Procedure Growth Status 09/17/20 14:50 Nasopharynx Coronavirus COVID-19 PCR (QUIANA) - Final Complete 09/17/20 14:10 Ascities Fluid Gram Stain - Final Resulted 09/17/20 14:10 Ascities Fluid Body Fluid Culture - Preliminary NO GROWTH AFTER 48 HOURS Resulted Objective HEAD AND NECK: No JVD. LUNGS: Coarse rhonchi, bibasilar rales.Right chest PermCath CARDIOVASCULAR: Regular S1 and S2 with no gallop. ABDOMEN: Soft. EXTREMITIES: Bilateral 2+ pitting edema and bandage on both legs Sina Paulson MD Sep 19, 2020 11:30
--- NOTE | 2020-09-19 11:55 | Pulmonology Progress Note ---
Subjective ROS Limited/Unobtainable: No Interval Events: no new events Allergies: Coded Allergies: No Known Allergies (Unverified , 10/10/19) All Systems: reviewed and negative except above Objective Last 24 Hour Vital Signs Date Time Temp Pulse Resp B/P (MAP) Pulse Ox O2 Delivery O2 Flow Rate FiO2 09/19/20 08:00 97.0 81 20 120/87 (98) 96 09/19/20 04:00 73 09/19/20 04:00 97.3 76 20 136/69 (91) 98 09/19/20 00:00 98.1 77 20 103/63 (76) 99 09/19/20 00:00 75 09/18/20 21:00 Nasal Cannula 2.0 09/18/20 20:00 79 09/18/20 20:00 97.3 81 22 124/78 (93) 95 09/18/20 16:00 98.0 74 20 101/48 (65) 97 09/18/20 16:00 76 09/18/20 12:00 75 09/18/20 12:00 98.6 71 18 100/50 (67) 96 Intake and Output 09/18/20 09/19/20 19:00 07:00 Intake Total 360 ml Balance 360 ml Intake Oral 360 ml # Voids 1 # Bowel Movements 2 3 General Appearance: WD/WN HEENT: normocephalic, atraumatic Respiratory: chest wall non-tender, lungs clear, normal breath sounds Cardiovascular: normal peripheral pulses, normal rate Abdomen: normal bowel sounds, soft, non tender, no scars Extremities: no cyanosis Skin: no rash Neurologic: automatic fabric cutter II-XII grossly normal Lymphatic: no neck adenopathy Microbiology Date/Time Source Procedure Growth Status 09/17/20 14:50 Nasopharynx Coronavirus COVID-19 PCR (QUIANA) - Final Complete 09/17/20 14:10 Ascities Fluid Gram Stain - Final Resulted 09/17/20 14:10 Ascities Fluid Body Fluid Culture - Preliminary NO GROWTH AFTER 48 HOURS Resulted Laboratory Tests 09/18/20 17:12: POC Whole Blood Glucose 148H 09/18/20 20:23: POC Whole Blood Glucose 161H 09/19/20 04:00: White Blood Count 12.7H, Red Blood Count 2.87L, Hemoglobin 8.7L, Hematocrit 27.0L, Mean Corpuscular Volume 94, Mean Corpuscular Hemoglobin 30.4, Mean Corpuscular Hemoglobin Concent 32.3, Red Cell Distribution Width 23.2H, Platelet Count 123L, Mean Platelet Volume 7.6, Neutrophils (%) (Auto) 79.3H, Lymphocytes (%) (Auto) 8.3L, Monocytes (%) (Auto) 10.1H, Eosinophils (%) (Auto) 1.4, Basophils (%) (Auto) 0.8 09/19/20 05:53: POC Whole Blood Glucose 109H Current Medications Medications (Trade) Dose Ordered Sig/[place] Route PRN Reason Start Time Stop Time Status Last Admin Dose Admin Acetaminophen (Tylenol) 500 mg Q4H PRN ORAL Mild Pain (Pain Scale 1-3) 09/18/20 08:30 10/18/20 08:29 09/18/20 10:36 Acetaminophen (Tylenol) 650 mg Q4H PRN ORAL FEVER 08/30/20 23:45 09/29/20 23:44 Calcium Acetate (Phoslo) 667 mg TIAC ORAL 09/08/20 11:30 12/07/20 11:29 09/19/20 06:01 Chlorhexidine Gluconate (Josiane-Hex 2%) 1 applic DAILY@1999 TOPIC 09/06/20 20:00 12/05/20 19:59 09/18/20 20:40 Dextrose (Dextrose 50%) 25 ml Q30M PRN IV Hypoglycemia 08/30/20 23:45 11/28/20 23:44 Dextrose (Dextrose 50%) 50 ml Q30M PRN IV Hypoglycemia 08/30/20 23:45 11/28/20 23:44 Epoetin Shlomo (Epoetin Shlomo(ESRD on dialysis)) 10,000 unit TUE-TUE-TUE SUBQ 09/08/20 21:00 12/07/20 20:59 09/17/20 21:18 Folic Acid (Folate) 3 mg DAILY ORAL 09/02/20 09:00 10/02/20 08:59 09/19/20 08:49 Heparin Sodium (Porcine) (Heparin 5000 units/ml) 5,000 units EVERY 12 HOURS SUBQ 08/31/20 09:00 10/15/20 08:59 09/18/20 20:42 Insulin Aspart (NovoLOG) BEFORE MEALS AND HS SUBQ 08/31/20 06:30 11/29/20 06:29 09/18/20 20:47 Levothyroxine Sodium (Synthroid) 100 mcg DAILY@0630 ORAL 09/02/20 06:30 10/02/20 06:29 09/19/20 06:01 Metoclopramide HCl (Reglan) 5 mg THREE TIMES A DAY ORAL 08/31/20 13:00 09/30/20 12:59 09/19/20 08:49 Ondansetron HCl (Zofran) 4 mg Q6H PRN IVP Nausea & Vomiting 08/30/20 23:45 09/29/20 23:44 Pantoprazole (Protonix) 40 mg EVERY 12 HOURS ORAL 08/31/20 21:00 09/30/20 20:59 09/19/20 08:49 Polyethylene Glycol (Miralax) 17 gm DAILYPRN PRN ORAL Constipation 08/30/20 23:45 09/29/20 23:44 Promethazine HCl/ Codeine (Phenergan with Codeine) 5 ml Q6H PRN ORAL cough 08/30/20 23:45 09/29/20 23:44 Theophylline (Theophylline) 80 mg BID ORAL 09/13/20 18:00 12/08/20 13:59 09/19/20 08:49 Assessment/Plan Problems: (1) 2019 novel coronavirus disease (COVID-19) (2) Acute on chronic diastolic (congestive) heart failure (3) Gout (4) Renal failure (ARF), acute on chronic (5) Diabetes mellitus (6) Left bundle branch block (LBBB) (7) Cardiac left ventricular ejection fraction greater than 40 percent (8) Grade I diastolic dysfunction (9) History of hypertension Assessment/Plan COVID negative on 09/17 US of chest for thoracentesis, because of persistent leukocytosis, 450 cc removed on09/17. doing better COVID positive, repeat again today sitting up in the chair f/u ID recommendations f/u inflammatory markers. O2 titrate to keep sat > 92%, currently down to O2 via NC DVT prophylaxis\ Tiana Cool MD Sep 19, 2020 11:55
[2020-09-19 12:00] VITALS: BP 130/76
--- NOTE | 2020-09-19 13:44 | Surgery Progress Note ---
Surgery Progress Note Subjective Additional Comments wbc 12k +flatus no n/v labs noted eaxms table Objective Last 24 Hour Vital Signs Date Time Temp Pulse Resp B/P (MAP) Pulse Ox O2 Delivery O2 Flow Rate FiO2 09/19/20 12:00 76 09/19/20 08:00 97.0 81 20 120/87 (98) 96 09/19/20 08:00 75 09/19/20 04:00 73 09/19/20 04:00 97.3 76 20 136/69 (91) 98 09/19/20 00:00 98.1 77 20 103/63 (76) 99 09/19/20 00:00 75 09/18/20 21:00 Nasal Cannula 2.0 09/18/20 20:00 79 09/18/20 20:00 97.3 81 22 124/78 (93) 95 09/18/20 16:00 98.0 74 20 101/48 (65) 97 09/18/20 16:00 76 I&O Intake and Output 09/18/20 09/19/20 19:00 07:00 Intake Total 360 ml Balance 360 ml Intake Oral 360 ml # Voids 1 # Bowel Movements 2 3 Dressing: saturated Cardiovascular: RSR Respiratory: decreased breath sounds Abdomen: soft, non-tender, present bowel sounds, non-distended Extremities: edema, no tenderness, no cyanosis Laboratory Tests Test 09/18/20 17:12 09/18/20 20:23 09/19/20 04:00 09/19/20 05:53 POC Whole Blood Glucose 148 MG/DL (74-106) H 161 MG/DL (74-106) H 109 MG/DL (74-106) H White Blood Count 12.7 K/UL (4.8-10.8) H Red Blood Count 2.87 M/UL (4.20-5.40) L Hemoglobin 8.7 G/DL (12.0-16.0) L Hematocrit 27.0 % (37.0-47.0) L Mean Corpuscular Volume 94 FL (80-99) Mean Corpuscular Hemoglobin 30.4 PG (27.0-31.0) Mean Corpuscular Hemoglobin Concent 32.3 G/DL (32.0-36.0) Red Cell Distribution Width 23.2 % (11.6-14.8) H Platelet Count 123 K/UL (150-450) L Mean Platelet Volume 7.6 FL (6.5-10.1) Neutrophils (%) (Auto) 79.3 % (45.0-75.0) H Lymphocytes (%) (Auto) 8.3 % (20.0-45.0) L Monocytes (%) (Auto) 10.1 % (1.0-10.0) H Eosinophils (%) (Auto) 1.4 % (0.0-3.0) Basophils (%) (Auto) 0.8 % (0.0-2.0) Plan Problems: (1) Acute on chronic diastolic (congestive) heart failure (2) Anemia (3) Acute respiratory failure Assessment & Plan: Large right pleural effusion persists, unchanged. Bilateral interstitial and airspace edema, cardiomegaly persists, probably unchanged allowing for differences in technique and inspiration (4) ACS (acute coronary syndrome) (5) History of hypertension (6) Moderate pulmonary arterial systolic hypertension (7) Left bundle branch block (LBBB) (8) Diabetes mellitus (9) Diabetic nephropathy (10) Renal failure (ARF), acute on chronic (11) Hyperkalemia (12) Bacteremia (13) CAD (coronary artery disease) (14) Hypothyroidism (15) Cardiac left ventricular ejection fraction greater than 40 percent (16) Grade I diastolic dysfunction (17) UTI (urinary tract infection) (18) Ulcers of both lower legs (19) Open wounds involving multiple regions of lower extremity Assessment & Plan: Patient identified admission having bilateral lower extremity edema open wounds as well as necrotic ulcerations. Patient states she has had this for some time now and acutely worsening as well. Bilateral lower leg wounds do to blisters from edema. Right medial lower leg wound 2.1x4.2x0.2 dark brown scab . Right anterior lower leg wound 5.6x5.3x0.2 pink wound bed. Right distal anterior lower leg 4.0x6.0x0.2 pink wound bed . Large amount serous drainage right leg wounds , Xeroform ,gauze,abd pad and kerlix applied change every shift. Left lower leg wound 3.7x5.0x0.3 100% green slough large amount serous drainage noted with small blisters ifeoma wound, Thera Honey, gauze,abd pad and kerlix applied, change every shift. Local wound care plan initiate Nutritional optimization Turn every 2 hours Elevate extremities Thank you will follow recommendations Right deep veins: Unremarkable. No DVT in the right common femoral, femoral, proximal deep femoral or popliteal veins. The veins demonstrate normal color flow, are normally compressible, with normal phasic flow and/or augmentation response. Right superficial veins: Unremarkable. No thrombus in the visualized right great saphenous vein. Left deep veins: Unremarkable. No DVT in the left common femoral, femoral, proximal deep femoral or popliteal veins. The veins demonstrate normal color flow, are normally compressible, with normal phasic flow and/or augmentation response. Left superficial veins: Unremarkable. No thrombus in the visualized left great saphenous vein. Soft tissues: No acute findings. No popliteal cyst. IMPRESSION: Normal bilateral lower extremity duplex venous ultrasound. DAILY ESTIMATED NEEDS: Needs based on ARF, now HD 65.7kg abw 25-30 kcals/kg 2566-2551 total kcals 1.25-1.8 g protein/kg 82-118 g total protein Fluid per MD, HD pending NUTRITION DIAGNOSIS: Increased pro needs r/t renal dysfunction as evidenced by pt w/ ARF, w/ now pending HD, K on adm (5.8), elev BUN (81), elev Creat (3.8), elev phos and mg. CURRENT DIET:Renal/ CCHO MED PO DIET RECOMMENDATIONS: Renal / CCHO LOW diet + high pro snacks in b/w meals ADDITIONAL RECOMMENDATIONS: 1) Maintain calibrated bed scale wts 2) High pro snacks in b/w meals 3) Rec WC eval-> add nephrovite 1 tab daily Vit C per nephro (20) Pneumonia (21) Gout (22) 2019 novel coronavirus disease (COVID-19) Assessment & Plan: +++ during hospitalization on tx isolation (23) COVID-19 GeoffOmar Sep 19, 2020 13:44
[2020-09-19 16:00] VITALS: BP 127/79
[2020-09-19 20:00] VITALS: BP 116/46
--- NOTE | 2020-09-19 20:13 | General Progress Note ---
Subjective ROS Limited/Unobtainable: Yes Allergies: Coded Allergies: No Known Allergies (Unverified , 10/10/19) Objective Last 24 Hour Vital Signs Date Time Temp Pulse Resp B/P (MAP) Pulse Ox O2 Delivery O2 Flow Rate FiO2 09/19/20 16:00 72 09/19/20 16:00 97.3 75 19 127/79 (95) 95 09/19/20 12:00 76 09/19/20 12:00 97.4 82 20 130/76 (94) 95 09/19/20 09:00 Nasal Cannula 2.0 09/19/20 08:00 97.0 81 20 120/87 (98) 96 09/19/20 08:00 75 09/19/20 04:00 73 09/19/20 04:00 97.3 76 20 136/69 (91) 98 09/19/20 00:00 98.1 77 20 103/63 (76) 99 09/19/20 00:00 75 09/18/20 21:00 Nasal Cannula 2.0 Intake and Output 09/18/20 09/19/20 19:00 07:00 Intake Total 360 ml Balance 360 ml Intake Oral 360 ml # Voids 1 # Bowel Movements 2 3 Laboratory Tests 09/18/20 20:23: POC Whole Blood Glucose 161H 09/19/20 04:00: White Blood Count 12.7H, Red Blood Count 2.87L, Hemoglobin 8.7L, Hematocrit 27.0L, Mean Corpuscular Volume 94, Mean Corpuscular Hemoglobin 30.4, Mean Corpuscular Hemoglobin Concent 32.3, Red Cell Distribution Width 23.2H, Platelet Count 123L, Mean Platelet Volume 7.6, Neutrophils (%) (Auto) 79.3H, Lymphocytes (%) (Auto) 8.3L, Monocytes (%) (Auto) 10.1H, Eosinophils (%) (Auto) 1.4, Basophils (%) (Auto) 0.8 09/19/20 05:53: POC Whole Blood Glucose 109H 09/19/20 14:45: POC Whole Blood Glucose 193H 09/19/20 17:37: POC Whole Blood Glucose 213H Height (Feet): 5 Height (Inches): 10.00 Weight (Pounds): 218 Assessment/Plan Problem List: (1) Anemia ICD Codes: D64.9 - Anemia, unspecified SNOMED: 491966734 (2) Ulcers of both lower legs ICD Codes: L97.919 - Non-pressure chronic ulcer of unspecified part of right lower leg with unspecified severity; L97.929 - Non-pressure chronic ulcer of unspecified part of left lower leg with unspecified severity SNOMED: 91427691, 893525252 (3) Open wounds involving multiple regions of lower extremity ICD Codes: S81.809A - Unspecified open wound, unspecified lower leg, initial encounter SNOMED: 230988253 (4) Pneumonia ICD Codes: J18.9 - Pneumonia, unspecified organism SNOMED: 260382559 (5) History of hypertension ICD Codes: Z86.79 - Personal history of other diseases of the circulatory system SNOMED: 031465503 (6) Diabetes mellitus ICD Codes: E11.9 - Type 2 diabetes mellitus without complications SNOMED: 69829205 (7) Renal failure (ARF), acute on chronic ICD Codes: N17.9 - Acute kidney failure, unspecified; N18.9 - Chronic kidney disease, unspecified SNOMED: 961886541 (8) Hyperkalemia ICD Codes: E87.5 - Hyperkalemia SNOMED: 45825673 (9) CAD (coronary artery disease) ICD Codes: I25.10 - Atherosclerotic heart disease of [place] coronary artery without angina pectoris SNOMED: 69589584 (10) Hypothyroidism ICD Codes: E03.9 - Hypothyroidism, unspecified SNOMED: 38786601 (11) Cardiac left ventricular ejection fraction greater than 40 percent ICD Codes: R94.30 - Abnormal result of cardiovascular function study, unspecified SNOMED: 653400181 (12) Grade I diastolic dysfunction ICD Codes: I51.9 - Heart disease, unspecified SNOMED: 6859300 Status: progressing, unchanged Assessment/Plan: pleural effusion s/p thoracocentesis no pneumothrax dc planning to [place] afebrile check Tj Muller MD Sep 19, 2020 20:13
[2020-09-19] MEDS: Dyna-Hex 2% Top Sol 2oz TOPIC SCH (22:00)
[2020-09-19] MEDS: Epoetin Alfa-EPBX(ESRD on dialysis)10,000 unit/ml vial SUBQ SCH (22:01)
[2020-09-19] MEDS: Acetaminophen 500mg (ES) tab ORAL PRN (22:37)
[2020-09-20] VITALS: BP 123/55
[2020-09-20 04:00] VITALS: BP 114/71
[2020-09-20 06:10] LABS: BASOPHILS % (AUTO) 1.2 % (0.0-2.0); EOSINOPHILS % (AUTO) 2.5 % (0.0-3.0); HEMATOCRIT 27.3 % (37.0-47.0); HEMOGLOBIN 8.7 G/DL (12.0-16.0); LYMPHOCYTES % (AUTO) 9.2 % (20.0-45.0); MEAN CORPUSCULAR VOLUME 94 FL (80-99); MONOCYTES % (AUTO) 9.8 % (1.0-10.0); NEUTROPHILS % (AUTO) 77.4 % (45.0-75.0); PLATELET COUNT 129 K/UL (150-450); RED CELL DISTRIBUTION WIDTH 23.3 % (11.6-14.8); WHITE BLOOD COUNT 9.5 K/UL (4.8-10.8)
[2020-09-20] MEDS: NovoLOG Insulin Flexpen SUBQ SCH ×2 (06:30→11:30)
[2020-09-20 06:45] LABS: ALBUMIN 2.9 G/DL (3.4-5.0); ALBUMIN/GLOBULIN RATIO 0.7 (1.0-2.7); BILIRUBIN,TOTAL 0.9 MG/DL (0.2-1.0); CALCIUM 8.2 MG/DL (8.5-10.1); CREATININE 5.5 MG/DL (0.55-1.30); PHOSPHORUS 3.6 MG/DL (2.5-4.9); POTASSIUM 4.5 MMOL/L (3.5-5.1)
[2020-09-20 08:00] VITALS: BP 100/69
--- NOTE | 2020-09-20 08:52 | Infectious Diseases Prog Note ---
Assessment/Plan 70yo F with: doubt recent COVID pna, -Confirmatory testing NEG x2 - False positive rapid Ag test? 08/30 Rapid COVID neg 09/10 Rapid COVID neg 09/10 Rapid COVID positive 09/10 COVID PCR NEG 09/11 CXR: 1. New right IJ approach tunneled central venous dual-lumen catheter with tip in the superior cavoatrial region. 2. Persistent bilateral patchy airspace opacities could represent multifocal pneumonia, pulmonary edema, or inflammation. 3. Unchanged cardiomegaly with sternotomy and mediastinal operative findings. 4. Right apical and lateral pleural thickening, similar to prior could represent pleural fluid or pleural thickening. 5. Low lung volumes with bronchovascular crowding. 09/15 CXR: Slightly increased bilateral interstitial and airspace edema increased right pleural fluid, over 4 days Severe Sepsis, sp Rx Pneumonia, Sp Acute hypoxic resp failure- on 2L NC R pleural effusion, transudate -09/03 SP Thoracentesis: Successful ultrasound-guided thoracentesis, yielding 680 milliliters of clear yellow fluid; cx NTD -fluid prot 1.4, glucose 198 -09/01 Chest US: Positive for right pleural effusion Incidental finding of ascites, also previously reporte -08/30 CXR: There is again patchy ill-defined airspace opacities at the right greater than left base with some consolidated appearance again seen on the right. There is now patchy ill-defined opacity at the right upper lung. A small right pleural effusion is suggested. The patient is rotated to the right. Status post median sternotomy again noted. -08/30 & 8 rapid covid PCR neg x2 -08/30 Bcx NTD R/o UTI 09/09 UA 15-20 WBC, UCx NTD, UCx +80-90k VRE (S-linezolid), m/l colonizer Afebrile Leukocytosis, SP -09/02 Bcx NTD -08/31 u/a no pyuria R arm and R leg cellulitis; improving Recent hx of COVID19- pt clarified initial diagnosis was 2 months ago and not 08/25 as per documentation on EMR. VENANCIO on CKD -Renal US: Ascites. Bilateral pleural effusions. Complex right renal cysts of uncertain etiology. This complex cyst is unchanged from the study of 01/12/2020. Mildly atrophic right kidney.Magnetic resonance imaging of the abdomen with gadolinium administration is advised for further evaluation of complex right renal cyst. HIV screen neg PMH: HTN dCHF pHTN Ascites Chronic LE edema DM2 c/w neuropathy Iron def anemia Plan: Monitor off abx Trend WBC, 2/2 steroids 09/15 SP dexa #5 empiric given COVID Ag+, PCR neg 09/09 SP ceftaroline and levofloxacin #9 (abx d #/) 08/31 SP Ceftriaxone #2, Azithromcyin #2 -f/u cx -Monitor CBC/CMP, temperatures -aspiration precautions DC COVID iso D/w RN Thank you for consulting [facility]. Will continue to follow along with you. Subjective Allergies: Coded Allergies: No Known Allergies (Unverified , 10/10/19) Afebrile Leukocytosis now resolved Off abx Objective Last 24 Hour Vital Signs Date Time Temp Pulse Resp B/P (MAP) Pulse Ox O2 Delivery O2 Flow Rate FiO2 09/20/20 04:00 98.1 79 20 114/71 (85) 96 09/20/20 04:00 71 09/20/20 00:00 98.1 84 22 123/55 (77) 96 09/20/20 00:00 82 09/19/20 23:07 97.3 09/19/20 21:00 Nasal Cannula 2.0 09/19/20 20:13 80 20 98 Nasal Cannula 2.0 28 09/19/20 20:13 98 Nasal Cannula 2.0 28 09/19/20 20:00 82 09/19/20 20:00 97.3 77 18 116/46 (69) 98 09/19/20 16:00 72 09/19/20 16:00 97.3 75 19 127/79 (95) 95 09/19/20 12:00 76 09/19/20 12:00 97.4 82 20 130/76 (94) 95 09/19/20 09:00 Nasal Cannula 2.0 Height (Feet): 5 Height (Inches): 10.00 Weight (Pounds): 218 GEN: NAD HEENT: NCAT, MMM, EOMI Chest: RRR, Equal rise and fall B/L Abdomen: Soft, ND Microbiology Date/Time Source Procedure Growth Status 09/17/20 14:50 Nasopharynx Coronavirus COVID-19 PCR (QUIANA) - Final Complete 09/17/20 14:10 Ascities Fluid Gram Stain - Final Resulted 09/17/20 14:10 Ascities Fluid Body Fluid Culture - Preliminary NO GROWTH AFTER 72 HOURS Resulted Laboratory Tests Test 09/19/20 14:45 09/19/20 17:37 09/19/20 22:12 09/20/20 05:20 POC Whole Blood Glucose 193 MG/DL (74-106) H 213 MG/DL (74-106) H 137 MG/DL (74-106) H White Blood Count 9.5 K/UL (4.8-10.8) Red Blood Count 2.90 M/UL (4.20-5.40) L Hemoglobin 8.7 G/DL (12.0-16.0) L Hematocrit 27.3 % (37.0-47.0) L Mean Corpuscular Volume 94 FL (80-99) Mean Corpuscular Hemoglobin 30.0 PG (27.0-31.0) Mean Corpuscular Hemoglobin Concent 32.0 G/DL (32.0-36.0) Red Cell Distribution Width 23.3 % (11.6-14.8) H Platelet Count 129 K/UL (150-450) L Mean Platelet Volume 7.8 FL (6.5-10.1) Neutrophils (%) (Auto) 77.4 % (45.0-75.0) H Lymphocytes (%) (Auto) 9.2 % (20.0-45.0) L Monocytes (%) (Auto) 9.8 % (1.0-10.0) Eosinophils (%) (Auto) 2.5 % (0.0-3.0) Basophils (%) (Auto) 1.2 % (0.0-2.0) Sodium Level 136 MMOL/L (136-145) Potassium Level 4.5 MMOL/L (3.5-5.1) Chloride Level 100 MMOL/L (98-107) Carbon Dioxide Level 25 MMOL/L (21-32) Anion Gap 11 mmol/L (5-15) Blood Urea Nitrogen 69 mg/dL (7-18) H Creatinine 5.5 MG/DL (0.55-1.30) H Estimat Glomerular Filtration Rate 7.7 mL/min (>60) Glucose Level 86 MG/DL (74-106) Calcium Level 8.2 MG/DL (8.5-10.1) L Phosphorus Level 3.6 MG/DL (2.5-4.9) Magnesium Level 2.6 MG/DL (1.8-2.4) H Total Bilirubin 0.9 MG/DL (0.2-1.0) Aspartate Amino Transf (AST/SGOT) 28 U/L (15-37) Alanine Aminotransferase (ALT/SGPT) 20 U/L (12-78) Alkaline Phosphatase 226 U/L (46-116) H C-Reactive Protein, Quantitative 15.2 mg/dL (0.00-0.90) H Pro-B-Type Natriuretic Peptide 06010 pg/mL (0-125) H Total Protein 6.8 G/DL (6.4-8.2) Albumin 2.9 G/DL (3.4-5.0) L Globulin 3.9 g/dL Albumin/Globulin Ratio 0.7 (1.0-2.7) L Test 09/20/20 06:35 POC Whole Blood Glucose 101 MG/DL (74-106) Current Medications Medications (Trade) Dose Ordered Sig/[place] Route PRN Reason Start Time Stop Time Status Last Admin Dose Admin Acetaminophen (Tylenol) 500 mg Q4H PRN ORAL Mild Pain (Pain Scale 1-3) 09/18/20 08:30 10/18/20 08:29 09/19/20 22:37 Acetaminophen (Tylenol) 650 mg Q4H PRN ORAL FEVER 08/30/20 23:45 09/29/20 23:44 Calcium Acetate (Phoslo) 667 mg TIAC ORAL 09/08/20 11:30 12/07/20 11:29 09/20/20 06:36 Chlorhexidine Gluconate (Josiane-Hex 2%) 1 applic DAILY@1999 TOPIC 09/06/20 20:00 12/05/20 19:59 09/19/20 22:00 Dextrose (Dextrose 50%) 25 ml Q30M PRN IV Hypoglycemia 08/30/20 23:45 11/28/20 23:44 Dextrose (Dextrose 50%) 50 ml Q30M PRN IV Hypoglycemia 08/30/20 23:45 11/28/20 23:44 Epoetin Shlomo (Epoetin Shlomo(ESRD on dialysis)) 10,000 unit TUE-TUE-TUE SUBQ 09/08/20 21:00 12/07/20 20:59 09/19/20 22:01 Folic Acid (Folate) 3 mg DAILY ORAL 09/02/20 09:00 10/02/20 08:59 09/19/20 08:49 Heparin Sodium (Porcine) (Heparin 5000 units/ml) 5,000 units EVERY 12 HOURS SUBQ 08/31/20 09:00 10/15/20 08:59 09/19/20 22:01 Insulin Aspart (NovoLOG) BEFORE MEALS AND HS SUBQ 08/31/20 06:30 11/29/20 06:29 09/19/20 17:47 Levothyroxine Sodium (Synthroid) 100 mcg DAILY@0630 ORAL 09/02/20 06:30 10/02/20 06:29 09/20/20 06:36 Metoclopramide HCl (Reglan) 5 mg THREE TIMES A DAY ORAL 08/31/20 13:00 09/30/20 12:59 09/19/20 17:48 Ondansetron HCl (Zofran) 4 mg Q6H PRN IVP Nausea & Vomiting 08/30/20 23:45 09/29/20 23:44 Pantoprazole (Protonix) 40 mg EVERY 12 HOURS ORAL 08/31/20 21:00 09/30/20 20:59 09/19/20 22:00 Polyethylene Glycol (Miralax) 17 gm DAILYPRN PRN ORAL Constipation 08/30/20 23:45 09/29/20 23:44 Promethazine HCl/ Codeine (Phenergan with Codeine) 5 ml Q6H PRN ORAL cough 08/30/20 23:45 09/29/20 23:44 Theophylline (Theophylline) 80 mg BID ORAL 09/13/20 18:00 12/08/20 13:59 09/19/20 17:47 Dean Hand MD Sep 20, 2020 08:52
--- NOTE | 2020-09-20 08:58 | General Progress Note ---
Subjective ROS Limited/Unobtainable: Yes Allergies: Coded Allergies: No Known Allergies (Unverified , 10/10/19) Objective Last 24 Hour Vital Signs Date Time Temp Pulse Resp B/P (MAP) Pulse Ox O2 Delivery O2 Flow Rate FiO2 09/20/20 04:00 98.1 79 20 114/71 (85) 96 09/20/20 04:00 71 09/20/20 00:00 98.1 84 22 123/55 (77) 96 09/20/20 00:00 82 09/19/20 23:07 97.3 09/19/20 21:00 Nasal Cannula 2.0 09/19/20 20:13 80 20 98 Nasal Cannula 2.0 28 09/19/20 20:13 98 Nasal Cannula 2.0 28 09/19/20 20:00 82 09/19/20 20:00 97.3 77 18 116/46 (69) 98 09/19/20 16:00 72 09/19/20 16:00 97.3 75 19 127/79 (95) 95 09/19/20 12:00 76 09/19/20 12:00 97.4 82 20 130/76 (94) 95 09/19/20 09:00 Nasal Cannula 2.0 Intake and Output 09/19/20 09/20/20 19:00 07:00 Intake Total 500 ml 200 ml Output Total 3000 ml Balance 500 ml -2800 ml Intake Oral 500 ml 200 ml Hemodialysis UF 3000 ml # Voids 2 2 # Bowel Movements 3 1 Laboratory Tests 09/19/20 14:45: POC Whole Blood Glucose 193H 09/19/20 17:37: POC Whole Blood Glucose 213H 09/19/20 22:12: POC Whole Blood Glucose 137H 09/20/20 05:20: White Blood Count 9.5, Red Blood Count 2.90L, Hemoglobin 8.7L, Hematocrit 27.3L, Mean Corpuscular Volume 94, Mean Corpuscular Hemoglobin 30.0, Mean Corpuscular Hemoglobin Concent 32.0, Red Cell Distribution Width 23.3H, Platelet Count 129L, Mean Platelet Volume 7.8, Neutrophils (%) (Auto) 77.4H, Lymphocytes (%) (Auto) 9.2L, Monocytes (%) (Auto) 9.8, Eosinophils (%) (Auto) 2.5, Basophils (%) (Auto) 1.2, Sodium Level 136, Potassium Level 4.5, Chloride Level 100, Carbon Dioxide Level 25, Anion Gap 11, Blood Urea Nitrogen 69H, Creatinine 5.5H, Estimat Glomerular Filtration Rate 7.7, Glucose Level 86, Calcium Level 8.2L, Phosphorus Level 3.6, Magnesium Level 2.6H, Total Bilirubin 0.9, Aspartate Amino Transf (AST/SGOT) 28, Alanine Aminotransferase (ALT/SGPT) 20, Alkaline Phosphatase 226H , C-Reactive Protein, Quantitative 15.2H, Pro-B-Type Natriuretic Peptide 62182T, Total Protein 6.8, Albumin 2.9L, Globulin 3.9, Albumin/Globulin Ratio 0.7L 09/20/20 06:35: POC Whole Blood Glucose 101 Height (Feet): 5 Height (Inches): 10.00 Weight (Pounds): 218 Assessment/Plan Problem List: (1) Anemia ICD Codes: D64.9 - Anemia, unspecified SNOMED: 969882681 (2) Ulcers of both lower legs ICD Codes: L97.919 - Non-pressure chronic ulcer of unspecified part of right lower leg with unspecified severity; L97.929 - Non-pressure chronic ulcer of unspecified part of left lower leg with unspecified severity SNOMED: 48099219, 512099144 (3) Open wounds involving multiple regions of lower extremity ICD Codes: S81.809A - Unspecified open wound, unspecified lower leg, initial encounter SNOMED: 411129074 (4) Pneumonia ICD Codes: J18.9 - Pneumonia, unspecified organism SNOMED: 281917413 (5) History of hypertension ICD Codes: Z86.79 - Personal history of other diseases of the circulatory system SNOMED: 640859203 (6) Diabetes mellitus ICD Codes: E11.9 - Type 2 diabetes mellitus without complications SNOMED: 50492299 (7) Renal failure (ARF), acute on chronic ICD Codes: N17.9 - Acute kidney failure, unspecified; N18.9 - Chronic kidney disease, unspecified SNOMED: 898345038 (8) Hyperkalemia ICD Codes: E87.5 - Hyperkalemia SNOMED: 29783204 (9) CAD (coronary artery disease) ICD Codes: I25.10 - Atherosclerotic heart disease of [place] coronary artery without angina pectoris SNOMED: 04308645 (10) Hypothyroidism ICD Codes: E03.9 - Hypothyroidism, unspecified SNOMED: 56163014 (11) Cardiac left ventricular ejection fraction greater than 40 percent ICD Codes: R94.30 - Abnormal result of cardiovascular function study, unspecified SNOMED: 536990017 (12) Grade I diastolic dysfunction ICD Codes: I51.9 - Heart disease, unspecified SNOMED: 6914206 Status: progressing, unchanged Assessment/Plan: pleural effusion s/p thoracocentesis no pneumothrax renal failure prn supportive rx reviewed chart cad check Tj Muller MD Sep 20, 2020 08:58
--- NOTE | 2020-09-20 09:23 | General Progress Note ---
Subjective Allergies: Coded Allergies: No Known Allergies (Unverified , 10/10/19) All Systems: reviewed and negative except above Subjective events noted - interval notes reviewed glucose values are mostly stable except one elevated values yesterday Item Value Date Time Bedside Blood Glucose 101 mg/dl 09/20/20 0630 Bedside Blood Glucose 137 mg/dl H 09/19/20 2100 Bedside Blood Glucose 213 mg/dl H 09/19/20 1747 Bedside Blood Glucose 193 mg/dl H 09/19/20 1447 Bedside Blood Glucose 109 mg/dl 09/19/20 0630 Objective Last 24 Hour Vital Signs Date Time Temp Pulse Resp B/P (MAP) Pulse Ox O2 Delivery O2 Flow Rate FiO2 09/20/20 04:00 98.1 79 20 114/71 (85) 96 09/20/20 04:00 71 09/20/20 00:00 98.1 84 22 123/55 (77) 96 09/20/20 00:00 82 09/19/20 23:07 97.3 09/19/20 21:00 Nasal Cannula 2.0 09/19/20 20:13 80 20 98 Nasal Cannula 2.0 28 09/19/20 20:13 98 Nasal Cannula 2.0 28 09/19/20 20:00 82 09/19/20 20:00 97.3 77 18 116/46 (69) 98 09/19/20 16:00 72 09/19/20 16:00 97.3 75 19 127/79 (95) 95 09/19/20 12:00 76 09/19/20 12:00 97.4 82 20 130/76 (94) 95 Intake and Output 09/19/20 09/20/20 19:00 07:00 Intake Total 500 ml 200 ml Output Total 3000 ml Balance 500 ml -2800 ml Intake Oral 500 ml 200 ml Hemodialysis UF 3000 ml # Voids 2 2 # Bowel Movements 3 1 Laboratory Tests 09/19/20 14:45: POC Whole Blood Glucose 193H 09/19/20 17:37: POC Whole Blood Glucose 213H 09/19/20 22:12: POC Whole Blood Glucose 137H 09/20/20 05:20: White Blood Count 9.5, Red Blood Count 2.90L, Hemoglobin 8.7L, Hematocrit 27.3L, Mean Corpuscular Volume 94, Mean Corpuscular Hemoglobin 30.0, Mean Corpuscular Hemoglobin Concent 32.0, Red Cell Distribution Width 23.3H, Platelet Count 129L, Mean Platelet Volume 7.8, Neutrophils (%) (Auto) 77.4H, Lymphocytes (%) (Auto) 9.2L, Monocytes (%) (Auto) 9.8, Eosinophils (%) (Auto) 2.5, Basophils (%) (Auto) 1.2, Sodium Level 136, Potassium Level 4.5, Chloride Level 100, Carbon Dioxide Level 25, Anion Gap 11, Blood Urea Nitrogen 69H, Creatinine 5.5H, Estimat Glomerular Filtration Rate 7.7, Glucose Level 86, Calcium Level 8.2L, Phosphorus Level 3.6, Magnesium Level 2.6H, Total Bilirubin 0.9, Aspartate Amino Transf (AST/SGOT) 28, Alanine Aminotransferase (ALT/SGPT) 20, Alkaline Phosphatase 226H , C-Reactive Protein, Quantitative 15.2H, Pro-B-Type Natriuretic Peptide 63101T, Total Protein 6.8, Albumin 2.9L, Globulin 3.9, Albumin/Globulin Ratio 0.7L 09/20/20 06:35: POC Whole Blood Glucose 101 Height (Feet): 5 Height (Inches): 10.00 Weight (Pounds): 218 General Appearance: no apparent distress Neck: normal alignment Cardiovascular: normal rate Respiratory/Chest: decreased breath sounds Abdomen: normal bowel sounds Objective Current Medications Medications (Trade) Dose Ordered Sig/[place] Route PRN Reason Start Time Stop Time Status Last Admin Dose Admin Acetaminophen (Tylenol) 500 mg Q4H PRN ORAL Mild Pain (Pain Scale 1-3) 09/18/20 08:30 10/18/20 08:29 09/19/20 22:37 Acetaminophen (Tylenol) 650 mg Q4H PRN ORAL FEVER 08/30/20 23:45 09/29/20 23:44 Calcium Acetate (Phoslo) 667 mg TIAC ORAL 09/08/20 11:30 12/07/20 11:29 09/20/20 06:36 Chlorhexidine Gluconate (Josiane-Hex 2%) 1 applic DAILY@1999 TOPIC 09/06/20 20:00 12/05/20 19:59 09/19/20 22:00 Dextrose (Dextrose 50%) 25 ml Q30M PRN IV Hypoglycemia 08/30/20 23:45 11/28/20 23:44 Dextrose (Dextrose 50%) 50 ml Q30M PRN IV Hypoglycemia 08/30/20 23:45 11/28/20 23:44 Epoetin Shlomo (Epoetin Shlomo(ESRD on dialysis)) 10,000 unit TUE-TUE-TUE SUBQ 09/08/20 21:00 12/07/20 20:59 09/19/20 22:01 Folic Acid (Folate) 3 mg DAILY ORAL 09/02/20 09:00 10/02/20 08:59 09/19/20 08:49 Heparin Sodium (Porcine) (Heparin 5000 units/ml) 5,000 units EVERY 12 HOURS SUBQ 08/31/20 09:00 10/15/20 08:59 09/19/20 22:01 Insulin Aspart (NovoLOG) BEFORE MEALS AND HS SUBQ 08/31/20 06:30 11/29/20 06:29 09/19/20 17:47 Levothyroxine Sodium (Synthroid) 100 mcg DAILY@0630 ORAL 09/02/20 06:30 10/02/20 06:29 09/20/20 06:36 Metoclopramide HCl (Reglan) 5 mg THREE TIMES A DAY ORAL 08/31/20 13:00 09/30/20 12:59 09/19/20 17:48 Ondansetron HCl (Zofran) 4 mg Q6H PRN IVP Nausea & Vomiting 08/30/20 23:45 09/29/20 23:44 Pantoprazole (Protonix) 40 mg EVERY 12 HOURS ORAL 08/31/20 21:00 09/30/20 20:59 09/19/20 22:00 Polyethylene Glycol (Miralax) 17 gm DAILYPRN PRN ORAL Constipation 08/30/20 23:45 09/29/20 23:44 Promethazine HCl/ Codeine (Phenergan with Codeine) 5 ml Q6H PRN ORAL cough 08/30/20 23:45 09/29/20 23:44 Theophylline (Theophylline) 80 mg BID ORAL 09/13/20 18:00 12/08/20 13:59 09/19/20 17:47 Assessment/Plan Problem List: (1) Renal failure (ARF), acute on chronic ICD Codes: N17.9 - Acute kidney failure, unspecified; N18.9 - Chronic kidney disease, unspecified SNOMED: 534828982 (2) CAD (coronary artery disease) ICD Codes: I25.10 - Atherosclerotic heart disease of [place] coronary artery without angina pectoris SNOMED: 62084997 (3) Diabetes mellitus ICD Codes: E11.9 - Type 2 diabetes mellitus without complications SNOMED: 03889258 (4) Left bundle branch block (LBBB) ICD Codes: I44.7 - Left bundle-branch block, unspecified SNOMED: 66298795 (5) Hypothyroidism ICD Codes: E03.9 - Hypothyroidism, unspecified SNOMED: 17442061 Status: progressing, unchanged Assessment/Plan: continue Novolog sliding scale ac / hs continue LT4 100 mcg daily repeat thyroid function in 2-3 weeks Jake Alexander MD Sep 20, 2020 09:23
[2020-09-20] MEDS: Theophylline 80mg/15ml ORAL SCH (10:06)
[2020-09-20] MEDS: Heparin 5000 units/ml inj SUBQ SCH (10:08)
[2020-09-20 12:00] VITALS: BP 113/67
--- NOTE | 2020-09-20 15:06 | Cardiac Electrophysiology PN ---
Assessment/Plan Assessment/Plan 1. Volume overload due to renal failure Echo showed EF of 50%. On HD after PermCath placement 09/05. 2. Left bundle-branch block. 3. Diastolic dysfunction. EF 50%. 4. Hyperkalemia. Got Kayexalate and on HD by Dr. Severino. 5. Diabetic nephropathy. 6. Renal failure. BUN/Cr 81/3.8 S/P PermCath and dialysis 7. Hypothyroidism. 8. Iron-deficiency anemia. 9. Right pleural effusion. S/P 800cc Right thoracentesis 09/03/20 10. 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 DC to [facility] pending today Objective Last 24 Hour Vital Signs Date Time Temp Pulse Resp B/P (MAP) Pulse Ox O2 Delivery O2 Flow Rate FiO2 09/20/20 12:00 97.5 75 20 113/67 (82) 98 09/20/20 12:00 80 09/20/20 09:00 Nasal Cannula 2.0 09/20/20 08:00 78 09/20/20 08:00 97.8 78 20 100/69 (79) 94 09/20/20 04:00 98.1 79 20 114/71 (85) 96 09/20/20 04:00 71 09/20/20 00:00 98.1 84 22 123/55 (77) 96 09/20/20 00:00 82 09/19/20 23:07 97.3 09/19/20 21:00 Nasal Cannula 2.0 09/19/20 20:13 80 20 98 Nasal Cannula 2.0 28 09/19/20 20:13 98 Nasal Cannula 2.0 28 09/19/20 20:00 82 09/19/20 20:00 97.3 77 18 116/46 (69) 98 09/19/20 16:00 72 09/19/20 16:00 97.3 75 19 127/79 (95) 95 Intake and Output 09/19/20 09/20/20 19:00 07:00 Intake Total 500 ml 200 ml Output Total 3000 ml Balance 500 ml -2800 ml Intake Oral 500 ml 200 ml Hemodialysis UF 3000 ml # Voids 2 2 # Bowel Movements 3 1 Laboratory Tests Test 09/19/20 17:37 09/19/20 22:12 09/20/20 05:20 09/20/20 06:35 POC Whole Blood Glucose 213 MG/DL (74-106) H 137 MG/DL (74-106) H 101 MG/DL (74-106) White Blood Count 9.5 K/UL (4.8-10.8) Red Blood Count 2.90 M/UL (4.20-5.40) L Hemoglobin 8.7 G/DL (12.0-16.0) L Hematocrit 27.3 % (37.0-47.0) L Mean Corpuscular Volume 94 FL (80-99) Mean Corpuscular Hemoglobin 30.0 PG (27.0-31.0) Mean Corpuscular Hemoglobin Concent 32.0 G/DL (32.0-36.0) Red Cell Distribution Width 23.3 % (11.6-14.8) H Platelet Count 129 K/UL (150-450) L Mean Platelet Volume 7.8 FL (6.5-10.1) Neutrophils (%) (Auto) 77.4 % (45.0-75.0) H Lymphocytes (%) (Auto) 9.2 % (20.0-45.0) L Monocytes (%) (Auto) 9.8 % (1.0-10.0) Eosinophils (%) (Auto) 2.5 % (0.0-3.0) Basophils (%) (Auto) 1.2 % (0.0-2.0) Sodium Level 136 MMOL/L (136-145) Potassium Level 4.5 MMOL/L (3.5-5.1) Chloride Level 100 MMOL/L (98-107) Carbon Dioxide Level 25 MMOL/L (21-32) Anion Gap 11 mmol/L (5-15) Blood Urea Nitrogen 69 mg/dL (7-18) H Creatinine 5.5 MG/DL (0.55-1.30) H Estimat Glomerular Filtration Rate 7.7 mL/min (>60) Glucose Level 86 MG/DL (74-106) Calcium Level 8.2 MG/DL (8.5-10.1) L Phosphorus Level 3.6 MG/DL (2.5-4.9) Magnesium Level 2.6 MG/DL (1.8-2.4) H Total Bilirubin 0.9 MG/DL (0.2-1.0) Aspartate Amino Transf (AST/SGOT) 28 U/L (15-37) Alanine Aminotransferase (ALT/SGPT) 20 U/L (12-78) Alkaline Phosphatase 226 U/L (46-116) H C-Reactive Protein, Quantitative 15.2 mg/dL (0.00-0.90) H Pro-B-Type Natriuretic Peptide 99182 pg/mL (0-125) H Total Protein 6.8 G/DL (6.4-8.2) Albumin 2.9 G/DL (3.4-5.0) L Globulin 3.9 g/dL Albumin/Globulin Ratio 0.7 (1.0-2.7) L Test 09/20/20 11:49 POC Whole Blood Glucose 101 MG/DL (74-106) Objective HEAD AND NECK: No JVD. LUNGS: Coarse rhonchi, bibasilar rales.Right chest PermCath CARDIOVASCULAR: Regular S1 and S2 with no gallop. ABDOMEN: Soft. EXTREMITIES: Bilateral 2+ pitting edema and bandage on both legs Sina Paulson MD Sep 20, 2020 15:06
--- NOTE | 2020-09-20 15:54 | Nephrology Progress Note ---
Assessment/Plan Problem List: (1) Renal failure (ARF), acute on chronic (2) Hyperkalemia (3) Hypothyroidism (4) Acute on chronic diastolic (congestive) heart failure (5) Diabetic nephropathy (6) Pneumonia Assessment: Leukocytosis, abnormal chest x-ray (7) Anemia Assessment 1) Renal failure (ARF), acute on chronic (2) Diabetes mellitus (3) Hypoglycemia (4) Hyperkalemia (5) Diabetic nephropathy (6) H/o Pleural effusion (7) Morbid obesity (8) Low Iron Anemia (9) HypoThyroidism Plan September 20: Late note entry. Patient was dialyzed yesterday. Today's labs are reviewed. Medication list reviewed. Stable from renal standpoint of view. Continue outpatient dialysis upon discharge. September 19: Patient due for dialysis today. No blood work drawn today. Medication list reviewed. Stable from renal standpoint of view. September 18: Last dialysis September 16. Next dialysis September 19 tomorrow. Status quo. Labs reviewed. Continue same management. September 17: Dialyzed yesterday. No labs drawn today. Due due for dialysis tomorrow. Continue per current management. September 16: Due for dialysis today. Labs reviewed. Continue per consultants. September 15: Patient was dialyzed yesterday. Status quo. Labs reviewed. Next hemodialysis tomorrow. September 14: Patient was dialyzed September 12. Due for dialysis today. Labs reviewed. Continue per consultants. September 13: Patient was dialyzed yesterday. Medication reviewed. Labs reviewed. White blood cells rising. Currently on dexamethasone IV for COVID-19 will dialyze again tomorrow September 12: Patient due for dialysis and ultrafiltration today. Labs reviewed. Medication list reviewed. Continue per consultants. September 11: Patient dialyzed yesterday. Labs reviewed. Patient is now COVID- 19 test positive. On isolation. Will dialyze again tomorrow. Continue per consultants. September 10: Patient due for dialysis and ultrafiltration today. Labs reviewed. And medication list reviewed. September 09: Patient was dialyzed yesterday. Due for dialysis and ultrafiltration tomorrow. Will start theophylline for although lumbar diet and also improvement of the heart rate. Recheck TSH in a.m. Continue as is. DC Chan catheter. September 08: Patient due for dialysis and ultrafiltration today. Labs reviewed. PhosLo given. Continue as is. September 07: Patient was dialyzed 2 days in a row. Ultra filtrated 3 L a day. Patient continues to be edematous however much less. Will dialyze again tomorrow with ultrafiltration. Will monitor renal parameters. September 06: Patient was dialyzed yesterday. Ultrafiltration was done. Patient remains edematous. Will do another dialysis and aim 3 L fluid removal as tolerates. Discontinue IV Lasix and oral hydralazine. Will adjust blood pressure medication as needed. Discussed with RN, antibiotics intravenously if possible should be changed to oral since there is no IV line available. 1 dose of Venofer 200 mg ordered to be given during dialysis. Subcutaneous Epogen ordered for anemia. September 05: New 24-hour urine suggestive of creatinine clearance of 3. Patient due for insertion of dialysis catheter. Hemodialysis and ultrafiltration after insertion of catheter. September 04: New 24-hour urine test is in process. Discussed with RN. Patient was short of breath overnight. ABG ordered. 1 dose of Zaroxolyn ordered. Patient has fluid overload, and need ultrafiltration. Blood cultures negative. Leukocytosis resolved. Will order placement of permacath and dialysis and ultrafiltration. September 03: The 24-hour urine results appears to be an error in view of total volume compared to intake and output records. Today's labs reviewed. Serum creatinine higher. Talk to the nursing charge of the floor and will order another 24-hour urine collection. Meanwhile continue per ID treatment for UTI and leukocytosis. Dexamethasone on the medication list was questioned. Patient may require dialysis if continues to have worsening renal parameters. September 02: Consent for dialysis catheter is taken. Catheter placement deferred due to leukocytosis. Surveillance blood culture ordered. Urine culture ordered. Blood pressure medication adjusted. 24-hour urine for creatinine clearance and total protein pending. Previously: Chan Cath 24 H CrCl and total protein ordered Off IV fluids, on IV Lasix Adjust BP meds Previous 2D echocardiogram ejection fraction is reported to 50% Previous Kidney ultrasound noted. Current kidney ultrasound results below Anemia work-up As needed Kayexalate for high potassium Keep blood pressure and blood sugar in check Monitor renal parameters Requires HD treatment [facility] KIDNEY IMPRESSION: 1. Ascites. 2. Bilateral pleural effusions. 3. Complex right renal cysts of uncertain etiology. This complex cyst is unchanged from the study of 01/12/2020. 4. Mildly atrophic right kidney. 5. Magnetic resonance imaging of the abdomen with gadolinium administration is advised for further evaluation of complex right renal cyst. Subjective ROS Limited/Unobtainable: No Constitutional: Reports: no symptoms Objective Objective Last 24 Hour Vital Signs Date Time Temp Pulse Resp B/P (MAP) Pulse Ox O2 Delivery O2 Flow Rate FiO2 09/20/20 12:00 97.5 75 20 113/67 (82) 98 09/20/20 12:00 80 09/20/20 09:00 Nasal Cannula 2.0 09/20/20 08:00 78 09/20/20 08:00 97.8 78 20 100/69 (79) 94 09/20/20 04:00 98.1 79 20 114/71 (85) 96 09/20/20 04:00 71 09/20/20 00:00 98.1 84 22 123/55 (77) 96 09/20/20 00:00 82 09/19/20 23:07 97.3 09/19/20 21:00 Nasal Cannula 2.0 09/19/20 20:13 80 20 98 Nasal Cannula 2.0 28 09/19/20 20:13 98 Nasal Cannula 2.0 28 09/19/20 20:00 82 09/19/20 20:00 97.3 77 18 116/46 (69) 98 09/19/20 16:00 72 09/19/20 16:00 97.3 75 19 127/79 (95) 95 Intake and Output 09/19/20 09/20/20 19:00 07:00 Intake Total 500 ml 200 ml Output Total 3000 ml Balance 500 ml -2800 ml Intake Oral 500 ml 200 ml Hemodialysis UF 3000 ml # Voids 2 2 # Bowel Movements 3 1 Laboratory Tests 09/19/20 17:37: POC Whole Blood Glucose 213H 09/19/20 22:12: POC Whole Blood Glucose 137H 09/20/20 05:20: White Blood Count 9.5, Red Blood Count 2.90L, Hemoglobin 8.7L, Hematocrit 27.3L, Mean Corpuscular Volume 94, Mean Corpuscular Hemoglobin 30.0, Mean Corpuscular Hemoglobin Concent 32.0, Red Cell Distribution Width 23.3H, Platelet Count 129L, Mean Platelet Volume 7.8, Neutrophils (%) (Auto) 77.4H, Lymphocytes (%) (Auto) 9.2L, Monocytes (%) (Auto) 9.8, Eosinophils (%) (Auto) 2.5, Basophils (%) (Auto) 1.2, Sodium Level 136, Potassium Level 4.5, Chloride Level 100, Carbon Dioxide Level 25, Anion Gap 11, Blood Urea Nitrogen 69H, Creatinine 5.5H, Estimat Glomerular Filtration Rate 7.7, Glucose Level 86, Calcium Level 8.2L, Phosphorus Level 3.6, Magnesium Level 2.6H, Total Bilirubin 0.9, Aspartate Amino Transf (AST/SGOT) 28, Alanine Aminotransferase (ALT/SGPT) 20, Alkaline Phosphatase 226H , C-Reactive Protein, Quantitative 15.2H, Pro-B-Type Natriuretic Peptide 44359H, Total Protein 6.8, Albumin 2.9L, Globulin 3.9, Albumin/Globulin Ratio 0.7L 09/20/20 06:35: POC Whole Blood Glucose 101 09/20/20 11:49: POC Whole Blood Glucose 101 Height (Feet): 5 Height (Inches): 10.00 Weight (Pounds): 218 Objective No change Jay Severino MD Sep 20, 2020 15:54
--- NOTE | 2020-09-20 18:54 | Pulmonology Progress Note ---
Subjective ROS Limited/Unobtainable: No Interval Events: no new events Allergies: Coded Allergies: No Known Allergies (Unverified , 10/10/19) All Systems: reviewed and negative except above Objective Last 24 Hour Vital Signs Date Time Temp Pulse Resp B/P (MAP) Pulse Ox O2 Delivery O2 Flow Rate FiO2 09/20/20 12:00 97.5 75 20 113/67 (82) 98 09/20/20 12:00 80 09/20/20 09:00 Nasal Cannula 2.0 09/20/20 08:00 78 09/20/20 08:00 97.8 78 20 100/69 (79) 94 09/20/20 04:00 98.1 79 20 114/71 (85) 96 09/20/20 04:00 71 09/20/20 00:00 98.1 84 22 123/55 (77) 96 09/20/20 00:00 82 09/19/20 23:07 97.3 09/19/20 21:00 Nasal Cannula 2.0 09/19/20 20:13 80 20 98 Nasal Cannula 2.0 28 09/19/20 20:13 98 Nasal Cannula 2.0 28 09/19/20 20:00 82 09/19/20 20:00 97.3 77 18 116/46 (69) 98 Intake and Output 09/19/20 09/20/20 19:00 07:00 Intake Total 500 ml 200 ml Output Total 3000 ml Balance 500 ml -2800 ml Intake Oral 500 ml 200 ml Hemodialysis UF 3000 ml # Voids 2 2 # Bowel Movements 3 1 General Appearance: WD/WN HEENT: normocephalic, atraumatic Respiratory: chest wall non-tender, lungs clear, normal breath sounds Cardiovascular: normal peripheral pulses, normal rate Abdomen: normal bowel sounds, soft, non tender, no scars Extremities: no cyanosis Skin: no rash Neurologic: soaping machine back tender II-XII grossly normal Lymphatic: no neck adenopathy Laboratory Tests 09/19/20 22:12: POC Whole Blood Glucose 137H 09/20/20 05:20: White Blood Count 9.5, Red Blood Count 2.90L, Hemoglobin 8.7L, Hematocrit 27.3L, Mean Corpuscular Volume 94, Mean Corpuscular Hemoglobin 30.0, Mean Corpuscular Hemoglobin Concent 32.0, Red Cell Distribution Width 23.3H, Platelet Count 129L, Mean Platelet Volume 7.8, Neutrophils (%) (Auto) 77.4H, Lymphocytes (%) (Auto) 9.2L, Monocytes (%) (Auto) 9.8, Eosinophils (%) (Auto) 2.5, Basophils (%) (Auto) 1.2, Sodium Level 136, Potassium Level 4.5, Chloride Level 100, Carbon Dioxide Level 25, Anion Gap 11, Blood Urea Nitrogen 69H, Creatinine 5.5H, Estimat Glomer ular Filtration Rate 7.7, Glucose Level 86, Calcium Level 8.2L, Phosphorus Level 3.6, Magnesium Level 2.6H, Total Bilirubin 0.9, Aspartate Amino Transf (AST/SGOT) 28, Alanine Aminotransferase (ALT/SGPT) 20, Alkaline Phosphatase 226H , C-Reactive Protein, Quantitative 15.2H, Pro-B-Type Natriuretic Peptide 65106P, Total Protein 6.8, Albumin 2.9L, Globulin 3.9, Albumin/Globulin Ratio 0.7L 09/20/20 06:35: POC Whole Blood Glucose 101 09/20/20 11:49: POC Whole Blood Glucose 101 Assessment/Plan Problems: (1) 2019 novel coronavirus disease (COVID-19) (2) Acute on chronic diastolic (congestive) heart failure (3) Gout (4) Renal failure (ARF), acute on chronic (5) Diabetes mellitus (6) Left bundle branch block (LBBB) (7) Cardiac left ventricular ejection fraction greater than 40 percent (8) Grade I diastolic dysfunction (9) History of hypertension Assessment/Plan COVID negative on 09/17 US of chest for thoracentesis, because of persistent leukocytosis, 450 cc removed on09/17. doing better COVID positive, repeat again today sitting up in the chair f/u ID recommendations f/u inflammatory markers. O2 titrate to keep sat > 92%, currently down to O2 via [place] dc planning Tiana Cool MD Sep 20, 2020 18:54
--- NOTE | 2020-09-22 11:22 | Discharge Summary ---
Discharge Summary Discharge Summary _ DATE OF ADMISSION: 08/30/2020 DATE OF DISCHARGE: 09/20/2020 DISCHARGED BY: Dr King REASON FOR ADMISSION: 70 years old female with past medical history of hypertension, congestive heart failure, diabetes mellitus, recent COVID-19 , diagnosed 9 days ago, presented to emergency room for evaluation due to shortness of breath. Patient reported being short of breath for the last few days. Upon arrival of paramedics at home she was saturating 87% on room air; patient was placed on nonrebreather mask. Patient denied fever or chills. Patient denied chest pain. Upon evaluation in ED pulse oximetry was 100% on NRM ; patient was mildly tachycardic with heart rate 106 , blood pressure was 140/102 , no fevers. Laboratory work-up revealed significant leukocytosis WBC 19, hemoglobin 9.5 , hematocrit 31, platelet count 139. Sodium 141, potassium 5.4 chloride 109. BUN 66, creatinine 3.2. Glucose 90. CRP 11.8 Troponin 0.037, pro BNP 51955. Stable LFT. Rapid COVID-19 was negative. EKG revealed sinus rhythm with left bundle branch block Chest x-ray revealed patchy ill-defined opacity in the right upper lobe. In emergency department patient received Lasix, empiric antibiotic and admitted for further management. CONSULTANTS: drier transfer car operator Dr. Murcia pulmonary Dr. Cool ID specialist Dr. Etienne drying oven attendant Dr. Armstrong retail interior designer Dr. Severino surgery Dr. Tellez train control technician Dr. Landers [facility] COURSE: Patient admitted to telemetry floor. Supplemental oxygen provided and titrated to keep pulse oximetry above 92% ; pulmonary toilet provided. Patient was followed-up with chest x-ray. Patient started on empiric antibiotic as per ID specialist recommendation. Rapid COVID-19 09/10 was positive; COVID-19 by PCR was negative. Patient had a prior history to Covid 19 two months ago. Initial leukocytosis resolved. Blood cultures were negative. Patient completed treatment for pneumonia. Patient was followed-up with chest x-ray. Patient undergone sound guided thoracentesis on 09/03 yielding 680 mL of clear yellow fluid. Fluid culture was negative. Fluid protein 1.4, glucose 188. Volumes and renal parameters were closely monitor. Electrolytes corrected as needed. Renal failure was not improvement, and retail interior designer recommended initiation of hemodialysis. Patient undergone placement of hemodialysis catheter on 1112 with chest x-ray documented successful placement. Patient started on hemodialysis as per retail interior designer recommendation. Echocardiogram revealed preserved ejection fraction of 50%.. Patient undergone another ultrasound-guided thoracentesis on 09/17 yielding another 450 mL of pleural fluid. Culture of pleural fluid was negative as well. Rapid COVID-19 prior to transfer was negative Blood sugar was managed as per drying oven attendant recommendation with sliding scale of insulin as needed diabetic diet and diabetic teaching provided. Hemoglobin A1c 7.4. Current dose of levothyroxine continued. Repeat thyroid function test in 3 weeks. Hemoglobin and hematocrit were closely monitored with goal to keep hemoglobin above 7. No evidence of hemolysis. Patient received Epogen and IV iron. DVT and GI prophylaxis provided. Patient presented with bilateral lower extremity open wounds and necrotic ulcers. Wound care provided as per surgeon recommendation. Continue wound care at the accepting facility. Supportive care provided. Patient clinically stabilized and was ready for transfer to acute rehabilitation center at [facility] for further management. FINAL DIAGNOSES: Severe sepsis Acute hypoxemic respiratory failure requiring nonrebreather mask-resolved Congestive heart failure with diastolic dysfunction Pneumonia , s/p treatment Fluid overload due to acute renal failure Acute on chronic renal failure, requiring initiation of hemodialysis Right pleural effusion, transudative Status post thoracentesis x2 Right arm and right leg cellulitis -improving Bilateral lower extremity necrotic ulcers Hypertension Moderate pulmonary hypertension Left bundle branch block Moderate mitral regurgitation Diabetes mellitus Diabetic nephropathy Recent Covid infection/two months ago Anemia Folate deficiency Hypothyroidism DISCHARGE MEDICATIONS: See Medication Reconciliation list. DISCHARGE INSTRUCTIONS: Patient was discharged to acute rehabilitation unit at [facility] for further rehabilitation. I have been assigned to dictate discharge summary for this account. Jenna García NP Sep 22, 2020 11:22
== END 2020-09-20 14:18 | DRG 871 ==
LOC: EDBD 17:49 → EDBEDREQ 18:36 → EMR 19:41 → 2E 19:53 → EDBEDREQ 22:21 → 2E 08-31 00:25
PROC: 0W993ZZ Drainage of Right Pleural Cavity, Percutaneous Approach (ICD-10-PCS; principal; 2020-09-03)
PROC: 5A1D70Z Performance of Urinary Filtration, Intermittent, Less than 6 Hours Per Day (ICD-10-PCS; 2020-09-05)
PROC: 0JH63XZ Insertion of Tunneled Vascular Access Device into Chest Subcutaneous Tissue and Fascia, Percutaneous Approach (ICD-10-PCS; 2020-09-05)
PROC: B513ZZA Fluoroscopy of Right Jugular Veins, Guidance (ICD-10-PCS; 2020-09-05)
PROC: 05HM33Z Insertion of Infusion Device into Right Internal Jugular Vein, Percutaneous Approach (ICD-10-PCS; 2020-09-05)
PROC: 0W993ZZ Drainage of Right Pleural Cavity, Percutaneous Approach (ICD-10-PCS; 2020-09-17)
DX: A41.9 Sepsis, unspecified organism (principal); J18.9 Pneumonia, unspecified organism; J96.01 Acute respiratory failure with hypoxia; I50.33 Acute on chronic diastolic (congestive) heart failure; N39.0 Urinary tract infection, site not specified; E46 Unspecified protein-calorie malnutrition; N17.9 Acute kidney failure, unspecified; I13.0 Hypertensive heart and chronic kidney disease with heart failure and stage 1 through stage 4 chronic kidney disease, or unspecified chronic kidney disease; J90 Pleural effusion, not elsewhere classified; L03.111 Cellulitis of right axilla; L03.115 Cellulitis of right lower limb; R18.8 Other ascites; R65.20 Severe sepsis without septic shock; D64.9 Anemia, unspecified; I27.20 Pulmonary hypertension, unspecified; D52.9 Folate deficiency anemia, unspecified; N18.9 Chronic kidney disease, unspecified; E11.22 Type 2 diabetes mellitus with diabetic chronic kidney disease; E11.21 Type 2 diabetes mellitus with diabetic nephropathy; E66.01 Morbid (severe) obesity due to excess calories; Z68.31 Body mass index [BMI] 31.0-31.9, adult; Z86.19 Personal history of other infectious and parasitic diseases; E87.5 Hyperkalemia; I25.10 Atherosclerotic heart disease of native coronary artery without angina pectoris; I44.7 Left bundle-branch block, unspecified; K74.60 Unspecified cirrhosis of liver; D69.6 Thrombocytopenia, unspecified; E11.649 Type 2 diabetes mellitus with hypoglycemia without coma; E87.70 Fluid overload, unspecified
CPT/HCPCS: 36415; 36558; 71045; 74018; 76000; 76604; 76700; 76770; 76942; 80048; 80053; 80061; 80069; 80076; 81001; 81050; 82248; 82270; 82378; 82550; 82565; 82575; 82607; 82728; 82746; 82803; 82962; 82977; 83036; 83540; 83550; 83615; 83735; 83880; 84100; 84133; 84156; 84300; 84439; 84443; 84484; 84550; 85007; 85025; 85044; 85060; 85379; 85610; 85651; 85730; 86140; 86703; 86706; 86707; 86710; 86803; 87040; 87070; 87086; 87181; 87205; 88104; 89050; 89051; 93005; 93306; 93970; 94640; 94664; 96365; 96367; 96375; 99285; J0712; J1815; J7620; U0002